=== PATIENT | male | born 1960 | race African-American/Black ===

== ENCOUNTER 2016-12-31 09:46 | Day surgery (SDC) | payer MEDICARE ==
[2016-12-31] MEDS ORDERED: DIAZEPAM 5 MG TABLET ONE (09:55)
[2016-12-31] MEDS ORDERED: OXYCODONE-ACETAMINOPHEN 5-325 MG TABLET ONE (09:55)
[2016-12-31 10:24] LABS: HEMATOCRIT 48.1 % (37.9-51.0); HEMOGLOBIN 16.5 g/dL (13.5-17.0); HGB HCT DIFFERENCE 1.4; MEAN CORPUSCULAR HEMOGLOBIN 31.1 pg (27.0-33.4); MEAN CORPUSCULAR HGB CONC 34.2 g/dL (32.0-36.0); MEAN CORPUSCULAR VOLUME 91 fl (80-97); RED BLOOD COUNT 5.29 10^6/uL (4.35-5.55); WHITE BLOOD COUNT 5.5 10^3/uL (4.0-10.5)
[2016-12-31 10:38] LABS: BLOOD UREA NITROGEN 42 mg/dL (7-20); CALCIUM 8.6 mg/dL (8.4-10.2); CREATININE RESULT 12.36 mg/dL (0.52-1.25); GLUCOSE 81 mg/dL (75-110)
[2016-12-31 10:46] LABS: ANION GAP 19 (5-19); CARBON DIOXIDE 27 mmol/L (22-30); CHLORIDE 94 mmol/L (98-107); POTASSIUM 4.8 mmol/L (3.6-5.0); SODIUM 140.3 mmol/L (137-145)
[2016-12-31] MEDS ORDERED: MIDAZOLAM 2 MG/2 ML INJ ONE (11:00)
[2016-12-31] MEDS ORDERED: HEPARIN SOD (PORCINE) 5,000 UNIT/ML 1 ML SYRINGE ONE (11:01)
[2016-12-31] MEDS ORDERED: FENTANYL CITRATE INJ/PF 100 MCG/2 ML AMPUL ONE (11:01)
[2016-12-31] MEDS ORDERED: LIDOCAINE 0.5% INJ-PF (5 MG/ML) 50 ML SDV ONE (11:14)
--- NOTE | 2016-12-31 12:31 | PDOC H&P ---
General Chief Complaint: This patient was referred for improvement of the right arm AV fistula. Suboptimal dialysis has been noted recently. - Current Medications/Allergies Home Medications: B Complex & C No.20/Folic Acid [Renal Caps Softgel] 1 mg PO DAILY 08/06/14 Cinacalcet HCl [Sensipar 30 mg Tablet] 30 mg PO ACLUNCH 08/06/14 Clonidine HCl [Catapres 0.2 mg Tablet] 0.2 mg PO DAILY 08/06/14 Lisinopril 10 mg PO DAILY 08/06/14 Simvastatin 20 mg PO QHS 08/06/14 Vasacor 01/03/16 Allergies/Adverse Reactions: No Known Drug Allergies Allergy (Verified 09/28/13 18:03) Paper Tape Allergy (Unknown, Uncoded 09/28/13 18:03) DRY GAMBRO DIALYZERS Allergy (Uncoded 08/06/14 10:52) Past Medical History Cardiac Medical History: Reports: Hyperlipidema, Hypertension Denies: Coronary Artery Disease, Myocardial Infarction Pulmonary Medical History: Reports: Asthma - Hx of, Pneumonia - Hx of 09/2013 Denies: Bronchitis, Chronic Obstructive Pulmonary Disease (COPD) Neurological Medical History: Denies: Seizures Renal/ Medical History: Reports: End Stage Renal Disease Musculoskeltal Medical History: Denies: Arthritis Hematology: Denies: Anemia Past Surgical History Past Surgical History: Reports: Vascular Surgery - Right upper arm AV fistula Family History Family History: Reviewed & Not Pertinent Parental Family History Reviewed: No Children Family History Reviewed: No Sibling(s) Family History Reviewed.: No Social History Smoking Status: Current Every Day Smoker Frequency of Alcohol Use: None Hx Recreational Drug Use: No Hx Prescription Drug Abuse: No Physical Exam Vital Signs: Temp Pulse Resp BP Pulse Ox 98.6 F 72 18 147/75 H 98 12/31/16 10:00 12/31/16 12:06 12/31/16 10:00 12/31/16 10:00 12/31/16 10:00 Intake & Output 12/30/16 12/31/16 01/01/17 06:59 06:59 06:59 Weight 107.955 kg Additional comments: Constitutional: A well-developed well-nourished -[place] gentleman, much increased body mass index, gentleman. No acute distress. Eyes: Mucous membranes pink and moist, sclerae anicteric, pupils react normally. Respiratory: No shortness of breath or wheezing. Breath sounds are normal and equal. Cardiac: Heart sounds normal, no murmurs, no increased JVP. Extremities: Upper extremities shows normal range of movement and pulses. The right arm has a cephalic to brachial fistula which is aneurysmal. Bruit normal. Firm to palpation. Psychiatric: judgment, memory, insight seem normal. Mood is normal, appropriate and pleasant. Impression/Plan Impression: #1 malfunctioning arteriovenous fistula, right brachiocephalic. #2 end-stage renal disease on hemodialysis. #3 hypertension. Plan: This patient with a malfunctioning AV fistula is indicated for angiogram and possible angioplasty. The objective is prolonged useful function of the fistula.
--- NOTE | 2016-12-31 12:34 | Operative Report ---
Operative Report DATE OF SURGERY: 12/31/16 PREOPERATIVE DIAGNOSIS: #1 malfunctioning arteriovenous fistula, right brachiocephalic. #2 end-stage renal disease on hemodialysis. #3 hypertension. POSTOPERATIVE DIAGNOSIS: #1 malfunctioning arteriovenous fistula, right brachiocephalic. #2 end-stage renal disease on hemodialysis. #3 hypertension. OPERATION: #1 needle access into fistula. #2 angioplasty central venous. #3 angiogram and interpretation. SURGEON: CORNELIO YEH HYBRID CAR MECHANIC: none ANESTHESIA: Moderate Sedation TISSUE REMOVED OR ALTERED: None COMPLICATIONS: None ESTIMATED BLOOD LOSS: 2 mL INTRAOPERATIVE FINDINGS: Of a well-founded right arm brachiocephalic fistula.. A large caliber. A waist encountered at the right subclavian to innominate junction which is addressed by angioplasty with improved flow. The stenosis did not seem great no more than about 50% but the hemodynamic consequence was evidence in improvement in fistula function. PROCEDURE: PROCEDURE: After verifying the procedure and having obtained informed consent, the patient's right arm was prepared with Chlorhexidine and draped out with sterile linen. Local anesthesia infiltrated. Percutaneous access into the fistula ,[ antegrade], obtained about [10 cm] from the arteriovenous anastomosis using a 18-gauge needle. A 0.035 [place] wire was inserted, and over this, a 7 [place] short introducer was placed, this was followed by a [8-mm ] angioplasty balloon . Angioplasty was serially done from the innominate subclavian junction to the upper arm.. Inflating up to 14 atmospheres for a minute at a time.]. Completion angiogram demonstrated [satisfactory result]. The instrumentation was now withdrawn over hand-held pressure for 10 minutes. Dressings applied, procedure concluded. Exposure time: 1 minute Radiation: 83 breonna per centimeter squared Contrast: 25 mL of Isovue-M 300, low osmolality. DICTATING PHYSICIAN: CORNELIO CHESTER M.D. cc: CORNELIO CHESTER M.D. ([id number]) >>
--- NOTE | 2016-12-31 12:36 | PDOC DISCHARGE SUMMARY ---
Discharge Summary (SDC) - Discharge Final Diagnosis: #1 malfunctioning arteriovenous fistula, right brachiocephalic. #2 end-stage renal disease on hemodialysis. #3 hypertension. Date of Surgery: 12/31/16 Discharge Date: 12/31/16 Condition: Good Treatment or Instructions: #1 discharge patient home after achieving ASU criteria. #2 continue medications per medication reconciliation sheet. #3 follow-up in office by appointment in about 1 month, call for appointment. #4 dressing to be left on until dialysis. #5 continue scheduled hemodialysis. Discharge Diet: Other (Comments) - Renal Respiratory Treatments at Home: Deep Breathing/Coughing Discharge Activity: Activity As Tolerated Report the Following to Your Physician Immediately: Unusual Bleeding
[2016-12-31 13:07] VITALS: BP 153/89
== END 2016-12-31 13:00 | disposition home or self-care (01) ==
LOC: CCL 09:46
PROVIDERS: ATTEND Surgery
PROC: 057D3DZ Dilation of Right Cephalic Vein with Intraluminal Device, Percutaneous Approach (ICD-10-PCS; principal; 2016-12-31)
DX: T82.858A Stenosis of other vascular prosthetic devices, implants and grafts, initial encounter (principal); Y83.2 Surgical operation with anastomosis, bypass or graft as the cause of abnormal reaction of the patient, or of later complication, without mention of misadventure at the time of the procedure; I10 Essential (primary) hypertension; N18.6 End stage renal disease; E78.5 Hyperlipidemia, unspecified; J45.909 Unspecified asthma, uncomplicated; Z99.2 Dependence on renal dialysis; Z79.899 Other long term (current) drug therapy
CPT/HCPCS: 36415; 85027; 80048; 36907; 36902; C1725; C1752; C1894; Q9967; C1769; J2250; J1644 ×2; A9270 ×2; J3010; J3490

== ENCOUNTER 2017-01-14 16:38 | Emergency (ER) | payer MEDICARE ==
[2017-01-14 16:49] VITALS: BP 162/84
--- NOTE | 2017-01-14 17:51 | ER Document Report ---
ED Medical Screen (RME) - General Chief Complaint: Skin Problem Stated Complaint: RIGHT ARM PAIN/INSECT BITE Time Seen by Provider: 01/14/17 17:48 Mode of Arrival: Ambulatory Notes: PRESENTS WITH ABSCESS TO CHIN SINCE LAST FRIDAY AFTER INSECT BITE TRAVEL OUTSIDE OF THE [place] IN LAST 30 DAYS: No - Related Data Allergies/Adverse Reactions: No Known Drug Allergies Allergy (Verified 09/28/13 18:03) Paper Tape Allergy (Unknown, Uncoded 09/28/13 18:03) DRY GAMBRO DIALYZERS Allergy (Uncoded 08/06/14 10:52) Past Medical History - Past Medical History Cardiac Medical History: Reports: Hx Hypercholesterolemia, Hx Hypertension Denies: Hx Coronary Artery Disease, Hx Heart Attack Pulmonary Medical History: Reports: Hx Asthma - Hx of, Hx Pneumonia - Hx of 2013 Denies: Hx Bronchitis, Hx COPD Neurological Medical History: Denies: Hx Cerebrovascular Accident, Hx Seizures Renal/ Medical History: Reports: Hx End Stage Renal Disease, Hx Hemodialysis. Denies: Hx Peritoneal Dialysis Musculoskeltal Medical History: Denies Hx Arthritis Past Surgical History: Reports: Hx Neurologic Surgery - Benign brain tumor removed 2010, Hx Vascular Surgery - Right upper arm AV fistula - Immunizations Hx Diphtheria, Pertussis, Tetanus Vaccination: Yes Physical Exam - Vital signs Vitals: Temp Pulse Resp BP Pulse Ox 98.5 F 93 16 162/84 H 99 01/14/17 16:47 01/14/17 16:47 01/14/17 16:47 01/14/17 16:47 01/14/17 16:47 Course - Vital Signs Vital signs: Temp Pulse Resp BP Pulse Ox 98.5 F 93 16 162/84 H 99 01/14/17 16:47 01/14/17 16:47 01/14/17 16:47 01/14/17 16:47 01/14/17 16:47
[2017-01-14] MEDS ORDERED: MUPIROCIN 2% OINTMENT 22 GM TP ONE (18:09)
--- NOTE | 2017-01-14 18:16 | ER Document Report ---
HPI - HPI Patient complains to provider of: draining wound to chin Onset: Other Onset/Duration: Persistent Quality of pain: Burning Severity: Moderate Pain Level: 3 Context: Patient states he was stung by something on his chin last . Bump came up on Friday, and he has been picking at it. Now wound is draining. Associated Symptoms: None Exacerbated by: Denies Relieved by: Denies Similar symptoms previously: Yes Recently seen / treated by doctor: No - ROS ROS below otherwise negative: Yes Systems Reviewed and Negative: Yes All other systems reviewed and negative - CONSTITUTIONAL Constitutional: DENIES: Fever - EENT EENT: DENIES: Congestion - NEURO Neurology: DENIES: Headache - CARDIOVASCULAR Cardiovascular: DENIES: Chest pain - RESPIRATORY Respiratory: DENIES: Trouble Breathing - GASTROINTESTINAL Gastrointestinal: DENIES: Abdominal Pain - URINARY Urinary: DENIES: Dysuria - MUSCULOSKELETAL Musculoskeletal: DENIES: Extremity pain - DERM Skin Color: Normal, Erythema Skin Problems: Rash - Chin Past Medical History - General Information source: Patient - Social History Smoking Status: Current Every Day Smoker Cigarette use (# per day): Yes Frequency of alcohol use: Occasional Drug Abuse: None Lives with: Family Family History: Reviewed & Not Pertinent Patient has suicidal ideation: No Patient has homicidal ideation: No - Past Medical History Cardiac Medical History: Reports: Hx Hypercholesterolemia, Hx Hypertension Pulmonary Medical History: Reports: Hx Asthma - Hx of, Hx Pneumonia - Hx of 2013 Renal/ Medical History: Reports: Hx End Stage Renal Disease, Hx Hemodialysis. Denies: Hx Peritoneal Dialysis Past Surgical History: Reports: Hx Neurologic Surgery - Benign brain tumor removed 2010, Hx Vascular Surgery - Right upper arm AV fistula - Immunizations Hx Diphtheria, Pertussis, Tetanus Vaccination: Yes Hx Pneumococcal Vaccination: 01/20/10 Vertical Provider Document - CONSTITUTIONAL Agree With Documented VS: Yes Exam Limitations: No Limitations General Appearance: WD/WN, No Apparent Distress - INFECTION CONTROL TRAVEL OUTSIDE OF THE [place] IN LAST 30 DAYS: No - HEENT HEENT: Atraumatic, Normal ENT Exam, Normocephalic - RESPIRATORY Respiratory: Breath Sounds Normal, No Respiratory Distress O2 Sat by Pulse Oximetry: 99 - CARDIOVASCULAR Cardiovascular: Regular Rate, Regular Rhythm - GI/ABDOMEN Gastrointestinal: Abdomen Soft - MUSCULOSKELETAL/EXTREMETIES Musculoskeletal/Extremeties: LEA ZAYAS - NEURO Level of Consciousness: Awake, Alert, Appropriate - DERM Integumentary: Warm, Dry, Abscess - Draining abscess to chin. Course - Re-evaluation Re-evalutation: 01/14/17 18:13 Wound Cleansed with Shur-Clens and normal saline. Small amount of drainage expressed, wound culture obtained. Patient tolerated procedure well. Bactroban applied to wound. - Vital Signs Vital signs: Temp Pulse Resp BP Pulse Ox 98.5 F 93 16 162/84 H 99 01/14/17 16:47 01/14/17 16:47 01/14/17 16:47 01/14/17 16:47 01/14/17 16:47 Discharge - Discharge Clinical Impression: Abscess of chin Condition: Good Disposition: HOME, SELF-CARE Instructions: Abscess ([facility]) Additional Instructions: Take antibiotics as prescribed Apply Bactroban to clean wound 3 times a day Warm compresses to wound, do not pick at any skin lesions Follow-up with your doctor Friday for recheck Will call with culture results, it usually takes 3 days to get those back Return as needed Prescriptions: Doxycycline Hyclate 100 mg PO BID #20 tablet.
== END 2017-01-14 18:33 | disposition home or self-care (01) ==
LOC: ER 16:38
DX: L02.01 Cutaneous abscess of face (principal); S00.86XA Insect bite (nonvenomous) of other part of head, initial encounter; W57.XXXA Bitten or stung by nonvenomous insect and other nonvenomous arthropods, initial encounter; F17.210 Nicotine dependence, cigarettes, uncomplicated
CPT/HCPCS: 99283; 87070; 87205; 87075; 87077; 87186; A9270; J3490

== ENCOUNTER 2017-05-26 07:32 | Day surgery (SDC) | payer MEDICARE ==
[2017-05-26 07:24] LABS: HEMOGLOBIN 15.9 g/dL (13.5-17.0); HGB HCT DIFFERENCE 1.7; MEAN CORPUSCULAR HEMOGLOBIN 31.9 pg (27.0-33.4); MEAN CORPUSCULAR HGB CONC 34.5 g/dL (32.0-36.0); MEAN CORPUSCULAR VOLUME 93 fl (80-97); RED BLOOD COUNT 4.97 10^6/uL (4.35-5.55); RED CELL DISTRIBUTION WIDTH 14.5 % (11.5-14.0); WHITE BLOOD COUNT 5.1 10^3/uL (4.0-10.5)
[2017-05-26 07:44] LABS: ANION GAP 17 (5-19); BLOOD UREA NITROGEN 57 mg/dL (7-20); CALCIUM 9.7 mg/dL (8.4-10.2); CARBON DIOXIDE 28 mmol/L (22-30); CHLORIDE 94 mmol/L (98-107); GLUCOSE 89 mg/dL (75-110); POTASSIUM 5.6 mmol/L (3.6-5.0); SODIUM 139.2 mmol/L (137-145)
[2017-05-26 07:52] LABS: CREATININE RESULT 15.66 mg/dL (0.52-1.25)
[2017-05-26] MEDS ORDERED: MIDAZOLAM 2 MG/2 ML INJ ONE (08:22)
[2017-05-26] MEDS ORDERED: FENTANYL CITRATE INJ/PF 100 MCG/2 ML AMPUL ONE (08:22)
[2017-05-26] MEDS ORDERED: LIDOCAINE 0.5% INJ-PF (5 MG/ML) 50 ML SDV ONE (08:22)
[2017-05-26] MEDS ORDERED: HEPARIN SOD (PORCINE) 5,000 UNIT/ML 1 ML SYRINGE ONE (08:22)
--- NOTE | 2017-05-26 08:56 | PDOC H&P ---
General Chief Complaint: The patient is referred across for reduce access flows. He last had an angioplasty about 4 months ago. This is in the brachiocephalic segment. - Current Medications/Allergies Home Medications: Cinacalcet HCl [Sensipar 30 mg Tablet] 30 mg PO ACLUNCH 08/06/14 Clonidine HCl [Catapres 0.2 mg Tablet] 0.2 mg PO DAILY 08/06/14 Lisinopril 10 mg PO DAILY 08/06/14 Simvastatin 20 mg PO QHS 08/06/14 Vasacor 01/03/16 Allergies/Adverse Reactions: DRY GAMBRO DIALYZERS Allergy (Unknown, Uncoded 05/26/17 07:30) PAPER TAPE Allergy (Uncoded 05/26/17 07:30) Past Medical History Cardiac Medical History: Reports: Hyperlipidema, Hypertension Denies: Coronary Artery Disease, Myocardial Infarction Pulmonary Medical History: Denies: Asthma, Bronchitis, Chronic Obstructive Pulmonary Disease (COPD), Pneumonia Neurological Medical History: Denies: Seizures Renal/ Medical History: Reports: End Stage Renal Disease Musculoskeltal Medical History: Denies: Arthritis Hematology: Denies: Anemia Past Surgical History Past Surgical History: Reports: Vascular Surgery - Right upper arm AV fistula Family History Family History: Reviewed & Not Pertinent Parental Family History Reviewed: No Children Family History Reviewed: No Sibling(s) Family History Reviewed.: No Social History Smoking Status: Current Every Day Smoker Frequency of Alcohol Use: None Hx Recreational Drug Use: No Hx Prescription Drug Abuse: No Physical Exam Vital Signs: Temp Pulse Resp BP Pulse Ox 98.5 F 76 16 130/84 H 99 05/26/17 08:45 05/26/17 08:45 05/26/17 08:45 05/26/17 08:45 05/26/17 08:45 Intake & Output 05/25/17 05/26/17 05/27/17 06:59 06:59 06:59 Weight 103.3 kg Additional comments: Constitutional: Well-developed well-nourished -[place] gentleman. No apparent acute distress. Eyes: Mucous membranes pink and moist, pupils equal and reactive to light. Conjunctiva normal. Cornea normal. ENT: Hearing grossly normal. External pinna normal to inspection. Teeth missing tongue normal to inspection. Cardiac: Heart sounds 1 and 2 normal, no murmurs. Respiratory breath sounds are present bilaterally, normal. Normal respiratory effort. Psychiatric: Judgment, memory, insight seem normal. Mood is pleasant and appropriate. Extremities: Upper extremities show normal range of movement. Pulses present noted to the radial arteries. Capillary refill normal. No cyanosis noted. No muscle wasting noted. Very large right arm radiocephalic fistula. Somewhat firm suggestive of cephalad stenosis. Large easily in excess of 2 cm in the lower arm. Almost a brynn fistula. . Impression/Plan Impression: #1 malfunctioning arteriovenous fistula, right brachiocephalic. 2. End-stage renal disease on hemodialysis. 3. Hypertension. Plan: The patient is to undergo angiogram possible angioplasty. Was probably will do antegrade initially and consider doing retrograde if no significant lesions are found antegrade. The patient understands the procedure. Wishes to go ahead. The risks, benefits , expected outcome and alternatives are familiar to him. ..
--- NOTE | 2017-05-26 10:24 | Operative Report ---
Operative Report DATE OF SURGERY: 05/26/17 PREOPERATIVE DIAGNOSIS: #1 malfunctioning arteriovenous fistula, right brachiocephalic. 2. End-stage renal disease on hemodialysis. 3. Hypertension. POSTOPERATIVE DIAGNOSIS: #1 malfunctioning arteriovenous fistula, right brachiocephalic.Post angioplasty. 2. End-stage renal disease on hemodialysis. 3. Hypertension. OPERATION: 1. Needle access into fistula. 2. Second needle access into fistula. 3. Angioplasty, centrally in the superior vena cava and right subclavian veins. 4. Angiogram and interpretation. SURGEON: CORNELIO YEH DIE MACHINE OPERATOR: None ANESTHESIA: Moderate Sedation TISSUE REMOVED OR ALTERED: Not applicable. COMPLICATIONS: None ESTIMATED BLOOD LOSS: 5 mL. INTRAOPERATIVE FINDINGS: Of a well founded right arm brachial basilic fistula. Somewhat firm suggesting cephalad stenosis. Angiogram was challenging because of his medical fistula requiring more contrast than normal and also the patient' s size making visual visualization somewhat challenging as especially the central system. The actual anastomosis was not seen. Partially also was difficult to get into the [place] artery because of tortuosity of the size of the fistula. A diligent attempt was made using a Kumpe catheter as well as on the Glidewire. A very large basilic vein comes off about 2 cm above the anastomosis. This reduces flow in the [place] fistula. Centrally stenosis are noted at the subclavian arm high also 1 proximal. Each of these approximately 70% of the adjacent lumen. This seems to be eradicated by angioplasty. The visualization was somewhat centrally. There may have been some mild extravasation as well. Overall the procedure was well-tolerated the patient felt fine at the end of the procedure. The quality of the fistula pulsation was somewhat improved. PROCEDURE: PROCEDURE: After verifying the procedure and having obtained informed consent, the patient's right arm access was obtained was prepared with Chlorhexidine and draped out with sterile linen. Local anesthesia infiltrated. The antegrade direction using a micropuncture needle, micropuncture wire. Angiograms were done but due to dilution difficult to visualize cephalad. A 7 mm introducer was now placed over the Glidewire and a Kumpe catheter to reduce. This allowed more detailed evaluation of the central system with the findings as above. Percutaneous access into the fistula ,[retrograde], obtained about 12 cm] from the arteriovenous anastomosis using a micro puncture needle followed by micro puncture wire and then a micro puncture catheter. Angiogram demonstrated the aforementioned findings. Angioplasty was elected scheduling. A 0.035 [place] wire was inserted, and 9 followed by a [7-mm] angioplasty balloon . Angioplasty was Done. Inflating using a 3 mils syringe and up to 2 minutes at a time.]. Completion angiogram demonstrated [satisfactory result]. The instrumentation was now withdrawn over pressure for 10 minutes. Dressings applied, procedure concluded. Exposure time: 11.2 minutes Radiation: 3.4 Contrast: 60 mL milliliters of Isovue-300, low osmolality. DICTATING PHYSICIAN: CORNELIO CHESTER M.D. cc: CORNELIO CHESTER M.D. ([id number]) >>
--- NOTE | 2017-05-26 10:28 | PDOC DISCHARGE SUMMARY ---
Discharge Summary (SDC) - Discharge Final Diagnosis: #1 malfunctioning arteriovenous fistula, right brachiocephalic. 2. End-stage renal disease on hemodialysis. 3. Hypertension. Date of Surgery: 05/26/17 Discharge Date: 05/26/17 Condition: Good Treatment or Instructions: Discharge home [after recovery per ASU criteria]. Diet , [renal],as tolerated, when fully awake advance as tolerated. Activities within moderation encouraged. Follow up in my office by appointment in about [1 week]. Call for appointment. Leave wounds [covered], [keep clean and dry, until hemodialysis]. Hold of on school/work [until evaluation in office]. May shower [in 48 hrs], [try to keep operated area as dry as possible]. Referrals: СВЕТЛАНА WHEELER MD [Primary Care Provider] - Discharge Diet: Other (Comments) - Renal Respiratory Treatments at Home: Deep Breathing/Coughing Discharge Activity: Activity As Tolerated Report the Following to Your Physician Immediately: Shortness of Breath, Unusual Bleeding
[2017-05-26 11:56] VITALS: BP 131/77
--- NOTE | 2017-05-26 16:13 | RADIOLOGY REPORT (SQ) ---
EXAM DESCRIPTION: FISTULAGRAM W/PLASTY; ANGIOPLASTY BRACHIOCEPHALIC COMPLETED DATE/TIME: 05/26/2017 3:04 pm REASON FOR STUDY: T82.858A T82.858A STENOSIS OF OTHER VASCULAR PROSTH DEV/GRFT, INIT COMPARISON: None. FLUOROSCOPY TIME: 11.2 minutes. 17 images saved to PACS. TECHNIQUE: Intra-operative images acquired during surgical procedure to evaluate progress. NUMBER OF IMAGES: 17 LIMITATIONS: None. FINDINGS: Imaging in fluoroscopy during upper extremity dialysis access evaluation and plasty by Dr Shaina Topete . Please refer to the operative report for further details. IMPRESSION: INTRA PROCEDURAL IMAGING ABOVE . COMMENT: Quality ID [id number]: Final reports for procedures using fluoroscopy that document radiation exp osure indices, or exposure time and number of fluorographic images (if radiation exposure indices are not available) Please consult full operative report of the attending physician for description of the procedure. TECHNICAL DOCUMENTATION: JOB ID: [id number] [employer]- All Rights Reserved
== END 2017-05-26 11:55 | disposition home or self-care (01) ==
LOC: SC 07:32
PROVIDERS: ATTEND Surgery
PROC: 05753DZ Dilation of Right Subclavian Vein with Intraluminal Device, Percutaneous Approach (ICD-10-PCS; principal; 2017-05-26)
DX: T82.858A Stenosis of other vascular prosthetic devices, implants and grafts, initial encounter (principal); Y83.2 Surgical operation with anastomosis, bypass or graft as the cause of abnormal reaction of the patient, or of later complication, without mention of misadventure at the time of the procedure; I12.0 Hypertensive chronic kidney disease with stage 5 chronic kidney disease or end stage renal disease; N18.6 End stage renal disease; F17.210 Nicotine dependence, cigarettes, uncomplicated; E78.5 Hyperlipidemia, unspecified; Z88.8 Allergy status to other drugs, medicaments and biological substances; Z79.899 Other long term (current) drug therapy; Z99.2 Dependence on renal dialysis
CPT/HCPCS: 36415; 85027; 80048; 36907; 36902; C1752; C1894; C1887; Q9967; C1769; J2250; J1644 ×2; J3010; J3490

== ENCOUNTER 2017-06-03 18:37 | Emergency (ER) | payer MEDICARE ==
--- NOTE | 2017-06-03 19:20 | ER Document Report ---
ED Medical Screen (RME) - General Chief Complaint: Dialysis Catheter Problem Stated Complaint: BLEEDING FROM CATHETER SITE Time Seen by Provider: 06/03/17 19:18 Notes: Patient presents with several problems. History was somewhat difficult to follow as relayed by the patient. Apparently patient dialysis access in his right arm has become significantly clotted and he had significant swelling of the right arm. He states the right arm still hurts but it is less swollen than it was. He states he was seen at [facility] today for an interventional radiology procedure but they are unable to unclog his right arm fistula. Therefore a port was placed in his right subclavian vein. This is now begun to have some hemorrhage around the insertion site. Patient also states she has been having chronic headaches ever since his right arm began to swell. He states he has not had any dialysis in 6 days. He states he is scheduled for dialysis tomorrow. TRAVEL OUTSIDE OF THE [place] IN LAST 30 DAYS: No - Related Data Allergies/Adverse Reactions: DRY GAMBRO DIALYZERS Allergy (Unknown, Uncoded 06/03/17 18:47) PAPER TAPE Allergy (Uncoded 06/03/17 18:47) Past Medical History - Past Medical History Cardiac Medical History: Reports: Hx Hypercholesterolemia, Hx Hypertension Denies: Hx Coronary Artery Disease, Hx Heart Attack Pulmonary Medical History: Denies: Hx Asthma, Hx Bronchitis, Hx COPD, Hx Pneumonia Neurological Medical History: Denies: Hx Cerebrovascular Accident, Hx Seizures Renal/ Medical History: Reports: Hx End Stage Renal Disease, Hx Hemodialysis. Denies: Hx Peritoneal Dialysis Musculoskeltal Medical History: Denies Hx Arthritis Past Surgical History: Reports: Hx Neurologic Surgery - Benign brain tumor removed 2010, Hx Vascular Surgery - Right upper arm AV fistula - Immunizations Hx Diphtheria, Pertussis, Tetanus Vaccination: Yes Physical Exam - Vital signs Vitals: Temp Pulse Resp BP Pulse Ox 98.7 F 88 20 162/103 H 96 06/03/17 18:47 06/03/17 18:47 06/03/17 18:47 06/03/17 18:47 06/03/17 18:47 Course - Vital Signs Vital signs: Temp Pulse Resp BP Pulse Ox 98.7 F 88 20 162/103 H 96 06/03/17 18:47 06/03/17 18:47 06/03/17 18:47 06/03/17 18:47 06/03/17 18:47
[2017-06-03] MEDS ORDERED: TRANEXAMIC ACID INJ/PF 1,000 MG/10 ML SDV IV ONE (19:29)
[2017-06-03] MEDS ORDERED: THROMBIN (BOVINE) TOPICAL 5000 UNIT VIAL TP ONE (19:29)
--- NOTE | 2017-06-03 19:41 | ER Document Report ---
ED Dialysis Cath/Shunt Problem - General Chief Complaint: Dialysis Catheter Problem Stated Complaint: BLEEDING FROM CATHETER SITE Time Seen by Provider: 06/03/17 19:18 Notes: The patient is a 56-year-old male, PMHx ESRD, presents with oozing from his dialysis catheter that was placed earlier today at [facility] clinic as an outpatient. His other dialysis access was clotted. He is due for dialysis tomorrow. He is also complaining of a dull frontal headache, which he says that he has frequently, and is requesting Tylenol. Denies lightheadedness , chest pain, blood thinner use, nausea, vomiting, blurry vision, focal weakness , numbness, tingling or abdominal pain. TRAVEL OUTSIDE OF THE [place] IN LAST 30 DAYS: No - Related Data Allergies/Adverse Reactions: DRY GAMBRO DIALYZERS Allergy (Unknown, Uncoded 06/03/17 18:47) PAPER TAPE Allergy (Uncoded 06/03/17 18:47) Past Medical History - General Information source: Patient - Social History Smoking Status: Unknown if Ever Smoked Family History: Reviewed & Not Pertinent Patient has suicidal ideation: No Patient has homicidal ideation: No - Past Medical History Cardiac Medical History: Reports: Hx Hypercholesterolemia, Hx Hypertension Denies: Hx Coronary Artery Disease, Hx Heart Attack Pulmonary Medical History: Denies: Hx Asthma, Hx Bronchitis, Hx COPD, Hx Pneumonia Neurological Medical History: Denies: Hx Cerebrovascular Accident, Hx Seizures Renal/ Medical History: Reports: Hx End Stage Renal Disease, Hx Hemodialysis. Denies: Hx Peritoneal Dialysis Musculoskeltal Medical History: Denies Hx Arthritis Past Surgical History: Reports: Hx Neurologic Surgery - Benign brain tumor removed 2010, Hx Vascular Surgery - Right upper arm AV fistula - Immunizations Hx Diphtheria, Pertussis, Tetanus Vaccination: Yes Hx Pneumococcal Vaccination: 02/07/16 Review of Systems - Review of Systems Notes: REVIEW OF SYSTEMS: CONSTITUTIONAL: -fevers, -chills EENT: -eye pain, -difficulty swallowing, -nasal congestion CARDIOVASCULAR:-chest pain, -syncope. RESPIRATORY: -cough, -SOB GASTROINTESTINAL: -abdominal pain, - nausea, -vomiting, -diarrhea MUSCULOSKELETAL: -back pain, -neck pain SKIN: -rash or skin lesions. HEMATOLOGIC: -easy bruising or bleeding. LYMPHATIC: -swollen, enlarged glands. NEUROLOGICAL: -altered mental status or loss of consciousness, -headache, - neurologic symptoms PSYCHIATRIC: -anxiety, -depression. ALL OTHER SYSTEMS REVIEWED AND NEGATIVE. Physical Exam - Vital signs Vitals: Temp Pulse Resp BP Pulse Ox 98.7 F 88 20 162/103 H 96 06/03/17 18:47 06/03/17 18:47 06/03/17 18:47 06/03/17 18:47 06/03/17 18:47 - Notes Notes: PHYSICAL EXAMINATION: GENERAL: Well-appearing, well-nourished and in no acute distress. HEAD: Atraumatic, normocephalic. EYES: Pupils equal round and reactive to light, extraocular movements intact, sclera anicteric, conjunctiva are normal. ENT: nares patent, oropharynx clear without exudates. Moist mucous membranes. NECK: Normal range of motion, supple without lymphadenopathy CHEST: Right dialysis catheter with a small amount of oozing from site where catheter enters skin. LUNGS: Breath sounds clear to auscultation bilaterally and equal. No wheezes rales or rhonchi. HEART: Regular rate and rhythm without murmurs ABDOMEN: Soft, nontender, normoactive bowel sounds. No guarding, no rebound. No masses appreciated. EXTREMITIES: Normal range of motion, no pitting or edema. No cyanosis. NEUROLOGICAL: Cranial nerves grossly intact. Normal speech, normal gait. Normal sensory and motor exams. PSYCH: Normal mood, normal affect. SKIN: Warm, Dry, normal turgor, no rashes or lesions noted. Course - Re-evaluation Re-evalutation: Patient's small amount of oozing from his dialysis catheter resolved after thrombin and TXA were applied to a 4 x 4 and placed over his catheter site. No signs of anemia. His headache resolved after Tylenol. Do not suspect SAH, ICH or meningitis at this time. Instructed him to follow-up with his surgeon for any additional issues and go to dialysis tomorrow. Given strict return precautions and he understands. - Vital Signs Vital signs: Temp Pulse Resp BP Pulse Ox 98.7 F 88 20 162/103 H 96 06/03/17 18:47 06/03/17 18:47 06/03/17 18:47 06/03/17 18:47 06/03/17 18:47 Discharge - Discharge Clinical Impression: Bleeding due to dialysis catheter placement Qualifiers: Encounter type: initial encounter Qualified Code(s): T82.838A - Hemorrhage due to vascular prosthetic devices, implants and grafts, initial encounter Headache Qualifiers: Headache type: unspecified Headache chronicity pattern: chronic headache Intractability: not intractable Qualified Code(s): R51 - Headache Condition: Stable Disposition: HOME, SELF-CARE Additional Instructions: Keep the dressing in place tonight. If the bleeding returns, apply pressure and return to the ER if the bleeding does not stop. Follow-up with your surgeon and go to dialysis tomorrow. HEADACHE: The physician does not feel that the headache you are experiencing has a serious underlying cause. Most headaches are due to emotional stress, with resultant muscle tension (tension headache). Occasionally, headaches are secondary to changes in the blood vessels of the scalp (vascular headache and migraine headache). Sometimes, a headache is the first symptom of another developing illness, such as a viral infection. You have no evidence of stroke, bleeding, meningitis, or other serious cause of your headache. The treatment of headaches varies with the severity and cause of the pain. Not all headaches need pain shots. In fact, there is evidence that using narcotics for headaches may make them worse in the long run. The physician will determine the therapy that's in your best interest. If you develop a fever, if the headache is different from any you've previously experienced, or if the headache progressively worsens, then call your physician at once or go to the emergency room. FOLLOW-UP CARE: If you have been referred to a physician for follow-up care, call the physician s office for an appointment as you were instructed or within the next two days. If you experience worsening or a significant change in your symptoms, notify the physician immediately or return to the Emergency Department at any time for re-evaluation. Forms: Elevated Blood Pressure
[2017-06-03] MEDS ORDERED: ACETAMINOPHEN 325 MG TABLET PO ONE (19:57)
[2017-06-03 21:15] VITALS: BP 175/90
== END 2017-06-03 21:24 | disposition home or self-care (01) ==
LOC: ER 18:37
DX: T82.838A Hemorrhage due to vascular prosthetic devices, implants and grafts, initial encounter (principal); Y84.1 Kidney dialysis as the cause of abnormal reaction of the patient, or of later complication, without mention of misadventure at the time of the procedure; I12.0 Hypertensive chronic kidney disease with stage 5 chronic kidney disease or end stage renal disease; N18.6 End stage renal disease; Z99.2 Dependence on renal dialysis; R51 Headache; Z91.048 Other nonmedicinal substance allergy status; Z88.8 Allergy status to other drugs, medicaments and biological substances
CPT/HCPCS: 99284; A9270

== ENCOUNTER 2017-06-04 06:14 | Emergency (ER) | payer MEDICARE ==
[2017-06-04] MEDS ORDERED: LIDOCAINE 1% INJ-PF (10 MG/ML) 30 ML SDV INJ ONE (06:35)
--- NOTE | 2017-06-04 06:38 | ER Document Report ---
ED General - General Chief Complaint: Dialysis Shunt Problem Stated Complaint: BLEEDING FROM PORT SITE Time Seen by Provider: 06/04/17 06:30 Mode of Arrival: Ambulatory Information source: Patient Notes: 52-year-old male history of chronic kidney disease on dialysis who had dialysis shunt placed at [facility] yesterday presented last night with complaints of bleeding from around the shunt in the right chest, TXA was placed the bleeding had stopped and patient was sent home but awoke this morning with further bleeding. Patient denies any bleeding history TRAVEL OUTSIDE OF THE [place] IN LAST 30 DAYS: No - HPI Onset: Yesterday Onset/Duration: Sudden Quality of pain: No pain Severity: Mild Pain Level: Denies Associated symptoms: Other Exacerbated by: Denies Relieved by: Denies Similar symptoms previously: Yes Recently seen / treated by doctor: Yes - Related Data Allergies/Adverse Reactions: DRY GAMBRO DIALYZERS Allergy (Unknown, Uncoded 06/04/17 06:45) PAPER TAPE Allergy (Uncoded 06/04/17 06:45) Past Medical History - Social History Smoking Status: Never Smoker Cigarette use (# per day): No Chew tobacco use (# tins/day): No Smoking Education Provided: No Family History: Reviewed & Not Pertinent Patient has suicidal ideation: No Patient has homicidal ideation: No - Past Medical History Cardiac Medical History: Reports: Hx Hypercholesterolemia, Hx Hypertension Denies: Hx Coronary Artery Disease, Hx Heart Attack Pulmonary Medical History: Denies: Hx Asthma, Hx Bronchitis, Hx COPD, Hx Pneumonia Neurological Medical History: Denies: Hx Cerebrovascular Accident, Hx Seizures Renal/ Medical History: Reports: Hx End Stage Renal Disease, Hx Hemodialysis. Denies: Hx Peritoneal Dialysis Musculoskeltal Medical History: Denies Hx Arthritis Past Surgical History: Reports: Hx Neurologic Surgery - Benign brain tumor removed 2010, Hx Vascular Surgery - Right upper arm AV fistula - Immunizations Hx Diphtheria, Pertussis, Tetanus Vaccination: Yes Hx Pneumococcal Vaccination: 02/07/16 Review of Systems - Review of Systems Notes: REVIEW OF SYSTEMS: CONSTITUTIONAL : Denies fever, chills, or sweats. Denies recent illness. EENT: Denies eye, ear, throat, or mouth pain or symptoms. Denies nasal or sinus congestion or discharge. Denies throat, tongue, or mouth swelling or difficulty swallowing. CARDIOVASCULAR: Denies chest pain. Denies palpitations or racing or irregular heart beat. Denies ankle edema. RESPIRATORY: Denies cough, cold, or chest congestion. Denies shortness of breath, difficulty breathing, or wheezing. GASTROINTESTINAL: Denies abdominal pain or distention. Denies nausea, vomiting , or diarrhea. Denies blood in vomitus, stools, or per rectum. Denies black, tarry stools. Denies constipation. GENITOURINARY: Denies difficulty urinating, painful urination, burning, frequency, blood in urine, or discharge. MUSCULOSKELETAL: Denies back or neck pain or stiffness. Denies joint pain or swelling. SKIN: Denies rash, lesions or sores. HEMATOLOGIC : Bleeding from dialysis access LYMPHATIC: Denies swollen, enlarged glands. NEUROLOGICAL: Denies confusion or altered mental status. Denies passing out or loss of consciousness. Denies dizziness or lightheadedness. Denies headache. Denies weakness or paralysis or loss of use of either side. Denies problems with gait or speech. Denies sensory loss, numbness, or tingling. Denies seizures. PSYCHIATRIC: Denies anxiety or stress. Denies depression, suicidal ideation, or homicidal ideation. ALL OTHER SYSTEMS REVIEWED AND NEGATIVE. Dictation was performed using [employer] voice recognition software PHYSICAL EXAMINATION: GENERAL: Well-appearing, well-nourished and in no acute distress. HEAD: Atraumatic, normocephalic. EYES: Pupils equal round and reactive to light, extraocular movements intact, sclera anicteric, conjunctiva are normal. ENT: Nares patent, oropharynx clear without exudates. Moist mucous membranes. NECK: Normal range of motion, supple without lymphadenopathy LUNGS: Breath sounds clear to auscultation bilaterally and equal. No wheezes rales or rhonchi. HEART: Regular rate and rhythm without murmurs ABDOMEN: Soft, nontender, nondistended abdomen. No guarding, no rebound. No masses appreciated. Musculoskeletal: Normal range of motion, no pitting or edema. No cyanosis. NEUROLOGICAL: Cranial nerves grossly intact. Normal speech, normal gait. Normal sensory, motor exams PSYCH: Normal mood, normal affect. SKIN: Right subclavian dialysis access noted to have bleeding oozing from opening Physical Exam - Vital signs Vitals: Temp Pulse Resp BP Pulse Ox 97.5 F 78 20 171/86 H 97 06/04/17 06:15 06/04/17 06:15 06/04/17 06:15 06/04/17 06:15 06/04/17 06:15 Course - Re-evaluation Re-evalutation: 06/04/17 06:37 Dr de los santos was siting a the desk outside, i requested his assistance 06/04/17 06:52 Surgeon is placing stitches at this time to close the bleeding - Vital Signs Vital signs: Temp Pulse Resp BP Pulse Ox 97.5 F 78 16 169/102 H 97 06/04/17 06:15 06/04/17 06:15 06/04/17 06:42 06/04/17 06:32 06/04/17 06:32 - Laboratory Result Diagrams: 06/04/17 06:40 06/04/17 06:40 Laboratory results interpreted by me: 06/04/17 06:40 RBC 4.16 L Hgb 13.1 L RDW 14.7 H Plt Count 133 L Discharge - Discharge Clinical Impression: End-stage renal disease on hemodialysis Bleeding due to dialysis catheter placement Qualifiers: Encounter type: initial encounter Qualified Code(s): T82.838A - Hemorrhage due to vascular prosthetic devices, implants and grafts, initial encounter Condition: Stable Disposition: HOME, SELF-CARE Additional Instructions: Please go directly to dialysis Return immediately if there are any other concerns
[2017-06-04 06:57] LABS: ABSOLUTE BASOPHILS # (AUTO) 0.1 10^3/uL (0.0-0.2); ABSOLUTE EOSINOPHILS # (AUTO) 0.1 10^3/uL (0.0-0.6); ABSOLUTE LYMPHOCYTES (AUTO) 1.3 10^3/uL (0.5-4.7); ABSOLUTE MONOCYTES (AUTO) 0.7 10^3/uL (0.1-1.4); ABSOLUTE NEUT (AUTO) 5.5 10^3/uL (1.7-8.2); EOSINOPHILS % (AUTO) 1.2 % (0-6); HEMATOCRIT 38.5 % (37.9-51.0); HEMOGLOBIN 13.1 g/dL (13.5-17.0); HGB HCT DIFFERENCE 0.8; LYMPHOCYTES % (AUTO) 17.1 % (13-45); MEAN CORPUSCULAR HEMOGLOBIN 31.6 pg (27.0-33.4); MEAN CORPUSCULAR HGB CONC 34.1 g/dL (32.0-36.0); MEAN CORPUSCULAR VOLUME 93 fl (80-97); MONOCYTES % (AUTO) 9.2 % (3-13); RED BLOOD COUNT 4.16 10^6/uL (4.35-5.55); RED CELL DISTRIBUTION WIDTH 14.7 % (11.5-14.0); SEGMENTED NEUTROPHILS % (AUTO) 71.5 % (42-78); WHITE BLOOD COUNT 7.7 10^3/uL (4.0-10.5)
--- NOTE | 2017-06-04 07:26 | RADIOLOGY REPORT (SQ) ---
EXAM DESCRIPTION: CHEST PA/LAT COMPLETED DATE/TIME: 06/04/2017 7:14 am REASON FOR STUDY: PORT PROBLEM COMPARISON: 07/15/2016. EXAM PARAMETERS: NUMBER OF VIEWS: two views TECHNIQUE: Digital Frontal and Lateral radiographic views of the chest acquired. RADIATION DOSE: NA LIMITATIONS: none FINDINGS: LUNGS AND PLEURA: Moderate mixed interstitial and airspace opacities suggestive of pulmona ry edema appear moderate lung volume. MEDIASTINUM AND HILAR STRUCTURES: No masses or contour abnormalities. HEART AND VASCULAR STRUCTURES: Mild enlargement of the cardiac silhouette. Atherosclerosis. BONES: No acute findings. HARDWARE: Right internal jugular double-lumen catheter tip at the cavoatrial junction. OTHER: No other significant finding. IMPRESSION: Moderate pulmonary edema pattern. Differential diagnosis includes CHF and pneumonia. TECHNICAL DOCUMENTATION: JOB ID: [id number] [employer]- All Rights Reserved
[2017-06-04 07:42] VITALS: BP 169/96
[2017-06-04] MEDS ORDERED: ACETAMINOPHEN 325 MG TABLET PO ONE (07:44)
== END 2017-06-04 07:45 | disposition home or self-care (01) ==
LOC: ER 06:14
DX: T82.838A Hemorrhage due to vascular prosthetic devices, implants and grafts, initial encounter (principal); Y84.1 Kidney dialysis as the cause of abnormal reaction of the patient, or of later complication, without mention of misadventure at the time of the procedure; Y92.009 Unspecified place in unspecified non-institutional (private) residence as the place of occurrence of the external cause; Z99.2 Dependence on renal dialysis; N18.6 End stage renal disease; I12.0 Hypertensive chronic kidney disease with stage 5 chronic kidney disease or end stage renal disease; Z91.048 Other nonmedicinal substance allergy status; Z88.8 Allergy status to other drugs, medicaments and biological substances
CPT/HCPCS: 99285; 36415; 85025; 71020; J3490

== ENCOUNTER 2017-07-16 08:46 | Emergency (ER) | payer MEDICARE ==
[2017-07-16 10:53] VITALS: BP 156/80
--- NOTE | 2017-07-16 10:56 | ER Document Report ---
ED General - General Chief Complaint: Post Surgical Bleeding Stated Complaint: ARM BLEEDING Time Seen by Provider: 07/16/17 09:18 Mode of Arrival: Ambulatory Information source: Patient Notes: Patient presents with bleeding from the site of his right arm surgery yesterday. He had a vascular surgery for dialysis. He states he had some bleeding the middle the night and wants to make sure everything is okay. Patient denies any pain or problems otherwise. Symptoms been mild. They are intermittent. Bleeding has now stopped. Nothing made it better or worse. There is no radiation of symptoms. TRAVEL OUTSIDE OF THE [place] IN LAST 30 DAYS: No - Related Data Allergies/Adverse Reactions: DRY GAMBRO DIALYZERS Allergy (Unknown, Uncoded 07/16/17 09:08) "BP drop, vomiting" PAPER TAPE Allergy (Uncoded 07/16/17 09:08) Rash Past Medical History - General Information source: Patient - Social History Smoking Status: Current Every Day Smoker Chew tobacco use (# tins/day): No - 2 cigarettes/day Frequency of alcohol use: None Drug Abuse: None Family History: Reviewed & Not Pertinent Patient has suicidal ideation: No Patient has homicidal ideation: No - Past Medical History Cardiac Medical History: Reports: Hx Hypercholesterolemia, Hx Hypertension Denies: Hx Coronary Artery Disease, Hx Heart Attack Pulmonary Medical History: Denies: Hx Asthma, Hx Bronchitis, Hx COPD, Hx Pneumonia Neurological Medical History: Denies: Hx Cerebrovascular Accident, Hx Seizures Renal/ Medical History: Reports: Hx End Stage Renal Disease, Hx Hemodialysis, Hx Peritoneal Dialysis Musculoskeltal Medical History: Reports Hx Arthritis - "DAMAGED NERVE TO RIGHT LEG" Past Surgical History: Reports: Hx Neurologic Surgery - Benign brain tumor removed 2010, Hx Vascular Surgery - Right upper arm AV fistula - Immunizations Hx Diphtheria, Pertussis, Tetanus Vaccination: Yes Hx Pneumococcal Vaccination: 02/07/16 Review of Systems - Review of Systems Constitutional: denies: Chills, Fever Cardiovascular: denies: Chest pain, Palpitations Respiratory: denies: Cough, Short of breath Physical Exam - Vital signs Vitals: Temp Pulse Resp BP Pulse Ox 97.5 F 73 18 143/73 H 100 07/16/17 09:10 07/16/17 09:10 07/16/17 09:10 07/16/17 09:10 07/16/17 09:10 Interpretation: Normal - General General appearance: Appears well, Alert In distress: None - Respiratory Respiratory status: No respiratory distress Chest status: Nontender Breath sounds: Normal Chest palpation: Normal - Cardiovascular Rhythm: Regular Heart sounds: Normal auscultation Murmur: No - Extremities General upper extremity: Tender, Other - Patient has a fistula in the right upper arm. It has a good thrill. There is some dried blood on the bandages. It is mildly tender consistent with postoperative tenderness. No active bleeding appreciated. - Skin Skin Temperature: Warm Skin Moisture: Dry Skin Color: Normal Course - Vital Signs Vital signs: Temp Pulse Resp BP Pulse Ox 97.5 F 72 16 156/80 H 96 07/16/17 10:52 07/16/17 10:52 07/16/17 10:52 07/16/17 10:52 07/16/17 10:52 Discharge - Discharge Clinical Impression: Postoperative bleeding from incision Condition: Stable Disposition: HOME, SELF-CARE Additional Instructions: Please follow-up with Dr. Topete as instructed Referrals: CORNELIO TOPETE MD [ACTIVE STAFF] - Follow up tomorrow
== END 2017-07-16 10:57 | disposition home or self-care (01) ==
LOC: ER 08:46
DX: L76.22 Postprocedural hemorrhage of skin and subcutaneous tissue following other procedure (principal); F17.210 Nicotine dependence, cigarettes, uncomplicated; E78.00 Pure hypercholesterolemia, unspecified; I12.0 Hypertensive chronic kidney disease with stage 5 chronic kidney disease or end stage renal disease; N18.6 End stage renal disease; Z99.2 Dependence on renal dialysis
CPT/HCPCS: 99283

== ENCOUNTER 2017-07-18 11:59 | Inpatient (IN) | payer MEDICARE ==
--- NOTE | 2017-07-18 12:19 | ER Document Report ---
ED Medical Screen (RME) - General Chief Complaint: Arm Problem Stated Complaint: ARM PAIN Time Seen by Provider: 07/18/17 12:17 Mode of Arrival: Ambulatory Information source: Patient TRAVEL OUTSIDE OF THE [place] IN LAST 30 DAYS: No - HPI Patient complains to provider of: R arm pain and swelling Onset: Yesterday - pt is ESRD had HD yesterday -- shunt placed by Dr. Topete last month has stopped working and now R arm is swollen and painful - Related Data Allergies/Adverse Reactions: DRY GAMBRO DIALYZERS Allergy (Unknown, Uncoded 07/18/17 12:03) "BP drop, vomiting" PAPER TAPE Allergy (Uncoded 07/18/17 12:03) Rash Past Medical History - Past Medical History Cardiac Medical History: Reports: Hx Hypercholesterolemia, Hx Hypertension Denies: Hx Coronary Artery Disease, Hx Heart Attack Pulmonary Medical History: Denies: Hx Asthma, Hx Bronchitis, Hx COPD, Hx Pneumonia Neurological Medical History: Denies: Hx Cerebrovascular Accident, Hx Seizures Renal/ Medical History: Reports: Hx End Stage Renal Disease, Hx Hemodialysis. Denies: Hx Peritoneal Dialysis Musculoskeltal Medical History: Reports Hx Arthritis - "DAMAGED NERVE TO RIGHT LEG" Past Surgical History: Reports: Hx Neurologic Surgery - Benign brain tumor removed 2010, Hx Vascular Surgery - Right upper arm AV fistula - Immunizations Hx Diphtheria, Pertussis, Tetanus Vaccination: Yes History of Influenza Vaccine for 06/2017 - 11/2017 Season: Yes Influenza Administration Date for 06/2017 - 11/2017 Season: 06/09/17 Physical Exam - Vital signs Vitals: Temp Pulse Resp BP Pulse Ox 98.1 F 94 20 153/81 H 100 07/18/17 12:05 07/18/17 12:05 07/18/17 12:05 07/18/17 12:05 07/18/17 12:05 Course - Vital Signs Vital signs: Temp Pulse Resp BP Pulse Ox 98.1 F 94 20 153/81 H 100 07/18/17 12:05 07/18/17 12:05 07/18/17 12:05 07/18/17 12:05 07/18/17 12:05
[2017-07-18 12:47] LABS: ABSOLUTE BASOPHILS # (AUTO) 0.1 10^3/uL (0.0-0.2); ABSOLUTE EOSINOPHILS # (AUTO) 0.2 10^3/uL (0.0-0.6); ABSOLUTE LYMPHOCYTES (AUTO) 1.5 10^3/uL (0.5-4.7); ABSOLUTE MONOCYTES (AUTO) 0.7 10^3/uL (0.1-1.4); ABSOLUTE NEUT (AUTO) 4.3 10^3/uL (1.7-8.2); BASOPHILS % (AUTO) 1.3 % (0-2); EOSINOPHILS % (AUTO) 2.8 % (0-6); HEMATOCRIT 35.8 % (37.9-51.0); HEMOGLOBIN 12.6 g/dL (13.5-17.0); LYMPHOCYTES % (AUTO) 22.5 % (13-45); MEAN CORPUSCULAR HEMOGLOBIN 31.4 pg (27.0-33.4); MEAN CORPUSCULAR HGB CONC 35.1 g/dL (32.0-36.0); MEAN CORPUSCULAR VOLUME 89 fl (80-97); MONOCYTES % (AUTO) 10.3 % (3-13); RED BLOOD COUNT 4.01 10^6/uL (4.35-5.55); RED CELL DISTRIBUTION WIDTH 14.1 % (11.5-14.0); SEGMENTED NEUTROPHILS % (AUTO) 63.1 % (42-78); WHITE BLOOD COUNT 6.7 10^3/uL (4.0-10.5)
[2017-07-18 13:16] LABS: ALANINE AMINOTRANSFERASE 18 U/L (21-72); ALBUMIN 4.4 g/dL (3.5-5.0); ALKALINE PHOSPHATASE 70 U/L (38-126); ANION GAP 17 (5-19); ASPARTATE AMINO TRANSFERASE 15 U/L (17-59); BILIRUBIN,DIRECT 0.7 mg/dL (0.0-0.4); BILIRUBIN,TOTAL 0.8 mg/dL (0.2-1.3); BLOOD UREA NITROGEN 35 mg/dL (7-20); CALCIUM 8.7 mg/dL (8.4-10.2); CARBON DIOXIDE 30 mmol/L (22-30); CHLORIDE 93 mmol/L (98-107); GLUCOSE 105 mg/dL (75-110); POTASSIUM 4.5 mmol/L (3.6-5.0); SODIUM 139.7 mmol/L (137-145); TOTAL PROTEIN 8.5 g/dL (6.3-8.2)
--- NOTE | 2017-07-18 13:42 | ER Document Report ---
ED Extremity Problem, Upper - General Chief Complaint: Arm Problem Stated Complaint: ARM PAIN Time Seen by Provider: 07/18/17 12:17 Mode of Arrival: Ambulatory Notes: This is a 56-year-old male history of renal failure. Followed by Dr. Topete for his shunt. Had recent complications requiring revision. Dr. Topete sent to the ER for ultrasound and labs. Dr. Topete is at bedside at this time and wants to admit patient for observation overnight. Patient has a drain in place in the right upper extremity which Dr. Topete removed at bedside. Known blood clot in the jugular TRAVEL OUTSIDE OF THE [place] IN LAST 30 DAYS: No - HPI Patient complains to provider of: Other - he denies any complaints - Related Data Allergies/Adverse Reactions: DRY GAMBRO DIALYZERS Allergy (Unknown, Uncoded 07/18/17 12:03) "BP drop, vomiting" PAPER TAPE Allergy (Uncoded 07/18/17 12:03) Rash Past Medical History - General Information source: Patient - Social History Smoking Status: Current Some Day Smoker Chew tobacco use (# tins/day): No Frequency of alcohol use: None Drug Abuse: None Family History: Reviewed & Not Pertinent Patient has suicidal ideation: No Patient has homicidal ideation: No - Past Medical History Cardiac Medical History: Reports: Hx Hypercholesterolemia, Hx Hypertension Denies: Hx Coronary Artery Disease, Hx Heart Attack Pulmonary Medical History: Denies: Hx Asthma, Hx Bronchitis, Hx COPD, Hx Pneumonia Neurological Medical History: Denies: Hx Cerebrovascular Accident, Hx Seizures Renal/ Medical History: Reports: Hx End Stage Renal Disease, Hx Hemodialysis. Denies: Hx Peritoneal Dialysis Musculoskeltal Medical History: Reports Hx Arthritis - "DAMAGED NERVE TO RIGHT LEG" Past Surgical History: Reports: Hx Neurologic Surgery - Benign brain tumor removed 2010, Hx Vascular Surgery - Right upper arm AV fistula - Immunizations Hx Diphtheria, Pertussis, Tetanus Vaccination: Yes Hx Pneumococcal Vaccination: 02/07/16 Review of Systems - Review of Systems Constitutional: No symptoms reported EENT: No symptoms reported Cardiovascular: No symptoms reported Respiratory: No symptoms reported Gastrointestinal: No symptoms reported Genitourinary: No symptoms reported Male Genitourinary: No symptoms reported Musculoskeletal: No symptoms reported, Other - Right upper extremity swelling Skin: No symptoms reported Hematologic/Lymphatic: No symptoms reported Neurological/Psychological: No symptoms reported Physical Exam - Vital signs Vitals: Temp Pulse Resp BP Pulse Ox 98.1 F 94 20 153/81 H 100 07/18/17 12:05 07/18/17 12:05 07/18/17 12:05 07/18/17 12:05 07/18/17 12:05 Interpretation: Normal - General General appearance: Appears well, Alert - Respiratory Respiratory status: No respiratory distress Chest status: Nontender Breath sounds: Normal Chest palpation: Normal - Cardiovascular Rhythm: Regular - There is a thrill and bruit noted on the right upper extremity. Heart sounds: Normal auscultation Murmur: No - Extremities General upper extremity: Other - Left upper extremity unremarkable. Right upper extremity demonstrates remarkable swelling. There is deformity noted to the right upper extremity from prior AV fistula graft. There is a large incision that is healing on the medial aspect of the right upper extremity with a surgical drain in place draining small amount of blood. There is significant edema noted to the right upper extremity Course - Re-evaluation Re-evalutation: 07/18/17 14:05 Per surgeon's request patient will be admitted at this time. Dr. Topete to admit. Nothing further at this time. - Vital Signs Vital signs: Temp Pulse Resp BP Pulse Ox 98.1 F 94 20 153/81 H 100 07/18/17 12:05 07/18/17 12:05 07/18/17 12:05 07/18/17 12:05 07/18/17 12:05 - Laboratory Result Diagrams: 07/18/17 12:35 07/18/17 12:35 Laboratory results interpreted by me: 07/18/17 07/18/17 12:35 12:35 RBC 4.01 L Hgb 12.6 L Hct 35.8 L RDW 14.1 H Chloride 93 L BUN 35 H Creatinine 10.30 H Est GFR ( Amer) 6 L Est GFR (Non-Af Amer) 5 L Direct Bilirubin 0.7 H AST 15 L ALT 18 L Total Protein 8.5 H Discharge - Discharge Clinical Impression: AV fistula thrombosis Qualifiers: Encounter type: sequela Qualified Code(s): T82.868S - Thrombosis due to vascular prosthetic devices, implants and grafts, sequela Condition: Good Disposition: ADMITTED OBSERVATION Admitting Provider: Waqas Topete Unit Admitted: Medical Floor Referrals: СВЕТЛАНА WHEELER MD [Primary Care Provider] - Follow up as needed
--- NOTE | 2017-07-18 14:53 | RADIOLOGY REPORT (SQ) ---
EXAM DESCRIPTION: VENOUS UNILATERAL UPPER COMPLETED DATE/TIME: 07/18/2017 2:44 pm REASON FOR STUDY: R arm swelling and pain COMPARISON: None. TECHNIQUE: Dynamic and static bower scale and color images acquired of the right arm venous system. S elected spectral images acquired with additional compression and augmentation maneuvers. The contrala teral subclavian vein and internal jugular vein were also imaged. Images stored on PACS. LIMITATIONS: None. FINDINGS: Imaging is quite limited because of a bandage on the arm. The subclavian vein was patent. Thrombus is present the internal jugular vein. . IMPRESSION: DVT in the right internal jugular vein. The subclavian is patent. Study is limited. TECHNICAL DOCUMENTATION: JOB ID: [id number]- All Rights Reserved
--- NOTE | 2017-07-18 15:14 | PDOC H&P ---
General Chief Complaint: This patient was referred across from hemodialysis because of massive swelling of the right upper extremity he had complex transposition of the right basilic vein 4 days ago. - Current Medications/Allergies Home Medications: No Home Medications 07/18/17 Allergies/Adverse Reactions: DRY GAMBRO DIALYZERS Allergy (Unknown, Uncoded 07/18/17 12:03) "BP drop, vomiting" PAPER TAPE Allergy (Uncoded 07/18/17 12:03) Rash Past Medical History Cardiac Medical History: Reports: Hyperlipidema, Hypertension Denies: Coronary Artery Disease, Myocardial Infarction Pulmonary Medical History: Denies: Asthma, Bronchitis, Chronic Obstructive Pulmonary Disease (COPD), Pneumonia Neurological Medical History: Denies: Seizures Renal/ Medical History: Reports: End Stage Renal Disease Musculoskeltal Medical History: Reports: Arthritis - "DAMAGED NERVE TO RIGHT LEG " Hematology: Denies: Anemia Past Surgical History Past Surgical History: Reports: Vascular Surgery - Right upper arm AV fistula Family History Family History: Reviewed & Not Pertinent Parental Family History Reviewed: No Children Family History Reviewed: No Sibling(s) Family History Reviewed.: No Social History Smoking Status: Current Some Day Smoker Frequency of Alcohol Use: None Hx Recreational Drug Use: No Hx Prescription Drug Abuse: No Physical Exam Vital Signs: Temp Pulse Resp BP Pulse Ox 98.1 F 94 20 153/81 H 100 07/18/17 12:05 07/18/17 12:05 07/18/17 12:05 07/18/17 12:05 07/18/17 12:05 Intake & Output 07/17/17 07/18/17 07/19/17 06:59 06:59 06:59 Weight 109.769 kg Additional comments: Constitutional: Well-developed well-nourished -[place] gentleman, much increased body mass in the. No apparent acute distress. Eyes: Mucous membranes pink and moist, pupils equal and reactive to light. Conjunctiva normal. Cornea normal. ENT: Hearing grossly normal. External pinna normal to inspection. Teeth missing. Tongue normal to inspection. Cardiac: Heart sounds 1 and 2 normal. Chest: Right-sided PermCath in place. Respiratory breath sounds are present bilaterally, normal. Normal respiratory effort. Psychiatric: Judgment, memory, insight seem normal. Mood is pleasant and appropriate. Extremities: Upper extremities show normal range of movement. Pulses present noted to the radial arteries. Capillary refill normal. No cyanosis noted. No muscle wasting noted. Very impressive swelling in the right upper extremity from the arm down to the fingertips. Capillary refill normal. Movement somewhat hindered by the swelling. Surgical dressing in place. Excellent bruit in the transposed basilic fistula. Drain in place, removed. Lower extremities show normal range of movement. Pulses present noted to the dorsalis pedis artery. Capillary refill normal. No cyanosis noted. No muscle wasting noted. Impression/Plan Plan: In this patient who has returned twice to the emergency room with several large swelling and with DVT in the right internal jugular vein, admission, limb elevation and anticoagulation seem the hope is to reduce the swelling and symptoms that discharged by possibly in about 2 days.
[2017-07-18] MEDS: ENOXAPARIN SODIUM INJ 60 MG/0.6 ML DISP.SYRIN SUBCUT SCH (17:17)
[2017-07-19] MEDS: ENOXAPARIN SODIUM INJ 60 MG/0.6 ML DISP.SYRIN SUBCUT SCH (06:11)
--- NOTE | 2017-07-19 13:26 | PDOC DISCHARGE SUMMARY ---
General - Admit/Disc Date/PCP Admission Date/Primary Care Provider: 07/18/17 17:04 СВЕТЛАНА WHEELER MD Discharge Date: 07/19/17 - Additional Information Home Medications: No Home Medications 07/18/17 History of Present Illness History of Present Illness: OLINDA OCAMPO is a 56 year old male Hospital Course Hospital Course: The patient was admitted for acute DVT in the right internal jugular vein with massive swelling of the right upper extremity. The goal was initial treatment of DVT and measures to reduce the swelling. The swelling was of a size which could compromise the patient's vascularity. The patient had a second stage right transposed basilic vein fistula about 4 days ago. During his hospitalization the patient was encouraged to keep the arm elevated. The arm was wrapped quite significantly with a combination of Webril and Coban. In addition he was kept on Lovenox 60 mg subcutaneously twice daily. On this regime the patient has improved dramatically with considerable reduction in swelling. At this time the patient is no longer in danger of vascular compromise. In addition he gets heparin 3 times weekly at dialysis. With this regime I believe his jugular DVT and arm swelling, should resolve with observation. In addition the hope is to use the fistula within about 2-3 weeks. At that time the PermCath can be removed which would release pressure on the venous system and hopefully further improve arm edema. Once in use angioplasty could be done to improve the outflow through the right subclavian system. Failing this patient might need fistula ligation and I believe there is great hope of salvaging it. This was discussed with him at some length. At this time the patient has achieved optimal hospital benefit and will be discharged. Physical Exam Vital Signs: Temp Pulse Resp BP Pulse Ox 98.1 F 89 17 152/83 H 100 07/19/17 07:43 07/19/17 07:43 07/19/17 07:43 07/19/17 07:43 07/19/17 07:43 Intake & Output 07/18/17 07/19/17 07/20/17 06:59 06:59 06:59 Intake Total 450 Balance 450 Weight 106 kg Additional comments: Constitutional: Well-developed well-nourished -[place] gentleman, much increased body mass index. No apparent acute distress. Eyes: Mucous membranes pink and moist, pupils equal and reactive to light. Conjunctiva normal. Cornea normal. ENT: Hearing grossly normal. External pinna normal to inspection. Teeth missing. Tongue normal to inspection. Chest: Pertinent for a functioning right-sided permacatheter. Respiratory: Normal respiratory effort. Skin: Normal to inspection. No ulcers, normal turgor. Psychiatric: Judgment, memory, insight seem normal. Mood is pleasant and appropriate. Extremities: Upper extremities show normal range of movement except for moderate reduction on the right due to swelling. Pulses present noted to the radial arteries. Capillary refill normal. No cyanosis noted. No muscle wasting noted. Much reduced swelling in the right upper extremity. Fistula functioning with excellent bruit. Surgical dressing in place and quite clean. Bilayer arm wrapping in place. Results Impressions: Venous Doppler Study 07/18/17 12:17 IMPRESSION: DVT in the right internal jugular vein. The subclavian is patent. Study is limited. Plan Discharge Plan: At this time the patient is no longer in danger of vascular compromise. In addition he gets heparin 3 times weekly at dialysis. With this regime I believe his jugular DVT and arm swelling, should resolve with observation. In addition the hope is to use the fistula within about 2-3 weeks. At that time the PermCath can be removed which would release pressure on the venous system and hopefully further improve arm edema. Once in use angioplasty could be done to improve the outflow through the right subclavian system. Failing this patient might need fistula ligation and I believe there is great hope of salvaging it. This was discussed with him at some length. At this time the patient has achieved optimal hospital benefit and will be discharged. He is to continue his normal medications. Also his dialysis routine. He is due for dialysis on Friday.
[2017-07-19 16:14] VITALS: BP 128/62
== END 2017-07-19 16:46 | disposition home or self-care (01) | DRG 299 ==
LOC: ER 11:59 → EH 15:08 → 5 16:35 → OBSVTOIN 17:04
PROVIDERS: ADMIT Surgery; ATTEND Surgery
DX: I82.C11 Acute embolism and thrombosis of right internal jugular vein (principal); N18.6 End stage renal disease; I12.0 Hypertensive chronic kidney disease with stage 5 chronic kidney disease or end stage renal disease; T82.868S Thrombosis due to vascular prosthetic devices, implants and grafts, sequela; E78.5 Hyperlipidemia, unspecified; M19.90 Unspecified osteoarthritis, unspecified site; Z87.891 Personal history of nicotine dependence; Z92.29 Personal history of other drug therapy; Z99.2 Dependence on renal dialysis
CPT/HCPCS: 36415; 80053; 84132; 85025; 93971; 99285; J1650

== ENCOUNTER 2017-07-21 06:18 | Emergency (ER) | payer MEDICARE ==
--- NOTE | 2017-07-21 07:07 | ER Document Report ---
ED General - General Chief Complaint: Swelling Stated Complaint: RIGHT ARM SWELLING Time Seen by Provider: 07/21/17 06:40 Mode of Arrival: Ambulatory Information source: Patient Notes: 56 yr old male who had fistula placed last friday who was noted ot have a thtrombosis of the AV fistula and right aarm swelling presents with worsening swelling and pain. pt had doppler which was negative, was kept overnight . pt had dialysis on friday from his chest port and was supposed ot have dialysis today, TRAVEL OUTSIDE OF THE [place] IN LAST 30 DAYS: No - HPI Onset: Last week Onset/Duration: Persistent, Worse Quality of pain: Achy Severity: Moderate Pain Level: 2 Associated symptoms: Other Exacerbated by: Denies Relieved by: Denies Similar symptoms previously: Yes Recently seen / treated by doctor: Yes - Related Data Allergies/Adverse Reactions: DRY GAMBRO DIALYZERS Allergy (Unknown, Uncoded 07/21/17 07:42) "BP drop, vomiting" PAPER TAPE Allergy (Uncoded 07/21/17 07:42) Rash Past Medical History - Social History Smoking Status: Never Smoker Cigarette use (# per day): No Chew tobacco use (# tins/day): No Smoking Education Provided: No Family History: Reviewed & Not Pertinent Patient has suicidal ideation: No Patient has homicidal ideation: No - Past Medical History Cardiac Medical History: Reports: Hx Hypercholesterolemia, Hx Hypertension Denies: Hx Coronary Artery Disease, Hx Heart Attack Pulmonary Medical History: Denies: Hx Asthma, Hx Bronchitis, Hx COPD, Hx Pneumonia Neurological Medical History: Denies: Hx Cerebrovascular Accident, Hx Seizures Renal/ Medical History: Reports: Hx End Stage Renal Disease, Hx Hemodialysis. Denies: Hx Peritoneal Dialysis Musculoskeltal Medical History: Reports Hx Arthritis - "DAMAGED NERVE TO RIGHT LEG" Past Surgical History: Reports: Hx Neurologic Surgery - Benign brain tumor removed 2010, Hx Vascular Surgery - Right upper arm AV fistula - Immunizations Hx Diphtheria, Pertussis, Tetanus Vaccination: Yes Hx Pneumococcal Vaccination: 02/07/16 Review of Systems - Review of Systems Notes: REVIEW OF SYSTEMS: CONSTITUTIONAL : Denies fever, chills, or sweats. Denies recent illness. EENT: Denies eye, ear, throat, or mouth pain or symptoms. Denies nasal or sinus congestion or discharge. Denies throat, tongue, or mouth swelling or difficulty swallowing. CARDIOVASCULAR: Denies chest pain. Denies palpitations or racing or irregular heart beat. Denies ankle edema. RESPIRATORY: Denies cough, cold, or chest congestion. Denies shortness of breath, difficulty breathing, or wheezing. GASTROINTESTINAL: Denies abdominal pain or distention. Denies nausea, vomiting , or diarrhea. Denies blood in vomitus, stools, or per rectum. Denies black, tarry stools. Denies constipation. GENITOURINARY: Denies difficulty urinating, painful urination, burning, frequency, blood in urine, or discharge. MUSCULOSKELETAL: admits to right upper extremity edema SKIN: Denies rash, lesions or sores. HEMATOLOGIC : Denies easy bruising or bleeding. LYMPHATIC: Denies swollen, enlarged glands. NEUROLOGICAL: Denies confusion or altered mental status. Denies passing out or loss of consciousness. Denies dizziness or lightheadedness. Denies headache. Denies weakness or paralysis or loss of use of either side. Denies problems with gait or speech. Denies sensory loss, numbness, or tingling. Denies seizures. PSYCHIATRIC: Denies anxiety or stress. Denies depression, suicidal ideation, or homicidal ideation. ALL OTHER SYSTEMS REVIEWED AND NEGATIVE. Dictation was performed using [employer] voice recognition software PHYSICAL EXAMINATION: GENERAL: Well-appearing, well-nourished and in no acute distress. HEAD: Atraumatic, normocephalic. EYES: Pupils equal round and reactive to light, extraocular movements intact, sclera anicteric, conjunctiva are normal. ENT: Nares patent, oropharynx clear without exudates. Moist mucous membranes. NECK: Normal range of motion, supple without lymphadenopathy LUNGS: Breath sounds clear to auscultation bilaterally and equal. No wheezes rales or rhonchi. HEART: Regular rate and rhythm without murmurs ABDOMEN: Soft, nontender, nondistended abdomen. No guarding, no rebound. No masses appreciated. Musculoskeletal: large edemetous Right upper extremity , no bruit noted NEUROLOGICAL: Cranial nerves grossly intact. Normal speech, normal gait. Normal sensory, motor exams PSYCH: Normal mood, normal affect. SKIN: Warm, Dry, normal turgor, no rashes or lesions noted. Physical Exam - Vital signs Vitals: Temp Pulse Resp BP Pulse Ox 98.3 F 91 16 156/101 H 99 07/21/17 06:20 07/21/17 06:20 07/21/17 06:20 07/21/17 06:20 07/21/17 06:20 Course - Re-evaluation Re-evalutation: 07/21/17 07:15 doppler ordered initlaly but cancelled since previous was positive, pt states he is on lovenox Dr Topete will evaluate in the ED 07/21/17 08:40 07/21/17 12:12 Dr. Topete wrote for eliquis for the patient and wishes for him ot be dc home , i agree with this plan now that he is on thrombolytic therapy After performing a Medical Screening Examination, I estimate there is LOW risk for RUPTURED ESOPHAGUS, PNEUMOTHORAX, PULMONARY EMBOLISM, ACUTE CORONARY SYNDROME, OR THORACIC AORTIC DISSECTION, thus I consider the discharge disposition reasonable. I have reevaluated this patient multiple times and no significant life threatening changes are noted. The patient and I have discussed the diagnosis and risks, and we agree with discharging home with close follow-up. We also discussed returning to the Emergency Department immediately if new or worsening symptoms occur. We have discussed the symptoms which are most concerning (e.g., bloody sputum, worsening pain or shortness of breath) that necessitate immediate return. - Vital Signs Vital signs: Temp Pulse Resp BP Pulse Ox 97.6 F 75 16 144/85 H 100 07/21/17 08:15 07/21/17 08:15 07/21/17 06:20 07/21/17 08:15 07/21/17 08:15 Discharge - Discharge Clinical Impression: Swelling of right upper extremity DVT (deep venous thrombosis) Qualifiers: DVT location: upper extremity Affected thrombotic vein of extremity: unspecified vein of extremity Chronicity: acute Laterality: right Qualified Code (s): I82.621 - Acute embolism and thrombosis of deep veins of right upper extremity Condition: Stable Disposition: HOME, SELF-CARE Additional Instructions: Please take the eliquis as prescribed Referrals: СВЕТЛАНА WHEELER MD [Primary Care Provider] - Follow up tomorrow
[2017-07-21] MEDS ORDERED: OXYCODONE-ACETAMINOPHEN 5-325 MG TABLET PO ONE (07:15)
[2017-07-21 12:37] VITALS: BP 150/99
== END 2017-07-21 12:37 | disposition home or self-care (01) ==
LOC: ER 06:18
DX: I82.621 Acute embolism and thrombosis of deep veins of right upper extremity (principal); M79.89 Other specified soft tissue disorders; E78.00 Pure hypercholesterolemia, unspecified; I12.0 Hypertensive chronic kidney disease with stage 5 chronic kidney disease or end stage renal disease; N18.6 End stage renal disease; Z99.2 Dependence on renal dialysis; Z79.02 Long term (current) use of antithrombotics/antiplatelets
CPT/HCPCS: 99284; A9270

== ENCOUNTER 2017-08-12 06:05 | Day surgery (SDC) | payer MEDICARE ==
[~2017-08-12 06:05] MED LIST: DIAZEPAM 5 MG TABLET PO PRN; OXYCODONE-ACETAMINOPHEN 5-325 MG TABLET PO PRN; VANCOMYCIN HCL 500 MG in DEXTROSE 5%-WATER 100 ML IV PRN
[2017-08-12 06:47] LABS: ABSOLUTE BASOPHILS # (AUTO) 0.1 10^3/uL (0.0-0.2); ABSOLUTE EOSINOPHILS # (AUTO) 0.4 10^3/uL (0.0-0.6); ABSOLUTE LYMPHOCYTES (AUTO) 1.4 10^3/uL (0.5-4.7); ABSOLUTE MONOCYTES (AUTO) 0.5 10^3/uL (0.1-1.4); ABSOLUTE NEUT (AUTO) 2.8 10^3/uL (1.7-8.2); BASOPHILS % (AUTO) 1.4 % (0-2); EOSINOPHILS % (AUTO) 7.9 % (0-6); HEMATOCRIT 34.7 % (37.9-51.0); HEMOGLOBIN 11.9 g/dL (13.5-17.0); LYMPHOCYTES % (AUTO) 27.7 % (13-45); MEAN CORPUSCULAR HEMOGLOBIN 30.7 pg (27.0-33.4); MEAN CORPUSCULAR HGB CONC 34.1 g/dL (32.0-36.0); MEAN CORPUSCULAR VOLUME 90 fl (80-97); MONOCYTES % (AUTO) 9.2 % (3-13); RED BLOOD COUNT 3.87 10^6/uL (4.35-5.55); RED CELL DISTRIBUTION WIDTH 14.6 % (11.5-14.0); SEGMENTED NEUTROPHILS % (AUTO) 53.8 % (42-78); WHITE BLOOD COUNT 5.2 10^3/uL (4.0-10.5)
[2017-08-12 07:07] LABS: ANION GAP 16 (5-19); BLOOD UREA NITROGEN 39 mg/dL (7-20); CALCIUM 8.6 mg/dL (8.4-10.2); CARBON DIOXIDE 27 mmol/L (22-30); CHLORIDE 98 mmol/L (98-107); CREATININE RESULT 12.24 mg/dL (0.52-1.25); GLUCOSE 93 mg/dL (75-110); POTASSIUM 4.8 mmol/L (3.6-5.0); SODIUM 140.7 mmol/L (137-145)
[2017-08-12] MEDS ORDERED: LIDOCAINE 0.5% INJ-PF (5 MG/ML) 50 ML SDV ONE (07:51)
[2017-08-12] MEDS ORDERED: MIDAZOLAM 2 MG/2 ML INJ ONE (07:51)
[2017-08-12] MEDS ORDERED: BACITRACIN INJ 50,000 UNIT VIAL ONE (07:52)
[2017-08-12] MEDS ORDERED: FENTANYL CITRATE INJ/PF 100 MCG/2 ML AMPUL ONE (07:52)
--- NOTE | 2017-08-12 10:27 | PDOC DISCHARGE SUMMARY ---
Discharge Summary (SDC) - Discharge Final Diagnosis: #1 swelling in the right upper extremity. 2. Right internal jugular deep venous thrombosis. 3. AV fistula right transposed basilic. 4. End-stage renal disease on hemodialysis. 5. Increased body mass index. Date of Surgery: 08/12/17 Discharge Date: 08/12/17 Condition: Good Treatment or Instructions: Discharge home [after recovery per ASU criteria]. Diet , [renal],as tolerated, when fully awake advance as tolerated. Activities within moderation encouraged. Follow up in my office by appointment on of this week. Call for appointment. Leave wounds [covered], [keep clean and dry, until office visit in 1 week]. Hold of on school/work [until evaluation in office]. Meds per med rec. May shower [in 48 hrs], [try to keep operated area as dry as possible]. Referrals: СВЕТЛАНА WHEELER MD [Primary Care Provider] - Respiratory Treatments at Home: Deep Breathing/Coughing Discharge Activity: Activity As Tolerated Report the Following to Your Physician Immediately: Shortness of Breath, Unusual Bleeding
--- NOTE | 2017-08-12 10:35 | Operative Report ---
Operative Report DATE OF SURGERY: 08/12/17 PREOPERATIVE DIAGNOSIS: #1 swelling in the right upper extremity. 2. Right internal jugular deep venous thrombosis. 3. AV fistula right transposed basilic. 4. End-stage renal disease on hemodialysis. 5. Increased body mass index POSTOPERATIVE DIAGNOSIS: #1 swelling in the right upper extremity. Post insertion of. Removal of old permacatheter. 2. Right internal jugular deep venous thrombosis. 3. AV fistula right transposed basilic. 4. End-stage renal disease on hemodialysis. 5. Increased body mass index OPERATION: 1. Ultrasound evaluation of the left internal jugular vein. 2. Insertion of left internal jugular vein permacatheter via real-time ultrasound axis. 3. Angiogram and interpretation. 4. Removal of prior, right internal jugular vein permacatheter. SURGEON: CONRELIO YEH [employer] BI ARCHITECT: None ANESTHESIA: Moderate Sedation TISSUE REMOVED OR ALTERED: Not applicable. COMPLICATIONS: None ESTIMATED BLOOD LOSS: 5 mL. INTRAOPERATIVE FINDINGS: Of fairly small left internal jugular vein. One branch of which may be true thrombosis. Quite challenging to get into the vein and also to negotiate down into the superior vena cava. The catheter stent to go up into the right internal jugular. Satisfactory position was obtained with the tip of the catheter well down in the right atrial pool. This was verified on angiogram. In order to satisfy sufficient space between the exit site and the cuff of the catheter, the entry incision was removed about 3 cm. The right permacatheter was removed after the sterile procedure in uneventful fashion. PROCEDURE: After obtaining informed consent, the patient was taken to the [[employer]] and positioned supine. The left neck and chest were prepared with chlorhexidine and draped out with sterile linen. 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 He was given vancomycin intravenous. He was asked and he said he did shower with Hibiclens for several days before. I personally cleaned his neck very and neck chest very thoroughly about an hour before the procedure. Mesfin wipes were applied and left on his neck from admission. The reason for this extra attention is questions about hygiene and also because of a paucity of places to insert a permacatheter should this 1 fail. After the " universal timeout", in which it was verified that the patient continued to receive antibiotic, the procedure commenced. A steriley sheathed ultrasound probe was used to evaluate the [left internal jugular] vein. Local anesthesia was infiltrated adjacent to the probe. Access into the [left internal jugular] vein was obtained using a micropuncture needle, followed by micropuncture wire and then a micropuncture catheter. In this patient improved quite challenging to get the wire of the micropuncture down into the superior vena cava. Interval flush angiograms were done and the catheter manipulated quite extensively. Eventually this was removed and a second ultrasound-guided access again in the left internal jugular, somewhat lower down and just above the clavicle. This was successful in accessing the superior vena cava. This was followed by introduction of a 0.035 guidewire the tip of which was placed down into the inferior vena cava . A 27 cm long firm catheter] was now positioned over the chest and an exit site marked and locally anesthetized ,the catheter was placed between the 2 incisions. Proximally, the catheter was now positioned using a peel-away sheath, after dilation. Easy ingress of heparinized solution and egress of blood obtained through both ports. A completion angiogram was done by injecting contrast. The findings were as dictated. The exit site was extended for 3 cm after infiltrating with local anesthesia. The catheter was covered by interrupted sutures of 3-0 PDS in the subcutaneous tissues. Skin was closed using a subcuticular suture of 4-0 Monocryl, reinforced with Steri-Strips over benzoin. The neck incision was now closed using interrupted 3-0 PDS to the subcutaneous tissues, the catheter was anchored at the exit site using 3-0 PDS. A Biopatch device was now placed adjacent to the catheter. Dressings were applied and the procedure concluded. The right-sided permacatheter was now removed. First area was cleaned with chlorhexidine. Local anesthesia was not infiltrated. A hemostat was used to dissect the cuff of the catheter away from the surrounding tissues. The catheter was removed and discarded. Dressings were applied as well as pressure dressings. Exposure time: [5.5 minutes]. Exposure: [95.27 cGy] per centimeters squared. Contrast amount: 15 of [id number] low osmolality. Copies of the dictated operative report for Dr. Cornelio Topete MD.concluded. Copies of the dictated operative report for Dr. Cornelio Topete MD.
[2017-08-12 13:09] VITALS: BP 162/90
--- NOTE | 2017-08-12 16:21 | RADIOLOGY REPORT (SQ) ---
EXAM DESCRIPTION: TUNNELED CENTRAL LINE COMPLETED DATE/TIME: 08/12/2017 3:30 pm REASON FOR STUDY: T82.858 REMOVAL ON RT/ INSERT ON LEFT Z79.899 OTHER [facility] (CURRENT) DRUG THER APY COMPARISON: None. FLUOROSCOPY TIME: 5.5 minutes. Multiple cine fluoroscopic images saved to PACS. TECHNIQUE: Intra-operative images acquired during surgical procedure to evaluate progress. NUMBER OF IMAGES: Cine fluoroscopic images. LIMITATIONS: None. FINDINGS: Images acquired during catheter placement. IMPRESSION: IMAGE(S) OBTAINED DURING PROCEDURE. COMMENT: Quality ID [id number]: Final reports for procedures using fluoroscopy that document radiation exp osure indices, or exposure time and number of fluorographic images (if radiation exposure indices are not available) Please consult full operative report of the attending physician for description of the procedure. TECHNICAL DOCUMENTATION: JOB ID: [id number] [employer]- All Rights Reserved
== END 2017-08-12 11:05 | disposition home or self-care (01) ==
LOC: CCL 06:05
PROVIDERS: ATTEND Surgery
PROC: [UNRECOGNIZED PROCEDURE] (principal; 2017-08-12)
DX: T82.858A Stenosis of other vascular prosthetic devices, implants and grafts, initial encounter (principal); Y83.2 Surgical operation with anastomosis, bypass or graft as the cause of abnormal reaction of the patient, or of later complication, without mention of misadventure at the time of the procedure; I82.C11 Acute embolism and thrombosis of right internal jugular vein; N18.6 End stage renal disease; Z99.2 Dependence on renal dialysis; L03.90 Cellulitis, unspecified; Z86.14 Personal history of Methicillin resistant Staphylococcus aureus infection; Z72.0 Tobacco use; Z79.899 Other long term (current) drug therapy
CPT/HCPCS: 36415; 85025; 80048; 36558; 76937; 77001; C1713; C1752; C1887; C1769 ×2; Q9967; J2250; J3490 ×2; A9270 ×2; J3010; J3370; J1644

== ENCOUNTER 2017-09-04 14:59 | Emergency (ER) | payer MEDICARE ==
--- NOTE | 2017-09-04 15:45 | ER Document Report ---
ED Extremity Problem, Upper - General Chief Complaint: Arm Pain Stated Complaint: RIGHT ARM PAIN Time Seen by Provider: 09/04/17 15:38 Mode of Arrival: Ambulatory Information source: Patient, [facility] Records Notes: This 56-year-old male patient reports he was sent here from dialysis to be seen and transferred for treatment of his swollen right arm. His right arm is swollen due to a clotted off AV fistula. Fistula was placed probably in July, or late June. He was seen in emergency room on 07/21/2017 and at that time it was known that was clotted off and he was started on Eliquis. He does continue to take the Eliquis. On 08/12/2017 he had his right-sided PermCath removed and it was replaced on the left side due to clot extending proximal into the internal jugular vein. The arm has not changed in the past month. He was told by the the [facility] that his dialysis doctor wanted him to come over here and be transferred to [place]. I made a phone call to Dr. Nakita Topete who has him scheduled for a fistulogram on September 09, 2017. Dr. Topete requested that I discharge patient home and stay with the current plan and he will contact the building maintenance superintendent to see what the misunderstanding is. TRAVEL OUTSIDE OF THE [place] IN LAST 30 DAYS: No - Related Data Allergies/Adverse Reactions: DRY GAMBRO DIALYZERS Allergy (Unknown, Uncoded 09/04/17 15:02) "BP drop, vomiting" PAPER TAPE Allergy (Uncoded 09/04/17 15:02) Rash Past Medical History - General Information source: Patient, [facility] Records - Social History Smoking Status: Current Some Day Smoker Cigarette use (# per day): Yes - 3 cigarettes per day Chew tobacco use (# tins/day): No Smoking Education Provided: No Frequency of alcohol use: Occasional - Wine Drug Abuse: None Lives with: Family Family History: Reviewed & Not Pertinent - Past Medical History Cardiac Medical History: Reports: Hx Hypercholesterolemia, Hx Hypertension Pulmonary Medical History: Reports: None Neurological Medical History: Reports: None Endocrine Medical History: Reports: None Renal/ Medical History: Reports: Hx End Stage Renal Disease, Hx Hemodialysis GI Medical History: Reports: None Musculoskeltal Medical History: Reports Hx Arthritis - "DAMAGED NERVE TO RIGHT LEG" Skin Medical History: Reports None Psychiatric Medical History: Reports: None Past Surgical History: Reports: Hx Neurologic Surgery - Benign brain tumor removed 2010, Hx Vascular Surgery - Right upper arm AV fistula, right and left PermCaths - Immunizations Hx Diphtheria, Pertussis, Tetanus Vaccination: Yes Hx Pneumococcal Vaccination: 02/07/16 Review of Systems - Review of Systems Constitutional: No symptoms reported EENT: No symptoms reported Cardiovascular: See HPI Respiratory: No symptoms reported Gastrointestinal: No symptoms reported Musculoskeletal: See HPI Skin: No symptoms reported Hematologic/Lymphatic: No symptoms reported Neurological/Psychological: No symptoms reported Physical Exam - Vital signs Interpretation: Normal - General General appearance: Appears well, Alert In distress: None - HEENT Head: Normocephalic, Atraumatic Eyes: Normal Pupils: PERRL - Respiratory Respiratory status: No respiratory distress Breath sounds: Normal - Cardiovascular Rhythm: Regular Heart sounds: Normal auscultation Murmur: Yes - Abdominal Inspection: Normal Bowel sounds: Normal Tenderness: Nontender - Back Back: Normal - Extremities General upper extremity: Other - The right upper arm AV fistula is distended and firm, the entire arm is swollen. Patient states it is unchanged for the past month. General lower extremity: Normal inspection - Neurological Neuro grossly intact: Yes - Psychological Associated symptoms: Normal affect, Normal mood Course - Consults Dr. Natalie Topete Time consulted: 15:50 Consulted provider: other - We will follow-up as scheduled on 09/09/2017 for fistulogram. Requested I discharge patient home. Will contact the building maintenance superintendent to see what the misunderstanding is. Discharge - Discharge Clinical Impression: AV fistula thrombosis Qualifiers: Encounter type: initial encounter Qualified Code(s): T82.868A - Thrombosis due to vascular prosthetic devices, implants and grafts, initial encounter Condition: Stable Disposition: HOME, SELF-CARE Additional Instructions: Continue taking the Eliquis. Follow-up with Dr. Natalie Topete on September 09, 2017 for the scheduled fistulogram. RETURN TO THE EMERGENCY ROOM IF ANY NEW OR WORSENING SYMPTOMS.
[2017-09-04 15:57] VITALS: BP 170/84
== END 2017-09-04 15:57 | disposition home or self-care (01) ==
LOC: ER 14:59
DX: T82.868A Thrombosis due to vascular prosthetic devices, implants and grafts, initial encounter (principal); M79.601 Pain in right arm; M79.89 Other specified soft tissue disorders; F17.210 Nicotine dependence, cigarettes, uncomplicated
CPT/HCPCS: 99283

== ENCOUNTER 2017-09-09 07:08 | Day surgery (SDC) | payer MEDICARE ==
[~2017-09-09 07:08] MED LIST changes: -VANCOMYCIN HCL 500 MG in DEXTROSE 5%-WATER 100 ML IV PRN
[2017-09-09 07:44] LABS: ABSOLUTE EOSINOPHILS # (AUTO) 0.4 10^3/uL (0.0-0.6); ABSOLUTE LYMPHOCYTES (AUTO) 1.3 10^3/uL (0.5-4.7); ABSOLUTE MONOCYTES (AUTO) 0.5 10^3/uL (0.1-1.4); ABSOLUTE NEUT (AUTO) 2.9 10^3/uL (1.7-8.2); BASOPHILS % (AUTO) 0.7 % (0-2); EOSINOPHILS % (AUTO) 7.6 % (0-6); HEMATOCRIT 37.9 % (37.9-51.0); HEMOGLOBIN 12.4 g/dL (13.5-17.0); LYMPHOCYTES % (AUTO) 25.3 % (13-45); MEAN CORPUSCULAR HEMOGLOBIN 30.2 pg (27.0-33.4); MEAN CORPUSCULAR HGB CONC 32.8 g/dL (32.0-36.0); MEAN CORPUSCULAR VOLUME 92 fl (80-97); MONOCYTES % (AUTO) 9.6 % (3-13); PLATELET COUNT 195 10^3/uL (150-450); RED BLOOD COUNT 4.11 10^6/uL (4.35-5.55); RED CELL DISTRIBUTION WIDTH 15.8 % (11.5-14.0); SEGMENTED NEUTROPHILS % (AUTO) 56.8 % (42-78); TOTAL CELLS COUNTED % (AUTO) 100 %; WHITE BLOOD COUNT 5.1 10^3/uL (4.0-10.5)
[2017-09-09 07:54] LABS: ANION GAP 15 (5-19); BLOOD UREA NITROGEN 36 mg/dL (7-20); CALCIUM 9.1 mg/dL (8.4-10.2); CARBON DIOXIDE 30 mmol/L (22-30); CHLORIDE 99 mmol/L (98-107); GLUCOSE 80 mg/dL (75-110); POTASSIUM 5.2 mmol/L (3.6-5.0); SODIUM 144.3 mmol/L (137-145)
[2017-09-09] MEDS ORDERED: LIDOCAINE 0.5% INJ-PF (5 MG/ML) 50 ML SDV ONE (08:53)
[2017-09-09] MEDS ORDERED: HEPARIN SOD (PORCINE) 5,000 UNIT/ML 1 ML SYRINGE ONE (08:56)
[2017-09-09] MEDS ORDERED: MIDAZOLAM 2 MG/2 ML INJ ONE (08:56)
[2017-09-09] MEDS ORDERED: FENTANYL CITRATE INJ/PF 100 MCG/2 ML AMPUL ONE (08:56)
--- NOTE | 2017-09-09 10:58 | PDOC DISCHARGE SUMMARY ---
Discharge Summary (SDC) - Discharge Final Diagnosis: #1 lymphedema of right arm. 2. AV fistula right arm. 3. End-stage renal disease on hemodialysis. 4. Increased body mass index 5. Deep venous thrombosis. 6. Hypertension. Date of Surgery: 09/09/17 Discharge Date: 09/09/17 Condition: Fair Treatment or Instructions: Discharge home [after recovery per ASU criteria]. Diet , [renal],as tolerated, when fully awake advance as tolerated. Activities within moderation encouraged. Follow up in my office by appointment in about [1 week]. Call for appointment. Leave wounds [covered], [keep clean and dry, until office visit in 1 week]. Meds per med rec. May shower [in 48 hrs], [try to keep operated area as dry as possible]. Referrals: СВЕТЛАНА WHEELER MD [Primary Care Provider] - Discharge Diet: Other (Comments) - Renal Respiratory Treatments at Home: Deep Breathing/Coughing Discharge Activity: Activity As Tolerated Report the Following to Your Physician Immediately: Shortness of Breath, Unusual Bleeding
--- NOTE | 2017-09-09 11:06 | Operative Report ---
Operative Report DATE OF SURGERY: 09/09/17 PREOPERATIVE DIAGNOSIS: #1 lymphedema of right arm. 2. AV fistula right arm. 3. End-stage renal disease on hemodialysis. 4. Increased body mass index. 5. Deep venous thrombosis. 6. Hypertension. POSTOPERATIVE DIAGNOSIS: #1 lymphedema of right arm. Postcentral angioplasty. 2. AV fistula right arm. 3. End-stage renal disease on hemodialysis. 4. Increased body mass index. 5. Deep venous thrombosis. 6. Hypertension. OPERATION: 1. Needle access into right transposed basilic vein fistula. 2. Central venous angioplasty. 3. Angiogram and interpretation. SURGEON: CORNELIO YEH SENIOR DENTIST: None ANESTHESIA: Moderate Sedation TISSUE REMOVED OR ALTERED: Not applicable. COMPLICATIONS: None. ESTIMATED BLOOD LOSS: 5 mL. INTRAOPERATIVE FINDINGS: Of a robust transposed right basilic vein fistula 7.5 mm in diameter on average. The large amount of subcutaneous edema is noted so that the fistula is actually about 8 mm beneath the skin and not regular palpable. The fistula was wide open and patent up to the mid subclavian. A stenosis in the distal subclavian vein is appreciated short with a lesion of collaterals just before attesting to his hemodynamic significance. Estimated to be 60% % compared to the adjacent lumen. In addition the right innominate vein seems small in comparison to the subclavian and to the superior vena cava. Waists were appreciated in both of these areas which were eliminated for 3-9 mm and then with a 12 mm angioplasty balloon. Some discomfort was appreciated inflation of the balloons attesting to any significant stenoses. The final angiogram demonstrated elimination of the subclavian stenosis and much improved diameter of the right innominate vein. PROCEDURE: PROCEDURE: After verifying the procedure and having obtained informed consent, the patient's right arm was prepared with Chlorhexidine and draped out with sterile linen. Local anesthesia infiltrated. Percutaneous access into the fistula , right, obtained about [4 cm] from the arteriovenous anastomosis using a micro puncture needle followed by micro puncture wire and then a micro puncture catheter. This was done under ultrasound guidance is fistula was so dependent edema so extensive that it could not be safely done otherwise. A 0.[address] [place] wire was inserted, and over this, a 7 Persian short introducer was placed.Angiogram demonstrated the aforementioned findings. Angioplasty was elected. , this was followed by a [9-mm] angioplasty balloon . Angioplasty was serially done from the innominate up to the mid subclavian. Inflating using a 3 mils syringe up to 2 minutes at a time. Completion angiogram showed residual cyst. A 12 mm angioplasty balloon was now inserted and inflation again done with a 3 mils syringe over the involved area for 2 minutes at each inflation. Several inflations were needed to cover the innominate vein and the involved portion of the subclavian.]. Completion angiogram demonstrated [satisfactory result]. The instrumentation was now withdrawn over hand-held pressure for 15 minutes. Dressings applied, procedure concluded. Exposure time: 2.1 minutes. Radiation: 372.9 Sammie bower Contrast: 30 mils. Isovue 300, low osmolality. DICTATING PHYSICIAN: CORNELIO CHESTER M.D. cc: CORNELIO CHESTER M.D. ([id number]) >>
[2017-09-09 13:13] VITALS: BP 169/91
--- NOTE | 2017-09-09 16:43 | RADIOLOGY REPORT (SQ) ---
EXAM DESCRIPTION: FISTULAGRAM W/PLASTY; ANGIOPLASTY BRACHIOCEPHALIC COMPLETED DATE/TIME: 09/09/2017 3:10 pm REASON FOR STUDY: T82.858A T82.858A STENOSIS OF OTHER VASCULAR PROSTH DEV/GRFT, INIT COMPARISON: None. FLUOROSCOPY TIME: 2.1 minutes. 44 images saved to PACS. TECHNIQUE: Intra-operative images acquired during surgical procedure to evaluate progress. NUMBER OF IMAGES: 44 images. LIMITATIONS: None. FINDINGS: Imaging in fluoroscopy during right upper extremity dialysis access evaluation and plasty by Dr. Topete . Please refer to the operative report for further details. IMPRESSION: INTRA PROCEDURAL IMAGING ABOVE . COMMENT: Quality ID [id number]: Final reports for procedures using fluoroscopy that document radiation exp osure indices, or exposure time and number of fluorographic images (if radiation exposure indices are not available) Please consult full operative report of the attending physician for description of the procedure. TECHNICAL DOCUMENTATION: JOB ID: [id number] [employer]- All Rights Reserved
== END 2017-09-09 12:20 | disposition home or self-care (01) ==
LOC: CCL 07:08
PROVIDERS: ATTEND Surgery
PROC: 057B3DZ Dilation of Right Basilic Vein with Intraluminal Device, Percutaneous Approach (ICD-10-PCS; principal; 2017-09-09)
DX: T82.858A Stenosis of other vascular prosthetic devices, implants and grafts, initial encounter (principal); Y83.2 Surgical operation with anastomosis, bypass or graft as the cause of abnormal reaction of the patient, or of later complication, without mention of misadventure at the time of the procedure; I12.0 Hypertensive chronic kidney disease with stage 5 chronic kidney disease or end stage renal disease; N18.6 End stage renal disease; Z99.2 Dependence on renal dialysis; F17.210 Nicotine dependence, cigarettes, uncomplicated; I82.629 Acute embolism and thrombosis of deep veins of unspecified upper extremity; Z86.14 Personal history of Methicillin resistant Staphylococcus aureus infection; Z79.899 Other long term (current) drug therapy
CPT/HCPCS: 36415; 85025; 80048; 36907; 36902; 76937; C1752; C1887; C1894; Q9967; C1769; J1644 ×2; A9270 ×2; J3010; J3490; J2250

== ENCOUNTER 2018-01-07 16:20 | Inpatient (IN) | payer MEDICARE ==
--- NOTE | 2018-01-07 16:28 | ER Document Report ---
ED General - General Stated Complaint: ELEVATED HEART RATE Time Seen by Provider: 01/07/18 16:26 Mode of Arrival: Medic Information source: Patient, Parent TRAVEL OUTSIDE OF THE [place] IN LAST 30 DAYS: No - Related Data Allergies/Adverse Reactions: DRY GAMBRO DIALYZERS Allergy (Unknown, Uncoded 09/04/17 15:02) "BP drop, vomiting" PAPER TAPE Allergy (Uncoded 09/04/17 15:02) Rash Past Medical History - Social History Family History: Reviewed & Not Pertinent - Past Medical History Cardiac Medical History: Reports: Hx Hypercholesterolemia, Hx Hypertension Denies: Hx Coronary Artery Disease, Hx Heart Attack Pulmonary Medical History: Reports: Hx Asthma Denies: Hx Bronchitis, Hx COPD, Hx Pneumonia Neurological Medical History: Denies: Hx Cerebrovascular Accident, Hx Seizures Renal/ Medical History: Reports: Hx End Stage Renal Disease, Hx Hemodialysis. Denies: Hx Peritoneal Dialysis Musculoskeltal Medical History: Reports Hx Arthritis - "DAMAGED NERVE TO RIGHT LEG" Past Surgical History: Reports: Hx Neurologic Surgery - Benign brain tumor removed 2010, Hx Vascular Surgery - Right upper arm AV fistula, right and left PermCaths - Immunizations Hx Diphtheria, Pertussis, Tetanus Vaccination: Yes Hx Pneumococcal Vaccination: 02/07/16
[2018-01-07] MEDS ORDERED: DILTIAZEM HCL INJ 25 MG/5 ML VIAL IV ONE ×2 (16:41→17:26)
[2018-01-07] MEDS ORDERED: DILTIAZEM HCL/D5W 125 MG/125 ML RTUINJ IV PRN (16:41)
--- NOTE | 2018-01-07 16:47 | ER Document Report ---
ED Cardiac - General Chief Complaint: Palpitations Stated Complaint: ELEVATED HEART RATE Time Seen by Provider: 01/07/18 16:26 Mode of Arrival: Medic Notes: The patient is a 57-year-old male, past medical history ESRD (MWF, followed by Dr. Benson), presents from dialysis after his heart rate was found to be in 140s on routine vital sign check before his dialysis. Patient is completely asymptomatic and is not having any chest pain, shortness of breath, feeling palpitations or his heart racing, fever, nausea, vomiting, back pain or syncope. He did not receive any dialysis today. Patient is not on any blood thinners. He has a swollen right arm, but he feels that the swelling has decreased from prior ER visits. TRAVEL OUTSIDE OF THE [place] IN LAST 30 DAYS: No - Related Data Allergies/Adverse Reactions: DRY GAMBRO DIALYZERS Allergy (Unknown, Uncoded 01/07/18 16:45) "BP drop, vomiting" PAPER TAPE Allergy (Uncoded 01/07/18 16:45) Rash Past Medical History - General Information source: Patient, Friend - Social History Smoking Status: Unknown if Ever Smoked Family History: Reviewed & Not Pertinent - Past Medical History Cardiac Medical History: Reports: Hx Hypercholesterolemia, Hx Hypertension Denies: Hx Coronary Artery Disease, Hx Heart Attack Pulmonary Medical History: Reports: Hx Asthma Denies: Hx Bronchitis, Hx COPD, Hx Pneumonia Neurological Medical History: Denies: Hx Cerebrovascular Accident, Hx Seizures Renal/ Medical History: Reports: Hx End Stage Renal Disease, Hx Hemodialysis. Denies: Hx Peritoneal Dialysis Musculoskeltal Medical History: Reports Hx Arthritis - "DAMAGED NERVE TO RIGHT LEG" Past Surgical History: Reports: Hx Neurologic Surgery - Benign brain tumor removed 2010, Hx Vascular Surgery - Right upper arm AV fistula, right and left PermCaths - Immunizations Hx Diphtheria, Pertussis, Tetanus Vaccination: Yes Hx Pneumococcal Vaccination: 02/07/16 Review of Systems - Review of Systems Notes: REVIEW OF SYSTEMS: CONSTITUTIONAL: -fevers, -chills EENT: -eye pain, -difficulty swallowing, -nasal congestion CARDIOVASCULAR: -chest pain, -syncope. RESPIRATORY: -cough, -SOB GASTROINTESTINAL: -abdominal pain, -nausea, -vomiting, -diarrhea MUSCULOSKELETAL: +swollen right arm, -back pain, -neck pain SKIN: -rash or skin lesions. HEMATOLOGIC: -easy bruising or bleeding. LYMPHATIC: -swollen, enlarged glands. NEUROLOGICAL: -altered mental status or loss of consciousness, -headache, - neurologic symptoms PSYCHIATRIC: -anxiety, -depression. ALL OTHER SYSTEMS REVIEWED AND NEGATIVE. Physical Exam - Vital signs Vitals: Resp Pulse Ox 11 L 98 01/07/18 16:32 01/07/18 16:32 - Notes Notes: PHYSICAL EXAMINATION: GENERAL: Well-appearing, well-nourished and in no acute distress. HEAD: Atraumatic, normocephalic. EYES: Pupils equal round and reactive to light, extraocular movements intact, sclera anicteric, conjunctiva are normal. ENT: nares patent, oropharynx clear without exudates. Moist mucous membranes. NECK: Normal range of motion, supple without lymphadenopathy LUNGS: Breath sounds clear to auscultation bilaterally and equal. No wheezes rales or rhonchi. HEART: Tachycardia, regular rhythm. ABDOMEN: Soft, nontender, normoactive bowel sounds. No guarding, no rebound. No masses appreciated. EXTREMITIES: Chronic swelling of right upper arm around fistula site, Normal range of motion. No cyanosis. NEUROLOGICAL: Cranial nerves grossly intact. Normal speech, normal gait. Normal sensory and motor exams. PSYCH: Normal mood, normal affect. SKIN: Warm, Dry, normal turgor, no rashes or lesions noted. Course - Re-evaluation Re-evalutation: Patient found to be in new onset A. fib flutter with a 2-1 block on arrival. He is having no symptoms and is hemodynamically stable. Unsure when the flutter started he is not on any anticoagulation at this time. Blood work is remarkable with his CKD. Potassium is 5.8, but he did not receive dialysis this morning. Patient's atrial flutter with 1:2 block converted after 20 mg diltiazem and then 25 mg diltiazem. He was maintained on a 15 mg/h drip. Patient continued to remain asymptomatic and has never had chest pain or shortness of breath. 01/07/18 18:[address] Wheeler and said that he is not the patient's primary care physician anymore since he has not been seen for the past 3 years. He recommends admission to the hospitalist. Pt says that Dr. Benson, his corporate sales trainer, acts as his PMD. Pt rate-controlled to 80's and then has intermittent periods of RVR to 130's for a few seconds. Diltiazem drip increased to 20 mg/hr. 01/07/18 19:[address] Mosley (Hospitalist) and he has accepted patient to [facility] as Inpatient. Spoke to Dr. Magdy Benson and he will dialyze patient in the morning. He recommends Kayexalate tonight to help tide him over until the morning. 01/07/18 19:46 Pt with chronic right IJ and brachial thrombi. He said he was only on anticoagulation for 2 weeks. Hospitalist is aware of the results and will decide about anticoagulation, along with help from corporate sales trainer. - Vital Signs Vital signs: Temp Pulse Resp BP Pulse Ox 98.2 F 13 123/84 97 01/07/18 16:44 01/07/18 19:01 01/07/18 19:01 01/07/18 19:01 - Laboratory Result Diagrams: 01/07/18 16:35 01/07/18 16:35 Laboratory results interpreted by me: 01/07/18 01/07/18 01/07/18 16:35 16:35 16:35 RBC 3.83 L Hgb 11.9 L Hct 35.4 L RDW 15.7 H APTT 51.7 H Potassium 5.8 H Chloride 96 L Anion Gap 21 H BUN 75 H Creatinine 16.22 H Est GFR ( Amer) 4 L Est GFR (Non-Af Amer) 3 L ALT 14 L - Diagnostic Test Radiology reviewed: Image reviewed, Reports reviewed Radiology results interpreted by me: CXR: NAD - EKG Interpretation by Me EKG shows normal: Sinus rhythm Rate: Tachycardia Rhythm: A.Flutter, with a 2:1 Block When compared to previous EKG there are: Changes noted Critical Care Note - Critical Care Note Total time excluding time spent on procedures (mins): 45 Discharge - Discharge Clinical Impression: New onset atrial flutter Internal jugular (IJ) vein thromboembolism, chronic Qualifiers: Laterality: right Qualified Code(s): I82.C21 - 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
[2018-01-07 16:52] LABS: ABSOLUTE EOSINOPHILS # (AUTO) 0.3 10^3/uL (0.0-0.6); ABSOLUTE LYMPHOCYTES (AUTO) 1.9 10^3/uL (0.5-4.7); ABSOLUTE MONOCYTES (AUTO) 0.7 10^3/uL (0.1-1.4); ABSOLUTE NEUT (AUTO) 3.9 10^3/uL (1.7-8.2); BASOPHILS % (AUTO) 0.3 % (0-2); EOSINOPHILS % (AUTO) 4.2 % (0-6); HEMATOCRIT 35.4 % (37.9-51.0); HEMOGLOBIN 11.9 g/dL (13.5-17.0); LYMPHOCYTES % (AUTO) 28.2 % (13-45); MEAN CORPUSCULAR HEMOGLOBIN 30.9 pg (27.0-33.4); MEAN CORPUSCULAR HGB CONC 33.5 g/dL (32.0-36.0); MEAN CORPUSCULAR VOLUME 92 fl (80-97); MONOCYTES % (AUTO) 10.5 % (3-13); PLATELET COUNT 201 10^3/uL (150-450); RED BLOOD COUNT 3.83 10^6/uL (4.35-5.55); RED CELL DISTRIBUTION WIDTH 15.7 % (11.5-14.0); SEGMENTED NEUTROPHILS % (AUTO) 56.8 % (42-78); TOTAL CELLS COUNTED % (AUTO) 100 %; WHITE BLOOD COUNT 6.9 10^3/uL (4.0-10.5)
[2018-01-07 16:57] LABS: INTERNATIONAL RATION (INR) 1.05; PROTHROMBIN TIME 14.3 SEC (11.4-15.4)
[2018-01-07 16:58] LABS: PARTIAL THROMBOPLASTIN TIME 51.7 SEC (23.5-35.8)
[2018-01-07 17:11] LABS: ALANINE AMINOTRANSFERASE 14 U/L (21-72); ALBUMIN 4.3 g/dL (3.5-5.0); ALKALINE PHOSPHATASE 66 U/L (38-126); ASPARTATE AMINO TRANSFERASE 17 U/L (17-59); BILIRUBIN,DIRECT 0.3 mg/dL (0.0-0.4); BILIRUBIN,TOTAL 0.3 mg/dL (0.2-1.3); BLOOD UREA NITROGEN 75 mg/dL (7-20); CALCIUM 9.6 mg/dL (8.4-10.2); CARBON DIOXIDE 24 mmol/L (22-30); CREATINE KINASE 160 U/L (55-170); GLUCOSE 98 mg/dL (75-110); POTASSIUM 5.8 mmol/L (3.6-5.0); TOTAL PROTEIN 7.9 g/dL (6.3-8.2)
[2018-01-07 17:17] LABS: ANION GAP 21 (5-19); CHLORIDE 96 mmol/L (98-107); SODIUM 140.9 mmol/L (137-145)
--- NOTE | 2018-01-07 17:41 | RADIOLOGY REPORT (SQ) ---
EXAM DESCRIPTION: CHEST SINGLE VIEW COMPLETED DATE/TIME: 01/07/2018 5:29 pm REASON FOR STUDY: tachycardia COMPARISON: Chest films 06/04/2017 EXAM PARAMETERS: NUMBER OF VIEWS: One view. TECHNIQUE: Single frontal radiographic view of the chest acquired. RADIATION DOSE: NA LIMITATIONS: None. FINDINGS: LUNGS AND PLEURA: No opacities, masses or pneumothorax. No pleural effusion. MEDIASTINUM AND HILAR STRUCTURES: No masses. Contour normal. HEART AND VASCULAR STRUCTURES: Mild cardiomegaly BONES: No acute findings. HARDWARE: Surgical clips right upper arm for dialysis access OTHER: No other significant finding. IMPRESSION: Mild cardiomegaly. No acute infiltrates or pleural effusion. TECHNICAL DOCUMENTATION: JOB ID: [id number] [employer]- All Rights Reserved Reading location - IP/workstation name: [email or web address]
[2018-01-07] MEDS ORDERED: ACETAMINOPHEN 325 MG TABLET PO PRN (19:23)
[2018-01-07] MEDS ORDERED: ONDANSETRON HCL INJ/PF 4 MG/2 ML SDV IV PRN (19:23)
--- NOTE | 2018-01-07 19:49 | PDOC H&P ---
History of Present Illness Admission Date/PCP: СВЕТЛАНА WHEELER MD History of Present Illness: CHRISTIAN OCAMPO is a 57 year old black male patient transferred from his primary athletic coach office of Dr. Benson for tachycardia. Patient supposed to have his dialysis today and during routine checkup for vital sign patient found to have tachycardia in the 140s. EKG revealed a flutter. Otherwise patient is clinically asymptomatic, he does not complain of chest pain, fever, chills, cough, nausea, vomiting, abdominal pain or any change in his bowel habits. His venous Doppler revealed right jugular chronic venous thrombosis which is not new , it has been there since September 2017. He had been started on anticoagulant but hasd been stopped. During my encounter his heart rate was around 70 while he has been on Cardizem drip. Patient also noted to have hyperkalemia of 5.8 for which she was given Kayexalate by the ER attending. Past Medical History Cardiac Medical History: Reports: Hyperlipidema, Hypertension Denies: Coronary Artery Disease, Myocardial Infarction Pulmonary Medical History: Reports: Asthma Denies: Bronchitis, Chronic Obstructive Pulmonary Disease (COPD), Pneumonia Neurological Medical History: Denies: Seizures Renal/ Medical History: Reports: End Stage Renal Disease Musculoskeltal Medical History: Reports: Arthritis - "DAMAGED NERVE TO RIGHT LEG " Hematology: Denies: Anemia Past Surgical History Past Surgical History: Reports: Vascular Surgery - Right upper arm AV fistula, right and left PermCaths Social History Smoking Status: Current Every Day Smoker Frequency of Alcohol Use: Occasional Hx Recreational Drug Use: No Hx Prescription Drug Abuse: No Family History Family History: Reviewed & Not Pertinent, Hypertension Parental Family History Reviewed: Yes Children Family History Reviewed: Yes Sibling(s) Family History Reviewed.: Yes Medication/Allergy Allergies/Adverse Reactions: DRY GAMBRO DIALYZERS Allergy (Unknown, Uncoded 01/07/18 16:45) "BP drop, vomiting" PAPER TAPE Allergy (Uncoded 01/07/18 16:45) Rash Review of Systems Constitutional: PRESENT: as per HPI Eyes: PRESENT: as per HPI Respiratory: PRESENT: as per HPI Gastrointestinal: PRESENT: as per HPI Neurological: PRESENT: as per HPI Psychiatric: PRESENT: as per HPI Physical Exam Vital Signs: Temp Pulse Resp BP Pulse Ox 98.2 F 13 123/84 97 01/07/18 16:44 01/07/18 19:01 01/07/18 19:01 01/07/18 19:01 Intake & Output 01/06/18 01/07/18 01/08/18 06:59 06:59 06:59 Weight 95.7 kg General appearance: PRESENT: no acute distress, cooperative Respiratory exam: PRESENT: clear to auscultation dave. ABSENT: rales, rhonchi, wheezes Cardiovascular exam: PRESENT: RRR. ABSENT: diastolic murmur, rubs, systolic murmur GI/Abdominal exam: PRESENT: normal bowel sounds, soft. ABSENT: distended, guarding, mass, organolmegaly, rebound, tenderness Musculoskeletal exam: PRESENT: other - Right upper arm boggy swelling around his dialysis fistula site Results Laboratory Results: 01/07/18 16:35 01/07/18 16:35 01/07/18 01/07/18 16:35 16:35 WBC 6.9 RBC 3.83 L Hgb 11.9 L Hct 35.4 L MCV 92 MCH 30.9 MCHC 33.5 RDW 15.7 H Plt Count 201 Seg Neutrophils % 56.8 Lymphocytes % 28.2 Monocytes % 10.5 Eosinophils % 4.2 Basophils % 0.3 Absolute Neutrophils 3.9 Absolute Lymphocytes 1.9 Absolute Monocytes 0.7 Absolute Eosinophils 0.3 Absolute Basophils 0.0 Sodium 140.9 Potassium 5.8 H Chloride 96 L Carbon Dioxide 24 Anion Gap 21 H BUN 75 H Creatinine 16.22 H Est GFR ( Amer) 4 L Est GFR (Non-Af Amer) 3 L Glucose 98 Calcium 9.6 Total Bilirubin 0.3 AST 17 ALT 14 L Alkaline Phosphatase 66 Total Protein 7.9 Albumin 4.3 01/07/18 16:35 Creatine Kinase 160 Impressions: Chest X-Ray 01/07/18 16:35 IMPRESSION: Mild cardiomegaly. No acute infiltrates or pleural effusion. Assessment & Plan - Diagnosis (1) New onset atrial flutter Is this a current diagnosis for this admission?: Yes Plan: His heart rate is improving so we will taper and discontinue the Cardizem drip. Patient started on p.o. Cardizem 60 mg every 8 hours. (2) Hyperkalemia Is this a current diagnosis for this admission?: Yes Plan: Patient given Kayexalate and will check his basic metabolic panel and magnesium level in a.m. (3) End-stage renal disease on hemodialysis Is this a current diagnosis for this admission?: Yes Plan: Management per her primary athletic coach Dr. Benson. (4) Hypertension Qualifiers: Hypertension type: essential hypertension Qualified Code(s): I10 - Essential (primary) hypertension Is this a current diagnosis for this admission?: Yes Plan: Continue his home medication. - Time Time Spent: 30 to 50 Minutes - Inpatient Certification Medical Necessity: Need For Continuous Telemetry Monitoring
--- NOTE | 2018-01-07 20:11 | RADIOLOGY REPORT (SQ) ---
EXAM DESCRIPTION: VENOUS UNILATERAL UPPER COMPLETED DATE/TIME: 01/07/2018 7:38 pm REASON FOR STUDY: RUE swelling, Hx of DVT, not on blood thinners COMPARISON: 07/18/2017 TECHNIQUE: Dynamic and static bower scale and color images acquired of the right arm venous system. S elected spectral images acquired with additional compression and augmentation maneuvers. The contrala teral subclavian vein and internal jugular vein were also imaged. Images stored on PACS. LIMITATIONS: None. FINDINGS: INTERNAL JUGULAR VEIN: Occlusive thrombus. No flow. SUBCLAVIAN VEIN: Normal compression, augmentation. No visualized echogenic material on bower scale. No defects on color images. AXILLARY VEIN: Normal compression, augmentation. No visualized echogenic material on bower scale. No d efects on color images. BRACHIAL VEIN: Cannot be seen because of bandage. BASILIC VEIN: Could not be seen. CEPHALIC VEIN: Thrombus is present in cephalic vein. OTHER: No other significant finding. CONTRALATERAL SUBCLAVIAN VEIN AND INTERNAL JUGULAR VEIN: Normal phasicity, compression and augmentation. No visualized echogenic material on bower scale. No de fects on color images. IMPRESSION: DVT in the right internal jugular vein. SVT in the cephalic vein. TECHNICAL DOCUMENTATION: JOB ID: [id number] [employer]- All Rights Reserved Reading location - IP/workstation name: [email or web address]
[2018-01-07] MEDS ORDERED: DILTIAZEM HCL 180 MG CAPSULE.CR PO SCH (22:00)
[2018-01-07] MEDS ORDERED: DILTIAZEM HCL 60 MG TABLET PO SCH (22:00)
--- NOTE | 2018-01-07 23:20 | EKG REPORT ---
SEVERITY:- ABNORMAL ECG - ATRIAL FLUTTER, A-RATE 283 ABNORMAL T, CONSIDER ISCHEMIA, LATERAL LEADS : Confirmed by: Ana Hagan 07-Jan-2018 23:19:59
--- NOTE | 2018-01-07 23:22 | EKG REPORT ---
SEVERITY:- ABNORMAL ECG - ATRIAL FLUTTER WITH 2:1 CONDUCTIN NONSPECIFIC T ABNORMALITIES, LATERAL LEADS ST ELEVATION SUGGESTS PERICARDITIS PROLONGED QT INTERVAL : Confirmed by: Ana Hagan 07-Jan-2018 23:21:37
[2018-01-08] MEDS ORDERED: DILTIAZEM HCL INJ 25 MG/5 ML VIAL ONE (00:24)
[2018-01-08] MEDS: HEPARIN SOD (PORCINE) 5,000 UNIT/ML 1 ML SYRINGE SUBCUT SCH ×2 (01:27→05:09)
[2018-01-08 04:17] LABS: ABSOLUTE BASOPHILS # (AUTO) 0.1 10^3/uL (0.0-0.2); ABSOLUTE EOSINOPHILS # (AUTO) 0.3 10^3/uL (0.0-0.6); ABSOLUTE LYMPHOCYTES (AUTO) 1.7 10^3/uL (0.5-4.7); ABSOLUTE MONOCYTES (AUTO) 0.7 10^3/uL (0.1-1.4); ABSOLUTE NEUT (AUTO) 4.1 10^3/uL (1.7-8.2); BASOPHILS % (AUTO) 1.2 % (0-2); EOSINOPHILS % (AUTO) 4.9 % (0-6); HEMATOCRIT 35.1 % (37.9-51.0); HEMOGLOBIN 11.8 g/dL (13.5-17.0); LYMPHOCYTES % (AUTO) 24.9 % (13-45); MEAN CORPUSCULAR HEMOGLOBIN 31.3 pg (27.0-33.4); MEAN CORPUSCULAR HGB CONC 33.6 g/dL (32.0-36.0); MEAN CORPUSCULAR VOLUME 93 fl (80-97); MONOCYTES % (AUTO) 9.5 % (3-13); PLATELET COUNT 187 10^3/uL (150-450); RED BLOOD COUNT 3.78 10^6/uL (4.35-5.55); SEGMENTED NEUTROPHILS % (AUTO) 59.5 % (42-78); TOTAL CELLS COUNTED % (AUTO) 100 %; WHITE BLOOD COUNT 6.9 10^3/uL (4.0-10.5)
[2018-01-08 04:37] LABS: BLOOD UREA NITROGEN 82 mg/dL (7-20); GLUCOSE 126 mg/dL (75-110); POTASSIUM 5.4 mmol/L (3.6-5.0)
[2018-01-08 04:57] LABS: CARBON DIOXIDE 23 mmol/L (22-30); CHLORIDE 95 mmol/L (98-107); SODIUM 138.2 mmol/L (137-145)
[2018-01-08] MEDS: LANSOPRAZOLE 30 MG TAB.RAP.DR PO SCH (05:09)
[2018-01-08 05:28] LABS: ANION GAP 20 (5-19)
[2018-01-08] MEDS ORDERED: ZOLPIDEM TARTRATE 5 MG TABLET PO PRN (08:29)
[2018-01-08] MEDS ORDERED: OXYCODONE-ACETAMINOPHEN 5-325 MG TABLET PO PRN (08:29)
[2018-01-08] MEDS ORDERED: HEPARIN SOD (PORCINE) 1,000 UNIT/ML 10 ML VIAL ONE (09:24)
[2018-01-08] MEDS ORDERED: LISINOPRIL 10 MG TABLET PO SCH (10:00)
--- NOTE | 2018-01-08 10:07 | PDOC CONSULTATION ---
Consultation Consult Date: 01/08/18 Consult reason:: ACUTE Hemodialysis History of Present Illness Admission Date/PCP: 01/07/18 19:53 СВЕТЛАНА WHEELER MD History of Present Illness: CHRISTIAN OCAMPO is a 57 year old male with a history of hypertension, ESRD on dialysis was admitted with asymptomatic rapid afib/flutter with a heart rate of 140- 160 /min. I saw him yesterday at [facility] while he was getting ready to be started on dialysis when he was found t have a rapid heart rate. He was then transferred to [facility] without having put on dialysis. He is now in the ICU and was started on a IV Diltiazem drip. He did respond to it initially and then soon aftr he was started on dialysis he has gone back to the [facility]. He remains asymptomatic for any chest pains, dyspnea. Labs and meds were reviewed .Orders were discussed with the treating nurse first aid. Past Medical History Cardiac Medical History: Reports: Hyperlipidemia, Hypertension-primary Denies: Coronary Artery Disease, Myocardial Infarction Pulmonary Medical History: Reports: Asthma Denies: Bronchitis, Chronic Obstructive Pulmonary Disease (COPD), Pneumonia Neurological Medical History: Denies: Seizures Renal/ Medical History: Reports: End Stage Renal Disease, Secondary Hyperparathyroidism Musculoskeltal Medical History: Reports: Arthritis - "DAMAGED NERVE TO RIGHT LEG " Hematology Medical History: Reports Anemia of Chronic Kidney Disease Past Surgical History Past Surgical History: Reports: Vascular Surgery - Right upper arm AV fistula, right and left PermCaths Social History Smoking Status: Current Every Day Smoker Cigarettes Packs Per Day: 0.5 Number of Years Smokin Frequency of Alcohol Use: Occasional Hx Recreational Drug Use: No Drugs: None Hx Prescription Drug Abuse: No - Advance Directive Resuscitation Status: Full Code Family History Parental Family History Reviewed: Yes - negative for esrd Children Family History Reviewed: Yes - daughter with ypertension has ESRD and on dialysis. Sibling(s) Family History Reviewed.: No Medication/Allergy Home Medications: B Complex W-C No.20/Folic Acid [Renal Caps Softgel] 1 cap PO DAILY 01/07/18 Calcium Acetate [Phoslo 667 Mg Capsule] 667 mg PO TID 01/07/18 Clonidine HCl [Catapres 0.1 mg Tablet] 0.1 mg PO QHS 01/07/18 Lisinopril [Prinivil 10 mg Tablet] 10 mg PO DAILY 01/07/18 Simvastatin [Zocor 20 mg Tablet] 20 mg PO QHS 01/07/18 Sucroferric Oxyhydroxide [Velphoro] 1,500 mg PO MEALS 01/07/18 Allergies/Adverse Reactions: DRY GAMBRO DIALYZERS Allergy (Unknown, Uncoded 01/07/18 16:45) "BP drop, vomiting" PAPER TAPE Allergy (Uncoded 01/07/18 16:45) Rash Review of Systems Constitutional: PRESENT: fatigue. ABSENT: chills, fever(s), headache(s), night sweats, weakness, weight gain Cardiovascular: PRESENT: edema. ABSENT: chest pain, dyspnea on exertion, orthropnea Gastrointestinal: ABSENT: abdominal pain, bloating, diarrhea, dysphagia, hematemesis, nausea, vomiting Neurological: ABSENT: abnormal speech, confusion, focal weakness Hematologic/Lymphatic: ABSENT: easy bruising, lymphadenopathy Physical Exam Vital Signs: Temp Pulse Resp BP Pulse Ox 97.7 F 134 H 20 119/90 H 100 01/08/18 05:05 01/08/18 01:49 01/08/18 06:00 01/08/18 05:54 01/08/18 06:00 Intake & Output 01/07/18 01/08/18 01/09/18 06:59 06:59 06:59 Intake Total 62 Output Total 0 Balance 62 Weight 103.3 kg General appearance: PRESENT: no acute distress Eye exam: PRESENT: conjunctiva pink, EOMI, PERRLA Ear exam: PRESENT: normal external ear exam Mouth exam: PRESENT: moist, neck supple Neck exam: ABSENT: lymphadenopathy, meningismus, tenderness, thyromegaly, tracheal deviation Respiratory exam: PRESENT: clear to auscultation dave. ABSENT: crackles, rhonchi Cardiovascular exam: PRESENT: +S1, +S2, systolic murmur GI/Abdominal exam: PRESENT: normal bowel sounds, soft. ABSENT: organomegaly, tenderness Neurological exam: PRESENT: alert, awake, oriented to person, oriented to place , oriented to time Skin exam: ABSENT: cyanosis, dry, erythema, mottled Results Laboratory Results: 01/08/18 03:58 01/08/18 03:58 01/08/18 01/08/18 01/08/18 03:58 03:58 03:58 WBC 6.9 RBC 3.78 L Hgb 11.8 L Hct 35.1 L MCV 93 MCH 31.3 MCHC 33.6 RDW 16.0 H Plt Count 187 Seg Neutrophils % 59.5 Lymphocytes % 24.9 Monocytes % 9.5 Eosinophils % 4.9 Basophils % 1.2 Absolute Neutrophils 4.1 Absolute Lymphocytes 1.7 Absolute Monocytes 0.7 Absolute Eosinophils 0.3 Absolute Basophils 0.1 Sodium 138.2 Potassium 5.4 H Chloride 95 L Carbon Dioxide 23 Anion Gap 20 H BUN 82 H Creatinine 16.70 H Est GFR ( Amer) 4 L Est GFR (Non-Af Amer) 3 L Glucose 126 H Calcium 9.0 TSH 1.88 Impressions: Chest X-Ray 01/07/18 16:35 IMPRESSION: Mild cardiomegaly. No acute infiltrates or pleural effusion. Venous Doppler Study 01/07/18 17:27 IMPRESSION: DVT in the right internal jugular vein. SVT in the cephalic vein. Assessment & Plan - Diagnosis (1) End-stage renal disease on hemodialysis Is this a current diagnosis for this admission?: Yes Plan: Currently on dialysis.Undergoing dialysis without any issues.Dialysis is being supervised to ensure a safe and smooth procedure.He is in rapid a.flutter.Will restart IV Diltiazem which was on hold. Orders were discussed with treating RN.His K should respond to the dialysis as well as his mild CHF. (2) Hyperkalemia Is this a current diagnosis for this admission?: Yes (3) Hypertension Qualifiers: Hypertension type: essential hypertension Qualified Code(s): I10 - Essential (primary) hypertension Is this a current diagnosis for this admission?: Yes Plan: Stable. (4) New onset atrial flutter Plan: As per primary and cardiology.
[2018-01-08] MEDS ORDERED: METOPROLOL SUCCINATE 25 MG TAB.SR.24H PO SCH ×2 (10:30→22:00)
[2018-01-08] MEDS ORDERED: METOPROLOL SUCCINATE 25 MG TAB.SR.24H PO ONE (10:30)
[2018-01-08] MEDS ORDERED: METOPROLOL TARTRATE PF/INJ 5 MG/5 ML SDV IV PRN ×2 (10:48→12:54)
[2018-01-08] MEDS: APIXABAN 2.5 MG TABLET PO SCH ×2 (10:58→18:19)
[2018-01-08] MEDS ORDERED: DRONEDARONE HYDROCHLORIDE 400 MG TABLET PO ONE (11:30)
[2018-01-08] MEDS ORDERED: AMIODARONE HCL 150 MG in DEXTROSE 5%-WATER 100 ML IV ONE ×2 (11:30→14:00)
[2018-01-08] MEDS: CALCIUM ACETATE 667 MG CAPSULE PO SCH ×3 (11:54→18:19)
[2018-01-08] MEDS: FOLIC ACID/VITAMIN B COMP W-C CAPSULE PO SCH (11:54)
[2018-01-08] MEDS ORDERED: DEXTROSE 5%-WATER 500 ML with AMIODARONE HCL 900 MG IV PRN ×2 (12:00)
[2018-01-08] MEDS ORDERED: SUCROFERRIC OXYHYDROXIDE 1500 MG PO SCH (12:00)
[2018-01-08 14:28] LABS: CREATINE KINASE MB 1.98 ng/mL (<4.55); TROPONIN I 0.082 ng/mL
--- NOTE | 2018-01-08 14:31 | PDOC TRANSFER SUMMARY ---
General Admission Date/PCP: 01/07/18 19:53 Admission Date: 01/07/18 Transfer Date: 01/08/18 Accepting Facility: [facility] Accepting Physician: Dr Nguyen Resuscitation Status: Full Code - Transfer Diagnosis (1) New onset atrial flutter Is this a current diagnosis for this admission?: Yes (2) End-stage renal disease on hemodialysis Is this a current diagnosis for this admission?: Yes (3) Hyperkalemia Is this a current diagnosis for this admission?: Yes (4) Hypertension Is this a current diagnosis for this admission?: Yes (5) Tobacco dependence Is this a current diagnosis for this admission?: Yes - Transfer Medications Home Medications: B Complex W-C No.20/Folic Acid [Renal Caps Softgel] 1 cap PO DAILY 01/07/18 Calcium Acetate [Phoslo 667 Mg Capsule] 667 mg PO TID 01/07/18 Clonidine HCl [Catapres 0.1 mg Tablet] 0.1 mg PO QHS 01/07/18 Lisinopril [Prinivil 10 mg Tablet] 10 mg PO DAILY 01/07/18 Simvastatin [Zocor 20 mg Tablet] 20 mg PO QHS 01/07/18 Sucroferric Oxyhydroxide [Velphoro] 1,500 mg PO MEALS 01/07/18 Transfer Medications: Current Medications Acetaminophen (Tylenol 325 Mg Tablet) 650 mg PO Q4HP PRN PRN Reason: FOR BREAKTHROUGH PAIN Stop: 02/06/18 19:22 Apixaban (Eliquis 2.5 Mg Tablet) 2.5 mg PO BID [facility] Stop: 02/07/18 09:59 Last Admin: 01/08/18 10:58 Dose: 2.5 mg Calcium Acetate (Phoslo 667 Mg Capsule) 667 mg PO TID [facility] Stop: 02/07/18 09:59 Last Admin: 01/08/18 11:54 Dose: 667 mg Clonidine (Catapres 0.1 Mg Tablet) 0.1 mg PO QHS [facility] Stop: 02/07/18 21:59 Diltiazem HCl (Cardizem Cd 180 Mg Capsule) 180 mg PO QHS [facility] Stop: 02/06/18 21:59 Last Admin: 01/07/18 22:05 Dose: 180 mg Amiodarone HCl 900 mg/ (Dextrose) 500 mls @ 0 mls/hr IV CONTINUOUS PRN; Protocol; Per Protocol PRN Reason: THIS MED IS NOT "PRN" Stop: 01/11/18 11:59 Last Admin: 01/08/18 11:57 Dose: 900 mg Lansoprazole (Prevacid 30 Mg Odt Tablet) 30 mg PO Q6AM [facility] Stop: 02/07/18 05:59 Last Admin: 01/08/18 05:09 Dose: 30 mg Lisinopril (Prinivil 10 Mg Tablet) 10 mg PO DAILY [facility] Stop: 02/07/18 09:59 Last Admin: 01/08/18 10:58 Dose: 10 mg Metoprolol Succinate (Toprol Xl 50 Mg Tab.Sr) 50 mg PO Q12 [facility] Stop: 02/07/18 21:59 Metoprolol Tartrate (Lopressor Inj/Pf 5 Mg/5 Ml Sdv) 5 mg IV Q5MP PRN Stop: 01/08/18 23:59 Last Admin: 01/08/18 10:58 Dose: 5 mg Metoprolol Tartrate (Lopressor Inj/Pf 5 Mg/5 Ml Sdv) 5 mg IV Q5MP PRN PRN Reason: HR>100 Stop: 02/07/18 12:53 Multivit/Ca Carb/B Cmplx/FA/Prenat (Nephrocaps Multiple Vitamin Capsule) 1 cap PO DAILY [facility] Stop: 02/07/18 09:59 Last Admin: 01/08/18 11:54 Dose: 1 cap Ondansetron HCl (Zofran Inj/Pf 4 Mg/2 Ml Sdv) 4 mg IV Q8HP PRN PRN Reason: FOR NAUSEA/VOMITING Stop: 02/06/18 19:22 Oxycodone/Acetaminophen (Percocet 5-325 Mg Tablet) 1 tab PO Q6HP PRN PRN Reason: FOR PAIN SCALE 3-5 Stop: 01/15/18 08:28 Patient Own Medication (Sucroferric Oxyhydroxide [Velphoro]) 1,500 mg PO .MEALS [facility] Stop: 02/07/18 11:59 Senna/Docusate Sodium (Senna Plus Tablet) 1 each PO QHS [facility] Stop: 02/07/18 21:59 Simvastatin (Zocor 10 Mg Tablet) 20 mg PO QHS [facility] Stop: 02/07/18 21:59 Zolpidem Tartrate (Ambien 5 Mg Tablet) 2.5 mg PO HSP PRN PRN Reason: SLEEP OR INSOMNIA Stop: 01/15/18 08:28 - Allergies Allergies/Adverse Reactions: DRY GAMBRO DIALYZERS Allergy (Unknown, Uncoded 01/07/18 16:45) "BP drop, vomiting" PAPER TAPE Allergy (Uncoded 01/07/18 16:45) Rash - Diet/Activity Discharge Diet: Other (Comments) - Pre-renal Hospital Course Hospital Course: CHRISTIAN OCAMPO is a 57 year old black male patient transferred from his primary hydrotherapist office of Dr. Benson for tachycardia. Patient supposed to have his dialysis on the day of admission and during routine checkup for vital signs patient was found to have tachycardia in the 140s. EKG revealed atrial flutter. Otherwise patient iwas clinically asymptomatic. He did not complain of chest pain, fever, chills, cough, nausea, vomiting, abdominal pain or any change in his bowel habits. 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 Patient was started on Cardizem drip and admitted under the hospitalist service to ICU. Patient heart rate remained erratic while on Cardizem drip. He was evaluated by local cotton jammer Dr. Hagan. He assisted in making arrangements for patient to be transfered to [facility] since patient would benefit from further intervention such as ablation which is not available in our facility. Patient had dialysis while in ICU on the day of transfer. He had remained stable while hospitalized. Is my understanding that patient was accepted by Dr. Reynoso at [facility] Physical Exam Vital Signs: Temp Pulse Resp BP Pulse Ox 97.5 F 128 H 16 111/75 98 01/08/18 12:00 01/08/18 13:55 01/08/18 14:00 01/08/18 13:55 01/08/18 14:00 Intake & Output 01/07/18 01/08/18 01/09/18 06:59 06:59 06:59 Intake Total 62 960 Output Total 0 Balance 62 960 Weight 103.3 kg General appearance: PRESENT: no acute distress, cooperative, obese Head exam: PRESENT: atraumatic, normocephalic Eye exam: PRESENT: conjunctiva pink, EOMI, PERRLA Ear exam: PRESENT: normal external ear exam Neck exam: PRESENT: full ROM. ABSENT: JVD, lymphadenopathy, tenderness, thyromegaly Respiratory exam: PRESENT: clear to auscultation dave Cardiovascular exam: PRESENT: irregular rhythm. ABSENT: diastolic murmur, systolic murmur Vascular exam: PRESENT: normal capillary refill GI/Abdominal exam: PRESENT: normal bowel sounds, soft. ABSENT: tenderness Extremities exam: PRESENT: full ROM. ABSENT: pedal edema, tenderness Musculoskeletal exam: PRESENT: ambulatory Neurological exam: PRESENT: alert, awake, oriented to person, oriented to place , oriented to time, oriented to situation, CN II-XII grossly intact Psychiatric exam: PRESENT: appropriate affect, normal mood Skin exam: PRESENT: intact, normal color Results Laboratory Results: 01/08/18 03:58 01/08/18 03:58 01/08/18 01/08/18 01/08/18 03:58 03:58 03:58 WBC 6.9 RBC 3.78 L Hgb 11.8 L Hct 35.1 L MCV 93 MCH 31.3 MCHC 33.6 RDW 16.0 H Plt Count 187 Seg Neutrophils % 59.5 Lymphocytes % 24.9 Monocytes % 9.5 Eosinophils % 4.9 Basophils % 1.2 Absolute Neutrophils 4.1 Absolute Lymphocytes 1.7 Absolute Monocytes 0.7 Absolute Eosinophils 0.3 Absolute Basophils 0.1 Sodium 138.2 Potassium 5.4 H Chloride 95 L Carbon Dioxide 23 Anion Gap 20 H BUN 82 H Creatinine 16.70 H Est GFR ( Amer) 4 L Est GFR (Non-Af Amer) 3 L Glucose 126 H Calcium 9.0 TSH 1.88 01/08/18 13:47 Creatine Kinase 120 Impressions: Chest X-Ray 01/07/18 16:35 IMPRESSION: Mild cardiomegaly. No acute infiltrates or pleural effusion. Venous Doppler Study 01/07/18 17:27 IMPRESSION: DVT in the right internal jugular vein. SVT in the cephalic vein. Plan Discharge Plan: Transfer to [facility] on their Dr. Nguyen Time Spent: Less than 30 Minutes
--- NOTE | 2018-01-08 16:32 | PDOC PROGRESS REPORT ---
Subjective Progress Note for:: 01/08/18 Subjective:: No complaints. Review of system All organ systems evaluated and negative except as in subjective All significant diagnostics and laboratories have been reviewed Reason For Visit: NEW ONSET ATRIAL FLUTTER, HYPERKALEMIA Physical Exam Vital Signs: Temp Pulse Resp BP Pulse Ox 97.5 F 56 L 16 96/63 L 99 01/08/18 12:00 01/08/18 16:00 01/08/18 16:00 01/08/18 16:00 01/08/18 16:00 Intake & Output 01/07/18 01/08/18 01/09/18 06:59 06:59 06:59 Intake Total 62 960 Output Total 0 4100 Balance 62 -3140 Weight 103.3 kg General appearance: PRESENT: cooperative, morbidly obese Head exam: PRESENT: atraumatic, normocephalic Eye exam: PRESENT: conjunctiva pink, EOMI, PERRLA Ear exam: PRESENT: normal external ear exam Neck exam: PRESENT: full ROM. ABSENT: JVD, tenderness, thyromegaly Respiratory exam: PRESENT: clear to auscultation dave Cardiovascular exam: PRESENT: RRR. ABSENT: diastolic murmur, systolic murmur Vascular exam: PRESENT: normal capillary refill GI/Abdominal exam: PRESENT: normal bowel sounds, soft. ABSENT: tenderness Extremities exam: PRESENT: full ROM. ABSENT: pedal edema Musculoskeletal exam: PRESENT: ambulatory Neurological exam: PRESENT: alert, awake, oriented to person, oriented to place , oriented to time, oriented to situation, CN II-XII grossly intact Psychiatric exam: PRESENT: appropriate affect, normal mood Skin exam: PRESENT: intact, normal color Results Laboratory Results: 01/08/18 03:58 01/08/18 03:58 01/08/18 01/08/18 01/08/18 03:58 03:58 03:58 WBC 6.9 RBC 3.78 L Hgb 11.8 L Hct 35.1 L MCV 93 MCH 31.3 MCHC 33.6 RDW 16.0 H Plt Count 187 Seg Neutrophils % 59.5 Lymphocytes % 24.9 Monocytes % 9.5 Eosinophils % 4.9 Basophils % 1.2 Absolute Neutrophils 4.1 Absolute Lymphocytes 1.7 Absolute Monocytes 0.7 Absolute Eosinophils 0.3 Absolute Basophils 0.1 Sodium 138.2 Potassium 5.4 H Chloride 95 L Carbon Dioxide 23 Anion Gap 20 H BUN 82 H Creatinine 16.70 H Est GFR ( Amer) 4 L Est GFR (Non-Af Amer) 3 L Glucose 126 H Calcium 9.0 TSH 1.88 01/08/18 01/08/18 13:47 13:47 Creatine Kinase 120 CK-MB (CK-2) 1.98 Troponin I 0.082 Impressions: Chest X-Ray 01/07/18 16:35 IMPRESSION: Mild cardiomegaly. No acute infiltrates or pleural effusion. Venous Doppler Study 01/07/18 17:27 IMPRESSION: DVT in the right internal jugular vein. SVT in the cephalic vein. Assessment & Plan - Diagnosis (1) New onset atrial flutter Is this a current diagnosis for this admission?: Yes Plan: Patient was anticipated to be transferred to [facility] because persisted in atrial flutter but I was just informed the patient converted. Transfer was aborted by Dr. Hagan (2) End-stage renal disease on hemodialysis Is this a current diagnosis for this admission?: Yes Plan: As per renal (3) Hyperkalemia Is this a current diagnosis for this admission?: Yes Plan: As per renal (4) Hypertension Qualifiers: Hypertension type: essential hypertension Qualified Code(s): I10 - Essential (primary) hypertension Is this a current diagnosis for this admission?: Yes Plan: Now on the low side since Ortega mia (5) Tobacco dependence Is this a current diagnosis for this admission?: Yes Plan: Educated about quitting - Time Time Spent with patient: 15-24 minutes Medications reviewed and adjusted accordingly: Yes Anticipated discharge: Home Within: within 48 hours - Inpatient Certification Based on my medical assessment, after consideration of the patient's comorbidities, presenting symptoms, or acuity I expect that the services needed warrant INPATIENT care.: Yes I certify that my determination is in accordance with my understanding of Medicare's requirements for reasonable and necessary INPATIENT services [42 CFR 412.3e].: Yes Medical Necessity: Need Close Monitoring Due to Risk of Patient Decompensation, Need For Continuous Telemetry Monitoring
--- NOTE | 2018-01-08 19:00 | Progress Note ---
Provider Note Provider Note: Patient was seen multiple times. Patient was noted to be in atrial flutter with rapid ventricular response with heart rate in the 130s. Patient somehow tolerated it fine but was felt that if he is stated in it for long time, he would going to CHF. Patient did not respond to IV Cardizem and then IV metoprolol therefore had to use amiodarone bolus and drip protocol. Later on patient converted to sinus rhythm. Patient was scheduled to go to [facility] in transfer for transesophageal echocardiogram, cardioversion and possible ablation. However he converted to sinus rhythm. It was felt that an EP consult can be arranged as an outpatient. Transfer was therefore canceled. Patient was actually going to hospitalist service. At this point will switch patient to p.o. amiodarone 400 mg p.o. twice daily while in the hospital and discharged him on 200 p.o. twice daily for 1 month. Continue a small dose of beta-emelina. Patient will benefit from a sleep study which can be scheduled as an outpatient through my office.
--- NOTE | 2018-01-08 20:37 | XCELERA REPORT ---
[address] [address] Transthoracic Echocardiogram Report Name: CHRISTIAN OCAMPO Age: 57 yrs Gender: Male : 1960 Patient Status: Inpatient Patient Location: ICU^606^A Study Date: 01/08/2018 01:19 PM Height: 67 in Weight: 227 lb BSA: 2.1 m2 Procedure: A complete two-dimensional transthoracic echocardiogram was performed (2D, M-mode, spectral and color flow Doppler). The study was technically adequate with some images being suboptimal in quality. Reason For Study: A Flutter Ordering Physician: ANA CASTELLANOS Performed By: Mikaela Crain Interpretation Summary Left ventricular systolic function is low normal. There is moderate concentric left ventricular hypertrophy. The left ventricle is grossly normal size. Wall motion cannot be accurately commented on, but no definite regional wall motion abnormalities noted. The right ventricular systolic function is normal. The right ventricle is grossly normal size. Borderline left atrial enlargement. Borderline right atrial enlargement. There is a mild amount of mitral regurgitation There is no mitral valve stenosis. There is a mild to moderate amount of aortic regurgitation There is mild aortic stenosis There is a mild amount of tricuspid regurgitation Right ventricular systolic pressure is at the upper limits of normal The aortic root is not well visualized but is probably normal size. The inferior vena cava appeared normal and decreased > 50% with respiration (RAP 5-10 mmHg) There is no pericardial effusion. MMode/2D Measurements & Calculations RVDd: 3.6 cm LVIDd: 4.0 cm FS: 19.7 % Ao root diam: IVSd: 1.4 cm LVIDs: 3.2 cm EDV(Teich): 3.0 cm LVPWd: 1.4 cm 70.6 ml Ao root area: ESV(Teich): 41.6 ml 7.2 cm2 EF(Teich): 41.0 % LA dimension: 3.7 cm LVOT diam: LVLd ap4: 7.9 cm SV(MOD-sp4): 2.0 cm EDV(MOD-sp4): 31.0 ml LVOT area: 64.0 ml LVLs ap4: 6.9 cm 3.0 cm2 ESV(MOD-sp4): 33.0 ml EF(MOD-sp4): 48.4 % Doppler Measurements & Calculations MV E max calin: MV P1/2t max calin: Ao V2 max: AI max calin: 111.6 cm/sec 114.0 cm/sec 199.3 cm/sec 427.7 cm/sec MV A max calin: MV P1/2t: 26.2 msec Ao max PG: AI max P.0 cm/sec MVA(P1/2t): 8.4 cm2 15.9 mmHg 73.2 mmHg MV E/A: 1.4 MV dec slope: RASHEED(V,D): 1.4 cm2 AI dec slope: 1275 cm/sec2 156.6 cm/sec2 AI P1/2t: 799.8 msec LV V1 max PG: PA V2 max: PI end-d calin: TR max calin: 3.4 mmHg 93.8 cm/sec 187.1 cm/sec 253.1 cm/sec LV V1 max: PA max P.5 mmHg TR max P.8 cm/sec 25.6 mmHg Left Ventricle The left ventricle is grossly normal size. There is moderate concentric left ventricular hypertrophy. Left ventricular systolic function is low normal. LV diastolic function could not be adequately assessed due to atrial fibrilation. Wall motion cannot be accurately commented on, but no definite regional wall motion abnormalities noted. Right Ventricle The right ventricle is grossly normal size. There is normal right ventricular wall thickness. The right ventricular systolic function is normal. Atria Borderline right atrial enlargement. Borderline left atrial enlargement. Interarterial septum not well visualized and not well dopplered. Cannot comment on ASD/PFO presence. Mitral Valve There is mild mitral leaflet calcification. There is no mitral valve stenosis. There is a mild amount of mitral regurgitation. Aortic Valve The aortic valve is moderately calcified. There is mild aortic stenosis. There is a mild to moderate amount of aortic regurgitation. Tricuspid Valve The tricuspid valve is not well visualized, but is grossly normal. There is no tricuspid stenosis. There is a mild amount of tricuspid regurgitation. Right ventricular systolic pressure is at the upper limits of normal. Pulmonic Valve The pulmonic valve is not well visualized. Great Vessels The aortic root is not well visualized but is probably normal size. The inferior vena cava appeared normal and decreased > 50% with respiration (RAP 5-10 mmHg). Effusions There is no pericardial effusion. : ANA CASTELLANOS > Ana Castellanos
[2018-01-08] MEDS: SENNOSIDES/DOCUSATE 8.6-50 MG 1 EACH TABLET PO SCH (21:08)
[2018-01-08] MEDS: CLONIDINE HCL 0.1 MG TABLET PO SCH (21:08)
[2018-01-08] MEDS: SIMVASTATIN 10 MG TABLET PO SCH (21:08)
[2018-01-08] MEDS ORDERED: DRONEDARONE HYDROCHLORIDE 400 MG TABLET PO SCH (22:00)
[2018-01-08] MEDS ORDERED: METOPROLOL SUCCINATE 50 MG TAB.SR.24H PO SCH ×2 (22:00)
--- NOTE | 2018-01-08 23:29 | EKG REPORT ---
SEVERITY:- BORDERLINE ECG - SINUS RHYTHM PROBABLE LEFT ATRIAL ABNORMALITY : Confirmed by: Ana Hagan 08-Jan-2018 23:28:41
--- NOTE | 2018-01-08 23:30 | EKG REPORT ---
SEVERITY:- ABNORMAL ECG - A FLUTTER WITH 2:1 CONDUCTION NONSPECIFIC T ABNORMALITIES, LATERAL LEADS PROLONGED QT INTERVAL : Confirmed by: Ana Hagan 08-Jan-2018 23:29:54
[2018-01-09] MEDS: LANSOPRAZOLE 30 MG TAB.RAP.DR PO SCH (05:32)
[2018-01-09] MEDS ORDERED: METOPROLOL SUCCINATE 50 MG TAB.SR.24H PO SCH (07:40)
[2018-01-09 08:26] LABS: ANION GAP 19 (5-19); BLOOD UREA NITROGEN 67 mg/dL (7-20); CALCIUM 8.9 mg/dL (8.4-10.2); CARBON DIOXIDE 28 mmol/L (22-30); CHLORIDE 92 mmol/L (98-107); GLUCOSE 88 mg/dL (75-110); POTASSIUM 5.5 mmol/L (3.6-5.0); SODIUM 138.9 mmol/L (137-145)
[2018-01-09] MEDS: AMIODARONE HCL 200 MG TABLET PO SCH ×2 (10:23→21:43)
[2018-01-09] MEDS: CALCIUM ACETATE 667 MG CAPSULE PO SCH ×3 (10:23→18:57)
[2018-01-09] MEDS: METOPROLOL SUCCINATE 25 MG TAB.SR.24H PO SCH ×2 (10:23→21:43)
[2018-01-09] MEDS: APIXABAN 2.5 MG TABLET PO SCH ×2 (10:26→18:57)
[2018-01-09] MEDS: FOLIC ACID/VITAMIN B COMP W-C CAPSULE PO SCH (10:26)
--- NOTE | 2018-01-09 11:58 | PDOC PROGRESS REPORT ---
Subjective Progress Note for:: 01/09/18 Subjective:: No complaints. Review of system All organ systems evaluated and negative except as in subjective All significant diagnostics and laboratories have been reviewed Reason For Visit: NEW ONSET ATRIAL FLUTTER, HYPERKALEMIA Physical Exam Vital Signs: Temp Pulse Resp BP Pulse Ox 98.1 F 59 L 13 95/63 L 97 01/09/18 05:56 01/08/18 19:52 01/09/18 06:00 01/09/18 05:43 01/09/18 06:00 Intake & Output 01/08/18 01/09/18 01/10/18 06:59 06:59 06:59 Intake Total 62 1854 Output Total 0 4100 Balance 62 -2246 Weight 103.3 kg 102.3 kg General appearance: PRESENT: cooperative, obese Head exam: PRESENT: atraumatic, normocephalic Eye exam: PRESENT: conjunctiva pink, EOMI, PERRLA Ear exam: PRESENT: normal external ear exam Mouth exam: PRESENT: moist Neck exam: PRESENT: full ROM. ABSENT: JVD, lymphadenopathy, tenderness Respiratory exam: PRESENT: clear to auscultation dave Cardiovascular exam: PRESENT: RRR. ABSENT: diastolic murmur, systolic murmur Vascular exam: PRESENT: normal capillary refill GI/Abdominal exam: PRESENT: normal bowel sounds, soft. ABSENT: tenderness Extremities exam: PRESENT: full ROM, pedal edema Musculoskeletal exam: PRESENT: ambulatory, deformity Neurological exam: PRESENT: alert, awake, oriented to person, oriented to place , oriented to time, oriented to situation, CN II-XII grossly intact Psychiatric exam: PRESENT: appropriate affect, normal mood Skin exam: PRESENT: normal color Results Laboratory Results: 01/08/18 03:58 01/08/18 03:58 01/08/18 01/08/18 13:47 13:47 Creatine Kinase 120 CK-MB (CK-2) 1.98 Troponin I 0.082 Impressions: Chest X-Ray 01/07/18 16:35 IMPRESSION: Mild cardiomegaly. No acute infiltrates or pleural effusion. Venous Doppler Study 01/07/18 17:27 IMPRESSION: DVT in the right internal jugular vein. SVT in the cephalic vein. Assessment & Plan - Diagnosis (1) New onset atrial flutter Is this a current diagnosis for this admission?: Yes Plan: Patient was anticipated to be transferred to [facility] because persisted in atrial flutter. Patient converted and transfer was consult by Dr. Hagan. Noted cardiology's recommendation about amiodarone. Will order TSH (2) End-stage renal disease on hemodialysis Is this a current diagnosis for this admission?: Yes Plan: As per renal (3) Hyperkalemia Is this a current diagnosis for this admission?: Yes Plan: As per renal (4) Hypertension Qualifiers: Hypertension type: essential hypertension Qualified Code(s): I10 - Essential (primary) hypertension Is this a current diagnosis for this admission?: Yes Plan: Still on the low side since on amiodarone drip. We will transition to oral and will monitor blood pressure. (5) Tobacco dependence Is this a current diagnosis for this admission?: Yes Plan: Educated about quitting - Time Time Spent with patient: 15-24 minutes Medications reviewed and adjusted accordingly: Yes Anticipated discharge: Home Within: within 24 hours - Inpatient Certification Based on my medical assessment, after consideration of the patient's comorbidities, presenting symptoms, or acuity I expect that the services needed warrant INPATIENT care.: Yes I certify that my determination is in accordance with my understanding of Medicare's requirements for reasonable and necessary INPATIENT services [42 CFR 412.3e].: Yes Medical Necessity: Need Close Monitoring Due to Risk of Patient Decompensation, Need For Continuous Telemetry Monitoring
[2018-01-09] MEDS: SIMVASTATIN 10 MG TABLET PO SCH (21:43)
[2018-01-09] MEDS: SENNOSIDES/DOCUSATE 8.6-50 MG 1 EACH TABLET PO SCH (21:43)
[2018-01-09] MEDS: CLONIDINE HCL 0.1 MG TABLET PO SCH (21:43)
[2018-01-09] MEDS ORDERED: AMIODARONE HCL 200 MG TABLET PO SCH (22:00)
[2018-01-10] MEDS: LANSOPRAZOLE 30 MG TAB.RAP.DR PO SCH (05:41)
[2018-01-10 05:58] LABS: ABSOLUTE EOSINOPHILS # (AUTO) 0.4 10^3/uL (0.0-0.6); ABSOLUTE LYMPHOCYTES (AUTO) 1.4 10^3/uL (0.5-4.7); ABSOLUTE MONOCYTES (AUTO) 0.8 10^3/uL (0.1-1.4); BASOPHILS % (AUTO) 0.7 % (0-2); EOSINOPHILS % (AUTO) 5.9 % (0-6); HEMATOCRIT 36.1 % (37.9-51.0); HEMOGLOBIN 11.9 g/dL (13.5-17.0); LYMPHOCYTES % (AUTO) 21.5 % (13-45); MEAN CORPUSCULAR HEMOGLOBIN 30.9 pg (27.0-33.4); MEAN CORPUSCULAR VOLUME 94 fl (80-97); MONOCYTES % (AUTO) 11.9 % (3-13); PLATELET COUNT 194 10^3/uL (150-450); RED BLOOD COUNT 3.86 10^6/uL (4.35-5.55); RED CELL DISTRIBUTION WIDTH 15.9 % (11.5-14.0); TOTAL CELLS COUNTED % (AUTO) 100 %; WHITE BLOOD COUNT 6.6 10^3/uL (4.0-10.5)
[2018-01-10] MEDS: FOLIC ACID/VITAMIN B COMP W-C CAPSULE PO SCH (10:21)
[2018-01-10] MEDS: CALCIUM ACETATE 667 MG CAPSULE PO SCH ×3 (10:22→17:17)
[2018-01-10] MEDS: METOPROLOL SUCCINATE 25 MG TAB.SR.24H PO SCH (10:24)
[2018-01-10] MEDS: APIXABAN 2.5 MG TABLET PO SCH ×2 (10:24→17:17)
[2018-01-10] MEDS: AMIODARONE HCL 200 MG TABLET PO SCH ×2 (10:24→22:02)
--- NOTE | 2018-01-10 14:26 | PDOC CONSULTATION ---
Consultation Consult Date: 01/08/18 Attending physician:: LORENA PEARSON Consult reason:: Atrial flutter with rapid ventricular response History of Present Illness Admission Date/PCP: 01/07/18 19:53 Patient complains of: Fatigue and tiredness History of Present Illness: CHRISTIAN OCAMPO is a 57 year old black male patient transferred from his primary audiologist office of Dr. Benson for tachycardia. Patient supposed to have his dialysis today and during routine checkup for vital sign patient found to have tachycardia in the 140s. EKG revealed a flutter. Otherwise patient is clinically asymptomatic, he does not complain of chest pain, fever, chills, cough, nausea, vomiting, abdominal pain or any change in his bowel habits. His venous Doppler revealed right jugular chronic venous thrombosis which is not new , it has been there since September 2017. He had been started on anticoagulant but hasd been stopped. During my encounter his heart rate was around 70 while he has been on Cardizem drip. Patient also noted to have hyperkalemia of 5.8 for which she was given Kayexalate by the ER attending. Patient was seen in the unit. At that time patient heart rate was noted to be persistently in the 130s. Initially did come down to 70s but there was typical atrial flutter. Patient was on Cardizem drip and has received multiple doses of IV Lopressor without any results. It was then decided that patient will need to be treated with amiodarone bolus and IV protocol mainly for rate control. Patient felt reasonably well except for feeling tired. He denied any chest pain or shortness of breath. He does feel his heart beating fast but is not that bothersome to the patient. Patient getting dialysis when he was seen in and examined. Past Medical History Cardiac Medical History: Reports: Hyperlipidema, Hypertension Denies: Coronary Artery Disease, Myocardial Infarction Pulmonary Medical History: Reports: Asthma Denies: Bronchitis, Chronic Obstructive Pulmonary Disease (COPD), Pneumonia Neurological Medical History: Denies: Seizures Renal/ Medical History: Reports: End Stage Renal Disease Musculoskeltal Medical History: Reports: Arthritis - "DAMAGED NERVE TO RIGHT LEG " Hematology: Denies: Anemia Past Surgical History Past Surgical History: Reports: Vascular Surgery - Right upper arm AV fistula, right and left PermCaths Social History Information Source: Patient Smoking Status: Current Every Day Smoker Cigarettes Packs Per Day: 0.5 Number of Years Smokin Frequency of Alcohol Use: Occasional Hx Recreational Drug Use: No Drugs: None Hx Prescription Drug Abuse: No - Advance Directive Resuscitation Status: Full Code Surrogate healthcare decision maker:: Patient's girlfriend is the surrogate decision-maker Family History Family History: Reviewed & Not Pertinent, Hypertension Parental Family History Reviewed: Yes Children Family History Reviewed: Yes Sibling(s) Family History Reviewed.: Yes Medication/Allergy Home Medications: B Complex W-C No.20/Folic Acid [Renal Caps Softgel] 1 cap PO DAILY 01/07/18 Calcium Acetate [Phoslo 667 Mg Capsule] 667 mg PO TID 01/07/18 Clonidine HCl [Catapres 0.1 mg Tablet] 0.1 mg PO QHS 01/07/18 Lisinopril [Prinivil 10 mg Tablet] 10 mg PO DAILY 01/07/18 Simvastatin [Zocor 20 mg Tablet] 20 mg PO QHS 01/07/18 Sucroferric Oxyhydroxide [Velphoro] 1,500 mg PO MEALS 01/07/18 Allergies/Adverse Reactions: DRY GAMBRO DIALYZERS Allergy (Unknown, Uncoded 01/07/18 16:45) "BP drop, vomiting" PAPER TAPE Allergy (Uncoded 01/07/18 16:45) Rash Review of Systems Review of Systems: Please see history of present illness and past medical history as wall. Constitutional: No fever or chills reported. Head : No recent chronic headaches, recent head injury. Eyes: No recent eye pain, diplopia, redness, discharge, acute visual changes. Ears: No recent chronic ear pain, acute hearing loss, ear discharge. Oral cavity: No recent ulcerations, bleeding, oral cavity discomfort. Neck: No recent acute neck pain reported. Hematologic: No recent easy bruising or bleeding. Lymphatic: No recent lymph node enlargement reported. Cardiovascular system review: See history of present illness. Respiratory system review: No hemoptysis or blood clots in the lungs reported. Mild Shortness of breath on exertion Gastrointestinal system review: Negative for any recent acute hematemesis, melena. Genitourinary system review: No recent acute or chronic hematuria, flank pain, UTI etc. reported. History of end-stage renal disease on dialysis. Patient has a AV fistula in the right arm. Skin system review: Negative for any recent abnormal bruising, no rash, no pruritus reported. Neurologic: No prior history of strokes, mini strokes, seizure disorder. Psychologic: No history of major psychosis or major depression reported. Musculoskeletal: Minor aches and pains reported. No acute joint swelling reported. Endocrine: No recent polyuria, polydipsia, recent heat or cold intolerance. Physical Exam Vital Signs: Temp Pulse Resp BP Pulse Ox 98.2 F 56 L 18 123/87 H 100 01/08/18 18:00 01/08/18 18:00 01/08/18 18:28 01/08/18 18:28 01/08/18 18:28 Intake & Output 01/07/18 01/08/18 01/09/18 06:59 06:59 06:59 Intake Total 62 1723 Output Total 0 4100 Balance 62 -2377 Weight 103.3 kg Exam: GENERAL: well-nourished and in no acute distress. Alert and oriented x3 HEAD: Atraumatic, normocephalic. EYES: Pupils equal round and reactive to light, extraocular movements intact, sclera anicteric, conjunctiva are normal. ENT: TMs normal, nares patent, oropharynx clear without exudates. Moist mucous membranes. No oral ulcerations or bleeding gums noted NECK: supple without lymphadenopathy. Trachea is central. No cervical or axillary lymphadenopathy noted. Carotids are 2+, JVD WNL LUNGS: Respiration seems nonlabored, no significant accessory muscle action noted. Few bibasilar crackles are noted.. No wheezes rales or rhonchi noted. No significant dullness noted on percussion. CHEST: Palpation of the chest wall shows no significant chest wall tenderness. 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 ABDOMEN: Soft, no significant tenderness appreciated, normoactive bowel sounds. No guarding, no rebound. No rigidity noted . No masses appreciated. EXTREMITIES: Pedal pulses are 1-2+, no calf tenderness noted. No clubbing or cyanosis. negative pedal edema noted. Right arm is noted to have a AV fistula. NEUROLOGICAL: Focused neurological exam showed no significant neurologic deficit. Normal speech, no focal weakness appreciated. PSYCH: Normal mood, normal affect. Judgment and insight within normal limits. SKIN: No significant ecchymosis, skin is noted to be warm. MUSCULOSKELETAL EXAM: No significant acute joint swelling noted. Results Laboratory Results: 01/08/18 03:58 01/08/18 03:58 01/08/18 01/08/18 01/08/18 03:58 03:58 03:58 WBC 6.9 RBC 3.78 L Hgb 11.8 L Hct 35.1 L MCV 93 MCH 31.3 MCHC 33.6 RDW 16.0 H Plt Count 187 Seg Neutrophils % 59.5 Lymphocytes % 24.9 Monocytes % 9.5 Eosinophils % 4.9 Basophils % 1.2 Absolute Neutrophils 4.1 Absolute Lymphocytes 1.7 Absolute Monocytes 0.7 Absolute Eosinophils 0.3 Absolute Basophils 0.1 Sodium 138.2 Potassium 5.4 H Chloride 95 L Carbon Dioxide 23 Anion Gap 20 H BUN 82 H Creatinine 16.70 H Est GFR ( Amer) 4 L Est GFR (Non-Af Amer) 3 L Glucose 126 H Calcium 9.0 TSH 1.88 01/08/18 01/08/18 13:47 13:47 Creatine Kinase 120 CK-MB (CK-2) 1.98 Troponin I 0.082 EKG Comments: Atrial flutter with rapid ventricular response. Predominantly 2-1 conduction. Impressions: Chest X-Ray 01/07/18 16:35 IMPRESSION: Mild cardiomegaly. No acute infiltrates or pleural effusion. Venous Doppler Study 01/07/18 17:27 IMPRESSION: DVT in the right internal jugular vein. SVT in the cephalic vein. Assessment & Plan - Diagnosis (1) New onset atrial flutter Is this a current diagnosis for this admission?: Yes (2) End-stage renal disease on hemodialysis Is this a current diagnosis for this admission?: Yes (3) Hyperkalemia Is this a current diagnosis for this admission?: Yes (4) Hypertension Qualifiers: Hypertension type: essential hypertension Qualified Code(s): I10 - Essential (primary) hypertension Is this a current diagnosis for this admission?: Yes (5) Tobacco dependence Is this a current diagnosis for this admission?: Yes (6) Sleep-disordered breathing Is this a current diagnosis for this admission?: Yes - Notes Notes: Atrial flutter with rapid ventricular response: Patient has not responded to Cardizem drip and IV Lopressor multiple times. Patient was subsequently started on amiodarone bolus and drip protocol. In the meantime I felt that patient will benefit from ablation therapy. In this regard I did initiate a call to hospitalist [facility] for transfer to help patient with ablation. However subsequently patient was noted to convert to sinus rhythm and this transfer was canceled. End-stage renal disease on hemodialysis: Continue with chronic hemodialysis. Hyperkalemia: Continue removing potassium on dialysis. Hypertension: Currently under adequate control. Continue current medications. Tobacco dependence: Patient has been advised to quit smoking. Sleep disordered breathing: This is strongly suspected. Patient does give history of loud habitual snoring. Patient wishes to follow with me for evaluation and treatment of suspected sleep apnea. - Time Time Spent: 50 to 70 Minutes - CODE STATUS was discussed, patient remains full code. Surrogate decision-maker unchanged. Multiple medical problems were addressed. More than 50% of the time spent coordinating care, discussing management plans with involved caregivers. Management plans discussed with involved personnels. Medical decision making was of moderate to high complexity , patient's has multiple comorbidities. Medications reviewed and adjusted accordingly: Yes
--- NOTE | 2018-01-10 14:32 | PDOC PROGRESS REPORT ---
Subjective Progress Note for:: 01/09/18 Subjective:: Patient seems to be doing better with significant improvement. Pt is denying any chest arm or neck discomfort. Patient denying any PND, orthopnea. Patient denied any sustained palpitations, dizziness, syncope, near syncope. Patient denying any fever chills. Patient denying any other significant discomfort. Patient is maintaining sinus rhythm. Having been converted from atrial flutter to sinus rhythm. Review of systems: Rest review of systems negative. Medications: Medications have been reviewed. Reason For Visit: NEW ONSET ATRIAL FLUTTER, HYPERKALEMIA Physical Exam Vital Signs: Temp Pulse Resp BP Pulse Ox 98.5 F 67 14 124/67 100 01/09/18 19:44 01/09/18 19:44 01/09/18 19:44 01/09/18 19:44 01/09/18 19:44 Intake & Output 01/08/18 01/09/18 01/10/18 06:59 06:59 06:59 Intake Total 62 1854 203 Output Total 0 4100 Balance 62 -2246 203 Weight 103.3 kg 102.3 kg Exam: GENERAL: well-nourished and in no acute distress. Alert and oriented x3 HEAD: Atraumatic, normocephalic. EYES: Pupils equal round and reactive to light, extraocular movements intact, sclera anicteric, conjunctiva are normal. ENT: TMs normal, nares patent, oropharynx clear without exudates. Moist mucous membranes. No oral ulcerations or bleeding gums noted NECK: supple without lymphadenopathy. Trachea is central. No cervical or axillary lymphadenopathy noted. Carotids are 2+, JVD WNL LUNGS: Respiration seems nonlabored, no significant accessory muscle action noted. Breath sounds clear to auscultation bilaterally and equal noted. No wheezes rales or rhonchi noted. No significant dullness noted on percussion. CHEST: Palpation of the chest wall shows no significant chest wall tenderness. 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 ABDOMEN: Soft, no significant tenderness appreciated, normoactive bowel sounds. No guarding, no rebound. No rigidity noted . No masses appreciated. EXTREMITIES: Pedal pulses are 1-2+, no calf tenderness noted. No clubbing or cyanosis. negative pedal edema noted. AV fistula noted right upper arm. NEUROLOGICAL: Focused neurological exam showed no significant neurologic deficit. Normal speech, no focal weakness appreciated. PSYCH: Normal mood, normal affect. Judgment and insight within normal limits. SKIN: No significant ecchymosis, skin is noted to be warm. MUSCULOSKELETAL EXAM: No significant acute joint swelling noted. Results Laboratory Results: 01/08/18 03:58 01/09/18 07:50 01/09/18 07:50 Sodium 138.9 Potassium 5.5 H Chloride 92 L Carbon Dioxide 28 Anion Gap 19 BUN 67 H Creatinine 13.67 H Est GFR ( Amer) 5 L Est GFR (Non-Af Amer) 4 L Glucose 88 Calcium 8.9 01/08/18 01/08/18 13:47 13:47 Creatine Kinase 120 CK-MB (CK-2) 1.98 Troponin I 0.082 EKG Comments: Shows sinus rhythm without any sustained tachycardia or bradycardia. Impressions: Chest X-Ray 01/07/18 16:35 IMPRESSION: Mild cardiomegaly. No acute infiltrates or pleural effusion. Venous Doppler Study 01/07/18 17:27 IMPRESSION: DVT in the right internal jugular vein. SVT in the cephalic vein. Assessment & Plan - Diagnosis (1) New onset atrial flutter Is this a current diagnosis for this admission?: Yes (2) End-stage renal disease on hemodialysis Is this a current diagnosis for this admission?: Yes (3) Hyperkalemia Is this a current diagnosis for this admission?: Yes (4) Hypertension Qualifiers: Hypertension type: essential hypertension Qualified Code(s): I10 - Essential (primary) hypertension Is this a current diagnosis for this admission?: Yes (5) Sleep-disordered breathing Is this a current diagnosis for this admission?: Yes (6) Tobacco dependence Is this a current diagnosis for this admission?: Yes - Notes Notes: Patient is maintaining sinus rhythm since conversion yesterday. 2D echo results were reviewed with the patient. Currently feeling much improved. Patient now agreeable to pursue a sleep study as an outpatient. Atrial flutter with rapid ventricular response: Patient was noted to convert to sinus rhythm. Currently maintaining sinus rhythm. Continue Eliquis therapy. Patient to report any recurrence of atrial flutter fibrillation. End-stage renal disease on hemodialysis: Continue with chronic hemodialysis. Hyperkalemia: Continue removing potassium on dialysis. Hypertension: Currently under adequate control. Continue current medications. Tobacco dependence: Patient has been advised to quit smoking. Sleep disordered breathing: This is strongly suspected. Patient does give history of loud habitual snoring. Patient wishes to follow with me for evaluation and treatment of suspected sleep apnea. - Time Time with patient: Greater than 35 minutes - CODE STATUS was discussed, patient remains full code. Surrogate decision-maker unchanged. Multiple medical problems were addressed. More than 50% of the time spent coordinating care, discussing management plans with involved caregivers. Management plans discussed with involved personnels. Medical decision making was of moderate to high complexity, patient's has multiple comorbidities. Medications reviewed and adjusted accordingly: Yes
--- NOTE | 2018-01-10 14:38 | PDOC PROGRESS REPORT ---
Subjective Progress Note for:: 01/10/18 Subjective:: Patient seems to be doing better with significant improvement. Pt is denying any chest arm or neck discomfort. Patient denying any PND, orthopnea. Patient denied any sustained palpitations, dizziness, syncope, near syncope. Patient denying any fever chills. Patient denying any other significant discomfort. Patient is maintaining sinus rhythm. Review of systems: Rest review of systems negative. Medications: Medications have been reviewed. Reason For Visit: NEW ONSET ATRIAL FLUTTER, HYPERKALEMIA Physical Exam Vital Signs: Temp Pulse Resp BP Pulse Ox 97.7 F 50 L 21 H 94/63 L 93 01/10/18 07:27 01/10/18 07:27 01/10/18 07:27 01/10/18 07:27 01/10/18 07:27 Intake & Output 01/09/18 01/10/18 01/11/18 06:59 06:59 06:59 Intake Total 1854 1282 Output Total 4100 Balance -2246 1282 Weight 102.3 kg 103 kg Exam: GENERAL: well-nourished and in no acute distress. Alert and oriented x3 HEAD: Atraumatic, normocephalic. EYES: Pupils equal round and reactive to light, extraocular movements intact, sclera anicteric, conjunctiva are normal. ENT: TMs normal, nares patent, oropharynx clear without exudates. Moist mucous membranes. No oral ulcerations or bleeding gums noted NECK: supple without lymphadenopathy. Trachea is central. No cervical or axillary lymphadenopathy noted. Carotids are 2+, JVD WNL LUNGS: Respiration seems nonlabored, no significant accessory muscle action noted. Breath sounds clear to auscultation bilaterally and equal noted. No wheezes rales or rhonchi noted. No significant dullness noted on percussion. CHEST: Palpation of the chest wall shows no significant chest wall tenderness. 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 ABDOMEN: Soft, no significant tenderness appreciated, normoactive bowel sounds. No guarding, no rebound. No rigidity noted . No masses appreciated. EXTREMITIES: Pedal pulses are 1-2+, no calf tenderness noted. No clubbing or cyanosis. negative pedal edema noted. AV fistula noted right arm NEUROLOGICAL: Focused neurological exam showed no significant neurologic deficit. Normal speech, no focal weakness appreciated. PSYCH: Normal mood, normal affect. Judgment and insight within normal limits. SKIN: No significant ecchymosis, skin is noted to be warm. MUSCULOSKELETAL EXAM: No significant acute joint swelling noted. Results Laboratory Results: 01/10/18 04:08 01/09/18 07:50 01/10/18 01/10/18 01/10/18 04:08 04:08 04:08 WBC 6.6 RBC 3.86 L Hgb 11.9 L Hct 36.1 L MCV 94 MCH 30.9 MCHC 33.0 RDW 15.9 H Plt Count 194 Seg Neutrophils % 60.0 Lymphocytes % 21.5 Monocytes % 11.9 Eosinophils % 5.9 Basophils % 0.7 Absolute Neutrophils 4.0 Absolute Lymphocytes 1.4 Absolute Monocytes 0.8 Absolute Eosinophils 0.4 Absolute Basophils 0.0 Magnesium 2.2 TSH 2.01 01/08/18 01/08/18 13:47 13:47 Creatine Kinase 120 CK-MB (CK-2) 1.98 Troponin I 0.082 EKG Comments: Telemetry strip shows sinus rhythm without any recurrence of atrial flutter. Impressions: Chest X-Ray 01/07/18 16:35 IMPRESSION: Mild cardiomegaly. No acute infiltrates or pleural effusion. Venous Doppler Study 01/07/18 17:27 IMPRESSION: DVT in the right internal jugular vein. SVT in the cephalic vein. Assessment & Plan - Diagnosis (1) New onset atrial flutter Is this a current diagnosis for this admission?: Yes (2) End-stage renal disease on hemodialysis Is this a current diagnosis for this admission?: Yes (3) Hyperkalemia Is this a current diagnosis for this admission?: Yes (4) Hypertension Qualifiers: Hypertension type: essential hypertension Qualified Code(s): I10 - Essential (primary) hypertension Is this a current diagnosis for this admission?: Yes (5) Sleep-disordered breathing Is this a current diagnosis for this admission?: Yes (6) Tobacco dependence Is this a current diagnosis for this admission?: Yes (7) Obesity Qualifiers: Obesity type: unspecified obesity type Obesity classification: unspecified obesity classification Is this a current diagnosis for this admission?: Yes - Notes Notes: Atrial flutter with rapid ventricular response: Patient maintaining sinus rhythm. Continue chronic anticoagulation with Eliquis. End-stage renal disease on hemodialysis: Continue with chronic hemodialysis. Hyperkalemia: Continue removing potassium on dialysis. Hypertension: Currently under adequate control. Continue current medications. Tobacco dependence: Patient has been advised to quit smoking. Sleep disordered breathing: This is strongly suspected. Patient does give history of loud habitual snoring. Patient wishes to follow with me for evaluation and treatment of suspected sleep apnea. Obesity: Discussed association of obesity with atrial tachyarrhythmia. Patient encouraged in weight loss. - Time Time with patient: 15-25 minutes - CODE STATUS was discussed, patient remains full code. Surrogate decision-maker unchanged. Multiple medical problems were addressed. More than 50% of the time spent coordinating care, discussing management plans with involved caregivers. Management plans discussed with involved personnels. Medical decision making was of moderate to high complexity , patient's has multiple comorbidities. Medications reviewed and adjusted accordingly: Yes
--- NOTE | 2018-01-10 15:24 | PDOC PROGRESS REPORT ---
Subjective Progress Note for:: 01/10/18 Subjective:: No complaints. Review of system All organ systems evaluated and negative except as in subjective All significant diagnostics and laboratories have been reviewed Reason For Visit: NEW ONSET ATRIAL FLUTTER, HYPERKALEMIA Physical Exam Vital Signs: Temp Pulse Resp BP Pulse Ox 98.2 F 62 17 101/55 L 99 01/10/18 04:00 01/10/18 04:00 01/10/18 04:00 01/10/18 04:00 01/10/18 04:00 Intake & Output 01/09/18 01/10/18 01/11/18 06:59 06:59 06:59 Intake Total 1854 1282 Output Total 4100 Balance -2246 1282 Weight 102.3 kg 103 kg General appearance: PRESENT: cooperative, obese Head exam: PRESENT: atraumatic, normocephalic Eye exam: PRESENT: conjunctiva pink, EOMI, PERRLA Mouth exam: PRESENT: moist Neck exam: PRESENT: full ROM. ABSENT: JVD, lymphadenopathy, tenderness Respiratory exam: PRESENT: clear to auscultation dave Cardiovascular exam: PRESENT: RRR. ABSENT: diastolic murmur, systolic murmur Vascular exam: PRESENT: normal capillary refill GI/Abdominal exam: PRESENT: normal bowel sounds, soft. ABSENT: tenderness Extremities exam: PRESENT: full ROM. ABSENT: pedal edema Musculoskeletal exam: PRESENT: ambulatory Neurological exam: PRESENT: alert, awake, oriented to person, oriented to place , oriented to time, oriented to situation, CN II-XII grossly intact Psychiatric exam: PRESENT: appropriate affect, normal mood Skin exam: PRESENT: intact, normal color Results Laboratory Results: 01/10/18 04:08 01/09/18 07:50 01/09/18 01/10/18 01/10/18 07:50 04:08 04:08 WBC 6.6 RBC 3.86 L Hgb 11.9 L Hct 36.1 L MCV 94 MCH 30.9 MCHC 33.0 RDW 15.9 H Plt Count 194 Seg Neutrophils % 60.0 Lymphocytes % 21.5 Monocytes % 11.9 Eosinophils % 5.9 Basophils % 0.7 Absolute Neutrophils 4.0 Absolute Lymphocytes 1.4 Absolute Monocytes 0.8 Absolute Eosinophils 0.4 Absolute Basophils 0.0 Sodium 138.9 Potassium 5.5 H Chloride 92 L Carbon Dioxide 28 Anion Gap 19 BUN 67 H Creatinine 13.67 H Est GFR ( Amer) 5 L Est GFR (Non-Af Amer) 4 L Glucose 88 Calcium 8.9 Magnesium 2.2 TSH 01/10/18 04:08 WBC RBC Hgb Hct MCV MCH MCHC RDW Plt Count Seg Neutrophils % Lymphocytes % Monocytes % Eosinophils % Basophils % Absolute Neutrophils Absolute Lymphocytes Absolute Monocytes Absolute Eosinophils Absolute Basophils Sodium Potassium Chloride Carbon Dioxide Anion Gap BUN Creatinine Est GFR ( Amer) Est GFR (Non-Af Amer) Glucose Calcium Magnesium TSH 2.01 01/08/18 01/08/18 13:47 13:47 Creatine Kinase 120 CK-MB (CK-2) 1.98 Troponin I 0.082 Impressions: Chest X-Ray 01/07/18 16:35 IMPRESSION: Mild cardiomegaly. No acute infiltrates or pleural effusion. Venous Doppler Study 01/07/18 17:27 IMPRESSION: DVT in the right internal jugular vein. SVT in the cephalic vein. Assessment & Plan - Diagnosis (1) New onset atrial flutter Is this a current diagnosis for this admission?: Yes Plan: Continue amiodarone as recommended by cardiology. Continue telemetry while on amiodarone. Patient was made aware that a thyroid test will be needed on a regular basis and started on this medication. (2) End-stage renal disease on hemodialysis Is this a current diagnosis for this admission?: Yes Plan: As per renal (3) Hyperkalemia Is this a current diagnosis for this admission?: Yes Plan: As per renal (4) Hypertension Qualifiers: Hypertension type: essential hypertension Qualified Code(s): I10 - Essential (primary) hypertension Is this a current diagnosis for this admission?: Yes Plan: Still on the low side since on amiodarone . Decrease Toprol-XL dose and discontinue clonidine.We will continue monitoring (5) Tobacco dependence Is this a current diagnosis for this admission?: Yes Plan: Educated about quitting - Time Time Spent with patient: 15-24 minutes Medications reviewed and adjusted accordingly: Yes Anticipated discharge: Home Within: within 48 hours - Inpatient Certification Based on my medical assessment, after consideration of the patient's comorbidities, presenting symptoms, or acuity I expect that the services needed warrant INPATIENT care.: Yes I certify that my determination is in accordance with my understanding of Medicare's requirements for reasonable and necessary INPATIENT services [42 CFR 412.3e].: Yes Medical Necessity: Significant Comorbidiites Make Outpatient Treatment Too Risky , Need Close Monitoring Due to Risk of Patient Decompensation, Need For Continuous Telemetry Monitoring
[2018-01-10] MEDS: SIMVASTATIN 10 MG TABLET PO SCH (22:02)
[2018-01-10] MEDS: SENNOSIDES/DOCUSATE 8.6-50 MG 1 EACH TABLET PO SCH (22:02)
[2018-01-11] MEDS: LANSOPRAZOLE 30 MG TAB.RAP.DR PO SCH (05:59)
--- NOTE | 2018-01-11 10:29 | EKG REPORT ---
SEVERITY:- BORDERLINE ECG - SINUS RHYTHM PROBABLE LEFT ATRIAL ABNORMALITY BORDERLINE ST ELEVATION, ANTERIOR LEADS : Confirmed by: Ana Hagan 11-Jan-2018 10:27:35
--- NOTE | 2018-01-11 11:36 | PDOC PROGRESS REPORT ---
Subjective Progress Note for:: 01/11/18 Subjective:: No complaints. Review of system All organ systems evaluated and negative except as in subjective All significant diagnostics and laboratories have been reviewed Reason For Visit: NEW ONSET ATRIAL FLUTTER, HYPERKALEMIA Physical Exam Vital Signs: Temp Pulse Resp BP Pulse Ox 98.0 F 58 L 16 123/70 79 L 01/11/18 07:24 01/11/18 07:24 01/11/18 07:24 01/11/18 07:24 01/11/18 07:24 Intake & Output 01/10/18 01/11/18 01/12/18 06:59 06:59 06:59 Intake Total 1282 1642 Balance 1282 1642 Weight 103 kg General appearance: PRESENT: no acute distress, cooperative, obese Head exam: PRESENT: atraumatic, normocephalic Eye exam: PRESENT: conjunctiva pink, EOMI, PERRLA Ear exam: PRESENT: normal external ear exam Mouth exam: PRESENT: moist Neck exam: PRESENT: full ROM. ABSENT: JVD, lymphadenopathy, tenderness Respiratory exam: PRESENT: clear to auscultation dave Cardiovascular exam: PRESENT: RRR. ABSENT: diastolic murmur, systolic murmur Vascular exam: PRESENT: normal capillary refill GI/Abdominal exam: PRESENT: normal bowel sounds, soft. ABSENT: tenderness Extremities exam: PRESENT: full ROM. ABSENT: pedal edema Musculoskeletal exam: PRESENT: ambulatory Neurological exam: PRESENT: alert, awake, oriented to person, oriented to place , oriented to time, oriented to situation, CN II-XII grossly intact Psychiatric exam: PRESENT: appropriate affect, normal mood Skin exam: PRESENT: intact, normal color Results Laboratory Results: 01/10/18 04:08 01/09/18 07:50 01/08/18 01/08/18 13:47 13:47 Creatine Kinase 120 CK-MB (CK-2) 1.98 Troponin I 0.082 Impressions: Chest X-Ray 01/07/18 16:35 IMPRESSION: Mild cardiomegaly. No acute infiltrates or pleural effusion. Venous Doppler Study 01/07/18 17:27 IMPRESSION: DVT in the right internal jugular vein. SVT in the cephalic vein. Assessment & Plan - Diagnosis (1) New onset atrial flutter Is this a current diagnosis for this admission?: Yes Plan: Continue amiodarone as recommended by cardiology. Continue telemetry while on amiodarone. Patient was made aware that a thyroid test will be needed on a regular basis and started on this medication. Expect to discharge in AM (2) End-stage renal disease on hemodialysis Is this a current diagnosis for this admission?: Yes Plan: As per renal (3) Hyperkalemia Is this a current diagnosis for this admission?: Yes Plan: As per renal (4) Hypertension Qualifiers: Hypertension type: essential hypertension Qualified Code(s): I10 - Essential (primary) hypertension Is this a current diagnosis for this admission?: Yes Plan: Improved with changes made to antihypertensives (5) Tobacco dependence Is this a current diagnosis for this admission?: Yes Plan: Educated about quitting - Time Time Spent with patient: Less than 15 minutes Medications reviewed and adjusted accordingly: Yes Anticipated discharge: Home Within: within 24 hours - Inpatient Certification Based on my medical assessment, after consideration of the patient's comorbidities, presenting symptoms, or acuity I expect that the services needed warrant INPATIENT care.: Yes I certify that my determination is in accordance with my understanding of Medicare's requirements for reasonable and necessary INPATIENT services [42 CFR 412.3e].: Yes Medical Necessity: Need Close Monitoring Due to Risk of Patient Decompensation, Need For Continuous Telemetry Monitoring
[2018-01-11] MEDS: FOLIC ACID/VITAMIN B COMP W-C CAPSULE PO SCH (11:44)
[2018-01-11] MEDS: METOPROLOL SUCCINATE 25 MG TAB.SR.24H PO SCH (11:44)
[2018-01-11] MEDS: CALCIUM ACETATE 667 MG CAPSULE PO SCH ×3 (11:44→17:10)
[2018-01-11] MEDS: AMIODARONE HCL 200 MG TABLET PO SCH ×2 (11:45→21:10)
[2018-01-11] MEDS: APIXABAN 2.5 MG TABLET PO SCH ×2 (11:45→17:10)
--- NOTE | 2018-01-11 12:59 | PDOC PROGRESS REPORT ---
Subjective Progress Note for:: 01/11/18 Subjective:: Patient seems to be doing better. No recurrence of palpitations. Pt is denying any chest arm or neck discomfort. Patient denying any PND, orthopnea. Patient denied any sustained palpitations, dizziness, syncope, near syncope. Patient denying any fever chills. Patient denying any other significant discomfort. Patient is maintaining sinus rhythm. Review of systems: Rest review of systems negative. Medications: Medications have been reviewed. Reason For Visit: NEW ONSET ATRIAL FLUTTER, HYPERKALEMIA Physical Exam Vital Signs: Temp Pulse Resp BP Pulse Ox 98.0 F 58 L 16 123/70 79 L 01/11/18 07:24 01/11/18 07:24 01/11/18 07:24 01/11/18 07:24 01/11/18 07:24 Intake & Output 01/10/18 01/11/18 01/12/18 06:59 06:59 06:59 Intake Total 1282 1642 Balance 1282 1642 Weight 103 kg Exam: GENERAL: well-nourished and in no acute distress. Alert and oriented x3 HEAD: Atraumatic, normocephalic. EYES: Pupils equal round and reactive to light, extraocular movements intact, sclera anicteric, conjunctiva are normal. ENT: TMs normal, nares patent, oropharynx clear without exudates. Moist mucous membranes. No oral ulcerations or bleeding gums noted NECK: supple without lymphadenopathy. Trachea is central. No cervical or axillary lymphadenopathy noted. Carotids are 2+, JVD WNL LUNGS: Respiration seems nonlabored, no significant accessory muscle action noted. Breath sounds clear to auscultation bilaterally and equal noted. No wheezes rales or rhonchi noted. No significant dullness noted on percussion. CHEST: Palpation of the chest wall shows no significant chest wall tenderness. 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 ABDOMEN: Soft, no significant tenderness appreciated, normoactive bowel sounds. No guarding, no rebound. No rigidity noted . No masses appreciated. EXTREMITIES: Pedal pulses are 1-2+, no calf tenderness noted. No clubbing or cyanosis. negative pedal edema noted. AV fistula noted right upper arm. NEUROLOGICAL: Focused neurological exam showed no significant neurologic deficit. Normal speech, no focal weakness appreciated. PSYCH: Normal mood, normal affect. Judgment and insight within normal limits. SKIN: No significant ecchymosis, skin is noted to be warm. MUSCULOSKELETAL EXAM: No significant acute joint swelling noted. Results Laboratory Results: 01/10/18 04:08 01/09/18 07:50 01/08/18 01/08/18 13:47 13:47 Creatine Kinase 120 CK-MB (CK-2) 1.98 Troponin I 0.082 EKG Comments: Telemetry shows sinus rhythm without any sustained tachycardia or bradycardia. Impressions: Chest X-Ray 01/07/18 16:35 IMPRESSION: Mild cardiomegaly. No acute infiltrates or pleural effusion. Venous Doppler Study 01/07/18 17:27 IMPRESSION: DVT in the right internal jugular vein. SVT in the cephalic vein. Assessment & Plan - Diagnosis (1) New onset atrial flutter Is this a current diagnosis for this admission?: Yes (2) End-stage renal disease on hemodialysis Is this a current diagnosis for this admission?: Yes (3) Hyperkalemia Is this a current diagnosis for this admission?: Yes (4) Hypertension Qualifiers: Hypertension type: essential hypertension Qualified Code(s): I10 - Essential (primary) hypertension Is this a current diagnosis for this admission?: Yes (5) Sleep-disordered breathing Is this a current diagnosis for this admission?: Yes (6) Tobacco dependence Is this a current diagnosis for this admission?: Yes (7) Obesity Qualifiers: Obesity type: unspecified obesity type Obesity classification: unspecified obesity classification Is this a current diagnosis for this admission?: Yes - Notes Notes: Patient remained stable. Is suspected to be discharged after dialysis tomorrow. Need to make sure that patient does not precipitate atrial flutter fibrillation with dialysis tomorrow. Atrial flutter with rapid ventricular response: Patient maintaining sinus rhythm. Continue chronic anticoagulation with Eliquis. End-stage renal disease on hemodialysis: Continue with chronic hemodialysis. Hyperkalemia: Continue removing potassium on dialysis. Hypertension: Currently under adequate control. Continue current medications. Tobacco dependence: Patient has been advised to quit smoking. Sleep disordered breathing: This is strongly suspected. Patient does give history of loud habitual snoring. Patient wishes to follow with me for evaluation and treatment of suspected sleep apnea. Obesity: Discussed association of obesity with atrial tachyarrhythmia. Patient encouraged in weight loss. - Time Time with patient: Greater than 35 minutes - CODE STATUS was discussed, patient remains full code. Surrogate decision-maker unchanged. Multiple medical problems were addressed. More than 50% of the time spent coordinating care, discussing management plans with involved caregivers. Management plans discussed with involved personnels. Medical decision making was of moderate to high complexity, patient's has multiple comorbidities. Medications reviewed and adjusted accordingly: Yes
[2018-01-11] MEDS: SIMVASTATIN 10 MG TABLET PO SCH (21:10)
[2018-01-11] MEDS: SENNOSIDES/DOCUSATE 8.6-50 MG 1 EACH TABLET PO SCH (21:11)
[2018-01-12] MEDS: LANSOPRAZOLE 30 MG TAB.RAP.DR PO SCH (05:22)
[2018-01-12 05:59] LABS: BLOOD UREA NITROGEN 93 mg/dL (7-20); CALCIUM 9.1 mg/dL (8.4-10.2); GLUCOSE 89 mg/dL (75-110)
[2018-01-12 06:05] LABS: CARBON DIOXIDE 25 mmol/L (22-30); CHLORIDE 91 mmol/L (98-107)
[2018-01-12 06:21] LABS: ANION GAP 21 (5-19)
[2018-01-12 06:24] LABS: POTASSIUM 6.1 mmol/L (3.6-5.0)
[2018-01-12] MEDS ORDERED: SODIUM POLYSTYRENE SULFONATE 15 GM/60 ML PO ONE (07:00)
[2018-01-12] MEDS ORDERED: INSULIN REG, HUMAN 100 UNIT/ML 3 ML VIAL (PYX) IV ONE (07:00)
[2018-01-12] MEDS ORDERED: DEXTROSE 50%-WATER 25 GM/50 ML DISP.SYRIN IV ONE (07:00)
[2018-01-12] MEDS: AMIODARONE HCL 200 MG TABLET PO SCH (08:46)
[2018-01-12] MEDS: APIXABAN 2.5 MG TABLET PO SCH (08:47)
[2018-01-12] MEDS: FOLIC ACID/VITAMIN B COMP W-C CAPSULE PO SCH (08:47)
[2018-01-12] MEDS: METOPROLOL SUCCINATE 25 MG TAB.SR.24H PO SCH (08:47)
[2018-01-12] MEDS: CALCIUM ACETATE 667 MG CAPSULE PO SCH ×2 (08:47→13:09)
[2018-01-12 12:16] VITALS: BP 138/69
--- NOTE | 2018-01-12 15:32 | PDOC DISCHARGE SUMMARY ---
General - Admit/Disc Date/PCP Admission Date/Primary Care Provider: 01/07/18 19:53 Discharge Date: 01/12/18 - Discharge Diagnosis (1) New onset atrial flutter Is this a current diagnosis for this admission?: Yes (2) End-stage renal disease on hemodialysis Is this a current diagnosis for this admission?: Yes (3) Hyperkalemia Is this a current diagnosis for this admission?: Yes (4) Hypertension Is this a current diagnosis for this admission?: Yes (5) Tobacco dependence Is this a current diagnosis for this admission?: Yes - Additional Information Resuscitation Status: Full Code Discharge Diet: Other (Comments) - Pre-renal Discharge Activity: Activity As Tolerated Prescriptions: Amiodarone HCl [Cordarone 200 mg Tablet] 200 mg PO DAILY #30 tablet Apixaban [Eliquis 2.5 mg Tablet] 2.5 mg PO BID #60 tablet Metoprolol Succinate [Toprol Xl 25 mg Tab.sr] 25 mg PO DAILY #30 tab.sr.24h Home Medications: B Complex W-C No.20/Folic Acid [Renal Caps Softgel] 1 cap PO DAILY 01/07/18 Calcium Acetate [Phoslo 667 mg Capsule] 667 mg PO TID 01/07/18 Clonidine HCl [Catapres 0.1 mg Tablet] 0.1 mg PO QHS 01/07/18 Lisinopril [Prinivil 10 mg Tablet] 10 mg PO DAILY 01/07/18 Simvastatin [Zocor 20 mg Tablet] 20 mg PO QHS 01/07/18 Sucroferric Oxyhydroxide [Velphoro] 1,500 mg PO MEALS 01/07/18 Amiodarone HCl [Cordarone 200 mg Tablet] 200 mg PO DAILY #30 tablet 01/12/18 Apixaban [Eliquis 2.5 mg Tablet] 2.5 mg PO BID #60 tablet 01/12/18 Metoprolol Succinate [Toprol Xl 25 mg Tab.sr] 25 mg PO DAILY #30 tab.sr.24h 03/25 History of Present Illness History of Present Illness: CHRISTIAN OCAMPO is a 57 year old male patient 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 Benson for tachycardia. Patient was supposed to have his dialysis on the day of admission and during routine checkup for vital signs patient found to have tachycardia in the 140s. EKG revealed atrial flutter. Otherwise patient was clinically asymptomatic. He did not complain of chest pain, fever, chills, cough, nausea, vomiting, abdominal pain or any change in his bowel habits. His venous Doppler revealed right jugular chronic venous thrombosis which was not new, it had been there since September 2017. Patient was started on Cardizem with improvement in her heart rate to 70. Patient also was noted to have hyperkalemia of 5.8 for which she was given Kayexalate while in ED. Hospital Course Hospital Course: Patient was admitted under the hospitalist service to intensive care unit. It is not worth it to mention that patient was stable but Cardizem drip required to be titrated which was not feasible at the stepdown unit. Patient underwent dialysis on January 08. He was started on low-dose Toprol-XL 25 mg p.o. daily. Patient was evaluated by Dr. Hagan and he recommended for patient to be transferred since january need ablation. He contacted [facility] and patient was accepted on transfer. Arrangements were made but later on during the afternoon patient converted to normal sinus rhythm. He opted then to place patient on amiodarone 400 mg 1 p.o. 3 times daily. Patient remained hospitalized primarily for cardiac monitoring for the following 3 days after was started on amiodarone. TSH was also obtained which was normal. Recommend primary care provider to follow-up TSH periodically as it may become abnormal while on amiodarone. Likely atrial flutter was precipitated by hyperkalemia however patient will benefit from being evaluated for sleep apnea. Patient was transitioned on discharge to amiodarone 200 mg p.o. daily. He underwent dialysis on the day of discharge. Since stable and had achieved maximum benefit of hospitalization stay prompted to discharge Physical Exam Vital Signs: Temp Pulse Resp BP Pulse Ox 97.7 F 54 L 16 141/70 H 100 01/12/18 08:00 01/12/18 08:00 01/12/18 08:00 01/12/18 08:00 01/12/18 08:00 Intake & Output 01/11/18 01/12/18 01/13/18 06:59 06:59 06:59 Intake Total 1642 1784 Balance 1642 1784 Weight 104.3 kg General appearance: PRESENT: no acute distress, cooperative, obese Head exam: PRESENT: atraumatic, normocephalic Eye exam: PRESENT: conjunctiva pink, EOMI, PERRLA Ear exam: PRESENT: normal external ear exam Mouth exam: PRESENT: moist Neck exam: PRESENT: full ROM. ABSENT: JVD, lymphadenopathy, tenderness Respiratory exam: PRESENT: clear to auscultation dave Cardiovascular exam: PRESENT: RRR. ABSENT: diastolic murmur, systolic murmur Vascular exam: PRESENT: normal capillary refill GI/Abdominal exam: PRESENT: normal bowel sounds, soft. ABSENT: tenderness Extremities exam: PRESENT: full ROM. ABSENT: pedal edema Musculoskeletal exam: PRESENT: ambulatory Neurological exam: PRESENT: alert, awake, oriented to person, oriented to place , oriented to time, CN II-XII grossly intact Psychiatric exam: PRESENT: appropriate affect, normal mood Skin exam: PRESENT: intact, normal color Results Laboratory Results: 01/10/18 04:08 01/12/18 04:29 01/12/18 04:29 Sodium 137.0 Potassium 6.1 H* Chloride 91 L Carbon Dioxide 25 Anion Gap 21 H BUN 93 H Creatinine 17.54 H Est GFR ( Amer) 3 L Est GFR (Non-Af Amer) 3 L Glucose 89 Calcium 9.1 Magnesium 2.5 H 01/08/18 01/08/18 13:47 13:47 Creatine Kinase 120 CK-MB (CK-2) 1.98 Troponin I 0.082 Impressions: Chest X-Ray 01/07/18 16:35 IMPRESSION: Mild cardiomegaly. No acute infiltrates or pleural effusion. Venous Doppler Study 01/07/18 17:27 IMPRESSION: DVT in the right internal jugular vein. SVT in the cephalic vein. Qualifiers - * PATIENT BEING DISCHARGED WITH ANY OF THE FOLLOWING DIAGNOSIS: No Plan Discharge Plan: Discharge home. Patient to follow-up with primary care provider as scheduled. Continue with dialysis treatment as prescribed Time Spent: Greater than 30 Minutes
--- NOTE | 2018-01-12 17:58 | PDOC PROGRESS REPORT ---
Subjective Progress Note for:: 01/12/18 Reason For Visit: Patient seen on dialysis today. He is undergoing dialysis without any issues. He denies any history of chest pain shortness of breath. Orders were discussed with the treating dialysis nurse. Labs and medications were reviewed. Physical Exam Vital Signs: Temp Pulse Resp BP Pulse Ox 97.9 F 67 16 138/69 H 100 01/12/18 12:00 01/12/18 12:00 01/12/18 12:00 01/12/18 12:00 01/12/18 12:00 Intake & Output 01/11/18 01/12/18 01/13/18 06:59 06:59 06:59 Intake Total 1642 1784 Balance 1642 1784 Weight 104.3 kg General appearance: PRESENT: no acute distress Respiratory exam: PRESENT: clear to auscultation dave. ABSENT: crackles, rhonchi Cardiovascular exam: PRESENT: +S1, +S2, systolic murmur GI/Abdominal exam: PRESENT: normal bowel sounds, soft. ABSENT: organomegaly, tenderness Neurological exam: PRESENT: awake, oriented to person, oriented to place Results Laboratory Results: 01/10/18 04:08 01/12/18 04:29 Sodium 137.0 Potassium 6.1 H* Chloride 91 L Carbon Dioxide 25 Anion Gap 21 H BUN 93 H Creatinine 17.54 H Est GFR ( Amer) 3 L Est GFR (Non-Af Amer) 3 L Glucose 89 Calcium 9.1 Magnesium 2.5 H 01/08/18 01/08/18 13:47 13:47 Creatine Kinase 120 CK-MB (CK-2) 1.98 Troponin I 0.082 Impressions: Chest X-Ray 01/07/18 16:35 IMPRESSION: Mild cardiomegaly. No acute infiltrates or pleural effusion. Venous Doppler Study 01/07/18 17:27 IMPRESSION: DVT in the right internal jugular vein. SVT in the cephalic vein. Assessment & Plan - Diagnosis (1) New onset atrial flutter Is this a current diagnosis for this admission?: Yes Plan: Currently controlled. As per cardiology and hospitalist. (2) End-stage renal disease on hemodialysis Is this a current diagnosis for this admission?: Yes Plan: Patient undergoing dialysis without any issues. Is being supervised to ensure safe and smooth procedure. Vital signs are stable. The plan to remove between 3 and 4 L of fluid. Orders were reviewed with the treating dialysis nurse. He is ready for discharge from a renal point of view. (3) Hyperkalemia Is this a current diagnosis for this admission?: Yes Plan: Check a pre-and post dialysis potassium for his circulation. Advised on sticking with a proper low potassium diet. We discussed implications and consequences including sudden cardiac arrest with hyperkalemia. (4) Hypertension Qualifiers: Hypertension type: essential hypertension Qualified Code(s): I10 - Essential (primary) hypertension Is this a current diagnosis for this admission?: Yes Plan: Controlled. See the response to dialysis.
--- NOTE | 2018-01-12 19:50 | PDOC PROGRESS REPORT ---
Subjective Progress Note for:: 01/12/18 Subjective:: Patient to have dialysis later on today. Patient was seen on morning rounds. If he did fine on dialysis, he could be be discharged with follow-up appointment Patient seems to be doing better. No recurrence of palpitations. Pt is denying any chest arm or neck discomfort. Patient denying any PND, orthopnea. Patient denied any sustained palpitations, dizziness, syncope, near syncope. Patient denying any fever chills. Patient denying any other significant discomfort. Patient is maintaining sinus rhythm. Review of systems: Rest review of systems negative. Medications: Medications have been reviewed. Reason For Visit: NEW ONSET ATRIAL FLUTTER, HYPERKALEMIA Physical Exam Vital Signs: Temp Pulse Resp BP Pulse Ox 97.9 F 67 16 138/69 H 100 01/12/18 15:43 01/12/18 15:43 01/12/18 15:43 01/12/18 15:43 01/12/18 15:43 Intake & Output 01/11/18 01/12/18 01/13/18 06:59 06:59 06:59 Intake Total 1642 1784 0 Output Total 4000 Balance 1642 1784 -4000 Weight 104.3 kg Exam: GENERAL: well-nourished and in no acute distress. Alert and oriented x3 HEAD: Atraumatic, normocephalic. EYES: Pupils equal round and reactive to light, extraocular movements intact, sclera anicteric, conjunctiva are normal. ENT: TMs normal, nares patent, oropharynx clear without exudates. Moist mucous membranes. No oral ulcerations or bleeding gums noted NECK: supple without lymphadenopathy. Trachea is central. No cervical or axillary lymphadenopathy noted. Carotids are 2+, JVD WNL LUNGS: Respiration seems nonlabored, no significant accessory muscle action noted. Breath sounds clear to auscultation bilaterally and equal noted. No wheezes rales or rhonchi noted. No significant dullness noted on percussion. CHEST: Palpation of the chest wall shows no significant chest wall tenderness. 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 ABDOMEN: Soft, no significant tenderness appreciated, normoactive bowel sounds. No guarding, no rebound. No rigidity noted . No masses appreciated. EXTREMITIES: Pedal pulses are 1-2+, no calf tenderness noted. No clubbing or cyanosis. negative pedal edema noted. AV fistula noted right upper arm. NEUROLOGICAL: Focused neurological exam showed no significant neurologic deficit. Normal speech, no focal weakness appreciated. PSYCH: Normal mood, normal affect. Judgment and insight within normal limits. SKIN: No significant ecchymosis, skin is noted to be warm. MUSCULOSKELETAL EXAM: No significant acute joint swelling noted. Results Laboratory Results: 01/10/18 04:08 01/12/18 14:15 01/12/18 01/12/18 04:29 14:15 Sodium 137.0 Potassium 6.1 H* 4.8 D Chloride 91 L Carbon Dioxide 25 Anion Gap 21 H BUN 93 H Creatinine 17.54 H Est GFR ( Amer) 3 L Est GFR (Non-Af Amer) 3 L Glucose 89 Calcium 9.1 Magnesium 2.5 H 01/08/18 01/08/18 13:47 13:47 Creatine Kinase 120 CK-MB (CK-2) 1.98 Troponin I 0.082 EKG Comments: Telemetry shows sinus rhythm without any sustained tachycardia or bradycardia. Impressions: Chest X-Ray 01/07/18 16:35 IMPRESSION: Mild cardiomegaly. No acute infiltrates or pleural effusion. Venous Doppler Study 01/07/18 17:27 IMPRESSION: DVT in the right internal jugular vein. SVT in the cephalic vein. Assessment & Plan - Diagnosis (1) New onset atrial flutter Is this a current diagnosis for this admission?: Yes (2) End-stage renal disease on hemodialysis Is this a current diagnosis for this admission?: Yes (3) Hyperkalemia Is this a current diagnosis for this admission?: Yes (4) Hypertension Qualifiers: Hypertension type: essential hypertension Qualified Code(s): I10 - Essential (primary) hypertension Is this a current diagnosis for this admission?: Yes (5) Sleep-disordered breathing Is this a current diagnosis for this admission?: Yes (6) Tobacco dependence Is this a current diagnosis for this admission?: Yes (7) Obesity Qualifiers: Obesity type: unspecified obesity type Obesity classification: unspecified obesity classification Is this a current diagnosis for this admission?: Yes - Notes Notes: Atrial flutter with rapid ventricular response: Patient maintaining sinus rhythm. Continue chronic anticoagulation with Eliquis. Patient would benefit from follow-up and study as an outpatient. This was explained to the patient. It was also told that he would benefit from weight loss. End-stage renal disease on hemodialysis: Continue with chronic hemodialysis. Patient to have dialysis today. Hyperkalemia: Continue removing potassium on dialysis. Hypertension: Currently under adequate control. Continue current medications. Tobacco dependence: Patient has been advised to quit smoking. Sleep disordered breathing: This is strongly suspected. Patient does give history of loud habitual snoring. Patient wishes to follow with me for evaluation and treatment of suspected sleep apnea. Obesity: Discussed association of obesity with atrial tachyarrhythmia. Patient encouraged in weight loss. - Time Time with patient: Greater than 35 minutes - CODE STATUS was discussed, patient remains full code. Surrogate decision-maker unchanged. Multiple medical problems were addressed. More than 50% of the time spent coordinating care, discussing management plans with involved caregivers. Management plans discussed with involved personnels. Medical decision making was of moderate to high complexity, patient's has multiple comorbidities. Medications reviewed and adjusted accordingly: Yes
== END 2018-01-12 18:13 | disposition home or self-care (01) | DRG 308 ==
LOC: ER 16:20 → EH 19:53 → ICU 01-08 01:35 → 4N 01-09 12:14
PROVIDERS: ADMIT Internal Medicine; ATTEND Internal Medicine
PROC: 5A1D70Z Performance of Urinary Filtration, Intermittent, Less than 6 Hours Per Day (ICD-10-PCS; principal; 2018-01-08)
PROC: 5A1D70Z Performance of Urinary Filtration, Intermittent, Less than 6 Hours Per Day (ICD-10-PCS; 2018-01-09)
PROC: 5A1D70Z Performance of Urinary Filtration, Intermittent, Less than 6 Hours Per Day (ICD-10-PCS; 2018-01-12)
DX: I48.92 Unspecified atrial flutter (principal); N18.6 End stage renal disease; I82.C21 Chronic embolism and thrombosis of right internal jugular vein; N25.81 Secondary hyperparathyroidism of renal origin; I13.2 Hypertensive heart and chronic kidney disease with heart failure and with stage 5 chronic kidney disease, or end stage renal disease; Z99.2 Dependence on renal dialysis; E87.5 Hyperkalemia; F17.210 Nicotine dependence, cigarettes, uncomplicated; I47.1 Supraventricular tachycardia; E78.5 Hyperlipidemia, unspecified; J45.909 Unspecified asthma, uncomplicated; M19.90 Unspecified osteoarthritis, unspecified site; G47.30 Sleep apnea, unspecified; D63.1 Anemia in chronic kidney disease; E66.9 Obesity, unspecified; Z68.36 Body mass index [BMI] 36.0-36.9, adult; Z79.899 Other long term (current) drug therapy; Z91.048 Other nonmedicinal substance allergy status; Z82.49 Family history of ischemic heart disease and other diseases of the circulatory system
CPT/HCPCS: 36415; 71045; 80048; 80053; 82550; 82553; 83735; 84132; 84443; 84484; 85025; 85610; 85730; 93005; 93010; 93306; 93971; 96365; 96366; 96376; 99291; J0282; J1644; J1815; J3490; J7060

== ENCOUNTER 2018-02-02 14:22 | Inpatient (IN) | payer MEDICARE ==
--- NOTE | 2018-02-02 14:45 | ER Document Report ---
ED General - General Mode of Arrival: Medic Information source: Patient TRAVEL OUTSIDE OF THE [place] IN LAST 30 DAYS: No <LEONILA OTT - Last Filed: 02/02/18 18:14> <DREW VARGAS - Last Filed: 02/02/18 18:16> - General Stated Complaint: CHEST PAIN Time Seen by Provider: 02/02/18 14:28 Notes: Patient is a 57 year old male with DVT, HTN, ESRD on MWF dialysis and high cholesterol was sent to the emergency department from dialysis for a rapid heart beat. Patient states he was going to receive dialysis today when he was told he had a heart rate in the 140s and could not proceeded with dialysis. Patient states that he feels completely fine further stating it does not feel like his heart is beating fast. Patient mentions having a cough for the last 3 weeks with sinus pressure and drainage. Patient states he has not taken any pills in attempt to alleviate his symptoms but has used ear drops. Patient denies any trouble breathing, pain, or heart palpitations. Patient was recently diagnosed with a DVT in his right upper arm 3 weeks ago. Patient states he was prescribed Eloquis but has not been able to fill his prescription due to his insurance not covering it. Patient states his arm seems to be equally swollen compared to onset. (LEONILA OTT) - Related Data Allergies/Adverse Reactions: DRY GAMBRO DIALYZERS Allergy (Unknown, Uncoded 01/07/18 16:45) "BP drop, vomiting" PAPER TAPE Allergy (Uncoded 01/07/18 16:45) Rash Past Medical History - General Information source: Patient - Social History Smoking Status: Current Every Day Smoker Cigarette use (# per day): Yes Chew tobacco use (# tins/day): No Smoking Education Provided: No Frequency of alcohol use: Occasional Drug Abuse: None Family History: Reviewed & Not Pertinent, Hypertension - Past Medical History Cardiac Medical History: Reports: Hx DVT, Hx Hypercholesterolemia, Hx Hypertension Pulmonary Medical History: Reports: Hx Asthma Renal/ Medical History: Reports: Hx End Stage Renal Disease, Hx Hemodialysis Musculoskeltal Medical History: Reports Hx Arthritis - "DAMAGED NERVE TO RIGHT LEG" Past Surgical History: Reports: Hx Neurologic Surgery - Benign brain tumor removed 2010, Hx Vascular Surgery - Right upper arm AV fistula, right and left PermCaths - Immunizations Hx Diphtheria, Pertussis, Tetanus Vaccination: Yes Hx Pneumococcal Vaccination: 02/07/16 <TRULEONILA WILLIS - Last Filed: 02/02/18 18:14> Review of Systems - Review of Systems Constitutional: No symptoms reported EENT: See HPI, Nose congestion, Nose discharge Cardiovascular: See HPI, Heart racing - tachycardic Respiratory: See HPI, Cough Gastrointestinal: No symptoms reported Genitourinary: No symptoms reported Male Genitourinary: No symptoms reported Musculoskeletal: No symptoms reported Skin: No symptoms reported Hematologic/Lymphatic: No symptoms reported Neurological/Psychological: No symptoms reported -: Yes All other systems reviewed and negative <TRULEONILA WILLIS - Last Filed: 02/02/18 18:14> Physical Exam <TRUGALEKALANI - Last Filed: 02/02/18 18:14> <DREW VARGAS - Last Filed: 02/02/18 18:16> - Vital signs Vitals: Resp 19 02/02/18 14:35 - Notes Notes: GENERAL: Alert, interacts well. No acute distress. HEAD: Normocephalic, atraumatic. EYES: Pupils equal, round, and reactive to light. Extraocular movements intact. ENT: Oral mucosa moist, tongue midline. NECK: Full range of motion. Supple. Trachea midline. LUNGS: Clear to auscultation bilaterally, no wheezes, rales, or rhonchi. No respiratory distress. HEART: Initially regularly tachycardic without ectopy. No murmurs, gallops, or rubs, then monitor converted to atrial flutter with variable conduction. EXTREMITIES: Moves all 4 extremities spontaneously. Gross amount of swelling to the right arm consistent with history of a DVT. Large fistula in right upper arm with a palpable thrill, some areas are firm and tense below the fistula. FROM of phalanges of right hand. 2/4 dorsalis pedis and radial pulses. NEUROLOGICAL: Alert and oriented x3. Normal speech. PSYCH: Normal affect, normal mood. SKIN: Warm, dry, and normal turgor. (TRU,TAMKALANI) Course - Laboratory Result Diagrams: 02/02/18 14:38 02/02/18 14:38 <TRULEONILA - Last Filed: 02/02/18 18:14> - Laboratory Result Diagrams: 02/02/18 14:38 02/02/18 14:38 <DREW VARGAS - Last Filed: 02/02/18 18:16> - Re-evaluation Re-evalutation: 02/02/18 14:50 While speaking with the patient, he converted from a nonspecific tachycardia to atrial flutter with variable conduction 02/02/18 15:12 Spoke with [facility] on [address], stated they will get him in for dialysis tomorrow if he is discharged. 02/02/18 18:14 (LEONILA OTT) 02/02/18 17:40 CBC shows mild anemia with hemoglobin 13, INR slightly prolonged at 1.03, CMP shows elevated potassium at 5.4 but there are no associated EKG changes, he is a dialysis patient, this will likely be corrected during dialysis tomorrow, BUN and creatinine are both markedly elevated consistent with end-stage renal disease on hemodialysis, troponin is indeterminate at 0.061 although I suspect this is more related to impaired renal clearance than true cardiac etiology. Thyroid studies are pending. CT angiogram of the chest does not show any pulmonary embolism, this was my #1 concern for the cause of the new onset atrial flutter on his EKG given his right upper extremity DVT that he has not been taking his Eliquis for due to expense. It does show a mass on the right kidney which is solid and the patient is aware that he will need to have an ultrasound and possible MRI for follow-up. While in the room the patient did spontaneously go from atrial flutter with 2-1 conduction at a rate of 140 down to intermittently rate controlled atrial flutter with varying conduction ranging from a rate of mid 90s to mid 100-1 teens. Patient has never had any chest pain or shortness of breath while here. Discussed patient with Dr. Kate and Dr. Crouch from the hospitalist service, they agree with inpatient workup for new onset atrial flutter given his multiple comorbidities. 02/02/18 18:16 Coumadin will be started by hospitalist. (DREW VARGAS) - Vital Signs Vital signs: Temp Pulse Resp BP Pulse Ox 17 147/98 H 100 02/02/18 17:09 02/02/18 17:09 02/02/18 17:09 - Laboratory Laboratory results interpreted by me: 02/02/18 02/02/18 14:38 14:38 RBC 4.07 L Hgb 13.0 L RDW 15.8 H Potassium 5.4 H Chloride 95 L BUN 86 H Creatinine 14.80 H Est GFR ( Amer) 4 L Est GFR (Non-Af Amer) 3 L Direct Bilirubin 0.6 H ALT 16 L Total Protein 8.5 H - EKG Interpretation by Me Additional EKG results interpreted by me: 02/02/18 17:44 Initial EKG shows atrial flutter with 2-1 conduction rate of 138, minimal ST segment elevation in aVL, no ST segment elevation in lead I, no reciprocal changes, borderline prolonged QT interval per my interpretation. Repeat EKG shows atrial flutter with a ventricular rate of 105, atrial rate of 288, nonspecific T-wave inversions in lead I, 2, 3, aVF, the 6, computer interpretation says there is diffuse ST segment elevation however I do not see this and disagree with diagnosis of pericarditis per my interpretation. (DREW VARGAS) Discharge <LEONILA OTT - Last Filed: 02/02/18 18:14> - Discharge Admitting Provider: Hospitalist - [facility] Admitted: Telemetry <DREW VARGAS - Last Filed: 02/02/18 18:16> - Discharge Clinical Impression: New onset atrial flutter, End-stage renal disease on hemodialysis, Acute hyperkalemia Condition: Fair Disposition: ADMITTED INPATIENT Scribe Attestation: 02/02/18 18:16 I personally performed the services described in the documentation, reviewed and edited the documentation which was dictated to the scribe in my presence, and it accurately records my words and actions. (DREW VARGAS) Scribe Documentation - Scribe Written by Jose Martinibe:: Everett Grant, 02/02/2018 14:52 acting as scribe for :: Bharathi <LEONILA OTT - Last Filed: 02/02/18 18:14>
[2018-02-02 15:09] LABS: ABSOLUTE BASOPHILS # (AUTO) 0.1 10^3/uL (0.0-0.2); ABSOLUTE EOSINOPHILS # (AUTO) 0.3 10^3/uL (0.0-0.6); ABSOLUTE LYMPHOCYTES (AUTO) 1.6 10^3/uL (0.5-4.7); ABSOLUTE MONOCYTES (AUTO) 0.6 10^3/uL (0.1-1.4); BASOPHILS % (AUTO) 1.4 % (0-2); EOSINOPHILS % (AUTO) 4.8 % (0-6); HEMATOCRIT 38.2 % (37.9-51.0); LYMPHOCYTES % (AUTO) 23.6 % (13-45); MEAN CORPUSCULAR HEMOGLOBIN 31.9 pg (27.0-33.4); MEAN CORPUSCULAR HGB CONC 34.1 g/dL (32.0-36.0); MEAN CORPUSCULAR VOLUME 94 fl (80-97); MONOCYTES % (AUTO) 9.3 % (3-13); PLATELET COUNT 225 10^3/uL (150-450); RED BLOOD COUNT 4.07 10^6/uL (4.35-5.55); RED CELL DISTRIBUTION WIDTH 15.8 % (11.5-14.0); SEGMENTED NEUTROPHILS % (AUTO) 60.9 % (42-78); TOTAL CELLS COUNTED % (AUTO) 100 %; WHITE BLOOD COUNT 6.6 10^3/uL (4.0-10.5)
--- NOTE | 2018-02-02 15:15 | RADIOLOGY REPORT (SQ) ---
EXAM DESCRIPTION: CHEST SINGLE VIEW COMPLETED DATE/TIME: 02/02/2018 3:06 pm REASON FOR STUDY: tachycardia COMPARISON: 01/07/2018 EXAM PARAMETERS: NUMBER OF VIEWS: One view. TECHNIQUE: Single frontal radiographic view of the chest acquired. RADIATION DOSE: NA LIMITATIONS: None. FINDINGS: LUNGS AND PLEURA: No opacities, masses or pneumothorax. No pleural effusion. MEDIASTINUM AND HILAR STRUCTURES: No masses. Contour normal. HEART AND VASCULAR STRUCTURES: Heart normal in size. Normal vasculature. BONES: No acute findings. HARDWARE: None in the chest. OTHER: No other significant finding. IMPRESSION: NO ACUTE RADIOGRAPHIC FINDING IN THE CHEST. TECHNICAL DOCUMENTATION: JOB ID: [id number] [employer]- All Rights Reserved Reading location - IP/workstation name: [email or web address]
[2018-02-02 15:26] LABS: INTERNATIONAL RATION (INR) 1.03
[2018-02-02 15:39] LABS: CREATINE KINASE MB 1.87 ng/mL (<4.55)
[2018-02-02 15:42] LABS: TROPONIN I 0.061 ng/mL
[2018-02-02 15:44] LABS: ALANINE AMINOTRANSFERASE 16 U/L (21-72); ALBUMIN 4.5 g/dL (3.5-5.0); ALKALINE PHOSPHATASE 55 U/L (38-126); ANION GAP 18 (5-19); ASPARTATE AMINO TRANSFERASE 45 U/L (17-59); BILIRUBIN,DIRECT 0.6 mg/dL (0.0-0.4); BILIRUBIN,TOTAL 0.6 mg/dL (0.2-1.3); BLOOD UREA NITROGEN 86 mg/dL (7-20); CALCIUM 8.8 mg/dL (8.4-10.2); CARBON DIOXIDE 28 mmol/L (22-30); CHLORIDE 95 mmol/L (98-107); CREATINE KINASE 154 U/L (55-170); GLUCOSE 93 mg/dL (75-110); POTASSIUM 5.4 mmol/L (3.6-5.0); SODIUM 141.1 mmol/L (137-145); TOTAL PROTEIN 8.5 g/dL (6.3-8.2)
--- NOTE | 2018-02-02 16:33 | EKG REPORT ---
SEVERITY:- ABNORMAL ECG - ATRIAL FLUTTER, A-RATE 288 NONSPECIFIC T ABNORMALITIES, DIFFUSE LEADS : Confirmed by: Ana Hagan 02-Feb-2018 16:32:24
--- NOTE | 2018-02-02 16:34 | EKG REPORT ---
SEVERITY:- BORDERLINE ECG - A FLUTTER WITH 2:1 CONDUCTION : Confirmed by: Ana Hagan 02-Feb-2018 16:33:17
--- NOTE | 2018-02-02 17:05 | RADIOLOGY REPORT (SQ) ---
EXAM DESCRIPTION: CTA CHEST COMPLETED DATE/TIME: 02/02/2018 4:50 pm REASON FOR STUDY: tachycardia, known RUE DVT COMPARISON: 01/15/2011. TECHNIQUE: CT scan of the chest performed using helical scanning technique with dynamic intravenous contrast injection. Images reviewed with lung, soft tissue and bone windows. Reconstructed coronal and sagittal MPR images reviewed. Additional 3 dimensional post-processing performed to develop Maximal Intensity Projection images (SC P). All images stored on PACS. All CT scanners at this facility use dose modulation, iterative reconstruction, and/or weight based d osing when appropriate to reduce radiation dose to as low as reasonably achievable (ALARA). [facility]: Dose Right [facility]: CareDose [facility]: Dose Right [facility]: Teradose 4D [facility]: [place] CONTRAST TYPE AND DOSE: contrast/concentration: Isovue 300.00 mg/ml; Total Contrast Delivered: 83.0 ml; Total Saline Delivered: 110.1 ml Contrast bolus optimized for the pulmonary arteries. Not diagnostic for the aorta. RENAL FUNCTION: Not obtained. Patient on dialysis. RADIATION DOSE: CT Rad equipment meets quality standard of care and radiation dose reduction techniq ues were employed. CTDIvol: 27.2 - 59.5 mGy. DLP: 1058 mGy-cm. . LIMITATIONS: None. FINDINGS: LUNGS AND PLEURA: No masses, infiltrates, pneumothorax. No pleural effusions, calcificati ons. AORTA AND GREAT VESSELS: No aneurysm. Contrast bolus not optimized for the aorta. HEART: No pericardial effusion. No significant coronary artery calcifications. PULMONARY ARTERIES: No emboli visualized in the main pulmonary arteries or the segmental branches. HILAR AND MEDIASTINAL STRUCTURES: No identified masses or abnormal nodes. HARDWARE: None in the chest. UPPER ABDOMEN: Mass in the upper pole of the right kidney, measuring 3.8 cm. THYROID AND OTHER SOFT TISSUES: No masses. No adenopathy. BONES: No acute or significant finding. 3D MIPS: Confirm above findings. OTHER: No other significant finding. IMPRESSION: 1. NORMAL CTA OF THE CHEST. NO PULMONARY EMBOLI. 2. 3.8 CM MASS IN THE UPPER POLE OF THE RIGHT KIDNEY. THERE IS LIMITED EVALUATION DUE TO TIMING OF T HE CONTRAST BOLUS BUT SUSPECT THIS IS A SOLID MASS. RECOMMEND ULTRASOUND OF THE KIDNEYS TO CONFIRM I F THIS IS A SOLID MASS. ULTIMATELY THE PATIENT MAY NEED OUTPATIENT MRI OF THE KIDNEYS. COMMENT: Quality ID # [id number]: Final reports with documentation of one or more dose reduction techniques (e.g., Automated exposure control, adjustment of the mA and/or kV according to patient size, use of iterative reconstruction technique) TECHNICAL DOCUMENTATION: JOB ID: [id number] [employer]- All Rights Reserved Reading location - IP/workstation name: [email or web address]
[2018-02-02] MEDS ORDERED: HEPARIN SODIUM,PORCINE/D5W 25,000 UNIT/250 ML RTUINJ IV PRN (18:30)
[2018-02-02 19:10] LABS: FREE T3 3.62 pg/mL (2.77-5.27); FREE T4 (FREE THYROXINE) 1.46 ng/dL (0.78-2.19)
--- NOTE | 2018-02-02 19:17 | PDOC H&P ---
History of Present Illness Admission Date/PCP: 02/02/18 17:49 NO LOCALMD Patient complains of: Palpitation History of Present Illness: OLINDA OCAMPO is a 57 year old male history of end-stage renal disease, on hemodialysis Friday, right upper extremity DVT was supposed to be on Eliquis but noncompliant secondary to cost and his insurance not covering it. Patient was at hemodialysis today and was told he had extremely high rates and was sent to the ED where he was found to be in atrial flutter with HR 140s. Patient denies chest pain or lightheadedness, did not feel the palpitations. His a-flutter spontaneously converted but heart rate still in intermittent atrial flutter with rates in the 90s to low 100s. He was referred to the hospitalist service for admission, further evaluation. Of note is that patient had CTA of the chest in the ED to rule out PE given the right upper extremity DVT, but this was negative for PE. Past Medical History Cardiac Medical History: Reports: DVT, Hyperlipidema, Hypertension Denies: Coronary Artery Disease, Myocardial Infarction Pulmonary Medical History: Reports: Asthma Denies: Bronchitis, Chronic Obstructive Pulmonary Disease (COPD), Pneumonia Neurological Medical History: Denies: Seizures Renal/ Medical History: Reports: End Stage Renal Disease Musculoskeltal Medical History: Reports: Arthritis - "DAMAGED NERVE TO RIGHT LEG " Hematology: Denies: Anemia Past Surgical History Past Surgical History: Reports: Vascular Surgery - Right upper arm AV fistula, right and left PermCaths Social History Smoking Status: Current Every Day Smoker Frequency of Alcohol Use: Occasional Hx Recreational Drug Use: No Drugs: None Hx Prescription Drug Abuse: No Family History Family History: Reviewed & Not Pertinent, Hypertension Parental Family History Reviewed: Yes Children Family History Reviewed: Yes Sibling(s) Family History Reviewed.: Yes Medication/Allergy Home Medications: Amiodarone HCl [Pacerone] 200 mg PO DAILY 02/02/18 B Complex W-C No.20/Folic Acid [Renal Caps Softgel] 1 cap PO DAILY 02/02/18 Calcitriol 0.5 mcg PO DAILY 02/02/18 Calcium Acetate 667 mg PO TID 02/02/18 Calcium Carbonate [Tums Chewable 500 mg Tab.chew] 1,000 mg PO QHS 02/02/18 Cinacalcet HCl [Sensipar 30 Mg Tablet] 30 mg PO DAILY 02/02/18 Clonidine HCl 0.1 mg PO QHS 02/02/18 Lisinopril 10 mg PO DAILY 02/02/18 Metoprolol Succinate 25 mg PO DAILY 02/02/18 Simvastatin 10 mg PO QHS 02/02/18 Allergies/Adverse Reactions: DRY GAMBRO DIALYZERS Allergy (Unknown, Uncoded 02/02/18 18:23) "BP drop, vomiting" PAPER TAPE Allergy (Uncoded 02/02/18 18:23) Rash Review of Systems Review of Systems: CONSTITUTIONAL : Fever, chills -- No; unexpalined fatigue -- No EENT: Denies eye, ear, throat, or mouth pain or symptoms. Denies nasal or sinus congestion or discharge. Denies throat, tongue, or mouth swelling or difficulty swallowing. CARDIOVASCULAR: Denies chest pain. He did not feel any tachycardia. RESPIRATORY: Denies cough, no shortness of breath, difficulty breathing. GASTROINTESTINAL: Denies abdominal pain or distention. Denies nausea, vomiting , or diarrhea. No rectal bleeding. GENITOURINARY: Urinary symptoms -- no. MUSCULOSKELETAL: No acute weakness SKIN: Denies rash, lesions or sores. HEMATOLOGIC : Denies easy bruising or bleeding. LYMPHATIC: Denies swollen, enlarged glands. NEUROLOGICAL: New weakness, headaches, slured speach - No PSYCHIATRIC: Changes anxiety or stress, depression, suicidal ideation, or homicidal ideation -- No ALL OTHER SYSTEMS REVIEWED AND NEGATIVE. Physical Exam Vital Signs: Temp Pulse Resp BP Pulse Ox 25 H 130/75 H 96 02/02/18 18:01 02/02/18 18:01 02/02/18 17:54 GENERAL: Well-developed, no acute distress HEENT: Normocephalic/atraumatic NECK supple, no JVD CARDIOVASCULAR: Mild tachycardia, normal S1-S2 LUNGS: CTA bilaterally ABDOMEN: Soft, NT, NL bowel sounds EXTREMITIES: Marked swelling of right upper extremity secondary to previous DVT , no clubbing, cyanosis NEUROLOGICAL: Alert, oriented x 3, nonfocal Results Impressions: Chest/Abdomen CTA 02/02/18 14:38 IMPRESSION: 1. NORMAL CTA OF THE CHEST. NO PULMONARY EMBOLI. 2. 3.8 CM MASS IN THE UPPER POLE OF THE RIGHT KIDNEY. THERE IS LIMITED EVALUATION DUE TO TIMING OF THE CONTRAST BOLUS BUT SUSPECT THIS IS A SOLID MASS. RECOMMEND ULTRASOUND OF THE KIDNEYS TO CONFIRM IF THIS IS A SOLID MASS. ULTIMATELY THE PATIENT MAY NEED OUTPATIENT MRI OF THE KIDNEYS. Chest X-Ray 02/02/18 14:39 IMPRESSION: NO ACUTE RADIOGRAPHIC FINDING IN THE CHEST. Assessment & Plan - Diagnosis (1) New onset atrial flutter Is this a current diagnosis for this admission?: Yes Plan: Patient on metoprolol as outpatient. Will give additional dose now. I have consulted Dr. Zhong of cardiology who recommended starting heparin drip. Patient was on Eliquis for right upper extremity DVT but was not compliant because his insurance did not cover and he could not afford. Will start heparin drip for new onset atrial flutter and this should also cover the DVT. -Patient with mild hyperkalemia. It is only 5.4, which is really not significant in the setting of ESRD. Will recheck and consider treatment if markedly elevated. -TSH pending. Please follow results. Check magnesium. (2) Acute hyperkalemia Is this a current diagnosis for this admission?: Yes Plan: Potassium 5.4. Will recheck. Consider correcting if worsening. (3) End-stage renal disease on hemodialysis Is this a current diagnosis for this admission?: Yes Plan: Nephrology consult for hemodialysis. This is patient of Dr. Benson. (4) Hypertension Is this a current diagnosis for this admission?: Yes Plan: Resume home medications. (5) Deep vein thrombosis (DVT) of right upper extremity Plan: Patient has history of this, diagnosed in July 2017. Has not been compliant with Eliquis because he could not afford due to poor insurance coverage. He will be started on warfarin.
[2018-02-02 19:24] LABS: THYROID STIMULATING HORMONE 2.56 uIU/mL (0.47-4.68)
[2018-02-02] MEDS ORDERED: CALCIUM ACETATE 667 MG CAPSULE PO ONE (20:00)
[2018-02-02] MEDS ORDERED: CALCIUM CARBONATE 500 MG TAB.CHEW PO SCH (22:00)
[2018-02-02] MEDS ORDERED: SIMVASTATIN 10 MG TABLET PO SCH (22:00)
[2018-02-02] MEDS ORDERED: CLONIDINE HCL 0.1 MG TABLET PO SCH (22:00)
[2018-02-02] MEDS ORDERED: WARFARIN SODIUM 3 MG TABLET PO SCH (22:00)
[2018-02-03] MEDS ORDERED: FLUTICASONE NASAL SPRAY 50 MCG/SPRY 120 SPRAY/16 GM NASL PRN (01:16)
[2018-02-03] MEDS ORDERED: FLUTICASONE NASAL SPRAY 50 MCG/SPRY 120 SPRAY/16 GM ONE (01:50)
[2018-02-03 06:47] LABS: HEMATOCRIT 33.7 % (37.9-51.0); HEMOGLOBIN 11.4 g/dL (13.5-17.0); MEAN CORPUSCULAR HEMOGLOBIN 31.6 pg (27.0-33.4); MEAN CORPUSCULAR HGB CONC 33.8 g/dL (32.0-36.0); MEAN CORPUSCULAR VOLUME 94 fl (80-97); PLATELET COUNT 176 10^3/uL (150-450); RED CELL DISTRIBUTION WIDTH 15.7 % (11.5-14.0); WHITE BLOOD COUNT 6.3 10^3/uL (4.0-10.5)
[2018-02-03 06:59] LABS: BLOOD UREA NITROGEN 88 mg/dL (7-20); CALCIUM 8.2 mg/dL (8.4-10.2); GLUCOSE 82 mg/dL (75-110); POTASSIUM 5.5 mmol/L (3.6-5.0)
[2018-02-03 07:06] LABS: ANION GAP 19 (5-19); CARBON DIOXIDE 23 mmol/L (22-30); CHLORIDE 96 mmol/L (98-107); SODIUM 138.2 mmol/L (137-145)
[2018-02-03] MEDS ORDERED: HEPARIN SOD (PORCINE) 1,000 UNIT/ML 10 ML VIAL ONE (08:49)
--- NOTE | 2018-02-03 09:01 | EKG REPORT ---
SEVERITY:- NORMAL ECG - SINUS RHYTHM : Confirmed by: Ana Hagan 03-Feb-2018 09:01:03
[2018-02-03] MEDS ORDERED: FOLIC ACID/VITAMIN B COMP W-C CAPSULE PO SCH (10:00)
[2018-02-03] MEDS ORDERED: AMIODARONE HCL 200 MG TABLET PO SCH ×2 (10:00)
[2018-02-03] MEDS ORDERED: CALCITRIOL 0.25 MCG CAPSULE PO SCH (10:00)
[2018-02-03] MEDS ORDERED: CINACALCET HCL 30 MG TABLET PO SCH (10:00)
[2018-02-03] MEDS ORDERED: LISINOPRIL 10 MG TABLET PO SCH (10:00)
[2018-02-03] MEDS ORDERED: METOPROLOL SUCCINATE 25 MG TAB.SR.24H PO SCH (10:00)
[2018-02-03] MEDS ORDERED: HEPARIN SOD (PORCINE) 1,000 UNIT/ML 10 ML VIAL IV PRN (10:31)
[2018-02-03] MEDS: CALCIUM ACETATE 667 MG CAPSULE PO SCH ×2 (12:51→13:46)
[2018-02-03 13:55] VITALS: BP 134/75
--- NOTE | 2018-02-03 15:34 | PDOC CONSULTATION ---
Consultation Consult Date: 02/03/18 Consult reason:: ESRD History of Present Illness Admission Date/PCP: 02/02/18 17:49 NO LOCALMD History of Present Illness: OLINDA OCAMPO is a 57 year old male history of end-stage renal disease, on hemodialysis Friday, Friday, and Friday, right upper extremity DVT was supposed to be on Eliquis but noncompliant secondary to cost and his insurance not covering it. Patient was at hemodialysis on Friday and extremely high heart rate. Was sent to the ED where he was found to be in atrial flutter with HR 140s. Patient at the time denies chest pain or lightheadedness, did not feel the palpitations. While in the ER his a-flutter spontaneously converted but heart rate was still in intermittent atrial flutter with rates in the 90s to low 100s. A CTA of the chest in the ED was done to rule out PE given the right upper extremity DVT, but this was negative for PE. When examining him today he was sitting up at his bedside doing well. Heart rate was controlled, he denied chest pain or SOB. He also denied chest palpitations. Denies any focal weakness Past Medical History Cardiac Medical History: Reports: DVT, Hyperlipidemia, Hypertension-primary Denies: Coronary Artery Disease, Myocardial Infarction Pulmonary Medical History: Reports: Asthma Denies: Bronchitis, Chronic Obstructive Pulmonary Disease (COPD), Pneumonia Neurological Medical History: Denies: Seizures Renal/ Medical History: Reports: End Stage Renal Disease Musculoskeltal Medical History: Reports: Arthritis - "DAMAGED NERVE TO RIGHT LEG " Past Surgical History Past Surgical History: Reports: Vascular Surgery - Right upper arm AV fistula, right and left PermCaths Social History Smoking Status: Current Every Day Smoker Frequency of Alcohol Use: Occasional Hx Recreational Drug Use: No Drugs: None Hx Prescription Drug Abuse: No Family History Family History: Chronic Kidney Disease Parental Family History Reviewed: No Children Family History Reviewed: Yes Sibling(s) Family History Reviewed.: Unknown Medication/Allergy Home Medications: Amiodarone HCl [Pacerone] 200 mg PO DAILY 02/02/18 B Complex W-C No.20/Folic Acid [Renal Caps Softgel] 1 cap PO DAILY 02/02/18 Calcitriol 0.5 mcg PO DAILY 02/02/18 Calcium Acetate 667 mg PO MEALS 02/02/18 Calcium Carbonate [Tums Chewable 500 mg Tab.chew] 1,000 mg PO QHS 02/02/18 Cinacalcet HCl [Sensipar 30 mg Tablet] 30 mg PO DAILY 02/02/18 Clonidine HCl 0.1 mg PO QHS 02/02/18 Lisinopril 10 mg PO DAILY 02/02/18 Metoprolol Succinate 25 mg PO DAILY 02/02/18 Simvastatin 10 mg PO QHS 02/02/18 Amiodarone HCl [Cordarone 200 mg Tablet] 200 mg PO DAILY 02/03/18 Carbamide Peroxide [Debrox] 15 ml OT TID 5 Days #1 bottle 02/03/18 Cetirizine HCl [Zyrtec] 10 mg PO DAILY #10 tab.rapdis 02/03/18 Fluticasone Propionate [Flonase Nasal Marion 50 Mcg/Mar[place] 16 gm] 2 sprays NASL Q12 #1 inhaler 02/03/18 Metoprolol Succinate [Toprol Xl 25 mg Tab.sr] 25 mg PO DAILY 02/03/18 Warfarin Sodium [Coumadin 3 mg Tablet] 3 mg PO QHS 30 Days #30 tablet 02/03/18 Allergies/Adverse Reactions: DRY GAMBRO DIALYZERS Allergy (Unknown, Uncoded 02/02/18 18:23) "BP drop, vomiting" PAPER TAPE Allergy (Uncoded 02/02/18 18:23) Rash Review of Systems Constitutional: ABSENT: chills, fever(s), headache(s), weakness Eyes: ABSENT: visual disturbances Ears: ABSENT: hearing changes Nose, Mouth, and Throat: ABSENT: headache(s) Cardiovascular: ABSENT: chest pain, dyspnea on exertion, edema, orthropnea, palpitations Respiratory: ABSENT: cough, dyspnea Gastrointestinal: ABSENT: abdominal pain, constipation, diarrhea, nausea, vomiting Musculoskeletal: PRESENT: deformity, joint swelling. ABSENT: muscle weakness Neurological: ABSENT: confusion, dizziness, focal weakness, numbness, weakness Psychiatric: ABSENT: anxiety, depression Physical Exam Vital Signs: Temp Pulse Resp BP Pulse Ox 97.2 F 62 16 134/75 H 97 02/03/18 13:53 02/03/18 13:53 02/03/18 13:53 02/03/18 13:53 02/03/18 13:53 Intake & Output 02/02/18 02/03/18 02/04/18 06:59 06:59 06:59 Intake Total 810 Output Total 400 3300 Balance 410 -3300 Weight 106.5 kg General appearance: PRESENT: no acute distress, well-developed, well-nourished Neck exam: PRESENT: full ROM. ABSENT: JVD Respiratory exam: PRESENT: clear to auscultation dave. ABSENT: accessory muscle use, crackles, rales, rhonchi, wheezes Cardiovascular exam: PRESENT: irregular rhythm, +S1, +S2. ABSENT: RRR GI/Abdominal exam: PRESENT: soft. ABSENT: distended, firm, rigid, tenderness Extremities exam: PRESENT: joint swelling. ABSENT: pedal edema, tenderness, +1 edema, +2 edema Musculoskeletal exam: PRESENT: deformity. ABSENT: normal inspection, tenderness Neurological exam: PRESENT: alert, awake, oriented to person, oriented to place , oriented to time, oriented to situation Skin exam: PRESENT: dry, intact, warm Results Laboratory Results: 02/03/18 06:25 02/03/18 06:25 02/02/18 02/03/18 02/03/18 17:56 06:25 06:25 WBC 6.3 RBC 3.60 L Hgb 11.4 L Hct 33.7 L MCV 94 MCH 31.6 MCHC 33.8 RDW 15.7 H Plt Count 176 Sodium 138.2 Potassium 5.5 H Chloride 96 L Carbon Dioxide 23 Anion Gap 19 BUN 88 H Creatinine 16.65 H Est GFR ( Amer) 4 L Est GFR (Non-Af Amer) 3 L Glucose 82 Calcium 8.2 L Magnesium 2.3 TSH 2.56 Free T4 1.46 Free T3 pg/mL 3.62 Impressions: Chest/Abdomen CTA 02/02/18 14:38 IMPRESSION: 1. NORMAL CTA OF THE CHEST. NO PULMONARY EMBOLI. 2. 3.8 CM MASS IN THE UPPER POLE OF THE RIGHT KIDNEY. THERE IS LIMITED EVALUATION DUE TO TIMING OF THE CONTRAST BOLUS BUT SUSPECT THIS IS A SOLID MASS. RECOMMEND ULTRASOUND OF THE KIDNEYS TO CONFIRM IF THIS IS A SOLID MASS. ULTIMATELY THE PATIENT MAY NEED OUTPATIENT MRI OF THE KIDNEYS. Chest X-Ray 02/02/18 14:39 IMPRESSION: NO ACUTE RADIOGRAPHIC FINDING IN THE CHEST. Assessment & Plan - Diagnosis (1) New onset atrial flutter Plan: per cardiology (2) End-stage renal disease on hemodialysis Is this a current diagnosis for this admission?: Yes Plan: stable, received dialysis today. Will be receiving dialysis tomorrow as outpatient. (3) Hyperkalemia Plan: receiving dialysis to lower it. Discussed with him about a low potassium diet. (4) Hypertension Is this a current diagnosis for this admission?: Yes Plan: controlled (5) AV fistula thrombosis Qualifiers: Encounter type: initial encounter Qualified Code(s): T82.868A - Thrombosis due to vascular prosthetic devices, implants and grafts, initial encounter Plan: seen by Dr. Romero as outpatient
--- NOTE | 2018-02-04 14:00 | CONSULTATION REPORT E ---
Consultation Report NAME: OLINDA OCAMPO : 1960 AGE: 57Y DATE: 02/03/2018 415 A TO: LUPILLO BOYCE M.D. FROM: Lamar SANDHU, Requesting Physician REASON FOR CONSULTATION: Atrial flutter. HISTORY: The patient is a 57-year-old male with a history of hypertension, end stage renal failure and history of paroxysmal atrial fibrillation who was admitted in the early part of 01/2018 with a right upper extremity phlebitis and also atrial flutter and converted to sinus rhythm. He was placed on Eliquis on discharge but the patient could not afford that due to his insurance not covering the medication and hence, he was not on any anticoagulation. He was seen in the dialysis department to have a high heart rate and he was sent to the Emergency Room where he was in atrial flutter with a heart rate of 140 beats per minute. The patient states that apart from Eliquis, he has been compliant with the other medications including amiodarone and Toprol XL. He denies any chest pain or discomfort. There are no palpitations. He is not aware of his atrial flutter. He has no PND or orthopnea. He denies any TIA or CVA symptoms. There is no leg edema. There are no palpitations or syncope. Note: In the Emergency Room, he had a heart rate that was in the 100s; the patient was given metoprolol extended release 25 mg p.o. x1, and this morning, the patient converted to sinus rhythm. Note that the patient was admitted last night. PAST MEDICAL HISTORY: Positive for history of hypertension, end stage renal disease on hemodialysis. History of paroxysmal atrial fibrillation, had converted to sinus rhythm in the recent admission in the early part of 01/2018 but had recurrence. He states that he is compliant with medications. There is no history of congestive heart failure. He denies any diabetes mellitus. He has no history of TIA or CVA. There is no PND, orthopnea or leg edema. There is no history of congestive heart failure. There is no history of diabetes mellitus or thyroid disease. There is no history of syncope. There is no history of TIA or CVA. He has a history of asthma which is very occasional. He does have a history of arthritis with a damaged nerve to the right hip. PAST SURGICAL HISTORY: Positive for AV fistula placement in the right arm and also a Perma-Cath placed in the past. SOCIAL HISTORY: The patient is a current every day smoker. There is no history of ETOH abuse. ALLERGIES: 1. DIALYSIS. 2. PAPER TAPE. FAMILY HISTORY: Positive for hypertension. There is no history of coronary artery disease. DISPOSITION: THE PATIENT IS A FULL CODE. He states that his brother, Jesu, is his surrogate healthcare decision maker. MEDICATIONS: 1. Heparin 25,000 units/250 mL IV continuously which has not been started. 2. Amiodarone 200 mg p.o. daily. 3. Calcitrol 0.5 mcg p.o. daily. 4. PhosLo 667 mg p.o. t.i.d. 5. Calcium carbonate 1000 mg p.o. at bedtime. 6. 530 mg p.o. daily. 7. Clonidine 0.1 mg p.o. at bedtime. 8. Flonase nasal spray 2 sprays nasally q. 12 hours p.r.n. 9. Folic acid/vitamin B complex with vitamin C 1 capsule p.o. daily. 10. Lisinopril 10 mg p.o. daily. 11. Metoprolol succinate, that is Toprol XL, 25 mg p.o. daily. 12. Simvastatin 10 mg p.o. at bedtime. 13. Warfarin 3 mg p.o. at bedtime. REVIEW OF SYSTEMS: CONSTITUTIONAL: Denies any fevers, chills or rigors. HEAD: Denies headaches or head injury. EYES: No history of amblyopia or diplopia. No history of amaurosis fugax. EARS: No history of tinnitus. No history of hearing loss. No history of recurrent ear infections. NOSE: History of nasal allergies present but no history of hay fever. Occasionally uses nasal spray. No history of nosebleeds. No nasal polyps. MOUTH: No altered taste sensation. No ulcers in the mouth. No bleeding from the gums. THROAT: Denies any odynophagia or dysphagia. No recurrent sore throats. SKIN: No pruritus. No yellowish discoloration of the skin. No psoriasis. No history of skin cancer. NECK: No neck pain. No swelling in the neck. LUNGS: No recent cough or wheezing. No history of COPD or chronic bronchitis. History of asthma which is very occasional and very intermittent. He does not use any inhalers daily. He uses them occasionally on a p.r.n. basis. He has symptoms suggestive of sleep apnea but has not had a sleep study. He has no history of pulmonary embolism. He had a right upper extremity thrombus in the last admission in the early part of 01/2018 but this was negative for workup of a pulmonary embolism. The patient has no hemoptysis or pleuritic chest pain. CARDIAC: No history of coronary artery disease. No history of congestive heart failure. History of hypertension present. History of paroxysmal atrial flutter. Patient was back in atrial flutter but now has converted to sinus rhythm. No contraindications for anticoagulation but the patient cannot afford the newer oral anticoagulation agents due to the cost. He will be a candidate for Coumadin and he will be a candidate for chronic anticoagulation therapy. There is no history of CHF. No history of rheumatic fever. No history of coronary heart disease. No history of leg edema. No history of palpitations in spite of his being in atrial flutter with a of 140 prior to admission. He denies syncope or near syncope. There is no leg edema. GASTROINTESTINAL: No history of GERD. No history of peptic ulcer disease. No history of GI bleed. No history of fatty food intolerance. No history of hepatitis. No history of cirrhosis. No history of jaundice. No history of altered bowel movements. MUSCULOSKELETAL: History of arthritis with right hip nerve damage. No history of collagen-vascular disease. RENAL: History of end stage renal disease, on dialysis. The patient did have dialysis today in the hospital. There are no symptoms of a UTI. No hematuria, pyuria or dysuria. ENDOCRINE: No history of diabetes mellitus. No history of thyroid disease. No history of polydipsia or polyuria. METABOLIC: History of moderate obesity. History of hyperlipidemia. No history of gout. CENTRAL NERVOUS SYSTEM: No history of TIA or CVA. No history of seizures, headaches or migraines. Symptoms suggestive of sleep apnea but has not had a workup for this. PSYCHIATRIC: No history of anxiety or depression. No history of suicidal ideation. VASCULAR: No history of calf claudication or buttocks claudication. He does have a history of right upper extremity thrombosis in the early part of 01/2018. No history of pulmonary embolism. HEMATOLOGICAL: No history of bleeding diathesis. No history of clotting disorders. PHYSICAL EXAMINATION: GENERAL: The patient is moderately obese. He is well groomed. He is in no acute distress. The patient just finished hemodialysis. VITAL SIGNS: He is afebrile with a temperature of 97.2 degrees Fahrenheit. Pulse is 62 beats per minute, regularly irregular. Blood pressure is 119/80. Respirations are 16 per minute. O2 sats are 97% on room air. HEENT: Head is atraumatic, normocephalic. Eyes: Pupils are equal, round, regular, reactive to light and accommodation. Extraocular movements are normal. There is no conjunctival pallor. There is no scleral icterus. Ears: Tympanic membranes are intact. External auditory canals are clear. Nose: There is no deviated nasal septum. There is no inflammation of the nasal mucous membranes. Mouth: Mucous membranes of the mouth are moist. Tongue is moist. There are no ulcers. There is no bleeding from the gums. Throat: There is no redness of the oropharynx. There are no exudates. SKIN: There is no skin cancer. There are no skin lesions. There is no petechia or ecchymosis. There are no skin rashes. NECK: Supple. There is no JVD. Carotids are equal. There is no bruit. There is no lymphadenopathy. There is no neck stiffness. There is no goitre. Trachea central. LUNGS: Clear to auscultation and percussion. There are no rhonchi, rales or wheezing. There is no chest wall tenderness. HEART: S1 and S2 is heard. There is no S3 gallop. There is no S4 gallop. S1 is of normal intensity. There is a systolic murmur in the left sternal border on the apex. There is no rub. ABDOMEN: Soft,obese, and nontender. There is no hepatosplenomegaly. Bowel sounds are well heard. EXTREMITIES: Femorals are diminished. There are no femoral bruits. Femorals are deep. Leg pulses are diminished. There is no pedal edema. There is no DVT or cellulitis. There is no calf tenderness. Note that the patient has a working AV fistula in the right arm. There is no cyanosis or clubbing. CENTRAL NERVOUS SYSTEM: The patient is conscious, awake, alert, and oriented x3 with no focal deficits. PSYCHIATRIC: The patient's judgment and insight are intact. His affect is normal. DIAGNOSTICS: The patient's EKG on admission showed atrial flutter with 2:1 conduction. His EKG from this morning shows sinus rhythm within normal limits. The patient had a chest, abdomen clear to auscultation yesterday which was normal clear to auscultation of the chest, no pulmonary emboli, 3.8 cm mass in the upper pole of the right kidney. This is a limited evaluation due to timing of the contrast bolus versus suggestion of solid mass. Recommend ultrasound of the kidneys to confirm if this is a solid mass. Ultimately, patient may need outpatient MRI of the kidneys. The patient's chest x-ray shows no acute radiographic findings. The patient's white count is 6300; hemoglobin 11.4; hematocrit is 33.7; and platelet count is 176,000. The patient's PTT is 33.2. 44.8 with a PT of 14, INR of 1.03. The patient's sodium is 138.2, potassium 5.5. The patient did undergo dialysis after this. His chloride is 96, CO2 is 23, the patient's BUN is 88, creatinine is 3.65, GFR is reduced at 4 mL which is end stage renal disease. Glucose is 82, calcium is 8.2, magnesium is 2.3. His liver function tests were normal with a low ALT of 16. His direct bilirubin was slightly elevated at 0.6. His total protein was 8.5, albumin is 4.5. His troponin I is 0.061 and his CPK MB is negative at 1.87. His TSH is 2.56, free T4 is normal at 1.46, free T3 is 3.62. IMPRESSION: 1. Paroxysmal atrial flutter. Patient back in sinus rhythm. Would recommend continuing the patient on amiodarone and Toprol XL 25 mg p.o. daily. Note that the patient cannot take the new anticoagulation agents such as Eliquis due to cost. Hence, we will start the patient on Coumadin at 3 mg p.o. at bedtime and increase to achieve a therapeutic INR within 2 to 3. The titration of the Coumadin can be done as an outpatient. 2. Hypertension. 3. End stage renal disease, on hemodialysis. 4. Hyperkalemia. 5. Hyperlipidemia. 6. Moderate obesity. 7. Symptoms suggestive of sleep apnea. 8. History of tobacco abuse. RECOMMENDATIONS: As mentioned above, the patient desires to follow up with me in the office since he has seen me in the past. I have given him my cell phone number and he will call me to make an appointment. We will get an outpatient IV Lexiscan Cardiolite stress test since the patient does have risk factors for coronary artery disease. Patient was counseled to stop smoking and the effects of smoking discussed. Note: Medical decision making is of moderate complexity. TIME SPENT: Note: The patient was seen at 9:00 and 55 minutes spent on this patient with more than 50% of the time spent on direct patient care. His medications have been reviewed and discussed with the patient and discussed with the hospitalist taking care of the patient. Also, I have reviewed his old records, especially the one in early 01/2018. The patient has my cell phone number and will call me if there are any problems. Discussed with the hospitalist and also the merchandiser. The merchandiser will follow the patient in the office. We will sign off the case and follow the patient as an outpatient. This has been discussed with the hospitalist taking care of the patient. DICTATING PHYSICIAN: LUPILLO BOYCE M.D. [id number] IRENEY#: [id number] ID: [id number] JOB#: [id number] ACCT: [id number] cc:LUPILLO BOYCE M.D. >
--- NOTE | 2018-02-04 14:28 | PDOC DISCHARGE SUMMARY ---
General - Admit/Disc Date/PCP Admission Date/Primary Care Provider: 02/02/18 17:49 NO LOCALMD Discharge Date: 02/03/18 - Discharge Diagnosis (1) End-stage renal disease on hemodialysis Is this a current diagnosis for this admission?: Yes (2) Deep venous thrombosis of right upper extremity Is this a current diagnosis for this admission?: Yes (3) Paroxysmal atrial flutter Is this a current diagnosis for this admission?: Yes - Additional Information Discharge Diet: Other (Comments) Discharge Activity: Activity As Tolerated Prescriptions: Warfarin Sodium [Coumadin 3 mg Tablet] 3 mg PO QHS 30 Days #30 tablet Carbamide Peroxide [Debrox] 15 ml OT TID 5 Days #1 bottle Cetirizine HCl [Zyrtec] 10 mg PO DAILY #10 tab.rapdis Fluticasone Propionate [Flonase Nasal Hebron 50 Mcg/Hebron 16 gm] 2 sprays NASL Q12 #1 inhaler Home Medications: Amiodarone HCl [Pacerone] 200 mg PO DAILY 02/02/18 B Complex W-C No.20/Folic Acid [Renal Caps Softgel] 1 cap PO DAILY 02/02/18 Calcitriol 0.5 mcg PO DAILY 02/02/18 Calcium Acetate 667 mg PO MEALS 02/02/18 Calcium Carbonate [Tums Chewable 500 mg Tab.chew] 1,000 mg PO QHS 02/02/18 Cinacalcet HCl [Sensipar 30 mg Tablet] 30 mg PO DAILY 02/02/18 Clonidine HCl 0.1 mg PO QHS 02/02/18 Lisinopril 10 mg PO DAILY 02/02/18 Metoprolol Succinate 25 mg PO DAILY 02/02/18 Simvastatin 10 mg PO QHS 02/02/18 Amiodarone HCl [Cordarone 200 mg Tablet] 200 mg PO DAILY 02/03/18 Carbamide Peroxide [Debrox] 15 ml OT TID 5 Days #1 bottle 02/03/18 Cetirizine HCl [Zyrtec] 10 mg PO DAILY #10 tab.rapdis 02/03/18 Fluticasone Propionate [Flonase Nasal Hebron 50 Mcg/Hebron 16 gm] 2 sprays NASL Q12 #1 inhaler 02/03/18 Metoprolol Succinate [Toprol Xl 25 mg Tab.sr] 25 mg PO DAILY 02/03/18 Warfarin Sodium [Coumadin 3 mg Tablet] 3 mg PO QHS 30 Days #30 tablet 02/03/18 History of Present Illness Patient complains of: right upper extremity DVT. paroxysmal atrial flutter History of Present Illness: OLINDA OCAMPO is a 57 year old male history of end-stage renal disease, on hemodialysis Friday, right upper extremity DVT was supposed to be on Eliquis but noncompliant secondary to cost and his insurance not covering it. Patient was at hemodialysis today and was told he had extremely high rates and was sent to the ED where he was found to be in atrial flutter with HR 140s. Patient denies chest pain or lightheadedness, did not feel the palpitations. His a-flutter spontaneously converted but heart rate still in intermittent atrial flutter with rates in the 90s to low 100s. He was referred to the hospitalist service for admission, further evaluation. Of note is that patient had CTA of the chest in the ED to rule out PE given the right upper extremity DVT, but this was negative for PE. Hospital Course Hospital Course: 1- Paroxysmal atrial flutter resolved without meds patient was referred to cardiology as outpatient patient to continue amiodarone and toprol XL 2- DVT Rt Upper extremity patient to take coumadin 3 mg daily check PT-INR in HD 3-CKD on HD patient to continue HD as scheduled Fri-Fri Physical Exam Vital Signs: Temp Pulse Resp BP Pulse Ox 97.2 F 62 16 134/75 H 97 02/03/18 13:53 02/03/18 13:53 02/03/18 13:53 02/03/18 13:53 02/03/18 13:53 Intake & Output 02/03/18 02/04/18 02/05/18 00:59 00:59 00:59 Intake Total 400 410 Output Total 125 3575 Balance 275 -3165 Weight 106.2 kg 106.5 kg GENERAL: Well-developed, no acute distress HEENT: Normocephalic/atraumatic NECK supple, no JVD CARDIOVASCULAR: normal S1-S2 LUNGS: CTA bilaterally ABDOMEN: Soft, NT, NL bowel sounds EXTREMITIES: Marked swelling of right upper extremity secondary to previous DVT , no clubbing, cyanosis NEUROLOGICAL: Alert, oriented x 3, nonfocal Results Laboratory Results: 02/03/18 06:25 02/03/18 06:25 Impressions: Chest/Abdomen CTA 02/02/18 14:38 IMPRESSION: 1. NORMAL CTA OF THE CHEST. NO PULMONARY EMBOLI. 2. 3.8 CM MASS IN THE UPPER POLE OF THE RIGHT KIDNEY. THERE IS LIMITED EVALUATION DUE TO TIMING OF THE CONTRAST BOLUS BUT SUSPECT THIS IS A SOLID MASS. RECOMMEND ULTRASOUND OF THE KIDNEYS TO CONFIRM IF THIS IS A SOLID MASS. ULTIMATELY THE PATIENT MAY NEED OUTPATIENT MRI OF THE KIDNEYS. Chest X-Ray 02/02/18 14:39 IMPRESSION: NO ACUTE RADIOGRAPHIC FINDING IN THE CHEST. Qualifiers - * PATIENT BEING DISCHARGED WITH ANY OF THE FOLLOWING DIAGNOSIS: VTE (PE or DVT) VTE patient discharged on overlapping Therapy?: No Reason(s) for not prescribing Overlap Therapy:: Not indicated - DVT 3 weeks ago (01/07/2018 ) patient not compliant to Eliquis ; was switched to coumadin
== END 2018-02-03 14:49 | disposition home or self-care (01) | DRG 308 ==
LOC: ER 14:22 → EH 17:49 → 4N 19:21
PROVIDERS: ADMIT Internal Medicine; ATTEND Internal Medicine
PROC: 5A1D70Z Performance of Urinary Filtration, Intermittent, Less than 6 Hours Per Day (ICD-10-PCS; principal; 2018-02-03)
DX: I48.0 Paroxysmal atrial fibrillation (principal); N18.6 End stage renal disease; I12.0 Hypertensive chronic kidney disease with stage 5 chronic kidney disease or end stage renal disease; I82.621 Acute embolism and thrombosis of deep veins of right upper extremity; I48.92 Unspecified atrial flutter; E87.5 Hyperkalemia; E78.5 Hyperlipidemia, unspecified; M19.90 Unspecified osteoarthritis, unspecified site; F17.200 Nicotine dependence, unspecified, uncomplicated; E66.8 Other obesity; T45.526A Underdosing of antithrombotic drugs, initial encounter; Z91.138 Patient's unintentional underdosing of medication regimen for other reason; J45.909 Unspecified asthma, uncomplicated; Z99.2 Dependence on renal dialysis; Z91.19 Patient's noncompliance with other medical treatment and regimen; Z59.9 Problem related to housing and economic circumstances, unspecified; Z86.718 Personal history of other venous thrombosis and embolism; Z88.8 Allergy status to other drugs, medicaments and biological substances; Z82.49 Family history of ischemic heart disease and other diseases of the circulatory system; Z79.01 Long term (current) use of anticoagulants; Z91.048 Other nonmedicinal substance allergy status
CPT/HCPCS: 36415; 71045; 71275; 80048; 80053; 82550; 82553; 83735; 84439; 84443; 84481; 84484; 85025; 85027; 85610; 85730; 93005; 93010; 99285; J1644; J3490

== ENCOUNTER 2018-02-16 16:06 | Inpatient (IN) | payer MEDICARE ==
[2018-02-16] MEDS ORDERED: ASPIRIN 81 MG TABLET, CHEWABLE PO ONE (16:52)
[2018-02-16] MEDS ORDERED: METOPROLOL TARTRATE PF/INJ 5 MG/5 ML SDV IV ONE (16:55)
[2018-02-16 17:13] LABS: ABSOLUTE BASOPHILS # (AUTO) 0.1 10^3/uL (0.0-0.2); ABSOLUTE EOSINOPHILS # (AUTO) 0.4 10^3/uL (0.0-0.6); ABSOLUTE LYMPHOCYTES (AUTO) 1.4 10^3/uL (0.5-4.7); ABSOLUTE MONOCYTES (AUTO) 0.7 10^3/uL (0.1-1.4); ABSOLUTE NEUT (AUTO) 3.9 10^3/uL (1.7-8.2); BASOPHILS % (AUTO) 1.1 % (0-2); EOSINOPHILS % (AUTO) 6.3 % (0-6); HEMATOCRIT 34.5 % (37.9-51.0); HEMOGLOBIN 11.5 g/dL (13.5-17.0); MEAN CORPUSCULAR HGB CONC 33.2 g/dL (32.0-36.0); MEAN CORPUSCULAR VOLUME 93 fl (80-97); MONOCYTES % (AUTO) 10.2 % (3-13); PLATELET COUNT 180 10^3/uL (150-450); RED CELL DISTRIBUTION WIDTH 15.3 % (11.5-14.0); SEGMENTED NEUTROPHILS % (AUTO) 60.4 % (42-78); TOTAL CELLS COUNTED % (AUTO) 100 %; WHITE BLOOD COUNT 6.4 10^3/uL (4.0-10.5)
--- NOTE | 2018-02-16 17:13 | ER Document Report ---
ED Cardiac - General Chief Complaint: Other Stated Complaint: RAPID HEART RATE Time Seen by Provider: 02/16/18 16:36 Notes: Patient says that he is having fluttering of his heart. He has had 2 prior episodes of such fluttering, the first in early January and the second 1 at near the end of January and today is his third episode. He is not having any chest pains , but feels some occasional fluttering in his chest. Is not nauseated or vomiting. Not having any shortness of breath. No recent illness or fever. Patient is currently on amiodarone 200 mg daily metoprolol, clonidine, and lisinopril, as well as simvastatin, Tums and Rolaids, and calcitriol. Patient is on hemodialysis and went to dialysis today and got about 25 minutes of the treatment until he started having his palpitations and irregular heartbeat and his treatment was stopped and he was sent here. TRAVEL OUTSIDE OF THE [place] IN LAST 30 DAYS: No - Related Data Allergies/Adverse Reactions: DRY GAMBRO DIALYZERS Allergy (Unknown, Uncoded 02/16/18 16:33) "BP drop, vomiting" PAPER TAPE Allergy (Uncoded 02/16/18 16:33) Rash Past Medical History - Social History Smoking Status: Current Every Day Smoker Frequency of alcohol use: None Drug Abuse: None Family History: Reviewed & Not Pertinent, Hypertension Patient has suicidal ideation: No Patient has homicidal ideation: No - Past Medical History Cardiac Medical History: Reports: Hx DVT, Hx Hypercholesterolemia, Hx Hypertension Denies: Hx Heart Attack Pulmonary Medical History: Reports: Hx Asthma Renal/ Medical History: Reports: Hx End Stage Renal Disease, Hx Hemodialysis Musculoskeltal Medical History: Reports Hx Arthritis - "DAMAGED NERVE TO RIGHT LEG" Past Surgical History: Reports: Hx Neurologic Surgery - Benign brain tumor removed 2010, Hx Vascular Surgery - Right upper arm AV fistula, right and left PermCaths - Immunizations Hx Diphtheria, Pertussis, Tetanus Vaccination: Yes Hx Pneumococcal Vaccination: 02/07/16 Review of Systems - Review of Systems Notes: REVIEW OF SYSTEMS: CONSTITUTIONAL : Denies fever. EENT: Denies eye, ear, nose or mouth or throat pain or other symptoms. CARDIOVASCULAR: Denies chest pain. RESPIRATORY: Denies cough, chest congestion, or shortness of breath. GASTROINTESTINAL: Denies abdominal pain or nausea, vomiting, or diarrhea. GENITOURINARY: On dialysis. MUSCULOSKELETAL: Denies back or neck pain. Denies joint pain or swelling. SKIN: Denies rash or skin lesions. NEUROLOGICAL: Denies LOC or altered mental status. Denies headache. Denies sensory loss or motor deficits. ALL OTHER SYSTEMS REVIEWED AND NEGATIVE. Physical Exam - Vital signs Vitals: Temp 98.0 F 02/16/18 16:10 Interpretation: Normal - Notes Notes: PHYSICAL EXAMINATION: GENERAL: Well-appearing, in no acute distress. HEAD: Atraumatic, normocephalic. EYES: Pupils equal round and reactive to light, extraocular movements intact. ENT: oropharynx clear without exudates. Moist mucous membranes. NECK: Normal range of motion, supple. LUNGS: Breath sounds clear and equal bilaterally. HEART: Regular rate and rhythm without murmurs, but at times, there is some irregular ectopic beats heard. ABDOMEN: Soft, nontender. No guarding or rebound. No masses. BACK: No tenderness throughout entire back. EXTREMITIES: Normal range of motion without pain. Hemodialysis fistula in the right upper arm. NEUROLOGICAL: Normal speech, normal gait. Normal sensory, motor, and reflex exams. Awake, alert, and oriented x3. Cranial nerves normal. PSYCH: Normal mood, normal affect. SKIN: Warm, dry, no rashes. Course - Re-evaluation Re-evalutation: 02/16/18 17:[address] Dumont about the patient and he advised starting with 5 mg of metoprolol IV. 02/16/18 18:[address] Dumont again who recommended giving the patient Cardizem bolus and drip. Patient was given Cardizem 10 mg bolus and his heart rate slowed down into the 70s and his blood pressure was 133/91. The drip is being held at this time. Spoke with Dr. Wheeler, patient's primary care physician, and he will admit the patient to [facility]. - Vital Signs Vital signs: Temp Pulse Resp BP Pulse Ox 98.0 F 20 133/91 H 96 02/16/18 16:10 02/16/18 18:04 02/16/18 18:04 02/16/18 18:04 - Laboratory Result Diagrams: 02/16/18 16:28 02/16/18 16:28 Laboratory results interpreted by me: 02/16/18 02/16/18 16:28 16:28 RBC 3.70 L Hgb 11.5 L Hct 34.5 L RDW 15.3 H Eosinophils % 6.3 H Chloride 97 L BUN 75 H Creatinine 13.59 H Est GFR ( Amer) 5 L Est GFR (Non-Af Amer) 4 L Direct Bilirubin 0.5 H ALT 15 L - EKG Interpretation by Me Rate: Tachycardia Rhythm: A.Flutter Voltage: Increased voltage, Consistant with LVH Critical Care Note - Critical Care Note Total time excluding time spent on procedures (mins): 45 Discharge - Discharge Clinical Impression: Atrial flutter, Tachycardia, End-stage renal disease on hemodialysis Condition: Stable Disposition: ADMITTED INPATIENT Admitting Provider: Riddhi Referrals: СВЕТЛАНА WHEELER MD [Primary Care Provider] - Follow up as needed
[2018-02-16 17:18] LABS: ALANINE AMINOTRANSFERASE 15 U/L (21-72); ALBUMIN 4.2 g/dL (3.5-5.0); ALKALINE PHOSPHATASE 69 U/L (38-126); ANION GAP 17 (5-19); ASPARTATE AMINO TRANSFERASE 28 U/L (17-59); BILIRUBIN,DIRECT 0.5 mg/dL (0.0-0.4); BILIRUBIN,TOTAL 0.5 mg/dL (0.2-1.3); BLOOD UREA NITROGEN 75 mg/dL (7-20); CALCIUM 8.8 mg/dL (8.4-10.2); CARBON DIOXIDE 29 mmol/L (22-30); CHLORIDE 97 mmol/L (98-107); CREATINE KINASE 158 U/L (55-170); GLUCOSE 86 mg/dL (75-110); POTASSIUM 4.7 mmol/L (3.6-5.0); SODIUM 142.6 mmol/L (137-145); TOTAL PROTEIN 8.1 g/dL (6.3-8.2)
[2018-02-16 17:29] LABS: CREATINE KINASE MB 1.68 ng/mL (<4.55)
[2018-02-16 17:33] LABS: TROPONIN I 0.054 ng/mL
[2018-02-16] MEDS ORDERED: DILTIAZEM HCL/D5W 125 MG/125 ML RTUINJ IV PRN (17:48)
[2018-02-16] MEDS ORDERED: DILTIAZEM HCL INJ 25 MG/5 ML VIAL IV ONE (17:49)
[2018-02-16 17:51] LABS: INTERNATIONAL RATION (INR) 1.01; PROTHROMBIN TIME 13.8 SEC (11.4-15.4)
--- NOTE | 2018-02-16 18:23 | EKG REPORT ---
SEVERITY:- ABNORMAL ECG - A-FLUTTER W/ PREDOM 3:1 AV BLOCK, A-RATE 294 NONSPECIFIC T ABNORMALITIES, LATERAL LEADS : Confirmed by: Sina Trejo MD 16-Feb-2018 18:22:17
[2018-02-16] MEDS ORDERED: WARFARIN SODIUM 3 MG TABLET PO SCH (22:00)
[2018-02-16 22:25] LABS: INTERNATIONAL RATION (INR) 1.02; PROTHROMBIN TIME 13.9 SEC (11.4-15.4)
[2018-02-16 22:38] LABS: LIPASE 126.9 U/L (23-300)
[2018-02-16 22:42] LABS: CREATINE KINASE MB 1.56 ng/mL (<4.55); TROPONIN I 0.061 ng/mL
[2018-02-16] MEDS ORDERED: METOPROLOL SUCCINATE 25 MG TAB.SR.24H PO ONE (22:45)
[2018-02-16] MEDS ORDERED: AMIODARONE HCL 200 MG TABLET PO ONE (22:45)
[2018-02-16 22:46] LABS: FREE T4 (FREE THYROXINE) 1.14 ng/dL (0.78-2.19)
[2018-02-16 23:00] LABS: THYROID STIMULATING HORMONE 5.06 uIU/mL (0.47-4.68)
[2018-02-17] MEDS ORDERED: ACETAMINOPHEN 325 MG TABLET ONE (01:15)
[2018-02-17 04:03] LABS: ABSOLUTE BASOPHILS # (AUTO) 0.1 10^3/uL (0.0-0.2); ABSOLUTE EOSINOPHILS # (AUTO) 0.4 10^3/uL (0.0-0.6); ABSOLUTE LYMPHOCYTES (AUTO) 1.9 10^3/uL (0.5-4.7); ABSOLUTE MONOCYTES (AUTO) 0.6 10^3/uL (0.1-1.4); BASOPHILS % (AUTO) 1.8 % (0-2); HEMATOCRIT 33.6 % (37.9-51.0); HEMOGLOBIN 11.4 g/dL (13.5-17.0); LYMPHOCYTES % (AUTO) 27.2 % (13-45); MEAN CORPUSCULAR HEMOGLOBIN 31.5 pg (27.0-33.4); MEAN CORPUSCULAR HGB CONC 33.9 g/dL (32.0-36.0); MEAN CORPUSCULAR VOLUME 93 fl (80-97); MONOCYTES % (AUTO) 9.1 % (3-13); PLATELET COUNT 163 10^3/uL (150-450); RED BLOOD COUNT 3.62 10^6/uL (4.35-5.55); RED CELL DISTRIBUTION WIDTH 15.5 % (11.5-14.0); SEGMENTED NEUTROPHILS % (AUTO) 56.9 % (42-78); TOTAL CELLS COUNTED % (AUTO) 100 %
[2018-02-17 04:07] LABS: INTERNATIONAL RATION (INR) 1.05; PROTHROMBIN TIME 14.2 SEC (11.4-15.4)
[2018-02-17 04:25] LABS: ALANINE AMINOTRANSFERASE 19 U/L (21-72); ALBUMIN 3.9 g/dL (3.5-5.0); ALKALINE PHOSPHATASE 67 U/L (38-126); ASPARTATE AMINO TRANSFERASE 23 U/L (17-59); BILIRUBIN,DIRECT 0.4 mg/dL (0.0-0.4); BILIRUBIN,TOTAL 0.4 mg/dL (0.2-1.3); BLOOD UREA NITROGEN 84 mg/dL (7-20); CALCIUM 8.7 mg/dL (8.4-10.2); CHOLESTEROL 161.34 mg/dL (0-200); CREATINE KINASE 181 U/L (55-170); GLUCOSE 107 mg/dL (75-110); TOTAL PROTEIN 7.2 g/dL (6.3-8.2); TRIGLYCERIDES 120 mg/dL (<150)
[2018-02-17 04:32] LABS: CARBON DIOXIDE 23 mmol/L (22-30); CHLORIDE 99 mmol/L (98-107); SODIUM 143.6 mmol/L (137-145)
[2018-02-17 04:35] LABS: CREATINE KINASE MB 1.61 ng/mL (<4.55)
[2018-02-17 04:36] LABS: DIRECT LDL 69 mg/dL (<100)
[2018-02-17 04:37] LABS: ANION GAP 22 (5-19)
[2018-02-17 04:39] LABS: TROPONIN I 0.055 ng/mL
[2018-02-17] MEDS ORDERED: AMIODARONE HCL 200 MG TABLET PO SCH (10:00)
[2018-02-17 13:19] LABS: CREATINE KINASE MB 1.78 ng/mL (<4.55); TROPONIN I 0.057 ng/mL
--- NOTE | 2018-02-17 13:34 | EKG REPORT ---
SEVERITY:- ABNORMAL ECG - A-FLUTTER W/ PREDOM 4:1 AV BLOCK, A-RATE [address] ELEVATION, ANTEROLATERAL LEADS DUE TO FLUTTER WAVES. : Confirmed by: Sina Trejo MD 17-Feb-2018 13:33:35
--- NOTE | 2018-02-17 14:02 | PDOC CONSULTATION ---
Consultation Consult Date: 02/17/18 Consult reason:: Hemodialysis. History of Present Illness Admission Date/PCP: 02/16/18 18:53 СВЕТЛАНА WHEELER MD History of Present Illness: OLINDA OCAMPO is a 57 year old male with history of ESRD on hemodialysis in the background of hypertension and noncompliance with medications and treatment and fluids was admitted to the history of intermittent palpitations. Evaluations revealed the patient was in atrial flutter with 3 to 1 block. He was given IV Cardizem and now presently rate controlled. Patient seen on dialysis undergoing dialysis without any issues. Patient denies any such chest pain or shortness of breath. However after about 1-1/2 hours of dialysis patient complained of having tinnitus in his ears. There is no other focal deficits. Fluid removal was slowed down and he recovered within about 10 minutes. Patient admits to noncompliance with his medications including amiodarone and blood pressure medications and fluid and diet. Today he has approximately a 2-9 L of fluid overload. Past Medical History Cardiac Medical History: Reports: DVT, Hyperlipidemia, Hypertension-primary Denies: Coronary Artery Disease, Myocardial Infarction Pulmonary Medical History: Reports: Asthma Denies: Bronchitis, Chronic Obstructive Pulmonary Disease (COPD), Pneumonia Neurological Medical History: Denies: Seizures Renal/ Medical History: Reports: End Stage Renal Disease, Secondary Hyperparathyroidism Musculoskeltal Medical History: Reports: Arthritis - "DAMAGED NERVE TO RIGHT LEG " Psychiatric Medical History: Denies: Depression Hematology Medical History: Reports Anemia of Chronic Kidney Disease Past Surgical History Past Surgical History: Reports: Vascular Surgery - Right upper arm AV fistula, right and left PermCaths Social History Smoking Status: Former Smoker Number of Years Smokin Frequency of Alcohol Use: None Hx Recreational Drug Use: No Drugs: None Hx Prescription Drug Abuse: No - Advance Directive Resuscitation Status: Full Code Family History Parental Family History Reviewed: Yes - Negative for ESRD. Children Family History Reviewed: Yes - He has a daughter with ESRD from hypertension on dialysis as well. Sibling(s) Family History Reviewed.: No Medication/Allergy Home Medications: Amiodarone HCl [Pacerone] 200 mg PO DAILY 02/02/18 Metoprolol Succinate [Toprol Xl 25 mg Tab.sr] 25 mg PO DAILY 02/03/18 Warfarin Sodium [Coumadin 3 mg Tablet] 3 mg PO QHS 30 Days #30 tablet 02/03/18 Allergies/Adverse Reactions: DRY GAMBRO DIALYZERS Allergy (Unknown, Uncoded 02/16/18 16:33) "BP drop, vomiting" PAPER TAPE Allergy (Uncoded 02/16/18 16:33) Rash Review of Systems Constitutional: ABSENT: fatigue, fever(s), headache(s), night sweats, weakness Nose, Mouth, and Throat: ABSENT: mouth pain, sore throat Cardiovascular: ABSENT: chest pain, dyspnea on exertion, edema Respiratory: ABSENT: dyspnea, hemoptysis Gastrointestinal: ABSENT: abdominal pain, constipation, diarrhea, dysphagia, heartburn, nausea, vomiting Integumentary: ABSENT: lesions, pruritus Neurological: ABSENT: abnormal movements, abnormal speech, confusion, convulsions, focal weakness Hematologic/Lymphatic: ABSENT: easy bleeding, easy bruising Physical Exam Vital Signs: Temp Pulse Resp BP Pulse Ox 97.4 F 85 18 167/98 H 99 02/17/18 07:31 02/17/18 07:31 02/17/18 07:31 02/17/18 07:31 02/17/18 07:31 Intake & Output 02/16/18 02/17/18 02/18/18 06:59 06:59 06:59 Intake Total 518 Output Total 0 Balance 518 0 Weight 106.6 kg General appearance: PRESENT: no acute distress Eye exam: PRESENT: conjunctiva pink, EOMI, PERRLA Ear exam: PRESENT: normal external ear exam Mouth exam: PRESENT: moist, neck supple Neck exam: ABSENT: lymphadenopathy, meningismus, tenderness, thyromegaly, tracheal deviation Respiratory exam: PRESENT: clear to auscultation dave, crackles Cardiovascular exam: PRESENT: +S1, +S2 GI/Abdominal exam: PRESENT: normal bowel sounds, soft. ABSENT: organomegaly, tenderness Extremities exam: PRESENT: pedal edema Neurological exam: PRESENT: alert, awake, oriented to person, oriented to place , oriented to time Skin exam: PRESENT: normal color. ABSENT: cyanosis, erythema, mottled Results Laboratory Results: 02/17/18 03:52 02/17/18 03:52 02/16/18 02/16/18 02/16/18 22:07 22:07 22:07 WBC RBC Hgb Hct MCV MCH MCHC RDW Plt Count Seg Neutrophils % Lymphocytes % Monocytes % Eosinophils % Basophils % Absolute Neutrophils Absolute Lymphocytes Absolute Monocytes Absolute Eosinophils Absolute Basophils Sodium Potassium Chloride Carbon Dioxide Anion Gap BUN Creatinine Est GFR ( Amer) Est GFR (Non-Af Amer) Glucose Calcium Total Bilirubin AST ALT Alkaline Phosphatase Ammonia < 8.7 L Total Protein Albumin Triglycerides Cholesterol LDL Cholesterol Direct VLDL Cholesterol HDL Cholesterol Amylase 181 H Lipase 126.9 TSH 5.06 H Free T4 1.14 02/17/18 02/17/18 03:52 03:52 WBC 7.0 RBC 3.62 L Hgb 11.4 L Hct 33.6 L MCV 93 MCH 31.5 MCHC 33.9 RDW 15.5 H Plt Count 163 Seg Neutrophils % 56.9 Lymphocytes % 27.2 Monocytes % 9.1 Eosinophils % 5.0 Basophils % 1.8 Absolute Neutrophils 4.0 Absolute Lymphocytes 1.9 Absolute Monocytes 0.6 Absolute Eosinophils 0.4 Absolute Basophils 0.1 Sodium 143.6 Potassium 5.0 Chloride 99 Carbon Dioxide 23 Anion Gap 22 H BUN 84 H Creatinine 15.64 H Est GFR ( Amer) 4 L Est GFR (Non-Af Amer) 3 L Glucose 107 Calcium 8.7 Total Bilirubin 0.4 AST 23 ALT 19 L Alkaline Phosphatase 67 Ammonia Total Protein 7.2 Albumin 3.9 Triglycerides 120 Cholesterol 161.34 LDL Cholesterol Direct 69 VLDL Cholesterol 24.0 HDL Cholesterol 54 Amylase Lipase TSH Free T4 02/16/18 02/16/18 02/16/18 20:40 22:07 22:07 Creatine Kinase 158 Cancelled CK-MB (CK-2) Troponin I 0.066 02/16/18 02/17/18 02/17/18 22:07 03:52 03:52 Creatine Kinase 181 H CK-MB (CK-2) 1.56 1.61 Troponin I 0.061 0.055 02/17/18 02/17/18 11:57 11:57 Creatine Kinase 163 CK-MB (CK-2) 1.78 Troponin I 0.057 Assessment & Plan - Diagnosis (1) Atrial flutter Plan: Currently rate controlled. Further management as per cardiology and primary care.Patient unfortunately has a history of severe noncompliance with medications. Many times he does not take any of his blood pressure medications and other medicines that he needs to be be taken and results in severe uncontrolled hypertension. Besides that he has severe fluid gains between dialysis in spite of numerous advises on the consequences. (2) End-stage renal disease on hemodialysis Plan: Patient currently undergoing dialysis without any issues. Is being supervised to ensure safe and smooth procedure. We will plan to remove between 4-5 L today and then we will get him on dialysis again tomorrow if he is still in the hospital to remove almost similar amount of fluid. Orders were discussed with the treating nurse Patricia. Vital signs are stable. Discussed at length about compliance with diet and medications and fluid gains between dialysis treatments. (3) Hypertension Plan: Relatively controlled on dialysis. See response to ultrafiltration on dialysis. Advised compliance with medications. (4) Non-compliance Plan: Patient unfortunately is severely noncompliant with diet, medications, severe fluid gains. Numerous advises on the consequences including cardiac arrest from potassium, congestive heart failure has fell on deaf years.
[2018-02-17] MEDS: METOPROLOL SUCCINATE 25 MG TAB.SR.24H PO SCH (15:01)
[2018-02-17] MEDS: ACETAMINOPHEN 325 MG TABLET PO PRN ×2 (15:01→22:58)
[2018-02-17] MEDS: APIXABAN 2.5 MG TABLET PO SCH (18:35)
--- NOTE | 2018-02-17 21:38 | PDOC H&P ---
History of Present Illness Admission Date/PCP: 02/16/18 18:53 СВЕТЛАНА WHEELER MD History of Present Illness: OLINDA OCAMPO is a 57 year old male, He was in dialysis undergoing hemodialysis when he had episode of palpitations, the dialysis session was stopped and he was referred to the emergency room for further evaluation. In the emergency room he was found to have atrial flutter, was treated with Cardizem infusion and he was advised to be hospitalized. Patient follows with cardiology for the management of the atrial flutter presently on amiodarone and also Cardizem, ablation was contemplated as an option of treatment for this patient he apparently was supposed to be on anticoagulant Coumadin but patient is not compliant with the medication. Past Medical History Cardiac Medical History: Reports: DVT, Hyperlipidema, Hypertension Pulmonary Medical History: Reports: Asthma Renal/ Medical History: Reports: End Stage Renal Disease Musculoskeltal Medical History: Reports: Arthritis - "DAMAGED NERVE TO RIGHT LEG " Past Surgical History Past Surgical History: Reports: Vascular Surgery - Right upper arm AV fistula, right and left PermCaths Social History Smoking Status: Former Smoker Number of Years Smokin Frequency of Alcohol Use: None Hx Recreational Drug Use: No Drugs: None Hx Prescription Drug Abuse: No - Advance Directive Resuscitation Status: Full Code Family History Family History: Reviewed & Not Pertinent, Hypertension Parental Family History Reviewed: Yes Children Family History Reviewed: Yes Sibling(s) Family History Reviewed.: Yes Medication/Allergy Home Medications: Amiodarone HCl [Pacerone] 200 mg PO DAILY 02/02/18 Metoprolol Succinate [Toprol Xl 25 mg Tab.sr] 25 mg PO DAILY 02/03/18 Warfarin Sodium [Coumadin 3 mg Tablet] 3 mg PO QHS 30 Days #30 tablet 02/03/18 Allergies/Adverse Reactions: DRY GAMBRO DIALYZERS Allergy (Unknown, Uncoded 02/16/18 16:33) "BP drop, vomiting" PAPER TAPE Allergy (Uncoded 02/16/18 16:33) Rash Review of Systems Constitutional: ABSENT: chills, fever(s), headache(s), weight gain, weight loss Eyes: ABSENT: visual disturbances Ears: ABSENT: hearing changes Cardiovascular: PRESENT: palpitations Respiratory: ABSENT: cough, hemoptysis Gastrointestinal: ABSENT: abdominal pain, constipation, diarrhea, hematemesis, hematochezia, nausea, vomiting Genitourinary: ABSENT: dysuria, hematuria Musculoskeletal: ABSENT: joint swelling Integumentary: ABSENT: rash, wounds Neurological: ABSENT: abnormal gait, abnormal speech, confusion, dizziness, focal weakness, syncope Psychiatric: ABSENT: anxiety, depression, homidical ideation, suicidal ideation Endocrine: ABSENT: cold intolerance, heat intolerance, menstrual abnormalities, polydipsia, polyuria Hematologic/Lymphatic: ABSENT: easy bleeding, easy bruising, lymphadenopathy Physical Exam Vital Signs: Temp Pulse Resp BP Pulse Ox 98.3 F 64 20 135/74 H 100 02/17/18 20:05 02/17/18 20:05 02/17/18 20:05 02/17/18 20:05 02/17/18 20:05 Intake & Output 02/16/18 02/17/18 02/18/18 06:59 06:59 06:59 Intake Total 518 967 Output Total 4000 Balance 518 -3033 Weight 106.6 kg General appearance: PRESENT: no acute distress, well-developed, well-nourished Head exam: PRESENT: atraumatic, normocephalic Eye exam: PRESENT: conjunctiva pink, EOMI, PERRLA Ear exam: PRESENT: normal external ear exam Mouth exam: PRESENT: moist, tongue midline Neck exam: PRESENT: full ROM Respiratory exam: PRESENT: clear to auscultation dave Cardiovascular exam: PRESENT: RRR, +S1, +S2 Vascular exam: PRESENT: normal capillary refill, other - Right upper extremity swelling from previous AV fistula thrombosis GI/Abdominal exam: PRESENT: normal bowel sounds, soft Rectal exam: PRESENT: deferred Neurological exam: PRESENT: alert, awake, oriented to person, oriented to place , oriented to time, oriented to situation, CN II-XII grossly intact Psychiatric exam: PRESENT: appropriate affect, normal mood Skin exam: PRESENT: dry, intact, warm Results Laboratory Results: 02/17/18 03:52 02/17/18 03:52 02/16/18 02/16/18 02/16/18 22:07 22:07 22:07 WBC RBC Hgb Hct MCV MCH MCHC RDW Plt Count Seg Neutrophils % Lymphocytes % Monocytes % Eosinophils % Basophils % Absolute Neutrophils Absolute Lymphocytes Absolute Monocytes Absolute Eosinophils Absolute Basophils Sodium Potassium Chloride Carbon Dioxide Anion Gap BUN Creatinine Est GFR ( Amer) Est GFR (Non-Af Amer) Glucose Calcium Total Bilirubin AST ALT Alkaline Phosphatase Ammonia < 8.7 L Total Protein Albumin Triglycerides Cholesterol LDL Cholesterol Direct VLDL Cholesterol HDL Cholesterol Amylase 181 H Lipase 126.9 TSH 5.06 H Free T4 1.14 02/17/18 02/17/18 03:52 03:52 WBC 7.0 RBC 3.62 L Hgb 11.4 L Hct 33.6 L MCV 93 MCH 31.5 MCHC 33.9 RDW 15.5 H Plt Count 163 Seg Neutrophils % 56.9 Lymphocytes % 27.2 Monocytes % 9.1 Eosinophils % 5.0 Basophils % 1.8 Absolute Neutrophils 4.0 Absolute Lymphocytes 1.9 Absolute Monocytes 0.6 Absolute Eosinophils 0.4 Absolute Basophils 0.1 Sodium 143.6 Potassium 5.0 Chloride 99 Carbon Dioxide 23 Anion Gap 22 H BUN 84 H Creatinine 15.64 H Est GFR ( Amer) 4 L Est GFR (Non-Af Amer) 3 L Glucose 107 Calcium 8.7 Total Bilirubin 0.4 AST 23 ALT 19 L Alkaline Phosphatase 67 Ammonia Total Protein 7.2 Albumin 3.9 Triglycerides 120 Cholesterol 161.34 LDL Cholesterol Direct 69 VLDL Cholesterol 24.0 HDL Cholesterol 54 Amylase Lipase TSH Free T4 02/16/18 02/16/18 02/16/18 20:40 22:07 22:07 Creatine Kinase 158 Cancelled CK-MB (CK-2) Troponin I 0.066 02/16/18 02/17/18 02/17/18 22:07 03:52 03:52 Creatine Kinase 181 H CK-MB (CK-2) 1.56 1.61 Troponin I 0.061 0.055 02/17/18 02/17/18 11:57 11:57 Creatine Kinase 163 CK-MB (CK-2) 1.78 Troponin I 0.057 Assessment & Plan - Diagnosis (1) Atrial flutter Qualifiers: Atrial flutter type: unspecified Qualified Code(s): I48.92 - Unspecified atrial flutter Is this a current diagnosis for this admission?: Yes (2) End-stage renal disease on hemodialysis Is this a current diagnosis for this admission?: Yes (3) Non-compliance Is this a current diagnosis for this admission?: Yes
--- NOTE | 2018-02-17 21:40 | PDOC PROGRESS REPORT ---
Subjective Progress Note for:: 02/17/18 Subjective:: Patient was admitted yesterday for the management of atrial flutter, he was seen in consultation by Dr. Dumont, a complaint of pain in the left ear, on inspection of the ear he has impacted cerumen, this could be removed outpatient after discharge Reason For Visit: A FLUTTER WITH RVR, ESRD Physical Exam Vital Signs: Temp Pulse Resp BP Pulse Ox 98.3 F 64 20 135/74 H 100 02/17/18 20:05 02/17/18 20:05 02/17/18 20:05 02/17/18 20:05 02/17/18 20:05 Intake & Output 02/16/18 02/17/18 02/18/18 06:59 06:59 06:59 Intake Total 518 967 Output Total 4000 Balance 518 -3033 Weight 106.6 kg General appearance: PRESENT: no acute distress Eye exam: PRESENT: PERRLA Respiratory exam: PRESENT: clear to auscultation dave Cardiovascular exam: PRESENT: +S1, +S2 GI/Abdominal exam: PRESENT: soft Neurological exam: PRESENT: alert, CN II-XII grossly intact Results Laboratory Results: 02/17/18 03:52 02/17/18 03:52 02/16/18 02/16/18 02/16/18 22:07 22:07 22:07 WBC RBC Hgb Hct MCV MCH MCHC RDW Plt Count Seg Neutrophils % Lymphocytes % Monocytes % Eosinophils % Basophils % Absolute Neutrophils Absolute Lymphocytes Absolute Monocytes Absolute Eosinophils Absolute Basophils Sodium Potassium Chloride Carbon Dioxide Anion Gap BUN Creatinine Est GFR ( Amer) Est GFR (Non-Af Amer) Glucose Calcium Total Bilirubin AST ALT Alkaline Phosphatase Ammonia < 8.7 L Total Protein Albumin Triglycerides Cholesterol LDL Cholesterol Direct VLDL Cholesterol HDL Cholesterol Amylase 181 H Lipase 126.9 TSH 5.06 H Free T4 1.14 02/17/18 02/17/18 03:52 03:52 WBC 7.0 RBC 3.62 L Hgb 11.4 L Hct 33.6 L MCV 93 MCH 31.5 MCHC 33.9 RDW 15.5 H Plt Count 163 Seg Neutrophils % 56.9 Lymphocytes % 27.2 Monocytes % 9.1 Eosinophils % 5.0 Basophils % 1.8 Absolute Neutrophils 4.0 Absolute Lymphocytes 1.9 Absolute Monocytes 0.6 Absolute Eosinophils 0.4 Absolute Basophils 0.1 Sodium 143.6 Potassium 5.0 Chloride 99 Carbon Dioxide 23 Anion Gap 22 H BUN 84 H Creatinine 15.64 H Est GFR ( Amer) 4 L Est GFR (Non-Af Amer) 3 L Glucose 107 Calcium 8.7 Total Bilirubin 0.4 AST 23 ALT 19 L Alkaline Phosphatase 67 Ammonia Total Protein 7.2 Albumin 3.9 Triglycerides 120 Cholesterol 161.34 LDL Cholesterol Direct 69 VLDL Cholesterol 24.0 HDL Cholesterol 54 Amylase Lipase TSH Free T4 02/16/18 02/16/18 02/16/18 20:40 22:07 22:07 Creatine Kinase 158 Cancelled CK-MB (CK-2) Troponin I 0.066 02/16/18 02/17/18 02/17/18 22:07 03:52 03:52 Creatine Kinase 181 H CK-MB (CK-2) 1.56 1.61 Troponin I 0.061 0.055 02/17/18 02/17/18 11:57 11:57 Creatine Kinase 163 CK-MB (CK-2) 1.78 Troponin I 0.057 Assessment & Plan - Diagnosis (1) Atrial flutter Qualifiers: Atrial flutter type: unspecified Qualified Code(s): I48.92 - Unspecified atrial flutter Is this a current diagnosis for this admission?: Yes (2) End-stage renal disease on hemodialysis Is this a current diagnosis for this admission?: Yes Plan: Patient had dialysis today, scheduled for another one tomorrow, nephrology following (3) Non-compliance Is this a current diagnosis for this admission?: Yes
[2018-02-17] MEDS: AMIODARONE HCL 200 MG TABLET PO SCH (21:54)
--- NOTE | 2018-02-18 04:44 | CONSULTATION REPORT E ---
Consultation Report NAME: OLINDA OCAMPO : 1960 AGE: 57Y DATE: 02/17/2018 334 A TO: LUPILLO BOYCE M.D. FROM: СВЕТЛАНА WHEELER M.D. Requesting Physician REASON FOR CONSULTATION: Recurrence of atrial flutter. HISTORY OF PRESENT ILLNESS: The patient is a 57-year-old -[place] male with a known history of hypertension, end-stage renal disease on hemodialysis, and a history of paroxysmal atrial flutter, who was admitted in January with recurrence of atrial flutter and with histodialysis and after the patient was given his amiodarone and an extra dose of beta emelina, he converted to sinus rhythm and went home. Note that the patient earlier was supposed to be on Eliquis, but the patient could not afford it and hence, the patient was placed on Coumadin. The patient's INR was subtherapeutic. The patient noticed that he was having a fluttering sensation in the chest, came to the Emergency Room, and was found to be in atrial flutter with rapid ventricular response, and he was given IV Cardizem with no effect, and was admitted for further workup. He was also started on a Cardizem drip, which has now been discontinued. The patient after dialysis again converted to sinus rhythm. The patient states that he felt fluttering in his chest for about an hour's duration before he came to the Emergency Room. He denies any chest pain or discomfort. There is no shortness of breath. There is no dizziness. There is no syncope. There is no TIA or CVA symptoms. PAST MEDICAL HISTORY: Positive for a history of hypertension and history of end-stage renal disease. History of paroxysmal atrial fibrillation converted to sinus rhythm in the recent admission, and subsequently paroxysmal atrial flutter converted to sinus rhythm. He states that he is compliant with his medications, although in the past he had not taken Eliquis due to financial reasons. He states that he is taking his Coumadin, but it is subtherapeutic. There is no history of congestive heart failure. He denies any diabetes mellitus. There is no history of TIA or CVA. There is no thyroid disease. The patient has some symptoms suggestive of sleep apnea, but has not had a formal sleep study. PAST SURGICAL HISTORY: Positive for AV fistula placement in the right arm and also Perma-Cath placement. ALLERGIES: 1. [facility] 2. PAPER TAPE. FAMILY HISTORY: Positive for hypertension. There is no history of coronary artery disease. DISPOSITION: The patient is a full code. He states that his brother is his surrogate healthcare decision maker. MEDICATIONS: 1. Tylenol 325 mg x1. 2. He is on Tylenol 650 mg p.o. q. 4 hours p.r.n. 3. He is on amiodarone 200 mg p.o. daily. 4. He is on Coumadin 3 mg p.o. at bedtime. 5. He is on metoprolol, that is Toprol XL 25 mg p.o. daily. REVIEW OF SYSTEMS: CONSTITUTIONAL: Denies any fever, chills, or rigors. Denies any weakness or generalized fatigue. HEAD: Denies headaches or head injury. EYES: No history of amblyopia or diplopia. No history of amaurosis fugax. EARS: No history of tinnitus. No history of hearing loss. No history of recurrent ear infections. NOSE: History of nasal allergies present, but no history of hay fever. Occasionally uses nasal spray. No history of nosebleeds. No nasal polyposis. MOUTH: No altered taste sensation. No ulcers in the mouth. No bleeding from the gums. THROAT: No odynophagia or dysphagia. No recurrent sore throats. SKIN: No pruritus. No yellowish discoloration of the skin. No psoriasis. No history of skin cancer. LUNGS: No recent cough or wheezing. No history of COPD or chronic bronchitis. He has a history of asthma, which is very occasional and very intermittent. Has not had an attack in a long time. He has no history of pulmonary embolism. He has symptoms suggestive of sleep apnea, but has not had a sleep study as yet. He has no history of pulmonary embolism. No hemoptysis or pleuritic chest pain. CARDIAC: No history of coronary artery disease. No history of congestive heart failure. No history of anginal symptoms. No history of [place]. There is a history of hypertension. No history of congestive heart failure. He has a history of paroxysmal atrial flutter and a history of paroxysmal atrial fibrillation. He has no PND, orthopnea, or leg edema. There is no syncope. There is no history of coronary artery disease. No history of rheumatic fever. NECK: No complaints of neck pain. No swelling in the neck. MUSCULOSKELETAL: He has a history of arthritis with right hip nerve damage. No history of collagen-vascular disease. GASTROINTESTINAL: No history of GERD. No history of peptic ulcer disease. No history of GI bleed. No history of altered bowel movements. No history of fatty food intolerance. No history of hepatitis or cirrhosis. No history of jaundice. RENAL: History of end-stage renal disease on dialysis. The patient states he is compliant with diet and dialysis. The patient had dialysis earlier this morning. There are no symptoms of a UTI. No hematuria, pyuria, or dysuria. ENDOCRINE: No history of diabetes mellitus. No history of thyroid disease. No history of polydipsia or polyuria. No history of heat or cold intolerance. METABOLIC: History of moderate obesity. History of hyperlipidemia. No history of gout. CENTRAL NERVOUS SYSTEM: No history of TIA or CVA. No history of seizures, headaches, or migraines. There are symptoms suggestive of sleep apnea, but has not had a sleep study. PSYCHIATRIC: No history of anxiety or depression. No history of suicidal ideation. No history of homicidal ideation. VASCULAR: No history of calf or buttock claudication. No history of pulmonary embolism. He has a past history of right upper extremity embolism in the early part of 01/2018. No recurrence. HEMATOLOGICAL: No history of bleeding diathesis. No history of clotting disorders. PHYSICAL EXAMINATION: GENERAL: The patient is moderately obese. He is well groomed. He is in no acute distress. The patient was seen at around 2 p.m. today after dialysis. VITAL SIGNS: He is afebrile with a temperature of *------* degrees Fahrenheit. Pulse is 78 beats per minute, present sinus rhythm. Blood pressure 132/85. Respirations are 18 per minute. O2 sat is 100% on room air. HEENT: Head is atraumatic, normocephalic. Eyes: Pupils are equal, round, regular, reactive to light and accommodation. Extraocular movements are normal. There is no conjunctival pallor. There is no scleral icterus. Ears: Tympanic membranes are intact. External auditory canals are clear. Nose: There is no deviated nasal septum. There is no inflammation of the nasal mucous membranes. Mouth: Mucous membranes of the mouth moist. Tongue is moist. There are no ulcers. There is no bleeding from the gums. Throat: There is no redness of the oropharynx. There are no exudates. SKIN: There is no skin cancer. There are no skin lesions. There is no petechia or ecchymosis. There are no skin rashes. NECK: Supple. There is no JVD. Carotids are equal. There is no bruit. There is no lymphadenopathy. There is no neck stiffness. There is no goiter. Trachea is central. LUNGS: Clear to auscultation and percussion. There is no chest wall tenderness. There are no rhonchi, rales or wheezing in the lungs. HEART: S1 and S2 are heard. There is no S3 gallop. S1 is of normal intensity. There is a systolic murmur in the left sternal border in the apex. There is no rub. ABDOMEN: Soft, obese, nontender. There is no hepatosplenomegaly. Bowel sounds are well heard. EXTREMITIES: Femorals are diminished. There are no femoral bruits. Leg pulses are diminished. There is no pedal edema. There is no DVT or cellulitis. There is no calf tenderness. The patient has a working AV fistula in the right arm. There is no cyanosis or clubbing. CENTRAL NERVOUS SYSTEM: The patient is conscious, awake, alert, and oriented x3 with no focal deficits. PSYCHIATRIC: The patient's judgment and insight are intact. His affect is normal. DIAGNOSTIC STUDIES: The patient's EKG done yesterday shows atrial flutter, which is typical atrial flutter, with a ventricular response of 95. Nonspecific T abnormality diffusely. The patient's EKG done this morning shows atrial flutter with a ventricular response of 72 beats per minute. Subsequently, the monitor strips show that the patient is in sinus rhythm. The patient's white count is 7000. Hemoglobin is 11.4, hematocrit 33.6. Platelet count is 163,000. The patient's pro time is 14. INR is 1.05. The patient's sodium is 143.6. Potassium is 5.0. Chloride is 99. CO2 is 23. The patient's BUN is 84, creatinine 15.6. GFR is reduced at 4 mL/min. His calcium is 8.7 and his total bilirubin is 0.4. His liver function tests are normal except for a low ALT of 19. The patient's troponin I is negative/indeterminate at 0.061, 0.055, and 0.057. His CPK-MBs are negative. His total protein is 7.2. Albumin is 3.9. Triglycerides are 120. His LDL cholesterol is good at 69. His HDL cholesterol is good at 54. His TSH is slightly elevated at 5.06. His free T4 is 1.40. His amylase is 181. His lipase is 126. IMPRESSION: 1. Paroxysmal atrial flutter, at present in sinus rhythm. Recommendation: Note that the patient's INR is subtherapeutic. Will increase the patient's amiodarone to 200 mg p.o. q.12 hours. I have gotten samples from the office for 5 weeks of Eliquis 2.5 mg p.o. b.i.d. Will later set up an appointment for the patient to see Dr. Garcia in [place] for possible ablation of the atrial flutter so that the patient can be off blood thinners and also off amiodarone. 2. Hypertension. 3. End-stage renal disease on hemodialysis. 4. History of hyperlipidemia. At present, lipid levels are good. 5. Left hip arthritis. RECOMMENDATIONS: As mentioned above, I will increase the patient's amiodarone. Will discontinue the patient's Coumadin and start the patient on Eliquis 2.5 mg p.o. b.i.d. Samples given for 5 weeks for the patient when he gets home. I will schedule the patient to see Dr. Garcia in [place] for ablation of the atrial flutter focus. This has been discussed with the patient. Note: Medical decision making is of high complexity. Discussed with the attending physician also. Hopefully, we will recheck the patient's EKG in the morning and will send the patient home tomorrow and follow up the patient as an outpatient. Note that the patient had an appointment today in the office with me, but due to the patient being admitted here, the office visit has been rescheduled. Note: Fifty minutes spent on the patient, more than 50% of the time spent on direct patient care. His medications have been reviewed and also medications added. Would also continue the patient on the current dose of Toprol. Note: Medical decision making is of high complexity. Note: I have discussed with Dr. Garcia, who agrees with seeing the patient as an outpatient to set up ablation for the patient. Thanking you. DICTATING PHYSICIAN: LUPILLO BOYCE M.D. [id number] PHY#: [id number] ID: [id number] JOB#: [id number] ACCT: [id number] cc:LUPILLO BOYCE M.D. >
[2018-02-18 06:55] LABS: ABSOLUTE BASOPHILS # (AUTO) 0.1 10^3/uL (0.0-0.2); ABSOLUTE EOSINOPHILS # (AUTO) 0.4 10^3/uL (0.0-0.6); ABSOLUTE LYMPHOCYTES (AUTO) 1.5 10^3/uL (0.5-4.7); ABSOLUTE MONOCYTES (AUTO) 0.7 10^3/uL (0.1-1.4); ABSOLUTE NEUT (AUTO) 3.6 10^3/uL (1.7-8.2); BASOPHILS % (AUTO) 1.1 % (0-2); EOSINOPHILS % (AUTO) 6.1 % (0-6); HEMATOCRIT 35.4 % (37.9-51.0); HEMOGLOBIN 12.2 g/dL (13.5-17.0); LYMPHOCYTES % (AUTO) 23.8 % (13-45); MEAN CORPUSCULAR HEMOGLOBIN 31.5 pg (27.0-33.4); MEAN CORPUSCULAR HGB CONC 34.3 g/dL (32.0-36.0); MEAN CORPUSCULAR VOLUME 92 fl (80-97); MONOCYTES % (AUTO) 11.3 % (3-13); PLATELET COUNT 150 10^3/uL (150-450); RED BLOOD COUNT 3.85 10^6/uL (4.35-5.55); RED CELL DISTRIBUTION WIDTH 15.4 % (11.5-14.0); SEGMENTED NEUTROPHILS % (AUTO) 57.7 % (42-78); TOTAL CELLS COUNTED % (AUTO) 100 %; WHITE BLOOD COUNT 6.2 10^3/uL (4.0-10.5)
[2018-02-18 07:02] LABS: INTERNATIONAL RATION (INR) 1.14; PROTHROMBIN TIME 15.2 SEC (11.4-15.4)
--- NOTE | 2018-02-18 07:06 | EKG REPORT ---
SEVERITY:- ABNORMAL ECG - SINUS RHYTHM, CONVERTED FROM A FLUTTER. PROBABLE LEFT ATRIAL ABNORMALITY BORDERLINE ST ELEVATION, LATERAL LEADS BORDERLINE PROLONGED QT INTERVAL : Confirmed by: Sina Trejo MD 18-Feb-2018 07:06:07
[2018-02-18 07:12] LABS: ALANINE AMINOTRANSFERASE 19 U/L (21-72); ALBUMIN 4.1 g/dL (3.5-5.0); ALKALINE PHOSPHATASE 57 U/L (38-126); ANION GAP 17 (5-19); ASPARTATE AMINO TRANSFERASE 17 U/L (17-59); BILIRUBIN,DIRECT 0.5 mg/dL (0.0-0.4); BILIRUBIN,TOTAL 0.5 mg/dL (0.2-1.3); BLOOD UREA NITROGEN 69 mg/dL (7-20); CALCIUM 8.3 mg/dL (8.4-10.2); CARBON DIOXIDE 28 mmol/L (22-30); CHLORIDE 95 mmol/L (98-107); GLUCOSE 95 mg/dL (75-110); SODIUM 140.2 mmol/L (137-145); TOTAL PROTEIN 7.6 g/dL (6.3-8.2)
--- NOTE | 2018-02-18 12:21 | PDOC PROGRESS REPORT ---
Subjective Progress Note for:: 02/18/18 Subjective:: Patient seen on dialysis, undergoing dialysis without any issues. Patient denies any such chest pain or shortness of breath. All vital signs were stable. 3 to 4 liters will be removed today. According to the patient he is looking to be discharged this afternoon around 5. Reason For Visit: A FLUTTER WITH RVR, ESRD Physical Exam Vital Signs: Temp Pulse Resp BP Pulse Ox 97.6 F 56 L 20 115/63 96 02/18/18 03:48 02/18/18 07:00 02/18/18 03:48 02/18/18 03:48 02/18/18 03:48 Intake & Output 02/17/18 02/18/18 02/19/18 06:59 06:59 06:59 Intake Total 518 1570 Output Total 4000 Balance 518 -2430 Weight 106.6 kg 102.2 kg General appearance: PRESENT: no acute distress, well-developed, well-nourished Mouth exam: PRESENT: moist, neck supple Neck exam: PRESENT: full ROM. ABSENT: JVD Respiratory exam: PRESENT: clear to auscultation dave. ABSENT: accessory muscle use, crackles, rales, rhonchi, wheezes Cardiovascular exam: PRESENT: irregular rhythm, +S1, +S2 GI/Abdominal exam: PRESENT: normal bowel sounds, soft. ABSENT: organomegaly, tenderness Extremities exam: PRESENT: other - -right arm is chronically swollen. ABSENT: pedal edema, +1 edema, +2 edema Musculoskeletal exam: ABSENT: normal inspection Neurological exam: PRESENT: alert, awake, oriented to person, oriented to place , oriented to time, oriented to situation Psychiatric exam: PRESENT: appropriate affect, normal mood Skin exam: PRESENT: dry, intact, warm Results Laboratory Results: 02/18/18 06:34 02/18/18 09:45 02/18/18 02/18/18 02/18/18 06:34 06:34 09:45 WBC 6.2 RBC 3.85 L Hgb 12.2 L Hct 35.4 L MCV 92 MCH 31.5 MCHC 34.3 RDW 15.4 H Plt Count 150 Seg Neutrophils % 57.7 Lymphocytes % 23.8 Monocytes % 11.3 Eosinophils % 6.1 H Basophils % 1.1 Absolute Neutrophils 3.6 Absolute Lymphocytes 1.5 Absolute Monocytes 0.7 Absolute Eosinophils 0.4 Absolute Basophils 0.1 Sodium 140.2 Potassium 6.0 H* 5.6 H Chloride 95 L Carbon Dioxide 28 Anion Gap 17 BUN 69 H Creatinine 13.12 H Est GFR ( Amer) 5 L Est GFR (Non-Af Amer) 4 L Glucose 95 Calcium 8.3 L Total Bilirubin 0.5 AST 17 ALT 19 L Alkaline Phosphatase 57 Total Protein 7.6 Albumin 4.1 02/16/18 02/16/18 02/16/18 20:40 22:07 22:07 Creatine Kinase 158 Cancelled CK-MB (CK-2) Troponin I 0.066 02/16/18 02/17/18 02/17/18 22:07 03:52 03:52 Creatine Kinase 181 H CK-MB (CK-2) 1.56 1.61 Troponin I 0.061 0.055 02/17/18 02/17/18 11:57 11:57 Creatine Kinase 163 CK-MB (CK-2) 1.78 Troponin I 0.057 Assessment & Plan - Diagnosis (1) Atrial flutter Qualifiers: Atrial flutter type: unspecified Qualified Code(s): I48.92 - Unspecified atrial flutter Is this a current diagnosis for this admission?: Yes Plan: Dr. Zhong advised me that he is increasing his amiodarone to twice a day, putting him on eliquis and sending him for evaluation for an ablation. (2) End-stage renal disease on hemodialysis Is this a current diagnosis for this admission?: Yes Plan: Patient currently undergoing dialysis without any issues. Is being supervised to ensure safe and smooth procedure. We will plan to remove between 4-5 L. Orders were discussed with the treating nurse Patricia. Vital signs are stable. Will continue dialysis as outpatient at [facility] (3) Non-compliance Is this a current diagnosis for this admission?: Yes Plan: advised compliance with meds and diet (4) Acute hyperkalemia Plan: will get a pre and post potassium to evaluate for recirculation (5) Hypertension Qualifiers: Hypertension type: essential hypertension Qualified Code(s): I10 - Essential (primary) hypertension Plan: controlled
[2018-02-18] MEDS: APIXABAN 2.5 MG TABLET PO SCH (14:01)
[2018-02-18] MEDS: AMIODARONE HCL 200 MG TABLET PO SCH (14:01)
[2018-02-18] MEDS: METOPROLOL SUCCINATE 25 MG TAB.SR.24H PO SCH (14:01)
--- NOTE | 2018-02-18 16:32 | PDOC DISCHARGE SUMMARY ---
General - Admit/Disc Date/PCP Admission Date/Primary Care Provider: 02/16/18 18:53 СВЕТЛАНА WHEELER MD Discharge Date: 02/18/18 - Discharge Diagnosis (1) Atrial flutter Is this a current diagnosis for this admission?: Yes (2) End-stage renal disease on hemodialysis Is this a current diagnosis for this admission?: Yes (3) Non-compliance Is this a current diagnosis for this admission?: Yes - Additional Information Resuscitation Status: Full Code Prescriptions: Apixaban [Eliquis 2.5 mg Tablet] 2.5 mg PO BID #60 tablet Home Medications: Amiodarone HCl [Pacerone] 200 mg PO DAILY 02/02/18 Metoprolol Succinate [Toprol Xl 25 mg Tab.sr] 25 mg PO DAILY 02/03/18 Acetaminophen [Tylenol 325 mg Tablet] 650 mg PO Q4HP PRN tablet 02/18/18 Apixaban [Eliquis 2.5 mg Tablet] 2.5 mg PO BID #60 tablet 02/18/18 History of Present Illness History of Present Illness: OLINDA OCAMPO is a 57 year old male, He was in dialysis undergoing hemodialysis when he had episode of palpitations, the dialysis session was stopped and he was referred to the emergency room for further evaluation. In the emergency room he was found to have atrial flutter, was treated with Cardizem infusion and he was advised to be hospitalized. Patient follows with cardiology for the management of the atrial flutter presently on amiodarone and also Cardizem, ablation was contemplated as an option of treatment for this patient he apparently was supposed to be on anticoagulant Coumadin but patient is not compliant with the medication. Hospital Course Hospital Course: Patient was admitted for the management of atrial flutter with rapid ventricular response, he was treated with Cardizem infusion, he was seen by Dr. Dumont cardiology, he also have end-stage renal disease on hemodialysis, he was seen by nephrology, he had session of dialysis in the hospital. He also complained of left ear pain, on otoscopy he was found to have cerumen impaction , he will follow outpatient for syringing of his ear Physical Exam Vital Signs: Temp Pulse Resp BP Pulse Ox 97.6 F 67 20 115/63 96 02/18/18 03:48 02/18/18 14:00 02/18/18 03:48 02/18/18 03:48 02/18/18 03:48 Intake & Output 02/17/18 02/18/18 02/19/18 06:59 06:59 06:59 Intake Total 518 1570 Output Total 4000 Balance 518 -2430 Weight 106.6 kg 102.2 kg General appearance: PRESENT: no acute distress Head exam: PRESENT: atraumatic, normocephalic Eye exam: PRESENT: PERRLA Ear exam: PRESENT: normal external ear exam Mouth exam: PRESENT: moist, tongue midline Neck exam: PRESENT: full ROM Respiratory exam: PRESENT: clear to auscultation dave Cardiovascular exam: PRESENT: RRR, +S1, +S2 Vascular exam: PRESENT: normal capillary refill GI/Abdominal exam: PRESENT: normal bowel sounds, soft Rectal exam: PRESENT: deferred Neurological exam: PRESENT: alert, awake, oriented to person, oriented to place , oriented to time, oriented to situation, CN II-XII grossly intact Psychiatric exam: PRESENT: appropriate affect, normal mood Skin exam: PRESENT: dry, intact, warm Results Laboratory Results: 02/18/18 06:34 02/18/18 09:45 02/18/18 02/18/18 02/18/18 06:34 06:34 09:45 WBC 6.2 RBC 3.85 L Hgb 12.2 L Hct 35.4 L MCV 92 MCH 31.5 MCHC 34.3 RDW 15.4 H Plt Count 150 Seg Neutrophils % 57.7 Lymphocytes % 23.8 Monocytes % 11.3 Eosinophils % 6.1 H Basophils % 1.1 Absolute Neutrophils 3.6 Absolute Lymphocytes 1.5 Absolute Monocytes 0.7 Absolute Eosinophils 0.4 Absolute Basophils 0.1 Sodium 140.2 Potassium 6.0 H* 5.6 H Chloride 95 L Carbon Dioxide 28 Anion Gap 17 BUN 69 H Creatinine 13.12 H Est GFR ( Amer) 5 L Est GFR (Non-Af Amer) 4 L Glucose 95 Calcium 8.3 L Total Bilirubin 0.5 AST 17 ALT 19 L Alkaline Phosphatase 57 Total Protein 7.6 Albumin 4.1 02/16/18 02/16/18 02/16/18 20:40 22:07 22:07 Creatine Kinase 158 Cancelled CK-MB (CK-2) Troponin I 0.066 06/07/2602/17/18 02/17/18 22:07 03:52 03:52 Creatine Kinase 181 H CK-MB (CK-2) 1.56 1.61 Troponin I 0.061 0.055 02/17/18 02/17/18 11:57 11:57 Creatine Kinase 163 CK-MB (CK-2) 1.78 Troponin I 0.057 Qualifiers - * PATIENT BEING DISCHARGED WITH ANY OF THE FOLLOWING DIAGNOSIS: No
[2018-02-18 17:49] VITALS: BP 137/87
--- NOTE | 2018-02-18 20:20 | PROGRESS NOTE E ---
Progress Note NAME: OLINDA OCAMPO : 1960 AGE: 57Y DATE: 02/18/2018 ROOM: 334 SUBJECTIVE: The patient remains in sinus bradycardia. There is no ventricular arrhythmia seen. There is no PND or orthopnea. The patient denies any chest pain. The patient will be having dialysis today again. There is no leg edema. There is no PND or orthopnea. The patient has no palpitations. There is no recurrence of atrial fibrillation. There is no ventricular arrhythmia seen. There is no anginal symptoms or chest pain of any kind. OBJECTIVE: GENERAL: On examination, the patient is moderately obese. He is well groomed. He is in no acute distress. VITAL SIGNS: He is afebrile with a temperature of 98 degrees Fahrenheit, pulse is 58 beats per minute, blood pressure 123/65, respirations are 16 per minute, O2 sat is 100% on room air. HEENT: Head is atraumatic, normocephalic. Eyes: Pupils are equal, round, regular, reactive to light and accommodation. Extraocular movements are normal. There is no conjunctival pallor. There is no scleral icterus. ENT is negative. NECK: Supple. There is no JVD. Carotids are equal. There is no bruit. There is no lymphadenopathy. There is no goiter. Trachea central. LUNGS: Clear to auscultation and percussion. HEART: S1 and S2 are heard. There is no S3 gallop. There is no S4 gallop. There is a systolic of the left sternal border on the apex. There is no rub. S1 is of normal intensity. There are no gallops. ABDOMEN: Soft, obese, nontender. There is no hepatosplenomegaly. Bowel sounds are well heard. There are no tender areas or masses. EXTREMITIES: Femorals are deep. Femorals are diminished. There are no femoral bruits. Leg pulses diminished. There is no pedal edema. There is no DVT or cellulitis. There is no cyanosis or clubbing. There is no calf tenderness. CENTRAL NERVOUS SYSTEM: The patient is conscious, awake, alert, oriented x3 with no focal deficit. PSYCHIATRIC: The patient's judgment and insight are intact. His affect is normal. DIAGNOSTIC STUDIES: The patient's EKG shows sinus bradycardia, early repolarization changes. The EKG has been reviewed by myself. LABORATORY DATA: The patient's white count is 6200; hemoglobin is 12.2; hematocrit is 35.4; and the platelet count is 150,000. The patient's sodium is 140.2; the patient's potassium is 6.0, hence, the patient is for dialysis today and subsequent to dialysis, his potassium came down, 5.6; his chloride is 95; CO2 is 28. The patient's BUN is 69, creatinine is 13.12, and his GFR is 5. His liver function tests show a high direct bilirubin of 0.5, a low ALT of 90; rest of liver function tests are normal. His albumin is 4.1, total protein is 7.6. His calcium is low at 8.3. IMPRESSION: 1. PAROXYSMAL ATRIAL FLUTTER, AT PRESENT SINUS RHYTHM. Note that the patient's amiodarone has been increased. The patient is also on a small dose of beta emelina. Would recommend stopping the patient's beta emelina in view of the patient's elevated potassium. Continue patient on Eliquis. The plan is to set up the patient for an outpatient ablation procedure of atrial flutter focus. We will arrange for this once the patient is discharged. 2. HYPERKALEMIA. LEVELS ARE MUCH IMPROVED AFTER DIALYSIS. 3. HYPERTENSION. 4. END STAGE RENAL DISEASE. 5. HISTORY OF HYPERLIPIDEMIA. 6. LEFT HIP ARTHRITIS. 7. THE PATIENT DOES HAVE SYMPTOMS SUGGESTIVE OF SLEEP APNEA. He has not had a sleep study done. RECOMMENDATIONS: As mentioned earlier, will stop the patient's metoprolol. The patient's medications have been reviewed. Will continue the patient on amiodarone at 200 mg p.o. b.i.d. Will also continue Eliquis. Will sign off the case. The patient's cardiac status is stable. He will follow with me in the office. Will make arrangements for him to go to [place] for an ablation procedure. I have given my cell number to the patient to call me if he should have any problems or concerns. TIME SPENT: Thirty-five minutes spent on this patient with more than 50% of the time spent on direct patient care. Medical decision making is of moderate to high complexity. DICTATING PHYSICIAN: LUPILLO BOYCE M.D. [id number] PHY#: [id number] ID: [id number] JOB#: [id number] ACCT: [id number] cc: >
== END 2018-02-18 18:15 | disposition home or self-care (01) | DRG 308 ==
LOC: ER 16:06 → EH 18:53 → 3S 21:37
PROVIDERS: ADMIT Internal Medicine; ATTEND Internal Medicine
PROC: 5A1D70Z Performance of Urinary Filtration, Intermittent, Less than 6 Hours Per Day (ICD-10-PCS; principal; 2018-02-17)
DX: I48.91 Unspecified atrial fibrillation (principal); N18.6 End stage renal disease; I12.0 Hypertensive chronic kidney disease with stage 5 chronic kidney disease or end stage renal disease; H61.22 Impacted cerumen, left ear; Z99.2 Dependence on renal dialysis; Z79.01 Long term (current) use of anticoagulants; I48.0 Paroxysmal atrial fibrillation; E78.5 Hyperlipidemia, unspecified; E66.9 Obesity, unspecified; Z68.35 Body mass index [BMI] 35.0-35.9, adult; M13.852 Other specified arthritis, left hip; D63.1 Anemia in chronic kidney disease; E87.5 Hyperkalemia; F17.200 Nicotine dependence, unspecified, uncomplicated; Z88.8 Allergy status to other drugs, medicaments and biological substances; Z91.14 Patient's other noncompliance with medication regimen; Z82.49 Family history of ischemic heart disease and other diseases of the circulatory system; Z95.9 Presence of cardiac and vascular implant and graft, unspecified; Z86.718 Personal history of other venous thrombosis and embolism; Z59.9 Problem related to housing and economic circumstances, unspecified
CPT/HCPCS: 36415; 80048; 80053; 80061; 80076; 82140; 82150; 82550; 82553; 83036; 83690; 84132; 84439; 84443; 84484; 85025; 85610; 93005; 93010; 96374; 96375; 99291; J3490

== ENCOUNTER 2018-03-11 08:12 | Emergency (ER) | payer OTHER, MEDICARE ==
--- NOTE | 2018-03-11 08:30 | ER Document Report ---
ED General - General Chief Complaint: Other Stated Complaint: HEART RATE ISSUES Time Seen by Provider: 03/11/18 08:25 Mode of Arrival: Medic Information source: Patient Notes: 57-year-old male brought to emergency department by EMS from dialysis. Patient was at dialysis when they noticed that his heart rate was elevated. Patient does have a history of atrial fibrillation. Patient states that he was running late this morning and forgot to take his morning medications. He denies any chest pain or shortness of breath. TRAVEL OUTSIDE OF THE [place] IN LAST 30 DAYS: No - HPI Onset: Just prior to arrival Onset/Duration: Sudden Quality of pain: No pain Severity: None Pain Level: Denies Associated symptoms: None Exacerbated by: Denies Relieved by: Denies Similar symptoms previously: Yes - Related Data Allergies/Adverse Reactions: DRY GAMBRO DIALYZERS Allergy (Unknown, Uncoded 03/11/18 08:24) "BP drop, vomiting" PAPER TAPE Allergy (Uncoded 03/11/18 08:24) Rash Past Medical History - General Information source: Patient - Social History Smoking Status: Unknown if Ever Smoked Frequency of alcohol use: None Drug Abuse: None Family History: Reviewed & Not Pertinent, Hypertension Patient has suicidal ideation: No Patient has homicidal ideation: No - Past Medical History Cardiac Medical History: Reports: Hx DVT, Hx Hypercholesterolemia, Hx Hypertension Denies: Hx Coronary Artery Disease, Hx Heart Attack Pulmonary Medical History: Reports: Hx Asthma Denies: Hx Bronchitis, Hx COPD, Hx Pneumonia Neurological Medical History: Denies: Hx Cerebrovascular Accident, Hx Seizures Renal/ Medical History: Reports: Hx End Stage Renal Disease, Hx Hemodialysis. Denies: Hx Peritoneal Dialysis Musculoskeltal Medical History: Reports Hx Arthritis - "DAMAGED NERVE TO RIGHT LEG" Psychiatric Medical History: Denies: Hx Depression Past Surgical History: Reports: Hx Neurologic Surgery - Benign brain tumor removed 2010, Hx Vascular Surgery - Right upper arm AV fistula, right and left PermCaths - Immunizations Hx Diphtheria, Pertussis, Tetanus Vaccination: Yes Hx Pneumococcal Vaccination: 02/07/16 Review of Systems - Review of Systems Constitutional: No symptoms reported EENT: No symptoms reported Cardiovascular: No symptoms reported Respiratory: No symptoms reported Gastrointestinal: No symptoms reported Genitourinary: No symptoms reported Male Genitourinary: No symptoms reported Skin: No symptoms reported Hematologic/Lymphatic: No symptoms reported Neurological/Psychological: No symptoms reported -: Yes All other systems reviewed and negative Physical Exam - Vital signs Vitals: Temp Resp BP Pulse Ox 97.6 F 18 154/84 H 95 03/11/18 08:19 03/11/18 08:19 03/11/18 08:19 03/11/18 08:19 - Notes Notes: PHYSICAL EXAMINATION: GENERAL: Well-appearing, well-nourished and in no acute distress. HEAD: Atraumatic, normocephalic. EYES: Pupils equal round and reactive to light, extraocular movements intact, sclera anicteric, conjunctiva are normal. ENT: Nares patent, oropharynx clear without exudates. Moist mucous membranes. NECK: Normal range of motion, supple without lymphadenopathy LUNGS: Breath sounds clear to auscultation bilaterally and equal. No wheezes rales or rhonchi. HEART: Irregularly irregular rhythm. ABDOMEN: Soft, nontender, nondistended abdomen. No guarding, no rebound. No masses appreciated. Musculoskeletal: Normal range of motion, no pitting or edema. No cyanosis. NEUROLOGICAL: Cranial nerves grossly intact. Normal speech, normal gait. Normal sensory, motor exams PSYCH: Normal mood, normal affect. SKIN: Warm, Dry, normal turgor, no rashes or lesions noted. Course - Re-evaluation Re-evalutation: 03/11/18 08:29 Patient currently is in a sinus rhythm with a rate in the 70s/80s. Patient is asymptomatic. Will obtain CBC and CMP to evaluate for hyperkalemia. 03/11/18 09:40 Patient's potassium is 5.9. No EKG changes. 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 Benson. He wants the patient to get dialysis today. Transport to [facility] arranged. Patient's vitals stable. Patient is asymptomatic. - Vital Signs Vital signs: Temp Pulse Resp BP Pulse Ox 97.6 F 20 154/84 H 95 03/11/18 08:19 03/11/18 08:19 03/11/18 08:19 03/11/18 08:19 - Laboratory Result Diagrams: 03/11/18 08:25 03/11/18 08:25 Laboratory results interpreted by me: 03/11/18 03/11/18 08:25 08:25 RBC 3.84 L Hgb 12.5 L Hct 35.9 L RDW 15.6 H Potassium 5.9 H Chloride 96 L BUN 76 H Creatinine 15.71 H Est GFR ( Amer) 4 L Est GFR (Non-Af Amer) 3 L ALT 18 L - EKG Interpretation by Me Additional EKG results interpreted by me: 03/11/18 08:29 EKG: Ventricular rate 84, CT interval 152, QRS duration 86, QTc 459, sinus rhythm, bigeminy Discharge - Discharge Clinical Impression: Hyperkalemia Atrial fibrillation Qualifiers: Atrial fibrillation type: chronic Qualified Code(s): I48.2 - Chronic atrial fibrillation Chronic renal failure Qualifiers: Chronic kidney disease stage: unspecified stage Qualified Code(s): N18.9 - Chronic kidney disease, unspecified Condition: Stable Disposition: HOME, SELF-CARE Instructions: Kidney Failure ([facility]), Atrial Fibrillation ([facility]) Referrals: СВЕТЛАНА WHEELER MD [Primary Care Provider] - Follow up as needed
[2018-03-11 08:34] LABS: ABSOLUTE EOSINOPHILS # (AUTO) 0.3 10^3/uL (0.0-0.6); ABSOLUTE LYMPHOCYTES (AUTO) 1.9 10^3/uL (0.5-4.7); ABSOLUTE MONOCYTES (AUTO) 0.6 10^3/uL (0.1-1.4); ABSOLUTE NEUT (AUTO) 3.8 10^3/uL (1.7-8.2); BASOPHILS % (AUTO) 0.3 % (0-2); EOSINOPHILS % (AUTO) 4.7 % (0-6); HEMATOCRIT 35.9 % (37.9-51.0); HEMOGLOBIN 12.5 g/dL (13.5-17.0); LYMPHOCYTES % (AUTO) 28.4 % (13-45); MEAN CORPUSCULAR HEMOGLOBIN 32.4 pg (27.0-33.4); MEAN CORPUSCULAR HGB CONC 34.8 g/dL (32.0-36.0); MEAN CORPUSCULAR VOLUME 93 fl (80-97); PLATELET COUNT 172 10^3/uL (150-450); RED BLOOD COUNT 3.84 10^6/uL (4.35-5.55); RED CELL DISTRIBUTION WIDTH 15.6 % (11.5-14.0); SEGMENTED NEUTROPHILS % (AUTO) 57.6 % (42-78); TOTAL CELLS COUNTED % (AUTO) 100 %; WHITE BLOOD COUNT 6.6 10^3/uL (4.0-10.5)
[2018-03-11 08:48] LABS: ALANINE AMINOTRANSFERASE 18 U/L (21-72); ALBUMIN 4.2 g/dL (3.5-5.0); ALKALINE PHOSPHATASE 88 U/L (38-126); ANION GAP 19 (5-19); ASPARTATE AMINO TRANSFERASE 21 U/L (17-59); BILIRUBIN,DIRECT 0.4 mg/dL (0.0-0.4); BILIRUBIN,TOTAL 0.4 mg/dL (0.2-1.3); BLOOD UREA NITROGEN 76 mg/dL (7-20); CALCIUM 8.7 mg/dL (8.4-10.2); CARBON DIOXIDE 27 mmol/L (22-30); CHLORIDE 96 mmol/L (98-107); GLUCOSE 94 mg/dL (75-110); SODIUM 141.5 mmol/L (137-145)
--- NOTE | 2018-03-11 09:01 | EKG REPORT ---
SEVERITY:- ABNORMAL ECG - SINUS RHYTHM SUPRAVENTRICULAR BIGEMINY PROBABLE LEFT ATRIAL ABNORMALITY BORDERLINE T WAVE ABNORMALITIES : Confirmed by: Sina Trejo MD 11-Mar-2018 09:01:11
[2018-03-11 09:02] LABS: POTASSIUM 5.9 mmol/L (3.6-5.0)
[2018-03-11 10:11] VITALS: BP 154/76
== END 2018-03-11 10:00 | disposition home or self-care (01) ==
LOC: ER 08:12
DX: I48.2 Chronic atrial fibrillation (principal); I12.0 Hypertensive chronic kidney disease with stage 5 chronic kidney disease or end stage renal disease; N18.6 End stage renal disease; Z99.2 Dependence on renal dialysis; E87.5 Hyperkalemia; J45.909 Unspecified asthma, uncomplicated
CPT/HCPCS: 36415; 80053; 85025; 93005; 93010; 99285

== ENCOUNTER 2018-04-14 06:01 | Day surgery (SDC) | payer MEDICARE ==
[2018-04-14 06:34] LABS: HEMATOCRIT 32.8 % (37.9-51.0); HEMOGLOBIN 11.1 g/dL (13.5-17.0); MEAN CORPUSCULAR HGB CONC 33.9 g/dL (32.0-36.0); MEAN CORPUSCULAR VOLUME 95 fl (80-97); PLATELET COUNT 187 10^3/uL (150-450); RED BLOOD COUNT 3.47 10^6/uL (4.35-5.55); RED CELL DISTRIBUTION WIDTH 17.2 % (11.5-14.0)
[2018-04-14 06:58] LABS: ANION GAP 16 (5-19); BLOOD UREA NITROGEN 54 mg/dL (7-20); CALCIUM 8.5 mg/dL (8.4-10.2); CARBON DIOXIDE 27 mmol/L (22-30); CHLORIDE 99 mmol/L (98-107); GLUCOSE 92 mg/dL (75-110); POTASSIUM 5.3 mmol/L (3.6-5.0); SODIUM 141.9 mmol/L (137-145)
[2018-04-14] MEDS ORDERED: LIDOCAINE 0.5% INJ-PF (5 MG/ML) 50 ML SDV ONE ×2 (07:23→14:02)
[2018-04-14] MEDS ORDERED: BACITRACIN INJ 50,000 UNIT VIAL ONE ×2 (07:23→14:02)
[2018-04-14] MEDS ORDERED: MIDAZOLAM 2 MG/2 ML INJ ONE ×2 (07:40→12:42)
[2018-04-14] MEDS ORDERED: HEPARIN SOD (PORCINE) 5,000 UNIT/ML 1 ML SYRINGE ONE (07:41)
[2018-04-14] MEDS ORDERED: FENTANYL CITRATE INJ/PF 100 MCG/2 ML AMPUL ONE ×2 (07:41→12:41)
[2018-04-14] MEDS ORDERED: CEFAZOLIN INJ 1 GM VIAL ONE (07:58)
[2018-04-14] MEDS ORDERED: VANCOMYCIN HCL 500 MG in DEXTROSE 5%-WATER 100 ML IV ONE (09:30)
[2018-04-14] MEDS ORDERED: VANCOMYCIN HCL 500 MG in NORMAL SALINE 100 ML IV ONE (09:30)
[2018-04-14] MEDS ORDERED: DEXTROSE 50%-WATER 25 GM/50 ML DISP.SYRIN IV ONE ×4 (11:50→15:49)
[2018-04-14] MEDS ORDERED: INSULIN REG, HUMAN 100 UNIT/ML 3 ML VIAL (PYX) ONE (11:50)
[2018-04-14] MEDS ORDERED: PROPOFOL INJ 200 MG/20 ML VIAL IV ONE (12:42)
[2018-04-14] MEDS ORDERED: BUPIVACAINE HCL 0.25 % INJ/PF (2.5 MG/1 ML) 30 ML VIAL ONE (14:02)
[2018-04-14] MEDS ORDERED: PROMETHAZINE HCL INJ 25 MG/1 ML VIAL IV PRN ×2 (14:50)
[2018-04-14] MEDS ORDERED: FENTANYL CITRATE INJ/PF 100 MCG/2 ML AMPUL IV PRN ×3 (14:50)
[2018-04-14] MEDS ORDERED: DIPHENHYDRAMINE HCL 50 MG/ML VIAL IV PRN (14:50)
--- NOTE | 2018-04-14 15:38 | Discharge Summary ---
Discharge Summary (SDC) - Discharge Final Diagnosis: #1 malfunctioning AV fistula, right arm transposed basilic. 2. End-stage renal disease on hemodialysis. 3. Obesity. 4. Hypertension. Date of Surgery: 04/14/18 Discharge Date: 04/14/18 Condition: Good Treatment or Instructions: Discharge home [after recovery per ASU criteria]. Diet , [renal],as tolerated, when fully awake advance as tolerated. Activities within moderation encouraged. Follow up in my office by appointment in about [1 week]. Call for appointment. Leave wounds [covered], [keep clean and dry, until office visit in 1 week]. Hold of on school/work [until evaluation in office].\ Meds per med rec. Percocet. May shower [in 48 hrs], [try to keep operated area as dry as possible]. Prescriptions: Oxycodone HCl/Acetaminophen [Percocet 5-325 mg Tablet] 1 tab PO ASDIR PRN #15 tab PRN Reason: Referrals: СВЕТЛАНА WHEELER MD [Primary Care Provider] - Discharge Diet: Other (Comments) - Renal. Respiratory Treatments at Home: Deep Breathing/Coughing Discharge Activity: Activity As Tolerated Report the Following to Your Physician Immediately: Shortness of Breath, Unusual Bleeding
--- NOTE | 2018-04-14 15:44 | Operative Report ---
Operative Report DATE OF SURGERY: 04/14/18 PREOPERATIVE DIAGNOSIS: #1 malfunctioning AV fistula, right arm transposed basilic. 2. End-stage renal disease on hemodialysis. 3. Obesity. 4. Hypertension. POSTOPERATIVE DIAGNOSIS: #1 malfunctioning AV fistula, right arm transposed basilic. 2. End-stage renal disease on hemodialysis. 3. Obesity. 4. Hypertension. OPERATION: 1. Ultrasound evaluation of the left internal jugular vein and real- time access. 2. PermCath insertion via real time access in the left internal jugular vein. 3. Angiogram and interpretation. SURGEON: CORNELIO YEH TERRAZZO WORKER APPRENTICE: None. ANESTHESIA: LMAC TISSUE REMOVED OR ALTERED: Not applicable. COMPLICATIONS: None. ESTIMATED BLOOD LOSS: 5 mL. INTRAOPERATIVE FINDINGS: Of a small probably remnant of the otherwise occluded and fibrotic left internal jugular vein. Satisfactory for access with some difficulty. Satisfactory placement of permacatheter with the tip well down in the right atrial pool. Particularly efficacious use of a stiff Glidewire to transit the innominate superior vena cava junction. Easy egress of blood and ingress of heparinized solution through both ports. Contrast study shows a relatively large right atrium with smooth flow of contrast through the right atrium, ventricle and pulmonary outflow tract. PROCEDURE: After obtaining informed consent, the patient was taken to the operating room and positioned supine. The [left neck] and chest were prepared with chlorhexidine and draped out with sterile linen. After the " universal timeout ", in which it was verified that the patient continued to receive antibiotic, the procedure commenced. A steriley sheathed ultrasound probe was used to evaluate the [left internal jugular] vein. Local anesthesia was infiltrated adjacent to the probe. Access into the [right internal jugular] vein was obtained using a micropuncture needle, followed by micropuncture wire and then a micropuncture catheter. This was followed by introduction of a 0.035 guidewire the tip of which was placed down into the inferior vena cava. It proved difficult to transit and therefore a micropuncture catheter was used to switch to a 0.035 stiff Glidewire.. A 28 cm long [split catheter] was now positioned over the chest and an exit site marked and locally anesthetized ,the catheter was placed between the 2 incisions. Proximally, the catheter was now positioned using a peel-away sheath, after dilation. Easy ingress of heparinized solution and egress of blood obtained through both ports. A completion angiogram was done by injecting contrast. The findings were as dictated. The neck incision was now closed using interrupted 3-0 PDS to the subcutaneous tissues, the catheter was anchored at the exit site using 3-0 PDS. A Biopatch device was now placed adjacent to the catheter. Dressings were applied and the procedure concluded. Exposure time: [1.3 minutes]. Exposure: 28.7 Sammie bower. Contrast amount: [20 mL] of [id number] low osmolality. Copies of the dictated operative report for Dr. Cornelio Topete MD.concluded. Copies of the dictated operative report for Dr. Cornelio Topete MD.
--- NOTE | 2018-04-14 17:27 | RADIOLOGY REPORT (SQ) ---
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 FLUOROSCOPY TIME: 1.3 minutes. 5 images saved to PACS. TECHNIQUE: Intra-operative images acquired during surgical procedure to evaluate progress. NUMBER OF IMAGES: 5 images. LIMITATIONS: None. FINDINGS: Images of the chest acquired during catheter placement. IMPRESSION: IMAGE(S) OBTAINED DURING PROCEDURE. COMMENT: Quality ID 145: Final reports for procedures using fluoroscopy that document radiation exp osure indices, or exposure time and number of fluorographic images (if radiation exposure indices are not available) Please consult full operative report of the attending physician for description of the procedure. TECHNICAL DOCUMENTATION: JOB ID: [id number] [employer]- All Rights Reserved Reading location - IP/workstation name: [email or web address]
--- NOTE | 2018-04-14 17:27 | RADIOLOGY REPORT (SQ) ---
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 FLUOROSCOPY TIME: 1.3 minutes. 5 images saved to PACS. TECHNIQUE: Intra-operative images acquired during surgical procedure to evaluate progress. NUMBER OF IMAGES: 5 images. LIMITATIONS: None. FINDINGS: Images of the chest acquired during catheter placement. IMPRESSION: IMAGE(S) OBTAINED DURING PROCEDURE. COMMENT: Quality ID 145: Final reports for procedures using fluoroscopy that document radiation exp osure indices, or exposure time and number of fluorographic images (if radiation exposure indices are not available) Please consult full operative report of the attending physician for description of the procedure. TECHNICAL DOCUMENTATION: JOB ID: [id number] [employer]- All Rights Reserved Reading location - IP/workstation name: [email or web address]
[2018-04-14 17:41] VITALS: BP 160/89
== END 2018-04-14 17:20 | disposition home or self-care (01) ==
LOC: CCL 06:01 → OROUT 17:20
PROVIDERS: ATTEND Surgery
DX: T82.858A Stenosis of other vascular prosthetic devices, implants and grafts, initial encounter (principal); Y83.2 Surgical operation with anastomosis, bypass or graft as the cause of abnormal reaction of the patient, or of later complication, without mention of misadventure at the time of the procedure; I12.0 Hypertensive chronic kidney disease with stage 5 chronic kidney disease or end stage renal disease; N18.6 End stage renal disease; Z99.2 Dependence on renal dialysis; F17.210 Nicotine dependence, cigarettes, uncomplicated; E66.9 Obesity, unspecified; I89.0 Lymphedema, not elsewhere classified; I49.9 Cardiac arrhythmia, unspecified; Z86.14 Personal history of Methicillin resistant Staphylococcus aureus infection; Z86.718 Personal history of other venous thrombosis and embolism; Z79.899 Other long term (current) drug therapy; Z68.37 Body mass index [BMI] 37.0-37.9, adult
CPT/HCPCS: 36415; 82962; 84132; 85027; 80048; 77001; 36558; C1769; C1752; Q9967; J2250; J3490 ×3; J0690; J3010; A9270; J3370; J2704; J1644; 532; J1815

== ENCOUNTER 2018-05-19 00:36 | Emergency (ER) | payer SELFPAY ==
--- NOTE | 2018-05-19 01:42 | RADIOLOGY REPORT (SQ) ---
XR CHEST 2 VIEWS HISTORY: Shortness of Breath. COMPARISON: 01/25/2018 FINDINGS/IMPRESSION: Interval placement of left IJ line with the tip at the cavoatrial junction. Normal cardiomediastinal contours. Lungs are clear. No pleural effusion or pneumothorax is seen. No acute osseous findings.
== END 2018-05-19 02:23 | disposition left against medical advice (07) ==
LOC: ER 00:36
DX: Z53.21 Procedure and treatment not carried out due to patient leaving prior to being seen by health care provider (principal)
CPT/HCPCS: 71046

== ENCOUNTER 2018-05-23 09:08 | Emergency (ER) | payer MEDICARE ==
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
[2018-05-23] MEDS ORDERED: SODIUM POLYSTYRENE SULFONATE 15 GM/60 ML PO ONE (10:10)
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
[2018-05-23 10:14] LABS: ABSOLUTE EOSINOPHILS # (AUTO) 0.3 10^3/uL (0.0-0.6); ABSOLUTE LYMPHOCYTES (AUTO) 1.2 10^3/uL (0.5-4.7); ABSOLUTE MONOCYTES (AUTO) 0.4 10^3/uL (0.1-1.4); ABSOLUTE NEUT (AUTO) 2.6 10^3/uL (1.7-8.2); BASOPHILS % (AUTO) 0.6 % (0-2); EOSINOPHILS % (AUTO) 5.7 % (0-6); HEMATOCRIT 34.2 % (37.9-51.0); HEMOGLOBIN 11.4 g/dL (13.5-17.0); LYMPHOCYTES % (AUTO) 26.8 % (13-45); MEAN CORPUSCULAR HEMOGLOBIN 31.4 pg (27.0-33.4); MEAN CORPUSCULAR HGB CONC 33.3 g/dL (32.0-36.0); MEAN CORPUSCULAR VOLUME 94 fl (80-97); MONOCYTES % (AUTO) 8.7 % (3-13); PLATELET COUNT 150 10^3/uL (150-450); RED BLOOD COUNT 3.63 10^6/uL (4.35-5.55); RED CELL DISTRIBUTION WIDTH 16.8 % (11.5-14.0); SEGMENTED NEUTROPHILS % (AUTO) 58.2 % (42-78); TOTAL CELLS COUNTED % (AUTO) 100 %; WHITE BLOOD COUNT 4.4 10^3/uL (4.0-10.5)
--- NOTE | 2018-05-23 10:28 | RADIOLOGY REPORT (SQ) ---
EXAM DESCRIPTION: CHEST SINGLE VIEW COMPLETED DATE/TIME: 05/23/2018 10:14 am REASON FOR STUDY: SOB COMPARISON: Chest films 05/19/2018, 01/25/2018 EXAM PARAMETERS: NUMBER OF VIEWS: One view. TECHNIQUE: Single frontal radiographic view of the chest acquired. RADIATION DOSE: NA LIMITATIONS: None. FINDINGS: LUNGS AND PLEURA: No opacities, masses or pneumothorax. No pleural effusion. MEDIASTINUM AND HILAR STRUCTURES: No masses. Contour normal. HEART AND VASCULAR STRUCTURES: Stable moderate cardiomegaly BONES: No acute findings. HARDWARE: Left-sided central venous dialysis catheter tip in the right atrium OTHER: No other significant finding. IMPRESSION: No acute infiltrates. TECHNICAL DOCUMENTATION: JOB ID: [id number] [employer]- All Rights Reserved Reading location - IP/workstation name: [email or web address]
[2018-05-23 10:33] LABS: ALANINE AMINOTRANSFERASE 16 U/L (21-72); ALBUMIN 4.5 g/dL (3.5-5.0); ALKALINE PHOSPHATASE 45 U/L (38-126); ANION GAP 19 (5-19); ASPARTATE AMINO TRANSFERASE 17 U/L (17-59); BILIRUBIN,DIRECT 0.7 mg/dL (0.0-0.4); BILIRUBIN,TOTAL 0.7 mg/dL (0.2-1.3); BLOOD UREA NITROGEN 91 mg/dL (7-20); CARBON DIOXIDE 23 mmol/L (22-30); CHLORIDE 96 mmol/L (98-107); GLUCOSE 72 mg/dL (75-110); SODIUM 137.7 mmol/L (137-145); TOTAL PROTEIN 8.2 g/dL (6.3-8.2)
[2018-05-23 10:42] LABS: POTASSIUM 7.8 mmol/L (3.6-5.0)
[2018-05-23 10:49] LABS: TROPONIN I 0.064 ng/mL
[2018-05-23] MEDS ORDERED: DEXTROSE 50%-WATER 25 GM/50 ML DISP.SYRIN IV ONE ×4 (10:53→15:03)
[2018-05-23] MEDS ORDERED: INSULIN REG, HUMAN 100 UNIT/ML 3 ML VIAL (PYX) IV ONE (10:53)
[2018-05-23] MEDS ORDERED: CALCIUM GLUCONATE 1000 MG/10 ML INJ IV ONE (10:53)
[2018-05-23] MEDS ORDERED: FUROSEMIDE INJ/PF 40 MG/4 ML SDV IV ONE (11:55)
[2018-05-23] MEDS ORDERED: METOPROLOL TARTRATE PF/INJ 5 MG/5 ML SDV IV ONE ×3 (12:55→15:37)
[2018-05-23] MEDS ORDERED: METOPROLOL TARTRATE 25 MG TABLET PO ONE (14:04)
[2018-05-23] MEDS ORDERED: AMIODARONE HCL 200 MG TABLET PO ONE (14:04)
[2018-05-23] MEDS ORDERED: APIXABAN 2.5 MG TABLET PO ONE (14:05)
[2018-05-23] MEDS ORDERED: LISINOPRIL 10 MG TABLET PO ONE (14:05)
[2018-05-23] MEDS ORDERED: CLONIDINE HCL 0.1 MG TABLET PO ONE (14:05)
[2018-05-23 14:09] LABS: APPEARANCE,URINE CLEAR; COLOR,URINE LIGHT YELLOW; GLUCOSE, URINE 150 mg/dL (NEGATIVE)
[2018-05-23 14:10] LABS: BILIRUBIN,URINE NEGATIVE (NEGATIVE)
[2018-05-23 14:11] LABS: KETONES,URINE NEGATIVE (NEGATIVE); NITRITE,URINE NEGATIVE (NEGATIVE); PROTEIN,URINE 100 mg/dL (NEGATIVE); URINE SPECIFIC GRAVITY 1.012; UROBILINOGEN,URINE NEGATIVE mg/dL (<2.0)
[2018-05-23 14:12] LABS: LEUKOCYTE ESTERASE,URINE NEGATIVE (NEGATIVE)
[2018-05-23] MEDS ORDERED: METOPROLOL TARTRATE 50 MG TABLET PO ONE (15:37)
[2018-05-23 18:23] VITALS: BP 140/80
--- NOTE | 2018-05-23 21:11 | EKG REPORT ---
SEVERITY:- ABNORMAL ECG - A-FLUTTER W/ PREDOM 2:1 AV BLOCK, A-RATE 306 NONSPECIFIC T ABNORMALITIES, LATERAL LEADS PROLONGED QT INTERVAL : Confirmed by: Ana Hagan 23-May-2018 21:11:19
--- NOTE | 2018-05-23 21:11 | EKG REPORT ---
SEVERITY:- ABNORMAL ECG - SINUS RHYTHM FREQUENT SUPRAVENTRICULAR ECTOPICS : Confirmed by: Ana Hagan 23-May-2018 21:11:00
--- NOTE | 2018-05-23 21:12 | EKG REPORT ---
SEVERITY:- BORDERLINE ECG - SINUS RHYTHM PROBABLE LEFT ATRIAL ABNORMALITY : Confirmed by: Ana Hagan 23-May-2018 21:11:29
== END 2018-05-23 18:23 | disposition home or self-care (01) ==
LOC: ER 09:08
DX: I12.0 Hypertensive chronic kidney disease with stage 5 chronic kidney disease or end stage renal disease (principal); N18.6 End stage renal disease; R06.02 Shortness of breath; Z99.2 Dependence on renal dialysis; J45.909 Unspecified asthma, uncomplicated; X37.0XXA Hurricane, initial encounter
CPT/HCPCS: 93005; 96376; 99285; 96374; 96375; 36415; 82962; 84132; 85025; 80053; 81001; 84484; 83880; 71045; 93010; A9270 ×7; J0610; J3490 ×2; J1940; J1815

== ENCOUNTER 2018-05-23 21:11 | Emergency (ER) | payer MEDICARE ==
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
--- NOTE | 2018-05-23 23:58 | RADIOLOGY REPORT (SQ) ---
EXAM DESCRIPTION: CHEST SINGLE VIEW COMPLETED DATE/TIME: 05/23/2018 10:45 pm REASON FOR STUDY: sob COMPARISON: CT angio chest 02/02/2018 Chest films 05/19/2018, 05/23/2018 EXAM PARAMETERS: NUMBER OF VIEWS: One view. TECHNIQUE: Single frontal radiographic view of the chest acquired. RADIATION DOSE: NA LIMITATIONS: None. FINDINGS: LUNGS AND PLEURA: No opacities, masses or pneumothorax. No pleural effusion. MEDIASTINUM AND HILAR STRUCTURES: No masses. Contour normal. HEART AND VASCULAR STRUCTURES: Stable cardiomegaly BONES: No acute findings. HARDWARE: Unchanged left-sided central venous dialysis catheter with the tip in the right atrium OTHER: No other significant finding. IMPRESSION: Stable cardiomegaly. No acute infiltrates TECHNICAL DOCUMENTATION: JOB ID: [id number]- All Rights Reserved Reading location - IP/workstation name: [email or web address]
[2018-05-24 00:22] LABS: ANION GAP 18 (5-19); BLOOD UREA NITROGEN 98 mg/dL (7-20); CALCIUM 8.6 mg/dL (8.4-10.2); CARBON DIOXIDE 24 mmol/L (22-30); CHLORIDE 95 mmol/L (98-107); GLUCOSE 87 mg/dL (75-110); SODIUM 136.5 mmol/L (137-145)
[2018-05-24 00:29] LABS: POTASSIUM 8.6 mmol/L (3.6-5.0)
[2018-05-24] MEDS ORDERED: CALCIUM GLUCONATE 1000 MG/10 ML INJ IV ONE (00:32)
[2018-05-24] MEDS ORDERED: DEXTROSE 50%-WATER 25 GM/50 ML DISP.SYRIN IV ONE ×3 (00:32→05:35)
[2018-05-24] MEDS ORDERED: INSULIN REG, HUMAN 100 UNIT/ML 3 ML VIAL (PYX) IV ONE ×2 (00:32→00:44)
[2018-05-24] MEDS ORDERED: ALBUTEROL SULFATE 0.083% NEB 2.5 MG/3 ML AMPUL NEB ONE (00:33)
[2018-05-24] MEDS ORDERED: SODIUM POLYSTYRENE SULFONATE 15 GM/60 ML PO ONE (00:41)
[2018-05-24] MEDS ORDERED: DEXTROSE 10%-1/4 NORMAL SALINE 250 ML IV ONE ×2 (00:43→05:35)
[2018-05-24 03:23] LABS: BLOOD UREA NITROGEN 96 mg/dL (7-20); CALCIUM 9.1 mg/dL (8.4-10.2); GLUCOSE 86 mg/dL (75-110)
[2018-05-24 03:29] LABS: CARBON DIOXIDE 20 mmol/L (22-30); CHLORIDE 98 mmol/L (98-107); SODIUM 138.7 mmol/L (137-145)
[2018-05-24 03:38] LABS: ANION GAP 21 (5-19); POTASSIUM 7.9 mmol/L (3.6-5.0)
[2018-05-24 06:05] LABS: BLOOD UREA NITROGEN 91 mg/dL (7-20); CALCIUM 9.5 mg/dL (8.4-10.2); GLUCOSE 41 mg/dL (75-110)
[2018-05-24 06:13] LABS: CHLORIDE 98 mmol/L (98-107)
[2018-05-24 06:47] LABS: CARBON DIOXIDE 19 mmol/L (22-30); SODIUM 141.8 mmol/L (137-145)
[2018-05-24 07:11] LABS: ANION GAP 25 (5-19); POTASSIUM 5.2 mmol/L (3.6-5.0)
[2018-05-24] MEDS ORDERED: SODIUM BICARBONATE 8.4% INJ 50 MEQ/50 ML DISP.SYRIN IV ONE (07:19)
[2018-05-24] MEDS ORDERED: DEXTROSE 10% IV ONE (09:29)
[2018-05-24] MEDS ORDERED: 1/4 NORMAL SALINE IV ONE (09:29)
--- NOTE | 2018-05-24 09:29 | EKG REPORT ---
SEVERITY:- BORDERLINE ECG - SINUS RHYTHM PROBABLE LEFT ATRIAL ABNORMALITY : Confirmed by: Ana Hagan 24-May-2018 09:29:08
--- NOTE | 2018-05-24 09:29 | EKG REPORT ---
SEVERITY:- ABNORMAL ECG - SINUS RHYTHM FIRST DEGREE AV BLOCK : Confirmed by: Ana Hagan 24-May-2018 09:29:00
--- NOTE | 2018-05-24 09:29 | EKG REPORT ---
SEVERITY:- ABNORMAL ECG - SINUS TACHYCARDIA NONSPECIFIC REPOLARIZATION ABNORMALITIES BORDERLINE PROLONGED QT INTERVAL : Confirmed by: Ana Hagan 24-May-2018 09:28:53
[2018-05-24] MEDS ORDERED: AMIODARONE HCL 200 MG TABLET PO ONE (10:32)
[2018-05-24] MEDS ORDERED: METOPROLOL TARTRATE PF/INJ 5 MG/5 ML SDV IV ONE (10:33)
[2018-05-24] MEDS ORDERED: METOPROLOL TARTRATE 50 MG TABLET PO ONE (10:33)
[2018-05-24 10:54] LABS: BLOOD UREA NITROGEN 93 mg/dL (7-20); GLUCOSE 110 mg/dL (75-110)
[2018-05-24 11:00] LABS: ANION GAP 18 (5-19); CARBON DIOXIDE 27 mmol/L (22-30); CHLORIDE 93 mmol/L (98-107); SODIUM 138.2 mmol/L (137-145)
[2018-05-24 11:02] LABS: POTASSIUM 6.1 mmol/L (3.6-5.0)
[2018-05-24 11:12] VITALS: BP 126/104
== END 2018-05-24 11:13 | disposition short-term general hospital (02) ==
LOC: ER 21:11
DX: E87.5 Hyperkalemia (principal); I12.0 Hypertensive chronic kidney disease with stage 5 chronic kidney disease or end stage renal disease; N18.6 End stage renal disease; Z99.2 Dependence on renal dialysis; R06.02 Shortness of breath; M62.838 Other muscle spasm; R73.9 Hyperglycemia, unspecified; R06.01 Orthopnea
CPT/HCPCS: 93005 ×2; 99291; 96374; 96375; 36415; 82962; 80048; 71045; 93010 ×2; A9270 ×4; J0610; J3490 ×2; J1815

== ENCOUNTER 2018-06-08 16:43 | Inpatient (IN) | payer MEDICARE ==
[2018-06-08] MEDS ORDERED: DILTIAZEM HCL INJ 25 MG/5 ML VIAL IV ONE (17:21)
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
--- NOTE | 2018-06-08 17:42 | RADIOLOGY REPORT (SQ) ---
EXAM DESCRIPTION: CHEST SINGLE VIEW COMPLETED DATE/TIME: 06/08/2018 5:31 pm REASON FOR STUDY: chest pain COMPARISON: None. EXAM PARAMETERS: NUMBER OF VIEWS: One view. TECHNIQUE: Single frontal radiographic view of the chest acquired. RADIATION DOSE: NA LIMITATIONS: None. FINDINGS: LUNGS AND PLEURA: No acute opacities, masses or pneumothorax. No pleural effusion. MEDIASTINUM AND HILAR STRUCTURES: Stable contour. HEART AND VASCULAR STRUCTURES: Heart normal in size. Normal vasculature. BONES: No acute findings. HARDWARE: Left IJ tunneled central venous catheter is in stable position. OTHER: No other significant finding. IMPRESSION: NO ACUTE RADIOGRAPHIC FINDING IN THE CHEST. TECHNICAL DOCUMENTATION: JOB ID: [id number] 2010 [employer]- All Rights Reserved Reading location - IP/workstation name: [email or web address]
[2018-06-08 18:03] LABS: ABSOLUTE BASOPHILS # (AUTO) 0.1 10^3/uL (0.0-0.2); ABSOLUTE EOSINOPHILS # (AUTO) 0.3 10^3/uL (0.0-0.6); ABSOLUTE LYMPHOCYTES (AUTO) 1.4 10^3/uL (0.5-4.7); ABSOLUTE MONOCYTES (AUTO) 0.5 10^3/uL (0.1-1.4); BASOPHILS % (AUTO) 1.3 % (0-2); EOSINOPHILS % (AUTO) 5.6 % (0-6); HEMOGLOBIN 12.3 g/dL (13.5-17.0); LYMPHOCYTES % (AUTO) 26.4 % (13-45); MEAN CORPUSCULAR HEMOGLOBIN 31.6 pg (27.0-33.4); MEAN CORPUSCULAR HGB CONC 34.2 g/dL (32.0-36.0); MEAN CORPUSCULAR VOLUME 93 fl (80-97); MONOCYTES % (AUTO) 9.7 % (3-13); PLATELET COUNT 156 10^3/uL (150-450); RED BLOOD COUNT 3.89 10^6/uL (4.35-5.55); RED CELL DISTRIBUTION WIDTH 15.5 % (11.5-14.0); TOTAL CELLS COUNTED % (AUTO) 100 %; WHITE BLOOD COUNT 5.2 10^3/uL (4.0-10.5)
[2018-06-08] MEDS: DILTIAZEM HCL/D5W 125 MG/125 ML RTUINJ IV PRN (18:26)
[2018-06-08 18:31] LABS: ALANINE AMINOTRANSFERASE 9 U/L (21-72); ALBUMIN 4.2 g/dL (3.5-5.0); ALKALINE PHOSPHATASE 55 U/L (38-126); ANION GAP 14 (5-19); ASPARTATE AMINO TRANSFERASE 43 U/L (17-59); BILIRUBIN,DIRECT 0.8 mg/dL (0.0-0.4); BILIRUBIN,TOTAL 0.8 mg/dL (0.2-1.3); BLOOD UREA NITROGEN 49 mg/dL (7-20); CALCIUM 8.4 mg/dL (8.4-10.2); CARBON DIOXIDE 28 mmol/L (22-30); CHLORIDE 98 mmol/L (98-107); GLUCOSE 83 mg/dL (75-110); POTASSIUM 5.1 mmol/L (3.6-5.0); SODIUM 139.8 mmol/L (137-145); TOTAL PROTEIN 8.2 g/dL (6.3-8.2)
[2018-06-08 22:11] LABS: TROPONIN I 0.088 ng/mL
[2018-06-08 22:14] LABS: CREATINE KINASE MB 2.39 ng/mL (<4.55)
[2018-06-08 22:14] LABS: LIPASE 351.9 U/L (23-300); PHOSPHORUS 5.5 mg/dL (2.5-4.5)
[2018-06-08] MEDS: AMIODARONE HCL 200 MG TABLET PO SCH (22:43)
[2018-06-08] MEDS: FOLIC ACID/VITAMIN B COMP W-C CAPSULE PO SCH (22:43)
[2018-06-08] MEDS: CALCIUM ACETATE 667 MG CAPSULE PO SCH (22:43)
[2018-06-08] MEDS: METOPROLOL SUCCINATE 25 MG TAB.SR.24H PO SCH (22:44)
[2018-06-08] MEDS: APIXABAN 2.5 MG TABLET PO SCH (22:45)
[2018-06-08] MEDS: CLONIDINE HCL 0.1 MG TABLET PO SCH (22:45)
[2018-06-08] MEDS: SIMVASTATIN 10 MG TABLET PO SCH (22:47)
[2018-06-08] MEDS: LISINOPRIL 10 MG TABLET PO SCH (22:48)
[2018-06-08] MEDS: CETIRIZINE 10 MG TABLET PO SCH (22:50)
--- NOTE | 2018-06-08 22:51 | EKG REPORT ---
SEVERITY:- ABNORMAL ECG - ATRIAL FLUTTER, A-RATE 288 NONSPECIFIC T ABNORMALITIES, LATERAL LEADS : Confirmed by: Ana Hagan 08-Jun-2018 22:51:14
--- NOTE | 2018-06-08 22:52 | EKG REPORT ---
SEVERITY:- ABNORMAL ECG - ATRIAL FLUTTER, A-RATE 294 NONSPECIFIC INTRAVENTRICULAR CONDUCTION DELAY : Confirmed by: Ana Hagan 08-Jun-2018 22:51:50
[2018-06-09 03:37] LABS: ABSOLUTE BASOPHILS # (AUTO) 0.1 10^3/uL (0.0-0.2); ABSOLUTE EOSINOPHILS # (AUTO) 0.3 10^3/uL (0.0-0.6); ABSOLUTE LYMPHOCYTES (AUTO) 1.5 10^3/uL (0.5-4.7); ABSOLUTE MONOCYTES (AUTO) 0.4 10^3/uL (0.1-1.4); ABSOLUTE NEUT (AUTO) 2.6 10^3/uL (1.7-8.2); BASOPHILS % (AUTO) 1.7 % (0-2); EOSINOPHILS % (AUTO) 6.9 % (0-6); HEMATOCRIT 34.8 % (37.9-51.0); HEMOGLOBIN 11.9 g/dL (13.5-17.0); LYMPHOCYTES % (AUTO) 29.6 % (13-45); MEAN CORPUSCULAR HEMOGLOBIN 31.7 pg (27.0-33.4); MEAN CORPUSCULAR HGB CONC 34.2 g/dL (32.0-36.0); MEAN CORPUSCULAR VOLUME 93 fl (80-97); MONOCYTES % (AUTO) 8.9 % (3-13); PLATELET COUNT 128 10^3/uL (150-450); RED BLOOD COUNT 3.75 10^6/uL (4.35-5.55); RED CELL DISTRIBUTION WIDTH 15.9 % (11.5-14.0); SEGMENTED NEUTROPHILS % (AUTO) 52.9 % (42-78); TOTAL CELLS COUNTED % (AUTO) 100 %
[2018-06-09 04:51] LABS: CREATINE KINASE MB 1.97 ng/mL (<4.55)
[2018-06-09] MEDS: DILTIAZEM HCL/D5W 125 MG/125 ML RTUINJ IV PRN (04:52)
[2018-06-09 05:04] LABS: TROPONIN I 0.074 ng/mL
[2018-06-09 05:32] LABS: ALANINE AMINOTRANSFERASE 17 U/L (21-72); ALBUMIN 3.9 g/dL (3.5-5.0); ALKALINE PHOSPHATASE 52 U/L (38-126); ANION GAP 15 (5-19); ASPARTATE AMINO TRANSFERASE 24 U/L (17-59); BILIRUBIN,DIRECT 0.7 mg/dL (0.0-0.4); BILIRUBIN,TOTAL 0.7 mg/dL (0.2-1.3); BLOOD UREA NITROGEN 53 mg/dL (7-20); CALCIUM 8.5 mg/dL (8.4-10.2); CARBON DIOXIDE 25 mmol/L (22-30); CHLORIDE 97 mmol/L (98-107); GLUCOSE 148 mg/dL (75-110); POTASSIUM 4.9 mmol/L (3.6-5.0); SODIUM 136.5 mmol/L (137-145); TOTAL PROTEIN 7.4 g/dL (6.3-8.2)
[2018-06-09] MEDS: CALCIUM ACETATE 667 MG CAPSULE PO SCH ×3 (07:54→17:18)
[2018-06-09] MEDS: METOPROLOL SUCCINATE 25 MG TAB.SR.24H PO SCH (10:18)
[2018-06-09] MEDS: AMIODARONE HCL 200 MG TABLET PO SCH (10:18)
[2018-06-09] MEDS: APIXABAN 2.5 MG TABLET PO SCH ×2 (10:18→17:36)
[2018-06-09] MEDS: FOLIC ACID/VITAMIN B COMP W-C CAPSULE PO SCH (10:19)
[2018-06-09] MEDS: LISINOPRIL 10 MG TABLET PO SCH (10:19)
[2018-06-09] MEDS: CETIRIZINE 10 MG TABLET PO SCH (10:22)
[2018-06-09 10:41] LABS: CREATINE KINASE MB 2.03 ng/mL (<4.55); TROPONIN I 0.066 ng/mL
[2018-06-09] MEDS ORDERED: AMIODARONE HCL 200 MG TABLET PO ONE (13:00)
--- NOTE | 2018-06-09 14:07 | Physician Advisory Note ---
Physician Advisor ProgressNote .: Pursuant to the plan for [facility], I have reviewed the medical record for this patient. Physician Advisor Statement: Status: Aflutter is typically Obs status appropriate until proven otherwise. However, in this case, pt developed hypotension to 90s/60s on 1st PM, after tx.s to better control HR, & then recurrent hypotension this AM. HD, which this pt needs, is not safe to do when pt is hypotensive. Meanwhile, delaying HD while awaiting higher BPs can & will lead to progressively worsening electrolyte abnormalities which predispose to recurrence /persistence of dysrhythmias. Both prototyper & nephrol are consullted in this complex case. Appropriate for Inpt status. Thanks! CK
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
[2018-06-09] MEDS ORDERED: CINACALCET HCL 30 MG TABLET PO SCH (16:00)
[2018-06-09] MEDS ORDERED: LEVOFLOXACIN 250 MG TABLET PO SCH (18:00)
--- NOTE | 2018-06-09 19:37 | EKG REPORT ---
SEVERITY:- BORDERLINE ECG - SINUS RHYTHM PROBABLE LEFT ATRIAL ABNORMALITY : Confirmed by: Ana Hagan 09-Jun-2018 19:37:06
--- NOTE | 2018-06-09 20:11 | PDOC H&P ---
History of Present Illness Admission Date/PCP: 06/08/18 18:17 СВЕТЛАНА WHEELER MD History of Present Illness: OLINDA OCAMPO is a 57 year old male He has end-stage kidney disease on maintenance hemodialysis, typical atrial flutter he was at dialysis when he developed chest pain and palpitation, he was 2 hours into dialysis, he was supposed to have 4 hours of dialysis, he was referred to the emergency room for evaluation the dialysis was stopped prematurely. He has atrial flutter, he was supposed to be on metoprolol and amiodarone the ultimate plan was for him to have ablation of the atrial flutter. In the emergency room he was evaluated he was found to have rapid ventricular response, he was started on Cardizem infusion for rate control, the blood pressure dropped to below 90 systolic. Past Medical History Cardiac Medical History: Reports: DVT, Hyperlipidema, Hypertension, Other - Typical atrial flutter Pulmonary Medical History: Reports: Asthma Renal/ Medical History: Reports: End Stage Renal Disease Musculoskeltal Medical History: Reports: Arthritis - "DAMAGED NERVE TO RIGHT LEG " Past Surgical History Past Surgical History: Reports: Vascular Surgery - Right upper arm AV fistula, right and left PermCaths Social History Smoking Status: Former Smoker Frequency of Alcohol Use: Occasional Hx Recreational Drug Use: No Drugs: None Hx Prescription Drug Abuse: No Family History Family History: Reviewed & Not Pertinent, Hypertension Parental Family History Reviewed: Yes Children Family History Reviewed: Yes Sibling(s) Family History Reviewed.: Yes Medication/Allergy Home Medications: Amiodarone HCl [Pacerone] 200 mg PO DAILY 02/02/18 Metoprolol Succinate [Toprol Xl 25 mg Tab.sr] 25 mg PO DAILY 02/03/18 Apixaban [Eliquis 2.5 mg Tablet] 2.5 mg PO BID #60 tablet 02/18/18 Calcium Acetate 667 mg PO MEALS 04/14/18 Cinacalcet HCl [Sensipar 30 mg Tablet] 30 mg PO ACSUPPER 04/14/18 Clonidine HCl 0.1 mg PO QHS 04/14/18 Simvastatin [Zocor 20 mg Tablet] 20 mg PO QHS 04/14/18 B Complex W-C No.20/Folic Acid [Renal Caps Softgel] 1 cap PO DAILY 06/08/18 Cetirizine HCl [Zyrtec 10 mg Tablet] 10 mg PO DAILY 06/08/18 Levofloxacin [Levaquin 250 mg Tablet] 250 mg PO DAILY 06/08/18 Lisinopril [Prinivil 10 mg Tablet] 10 mg PO DAILY 06/08/18 Calcium Carbonate [Tums Chewable 500 mg Tab.chew] 1,000 mg PO QHS 06/09/18 Allergies/Adverse Reactions: DRY GAMBRO DIALYZERS Allergy (Unknown, Uncoded 06/08/18 17:01) "BP drop, vomiting" PAPER TAPE Allergy (Uncoded 06/08/18 17:01) Rash Review of Systems Constitutional: ABSENT: chills, fever(s), headache(s), weight gain, weight loss Eyes: ABSENT: visual disturbances Ears: ABSENT: hearing changes Cardiovascular: PRESENT: palpitations Respiratory: ABSENT: cough, hemoptysis Gastrointestinal: ABSENT: abdominal pain, constipation, diarrhea, hematemesis, hematochezia, nausea, vomiting Genitourinary: ABSENT: dysuria, hematuria Musculoskeletal: ABSENT: joint swelling Integumentary: ABSENT: rash, wounds Neurological: ABSENT: abnormal gait, abnormal speech, confusion, dizziness, focal weakness, syncope Psychiatric: ABSENT: anxiety, depression, homidical ideation, suicidal ideation Endocrine: ABSENT: cold intolerance, heat intolerance, menstrual abnormalities, polydipsia, polyuria Hematologic/Lymphatic: ABSENT: easy bleeding, easy bruising, lymphadenopathy Physical Exam Vital Signs: Temp Pulse Resp BP Pulse Ox 98.4 F 54 L 18 99/58 L 100 06/09/18 15:28 06/09/18 15:28 06/09/18 15:28 06/09/18 15:28 06/09/18 15:28 Intake & Output 06/08/18 06/09/18 06/10/18 06:59 06:59 06:59 Intake Total 323 1120 Output Total 0 305 Balance 323 815 Weight 103.7 kg General appearance: PRESENT: mild distress Head exam: PRESENT: atraumatic, normocephalic Eye exam: PRESENT: PERRLA Ear exam: PRESENT: normal external ear exam Mouth exam: PRESENT: moist, tongue midline Neck exam: PRESENT: full ROM Respiratory exam: PRESENT: rhonchi Cardiovascular exam: PRESENT: RRR, +S1, +S2 GI/Abdominal exam: PRESENT: soft Rectal exam: PRESENT: deferred Neurological exam: PRESENT: alert, CN II-XII grossly intact Psychiatric exam: PRESENT: appropriate affect Skin exam: PRESENT: dry, intact, warm Results Laboratory Results: 06/09/18 03:27 06/09/18 04:42 06/08/18 06/08/18 06/08/18 21:35 21:35 21:35 WBC RBC Hgb Hct MCV MCH MCHC RDW Plt Count Seg Neutrophils % Lymphocytes % Monocytes % Eosinophils % Basophils % Absolute Neutrophils Absolute Lymphocytes Absolute Monocytes Absolute Eosinophils Absolute Basophils Sodium Potassium Chloride Carbon Dioxide Anion Gap BUN Creatinine Est GFR ( Amer) Est GFR (Non-Af Amer) Glucose Calcium Total Bilirubin AST ALT Alkaline Phosphatase Ammonia < 8.7 L Total Protein Albumin Triglycerides Cholesterol LDL Cholesterol Direct VLDL Cholesterol HDL Cholesterol Amylase 193 H Free T4 1.32 06/09/18 06/09/18 06/09/18 03:27 03:27 04:42 WBC 5.0 RBC 3.75 L Hgb 11.9 L Hct 34.8 L MCV 93 MCH 31.7 MCHC 34.2 RDW 15.9 H Plt Count 128 L Seg Neutrophils % 52.9 Lymphocytes % 29.6 Monocytes % 8.9 Eosinophils % 6.9 H Basophils % 1.7 Absolute Neutrophils 2.6 Absolute Lymphocytes 1.5 Absolute Monocytes 0.4 Absolute Eosinophils 0.3 Absolute Basophils 0.1 Sodium Cancelled 136.5 L Potassium Cancelled 4.9 Chloride Cancelled 97 L Carbon Dioxide Cancelled 25 Anion Gap Cancelled 15 BUN Cancelled 53 H Creatinine Cancelled 13.57 H Est GFR ( Amer) Cancelled 5 L Est GFR (Non-Af Amer) Cancelled 4 L Glucose Cancelled 148 H Calcium Cancelled 8.5 Total Bilirubin Cancelled 0.7 AST Cancelled 24 ALT Cancelled 17 L Alkaline Phosphatase Cancelled 52 Ammonia Total Protein Cancelled 7.4 Albumin Cancelled 3.9 Triglycerides Cancelled Cholesterol Cancelled LDL Cholesterol Direct Cancelled VLDL Cholesterol Cancelled HDL Cholesterol Cancelled Amylase Free T4 06/08/18 06/08/18 06/09/18 21:35 21:35 03:27 Creatine Kinase 377 H CK-MB (CK-2) 2.39 1.97 Troponin I 0.088 0.074 06/09/18 06/09/18 06/09/18 03:27 09:40 09:40 Creatine Kinase Cancelled 258 H CK-MB (CK-2) 2.03 Troponin I 0.066 Impressions: Chest X-Ray 06/08/18 17:20 IMPRESSION: NO ACUTE RADIOGRAPHIC FINDING IN THE CHEST. Assessment & Plan - Diagnosis (1) Atrial flutter with rapid ventricular response Is this a current diagnosis for this admission?: Yes Plan: Continue Cardizem infusion, consultation from cardiology is obtained (2) End-stage renal disease on hemodialysis Is this a current diagnosis for this admission?: Yes (3) Bronchitis Is this a current diagnosis for this admission?: Yes Plan: Continue Levaquin (4) Hypotension Qualifiers: Hypotension type: unspecified hypotension type Qualified Code(s): I95.9 - Hypotension, unspecified Is this a current diagnosis for this admission?: Yes (5) Non-compliance Is this a current diagnosis for this admission?: Yes
[2018-06-09] MEDS: SIMVASTATIN 10 MG TABLET PO SCH (22:28)
[2018-06-09] MEDS: CLONIDINE HCL 0.1 MG TABLET PO SCH (22:28)
[2018-06-10 04:43] LABS: HEMATOCRIT 31.9 % (37.9-51.0); HEMOGLOBIN 10.9 g/dL (13.5-17.0); MEAN CORPUSCULAR HEMOGLOBIN 31.8 pg (27.0-33.4); MEAN CORPUSCULAR HGB CONC 34.1 g/dL (32.0-36.0); MEAN CORPUSCULAR VOLUME 93 fl (80-97); PLATELET COUNT 120 10^3/uL (150-450); RED BLOOD COUNT 3.43 10^6/uL (4.35-5.55); RED CELL DISTRIBUTION WIDTH 15.7 % (11.5-14.0); WHITE BLOOD COUNT 4.7 10^3/uL (4.0-10.5)
[2018-06-10 05:07] LABS: ALANINE AMINOTRANSFERASE 21 U/L (21-72); ALBUMIN 3.8 g/dL (3.5-5.0); ALKALINE PHOSPHATASE 51 U/L (38-126); ANION GAP 14 (5-19); ASPARTATE AMINO TRANSFERASE 27 U/L (17-59); BILIRUBIN,DIRECT 0.6 mg/dL (0.0-0.4); BILIRUBIN,TOTAL 0.6 mg/dL (0.2-1.3); BLOOD UREA NITROGEN 68 mg/dL (7-20); CARBON DIOXIDE 26 mmol/L (22-30); CHLORIDE 96 mmol/L (98-107); GLUCOSE 80 mg/dL (75-110); SODIUM 136.4 mmol/L (137-145); TOTAL PROTEIN 7.1 g/dL (6.3-8.2)
[2018-06-10 05:12] LABS: ABSOLUTE LYMPHOCYTES# (MANUAL) 1.4 10^3/uL (0.5-4.7); ABSOLUTE MONOCYTES # (MANUAL) 0.3 10^3/uL (0.1-1.4); ABSOLUTE NEUTROPHILS# (MANUAL) 2.4 10^3/uL (1.7-8.2); BASOPHILS % (MANUAL) 1 % (0-2); EOSINOPHILS % (MANUAL) 10 % (0-6); LYMPHOCYTES % (MANUAL) 29 % (13-45); MONOCYTES % (MANUAL) 7 % (3-13); SEGMENTED NEUTROPHILS % (MAN) 52 % (42-78); TOTAL CELLS COUNTED 100
[2018-06-10 05:13] LABS: ANISOCYTOSIS 1+; OVALOCYTES SLIGHT; PLATELET COMMENT DECREASED; POIKILOCYTOSIS SLIGHT
[2018-06-10 05:16] LABS: POTASSIUM 5.9 mmol/L (3.6-5.0)
[2018-06-10] MEDS: CALCIUM ACETATE 667 MG CAPSULE PO SCH ×2 (08:17→12:37)
[2018-06-10 10:00] LABS: APPEARANCE,URINE CLOUDY; BILIRUBIN,URINE NEGATIVE (NEGATIVE); COLOR,URINE YELLOW; GLUCOSE, URINE 50 mg/dL (NEGATIVE); KETONES,URINE NEGATIVE (NEGATIVE); LEUKOCYTE ESTERASE,URINE TRACE (NEGATIVE); NITRITE,URINE NEGATIVE (NEGATIVE); PROTEIN,URINE >=500 mg/dL (NEGATIVE); URINE SPECIFIC GRAVITY 1.011; UROBILINOGEN,URINE NEGATIVE mg/dL (<2.0)
[2018-06-10] MEDS: FOLIC ACID/VITAMIN B COMP W-C CAPSULE PO SCH (10:54)
[2018-06-10] MEDS: CETIRIZINE 10 MG TABLET PO SCH (10:54)
[2018-06-10] MEDS: AMIODARONE HCL 200 MG TABLET PO SCH (10:54)
[2018-06-10] MEDS: APIXABAN 2.5 MG TABLET PO SCH (10:54)
[2018-06-10] MEDS: METOPROLOL SUCCINATE 25 MG TAB.SR.24H PO SCH (11:11)
--- NOTE | 2018-06-10 15:27 | PDOC DISCHARGE SUMMARY ---
General - Admit/Disc Date/PCP Admission Date/Primary Care Provider: 06/08/18 18:17 СВЕТЛАНА WHEELER MD Discharge Date: 06/10/18 - Discharge Diagnosis (1) Atrial flutter with rapid ventricular response Is this a current diagnosis for this admission?: Yes (2) End-stage renal disease on hemodialysis Is this a current diagnosis for this admission?: Yes (3) Bronchitis Is this a current diagnosis for this admission?: Yes (4) Hypotension Is this a current diagnosis for this admission?: Yes (5) Non-compliance Is this a current diagnosis for this admission?: Yes - Additional Information Home Medications: Amiodarone HCl [Pacerone] 200 mg PO DAILY 02/02/18 Metoprolol Succinate [Toprol Xl 25 mg Tab.sr] 25 mg PO DAILY 02/03/18 Apixaban [Eliquis 2.5 mg Tablet] 2.5 mg PO BID #60 tablet 02/18/18 Calcium Acetate 667 mg PO MEALS 04/14/18 Cinacalcet HCl [Sensipar 30 mg Tablet] 30 mg PO ACSUPPER 04/14/18 Clonidine HCl 0.1 mg PO QHS 04/14/18 Simvastatin [Zocor 20 mg Tablet] 20 mg PO QHS 04/14/18 B Complex W-C No.20/Folic Acid [Renal Caps Softgel] 1 cap PO DAILY 06/08/18 Cetirizine HCl [Zyrtec 10 mg Tablet] 10 mg PO DAILY 06/08/18 Levofloxacin [Levaquin 250 mg Tablet] 250 mg PO DAILY 06/08/18 Lisinopril [Prinivil 10 mg Tablet] 10 mg PO DAILY 06/08/18 Calcium Carbonate [Tums Chewable 500 mg Tab.chew] 1,000 mg PO QHS 06/09/18 History of Present Illness History of Present Illness: OLINDA OCAMPO is a 57 year old male He has end-stage kidney disease on maintenance hemodialysis, typical atrial flutter he was at dialysis when he developed chest pain and palpitation, he was 2 hours into dialysis, he was supposed to have 4 hours of dialysis, he was referred to the emergency room for evaluation the dialysis was stopped prematurely. He has atrial flutter, he was supposed to be on metoprolol and amiodarone the ultimate plan was for him to have ablation of the atrial flutter. In the emergency room he was evaluated he was found to have rapid ventricular response, he was started on Cardizem infusion for rate control, the blood pressure dropped to below 90 systolic. Hospital Course Hospital Course: Patient was admitted for the management of atrial fibrillation with rapid ventricular response. He was treated with IV Cardizem, amiodarone, he was also seen in consultation by Dr. Dumont, cardiology he has end-stage renal disease, he was seen by nephrology he had hemodialysis session in the hospital.The plan is for patient to have ablation of the atrial flutter Physical Exam Vital Signs: Temp Pulse Resp BP Pulse Ox 97.5 F 70 16 109/96 H 100 06/10/18 15:06 06/10/18 15:06 06/10/18 15:06 06/10/18 15:06 06/10/18 15:06 Intake & Output 06/09/18 06/10/18 06/11/18 06:59 06:59 06:59 Intake Total 323 1120 240 Output Total 0 305 4000 Balance 323 815 -3760 Weight 103.7 kg 107.5 kg General appearance: PRESENT: no acute distress Head exam: PRESENT: atraumatic, normocephalic Eye exam: PRESENT: conjunctiva pink, EOMI, PERRLA Ear exam: PRESENT: normal external ear exam Neck exam: PRESENT: full ROM Respiratory exam: PRESENT: clear to auscultation dave Cardiovascular exam: PRESENT: RRR, +S1, +S2 Pulses: PRESENT: normal dorsalis pedis pul, +2 pedal pulses bilateral Vascular exam: PRESENT: normal capillary refill GI/Abdominal exam: PRESENT: normal bowel sounds, soft Rectal exam: PRESENT: deferred Neurological exam: PRESENT: alert, CN II-XII grossly intact Psychiatric exam: PRESENT: appropriate affect, normal mood Skin exam: PRESENT: dry, intact, warm Results Laboratory Results: 06/10/18 04:23 06/10/18 04:23 06/10/18 06/10/18 06/10/18 04:23 04:23 09:30 WBC 4.7 RBC 3.43 L Hgb 10.9 L Hct 31.9 L MCV 93 MCH 31.8 MCHC 34.1 RDW 15.7 H Plt Count 120 L Seg Neutrophils % Not Reportable Lymphocytes % Not Reportable Monocytes % Not Reportable Eosinophils % Not Reportable Basophils % Not Reportable Absolute Neutrophils Not Reportable Absolute Lymphocytes Not Reportable Absolute Monocytes Not Reportable Absolute Eosinophils Not Reportable Absolute Basophils Not Reportable Sodium 136.4 L Potassium 5.9 H D Chloride 96 L Carbon Dioxide 26 Anion Gap 14 BUN 68 H Creatinine 16.94 H Est GFR ( Amer) 4 L Est GFR (Non-Af Amer) 3 L Glucose 80 Calcium 8.0 L Total Bilirubin 0.6 AST 27 ALT 21 Alkaline Phosphatase 51 Total Protein 7.1 Albumin 3.8 Urine Color YELLOW Urine Appearance CLOUDY Urine pH 8.0 Ur Specific Rumsey 1.011 Urine Protein >=500 H Urine Glucose (UA) 50 H Urine Ketones NEGATIVE Urine Blood SMALL H Urine Nitrite NEGATIVE Ur Leukocyte Esterase TRACE H Urine WBC (Auto) 11 Urine RBC (Auto) 2 06/08/18 06/08/18 06/09/18 21:35 21:35 03:27 Creatine Kinase 377 H CK-MB (CK-2) 2.39 1.97 Troponin I 0.088 0.074 06/09/18 06/09/18 06/09/18 03:27 09:40 09:40 Creatine Kinase Cancelled 258 H CK-MB (CK-2) 2.03 Troponin I 0.066 Impressions: Chest X-Ray 06/08/18 17:20 IMPRESSION: NO ACUTE RADIOGRAPHIC FINDING IN THE CHEST. Qualifiers - * PATIENT BEING DISCHARGED WITH ANY OF THE FOLLOWING DIAGNOSIS: No
[2018-06-10 16:31] VITALS: BP 125/70
--- NOTE | 2018-06-10 23:55 | PDOC PROGRESS REPORT ---
Subjective Progress Note for:: 06/10/18 Reason For Visit: ATRIAL FLUTTER WITH RVR, ESRD ON HEMODIALYSIS was seen today on dialysis. He has been very non compliant with his medications and diet and has resulted in multiple admissions in the past.Currently he has been admitted for rapid A.fib. Patient seen on dialysis which he is undergoing without any issues. He denies any chest pains, dyspnea, fever or chills.Labs and medications were reviewed with patient and treating assistant corporate controller. Physical Exam Vital Signs: Temp Pulse Resp BP Pulse Ox 97.5 F 66 16 106/63 98 06/10/18 07:16 06/10/18 07:16 06/10/18 07:16 06/10/18 07:16 06/10/18 07:16 Intake & Output 06/09/18 06/10/18 06/11/18 06:59 06:59 06:59 Intake Total 323 1120 Output Total 0 305 Balance 323 815 Weight 103.7 kg 107.5 kg General appearance: PRESENT: no acute distress Respiratory exam: PRESENT: clear to auscultation dave. ABSENT: crackles Cardiovascular exam: PRESENT: irregular rhythm, +S1, +S2 GI/Abdominal exam: PRESENT: normal bowel sounds, soft. ABSENT: rebound, tenderness Extremities exam: PRESENT: other - swollen right arm -chronic. Neurological exam: PRESENT: alert, awake, oriented to person, oriented to place , oriented to time Skin exam: PRESENT: rash. ABSENT: mottled Results Laboratory Results: 06/10/18 04:23 06/10/18 04:23 06/10/18 06/10/18 04:23 04:23 WBC 4.7 RBC 3.43 L Hgb 10.9 L Hct 31.9 L MCV 93 MCH 31.8 MCHC 34.1 RDW 15.7 H Plt Count 120 L Seg Neutrophils % Not Reportable Lymphocytes % Not Reportable Monocytes % Not Reportable Eosinophils % Not Reportable Basophils % Not Reportable Absolute Neutrophils Not Reportable Absolute Lymphocytes Not Reportable Absolute Monocytes Not Reportable Absolute Eosinophils Not Reportable Absolute Basophils Not Reportable Sodium 136.4 L Potassium 5.9 H D Chloride 96 L Carbon Dioxide 26 Anion Gap 14 BUN 68 H Creatinine 16.94 H Est GFR ( Amer) 4 L Est GFR (Non-Af Amer) 3 L Glucose 80 Calcium 8.0 L Total Bilirubin 0.6 AST 27 ALT 21 Alkaline Phosphatase 51 Total Protein 7.1 Albumin 3.8 06/08/18 06/08/18 06/09/18 21:35 21:35 03:27 Creatine Kinase 377 H CK-MB (CK-2) 2.39 1.97 Troponin I 0.088 0.074 06/09/18 06/09/18 06/09/18 03:27 09:40 09:40 Creatine Kinase Cancelled 258 H CK-MB (CK-2) 2.03 Troponin I 0.066 Impressions: Chest X-Ray 06/08/18 17:20 IMPRESSION: NO ACUTE RADIOGRAPHIC FINDING IN THE CHEST. Assessment & Plan - Diagnosis (1) Atrial flutter with rapid ventricular response Is this a current diagnosis for this admission?: Yes Plan: Currently rate controlled and is off the cardizem dri. He knows that his non compliance with the anti arrythmic medications is what has put him in this stage. He says he will be more compliant in the future! (2) End-stage renal disease on hemodialysis Is this a current diagnosis for this admission?: Yes Plan: Currently undergoing dialysis without any issue.Its being supervised to ensure a safe and smooth procedure.VS are stable. Plan to remove 2-3 L as tolerated. Orders were reviewed with treating RN. (3) Hyperkalemia Plan: Should respond to dialysis Adv on proper diet. He should not be put on any TINA inh or ARB (4) Hypertension Plan: Controlled as seen when he taes all of his medications.
== END 2018-06-10 17:34 | disposition home or self-care (01) | DRG 308 ==
LOC: ER 16:43 → OBSVTOIN 18:17 → EH 18:17 → 3N 21:10
PROVIDERS: ADMIT Internal Medicine; ATTEND Internal Medicine
PROC: 5A1D70Z Performance of Urinary Filtration, Intermittent, Less than 6 Hours Per Day (ICD-10-PCS; principal; 2018-06-10)
PROC: 3E02340 Introduction of Influenza Vaccine into Muscle, Percutaneous Approach (ICD-10-PCS; 2018-06-10)
DX: I48.92 Unspecified atrial flutter (principal); N18.6 End stage renal disease; I12.0 Hypertensive chronic kidney disease with stage 5 chronic kidney disease or end stage renal disease; T82.868A Thrombosis due to vascular prosthetic devices, implants and grafts, initial encounter; T44.7X6A Underdosing of beta-adrenoreceptor antagonists, initial encounter; E78.5 Hyperlipidemia, unspecified; J40 Bronchitis, not specified as acute or chronic; M19.90 Unspecified osteoarthritis, unspecified site; I95.9 Hypotension, unspecified; E87.5 Hyperkalemia; Z79.02 Long term (current) use of antithrombotics/antiplatelets; Z87.891 Personal history of nicotine dependence; Z82.49 Family history of ischemic heart disease and other diseases of the circulatory system; Z86.718 Personal history of other venous thrombosis and embolism; Z99.2 Dependence on renal dialysis; Z79.899 Other long term (current) drug therapy; Z84.1 Family history of disorders of kidney and ureter; Z91.11 Patient's noncompliance with dietary regimen; Z91.138 Patient's unintentional underdosing of medication regimen for other reason; Z23 Encounter for immunization
CPT/HCPCS: 36415; 71045; 80048; 80053; 80076; 81001; 82140; 82150; 82550; 82553; 83036; 83690; 83735; 84100; 84439; 84484; 85025; 87040; 90686; 93005; 93010; 96365; 96366; 99285; J3490

== ENCOUNTER 2018-06-22 00:20 | Emergency (ER) | payer MEDICARE ==
--- NOTE | 2018-06-22 01:10 | RADIOLOGY REPORT (SQ) ---
EXAM DESCRIPTION: XR CHEST 1 VIEW COMPLETED DATE/TME: 06/22/2018 00:40 CLINICAL HISTORY: 57 years, Male, cp COMPARISON: 06/08/18 NUMBER OF VIEWS: 1 TECHNIQUE: AP view of the chest LIMITATIONS: None. FINDINGS: Mild pulmonary vascular congestion. The heart is enlarged. There is no pneumothorax or pleural effusion. The left dialysis catheter is unchanged in position. No acute fracture. IMPRESSION: Mild pulmonary vascular congestion 2010 [employer] All Rights Reserved
--- NOTE | 2018-06-22 01:30 | ER Document Report ---
ED General - General Chief Complaint: Chest Pain Stated Complaint: CHEST PAIN Time Seen by Provider: 06/22/18 01:05 Notes: Patient is a 57-year-old male with a past medical history of dialysis dependence , atrial fibrillation, congestive heart failure, who presents with intermittent chest pain for the past 3 hours. Patient reports that the pain comes and goes, is a stabbing pain in his central chest. Denies any pain at the time of my assessment. Nothing improves or worsens his symptoms. States he is a long- standing history of similar symptoms in the past. He has never had a cardiac catheterization or stent placement. States he has had mild stress test in the past. He has not contacted his general doctor regarding today's concerns. TRAVEL OUTSIDE OF THE [place] IN LAST 30 DAYS: No - Related Data Allergies/Adverse Reactions: DRY GAMBRO DIALYZERS Allergy (Unknown, Uncoded 06/22/18 04:07) "BP drop, vomiting" PAPER TAPE Allergy (Uncoded 06/22/18 04:07) Rash Past Medical History - General Information source: Patient - Social History Smoking Status: Never Smoker Frequency of alcohol use: None Drug Abuse: None Lives with: Alone Family History: Reviewed & Not Pertinent, Hypertension - Past Medical History Cardiac Medical History: Reports: Hx DVT, Hx Hypercholesterolemia, Hx Hypertension Denies: Hx Coronary Artery Disease, Hx Heart Attack Pulmonary Medical History: Reports: Hx Asthma Denies: Hx Bronchitis, Hx COPD, Hx Pneumonia Neurological Medical History: Denies: Hx Cerebrovascular Accident, Hx Seizures Renal/ Medical History: Reports: Hx End Stage Renal Disease, Hx Hemodialysis. Denies: Hx Peritoneal Dialysis Musculoskeletal Medical History: Reports Hx Arthritis - "DAMAGED NERVE TO RIGHT LEG" Psychiatric Medical History: Denies: Hx Depression Past Surgical History: Reports: Hx Neurologic Surgery - Benign brain tumor removed 2010, Hx Vascular Surgery - Right upper arm AV fistula, right and left PermCaths - Immunizations Hx Diphtheria, Pertussis, Tetanus Vaccination: Yes Hx Pneumococcal Vaccination: 02/07/16 Review of Systems - Review of Systems Notes: Constitutional: Negative for fever. HENT: Negative for sore throat. Eyes: Negative for visual changes. Cardiovascular: Positive for chest pain. Respiratory: Negative for shortness of breath. Gastrointestinal: Negative for abdominal pain, vomiting or diarrhea. Genitourinary: Negative for dysuria. Musculoskeletal: Negative for back pain. Skin: Negative for rash. Neurological: Negative for headaches, weakness or numbness. 10 point ROS negative except as marked above and in HPI. Physical Exam - Vital signs Vitals: Temp Pulse Resp BP Pulse Ox 98.6 F 77 20 149/80 H 100 06/22/18 00:35 06/22/18 00:35 06/22/18 00:35 06/22/18 00:35 06/22/18 00:35 Interpretation: Hypertensive Notes: PHYSICAL EXAMINATION: GENERAL: Well-appearing, well-nourished and in no acute distress. HEAD: Atraumatic, normocephalic. EYES: Pupils equal round and reactive to light, extraocular movements intact, sclera anicteric, conjunctiva are normal. ENT: nares patent, oropharynx clear without exudates. Moist mucous membranes. NECK: Normal range of motion, supple without lymphadenopathy LUNGS: Breath sounds clear to auscultation bilaterally and equal. No wheezes rales or rhonchi. HEART: Regular rate and rhythm without murmurs ABDOMEN: Soft, nontender, normoactive bowel sounds. No guarding, no rebound. No masses appreciated. EXTREMITIES: Normal range of motion, prominent swelling of the right upper extremity which is baseline. NEUROLOGICAL: No focal neurological deficits. Moves all extremities spontaneously and on command. PSYCH: Normal mood, normal affect. SKIN: Warm, Dry, normal turgor, no rashes or lesions noted. Course - Re-evaluation Re-evalutation: 06/22/18 01:27 Patient presents with intermittent chest pain for the past 3 hours. He states this feels similar to many episodes that he has had in the past, has no history of coronary artery disease, never required a catheter or stents. Low clinical suspicion for ACS given clinical history, exam, EKG without ST elevations or depressionsPE also seems unlikely given clinical history, absence of tachycardia or dyspnea. Wells score is 0. Patient is also anticoagulated for atrial fibrillation further reducing the probability of an acute pulmonary embolus. CXR without evidence of pneumothorax or pneumonia. No widened mediastinum. Aortic dissection also seems unlikely given history, symmetric pulses, CXR, and vitals. Awaiting troponin. 06/22/18 03:28 Initial troponin is unremarkable. Patient remains well in appearance, continues to deny chest pain. I did give a dose of oral metoprolol for which she is due as the patient was beginning to have a higher rate with his A. fib of which he has a long-standing history. Repeat troponin pending, if this remains unremarkable plan for discharge home with outpatient follow-up and return precautions. 06/22/18 04:15 I came to see her patient's repeat troponin effectively unchanged from previous. Well below previous thresholds. Remains without chest pain. At this time will discharge with return precautions and follow-up recommendations. Verbal discharge instructions given a the bedside and opportunity for questions given. Medication warnings reviewed. Patient is in agreement with this plan and has verbalized understanding of return precautions and the need for primary care follow-up in the next 24-72 hours. - Vital Signs Vital signs: Temp Pulse Resp BP Pulse Ox 98.6 F 77 13 116/77 97 06/22/18 00:35 06/22/18 00:35 06/22/18 04:00 06/22/18 04:00 06/22/18 04:00 - Laboratory Result Diagrams: 06/22/18 01:25 06/22/18 01:25 Laboratory results interpreted by me: 06/22/18 06/22/18 01:25 01:25 RBC 3.58 L Hgb 11.2 L Hct 33.6 L RDW 16.0 H Potassium 5.8 H Carbon Dioxide 21 L BUN 70 H Creatinine 15.00 H Est GFR ( Amer) 4 L Est GFR (Non-Af Amer) 3 L - Diagnostic Test Radiology reviewed: Image reviewed, Reports reviewed Radiology results interpreted by me: 06/22/18 01:28 Chest x-ray: Mild vascular congestion, unchanged from previous. - EKG Interpretation by Me Additional EKG results interpreted by me: 06/22/18 01:28 Sinus rhythm. Rate 76. No ST elevations or depressions. QTC is 459. Discharge - Discharge Clinical Impression: End-stage renal disease on hemodialysis Chest pain Qualifiers: Chest pain type: unspecified Qualified Code(s): R07.9 - Chest pain, unspecified Atrial flutter Qualifiers: Atrial flutter type: unspecified Qualified Code(s): I48.92 - Unspecified atrial flutter Condition: Good Disposition: HOME, SELF-CARE Additional Instructions: You were seen today for chest pain. The exact cause of your pain is unclear. However, based on your cardiac enzyme testing, chest x-ray, and EKG it does not appear that it is from an immediately life-threatening cause at this time. Although your testing here is normal is critical that you follow-up with your primary care physician for continued evaluation of this chest pain and possible stress testing. I recommended you see your physician within the next 24-48 hours to be evaluated for consideration of a stress test. Please return to emergency department immediately if you have worsening of your chest pain, shortness of breath, vomiting, become unable to exert yourself due to pain or difficulty breathing, you pass out, or have any pain that radiates into your arms, jaw, or back. Please also return if you have any additional symptoms that are concerning to you. Referrals: СВЕТЛАНА WHEELER MD [Primary Care Provider] - Follow up as needed
[2018-06-22 01:43] LABS: ABSOLUTE BASOPHILS # (AUTO) 0.1 10^3/uL (0.0-0.2); ABSOLUTE EOSINOPHILS # (AUTO) 0.4 10^3/uL (0.0-0.6); ABSOLUTE LYMPHOCYTES (AUTO) 1.7 10^3/uL (0.5-4.7); ABSOLUTE MONOCYTES (AUTO) 0.8 10^3/uL (0.1-1.4); ABSOLUTE NEUT (AUTO) 4.3 10^3/uL (1.7-8.2); BASOPHILS % (AUTO) 1.4 % (0-2); EOSINOPHILS % (AUTO) 5.5 % (0-6); HEMATOCRIT 33.6 % (37.9-51.0); HEMOGLOBIN 11.2 g/dL (13.5-17.0); LYMPHOCYTES % (AUTO) 23.1 % (13-45); MEAN CORPUSCULAR HEMOGLOBIN 31.2 pg (27.0-33.4); MEAN CORPUSCULAR HGB CONC 33.2 g/dL (32.0-36.0); MEAN CORPUSCULAR VOLUME 94 fl (80-97); MONOCYTES % (AUTO) 10.4 % (3-13); PLATELET COUNT 151 10^3/uL (150-450); RED BLOOD COUNT 3.58 10^6/uL (4.35-5.55); SEGMENTED NEUTROPHILS % (AUTO) 59.6 % (42-78); TOTAL CELLS COUNTED % (AUTO) 100 %; WHITE BLOOD COUNT 7.3 10^3/uL (4.0-10.5)
[2018-06-22 02:31] LABS: ANION GAP 18 (5-19); BLOOD UREA NITROGEN 70 mg/dL (7-20); CALCIUM 8.5 mg/dL (8.4-10.2); CARBON DIOXIDE 21 mmol/L (22-30); CHLORIDE 101 mmol/L (98-107); GLUCOSE 98 mg/dL (75-110); POTASSIUM 5.8 mmol/L (3.6-5.0); SODIUM 140.1 mmol/L (137-145)
[2018-06-22] MEDS ORDERED: METOPROLOL TARTRATE 25 MG TABLET PO ONE (02:41)
[2018-06-22] MEDS ORDERED: LIDOCAINE 2% VISCOUS SOLN 20 ML UDCUP PO ONE (04:09)
[2018-06-22 04:11] VITALS: BP 116/77
--- NOTE | 2018-06-22 07:47 | EKG REPORT ---
SEVERITY:- ABNORMAL ECG - ATRIAL FLUTTER , THIS IS NEW. : Confirmed by: Sina Trejo MD 22-Jun-2018 07:46:42
--- NOTE | 2018-06-22 07:49 | EKG REPORT ---
SEVERITY:- ABNORMAL ECG - SINUS RHYTHM MARYANNE, CONSIDER BIATRIAL ABNORMALITIES : Confirmed by: Sina Trejo MD 22-Jun-2018 07:48:54
== END 2018-06-22 04:25 | disposition home or self-care (01) ==
LOC: ER 00:20
DX: R07.9 Chest pain, unspecified (principal); I12.0 Hypertensive chronic kidney disease with stage 5 chronic kidney disease or end stage renal disease; N18.6 End stage renal disease; Z99.2 Dependence on renal dialysis; I48.92 Unspecified atrial flutter
CPT/HCPCS: 93005; 99285; 36415; 85025; 80048; 84484; 71045; 93010; J3490; A9270

== ENCOUNTER 2018-08-08 02:26 | Emergency (ER) | payer MEDICARE ==
--- NOTE | 2018-08-08 03:33 | RADIOLOGY REPORT (SQ) ---
EXAM DESCRIPTION: XR CHEST 2 VIEWS COMPLETED DATE/TME: 08/08/2018 03:06 CLINICAL HISTORY: 57 years, Male, cough COMPARISON: 05/19/2018 chest x-ray NUMBER OF VIEWS: 2 TECHNIQUE: Frontal and lateral views of the chest LIMITATIONS: None. FINDINGS: The heart size is normal. Central venous catheter in place. Mild interstitial edema. No pneumothorax. Underlying COPD. Osteopenia. IMPRESSION: Mild interstitial edema. Underlying COPD copyright 2010 [employer]- All Rights Reserved
--- NOTE | 2018-08-08 03:47 | ER Document Report ---
ED General - General Chief Complaint: Back Pain Stated Complaint: BACK/EAR PAIN Time Seen by Provider: 08/08/18 03:01 Notes: Patient is a pleasant 57-year-old male who presents with complaint of nasal congestion and pressure behind his right ear. He is a dialysis patient appears due for dialysis in the morning. He says had some cough. No fevers. No vomiting. No abdominal pain. No chest pain. Says symptoms have been ongoing for just over a day. She says tonight he also woke about a bags he was sneezing and coughing and felt like he pulled his left shoulder. He says he has little pain behind his left shoulder whenever he rotates his torso to the right. Otherwise he does not have pain when standing still. He has no other complaints at this time. 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 He is currently on blood thinning medications. He says there has not been an acute change in his right upper extremity in the last 24 hours. TRAVEL OUTSIDE OF THE [place] IN LAST 30 DAYS: No - Related Data Allergies/Adverse Reactions: DRY GAMBRO DIALYZERS Allergy (Unknown, Uncoded 06/22/18 04:07) "BP drop, vomiting" PAPER TAPE Allergy (Uncoded 06/22/18 04:07) Rash Past Medical History - Social History Smoking Status: Unknown if Ever Smoked Chew tobacco use (# tins/day): No Frequency of alcohol use: None Drug Abuse: None Family History: Reviewed & Not Pertinent, Hypertension Patient has suicidal ideation: No Patient has homicidal ideation: No - Past Medical History Cardiac Medical History: Reports: Hx DVT, Hx Hypercholesterolemia, Hx Hypertension Denies: Hx Coronary Artery Disease, Hx Heart Attack Pulmonary Medical History: Reports: Hx Asthma Denies: Hx Bronchitis, Hx COPD, Hx Pneumonia Neurological Medical History: Denies: Hx Cerebrovascular Accident, Hx Seizures Renal/ Medical History: Reports: Hx End Stage Renal Disease, Hx Hemodialysis. Denies: Hx Peritoneal Dialysis Musculoskeletal Medical History: Reports Hx Arthritis - "DAMAGED NERVE TO RIGHT LEG" Psychiatric Medical History: Denies: Hx Depression Past Surgical History: Reports: Hx Neurologic Surgery - Benign brain tumor removed 2010, Hx Vascular Surgery - Right upper arm AV fistula, right and left PermCaths - Immunizations Hx Diphtheria, Pertussis, Tetanus Vaccination: Yes Hx Pneumococcal Vaccination: 02/07/16 Review of Systems - Review of Systems Notes: My Normal Review Basic REVIEW OF SYSTEMS: CONSTITUTIONAL : Denies fever, chills, or sweats. Denies recent illness. EENT: Nasal congestion and cough. Right ear pain. CARDIOVASCULAR: Denies chest pain. RESPIRATORY: Intermittent cough. Denies shortness of breath, difficulty breathing, or wheezing. GASTROINTESTINAL: Denies abdominal pain. Denies nausea, vomiting, or diarrhea. MUSCULOSKELETAL: On left shoulder. SKIN: Denies rash or skin lesions. NEUROLOGICAL: Denies altered mental status or loss of consciousness. Denies headache. Denies weakness or paralysis or loss of use of either side. Denies problems with gait or speech. Denies sensory or motor loss. ALL OTHER SYSTEMS REVIEWED AND NEGATIVE. Physical Exam - Vital signs Vitals: Temp Pulse Resp BP Pulse Ox 98.1 F 82 20 175/90 H 97 08/08/18 02:33 08/08/18 02:33 08/08/18 02:33 08/08/18 02:33 08/08/18 02:33 - Notes Notes: General Appearance: Well nourished, alert, cooperative, no acute distress, no obvious discomfort. Well-appearing. Vitals: reviewed, See vital signs table. Head: no swelling or tenderness to the head Eyes: PERRL, EOMI, Conjuctiva clear Mouth: No decreasd moisture Ears: Normal-appearing tympanic membranes bilaterally. Nose: Some inflammation of the nasal turbinates. Patient has obvious audible nasal congestion during exam. Throat: No tonsillar inflammation, No airway obstruction, No lymphadenopathy Neck: Supple, no neck tenderness, No thyromegaly Lungs: No wheezing, No rales, No rhonci, No accessory muscle use, good air exchange bilaterally. Heart: Normal rate, Regular rythm, No murmur, no rub Abdomen: Normal BS, soft, No rigidity, No abdominal tenderness, No guarding, no rebound, no abdominal masses, no organomegaly Extremities: strength 5/5 in all extremities, good pulses in all extremities, upper extremity is very swollen due to the obstructed fistula. No evidence of poor perfusion distally into the hand. Patient does not have any reproducible pain palpation left shoulder. His pain is easily reproduced with him just twisting his torso to the right as he says it causes a pulling sensation behind his left shoulder. Skin: warm, dry, appropriate color, no rash Neuro: speech clear, oriented x 3, normal affect, responds appropriately to questions. Course - Re-evaluation Re-evalutation: 08/08/18 03:51 I suspect patient's shoulder pain is muscle skeletal being that she is reproduced with range of motion. His right ear pain and congestion since related to her URI. She does not have any evidence of otitis media on evaluation of his ear. I think his ear pain is most likely related to his congestion unable to equalize pressure from behind his eardrum itself. He is a dialysis patient with chronic hypertension therefore I do not think decongestants are appropriate for him. I will have him use [id number] Nasacort as well as saline nasal sprays and Tylenol. I informed him to still continue follow-up with his dialysis doctor this morning for his dialysis. Chest x-ray shows no evidence of pneumonia and his lung nur are clear. Patient encouraged to return to ER if he has fevers, difficulty breathing, or feels unwell. Patient agrees with plan will be discharged home. Dictation of this chart was performed using voice recognition software; therefore, there may be some unintended grammatical errors. - Vital Signs Vital signs: Temp Pulse Resp BP Pulse Ox 98.1 F 82 20 175/90 H 97 08/08/18 02:33 08/08/18 02:33 08/08/18 02:33 08/08/18 02:33 08/08/18 02:33 Discharge - Discharge Clinical Impression: URI (upper respiratory infection) Qualifiers: URI type: unspecified URI Qualified Code(s): J06.9 - Acute upper respiratory infection, unspecified Condition: Good Disposition: HOME, SELF-CARE Additional Instructions: Please try over the counter steroid nasal spray such as Nasacort. Also saline nasal sprays will help improve your congestion some. Your chest xray does not show evidence of pneumonia. Please return to the ER immediately i you develop fevers, difficulty breathing, or feel unwell. Referrals: СВЕТЛАНА WHEELER MD [Primary Care Provider] - 08/10/18
[2018-08-08 04:19] VITALS: BP 166/93
== END 2018-08-08 04:00 | disposition home or self-care (01) ==
LOC: ER 02:26
DX: J06.9 Acute upper respiratory infection, unspecified (principal); R09.81 Nasal congestion; I12.0 Hypertensive chronic kidney disease with stage 5 chronic kidney disease or end stage renal disease; N18.6 End stage renal disease; Z99.2 Dependence on renal dialysis; R06.7 Sneezing; R05 Cough; J45.909 Unspecified asthma, uncomplicated; H92.01 Otalgia, right ear; M25.512 Pain in left shoulder; T82.867A Thrombosis due to cardiac prosthetic devices, implants and grafts, initial encounter; Y71.8 Miscellaneous cardiovascular devices associated with adverse incidents, not elsewhere classified; Y84.1 Kidney dialysis as the cause of abnormal reaction of the patient, or of later complication, without mention of misadventure at the time of the procedure; Z79.01 Long term (current) use of anticoagulants
CPT/HCPCS: 71046; 99283

== ENCOUNTER → 2018-08-26 | Outpatient (CLI) | payer MEDICAID, MEDICARE ==
[~2018-08-26] MED LIST changes: -DIAZEPAM 5 MG TABLET PO PRN; -OXYCODONE-ACETAMINOPHEN 5-325 MG TABLET PO PRN; +REGADENOSON INJ 0.4 MG/5 ML DISP.SYRIN IV ONE
--- NOTE | 2018-08-28 19:32 | DRAGON STRESS TEST REPORT ---
Intravenous Lexiscan Cardiolite stress test using single photon emmision computerized tomography. Date of procedure: 08/26/2018. Ordering Provider: Dr. Amanda Dumont. Patient's status: Out Patient. Indication: Abnormal EKG, history of paroxysmal atrial flutter, and preoperative cardiac risk assessment. Coronary risk factors: Age, hypertension, and dyslipidemia. Note patient has a history of end-stage renal disease on hemodialysis. Resting EKG: Sinus Rhythm. Nonspecific ST-T changes diffusely. Stress EKG: No changes of ischemia. Reason for termination: Protocol. The patient had no chest pain or discomfort, and there were no arrhythmias seen. Conclusions: Normal EKG and hemodynamic response to IV Lexiscan. Nuclear data: At rest the patient was given 14.81 millicuries of technetium 99m sestamibi injected intravenously. As per protocol rest non gated SPECT images were obtained. Subsequently the patient was given intravenous Lexiscan at a dose of 0.4 mg in 5 mL intravenously, followed by flush with normal saline. Subsequently the stress dose of 43.6 millicuries of technetium 99m sestamibi was injected intravenously. As per protocol stress gated images were obtained. Nuclear interpretation: Review of images showed that all segments of the myocardium had normal perfusion at rest, and normal perfusion post stress with IV Lexiscan. All segments of the myocardium had normal motion, contraction, and thickening by gated study. T. I D. ratio was normal at 0.80. There is no transient ischemic calcification of the left ventricle. Computer read rest, and stress left ventricular ejection fraction were 52 %, and 55 %, respectively. Visually both the stress and rest ejection fractions were normal, and greater than 55%. Conclusion: 1. There is no scintigraphic evidence of Lexiscan induced myocardial ischemia. 2. There is no scintigraphic evidence of myocardial infarction/scar. Recommendations: Aggressive risk factor modification, and treating the underlying co- morbidities. MTDD
== END ==
LOC: RAD 07:58
PROVIDERS: ATTEND Specialist
DX: R94.31 Abnormal electrocardiogram [ECG] [EKG] (principal)
CPT/HCPCS: 93017; 78452; A9500; J2785; Q9969

== ENCOUNTER → 2018-09-02 | Outpatient (CLI) | payer MEDICARE | LOC: SP 08:02 | PROVIDERS: ATTEND Specialist | DX: R94.31 Abnormal electrocardiogram [ECG] [EKG] (principal) | CPT/HCPCS: 93306 ==

== ENCOUNTER 2018-09-18 13:02 | Emergency (ER) | payer MEDICARE, MEDICAID ==
--- NOTE | 2018-09-18 14:18 | ER Document Report ---
ED Medical Screen (RME) - General Chief Complaint: Skin Problem Stated Complaint: RASH Time Seen by Provider: 09/18/18 14:10 TRAVEL OUTSIDE OF THE [place] IN LAST 30 DAYS: No - HPI Notes: 09/18/18 14:15 Patient is a 57-year-old male that presents to the emergency department for chief complaint of rash to his right arm. Patient had his fistula reversed at [facility] on Friday. He noticed a rash on his right arm yesterday. The rash is itchy and painful. He denies fevers and chills. ROS: GENERAL: Denies fever of chills CV: Denies chest pain PHYSICAL EXAMINATION: GENERAL: Well-appearing, well-nourished and in no acute distress. HEAD: Atraumatic, normocephalic. EYES: Pupils equal round extraocular movements intact, conjunctiva are normal. ENT: Nares patent NECK: Normal range of motion LUNGS: No respiratory distress Musculoskeletal: Normal range of motion NEUROLOGICAL: Normal speech, normal gait. PSYCH: Normal mood, normal affect. Extremity: Right upper extremity edema, right AC surgical incision with stitches in place, papular rash to right upper extremity MDM: Patient seen and examined for rapid initial assessment. Vital signs reviewed. A comprehensive ED assessment and evaluation of the patient, analysis of test results and completion of the medical decision making process will be conducted by additional ED providers. - Related Data Allergies/Adverse Reactions: DRY GAMBRO DIALYZERS Allergy (Unknown, Uncoded 06/22/18 04:07) "BP drop, vomiting" PAPER TAPE Allergy (Uncoded 06/22/18 04:07) Rash Past Medical History - Past Medical History Cardiac Medical History: Reports: Hx DVT, Hx Hypercholesterolemia, Hx Hypertension Denies: Hx Coronary Artery Disease, Hx Heart Attack Pulmonary Medical History: Reports: Hx Asthma Denies: Hx Bronchitis, Hx COPD, Hx Pneumonia Neurological Medical History: Denies: Hx Cerebrovascular Accident, Hx Seizures Renal/ Medical History: Reports: Hx End Stage Renal Disease, Hx Hemodialysis. Denies: Hx Peritoneal Dialysis Musculoskeltal Medical History: Reports Hx Arthritis - "DAMAGED NERVE TO RIGHT LEG" Psychiatric Medical History: Denies: Hx Depression Past Surgical History: Reports: Hx Neurologic Surgery - Benign brain tumor removed 2010, Hx Vascular Surgery - Right upper arm AV fistula, right and left PermCaths - Immunizations Hx Diphtheria, Pertussis, Tetanus Vaccination: Yes History of Influenza Vaccine for 06/2017 - 11/2017 Season: Yes Influenza Administration Date for 06/2017 - 11/2017 Season: 06/08/17 Physical Exam - Vital signs Vitals: Temp Pulse Resp BP Pulse Ox 98.6 F 92 18 171/93 H 97 09/18/18 13:07 09/18/18 13:07 09/18/18 13:07 09/18/18 13:07 09/18/18 13:07 Course - Vital Signs Vital signs: Temp Pulse Resp BP Pulse Ox 98.6 F 92 18 171/93 H 97 09/18/18 13:07 09/18/18 13:07 09/18/18 13:07 09/18/18 13:07 09/18/18 13:07 Doctor's Discharge - Discharge Referrals: LUPILLO BOYCE MD [Primary Care Provider] - Follow up as needed
--- NOTE | 2018-09-18 18:11 | ER Document Report ---
ED General - General Chief Complaint: Skin Problem Stated Complaint: SKIN ISSUE Time Seen by Provider: 09/18/18 14:10 Mode of Arrival: Ambulatory Information source: Patient, [facility] Records, Outside Facility Records Notes: 57-year-old retention, hyperlipidemia, end-stage renal disease undergoing dialysis Friday, Friday, Friday presents with complaint of right upper extremity pain and rash. Patient states that 5 days prior to arrival he underwent fistula suturing due to malfunction. Patient states that his arm has been wrapped in an Isac bandage since that time. He states that yesterday when he unwrapped his arm he noticed a rash over the forearm. He also reports increasing warmth and tenderness. Patient has had a swollen abnormal looking right upper extremity for over 1 year. Patient has not missed any dialysis. Patient's procedure was performed at [facility]. Patient denies any fever, chills, nausea, vomiting. He does report that he has had a recent ultrasound of the right upper extremity which was negative for clot. TRAVEL OUTSIDE OF THE [place] IN LAST 30 DAYS: No - HPI Onset: Last week Onset/Duration: Gradual, Persistent Quality of pain: Burning Severity: Mild Associated symptoms: denies: Chest pain, Fever, Nausea, Vomiting, Rhinnorhea, Shortness of breath Exacerbated by: Denies Relieved by: Denies Similar symptoms previously: No Recently seen / treated by doctor: No - Related Data Allergies/Adverse Reactions: DRY GAMBRO DIALYZERS Allergy (Unknown, Uncoded 06/22/18 04:07) "BP drop, vomiting" PAPER TAPE Allergy (Uncoded 06/22/18 04:07) Rash Past Medical History - General Information source: Patient, Dr. Sanchez, [facility] Records, Outside Facility Records - Social History Smoking Status: Never Smoker Chew tobacco use (# tins/day): No Frequency of alcohol use: None Drug Abuse: None Lives with: Family Family History: Reviewed & Not Pertinent, Hypertension Patient has suicidal ideation: No Patient has homicidal ideation: No - Past Medical History Cardiac Medical History: Reports: Hx DVT, Hx Hypercholesterolemia, Hx Hypertension Denies: Hx Coronary Artery Disease, Hx Heart Attack Pulmonary Medical History: Reports: Hx Asthma Denies: Hx Bronchitis, Hx COPD, Hx Pneumonia Neurological Medical History: Denies: Hx Cerebrovascular Accident, Hx Seizures Renal/ Medical History: Reports: Hx End Stage Renal Disease, Hx Hemodialysis. Denies: Hx Peritoneal Dialysis Musculoskeletal Medical History: Reports Hx Arthritis - "DAMAGED NERVE TO RIGHT LEG" Psychiatric Medical History: Denies: Hx Depression Past Surgical History: Reports: Hx Neurologic Surgery - Benign brain tumor removed 2010, Hx Vascular Surgery - Right upper arm AV fistula, right and left PermCaths - Immunizations Hx Diphtheria, Pertussis, Tetanus Vaccination: Yes Hx Pneumococcal Vaccination: 02/07/16 Review of Systems - Review of Systems Notes: REVIEW OF SYSTEMS: CONSTITUTIONAL : Denies fever, chills, or sweats. Denies recent illness. Denies weight loss, recent hospitalizations. EENT: Denies visual changes, eye pain. Denies sore throat, oral lesions, difficulty swallowing. CARDIOVASCULAR: Denies chest pain. Denies palpitations. Denies lower extremity edema. RESPIRATORY: Denies cough. Denies shortness of breath, wheezing. GASTROINTESTINAL: Denies abdominal pain or distention. Denies nausea, vomiting, or diarrhea. Denies blood in vomitus, stools, or per rectum. Denies black, tarry stools. Denies constipation. GENITOURINARY: Denies difficulty urinating, painful urination, frequency, blood in urine, testicular pain or penile discharge. MUSCULOSKELETAL: Denies back or neck pain or stiffness. Denies joint pain or swelling. SKIN: Denies rash, lesions or sores. HEMATOLOGIC : Denies easy bruising or bleeding. LYMPHATIC: Denies swollen glands. NEUROLOGICAL: Denies confusion or altered mental status. Denies loss of consciousness. Denies dizziness or lightheadedness. Denies headache. Denies weakness or paralysis. Denies problems difficulty with ambulation, slurred speech. Denies sensory loss, numbness, or tingling. Denies seizures. PSYCHIATRIC: Denies anxiety or stress. Denies depression, suicidal ideation, or PHYSICAL EXAMINATION: GENERAL: Well-appearing, well-nourished and in no acute distress. HEAD: Atraumatic, normocephalic. EYES: Pupils equal round and reactive to light, extraocular movements intact, sclera anicteric, conjunctiva are normal. ENT: Nares patent, oropharynx clear without exudates. Moist mucous membranes. NECK: Normal range of motion, supple without lymphadenopathy LUNGS: Breath sounds clear to auscultation bilaterally and equal. No wheezes rales or rhonchi. HEART: Regular rate and rhythm without murmurs ABDOMEN: Soft, nontender, nondistended abdomen. No guarding, no rebound. No masses appreciated. Musculoskeletal: Normal range of motion, no pitting or edema. No cyanosis. Right upper extremity with sutures in the antecubital fossa. Surgical incision clean dry and intact. Right upper extremity erythematous, warm extremity, swollen. NEUROLOGICAL: Cranial nerves grossly intact. Normal speech, normal gait. Normal sensory, motor exams PSYCH: Normal mood, normal affect. SKIN: Right upper extremity with pinpoint pustular lesions of the forearm, erythema and warmth of the right upper extremity. Physical Exam - Vital signs Vitals: Temp Pulse Resp BP Pulse Ox 98.6 F 92 18 171/93 H 97 09/18/18 13:07 09/18/18 13:07 09/18/18 13:07 09/18/18 13:07 09/18/18 13:07 Interpretation: Hypertensive Course - Re-evaluation Re-evalutation: Temp Pulse Resp BP Pulse Ox 98.4 F 83 18 155/79 H 98 09/18/18 18:21 09/18/18 18:21 09/18/18 18:21 09/18/18 18:21 09/18/18 18:21 09/18/18 18:10 57-year-old male presents with complaint of right upper extremity pain, swelling and erythema. Patient had his fistula tied off on Friday at [facility] by Dr. King Garner. I have contacted [facility] to speak to her or whoever is covering her for vascular surgery. 09/19/18 02:[address] King Garner the vascular surgeon who will perform the tying off of the patient's right upper extremity fistula this week. She believes that this is likely a superficial phlebitis but advises antibiotic coverage for cellulitis. Also advises continued compression of the right upper extremity and follow-up in her office on Friday at 8 AM. Patient was provided Keflex and Bactrim during his ED course and home-going prescription was provided. Patient's upper extremity was rewrapped with new Isac bandages. I spoke to him regarding his need for follow-up and he is concerned that he will not be able to get there on Friday. I did advise him to call the office as soon as possible and we arrange early follow-up but in the meantime he could return to his vascular surgeon here locally Dr. Chester. Patient was evaluated and treated as appropriate for the patient's presenting symptoms and complaint, with consideration of any critical or life threatening conditions that may be associated with their obtained history and exam as noted above. All results were discussed with patient. Patient provided the opportunity to ask questions, and express concerns. Patient was educated on treatments based on their presumed diagnosis as noted above. At this time we will discharge the patient with return precautions and follow-up recommendations. Verbal discharge instructions given a the bedside. Medication warnings reviewed. Patient is in agreement with this plan and has verbalized understanding of return precautions. After careful consideration I feel that that patient can be safely discharged from the emergency department, they were advised to followup with a primary care physician in 2-3 days. Dictation on this chart was performed using voice recognition software and may result in unintended grammatical, spelling, syntax or errors. - Vital Signs Vital signs: Temp Pulse Resp BP Pulse Ox 98.4 F 83 18 155/79 H 98 09/18/18 18:21 09/18/18 18:21 09/18/18 18:21 09/18/18 18:21 09/18/18 18:21 Discharge - Discharge Clinical Impression: Superficial phlebitis, Cellulitis of right upper extremity, End-stage renal disease on hemodialysis Contact dermatitis Qualifiers: Contact dermatitis type: irritant Contact dermatitis trigger: other trigger Qualified Code(s): L24.89 - Irritant contact dermatitis due to other agents; L24.8 - Irritant contact dermatitis due to other agents Condition: Good Disposition: HOME, SELF-CARE Instructions: Cellulitis ([facility]), Superficial Phlebitis ([facility]), Contact Dermatitis ([facility]) Additional Instructions: The rash is likely due to infection of your skin. You need to take the antibiotics as prescribed. Do not stop even if the rash goes away until you have completed all the antibiotics. The area of redness was traced out here in the emergency department with a marking pen. You need to return to emergency department if the redness spreads outside of this area by more than 2 cm in any direction. You should also return if you develop fevers with temperature greater than 101, persistent vomiting, worsening pain, or have any other symptoms that are concerning to you. your vascular surgeon wants to see you in her office on Friday at 8 AM. If you are unable to follow with her please call her and arrange a time that is convenient for you. Please follow-up with your primary care physician Dr. Wheeler in the next 3-5 days. Prescriptions: Cephalexin Monohydrate [Keflex 500 mg Capsule] 500 mg PO Q6H 5 Days #20 capsule Sulfamethoxazole/Trimethoprim [Bactrim Ds Tablet] 1 each PO BID #14 tablet Forms: Elevated Blood Pressure Referrals: LUPILLO BOYCE MD [ACTIVE STAFF] - Follow up as needed СВЕТЛАНА WHEELER MD [Primary Care Provider] - Follow up in 3-5 days CORNELIO CHESTER MD [ACTIVE STAFF] - Follow up in 3-5 days
[2018-09-18] MEDS ORDERED: SULFAMETHOXAZOLE/TRIMETHOPRIM 800-160 MG TABLET PO ONE (18:23)
[2018-09-18] MEDS ORDERED: CEPHALEXIN 500 MG CAPSULE PO ONE (18:23)
[2018-09-18 18:27] VITALS: BP 155/79
== END 2018-09-18 18:50 | disposition home or self-care (01) ==
LOC: ER 13:02
DX: L03.113 Cellulitis of right upper limb (principal); I80.9 Phlebitis and thrombophlebitis of unspecified site; I12.0 Hypertensive chronic kidney disease with stage 5 chronic kidney disease or end stage renal disease; N18.6 End stage renal disease; Z99.2 Dependence on renal dialysis; L24.9 Irritant contact dermatitis, unspecified cause; Z98.890 Other specified postprocedural states; Z91.048 Other nonmedicinal substance allergy status; Z88.8 Allergy status to other drugs, medicaments and biological substances; J45.909 Unspecified asthma, uncomplicated
CPT/HCPCS: 99283; A9270 ×2

== ENCOUNTER 2019-01-20 05:21 | Emergency (ER) | payer MEDICARE ==
[2019-01-20 05:26] VITALS: BP 189/102
[2019-01-20] MEDS ORDERED: CEPHALEXIN 500 MG CAPSULE PO ONE (05:48)
[2019-01-20] MEDS ORDERED: SULFAMETHOXAZOLE/TRIMETHOPRIM 800-160 MG TABLET PO ONE (05:48)
--- NOTE | 2019-01-20 05:55 | ER Document Report ---
ED General - General Chief Complaint: Post Surgical Bleeding Stated Complaint: POST OP BLEEDING Time Seen by Provider: 01/20/19 05:39 Primary Care Provider: СВЕТЛАНА WHEELER MD [Primary Care Provider] - Follow up as needed Notes: Very pleasant 58-year-old male with hyperlipidemia, hypertension, and end-stage renal disease with dialysis on Friday/Friday/Friday presents to the emergency department for a small amount of bleeding from a surgical incision that occurred 5 days ago. He said instructions were if there was any bleeding to immediately go to the emergency department. He said that it was wrapped in Isac wrap and he saw some blood on it this morning so he sought care. He denies any fevers or chills, nausea or vomiting, shortness of breath or chest pain, abdominal pain, complains of warmth and swelling to his right extremity, complains of a rash of his right extremity. No other complaints TRAVEL OUTSIDE OF THE [place] IN LAST 30 DAYS: No - Related Data Allergies/Adverse Reactions: DRY GAMBRO DIALYZERS Allergy (Unknown, Uncoded 06/22/18 04:07) "BP drop, vomiting" PAPER TAPE Allergy (Uncoded 06/22/18 04:07) Rash Past Medical History - Social History Smoking Status: Never Smoker Family History: Reviewed & Not Pertinent, Hypertension - Past Medical History Cardiac Medical History: Reports: Hx DVT, Hx Hypercholesterolemia, Hx Hypertension Denies: Hx Coronary Artery Disease, Hx Heart Attack Pulmonary Medical History: Reports: Hx Asthma Denies: Hx Bronchitis, Hx COPD, Hx Pneumonia Neurological Medical History: Denies: Hx Cerebrovascular Accident, Hx Seizures Renal/ Medical History: Reports: Hx End Stage Renal Disease, Hx Hemodialysis. Denies: Hx Peritoneal Dialysis Musculoskeletal Medical History: Reports Hx Arthritis - "DAMAGED NERVE TO RIGHT LEG" Psychiatric Medical History: Denies: Hx Depression Past Surgical History: Reports: Hx Neurologic Surgery - Benign brain tumor removed 2010, Hx Vascular Surgery - Right upper arm AV fistula, right and left PermCaths - Immunizations Hx Diphtheria, Pertussis, Tetanus Vaccination: Yes Hx Pneumococcal Vaccination: 02/07/16 Review of Systems - Review of Systems Constitutional: See HPI EENT: No symptoms reported Cardiovascular: See HPI Respiratory: See HPI Gastrointestinal: See HPI Genitourinary: No symptoms reported Male Genitourinary: No symptoms reported Musculoskeletal: No symptoms reported Skin: See HPI Hematologic/Lymphatic: No symptoms reported Neurological/Psychological: No symptoms reported Physical Exam - Vital signs Vitals: Temp Pulse Resp BP Pulse Ox 97.8 F 84 18 189/102 H 98 01/20/19 05:23 01/20/19 05:23 01/20/19 05:23 01/20/19 05:01/20/19 05:23 - Notes Notes: PHYSICAL EXAMINATION: Reviewed vital signs and charting by RN GENERAL: Well-appearing, well-nourished and in no acute distress. HEAD: Atraumatic, normocephalic. No scalp deformity, depression, or crepitance. EYES: extraocular movements intact, sclera anicteric, conjunctiva are normal. ENT: Nares patent bilaterally, LUNGS: Breath sounds present, equal, and clear to auscultation bilaterally. No wheezes, rales, or rhonchi. HEART: Regular rate and rhythm without murmurs, rubs, or gallops. 2+ peripheral pulses. Normal capillary refill. EXTREMITIES: Normal range of motion, significant edema of the right upper extremity that has been present for approximately 1 year due to multiple fistula revisions, surgical incision along the antecubital area that is mostly healed with a scab that is fallen off approximately 3 cm. The wound is still approximated and not bleeding or oozing. Patient also with a rash appears to be papular and he says it itches him a no cyanosis. NEUROLOGICAL: No focal neurological deficits. Cranial nerves III-XII grossly intact. Moves all extremities spontaneously and on command SKIN: Warm, dry, normal turgor, no rashes or lesions noted. Course - Re-evaluation Re-evalutation: 01/20/19 05:54 Well-appearing. There is a 3 cm spot that scab fell off that is closed does not need suture repair. I placed Dermabond over the area. Gave patient strict return precautions and what to look out for in case the wound opens up. Patient also with a rash the extremity is warm consistent with a previous although is not a diabetic. Patient's blood pressures elevated patient has dialysis today and he no complaints is concerning for endorgan damage. Stable for discharge - Vital Signs Vital signs: Temp Pulse Resp BP Pulse Ox 97.8 F 84 18 189/102 H 98 01/20/19 05:23 01/20/19 05:23 01/20/19 05:23 01/20/19 05:23 01/20/19 05:23 Discharge - Discharge Clinical Impression: Postoperative bleeding from incision Condition: Good Disposition: HOME, SELF-CARE Additional Instructions: You are seen in the emergency department this morning for some minor bleeding from your incision. Was very reassuring and only required some Dermabond to close it shot. The wound healed very well. Her arm was warm and you did have a rash so we are going to treat you for a cellulitis like we did in September. He will take the Keflex every 6 hours for 7 days and you will take the Bactrim 2 t imes per day for 7 days. Please watch for signs of infection like fever, chills, worsening swelling or redness at your arm, red streaks moving up your arm. If you have any other concerns please return to the emergency department for reevaluation. Prescriptions: Cephalexin Monohydrate [Keflex 500 mg Capsule] 500 mg PO Q6H 7 Days capsule Sulfamethoxazole/Trimethoprim [Bactrim Ds Tablet] 1 each PO BID #14 tablet Referrals: СВЕТЛАНА WHEELER MD [Primary Care Provider] - Follow up as needed
== END 2019-01-20 06:15 | disposition home or self-care (01) ==
LOC: ER 05:21
PROC: 0HQDXZZ Repair Right Lower Arm Skin, External Approach (ICD-10-PCS; principal; 2019-01-20)
DX: L76.22 Postprocedural hemorrhage of skin and subcutaneous tissue following other procedure (principal); I12.0 Hypertensive chronic kidney disease with stage 5 chronic kidney disease or end stage renal disease; N18.6 End stage renal disease; Z99.2 Dependence on renal dialysis
CPT/HCPCS: 12002; G0168; 99283

== ENCOUNTER → 2019-05-05 | Outpatient (CLI) | payer MEDICARE ==
--- NOTE | 2019-05-05 21:39 | DRAGON STRESS TEST REPORT ---
Intravenous Lexiscan Cardiolite stress test using single photon emmision computerized tomography. Date of procedure: 05/05/2019. Ordering Provider: Dr. Amanda Dumont. Patient's status: Out Patient Indication: Chest Pain. History of paroxysmal atrial flutter and end-stage renal disease. Preoperative cardiac risk assessment. Coronary risk factors: Age, hypertension, and family history of coronary artery disease. Resting EKG: Sinus Rhythm. Nonspecific T inversion lateral leads. Stress EKG: No changes of ischemia. The patient had no chest pain or discomfort, and no arrhythmias seen. Reason for termination: Protocol. Conclusions: Normal EKG and hemodynamic response to IV Lexiscan. Nuclear data: At rest the patient was given 14.67 millicuries of technetium 99m sestamibi injected intravenously. As per protocol rest non gated SPECT images were obtained. Subsequently the patient was given intravenous Lexiscan at a dose of 0.4 mg in 5 mL intravenously, followed by flush with normal saline. Subsequently the stress dose of 43.3 millicuries of technetium 99m sestamibi was injected intravenously. As per protocol stress gated images were obtained. Nuclear interpretation: Review of images showed that all segments of the myocardium had normal perfusion at rest, and normal perfusion post stress with IV Lexiscan. All segments of the myocardium had normal motion, contraction, and thickening by gated study. T. I D. ratio was normal at 0.00.. There is no transient ischemic dilatation of the left ventricle. Computer read rest, and stress left ventricular ejection fraction were 44 %, and 46 %, respectively. Visually both the stress and rest ejection fractions were normal, and greater than 55%. Conclusion: 1. There is no scintigraphic evidence of Lexiscan induced myocardial ischemia. 2. There is no scintigraphic evidence of myocardial infarction/scar. Recommendations: Aggressive risk factor modification, and treating the underlying co- morbidities. MTDD
== END ==
LOC: RAD 07:01
PROVIDERS: ATTEND Specialist
DX: R07.9 Chest pain, unspecified (principal); I10 Essential (primary) hypertension; Z82.49 Family history of ischemic heart disease and other diseases of the circulatory system
CPT/HCPCS: 93017; 78452; A9500; J2785; Q9969

== ENCOUNTER 2019-06-02 02:22 | Emergency (ER) | payer MEDICARE ==
[2019-06-02] MEDS ORDERED: ASPIRIN 81 MG TABLET, CHEWABLE PO ONE (02:24)
[2019-06-02] MEDS ORDERED: IPRATROPIUM/ALBUTEROL 0.5-2.5 MG/3 ML AMPUL NEB ONE ×2 (02:56→02:57)
--- NOTE | 2019-06-02 02:58 | ER Document Report ---
ED Respiratory Problem - General Chief Complaint: Shortness Of Breath Stated Complaint: CHEST PAIN Time Seen by Provider: 06/02/19 02:48 Primary Care Provider: Juanita BENSON MD [ACTIVE STAFF] - 06/02/19 Notes: Patient is a 58-year-old male that comes emergency department for chief complaint of shortness of breath, wheezing, cough. He states he has had a cough with occasional yellowish productive sputum and some sinus congestion for the past several days, he states during the afternoon he felt short of breath but this resolved, this returned with wheezing tonight. He denies chest pain. He denies fever. He has a history of ESRD on Friday dialysis, missed dialysis on Friday because he was not feeling good, last dialysis was Friday. Patient does admit to current smoking and COPD, he is not on home oxygen, he ran out of the home inhaler he used to have. TRAVEL OUTSIDE OF THE [place] IN LAST 30 DAYS: No - Related Data Allergies/Adverse Reactions: DRY GAMBRO DIALYZERS Allergy (Unknown, Uncoded 06/22/18 04:07) "BP drop, vomiting" PAPER TAPE Allergy (Uncoded 06/22/18 04:07) Rash Past Medical History - General Information source: Patient - Social History Smoking Status: Current Every Day Smoker Chew tobacco use (# tins/day): No Smoking Education Provided: Yes - <3 min Frequency of alcohol use: Occasional Drug Abuse: None Lives with: Family Family History: Reviewed & Not Pertinent, Hypertension Patient has suicidal ideation: No Patient has homicidal ideation: No - Past Medical History Cardiac Medical History: Reports: Hx DVT, Hx Hypercholesterolemia, Hx Hypertensi on Denies: Hx Coronary Artery Disease, Hx Heart Attack Pulmonary Medical History: Reports: Hx Asthma Denies: Hx Bronchitis, Hx COPD, Hx Pneumonia Neurological Medical History: Denies: Hx Cerebrovascular Accident, Hx Seizures Renal/ Medical History: Reports: Hx End Stage Renal Disease, Hx Hemodialysis. Denies: Hx Peritoneal Dialysis Musculoskeletal Medical History: Reports Hx Arthritis - "DAMAGED NERVE TO RIGHT LEG" Psychiatric Medical History: Denies: Hx Depression Past Surgical History: Reports: Hx Neurologic Surgery - Benign brain tumor removed 2010, Hx Vascular Surgery - Right upper arm AV fistula, right and left PermCaths - Immunizations Hx Diphtheria, Pertussis, Tetanus Vaccination: Yes Hx Pneumococcal Vaccination: 02/07/16 Review of Systems - Review of Systems Constitutional: No symptoms reported EENT: No symptoms reported Cardiovascular: No symptoms reported Respiratory: See HPI Gastrointestinal: No symptoms reported Genitourinary: No symptoms reported Male Genitourinary: No symptoms reported Musculoskeletal: No symptoms reported Skin: No symptoms reported Hematologic/Lymphatic: No symptoms reported Neurological/Psychological: No symptoms reported Physical Exam - Vital signs Vitals: Pulse Ox 100 06/02/19 02:24 - Notes Notes: GENERAL: Alert, interacts well. No acute distress. HEAD: Normocephalic, atraumatic. EYES: Pupils equal, round, and reactive to light. Extraocular movements intact. ENT: Oral mucosa moist, tongue midline. Oropharynx unremarkable. Airway patent. NECK: Full range of motion. Supple. Trachea midline. LUNGS: Scattered expiratory wheezes, no tachypnea, no rales, no rhonchi. HEART: Regular rate and rhythm. No murmur ABDOMEN: Soft, non-tender. Non-distended. EXTREMITIES: Moves all 4 extremities spontaneously. No edema, normal radial and dorsalis pedis pulses bilaterally. No cyanosis. BACK: no cervical, thoracic, lumbar midline tenderness. No saddle anesthesia, normal distal neurovascular exam. Moves all extremities in full range of motion. NEUROLOGICAL: Alert and oriented x3. Normal speech. Cranial nerves II through XII grossly intact. PSYCH: Normal affect, normal mood. SKIN: Warm, dry, normal turgor. No rashes or lesions noted. Course - Re-evaluation Re-evalutation: Patient is somewhat borderline. His chest x-ray appears to show mild vascular congestion, he is hypertensive with initial blood pressure in the 190s systolic but this did improve after patient's shortness of breath and wheezing were addressed with duo nebs and steroids, patient became more comfortable and blood pressure came down into the 160s. Potassium is borderline at 5.6. EKG nonspecific. Troponin baseline. General work-up nonspecific otherwise. Patient's presentation is most consistent with COPD exacerbation and need for dialysis but he is only borderline with severity. I discussed with Dr. Parker, recommendations discussed with Dr. Benson patient's diver pumper. 06/02/19 05:[address] Benson, patient's diver pumper. Discussed patient's presentation, work-up. Because patient is borderline, patient will be kept here on the monitor and then transported directly to dialysis, this is Dr. Benson's recommendation. I did discuss with the patient and he states agreement with this plan. Patient will also be provided with inhaler which she is out of and steroids. I did discuss return precautions. Patient states understanding and agreement. - Vital Signs Vital signs: Temp Pulse Resp BP Pulse Ox 98.0 F 80 25 H 186/112 H 88 L 06/02/19 02:29 06/02/19 02:29 06/02/19 04:01 06/02/19 04:00 06/02/19 04:01 - Laboratory Result Diagrams: 06/02/19 02:45 06/02/19 02:45 Laboratory results interpreted by me: 06/02/19 06/02/19 02:45 02:45 RBC 3.34 L Hgb 10.2 L Hct 30.3 L RDW 15.0 H Eos % (Auto) 6.8 H Potassium 5.6 H BUN 72 H Creatinine 22.19 H Est GFR ( Amer) 3 L Est GFR (MDRD) Non-Af 2 L Direct Bilirubin 0.5 H AST 15 L Creatine Kinase 228 H - EKG Interpretation by Me Additional EKG results interpreted by me: EKG shows sinus rhythm at a rate of 72, no T wave inversions or ST segment changes in consecutive leads, QTC of 451. Discharge - Discharge Clinical Impression: Wheezing, COPD exacerbation, Tobacco abuse, Shortness of breath, Hyperkalemia Condition: Stable Disposition: HOME, SELF-CARE Additional Instructions: Your evaluation is consistent with COPD exacerbation, use your albuterol inhaler as prescribed, take the prednisone as prescribed. Your potassium is slightly elevated, there appears to be some fluid on your lungs, I spoke with Dr. Benson, you are being transported directly to dialysis to have this performed because need dialysis this morning. Come back if you are worse including difficulty breathing, fever, or any other concerning or worsening symptoms. Prescriptions: Prednisone [Deltasone 20 mg Tablet] 3 tab PO DAILY 5 Days tablet Albuterol Sulfate [Proair HFA Inhalation Aerosol 8.5 gm MDI] 2 puff IH Q4H PRN #1 [id number] PRN Reason: Referrals: Juanita BENSON MD [ACTIVE STAFF] - 06/02/19
[2019-06-02 03:00] LABS: ABSOLUTE EOSINOPHILS # (AUTO) 0.4 10^3/uL (0.0-0.6); ABSOLUTE LYMPHOCYTES (AUTO) 1.1 10^3/uL (0.5-4.7); ABSOLUTE MONOCYTES (AUTO) 0.5 10^3/uL (0.1-1.4); ABSOLUTE NEUT (AUTO) 3.9 10^3/uL (1.7-8.2); BASOPHILS % (AUTO) 0.4 % (0-2); EOSINOPHILS % (AUTO) 6.8 % (0-6); HEMATOCRIT 30.3 % (37.9-51.0); HEMOGLOBIN 10.2 g/dL (13.5-17.0); LYMPHOCYTES % (AUTO) 18.8 % (13-45); MEAN CORPUSCULAR HEMOGLOBIN 30.4 pg (27.0-33.4); MEAN CORPUSCULAR HGB CONC 33.5 g/dL (32.0-36.0); MEAN CORPUSCULAR VOLUME 91 fl (80-97); PLATELET COUNT 166 10^3/uL (150-450); RED BLOOD COUNT 3.34 10^6/uL (4.35-5.55); TOTAL CELLS COUNTED % (AUTO) 100 %; WHITE BLOOD COUNT 5.9 10^3/uL (4.0-10.5)
--- NOTE | 2019-06-02 03:08 | RADIOLOGY REPORT (SQ) ---
EXAM DESCRIPTION: XR CHEST 1 VIEW COMPLETED DATE/TME: 06/02/2019 02:24 CLINICAL HISTORY: 58 years Male, chest pain COMPARISON: None. NUMBER OF VIEWS/TECHNIQUE: 1/AP FINDINGS: Moderate mixed interstitial and airspace opacities. Adequate appearing left jugular central line. Atherosclerotic vascular disease. Adequate lung volume, mildly enlarged cardiac silhouette, and intact bony thorax. IMPRESSION: Moderate mixed interstitial and airpace opacities. Differential diagnosis includes pulmonary edema, multifocal pneumonia, and chronic interstitial lung disease.
[2019-06-02] MEDS ORDERED: ASPIRIN 325 MG TABLET ONE (03:11)
[2019-06-02 03:17] LABS: ALBUMIN 4.1 g/dL (3.5-5.0); ALKALINE PHOSPHATASE 61 U/L (38-126); ANION GAP 17 (5-19); ASPARTATE AMINO TRANSFERASE 15 U/L (17-59); BILIRUBIN,DIRECT 0.5 mg/dL (0.0-0.4); BILIRUBIN,TOTAL 0.6 mg/dL (0.2-1.3); BLOOD UREA NITROGEN 72 mg/dL (7-20); CALCIUM 9.4 mg/dL (8.4-10.2); CARBON DIOXIDE 22 mmol/L (22-30); CHLORIDE 99 mmol/L (98-107); CREATINE KINASE 228 U/L (55-170); GLUCOSE 88 mg/dL (75-110); POTASSIUM 5.6 mmol/L (3.6-5.0); TOTAL PROTEIN 7.6 g/dL (6.3-8.2)
[2019-06-02 03:28] LABS: CREATINE KINASE MB 1.97 ng/mL (<4.55)
[2019-06-02 03:35] LABS: TROPONIN I 0.098 ng/mL
[2019-06-02] MEDS ORDERED: METHYLPREDNISOLONE INJ 125 MG/2 ML SDV IV ONE (04:42)
[2019-06-02] MEDS ORDERED: ALBUTEROL SULFATE HFA (90 MCG/PUFF) 8 GM MDI (1 MDI/ER DISP) IH ONE (05:56)
[2019-06-02 06:43] VITALS: BP 169/138
--- NOTE | 2019-06-02 11:02 | EKG REPORT ---
SEVERITY:- ABNORMAL ECG - SINUS RHYTHM LEFT ATRIAL ABNORMALITY ABNORMAL T, CONSIDER ISCHEMIA, LATERAL LEADS : Confirmed by: Ana Hagan 02-Jun-2019 11:02:06
== END 2019-06-02 06:49 | disposition home or self-care (01) ==
LOC: ER 02:22
DX: J44.1 Chronic obstructive pulmonary disease with (acute) exacerbation (principal); R06.2 Wheezing; R06.02 Shortness of breath; E87.5 Hyperkalemia; R05 Cough; R09.81 Nasal congestion; F17.200 Nicotine dependence, unspecified, uncomplicated; I10 Essential (primary) hypertension
CPT/HCPCS: 93005; 94640 ×2; 99285; 96374; 36415; 82553; 82550; 85025; 80053; 84484; 71045; 93010; J2930; J3490; A9270; J7620

== ENCOUNTER 2019-06-13 20:12 | Emergency (ER) | payer MEDICARE ==
[2019-06-13] MEDS ORDERED: ASPIRIN 81 MG TABLET, CHEWABLE PO ONE (20:32)
--- NOTE | 2019-06-13 20:32 | ER Document Report ---
ED Medical Screen (RME) - General Stated Complaint: CHEST PAIN/SHORTNESS OF BREATH Time Seen by Provider: 06/13/19 20:29 Primary Care Provider: СВЕТЛАНА WHEELER MD [Primary Care Provider] - Follow up as needed Mode of Arrival: Ambulatory Information source: Patient Notes: This 58-year-old male with history of dialysis and high blood pressure presents today with right-sided chest pain. Reports the chest pain comes and goes and made him nauseated and short of breath. Reports that started this afternoon around noon when he was just taking trash to the dump. Denies history of cardiac disease. I have greeted and performed a rapid initial assessment of this patient. A comprehensive ED assessment and evaluation of the patient, analysis of test results and completion of the medical decision making process will be conducted by additional ED providers. Dictation of this chart was performed using voice recognition software; therefore, there may be some unintended grammatical errors. TRAVEL OUTSIDE OF THE [place] IN LAST 30 DAYS: No - Related Data Allergies/Adverse Reactions: DRY GAMBRO DIALYZERS Allergy (Unknown, Uncoded 06/22/18 04:07) "BP drop, vomiting" PAPER TAPE Allergy (Uncoded 06/22/18 04:07) Rash Past Medical History - Past Medical History Cardiac Medical History: Reports: Hx DVT, Hx Hypercholesterolemia, Hx Hypertension Denies: Hx Coronary Artery Disease, Hx Heart Attack Pulmonary Medical History: Reports: Hx Asthma Denies: Hx Bronchitis, Hx COPD, Hx Pneumonia Neurological Medical History: Denies: Hx Cerebrovascular Accident, Hx Seizures Renal/ Medical History: Reports: Hx End Stage Renal Disease, Hx Hemodialysis. Denies: Hx Peritoneal Dialysis Musculoskeltal Medical History: Reports Hx Arthritis - "DAMAGED NERVE TO RIGHT LEG" Psychiatric Medical History: Denies: Hx Depression Past Surgical History: Reports: Hx Neurologic Surgery - Benign brain tumor removed 2010, Hx Vascular Surgery - Right upper arm AV fistula, right and left PermCaths - Immunizations Hx Diphtheria, Pertussis, Tetanus Vaccination: Yes Physical Exam - Vital signs Vitals: Temp Pulse Resp BP Pulse Ox 99.2 F 90 28 H 179/100 H 96 06/13/19 20:27 06/13/19 20:27 06/13/19 20:27 06/13/19 20:27 06/13/19 20:27 Course - Vital Signs Vital signs: Temp Pulse Resp BP Pulse Ox 99.2 F 90 28 H 179/100 H 96 06/13/19 20:27 06/13/19 20:27 06/13/19 20:27 06/13/19 20:27 06/13/19 20:27 Doctor's Discharge - Discharge Referrals: СВЕТЛАНА WHEELER MD [Primary Care Provider] - Follow up as needed
[2019-06-13 21:06] LABS: ABSOLUTE BASOPHILS # (AUTO) 0.1 10^3/uL (0.0-0.2); ABSOLUTE EOSINOPHILS # (AUTO) 0.1 10^3/uL (0.0-0.6); ABSOLUTE LYMPHOCYTES (AUTO) 0.5 10^3/uL (0.5-4.7); ABSOLUTE MONOCYTES (AUTO) 0.7 10^3/uL (0.1-1.4); ABSOLUTE NEUT (AUTO) 7.3 10^3/uL (1.7-8.2); BASOPHILS % (AUTO) 0.8 % (0-2); EOSINOPHILS % (AUTO) 1.3 % (0-6); HEMATOCRIT 30.4 % (37.9-51.0); HEMOGLOBIN 10.1 g/dL (13.5-17.0); LYMPHOCYTES % (AUTO) 6.2 % (13-45); MEAN CORPUSCULAR HEMOGLOBIN 30.3 pg (27.0-33.4); MEAN CORPUSCULAR HGB CONC 33.1 g/dL (32.0-36.0); MEAN CORPUSCULAR VOLUME 92 fl (80-97); MONOCYTES % (AUTO) 7.7 % (3-13); PLATELET COUNT 186 10^3/uL (150-450); RED BLOOD COUNT 3.32 10^6/uL (4.35-5.55); RED CELL DISTRIBUTION WIDTH 14.9 % (11.5-14.0); TOTAL CELLS COUNTED % (AUTO) 100 %; WHITE BLOOD COUNT 8.7 10^3/uL (4.0-10.5)
[2019-06-13 21:23] LABS: ALBUMIN 4.2 g/dL (3.5-5.0); ALKALINE PHOSPHATASE 58 U/L (38-126); ANION GAP 18 (5-19); ASPARTATE AMINO TRANSFERASE 16 U/L (17-59); BILIRUBIN,DIRECT 0.4 mg/dL (0.0-0.4); BILIRUBIN,TOTAL 0.8 mg/dL (0.2-1.3); BLOOD UREA NITROGEN 53 mg/dL (7-20); CALCIUM 9.1 mg/dL (8.4-10.2); CARBON DIOXIDE 22 mmol/L (22-30); CHLORIDE 99 mmol/L (98-107); CREATINE KINASE 146 U/L (55-170); GLUCOSE 91 mg/dL (75-110); POTASSIUM 5.2 mmol/L (3.6-5.0); TOTAL PROTEIN 7.6 g/dL (6.3-8.2)
[2019-06-13 21:35] LABS: CREATINE KINASE MB 1.59 ng/mL (<4.55); TROPONIN I 0.112 ng/mL
--- NOTE | 2019-06-13 21:49 | RADIOLOGY REPORT (SQ) ---
EXAM DESCRIPTION: XR CHEST 2 VIEWS COMPLETED DATE/TME: 06/13/2019 20:32 CLINICAL HISTORY: 58 years, Male, cp EXAM DESCRIPTION: CLINICAL HISTORY: cp COMPARISON: 06/02/2019 FINDINGS: Two views of the chest are submitted. Cardiac silhouette appears moderately enlarged. There is worsened bilateral pulmonary edema. Underlying mass lesions are not excluded. Inflammatory component or neoplastic component are possible. Central catheter tip is in right atrium. IMPRESSION: Worsening pulmonary edema and possible evolving consolidations or masses. Follow-up is recommended.
[2019-06-13] MEDS ORDERED: FUROSEMIDE INJ/PF 20 MG/2 ML SDV IV ONE (22:07)
[2019-06-13] MEDS ORDERED: CALCIUM GLUCONATE 1000 MG/10 ML INJ IV ONE (23:22)
[2019-06-13] MEDS ORDERED: INSULIN REG, HUMAN 100 UNIT/ML 3 ML VIAL (PYX) IV ONE (23:22)
[2019-06-13] MEDS ORDERED: DEXTROSE 50%-WATER 25 GM/50 ML DISP.SYRIN IV ONE (23:22)
--- NOTE | 2019-06-13 23:36 | ER Document Report ---
ED General - General Chief Complaint: Shortness Of Breath Stated Complaint: CHEST PAIN/SHORTNESS OF BREATH Time Seen by Provider: 06/13/19 20:29 Primary Care Provider: СВЕТЛАНА WHEELER MD [Primary Care Provider] - Follow up as needed Mode of Arrival: Ambulatory TRAVEL OUTSIDE OF THE [place] IN LAST 30 DAYS: No - HPI Notes: This is a 58-year-old gentleman with a history of end-stage renal disease who gets dialysis on Friday, Friday, Friday who presents with a complaint of shortness of breath for the past day. Patient describes exertional dyspnea. He also complains of a slight nonproductive cough. Dyspnea is worse with exertion. He denies any chest pain. He denies any fever or chills. Describes his symptoms as moderate. - Related Data Allergies/Adverse Reactions: DRY GAMBRO DIALYZERS Allergy (Unknown, Uncoded 06/22/18 04:07) "BP drop, vomiting" PAPER TAPE Allergy (Uncoded 06/22/18 04:07) Rash Past Medical History - General Information source: Patient - Social History Smoking Status: Current Every Day Smoker Chew tobacco use (# tins/day): No Frequency of alcohol use: None Drug Abuse: None Family History: Reviewed & Not Pertinent, Hypertension Patient has suicidal ideation: No Patient has homicidal ideation: No - Past Medical History Cardiac Medical History: Reports: Hx DVT, Hx Hypercholesterolemia, Hx Hypertension Denies: Hx Coronary Artery Disease, Hx Heart Attack Pulmonary Medical History: Reports: Hx Asthma Denies: Hx Bronchitis, Hx COPD, Hx Pneumonia Neurological Medical History: Denies: Hx Cerebrovascular Accident, Hx Seizures Renal/ Medical History: Reports: Hx End Stage Renal Disease, Hx Hemodialysis. Denies: Hx Peritoneal Dialysis Musculoskeletal Medical History: Reports Hx Arthritis - "DAMAGED NERVE TO RIGHT LEG" Psychiatric Medical History: Denies: Hx Depression Past Surgical History: Reports: Hx Neurologic Surgery - Benign brain tumor removed 2010, Hx Vascular Surgery - Right upper arm AV fistula, right and left PermCaths - Immunizations Hx Diphtheria, Pertussis, Tetanus Vaccination: Yes Hx Pneumococcal Vaccination: 02/07/16 Review of Systems - Review of Systems Cardiovascular: denies: Chest pain, Palpitations Respiratory: Cough, Short of breath Gastrointestinal: denies: Abdomen distended, Abdominal pain Neurological/Psychological: denies: Headaches -: Yes All other systems reviewed and negative Physical Exam - Vital signs Vitals: Temp Pulse Resp BP Pulse Ox 99.2 F 90 28 H 179/100 H 96 06/13/19 20:27 06/13/19 20:27 06/13/19 20:27 06/13/19 20:27 06/13/19 20:27 - General General appearance: Appears well, Alert - Respiratory Respiratory status: No respiratory distress Chest status: Nontender Breath sounds: Rales Chest palpation: Normal - Cardiovascular Rhythm: Regular Heart sounds: Normal auscultation Murmur: No - Abdominal Inspection: Normal Distension: No distension Bowel sounds: Normal Tenderness: Nontender Organomegaly: No organomegaly - Neurological Neuro grossly intact: Yes Cognition: Normal Orientation: AAOx4 Mili Coma Scale Eye Opening: Spontaneous [place] Coma Scale Verbal: Oriented [place] Coma Scale Motor: Obeys Commands Mili Coma Scale Total: 15 Speech: Normal Motor strength normal: LUE, RUE, LLE, RLE Sensory: Normal - Psychological Associated symptoms: Normal affect, Normal mood - Skin Skin Temperature: Warm Skin Moisture: Dry Skin Color: Normal Course - Re-evaluation Re-evalutation: 06/13/19 23:34 Differential diagnosis includes CHF versus pneumonia. EKG shows sinus tach 100 bpm. Left atrial abnormality. No acute injury pattern. Chest x-ray shows pulmonary edema. Patient also has slightly elevated potassium. Given his renal failure, I will treat. Patient tells me he makes urine. We will give him Lasix. Will admit. Patient's care discussed with Dr. Lee. Recommends ICU admission to Dr. Wheeler's service. Will admit to Dr. Wheeler service. 06/13/19 23:36 06/14/19 00:28 I am told by the charge nurse that we did not have dialysis beds here as a patient will be to be transferred. He wants to go to [facility]. [id number] Patient's care discussed with Dr. Khai Franco. He accepts transfer. 06/14/19 01:16 Patient became very diaphoretic. I went to reassess the patient. Blood pressure is elevated. He tells me he takes clonidine for his blood pressure. He denies any chest pain or dyspnea. He states he just needs to cool off a little bit. Repeat EKG done. EKG shows sinus rhythm at 88 bpm. No acute injury pattern. 06/14/19 03:05 Pt is doing well. NO complaints. Stable for transfer. - Vital Signs Vital signs: Temp Pulse Resp BP Pulse Ox 98.7 F 90 22 H 166/91 H 96 06/13/19 22:07 06/13/19 20:27 06/14/19 02:01 06/14/19 02:01 06/14/19 02:01 - Laboratory Result Diagrams: 06/13/19 20:50 06/13/19 20:50 Laboratory results interpreted by me: 06/13/19 06/13/19 20:50 20:50 RBC 3.32 L Hgb 10.1 L Hct 30.4 L RDW 14.9 H Lymph % (Auto) 6.2 L Seg Neutrophils % 84.0 H Potassium 5.2 H BUN 53 H Creatinine 14.78 H Est GFR ( Amer) 4 L Est GFR (MDRD) Non-Af 3 L AST 16 L Discharge - Discharge Clinical Impression: Hyperkalemia, End stage renal disease Acute CHF (congestive heart failure) Qualifiers: Heart failure type: unspecified Qualified Code(s): I50.9 - Heart failure, unspecified Condition: Stable Disposition: ADMITTED INPATIENT Admitting Provider: Riddhi Unit Admitted: ICU Referrals: СВЕТЛАНА WHEELER MD [Primary Care Provider] - Follow up as needed
[2019-06-14 02:20] VITALS: BP 166/91
--- NOTE | 2019-06-14 07:27 | EKG REPORT ---
SEVERITY:- ABNORMAL ECG - SINUS TACHYCARDIA LEFT ATRIAL ABNORMALITY NONSPECIFIC T ABNORMALITIES, LATERAL LEADS UNCHANGED FROM 06/02/19 EKG : Confirmed by: Sina Trejo MD 14-Jun-2019 07:26:49
--- NOTE | 2019-06-15 07:45 | EKG REPORT ---
SEVERITY:- ABNORMAL ECG - SINUS RHYTHM LEFT ATRIAL ABNORMALITY ABNORMAL T, CONSIDER ISCHEMIA, LATERAL LEADS : Confirmed by: Sina Trejo MD 15-Jun-2019 07:45:02
== END 2019-06-14 02:32 | disposition other institution (70) ==
LOC: ER 20:12 → EH 23:48 → UNDOADMIN 23:48 → EH 06-14 02:31
DX: E87.5 Hyperkalemia (principal); I13.2 Hypertensive heart and chronic kidney disease with heart failure and with stage 5 chronic kidney disease, or end stage renal disease; I50.9 Heart failure, unspecified; N18.6 End stage renal disease; Z99.2 Dependence on renal dialysis; R07.9 Chest pain, unspecified; R61 Generalized hyperhidrosis; R06.02 Shortness of breath; F17.200 Nicotine dependence, unspecified, uncomplicated
CPT/HCPCS: 93005; 36415; 82553; 82550; 85025; 80053; 84484; 71046; 93010; A9270 ×2; J0610; J3490; J1940; 96374; 96375; 99285; J1815

== ENCOUNTER 2019-08-04 21:11 | Inpatient (IN) | payer MEDICARE ==
[2019-08-04 21:37] LABS: ABSOLUTE BASOPHILS # (AUTO) 0.1 10^3/uL (0.0-0.2); ABSOLUTE EOSINOPHILS # (AUTO) 0.5 10^3/uL (0.0-0.6); ABSOLUTE LYMPHOCYTES (AUTO) 1.9 10^3/uL (0.5-4.7); ABSOLUTE MONOCYTES (AUTO) 0.7 10^3/uL (0.1-1.4); BASOPHILS % (AUTO) 1.2 % (0-2); EOSINOPHILS % (AUTO) 6.8 % (0-6); HEMATOCRIT 31.2 % (37.9-51.0); HEMOGLOBIN 10.6 g/dL (13.5-17.0); LYMPHOCYTES % (AUTO) 26.5 % (13-45); MEAN CORPUSCULAR HEMOGLOBIN 30.8 pg (27.0-33.4); MEAN CORPUSCULAR HGB CONC 33.9 g/dL (32.0-36.0); MEAN CORPUSCULAR VOLUME 91 fl (80-97); MONOCYTES % (AUTO) 9.4 % (3-13); PLATELET COUNT 175 10^3/uL (150-450); RED BLOOD COUNT 3.43 10^6/uL (4.35-5.55); RED CELL DISTRIBUTION WIDTH 16.7 % (11.5-14.0); SEGMENTED NEUTROPHILS % (AUTO) 56.1 % (42-78); TOTAL CELLS COUNTED % (AUTO) 100 %; WHITE BLOOD COUNT 7.2 10^3/uL (4.0-10.5)
[2019-08-04 21:47] LABS: ALBUMIN 4.1 g/dL (3.5-5.0); ALKALINE PHOSPHATASE 61 U/L (38-126); ANION GAP 17 (5-19); ASPARTATE AMINO TRANSFERASE 17 U/L (17-59); BILIRUBIN,DIRECT 0.4 mg/dL (0.0-0.4); BILIRUBIN,TOTAL 0.7 mg/dL (0.2-1.3); BLOOD UREA NITROGEN 52 mg/dL (7-20); CALCIUM 8.9 mg/dL (8.4-10.2); CARBON DIOXIDE 23 mmol/L (22-30); CHLORIDE 101 mmol/L (98-107); GLUCOSE 91 mg/dL (75-110); POTASSIUM 5.1 mmol/L (3.6-5.0); TOTAL PROTEIN 7.6 g/dL (6.3-8.2)
--- NOTE | 2019-08-04 22:27 | RADIOLOGY REPORT (SQ) ---
EXAM DESCRIPTION: XR CHEST 1 VIEW COMPLETED DATE/TME: 08/04/2019 00:00 CLINICAL HISTORY: 58 years, Male, SOB, missed dialysis, productive cough COMPARISON: 06/13/2019 chest NUMBER OF VIEWS: 1 TECHNIQUE: Portable chest LIMITATIONS: None. FINDINGS: The heart is enlarged but stable. Central venous catheter in place. Mild pulmonary vascular congestion. Minimal bilateral perihilar infiltrate. No pneumothorax IMPRESSION: Mild pulmonary vascular congestion with perihilar infiltrates. copyright 2010 [employer]- All Rights Reserved
[2019-08-04] MEDS ORDERED: CLONIDINE HCL 0.2 MG TABLET PO ONE (22:56)
[2019-08-04] MEDS ORDERED: METOPROLOL SUCCINATE 25 MG TAB.SR.24H PO ONE (22:56)
--- NOTE | 2019-08-04 23:35 | EKG REPORT ---
SEVERITY:- ABNORMAL ECG - SINUS RHYTHM LEFT ATRIAL ABNORMALITY NONSPECIFIC T ABNORMALITIES, LATERAL LEADS BORDERLINE PROLONGED QT INTERVAL : Confirmed by: Ana Hagan 04-Aug-2019 23:33:53
--- NOTE | 2019-08-04 23:51 | ER Document Report ---
ED General - General Chief Complaint: Shortness Of Breath Stated Complaint: SHORTNESS OF BREATH Time Seen by Provider: 08/04/19 21:41 Primary Care Provider: СВЕТЛАНА WHEELER MD [Primary Care Provider] - Follow up as needed TRAVEL OUTSIDE OF THE [place] IN LAST 30 DAYS: No - HPI Notes: Patient is a 58-year-old male with a history of end-stage renal disease, hypertension, and long-standing medication noncompliance who presents emergency department for evaluation of dyspnea. He states his been coughing, intimately productive. He said some low-grade fevers. No nausea or vomiting. He also states he is feeling short of breath. He is normally on Friday dialysis candidate. He went to dialysis on Friday preemptively because of the holiday. He states he was unable to find a dialysis center today. On further questioning the patient admits that he is blood pressure has been very high. He states he has not taken any of his medication in nearly a month. - Related Data Allergies/Adverse Reactions: DRY GAMBRO DIALYZERS Allergy (Unknown, Uncoded 06/22/18 04:07) "BP drop, vomiting" PAPER TAPE Allergy (Uncoded 06/22/18 04:07) Rash Home Medications: Pt states, "I take something for my blood pressure." Past Medical History - General Information source: Patient, [facility] Records - Social History Smoking Status: Current Some Day Smoker Family History: Reviewed & Not Pertinent, Hypertension Patient has suicidal ideation: No Patient has homicidal ideation: No - Past Medical History Cardiac Medical History: Reports: Hx DVT, Hx Hypercholesterolemia, Hx Hypertension Denies: Hx Coronary Artery Disease, Hx Heart Attack Pulmonary Medical History: Reports: Hx Asthma, Hx COPD Denies: Hx Bronchitis, Hx Pneumonia Neurological Medical History: Denies: Hx Cerebrovascular Accident, Hx Seizures Renal/ Medical History: Reports: Hx End Stage Renal Disease, Hx Hemodialysis. Denies: Hx Peritoneal Dialysis Musculoskeletal Medical History: Reports Hx Arthritis - "DAMAGED NERVE TO RIGHT LEG" Psychiatric Medical History: Denies: Hx Depression Past Surgical History: Reports: Hx Neurologic Surgery - Benign brain tumor rem clemente 2010, Hx Vascular Surgery - Right upper arm AV fistula, right and left PermCaths - Immunizations Hx Diphtheria, Pertussis, Tetanus Vaccination: Yes Hx Pneumococcal Vaccination: 02/07/16 Review of Systems - Review of Systems Constitutional: No symptoms reported EENT: No symptoms reported Cardiovascular: No symptoms reported Respiratory: See HPI Gastrointestinal: No symptoms reported Genitourinary: No symptoms reported Musculoskeletal: No symptoms reported Skin: No symptoms reported Neurological/Psychological: No symptoms reported Physical Exam - Vital signs Vitals: Temp Resp BP Pulse Ox 98.3 F 30 H 195/114 H 98 08/04/19 21:15 08/04/19 21:15 08/04/19 21:15 08/04/19 21:15 - Notes Notes: Is a 58-year-old male who appears his stated age in no acute distress. Vital signs reviewed, please refer to chart. Head is normocephalic, atraumatic. Pupils equal round, reactive to light. Neck is supple without meningismus. Heart is regular rate and rhythm. Lungs reveal anterior wheezes with diminished breath sounds in the bases bilaterally. Abdomen is soft, nontender, normoactive bowel sounds throughout. Extremities without cyanosis, clubbing. Right upper extremity chronically edematous. Posterior calves are nontender. Peripheral pulses are equal. Skin is warm and dry. Patient is awake, alert, neurological exam is nonfocal. Course - Re-evaluation Re-evalutation: 08/04/19 23:53 Patient presents emergency department for evaluation. He was significantly tachypneic with some anterior wheezing, but this improved. He does have a history of COPD and smoking. He had laboratory investigations, EKG, chest x-ray ordered. Chest x-ray reveals pulmonary vascular congestion. EKG shows a small increase and peaked T waves as compared to prior study. His potassium is remained 5.1. His blood pressure is markedly elevated, I did go ahead and order his metoprolol and clonidine to be given. I am concerned that this patient will need dialysis sooner rather than later. There are no outpatient dialysis facilities open tomorrow. I spoke with Dr. Benson, who is agreeable to dialyzing the patient tomorrow. Awaiting phone call back from [facility]. 08/05/19 00:00 08/05/19 00:[address] Garcia, on for Dr. Wheeler, and he will admit the patient. - Vital Signs Vital signs: Temp Pulse Resp BP Pulse Ox 98.1 F 20 190/103 H 92 08/04/19 23:00 08/04/19 23:00 08/04/19 23:00 08/04/19 23:00 - Laboratory Result Diagrams: 08/04/19 21:15 08/04/19 21:15 Laboratory results interpreted by me: 08/04/19 08/04/19 21:15 21:15 RBC 3.43 L Hgb 10.6 L Hct 31.2 L RDW 16.7 H Eos % (Auto) 6.8 H Potassium 5.1 H BUN 52 H Creatinine 19.41 H Est GFR ( Amer) 3 L Est GFR (MDRD) Non-Af 2 L - Diagnostic Test Radiology reviewed: Reports reviewed Radiology results interpreted by me: 08/04/19 23:54 Chest X-Ray 08/04/19 00:00 IMPRESSION: Mild pulmonary vascular congestion with perihilar infiltrates. copyright 2010 [employer]- All Rights Reserved - EKG Interpretation by Me Additional EKG results interpreted by me: 08/04/19 23:54 Sinus mechanism with a rate of 93 bpm. Normal axis and intervals. Nonspecific ST changes, but no acute elevation concerning for infarction. There is slight peak and T waves anteriorly when compared to prior study. Discharge - Discharge Clinical Impression: Hypertension, End-stage renal disease on hemodialysis, Non-compliance, Acute hyperkalemia Condition: Stable Disposition: ADMITTED INPATIENT Admitting Provider: Riddhi Garcia covering Unit Admitted: IMCU Referrals: СВЕТЛАНА WHEELER MD [Primary Care Provider] - Follow up as needed
[2019-08-05] MEDS ORDERED: ACETAMINOPHEN 325 MG TABLET PO PRN ×2 (00:02→12:04)
[2019-08-05 01:04] LABS: ANION GAP 18 (5-19); BLOOD UREA NITROGEN 53 mg/dL (7-20); CALCIUM 8.9 mg/dL (8.4-10.2); CARBON DIOXIDE 20 mmol/L (22-30); CHLORIDE 101 mmol/L (98-107); GLUCOSE 125 mg/dL (75-110); POTASSIUM 4.8 mmol/L (3.6-5.0)
[2019-08-05] MEDS: CLONIDINE HCL 0.1 MG TABLET PO SCH ×3 (05:50→22:00)
[2019-08-05] MEDS ORDERED: METHYLPREDNISOLONE INJ 40 MG/1 ML SDV IV SCH (06:00)
[2019-08-05] MEDS: IPRATROPIUM/ALBUTEROL 0.5-2.5 MG/3 ML AMPUL NEB SCH ×3 (09:03→20:01)
[2019-08-05] MEDS ORDERED: METOPROLOL SUCCINATE 25 MG TAB.SR.24H PO SCH (10:00)
--- NOTE | 2019-08-05 10:15 | PDOC H&P ---
History of Present Illness Admission Date/PCP: 08/05/19 00:08 СВЕТЛАНА WHEELER MD Patient complains of: Shortness of breath History of Present Illness: OLINDA OCAMPO is a 58 year old male Is a 58-year-old male with the patient of Dr. Wheeler with a history of the hypertension end-stage renal disease on hemodialysis chronic atrial flutter fibrillations and multiple other comorbidity very noncompliance not taking the medicines for several weeks and also missed her dialysis came to the emergency department with a complaining of her shortness of the breath and increased the cough. According to the patient she does not feel good or is correct had his puncture not sure what the story but he did not go for dialysis on Friday and patient started feeling bad came to the emergency department last night with increasing short of breath where patient's electrolytes were stable but chest x-ray showed vascular congestion's Patients definitely symptoms related to the missed dialysis with the patient is a chronic smoker with mild COPD patients when I saw it in her dialysis currently doing well . Patient's blood pressure was elevated because patient was not taking any medications for almost a several weeks. Patient was admitting in the [facility] for the same problem because of the missed dialysis on noncompliance a couple of months back Patient's currently denied any chest pain no fever no chills Patient received IV Solu-Medrol in the ER patient also have a handicap dialysis daughter at home and the usually go together for the dialysis. She will also see Dr. SAENZ for the chronic A. fib and taking some blood thinner but not sure which one Past Medical History Cardiac Medical History: Reports: DVT, Hyperlipidema, Hypertension Denies: Coronary Artery Disease, Myocardial Infarction Pulmonary Medical History: Reports: Asthma, Chronic Obstructive Pulmonary Disease (COPD) Denies: Bronchitis, Pneumonia Neurological Medical History: Denies: Seizures Renal/ Medical History: Reports: End Stage Renal Disease Musculoskeltal Medical History: Reports: Arthritis - "DAMAGED NERVE TO RIGHT LEG" Psychiatric Medical History: Denies: Depression Hematology: Denies: Anemia Past Surgical History Past Surgical History: Reports: Vascular Surgery - Right upper arm AV fistula, right and left PermCaths Social History Smoking Status: Current Some Day Smoker Cigarettes Packs Per Day: 0.2 Electronic Cigarette use?: No Number of Years Smokin Last Time Smoked: 08/02/19 Frequency of Alcohol Use: Rare Hx Recreational Drug Use: No Drugs: None Hx Prescription Drug Abuse: No - Advance Directive Resuscitation Status: Full Code Family History Family History: Reviewed & Not Pertinent, Hypertension Parental Family History Reviewed: Yes Children Family History Reviewed: Yes Sibling(s) Family History Reviewed.: Yes Medication/Allergy Allergies/Adverse Reactions: DRY GAMBRO DIALYZERS Allergy (Unknown, Uncoded 06/22/18 04:07) "BP drop, vomiting" PAPER TAPE Allergy (Uncoded 06/22/18 04:07) Rash Review of Systems Constitutional: ABSENT: chills, fever(s), headache(s), weight gain, weight loss Eyes: ABSENT: visual disturbances Ears: ABSENT: hearing changes Cardiovascular: ABSENT: chest pain, dyspnea on exertion, edema, orthropnea, palpitations Respiratory: PRESENT: cough, dyspnea. ABSENT: hemoptysis Gastrointestinal: ABSENT: abdominal pain, constipation, diarrhea, hematemesis, hematochezia, nausea, vomiting Genitourinary: ABSENT: dysuria, hematuria Musculoskeletal: ABSENT: joint swelling Integumentary: ABSENT: rash, wounds Neurological: ABSENT: abnormal gait, abnormal speech, confusion, dizziness, focal weakness, syncope Psychiatric: ABSENT: anxiety, depression, homidical ideation, suicidal ideation Endocrine: ABSENT: cold intolerance, heat intolerance, menstrual abnormalities, polydipsia, polyuria Hematologic/Lymphatic: ABSENT: easy bleeding, easy bruising, lymphadenopathy Physical Exam Vital Signs: Temp Pulse Resp BP Pulse Ox 98.2 F 65 16 141/72 H 97 08/05/19 08:04 08/05/19 08:04 08/05/19 08:04 08/05/19 08:04 08/05/19 08:04 Intake & Output 08/04/19 08/05/19 08/06/19 06:59 06:59 06:59 Intake Total 350 Output Total 0 Balance 350 Weight 96.4 kg General appearance: PRESENT: no acute distress, well-developed, well-nourished Head exam: PRESENT: atraumatic, normocephalic Eye exam: PRESENT: conjunctiva pink, EOMI, PERRLA. ABSENT: scleral icterus Ear exam: PRESENT: normal external ear exam Mouth exam: PRESENT: moist, tongue midline Neck exam: PRESENT: full ROM. ABSENT: carotid bruit, JVD, lymphadenopathy, thyromegaly Respiratory exam: PRESENT: clear to auscultation dave Cardiovascular exam: PRESENT: RRR. ABSENT: diastolic murmur, rubs, systolic murmur Pulses: PRESENT: normal dorsalis pedis pul, +2 pedal pulses bilateral Vascular exam: PRESENT: normal capillary refill GI/Abdominal exam: PRESENT: normal bowel sounds, soft. ABSENT: distended, guarding, mass, organolmegaly, rebound, tenderness Rectal exam: PRESENT: deferred Musculoskeletal exam: PRESENT: ambulatory Neurological exam: PRESENT: alert, awake, oriented to person, oriented to place, oriented to time, oriented to situation, CN II-XII grossly intact. ABSENT: motor sensory deficit Psychiatric exam: PRESENT: appropriate affect, normal mood. ABSENT: homicidal ideation, suicidal ideation Skin exam: PRESENT: dry, intact, warm. ABSENT: cyanosis, rash Results Laboratory Results: 08/04/19 21:15 08/05/19 00:28 08/04/19 08/04/19 08/05/19 21:15 21:15 00:28 WBC 7.2 RBC 3.43 L Hgb 10.6 L Hct 31.2 L MCV 91 MCH 30.8 MCHC 33.9 RDW 16.7 H Plt Count 175 Seg Neutrophils % 56.1 Sodium 141.3 139.4 Potassium 5.1 H 4.8 Chloride 101 101 Carbon Dioxide 23 20 L Anion Gap 17 18 BUN 52 H 53 H Creatinine 19.41 H 19.77 H Est GFR ( Amer) 3 L 3 L Glucose 91 125 H Calcium 8.9 8.9 Total Bilirubin 0.7 AST 17 Alkaline Phosphatase 61 Total Protein 7.6 Albumin 4.1 Impressions: Chest X-Ray 08/04/19 00:00 IMPRESSION: Mild pulmonary vascular congestion with perihilar infiltrates. copyright 2010 [employer] [facility] [employer]- All Rights Reserved Assessment & Plan - Diagnosis (1) Shortness of breath Is this a current diagnosis for this admission?: Yes Plan: Most likely related to the vascular conditions from the missing the dialysis (2) End-stage renal disease on hemodialysis Is this a current diagnosis for this admission?: Yes Plan: Dr. Benson (3) Hypertension Qualifiers: Hypertension type: essential hypertension Is this a current diagnosis for this admission?: Yes Plan: Noncompliance with the medications currently getting better after the start all the medications (4) Non-compliance Is this a current diagnosis for this admission?: Yes (5) Paroxysmal atrial flutter Is this a current diagnosis for this admission?: Yes Plan: Currently taking the anticoagulations will get the records from the patient's da ughter and restart all medications (6) Tobacco dependence Is this a current diagnosis for this admission?: Yes (7) Chronic obstructive pulmonary disease Qualifiers: COPD type: COPD with acute exacerbation Qualified Code(s): J44.1 - Chronic obstructive pulmonary disease with (acute) exacerbation Is this a current diagnosis for this admission?: Yes Plan: Mony all better will DC the IV Solu-Medrol continues to p.o. steroid - Time Time Spent: 50 to 70 Minutes Smoking Cessation Education: over 10 minutes Medications reviewed and adjusted accordingly: Yes Anticipated discharge: Home Within: within 24 hours - Inpatient Certification Based on my medical assessment, after consideration of the patient's comorbidities, presenting symptoms, or acuity I expect that the services needed warrant INPATIENT care.: Yes I certify that my determination is in accordance with my understanding of Medicare's requirements for reasonable and necessary INPATIENT services [42 CFR 412.3e].: Yes Medical Necessity: Significant Comorbidiites Make Outpatient Treatment Too Risky, Need Close Monitoring Due to Risk of Patient Decompensation Post Hospital Care: D/C Healthcare Management Consultant Documentation - Plan Summary Plan Summary: Admit the patient in IMCU with extensive discussion with the patient about compliance of the medications compliance with a diabetic and smoking counseling patient understand very well I hope patient understand and continues to be impro dennis
--- NOTE | 2019-08-05 11:30 | PDOC CONSULTATION ---
Consultation Consult Date: 08/05/19 Provider Consulted: Juanita CRESPO Consult reason:: ESRD for HD in the face of CHF. History of Present Illness Admission Date/PCP: 08/05/19 00:08 СВЕТЛАНА WHEELER MD History of Present Illness: OLINDA OCAMPO is a 58 year old male with a h/o ESRD in the back ground of Hypertension was admitted with progressive dyspnea of 2 day duration.Unfortunately has a history of noncompliance. He missed his last dialysis treatment yesterday. Admits to indiscretions with diet. No complaints of any chest pains, cough, fever or chills. Presently he is being seen while undergoing dialysis. He looks very comfortable and is in no distress. Labs and medications were reviewed. Dialysis orders were reviewed with the treating dialysis nurse. He has a lot of fluid on board. Past Medical History Cardiac Medical History: Reports: DVT, Hyperlipidemia, Hypertension-primary Denies: Coronary Artery Disease, Myocardial Infarction Pulmonary Medical History: Reports: Asthma, Chronic Obstructive Pulmonary Disease (COPD) Denies: Bronchitis, Pneumonia Neurological Medical History: Denies: Seizures Renal/ Medical History: Reports: End Stage Renal Disease, Secondary Hyperparathyroidism Musculoskeltal Medical History: Reports: Arthritis - "DAMAGED NERVE TO RIGHT LEG" Psychiatric Medical History: Denies: Depression Hematology Medical History: Reports Anemia of Chronic Kidney Disease Past Surgical History Past Surgical History: Reports: Vascular Surgery - Right upper arm AV fistula, right and left PermCaths Social History Smoking Status: Current Some Day Smoker Cigarettes Packs Per Day: 0.2 Electronic Cigarette use?: No Number of Years Smokin Last Time Smoked: 08/02/19 Frequency of Alcohol Use: Rare Hx Recreational Drug Use: No Drugs: None Hx Prescription Drug Abuse: No - Advance Directive Resuscitation Status: Full Code Family History Parental Family History Reviewed: Yes - Negative for ESRD Children Family History Reviewed: Yes - His daughter has ESRD on dialysis. Sibling(s) Family History Reviewed.: No Medication/Allergy Home Medications: Acetaminophen [Tylenol 325 mg Tablet] 650 mg PO Q4HP PRN 08/05/19 Albuterol Sulfate [Proair HFA Inhalation Aerosol 8.5 gm MDI] 2 puff IH Q4HP PRN 08/05/19 Amiodarone HCl [Cordarone 200 mg Tablet] 200 mg PO DAILY 08/05/19 Calcium Acetate [Phoslo 667 mg Capsule] 2,001 mg PO MEALS 08/05/19 Calcium Acetate [Phoslo 667 mg Capsule] 667 mg PO .SNACKS 08/05/19 Calcium Carbonate [Tums] 200 mg PO DAILYP PRN 08/05/19 Cinacalcet HCl [Sensipar 30 mg Tablet] 30 mg PO DAILY 08/05/19 Clonidine HCl [Catapres 0.1 mg Tablet] 0.1 mg PO DAILY 08/05/19 Metoprolol Tartrate [Lopressor 25 mg Tablet] 25 mg PO DAILY 08/05/19 Simvastatin [Zocor 20 mg Tablet] 20 mg PO QHS 08/05/19 Allergies/Adverse Reactions: DRY GAMBRO DIALYZERS Allergy (Unknown, Uncoded 06/22/18 04:07) "BP drop, vomiting" PAPER TAPE Allergy (Uncoded 06/22/18 04:07) Rash Review of Systems Constitutional: ABSENT: anorexia, fatigue, fever(s), headache(s), night sweats, weakness Ears: ABSENT: hearing changes Nose, Mouth, and Throat: ABSENT: mouth pain, sore throat Cardiovascular: PRESENT: dyspnea on exertion, edema. ABSENT: chest pain, orthro pnea, palpitations Respiratory: PRESENT: dyspnea. ABSENT: cough, hemoptysis Gastrointestinal: ABSENT: abdominal pain, constipation, diarrhea, dysphagia, heartburn, hematemesis, nausea, vomiting Musculoskeletal: ABSENT: deformity, joint swelling Integumentary: ABSENT: erythema, lesions, pruritus, rash Neurological: ABSENT: abnormal movements, abnormal speech, confusion, co nvulsions, focal weakness, frequent falls Hematologic/Lymphatic: ABSENT: easy bruising, lymphadenopathy Physical Exam Vital Signs: Temp Pulse Resp BP Pulse Ox 98.2 F 65 16 141/72 H 97 08/05/19 08:04 08/05/19 08:04 08/05/19 08:04 08/05/19 08:04 08/05/19 08:04 Intake & Output 08/04/19 08/05/19 08/06/19 06:59 06:59 06:59 Intake Total 350 Output Total 0 4600 Balance 350 -4600 Weight 96.4 kg General appearance: PRESENT: no acute distress Eye exam: PRESENT: EOMI, PERRLA. ABSENT: nystagmus Mouth exam: PRESENT: moist Neck exam: ABSENT: lymphadenopathy, meningismus, tenderness, thyromegaly, tracheal deviation Respiratory exam: PRESENT: clear to auscultation dave, crackles - Basal, decreased breath sounds Cardiovascular exam: PRESENT: +S1, +S2 GI/Abdominal exam: PRESENT: normal bowel sounds, soft. ABSENT: organomegaly, tenderness Musculoskeletal exam: PRESENT: other - Swollen right arm from impaired circulation proximally which is chronic. Neurological exam: PRESENT: alert, awake, oriented to person, oriented to place Psychiatric exam: PRESENT: appropriate affect Skin exam: ABSENT: cyanosis, erythema, mottled, rash Results Laboratory Results: 08/04/19 21:15 08/05/19 00:28 08/04/19 08/04/19 08/05/19 21:15 21:15 00:28 WBC 7.2 RBC 3.43 L Hgb 10.6 L Hct 31.2 L MCV 91 MCH 30.8 MCHC 33.9 RDW 16.7 H Plt Count 175 Seg Neutrophils % 56.1 Sodium 141.3 139.4 Potassium 5.1 H 4.8 Chloride 101 101 Carbon Dioxide 23 20 L Anion Gap 17 18 BUN 52 H 53 H Creatinine 19.41 H 19.77 H Est GFR ( Amer) 3 L 3 L Glucose 91 125 H Calcium 8.9 8.9 Total Bilirubin 0.7 AST 17 Alkaline Phosphatase 61 Total Protein 7.6 Albumin 4.1 Impressions: Chest X-Ray 08/04/19 00:00 IMPRESSION: Mild pulmonary vascular congestion with perihilar infiltrates. copyright 2010 [facility] [employer]- All Rights Reserved Assessment & Plan - Diagnosis (1) End-stage renal disease on hemodialysis Is this a current diagnosis for this admission?: Yes Plan: Patient currently on dialysis. Undergoing dialysis without any issues. Vital signs are stable. Dialysis is being supervised to ensure safe and smooth procedure. Plan to remove between 4-5 L. Dialysis orders were reviewed with the treating dialysis nurse. (2) Hypertension Qualifiers: Hypertension type: essential hypertension Is this a current diagnosis for this admission?: Yes Plan: Uncontrolled. See response to dialysis and fluid removal. Monitor. (3) Non-compliance Is this a current diagnosis for this admission?: Yes Plan: Discussed compliance with diet, medications and dialysis treatments for obvious reasons. (4) Acute CHF (congestive heart failure) Qualifiers: Heart failure type: unspecified Qualified Code(s): I50.9 - Heart failure, unspecified Plan: Early stages. Fairly compensated on nasal cannula oxygen.Should respond to ultrafiltration. Discussed again compliance.
[2019-08-05] MEDS ORDERED: PREDNISONE 20 MG TABLET PO SCH (12:00)
[2019-08-05] MEDS ORDERED: ALBUTEROL SULFATE HFA (90 MCG/PUFF) 200 PUFF/8.5 GM MDI IH PRN (12:04)
[2019-08-05] MEDS ORDERED: CALCIUM CARBONATE 500 MG TAB.CHEW PO PRN (12:04)
[2019-08-05] MEDS ORDERED: CALCIUM ACETATE 667 MG CAPSULE PO SCH (12:15)
--- NOTE | 2019-08-05 13:29 | RADIOLOGY REPORT (SQ) ---
EXAM DESCRIPTION: CHEST SINGLE VIEW COMPLETED DATE/TIME: 08/05/2019 1:11 pm REASON FOR STUDY: sob COMPARISON: 08/04/2019 EXAM PARAMETERS: NUMBER OF VIEWS: One view. TECHNIQUE: Single frontal radiographic view of the chest acquired. RADIATION DOSE: NA LIMITATIONS: None. FINDINGS: LUNGS AND PLEURA: Pulmonary edema has resolved. There is no infiltrate or effusion. No m ass. MEDIASTINUM AND HILAR STRUCTURES: No masses. Contour normal. HEART AND VASCULAR STRUCTURES: Heart normal in size. Normal vasculature. BONES: No acute findings. HARDWARE: Dual-lumen catheter on the left. OTHER: No other significant finding. IMPRESSION: NO ACUTE RADIOGRAPHIC FINDING IN THE CHEST. TECHNICAL DOCUMENTATION: JOB ID: [id number] [employer]- All Rights Reserved Reading location - IP/workstation name: [email or web address]
[2019-08-05] MEDS: CALCIUM ACETATE 667 MG CAPSULE PO SCH (18:00)
[2019-08-05] MEDS ORDERED: SIMVASTATIN 10 MG TABLET PO SCH (22:00)
[2019-08-06] MEDS ORDERED: HEPARIN SOD (PORCINE) 1,000 UNIT/ML 10 ML VIAL IV PRN (05:00)
[2019-08-06] MEDS: CLONIDINE HCL 0.1 MG TABLET PO SCH ×2 (05:03→16:13)
[2019-08-06 05:34] LABS: ABSOLUTE LYMPHOCYTES (AUTO) 0.6 10^3/uL (0.5-4.7); ABSOLUTE MONOCYTES (AUTO) 0.7 10^3/uL (0.1-1.4); BASOPHILS % (AUTO) 0.1 % (0-2); HEMOGLOBIN 9.5 g/dL (13.5-17.0); LYMPHOCYTES % (AUTO) 6.4 % (13-45); MEAN CORPUSCULAR HEMOGLOBIN 30.8 pg (27.0-33.4); MEAN CORPUSCULAR VOLUME 91 fl (80-97); MONOCYTES % (AUTO) 7.1 % (3-13); PLATELET COUNT 141 10^3/uL (150-450); RED BLOOD COUNT 3.09 10^6/uL (4.35-5.55); RED CELL DISTRIBUTION WIDTH 16.7 % (11.5-14.0); SEGMENTED NEUTROPHILS % (AUTO) 86.4 % (42-78); TOTAL CELLS COUNTED % (AUTO) 100 %; WHITE BLOOD COUNT 9.3 10^3/uL (4.0-10.5)
[2019-08-06 05:53] LABS: ANION GAP 16 (5-19); BLOOD UREA NITROGEN 49 mg/dL (7-20); CALCIUM 9.2 mg/dL (8.4-10.2); CARBON DIOXIDE 25 mmol/L (22-30); CHLORIDE 95 mmol/L (98-107); GLUCOSE 130 mg/dL (75-110); POTASSIUM 5.1 mmol/L (3.6-5.0)
[2019-08-06] MEDS: IPRATROPIUM/ALBUTEROL 0.5-2.5 MG/3 ML AMPUL NEB SCH ×2 (08:08→14:45)
[2019-08-06] MEDS ORDERED: METOPROLOL TARTRATE 25 MG TABLET PO SCH (10:00)
[2019-08-06] MEDS ORDERED: CLONIDINE HCL 0.1 MG TABLET PO SCH (10:00)
[2019-08-06] MEDS ORDERED: AMIODARONE HCL 200 MG TABLET PO SCH (10:00)
[2019-08-06] MEDS ORDERED: CINACALCET HCL 30 MG TABLET PO SCH (10:00)
--- NOTE | 2019-08-06 10:33 | PDOC PROGRESS REPORT ---
Subjective Progress Note for:: 08/06/19 Subjective:: Patient is currently doing much better Patient is scheduled for dialysis today patient's denied any chest pain no short of breath Discussed with the patient's cardiology Dr. SAENZ patient is currently taking the Coumadin will check the PT/INR and her Dr. Santoro is following that on Friday for PT/INR again adjust the dose no need to be stay in the hospital if is subth erapeutic Patient's other than that denied any other symptoms Reason For Visit: ESRD,SOB Physical Exam Vital Signs: Temp Pulse Resp BP Pulse Ox 97.6 F 73 16 149/81 H 100 08/06/19 08:23 08/06/19 08:23 08/06/19 08:23 08/06/19 08:23 08/06/19 08:23 Intake & Output 08/05/19 08/06/19 08/07/19 06:59 06:59 06:59 Intake Total 350 1120 Output Total 0 4600 Balance 350 -3480 Weight 96.4 kg 97.3 kg General appearance: PRESENT: no acute distress, well-developed, well-nourished Head exam: PRESENT: atraumatic, normocephalic Eye exam: PRESENT: conjunctiva pink, EOMI, PERRLA. ABSENT: scleral icterus Ear exam: PRESENT: normal external ear exam Mouth exam: PRESENT: moist, tongue midline Neck exam: PRESENT: full ROM. ABSENT: carotid bruit, JVD, lymphadenopathy, thyromegaly Respiratory exam: PRESENT: clear to auscultation dave Cardiovascular exam: PRESENT: RRR. ABSENT: diastolic murmur, rubs, systolic murmur Vascular exam: PRESENT: normal capillary refill GI/Abdominal exam: PRESENT: normal bowel sounds, soft. ABSENT: distended, guarding, mass, organolmegaly, rebound, tenderness Rectal exam: PRESENT: deferred Extremities exam: PRESENT: pedal edema Musculoskeletal exam: PRESENT: ambulatory Neurological exam: PRESENT: alert, awake, oriented to person, oriented to place, oriented to time, oriented to situation, CN II-XII grossly intact. ABSENT: motor sensory deficit Psychiatric exam: PRESENT: appropriate affect, normal mood. ABSENT: homicidal ideation, suicidal ideation Skin exam: PRESENT: dry, intact, warm. ABSENT: cyanosis, rash Results Laboratory Results: 08/06/19 04:53 08/06/19 04:53 08/06/19 08/06/19 04:53 04:53 WBC 9.3 RBC 3.09 L Hgb 9.5 L Hct 28.0 L MCV 91 MCH 30.8 MCHC 34.0 RDW 16.7 H Plt Count 141 L Seg Neutrophils % 86.4 H Sodium 135.7 L Potassium 5.1 H Chloride 95 L Carbon Dioxide 25 Anion Gap 16 BUN 49 H Creatinine 15.93 H Est GFR ( Amer) 4 L Glucose 130 H Calcium 9.2 Impressions: Chest X-Ray 08/05/19 00:00 IMPRESSION: NO ACUTE RADIOGRAPHIC FINDING IN THE CHEST. Assessment & Plan - Diagnosis (1) Shortness of breath Is this a current diagnosis for this admission?: Yes Plan: Currently all resolved chest x-ray is clear (2) End-stage renal disease on hemodialysis Is this a current diagnosis for this admission?: Yes Plan: Dr. Benson (3) Hypertension Qualifiers: Hypertension type: essential hypertension Is this a current diagnosis for this admission?: Yes Plan: Noncompliance with the medications currently getting better after the start all the medications (4) Non-compliance Is this a current diagnosis for this admission?: Yes (5) Paroxysmal atrial flutter Is this a current diagnosis for this admission?: Yes Plan: Patient is currently on a Coumadin as per discussed with Dr. SAENZ we will follow on a Friday (6) Tobacco dependence Is this a current diagnosis for this admission?: Yes (7) Chronic obstructive pulmonary disease Qualifiers: COPD type: COPD with acute exacerbation Qualified Code(s): J44.1 - Chronic obstructive pulmonary disease with (acute) exacerbation Is this a current diagnosis for this admission?: Yes Plan: Mony all better will DC the IV Solu-Medrol continues to p.o. steroid - Time Time Spent with patient: 25-34 minutes Level of Care: IMCU Medications reviewed and adjusted accordingly: Yes Anticipated discharge: Home Within: within 24 hours - Plan Summary Plan Summary: stable
[2019-08-06 11:25] LABS: INTERNATIONAL RATION (INR) 1.17
[2019-08-06] MEDS: CALCIUM ACETATE 667 MG CAPSULE PO SCH ×2 (16:12→16:23)
[2019-08-06 16:27] VITALS: BP 126/82
--- NOTE | 2019-08-06 16:58 | PDOC PROGRESS REPORT ---
Subjective Progress Note for:: 08/06/19 Reason For Visit: Patient seen today while undergoing dialysis. He looks comfortable. He states his breathing is a whole lot better. He denies any history of chest pains or palpitations. Labs and medications were reviewed. Dialysis orders were reviewed with the treating dialysis nurse. Physical Exam Vital Signs: Temp Pulse Resp BP Pulse Ox 97.4 F 67 18 126/82 H 100 08/06/19 16:03 08/06/19 16:03 08/06/19 16:03 08/06/19 16:03 08/06/19 16:03 Intake & Output 08/05/19 08/06/19 08/07/19 06:59 06:59 06:59 Intake Total 350 1120 Output Total 0 4600 4000 Balance 350 -3480 -4000 Weight 96.4 kg 97.3 kg General appearance: PRESENT: no acute distress Respiratory exam: PRESENT: clear to auscultation dave. ABSENT: crackles Cardiovascular exam: PRESENT: +S1, +S2 GI/Abdominal exam: PRESENT: normal bowel sounds, soft. ABSENT: organomegaly, tenderness Extremities exam: ABSENT: pedal edema Neurological exam: PRESENT: alert, awake, oriented to person Results Laboratory Results: 08/06/19 04:53 08/06/19 04:53 08/06/19 08/06/19 04:53 04:53 WBC 9.3 RBC 3.09 L Hgb 9.5 L Hct 28.0 L MCV 91 MCH 30.8 MCHC 34.0 RDW 16.7 H Plt Count 141 L Seg Neutrophils % 86.4 H Sodium 135.7 L Potassium 5.1 H Chloride 95 L Carbon Dioxide 25 Anion Gap 16 BUN 49 H Creatinine 15.93 H Est GFR ( Amer) 4 L Glucose 130 H Calcium 9.2 Impressions: Chest X-Ray 08/05/19 00:00 IMPRESSION: NO ACUTE RADIOGRAPHIC FINDING IN THE CHEST. Assessment & Plan - Diagnosis (1) End-stage renal disease on hemodialysis Is this a current diagnosis for this admission?: Yes Plan: Patient admitted with fluid overload. Underwent dialysis yesterday and now again today. He is feeling a whole lot better. Dialysis is being supervised to ensure safe and smooth procedure. Plan to remove 1 of the 4-5 L of fluid as tolerated. Dialysis orders were reviewed with the treating dialysis nurse. From renal standpoint of view he should be okay to be discharged and continue outpatient dialysis. (2) Hypertension Qualifiers: Hypertension type: essential hypertension Is this a current diagnosis for this admission?: Yes Plan: Uncontrolled. See response to dialysis. (3) Non-compliance Is this a current diagnosis for this admission?: Yes Plan: Discussed the complications/consequences of noncompliance with diet medications and hemodialysis. (4) Acute CHF (congestive heart failure) Qualifiers: Heart failure type: unspecified Qualified Code(s): I50.9 - Heart failure, unspecified Plan: Currently compensated. Feeling better.
--- NOTE | 2019-08-07 11:06 | PDOC DISCHARGE SUMMARY ---
Impression - Admit/DC Date/PCP Admission Date/Primary Care Provider: 08/05/19 00:08 СВЕТЛАНА WHEELER MD Discharge Date: 08/06/19 - Discharge Diagnosis (1) Shortness of breath Is this a current diagnosis for this admission?: Yes (2) End-stage renal disease on hemodialysis Is this a current diagnosis for this admission?: Yes (3) Hypertension Is this a current diagnosis for this admission?: Yes (4) Non-compliance Is this a current diagnosis for this admission?: Yes (5) Paroxysmal atrial flutter Is this a current diagnosis for this admission?: Yes (6) Tobacco dependence Is this a current diagnosis for this admission?: Yes (7) Chronic obstructive pulmonary disease Is this a current diagnosis for this admission?: Yes - Additional Information Resuscitation Status: Full Code Discharge Diet: Cardiac Discharge Activity: Activity As Tolerated Referrals: СВЕТЛАНА WHEELER MD [Primary Care Provider] - 08/09/19 9:00 am Prescriptions: Apixaban [Eliquis 2.5 mg Tablet] 2.5 mg PO BID #60 tablet Home Medications: Acetaminophen [Tylenol 325 mg Tablet] 650 mg PO Q4HP PRN 08/05/19 Albuterol Sulfate [Proair HFA Inhalation Aerosol 8.5 gm MDI] 2 puff IH Q4HP PRN 08/05/19 Amiodarone HCl [Cordarone 200 mg Tablet] 200 mg PO DAILY 08/05/19 Calcium Acetate [Phoslo 667 mg Capsule] 2,001 mg PO MEALS 08/05/19 Calcium Acetate [Phoslo 667 mg Capsule] 667 mg PO .SNACKS 08/05/19 Calcium Carbonate [Tums] 200 mg PO DAILYP PRN 08/05/19 Cinacalcet HCl [Sensipar 30 mg Tablet] 30 mg PO DAILY 08/05/19 Clonidine HCl [Catapres 0.1 mg Tablet] 0.1 mg PO DAILY 08/05/19 Metoprolol Tartrate [Lopressor 25 mg Tablet] 25 mg PO DAILY 08/05/19 Simvastatin [Zocor 20 mg Tablet] 20 mg PO QHS 08/05/19 Apixaban [Eliquis 2.5 mg Tablet] 2.5 mg PO BID #60 tablet 08/06/19 History of Present Illiness History of Present Illness: OLINDA OCAMPO is a 58 year old male Is a 58-year-old male with the patient of Dr. Wheeler with a history of the hypertension end-stage renal disease on hemodialysis chronic atrial flutter fibrillations and multiple other comorbidity very noncompliance not taking the medicines for several weeks and also missed her dialysis came to the emergency department with a complaining of her shortness of the breath and increased the cough. According to the patient she does not feel good or is correct had his puncture not sure what the story but he did not go for dialysis on Friday and patient started feeling bad came to the emergency department last night with increasing short of breath where patient's electrolytes were stable but chest x-ray showed vascular congestion's Patients definitely symptoms related to the missed dialysis with the patient is a chronic smoker with mild COPD patients when I saw it in her dialysis currently doing well . Patient's blood pressure was elevated because patient was not taking any medications for almost a several weeks. Patient was admitting in the [facility] for the same problem because of the missed dialysis on noncompliance a couple of months back Patient's currently denied any chest pain no fever no chills Patient received IV Solu-Medrol in the ER patient also have a handicap dialysis daughter at home and the usually go together for the dialysis. She will also see Dr. SAENZ for the chronic A. fib and taking some blood thinner but not sure which one Hospital Course Hospital Course: Is a 58-year-old male's presented to the emergency department with a complaint of shortness of the breath with a very noncompliance missed the dialysis not taking the medicines for several months also find very hypertensives. Patient was put in [facility] nephrology was consulted dialyzed the patient's Patient's all symptoms resolved Patient's restart all the blood pressure medications and the blood pressures also remained stable Nephrology standpoint patient is otherwise discharged home and discussed with the patient's cardiology patient was supposed to take the Coumadin with very noncompliance not followed properly put the patient on Eliquis per Dr. SAENZ follow outpatients with him Call patient's all prescriptions to the pharmacy encourage the patient's to take the medicines regularly for the dialysis as schedule Patient is otherwise very eager to go home's while the patient's lives with the handicapped daughter Patient is walking the hallway without any problems Denied any chest pain no short of breath Physical Exam Vital Signs: Temp Pulse Resp BP Pulse Ox 97.4 F 67 18 126/82 H 100 08/06/19 17:05 08/06/19 17:05 08/06/19 17:05 08/06/19 17:05 08/06/19 17:05 Intake & Output 08/06/19 08/07/19 08/08/19 06:59 06:59 06:59 Intake Total 1120 Output Total 4600 4000 Balance -3480 -4000 Weight 97.3 kg 97.3 kg General appearance: PRESENT: no acute distress, well-developed, well-nourished Head exam: PRESENT: atraumatic, normocephalic Eye exam: PRESENT: conjunctiva pink, EOMI, PERRLA. ABSENT: scleral icterus Ear exam: PRESENT: normal external ear exam Mouth exam: PRESENT: moist, tongue midline Neck exam: ABSENT: carotid bruit, JVD, lymphadenopathy, thyromegaly Respiratory exam: PRESENT: clear to auscultation dave. ABSENT: rales, rhonchi, wheezes Cardiovascular exam: PRESENT: RRR. ABSENT: diastolic murmur, rubs, systolic mur mur Pulses: PRESENT: normal dorsalis pedis pul Vascular exam: PRESENT: normal capillary refill GI/Abdominal exam: PRESENT: normal bowel sounds, soft. ABSENT: distended, guarding, mass, organolmegaly, rebound, tenderness Rectal exam: PRESENT: deferred Extremities exam: PRESENT: full ROM. ABSENT: calf tenderness, clubbing, pedal edema Neurological exam: PRESENT: alert, awake, oriented to person, oriented to place, oriented to time, oriented to situation, CN II-XII grossly intact. ABSENT: motor sensory deficit Psychiatric exam: PRESENT: appropriate affect, normal mood. ABSENT: homicidal ideation, suicidal ideation Skin exam: PRESENT: dry, intact, warm. ABSENT: cyanosis, rash Results Laboratory Results: WBC 9.3 10^3/uL (4.0-10.5) 08/06/19 04:53 RBC 3.09 10^6/uL (4.35-5.55) L 08/06/19 04:53 Hgb 9.5 g/dL (13.5-17.0) L 08/06/19 04:53 Hct 28.0 % (37.9-51.0) L 08/06/19 04:53 MCV 91 fl (80-97) 08/06/19 04:53 MCH 30.8 pg (27.0-33.4) 08/06/19 04:53 MCHC 34.0 g/dL (32.0-36.0) 08/06/19 04:53 RDW 16.7 % (11.5-14.0) H 08/06/19 04:53 Plt Count 141 10^3/uL (150-450) L 08/06/19 04:53 Lymph % (Auto) 6.4 % (13-45) L 08/06/19 04:53 Cooke % (Auto) 7.1 % (3-13) 08/06/19 04:53 Eos % (Auto) 0.0 % (0-6) 08/06/19 04:53 Baso % (Auto) 0.1 % (0-2) 08/06/19 04:53 Absolute Neuts (auto) 8.0 10^3/uL (1.7-8.2) 08/06/19 04:53 Absolute Lymphs (auto) 0.6 10^3/uL (0.5-4.7) 08/06/19 04:53 Absolute Monos (auto) 0.7 10^3/uL (0.1-1.4) 08/06/19 04:53 Absolute Eos (auto) 0.0 10^3/uL (0.0-0.6) 08/06/19 04:53 Absolute Basos (auto) 0.0 10^3/uL (0.0-0.2) 08/06/19 04:53 Seg Neutrophils % 86.4 % (42-78) H 08/06/19 04:53 PT 15.0 SEC (11.4-15.4) 08/06/19 10:43 INR 1.17 08/06/19 10:43 Sodium 135.7 mmol/L (137-145) L 08/06/19 04:53 Potassium 5.1 mmol/L (3.6-5.0) H 08/06/19 04:53 Chloride 95 mmol/L (98-107) L 08/06/19 04:53 Carbon Dioxide 25 mmol/L (22-30) 08/06/19 04:53 Anion Gap 16 (5-19) 08/06/19 04:53 BUN 49 mg/dL (7-20) H 08/06/19 04:53 Creatinine 15.93 mg/dL (0.52-1.25) H 08/06/19 04:53 Est GFR ( Amer) 4 (>60) L 08/06/19 04:53 Est GFR (MDRD) Non-Af 3 (>60) L 08/06/19 04:53 Glucose 130 mg/dL (75-110) H 08/06/19 04:53 Calcium 9.2 mg/dL (8.4-10.2) 08/06/19 04:53 Total Bilirubin 0.7 mg/dL (0.2-1.3) 08/04/19 21:15 Direct Bilirubin 0.4 mg/dL (0.0-0.4) 08/04/19 21:15 Neonat Total Bilirubin Not Reportable 08/04/19 21:15 Neonat Direct Bilirubin Not Reportable 08/04/19 21:15 Neonat Indirect Bili Not Reportable 08/04/19 21:15 AST 17 U/L (17-59) 08/04/19 21:15 ALT 9 U/L (<50) 08/04/19 21:15 Alkaline Phosphatase 61 U/L (38-126) 08/04/19 21:15 Total Protein 7.6 g/dL (6.3-8.2) 08/04/19 21:15 Albumin 4.1 g/dL (3.5-5.0) 08/04/19 21:15 Impressions: Chest X-Ray 08/04/19 00:00 IMPRESSION: Mild pulmonary vascular congestion with perihilar infiltrates. copyright 2011 [employer]- All Rights Reserved Chest X-Ray 08/05/19 00:00 IMPRESSION: NO ACUTE RADIOGRAPHIC FINDING IN THE CHEST. Plan Time Spent: Greater than 30 Minutes - Follow-up with the Dr. Dumont as outpatient follow-up with the dialysis as per schedule Stroke Is this a Stroke Patient?: No Acute Heart Failure - Is this a Heart Failure Patient?: No
== END 2019-08-06 17:52 | disposition home or self-care (01) | DRG 291 ==
LOC: ER 21:11 → EH 08-05 00:08 → 3W 08-05 02:06
PROVIDERS: ADMIT Internal Medicine; ATTEND Internal Medicine
PROC: 5A1D70Z Performance of Urinary Filtration, Intermittent, Less than 6 Hours Per Day (ICD-10-PCS; principal; 2019-08-05)
DX: I13.2 Hypertensive heart and chronic kidney disease with heart failure and with stage 5 chronic kidney disease, or end stage renal disease (principal); N18.6 End stage renal disease; J44.1 Chronic obstructive pulmonary disease with (acute) exacerbation; E87.5 Hyperkalemia; I48.0 Paroxysmal atrial fibrillation; I50.9 Heart failure, unspecified; E78.00 Pure hypercholesterolemia, unspecified; F17.210 Nicotine dependence, cigarettes, uncomplicated; Z91.14 Patient's other noncompliance with medication regimen; Z86.718 Personal history of other venous thrombosis and embolism; Z99.2 Dependence on renal dialysis; Z91.19 Patient's noncompliance with other medical treatment and regimen
CPT/HCPCS: 36415; 71045; 80048; 80053; 85025; 85610; 93005; 93010; 99285; J2920; J3490; J7512; J7620

== ENCOUNTER 2019-09-19 06:31 | Emergency (ER) | payer MEDICARE ==
[2019-09-19] MEDS ORDERED: PREDNISONE 20 MG TABLET PO ONE (06:40)
[2019-09-19] MEDS ORDERED: IPRATROPIUM/ALBUTEROL 0.5-2.5 MG/3 ML AMPUL NEB ONE (06:40)
[2019-09-19] MEDS ORDERED: CLONIDINE HCL 0.2 MG TABLET PO ONE (07:42)
--- NOTE | 2019-09-19 07:48 | ER Document Report ---
ED General - General Chief Complaint: Shortness Of Breath Stated Complaint: SHORTNESS OF BREATH Time Seen by Provider: 09/19/19 07:16 Primary Care Provider: СВЕТЛАНА WHEELER MD [Primary Care Provider] - Follow up as needed TRAVEL OUTSIDE OF THE [place] IN LAST 30 DAYS: No - HPI Notes: Patient is a 58-year-old male, end-stage renal disease, who usually undergoes dialysis Friday, Friday, Friday. [facility] he [facility] his [facility]. He states he notified his dialysis nurse on Friday, and she "took extra fluid off" but it did not seem to help. He feels short of breath. Patient admits he did not take his blood pressure medications today. He denies any pain of any sort. Patient urinates only minimally, has been on dialysis for at least 9 years. - Related Data Allergies/Adverse Reactions: DRY GAMBRO DIALYZERS Allergy (Unknown, Uncoded 06/22/18 04:07) "BP drop, vomiting" PAPER TAPE Allergy (Uncoded 06/22/18 04:07) Rash Home Medications: Patient states no changes from last visit, but is unable to list his current medications. Notes he takes clonidine, unsure as to how often, dosage Past Medical History - General Information source: Patient - Social History Smoking Status: Current Some Day Smoker Frequency of alcohol use: Rare Drug Abuse: None Family History: Reviewed & Not Pertinent, Hypertension Patient has suicidal ideation: No Patient has homicidal ideation: No - Past Medical History Cardiac Medical History: Reports: Hx DVT, Hx Hypercholesterolemia, Hx Hyperte nsion Denies: Hx Coronary Artery Disease, Hx Heart Attack Pulmonary Medical History: Reports: Hx Asthma, Hx COPD Denies: Hx Bronchitis, Hx Pneumonia Neurological Medical History: Denies: Hx Cerebrovascular Accident, Hx Seizures Renal/ Medical History: Reports: Hx End Stage Renal Disease, Hx Hemodialysis. Denies: Hx Peritoneal Dialysis Musculoskeletal Medical History: Reports Hx Arthritis - "DAMAGED NERVE TO RIGHT LEG" Psychiatric Medical History: Denies: Hx Depression Past Surgical History: Reports: Hx Neurologic Surgery - Benign brain tumor removed 2010, Hx Vascular Surgery - Right upper arm AV fistula, right and left PermCaths - Immunizations Hx Diphtheria, Pertussis, Tetanus Vaccination: Yes Hx Pneumococcal Vaccination: 02/07/16 Review of Systems - Review of Systems Constitutional: No symptoms reported EENT: No symptoms reported Cardiovascular: See HPI Respiratory: See HPI Gastrointestinal: No symptoms reported Genitourinary: No symptoms reported Musculoskeletal: No symptoms reported Skin: No symptoms reported Neurological/Psychological: No symptoms reported Physical Exam - Vital signs Vitals: Temp Pulse Resp BP Pulse Ox 98.8 F 87 23 H 212/114 H 99 09/19/19 06:32 09/19/19 06:32 09/19/19 06:32 09/19/19 06:32 09/19/19 06:32 - Notes Notes: This is a 58-year-old male who appears her stated age in no acute distress. He is not conversationally dyspneic, resting comfortably. Vital signs reviewed, please refer to chart. Head is normocephalic, atraumatic. Pupils equal round, reactive to light. Neck is supple without meningismus. Heart is regular rate and rhythm. Lungs reveal bibasilar rales. Abdomen is soft, nontender, normoactive bowel sounds throughout. Extremities without cyanosis, clubbing. Right upper extremity chronically edematous. Posterior calves are nontender. Peripheral pulses are equal. Skin is warm and dry. Patient is awake, alert, neurological exam is nonfocal. Course - Re-evaluation Re-evalutation: 09/19/19 07:46 Patient presents emergency department for evaluation. He missed his dialysis appointment on Friday. He is hypertensive, lungs sound wet. At this point he is not conversationally dyspneic. His blood pressure is markedly elevated, but he did not take his antihypertensives today. Laboratory investigations were obtained. Because of his COPD history he was given a breathing treatment prior to my arrival in the room, he states he feels mildly improved. Awaiting further evaluation with labs. At this point, I do not have a ski patrol on-call. There are no beds available in any hospitals in the area to my knowledge. We will proceed with work-up, I will attempt to obtain dialysis for this patient today. 09/19/19 10:20 Patient is markedly hyperkalemic. He was treated with calcium, insulin, dextrose, Veltassa. He remained stable. I given him his clonidine and his blood pressure did respond, currently blood pressure is 154/82. At any rate, the patient has pulmonary edema, marked hypertension, and hyperkalemia. He needs emergent dialysis. We do not have nephrology on-call, nor do we have the capability to perform emergent dialysis on the weekends. I was able to speak to Dr. Coy, internal medicine physician at [facility], who accepted the patient in transfer. Patient is stable at this time. 09/19/19 11:34 I was notified the patient was hypoglycemic, blood sugar in the 50s. He is stable, normal neurological exam. I ordered half an amp of D50. Will reevaluate shortly. - Vital Signs Vital signs: Temp Pulse Resp BP Pulse Ox 97.9 F 87 23 H 145/92 H 99 09/19/19 09:29 09/19/19 06:32 09/19/19 11:01 09/19/19 11:01 09/19/19 11:01 - Laboratory Result Diagrams: 09/19/19 07:57 09/19/19 07:57 Laboratory results interpreted by me: 09/19/19 09/19/19 09/19/19 07:57 07:57 11:12 RBC 3.64 L Hgb 11.0 L Hct 32.7 L RDW 15.5 H Potassium 6.6 H* Chloride 96 L BUN 57 H Creatinine 16.98 H Est GFR ( Amer) 4 L Est GFR (MDRD) Non-Af 3 L POC Glucose 57 L Direct Bilirubin 0.5 H - Diagnostic Test Radiology reviewed: Image reviewed, Reports reviewed - EKG Interpretation by Me Additional EKG results interpreted by me: 09/19/19 07:48 Sinus mechanism rate of 79 bpm. Normal axis and intervals. Lateral T wave inversions concerning for ischemia versus strain. This is worse when compared to prior study of August 04, 2019 Critical Care Note - Critical Care Note Total time excluding time spent on procedures (mins): 40 Discharge - Discharge Clinical Impression: End-stage renal disease on hemodialysis, Acute hyperkalemia, Pulmonary edema Condition: Stable Disposition: [facility] Admitting Provider: Dr. Coy Referrals: СВЕТЛАНА WHEELER MD [Primary Care Provider] - Follow up as needed
[2019-09-19] MEDS: ALBUTEROL SULFATE 0.083% NEB 2.5 MG/3 ML AMPUL NEB SCH (07:49)
[2019-09-19 08:21] LABS: ALBUMIN 4.3 g/dL (3.5-5.0); ALKALINE PHOSPHATASE 57 U/L (38-126); ANION GAP 14 (5-19); ASPARTATE AMINO TRANSFERASE 23 U/L (17-59); BILIRUBIN,DIRECT 0.5 mg/dL (0.0-0.4); BILIRUBIN,TOTAL 0.8 mg/dL (0.2-1.3); BLOOD UREA NITROGEN 57 mg/dL (7-20); CALCIUM 9.4 mg/dL (8.4-10.2); CARBON DIOXIDE 28 mmol/L (22-30); CHLORIDE 96 mmol/L (98-107); GLUCOSE 93 mg/dL (75-110)
[2019-09-19 08:27] LABS: ABSOLUTE BASOPHILS # (AUTO) 0.1 10^3/uL (0.0-0.2); ABSOLUTE EOSINOPHILS # (AUTO) 0.2 10^3/uL (0.0-0.6); ABSOLUTE MONOCYTES (AUTO) 0.3 10^3/uL (0.1-1.4); ABSOLUTE NEUT (AUTO) 3.6 10^3/uL (1.7-8.2); BASOPHILS % (AUTO) 1.3 % (0-2); EOSINOPHILS % (AUTO) 3.9 % (0-6); HEMATOCRIT 32.7 % (37.9-51.0); LYMPHOCYTES % (AUTO) 19.2 % (13-45); MEAN CORPUSCULAR HEMOGLOBIN 30.3 pg (27.0-33.4); MEAN CORPUSCULAR HGB CONC 33.8 g/dL (32.0-36.0); MEAN CORPUSCULAR VOLUME 90 fl (80-97); MONOCYTES % (AUTO) 6.6 % (3-13); PLATELET COUNT 162 10^3/uL (150-450); RED BLOOD COUNT 3.64 10^6/uL (4.35-5.55); RED CELL DISTRIBUTION WIDTH 15.5 % (11.5-14.0); TOTAL CELLS COUNTED % (AUTO) 100 %; WHITE BLOOD COUNT 5.3 10^3/uL (4.0-10.5)
[2019-09-19 08:29] LABS: POTASSIUM 6.6 mmol/L (3.6-5.0)
[2019-09-19] MEDS ORDERED: DEXTROSE 50%-WATER 25 GM/50 ML DISP.SYRIN IV ONE ×3 (08:30→11:27)
[2019-09-19] MEDS ORDERED: CALCIUM GLUCONATE 1000 MG/10 ML INJ IV ONE (08:30)
[2019-09-19] MEDS ORDERED: INSULIN REG, HUMAN 100 UNIT/ML 3 ML VIAL (PYX) IV ONE (08:30)
[2019-09-19] MEDS ORDERED: PATIROMER 8.4 GM SUSP PACKET PO ONE (08:31)
--- NOTE | 2019-09-19 08:51 | RADIOLOGY REPORT (SQ) ---
EXAM DESCRIPTION: CHEST SINGLE VIEW COMPLETED DATE/TIME: 09/19/2019 6:57 am REASON FOR STUDY: SOB; Wheezing; Cough COMPARISON: 08/05/2019. NUMBER OF VIEWS: One view. TECHNIQUE: Single frontal radiographic view of the chest acquired. LIMITATIONS: None. FINDINGS: LUNGS AND PLEURA: Patchy diffuse airspace edema bilaterally with trace effusions. No pneu mothorax. MEDIASTINUM AND HILAR STRUCTURES: No masses. Contour normal. HEART AND VASCULAR STRUCTURES: Cardiomegaly. BONES: No acute findings. HARDWARE: Left IJ catheter in place. OTHER: No other significant finding. IMPRESSION: Pulmonary edema. TECHNICAL DOCUMENTATION: JOB ID: [id number] [employer]- All Rights Reserved Reading location - IP/workstation name: [email or web address]
[2019-09-19 12:30] VITALS: BP 142/82
--- NOTE | 2019-09-19 17:41 | EKG REPORT ---
SEVERITY:- ABNORMAL ECG - SINUS RHYTHM LEFT ATRIAL ABNORMALITY ABNORMAL T, CONSIDER ISCHEMIA, LATERAL LEADS VS LVH : Confirmed by: Ana Hagan 19-Sep-2019 17:40:45
== END 2019-09-19 12:31 | disposition short-term general hospital (02) ==
LOC: ER 06:31
DX: E87.5 Hyperkalemia (principal); J81.1 Chronic pulmonary edema; R06.02 Shortness of breath; I12.0 Hypertensive chronic kidney disease with stage 5 chronic kidney disease or end stage renal disease; N18.6 End stage renal disease; Z99.2 Dependence on renal dialysis; F17.200 Nicotine dependence, unspecified, uncomplicated; E78.00 Pure hypercholesterolemia, unspecified; Z86.718 Personal history of other venous thrombosis and embolism
CPT/HCPCS: 93005; 96376; 99285; 96374; 96375; 36415; 82962; 85025; 80053; 71045; 93010; J0610; A9270 ×6; J3490; J1815; J7512; J7620

== ENCOUNTER 2019-09-24 05:26 | Emergency (ER) | payer MEDICARE ==
[2019-09-24 06:59] LABS: ABSOLUTE BASOPHILS # (AUTO) 0.1 10^3/uL (0.0-0.2); ABSOLUTE EOSINOPHILS # (AUTO) 0.5 10^3/uL (0.0-0.6); ABSOLUTE LYMPHOCYTES (AUTO) 1.4 10^3/uL (0.5-4.7); ABSOLUTE MONOCYTES (AUTO) 0.7 10^3/uL (0.1-1.4); ABSOLUTE NEUT (AUTO) 4.9 10^3/uL (1.7-8.2); BASOPHILS % (AUTO) 1.4 % (0-2); EOSINOPHILS % (AUTO) 6.9 % (0-6); HEMATOCRIT 32.2 % (37.9-51.0); MEAN CORPUSCULAR HGB CONC 34.1 g/dL (32.0-36.0); MEAN CORPUSCULAR VOLUME 91 fl (80-97); MONOCYTES % (AUTO) 8.6 % (3-13); RED BLOOD COUNT 3.54 10^6/uL (4.35-5.55); SEGMENTED NEUTROPHILS % (AUTO) 65.1 % (42-78); TOTAL CELLS COUNTED % (AUTO) 100 %; WHITE BLOOD COUNT 7.6 10^3/uL (4.0-10.5)
[2019-09-24 07:04] LABS: PLATELET COUNT 195 10^3/uL (150-450)
--- NOTE | 2019-09-24 07:06 | ER Document Report ---
Entered by XIAO WELCH SCRIBE 09/24/19 0617 Acting as scribe for:BALDO MILLIGAN IV, MD ED Respiratory Problem - General Chief Complaint: Shortness Of Breath Stated Complaint: CHEST CONGESTION/SHORT OF BREATH/VOMITING/ASTHMA Time Seen by Provider: 09/24/19 06:13 Primary Care Provider: СВЕТЛАНА WHEELER MD [Primary Care Provider] - Follow up as needed Information source: Patient Notes: This 58 year old male patient presents to the emergency department today with complaints of shortness of breath. Patient has ESRD and is due for dialysis today at 11:15am (MWF dialysis). Patient was seen here on 09/19/19 for similar symptoms and he was sent to [facility] to have dialysis as 09/19 was a Friday and we did not have the capabilities to get dialysis on the weekends. Patient reports that if he is sitting still he is fine but when he tries to walk he gets extremely short of breath. Patient reports that he did not miss his dialysis appointment two days ago. He reports that he had a normal treatment then. Patient states that after he left that day he had leg cramps bilaterally which is unusual for him. TRAVEL OUTSIDE OF THE [place] IN LAST 30 DAYS: No - Related Data Allergies/Adverse Reactions: DRY GAMBRO DIALYZERS Allergy (Unknown, Uncoded 06/22/18 04:07) "BP drop, vomiting" PAPER TAPE Allergy (Uncoded 06/22/18 04:07) Rash Home Medications: clonidine, eliquis, metrprolol,simvastin, ventolin Past Medical History - General Information source: Patient - Social History Smoking Status: Current Every Day Smoker Cigarette use (# per day): Yes Frequency of alcohol use: None Drug Abuse: None Lives with: Family Family History: Reviewed & Not Pertinent, Hypertension Patient has suicidal ideation: No Patient has homicidal ideation: No - Past Medical History Cardiac Medical History: Reports: Hx DVT, Hx Hypercholesterolemia, Hx Hypert ension Pulmonary Medical History: Reports: Hx Asthma, Hx COPD Renal/ Medical History: Reports: Hx End Stage Renal Disease, Hx Hemodialysis Musculoskeletal Medical History: Reports Hx Arthritis - "DAMAGED NERVE TO RIGHT LEG" Past Surgical History: Reports: Hx Neurologic Surgery - Benign brain tumor removed 2010, Hx Vascular Surgery - Right upper arm AV fistula, right and left PermCaths - Immunizations Hx Diphtheria, Pertussis, Tetanus Vaccination: Yes Hx Pneumococcal Vaccination: 02/07/16 Review of Systems - Review of Systems Constitutional: No symptoms reported EENT: No symptoms reported Cardiovascular: No symptoms reported Respiratory: See HPI, Short of breath Gastrointestinal: No symptoms reported Genitourinary: No symptoms reported Male Genitourinary: No symptoms reported Musculoskeletal: See HPI, Other - RUE edema x2 years Skin: No symptoms reported Hematologic/Lymphatic: No symptoms reported Neurological/Psychological: No symptoms reported -: Yes All other systems reviewed and negative Physical Exam - Vital signs Vitals: Temp Pulse Resp BP Pulse Ox 97.9 F 80 24 H 185/113 H 95 09/24/19 05:48 09/24/19 05:48 09/24/19 05:48 09/24/19 05:48 09/24/19 05:48 Interpretation: Normal - General General appearance: Appears well, Alert - HEENT Head: Normocephalic, Atraumatic Eyes: Normal Pupils: PERRL - Respiratory Respiratory status: No respiratory distress Chest status: Nontender Breath sounds: Other - Mostly clear, no crackles heard. Chest palpation: Normal - Cardiovascular Rhythm: Regular Heart sounds: Normal auscultation Murmur: No - Abdominal Inspection: Normal Distension: No distension Bowel sounds: Normal Tenderness: Nontender Organomegaly: No organomegaly - Back Back: Normal, Nontender - Extremities General upper extremity: Edema - RUE is quite edematous which has been stable for x2 years per patient General lower extremity: Normal inspection. No: Edema - Neurological Neuro grossly intact: Yes Cognition: Normal Orientation: AAOx4 [place] Coma Scale Eye Opening: Spontaneous [place] Coma Scale Verbal: Oriented Mili Coma Scale Motor: Obeys Commands Mili Coma Scale Total: 15 Speech: Normal - Psychological Associated symptoms: Normal affect, Normal mood - Skin Skin Temperature: Warm Skin Moisture: Dry Skin Color: Normal Course - Re-evaluation Re-evalutation: 09/24/19 08:43 Patient in no acute distress at this time. Results of ED MSE discussed with oumou parker. All questions were answered prior to discharge. Plan is to send patient via EMS on for his scheduled dialysis appointment. - Vital Signs Vital signs: Temp Pulse Resp BP Pulse Ox 98.0 F 80 23 H 199/122 H 100 09/24/19 07:49 09/24/19 05:48 09/24/19 07:49 09/24/19 07:49 09/24/19 07:49 - Laboratory Result Diagrams: 09/24/19 06:05 09/24/19 07:42 Laboratory results interpreted by me: 09/24/19 09/24/19 06:05 07:42 RBC 3.54 L Hgb 11.0 L Hct 32.2 L RDW 16.0 H Eos % (Auto) 6.9 H Potassium 5.7 H BUN 53 H Creatinine 13.98 H Est GFR ( Amer) 4 L Est GFR (MDRD) Non-Af 4 L Phosphorus 8.0 H Direct Bilirubin 0.6 H - Diagnostic Test Radiology reviewed: Reports reviewed - EKG Interpretation by Me Additional EKG results interpreted by me: 09/24/19 08:44 EKG obtained on 09/24/2019 at 053 5 hours was interpreted by this MD. Findings: Sinus rhythm, rate 87, normal axis, P waves preceding QRS complexes, QRS complexes appear narrow, T wave inversions are present and leads V5 and V6. These inversions were also seen on the patient's prior EKG from 09/19/2019. There are no obvious patterns of ST segment elevation or depression to suggest acute myocardial ischemia or infarction. Impression: Sinus rhythm with T wave inversions in V5 and V6 and nonspecific ST segment Discharge - Discharge Clinical Impression: Pulmonary edema Qualifiers: Chronicity: chronic Qualified Code(s): J81.1 - Chronic pulmonary edema Condition: Good Disposition: [facility] Additional Instructions: Return to the Emergency Department without delay if any worse. HOME CARE INSTRUCTIONS & INFORMATION: Thank you for choosing us for your medical needs. We hope you're satisfied with the care you received. After you leave, you must properly care for your problem and, at the same time, observe its progress. Any condition can change. Some illnesses can change rapidly over hours or days. If your condition worsens, return to the Emergency Department or see your physician promptly. ABOUT YOUR X-RAYS AND EKG'S: If you had an EKG or X-rays taken, they have been read by the Emergency Physician. The X-rays and EKG's will also be read by a Rad iologist or Marketing Admin within 24 hours. If discrepancies are noted, you will be notified by telephone. Please be certain the ED has a correct telephone number & address where you can be reached. Also, realize that some fractures or abnormalities do not show up on initial X-rays. If your symptoms continue, see your physician. ABOUT YOUR LABORATORY TEST: If you had laboratory tests, the results have been reviewed by the Emergency Physician. Some test results (for example cultures) may not be available for several days. You will be contacted if any test result shows you need additional treatment. Please be certain the ED has a correct telephone number and address where you can be reached. ABOUT YOUR MEDICATIONS: You will receive instructions on how to take your medicine on the prescription label you receive. Additional information may be provided by the Pharmacy. If you have questions afterwards, call the ED for clarification or further instructions. Some prescribed medications may cause drowsiness. Do not perform tasks such as driving a car or operating machinery without consulting your Pharmacist. If you feel you need a refill of pain medication, your condition will need re-evaluation. Please do not call for a refill of any medication. ABOUT YOUR SIGNATURE: Signature of this document acknowledges to followin. Understanding that you received emergency treatment and that you may be released before al medical problems are known or treated. Please be certain the ED has a correct phone number & address where you can be reached. 2. Acknowledgement that you will arrange for follow-up care as recommended. 3. Authorization for the Emergency Physician to provide information to your follow-up Physician in order to maximize your care. AT ANY TIME, IF YOUR SYMPTOMS CHANGE SIGNIFICANTLY OR WORSEN OR YOU DEVELOP NEW SYMPTOMS, RETURN TO THE EMERGENCY DEPARTMENT IMMEDIATELY FOR RE-EVALUATION. OUR GOAL IS TO PROVIDE EXCELLENT MEDICAL CARE! WE HOPE THAT WE HAVE MET YOUR EXPECTATIONS DURING YOUR EMERGENCY DEPARTMENT VISIT AND THAT YOU FEEL YOU HAVE RECEIVED EXCELLENT CARE! Referrals: СВЕТЛАНА WHEELER MD [Primary Care Provider] - Follow up as needed I personally performed the services described in the documentation, reviewed and edited the documentation which was dictated to the scribe in my presence, and it accurately records my words and actions.
[2019-09-24 08:16] LABS: ALBUMIN 4.1 g/dL (3.5-5.0); ALKALINE PHOSPHATASE 76 U/L (38-126); ANION GAP 16 (5-19); ASPARTATE AMINO TRANSFERASE 23 U/L (17-59); BILIRUBIN,DIRECT 0.6 mg/dL (0.0-0.4); BILIRUBIN,TOTAL 0.6 mg/dL (0.2-1.3); BLOOD UREA NITROGEN 53 mg/dL (7-20); CALCIUM 8.4 mg/dL (8.4-10.2); CARBON DIOXIDE 25 mmol/L (22-30); CHLORIDE 98 mmol/L (98-107); GLUCOSE 101 mg/dL (75-110); POTASSIUM 5.7 mmol/L (3.6-5.0); TOTAL PROTEIN 7.8 g/dL (6.3-8.2)
--- NOTE | 2019-09-24 08:19 | RADIOLOGY REPORT (SQ) ---
EXAM DESCRIPTION: CHEST SINGLE VIEW COMPLETED DATE/TIME: 09/24/2019 7:14 am REASON FOR STUDY: dyspnea COMPARISON: 09/19/2019 EXAM PARAMETERS: NUMBER OF VIEWS: One view. TECHNIQUE: Single frontal radiographic view of the chest acquired. RADIATION DOSE: NA LIMITATIONS: None. FINDINGS: LUNGS AND PLEURA: Bilateral patchy diffuse airspace disease in the lung unchanged from th e prior examination, considerations for this finding includes edema and or infiltrates. No pneumotho rax or pleural effusion. MEDIASTINUM AND HILAR STRUCTURES: No masses. Contour normal. HEART AND VASCULAR STRUCTURES: Cardiomegaly, unchanged finding. BONES: No acute findings. HARDWARE: Stable appearance. OTHER: No other significant finding. IMPRESSION: 1. No significant interval changes since the prior examination dated 09/19/2016. Bilate ral patchy airspace disease in the lungs may be on the basis of edema or infiltrates. 2. Cardiomegaly, as unchanged finding. TECHNICAL DOCUMENTATION: JOB ID: [id number] [employer]- All Rights Reserved Reading location - IP/workstation name: [email or web address]
--- NOTE | 2019-09-24 10:12 | EKG REPORT ---
SEVERITY:- ABNORMAL ECG - SINUS RHYTHM LEFT ATRIAL ABNORMALITY ABNORMAL T, CONSIDER ISCHEMIA, LATERAL LEADS BORDERLINE PROLONGED QT INTERVAL : Confirmed by: Amanda Dumont MD 24-Sep-2019 10:11:31
[2019-09-24 10:49] VITALS: BP 188/104
== END 2019-09-24 10:49 | disposition home health service (06) ==
LOC: ER 05:26
DX: J81.1 Chronic pulmonary edema (principal); R06.02 Shortness of breath; R09.89 Other specified symptoms and signs involving the circulatory and respiratory systems; R11.10 Vomiting, unspecified; J45.909 Unspecified asthma, uncomplicated; I12.0 Hypertensive chronic kidney disease with stage 5 chronic kidney disease or end stage renal disease; N18.6 End stage renal disease; Z99.2 Dependence on renal dialysis; F17.210 Nicotine dependence, cigarettes, uncomplicated; J44.9 Chronic obstructive pulmonary disease, unspecified
CPT/HCPCS: 36415; 71045; 80053; 83735; 84100; 85025; 93005; 93010; 99285

== ENCOUNTER 2019-09-27 02:39 | Emergency (ER) | payer MEDICARE ==
--- NOTE | 2019-09-27 04:16 | RADIOLOGY REPORT (SQ) ---
EXAM DESCRIPTION: XR CHEST 2 VIEWS COMPLETED DATE/TME: 09/27/2019 00:00 CLINICAL HISTORY: 58 years, Male, SOB COMPARISON: September 24, 2019 NUMBER OF VIEWS: 2 TECHNIQUE: LIMITATIONS: None. FINDINGS: Cardiomediastinal silhouette is enlarged but stable. Interstitial and airspace disease bilaterally, similar to prior no significant pleural fluid. No pneumothorax. Left IJ tunneled hemodialysis access catheter remains in good position IMPRESSION: No interval change from prior copyright 2011 [employer]- All Rights Reserved
[2019-09-27] MEDS ORDERED: ATROPINE SULFATE INJ 1 MG/10 ML DISP.SYRIN IV ONE (05:27)
[2019-09-27] MEDS ORDERED: ALBUTEROL SULFATE 0.083% NEB 2.5 MG/3 ML AMPUL NEB ONE (05:27)
[2019-09-27] MEDS ORDERED: DEXAMETHASONE SOD PHOS INJ 10 MG/1 ML VIAL IM ONE (05:28)
[2019-09-27] MEDS ORDERED: LEVOFLOXACIN 750 MG TABLET PO ONE (05:28)
[2019-09-27] MEDS ORDERED: IPRATROPIUM/ALBUTEROL 0.5-2.5 MG/3 ML AMPUL NEB ONE (05:39)
--- NOTE | 2019-09-27 05:39 | ER Document Report ---
ED General - General Chief Complaint: Shortness Of Breath Stated Complaint: TROUBLE BREATHING Time Seen by Provider: 09/27/19 05:22 Primary Care Provider: СВЕТЛАНА WHEELER MD [Primary Care Provider] - Follow up as needed Mode of Arrival: Medic Information source: Patient TRAVEL OUTSIDE OF THE [place] IN LAST 30 DAYS: No - HPI Onset: Just prior to arrival - missed Fri dialysis [facility] Onset/Duration: Sudden Quality of pain: No pain Severity: Mild Pain Level: 1 Associated symptoms: Nonproductive cough, Shortness of breath, Other - Using Relieved by: Remaining still Similar symptoms previously: Yes Recently seen / treated by doctor: Yes - Related Data Allergies/Adverse Reactions: DRY GAMBRO DIALYZERS Allergy (Unknown, Uncoded 06/22/18 04:07) "BP drop, vomiting" PAPER TAPE Allergy (Uncoded 06/22/18 04:07) Rash Home Medications: pt w/list Past Medical History - General Information source: Patient - Social History Smoking Status: Current Some Day Smoker Cigarette use (# per day): Yes Chew tobacco use (# tins/day): No Smoking Education Provided: Yes Frequency of alcohol use: None Drug Abuse: None Lives with: Other - Home Family History: Reviewed & Not Pertinent, Hypertension Patient has suicidal ideation: No Patient has homicidal ideation: No - Past Medical History Cardiac Medical History: Reports: Hx DVT, Hx Hypercholesterolemia, Hx Hypertension Denies: Hx Coronary Artery Disease, Hx Heart Attack Pulmonary Medical History: Reports: Hx Asthma, Hx COPD Denies: Hx Bronchitis, Hx Pneumonia Neurological Medical History: Denies: Hx Cerebrovascular Accident, Hx Seizures Renal/ Medical History: Reports: Hx End Stage Renal Disease, Hx Hemodialysis. 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 Psychiatric Medical History: Denies: Hx Depression Past Surgical History: Reports: Hx Neurologic Surgery - Benign brain tumor removed 2010, Hx Vascular Surgery - Right upper arm AV fistula, right and left PermCaths - Immunizations Hx Diphtheria, Pertussis, Tetanus Vaccination: Yes Hx Pneumococcal Vaccination: 02/07/16 Review of Systems - Review of Systems Constitutional: No symptoms reported EENT: Nose discharge Physical Exam - Vital signs Vitals: Temp Pulse Resp BP Pulse Ox 97.7 F 96 24 H 208/113 H 93 09/27/19 02:47 09/27/19 02:47 09/27/19 02:47 09/27/19 02:47 09/27/19 02:47 - General General appearance: Appears well, Other - Was sleeping in room prior to my exam and waking him for the exam. - Respiratory Respiratory status: No respiratory distress Chest status: Nontender Breath sounds: Normal Chest palpation: Normal - Cardiovascular Rhythm: Regular - Abdominal Inspection: Normal Distension: No distension - Extremities General upper extremity: Edema, Other - RUE General lower extremity: Edema - Neurological Neuro grossly intact: Yes Cognition: Normal Orientation: AAOx4 Mili Coma Scale Eye Opening: Spontaneous Mili Coma Scale Verbal: Oriented Mili Coma Scale Motor: Obeys Commands Mili Coma Scale Total: 15 Speech: Normal Cranial nerves: Normal Cerebellar coordination: Normal - Psychological Associated symptoms: Normal affect - Skin Skin Temperature: Warm Skin Moisture: Dry Course - Vital Signs Vital signs: Temp Pulse Resp BP Pulse Ox 97.7 F 96 28 H 196/140 H 100 09/27/19 02:47 09/27/19 02:47 09/27/19 05:25 09/27/19 05:26 09/27/19 05:26 - Diagnostic Test Radiology reviewed: Reports reviewed Critical Care Note - Critical Care Note Total time excluding time spent on procedures (mins): 60 Comments: Advised patient follow-up with dialysis today Discharge - Discharge Clinical Impression: Sleep-disordered breathing, End stage renal disease, ESRD on dialysis Dyspnea Qualifiers: Dyspnea type: unspecified Qualified Code(s): R06.00 - Dyspnea, unspecified Hypertension Qualifiers: Hypertension type: unspecified Qualified Code(s): I10 - Essential (primary) h ypertension Condition: Good Disposition: HOME, SELF-CARE Additional Instructions: Follow-up with dialysis today return to ER for true emergencies take medicines as directed encourage fluids Prescriptions: Levofloxacin [Levaquin 750 mg Tablet] 750 mg PO DAILY #5 tablet Referrals: СВЕТЛАНА WHEELER MD [Primary Care Provider] - Follow up as needed
[2019-09-27] MEDS ORDERED: CLONIDINE HCL 0.2 MG TABLET PO ONE (05:52)
[2019-09-27 06:44] VITALS: BP 150/110
--- NOTE | 2019-09-27 07:36 | EKG REPORT ---
SEVERITY:- ABNORMAL ECG - SINUS RHYTHM LEFT ATRIAL ABNORMALITY ABNORMAL T, CONSIDER ISCHEMIA, LATERAL LEADS : Confirmed by: Sina Trejo MD 27-Sep-2019 07:35:42
== END 2019-09-27 06:44 | disposition home or self-care (01) ==
LOC: ER 02:39
DX: G47.30 Sleep apnea, unspecified (principal); I12.0 Hypertensive chronic kidney disease with stage 5 chronic kidney disease or end stage renal disease; N18.6 End stage renal disease; F17.210 Nicotine dependence, cigarettes, uncomplicated; R05 Cough; R06.02 Shortness of breath; E78.00 Pure hypercholesterolemia, unspecified; Z99.2 Dependence on renal dialysis; Z86.718 Personal history of other venous thrombosis and embolism
CPT/HCPCS: 93005; 94640; 99285; 96372; 71046; 93010; A9270 ×3; J1100; J7620

== ENCOUNTER 2019-10-06 10:02 | Inpatient (IN) | payer MEDICARE ==
[2019-10-06] MEDS ORDERED: NITROGLYCERIN 2% OINTMENT 1 GM PACKET TP ONE (10:30)
--- NOTE | 2019-10-06 10:39 | ER Document Report ---
ED General - General Chief Complaint: Weakness Stated Complaint: WEAKNESS/LOWER EXTREMITY Time Seen by Provider: 10/06/19 10:15 TRAVEL OUTSIDE OF THE [place] IN LAST 30 DAYS: No - HPI Notes: 58-year-old male presenting with a chief complaint of leg weakness and short of breath. This gentleman is followed by Dr. Benson (nephrology) and Dr. Hannon (primary care) and has end-stage renal disease on dialysis. He has missed 2 dialysis sessions. Presents now via EMS complaining of increasing dyspnea over the past 2 days and weakness in legs with difficulty standing. Denies chest pain. Denies vomiting. Denies any focal neurologic symptoms. Denies fever. - Related Data Allergies/Adverse Reactions: DRY GAMBRO DIALYZERS Allergy (Unknown, Uncoded 06/22/18 04:07) "BP drop, vomiting" PAPER TAPE Allergy (Uncoded 06/22/18 04:07) Rash Past Medical History - General Information source: Patient, Emergency Med Personnel, [facility] Records - Social History Smoking Status: Unknown if Ever Smoked Family History: Reviewed & Not Pertinent, Hypertension - Past Medical History Cardiac Medical History: Reports: Hx DVT, Hx Hypercholesterolemia, Hx Hypertension Denies: Hx Coronary Artery Disease, Hx Heart Attack Pulmonary Medical History: Reports: Hx Asthma, Hx COPD Denies: Hx Bronchitis, Hx Pneumonia Neurological Medical History: Denies: Hx Cerebrovascular Accident, Hx Seizures Renal/ Medical History: Reports: Hx End Stage Renal Disease, Hx Hemodialysis. Denies: Hx Peritoneal Dialysis Musculoskeletal Medical History: Reports Hx Arthritis - "DAMAGED NERVE TO RIGHT LEG" Psychiatric Medical History: Denies: Hx Depression Past Surgical History: Reports: Hx Neurologic Surgery - Benign brain tumor removed 2010, Hx Vascular Surgery - Right upper arm AV fistula, right and left PermCaths - Immunizations Hx Diphtheria, Pertussis, Tetanus Vaccination: Yes Hx Pneumococcal Vaccination: 02/07/16 Review of Systems - Review of Systems Notes: Constitutional: Negative for fever. HENT: Negative for sore throat. Eyes: Negative for visual changes. Cardiovascular: Negative for chest pain. Respiratory: As per HPI. Gastrointestinal: Negative for abdominal pain, vomiting or diarrhea. Genitourinary: Negative for dysuria. Musculoskeletal: As per HPI. Skin: Negative for rash. Neurological: Negative for headaches, focal weakness or numbness. 10 point ROS negative except as marked above and in HPI. Physical Exam - Vital signs Vitals: Temp Pulse Resp BP Pulse Ox 98.7 F 66 20 163/128 H 95 10/06/19 10:15 10/06/19 10:15 10/06/19 10:15 10/06/19 10:15 10/06/19 10:15 - Notes Notes: GENERAL: Well-developed well-nourished appearing in no acute distress. SKIN: Good turgor no rashes. HEAD: Normocephalic atraumatic. EYES: PERRLA. EOMI. Conjunctivae and sclerae clear. EARS: CANALS AND TMS CLEAR. NOSE: CLEAR. MOUTH: Moist mucosa. Good dentition. No stridor or edema. No drooling. NECK: Supple. No masses or thyromegaly. No adenopathy. Carotids 2+ without bruits. No JVD. BACK: Symmetrical without tenderness. CHEST: Respirations unlabored. Coarse rales lower two thirds of both lung nur. HEART: Regular rhythm. No murmur gallop or rub. ABDOMEN: Soft nontender without masses, organomegaly or rebound. Bowel sounds normally active. No bruits. GENITALIA: Deferred. EXTREMITIES: AV fistula right upper extremity with positive thrill and bruit 1+ pretibial edema bilaterally. No calf tenderness. Cap refill less than 1.5 seconds. Dorsalis pedis and posterior tibial pulses 3+ and symmetrical. NEUROLOGICAL: GCS 15. Alert and oriented x3. Normal gait. Fluent speech. Cranial nerves II through XII intact. Sensorimotor and cerebellar normal. Norm al tone. PSYCHIATRIC: Appropriate affect. Course - Re-evaluation Re-evalutation: 10/06/19 10:38 I placed Nitropaste for control of blood pressure. IV access is being established and labs have been requested. Clinically the patient is fluid overloaded and needs dialysis. His EKG also demonstrates prominent T waves peaking consistent with hyperkalemia. Case is been discussed with his medical sales associate Dr. Benson who will arrange for dialysis. I will also request admission by the patient's primary care attending Dr. Hannon. - Vital Signs Vital signs: Temp Pulse Resp BP Pulse Ox 98.7 F 66 20 163/128 H 95 10/06/19 10:15 10/06/19 10:15 10/06/19 10:15 10/06/19 10:15 10/06/19 10:15 - Laboratory Result Diagrams: 10/06/19 10:40 10/06/19 10:40 Laboratory results interpreted by me: 10/06/19 10/06/19 10:40 10:40 RBC 3.74 L Hgb 11.5 L Hct 33.7 L RDW 15.5 H Sodium 136.6 L Potassium 8.6 H* Chloride 95 L BUN 79 H Creatinine 17.51 H Est GFR ( Amer) 3 L Est GFR (MDRD) Non-Af 3 L Direct Bilirubin 0.7 H Total Protein 8.6 H - EKG Interpretation by Me Additional EKG results interpreted by me: 10/06/19 10:38 Twelve-lead EKG from 1029 hrs. reviewed by me contemporaneously demonstrating normal sinus rhythm with rate of 68 and axis of 25 degrees. Patient has prominent peaking of T waves consistent with hyperkalemia which is new compared to previous tracing of 09/27/2019. Critical Care Note - Critical Care Note Total time excluding time spent on procedures (mins): 35 Comments: Spoke with Dr. Benson and patient will be dialyzed immediately. IV glucose, insulin and calcium gluconate requested. Continuous cardiac monitoring. Discharge - Discharge Clinical Impression: ESRD (end stage renal disease) Condition: Fair Disposition: ADMITTED INPATIENT Admitting Provider: Riddhi Unit Admitted: [facility]
[2019-10-06 11:03] LABS: ABSOLUTE BASOPHILS # (AUTO) 0.1 10^3/uL (0.0-0.2); ABSOLUTE EOSINOPHILS # (AUTO) 0.1 10^3/uL (0.0-0.6); ABSOLUTE LYMPHOCYTES (AUTO) 0.8 10^3/uL (0.5-4.7); ABSOLUTE MONOCYTES (AUTO) 0.3 10^3/uL (0.1-1.4); ABSOLUTE NEUT (AUTO) 3.9 10^3/uL (1.7-8.2); BASOPHILS % (AUTO) 1.1 % (0-2); EOSINOPHILS % (AUTO) 1.7 % (0-6); HEMATOCRIT 33.7 % (37.9-51.0); HEMOGLOBIN 11.5 g/dL (13.5-17.0); LYMPHOCYTES % (AUTO) 15.6 % (13-45); MEAN CORPUSCULAR HEMOGLOBIN 30.9 pg (27.0-33.4); MEAN CORPUSCULAR HGB CONC 34.3 g/dL (32.0-36.0); MEAN CORPUSCULAR VOLUME 90 fl (80-97); MONOCYTES % (AUTO) 6.6 % (3-13); PLATELET COUNT 153 10^3/uL (150-450); RED BLOOD COUNT 3.74 10^6/uL (4.35-5.55); RED CELL DISTRIBUTION WIDTH 15.5 % (11.5-14.0); TOTAL CELLS COUNTED % (AUTO) 100 %; WHITE BLOOD COUNT 5.2 10^3/uL (4.0-10.5)
--- NOTE | 2019-10-06 11:10 | RADIOLOGY REPORT (SQ) ---
EXAM DESCRIPTION: CHEST SINGLE VIEW COMPLETED DATE/TIME: 10/06/2019 10:59 am REASON FOR STUDY: dyspnea, ESRD COMPARISON: 09/27/2019 EXAM PARAMETERS: NUMBER OF VIEWS: One view. TECHNIQUE: Single frontal radiographic view of the chest acquired. RADIATION DOSE: NA LIMITATIONS: None. FINDINGS: LUNGS AND PLEURA: Bilateral interstitial alveolar opacities, improved from prior. No larg e effusion. No pneumothorax. MEDIASTINUM AND HILAR STRUCTURES: No discrete mass. HEART AND VASCULAR STRUCTURES: Enlarged cardiac silhouette. Central vascular congestion. BONES: No acute findings. HARDWARE: Left internal jugular central venous catheter with tip at right atrium. Axillary surgical clips overlie right chest. OTHER: No other significant finding. IMPRESSION: 1. Improved but persistent bilateral interstitial and alveolar opacities, likely repres enting edema. No large effusion. TECHNICAL DOCUMENTATION: JOB ID: [id number] [email or web address]- All Rights Reserved Reading location - IP/workstation name: [email or web address]
[2019-10-06 11:16] LABS: ALBUMIN 4.6 g/dL (3.5-5.0); ALKALINE PHOSPHATASE 69 U/L (38-126); ANION GAP 16 (5-19); ASPARTATE AMINO TRANSFERASE 27 U/L (17-59); BILIRUBIN,DIRECT 0.7 mg/dL (0.0-0.4); BILIRUBIN,TOTAL 0.9 mg/dL (0.2-1.3); BLOOD UREA NITROGEN 79 mg/dL (7-20); CALCIUM 9.8 mg/dL (8.4-10.2); CARBON DIOXIDE 26 mmol/L (22-30); CHLORIDE 95 mmol/L (98-107); GLUCOSE 92 mg/dL (75-110); TOTAL PROTEIN 8.6 g/dL (6.3-8.2)
[2019-10-06 11:45] LABS: POTASSIUM 8.6 mmol/L (3.6-5.0)
[2019-10-06] MEDS ORDERED: HEPARIN SOD (PORCINE) 1,000 UNIT/ML 10 ML VIAL IV PRN (11:56)
[2019-10-06] MEDS ORDERED: CALCIUM GLUCONATE 1000 MG/10 ML INJ IV ONE (12:07)
[2019-10-06] MEDS ORDERED: INSULIN REG, HUMAN 100 UNIT/ML 3 ML VIAL (PYX) IV ONE (12:08)
[2019-10-06] MEDS ORDERED: DEXTROSE 50%-WATER 25 GM/50 ML DISP.SYRIN IV ONE (12:08)
--- NOTE | 2019-10-06 14:24 | EKG REPORT ---
SEVERITY:- ABNORMAL ECG - SINUS RHYTHM NONSPECIFIC T ABNORMALITIES, LATERAL LEADS : Confirmed by: Ana Hagan 06-Oct-2019 14:22:13
--- NOTE | 2019-10-06 15:11 | PDOC CONSULTATION ---
Consultation Consult Date: 10/06/19 Provider Consulted: Juanita CRESPO Consult reason:: Urgent hemodialysis in the setting of severe hyperkalemia with EKG changes and muscular weakness. History of Present Illness Admission Date/PCP: 10/06/19 11:18 СВЕТЛААН WHEELER MD History of Present Illness: OLINDA OCAMPO is a 58 year old male with history of ESRD on hemodialysis in the background of chronic hypertension, severe noncompliance with diet medications and dialysis comes to the ER with complaints of progressive weaknesses of the legs with intermittent exacerbations which has been going on since last night. His last dialysis was was Friday and he missed his dialysis on Friday. He admi ts to eating the wrong kind of food which he has been doing for quite some time resulting not really in fluid overload but also severe intermittent hyperkalemia. He denies any history of chest pain shortness of breath focal deficits. No history of any weakness of the upper extremities. He was evaluated in the ER and while waiting for the labs his EKG was found to have some peaked T waves in a couple of leads with no prolonged SC intervals or widening QRS. Labs soon came after that showing that his potassium was severely high at 8.9. The ER physician called and immediate dialysis is being instituted at the moment. In the meanwhile I have advocated giving 2 g of IV calcium to stabilize his myocardium. Patient was subsequently seen on dialysis. Blood pressure is high at 180/100 and and 6. Patient is undergoing dialysis without any issues on a 1K/22K bath. Explained to him the consequences of severe hyper kalemia. Past Medical History Cardiac Medical History: Reports: DVT, Hyperlipidemia, Hypertension-primary Denies: Coronary Artery Disease, Myocardial Infarction Pulmonary Medical History: Reports: Asthma, Chronic Obstructive Pulmonary Disease (COPD) Denies: Bronchitis, Pneumonia Neurological Medical History: Denies: Seizures Renal/ Medical History: Reports: End Stage Renal Disease, Secondary Hyperparathyroidism Musculoskeltal Medical History: Reports: Arthritis - "DAMAGED NERVE TO RIGHT LEG" Psychiatric Medical History: Denies: Depression Hematology Medical History: Reports Anemia of Chronic Kidney Disease Past Surgical History Past Surgical History: Reports: Vascular Surgery - Right upper arm AV fistula, right and left PermCaths Social History Smoking Status: Unknown if Ever Smoked Frequency of Alcohol Use: Rare Hx Recreational Drug Use: No Drugs: None Hx Prescription Drug Abuse: No Family History Parental Family History Reviewed: Yes - No history of ESRD. Children Family History Reviewed: Yes - Has a daughter with ESRD. Sibling(s) Family History Reviewed.: No Medication/Allergy Home Medications: Acetaminophen [Tylenol 325 mg Tablet] 650 mg PO Q4HP PRN 08/05/19 Albuterol Sulfate [Proair HFA Inhalation Aerosol 8.5 gm MDI] 2 puff IH Q4HP PRN 08/05/19 Amiodarone HCl [Cordarone 200 mg Tablet] 200 mg PO DAILY 08/05/19 Calcium Acetate [Phoslo 667 mg Capsule] 2,001 mg PO MEALS 08/05/19 Calcium Acetate [Phoslo 667 mg Capsule] 667 mg PO .BIDWITHSNACKS 08/05/19 Calcium Carbonate [Tums] 200 mg PO DAILYP PRN 08/05/19 Cinacalcet HCl [Sensipar 30 mg Tablet] 30 mg PO DAILY 08/05/19 Clonidine HCl [Catapres 0.1 mg Tablet] 0.1 mg PO DAILY 08/05/19 Metoprolol Tartrate [Lopressor 25 mg Tablet] 25 mg PO DAILY 08/05/19 Simvastatin [Zocor 20 mg Tablet] 20 mg PO QHS 08/05/19 Apixaban [Eliquis 2.5 mg Tablet] 2.5 mg PO BID #60 tablet 08/06/19 Allergies/Adverse Reactions: DRY GAMBRO DIALYZERS Allergy (Unknown, Uncoded 06/22/18 04:07) "BP drop, vomiting" PAPER TAPE Allergy (Uncoded 06/22/18 04:07) Rash Review of Systems Constitutional: PRESENT: fatigue, weakness. ABSENT: anorexia, chills, fever(s), headache(s), night sweats Nose, Mouth, and Throat: ABSENT: mouth pain, sore throat Cardiovascular: PRESENT: edema. ABSENT: chest pain, dyspnea on exertion, orthropnea, palpitations Respiratory: ABSENT: dyspnea, hemoptysis Gastrointestinal: ABSENT: abdominal pain, bloating, coffee ground emesis, diarrhea, dysphagia, heartburn, hematemesis, nausea, vomiting Musculoskeletal: ABSENT: deformity, joint swelling Integumentary: ABSENT: erythema, lesions, pruritus, rash Neurological: PRESENT: weakness - Of lower extremities and take sometimes come intermittently. No history of any paresthesias or discoloration of the skin.. ABSENT: abnormal movements, confusion, convulsions, memory loss, numbness, paresthesias, restless legs Hematologic/Lymphatic: ABSENT: easy bruising, lymphadenopathy Physical Exam Vital Signs: Temp Pulse Resp BP Pulse Ox 98.7 F 66 20 163/128 H 95 10/06/19 10:15 10/06/19 10:15 10/06/19 10:15 10/06/19 10:15 10/06/19 10:15 Intake & Output 10/05/19 10/06/19 10/07/19 06:59 06:59 06:59 Weight 103 kg General appearance: PRESENT: no acute distress Eye exam: PRESENT: EOMI, PERRLA. ABSENT: scleral icterus Ear exam: PRESENT: normal external ear exam Mouth exam: PRESENT: moist, neck supple Neck exam: ABSENT: lymphadenopathy, meningismus, tenderness, thyromegaly, tracheal deviation Respiratory exam: PRESENT: clear to auscultation dave. ABSENT: crackles Cardiovascular exam: PRESENT: +S1, +S2 GI/Abdominal exam: PRESENT: normal bowel sounds, soft. ABSENT: organomegaly, tenderness Extremities exam: PRESENT: pedal edema Neurological exam: PRESENT: alert, awake, oriented to person, oriented to place, oriented to time Psychiatric exam: PRESENT: appropriate affect Skin exam: ABSENT: cyanosis, erythema, rash Results Laboratory Results: 10/06/19 10:40 10/06/19 10/06/19 10:40 10:40 WBC 5.2 RBC 3.74 L Hgb 11.5 L Hct 33.7 L MCV 90 MCH 30.9 MCHC 34.3 RDW 15.5 H Plt Count 153 Seg Neutrophils % 75.0 Sodium 136.6 L Potassium 8.6 H* Chloride 95 L Carbon Dioxide 26 Anion Gap 16 BUN 79 H Creatinine 17.51 H Est GFR ( Amer) 3 L Glucose 92 Calcium 9.8 Total Bilirubin 0.9 AST 27 Alkaline Phosphatase 69 Total Protein 8.6 H Albumin 4.6 Impressions: Chest X-Ray 10/06/19 10:26 IMPRESSION: 1. Improved but persistent bilateral interstitial and alveolar opacities, likely representing edema. No large effusion. Assessment & Plan - Diagnosis (1) Acute hyperkalemia Plan: With EKG changes and also resulting in intermittent lower extremity weakness. Myocardial stability has been done with introduction of IV calcium. Urgent hemodialysis is being instituted on a 1K/2 K for 4 hours. Intermittent levels will be checked. Discussed with the patient about the serious consequences of potassium of this level including cardiac arrest. Advised on compliance with diet and medications and dialysis treatments in the future. (2) End-stage renal disease on hemodialysis Plan: Patient seen while undergoing urgent hemodialysis given severe hyperkalemia with EKG changes and muscular weakness. Patient is critical. Patient undergoing dialysis without any issues currently. Blood pressure is high. This will see response after ultrafiltration of approximately 2-3 L of fluid. Dialysis is being supervised to ensure safe and smooth procedure. Dialysis orders were reviewed with the treating dialysis nurse. (3) Hypertension Plan: Uncontrolled. See response to ultrafiltration. (5) Lower extremity weakness Plan: Secondary to hyperkalemia. No evidences of any focal neurological deficits. See response to hemodialysis.
[2019-10-06 15:35] LABS: ANION GAP 9 (5-19); CALCIUM 8.7 mg/dL (8.4-10.2); CARBON DIOXIDE 29 mmol/L (22-30); CHLORIDE 97 mmol/L (98-107); GLUCOSE 87 mg/dL (75-110)
[2019-10-06 15:50] LABS: BLOOD UREA NITROGEN 54 mg/dL (7-20)
[2019-10-06 15:54] LABS: POTASSIUM 6.2 mmol/L (3.6-5.0)
--- NOTE | 2019-10-06 17:22 | PDOC H&P ---
History of Present Illness Admission Date/PCP: 10/06/19 11:18 СВЕТЛАНА WHEELER MD History of Present Illness: OLINDA OCAMPO is a 58 year old male,, He has a history of end-stage renal d isease on maintenance hemodialysis, hypertension he came to the emergency room for evaluation of generalized body weakness for the last few days, is on maintenance hemodialysis, he missed 2 sessions of dialysis. In the emergency room he was found to have severe hyperkalemia, the potassium was 8.9 he required emergency hemodialysis, nephrology was consulted, he was dialyzed in the emergency room ,I saw him in the emergency room while undergoing dialysis Past Medical History Cardiac Medical History: Reports: DVT, Hyperlipidema, Hypertension Pulmonary Medical History: Reports: Asthma, Chronic Obstructive Pulmonary Disease (COPD) Renal/ Medical History: Reports: End Stage Renal Disease Musculoskeltal Medical History: Reports: Arthritis - "DAMAGED NERVE TO RIGHT LEG" Past Surgical History Past Surgical History: Reports: Vascular Surgery - Right upper arm AV fistula, right and left PermCaths Social History Smoking Status: Never Smoker Frequency of Alcohol Use: Rare Hx Recreational Drug Use: No Drugs: None Hx Prescription Drug Abuse: No Family History Family History: Reviewed & Not Pertinent, Hypertension Parental Family History Reviewed: Yes Children Family History Reviewed: Yes Sibling(s) Family History Reviewed.: Yes Medication/Allergy Home Medications: Acetaminophen [Tylenol 325 mg Tablet] 650 mg PO Q4HP PRN 08/05/19 Albuterol Sulfate [Proair HFA Inhalation Aerosol 8.5 gm MDI] 2 puff IH Q4HP PRN 08/05/19 Amiodarone HCl [Cordarone 200 mg Tablet] 200 mg PO DAILY 08/05/19 Calcium Acetate [Phoslo 667 mg Capsule] 2,001 mg PO MEALS 08/05/19 Calcium Acetate [Phoslo 667 mg Capsule] 667 mg PO .BIDWITHSNACKS 08/05/19 Calcium Carbonate [Tums] 200 mg PO DAILYP PRN 08/05/19 Cinacalcet HCl [Sensipar 30 mg Tablet] 30 mg PO DAILY 08/05/19 Clonidine HCl [Catapres 0.1 mg Tablet] 0.1 mg PO DAILY 08/05/19 Metoprolol Tartrate [Lopressor 25 mg Tablet] 25 mg PO DAILY 08/05/19 Simvastatin [Zocor 20 mg Tablet] 20 mg PO QHS 08/05/19 Apixaban [Eliquis 2.5 mg Tablet] 2.5 mg PO BID #60 tablet 08/06/19 Allergies/Adverse Reactions: DRY GAMBRO DIALYZERS Allergy (Unknown, Uncoded 06/22/18 04:07) "BP drop, vomiting" PAPER TAPE Allergy (Uncoded 06/22/18 04:07) Rash Review of Systems Constitutional: PRESENT: weakness Eyes: ABSENT: visual disturbances Ears: ABSENT: hearing changes Cardiovascular: ABSENT: chest pain, dyspnea on exertion, edema, orthropnea, palpitations Respiratory: ABSENT: cough, hemoptysis Gastrointestinal: ABSENT: abdominal pain, constipation, diarrhea, hematemesis, hematochezia, nausea, vomiting Genitourinary: ABSENT: dysuria, hematuria Musculoskeletal: PRESENT: muscle weakness. ABSENT: joint swelling Integumentary: ABSENT: rash, wounds Neurological: PRESENT: weakness. ABSENT: abnormal gait, abnormal speech, confusion, dizziness, focal weakness, syncope Psychiatric: ABSENT: anxiety, depression, homidical ideation, suicidal ideation Endocrine: ABSENT: cold intolerance, heat intolerance, menstrual abnormalities, polydipsia, polyuria Hematologic/Lymphatic: ABSENT: easy bleeding, easy bruising, lymphadenopathy Physical Exam Vital Signs: Temp Pulse Resp BP Pulse Ox 98.7 F 66 28 H 167/93 H 93 10/06/19 10:15 10/06/19 10:15 10/06/19 17:01 10/06/19 17:00 10/06/19 17:01 Intake & Output 10/05/19 10/06/19 10/07/19 06:59 06:59 06:59 Weight 103 kg General appearance: PRESENT: no acute distress, well-developed, well-nourished Head exam: PRESENT: atraumatic, normocephalic Eye exam: PRESENT: conjunctiva pink, EOMI, PERRLA. ABSENT: scleral icterus Ear exam: PRESENT: normal external ear exam Mouth exam: PRESENT: moist, tongue midline Neck exam: PRESENT: full ROM Respiratory exam: PRESENT: clear to auscultation dave Cardiovascular exam: PRESENT: RRR, +S1, +S2 Pulses: PRESENT: normal dorsalis pedis pul, +2 pedal pulses bilateral Vascular exam: PRESENT: normal capillary refill, other - Lymphedema of the right upper extremity GI/Abdominal exam: PRESENT: normal bowel sounds, soft Rectal exam: PRESENT: deferred Neurological exam: PRESENT: alert, CN II-XII grossly intact Psychiatric exam: PRESENT: appropriate affect, normal mood Skin exam: PRESENT: dry, intact, warm Results Laboratory Results: 10/06/19 10:40 10/06/19 13:45 10/06/19 10/06/19 10/06/19 10:40 10:40 13:45 WBC 5.2 RBC 3.74 L Hgb 11.5 L Hct 33.7 L MCV 90 MCH 30.9 MCHC 34.3 RDW 15.5 H Plt Count 153 Seg Neutrophils % 75.0 Sodium 136.6 L 135.4 L Potassium 8.6 H* 6.2 H* D Chloride 95 L 97 L Carbon Dioxide 26 29 Anion Gap 16 9 BUN 79 H 54 H D Creatinine 17.51 H 11.29 H Est GFR ( Amer) 3 L 6 L Glucose 92 87 Calcium 9.8 8.7 Total Bilirubin 0.9 AST 27 Alkaline Phosphatase 69 Total Protein 8.6 H Albumin 4.6 Impressions: Chest X-Ray 10/06/19 10:26 IMPRESSION: 1. Improved but persistent bilateral interstitial and alveolar opacities, likely representing edema. No large effusion. Assessment & Plan - Diagnosis (1) Hyperkalemia Is this a current diagnosis for this admission?: Yes Plan: Patient required emergency hemodialysis consultation required form nephrology (2) End stage renal disease Is this a current diagnosis for this admission?: Yes Plan: Per nephrology
[2019-10-06] MEDS: HEPARIN SOD (PORCINE) 5,000 UNIT/ML 1 ML VIAL SUBCUT SCH (18:12)
[2019-10-06] MEDS ORDERED: CALCIUM CARBONATE 500 MG TAB.CHEW PO PRN (18:56)
[2019-10-06] MEDS ORDERED: ALBUTEROL SULFATE HFA (90 MCG/PUFF) 200 PUFF/8.5 GM MDI IH PRN (18:56)
[2019-10-06] MEDS ORDERED: ACETAMINOPHEN 325 MG TABLET PO PRN (18:56)
[2019-10-06] MEDS ORDERED: CALCIUM ACETATE 667 MG CAPSULE PO PRN (19:00)
[2019-10-06 19:20] LABS: INTERNATIONAL RATION (INR) 1.16; PROTHROMBIN TIME 14.9 SEC (11.4-15.4)
[2019-10-06 19:21] LABS: PARTIAL THROMBOPLASTIN TIME 33.7 SEC (23.5-35.8)
[2019-10-06] MEDS ORDERED: DIPHENHYDRAMINE HCL 25 MG CAPSULE PO ONE (19:30)
[2019-10-06 19:39] LABS: PHOSPHORUS 5.4 mg/dL (2.5-4.5)
[2019-10-06 19:40] LABS: ANION GAP 13 (5-19); BLOOD UREA NITROGEN 39 mg/dL (7-20); CALCIUM 9.6 mg/dL (8.4-10.2); CARBON DIOXIDE 27 mmol/L (22-30); CHLORIDE 96 mmol/L (98-107); GLUCOSE 140 mg/dL (75-110)
[2019-10-06 19:42] LABS: POTASSIUM 5.1 mmol/L (3.6-5.0)
[2019-10-06 19:49] LABS: CREATINE KINASE MB 2.42 ng/mL (<4.55)
[2019-10-06 19:54] LABS: FREE T4 (FREE THYROXINE) 1.63 ng/dL (0.78-2.19)
[2019-10-06 20:07] LABS: THYROID STIMULATING HORMONE 3.7 uIU/mL (0.47-4.68)
[2019-10-06 20:29] LABS: TROPONIN I 0.143 ng/mL
[2019-10-06] MEDS: SIMVASTATIN 10 MG TABLET PO SCH (21:33)
[2019-10-06] MEDS: CLONIDINE HCL 0.1 MG TABLET PO SCH (21:36)
[2019-10-06] MEDS: APIXABAN 2.5 MG TABLET PO SCH (21:36)
[2019-10-06] MEDS: CINACALCET HCL 30 MG TABLET PO SCH (21:36)
[2019-10-06] MEDS: AMIODARONE HCL 200 MG TABLET PO SCH (21:37)
[2019-10-06] MEDS: CALCIUM ACETATE 667 MG CAPSULE PO SCH (21:38)
[2019-10-06] MEDS: METOPROLOL TARTRATE 25 MG TABLET PO SCH (21:39)
[2019-10-07 01:34] LABS: CREATINE KINASE MB 1.99 ng/mL (<4.55); TROPONIN I 0.152 ng/mL
[2019-10-07] MEDS: HEPARIN SOD (PORCINE) 5,000 UNIT/ML 1 ML VIAL SUBCUT SCH ×3 (03:48→17:06)
[2019-10-07 07:23] LABS: ABSOLUTE BASOPHILS # (AUTO) 0.1 10^3/uL (0.0-0.2); ABSOLUTE EOSINOPHILS # (AUTO) 0.3 10^3/uL (0.0-0.6); ABSOLUTE MONOCYTES (AUTO) 0.6 10^3/uL (0.1-1.4); ABSOLUTE NEUT (AUTO) 2.3 10^3/uL (1.7-8.2); BASOPHILS % (AUTO) 1.8 % (0-2); EOSINOPHILS % (AUTO) 6.4 % (0-6); HEMATOCRIT 34.2 % (37.9-51.0); HEMOGLOBIN 11.6 g/dL (13.5-17.0); LYMPHOCYTES % (AUTO) 22.9 % (13-45); MEAN CORPUSCULAR HEMOGLOBIN 30.3 pg (27.0-33.4); MEAN CORPUSCULAR VOLUME 89 fl (80-97); MONOCYTES % (AUTO) 13.8 % (3-13); PLATELET COUNT 137 10^3/uL (150-450); RED BLOOD COUNT 3.83 10^6/uL (4.35-5.55); RED CELL DISTRIBUTION WIDTH 15.8 % (11.5-14.0); SEGMENTED NEUTROPHILS % (AUTO) 55.1 % (42-78); TOTAL CELLS COUNTED % (AUTO) 100 %; WHITE BLOOD COUNT 4.2 10^3/uL (4.0-10.5)
[2019-10-07 07:58] LABS: CREATINE KINASE MB 2.02 ng/mL (<4.55)
[2019-10-07 08:01] LABS: ALBUMIN 3.9 g/dL (3.5-5.0); ALKALINE PHOSPHATASE 58 U/L (38-126); ANION GAP 15 (5-19); ASPARTATE AMINO TRANSFERASE 23 U/L (17-59); BILIRUBIN,DIRECT 0.5 mg/dL (0.0-0.4); BILIRUBIN,TOTAL 0.8 mg/dL (0.2-1.3); BLOOD UREA NITROGEN 45 mg/dL (7-20); CALCIUM 8.6 mg/dL (8.4-10.2); CARBON DIOXIDE 26 mmol/L (22-30); CHLORIDE 95 mmol/L (98-107); CHOLESTEROL 174.02 mg/dL (0-200); DIRECT LDL 90 mg/dL (<100); GLUCOSE 79 mg/dL (75-110); TRIGLYCERIDES 57 mg/dL (<150)
[2019-10-07 08:04] LABS: POTASSIUM 6.3 mmol/L (3.6-5.0); TROPONIN I 0.15 ng/mL
[2019-10-07] MEDS: CALCIUM ACETATE 667 MG CAPSULE PO SCH ×3 (08:44→16:22)
[2019-10-07] MEDS: CLONIDINE HCL 0.1 MG TABLET PO SCH (09:53)
[2019-10-07] MEDS: AMIODARONE HCL 200 MG TABLET PO SCH (09:53)
[2019-10-07] MEDS: CINACALCET HCL 30 MG TABLET PO SCH (09:53)
[2019-10-07] MEDS: METOPROLOL TARTRATE 25 MG TABLET PO SCH (09:53)
[2019-10-07] MEDS: APIXABAN 2.5 MG TABLET PO SCH ×2 (09:53→17:15)
[2019-10-07] MEDS ORDERED: SODIUM POLYSTYRENE SULFONATE 15 GM/60 ML PO ONE (10:00)
--- NOTE | 2019-10-07 11:31 | PDOC PROGRESS REPORT ---
Subjective Progress Note for:: 10/07/19 Reason For Visit: Patient seen today. He is generally feeling a whole lot better. Improved weakness of his lower extremities. Good appetite. Says watching diet. Labs and medications reviewed with the patient. Labs shows potassium high at 6.3. Physical Exam Vital Signs: Temp Pulse Resp BP Pulse Ox 97.6 F 62 18 168/75 H 96 10/07/19 07:30 10/07/19 07:30 10/07/19 07:30 10/07/19 07:30 10/07/19 07:30 Intake & Output 10/06/19 10/07/19 10/08/19 06:59 06:59 06:59 Intake Total 222 Output Total 4500 Balance -4278 Weight 91.4 kg General appearance: PRESENT: no acute distress Respiratory exam: PRESENT: clear to auscultation dave, decreased breath sounds. ABSENT: crackles Cardiovascular exam: PRESENT: +S1, +S2 GI/Abdominal exam: PRESENT: normal bowel sounds, soft. ABSENT: organomegaly, tenderness Extremities exam: PRESENT: pedal edema Neurological exam: PRESENT: alert, awake, oriented to person, oriented to place Psychiatric exam: PRESENT: appropriate affect Results Laboratory Results: 10/07/19 06:58 10/07/19 06:58 10/06/19 10/06/19 10/06/19 10:40 13:45 19:00 WBC RBC Hgb Hct MCV MCH MCHC RDW Plt Count Seg Neutrophils % Sodium 136.6 L 135.4 L 136.2 L Potassium 8.6 H* 6.2 H* D 5.1 H D Chloride 95 L 97 L 96 L Carbon Dioxide 26 29 27 Anion Gap 16 9 13 BUN 79 H 54 H D 39 H Creatinine 17.51 H 11.29 H 10.27 H Est GFR ( Amer) 3 L 6 L 6 L Glucose 92 87 140 H Calcium 9.8 8.7 9.6 Phosphorus Magnesium Total Bilirubin 0.9 AST 27 Alkaline Phosphatase 69 Ammonia Total Protein 8.6 H Albumin 4.6 Triglycerides Cholesterol LDL Cholesterol Direct VLDL Cholesterol HDL Cholesterol Amylase Lipase TSH Free T4 10/06/19 10/06/19 10/06/19 19:00 19:00 19:00 WBC RBC Hgb Hct MCV MCH MCHC RDW Plt Count Seg Neutrophils % Sodium Potassium Cancelled Chloride Carbon Dioxide Anion Gap BUN Creatinine Est GFR ( Amer) Glucose Calcium Phosphorus 5.4 H Magnesium 2.3 Total Bilirubin AST Alkaline Phosphatase Ammonia < 8.7 L Total Protein Albumin Triglycerides Cholesterol LDL Cholesterol Direct VLDL Cholesterol HDL Cholesterol Amylase 119 H Lipase 55.7 TSH 3.70 Free T4 1.63 10/07/19 10/07/19 06:58 06:58 WBC 4.2 RBC 3.83 L Hgb 11.6 L Hct 34.2 L MCV 89 MCH 30.3 MCHC 34.0 RDW 15.8 H Plt Count 137 L Seg Neutrophils % 55.1 Sodium 136.0 L Potassium 6.3 H* D Chloride 95 L Carbon Dioxide 26 Anion Gap 15 BUN 45 H Creatinine 11.50 H Est GFR ( Amer) 6 L Glucose 79 Calcium 8.6 Phosphorus Magnesium Total Bilirubin 0.8 AST 23 Alkaline Phosphatase 58 Ammonia Total Protein 7.0 Albumin 3.9 Triglycerides 57 Cholesterol 174.02 LDL Cholesterol Direct 90 VLDL Cholesterol 11.0 HDL Cholesterol 59 Amylase Lipase TSH Free T4 10/06/19 10/06/19 10/07/19 19:00 19:00 00:47 CK-MB (CK-2) 2.42 1.99 Troponin I 0.143 0.152 NT-Pro-B Natriuret Pep 57019 H 10/07/19 06:58 CK-MB (CK-2) 2.02 Troponin I 0.150 NT-Pro-B Natriuret Pep Impressions: Chest X-Ray 10/06/19 10:26 IMPRESSION: 1. Improved but persistent bilateral interstitial and alveolar opacities, likely representing edema. No large effusion. Assessment & Plan - Diagnosis (1) Acute hyperkalemia Plan: He got much better after urgent dialysis yesterday with evening potassium down to 5.1. However today is up at 6.3. We will treat him with Kayexalate and follow-up on labs. Plan for dialysis again tomorrow (2) End-stage renal disease on hemodialysis Plan: Had urgent dialysis yesterday for severe symptomatic hyperkalemia. We will plan for dialysis again tomorrow. (3) Hypertension Plan: Improving. Monitor. (4) Non-compliance Plan: Advised on compliance with diet medications and dialysis treatments. (5) Lower extremity weakness Plan: Resolved.
[2019-10-07 15:34] LABS: ANION GAP 15 (5-19); BLOOD UREA NITROGEN 49 mg/dL (7-20); CALCIUM 8.6 mg/dL (8.4-10.2); CARBON DIOXIDE 29 mmol/L (22-30); CHLORIDE 93 mmol/L (98-107); GLUCOSE 93 mg/dL (75-110); POTASSIUM 5.5 mmol/L (3.6-5.0)
[2019-10-07] MEDS: SIMVASTATIN 10 MG TABLET PO SCH (21:27)
--- NOTE | 2019-10-07 21:53 | PDOC PROGRESS REPORT ---
Subjective Progress Note for:: 10/07/19 Subjective:: Patient seen by the bedside, he feels better today Reason For Visit: SEVERE SYMPTOMATIC HYPERKALEMIA IN PATIENT WITH Physical Exam Vital Signs: Temp Pulse Resp BP Pulse Ox 97.8 F 63 20 155/102 H 100 10/07/19 19:37 10/07/19 19:37 10/07/19 19:37 10/07/19 19:37 10/07/19 19:37 Intake & Output 10/06/19 10/07/19 10/08/19 06:59 06:59 06:59 Intake Total 222 720 Output Total 4500 0 Balance -4278 720 Weight 91.4 kg General appearance: PRESENT: no acute distress Eye exam: PRESENT: PERRLA Respiratory exam: PRESENT: clear to auscultation dave Cardiovascular exam: PRESENT: +S1, +S2 GI/Abdominal exam: PRESENT: soft Neurological exam: PRESENT: alert Results Laboratory Results: 10/07/19 06:58 10/07/19 14:53 10/07/19 10/07/19 10/07/19 06:58 06:58 14:53 WBC 4.2 RBC 3.83 L Hgb 11.6 L Hct 34.2 L MCV 89 MCH 30.3 MCHC 34.0 RDW 15.8 H Plt Count 137 L Seg Neutrophils % 55.1 Sodium 136.0 L 137.1 Potassium 6.3 H* D 5.5 H Chloride 95 L 93 L Carbon Dioxide 26 29 Anion Gap 15 15 BUN 45 H 49 H Creatinine 11.50 H 12.70 H Est GFR ( Amer) 6 L 5 L Glucose 79 93 Calcium 8.6 8.6 Total Bilirubin 0.8 AST 23 Alkaline Phosphatase 58 Total Protein 7.0 Albumin 3.9 Triglycerides 57 Cholesterol 174.02 LDL Cholesterol Direct 90 VLDL Cholesterol 11.0 HDL Cholesterol 59 10/06/19 10/06/19 10/07/19 19:00 19:00 00:47 CK-MB (CK-2) 2.42 1.99 Troponin I 0.143 0.152 NT-Pro-B Natriuret Pep 80102 H 10/07/19 06:58 CK-MB (CK-2) 2.02 Troponin I 0.150 NT-Pro-B Natriuret Pep Impressions: Chest X-Ray 10/06/19 10:26 IMPRESSION: 1. Improved but persistent bilateral interstitial and alveolar opacities, likely representing edema. No large effusion. Assessment & Plan - Diagnosis (1) Hyperkalemia Is this a current diagnosis for this admission?: Yes (2) End stage renal disease Is this a current diagnosis for this admission?: Yes - Time Time Spent with patient: 15-24 minutes
--- NOTE | 2019-10-07 22:40 | PDOC CONSULTATION ---
Consultation-Blank Consultation: CARDIOLOGY CONSULTATION by Dr. Amanda Dumont on 10/07/2019. Patient seen at 4:30 PM. 60 minutes spent with patient more than 50% time spent in direct patient care. REASON FOR CONSULTATION: Patient admitted with elevated troponin I.? Non-ST elevation CT. CONSULT REQUESTING PHYSICIAN: Dr. Hannon. HISTORY OF PRESENT ILLNESS. Patient is a 58-year-old Afro-[place]ian male with history of hypertension, paroxysmal atrial fib flutter at present in sinus rhythm and also patient on Eliquis and history of end-stage renal disease on hemodialysis, who is been known to be noncompliant with diet medication and appointments for dialysis states that he has missed his last dialysis appointment. He also states that he has not been very compliant with foods and is been eating foods that he should not be eating. He states that he could not get out of the bathtub and felt very weak. He also had shortness of breath with PND orthopnea. There is no chest pain the patient denies any palpitations. There is no near syncope or syncope but the patient did feel dizzy. In the emergency room the patient was found to be in volume overload CHF and also he was hyperkalemic with a potassium in the 8.9 range. The patient did have dialysis is feeling much better now. He denies any chest pain or discomfort. Of note the patient had a IV Lexiscan Cardiolite stress test in April 2019 here which showed no reversible ischemia and no evidence of CT. Clinically the patient by history has no coronary artery disease or CT. He has an AV fistula which was nonfunctional and multiple attempts to repair were on successful. He few months ago went to [facility] where they after an attempt told him that they could not repair the fistula. His right arm was very swollen. He is hoping that he would get up AV fistula placed in his left arm. At present he is on a temporary dialysis catheter. He denies any cough or sputum production. There is no wheezing. There is no fever chills or Reiger's. He has no history of diabetes mellitus. PAST MEDICAL HISTORY: He has a history of hypertension, and history of end-stage renal disease. He has a history of paroxysmal atrial fibrillation/flutter. He used to be on Coumadin, and was subtherapeutic INR, and hence now the patient is on Eliquis 2.5 mg p.o. twice daily, which he claims he has been taking regularly. There is no history of TIA CVA. PAST MEDICAL HISTORY: He has a history of hypertension, and history of end-stage renal disease. He has a history of paroxysmal atrial fibrillation/flutter. He used to be on Coumadin, and was subtherapeutic INR, and hence now the patient is on Eliquis 2.5 mg p.o. twice daily, which he claims he has been taking regularly. There is no history of TIA CVA. There is no history of congestive heart failure. The patient has some symptoms of surgical sleep apnea, but has not had a formal sleep study. He has no history of thyroid disease. He is not a diabetic. There is no history of anxiety or depression. He has a history of left hip arthritis. PAST SURGICAL HISTORY: He has a history of AV fistula placement in the right arm which is working fine and also a permacath placement. The patient does not smoke there is no history of EtOH abuse. ALLERGIES: He is allergic and dry [facility] dialysis. DISPOSITION: The patient is a full code. His brother is a surrogate healthcare decision maker. FAMILY HISTORY: Is positive for hypertension. Negative for coronary artery disease. REVIEW of symptoms: Head: Denies headaches or head injury. CONSTITUTIONAL: No history of fever chills or rigors. The patient when he was in atrial flutter had some fatigue and generalized weakness. EYES: No history of amblyopia diplopia. NO HISTORY OF AMAUROSIS FUGAX. Ears: No history of tinnitus, no history of hearing loss. No recurrent ear infections. NOSE: No history of nosebleeds. No history of hayfever. MOUTH: No history of altered taste sensation. No ulcers in the mouth. No bleeding from the gums. THROAT: No history of odynophagia or dysphagia. No recurrent sore throats. SKIN: No his tory of pruritus. No history of yellowish discoloration of the skin. No history of psoriasis. No history of significant skin cancer. NECK: No neck pain, no swelling in the neck. No lymphadenopathy. No goiter. LUNGS: No history of asthma COPD. No cough or wheezing. No history of pulmonary embolism. No history of pleuritic chest pain or hemoptysis. He has some symptoms of obstructive sleep apnea, but has not had a sleep study. No symptoms of upper or lower respiratory tract infections. HEART: History of hypertension present history of recurrent paroxysmal atrial flutter and atrial fibrillation. At present the patient is converted. This episode precipitated by the patient discontinuing medication for a few days. There is no history of congestive heart failure. No history of coronary artery disease. No history of CT or anginal symptoms. No history of PND orthopnea leg edema. NO HISTORY OF SYNCOPE. Musculoskeletal: There is a history of arthritis of his left hip, and hence patient not very active. No history of collagen vascular disease. ENDOCRINE: No history of heat or cold intolerance. No history of polydipsia polyuria. No history of diabetes mellitus. No history of thyroid disease. RENAL: No hematuria pyuria or dysuria. History of end-stage renal disease on hemodialysis. GI: No history of GI bleed. No history of fatty food intolerance. No history of abdominal pain. No history of altered bowel movements. No history of ascites. No history of cirrhosis. APPETITE is good. DATABASES COMPUTER CONSULTANT: No history of TIA. No history of headaches migraines or seizures. No history of CVA. No history of gait imbalance. PSYCHIATRIC: No history of anxiety or depression. No history of suicidal ideation. No history of homicidal ideation. VASCULAR: No history of calf or buttock claudication. No history of DVT. Hematological: History of chronic anemia due to end-stage renal disease. No history of bleeding diathesis. No history of blood dyscrasias. No history of clotting disorders.There is no history of congestive heart failure. The patient has some symptoms of surgical sleep apnea, but has not had a formal sleep study. He has no history of thyroid disease. He is not a diabetic. There is no history of anxiety or depression. He has a history of left hip arthritis. PAST SURGICAL HISTORY: He has a history of AV fistula placement in the right arm which failed and the patient states that he went for repair of the fistula at [place] which they could not. His right arm is swollen. SOCIAL HISTORY:. The patient does not smoke there is no history of EtOH abuse. ALLERGIES: He is allergic and dry [place] dialysis. DISPOSITION: The patient is a full code. His brother is a surrogate healthcare decision maker. FAMILY HISTORY: Is positive for hypertension. Negative for coronary artery disease. Current Medications Generic Name Dose Route Start Last Admin Trade Name Freq PRN Reason Stop Dose Admin Acetaminophen 650 mg 10/06/19 18:56 Tylenol 325 Mg Tablet PO 11/05/19 18:55 Q4HP PRN FOR PAIN Albuterol 2 puff 10/06/19 18:56 Proair Hfa Inhalation Aerosol 8.5 Gm Mdi IH 11/05/19 18:55 Q4HP PRN SHORTNESS OF BREATH Amiodarone HCl 200 mg 10/06/19 20:00 10/07/19 09:53 Cordarone 200 Mg Tablet PO 11/05/19 19:59 200 mg DAILY MORENA Administration Apixaban 2.5 mg 10/06/19 20:00 10/07/19 17:15 Eliquis 2.5 Mg Tablet PO 11/05/19 19:59 2.5 mg BID MORENA Administration Calcium Acetate 667 mg 10/06/19 19:00 10/06/19 21:36 Phoslo 667 Mg Capsule PO 11/05/19 18:59 667 mg BIDP PRN Administration WITH SNACKS Calcium Acetate 2,001 mg 10/06/19 20:00 10/07/19 16:22 Phoslo 667 Mg Capsule PO 11/05/19 19:59 2,001 mg MEALS MORENA Administration Calcium Carbonate 250 mg 10/06/19 18:56 Tums Chewable 500 Mg Tab.Chew PO 11/05/19 18:55 DAILYP PRN INDIGESTION Cinacalcet 30 mg 10/06/19 20:00 10/07/19 09:53 Sensipar 30 Mg Tablet PO 11/05/19 19:59 30 mg DAILY MORENA Administration Clonidine 0.1 mg 10/06/19 21:00 10/07/19 09:53 Catapres 0.1 Mg Tablet PO 11/05/19 20:59 0.1 mg DAILY MORENA Administration Heparin Sodium (Porcine) 5,000 unit 10/06/19 18:00 10/07/19 17:06 Heparin Inj 5,000 Units/Ml 1 Ml Vial SUBCUT 11/05/19 17:59 Not Given Q8A MORENA Heparin Sodium (Porcine) 3,600 unit 10/08/19 05:00 Heparin Inj 1,000 Unit/Ml 10 Ml Vial IV 10/08/19 23:59 .SPLIT B/N CATHETERS PRN THIS MED IS NOT "PRN" Metoprolol Tartrate 25 mg 10/06/19 20:00 10/07/19 09:53 Lopressor 25 Mg Tablet PO 11/05/19 19:59 25 mg DAILY MORENA Administration Simvastatin 20 mg 10/06/19 22:00 10/07/19 21:27 Zocor 10 Mg Tablet PO 11/05/19 21:59 20 mg QHS MORENA Administration Discontinued Medications Generic Name Dose Route Start Last Admin Trade Name Mariuszq PRN Reason Stop Dose Admin Calcium Gluconate 2,000 mg 10/06/19 12:07 10/06/19 12:51 Calcium Gluconate Inj 1000 Mg/10 Ml IV 10/06/19 12:08 2,000 mg NOW ONE Administration Dextrose 25 gm 10/06/19 12:08 10/06/19 12:52 Dextrose Inj 50% Syringe (25 Gm/50 Ml) IV 10/06/19 12:09 Not Given NOW ONE Diphenhydramine HCl 25 mg 10/06/19 19:30 10/06/19 19:54 Benadryl 25 Mg Capsule PO 10/06/19 19:31 25 mg NOW ONE Administration Heparin Sodium (Porcine) 4,600 unit 10/06/19 11:56 10/06/19 16:42 Heparin Inj 1,000 Unit/Ml 10 Ml Vial IV 10/06/19 23:59 4,600 units .SPLIT B/N CATHETERS PRN Administration THIS MED IS NOT "PRN" Insulin Human Regular 10 unit 10/06/19 12:08 10/06/19 12:52 Humulin R (Pyxis) Insulin 100 Unit/Ml 3ml IV 10/06/19 12:09 Not Given NOW ONE Nitroglycerin 1 gm 10/06/19 10:30 10/06/19 11:13 Nitrol 2% Ointment 1gm Packet TP 10/06/19 10:31 1 gm NOW ONE Administration Sodium Polystyrene Sulfonate 45 gm 10/07/19 10:00 10/07/19 09:52 Kayexalate 15 Gm/60 Ml Susp 60 Ml PO 10/07/19 10:01 45 gm NOW ONE Administration REVIEW of symptoms: Head: Denies headaches or head injury. CONSTITUTIONAL: No history of fever chills or rigors. The patient when he was in atrial flutter had some fatigue and generalized weakness. EYES: No history of amblyopia diplopia. NO HISTORY OF AMAUROSIS FUGAX. Ears: No history of tinnitus, no history of hearing loss. No recurrent ear infections. NOSE: No history of nosebleeds. No history of hayfever. MOUTH: No history of altered taste sensation. No ulcers in the mouth. No bleeding from the gums. THROAT: No history of odynophagia or dysphagia. No recurrent sore throats. SKIN: No history of pruritus. No history of yellowish discoloration of the skin. No history of psoriasis. No history of significant skin cancer. NECK: No neck pain, no swelling in the neck. No lymphadenopathy. No goiter. LUNGS: No history of asthma COPD. No cough or wheezing. No history of pulmonary embolism. No history of pleuritic chest pain or hemoptysis. He has some symptoms of obstructive sleep apnea, but has not had a sleep study. No symptoms of upper or lower respiratory tract infections. HEART: History of hypertension present history of recurrent paroxysmal atrial flutter and atrial fibrillation. At present the patient is converted. This episode precipitated by the patient discontinuing medication for a few days. There is no history of congestive heart failure. No history of coronary artery disease. No history of CT or anginal symptoms. No history of PND orthopnea leg edema. NO HISTORY OF SY NCOPE. Musculoskeletal: There is a history of arthritis of his left hip, and hence patient not very active. No history of collagen vascular disease. ENDOCRINE: No history of heat or cold intolerance. No history of polydipsia polyuria. No history of diabetes mellitus. No history of thyroid disease. RENAL: No hematuria pyuria or dysuria. History of end-stage renal disease on hemodialysis. GI: No history of GI bleed. No history of fatty food intolerance. No history of abdominal pain. No history of altered bowel movements. No history of ascites. No history of cirrhosis. APPETITE is good. DATABASES COMPUTER CONSULTANT: No history of TIA. No history of headaches migraines or seizures. No history of CVA. No history of gait imbalance. PSYCHIATRIC: No history of anxiety or depression. No history of suicidal ideation. No history of homicidal ideation. VASCULAR: No history of calf or buttock claudication. No history of DVT. Hematological: History of chronic anemia due to end-stage renal disease. No history of bleeding diathesis. No history of blood dyscrasias. No history of clotting disorders. PHYSICAL EXAMINATION: The patient is mildly obese. In no acute distress. He is well-groomed Selected Entries 10/07/19 15:27 Temperature 97.9 F Temperature Oral Source Pulse Rate 64 Respiratory 17 Rate BP: 144/83 O2 Sat by Pulse 99 Oximetry Oxygen Delivery Room Air Method HEAD: Is atraumatic and normocephalic. EYES: Pupils are equal round regular reactive to light accommodation. External ocular movements are normal. There is no conjunctival pallor. There is no scleral icterus. EARS: Tympanic membranes are intact. External auditory canals are clear. NOSE: There is no deviated nasal septum. There is no inflammation of the nasal mucous membrane. MOUTH: Mucous membranes of mouth are moist. Tongue is moist. There is no ulcers in the mouth. There is no bleeding from the gums. THROAT: There is no redness of the oropharynx. There is no exudates. SKIN: There is no skin rashes. There is no petechia or ecchymosis. There is no skin lesions. NECK: Is supple. There is no JVD. Carotids equal there is no bruit. There is no lymphadenopathy. Trachea central. LUNGS: Lungs are clear to auscultation percussion, without any rhonchi rales or wheezing. THERE IS NO CHEST WALL TENDERNESS. Heart: S1, S2 heard normally. There is no S3 gallop. There is no S4 gallop. There is systolic murmur left sternal border and apex. There is no rub. ABDOMEN: Soft. Nontender. There is no hepatosplenomegaly. All sounds ar e well heard. There is no tender areas of masses. EXTREMITIES: Femorals are diminished. There is no femoral bruits. Leg pulses are diminished. There is no pedal edema. There is no DVT or cellulitis. There is no cyanosis or clubbing. There is no calf tenderness. DATABASES COMPUTER CONSULTANT: The patient is conscious awake alert oriented x3 with no focal deficits. PSYCHIATRIC: The patient judgment are intact his affect is normal. Labs- Entire Visit 10/06/19 10/06/19 10/06/19 10:40 10:40 13:45 WBC 5.2 RBC 3.74 L Hgb 11.5 L Hct 33.7 L MCV 90 MCH 30.9 MCHC 34.3 RDW 15.5 H Plt Count 153 Lymph % (Auto) 15.6 Mcculloch % (Auto) 6.6 Eos % (Auto) 1.7 Baso % (Auto) 1.1 Absolute Neuts (auto) 3.9 Absolute Lymphs (auto) 0.8 Absolute Monos (auto) 0.3 Absolute Eos (auto) 0.1 Absolute Basos (auto) 0.1 Seg Neutrophils % 75.0 PT INR APTT Sodium 136.6 L 135.4 L Potassium 8.6 H* 6.2 H* D Chloride 95 L 97 L Carbon Dioxide 26 29 Anion Gap 16 9 BUN 79 H 54 H D Creatinine 17.51 H 11.29 H Est GFR ( Amer) 3 L 6 L Est GFR (MDRD) Non-Af 3 L 5 L Glucose 92 87 POC Glucose Calcium 9.8 8.7 Phosphorus Magnesium Total Bilirubin 0.9 Direct Bilirubin 0.7 H Neonat Total Bilirubin Not Reportable Neonat Direct Bilirubin Not Reportable Neonat Indirect Bili Not Reportable AST 27 ALT 14 Alkaline Phosphatase 69 Ammonia CK-MB (CK-2) Troponin I NT-Pro-B Natriuret Pep Total Protein 8.6 H Albumin 4.6 Triglycerides Cholesterol LDL Cholesterol Direct VLDL Cholesterol HDL Cholesterol Amylase Lipase TSH Free T4 10/06/19 10/06/19 10/06/19 19:00 19:00 19:00 WBC RBC Hgb Hct MCV MCH MCHC RDW Plt Count Lymph % (Auto) Mcculloch % (Auto) Eos % (Auto) Baso % (Auto) Absolute Neuts (auto) Absolute Lymphs (auto) Absolute Monos (auto) Absolute Eos (auto) Absolute Basos (auto) Seg Neutrophils % PT 14.9 INR 1.16 APTT 33.7 Sodium 136.2 L Potassium 5.1 H D Cancelled Chloride 96 L Carbon Dioxide 27 Anion Gap 13 BUN 39 H Creatinine 10.27 H Est GFR ( Amer) 6 L Est GFR (MDRD) Non-Af 5 L Glucose 140 H POC Glucose Calcium 9.6 Phosphorus 5.4 H Magnesium 2.3 Total Bilirubin Direct Bilirubin Neonat Total Bilirubin Neonat Direct Bilirubin Neonat Indirect Bili AST ALT Alkaline Phosphatase Ammonia CK-MB (CK-2) Troponin I NT-Pro-B Natriuret Pep Total Protein Albumin Triglycerides Cholesterol LDL Cholesterol Direct VLDL Cholesterol HDL Cholesterol Amylase 119 H Lipase 55.7 TSH Free T4 10/06/19 10/06/19 10/06/19 19:00 19:00 19:00 WBC RBC Hgb Hct MCV MCH MCHC RDW Plt Count Lymph % (Auto) [place]ulloch % (Auto) Eos % (Auto) Baso % (Auto) Absolute Neuts (auto) Absolute Lymphs (auto) Absolute Monos (auto) Absolute Eos (auto) Absolute Basos (auto) Seg Neutrophils % PT INR APTT Sodium Potassium Chloride Carbon Dioxide Anion Gap BUN Creatinine Est GFR ( Amer) Est GFR (MDRD) Non-Af Glucose POC Glucose Calcium Phosphorus Magnesium Total Bilirubin Direct Bilirubin Neonat Total Bilirubin Neonat Direct Bilirubin Neonat Indirect Bili AST ALT Alkaline Phosphatase Ammonia < 8.7 L CK-MB (CK-2) Troponin I NT-Pro-B Natriuret Pep 51650 H Total Protein Albumin Triglycerides Cholesterol LDL Cholesterol Direct VLDL Cholesterol HDL Cholesterol Amylase Lipase TSH 3.70 Free T4 1.63 10/06/19 10/07/19 10/07/19 19:00 00:47 06:58 WBC RBC Hgb Hct MCV MCH MCHC RDW Plt Count Lymph % (Auto) M[place]ulloch % (Auto) Eos % (Auto) Baso % (Auto) Absolute Neuts (auto) Absolute Lymphs (auto) Absolute Monos (auto) Absolute Eos (auto) Absolute Basos (auto) Seg Neutrophils % PT INR APTT Sodium 136.0 L Potassium 6.3 H* D Chloride 95 L Carbon Dioxide 26 Anion Gap 15 BUN 45 H Creatinine 11.50 H Est GFR ( Amer) 6 L Est GFR (MDRD) Non-Af 5 L Glucose 79 POC Glucose Calcium 8.6 Phosphorus Magnesium Total Bilirubin 0.8 Direct Bilirubin 0.5 H Neonat Total Bilirubin Not Reportable Neonat Direct Bilirubin Not Reportable Neonat Indirect Bili Not Reportable AST 23 ALT 11 Alkaline Phosphatase 58 Ammonia CK-MB (CK-2) 2.42 1.99 Troponin I 0.143 0.152 NT-Pro-B Natriuret Pep Total Protein 7.0 Albumin 3.9 Triglycerides 57 Cholesterol 174.02 LDL Cholesterol Direct 90 VLDL Cholesterol 11.0 HDL Cholesterol 59 Amylase Lipase TSH Free T4 10/07/19 10/07/19 10/07/19 06:58 06:58 14:53 WBC 4.2 RBC 3.83 L Hgb 11.6 L Hct 34.2 L MCV 89 MCH 30.3 MCHC 34.0 RDW 15.8 H Plt Count 137 L Lymph % (Auto) 22.9 Mcculloch % (Auto) 13.8 H Eos % (Auto) 6.4 H Baso % (Auto) 1.8 Absolute Neuts (auto) 2.3 Absolute Lymphs (auto) 1.0 Absolute Monos (auto) 0.6 Absolute Eos (auto) 0.3 Absolute Basos (auto) 0.1 Seg Neutrophils % 55.1 PT INR APTT Sodium 137.1 Potassium 5.5 H Chloride 93 L Carbon Dioxide 29 Anion Gap 15 BUN 49 H Creatinine 12.70 H Est GFR ( Amer) 5 L Est GFR (MDRD) Non-Af 4 L Glucose 93 POC Glucose Calcium 8.6 Phosphorus Magnesium Total Bilirubin Direct Bilirubin Neonat Total Bilirubin Neonat Direct Bilirubin Neonat Indirect Bili AST ALT Alkaline Phosphatase Ammonia CK-MB (CK-2) 2.02 Troponin I 0.150 NT-Pro-B Natriuret Pep Total Protein Albumin Triglycerides Cholesterol LDL Cholesterol Direct VLDL Cholesterol HDL Cholesterol Amylase Lipase TSH Free T4 Chest X-Ray 10/06/19 10:26 IMPRESSION: 1. Improved but persistent bilateral interstitial and alveolar opacities, likely representing edema. No large effusion. I will keep caps EKG: Sinus rhythm. Diffuse nonspecific ST-T changes especially lateral leads. There are tall T waves in V1 to V4? Secondary to hyperkalemia. IMPRESSION/RECOMMENDATION: 1. Elevated troponin I secondary to patient's volume load CHF and end-stage renal disease. No definite evidence of non-ST elevation CT. This is a type II CT secondary to supply demand mismatch. Hence we will treat the cause. Would not treat this as a non-ST elevation CT 2. Congestive heart failure secondary to volume overload during: Noncompliance with diet medication and renal dialysis. 3. Hyperkalemia in a patient with end-stage renal disease. The patient is getting dialyzed. 4. Paroxysmal atrial flutter. At present in sinus rhythm. Continue current medications. Note the patient is on amiodarone. The patient's liver function tests and thyroid function tests are normal. Later would get a full PFTs with DLCO, since the patient is on amiodarone. 5. Hypertension: Well-controlled continue current medications. 6. END STAGE RENAL DISEASE: On hemodialysis. Patient scheduled for hemodialysis tomorrow. Would recommend discontinue the patient on current medications after dialysis. 7. History of hyperlipidemia. Continue statins Medications reviewed. Medical regimen and management plan discussed with attending physician. Medical management decision making is of high complexity. 60 minutes spent on this patient with more than 50% of time spent in direct patient care. Will follow
[2019-10-08] MEDS: HEPARIN SOD (PORCINE) 5,000 UNIT/ML 1 ML VIAL SUBCUT SCH ×2 (01:32→09:16)
[2019-10-08] MEDS ORDERED: DIPHENHYDRAMINE HCL 25 MG CAPSULE PO ONE (04:45)
[2019-10-08] MEDS ORDERED: HEPARIN SOD (PORCINE) 1,000 UNIT/ML 10 ML VIAL IV PRN (05:00)
[2019-10-08 05:14] LABS: ABSOLUTE EOSINOPHILS # (AUTO) 0.4 10^3/uL (0.0-0.6); ABSOLUTE LYMPHOCYTES (AUTO) 1.6 10^3/uL (0.5-4.7); ABSOLUTE MONOCYTES (AUTO) 0.5 10^3/uL (0.1-1.4); BASOPHILS % (AUTO) 0.1 % (0-2); EOSINOPHILS % (AUTO) 8.5 % (0-6); HEMATOCRIT 34.4 % (37.9-51.0); HEMOGLOBIN 11.7 g/dL (13.5-17.0); LYMPHOCYTES % (AUTO) 35.5 % (13-45); MEAN CORPUSCULAR HEMOGLOBIN 30.5 pg (27.0-33.4); MEAN CORPUSCULAR HGB CONC 34.1 g/dL (32.0-36.0); MEAN CORPUSCULAR VOLUME 89 fl (80-97); MONOCYTES % (AUTO) 10.3 % (3-13); PLATELET COUNT 135 10^3/uL (150-450); RED BLOOD COUNT 3.85 10^6/uL (4.35-5.55); RED CELL DISTRIBUTION WIDTH 15.4 % (11.5-14.0); SEGMENTED NEUTROPHILS % (AUTO) 45.6 % (42-78); TOTAL CELLS COUNTED % (AUTO) 100 %; WHITE BLOOD COUNT 4.4 10^3/uL (4.0-10.5)
[2019-10-08 05:18] LABS: ALBUMIN 3.8 g/dL (3.5-5.0); ALKALINE PHOSPHATASE 55 U/L (38-126); ANION GAP 13 (5-19); ASPARTATE AMINO TRANSFERASE 23 U/L (17-59); BILIRUBIN,DIRECT 0.3 mg/dL (0.0-0.4); BILIRUBIN,TOTAL 0.6 mg/dL (0.2-1.3); BLOOD UREA NITROGEN 57 mg/dL (7-20); CALCIUM 8.1 mg/dL (8.4-10.2); CARBON DIOXIDE 28 mmol/L (22-30); CHLORIDE 95 mmol/L (98-107); GLUCOSE 82 mg/dL (75-110); POTASSIUM 5.4 mmol/L (3.6-5.0)
[2019-10-08] MEDS: CALCIUM ACETATE 667 MG CAPSULE PO SCH ×2 (07:49→12:13)
[2019-10-08 08:41] VITALS: BP 161/89
--- NOTE | 2019-10-08 11:56 | PDOC PROGRESS REPORT ---
Subjective Progress Note for:: 10/08/19 Subjective:: Patient seen by the bedside, he continues to improve hopefully discharge home tomorrow after dialysis Reason For Visit: SEVERE SYMPTOMATIC HYPERKALEMIA IN PATIENT WITH Physical Exam Vital Signs: Temp Pulse Resp BP Pulse Ox 97.7 F 76 16 161/89 H 100 10/08/19 08:40 10/08/19 08:40 10/08/19 08:40 10/08/19 08:40 10/08/19 08:40 Intake & Output 10/07/19 10/08/19 10/09/19 06:59 06:59 06:59 Intake Total 222 1480 Output Total 4500 0 Balance -4278 1480 Weight 91.4 kg 89.5 kg General appearance: PRESENT: no acute distress Eye exam: PRESENT: PERRLA Respiratory exam: PRESENT: clear to auscultation dave Cardiovascular exam: PRESENT: +S1, +S2 GI/Abdominal exam: PRESENT: soft Neurological exam: PRESENT: alert Results Laboratory Results: 10/08/19 04:37 10/08/19 04:37 10/07/19 10/08/19 10/08/19 14:53 04:37 04:37 WBC 4.4 RBC 3.85 L Hgb 11.7 L Hct 34.4 L MCV 89 MCH 30.5 MCHC 34.1 RDW 15.4 H Plt Count 135 L Seg Neutrophils % 45.6 Sodium 137.1 135.9 L Potassium 5.5 H 5.4 H Chloride 93 L 95 L Carbon Dioxide 29 28 Anion Gap 15 13 BUN 49 H 57 H Creatinine 12.70 H 14.45 H Est GFR ( Amer) 5 L 4 L Glucose 93 82 Calcium 8.6 8.1 L Total Bilirubin 0.6 AST 23 Alkaline Phosphatase 55 Total Protein 7.0 Albumin 3.8 10/06/19 10/06/19 10/07/19 19:00 19:00 00:47 CK-MB (CK-2) 2.42 1.99 Troponin I 0.143 0.152 NT-Pro-B Natriuret Pep 56031 H 10/07/19 06:58 CK-MB (CK-2) 2.02 Troponin I 0.150 NT-Pro-B Natriuret Pep Impressions: Chest X-Ray 10/06/19 10:26 IMPRESSION: 1. Improved but persistent bilateral interstitial and alveolar opacities, likely representing edema. No large effusion. Assessment & Plan - Diagnosis (1) Hyperkalemia Is this a current diagnosis for this admission?: Yes (2) End stage renal disease Is this a current diagnosis for this admission?: Yes - Time Time Spent with patient: 15-24 minutes
[2019-10-08] MEDS: CLONIDINE HCL 0.1 MG TABLET PO SCH (12:05)
[2019-10-08] MEDS: APIXABAN 2.5 MG TABLET PO SCH (12:05)
[2019-10-08] MEDS: AMIODARONE HCL 200 MG TABLET PO SCH (12:05)
[2019-10-08] MEDS: METOPROLOL TARTRATE 25 MG TABLET PO SCH (12:05)
[2019-10-08] MEDS: CINACALCET HCL 30 MG TABLET PO SCH (12:13)
--- NOTE | 2019-10-08 21:07 | PDOC DISCHARGE SUMMARY ---
Impression - Admit/DC Date/PCP Admission Date/Primary Care Provider: 10/06/19 11:18 СВЕТЛАНА WHEELER MD Discharge Date: 10/08/19 - Discharge Diagnosis (1) Hyperkalemia Is this a current diagnosis for this admission?: Yes (2) End stage renal disease Is this a current diagnosis for this admission?: Yes - Additional Information Discharge Diet: As Tolerated Discharge Activity: Activity As Tolerated, Balance Activity w/Rest Referrals: СВЕТЛАНА WHEELER MD [Primary Care Provider] - 10/21/19 9:45 am Home Medications: Acetaminophen [Tylenol 325 mg Tablet] 650 mg PO Q4HP PRN 08/05/19 Albuterol Sulfate [Proair HFA Inhalation Aerosol 8.5 gm MDI] 2 puff IH Q4HP PRN 08/05/19 Amiodarone HCl [Cordarone 200 mg Tablet] 200 mg PO DAILY 08/05/19 Calcium Acetate [Phoslo 667 mg Capsule] 2,001 mg PO MEALS 08/05/19 Calcium Acetate [Phoslo 667 mg Capsule] 667 mg PO .BIDWITHSNACKS 08/05/19 Calcium Carbonate [Tums] 200 mg PO DAILYP PRN 08/05/19 Cinacalcet HCl [Sensipar 30 mg Tablet] 30 mg PO DAILY 08/05/19 Clonidine HCl [Catapres 0.1 mg Tablet] 0.1 mg PO DAILY 08/05/19 Metoprolol Tartrate [Lopressor 25 mg Tablet] 25 mg PO DAILY 08/05/19 Simvastatin [Zocor 20 mg Tablet] 20 mg PO QHS 08/05/19 Apixaban [Eliquis 2.5 mg Tablet] 2.5 mg PO BID #60 tablet 08/06/19 History of Present Illiness History of Present Illness: OLINDA OCAMPO is a 58 year old male,, He has a history of end-stage renal disease on maintenance hemodialysis, hypertension he came to the emergency room for evaluation of generalized body weakness for the last few days, is on maintenance hemodialysis, he missed 2 sessions of dialysis. In the emergency room he was found to have severe hyperkalemia, the potassium was 8.9 he required emergency hemodialysis, nephrology was consulted, he was dialyzed in the emergency room ,I saw him in the emergency room while undergoing dialysis Hospital Course Hospital Course: Patient was admitted for the management of hyperkalemia in the setting of end- stage renal disease on maintenance hemodialysis. He missed hemodialysis session, he was seen by nephrology underwent dialysis, patient wants to go home today Physical Exam Vital Signs: Temp Pulse Resp BP Pulse Ox 97.7 F 76 16 161/89 H 100 10/08/19 12:15 10/08/19 12:15 10/08/19 12:15 10/08/19 12:15 10/08/19 12:15 Intake & Output 10/07/19 10/08/19 10/09/19 06:59 06:59 06:59 Intake Total 222 1480 Output Total 4500 0 4200 Balance -4278 1480 -4200 Weight 91.4 kg 89.5 kg General appearance: PRESENT: no acute distress Eye exam: PRESENT: PERRLA Respiratory exam: PRESENT: clear to auscultation dave Cardiovascular exam: PRESENT: +S1, +S2 GI/Abdominal exam: PRESENT: soft Neurological exam: PRESENT: alert Results Laboratory Results: WBC 4.4 10^3/uL (4.0-10.5) 10/08/19 04:37 RBC 3.85 10^6/uL (4.35-5.55) L 10/08/19 04:37 Hgb 11.7 g/dL (13.5-17.0) L 10/08/19 04:37 Hct 34.4 % (37.9-51.0) L 10/08/19 04:37 MCV 89 fl (80-97) 10/08/19 04:37 MCH 30.5 pg (27.0-33.4) 10/08/19 04:37 MCHC 34.1 g/dL (32.0-36.0) 10/08/19 04:37 RDW 15.4 % (11.5-14.0) H 10/08/19 04:37 Plt Count 135 10^3/uL (150-450) L 10/08/19 04:37 Lymph % (Auto) 35.5 % (13-45) 10/08/19 04:37 Linn % (Auto) 10.3 % (3-13) 10/08/19 04:37 Eos % (Auto) 8.5 % (0-6) H 10/08/19 04:37 Baso % (Auto) 0.1 % (0-2) 10/08/19 04:37 Absolute Neuts (auto) 2.0 10^3/uL (1.7-8.2) 10/08/19 04:37 Absolute Lymphs (auto) 1.6 10^3/uL (0.5-4.7) 10/08/19 04:37 Absolute Monos (auto) 0.5 10^3/uL (0.1-1.4) 10/08/19 04:37 Absolute Eos (auto) 0.4 10^3/uL (0.0-0.6) 10/08/19 04:37 Absolute Basos (auto) 0.0 10^3/uL (0.0-0.2) 10/08/19 04:37 Seg Neutrophils % 45.6 % (42-78) 10/08/19 04:37 PT 14.9 SEC (11.4-15.4) 10/06/19 19:00 INR 1.16 10/06/19 19:00 APTT 33.7 SEC (23.5-35.8) 10/06/19 19:00 Sodium 135.9 mmol/L (137-145) L 10/08/19 04:37 Potassium 5.4 mmol/L (3.6-5.0) H 10/08/19 04:37 Chloride 95 mmol/L (98-107) L 10/08/19 04:37 Carbon Dioxide 28 mmol/L (22-30) 10/08/19 04:37 Anion Gap 13 (5-19) 10/08/19 04:37 BUN 57 mg/dL (7-20) H 10/08/19 04:37 Creatinine 14.45 mg/dL (0.52-1.25) H 10/08/19 04:37 Est GFR ( Amer) 4 (>60) L 10/08/19 04:37 Est GFR (MDRD) Non-Af 3 (>60) L 10/08/19 04:37 Glucose 82 mg/dL (75-110) 10/08/19 04:37 POC Glucose 110 mg/dL (70-110) 10/08/19 06:59 Calcium 8.1 mg/dL (8.4-10.2) L 10/08/19 04:37 Phosphorus 5.4 mg/dL (2.5-4.5) H 10/06/19 19:00 Magnesium 2.3 mg/dL (1.6-2.3) 10/06/19 19:00 Total Bilirubin 0.6 mg/dL (0.2-1.3) 10/08/19 04:37 Direct Bilirubin 0.3 mg/dL (0.0-0.4) 10/08/19 04:37 Neonat Total Bilirubin Not Reportable 10/08/19 04:37 Neonat Direct Bilirubin Not Reportable 10/08/19 04:37 Neonat Indirect Bili Not Reportable 10/08/19 04:37 AST 23 U/L (17-59) 10/08/19 04:37 ALT 12 U/L (<50) 10/08/19 04:37 Alkaline Phosphatase 55 U/L (38-126) 10/08/19 04:37 Ammonia < 8.7 umol/L (9-33) L 10/06/19 19:00 CK-MB (CK-2) 2.02 ng/mL (<4.55) 10/07/19 06:58 Troponin I 0.150 ng/mL 10/07/19 06:58 NT-Pro-B Natriuret Pep 71046 pg/mL (<125) H 10/06/19 19:00 Total Protein 7.0 g/dL (6.3-8.2) 10/08/19 04:37 Albumin 3.8 g/dL (3.5-5.0) 10/08/19 04:37 Triglycerides 57 mg/dL (<150) 10/07/19 06:58 Cholesterol 174.02 mg/dL (0-200) 10/07/19 06:58 LDL Cholesterol Direct 90 mg/dL (<100) 10/07/19 06:58 VLDL Cholesterol 11.0 mg/dL (10-31) 10/07/19 06:58 HDL Cholesterol 59 mg/dL (>40) 10/07/19 06:58 Amylase 119 U/L (30-110) H 10/06/19 19:00 Lipase 55.7 U/L (23-300) 10/06/19 19:00 TSH 3.70 uIU/mL (0.47-4.68) 10/06/19 19:00 Free T4 1.63 ng/dL (0.78-2.19) 10/06/19 19:00 10/06/19 10/06/19 10/07/19 19:00 19:00 00:47 CK-MB (CK-2) 2.42 1.99 Troponin I 0.143 0.152 NT-Pro-B Natriuret Pep 92166 H 10/07/19 06:58 CK-MB (CK-2) 2.02 Troponin I 0.150 NT-Pro-B Natriuret Pep Impressions: Chest X-Ray 10/06/19 10:26 IMPRESSION: 1. Improved but persistent bilateral interstitial and alveolar opacities, likely representing edema. No large effusion. Stroke Is this a Stroke Patient?: No Acute Heart Failure - Is this a Heart Failure Patient?: No
== END 2019-10-08 12:39 | disposition home or self-care (01) | DRG 640 ==
LOC: ER 10:02 → EH 11:18 → 3W 17:31 → 4W 10-07 16:43
PROVIDERS: ADMIT Internal Medicine; ATTEND Internal Medicine
PROC: 5A1D70Z Performance of Urinary Filtration, Intermittent, Less than 6 Hours Per Day (ICD-10-PCS; principal; 2019-10-06)
PROC: 5A1D70Z Performance of Urinary Filtration, Intermittent, Less than 6 Hours Per Day (ICD-10-PCS; 2019-10-08)
DX: E87.5 Hyperkalemia (principal); N18.6 End stage renal disease; I21.A1 Myocardial infarction type 2; I13.2 Hypertensive heart and chronic kidney disease with heart failure and with stage 5 chronic kidney disease, or end stage renal disease; I50.9 Heart failure, unspecified; E78.5 Hyperlipidemia, unspecified; I48.0 Paroxysmal atrial fibrillation; J44.9 Chronic obstructive pulmonary disease, unspecified; R79.89 Other specified abnormal findings of blood chemistry; M19.90 Unspecified osteoarthritis, unspecified site; Z82.49 Family history of ischemic heart disease and other diseases of the circulatory system; Z86.718 Personal history of other venous thrombosis and embolism; Z99.2 Dependence on renal dialysis; Z91.15 Patient's noncompliance with renal dialysis; Z79.51 Long term (current) use of inhaled steroids; Z79.899 Other long term (current) drug therapy; Z91.11 Patient's noncompliance with dietary regimen; Z79.02 Long term (current) use of antithrombotics/antiplatelets; Z88.8 Allergy status to other drugs, medicaments and biological substances
CPT/HCPCS: 36415; 71045; 80048; 80053; 80061; 80076; 82140; 82150; 82553; 82962; 83690; 83735; 83880; 84100; 84439; 84443; 84484; 85025; 85610; 85730; 93005; 93010; 99291; G0257; J0610; J1644; J3490

== ENCOUNTER 2019-10-09 22:56 | Inpatient (IN) | payer MEDICARE ==
[2019-10-10 00:09] LABS: ABSOLUTE BASOPHILS # (AUTO) 0.1 10^3/uL (0.0-0.2); ABSOLUTE EOSINOPHILS # (AUTO) 0.1 10^3/uL (0.0-0.6); ABSOLUTE LYMPHOCYTES (AUTO) 0.6 10^3/uL (0.5-4.7); ABSOLUTE MONOCYTES (AUTO) 0.7 10^3/uL (0.1-1.4); ABSOLUTE NEUT (AUTO) 5.8 10^3/uL (1.7-8.2); BASOPHILS % (AUTO) 0.8 % (0-2); EOSINOPHILS % (AUTO) 0.8 % (0-6); HEMATOCRIT 36.3 % (37.9-51.0); HEMOGLOBIN 12.3 g/dL (13.5-17.0); LYMPHOCYTES % (AUTO) 8.4 % (13-45); MEAN CORPUSCULAR HEMOGLOBIN 30.3 pg (27.0-33.4); MEAN CORPUSCULAR HGB CONC 33.8 g/dL (32.0-36.0); MEAN CORPUSCULAR VOLUME 90 fl (80-97); MONOCYTES % (AUTO) 9.2 % (3-13); PLATELET COUNT 152 10^3/uL (150-450); RED BLOOD COUNT 4.06 10^6/uL (4.35-5.55); RED CELL DISTRIBUTION WIDTH 15.5 % (11.5-14.0); SEGMENTED NEUTROPHILS % (AUTO) 80.8 % (42-78); TOTAL CELLS COUNTED % (AUTO) 100 %; WHITE BLOOD COUNT 7.2 10^3/uL (4.0-10.5)
[2019-10-10 00:10] LABS: ALBUMIN 4.1 g/dL (3.5-5.0); ALKALINE PHOSPHATASE 62 U/L (38-126); ANION GAP 14 (5-19); ASPARTATE AMINO TRANSFERASE 19 U/L (17-59); BILIRUBIN,DIRECT 0.3 mg/dL (0.0-0.4); BILIRUBIN,TOTAL 0.5 mg/dL (0.2-1.3); BLOOD UREA NITROGEN 46 mg/dL (7-20); CALCIUM 8.8 mg/dL (8.4-10.2); CARBON DIOXIDE 27 mmol/L (22-30); CHLORIDE 94 mmol/L (98-107); CREATINE KINASE 121 U/L (55-170); GLUCOSE 100 mg/dL (75-110); POTASSIUM 5.2 mmol/L (3.6-5.0); TOTAL PROTEIN 7.4 g/dL (6.3-8.2)
[2019-10-10 00:13] LABS: INTERNATIONAL RATION (INR) 1.06; PROTHROMBIN TIME 13.8 SEC (11.4-15.4)
[2019-10-10 00:22] LABS: CREATINE KINASE MB 0.57 ng/mL (<4.55)
[2019-10-10 00:32] LABS: TROPONIN I 0.112 ng/mL
[2019-10-10] MEDS ORDERED: MORPHINE SULFATE 10 MG/ML INJ IV ONE ×2 (03:47→07:00)
[2019-10-10] MEDS ORDERED: ONDANSETRON HCL INJ/PF 4 MG/2 ML SDV IV ONE ×2 (03:48→06:15)
--- NOTE | 2019-10-10 03:51 | ER Document Report ---
ED General - General TRAVEL OUTSIDE OF THE [place] IN LAST 30 DAYS: No - Related Data Home Medications: eliquis, calcium acetate, clonidine <ISABELA GUTHRIE - Last Filed: 10/10/19 07:45> <RAHUL GARCIA - Last Filed: 10/10/19 08:54> - General Chief Complaint: Low Back Pain Stated Complaint: FLANK PAIN Time Seen by Provider: 10/10/19 03:39 Primary Care Provider: СВЕТЛАНА WHEELER MD [Primary Care Provider] - Follow up as needed Notes: Patient is a 58-year-old male that comes emergency department from home for chi ef complaint of right lower back pain. He states that he was taking a nap on the couch, he states when he got up at approximately 1300 today he felt like his back froze up and he had a lot of pain, cramping, and trouble walking without having tightness and severe pain in his lower back. He denies any back surgeries, denies recent injury, denies IV drug abuse, denies fever. He denies numbness, bowel incontinence. He is a dialysis patient and makes almost no urine. Past medical history also includes A. fib, hypertension, right arm lymphedema, COPD. Patient denies a history of cancer. (ISABELA GUTHRIE) - Related Data Allergies/Adverse Reactions: DRY GAMBRO DIALYZERS Allergy (Unknown, Uncoded 06/22/18 04:07) "BP drop, vomiting" PAPER TAPE Allergy (Uncoded 06/22/18 04:07) Rash Past Medical History - General Information source: Patient - Social History Smoking Status: Never Smoker Frequency of alcohol use: None Drug Abuse: None Lives with: Family Family History: Reviewed & Not Pertinent, Hypertension Patient has suicidal ideation: No Patient has homicidal ideation: No - Past Medical History Cardiac Medical History: Reports: Hx DVT, Hx Hypercholesterolemia, Hx Hypertension Denies: Hx Coronary Artery Disease, Hx Heart Attack Pulmonary Medical History: Reports: Hx Asthma, Hx COPD Denies: Hx Bronchitis, Hx Pneumonia Neurological Medical History: Denies: Hx Cerebrovascular Accident, Hx Seizures Renal/ Medical History: Reports: Hx End Stage Renal Disease, Hx Hemodialysis. Denies: Hx Peritoneal Dialysis Musculoskeletal Medical History: Reports Hx Arthritis - "DAMAGED NERVE TO RIGHT LEG" Psychiatric Medical History: Denies: Hx Depression Past Surgical History: Reports: Hx Neurologic Surgery - Benign brain tumor removed 2010, Hx Vascular Surgery - Right upper arm AV fistula, right and left PermCaths - Immunizations Hx Diphtheria, Pertussis, Tetanus Vaccination: Yes Hx Pneumococcal Vaccination: 02/07/16 <ISABELA GUTHRIE - Last Filed: 10/10/19 07:45> Review of Systems - Review of Systems Constitutional: No symptoms reported EENT: No symptoms reported Cardiovascular: No symptoms reported Respiratory: No symptoms reported Gastrointestinal: No symptoms reported Genitourinary: No symptoms reported Male Genitourinary: No symptoms reported Musculoskeletal: See HPI Skin: No symptoms reported Hematologic/Lymphatic: No symptoms reported Neurological/Psychological: No symptoms reported <ISABELA GUTHRIE - Last Filed: 10/10/19 07:45> Physical Exam <ISABELA GUTHRIE - Last Filed: 10/10/19 07:45> - Vital signs Vitals: Resp BP 20 144/76 H 10/09/19 23:12 10/09/19 23:12 - Notes Notes: GENERAL: Alert, interacts well. No acute distress. HEAD: Normocephalic, atraumatic. EYES: Pupils equal, round, and reactive to light. Extraocular movements intact. ENT: Oral mucosa moist, tongue midline. Oropharynx unremarkable. Airway patent. LUNGS: Clear to auscultation bilaterally, no wheezes, rales, or rhonchi. No respiratory distress. HEART: Regular rate and rhythm. No murmur ABDOMEN: Soft, non-tender. Non-distended. EXTREMITIES: Reportedly chronic lymphedema of the right upper extremity. Otherwise unremarkable with normal distal neurovascular exam. No cyanosis. BACK: There is midline tenderness and generalized tenderness over the lumbar spine. No signs of trauma. No saddle anesthesia, normal distal neurovascular exam. Moves all extremities in full range of motion. Patient has a lot of pain when trying to perform position changes. NEUROLOGICAL: Alert and oriented x3. Normal speech. Cranial nerves II through XII grossly intact. PSYCH: Normal affect, normal mood. SKIN: Warm, dry, normal turgor. No rashes or lesions noted. (ISABELA GUTHRIE) Course - Laboratory Result Diagrams: 10/09/19 23:16 10/09/19 23:16 <ISABELA GUTHRIE - Last Filed: 10/10/19 07:45> - Laboratory Result Diagrams: 10/09/19 23:16 10/09/19 23:16 <RAHUL GARCIA - Last Filed: 10/10/19 08:54> - Re-evaluation Re-evalutation: CBC nonspecific, chemistry nonspecific, patient unable to provide a urine s ample. Chemistry appears to be approximately patient's baseline. Vital signs unremarkable. Patient did not have trauma, he is very amicable, however when he attempts to move and when I palpate his lower back he appears to be in a lot of pain. He does not have a neurovascular deficit. Because of his pain on palpation we will perform imaging to rule out bony abnormality. Patient medicated, he is very agreeable with this plan. CT of the lumbar spine shows right-sided renal mass and probable lytic lesion in the lumbar spine concerning for metastasis. On review of previous records there was a CT in 2018 which was a CTA including the abdomen and pelvis which showed a smaller mass on the same kidney. I am concerned this is a developed kidney mass with metastasis. Discussed with patient. Called and spoke with oncology on-call Dr. Bermeo. He recommends MRI of the lumbar spine, MRI of the thoracic spine (both noncontrast), and suggests admission for pain management consult and he can consult on the patient as well. Will discuss with Dr. Garcia who is on-call for Dr. Wheeler, patient's primary provider. Discussed with Dr. Garcia, he requests that I speak with Dr. 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 10/10/19 07:10 Spoke with the weigh tank operator, they state they have paged Dr. Benson, pending callback. (ISABELA GUTHRIE) 10/10/19 08:[address] Garcia, medicine. I spoke with Dr. Valentine, Attending. We have been trying to reach Dr. Benson nephrology for several hours without success. I did make him aware. He requests that we place the admission to the [facility] for the patient. (RAHUL GARCIA) - Vital Signs Vital signs: Temp Pulse Resp BP Pulse Ox 99.4 F 78 19 128/71 H 100 10/09/19 23:52 10/09/19 23:52 10/10/19 07:00 10/10/19 04:10/10/19 06:00 - Laboratory Laboratory results interpreted by me: 10/09/19 10/09/19 23:16 23:16 RBC 4.06 L Hgb 12.3 L Hct 36.3 L RDW 15.5 H Lymph % (Auto) 8.4 L Seg Neutrophils % 80.8 H Sodium 134.5 L Potassium 5.2 H Chloride 94 L BUN 46 H Creatinine 14.12 H Est GFR ( Amer) 4 L Est GFR (MDRD) Non-Af 4 L Discharge <ISABELA GUTHRIE - Last Filed: 10/10/19 07:45> - Discharge Admitting Provider: [facility] Unit Admitted: [facility] <RAHUL GARCIA - Last Filed: 10/10/19 08:54> - Discharge Clinical Impression: Renal mass, right, Lytic lesion of bone on x-ray Lower back pain Qualifiers: Chronicity: acute Back pain laterality: bilateral Sciatica presence: without sciatica Qualified Code(s): M54.5 - Low back pain Condition: Stable Disposition: ADMITTED INPATIENT Referrals: СВЕТЛАНА WHEELER MD [Primary Care Provider] - Follow up as needed
--- NOTE | 2019-10-10 05:27 | RADIOLOGY REPORT (SQ) ---
EXAM: CT Lumbar Spine Without Intravenous Contrast EXAM DATE/TIME: 10/10/2019 4:14 AM CLINICAL HISTORY: The patient is 58 years old and is Male; lower back pain TECHNIQUE: Axial computed tomography images of the lumbar spine without intravenous contrast. Sagittal and coronal reformatted images were created and reviewed. This CT exam was performed using one or more of the following dose reduction techniques: automated exposure control, adjustment of the mA and/or kV according to patient size, and/or use of iterative reconstruction technique. COMPARISON: CTA chest from 02/02/2018 FINDINGS: VERTEBRAE: There is a rounded lytic area within the superior aspect of the L1 vertebral body. This was not present on the prior study. No acute fracture. Vertebral body heights and alignment are well-maintained. DISCS/SPINAL CANAL/NEURAL FORAMINA: There is a small broad-based posterior disc bulge at L3-4 and L4-5. There is also facet hypertrophy in the lower lumbar spine. There is associated mild spinal canal narrowing at L3-4 and L4-5. Moderate bilateral neural foraminal narrowing on the right at L3-4 and bilaterally at L4-5. SOFT TISSUES: No acute findings visualized in the paravertebral soft tissues. VASCULATURE: Atherosclerotic calcifications. KIDNEYS AND URETERS: There are right renal cysts. In addition, there is a solid-appearing mass mass at the upper pole of the right kidney which measures 6.7 x 4.7 x 4.1 cm. On the prior study, this measured 5.6 x 4.5 x 4.3 cm. IMPRESSION: 1. Solid-appearing mass at the upper pole of the right kidney, which has increased in size compared to the prior study. This is most compatible with malignancy. Recommend correlation with clinical history. 2. New lytic lesion within the L1 vertebral body, suggesting metastatic disease. 3. No acute fracture.
[2019-10-10] MEDS ORDERED: HYDROMORPHONE HCL INJ/PF 2 MG/ML AMPULE IV ONE (07:52)
--- NOTE | 2019-10-10 09:57 | RADIOLOGY REPORT (SQ) ---
EXAM DESCRIPTION: MRI THORACIC SPINE WITHOUT COMPLETED DATE/TIME: 10/10/2019 9:17 am REASON FOR STUDY: eval malignancy COMPARISON: None. TECHNIQUE: Sagittal and Axial imaging includes T1, T2, STIR and gradient echo sequences. LIMITATIONS: None. FINDINGS: LOCALIZER: No worrisome findings. ALIGNMENT: Normal. VERTEBRAE: Intact. BONE MARROW: Normal. No marrow replacement or reactive changes. HARDWARE: None in the spine. CORD: Normal in size and signal intensity. SOFT TISSUES: No soft tissue masses. THORACIC DISCS T1-T12: No significant spinal stenosis or exit foraminal stenosis. LOWER CERVICAL: Incompletely imaged. No significant spinal stenosis or exit foraminal stenosis. UPPER LUMBAR: Incompletely imaged. No significant spinal stenosis or exit foraminal stenosis. OTHER: Heterogenous mass in the upper pole of the right kidney, incompletely imaged. No other signif icant finding. IMPRESSION: NORMAL MRI THORACIC SPINE. NO EVIDENCE OF THORACIC VERTEBRAL METASTASIS. TECHNICAL DOCUMENTATION: JOB ID: [id number] [employer]- All Rights Reserved Reading location - IP/workstation name: [email or web address]
--- NOTE | 2019-10-10 10:14 | RADIOLOGY REPORT (SQ) ---
EXAM DESCRIPTION: MRI LUMBAR SPINE WITHOUT COMPLETED DATE/TIME: 10/10/2019 9:17 am REASON FOR STUDY: eval malignancy COMPARISON: CT dated 10/10/2019. TECHNIQUE: Sagittal and Axial imaging includes T1, T2, STIR and gradient echo sequences. LIMITATIONS: None. FINDINGS: VISUALIZED UPPER ABDOMEN: Limited evaluation. Heterogenous mass in the right kidney, not completely imaged. SEGMENTATION: No transitional anatomy. The lowest well-developed disc space is labeled L5-S1. ALIGNMENT: Anatomic. VERTEBRAE: Intact. BONE MARROW: There is a round lesion in the superior body of L1, located just below the endplate, kurt suring 1.5 cm. This has decreased signal on T1 and increased signal on T2 and STIR images. The edmund jack the bony structures are intact with no marrow replacement. DISC SIGNAL: Normal. No significant abnormal signal or loss of height. POSTERIOR ELEMENTS: Generally intact. No pars defect evident. HARDWARE: None in the spine. CORD AND CONUS: Normal in size and signal intensity. Conus at the appropriate level. SOFT TISSUES: No aortic aneurysm seen. No bulky retroperitoneal adenopathy or mass. No paraspinal mas s or fluid. L1-L2: No significant spinal stenosis or exit foraminal stenosis. L2-L3: No significant spinal stenosis or exit foraminal stenosis. L3-L4: Minimal diffuse disc bulge. Mild to moderate facet arthropathy. No significant spinal stenos is. Mild exit foraminal stenosis. L4-L5: Minimal posterior disc bulge. Luhe-[id number] facet arthropathy. No significant spinal sten osis. Mild exit foraminal stenosis. L5-S1: No significant spinal stenosis or exit foraminal stenosis. LOWER THORACIC: Incompletely imaged. No stenosis seen. SACRUM: Visualized upper sacrum intact. OTHER: No other significant findings. IMPRESSION: 1. HOMOGENEOUS ROUND LESION IN THE SUPERIOR BODY OF THE L1 VERTEBRAL BODY DESCRIBED. THIS IS CONC ERNING FOR A METASTATIC LESION. AN ATYPICAL SCHMORL'S NODE COULD BE ANOTHER POSSIBILITY BUT LESS LIK BEULAH. MAY CONSIDER BONE SCAN TO EVALUATE THE FINDING IN THE L1 VERTEBRAL BODY AND TO DETERMINE IF THE RE ARE ANY OTHER SKELETAL LESIONS IN THE REMAINDER OF THE BODY. 2. MILD CHRONIC DEGENERATIVE CHANGES DESCRIBED. NO SIGNIFICANT STENOSIS OR IMPINGEMENT. 3. HETEROGENOUS MASS IN THE RIGHT KIDNEY, NOT COMPLETELY IMAGED. TECHNICAL DOCUMENTATION: JOB ID: [id number]- All Rights Reserved Reading location - IP/workstation name: [email or web address]
[2019-10-10] MEDS ORDERED: ONDANSETRON HCL INJ/PF 4 MG/2 ML SDV IV PRN (10:44)
[2019-10-10] MEDS ORDERED: ACETAMINOPHEN 325 MG TABLET PO PRN ×2 (10:44→11:03)
[2019-10-10] MEDS ORDERED: OXYCODONE-ACETAMINOPHEN 5-325 MG TABLET PO PRN (10:57)
--- NOTE | 2019-10-10 11:50 | PDOC H&P ---
History of Present Illness Admission Date/PCP: 10/10/19 08:58 СВЕТЛАНА WHEELER MD Patient complains of: Flank pain low back pain History of Present Illness: OLINDA OCAMPO is a 58 year old male This is a 66-year-old male with a history of the end-stage disease and on hemodialysis history of the hypertension hyperlipidemia history of atrial fibrillation's congestive heart failure recently admitting in the hospital for the renal failure heart failure came today's with a complaining of flank pain and low back pain. According to the patient he was taking the nap on the couch and he stated when he got up at approximately 1:00 yesterday he felt his back froze up and he had a lot of pain cramping and trouble walking without having tightness and severe pain in the lower back. He denied any back surgery denied any recent injury no fall denied any fever denied any bowel bladder incontinent Had a dialysis done on Friday Patient's denied any history of any cancers Patient's initial CT of the lumbar spine suggest the lytic lesion in the renal mass which patient is denied any history of the renal mass in the past reviewing the record in January [address] scan of the chest was done by the ER physicians at the time the mention about the renal mass Patients have a lumbar MRI done which rounded lesion in the superior body of the L1 this is concerning about the metastatic lesion atypical not possibility but less likely At this point decided to admit the patient in the hospital for further evaluation about the renal mass Discussed with the Dr. Benson patient's nephrology he will further evaluate and will consult the Dr. Vieyra Past Medical History Cardiac Medical History: Reports: Congestive Heart Failure, DVT, Hyperlipidema, Hypertension Denies: Myocardial Infarction Pulmonary Medical History: Reports: Asthma, Chronic Obstructive Pulmonary Disease (COPD) Denies: Bronchitis, Pneumonia Neurological Medical History: Denies: Seizures Renal/ Medical History: Reports: End Stage Renal Disease Musculoskeltal Medical History: Reports: Arthritis - "DAMAGED NERVE TO RIGHT LEG" Psychiatric Medical History: Denies: Depression Hematology: Denies: Anemia Past Surgical History Past Surgical History: Reports: Vascular Surgery - Right upper arm AV fistula, right and left PermCaths Social History Information Source: Patient Lives with: Family Smoking Status: Never Smoker Frequency of Alcohol Use: Rare Hx Recreational Drug Use: No Drugs: None Hx Prescription Drug Abuse: No - Advance Directive Resuscitation Status: Full Code Family History Family History: Reviewed & Not Pertinent, Hypertension Parental Family History Reviewed: Yes Children Family History Reviewed: Unknown Sibling(s) Family History Reviewed.: Unknown Medication/Allergy Allergies/Adverse Reactions: DRY GAMBRO DIALYZERS Allergy (Unknown, Uncoded 06/22/18 04:07) "BP drop, vomiting" PAPER TAPE Allergy (Uncoded 06/22/18 04:07) Rash Review of Systems Constitutional: ABSENT: chills, fever(s), headache(s), weight gain, weight loss Eyes: ABSENT: visual disturbances Ears: ABSENT: hearing changes Cardiovascular: ABSENT: chest pain, dyspnea on exertion, edema, orthropnea, palpitations Respiratory: ABSENT: cough, hemoptysis Gastrointestinal: ABSENT: abdominal pain, constipation, diarrhea, hematemesis, hematochezia, nausea, vomiting Genitourinary: ABSENT: dysuria, hematuria Musculoskeletal: ABSENT: joint swelling Integumentary: ABSENT: rash, wounds Neurological: ABSENT: abnormal gait, abnormal speech, confusion, dizziness, focal weakness, syncope Psychiatric: ABSENT: anxiety, depression, homidical ideation, suicidal ideation Endocrine: ABSENT: cold intolerance, heat intolerance, menstrual abnormalities, polydipsia, polyuria Hematologic/Lymphatic: ABSENT: easy bleeding, easy bruising, lymphadenopathy Physical Exam Vital Signs: Temp Pulse Resp BP Pulse Ox 99.4 F 78 14 154/89 H 100 10/09/19 23:52 10/09/19 23:52 10/10/19 10:01 10/10/19 10:01 10/10/19 10:01 Intake & Output 10/09/19 10/10/19 10/11/19 06:59 06:59 06:59 Weight 97.4 kg General appearance: PRESENT: no acute distress, well-developed, well-nourished Head exam: PRESENT: atraumatic, normocephalic Eye exam: PRESENT: conjunctiva pink, EOMI, PERRLA. ABSENT: scleral icterus Ear exam: PRESENT: normal external ear exam Mouth exam: PRESENT: moist, tongue midline Neck exam: PRESENT: full ROM. ABSENT: carotid bruit, JVD, lymphadenopathy, thyromegaly Respiratory exam: PRESENT: clear to auscultation dave Cardiovascular exam: PRESENT: RRR. ABSENT: diastolic murmur, rubs, systolic murmur Pulses: PRESENT: normal dorsalis pedis pul, +2 pedal pulses bilateral Vascular exam: PRESENT: normal capillary refill GI/Abdominal exam: PRESENT: normal bowel sounds, soft. ABSENT: distended, guarding, mass, organolmegaly, rebound, tenderness Rectal exam: PRESENT: deferred Extremities exam: ABSENT: pedal edema Musculoskeletal exam: PRESENT: ambulatory Neurological exam: PRESENT: alert, awake, oriented to person, oriented to place, oriented to time, oriented to situation, CN II-XII grossly intact. ABSENT: motor sensory deficit Psychiatric exam: PRESENT: appropriate affect, normal mood. ABSENT: homicidal ideation, suicidal ideation Skin exam: PRESENT: dry, intact, warm. ABSENT: cyanosis, rash Results Laboratory Results: 10/09/19 23:16 10/09/19 23:16 10/09/19 10/09/19 23:16 23:16 WBC 7.2 RBC 4.06 L Hgb 12.3 L Hct 36.3 L MCV 90 MCH 30.3 MCHC 33.8 RDW 15.5 H Plt Count 152 Seg Neutrophils % 80.8 H Sodium 134.5 L Potassium 5.2 H Chloride 94 L Carbon Dioxide 27 Anion Gap 14 BUN 46 H Creatinine 14.12 H Est GFR ( Amer) 4 L Glucose 100 Calcium 8.8 Total Bilirubin 0.5 AST 19 Alkaline Phosphatase 62 Total Protein 7.4 Albumin 4.1 10/09/19 10/09/19 23:16 23:16 Creatine Kinase 121 CK-MB (CK-2) 0.57 Troponin I 0.112 Impressions: Lumbar Spine CT 10/10/19 03:49 IMPRESSION: 1. Solid-appearing mass at the upper pole of the right kidney, which has increased in size compared to the prior study. This is most compatible with malignancy. Recommend correlation with clinical history. 2. New lytic lesion within the L1 vertebral body, suggesting metastatic disease. 3. No acute fracture. Lumbar Spine MRI 10/10/19 06:22 IMPRESSION: 1. HOMOGENEOUS ROUND LESION IN THE SUPERIOR BODY OF THE L1 VERTEBRAL BODY DESCRIBED. THIS IS CONCERNING FOR A METASTATIC LESION. AN ATYPICAL SCHMORL'S NODE COULD BE ANOTHER POSSIBILITY BUT LESS LIKELY. MAY CONSIDER BONE SCAN TO EVALUATE THE FINDING IN THE L1 VERTEBRAL BODY AND TO DETERMINE IF THERE ARE ANY OTHER SKELETAL LESIONS IN THE REMAINDER OF THE BODY. 2. MILD CHRONIC DEGENERATIVE CHANGES DESCRIBED. NO SIGNIFICANT STENOSIS OR IMPINGEMENT. 3. HETEROGENOUS MASS IN THE RIGHT KIDNEY, NOT COMPLETELY IMAGED. Thoracic Spine MRI 10/10/19 06:22 IMPRESSION: NORMAL MRI THORACIC SPINE. NO EVIDENCE OF THORACIC VERTEBRAL METASTASIS. Assessment & Plan - Diagnosis (1) Lower back pain Qualifiers: Chronicity: acute Back pain laterality: bilateral Sciatica presence: without sciatica Qualified Code(s): M54.5 - Low back pain Is this a current diagnosis for this admission?: Yes Plan: We will asked the pain management to further evaluate in the setting of this lytic lesions in the renal mass (2) Lytic lesion of bone on x-ray Is this a current diagnosis for this admission?: Yes Plan: With the oncology and he will asked the pain management to further evaluate and possible biopsy (3) Renal mass, right Is this a current diagnosis for this admission?: Yes Plan: Ultrasound for the kidney (4) Atrial flutter Qualifiers: Atrial flutter type: typical Qualified Code(s): I48.3 - Typical atrial flutter Is this a current diagnosis for this admission?: Yes Plan: Since seen by the cardiology in the last visit we can start again (5) Chronic obstructive pulmonary disease Qualifiers: COPD type: COPD with acute exacerbation Qualified Code(s): J44.1 - Chronic obstructive pulmonary disease with (acute) exacerbation Is this a current diagnosis for this admission?: Yes Plan: neb treatments (6) End-stage renal disease on hemodialysis Is this a current diagnosis for this admission?: Yes Plan: Plan on hemodialysis (7) Hyperkalemia Is this a current diagnosis for this admission?: Yes Plan: stable (8) Sleep-disordered breathing Is this a current diagnosis for this admission?: Yes - Time Time Spent: 50 to 70 Minutes Medications reviewed and adjusted accordingly: Yes Anticipated discharge: Home Within: Other - Inpatient Certification Based on my medical assessment, after consideration of the patient's comorbidities, presenting symptoms, or acuity I expect that the services needed warrant INPATIENT care.: Yes I certify that my determination is in accordance with my understanding of Medicare's requirements for reasonable and necessary INPATIENT services [42 CFR 412.3e].: Yes Medical Necessity: Significant Comorbidiites Make Outpatient Treatment Too Risky, Need Close Monitoring Due to Risk of Patient Decompensation, Need For Continuous Telemetry Monitoring, Need for Pain Control Post Hospital Care: D/C Header Dock Documentation - Plan Summary Plan Summary: Admit the patient in IMCU see MD orders
--- NOTE | 2019-10-10 12:20 | PDOC CONSULTATION ---
Consultation Consult Date: 10/10/19 Attending physician:: RENETTA MADRIGAL Provider Consulted: DAVID GUNN Consult reason:: Right kidney mass, lytic lesion L1 History of Present Illness Admission Date/PCP: 10/10/19 08:58 СВЕТЛАНА WHEELER MD Patient complains of: Right flank pain History of Present Illness: OLINDA OCAMPO is a 58 year old male who presents with a 1 to 2-week history of increasing right flank pain. Also back pain. Upon admission patient noted to have L1 lytic lesion on lumbar spine CT. There also was a right renal mass n oted. The renal mass was up to about 6 cm. I was called overnight and recommended that patient have thoracic and lumbar spine MRI without contrast, to ensure that there was no cord compression, this indicated an L1 lesion. Of note, patient had CTA of the chest done in 2018 which did indicate concern of a 3.8 cm right renal mass. Patient notes that he is lost about 40 pounds over the last 6 months. Past Medical History Cardiac Medical History: Reports: Congestive Heart Failure, DVT, Hyperlipidema, Hypertension Denies: Coronary Artery Disease, Myocardial Infarction Pulmonary Medical History: Reports: Asthma, Chronic Obstructive Pulmonary Disease (COPD) Denies: Bronchitis, Pneumonia Neurological Medical History: Denies: Seizures Renal/ Medical History: Reports: End Stage Renal Disease Musculoskeltal Medical History: Reports: Arthritis - "DAMAGED NERVE TO RIGHT LEG" Psychiatric Medical History: Denies: Depression Hematology: Denies: Anemia Past Surgical History Past Surgical History: Reports: Vascular Surgery - Right upper arm AV fistula, right and left PermCaths Social History Information Source: Patient Lives with: Family Smoking Status: Never Smoker Frequency of Alcohol Use: Rare Hx Recreational Drug Use: No Drugs: None Hx Prescription Drug Abuse: No - Advance Directive Resuscitation Status: Full Code Family History Family History: Reviewed & Not Pertinent, Hypertension Parental Family History Reviewed: Yes Children Family History Reviewed: Yes Sibling(s) Family History Reviewed.: Yes Medication/Allergy Home Medications: Acetaminophen [Tylenol 325 mg Tablet] 650 mg PO Q4HP PRN 10/10/19 Albuterol Sulfate [Albuterol Sulfate Hfa] 2 puff IH Q4HP PRN 10/10/19 Amiodarone HCl [Cordarone 200 mg Tablet] 200 mg PO DAILY 10/10/19 Apixaban [Eliquis 2.5 mg Tablet] 2.5 mg PO Q12 10/10/19 Calcium Acetate [Phoslo 667 mg Capsule] 2,001 mg PO MEALS 10/10/19 Calcium Acetate [Phoslo 667 mg Capsule] 667 mg PO .BIDWITHSNACKS 10/10/19 Calcium Carbonate [Tums] 200 mg PO DAILYP PRN 10/10/19 Cinacalcet HCl [Sensipar 30 mg Tablet] 30 mg PO DAILY 10/10/19 Clonidine HCl [Catapres 0.1 mg Tablet] 0.1 mg PO DAILY 10/10/19 Metoprolol Tartrate [Lopressor 25 mg Tablet] 25 mg PO DAILY 10/10/19 Simvastatin 20 mg PO QHS 10/10/19 Allergies/Adverse Reactions: DRY GAMBRO DIALYZERS Allergy (Unknown, Uncoded 06/22/18 04:07) "BP drop, vomiting" PAPER TAPE Allergy (Uncoded 06/22/18 04:07) Rash Review of Systems Constitutional: ABSENT: chills, fever(s), headache(s), weight gain, weight loss Eyes: ABSENT: visual disturbances Ears: ABSENT: hearing changes Cardiovascular: ABSENT: chest pain, dyspnea on exertion, edema, orthropnea, palpitations Respiratory: ABSENT: cough, hemoptysis Gastrointestinal: ABSENT: abdominal pain, constipation, diarrhea, hematemesis, hematochezia, nausea, vomiting Genitourinary: ABSENT: dysuria, hematuria Musculoskeletal: ABSENT: joint swelling Integumentary: ABSENT: rash, wounds Neurological: ABSENT: abnormal gait, abnormal speech, confusion, dizziness, focal weakness, syncope Psychiatric: ABSENT: anxiety, depression, homidical ideation, suicidal ideation Endocrine: ABSENT: cold intolerance, heat intolerance, polydipsia, polyuria Hematologic/Lymphatic: ABSENT: easy bleeding, easy bruising Physical Exam Vital Signs: Temp Pulse Resp BP Pulse Ox 99.4 F 78 14 154/89 H 100 10/09/19 23:52 10/09/19 23:52 10/10/19 10:01 10/10/19 10:01 10/10/19 10:01 Intake & Output 10/09/19 10/10/19 10/11/19 06:59 06:59 06:59 Weight 97.4 kg General appearance: PRESENT: no acute distress, well-developed, well-nourished Head exam: PRESENT: atraumatic, normocephalic Eye exam: PRESENT: conjunctiva pink, EOMI, PERRLA. ABSENT: scleral icterus Ear exam: PRESENT: normal external ear exam Mouth exam: PRESENT: moist, tongue midline Neck exam: ABSENT: carotid bruit, JVD, lymphadenopathy, thyromegaly Respiratory exam: PRESENT: clear to auscultation dave. ABSENT: rales, rhonchi, wheezes Cardiovascular exam: PRESENT: RRR. ABSENT: diastolic murmur, rubs, systolic murmur Pulses: PRESENT: normal dorsalis pedis pul Vascular exam: PRESENT: normal capillary refill GI/Abdominal exam: PRESENT: normal bowel sounds, soft. ABSENT: distended, guarding, mass, organolmegaly, rebound, tenderness Rectal exam: PRESENT: deferred Extremities exam: PRESENT: full ROM. ABSENT: calf tenderness, clubbing, pedal edema Neurological exam: PRESENT: alert, awake, oriented to person, oriented to place, oriented to time, oriented to situation, CN II-XII grossly intact. ABSENT: motor sensory deficit Psychiatric exam: PRESENT: appropriate affect, normal mood. ABSENT: homicidal ideation, suicidal ideation Skin exam: PRESENT: dry, intact, warm. ABSENT: cyanosis, rash Results Laboratory Results: 10/09/19 23:16 10/09/19 10/09/19 23:16 23:16 WBC 7.2 RBC 4.06 L Hgb 12.3 L Hct 36.3 L MCV 90 MCH 30.3 MCHC 33.8 RDW 15.5 H Plt Count 152 Seg Neutrophils % 80.8 H Sodium 134.5 L Potassium 5.2 H Chloride 94 L Carbon Dioxide 27 Anion Gap 14 BUN 46 H Creatinine 14.12 H Est GFR ( Amer) 4 L Glucose 100 Calcium 8.8 Total Bilirubin 0.5 AST 19 Alkaline Phosphatase 62 Total Protein 7.4 Albumin 4.1 10/09/19 10/09/19 23:16 23:16 Creatine Kinase 121 CK-MB (CK-2) 0.57 Troponin I 0.112 Impressions: Lumbar Spine CT 10/10/19 03:49 IMPRESSION: 1. Solid-appearing mass at the upper pole of the right kidney, which has increased in size compared to the prior study. This is most compatible with malignancy. Recommend correlation with clinical history. 2. New lytic lesion within the L1 vertebral body, suggesting metastatic disease. 3. No acute fracture. Lumbar Spine MRI 10/10/19 06:22 IMPRESSION: 1. HOMOGENEOUS ROUND LESION IN THE SUPERIOR BODY OF THE L1 VERTEBRAL BODY DESCRIBED. THIS IS CONCERNING FOR A METASTATIC LESION. AN ATYPICAL SCHMORL'S NODE COULD BE ANOTHER POSSIBILITY BUT LESS LIKELY. MAY CONSIDER BONE SCAN TO EVALUATE THE FINDING IN THE L1 VERTEBRAL BODY AND TO DETERMINE IF THERE ARE ANY OTHER SKELETAL LESIONS IN THE REMAINDER OF THE BODY. 2. MILD CHRONIC DEGENERATIVE CHANGES DESCRIBED. NO SIGNIFICANT STENOSIS OR IMPINGEMENT. 3. HETEROGENOUS MASS IN THE RIGHT KIDNEY, NOT COMPLETELY IMAGED. Thoracic Spine MRI 10/10/19 06:22 IMPRESSION: NORMAL MRI THORACIC SPINE. NO EVIDENCE OF THORACIC VERTEBRAL M ETASTASIS. Status: Image reviewed by me Assessment & Plan - Diagnosis (1) Lytic lesion of bone on x-ray Is this a current diagnosis for this admission?: Yes Plan: He does appear concerning, discussed with radiology who notes that CT-guided biopsy is possible, also discussed with Dr. Patino of pain management who notes that they can do a biopsy and do also osteo-cool procedure which would treat that area as well. We will hold all anticoagulants, patient will need to be n.p.o. after midnight on Friday, and the procedure could potentially be done on Friday. In terms of pain will increase oxycodone to 10 mg every 4 hours. Ultimately if pain is not controlled by tomorrow we will start him on OxyContin. (2) Renal mass, right Is this a current diagnosis for this admission?: Yes Plan: Concerning for primary renal cancer, with spread to bone, discussed this with the patient, it is generally better to biopsy a metastatic lesion in the kidney cancer case. Therefore we will go after the bone first. But ultimately if the bone is negative we may need to do a kidney biopsy. - Time Time Spent: Greater than 70 Minutes - Inpatient Certification Based on my medical assessment, after consideration of the patient's leticia rbidities, presenting symptoms, or acuity I expect that the services needed warrant INPATIENT care.: Yes I certify that my determination is in accordance with my understanding of Medicare's requirements for reasonable and necessary INPATIENT services [42 CFR 412.3e].: Yes Medical Necessity: Need for Pain Control, Need for Surgery
[2019-10-10 12:34] LABS: ANION GAP 19 (5-19); BLOOD UREA NITROGEN 52 mg/dL (7-20); CARBON DIOXIDE 23 mmol/L (22-30); CHLORIDE 93 mmol/L (98-107); GLUCOSE 99 mg/dL (75-110); POTASSIUM 5.3 mmol/L (3.6-5.0)
[2019-10-10] MEDS: OXYCODONE HCL IR 5 MG TABLET PO PRN (13:23)
[2019-10-10] MEDS ORDERED: HEPARIN SOD (PORCINE) 5,000 UNIT/ML 1 ML VIAL SUBCUT SCH (14:00)
--- NOTE | 2019-10-10 14:10 | RADIOLOGY REPORT (SQ) ---
EXAM DESCRIPTION: CT CHEST WITHOUT; CT ABD/PELVIS NO ORAL OR IV COMPLETED DATE/TIME: 10/10/2019 1:49 pm; 10/10/2019 1:47 pm REASON FOR STUDY: chf/renal mass COMPARISON: Multiple prior same day imaging studies. TECHNIQUE: CT scan of the chest performed without intravenous contrast using helical scanning techni que. Images reviewed with lung, soft tissue and bone windows. Reconstructed coronal and sagittal MPR images reviewed. All images stored on PACS. CT scan of the abdomen and pelvis performed without intravenous contrast and withoutoral contrast usi ng helical scanning technique with dynamic intravenous contrast injection. Images reviewed with lung , soft tissue and bone windows. Reconstructed coronal and sagittal MPR images reviewed. All images stored on PACS. All CT scanners at this facility use dose modulation, iterative reconstruction, and/or weight based d osing when appropriate to reduce radiation dose to as low as reasonably achievable (ALARA). [facility]: Dose Right [facility]: CareDose [facility]: Dose Right [facility]: Teradose 4D [facility]: Smart [employer] RADIATION DOSE: CT Rad equipment meets quality standard of care and radiation dose reduction techniq ues were employed. CTDIvol: 11.2 mGy. DLP: 864 mGy-cm. mGy. LIMITATIONS: No technical limitations. FINDINGS: CHEST: AXILLAE: Prominent axillary lymph nodes. Largest on the right measures 2 cm. CHEST WALL: No masses. No subcutaneous air. LUNGS: Minimal focal ground-glass opacity right lung base. No nodules or masses. PLEURA: No effusions. No calcifications. THYROID: No masses or significant asymmetry. HILAR AND MEDIASTINAL STRUCTURES: 2 cm mediastinal nodes with minimal calcification. AORTA AND GREAT VESSELS: No aneurysm. Extensive calcifications. HEART: No pericardial effusion. HARDWARE AND LIFELINES: Venous access catheter. BONES: No significant finding. OTHER: No other significant finding. ABDOMEN AND PELVIS: LIVER: Normal size. No masses. No dilated ducts. SPLEEN: Normal size. No focal lesions. PANCREAS: No masses. No significant calcifications. No adjacent inflammation or peripancreatic flui d collections. Pancreatic duct not dilated. GALLBLADDER: No identified stones by CT criteria. No inflammatory changes to suggest cholecystitis. ADRENAL GLANDS: No significant masses or asymmetry. RIGHT KIDNEY AND URETER: Upper pole renal mass, previously described. Hounsfield units solid range. Maximum diameter 6.3 cm. . Atrophic right kidney. LEFT KIDNEY AND URETER: Atrophic left kidney. AORTA AND VESSELS: No aneurysm. RETROPERITONEUM: No retroperitoneal adenopathy, hemorrhage or masses. APPENDIX: Normal. LARGE AND SMALL BOWEL: No dilatation. No masses. No wall thickening. ABDOMINAL WALL: No hernia or masses. PERITONEAL CAVITY: No free air. No free fluid. No peritoneal implants or masses. PELVIS: No mass or free fluid. Normal bladder. BONES: Probable Schmorl's node at L1. Well-circumscribed along the superior endplate. No extension into the pedicles. OTHER: No other significant finding. IMPRESSION: Prominent axillary nodes. Not definitely pathologic. Indeterminate nodes in the mediastinum. Solid right renal mass measuring over 6 cm. Atrophic kidneys. Probable Schmorl's noted L1. Well-circumscribed along the superior endplate without extension into t he pedicles. TECHNICAL DOCUMENTATION: JOB ID: [id number] Quality ID # [id number]: Final reports with documentation of one or more dose reduction techniques (e.g., Au tomated exposure control, adjustment of the mA and/or kV according to patient size, use of iterative reconstruction technique) 2010 [employer]- All Rights Reserved Reading location - IP/workstation name: [email or web address]
--- NOTE | 2019-10-10 14:10 | RADIOLOGY REPORT (SQ) ---
EXAM DESCRIPTION: CT CHEST WITHOUT; CT ABD/PELVIS NO ORAL OR IV COMPLETED DATE/TIME: 10/10/2019 1:49 pm; 10/10/2019 1:47 pm REASON FOR STUDY: chf/renal mass COMPARISON: Multiple prior same day imaging studies. TECHNIQUE: CT scan of the chest performed without intravenous contrast using helical scanning techni que. Images reviewed with lung, soft tissue and bone windows. Reconstructed coronal and sagittal MPR images reviewed. All images stored on PACS. CT scan of the abdomen and pelvis performed without intravenous contrast and withoutoral contrast usi ng helical scanning technique with dynamic intravenous contrast injection. Images reviewed with lung , soft tissue and bone windows. Reconstructed coronal and sagittal MPR images reviewed. All images stored on PACS. All CT scanners at this facility use dose modulation, iterative reconstruction, and/or weight based d osing when appropriate to reduce radiation dose to as low as reasonably achievable (ALARA). [facility]: Dose Right [facility]: CareDose [facility]: Dose Right [facility]: Teradose 4D [facility]: Smart [employer] RADIATION DOSE: CT Rad equipment meets quality standard of care and radiation dose reduction techniq ues were employed. CTDIvol: 11.2 mGy. DLP: 864 mGy-cm. mGy. LIMITATIONS: No technical limitations. FINDINGS: CHEST: AXILLAE: Prominent axillary lymph nodes. Largest on the right measures 2 cm. CHEST WALL: No masses. No subcutaneous air. LUNGS: Minimal focal ground-glass opacity right lung base. No nodules or masses. PLEURA: No effusions. No calcifications. THYROID: No masses or significant asymmetry. HILAR AND MEDIASTINAL STRUCTURES: 2 cm mediastinal nodes with minimal calcification. AORTA AND GREAT VESSELS: No aneurysm. Extensive calcifications. HEART: No pericardial effusion. HARDWARE AND LIFELINES: Venous access catheter. BONES: No significant finding. OTHER: No other significant finding. ABDOMEN AND PELVIS: LIVER: Normal size. No masses. No dilated ducts. SPLEEN: Normal size. No focal lesions. PANCREAS: No masses. No significant calcifications. No adjacent inflammation or peripancreatic flui d collections. Pancreatic duct not dilated. GALLBLADDER: No identified stones by CT criteria. No inflammatory changes to suggest cholecystitis. ADRENAL GLANDS: No significant masses or asymmetry. RIGHT KIDNEY AND URETER: Upper pole renal mass, previously described. Hounsfield units solid range. Maximum diameter 6.3 cm. . Atrophic right kidney. LEFT KIDNEY AND URETER: Atrophic left kidney. AORTA AND VESSELS: No aneurysm. RETROPERITONEUM: No retroperitoneal adenopathy, hemorrhage or masses. APPENDIX: Normal. LARGE AND SMALL BOWEL: No dilatation. No masses. No wall thickening. ABDOMINAL WALL: No hernia or masses. PERITONEAL CAVITY: No free air. No free fluid. No peritoneal implants or masses. PELVIS: No mass or free fluid. Normal bladder. BONES: Probable Schmorl's node at L1. Well-circumscribed along the superior endplate. No extension into the pedicles. OTHER: No other significant finding. IMPRESSION: Prominent axillary nodes. Not definitely pathologic. Indeterminate nodes in the mediastinum. Solid right renal mass measuring over 6 cm. Atrophic kidneys. Probable Schmorl's noted L1. Well-circumscribed along the superior endplate without extension into t he pedicles. TECHNICAL DOCUMENTATION: JOB ID: [id number] Quality ID # [id number]: Final reports with documentation of one or more dose reduction techniques (e.g., Au tomated exposure control, adjustment of the mA and/or kV according to patient size, use of iterative reconstruction technique) 2010 [employer] ([email or web address])- All Rights Reserved Reading location - IP/workstation name: [email or web address]
--- NOTE | 2019-10-10 17:17 | PDOC CONSULTATION ---
Consultation-Blank Consultation: CARDIOLOGY CONSULTATION by Dr. Amanda Dumont on 10/10/2019. Patient seen at 11 AM on 10/10/2019. 60 minutes spent with patient more than 50% time spent in direct patient care. REASON FOR CONSULTATION: Assessment of cardiac status for a patient who may need surgery for his right renal mass. Also advised regarding stopping Eliquis for his L1 vertebral biopsy. CONSULT REQUESTING PHYSICIAN: Dr. Garcia. HISTORY OF PRESENT ILLNESS: Patient is a 58-year-old noncompliant - Bangladeshi male with a history of end-stage renal disease on hemodialysis, hypertension, and paroxysmal atrial fibrillation in sinus rhythm on amiodarone and Eliquis complaining of increasing right flank pain and also back pain and b ack spasms. He was found to have a renal mass which is 6.4 cm and also a likely lesion in the lumbar vertebra. The patient denies any chest pain or discomfort. There is no shortness of breath. There is no PND orthopnea. The patient denies any palpitations or recurrence of his atrial fibrillation. There is no TIA CVA symptoms. There is no bleeding on Eliquis. PAST MEDICAL HISTORY: He has a history of hypertension, and history of end-stage renal disease. He has a history of paroxysmal atrial fibrillation/flutter. He used to be on Coumadin, and was subtherapeutic INR, and hence now the patient is on Eliquis 2.5 mg p.o. twice daily, which he claims he has been taking regularly. There is no history of TIA CVA. PAST MEDICAL HISTORY: He has a history of hypertension, and history of end-stage renal disease. He has a history of paroxysmal atrial fibrillation/flutter. He used to be on Coumadin, and was subtherapeutic INR, and hence now the patient is on Eliquis 2.5 mg p.o. twice daily, which he claims he has been taking regularly. There is no history of TIA CVA. There is no history of congestive heart failure. The patient has some symptoms of surgical sleep apnea, but has not had a formal sleep study. He has no history of thyroid disease. He is not a diabetic. There is no history of anxiety or depression. He has a history of left hip arthritis. PAST SURGICAL HISTORY: He has a history of AV fistula placement in the right arm which is working fine and also a permacath placement. The patient does not smoke there is no history of EtOH abuse. ALLERGIES: He is allergic and dry [place] dialysis. DISPOSITION: The patient is a full code. His brother is a surrogate healthcare decision maker. FAMILY HISTORY: Is positive for hypertension. Negative for coronary artery disease. REVIEW of symptoms: Head: Denies headaches or head injury. CONSTITUTIONAL: No history of fever chills or rigors. The patient when he was in atrial flutter had some fatigue and generalized weakness. EYES: No history of amblyopia diplopia. NO HISTORY OF AMAUROSIS FUGAX. Ears: No history of tinnitus, no history of hearing loss. No recurrent ear infections. NOSE: No history of nosebleeds. No history of hayfever. MOUTH: No history of altered taste sensation. No ulcers in the mouth. No bleeding from the gums. THROAT: No history of odynophagia or dysphagia. No recurrent sore throats. SKIN: No history of pruritus. No history of yellowish discoloration of the skin. No history of psoriasis. No history of significant skin cancer. NECK: No neck pain, no swelling in the neck. No lymphadenopathy. No goiter. LUNGS: No history of asthma COPD. No cough or wheezing. No history of pulmonary embolism. No history of pleuritic chest pain or hemoptysis. He has some symptoms of obstructive sleep apnea, but has not had a sleep study. No symptoms of upper or lower respiratory tract infections. HEART: History of hypertension present history of recurrent paroxysmal atrial flutter and atrial fibrillation. At present the patient is converted. This episode precipitated by the patient discontinuing medication for a few days. There is no history of congestive heart failure. No history of coronary artery disease. No history of VA or anginal symptoms. No history of PND orthopnea leg edema. NO HISTORY OF SYNCOPE. Musculoskeletal: There is a history of arthritis of his left hip, and hence patient not very active. No history of collagen vascular disease. He has right flank pain due to renal mass. And also pain in the lumbar vertebra due to metastatic lytic lesion. ENDOCRINE: No history of heat or cold intolerance. No history of polydipsia polyuria. No history of diabetes mellitus. No history of thyroid disease. RENAL: No hematuria pyuria or dysuria. History of end-stage renal disease on hemodialysis. GI: No history of GI bleed. No history of fatty food intolerance. No history of abdominal pain. No history of altered bowel movements. No history of ascites. No history of cirrhosis. APPETITE is good. E LEARNING COORDINATOR: No history of TIA. No history of headaches migraines or seizures. No history of CVA. No history of gait imbalance. PSYCHIATRIC: No history of anxiety or depression. No history of suicidal ideation. No history of homicidal ideation. VASCULAR: No history of calf or buttock claudication. No history of DVT. Hematological: History of chronic anemia due to end-stage renal disease. No history of bleeding diathesis. No history of blood dyscrasias. No history of clotting disorders.There is no history of congestive heart failure. The patient has some symptoms of sleep apnea, but has not had a formal sleep study. He has no history of thyroid disease. He is not a diabetic. There is no history of anxiety or depression. He has a history of left hip arthritis. PAST SURGICAL HISTORY: He has a history of AV fistula placement in the right arm which failed and the patient states that he went for repair of the fistula at [place] which they could not. His right arm is swollen. SOCIAL HISTORY:. The patient does not smoke there is no history of EtOH abuse. ALLERGIES: He is allergic and dry [place] dialysis. DISPOSITION: The patient is a full code. His brother is a surrogate healthcare decision maker. Current Medications Acetaminophen (Tylenol 325 Mg Tablet) 650 mg PO Q4HP PRN PRN Reason: FOR MILD PAIN OR TEMP Stop: 11/09/19 11:02 Docusate Sodium (Colace 100 Mg Capsule) 100 mg PO DAILY [facility] Stop: 11/10/19 09:59 Famotidine (Pepcid 20 Mg Tablet) 20 mg PO Q12 [facility] Stop: 11/09/19 21:59 Heparin Sodium (Porcine) (Heparin Inj 1,000 Unit/Ml 10 Ml Vial) 3,600 unit IV .SPLIT B/N CATHETERS PRN PRN Reason: THIS MED IS NOT "PRN" Stop: 10/11/19 23:59 Hydromorphone HCl (Dilaudid Inj/Pf 2 Mg/Ml Ampule) 1 mg IV Q4HP PRN PRN Reason: PAIN 3-5 Stop: 10/17/19 17:16 Last Admin: 10/10/19 17:39 Dose: 1 mg Documented by: Ondansetron HCl (Zofran Inj/Pf 4 Mg/2 Ml Sdv) 4 mg IV Q4HP PRN PRN Reason: FOR NAUSEA/VOMITING Stop: 11/09/19 10:43 Oxycodone HCl (Oxy-Ir 5 Mg Tablet) 10 mg PO Q4HP PRN PRN Reason: FOR PAIN Stop: 10/17/19 12:34 Last Admin: 10/10/19 13:23 Dose: 10 mg Documented by: Discontinued Medications Acetaminophen (Tylenol 325 Mg Tablet) 650 mg PO Q4HP PRN PRN Reason: FOR PAIN OR TEMP Stop: 11/09/19 10:43 Heparin Sodium (Porcine) (Heparin Inj 5,000 Units/Ml 1 Ml Vial) 5,000 unit SUBCUT Q8 [facility] Stop: 11/09/19 13:59 Hydromorphone HCl (Dilaudid Inj/Pf 2 Mg/Ml Ampule) 1 mg IV NOW ONE Stop: 10/10/19 07:53 Last Admin: 10/10/19 08:08 Dose: 1 mg Documented by: Morphine Sulfate (Morphine 10 Mg/Ml Inj) 3 mg IV NOW ONE Stop: 10/10/19 03:48 Last Admin: 10/10/19 06:12 Dose: 3 mg Documented by: Morphine Sulfate (Morphine 10 Mg/Ml Inj) 3 mg IV NOW ONE Stop: 10/10/19 07:01 Last Admin: 10/10/19 06:16 Dose: Not Given Documented by: Ondansetron HCl (Zofran Inj/Pf 4 Mg/2 Ml Sdv) 4 mg IV NOW ONE Stop: 10/10/19 03:49 Last Admin: 10/10/19 06:13 Dose: 4 mg Documented by: Ondansetron HCl (Zofran Inj/Pf 4 Mg/2 Ml Sdv) 4 mg IV NOW ONE Stop: 10/10/19 06:16 Last Admin: 10/10/19 06:15 Dose: Not Given Documented by: Oxycodone/Acetaminophen (Percocet 5-325 Mg Tablet) 1 tab PO Q4HP PRN PRN Reason: FOR PAIN Stop: 10/17/19 10:56 FAMILY HISTORY: Is positive for hypertension. Negative for coronary artery disease. PHYSICAL EXAMINATION: The patient is mildly obese. In no acute distress. Selected Entries 10/10/19 10:57 Temperature 97.3 F Temperature Oral Source Pulse Rate 73 Respiratory 18 Rate Blood Pressure 140/92 H Blood Pressure 108 Mean BP Location Right Arm BP Position Supine O2 Sat by Pulse 98 Oximetry Oxygen Flow 1.00 Rate Oxygen Delivery Nasal Cannula Method HEAD: Is atraumatic and normocephalic. EYES: Pupils are equal round regular reactive to light accommodation. External ocular movements are normal. There is no conjunctival pallor. There is no scleral icterus. EARS: Tympanic membranes are intact. External auditory canals are clear. NOSE: There is no deviated nasal septum. There is no inflammation of the nasal mucous membrane. MOUTH: Mucous membranes of mouth are moist. Tongue is moist. There is no ulcers in the mouth. There is no bleeding from the gums. THROAT: There is no redness of the oropharynx. There is no exudates. SKIN: There is no skin rashes. There is no petechia or ecchymosis. There is no skin lesions. NECK: Is supple. There is no JVD. Carotids equal there is no bruit. There is no lymphadenopathy. Trachea central. LUNGS: Lungs are clear to auscultation percussion, without any rhonchi rales or wheezing. THERE IS NO CHEST WALL TENDERNESS. Heart: S1, S2 heard normally. There is no S3 gallop. There is no S4 gallop. There is systolic murmur left sternal border and apex. There is no rub. ABDOMEN: Soft. Nontender. There is no hepatosplenomegaly. All sounds are well heard. There is no tender areas of masses. EXTREMITIES: Femorals are diminished. There is no femoral bruits. Leg pulses are diminished. There is no pedal edema. There is diffuse swelling of the right upper extremity. There is no DVT or cellulitis. There is no cyanosis or clubbing. There is no calf tenderness. E LEARNING COORDINATOR: The patient is conscious awake alert oriented x3 with no focal deficits. PSYCHIATRIC: The patient judgment are intact his affect is normal. EKG [my interpretation]. Sinus rhythm. LVH with strain pattern. Cannot exclude inferolateral wall ischemia. Labs- Entire Visit 10/09/19 10/09/19 10/09/19 23:16 23:16 23:16 WBC 7.2 RBC 4.06 L Hgb 12.3 L Hct 36.3 L MCV 90 MCH 30.3 MCHC 33.8 RDW 15.5 H Plt Count 152 Lymph % (Auto) 8.4 L [place] % (Auto) 9.2 Eos % (Auto) 0.8 Baso % (Auto) 0.8 Absolute Neuts (auto) 5.8 Absolute Lymphs (auto) 0.6 Absolute Monos (auto) 0.7 Absolute Eos (auto) 0.1 Absolute Basos (auto) 0.1 Seg Neutrophils % 80.8 H PT 13.8 INR 1.06 Sodium 134.5 L Potassium 5.2 H Chloride 94 L Carbon Dioxide 27 Anion Gap 14 BUN 46 H Creatinine 14.12 H Est GFR ( Amer) 4 L Est GFR (MDRD) Non-Af 4 L Glucose 100 Calcium 8.8 Total Bilirubin 0.5 Direct Bilirubin 0.3 Neonat Total Bilirubin Not Reportable Neonat Direct Bilirubin Not Reportable Neonat Indirect Bili Not Reportable AST 19 ALT 11 Alkaline Phosphatase 62 Creatine Kinase 121 CK-MB (CK-2) Troponin I Total Protein 7.4 Albumin 4.1 10/09/19 10/10/19 23:16 11:50 WBC RBC Hgb Hct MCV MCH MCHC RDW Plt Count Lymph % (Auto) [place] % (Auto) Eos % (Auto) Baso % (Auto) Absolute Neuts (auto) Absolute Lymphs (auto) Absolute Monos (auto) Absolute Eos (auto) Absolute Basos (auto) Seg Neutrophils % PT INR Sodium 134.8 L Potassium 5.3 H Chloride 93 L Carbon Dioxide 23 Anion Gap 19 BUN 52 H Creatinine 15.87 H Est GFR ( Amer) 4 L Est GFR (MDRD) Non-Af 3 L Glucose 99 Calcium 9.0 Total Bilirubin Direct Bilirubin Neonat Total Bilirubin Neonat Direct Bilirubin Neonat Indirect Bili AST ALT Alkaline Phosphatase Creatine Kinase CK-MB (CK-2) 0.57 Troponin I 0.112 Total Protein Albumin Abdomen/Pelvis CT 10/10/19 00:00 IMPRESSION: Prominent axillary nodes. Not definitely pathologic. Indeterminate nodes in the mediastinum. Solid right renal mass measuring over 6 cm. Atrophic kidneys. Probable Schmorl's noted L1. Well-circumscribed along the superior endplate without extension into the pedicles. Chest CT 10/10/19 00:00 IMPRESSION: Prominent axillary nodes. Not definitely pathologic. Indeterminate nodes in the mediastinum. Solid right renal mass measuring over 6 cm. Atrophic kidneys. Probable Schmorl's noted L1. Well-circumscribed along the superior endplate without extension into the pedicles. Lumbar Spine CT 10/10/19 03:49 IMPRESSION: 1. Solid-appearing mass at the upper pole of the right kidney, which has increased in size compared to the prior study. This is most compatible with malignancy. Recommend correlation with clinical history. 2. New lytic lesion within the L1 vertebral body, suggesting metastatic disease. 3. No acute fracture. Lumbar Spine MRI 10/10/19 06:22 IMPRESSION: 1. HOMOGENEOUS ROUND LESION IN THE SUPERIOR BODY OF THE L1 VERTEBRAL BODY DESCRIBED. THIS IS CONCERNING FOR A METASTATIC LESION. AN ATYPICAL SCHMORL'S NODE COULD BE ANOTHER POSSIBILITY BUT LESS LIKELY. MAY CONSIDER BONE SCAN TO EVALUATE THE FINDING IN THE L1 VERTEBRAL BODY AND TO DETERMINE IF THERE ARE ANY OTHER SKELETAL LESIONS IN THE REMAINDER OF THE BODY. 2. MILD CHRONIC DEGENERATIVE CHANGES DESCRIBED. NO SIGNIFICANT STENOSIS OR IMPINGEMENT. 3. HETEROGENOUS MASS IN THE RIGHT KIDNEY, NOT COMPLETELY IMAGED. Thoracic Spine MRI 10/10/19 06:22 IMPRESSION: NORMAL MRI THORACIC SPINE. NO EVIDENCE OF THORACIC VERTEBRAL METASTASIS. MPRESSION/RECOMMENDATION: 1. 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 Patient for dialysis of the right leg lesion. Hence the patient's Eliquis has been discontinued. 2. Congestive heart failure secondary to volume overload during: Noncompliance with diet medication and renal dialysis. 3. Hyperkalemia in a patient with end-stage renal disease. The patient is getting dialyzed. 4. Paroxysmal atrial flutter. At present in sinus rhythm. Continue current medications. Note the patient is on amiodarone. The patient's liver function tests and thyroid function tests are normal. Later would get a full PFTs with DLCO, since the patient is on amiodarone. The patient has no prior history of TIA or CVA. Hence no need for bridging the patient with Lovenox when the patient's Eliquis has been stopped. 5. Hypertension: Well-controlled continue current medications. 6. END STAGE RENAL DISEASE: On hemodialysis. Patient scheduled for hemodialysis tomorrow. Would recommend discontinue the patient on current medications after dialysis. 7. History of hyperlipidemia. Continue statins 8. The patient's cardiac status is very stable. If the patient needs surgical removal of the renal mass the patient will be an acceptable cardiac risk for this procedure. Will follow Medical decision making is of high complexity. 60 minutes spent with patient with more than 50% of time spent in direct patient care. Will follow. Medical regimen and management plan discussed with attending physician.
[2019-10-10] MEDS: HYDROMORPHONE HCL INJ/PF 2 MG/ML AMPULE IV PRN ×2 (17:39→22:41)
[2019-10-10] MEDS ORDERED: FAMOTIDINE 20 MG TABLET PO SCH (22:00)
[2019-10-10] MEDS: DIPHENHYDRAMINE HCL 25 MG CAPSULE PO PRN (22:50)
--- NOTE | 2019-10-11 00:16 | EKG REPORT ---
SEVERITY:- ABNORMAL ECG - SINUS RHYTHM LEFT ATRIAL ABNORMALITY ABNORMAL T, CONSIDER ISCHEMIA, LATERAL LEADS : Confirmed by: Ana Hagan 11-Oct-2019 00:15:36
[2019-10-11] MEDS ORDERED: HEPARIN SOD (PORCINE) 1,000 UNIT/ML 10 ML VIAL IV PRN (05:00)
[2019-10-11] MEDS: OXYCODONE HCL IR 5 MG TABLET PO PRN ×4 (05:29→17:06)
[2019-10-11 07:10] LABS: ABSOLUTE BASOPHILS # (AUTO) 0.1 10^3/uL (0.0-0.2); ABSOLUTE EOSINOPHILS # (AUTO) 0.1 10^3/uL (0.0-0.6); ABSOLUTE LYMPHOCYTES (AUTO) 0.7 10^3/uL (0.5-4.7); ABSOLUTE MONOCYTES (AUTO) 1.2 10^3/uL (0.1-1.4); ABSOLUTE NEUT (AUTO) 7.4 10^3/uL (1.7-8.2); BASOPHILS % (AUTO) 0.7 % (0-2); EOSINOPHILS % (AUTO) 0.5 % (0-6); HEMATOCRIT 34.4 % (37.9-51.0); HEMOGLOBIN 11.8 g/dL (13.5-17.0); LYMPHOCYTES % (AUTO) 7.5 % (13-45); MEAN CORPUSCULAR HEMOGLOBIN 30.4 pg (27.0-33.4); MEAN CORPUSCULAR HGB CONC 34.2 g/dL (32.0-36.0); MEAN CORPUSCULAR VOLUME 89 fl (80-97); MONOCYTES % (AUTO) 12.5 % (3-13); PLATELET COUNT 151 10^3/uL (150-450); RED BLOOD COUNT 3.87 10^6/uL (4.35-5.55); RED CELL DISTRIBUTION WIDTH 15.6 % (11.5-14.0); SEGMENTED NEUTROPHILS % (AUTO) 78.8 % (42-78); TOTAL CELLS COUNTED % (AUTO) 100 %; WHITE BLOOD COUNT 9.4 10^3/uL (4.0-10.5)
[2019-10-11 07:27] LABS: ANION GAP 19 (5-19); BLOOD UREA NITROGEN 66 mg/dL (7-20); CALCIUM 8.6 mg/dL (8.4-10.2); CARBON DIOXIDE 21 mmol/L (22-30); CHLORIDE 91 mmol/L (98-107); GLUCOSE 112 mg/dL (75-110); POTASSIUM 5.8 mmol/L (3.6-5.0)
--- NOTE | 2019-10-11 07:53 | PDOC PROGRESS REPORT ---
Subjective Progress Note for:: 10/11/19 Subjective:: Patient still having a lot of pain, oxycodone 10 is not holding it. Reason For Visit: RENAL MASS/ESRD/BACK PAIN Physical Exam Vital Signs: Temp Pulse Resp BP Pulse Ox 97.3 F 77 20 173/90 H 90 L 10/11/19 03:26 10/11/19 07:00 10/11/19 03:26 10/11/19 03:26 10/11/19 03:26 Intake & Output 10/10/19 10/11/19 10/12/19 06:59 06:59 06:59 Intake Total 830 Output Total 0 Balance 830 Weight 97.4 kg General appearance: PRESENT: no acute distress, well-developed, well-nourished Head exam: PRESENT: atraumatic, normocephalic Eye exam: PRESENT: conjunctiva pink, EOMI, PERRLA. ABSENT: scleral icterus Ear exam: PRESENT: normal external ear exam Mouth exam: PRESENT: moist, tongue midline Neck exam: ABSENT: carotid bruit, JVD, lymphadenopathy, thyromegaly Respiratory exam: PRESENT: clear to auscultation dave. ABSENT: rales, rhonchi, wheezes Cardiovascular exam: PRESENT: RRR. ABSENT: diastolic murmur, rubs, systolic murmur Pulses: PRESENT: normal dorsalis pedis pul Vascular exam: PRESENT: normal capillary refill GI/Abdominal exam: PRESENT: normal bowel sounds, soft. ABSENT: distended, guarding, mass, organolmegaly, rebound, tenderness Rectal exam: PRESENT: deferred Extremities exam: PRESENT: full ROM. ABSENT: calf tenderness, clubbing, pedal edema Neurological exam: PRESENT: alert, awake, oriented to person, oriented to place, oriented to time, oriented to situation, CN II-XII grossly intact. ABSENT: motor sensory deficit Psychiatric exam: PRESENT: appropriate affect, normal mood. ABSENT: homicidal ideation, suicidal ideation Skin exam: PRESENT: dry, intact, warm. ABSENT: cyanosis, rash Results Laboratory Results: 10/11/19 06:41 10/11/19 06:41 10/10/19 10/11/19 10/11/19 11:50 06:41 06:41 WBC 9.4 RBC 3.87 L Hgb 11.8 L Hct 34.4 L MCV 89 MCH 30.4 MCHC 34.2 RDW 15.6 H Plt Count 151 Seg Neutrophils % 78.8 H Sodium 134.8 L 131.2 L Potassium 5.3 H 5.8 H Chloride 93 L 91 L Carbon Dioxide 23 21 L Anion Gap 19 19 BUN 52 H 66 H Creatinine 15.87 H 17.61 H Est GFR ( Amer) 4 L 3 L Glucose 99 112 H Calcium 9.0 8.6 Magnesium 2.3 10/09/19 10/09/19 23:16 23:16 Creatine Kinase 121 CK-MB (CK-2) 0.57 Troponin I 0.112 Impressions: Abdomen/Pelvis CT 10/10/19 00:00 IMPRESSION: Prominent axillary nodes. Not definitely pathologic. Indeterminate nodes in the mediastinum. Solid right renal mass measuring over 6 cm. Atrophic kidneys. Probable Schmorl's noted L1. Well-circumscribed along the superior endplate without extension into the pedicles. Chest CT 10/10/19 00:00 IMPRESSION: Prominent axillary nodes. Not definitely pathologic. Indeterminate nodes in the mediastinum. Solid right renal mass measuring over 6 cm. Atrophic kidneys. Probable Schmorl's noted L1. Well-circumscribed along the superior endplate without extension into the pedicles. Lumbar Spine CT 10/10/19 03:49 IMPRESSION: 1. Solid-appearing mass at the upper pole of the right kidney, which has increased in size compared to the prior study. This is most compatible with malignancy. Recommend correlation with clinical history. 2. New lytic lesion within the L1 vertebral body, suggesting metastatic disease. 3. No acute fracture. Lumbar Spine MRI 10/10/19 06:22 IMPRESSION: 1. HOMOGENEOUS ROUND LESION IN THE SUPERIOR BODY OF THE L1 VERTEBRAL BODY DESCRIBED. THIS IS CONCERNING FOR A METASTATIC LESION. AN ATYPICAL SCHMORL'S NODE COULD BE ANOTHER POSSIBILITY BUT LESS LIKELY. MAY CONSIDER BONE SCAN TO EVALUATE THE FINDING IN THE L1 VERTEBRAL BODY AND TO DETERMINE IF THERE ARE ANY OTHER SKELETAL LESIONS IN THE REMAINDER OF THE BODY. 2. MILD CHRONIC DEGENERATIVE CHANGES DESCRIBED. NO SIGNIFICANT STENOSIS OR IMPINGEMENT. 3. HETEROGENOUS MASS IN THE RIGHT KIDNEY, NOT COMPLETELY IMAGED. Thoracic Spine MRI 10/10/19 06:22 IMPRESSION: NORMAL MRI THORACIC SPINE. NO EVIDENCE OF THORACIC VERTEBRAL METASTASIS. Assessment & Plan - Diagnosis (1) Lytic lesion of bone on x-ray Is this a current diagnosis for this admission?: Yes Plan: On CT of the abdomen, radiologist is calling it a Schmorl's node, asked Dr. Patino to see what he thinks. If he feels like it is a true lesion, he will plan for biopsy and osteo-cool procedure tomorrow. (2) Renal mass, right Is this a current diagnosis for this admission?: Yes Plan: This seems to be the cause of his pain, I will add IV morphine to see if that works for him. If it does, then we could switch to p.o. morphine as well. (3) Pain, neoplasm-related Is this a current diagnosis for this admission?: Yes Plan: Pain plan as above - Time Time Spent with patient: 25-34 minutes
[2019-10-11] MEDS: DOCUSATE SODIUM 100 MG CAPSULE PO SCH (09:25)
--- NOTE | 2019-10-11 11:19 | PDOC CONSULTATION ---
Consultation Consult Date: 10/11/19 Provider Consulted: Juanita CRESPO Consult reason:: ESRD for hemodialysis History of Present Illness Admission Date/PCP: 10/10/19 08:58 СВЕТЛАНА WHEELER MD History of Present Illness: OLINDA OCAMPO is a 58 year old male with a history of the end-stage disease and on hemodialysis in the background of hypertension with a history of associated atrial fibrillation, congestive heart failure, unfortunate noncompliance with diet medications and dialysis treatments with a recent history of being admitted for severe hyperkalemia and EKG changes and discharged last week was admitted with history of of progressive back and right flank pain for the last 1 week or so. Evaluations in the ER with a CT scan of his lumbar spines has revealed that he has a homogeneous round lesion in his L1 lumbar spines along with a 6 mm right kidney mass. Previous CTA scan done in 2018 showed a 4 cm mass in the right kidney. Differential diagnosis included possible metastatic bone lesion from possible cancer of the kidneys versus a Schmorl's nodule. He has gone on to have MRI of his thoracic spines which was rather unremarkable. In the process of follow-through of the MRI of the thoracic spine he has had an incomplete imaging of his upper lumbar spines and they do not report of any lesions there however. He has been admitted for further evaluations including possible bone biopsy of the lesion in his spines. Lab evaluations done shows a normal calcium and a lkaline phosphatase levels. Patient states that the pain is made worse with movements. He still makes small amounts of urine and denies any history of hematuria. He denies any history of neuro - muscular deficits of his lower extremities. Patient is being seen while undergoing dialysis. Vital signs are stable. Dialysis orders were reviewed with the treating dialysis nurse. Labs and medications were reviewed. Past Medical History Cardiac Medical History: Reports: DVT, Hyperlipidemia, Hypertension-primary Denies: Coronary Artery Disease, Myocardial Infarction Pulmonary Medical History: Reports: Asthma, Chronic Obstructive Pulmonary Disease (COPD) Denies: Bronchitis, Pneumonia Neurological Medical History: Denies: Seizures Renal/ Medical History: Reports: End Stage Renal Disease, Secondary Hyperparathyroidism Musculoskeltal Medical History: Reports: Arthritis - "DAMAGED NERVE TO RIGHT LEG" Psychiatric Medical History: Denies: Depression Hematology Medical History: Reports Anemia of Chronic Kidney Disease Past Surgical History Past Surgical History: Reports: Vascular Surgery - Right upper arm AV fistula, right and left PermCaths Social History Lives with: Family Smoking Status: Never Smoker Frequency of Alcohol Use: Occasional Hx Recreational Drug Use: No Drugs: None Hx Prescription Drug Abuse: No - Advance Directive Resuscitation Status: Full Code Family History Parental Family History Reviewed: No - Negative for ESRD Children Family History Reviewed: Yes - Has a daughter with ESRD in the background of hypertension on dialysis. Sibling(s) Family History Reviewed.: No Medication/Allergy Home Medications: Acetaminophen [Tylenol 325 mg Tablet] 650 mg PO Q4HP PRN 10/10/19 Albuterol Sulfate [Albuterol Sulfate Hfa] 2 puff IH Q4HP PRN 10/10/19 Amiodarone HCl [Cordarone 200 mg Tablet] 200 mg PO DAILY 10/10/19 Apixaban [Eliquis 2.5 mg Tablet] 2.5 mg PO Q12 10/10/19 Calcium Acetate [Phoslo 667 mg Capsule] 2,001 mg PO MEALS 10/10/19 Calcium Acetate [Phoslo 667 mg Capsule] 667 mg PO .BIDWITHSNACKS 10/10/19 Calcium Carbonate [Tums] 200 mg PO DAILYP PRN 10/10/19 Cinacalcet HCl [Sensipar 30 mg Tablet] 30 mg PO DAILY 10/10/19 Clonidine HCl [Catapres 0.1 mg Tablet] 0.1 mg PO DAILY 10/10/19 Metoprolol Tartrate [Lopressor 25 mg Tablet] 25 mg PO DAILY 10/10/19 Simvastatin 20 mg PO QHS 10/10/19 Allergies/Adverse Reactions: DRY GAMBRO DIALYZERS Allergy (Unknown, Uncoded 06/22/18 04:07) "BP drop, vomiting" PAPER TAPE Allergy (Uncoded 06/22/18 04:07) Rash Review of Systems Constitutional: PRESENT: weight loss. ABSENT: anorexia, chills, fever(s), headache(s), night sweats, weakness Cardiovascular: ABSENT: edema, orthropnea, palpitations Respiratory: ABSENT: dyspnea, hemoptysis Gastrointestinal: PRESENT: abdominal pain - Right flank.. ABSENT: coffee ground emesis, diarrhea, dysphagia, heartburn, hematemesis, hematochezia Genitourinary: ABSENT: dysuria, hematuria Musculoskeletal: ABSENT: deformity, muscle weakness, other Integumentary: ABSENT: lesions, pruritus, rash Neurological: ABSENT: abnormal movements, abnormal speech, confusion, convulsions, focal weakness, frequent falls, lack of coordination, memory loss Hematologic/Lymphatic: ABSENT: easy bruising, lymphadenopathy Physical Exam Vital Signs: Temp Pulse Resp BP Pulse Ox 100.4 F 75 18 148/72 H 100 10/11/19 07:53 10/11/19 07:53 10/11/19 07:53 10/11/19 07:53 10/11/19 07:53 Intake & Output 10/10/19 10/11/19 10/12/19 06:59 06:59 06:59 Intake Total 830 Output Total 0 Balance 830 Weight 97.4 kg General appearance: PRESENT: no acute distress Eye exam: PRESENT: EOMI, PERRLA. ABSENT: scleral icterus Ear exam: PRESENT: normal external ear exam Mouth exam: PRESENT: moist Neck exam: ABSENT: meningismus, tenderness, thyromegaly, tracheal deviation Respiratory exam: PRESENT: clear to auscultation dave. ABSENT: crackles, decreased breath sounds Cardiovascular exam: PRESENT: +S1, +S2 GI/Abdominal exam: PRESENT: normal bowel sounds, soft. ABSENT: organomegaly, tenderness Extremities exam: PRESENT: pedal edema Neurological exam: PRESENT: alert, awake, oriented to person, oriented to place Psychiatric exam: PRESENT: appropriate affect Results Laboratory Results: 10/11/19 06:41 10/11/19 06:41 10/10/19 10/11/19 10/11/19 11:50 06:41 06:41 WBC 9.4 RBC 3.87 L Hgb 11.8 L Hct 34.4 L MCV 89 MCH 30.4 MCHC 34.2 RDW 15.6 H Plt Count 151 Seg Neutrophils % 78.8 H Sodium 134.8 L 131.2 L Potassium 5.3 H 5.8 H Chloride 93 L 91 L Carbon Dioxide 23 21 L Anion Gap 19 19 BUN 52 H 66 H Creatinine 15.87 H 17.61 H Est GFR ( Amer) 4 L 3 L Glucose 99 112 H Calcium 9.0 8.6 Magnesium 2.3 10/09/19 10/09/19 23:16 23:16 Creatine Kinase 121 CK-MB (CK-2) 0.57 Troponin I 0.112 Impressions: Abdomen/Pelvis CT 10/10/19 00:00 IMPRESSION: Prominent axillary nodes. Not definitely pathologic. Indeterminate nodes in the mediastinum. Solid right renal mass measuring over 6 cm. Atrophic kidneys. Probable Schmorl's noted L1. Well-circumscribed along the superior endplate without extension into the pedicles. Chest CT 10/10/19 00:00 IMPRESSION: Prominent axillary nodes. Not definitely pathologic. Indeterminate nodes in the mediastinum. Solid right renal mass measuring over 6 cm. Atrophic kidneys. Probable Schmorl's noted L1. Well-circumscribed along the superior endplate without extension into the pedicles. Lumbar Spine CT 10/10/19 03:49 IMPRESSION: 1. Solid-appearing mass at the upper pole of the right kidney, which has increased in size compared to the prior study. This is most compatible with malignancy. Recommend correlation with clinical history. 2. New lytic lesion within the L1 vertebral body, suggesting metastatic disease. 3. No acute fracture. Lumbar Spine MRI 10/10/19 06:22 IMPRESSION: 1. HOMOGENEOUS ROUND LESION IN THE SUPERIOR BODY OF THE L1 VERTEBRAL BODY DESCRIBED. THIS IS CONCERNING FOR A METASTATIC LESION. AN ATYPICAL SCHMORL'S NODE COULD BE ANOTHER POSSIBILITY BUT LESS LIKELY. MAY CONSIDER BONE SCAN TO EVALUATE THE FINDING IN THE L1 VERTEBRAL BODY AND TO DETERMINE IF THERE ARE ANY OTHER SKELETAL LESIONS IN THE REMAINDER OF THE BODY. 2. MILD CHRONIC DEGENERATIVE CHANGES DESCRIBED. NO SIGNIFICANT STENOSIS OR IMPINGEMENT. 3. HETEROGENOUS MASS IN THE RIGHT KIDNEY, NOT COMPLETELY IMAGED. Thoracic Spine MRI 10/10/19 06:22 IMPRESSION: NORMAL MRI THORACIC SPINE. NO EVIDENCE OF THORACIC VERTEBRAL METASTASIS. Assessment & Plan - Diagnosis (1) Lower back pain Qualifiers: Chronicity: acute Back pain laterality: bilateral Sciatica presence: without sciatica Qualified Code(s): M54.5 - Low back pain Is this a current diagnosis for this admission?: Yes Plan: He has a homogeneous lesion in his L1 vertebra. Differentials includes possible metastatic bone lesion from right kidney cancer versus schmorls nodule. Discussed with Dr. Bermeo/[facility] oncologist. He is consulting with Dr. Juanito Patino for further evaluations of the spinal lesion to see if it can be biopsied over here to establish a metastatic lesion and then further evaluations and treatments thereafter. If on the other hand if this is negative then he would need to be seen by urologist elsewhere for further evaluations and management including possible renal biopsy. (2) Renal mass, right Is this a current diagnosis for this admission?: Yes Plan: Possible renal cell carcinoma right kidney. Work-up being done to establish diagnosis. (3) End-stage renal disease on hemodialysis Is this a current diagnosis for this admission?: Yes Plan: Patient currently undergoing dialysis. Vital signs are stable. Dialysis being supervised to ensure safe and smooth procedure. He has a left IJ catheter with no evidences of an exit site infection. Nonfunctioning right upper arm AV fistula and is being worked up at [facility] but patient unable to be make appointments and has missed work-up. Plan to remove 2-3 L of fluid as tolerated. Dialysis orders were reviewed with the treating dialysis nurse. (4) Hyperkalemia Is this a current diagnosis for this admission?: Yes Plan: Should respond to dialysis. Monitor. (5) Hypertension Plan: Stable. Monitor (6) Paroxysmal atrial flutter Plan: On amiodarone. Anticoagulation on hold for now. (7) Bone lesion Plan: Being worked up. Differentials includes metastatic lesion from possible kidney cancer versus schmorls nodule.
--- NOTE | 2019-10-11 18:11 | Progress Note ---
Provider Note Provider Note: CARDIOLOGY PROGRESS NOTE by Dr. Amanda Dumont on 10/11/2019. SUBJECTIVE: The patient has severe right flank pain especially when he moves. He also has lumbar spine pain. He denies any chest pain discomfort. There is no recurrence of atrial fibrillation. On examination today the patient seems to have a significant mitral regurgitation murmur. The patient denies any PND orthopnea but due to his flank pain is only able to sit up in the chair. There is no TIA CVA symptoms. His Eliquis has been held for in anticipation of the L1 lesion biopsy. This is scheduled for tomorrow. PHYSICAL EXAMINATION: The patient is mild to moderately obese. In some distress due to pain in the right flank. Selected Entries 10/11/19 12:58 Temperature 98.2 F Temperature Axillary Source Pulse Rate 111 H Respiratory 17 Rate Blood Pressure 137/84 H Blood Pressure 101 Mean BP Location Right Arm BP Position Supine O2 Sat by Pulse 100 Oximetry Oxygen Delivery Room Air Method HEAD: Is atraumatic and normocephalic. EYES: Pupils are equal round regular reactive to light accommodation. External ocular movements are normal. There is no conjunctival pallor. There is no scleral icterus. EARS: Tympanic membranes are intact. External auditory canals are clear. NOSE: There is no deviated nasal septum. There is no inflammation of the nasal mucous membrane. MOUTH: Mucous membranes of mouth are moist. Tongue is moist. There is no ulcers in the mouth. There is no bleeding from the gums. THROAT: There is no redness of the oropharynx. There is no exudates. SKIN: There is no skin rashes. There is no petechia or ecchymosis. There is no skin lesions. NECK: I s supple. There is no JVD. Carotids equal there is no bruit. There is no lymphadenopathy. Trachea central. LUNGS: Lungs are clear to auscultation percussion, without any rhonchi rales or wheezing. THERE IS NO CHEST WALL TENDERNESS. Heart: S1, S2 heard normally. There is no S3 gallop. There is no S4 gallop. There is systolic murmur left sternal border and apex. Today there seems to be murmur of mitral regurgitation. This seems to be significant. We will check an echo to see if indeed the patient has significant mitral regurg. There is no rub. ABDOMEN: Soft. Nontender. There is no hepatosplenomegaly. All sounds are well heard. There is no tender areas of masses. EXTREMITIES: Femorals are diminished. There is no femoral bruits. Leg pulses are diminished. There is no pedal edema. There is diffuse swelling of the right upper extremity. There is no DVT or cellulitis. There is no cyanosis or clubbing. There is no calf tenderness. BUDGET ANALYST: The patient is conscious awake alert oriented x3 with no focal deficits. PSYCHIATRIC: The patient judgment are intact his affect is normal. Labs- All tests 24 hr 10/09/19 10/11/19 10/11/19 23:18 06:41 06:41 WBC 9.4 RBC 3.87 L Hgb 11.8 L Hct 34.4 L MCV 89 MCH 30.4 MCHC 34.2 RDW 15.6 H Plt Count 151 Lymph % (Auto) 7.5 L [place] % (Auto) 12.5 Eos % (Auto) 0.5 Baso % (Auto) 0.7 Absolute Neuts (auto) 7.4 Absolute Lymphs (auto) 0.7 Absolute Monos (auto) 1.2 Absolute Eos (auto) 0.1 Absolute Basos (auto) 0.1 Seg Neutrophils % 78.8 H Sodium 131.2 L Potassium 5.8 H Chloride 91 L Carbon Dioxide 21 L Anion Gap 19 BUN 66 H Creatinine 17.61 H Est GFR ( Amer) 3 L Est GFR (MDRD) Non-Af 3 L Glucose 112 H POC Glucose 88 Calcium 8.6 Magnesium 2.3 10/11/19 21:34 WBC RBC Hgb Hct MCV MCH MCHC RDW Plt Count Lymph % (Auto) [place] % (Auto) Eos % (Auto) Baso % (Auto) Absolute Neuts (auto) Absolute Lymphs (auto) Absolute Monos (auto) Absolute Eos (auto) Absolute Basos (auto) Seg Neutrophils % Sodium Potassium Chloride Carbon Dioxide Anion Gap BUN Creatinine Est GFR ( Amer) Est GFR (MDRD) Non-Af Glucose POC Glucose 106 Calcium Magnesium Abdomen/Pelvis CT 10/10/19 00:00 IMPRESSION: Prominent axillary nodes. Not definitely pathologic. Indeterminate nodes in the mediastinum. Solid right renal mass measuring over 6 cm. Atrophic kidneys. Probable Schmorl's noted L1. Well-circumscribed along the superior endplate without extension into the pedicles. Chest CT 10/10/19 00:00 IMPRESSION: Prominent axillary nodes. Not definitely pathologic. Indeterminate nodes in the mediastinum. Solid right renal mass measuring over 6 cm. Atrophic kidneys. Probable Schmorl's noted L1. Well-circumscribed along the superior endplate without extension into the pedicles. Lumbar Spine CT 10/10/19 03:49 IMPRESSION: 1. Solid-appearing mass at the upper pole of the right kidney, which has increased in size compared to the prior study. This is most compatible with malignancy. Recommend correlation with clinical history. 2. New lytic lesion within the L1 vertebral body, suggesting metastatic disease. 3. No acute fracture. Lumbar Spine MRI 10/10/19 06:22 IMPRESSION: 1. HOMOGENEOUS ROUND LESION IN THE SUPERIOR BODY OF THE L1 VERTEBRAL BODY DESCRIBED. THIS IS CONCERNING FOR A METASTATIC LESION. AN ATYPICAL SCHMORL'S NODE COULD BE ANOTHER POSSIBILITY BUT LESS LIKELY. MAY CONSIDER BONE SCAN TO EVALUATE THE FINDING IN THE L1 VERTEBRAL BODY AND TO DETERMINE IF THERE ARE ANY OTHER SKELETAL LESIONS IN THE REMAINDER OF THE BODY. 2. MILD CHRONIC DEGENERATIVE CHANGES DESCRIBED. NO SIGNIFICANT STENOSIS OR IMPINGEMENT. 3. HETEROGENOUS MASS IN THE RIGHT KIDNEY, NOT COMPLETELY IMAGED. Thoracic Spine MRI 10/10/19 06:22 IMPRESSION: NORMAL MRI THORACIC SPINE. NO EVIDENCE OF THORACIC VERTEBRAL METASTASIS. IMPRESSION/RECOMMENDATION: 1. 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 Patient for dialysis of the right leg lesion. Hence the patient's Eliquis has been discontinued. 2. Congestive heart failure secondary to volume overload during: Noncompliance with diet medication and renal dialysis. 3. Hyperkalemia in a patient with end-stage renal disease. The patient is getting dialyzed. 4. Paroxysmal atrial flutter. At present in sinus rhythm. Continue current medications. Note the patient is on amiodarone. The patient's liver function tests and thyroid function tests are normal. Later would get a full PFTs with DLCO, since the patient is on amiodarone. The patient has no prior history of TIA or CVA. Hence no need for bridging the patient with Lovenox when the patient's Eliquis has been stopped. 5. Hypertension: Well-controlled continue current medications. 6. END STAGE RENAL DISEASE: On hemodialysis. Patient scheduled for hemodialysis tomorrow. Would recommend discontinue the patient on current medications after dialysis. 7. History of hyperlipidemia. Continue statins 8. The patient's cardiac status is very stable. If the patient needs surgical removal of the renal mass the patient will be an acceptable cardiac risk for this procedure. 9. Murmur of mitral regurgitation:? Severity. Seems to be significant clinically. Will check an echo. Medications reviewed. Medical regimen and management plan discussed with attending physician. Medical decision making is a moderate complexity. 40 minutes spent as patient with more than 50% of time spent direct patient care. Will follow. Check echocardiogram ordered for tomorrow morning.
[2019-10-11] MEDS: MORPHINE SULFATE 10 MG/ML INJ IV PRN (19:40)
[2019-10-11] MEDS: ACETAMINOPHEN 325 MG TABLET PO PRN (19:41)
[2019-10-11] MEDS: DIPHENHYDRAMINE HCL 25 MG CAPSULE PO PRN (19:41)
--- NOTE | 2019-10-11 21:51 | PDOC PROGRESS REPORT ---
Subjective Progress Note for:: 10/11/19 Subjective:: Patient apparently was just discharged when he presented with hyperkalemia with a background of end-stage renal disease on hemodialysis, he returned to the emergency room for evaluation of right flank pain CAT scan was done found to have a 6 cm right kidney mass most likely malignant lesion, he had a CAT scan back February 02, 2018 in the emergency room he was found to have a renal mass at that time was 2 cm lesion so clearly this is cancer. Patient is extremely nonc ompliant he does not follow in the office regularly the last office visit was 3 years ago in 2018 unfortunately had a CAT scan done in the ER never followed up now is probably malignant lesion probably spread to the lumbar spine scheduled for a biopsy tomorrow Reason For Visit: RENAL MASS/ESRD/BACK PAIN Physical Exam Vital Signs: Temp Pulse Resp BP Pulse Ox 98.2 F 111 H 17 137/84 H 100 10/11/19 12:58 10/11/19 12:58 10/11/19 12:58 10/11/19 12:58 10/11/19 12:58 Intake & Output 10/10/19 10/11/19 10/12/19 06:59 06:59 06:59 Intake Total 830 860 Output Total 0 0 Balance 830 860 Weight 97.4 kg General appearance: PRESENT: no acute distress Eye exam: PRESENT: PERRLA Respiratory exam: PRESENT: clear to auscultation dave Cardiovascular exam: PRESENT: +S1, +S2 GI/Abdominal exam: PRESENT: soft Neurological exam: PRESENT: alert Results Laboratory Results: 10/11/19 06:41 10/11/19 06:41 10/11/19 10/11/19 06:41 06:41 WBC 9.4 RBC 3.87 L Hgb 11.8 L Hct 34.4 L MCV 89 MCH 30.4 MCHC 34.2 RDW 15.6 H Plt Count 151 Seg Neutrophils % 78.8 H Sodium 131.2 L Potassium 5.8 H Chloride 91 L Carbon Dioxide 21 L Anion Gap 19 BUN 66 H Creatinine 17.61 H Est GFR ( Amer) 3 L Glucose 112 H Calcium 8.6 Magnesium 2.3 10/09/19 10/09/19 23:16 23:16 Creatine Kinase 121 CK-MB (CK-2) 0.57 Troponin I 0.112 Impressions: Abdomen/Pelvis CT 10/10/19 00:00 IMPRESSION: Prominent axillary nodes. Not definitely pathologic. Indeterminate nodes in the mediastinum. Solid right renal mass measuring over 6 cm. Atrophic kidneys. Probable Schmorl's noted L1. Well-circumscribed along the superior endplate without extension into the pedicles. Chest CT 10/10/19 00:00 IMPRESSION: Prominent axillary nodes. Not definitely pathologic. Indeterminate nodes in the mediastinum. Solid right renal mass measuring over 6 cm. Atrophic kidneys. Probable Schmorl's noted L1. Well-circumscribed along the superior endplate without extension into the pedicles. Lumbar Spine CT 10/10/19 03:49 IMPRESSION: 1. Solid-appearing mass at the upper pole of the right kidney, which has increased in size compared to the prior study. This is most compatible with malignancy. Recommend correlation with clinical history. 2. New lytic lesion within the L1 vertebral body, suggesting metastatic disease. 3. No acute fracture. Lumbar Spine MRI 10/10/19 06:22 IMPRESSION: 1. HOMOGENEOUS ROUND LESION IN THE SUPERIOR BODY OF THE L1 VERTEBRAL BODY DESCRIBED. THIS IS CONCERNING FOR A METASTATIC LESION. AN ATYPICAL SCHMORL'S NODE COULD BE ANOTHER POSSIBILITY BUT LESS LIKELY. MAY CONSIDER BONE SCAN TO EVALUATE THE FINDING IN THE L1 VERTEBRAL BODY AND TO DETERMINE IF THERE ARE ANY OTHER SKELETAL LESIONS IN THE REMAINDER OF THE BODY. 2. MILD CHRONIC DEGENERATIVE CHANGES DESCRIBED. NO SIGNIFICANT STENOSIS OR IMPINGEMENT. 3. HETEROGENOUS MASS IN THE RIGHT KIDNEY, NOT COMPLETELY IMAGED. Thoracic Spine MRI 10/10/19 06:22 IMPRESSION: NORMAL MRI THORACIC SPINE. NO EVIDENCE OF THORACIC VERTEBRAL METASTASIS. 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 Is this a current diagnosis for this admission?: Yes Plan: This is most likely renal cell carcinoma, oncology on board (2) End stage renal disease on dialysis Is this a current diagnosis for this admission?: Yes Plan: Per nephrology (3) Lytic lesion of bone on x-ray Is this a current diagnosis for this admission?: Yes Plan: Scheduled for biopsy tomorrow (4) Atrial flutter Qualifiers: Atrial flutter type: typical Qualified Code(s): I48.3 - Typical atrial flutter Is this a current diagnosis for this admission?: Yes - Time Time Spent with patient: 15-24 minutes
[2019-10-12] MEDS: OXYCODONE HCL IR 5 MG TABLET PO PRN ×4 (00:23→20:08)
[2019-10-12] MEDS: FAMOTIDINE 20 MG TABLET PO SCH ×2 (00:23→21:30)
[2019-10-12] MEDS: MORPHINE SULFATE 10 MG/ML INJ IV PRN ×2 (02:04→21:29)
--- NOTE | 2019-10-12 08:33 | PDOC PROGRESS REPORT ---
Subjective Progress Note for:: 10/12/19 Subjective:: Yesterday had a long discussions with multiple providers including Dr. Patino of pain management, Dr. Benson of nephrology, ultimately we decided on pursuing the biopsy of the L1 area along with osteo-cool procedure. Dr. Patino felt the imaging is consistent with a metastatic lesion more than a benign finding. Discussed with Dr. Benson, originally was suggesting transfer but I noted that we originally will need tissue diagnosis, if there is concern of a metastatic deposit. If patient does have stage IV disease, we generally would not pursue cytoreductive nephrectomy in the setting of available immunotherapies. Plus given his comorbidities, he would not be a great candidate for upfront nephrectomy regardless. If the biopsies are nondiagnostic of the spine, then I will send him to [facility] urology for a second opinion. Reason For Visit: RENAL MASS/ESRD/BACK PAIN Physical Exam Vital Signs: Temp Pulse Resp BP Pulse Ox 98.3 F 97 18 107/80 90 L 10/12/19 04:52 10/12/19 07:00 10/12/19 04:52 10/12/19 04:52 10/12/19 04:52 Intake & Output 10/11/19 10/12/19 10/13/19 06:59 06:59 06:59 Intake Total 830 860 Output Total 0 1000 Balance 830 -140 General appearance: PRESENT: no acute distress, well-developed, well-nourished Head exam: PRESENT: atraumatic, normocephalic Eye exam: PRESENT: conjunctiva pink, EOMI, PERRLA. ABSENT: scleral icterus Ear exam: PRESENT: normal external ear exam Mouth exam: PRESENT: moist, tongue midline Neck exam: ABSENT: carotid bruit, JVD, lymphadenopathy, thyromegaly Respiratory exam: PRESENT: clear to auscultation dave. ABSENT: rales, rhonchi, wheezes Cardiovascular exam: PRESENT: RRR. ABSENT: diastolic murmur, rubs, systolic murmur Pulses: PRESENT: normal dorsalis pedis pul Vascular exam: PRESENT: normal capillary refill GI/Abdominal exam: PRESENT: normal bowel sounds, soft. ABSENT: distended, guarding, mass, organolmegaly, rebound, tenderness Rectal exam: PRESENT: deferred Extremities exam: PRESENT: full ROM. ABSENT: calf tenderness, clubbing, pedal edema Neurological exam: PRESENT: alert, awake, oriented to person, oriented to place, oriented to time, oriented to situation, CN II-XII grossly intact. ABSENT: motor sensory deficit Psychiatric exam: PRESENT: appropriate affect, normal mood. ABSENT: homicidal ideation, suicidal ideation Skin exam: PRESENT: dry, intact, warm. ABSENT: cyanosis, rash Results Laboratory Results: 10/12/19 06:36 10/11/19 06:41 10/12/19 06:36 WBC Cancelled RBC Cancelled Hgb Cancelled Hct Cancelled MCV Cancelled MCH Cancelled MCHC Cancelled RDW Cancelled Plt Count Cancelled Seg Neutrophils % Cancelled 10/09/19 10/09/19 23:16 23:16 Creatine Kinase 121 CK-MB (CK-2) 0.57 Troponin I 0.112 Impressions: Abdomen/Pelvis CT 10/10/19 00:00 IMPRESSION: Prominent axillary nodes. Not definitely pathologic. Indeterminate nodes in the mediastinum. Solid right renal mass measuring over 6 cm. Atrophic kidneys. Probable Schmorl's noted L1. Well-circumscribed along the superior endplate without extension into the pedicles. Chest CT 10/10/19 00:00 IMPRESSION: Prominent axillary nodes. Not definitely pathologic. Indeterminate nodes in the mediastinum. Solid right renal mass measuring over 6 cm. Atrophic kidneys. Probable Schmorl's noted L1. Well-circumscribed along the superior endplate without extension into the pedicles. Lumbar Spine CT 10/10/19 03:49 IMPRESSION: 1. Solid-appearing mass at the upper pole of the right kidney, which has increased in size compared to the prior study. This is most compatible with malignancy. Recommend correlation with clinical history. 2. New lytic lesion within the L1 vertebral body, suggesting metastatic disease. 3. No acute fracture. Lumbar Spine MRI 10/10/19 06:22 IMPRESSION: 1. HOMOGENEOUS ROUND LESION IN THE SUPERIOR BODY OF THE L1 VERTEBRAL BODY DESCRIBED. THIS IS CONCERNING FOR A METASTATIC LESION. AN ATYPICAL SCHMORL'S NODE COULD BE ANOTHER POSSIBILITY BUT LESS LIKELY. MAY CONSIDER BONE SCAN TO EVALUATE THE FINDING IN THE L1 VERTEBRAL BODY AND TO DETERMINE IF THERE ARE ANY OTHER SKELETAL LESIONS IN THE REMAINDER OF THE BODY. 2. MILD CHRONIC DEGENERATIVE CHANGES DESCRIBED. NO SIGNIFICANT STENOSIS OR IMPINGEMENT. 3. HETEROGENOUS MASS IN THE RIGHT KIDNEY, NOT COMPLETELY IMAGED. Thoracic Spine MRI 10/10/19 06:22 IMPRESSION: NORMAL MRI THORACIC SPINE. NO EVIDENCE OF THORACIC VERTEBRAL METASTASIS. Assessment & Plan - Diagnosis (1) Lytic lesion of bone on x-ray Is this a current diagnosis for this admission?: Yes Plan: Plan for procedure today (2) Renal mass, right Is this a current diagnosis for this admission?: Yes Plan: Procedure as above planned, plan as above. (3) Pain, neoplasm-related Is this a current diagnosis for this admission?: Yes Plan: Somewhat better controlled. Ultimately will need some sort of long-acting pain medication as well. - Time Time Spent with patient: 35 or more minutes
[2019-10-12 09:00] LABS: HEMATOCRIT 35.5 % (37.9-51.0); MEAN CORPUSCULAR HEMOGLOBIN 30.3 pg (27.0-33.4); MEAN CORPUSCULAR HGB CONC 33.9 g/dL (32.0-36.0); MEAN CORPUSCULAR VOLUME 89 fl (80-97); PLATELET COUNT 144 10^3/uL (150-450); RED BLOOD COUNT 3.98 10^6/uL (4.35-5.55); RED CELL DISTRIBUTION WIDTH 15.7 % (11.5-14.0); WHITE BLOOD COUNT 12.9 10^3/uL (4.0-10.5)
[2019-10-12] MEDS: DOCUSATE SODIUM 100 MG CAPSULE PO SCH (09:09)
[2019-10-12 09:18] LABS: ALBUMIN 3.9 g/dL (3.5-5.0); ALKALINE PHOSPHATASE 58 U/L (38-126); ANION GAP 16 (5-19); ASPARTATE AMINO TRANSFERASE 20 U/L (17-59); BILIRUBIN,DIRECT 0.5 mg/dL (0.0-0.4); BILIRUBIN,TOTAL 0.8 mg/dL (0.2-1.3); BLOOD UREA NITROGEN 53 mg/dL (7-20); CALCIUM 8.9 mg/dL (8.4-10.2); CARBON DIOXIDE 25 mmol/L (22-30); CHLORIDE 92 mmol/L (98-107); GLUCOSE 88 mg/dL (75-110); TOTAL PROTEIN 7.7 g/dL (6.3-8.2)
[2019-10-12 09:27] LABS: POTASSIUM 6.2 mmol/L (3.6-5.0)
[2019-10-12 09:30] LABS: ABSOLUTE MONOCYTES # (MANUAL) 1.3 10^3/uL (0.1-1.4); BASOPHILS % (MANUAL) 0 % (0-2); EOSINOPHILS % (MANUAL) 0 % (0-6); LYMPHOCYTES % (MANUAL) 8 % (13-45); MONOCYTES % (MANUAL) 10 % (3-13); SEGMENTED NEUTROPHILS % (MAN) 82 % (42-78); TOTAL CELLS COUNTED 100
[2019-10-12 09:31] LABS: ANISOCYTOSIS SLIGHT; OVALOCYTES SLIGHT; PLATELET COMMENT DECREASED; POLYCHROMASIA SLIGHT
[2019-10-12] MEDS ORDERED: SODIUM POLYSTYRENE SULFONATE 15 GM/60 ML PO ONE (14:45)
--- NOTE | 2019-10-12 16:34 | XCELERA REPORT ---
[address] [address] Transthoracic Echocardiogram Report Name: OLINDA OCAMPO Age: 58 yrs Gender: Male : 1960 Patient Status: Inpatient Patient Location: [address] [place], [place] [address] Study Date: 10/12/2019 01:30 PM Height: 67 in Weight: 214 lb BSA: 2.1 m2 Procedure: A two-dimensional transthoracic echocardiogram with color flow and Doppler was performed. The study was technically difficult with many images being suboptimal in quality. Reason For Study: MR (I34.0) History: MR (I34.0). Ordering Physician: AMANDA BOYCE Performed By: Mague Davis Interpretation Summary The left ventricle is normal in size. LV EF is 60% Left ventricular systolic function is normal. Doppler measurements suggest impaired left ventricular relaxation, which is associated with grade I/IV or mild diastolic dysfunction The left ventricular wall motion is normal. There is no thrombus. There is no ventricular septal defect visualized. The right ventricle is normal in size and function. The right atrium is normal. The left atrial size is normal. The interatrial septum is intact with no evidence for an atrial septal defect. There is no Doppler evidence for an interatrial shunt There is mild mitral annular calcification. There is no evidence of mitral valve prolapse. There is no vegetation seen on the mitral valve. There is no mitral valve stenosis. There is a mild amount of mitral regurgitation There is no aortic valvular vegetation. There is moderate aortic stenosis There is a peak gradient of 49.3 MM OF hG AND MEAN PRESSURE GRADIENT OF 28.3 mm of Hg. There is a moderate amount of aortic regurgitation There is no tricuspid stenosis. There is a mild amount of tricuspid regurgitation There is moderate pulmonary hypertension by echo RVSP IS 55 TO 60 MM OF hG , WITH RA MEAN OF 5 TO 10. There is no pulmonic valvular stenosis. There is no pulmonic valvular regurgitation. The aortic root is normal size. The inferior vena cava appeared normal and decreased > 50% with respiration (RAP 5-10 mmHg) There is no pericardial effusion. MMode/2D Measurements & Calculations RVDd: 4.0 cm LVIDd: 4.8 cm FS: 28.8 % Ao root diam: 3.1 cm IVSd: 1.2 cm LVIDs: 3.4 cm EDV(Teich): 107.0 ml Ao root area: 7.6 cm2 LVPWd: 1.2 cm ESV(Teich): 47.8 ml LA dimension: 3.9 cm EF(Teich): 55.3 % LVOT diam: 2.2 cm LVOT area: 3.7 cm2 Doppler Measurements & Calculations MV E max calin: MV P1/2t max calin: Ao V2 max: AI max calin: 87.6 cm/sec 97.9 cm/sec 351.1 cm/sec 426.0 cm/sec MV A max calin: MV P1/2t: 80.3 msec Ao max PG: AI max P.1 cm/sec MVA(P1/2t): 2.7 cm2 49.3 mmHg 72.6 mmHg MV E/A: 0.74 MV dec slope: Ao V2 mean: AI dec slope: 243.2 cm/sec 167.1 cm/sec2 357.2 cm/sec2 Ao mean PG: AI P1/2t: MV dec time: 28.3 mmHg 746.5 msec 0.26 sec Ao V2 VTI: 48.8 cm RASHEED(I,D): 1.5 cm2 RASHEED(V,D): 1.6 cm2 LV V1 max PG: SV(LVOT): 71.0 ml PA V2 max: TR max calin: 9.7 mmHg 143.8 cm/sec 353.0 cm/sec LV V1 mean PG: PA max PG: TR max P.2 mmHg 8.3 mmHg 49.8 mmHg LV V1 max: 155.1 cm/sec LV V1 mean: 91.9 cm/sec LV V1 VTI: 19.1 cm AV P1/2t-pr_phl: MV P1/2t-pr_phl: 746.5 msec 80.3 msec Left Ventricle The left ventricle is normal in size. There is mild concentric left ventricular hypertrophy. LV EF is 60%. Left ventricular systolic function is normal. Doppler measurements suggest impaired left ventricular relaxation, which is associated with grade I/IV or mild diastolic dysfunction. The left ventricular wall motion is normal. There is no thrombus. There is no ventricular septal defect visualized. Right Ventricle The right ventricle is normal in size and function. The right ventricle is not well visualized secondary to technical limitations. Atria The right atrium is normal. The left atrial size is normal. The interatrial septum is intact with no evidence for an atrial septal defect. There is no Doppler evidence for an interatrial shunt. Mitral Valve There is mild mitral annular calcification. There is no evidence of mitral valve prolapse. There is no vegetation seen on the mitral valve. There is no mitral valve stenosis. There is a mild amount of mitral regurgitation. Aortic Valve There is no aortic valvular vegetation. There is moderate aortic stenosis. There is a peak gradient of 49.3 MM OF hG AND MEAN PRESSURE GRADIENT OF 28.3 mm of Hg. There is a moderate amount of aortic regurgitation. Tricuspid Valve There is no tricuspid stenosis. There is a mild amount of tricuspid regurgitation. Doppler findings do not suggest pulmonary hypertension. There is moderate pulmonary hypertension by echo. RVSP IS 55 TO 60 MM OF hG , WITH RA MEAN OF 5 TO 10. Pulmonic Valve There is no pulmonic valvular stenosis. There is no pulmonic valvular regurgitation. Great Vessels The aortic root is normal size. The inferior vena cava appeared normal and decreased > 50% with respiration (RAP 5-10 mmHg). Effusions There is no pericardial effusion. : AMANDA BOYCE Lakshmi
--- NOTE | 2019-10-12 16:46 | Progress Note ---
Provider Note Provider Note: CARDIOLOGY PROGRESS NOTE by Dr. Amanda Dumont on 10/12/2019. SUBJECTIVE: The patient continues to have right flank pain. He has no chest pain discomfort. There is no shortness of breath. Although he is not able to lie flat in the bed due to his right flank pain and back pain he has no true orthopnea. There is no PND. His biopsy has been postponed to Friday since the patient's potassium has been high. The patient's echocardiogram shows normal ventricular ejection fraction with diastolic dysfunction which is mild, and there is mild mitral regurgitation. Patient also has moderate pulmonary hypertension. There is no ventricle arrhythmia seen. There is no recurrence of atrial fibrillation or flutter. There is no TIA CVA symptoms. The patient is off Eliquis for his biopsy. PHYSICAL EXAMINATION: The patient is mildly obese. In some distress due to right flank pain. Selected Entries 10/12/19 16:05 Temperature 99.7 F Temperature Oral Source Pulse Rate 74 Respiratory 20 Rate Blood Pressure 135/73 H Blood Pressure 93 Mean BP Location Left Arm BP Position Sitting O2 Sat by Pulse 100 Oximetry Oxygen Flow 1.50 Rate Oxygen Delivery Nasal Cannula Method HEAD: Is atraumatic and normocephalic. EYES: Pupils are equal round regular reactive to light accommodation. External ocular movements are normal. There is no conjunctival pallor. There is no scleral icterus. EARS: Tympanic membranes are intact. External auditory canals are clear. NOSE: There is no deviated nasal septum. There is no inflammation of the nasal mucous membrane. MOUTH: Mucous membranes of mouth are moist. Tongue is moist. There is no ulcers in the mouth. There is no bleeding from the gums. THROAT: There is no redness of the oropharynx. There is no exudates. SKIN: There is no skin rashes. There is no petechia or ecchymosis. There is no skin lesions. NECK: Is supple. There is no JVD. Carotids equal there is no bruit. There is no lymphadenopathy. Trachea central. LUNGS: Lungs are clear to auscultation percussion, without any rhonchi rales or wheezing. THERE IS NO CHEST WALL TENDERNESS. Heart: S1, S2 heard normally. There is no S3 gallop. There is no S4 gallop. There is systolic murmur left sternal border and apex. Murmur of mitral regurgitation heard. . There is no rub. ABDOMEN: Soft. Nontender. There is no hepatosplenomegaly. All sounds are well heard. There is no tender areas of masses. EXTREMITIES: Femorals are diminished. There is no femoral bruits. Leg pulses are diminished. There is no pedal edema. There is diffuse swelling of the right upper extremity. There is no DVT or cellulitis. There is no cyanosis or clubbing. There is no calf tenderness. INSTRUMENTATION TECHNOLOGIST: The patient is conscious awake alert oriented x3 with no focal deficits. PSYCHIATRIC: The patient judgment are intact his affect is normal. ECHOCARDIOGRAM: Shows normal ventricular chamber size. Mild left ventricular hypertrophy. There is no regional wall motion abnormality. LV ejection fraction is normal at 60%. There is mild left ventricular diastolic dysfunction. There is no aortic stenosis. There is mild mitral regurgitation. There is moderate pulmonary hypertension right with a systolic pressure is 55 to 60 mmHg. This has been discussed with the patient. Labs- All tests 24 hr 10/11/19 10/12/19 10/12/19 21:34 06:36 08:50 WBC Cancelled 12.9 H RBC Cancelled 3.98 L Hgb Cancelled 12.0 L Hct Cancelled 35.5 L MCV Cancelled 89 MCH Cancelled 30.3 MCHC Cancelled 33.9 RDW Cancelled 15.7 H Plt Count Cancelled 144 L Lymph % (Auto) Cancelled Not Reportable [place] % (Auto) Cancelled Not Reportable Eos % (Auto) Cancelled Not Reportable Baso % (Auto) Cancelled Not Reportable Absolute Neuts (auto) Cancelled Not Reportable Absolute Lymphs (auto) Cancelled Not Reportable Absolute Monos (auto) Cancelled Not Reportable Absolute Eos (auto) Cancelled Not Reportable Absolute Basos (auto) Cancelled Not Reportable Total Counted 100 Seg Neutrophils % Cancelled Not Reportable Seg Neuts % (Manual) 82 H Lymphocytes % (Manual) 8 L Monocytes % (Manual) 10 Eosinophils % (Manual) 0 Basophils % (Manual) 0 Abs Neuts (Manual) 10.6 H Abs Lymphs (Manual) 1.0 Abs Monocytes (Manual) 1.3 Absolute Eos (Manual) 0.0 Abs Basophils (Manual) 0.0 Platelet Estimate Cancelled Platelet Comment DECREASED Polychromasia SLIGHT Anisocytosis SLIGHT Ovalocytes SLIGHT Sodium Potassium Chloride Carbon Dioxide Anion Gap BUN Creatinine Est GFR ( Amer) Est GFR (MDRD) Non-Af Glucose POC Glucose 106 Calcium Total Bilirubin Direct Bilirubin Neonat Total Bilirubin Neonat Direct Bilirubin Neonat Indirect Bili AST ALT Alkaline Phosphatase Total Protein Albumin Slides for Path Review Cancelled 10/12/19 08:50 WBC RBC Hgb Hct MCV MCH MCHC RDW Plt Count Lymph % (Auto) [place] % (Auto) Eos % (Auto) Baso % (Auto) Absolute Neuts (auto) Absolute Lymphs (auto) Absolute Monos (auto) Absolute Eos (auto) Absolute Basos (auto) Total Counted Seg Neutrophils % Seg Neuts % (Manual) Lymphocytes % (Manual) Monocytes % (Manual) Eosinophils % (Manual) Basophils % (Manual) Abs Neuts (Manual) Abs Lymphs (Manual) Abs Monocytes (Manual) Absolute Eos (Manual) Abs Basophils (Manual) Platelet Estimate Platelet Comment Polychromasia Anisocytosis Ovalocytes Sodium 132.6 L Potassium 6.2 H* Chloride 92 L Carbon Dioxide 25 Anion Gap 16 BUN 53 H Creatinine 13.70 H Est GFR ( Amer) 4 L Est GFR (MDRD) Non-Af 4 L Glucose 88 POC Glucose Calcium 8.9 Total Bilirubin 0.8 Direct Bilirubin 0.5 H Neonat Total Bilirubin Not Reportable Neonat Direct Bilirubin Not Reportable Neonat Indirect Bili Not Reportable AST 20 ALT 9 Alkaline Phosphatase 58 Total Protein 7.7 Albumin 3.9 Slides for Path Review Abdomen/Pelvis CT 10/10/19 00:00 IMPRESSION: Prominent axillary nodes. Not definitely pathologic. Indeterminate nodes in the mediastinum. Solid right renal mass measuring over 6 cm. Atrophic kidneys. Probable Schmorl's noted L1. Well-circumscribed along the superior endplate without extension into the pedicles. Chest CT 10/10/19 00:00 IMPRESSION: Prominent axillary nodes. Not definitely pathologic. Indeterminate nodes in the mediastinum. Solid right renal mass measuring over 6 cm. Atrophic kidneys. Probable Schmorl's noted L1. Well-circumscribed along the superior endplate without extension into the pedicles. Lumbar Spine CT 10/10/19 03:49 IMPRESSION: 1. Solid-appearing mass at the upper pole of the right kidney, which has increased in size compared to the prior study. This is most compatible with malignancy. Recommend correlation with clinical history. 2. New lytic lesion within the L1 vertebral body, suggesting metastatic disease. 3. No acute fracture. Lumbar Spine MRI 10/10/19 06:22 IMPRESSION: 1. HOMOGENEOUS ROUND LESION IN THE SUPERIOR BODY OF THE L1 VERTEBRAL BODY DESCRIBED. THIS IS CONCERNING FOR A METASTATIC LESION. AN ATYPICAL SCHMORL'S NODE COULD BE ANOTHER POSSIBILITY BUT LESS LIKELY. MAY CONSIDER BONE SCAN TO EVALUATE THE FINDING IN THE L1 VERTEBRAL BODY AND TO DETERMINE IF THERE ARE ANY OTHER SKELETAL LESIONS IN THE REMAINDER OF THE BODY. 2. MILD CHRONIC DEGENERATIVE CHANGES DESCRIBED. NO SIGNIFICANT STENOSIS OR IMPINGEMENT. 3. HETEROGENOUS MASS IN THE RIGHT KIDNEY, NOT COMPLETELY IMAGED. Thoracic Spine MRI 10/10/19 06:22 IMPRESSION: NORMAL MRI THORACIC SPINE. NO EVIDENCE OF THORACIC VERTEBRAL METASTASIS. IMPRESSION/RECOMMENDATION: 1. 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 Patient for dialysis of the right leg lesion. Hence the patient's Eliquis has been discontinued. 2. Congestive heart failure secondary to volume overload during: Noncompliance with diet medication and renal dialysis. 3. Hyperkalemia in a patient with end-stage renal disease. The patient is getting dialyzed. 4. Paroxysmal atrial flutter. At present in sinus rhythm. Continue current medications. Note the patient is on amiodarone. The patient's liver function tests and thyroid function tests are normal. Later would get a full PFTs with DLCO, since the patient is on amiodarone. The patient has no prior history of TIA or CVA. Hence no need for bridging the patient with Lovenox when the patient's Eliquis has been stopped. 5. Hypertension: Well-controlled continue current medications. 6. END STAGE RENAL DISEASE: On hemodialysis. Patient scheduled for hemodialysis tomorrow. Would recommend discontinue the patient on current medications after dialysis. 7. History of hyperlipidemia. Continue statins 8. The patient's cardiac status is very stable. If the patient needs surgical removal of the renal mass the patient will be an acceptable cardiac risk for this procedure. 9. Murmur of mitral regurgitation: Mild mitral regurgitation by echocardiographi 10. Hyperkalemia: Nephrology on the case. 11. Moderate pulmonary hypertension. Medications reviewed. Medical regimen and management plan discussed with attending provider on the case. Medical decision making is of moderate complexity. Echo has been discussed with the patient. 40 minutes spent as patient more than 50% of time spent in direct patient care. Will follow.
[2019-10-12] MEDS: DIPHENHYDRAMINE HCL 25 MG CAPSULE PO PRN (20:08)
--- NOTE | 2019-10-12 21:57 | PDOC PROGRESS REPORT ---
Subjective Progress Note for:: 10/12/19 Subjective:: Patient was supposed to have the biopsy of the lumbar vertebra but he had hyperkalemia so the procedure was delayed till Friday. He continues to complain of pain in the right flank Reason For Visit: RENAL MASS/ESRD/BACK PAIN Physical Exam Vital Signs: Temp Pulse Resp BP Pulse Ox 99.8 F 106 H 18 117/78 98 10/12/19 19:36 10/12/19 19:36 10/12/19 19:36 10/12/19 19:36 10/12/19 19:36 Intake & Output 10/11/19 10/12/19 10/13/19 06:59 06:59 06:59 Intake Total 830 860 170 Output Total 0 1000 0 Balance 830 -140 170 General appearance: PRESENT: no acute distress Eye exam: PRESENT: PERRLA Respiratory exam: PRESENT: clear to auscultation dave Cardiovascular exam: PRESENT: +S1, +S2 Neurological exam: PRESENT: alert Results Laboratory Results: 10/12/19 08:50 10/12/19 08:50 10/12/19 10/12/19 10/12/19 06:36 08:50 08:50 WBC Cancelled 12.9 H RBC Cancelled 3.98 L Hgb Cancelled 12.0 L Hct Cancelled 35.5 L MCV Cancelled 89 MCH Cancelled 30.3 MCHC Cancelled 33.9 RDW Cancelled 15.7 H Plt Count Cancelled 144 L Seg Neutrophils % Cancelled Not Reportable Sodium 132.6 L Potassium 6.2 H* Chloride 92 L Carbon Dioxide 25 Anion Gap 16 BUN 53 H Creatinine 13.70 H Est GFR ( Amer) 4 L Glucose 88 Calcium 8.9 Total Bilirubin 0.8 AST 20 Alkaline Phosphatase 58 Total Protein 7.7 Albumin 3.9 10/09/19 10/09/19 23:16 23:16 Creatine Kinase 121 CK-MB (CK-2) 0.57 Troponin I 0.112 Impressions: Abdomen/Pelvis CT 10/10/19 00:00 IMPRESSION: Prominent axillary nodes. Not definitely pathologic. Indeterminate nodes in the mediastinum. Solid right renal mass measuring over 6 cm. Atrophic kidneys. Probable Schmorl's noted L1. Well-circumscribed along the superior endplate without extension into the pedicles. Chest CT 02/02/20 00:00 IMPRESSION: Prominent axillary nodes. Not definitely pathologic. Indeterminate nodes in the mediastinum. Solid right renal mass measuring over 6 cm. Atrophic kidneys. Probable Schmorl's noted L1. Well-circumscribed along the superior endplate without extension into the pedicles. Lumbar Spine CT 10/10/19 03:49 IMPRESSION: 1. Solid-appearing mass at the upper pole of the right kidney, which has increased in size compared to the prior study. This is most compatible with malignancy. Recommend correlation with clinical history. 2. New lytic lesion within the L1 vertebral body, suggesting metastatic disease. 3. No acute fracture. Lumbar Spine MRI 10/10/19 06:22 IMPRESSION: 1. HOMOGENEOUS ROUND LESION IN THE SUPERIOR BODY OF THE L1 VERTEBRAL BODY DESCRIBED. THIS IS CONCERNING FOR A METASTATIC LESION. AN ATYPICAL SCHMORL'S NODE COULD BE ANOTHER POSSIBILITY BUT LESS LIKELY. MAY CONSIDER BONE SCAN TO EVALUATE THE FINDING IN THE L1 VERTEBRAL BODY AND TO DETERMINE IF THERE ARE ANY OTHER SKELETAL LESIONS IN THE REMAINDER OF THE BODY. 2. MILD CHRONIC DEGENERATIVE CHANGES DESCRIBED. NO SIGNIFICANT STENOSIS OR IMPINGEMENT. 3. HETEROGENOUS MASS IN THE RIGHT KIDNEY, NOT COMPLETELY IMAGED. Thoracic Spine MRI 10/10/19 06:22 IMPRESSION: NORMAL MRI THORACIC SPINE. NO EVIDENCE OF THORACIC VERTEBRAL METASTASIS. 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 Is this a current diagnosis for this admission?: Yes (2) End stage renal disease on dialysis Is this a current diagnosis for this admission?: Yes (3) Lytic lesion of bone on x-ray Is this a current diagnosis for this admission?: Yes (4) Atrial flutter Qualifiers: Atrial flutter type: typical Qualified Code(s): I48.3 - Typical atrial flutter Is this a current diagnosis for this admission?: Yes - Time Time Spent with patient: 15-24 minutes - Plan Summary Plan Summary: Continue treatment
[2019-10-13] MEDS: ACETAMINOPHEN 325 MG TABLET PO PRN ×2 (00:45→15:08)
[2019-10-13] MEDS: MORPHINE SULFATE 10 MG/ML INJ IV PRN ×2 (00:45→09:37)
[2019-10-13 04:41] LABS: HEMATOCRIT 36.6 % (37.9-51.0); HEMOGLOBIN 12.2 g/dL (13.5-17.0); MEAN CORPUSCULAR HEMOGLOBIN 29.9 pg (27.0-33.4); MEAN CORPUSCULAR HGB CONC 33.3 g/dL (32.0-36.0); MEAN CORPUSCULAR VOLUME 90 fl (80-97); PLATELET COUNT 161 10^3/uL (150-450); RED BLOOD COUNT 4.07 10^6/uL (4.35-5.55); RED CELL DISTRIBUTION WIDTH 15.3 % (11.5-14.0); WHITE BLOOD COUNT 11.2 10^3/uL (4.0-10.5)
[2019-10-13 04:45] LABS: ANION GAP 17 (5-19); BLOOD UREA NITROGEN 68 mg/dL (7-20); CALCIUM 9.1 mg/dL (8.4-10.2); CARBON DIOXIDE 29 mmol/L (22-30); CHLORIDE 88 mmol/L (98-107); GLUCOSE 106 mg/dL (75-110)
[2019-10-13 04:59] LABS: POTASSIUM 6.1 mmol/L (3.6-5.0)
[2019-10-13] MEDS ORDERED: HEPARIN SOD (PORCINE) 1,000 UNIT/ML 10 ML VIAL IV PRN (05:00)
[2019-10-13] MEDS: OXYCODONE HCL IR 5 MG TABLET PO PRN ×4 (05:09→23:18)
[2019-10-13 05:16] LABS: ABSOLUTE LYMPHOCYTES# (MANUAL) 0.7 10^3/uL (0.5-4.7); ABSOLUTE MONOCYTES # (MANUAL) 1.1 10^3/uL (0.1-1.4); BAND NEUTROPHILS % (MANUAL) 3 % (3-5); BASOPHILS % (MANUAL) 0 % (0-2); EOSINOPHILS % (MANUAL) 0 % (0-6); LYMPHOCYTES % (MANUAL) 5 % (13-45); MONOCYTES % (MANUAL) 10 % (3-13); SEGMENTED NEUTROPHILS % (MAN) 81 % (42-78); TOTAL CELLS COUNTED 100
[2019-10-13 05:17] LABS: ANISOCYTOSIS SLIGHT; PLATELET COMMENT ADEQUATE
--- NOTE | 2019-10-13 08:20 | PDOC PROGRESS REPORT ---
Subjective Progress Note for:: 10/13/19 Subjective:: Unfortunately procedure could not be done because of hyperkalemia Reason For Visit: RENAL MASS/ESRD/BACK PAIN Physical Exam Vital Signs: Temp Pulse Resp BP Pulse Ox 97.5 F 98 17 114/72 97 10/13/19 05:04 10/13/19 07:00 10/13/19 05:04 10/13/19 05:04 10/13/19 05:04 Intake & Output 10/12/19 10/13/19 10/14/19 06:59 06:59 06:59 Intake Total 860 170 Output Total 1000 0 Balance -140 170 General appearance: PRESENT: no acute distress, well-developed, well-nourished Head exam: PRESENT: atraumatic, normocephalic Eye exam: PRESENT: conjunctiva pink, EOMI, PERRLA. ABSENT: scleral icterus Ear exam: PRESENT: normal external ear exam Mouth exam: PRESENT: moist, tongue midline Neck exam: ABSENT: carotid bruit, JVD, lymphadenopathy, thyromegaly Respiratory exam: PRESENT: clear to auscultation dave. ABSENT: rales, rhonchi, wheezes Cardiovascular exam: PRESENT: RRR. ABSENT: diastolic murmur, rubs, systolic murmur Pulses: PRESENT: normal dorsalis pedis pul Vascular exam: PRESENT: normal capillary refill GI/Abdominal exam: PRESENT: normal bowel sounds, soft. ABSENT: distended, guarding, mass, organolmegaly, rebound, tenderness Rectal exam: PRESENT: deferred Extremities exam: PRESENT: full ROM. ABSENT: calf tenderness, clubbing, pedal edema Neurological exam: PRESENT: alert, awake, oriented to person, oriented to place, oriented to time, oriented to situation, CN II-XII grossly intact. ABSENT: motor sensory deficit Psychiatric exam: PRESENT: appropriate affect, normal mood. ABSENT: homicidal ideation, suicidal ideation Skin exam: PRESENT: dry, intact, warm. ABSENT: cyanosis, rash Results Laboratory Results: 10/13/19 03:42 10/13/19 03:42 10/12/19 10/12/19 10/13/19 08:50 08:50 03:42 WBC 12.9 H 11.2 H RBC 3.98 L 4.07 L Hgb 12.0 L 12.2 L Hct 35.5 L 36.6 L MCV 89 90 MCH 30.3 29.9 MCHC 33.9 33.3 RDW 15.7 H 15.3 H Plt Count 144 L 161 Seg Neutrophils % Not Reportable Not Reportable Sodium 132.6 L Potassium 6.2 H* Chloride 92 L Carbon Dioxide 25 Anion Gap 16 BUN 53 H Creatinine 13.70 H Est GFR ( Amer) 4 L Glucose 88 Calcium 8.9 Magnesium Total Bilirubin 0.8 AST 20 Alkaline Phosphatase 58 Total Protein 7.7 Albumin 3.9 10/13/19 03:42 WBC RBC Hgb Hct MCV MCH MCHC RDW Plt Count Seg Neutrophils % Sodium 133.7 L Potassium 6.1 H* Chloride 88 L Carbon Dioxide 29 Anion Gap 17 BUN 68 H Creatinine 15.17 H Est GFR ( Amer) 4 L Glucose 106 Calcium 9.1 Magnesium 2.3 Total Bilirubin AST Alkaline Phosphatase Total Protein Albumin 10/09/19 10/09/19 23:16 23:16 Creatine Kinase 121 CK-MB (CK-2) 0.57 Troponin I 0.112 Impressions: Abdomen/Pelvis CT 10/10/19 00:00 IMPRESSION: Prominent axillary nodes. Not definitely pathologic. Indeterminate nodes in the mediastinum. Solid right renal mass measuring over 6 cm. Atrophic kidneys. Probable Schmorl's noted L1. Well-circumscribed along the superior endplate without extension into the pedicles. Chest CT 10/10/19 00:00 IMPRESSION: Prominent axillary nodes. Not definitely pathologic. Indeterminate nodes in the mediastinum. Solid right renal mass measuring over 6 cm. Atrophic kidneys. Probable Schmorl's noted L1. Well-circumscribed along the superior endplate without extension into the pedicles. Lumbar Spine CT 10/10/19 03:49 IMPRESSION: 1. Solid-appearing mass at the upper pole of the right kidney, which has increased in size compared to the prior study. This is most compatible with malignancy. Recommend correlation with clinical history. 2. New lytic lesion within the L1 vertebral body, suggesting metastatic disease. 3. No acute fracture. Lumbar Spine MRI 10/10/19 06:22 IMPRESSION: 1. HOMOGENEOUS ROUND LESION IN THE SUPERIOR BODY OF THE L1 VERTEBRAL BODY DESCRIBED. THIS IS CONCERNING FOR A METASTATIC LESION. AN ATYPICAL SCHMORL'S NODE COULD BE ANOTHER POSSIBILITY BUT LESS LIKELY. MAY CONSIDER BONE SCAN TO EVALUATE THE FINDING IN THE L1 VERTEBRAL BODY AND TO DETERMINE IF THERE ARE ANY OTHER SKELETAL LESIONS IN THE REMAINDER OF THE BODY. 2. MILD CHRONIC DEGENERATIVE CHANGES DESCRIBED. NO SIGNIFICANT STENOSIS OR IMPINGEMENT. 3. HETEROGENOUS MASS IN THE RIGHT KIDNEY, NOT COMPLETELY IMAGED. Thoracic Spine MRI 10/10/19 06:22 IMPRESSION: NORMAL MRI THORACIC SPINE. NO EVIDENCE OF THORACIC VERTEBRAL METASTASIS. Assessment & Plan - Diagnosis (1) Lytic lesion of bone on x-ray Is this a current diagnosis for this admission?: Yes Plan: Eating procedure, spoke with Dr. Benson this morning feels that dialysis should correct the hyperkalemia in time for procedure (2) Renal mass, right Is this a current diagnosis for this admission?: Yes Plan: Plan for procedure as above (3) Pain, neoplasm-related Is this a current diagnosis for this admission?: Yes Plan: Continue with current pain control - Time Time Spent with patient: 15-24 minutes
[2019-10-13] MEDS ORDERED: METOPROLOL TARTRATE PF/INJ 5 MG/5 ML SDV IV ONE (10:33)
[2019-10-13] MEDS ORDERED: DEXTROSE 5%-WATER 500 ML with AMIODARONE HCL 900 MG IV PRN ×2 (10:45)
--- NOTE | 2019-10-13 11:22 | PDOC PROGRESS REPORT ---
Subjective Progress Note for:: 10/13/19 Reason For Visit: Patient seen this morning on dialysis. Has got pain of his back especially towards the right side. Otherwise he denies any history of chest pain or shortness of breath, fever or chills. No history of any hematuria. Labs and medications were reviewed.Dialysis is ongoing without any issues otherwise. Did speak with Dr. Billings from pain management yesterday who plans to do a biopsy as well as kyphoplasty on his spines. Unfortunately could not be done yesterday because of hyperkalemia and therefore has been rescheduled for Friday. He will be dialyzed first thing onfr morning and then handed over for surgical procedure between 10 and 11:00 in the morning. Physical Exam Vital Signs: Temp Pulse Resp BP Pulse Ox 98.3 F 100 18 132/64 H 95 10/13/19 07:04 10/13/19 07:04 10/13/19 07:04 10/13/19 07:04 10/13/19 07:04 Intake & Output 10/12/19 10/13/19 10/14/19 06:59 06:59 06:59 Intake Total 860 170 Output Total 1000 0 Balance -140 170 General appearance: PRESENT: mild distress Respiratory exam: PRESENT: clear to auscultation dave. ABSENT: crackles Cardiovascular exam: PRESENT: +S1, +S2 GI/Abdominal exam: PRESENT: normal bowel sounds, soft. ABSENT: organomegaly, tenderness Extremities exam: PRESENT: pedal edema Neurological exam: PRESENT: alert, awake, oriented to place Psychiatric exam: PRESENT: agitated Results Laboratory Results: 10/13/19 03:42 10/13/19 03:42 10/13/19 10/13/19 03:42 03:42 WBC 11.2 H RBC 4.07 L Hgb 12.2 L Hct 36.6 L MCV 90 MCH 29.9 MCHC 33.3 RDW 15.3 H Plt Count 161 Seg Neutrophils % Not Reportable Sodium 133.7 L Potassium 6.1 H* Chloride 88 L Carbon Dioxide 29 Anion Gap 17 BUN 68 H Creatinine 15.17 H Est GFR ( Amer) 4 L Glucose 106 Calcium 9.1 Magnesium 2.3 10/09/19 10/09/19 23:16 23:16 Creatine Kinase 121 CK-MB (CK-2) 0.57 Troponin I 0.112 Impressions: Abdomen/Pelvis CT 10/10/19 00:00 IMPRESSION: Prominent axillary nodes. Not definitely pathologic. Indeterminate nodes in the mediastinum. Solid right renal mass measuring over 6 cm. Atrophic kidneys. Probable Schmorl's noted L1. Well-circumscribed along the superior endplate without extension into the pedicles. Chest CT 10/10/19 00:00 IMPRESSION: Prominent axillary nodes. Not definitely pathologic. Indeterminate nodes in the mediastinum. Solid right renal mass measuring over 6 cm. Atrophic kidneys. Probable Schmorl's noted L1. Well-circumscribed along the superior endplate without extension into the pedicles. Lumbar Spine CT 10/10/19 03:49 IMPRESSION: 1. Solid-appearing mass at the upper pole of the right kidney, which has increased in size compared to the prior study. This is most compatible with malignancy. Recommend correlation with clinical history. 2. New lytic lesion within the L1 vertebral body, suggesting metastatic disease. 3. No acute fracture. Lumbar Spine MRI 10/10/19 06:22 IMPRESSION: 1. HOMOGENEOUS ROUND LESION IN THE SUPERIOR BODY OF THE L1 VERTEBRAL BODY DESCRIBED. THIS IS CONCERNING FOR A METASTATIC LESION. AN ATYPICAL SCHMORL'S NODE COULD BE ANOTHER POSSIBILITY BUT LESS LIKELY. MAY CONSIDER BONE SCAN TO EVALUATE THE FINDING IN THE L1 VERTEBRAL BODY AND TO DETERMINE IF THERE ARE ANY OTHER SKELETAL LESIONS IN THE REMAINDER OF THE BODY. 2. MILD CHRONIC DEGENERATIVE CHANGES DESCRIBED. NO SIGNIFICANT STENOSIS OR IMPINGEMENT. 3. HETEROGENOUS MASS IN THE RIGHT KIDNEY, NOT COMPLETELY IMAGED. Thoracic Spine MRI 10/10/19 06:22 IMPRESSION: NORMAL MRI THORACIC SPINE. NO EVIDENCE OF THORACIC VERTEBRAL METASTASIS. Assessment & Plan - Diagnosis (1) Lower back pain Qualifiers: Chronicity: acute Back pain laterality: bilateral Sciatica presence: w [facility] sciatica Qualified Code(s): M54.5 - Low back pain Is this a current diagnosis for this admission?: Yes Plan: Patient is got renal mass along with a homogeneous bone lesion is L1. This is going to be explored and follow-up with kyphoplasty by Dr. Billings/pain management on Friday. Pain management currently by primary care. (2) Renal mass, right Is this a current diagnosis for this admission?: Yes Plan: Work-up as mentioned earlier being managed by heme oncologist and pain management physicians. (3) End-stage renal disease on hemodialysis Is this a current diagnosis for this admission?: Yes Plan: Patient currently undergoing dialysis. Vital signs are stable. Dialysis is being supervised to ensure safe and smooth procedure. Plan to remove between 1 and 2 L of fluid as tolerated as his blood pressure is low most likely from vasodilation from narcotics. He is currently not on any blood pressure medications. (4) Hyperkalemia Is this a current diagnosis for this admission?: Yes Plan: Should be corrected by hemodialysis. Most likely from hemolysis. Will also get a potassium levels checked on Friday by the dialysis nurse and compare with the blood draw being done by the machine inspector.Monitor. (5) Hypertension Plan: Very well controlled. Currently not on any of his usual antihypertensive medications.Also monitor for sepsis. Will get blood cultures and a UA drawn today. Follow-up on white count tomorrow.If his blood pressure drops any furt her will recommend starting on empirical antibiotics. (6) Paroxysmal atrial flutter Plan: Rate controlled (7) Bone lesion Plan: L1 lesion that is being explored for possible benign versus metastatic lesion from right kidney mass. Plans as outlined earlier.
[2019-10-13] MEDS: DOCUSATE SODIUM 100 MG CAPSULE PO SCH (11:23)
[2019-10-13] MEDS ORDERED: ADENOSINE INJ/PF 6 MG/2 ML SDV IV ONE ×3 (11:37→11:38)
[2019-10-13 13:04] LABS: ANION GAP 18 (5-19); CALCIUM 8.9 mg/dL (8.4-10.2); CARBON DIOXIDE 28 mmol/L (22-30); CHLORIDE 91 mmol/L (98-107); GLUCOSE 122 mg/dL (75-110)
[2019-10-13] MEDS ORDERED: DIGOXIN INJ 0.5 MG/2 ML AMPULE ONE (13:15)
[2019-10-13 13:17] LABS: BLOOD UREA NITROGEN 41 mg/dL (7-20); POTASSIUM 4.6 mmol/L (3.6-5.0)
[2019-10-13] MEDS ORDERED: DIGOXIN INJ 0.5 MG/2 ML AMPULE IV ONE (13:30)
--- NOTE | 2019-10-13 18:28 | PDOC PROGRESS REPORT ---
Subjective Progress Note for:: 10/13/19 Subjective:: Patient had episode of narrow complex tachycardia, history of a flutter, presently on intravenous amiodarone. He probably has metastatic renal cell carcinoma, he had a renal mass that was 3.8 cm in size 2 years ago now 6 cm in size this is most likely malignant neoplasm of the kidney. I asked him about living will and about advanced plan of care, he does not have a living will, he does not have a CODE STATUS, I explained to him the option of DNR and full code he will get back to me in 24 hours. Reason For Visit: RENAL MASS/ESRD/BACK PAIN Physical Exam Vital Signs: Temp Pulse Resp BP Pulse Ox 99.9 F 108 H 18 88/68 L 91 L 10/13/19 16:05 10/13/19 17:00 10/13/19 15:07 10/13/19 17:00 10/13/19 15:07 Intake & Output 10/12/19 10/13/19 10/14/19 06:59 06:59 06:59 Intake Total 860 170 939 Output Total 1000 0 0 Balance -140 170 939 General appearance: PRESENT: no acute distress Eye exam: PRESENT: PERRLA Respiratory exam: PRESENT: clear to auscultation dave Cardiovascular exam: PRESENT: +S1, +S2 GI/Abdominal exam: PRESENT: soft Neurological exam: PRESENT: alert Results Laboratory Results: 10/13/19 03:42 10/13/19 12:12 10/13/19 10/13/19 10/13/19 03:42 03:42 12:12 WBC 11.2 H RBC 4.07 L Hgb 12.2 L Hct 36.6 L MCV 90 MCH 29.9 MCHC 33.3 RDW 15.3 H Plt Count 161 Seg Neutrophils % Not Reportable Sodium 133.7 L 136.5 L Potassium 6.1 H* 4.6 D Chloride 88 L 91 L Carbon Dioxide 29 28 Anion Gap 17 18 BUN 68 H 41 H D Creatinine 15.17 H 10.63 H Est GFR ( Amer) 4 L 6 L Glucose 106 122 H Calcium 9.1 8.9 Magnesium 2.3 2.2 10/09/19 10/09/19 23:16 23:16 Creatine Kinase 121 CK-MB (CK-2) 0.57 Troponin I 0.112 Impressions: Abdomen/Pelvis CT 10/10/19 00:00 IMPRESSION: Prominent axillary nodes. Not definitely pathologic. Indeterminate nodes in the mediastinum. Solid right renal mass measuring over 6 cm. Atrophic kidneys. Probable Schmorl's noted L1. Well-circumscribed along the superior endplate without extension into the pedicles. Chest CT 10/10/19 00:00 IMPRESSION: Prominent axillary nodes. Not definitely pathologic. Indeterminate nodes in the mediastinum. Solid right renal mass measuring over 6 cm. Atrophic kidneys. Probable Schmorl's noted L1. Well-circumscribed along the superior endplate without extension into the pedicles. Lumbar Spine CT 10/10/19 03:49 IMPRESSION: 1. Solid-appearing mass at the upper pole of the right kidney, which has increased in size compared to the prior study. This is most compatible with malignancy. Recommend correlation with clinical history. 2. New lytic lesion within the L1 vertebral body, suggesting metastatic disease. 3. No acute fracture. Lumbar Spine MRI 10/10/19 06:22 IMPRESSION: 1. HOMOGENEOUS ROUND LESION IN THE SUPERIOR BODY OF THE L1 VERTEBRAL BODY DESCRIBED. THIS IS CONCERNING FOR A METASTATIC LESION. AN ATYPICAL SCHMORL'S NODE COULD BE ANOTHER POSSIBILITY BUT LESS LIKELY. MAY CONSIDER BONE SCAN TO EVALUATE THE FINDING IN THE L1 VERTEBRAL BODY AND TO DETERMINE IF THERE ARE ANY OTHER SKELETAL LESIONS IN THE REMAINDER OF THE BODY. 2. MILD CHRONIC DEGENERATIVE CHANGES DESCRIBED. NO SIGNIFICANT STENOSIS OR IMPINGEMENT. 3. HETEROGENOUS MASS IN THE RIGHT KIDNEY, NOT COMPLETELY IMAGED. Thoracic Spine MRI 10/10/19 06:22 IMPRESSION: NORMAL MRI THORACIC SPINE. NO EVIDENCE OF THORACIC VERTEBRAL METASTASIS. 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 Is this a current diagnosis for this admission?: Yes Plan: This is probably malignant neoplasm, oncology on board (2) End stage renal disease on dialysis Is this a current diagnosis for this admission?: Yes Plan: Per nephrology (3) Lytic lesion of bone on x-ray Is this a current diagnosis for this admission?: Yes Plan: Awaiting biopsy and possible kyphoplasty (4) Atrial flutter Qualifiers: Atrial flutter type: typical Qualified Code(s): I48.3 - Typical atrial flutter Is this a current diagnosis for this admission?: Yes Plan: Per cardiology, presently on amiodarone - Time Time Spent with patient: 25-34 minutes
--- NOTE | 2019-10-13 18:35 | EKG REPORT ---
SEVERITY:- ABNORMAL ECG - EXTREME TACHYCARDIA WITH WIDE COMPLEX, NO FURTHER RHYTHM ANALYSIS ATTEMPTED MOST LIKELY ATRIAL FLUTTER WITHH LBBB ABHERHANCY : Confirmed by: Amanda Dumont MD 13-Oct-2019 18:34:29
--- NOTE | 2019-10-13 18:39 | Progress Note ---
Provider Note Provider Note: Cardiology PROGRESS NOTE by Dr. Amanda Dumont on 10/13/2019. SUBJECTIVE: The patient denies any chest pain discomfort. There is no shortness of breath. There is no recurrence of atrial flutter. He still has flank pain. He is still awaiting biopsy. There is no ventricular arrhythmia seen on the monitor. PHYSICAL EXAMINATION: The patient is mildly obese. In no acute distress. Selected Entries 10/13/19 10/13/19 07:04 07:43 Temperature 98.3 F Temperature Oral Source Pulse Rate 100 Respiratory 18 Rate Blood Pressure 132/64 H Blood Pressure 86 Mean BP Location Left Arm BP Position Sitting O2 Sat by Pulse 95 Oximetry Oxygen Delivery Nasal Cannula Method ( includes room air) Oxygen Flow 2 Rate HEAD: Is atraumatic and normocephalic. EYES: Pupils are equal round regular reactive to light accommodation. External ocular movements are normal. There is no conjunctival pallor. There is no scleral icterus. EARS: Tympanic membranes are intact. External auditory canals are clear. NOSE: There is no deviated nasal septum. There is no inflammation of the nasal mucous membrane. MOUTH: Mucous membranes of mouth are moist. Tongue is moist. There is no ulcers in the mouth. There is no bleeding from the gums. THROAT: There is no redness of the oropharynx. There is no exudates. SKIN: There is no skin rashes. There is no petechia or ecchymosis. There is no skin lesions. NECK: Is supple. There is no JVD. Carotids equal there is no bruit. There is no lymphadenopathy. Trachea central. LUNGS: Lungs are clear to auscultation percussion, without any rhonchi rales or wheezing. THERE IS NO CHEST WALL TENDERNESS. Heart: S1, S2 heard normally. There is no S3 gallop. There is no S4 gallop. There is systolic murmur left sternal border and apex. Murmur of mitral regurgitation heard. . There is no rub. ABDOMEN: Soft. Nontender. There is no hepatosplenomegaly. All sounds are well heard. There is no tender areas of masses. EXTREMITIES: Femorals are diminished. There is no femoral bruits. Leg pulses are diminished. There is no pedal edema. There is diffuse swelling of the right upper extremity. There is no DVT or cellulitis. There is no cyanosis or clubbing. There is no calf tenderness. PUBLIC ACCOUNTANT: The patient is conscious awake alert oriented x3 with no focal deficits. PSYCHIATRIC: The patient judgment are intact his affect is normal. Laboratory data and imaging findings were reviewed. IMPRESSION/RECOMMENDATION: 1. 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 Patient for dialysis of the right leg lesion. Hence the patient's Eliquis has been discontinued. 2. Congestive heart failure secondary to volume overload during: Noncompliance with diet medication and renal dialysis. 3. Hyperkalemia in a patient with end-stage renal disease. The patient is getting dialyzed. 4. Paroxysmal atrial flutter. At present in sinus rhythm. Continue current medications. Note the patient is on amiodarone. The patient's liver function tests and thyroid function tests are normal. Later would get a full PFTs with DLCO, since the patient is on amiodarone. The patient has no prior history of TIA or CVA. Hence no need for bridging the patient with Lovenox when the patient's Eliquis has been stopped. 5. Hypertension: Well-controlled continue current medications. 6. END STAGE RENAL DISEASE: On hemodialysis. Patient scheduled for hemo dialysis tomorrow. Would recommend discontinue the patient on current medications after dialysis. 7. History of hyperlipidemia. Continue statins 8. The patient's cardiac status is very stable. If the patient needs surgical removal of the renal mass the patient will be an acceptable cardiac risk for this procedure. 9. Murmur of mitral regurgitation: Mild mitral regurgitation by echocardiogr aphi 10. Hyperkalemia: Nephrology on the case. 11. Moderate pulmonary hypertension. Medications reviewed. Medical regimen and management plan discussed with attending provider on the case. Medical decision making is of moderate complexity. Echo has been discussed with the patient. 40 minutes spent as patient more than 50% of time spent in direct patient care. Will follow.
[2019-10-13] MEDS: FAMOTIDINE 20 MG TABLET PO SCH (21:11)
[2019-10-14] MEDS: MORPHINE SULFATE 10 MG/ML INJ IV PRN ×2 (02:44→16:04)
[2019-10-14] MEDS ORDERED: VANCOMYCIN HCL INJ 1000 MG VIAL IV PRN (05:09)
[2019-10-14] MEDS ORDERED: VANCOMYCIN HCL 1,000 MG in DEXTROSE 5%-WATER 250 ML IV ONE ×2 (05:15→12:30)
[2019-10-14 06:48] LABS: HEMATOCRIT 30.7 % (37.9-51.0); HEMOGLOBIN 10.5 g/dL (13.5-17.0); MEAN CORPUSCULAR HEMOGLOBIN 30.5 pg (27.0-33.4); MEAN CORPUSCULAR HGB CONC 34.3 g/dL (32.0-36.0); MEAN CORPUSCULAR VOLUME 89 fl (80-97); PLATELET COUNT 188 10^3/uL (150-450); RED BLOOD COUNT 3.45 10^6/uL (4.35-5.55); RED CELL DISTRIBUTION WIDTH 15.5 % (11.5-14.0); WHITE BLOOD COUNT 10.7 10^3/uL (4.0-10.5)
[2019-10-14 07:18] LABS: ABSOLUTE LYMPHOCYTES# (MANUAL) 0.7 10^3/uL (0.5-4.7); BAND NEUTROPHILS % (MANUAL) 3 % (3-5); BASOPHILS % (MANUAL) 0 % (0-2); EOSINOPHILS % (MANUAL) 0 % (0-6); LYMPHOCYTES % (MANUAL) 7 % (13-45); MONOCYTES % (MANUAL) 9 % (3-13); SEGMENTED NEUTROPHILS % (MAN) 81 % (42-78); TOTAL CELLS COUNTED 100
[2019-10-14 07:19] LABS: ANISOCYTOSIS SLIGHT; PLATELET COMMENT ADEQUATE
[2019-10-14] MEDS: OXYCODONE HCL IR 5 MG TABLET PO PRN ×2 (08:01→12:04)
--- NOTE | 2019-10-14 08:50 | PDOC PROGRESS REPORT ---
Subjective Progress Note for:: 10/14/19 Subjective:: Patient unfortunately went into SVT while he was in dialysis, received adenosine and ultimately was controlled. Also blood cultures came back positive x2 for staph aureus. Discussed case with both Dr. Hannon, Dr. Billings and Dr. Benson. Procedure will be on hold until blood cultures are cleared. Patient is on appropriate antibiotic with Vanco. Repeat blood cultures need to be done on Friday. Patient is still in significant pain but nursing is concerned that there is some bouts of confusion. Reason For Visit: RENAL MASS/ESRD/BACK PAIN Physical Exam Vital Signs: Temp Pulse Resp BP Pulse Ox 99.6 F 92 18 153/70 H 94 10/14/19 06:56 10/14/19 08:00 10/14/19 06:56 10/14/19 08:00 10/14/19 06:56 Intake & Output 10/13/19 10/14/19 10/15/19 06:59 06:59 06:59 Intake Total 170 1239 250 Output Total 0 0 Balance 170 1239 250 Weight 99.5 kg General appearance: PRESENT: no acute distress, well-developed, well-nourished Head exam: PRESENT: atraumatic, normocephalic Eye exam: PRESENT: conjunctiva pink, EOMI, PERRLA. ABSENT: scleral icterus Ear exam: PRESENT: normal external ear exam Mouth exam: PRESENT: moist, tongue midline Neck exam: ABSENT: carotid bruit, JVD, lymphadenopathy, thyromegaly Respiratory exam: PRESENT: clear to auscultation dave. ABSENT: rales, rhonchi, wheezes Cardiovascular exam: PRESENT: RRR. ABSENT: diastolic murmur, rubs, systolic murmur Pulses: PRESENT: normal dorsalis pedis pul Vascular exam: PRESENT: normal capillary refill GI/Abdominal exam: PRESENT: normal bowel sounds, soft. ABSENT: distended, guarding, mass, organolmegaly, rebound, tenderness Rectal exam: PRESENT: deferred Extremities exam: PRESENT: full ROM. ABSENT: calf tenderness, clubbing, pedal edema Neurological exam: PRESENT: alert, awake, oriented to person, oriented to place, oriented to time, oriented to situation, CN II-XII grossly intact. ABSENT: motor sensory deficit Psychiatric exam: PRESENT: appropriate affect, normal mood. ABSENT: homicidal ideation, suicidal ideation Skin exam: PRESENT: dry, intact, warm. ABSENT: cyanosis, rash Results Laboratory Results: 10/14/19 05:45 10/13/19 12:12 10/13/19 10/14/19 12:12 05:45 WBC 10.7 H RBC 3.45 L Hgb 10.5 L Hct 30.7 L MCV 89 MCH 30.5 MCHC 34.3 RDW 15.5 H Plt Count 188 Seg Neutrophils % Not Reportable Sodium 136.5 L Potassium 4.6 D Chloride 91 L Carbon Dioxide 28 Anion Gap 18 BUN 41 H D Creatinine 10.63 H Est GFR ( Amer) 6 L Glucose 122 H Calcium 8.9 Magnesium 2.2 10/13/19 13:34 Blood Blood Culture (PCR) - Final Staphylococcus Aureus 10/13/19 12:12 Blood Blood Culture (PCR) - Final Staphylococcus Aureus 10/09/19 10/09/19 23:16 23:16 Creatine Kinase 121 CK-MB (CK-2) 0.57 Troponin I 0.112 Impressions: Abdomen/Pelvis CT 10/10/19 00:00 IMPRESSION: Prominent axillary nodes. Not definitely pathologic. Indeterminate nodes in the mediastinum. Solid right renal mass measuring over 6 cm. Atrophic kidneys. Probable Schmorl's noted L1. Well-circumscribed along the superior endplate without extension into the pedicles. Chest CT 10/10/19 00:00 IMPRESSION: Prominent axillary nodes. Not definitely pathologic. Indeterminate nodes in the mediastinum. Solid right renal mass measuring over 6 cm. Atrophic kidneys. Probable Schmorl's noted L1. Well-circumscribed along the superior endplate without extension into the pedicles. Lumbar Spine CT 10/10/19 03:49 IMPRESSION: 1. Solid-appearing mass at the upper pole of the right kidney, which has increased in size compared to the prior study. This is most compatible with malignancy. Recommend correlation with clinical history. 2. New lytic lesion within the L1 vertebral body, suggesting metastatic disease. 3. No acute fracture. Lumbar Spine MRI 10/10/19 06:22 IMPRESSION: 1. HOMOGENEOUS ROUND LESION IN THE SUPERIOR BODY OF THE L1 VERTEBRAL BODY DESCRIBED. THIS IS CONCERNING FOR A METASTATIC LESION. AN ATYPICAL SCHMORL'S N ODE COULD BE ANOTHER POSSIBILITY BUT LESS LIKELY. MAY CONSIDER BONE SCAN TO EVALUATE THE FINDING IN THE L1 VERTEBRAL BODY AND TO DETERMINE IF THERE ARE ANY OTHER SKELETAL LESIONS IN THE REMAINDER OF THE BODY. 2. MILD CHRONIC DEGENERATIVE CHANGES DESCRIBED. NO SIGNIFICANT STENOSIS OR IMPINGEMENT. 3. HETEROGENOUS MASS IN THE RIGHT KIDNEY, NOT COMPLETELY IMAGED. Thoracic Spine MRI 10/10/19 06:22 IMPRESSION: NORMAL MRI THORACIC SPINE. NO EVIDENCE OF THORACIC VERTEBRAL METASTASIS. Assessment & Plan - Diagnosis (1) Lytic lesion of bone on x-ray Is this a current diagnosis for this admission?: Yes Plan: Still need to get bone biopsy but blood cultures need to clear prior to that. (2) Renal mass, right Is this a current diagnosis for this admission?: Yes Plan: Prefer bone biopsy over kidney biopsy if possible. Hopefully cultures were clear appropriately. (3) Pain, neoplasm-related Is this a current diagnosis for this admission?: Yes Plan: New with current pain control - Time Time Spent with patient: 35 or more minutes
[2019-10-14] MEDS ORDERED: ONDANSETRON HCL INJ/PF 4 MG/2 ML SDV IV PRN (10:00)
[2019-10-14] MEDS: DOCUSATE SODIUM 100 MG CAPSULE PO SCH (10:47)
[2019-10-14 11:49] LABS: ANION GAP 15 (5-19); BLOOD UREA NITROGEN 59 mg/dL (7-20); CARBON DIOXIDE 27 mmol/L (22-30); CHLORIDE 92 mmol/L (98-107); GLUCOSE 111 mg/dL (75-110)
--- NOTE | 2019-10-14 11:51 | PDOC PROGRESS REPORT ---
Subjective Progress Note for:: 10/14/19 Reason For Visit: Patient seen today. He has back pain which is made worse with certain movements. However it is overall better than earlier. No history of any chest pain or shortness of breath. He denies history of fever or chills. I note that yesterday he was diagnosed to have SVT and had multiple medications given to convert that into sinus including IV metoprolol/adenosine/amiodarone. That could have been one of the reason for his blood pressure to drop. However he is now growing gram-positive cocci in his blood cultures suggestive of possible MRSA and he has already been dosed with a gram of vancomycin this morning. Patient denies any complaints of pain around the catheter exit site or any discharge. Labs and medications were reviewed. Discussions were done with him as well as with his treating nurse Vinny. Physical Exam Vital Signs: Temp Pulse Resp BP Pulse Ox 98.3 F 90 18 145/89 H 100 10/14/19 10:56 10/14/19 10:56 10/14/19 10:56 10/14/19 10:56 10/14/19 10:56 Intake & Output 10/13/19 10/14/19 10/15/19 06:59 06:59 06:59 Intake Total 170 1239 602 Output Total 0 0 0 Balance 170 1239 602 Weight 99.5 kg General appearance: PRESENT: no acute distress Respiratory exam: PRESENT: clear to auscultation dave. ABSENT: crackles Cardiovascular exam: PRESENT: +S1, +S2 GI/Abdominal exam: PRESENT: normal bowel sounds, soft. ABSENT: organomegaly, te nderness Extremities exam: PRESENT: pedal edema - Trace. Neurological exam: PRESENT: alert, awake, oriented to person, oriented to place Psychiatric exam: PRESENT: appropriate affect Skin exam: PRESENT: other - The left IJ catheter was closely examined. There is no discharge or redness. No tenderness over the catheter.. ABSENT: erythema, rash Results Laboratory Results: 10/14/19 05:45 10/13/19 10/14/19 12:12 05:45 WBC 10.7 H RBC 3.45 L Hgb 10.5 L Hct 30.7 L MCV 89 MCH 30.5 MCHC 34.3 RDW 15.5 H Plt Count 188 Seg Neutrophils % Not Reportable Sodium 136.5 L Potassium 4.6 D Chloride 91 L Carbon Dioxide 28 Anion Gap 18 BUN 41 H D Creatinine 10.63 H Est GFR ( Amer) 6 L Glucose 122 H Calcium 8.9 Magnesium 2.2 10/13/19 13:34 Blood Blood Culture (PCR) - Final Staphylococcus Aureus 10/13/19 12:12 Blood Blood Culture (PCR) - Final Staphylococcus Aureus 10/09/19 10/09/19 23:16 23:16 Creatine Kinase 121 CK-MB (CK-2) 0.57 Troponin I 0.112 Impressions: Abdomen/Pelvis CT 10/10/19 00:00 IMPRESSION: Prominent axillary nodes. Not definitely pathologic. Indeterminate nodes in the mediastinum. Solid right renal mass measuring over 6 cm. Atrophic kidneys. Probable Schmorl's noted L1. Well-circumscribed along the superior endplate without extension into the pedicles. Chest CT 10/10/19 00:00 IMPRESSION: Prominent axillary nodes. Not definitely pathologic. Indeterminate nodes in the mediastinum. Solid right renal mass measuring over 6 cm. Atrophic kidneys. Probable Schmorl's noted L1. Well-circumscribed along the superior endplate without extension into the pedicles. Lumbar Spine CT 10/10/19 03:49 IMPRESSION: 1. Solid-appearing mass at the upper pole of the right kidney, which has increased in size compared to the prior study. This is most compatible with malignancy. Recommend correlation with clinical history. 2. New lytic lesion within the L1 vertebral body, suggesting metastatic disease. 3. No acute fracture. Lumbar Spine MRI 10/10/19 06:22 IMPRESSION: 1. HOMOGENEOUS ROUND LESION IN THE SUPERIOR BODY OF THE L1 VERTEBRAL BODY DE SCRIBED. THIS IS CONCERNING FOR A METASTATIC LESION. AN ATYPICAL SCHMORL'S NODE COULD BE ANOTHER POSSIBILITY BUT LESS LIKELY. MAY CONSIDER BONE SCAN TO EVALUATE THE FINDING IN THE L1 VERTEBRAL BODY AND TO DETERMINE IF THERE ARE ANY OTHER SKELETAL LESIONS IN THE REMAINDER OF THE BODY. 2. MILD CHRONIC DEGENERATIVE CHANGES DESCRIBED. NO SIGNIFICANT STENOSIS OR IMPINGEMENT. 3. HETEROGENOUS MASS IN THE RIGHT KIDNEY, NOT COMPLETELY IMAGED. Thoracic Spine MRI 10/10/19 06:22 IMPRESSION: NORMAL MRI THORACIC SPINE. NO EVIDENCE OF THORACIC VERTEBRAL METASTASIS. Assessment & Plan - Diagnosis (1) Lower back pain Qualifiers: Chronicity: acute Back pain laterality: bilateral Sciatica presence: without sciatica Qualified Code(s): M54.5 - Low back pain Is this a current diagnosis for this admission?: Yes Plan: Patient is got renal mass along with a homogeneous bone lesion is L1. This is going to be explored and follow-up with kyphoplasty by Dr. Billings/pain management. The procedure has been postponed to next week since he is now bacte remic. Pain management currently by primary care. (2) Renal mass, right Is this a current diagnosis for this admission?: Yes Plan: Work-up as mentioned earlier being managed by heme oncologist and pain management physicians. (3) End-stage renal disease on hemodialysis Is this a current diagnosis for this admission?: Yes Plan: Plan for dialysis in the morning. Orders have been placed. (4) Hyperkalemia Is this a current diagnosis for this admission?: Yes Plan: Today's labs are pending. (5) Hypertension Plan: Yesterday his blood pressure became low normal even after taking him off all antihypertensives. The causes could have been prolonged SVT as well as early sepsis. Patient currently on vancomycin.Currently his blood pressure is decent and around 150 systolic. (6) Paroxysmal atrial flutter Plan: Apparently decompensated yesterday and may be was 1 of the reasons to have his blood pressure go down. Presently is converted and his blood pressure is now normalized. As per cardiology. (7) Bone lesion Plan: L1 lesion that is being explored for possible benign versus metastatic lesion from right kidney mass. Plans as outlined earlier. (8) Staphylococcus aureus bacteremia Plan: Final blood culture results are pending. Likely MRSA. Dosed with gram of vancomycin. Will add another gram for total of 2 g loading for this patient followed by 1.5 g postdialysis. Discussed with Rubi pharmacist.At this moment especially patient being stable I do not see any need for catheter removal which on the outside looks clean.
[2019-10-14 12:09] LABS: POTASSIUM 5.5 mmol/L (3.6-5.0)
[2019-10-14] MEDS ORDERED: AMIODARONE HCL 200 MG TABLET PO SCH (15:00)
--- NOTE | 2019-10-14 18:17 | Progress Note ---
Provider Note Provider Note: CARDIOLOGY PROGRESS NOTE by Dr. Amanda Dumont on 10/14/2019. OBJECTIVE: The patient continues to be in pain. His blood cultures also positive and the patient is on antibiotics. The patient denies any chest pain discomfort. He remains in sinus mechanism. There is no recurrence of his atrial flutter. There is no TIA CVA symptoms. There is no ventricular arrhythmias seen. PHYSICAL EXAMINATION: The patient is mild to moderately obese. In distress due to right flank pain. Selected Entries 10/14/19 06:56 Temperature 99.6 F Temperature Oral Source Pulse Rate 94 Respiratory 18 Rate Blood Pressure 116/64 Blood Pressure 81 Mean BP Location Left Arm BP Position Supine O2 Sat by Pulse 94 Oximetry Oxygen Flow 2.00 Rate Oxygen Delivery Nasal Cannula Method HEAD: Is atraumatic and normocephalic. EYES: Pupils are equal round regular reactive to light accommodation. External ocular movements are normal. There is no conjunctival pallor. There is no scleral icterus. EARS: Tympanic membranes are intact. External auditory canals are clear. NOSE: There is no deviated nasal septum. There is no inflammation of the nasal mucous membrane. MOUTH: Mucous membranes of mouth are moist. Tongue is moist. There is no ulcers in the mouth. There is no bleeding from the gums. THROAT: There is no redness of the oropharynx. There is no exudates. SKIN: There is no skin rashes. There is no petechia or ecchymosis. There is no skin lesions. NECK: Is supple. There is no JVD. Carotids equal there is no bruit. There is no lymphadenopathy. Trachea central. LUNGS: Lungs are clear to auscultation percussion, without any rhonchi rales or wheezing. THERE IS NO CHEST WALL TENDERNESS. Heart: S1, S2 heard normally. There is no S3 gallop. There is no S4 gallop. There is systolic murmur left sternal border and apex. Murmur of mitral regurgitation heard. . There is no rub. ABDOMEN: Soft. Nontender. There is no hepatosplenomegaly. All sounds are well heard. There is no tender areas of masses. EXTREMITIES: Femorals are diminished. There is no femoral bruits. Leg pulses are diminished. There is no pedal edema. There is diffuse swelling of the right upper extremity. There is no DVT or cellulitis. There is no cyanosis or clubbing. There is no calf tenderness. MULTISKILL OPERATOR: The patient is conscious awake alert oriented x3 with no focal deficits. PSYCHIATRIC: The patient judgment are intact his affect is normal. Abnormal - 24 hr 10/14/19 10/14/19 05:45 11:09 WBC 10.7 H RBC 3.45 L Hgb 10.5 L Hct 30.7 L RDW 15.5 H Seg Neuts % (Manual) 81 H Lymphocytes % (Manual) 7 L Abs Neuts (Manual) 9.0 H Sodium 134.1 L Potassium 5.5 H Chloride 92 L BUN 59 H Creatinine 12.91 H Est GFR ( Amer) 5 L Est GFR (MDRD) Non-Af 4 L Glucose 111 H Abdomen/Pelvis CT 10/10/19 00:00 IMPRESSION: Prominent axillary nodes. Not definitely pathologic. Indeterminate nodes in the mediastinum. Solid right renal mass measuring over 6 cm. Atrophic kidneys. Probable Schmorl's noted L1. Well-circumscribed along the superior endplate without extension into the pedicles. Chest CT 10/10/19 00:00 IMPRESSION: Prominent axillary nodes. Not definitely pathologic. Indeterminate nodes in the mediastinum. Solid right renal mass measuring over 6 cm. Atrophic kidneys. Probable Schmorl's noted L1. Well-circumscribed along the superior endplate without extension into the pedicles. Lumbar Spine CT 10/10/19 03:49 IMPRESSION: 1. Solid-appearing mass at the upper pole of the right kidney, which has increased in size compared to the prior study. This is most compatible with malignancy. Recommend correlation with clinical history. 2. New lytic lesion within the L1 vertebral body, suggesting metastatic disease. 3. No acute fracture. Lumbar Spine MRI 10/10/19 06:22 IMPRESSION: 1. HOMOGENEOUS ROUND LESION IN THE SUPERIOR BODY OF THE L1 VERTEBRAL BODY DESCRIBED. THIS IS CONCERNING FOR A METASTATIC LESION. AN ATYPICAL SCHMORL'S NODE COULD BE ANOTHER POSSIBILITY BUT LESS LIKELY. MAY CONSIDER BONE SCAN TO EVALUATE THE FINDING IN THE L1 VERTEBRAL BODY AND TO DETERMINE IF THERE ARE ANY OTHER SKELETAL LESIONS IN THE REMAINDER OF THE BODY. 2. MILD CHRONIC DEGENERATIVE CHANGES DESCRIBED. NO SIGNIFICANT STENOSIS OR IMPINGEMENT. 3. HETEROGENOUS MASS IN THE RIGHT KIDNEY, NOT COMPLETELY IMAGED. Thoracic Spine MRI 10/10/19 06:22 IMPRESSION: NORMAL MRI THORACIC SPINE. NO EVIDENCE OF THORACIC VERTEBRAL METASTASIS. IMPRESSION/RECOMMENDATION: 1. 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 Patient for dialysis of the right leg lesion. Hence the patient's Eliquis has been discontinued. 2. Recent recurrent atrial flutter with rapid ventricular response. Patient back to sinus rhythm post IV amiodarone drip which is been discontinued. Will increase the patient's amiodarone to 200 mg p.o. twice daily. Patient has history of proximal small atrial flutter. 3. Hyperkalemia in a patient with end-stage renal disease. The patient is gett ing dialyzed. 4. . History of congestive heart failure secondary to volume overload during prior admission. At present compensated. 5. Hypertension: Well-controlled continue current medications. 6. END STAGE RENAL DISEASE: On hemodialysis. Patient scheduled for hemodialysis tomorrow. Would recommend discontinue the patient on current medications after dialysis. 7. History of hyperlipidemia. Continue statins 8. The patient's cardiac status is very stable. If the patient needs surgical removal of the renal mass the patient will be an acceptable cardiac risk for this procedure. 9. Murmur of mitral regurgitation: Mild mitral regurgitation by echocardiographi 10. Hyperkalemia: Nephrology on the case. 11. Moderate pulmonary hypertension. 12. Positive blood cultures patient being treated for infection. Hence biopsy is on hold. Medication reviewed. Amiodarone dosage increased. Medical regimen and management plan discussed with the attending physician and the consultants on the case. Medical decision making is of high complexity. 40 minutes spent as patient with more than 50% time spent in direct patient care. Will follow.
[2019-10-14] MEDS: FAMOTIDINE 20 MG TABLET PO SCH (21:08)
[2019-10-14] MEDS: AMIODARONE HCL 200 MG TABLET PO SCH (21:08)
--- NOTE | 2019-10-14 21:11 | PDOC PROGRESS REPORT ---
Subjective Progress Note for:: 10/14/19 Subjective:: Patient with MRSA bacteremia, started on vancomycin, patient seen at the bedside, he was supposed to undergo needle biopsy of the bone lesion of the lumbar spine but because he is bacteremic the procedure is canceled Reason For Visit: RENAL MASS/ESRD/BACK PAIN Physical Exam Vital Signs: Temp Pulse Resp BP Pulse Ox 99.0 F 102 H 20 147/91 H 97 10/14/19 20:17 10/14/19 20:17 10/14/19 20:17 10/14/19 20:17 10/14/19 20:17 Intake & Output 10/13/19 10/14/19 10/15/19 06:59 06:59 06:59 Intake Total 170 1239 1332 Output Total 0 0 0 Balance 170 1239 1332 Weight 99.5 kg General appearance: PRESENT: no acute distress Eye exam: PRESENT: PERRLA Respiratory exam: PRESENT: clear to auscultation dave Cardiovascular exam: PRESENT: +S1, +S2 GI/Abdominal exam: PRESENT: soft Neurological exam: PRESENT: alert, CN II-XII grossly intact Results Laboratory Results: 10/14/19 05:45 10/14/19 11:09 10/14/19 10/14/19 05:45 11:09 WBC 10.7 H RBC 3.45 L Hgb 10.5 L Hct 30.7 L MCV 89 MCH 30.5 MCHC 34.3 RDW 15.5 H Plt Count 188 Seg Neutrophils % Not Reportable Sodium 134.1 L Potassium 5.5 H Chloride 92 L Carbon Dioxide 27 Anion Gap 15 BUN 59 H Creatinine 12.91 H Est GFR ( Amer) 5 L Glucose 111 H Calcium 9.0 10/13/19 12:12 Blood Blood Culture (PCR) - Final Staphylococcus Aureus 10/13/19 13:34 Blood Blood Culture (PCR) - Final Staphylococcus Aureus 10/09/19 10/09/19 23:16 23:16 Creatine Kinase 121 CK-MB (CK-2) 0.57 Troponin I 0.112 Impressions: Abdomen/Pelvis CT 10/10/19 00:00 IMPRESSION: Prominent axillary nodes. Not definitely pathologic. Indeterminate nodes in the mediastinum. Solid right renal mass measuring over 6 cm. Atrophic kidneys. Probable Schmorl's noted L1. Well-circumscribed along the superior endplate without extension into the pedicles. Chest CT 10/10/19 00:00 IMPRESSION: Prominent axillary nodes. Not definitely pathologic. Indeterminate nodes in the mediastinum. Solid right renal mass measuring over 6 cm. Atrophic kidneys. Probable Schmorl's noted L1. Well-circumscribed along the superior endplate without extension into the pedicles. Lumbar Spine CT 10/10/19 03:49 IMPRESSION: 1. Solid-appearing mass at the upper pole of the right kidney, which has increased in size compared to the prior study. This is most compatible with malignancy. Recommend correlation with clinical history. 2. New lytic lesion within the L1 vertebral body, suggesting metastatic disease. 3. No acute fracture. Lumbar Spine MRI 10/10/19 06:22 IMPRESSION: 1. HOMOGENEOUS ROUND LESION IN THE SUPERIOR BODY OF THE L1 VERTEBRAL BODY DESCRIBED. THIS IS CONCERNING FOR A METASTATIC LESION. AN ATYPICAL SCHMORL'S NODE COULD BE ANOTHER POSSIBILITY BUT LESS LIKELY. MAY CONSIDER BONE SCAN TO EVALUATE THE FINDING IN THE L1 VERTEBRAL BODY AND TO DETERMINE IF THERE ARE ANY OTHER SKELETAL LESIONS IN THE REMAINDER OF THE BODY. 2. MILD CHRONIC DEGENERATIVE CHANGES DESCRIBED. NO SIGNIFICANT STENOSIS OR IMPINGEMENT. 3. HETEROGENOUS MASS IN THE RIGHT KIDNEY, NOT COMPLETELY IMAGED. Thoracic Spine MRI 10/10/19 06:22 IMPRESSION: NORMAL MRI THORACIC SPINE. NO EVIDENCE OF THORACIC VERTEBRAL METASTASIS. 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 Is this a current diagnosis for this admission?: Yes Plan: Per oncology (2) End stage renal disease on dialysis Is this a current diagnosis for this admission?: Yes Plan: Per nephrology (3) Lytic lesion of bone on x-ray Is this a current diagnosis for this admission?: Yes (4) Atrial flutter Qualifiers: Atrial flutter type: typical Qualified Code(s): I48.3 - Typical atrial flutter Is this a current diagnosis for this admission?: Yes Plan: Per cardiology, presently on amiodarone (5) MRSA (methicillin resistant Staphylococcus aureus) septicemia Is this a current diagnosis for this admission?: Yes Plan: Source is unknown continue vancomycin - Time Time Spent with patient: 35 or more minutes
[2019-10-15] MEDS ORDERED: HEPARIN SOD (PORCINE) 1,000 UNIT/ML 10 ML VIAL IV PRN (05:00)
[2019-10-15 05:49] LABS: HEMATOCRIT 32.9 % (37.9-51.0); MEAN CORPUSCULAR HEMOGLOBIN 30.1 pg (27.0-33.4); MEAN CORPUSCULAR HGB CONC 33.6 g/dL (32.0-36.0); MEAN CORPUSCULAR VOLUME 90 fl (80-97); PLATELET COUNT 210 10^3/uL (150-450); RED BLOOD COUNT 3.68 10^6/uL (4.35-5.55); RED CELL DISTRIBUTION WIDTH 15.8 % (11.5-14.0); WHITE BLOOD COUNT 15.5 10^3/uL (4.0-10.5)
[2019-10-15 05:56] LABS: ANION GAP 19 (5-19); BLOOD UREA NITROGEN 72 mg/dL (7-20); CALCIUM 9.1 mg/dL (8.4-10.2); CARBON DIOXIDE 27 mmol/L (22-30); CHLORIDE 89 mmol/L (98-107); GLUCOSE 102 mg/dL (75-110)
[2019-10-15 06:08] LABS: POTASSIUM 6.6 mmol/L (3.6-5.0)
[2019-10-15 06:25] LABS: ABSOLUTE LYMPHOCYTES# (MANUAL) 1.1 10^3/uL (0.5-4.7); ABSOLUTE MONOCYTES # (MANUAL) 1.1 10^3/uL (0.1-1.4); BAND NEUTROPHILS % (MANUAL) 3 % (3-5); BASOPHILS % (MANUAL) 0 % (0-2); EOSINOPHILS % (MANUAL) 0 % (0-6); LYMPHOCYTES % (MANUAL) 7 % (13-45); MONOCYTES % (MANUAL) 7 % (3-13); SEGMENTED NEUTROPHILS % (MAN) 83 % (42-78); TOTAL CELLS COUNTED 100
[2019-10-15 06:27] LABS: ANISOCYTOSIS SLIGHT; OVALOCYTES SLIGHT; PLATELET COMMENT ADEQUATE; POLYCHROMASIA SLIGHT; TEAR DROP CELLS SLIGHT; TOXIC GRANULATION SLIGHT
[2019-10-15] MEDS ORDERED: SODIUM POLYSTYRENE SULFONATE 15 GM/60 ML PO ONE (06:45)
--- NOTE | 2019-10-15 09:28 | PDOC PROGRESS REPORT ---
Subjective Progress Note for:: 10/15/19 Subjective:: Patient still having intermittent bouts of confusion Reason For Visit: RENAL MASS/ESRD/BACK PAIN Physical Exam Vital Signs: Temp Pulse Resp BP Pulse Ox 98.4 F 96 16 119/67 96 10/15/19 04:06 10/15/19 07:00 10/15/19 04:06 10/15/19 04:06 10/15/19 04:06 Intake & Output 10/14/19 10/15/19 10/16/19 06:59 06:59 06:59 Intake Total 1239 1332 Output Total 0 0 Balance 1239 1332 Weight 99.5 kg 99.3 kg General appearance: PRESENT: no acute distress, well-developed, well-nourished Head exam: PRESENT: atraumatic, normocephalic Eye exam: PRESENT: conjunctiva pink, EOMI, PERRLA. ABSENT: scleral icterus Ear exam: PRESENT: normal external ear exam Mouth exam: PRESENT: moist, tongue midline Neck exam: ABSENT: carotid bruit, JVD, lymphadenopathy, thyromegaly Respiratory exam: PRESENT: clear to auscultation dave. ABSENT: rales, rhonchi, wheezes Cardiovascular exam: PRESENT: RRR. ABSENT: diastolic murmur, rubs, systolic murmur Pulses: PRESENT: normal dorsalis pedis pul Vascular exam: PRESENT: normal capillary refill GI/Abdominal exam: PRESENT: normal bowel sounds, soft. ABSENT: distended, guarding, mass, organolmegaly, rebound, tenderness Rectal exam: PRESENT: deferred Extremities exam: PRESENT: full ROM. ABSENT: calf tenderness, clubbing, pedal edema Neurological exam: PRESENT: alert, awake, oriented to person, oriented to place, oriented to time, oriented to situation, CN II-XII grossly intact. ABSENT: motor sensory deficit Psychiatric exam: PRESENT: appropriate affect, normal mood. ABSENT: homicidal ideation, suicidal ideation Skin exam: PRESENT: dry, intact, warm. ABSENT: cyanosis, rash Results Laboratory Results: 10/15/19 04:30 10/15/19 04:31 10/14/19 10/15/19 10/15/19 11:09 04:30 04:31 WBC 15.5 H RBC 3.68 L Hgb 11.0 L Hct 32.9 L MCV 90 MCH 30.1 MCHC 33.6 RDW 15.8 H Plt Count 210 Seg Neutrophils % Not Reportable Sodium 134.1 L 134.5 L Potassium 5.5 H 6.6 H* D Chloride 92 L 89 L Carbon Dioxide 27 27 Anion Gap 15 19 BUN 59 H 72 H Creatinine 12.91 H 15.08 H Est GFR ( Amer) 5 L 4 L Glucose 111 H 102 Calcium 9.0 9.1 10/13/19 12:12 Blood Blood Culture (PCR) - Final Staphylococcus Aureus 10/13/19 13:34 Blood Blood Culture (PCR) - Final Staphylococcus Aureus 10/09/19 10/09/19 23:16 23:16 Creatine Kinase 121 CK-MB (CK-2) 0.57 Troponin I 0.112 Impressions: Abdomen/Pelvis CT 10/10/19 00:00 IMPRESSION: Prominent axillary nodes. Not definitely pathologic. Indeterminate nodes in the mediastinum. Solid right renal mass measuring over 6 cm. Atrophic kidneys. Probable Schmorl's noted L1. Well-circumscribed along the superior endplate without extension into the pedicles. Chest CT 10/10/19 00:00 IMPRESSION: Prominent axillary nodes. Not definitely pathologic. Indeterminate nodes in the mediastinum. Solid right renal mass measuring over 6 cm. Atrophic kidneys. Probable Schmorl's noted L1. Well-circumscribed along the superior endplate without extension into the pedicles. Lumbar Spine CT 10/10/19 03:49 IMPRESSION: 1. Solid-appearing mass at the upper pole of the right kidney, which has increased in size compared to the prior study. This is most compatible with malignancy. Recommend correlation with clinical history. 2. New lytic lesion within the L1 vertebral body, suggesting metastatic disease. 3. No acute fracture. Lumbar Spine MRI 10/10/19 06:22 IMPRESSION: 1. HOMOGENEOUS ROUND LESION IN THE SUPERIOR BODY OF THE L1 VERTEBRAL BODY DESCRIBED. THIS IS CONCERNING FOR A METASTATIC LESION. AN ATYPICAL SCHMORL'S NODE COULD BE ANOTHER POSSIBILITY BUT LESS LIKELY. MAY CONSIDER BONE SCAN TO EVALUATE THE FINDING IN THE L1 VERTEBRAL BODY AND TO DETERMINE IF THERE ARE ANY OTHER SKELETAL LESIONS IN THE REMAINDER OF THE BODY. 2. MILD CHRONIC DEGENERATIVE CHANGES DESCRIBED. NO SIGNIFICANT STENOSIS OR IMPINGEMENT. 3. HETEROGENOUS MASS IN THE RIGHT KIDNEY, NOT COMPLETELY IMAGED. Thoracic Spine MRI 10/10/19 06:22 IMPRESSION: NORMAL MRI THORACIC SPINE. NO EVIDENCE OF THORACIC VERTEBRAL METASTASIS. Assessment & Plan - Diagnosis (1) Lytic lesion of bone on x-ray Is this a current diagnosis for this admission?: Yes Plan: Plan for procedure next week most likely (2) Renal mass, right Is this a current diagnosis for this admission?: Yes Plan: Plan as above (3) Pain, neoplasm-related Is this a current diagnosis for this admission?: Yes Plan: Pain controlled - Time Time Spent with patient: 15-24 minutes
--- NOTE | 2019-10-15 10:16 | PDOC PROGRESS REPORT ---
Subjective Progress Note for:: 10/15/19 Reason For Visit: Patient seen on dialysis today. He is undergoing dialysis without any issues. Vital signs are stable. Labs and medications were reviewed. Potassium remains high and should respond to dialysis. He denies history of fever or chills. No complaints of any pain or discharge around the left IJ catheter exit site. Dialysis orders were reviewed with the treating dialysis nurse. He had still has intermittent bouts of back pain and is position dependent. Physical Exam Vital Signs: Temp Pulse Resp BP Pulse Ox 98.4 F 96 16 119/67 96 10/15/19 04:06 10/15/19 07:00 10/15/19 04:06 10/15/19 04:06 10/15/19 04:06 Intake & Output 10/14/19 10/15/19 10/16/19 06:59 06:59 06:59 Intake Total 1239 1332 Output Total 0 0 Balance 1239 1332 Weight 99.5 kg 99.3 kg General appearance: PRESENT: no acute distress Respiratory exam: PRESENT: clear to auscultation dave. ABSENT: crackles Cardiovascular exam: PRESENT: +S1, +S2 GI/Abdominal exam: PRESENT: normal bowel sounds, soft. ABSENT: organomegaly, tenderness Neurological exam: PRESENT: alert, awake, oriented to person, oriented to place Psychiatric exam: PRESENT: appropriate affect Skin exam: PRESENT: other - The left IJ catheter was examined. There is no signs of discharge or redness around the exit site. It was nontender around exit site or over the catheter cuff. Results Laboratory Results: 10/15/19 04:30 10/15/19 04:31 10/14/19 10/15/19 10/15/19 11:09 04:30 04:31 WBC 15.5 H RBC 3.68 L Hgb 11.0 L Hct 32.9 L MCV 90 MCH 30.1 MCHC 33.6 RDW 15.8 H Plt Count 210 Seg Neutrophils % Not Reportable Sodium 134.1 L 134.5 L Potassium 5.5 H 6.6 H* D Chloride 92 L 89 L Carbon Dioxide 27 27 Anion Gap 15 19 BUN 59 H 72 H Creatinine 12.91 H 15.08 H Est GFR ( Amer) 5 L 4 L Glucose 111 H 102 Calcium 9.0 9.1 10/13/19 13:34 Blood Blood Culture (PCR) - Final Staphylococcus Aureus 10/13/19 12:12 Blood Blood Culture (PCR) - Final Staphylococcus Aureus 10/09/19 10/09/19 23:16 23:16 Creatine Kinase 121 CK-MB (CK-2) 0.57 Troponin I 0.112 Impressions: Abdomen/Pelvis CT 10/10/19 00:00 IMPRESSION: Prominent axillary nodes. Not definitely pathologic. Indeterminate nodes in the mediastinum. Solid right renal mass measuring over 6 cm. Atrophic kidneys. Probable Schmorl's noted L1. Well-circumscribed along the superior endplate without extension into the pedicles. Chest CT 10/10/19 00:00 IMPRESSION: Prominent axillary nodes. Not definitely pathologic. Indeterminate nodes in the mediastinum. Solid right renal mass measuring over 6 cm. Atrophic kidneys. Probable Schmorl's noted L1. Well-circumscribed along the superior endplate without extension into the pedicles. Lumbar Spine CT 10/10/19 03:49 IMPRESSION: 1. Solid-appearing mass at the upper pole of the right kidney, which has increased in size compared to the prior study. This is most compatible with malignancy. Recommend correlation with clinical history. 2. New lytic lesion within the L1 vertebral body, suggesting metastatic disease. 3. No acute fracture. Lumbar Spine MRI 10/10/19 06:22 IMPRESSION: 1. HOMOGENEOUS ROUND LESION IN THE SUPERIOR BODY OF THE L1 VERTEBRAL BODY DESCRIBED. THIS IS CONCERNING FOR A METASTATIC LESION. AN ATYPICAL SCHMORL'S NODE COULD BE ANOTHER POSSIBILITY BUT LESS LIKELY. MAY CONSIDER BONE SCAN TO EVALUATE THE FINDING IN THE L1 VERTEBRAL BODY AND TO DETERMINE IF THERE ARE ANY OTHER SKELETAL LESIONS IN THE REMAINDER OF THE BODY. 2. MILD CHRONIC DEGENERATIVE CHANGES DESCRIBED. NO SIGNIFICANT STENOSIS OR IMPINGEMENT. 3. HETEROGENOUS MASS IN THE RIGHT KIDNEY, NOT COMPLETELY IMAGED. Thoracic Spine MRI 10/10/19 06:22 IMPRESSION: NORMAL MRI THORACIC SPINE. NO EVIDENCE OF THORACIC VERTEBRAL METASTASIS. Assessment & Plan - Diagnosis (1) End-stage renal disease on hemodialysis Is this a current diagnosis for this admission?: Yes Plan: Patient currently undergoing dialysis. Vital signs are stable. Dialysis being supervised to ensure safe and smooth procedure. Plan to remove 1 to 1.5 L of fluid as tolerated. Dialysis orders were reviewed with the treating dialysis nurse. Catheter was examined.. (2) Lower back pain Qualifiers: Chronicity: acute Back pain laterality: bilateral Sciatica presence: without sciatica Qualified Code(s): M54.5 - Low back pain Is this a current diagnosis for this admission?: Yes Plan: Patient is got renal mass along with a homogeneous bone lesion is L1. This is going to be explored and follow-up with kyphoplasty by Dr. Billings/pain management. The procedure has been postponed to next week since he is now bacteremic. Pain management currently by primary care. (3) Renal mass, right Is this a current diagnosis for this admission?: Yes Plan: Work-up as mentioned earlier being managed by heme oncologist and pain management physicians. (4) Hyperkalemia Is this a current diagnosis for this admission?: Yes Plan: Should respond to dialysis. Besides that we will start him on Veltassa daily. (5) Hypertension Plan: Blood pressures better. Continue on current plans. (6) Paroxysmal atrial flutter Plan: Presently rate controlled. Management as per cardiology. (7) Bone lesion Plan: L1 lesion that is being explored for possible benign versus metastatic lesion from right kidney mass. Plans as outlined earlier. (8) Staphylococcus aureus bacteremia Plan: Final blood culture results are pending. Likely MRSA. Dosed with gram of vancomycin. Plan to continue vancomycin postdialysis. Do not see any signs of obvious exit site infection of the catheter. Patient is not showing any hemodynamic instability at the moment so we will leave the catheter alone.Repeat blood cultures on Friday and if he is still viral then he should be cleared to undergo the surgical procedure by Dr. Billings.
[2019-10-15] MEDS: OXYCODONE HCL IR 5 MG TABLET PO PRN ×2 (11:25→19:36)
[2019-10-15] MEDS: DOCUSATE SODIUM 100 MG CAPSULE PO SCH (11:25)
[2019-10-15] MEDS: AMIODARONE HCL 200 MG TABLET PO SCH ×2 (11:25→21:34)
[2019-10-15] MEDS: MORPHINE SULFATE 10 MG/ML INJ IV PRN (12:59)
[2019-10-15] MEDS: VANCOMYCIN HCL 1,500 MG in DEXTROSE 5%-WATER 250 ML IV SCH (19:09)
[2019-10-15] MEDS: PATIROMER 8.4 GM SUSP PACKET PO SCH (19:10)
--- NOTE | 2019-10-15 21:33 | PDOC PROGRESS REPORT ---
Subjective Progress Note for:: 10/15/19 Subjective:: Patient was seen by the bedside, family in the room I explained the diagnosis and the plan of care for the patient and his family. He has MRSA bacteremia on vancomycin postdialysis he has right most likely kidney cancer most likely bone metastasis, he was supposed to have a biopsy of the lumbar bone but for staph aureus bacteremia this was postponed until blood culture is clear of bacteremia presently on antibiotic he had episode of confusion today patient is presently very lucid. Reason For Visit: RENAL MASS/ESRD/BACK PAIN Physical Exam Vital Signs: Temp Pulse Resp BP Pulse Ox 97.4 F 102 H 16 123/71 100 10/15/19 19:46 10/15/19 19:46 10/15/19 19:46 10/15/19 19:46 10/15/19 19:46 Intake & Output 10/14/19 10/15/19 10/16/19 06:59 06:59 06:59 Intake Total 1239 1002 200 Output Total 0 0 900 Balance 1239 1002 -700 Weight 99.5 kg 99.3 kg 99.3 kg General appearance: PRESENT: no acute distress Eye exam: PRESENT: PERRLA Respiratory exam: PRESENT: clear to auscultation dave Cardiovascular exam: PRESENT: +S1, +S2 GI/Abdominal exam: PRESENT: soft Neurological exam: PRESENT: alert Results Laboratory Results: 10/15/19 04:30 10/15/19 04:31 10/15/19 10/15/19 04:30 04:31 WBC 15.5 H RBC 3.68 L Hgb 11.0 L Hct 32.9 L MCV 90 MCH 30.1 MCHC 33.6 RDW 15.8 H Plt Count 210 Seg Neutrophils % Not Reportable Sodium 134.5 L Potassium 6.6 H* D Chloride 89 L Carbon Dioxide 27 Anion Gap 19 BUN 72 H Creatinine 15.08 H Est GFR ( Amer) 4 L Glucose 102 Calcium 9.1 10/13/19 13:34 Blood Blood Culture (PCR) - Final Staphylococcus Aureus 10/13/19 12:12 Blood Blood Culture (PCR) - Final Staphylococcus Aureus 10/09/19 10/09/19 23:16 23:16 Creatine Kinase 121 CK-MB (CK-2) 0.57 Troponin I 0.112 Impressions: Abdomen/Pelvis CT 10/10/19 00:00 IMPRESSION: Prominent axillary nodes. Not definitely pathologic. Indeterminate nodes in the mediastinum. Solid right renal mass measuring over 6 cm. Atrophic kidneys. Probable Schmorl's noted L1. Well-circumscribed along the superior endplate without extension into the pedicles. Chest CT 10/10/19 00:00 IMPRESSION: Prominent axillary nodes. Not definitely pathologic. Indeterminate nodes in the mediastinum. Solid right renal mass measuring over 6 cm. Atrophic kidneys. Probable Schmorl's noted L1. Well-circumscribed along the superior endplate without extension into the pedicles. Lumbar Spine CT 10/10/19 03:49 IMPRESSION: 1. Solid-appearing mass at the upper pole of the right kidney, which has increased in size compared to the prior study. This is most compatible with malignancy. Recommend correlation with clinical history. 2. New lytic lesion within the L1 vertebral body, suggesting metastatic disease. 3. No acute fracture. Lumbar Spine MRI 10/10/19 06:22 IMPRESSION: 1. HOMOGENEOUS ROUND LESION IN THE SUPERIOR BODY OF THE L1 VERTEBRAL BODY DESCRIBED. THIS IS CONCERNING FOR A METASTATIC LESION. AN ATYPICAL SCHMORL'S NODE COULD BE ANOTHER POSSIBILITY BUT LESS LIKELY. MAY CONSIDER BONE SCAN TO EVALUATE THE FINDING IN THE L1 VERTEBRAL BODY AND TO DETERMINE IF THERE ARE ANY OTHER SKELETAL LESIONS IN THE REMAINDER OF THE BODY. 2. MILD CHRONIC DEGENERATIVE CHANGES DESCRIBED. NO SIGNIFICANT STENOSIS OR IMPINGEMENT. 3. HETEROGENOUS MASS IN THE RIGHT KIDNEY, NOT COMPLETELY IMAGED. Thoracic Spine MRI 10/10/19 06:22 IMPRESSION: NORMAL MRI THORACIC SPINE. NO EVIDENCE OF THORACIC VERTEBRAL METASTASIS. 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 Is this a current diagnosis for this admission?: Yes Plan: Per oncology (2) End stage renal disease on dialysis Is this a current diagnosis for this admission?: Yes Plan: Per nephrology (3) Lytic lesion of bone on x-ray Is this a current diagnosis for this admission?: Yes (4) Atrial flutter Qualifiers: Atrial flutter type: typical Qualified Code(s): I48.3 - Typical atrial flutter Is this a current diagnosis for this admission?: Yes Plan: Per cardiology, presently on amiodarone (5) MRSA (methicillin resistant Staphylococcus aureus) septicemia Is this a current diagnosis for this admission?: Yes Plan: Continue IV antibiotic - Time Time Spent with patient: 25-34 minutes
[2019-10-15] MEDS: FAMOTIDINE 20 MG TABLET PO SCH (21:34)
--- NOTE | 2019-10-15 22:09 | Progress Note ---
Provider Note Provider Note: CARDIOLOGY PROGRESS NOTE by Dr. Amanda Dumont on 10/15/2019. SUBJECTIVE: The patient underwent dialysis today. As per nursing is off-and-on confused. But when I spoke to him he is awake alert oriented x3. He remains in sinus tachycardia with no recurrence of atrial flutter. He still has pain in his right flank. There is no ventricular arrhythmia seen on the monitor. He is on amiodarone 200 mg p.o. twice daily. There is no chest pain or discomfort. There is no PND orthopnea or leg edema. There is no TIA or CVA symptoms. PHYSICAL EXAMINATION: The patient is mild to moderately obese. In no acute distress. Selected Entries 10/15/19 10/15/19 10/15/19 13:38 15:02 16:00 Temperature 99.1 F Heart Rate ( 103 Monitors) Respiratory 18 Rate Blood Pressure 123/59 L Blood Pressure 80 Mean BP Location Left Arm BP Position Supine O2 Sat by Pulse 87 L Oximetry Oxygen Delivery Nasal Cannula Method ( includes room air) Fraction of 28 Inspired Oxygen (FIO2) Oxygen Flow 2 Rate Oxygen Delivery Room Air Method 10/15/19 17:00 Temperature Heart Rate ( 99 Monitors) Respiratory Rate Blood Pressure Blood Pressure Mean BP Location BP Position O2 Sat by Pulse Oximetry 96 Oxygen Delivery Method ( includes room air) Fraction of Inspired Oxygen (FIO2) Oxygen Flow Rate 2 L Oxygen Delivery Method Nasal cannula HEAD: Is atraumatic and normocephalic. EYES: Pupils are equal round regular reactive to light accommodation. External ocular movements are normal. There is no conjunctival pallor. There is no scleral icterus. EARS: Tympanic membranes are intact. External auditory canals are clear. NOSE: There is no deviated nasal septum. There is no inflammation of the nasal mucous membrane. MOUTH: Mucous membranes of mouth are moist. Tongue is moist. There is no ulcers in the mouth. There is no bleeding from the gums. THROAT: There is no redness of the oropharynx. There is no exudates. SKIN: There is no skin rashes. There is no petechia or ecchymosis. There is no skin lesions. NECK: Is supple. There is no JVD. Carotids equal there is no bruit. There is no lymphadenopathy. Trachea central. LUNGS: Lungs are clear to auscultation percussion, without any rhonchi rales or wheezing. THERE IS NO CHEST WALL TENDERNESS. Heart: S1, S2 heard normally. There is no S3 gallop. There is no S4 gallop. There is systolic murmur left sternal border and apex. Murmur of mitral regurgitation heard. . There is no rub. ABDOMEN: Soft. Nontender. There is no hepatosplenomegaly. All sounds are well heard. There is no tender areas of masses. EXTREMITIES: Femorals are diminished. There is no femoral bruits. Leg pulses are diminished. There is no pedal edema. There is diffuse swelling of the right upper extremity. There is no DVT or cellulitis. There is no cyanosis or clubbing. There is no calf tenderness. SUPERVISOR PRINT LINE: The patient is conscious awake alert oriented x3 with no focal deficits. PSYCHIATRIC: The pa tient judgment are intact his affect is normal. Abdomen/Pelvis CT 10/10/19 00:00 IMPRESSION: Prominent axillary nodes. Not definitely pathologic. Indeterminate nodes in the mediastinum. Solid right renal mass measuring over 6 cm. Atrophic kidneys. Probable Schmorl's noted L1. Well-circumscribed along the superior endplate without extension into the pedicles. Chest CT 10/10/19 00:00 IMPRESSION: Prominent axillary nodes. Not definitely pathologic. Indeterminate nodes in the mediastinum. Solid right renal mass measuring over 6 cm. Atrophic kidneys. Probable Schmorl's noted L1. Well-circumscribed along the superior endplate without extension into the pedicles. Lumbar Spine CT 10/10/19 03:49 IMPRESSION: 1. Solid-appearing mass at the upper pole of the right kidney, which has increased in size compared to the prior study. This is most compatible with malignancy. Recommend correlation with clinical history. 2. New lytic lesion within the L1 vertebral body, suggesting metastatic disease. 3. No acute fracture. Lumbar Spine MRI 10/10/19 06:22 IMPRESSION: 1. HOMOGENEOUS ROUND LESION IN THE SUPERIOR BODY OF THE L1 VERTEBRAL BODY DESCRIBED. THIS IS CONCERNING FOR A METASTATIC LESION. AN ATYPICAL SCHMORL'S NODE COULD BE ANOTHER POSSIBILITY BUT LESS LIKELY. MAY CONSIDER BONE SCAN TO EVALUATE THE FINDING IN THE L1 VERTEBRAL BODY AND TO DETERMINE IF THERE ARE ANY OTHER SKELETAL LESIONS IN THE REMAINDER OF THE BODY. 2. MILD CHRONIC DEGENERATIVE CHANGES DESCRIBED. NO SIGNIFICANT STENOSIS OR IMPINGEMENT. 3. HETEROGENOUS MASS IN THE RIGHT KIDNEY, NOT COMPLETELY IMAGED. Thoracic Spine MRI 10/10/19 06:22 IMPRESSION: NORMAL MRI THORACIC SPINE. NO EVIDENCE OF THORACIC VERTEBRAL METASTASIS. Labs- All tests 24 hr 10/15/19 10/15/19 04:30 04:31 WBC 15.5 H RBC 3.68 L Hgb 11.0 L Hct 32.9 L MCV 90 MCH 30.1 MCHC 33.6 RDW 15.8 H Plt Count 210 Lymph % (Auto) Not Reportable [place] % (Auto) Not Reportable Eos % (Auto) Not Reportable Baso % (Auto) Not Reportable Absolute Neuts (auto) Not Reportable Absolute Lymphs (auto) Not Reportable Absolute Monos (auto) Not Reportable Absolute Eos (auto) Not Reportable Absolute Basos (auto) Not Reportable Total Counted 100 Seg Neutrophils % Not Reportable Seg Neuts % (Manual) 83 H Band Neutrophils % 3 Lymphocytes % (Manual) 7 L Monocytes % (Manual) 7 Eosinophils % (Manual) 0 Basophils % (Manual) 0 Abs Neuts (Manual) 13.3 H Abs Lymphs (Manual) 1.1 Abs Monocytes (Manual) 1.1 Absolute Eos (Manual) 0.0 Abs Basophils (Manual) 0.0 Toxic Granulation SLIGHT Dohle Bodies PRESENT Platelet Comment ADEQUATE Polychromasia SLIGHT Anisocytosis SLIGHT Tear Drop Cells SLIGHT Ovalocytes SLIGHT Sodium 134.5 L Potassium 6.6 H* D Chloride 89 L Carbon Dioxide 27 Anion Gap 19 BUN 72 H Creatinine 15.08 H Est GFR ( Amer) 4 L Est GFR (MDRD) Non-Af 3 L Glucose 102 Calcium 9.1 IMPRESSION/RECOMMENDATION: 1. 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 Patient for dialysis of the right leg lesion. Hence the patient's Eliquis has been discontinued. 2. Recent recurrent atrial flutter with rapid ventricular response. Patient back to sinus rhythm post IV amiodarone drip which is been discontinued. Will increase the patient's amiodarone to 200 mg p.o. twice daily. Patient has history of proximal small atrial flutter. 3. Hyperkalemia in a patient with end-stage renal disease. The patient is getting dialyzed. 4. . History of congestive heart failure secondary to volume overload during prior admission. At present compensated. 5. Hypertension: Well-controlled continue current medications. 6. END STAGE RENAL DISEASE: On hemodialysis. Patient scheduled for hemodialysis tomorrow. Would recommend discontinue the patient on current medications after dialysis. 7. History of hyperlipidemia. Continue statins 8. The patient's cardiac status is very stable. If the patient needs surgical removal of the renal mass the patient will be an acceptable cardiac risk for this procedure. 9. Murmur of mitral regurgitation: Mild mitral regurgitation by echocardiographi 10. Hyperkalemia: Nephrology on the case. 11. Moderate pulmonary hypertension. 12. Positive blood cultures patient being treated for infection. Hence biopsy is on hold. Medications reviewed. Medical regimen and management plan discussed with attending physician. Medical decision making is of moderate complexity. 35 minutes spent on the patient more than 50% of time spent in direct patient care. Will follow.
[2019-10-16 07:27] LABS: ANION GAP 13 (5-19); BLOOD UREA NITROGEN 78 mg/dL (7-20); CALCIUM 9.2 mg/dL (8.4-10.2); CARBON DIOXIDE 28 mmol/L (22-30); CHLORIDE 93 mmol/L (98-107); GLUCOSE 118 mg/dL (75-110); POTASSIUM 5.6 mmol/L (3.6-5.0)
[2019-10-16] MEDS: MORPHINE SULFATE 10 MG/ML INJ IV PRN (07:28)
[2019-10-16] MEDS: OXYCODONE HCL IR 5 MG TABLET PO PRN (09:05)
[2019-10-16] MEDS: AMIODARONE HCL 200 MG TABLET PO SCH ×2 (09:06→22:06)
[2019-10-16] MEDS: DOCUSATE SODIUM 100 MG CAPSULE PO SCH (09:06)
--- NOTE | 2019-10-16 09:42 | PDOC PROGRESS REPORT ---
Subjective Progress Note for:: 10/16/19 Subjective:: Still having bouts of confusion and pain Reason For Visit: RENAL MASS/ESRD/BACK PAIN Physical Exam Vital Signs: Temp Pulse Resp BP Pulse Ox 98.7 F 98 20 135/56 H 99 10/16/19 03:27 10/16/19 07:00 10/16/19 03:27 10/16/19 03:27 10/16/19 03:27 Intake & Output 10/15/19 10/16/19 10/17/19 06:59 06:59 06:59 Intake Total 1002 450 Output Total 0 900 Balance 1002 -450 Weight 99.3 kg 92.8 kg General appearance: PRESENT: no acute distress, well-developed, well-nourished Head exam: PRESENT: atraumatic, normocephalic Eye exam: PRESENT: conjunctiva pink, EOMI, PERRLA. ABSENT: scleral icterus Ear exam: PRESENT: normal external ear exam Mouth exam: PRESENT: moist, tongue midline Neck exam: ABSENT: carotid bruit, JVD, lymphadenopathy, thyromegaly Respiratory exam: PRESENT: clear to auscultation dave. ABSENT: rales, rhonchi, wheezes Cardiovascular exam: PRESENT: RRR. ABSENT: diastolic murmur, rubs, systolic murmur Pulses: PRESENT: normal dorsalis pedis pul Vascular exam: PRESENT: normal capillary refill GI/Abdominal exam: PRESENT: normal bowel sounds, soft. ABSENT: distended, guarding, mass, organolmegaly, rebound, tenderness Rectal exam: PRESENT: deferred Extremities exam: PRESENT: full ROM. ABSENT: calf tenderness, clubbing, pedal edema Neurological exam: PRESENT: alert, awake, oriented to person, oriented to place, oriented to time, oriented to situation, CN II-XII grossly intact. ABSENT: motor sensory deficit Psychiatric exam: PRESENT: appropriate affect, normal mood. ABSENT: homicidal ideation, suicidal ideation Skin exam: PRESENT: dry, intact, warm. ABSENT: cyanosis, rash Results Laboratory Results: 10/15/19 04:30 10/16/19 06:50 10/16/19 06:50 Sodium 134.3 L Potassium 5.6 H Chloride 93 L Carbon Dioxide 28 Anion Gap 13 BUN 78 H Creatinine 11.69 H Est GFR ( Amer) 5 L Glucose 118 H Calcium 9.2 10/13/19 13:34 Blood Blood Culture (PCR) - Final Staphylococcus Aureus 10/13/19 12:12 Blood Blood Culture (PCR) - Final Staphylococcus Aureus 10/09/19 10/09/19 23:16 23:16 Creatine Kinase 121 CK-MB (CK-2) 0.57 Troponin I 0.112 Impressions: Abdomen/Pelvis CT 10/10/19 00:00 IMPRESSION: Prominent axillary nodes. Not definitely pathologic. Indeterminate nodes in the mediastinum. Solid right renal mass measuring over 6 cm. Atrophic kidneys. Probable Schmorl's noted L1. Well-circumscribed along the superior endplate without extension into the pedicles. Chest CT 10/10/19 00:00 IMPRESSION: Prominent axillary nodes. Not definitely pathologic. Indeterminate nodes in the mediastinum. Solid right renal mass measuring over 6 cm. Atrophic kidneys. Probable Schmorl's noted L1. Well-circumscribed along the superior endplate without extension into the pedicles. Lumbar Spine CT 10/10/19 03:49 IMPRESSION: 1. Solid-appearing mass at the upper pole of the right kidney, which has increased in size compared to the prior study. This is most compatible with malignancy. Recommend correlation with clinical history. 2. New lytic lesion within the L1 vertebral body, suggesting metastatic disease. 3. No acute fracture. Lumbar Spine MRI 10/10/19 06:22 IMPRESSION: 1. HOMOGENEOUS ROUND LESION IN THE SUPERIOR BODY OF THE L1 VERTEBRAL BODY DESCRIBED. THIS IS CONCERNING FOR A METASTATIC LESION. AN ATYPICAL SCHMORL'S NODE COULD BE ANOTHER POSSIBILITY BUT LESS LIKELY. MAY CONSIDER BONE SCAN TO EVALUATE THE FINDING IN THE L1 VERTEBRAL BODY AND TO DETERMINE IF THERE ARE ANY OTHER SKELETAL LESIONS IN THE REMAINDER OF THE BODY. 2. MILD CHRONIC DEGENERATIVE CHANGES DESCRIBED. NO SIGNIFICANT STENOSIS OR IMPINGEMENT. 3. HETEROGENOUS MASS IN THE RIGHT KIDNEY, NOT COMPLETELY IMAGED. Thoracic Spine MRI 10/10/19 06:22 IMPRESSION: NORMAL MRI THORACIC SPINE. NO EVIDENCE OF THORACIC VERTEBRAL METASTASIS. Assessment & Plan - Diagnosis (1) Lytic lesion of bone on x-ray Is this a current diagnosis for this admission?: Yes Plan: Plan for biopsy once we are sure that the infection is cleared (2) Renal mass, right Is this a current diagnosis for this admission?: Yes Plan: Plan as above (3) Pain, neoplasm-related Is this a current diagnosis for this admission?: Yes Plan: Continue with IV morphine as needed - Time Time Spent with patient: 15-24 minutes
[2019-10-16 11:28] LABS: ARTERIAL BLOOD BASE EXCESS 4.3 mmol/L; ARTERIAL BLOOD H2CO3 1.54 mmol/L (1.05-1.35); ARTERIAL BLOOD HCO3 30.2 mmol/L (20-24); ARTERIAL BLOOD O2 SATURATION 63.4 % (94-98); ARTERIAL BLOOD PH 7.39 (7.35-7.45); ARTERIAL BLOOD TOTAL CO2 31.7 mmol/L (23-27)
[2019-10-16 11:29] LABS: ARTERIAL BLOOD FIO2 100%
[2019-10-16 11:34] LABS: ARTERIAL BLOOD PO2 33.8 mmHg (80-100)
[2019-10-16 12:08] LABS: ARTERIAL BLOOD FIO2 100%; ARTERIAL BLOOD H2CO3 1.29 mmol/L (1.05-1.35); ARTERIAL BLOOD HCO3 25.9 mmol/L (20-24); ARTERIAL BLOOD O2 SATURATION 99.9 % (94-98); ARTERIAL BLOOD PCO2 42.7 mmHg (35-45); ARTERIAL BLOOD TOTAL CO2 27.2 mmol/L (23-27)
--- NOTE | 2019-10-16 12:28 | RADIOLOGY REPORT (SQ) ---
EXAM DESCRIPTION: CHEST SINGLE VIEW COMPLETED DATE/TIME: 10/16/2019 11:02 am REASON FOR STUDY: resp. failure COMPARISON: Chest x-ray 10/06/2019, CT chest 10/10/2019 EXAM PARAMETERS: NUMBER OF VIEWS: One view. TECHNIQUE: Single frontal radiographic view of the chest acquired. RADIATION DOSE: NA LIMITATIONS: None. FINDINGS: LUNGS AND PLEURA: Mild atelectasis at the left lung base. No pneumothorax or sizable pleu ral effusion. MEDIASTINUM AND HILAR STRUCTURES: No masses. Contour normal. HEART AND VASCULAR STRUCTURES: Heart normal in size. Normal vasculature. BONES: No acute findings. HARDWARE: Left-sided central catheter with the tip at the region of the right atrium. Surgical clips at the right axilla. IMPRESSION: Mild atelectasis at left lung base. TECHNICAL DOCUMENTATION: JOB ID: [id number] [employer]- All Rights Reserved Reading location - IP/workstation name: [email or web address]
--- NOTE | 2019-10-16 12:39 | ADVANCED CARE ---
- Diagnosis (1) Neoplasm of uncertain behavior of right kidney Diagnosis Current: Yes (2) End stage renal disease on dialysis Diagnosis Current: Yes (3) Lytic lesion of bone on x-ray Diagnosis Current: Yes (4) Atrial flutter Diagnosis Current: Yes (5) MRSA (methicillin resistant Staphylococcus aureus) septicemia Diagnosis Current: Yes Resuscitation Status: Full Code Discussion: Patient seen by the bedside I discussed with him the options of CODE STATUS, he opted for DNR status, this discussion was from 2 days ago, this is a late entry
--- NOTE | 2019-10-16 12:46 | PDOC PROGRESS REPORT ---
Subjective Progress Note for:: 10/16/19 Subjective:: Patient seen by the bedside he had episode of confusion earlier this morning, he is presently requiring noninvasive positive pressure ventilation to support breathing. He has MRSA bacteremia, right kidney cancer with bone metastases, not confirmed yet, end-stage renal disease on hemodialysis. Repeat blood culture be done tomorrow to document clearing of bacteremia in anticipation of bone biopsy on Friday Reason For Visit: RENAL MASS/ESRD/BACK PAIN Physical Exam Vital Signs: Temp Pulse Resp BP Pulse Ox 98.7 F 98 25 H 135/56 H 100 10/16/19 03:27 10/16/19 07:00 10/16/19 11:46 10/16/19 03:27 10/16/19 11:46 Intake & Output 10/15/19 10/16/19 10/17/19 06:59 06:59 06:59 Intake Total 1002 450 Output Total 0 900 Balance 1002 -450 Weight 99.3 kg 92.8 kg General appearance: PRESENT: other - Alert oriented on BiPAP Eye exam: PRESENT: PERRLA Respiratory exam: PRESENT: clear to auscultation dave, symmetrical Cardiovascular exam: PRESENT: +S1, +S2 GI/Abdominal exam: PRESENT: soft Neurological exam: PRESENT: alert Results Laboratory Results: 10/15/19 04:30 10/16/19 06:50 10/16/19 10/16/19 10/16/19 06:50 10:08 10:50 Carbonic Acid Cancelled 1.54 H HCO3/H2CO3 Ratio Cancelled 19:1 ABG pH Cancelled 7.39 ABG pCO2 Cancelled 51.0 H ABG pO2 Cancelled 33.8 L* ABG HCO3 Cancelled 30.2 H ABG O2 Saturation Cancelled 63.4 L ABG Base Excess Cancelled 4.3 FiO2 Cancelled 100% Sodium 134.3 L Potassium 5.6 H Chloride 93 L Carbon Dioxide 28 Anion Gap 13 BUN 78 H Creatinine 11.69 H Est GFR ( Amer) 5 L Glucose 118 H Calcium 9.2 10/16/19 11:53 Carbonic Acid 1.29 HCO3/H2CO3 Ratio 20:1 ABG pH 7.40 ABG pCO2 42.7 ABG pO2 501.0 H ABG HCO3 25.9 H ABG O2 Saturation 99.9 H ABG Base Excess 1.0 FiO2 100% Sodium Potassium Chloride Carbon Dioxide Anion Gap BUN Creatinine Est GFR ( Amer) Glucose Calcium 10/13/19 13:34 Blood Blood Culture (PCR) - Final Staphylococcus Aureus 10/13/19 12:12 Blood Blood Culture (PCR) - Final Staphylococcus Aureus 10/09/19 10/09/19 23:16 23:16 Creatine Kinase 121 CK-MB (CK-2) 0.57 Troponin I 0.112 Impressions: Abdomen/Pelvis CT 10/10/19 00:00 IMPRESSION: Prominent axillary nodes. Not definitely pathologic. Indeterminate nodes in the mediastinum. Solid right renal mass measuring over 6 cm. Atrophic kidneys. Probable Schmorl's noted L1. Well-circumscribed along the superior endplate without extension into the pedicles. Chest CT 10/10/19 00:00 IMPRESSION: Prominent axillary nodes. Not definitely pathologic. Indeterminate nodes in the mediastinum. Solid right renal mass measuring over 6 cm. Atrophic kidneys. Probable Schmorl's noted L1. Well-circumscribed along the superior endplate without extension into the pedicles. Lumbar Spine CT 10/10/19 03:49 IMPRESSION: 1. Solid-appearing mass at the upper pole of the right kidney, which has increased in size compared to the prior study. This is most compatible with malignancy. Recommend correlation with clinical history. 2. New lytic lesion within the L1 vertebral body, suggesting metastatic disease. 3. No acute fracture. Lumbar Spine MRI 10/10/19 06:22 IMPRESSION: 1. HOMOGENEOUS ROUND LESION IN THE SUPERIOR BODY OF THE L1 VERTEBRAL BODY DESCRIBED. THIS IS CONCERNING FOR A METASTATIC LESION. AN ATYPICAL SCHMORL'S NODE COULD BE ANOTHER POSSIBILITY BUT LESS LIKELY. MAY CONSIDER BONE SCAN TO EVALUATE THE FINDING IN THE L1 VERTEBRAL BODY AND TO DETERMINE IF THERE ARE ANY OTHER SKELETAL LESIONS IN THE REMAINDER OF THE BODY. 2. MILD CHRONIC DEGENERATIVE CHANGES DESCRIBED. NO SIGNIFICANT STENOSIS OR IMPINGEMENT. 3. HETEROGENOUS MASS IN THE RIGHT KIDNEY, NOT COMPLETELY IMAGED. Thoracic Spine MRI 10/10/19 06:22 IMPRESSION: NORMAL MRI THORACIC SPINE. NO EVIDENCE OF THORACIC VERTEBRAL METASTASIS. Chest X-Ray 10/16/19 10:42 IMPRESSION: Mild atelectasis at left lung base. 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 Is this a current diagnosis for this admission?: Yes Plan: Per oncology (2) End stage renal disease on dialysis Is this a current diagnosis for this admission?: Yes Plan: Per nephrology (3) Lytic lesion of bone on x-ray Is this a current diagnosis for this admission?: Yes (4) Atrial flutter Qualifiers: Atrial flutter type: typical Qualified Code(s): I48.3 - Typical atrial flutter Is this a current diagnosis for this admission?: Yes Plan: Per cardiology, presently on amiodarone (5) MRSA (methicillin resistant Staphylococcus aureus) septicemia Is this a current diagnosis for this admission?: Yes Plan: Continue IV antibiotic (6) Metabolic encephalopathy Is this a current diagnosis for this admission?: Yes Plan: This is probably multifactorial in etiology, most likely related to bacteremia - Time Time Spent with patient: 35 or more minutes Level of Care: IMCU Medications reviewed and adjusted accordingly: Yes
[2019-10-16] MEDS ORDERED: LORAZEPAM INJ 2 MG/1 ML VIAL ONE (13:31)
[2019-10-16] MEDS: PATIROMER 8.4 GM SUSP PACKET PO SCH (17:55)
[2019-10-16] MEDS: FAMOTIDINE 20 MG TABLET PO SCH (22:06)
--- NOTE | 2019-10-16 22:16 | Progress Note ---
Provider Note Provider Note: CARDIOLOGY CONSULTATION by Dr. Amanda Raines on 10/16/2019. SUBJECTIVE: As per nurses the patient has has intermittent confusion. When I spoke to him he is awake alert and oriented x3. He remains in sinus rhythm with no recurrence of atrial flutter. He has no chest pain discomfort. There is no shortness of breath. There is no PND orthopnea or leg edema. He still has right flank pain. There is no atrial or ventricular arrhythmia seen on the monitor. PHYSICAL EXAMINATION: The patient is mildly obese. In no acute distress. Selected Entries 10/16/19 19:35 Temperature 98.4 F Temperature Oral Source Pulse Rate 91 Respiratory 18 Rate Blood Pressure 145/87 H Blood Pressure 106 Mean BP Location Left Arm BP Position Supine O2 Sat by Pulse 99 Oximetry Oxygen Flow 2.00 Rate Oxygen Delivery Nasal Cannula Method HEAD: Is atraumatic and normocephalic. EYES: Pupils are equal round regular reactive to light accommodation. External ocular movements are normal. There is no conjunctival pallor. There is no scleral icterus. EARS: Tympanic membranes are intact. External auditory canals are clear. NOSE: There is no deviated nasal septum. There is no inflammation of the nasal mucous membrane. MOUTH: Mucous membranes of mouth are moist. Tongue is moist. There is no ulcers in the mouth. There is no bleeding from the gums. THROAT: There is no redness of the oropharynx. There is no exudates. SKIN: There is no skin rashes. There is no petechia or ecchymosis. There is no skin lesions. NECK: Is supple. There is no JVD. Carotids equal there is no bruit. There is no lymphadenopathy. Trachea central. LUNGS: Lungs are clear to auscultation percussion, without any rhonchi rales or wheezing. THERE IS NO CHEST WALL TENDERNESS. Heart: S1, S2 heard normally. There is no S3 gallop. There is no S4 gallop. There is systolic murmur left sternal border and apex. Murmur of mitral regurgitation heard. . There is no rub. ABDOMEN: Soft. Nontender. There is no hepatosplenomegaly. All sounds are well heard. There is no tender areas of masses. EXTREMITIES: Femorals are diminished. There is no femoral bruits. Leg pulses are diminished. There is no pedal edema. There is diffuse swelling of the right upper extremity. There is no DVT or cellulitis. There is no cyanosis or clubbing. There is no calf tenderness. DIRECT[employer]CRE[employer]: The patient is conscious awake alert oriented x3 with no focal deficits. PSYCHIATRIC: The patient judgment are intact his affect is normal. Labs- All tests 24 hr 10/16/19 10/16/19 10/16/19 06:50 10:08 10:50 Carbonic Acid Cancelled 1.54 H HCO3/H2CO3 Ratio Cancelled 19:1 ABG pH Cancelled 7.39 ABG pCO2 Cancelled 51.0 H ABG pO2 Cancelled 33.8 L* ABG HCO3 Cancelled 30.2 H ABG Total CO2 Cancelled 31.7 H ABG O2 Saturation Cancelled 63.4 L ABG Base Excess Cancelled 4.3 FiO2 Cancelled 100% Sodium 134.3 L Potassium 5.6 H Chloride 93 L Carbon Dioxide 28 Anion Gap 13 BUN 78 H Creatinine 11.69 H Est GFR ( Amer) 5 L Est GFR (MDRD) Non-Af 4 L Glucose 118 H POC Glucose Calcium 9.2 10/16/19 10/16/19 11:53 19:10 Carbonic Acid 1.29 HCO3/H2CO3 Ratio 20:1 ABG pH 7.40 ABG pCO2 42.7 ABG pO2 501.0 H ABG HCO3 25.9 H ABG Total CO2 27.2 H ABG O2 Saturation 99.9 H ABG Base Excess 1.0 FiO2 100% Sodium Potassium Chloride Carbon Dioxide Anion Gap BUN Creatinine Est GFR ( Amer) Est GFR (MDRD) Non-Af Glucose POC Glucose 118 H Calcium Abdomen/Pelvis CT 10/10/19 00:00 IMPRESSION: Prominent axillary nodes. Not definitely pathologic. Indeterminate nodes in the mediastinum. Solid right renal mass measuring over 6 cm. Atrophic kidneys. Probable Schmorl's noted L1. Well-circumscribed along the superior endplate without extension into the pedicles. Chest CT 10/10/19 00:00 IMPRESSION: Prominent axillary nodes. Not definitely pathologic. Indeterminate nodes in the mediastinum. Solid right renal mass measuring over 6 cm. Atrophic kidneys. Probable Schmorl's noted L1. Well-circumscribed along the superior endplate without extension into the pedicles. Lumbar Spine CT 10/10/19 03:49 IMPRESSION: 1. Solid-appearing mass at the upper pole of the right kidney, which has increased in size compared to the prior study. This is most compatible with malignancy. Recommend correlation with clinical history. 2. New lytic lesion within the L1 vertebral body, suggesting metastatic disease. 3. No acute fracture. Lumbar Spine MRI 10/10/19 06:22 IMPRESSION: 1. HOMOGENEOUS ROUND LESION IN THE SUPERIOR BODY OF THE L1 VERTEBRAL BODY DESCRIBED. THIS IS CONCERNING FOR A METASTATIC LESION. AN ATYPICAL SCHMORL'S NODE COULD BE ANOTHER POSSIBILITY BUT LESS LIKELY. MAY CONSIDER BONE SCAN TO EVALUATE THE FINDING IN THE L1 VERTEBRAL BODY AND TO DETERMINE IF THERE ARE ANY OTHER SKELETAL LESIONS IN THE REMAINDER OF THE BODY. 2. MILD CHRONIC DEGENERATIVE CHANGES DESCRIBED. NO SIGNIFICANT STENOSIS OR IMPINGEMENT. 3. HETEROGENOUS MASS IN THE RIGHT KIDNEY, NOT COMPLETELY IMAGED. Thoracic Spine MRI 10/10/19 06:22 IMPRESSION: NORMAL MRI THORACIC SPINE. NO EVIDENCE OF THORACIC VERTEBRAL METASTASIS. Chest X-Ray 10/16/19 10:42 IMPRESSION: Mild atelectasis at left lung base. IMPRESSION/RECOMMENDATION: 1. 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 Patient for dialysis of the right leg lesion. Hence the patient's Eliquis has been discontinued. 2. Recent recurrent atrial flutter with rapid ventricular response. Patient back to sinus rhythm post IV amiodarone drip which is been discontinued. Will increase the patient's amiodarone to 200 mg p.o. twice daily. Patient has history of proximal small atrial flutter. 3. Hyperkalemia in a patient with end-stage renal disease. The patient is getting dialyzed. 4. . History of congestive heart failure secondary to volume overload during prior admission. At present compensated. 5. Hypertension: Well-controlled continue current medications. 6. END STAGE RENAL DISEASE: On hemodialysis. 7. History of hyperlipidemia. Continue statins 8. The patient's cardiac status is very stable. If the patient needs surgical removal of the renal mass the patient will be an acceptable cardiac risk for this procedure. 9. Murmur of mitral regurgitation: Mild mitral regurgitation by echocardiographi 10. Hyperkalemia: Nephrology on the case. 11. Moderate pulmonary hypertension. 12. Positive blood cultures patient being treated for infection. Hence biopsy is on hold. Medications reviewed. Medical regimen and management plan discussed with attending physician. Medical decision making is of moderate complexity. 35 minutes spent on the patient more than 50% of time spent in direct patient care. Will follow.
[2019-10-17] MEDS: DOCUSATE SODIUM 100 MG CAPSULE PO SCH (09:58)
[2019-10-17] MEDS: AMIODARONE HCL 200 MG TABLET PO SCH ×2 (09:59→22:03)
--- NOTE | 2019-10-17 12:45 | PDOC PROGRESS REPORT ---
Subjective Progress Note for:: 10/17/19 Subjective:: Patient seen by the bedside, he is not as confused as he was yesterday, he has confirmed MRSA bacteremia, 4 out of 4 bottles. Blood culture was drawn today to confirm negative blood culture in anticipation of a bone biopsy in a.m. If the blood culture is positive, the dialysis catheter has to be removed. He is not presently requiring noninvasive positive pressure ventilation, BiPAP is on oxygen via nasal cannula. He has MRSA bacteremia, NEWTON is indicated to rule out endocarditis. Reason For Visit: RENAL MASS/ESRD/BACK PAIN Physical Exam Vital Signs: Temp Pulse Resp BP Pulse Ox 98.0 F 93 18 168/82 H 94 10/17/19 11:57 10/17/19 11:58 10/17/19 11:57 10/17/19 11:58 10/17/19 11:58 Intake & Output 10/16/19 10/17/19 10/18/19 06:59 06:59 06:59 Intake Total 450 150 Output Total 900 0 Balance -450 150 Weight 92.8 kg 90.6 kg General appearance: PRESENT: no acute distress Eye exam: PRESENT: PERRLA Respiratory exam: PRESENT: clear to auscultation dave Cardiovascular exam: PRESENT: +S1, +S2 GI/Abdominal exam: PRESENT: soft Neurological exam: PRESENT: alert Results Laboratory Results: 10/15/19 04:30 10/16/19 06:50 10/13/19 13:34 Blood Blood Culture (PCR) - Final Staphylococcus Aureus 10/13/19 13:34 Blood Blood Culture - Final Mrsa (Meth Resis Staph Aureus) 10/13/19 12:12 Blood Blood Culture (PCR) - Final Staphylococcus Aureus 10/13/19 12:12 Blood Blood Culture - Final Mrsa (Meth Resis Staph Aureus) 10/09/19 10/09/19 23:16 23:16 Creatine Kinase 121 CK-MB (CK-2) 0.57 Troponin I 0.112 Impressions: Abdomen/Pelvis CT 10/10/19 00:00 IMPRESSION: Prominent axillary nodes. Not definitely pathologic. Indeterminate nodes in the mediastinum. Solid right renal mass measuring over 6 cm. Atrophic kidneys. Probable Schmorl's noted L1. Well-circumscribed along the superior endplate without extension into the pedicles. Chest CT 10/10/19 00:00 IMPRESSION: Prominent axillary nodes. Not definitely pathologic. Indeterminate nodes in the mediastinum. Solid right renal mass measuring over 6 cm. Atrophic kidneys. Probable Schmorl's noted L1. Well-circumscribed along the superior endplate without extension into the pedicles. Lumbar Spine CT 10/10/19 03:49 IMPRESSION: 1. Solid-appearing mass at the upper pole of the right kidney, which has increased in size compared to the prior study. This is most compatible with malignancy. Recommend correlation with clinical history. 2. New lytic lesion within the L1 vertebral body, suggesting metastatic disease. 3. No acute fracture. Lumbar Spine MRI 10/10/19 06:22 IMPRESSION: 1. HOMOGENEOUS ROUND LESION IN THE SUPERIOR BODY OF THE L1 VERTEBRAL BODY DESCRIBED. THIS IS CONCERNING FOR A METASTATIC LESION. AN ATYPICAL SCHMORL'S NODE COULD BE ANOTHER POSSIBILITY BUT LESS LIKELY. MAY CONSIDER BONE SCAN TO EVALUATE THE FINDING IN THE L1 VERTEBRAL BODY AND TO DETERMINE IF THERE ARE ANY OTHER SKELETAL LESIONS IN THE REMAINDER OF THE BODY. 2. MILD CHRONIC DEGENERATIVE CHANGES DESCRIBED. NO SIGNIFICANT STENOSIS OR IMPINGEMENT. 3. HETEROGENOUS MASS IN THE RIGHT KIDNEY, NOT COMPLETELY IMAGED. Thoracic Spine MRI 10/10/19 06:22 IMPRESSION: NORMAL MRI THORACIC SPINE. NO EVIDENCE OF THORACIC VERTEBRAL METASTASIS. Chest X-Ray 10/16/19 10:42 IMPRESSION: Mild atelectasis at left lung base. 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 Is this a current diagnosis for this admission?: Yes (2) End stage renal disease on dialysis Is this a current diagnosis for this admission?: Yes (3) Lytic lesion of bone on x-ray Is this a current diagnosis for this admission?: Yes (4) Atrial flutter Qualifiers: Atrial flutter type: typical Qualified Code(s): I48.3 - Typical atrial f lutter Is this a current diagnosis for this admission?: Yes (5) MRSA (methicillin resistant Staphylococcus aureus) septicemia Is this a current diagnosis for this admission?: Yes Plan: He has MRSA septicemia, 4 out of 4 bottles positive, patient on appropriate antibiotic, vancomycin on postdialysis days. The IJ catheter exit site is clean, NEWTON is indicated to rule out endocarditis, repeat blood culture is done today, if positive then the catheter will be removed (6) Metabolic encephalopathy Is this a current diagnosis for this admission?: Yes Plan: Patient is not confused today - Time Time Spent with patient: 35 or more minutes Level of Care: IMCU Medications reviewed and adjusted accordingly: Yes
[2019-10-17 13:03] LABS: ABSOLUTE LYMPHOCYTES (AUTO) 0.8 10^3/uL (0.5-4.7); ABSOLUTE MONOCYTES (AUTO) 2.1 10^3/uL (0.1-1.4); ABSOLUTE NEUT (AUTO) 10.4 10^3/uL (1.7-8.2); BASOPHILS % (AUTO) 0.2 % (0-2); EOSINOPHILS % (AUTO) 0.2 % (0-6); HEMATOCRIT 32.5 % (37.9-51.0); HEMOGLOBIN 10.9 g/dL (13.5-17.0); LYMPHOCYTES % (AUTO) 6.3 % (13-45); MEAN CORPUSCULAR HEMOGLOBIN 29.8 pg (27.0-33.4); MEAN CORPUSCULAR HGB CONC 33.6 g/dL (32.0-36.0); MEAN CORPUSCULAR VOLUME 89 fl (80-97); MONOCYTES % (AUTO) 15.7 % (3-13); PLATELET COUNT 245 10^3/uL (150-450); RED BLOOD COUNT 3.67 10^6/uL (4.35-5.55); RED CELL DISTRIBUTION WIDTH 15.7 % (11.5-14.0); SEGMENTED NEUTROPHILS % (AUTO) 77.6 % (42-78); TOTAL CELLS COUNTED % (AUTO) 100 %; WHITE BLOOD COUNT 13.3 10^3/uL (4.0-10.5)
[2019-10-17 14:20] LABS: ALBUMIN 3.1 g/dL (3.5-5.0); ALKALINE PHOSPHATASE 229 U/L (38-126); ANION GAP 18 (5-19); ASPARTATE AMINO TRANSFERASE 45 U/L (17-59); BILIRUBIN,DIRECT 0.9 mg/dL (0.0-0.4); BILIRUBIN,TOTAL 1.1 mg/dL (0.2-1.3); BLOOD UREA NITROGEN 108 mg/dL (7-20); CALCIUM 8.8 mg/dL (8.4-10.2); CARBON DIOXIDE 27 mmol/L (22-30); CHLORIDE 91 mmol/L (98-107); GLUCOSE 109 mg/dL (75-110); POTASSIUM 5.4 mmol/L (3.6-5.0); TOTAL PROTEIN 6.9 g/dL (6.3-8.2)
[2019-10-17] MEDS: PATIROMER 8.4 GM SUSP PACKET PO SCH (18:02)
[2019-10-17] MEDS ORDERED: MORPHINE SULFATE 10 MG/ML INJ IV PRN (18:15)
--- NOTE | 2019-10-17 20:15 | Progress Note ---
Provider Note Provider Note: CARDIOLOGY PROGRESS NOTE by Dr. Amanda Dumont on 10/17/2019. SUBJECTIVE: The patient off-and-on is confused. At present the patient is slightly drowsy. He seemed to be slightly confused but he moves all 4 extremities. He remains in sinus mechanism. There is no recurrence of atrial flutter. There is no ventricular arrhythmia seen. The patient still complains of right flank pain. PHYSICAL EXAMINATION: The patient is mildly obese. In some distress due to right flank pain. Selected Entries 10/17/19 11:57 Temperature 98.0 F Temperature Oral Source Pulse Rate 95 Respiratory 18 Rate Blood Pressure 181/91 H Blood Pressure 121 Mean BP Location Left Arm BP Position Supine O2 Sat by Pulse 96 Oximetry Oxygen Flow 2.00 Rate Oxygen Delivery Nasal Cannula Method HEAD: Is atraumatic and normocephalic. EYES: Pupils are equal round regular reactive to light accommodation. External ocular movements are normal. There is no conjunctival pallor. There is no scleral icterus. EARS: Tympanic membranes are intact. External auditory canals are clear. NOSE: There is no deviated nasal septum. There is no inflammation of the nasal mucous membrane. MOUTH: Mucous membranes of mouth are moist. Tongue is moist. There is no ulcers in the mouth. There is no bleeding from the gums. THROAT: There is no redness of the oropharynx. There is no exudates. SKIN: There is no skin rashes. There is no petechia or ecchymosis. There is no skin lesions. NECK: Is supple. There is no JVD. Carotids equal there is no bruit. There is no lymphadenopathy. Trachea central. LUNGS: Lungs are clear to auscultation percussion, without any rhonchi rales or wheezing. THERE IS NO CHEST WALL TENDERNESS. Heart: S1, S2 heard normally. There is no S3 gallop. There is no S4 gallop. There is systolic murmur left sternal border and apex. Murmur of mitral regurgitation heard. . There is no rub. ABDOMEN: Soft. Nontender. There is no hepatosplenomegaly. All sounds are well heard. There is no tender areas of masses. EXTREMITIES: Femorals are diminished. There is no femoral bruits. Leg pulses are diminished. There is no pedal edema. There is diffuse swelling of the right upper extremity. There is no DVT or cellulitis. There is no cyanosis or clubbing. There is no calf tenderness. MUSIC COORDINATOR: The patient is conscious awake alert oriented x3 with no focal deficits. PSYCHIATRIC: The patient judgment are intact his affect is normal. Labs- All tests 24 hr 10/17/19 10/17/19 10/17/19 12:37 12:37 13:50 WBC 13.3 H RBC 3.67 L Hgb 10.9 L Hct 32.5 L MCV 89 MCH 29.8 MCHC 33.6 RDW 15.7 H Plt Count 245 Lymph % (Auto) 6.3 L Valencia % (Auto) 15.7 H Eos % (Auto) 0.2 Baso % (Auto) 0.2 Absolute Neuts (auto) 10.4 H Absolute Lymphs (auto) 0.8 Absolute Monos (auto) 2.1 H Absolute Eos (auto) 0.0 Absolute Basos (auto) 0.0 Seg Neutrophils % 77.6 Sodium Cancelled 136.1 L Potassium Cancelled 5.4 H Chloride Cancelled 91 L Carbon Dioxide Cancelled 27 Anion Gap Cancelled 18 BUN Cancelled 108 H Creatinine Cancelled 14.89 H Est GFR ( Amer) Cancelled 4 L Est GFR (Non-Af Amer) Cancelled Est GFR (MDRD) Non-Af Cancelled 3 L Glucose Cancelled 109 Calcium Cancelled 8.8 Total Bilirubin Cancelled 1.1 Direct Bilirubin Cancelled 0.9 H Neonat Total Bilirubin Cancelled Not Reportable Neonat Direct Bilirubin Cancelled Not Reportable Neonat Indirect Bili Cancelled Not Reportable AST Cancelled 45 ALT Cancelled 27 Alkaline Phosphatase Cancelled 229 H Total Protein Cancelled 6.9 Albumin Cancelled 3.1 L EGFR Cancelled Abdomen/Pelvis CT 10/10/19 00:00 IMPRESSION: Prominent axillary nodes. Not definitely pathologic. Indeterminate nodes in the mediastinum. Solid right renal mass measuring over 6 cm. Atrophic kidneys. Probable Schmorl's noted L1. Well-circumscribed along the superior endplate without extension into the pedicles. Chest CT 10/10/19 00:00 IMPRESSION: Prominent axillary nodes. Not definitely pathologic. Indeterminate nodes in the mediastinum. Solid right renal mass measuring over 6 cm. Atrophic kidneys. Probable Schmorl's noted L1. Well-circumscribed along the superior endplate without extension into the pedicles. Lumbar Spine CT 10/10/19 03:49 IMPRESSION: 1. Solid-appearing mass at the upper pole of the right kidney, which has increased in size compared to the prior study. This is most compatible with malignancy. Recommend correlation with clinical history. 2. New lytic lesion within the L1 vertebral body, suggesting metastatic disease. 3. No acute fracture. Lumbar Spine MRI 10/10/19 06:22 IMPRESSION: 1. HOMOGENEOUS ROUND LESION IN THE SUPERIOR BODY OF THE L1 VERTEBRAL BODY DESCRIBED. THIS IS CONCERNING FOR A METASTATIC LESION. AN ATYPICAL SCHMORL'S NODE COULD BE ANOTHER POSSIBILITY BUT LESS LIKELY. MAY CONSIDER BONE SCAN TO EVALUATE THE FINDING IN THE L1 VERTEBRAL BODY AND TO DETERMINE IF THERE ARE ANY OTHER SKELETAL LESIONS IN THE REMAINDER OF THE BODY. 2. MILD CHRONIC DEGENERATIVE CHANGES DESCRIBED. NO SIGNIFICANT STENOSIS OR IMPINGEMENT. 3. HETEROGENOUS MASS IN THE RIGHT KIDNEY, NOT COMPLETELY IMAGED. Thoracic Spine MRI 10/10/19 06:22 IMPRESSION: NORMAL MRI THORACIC SPINE. NO EVIDENCE OF THORACIC VERTEBRAL METASTASIS. Chest X-Ray 10/16/19 10:42 IMPRESSION: Mild atelectasis at left lung base. IMPRESSION/RECOMMENDATION: 1. 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 Patient for dialysis of the right leg lesion. Hence the patient's Eliquis has been discontinued. 2. Recent recurrent atrial flutter with rapid ventricular response. Patient back to sinus rhythm post IV amiodarone drip which is been discontinued. Will increase the patient's amiodarone to 200 mg p.o. twice daily. Patient has history of proximal small atrial flutter. 3. Hyperkalemia in a patient with end-stage renal disease. The patient is getting dialyzed. 4. . History of congestive heart failure secondary to volume overload during prior admission. At present compensated. 5. Hypertension: Well-controlled continue current medications. 6. END STAGE RENAL DISEASE: On hemodialysis. 7. History of hyperlipidemia. Continue statins 8. The patient's cardiac status is very stable. If the patient needs surgical removal of the renal mass the patient will be an acceptable cardiac risk for this procedure. 9. Murmur of mitral regurgitation: Mild mitral regurgitation by echocardiographi 10. Hyperkalemia: Nephrology on the case. 11. Moderate pulmonary hypertension. 12. Positive blood cultures patient being treated for infection. Hence biopsy is on hold. Medications reviewed. Medical regimen and management plan discussed with attending physician. Medical decision making is of moderate complexity. 35 minutes spent on the patient more than 50% of time spent in direct patient care. Will follow.
[2019-10-17] MEDS: FAMOTIDINE 20 MG TABLET PO SCH (22:03)
[2019-10-18] MEDS ORDERED: HEPARIN SOD (PORCINE) 1,000 UNIT/ML 10 ML VIAL IV PRN (05:00)
[2019-10-18 05:39] LABS: ABSOLUTE LYMPHOCYTES (AUTO) 0.9 10^3/uL (0.5-4.7); ABSOLUTE MONOCYTES (AUTO) 2.1 10^3/uL (0.1-1.4); ABSOLUTE NEUT (AUTO) 10.1 10^3/uL (1.7-8.2); BASOPHILS % (AUTO) 0.3 % (0-2); EOSINOPHILS % (AUTO) 0.1 % (0-6); HEMATOCRIT 33.3 % (37.9-51.0); HEMOGLOBIN 11.1 g/dL (13.5-17.0); LYMPHOCYTES % (AUTO) 6.5 % (13-45); MEAN CORPUSCULAR HEMOGLOBIN 29.6 pg (27.0-33.4); MEAN CORPUSCULAR HGB CONC 33.3 g/dL (32.0-36.0); MEAN CORPUSCULAR VOLUME 89 fl (80-97); MONOCYTES % (AUTO) 16.3 % (3-13); PLATELET COUNT 248 10^3/uL (150-450); RED BLOOD COUNT 3.75 10^6/uL (4.35-5.55); RED CELL DISTRIBUTION WIDTH 15.9 % (11.5-14.0); SEGMENTED NEUTROPHILS % (AUTO) 76.8 % (42-78); TOTAL CELLS COUNTED % (AUTO) 100 %; WHITE BLOOD COUNT 13.1 10^3/uL (4.0-10.5)
[2019-10-18 06:03] LABS: ALBUMIN 3.2 g/dL (3.5-5.0); ALKALINE PHOSPHATASE 258 U/L (38-126); ASPARTATE AMINO TRANSFERASE 43 U/L (17-59); BILIRUBIN,DIRECT 1.1 mg/dL (0.0-0.4); BILIRUBIN,TOTAL 1.1 mg/dL (0.2-1.3); CALCIUM 8.9 mg/dL (8.4-10.2); GLUCOSE 105 mg/dL (75-110); TOTAL PROTEIN 7.5 g/dL (6.3-8.2)
[2019-10-18 06:11] LABS: CARBON DIOXIDE 22 mmol/L (22-30); CHLORIDE 90 mmol/L (98-107)
[2019-10-18 06:47] LABS: BLOOD UREA NITROGEN 122 mg/dL (7-20); POTASSIUM 6.1 mmol/L (3.6-5.0)
[2019-10-18 06:48] LABS: ANION GAP 26 (5-19)
--- NOTE | 2019-10-18 08:10 | PDOC PROGRESS REPORT ---
Subjective Progress Note for:: 10/18/19 Subjective:: Blood culture positive again that were drawn yesterday, staph aureus that is probably going to be MRSA again. Discussed case with Dr. Benson who is planning on removing his PermCath. Discussed case with Dr. Hannon who agrees with plan, he also ordered NEWTON. Discussed case with Dr. Billings that all biopsies will be on hold. I will plan on following peripherally until we are able to further investigate the cancer once the infection is appropriately cleared and patient is appropriately stable. Reason For Visit: RENAL MASS/ESRD/BACK PAIN Physical Exam Vital Signs: Temp Pulse Resp BP Pulse Ox 97.6 F 85 20 168/87 H 100 10/18/19 03:27 10/18/19 07:00 10/18/19 03:27 10/18/19 03:27 10/18/19 03:27 Intake & Output 10/17/19 10/18/19 10/19/19 06:59 06:59 06:59 Intake Total 150 100 Output Total 0 0 Balance 150 100 Weight 90.6 kg General appearance: PRESENT: no acute distress, well-developed, well-nourished Head exam: PRESENT: atraumatic, normocephalic Eye exam: PRESENT: conjunctiva pink, EOMI, PERRLA. ABSENT: scleral icterus Ear exam: PRESENT: normal external ear exam Mouth exam: PRESENT: moist, tongue midline Neck exam: ABSENT: carotid bruit, JVD, lymphadenopathy, thyromegaly Respiratory exam: PRESENT: clear to auscultation dave. ABSENT: rales, rhonchi, wheezes Cardiovascular exam: PRESENT: RRR. ABSENT: diastolic murmur, rubs, systolic murmur Pulses: PRESENT: normal dorsalis pedis pul Vascular exam: PRESENT: normal capillary refill GI/Abdominal exam: PRESENT: normal bowel sounds, soft. ABSENT: distended, guarding, mass, organolmegaly, rebound, tenderness Rectal exam: PRESENT: deferred Extremities exam: PRESENT: full ROM. ABSENT: calf tenderness, clubbing, pedal edema Neurological exam: PRESENT: alert, awake, oriented to person, oriented to place, oriented to time, oriented to situation, CN II-XII grossly intact. ABSENT: motor sensory deficit Psychiatric exam: PRESENT: appropriate affect, normal mood. ABSENT: homicidal ideation, suicidal ideation Skin exam: PRESENT: dry, intact, warm. ABSENT: cyanosis, rash Results Laboratory Results: 10/18/19 04:27 10/18/19 04:27 10/17/19 10/17/19 10/17/19 12:37 12:37 13:50 WBC 13.3 H RBC 3.67 L Hgb 10.9 L Hct 32.5 L MCV 89 MCH 29.8 MCHC 33.6 RDW 15.7 H Plt Count 245 Seg Neutrophils % 77.6 Sodium Cancelled 136.1 L Potassium Cancelled 5.4 H Chloride Cancelled 91 L Carbon Dioxide Cancelled 27 Anion Gap Cancelled 18 BUN Cancelled 108 H Creatinine Cancelled 14.89 H Est GFR ( Amer) Cancelled 4 L Est GFR (Non-Af Amer) Cancelled Glucose Cancelled 109 Calcium Cancelled 8.8 Total Bilirubin Cancelled 1.1 AST Cancelled 45 Alkaline Phosphatase Cancelled 229 H Total Protein Cancelled 6.9 Albumin Cancelled 3.1 L 10/18/19 10/18/19 04:27 04:27 WBC 13.1 H RBC 3.75 L Hgb 11.1 L Hct 33.3 L MCV 89 MCH 29.6 MCHC 33.3 RDW 15.9 H Plt Count 248 Seg Neutrophils % 76.8 Sodium 137.8 Potassium 6.1 H* Chloride 90 L Carbon Dioxide 22 Anion Gap 26 H BUN 122 H Creatinine 15.66 H Est GFR ( Amer) 4 L Est GFR (Non-Af Amer) Glucose 105 Calcium 8.9 Total Bilirubin 1.1 AST 43 Alkaline Phosphatase 258 H Total Protein 7.5 Albumin 3.2 L 10/17/19 08:57 Blood Blood Culture (PCR) - Final Staphylococcus Aureus 10/17/19 07:48 Blood Blood Culture (PCR) - Final Staphylococcus Aureus 10/09/19 10/09/19 23:16 23:16 Creatine Kinase 121 CK-MB (CK-2) 0.57 Troponin I 0.112 Impressions: Abdomen/Pelvis CT 10/10/19 00:00 IMPRESSION: Prominent axillary nodes. Not definitely pathologic. Indeterminate nodes in the mediastinum. Solid right renal mass measuring over 6 cm. Atrophic kidneys. Probable Schmorl's noted L1. Well-circumscribed along the superior endplate without extension into the pedicles. Chest CT 10/10/19 00:00 IMPRESSION: Prominent axillary nodes. Not definitely pathologic. Indeterminate nodes in the mediastinum. Solid right renal mass measuring over 6 cm. Atrophic kidneys. Probable Schmorl's noted L1. Well-circumscribed along the superior endplate without extension into the pedicles. Lumbar Spine CT 10/10/19 03:49 IMPRESSION: 1. Solid-appearing mass at the upper pole of the right kidney, which has increased in size compared to the prior study. This is most compatible with malignancy. Recommend correlation with clinical history. 2. New lytic lesion within the L1 vertebral body, suggesting metastatic disease. 3. No acute fracture. Lumbar Spine MRI 10/10/19 06:22 IMPRESSION: 1. HOMOGENEOUS ROUND LESION IN THE SUPERIOR BODY OF THE L1 VERTEBRAL BODY DESCRIBED. THIS IS CONCERNING FOR A METASTATIC LESION. AN ATYPICAL SCHMORL'S NODE COULD BE ANOTHER POSSIBILITY BUT LESS LIKELY. MAY CONSIDER BONE SCAN TO EVALUATE THE FINDING IN THE L1 VERTEBRAL BODY AND TO DETERMINE IF THERE ARE ANY OTHER SKELETAL LESIONS IN THE REMAINDER OF THE BODY. 2. MILD CHRONIC DEGENERATIVE CHANGES DESCRIBED. NO SIGNIFICANT STENOSIS OR IMPINGEMENT. 3. HETEROGENOUS MASS IN THE RIGHT KIDNEY, NOT COMPLETELY IMAGED. Thoracic Spine MRI 10/10/19 06:22 IMPRESSION: NORMAL MRI THORACIC SPINE. NO EVIDENCE OF THORACIC VERTEBRAL METASTASIS. Chest X-Ray 10/16/19 10:42 IMPRESSION: Mild atelectasis at left lung base. Assessment & Plan - Diagnosis (1) Lytic lesion of bone on x-ray Is this a current diagnosis for this admission?: Yes Plan: Holding all biopsies until we are sure the infection is cleared and patient is stable. We will follow peripherally until then. (2) Renal mass, right Is this a current diagnosis for this admission?: Yes Plan: Plan for biopsy as above once we are sure that infection is cleared (3) Pain, neoplasm-related Is this a current diagnosis for this admission?: Yes Plan: Continue with IV morphine as needed. We will allow primary team to change as needed. - Time Time Spent with patient: 15-24 minutes
[2019-10-18] MEDS: DOCUSATE SODIUM 100 MG CAPSULE PO SCH (12:42)
[2019-10-18] MEDS: AMIODARONE HCL 200 MG TABLET PO SCH ×2 (12:42→21:59)
[2019-10-18] MEDS ORDERED: LIDOCAINE 0.5% INJ-PF (5 MG/ML) 50 ML SDV INJ PRN (15:44)
--- NOTE | 2019-10-18 16:37 | Operative Report ---
Operative Report DATE OF SURGERY: 10/18/19 PREOPERATIVE DIAGNOSIS: 1. Sepsis due to MRSA. 2. Infected PermCath catheter. 3. End-stage renal disease on hemodialysis. 4. Overweight. 5. Right renal mass. Number #6 upper extremity lymphedema. 7. Hypertension. POSTOPERATIVE DIAGNOSIS: 1. Sepsis due to MRSA. 2. Infected PermCath catheter. 3. End-stage renal disease on hemodialysis. 4. Overweight. 5. Right renal mass. Number #6 upper extremity lymphedema. 7. Hypertension. OPERATION: Removal of left internal jugular based permacatheter. SURGEON: CORNELIO YEH LEGAL MEDIATOR: None. ANESTHESIA: Local TISSUE REMOVED OR ALTERED: Not applicable. COMPLICATIONS: None. ESTIMATED BLOOD LOSS: 2 mL. INTRAOPERATIVE FINDINGS: A well founded and incorporated left-sided internal jugular based PermCath catheter. The catheter removed in entirety and discarded. PROCEDURE: After discussing the procedure with the patient and getting verbal consent the procedure commenced. This patient is well-known to me from a right-sided fistula and numerous problems with lymphedema, right subclavian thrombosis. He says he is in recent years been to [facility] where they have been working on him. He has had a left-sided PermCath in place for some time, not clear, possibly at least a year. The possibility of a fistula is apparently extinct. The patient is in a difficult situation as he has had resistant MRSA sepsis from when he is partially recovered. There is some planning on foot for him to have a NEWTON, to evaluate for endocarditis. For these reasons the patient needs to have the catheter removed. We will plan to put in a temporary hemodialysis catheter so that he may have dialysis on Friday. Subsequent to that a new permacatheter will have to be inserted. We will certainly try to do so here. Given his known severe upper extremity venous issues it is conceivable that he may need to go to a tertiary center failing that. Plans will also vary depending on the findings of the NEWTON. The patient was positioned semi-supine at bedside and the catheter and surrounding skin prepared with Betadine and draped out with sterile linen. Local anesthesia was infiltrated with about 20 mils of 0.5% lidocaine. After sufficient local anesthesia a hemostat was used to dissect the cuff away from the surrounding tissues. Dressings were now applied to the supraclavicular area as well as to the exit site. The catheter was removed and discarded.
[2019-10-18] MEDS: PATIROMER 8.4 GM SUSP PACKET PO SCH (17:37)
[2019-10-18] MEDS: VANCOMYCIN HCL 1,500 MG in DEXTROSE 5%-WATER 250 ML IV SCH (17:37)
--- NOTE | 2019-10-18 18:57 | Progress Note ---
Provider Note Provider Note: CARDIOLOGY PROGRESS NOTE by Dr. Amanda Dumont on 10/18/2019. SUBJECTIVE: The patient's blood cultures grew staph. In view of this the patient's permacath is been removed. The patient also have a NEWTON. He denies any chest pain or discomfort. There is no shortness of breath. The patient remains in sinus mechanism. There is no recurrence of his atrial flutter. His blood pressure slightly high. He is intermittently confused. But no definite evidence of CVA. PHYSICAL EXAMINATION: The patient appears to be ill but he is mildly obese. Selected Entries 10/18/19 12:06 Temperature 98.0 F Temperature Axillary Source Pulse Rate 93 Respiratory 18 Rate Blood Pressure 169/97 H Blood Pressure 121 Mean BP Location Left Arm BP Position Supine O2 Sat by Pulse 100 Oximetry Oxygen Flow 3.00 Rate Oxygen Delivery Nasal Cannula Method HEAD: Is atraumatic and normocephalic. EYES: Pupils are equal round regular reactive to light accommodation. External ocular movements are normal. There is no conjunctival pallor. There is no scleral icterus. EARS: Tympanic membranes are intact. External auditory canals are clear. NOSE: There is no deviated nasal septum. There is no inflammation of the nasal mucous membrane. MOUTH: Mucous membranes of mouth are moist. Tongue is moist. There is no ulcers in the mouth. There is no bleeding from the gums. THROAT: There is no redness of the oropharynx. There is no exudates. SKIN: There is no skin rashes. There is no petechia or ecchymosis. There is no skin lesions. NECK: Is supple. There is no JVD. Carotids equal there is no bruit. There is no lymphadenopathy. Trachea central. LUNGS: Lungs are clear to auscultation percussion, without any rhonchi rales or wheezing. THERE IS NO CHEST WALL TENDERNESS. Heart: S1, S2 heard normally. There is no S3 gallop. There is no S4 gallop. There is systolic murmur left sternal border and apex. Murmur of mitral regurgitation heard. . There is no rub. ABDOMEN: Soft. Nontender. There is no hepatosplenomegaly. All sounds are well heard. There is no tender areas of masses. EXTREMITIES: Femorals are diminished. There is no femoral bruits. Leg pulses are diminished. There is no pedal edema. There is diffuse swelling of the right upper extremity. There is no DVT or cellulitis. There is no cyanosis or clubbing. There is no calf tenderness. FIELD HAND: The patient is conscious awake drowsy, but with with no focal deficits. PSYCHIATRIC: The patient is not agitated or anxious. Labs- All tests 24 hr 10/18/19 10/18/19 04:27 04:27 WBC 13.1 H RBC 3.75 L Hgb 11.1 L Hct 33.3 L MCV 89 MCH 29.6 MCHC 33.3 RDW 15.9 H Plt Count 248 Lymph % (Auto) 6.5 L Blackford % (Auto) 16.3 H Eos % (Auto) 0.1 Baso % (Auto) 0.3 Absolute Neuts (auto) 10.1 H Absolute Lymphs (auto) 0.9 Absolute Monos (auto) 2.1 H Absolute Eos (auto) 0.0 Absolute Basos (auto) 0.0 Seg Neutrophils % 76.8 Sodium 137.8 Potassium 6.1 H* Chloride 90 L Carbon Dioxide 22 Anion Gap 26 H BUN 122 H Creatinine 15.66 H Est GFR ( Amer) 4 L Est GFR (MDRD) Non-Af 3 L Glucose 105 Calcium 8.9 Total Bilirubin 1.1 Direct Bilirubin 1.1 H Neonat Total Bilirubin Not Reportable Neonat Direct Bilirubin Not Reportable Neonat Indirect Bili Not Reportable AST 43 ALT 28 Alkaline Phosphatase 258 H Total Protein 7.5 Albumin 3.2 L Abdomen/Pelvis CT 10/10/19 00:00 IMPRESSION: Prominent axillary nodes. Not definitely pathologic. Indeterminate nodes in the mediastinum. Solid right renal mass measuring over 6 cm. Atrophic kidneys. Probable Schmorl's noted L1. Well-circumscribed along the superior endplate without extension into the pedicles. Chest CT 10/10/19 00:00 IMPRESSION: Prominent axillary nodes. Not definitely pathologic. Indeterminate nodes in the mediastinum. Solid right renal mass measuring over 6 cm. Atrophic kidneys. Probable Schmorl's noted L1. Well-circumscribed along the superior endplate without extension into the pedicles. Lumbar Spine CT 10/10/19 03:49 IMPRESSION: 1. Solid-appearing mass at the upper pole of the right kidney, which has increased in size compared to the prior study. This is most compatible with malignancy. Recommend correlation with clinical history. 2. New lytic lesion within the L1 vertebral body, suggesting metastatic disease. 3. No acute fracture. Lumbar Spine MRI 10/10/19 06:22 IMPRESSION: 1. HOMOGENEOUS ROUND LESION IN THE SUPERIOR BODY OF THE L1 VERTEBRAL BODY DESCRIBED. THIS IS CONCERNING FOR A METASTATIC LESION. AN ATYPICAL SCHMORL'S NODE COULD BE ANOTHER POSSIBILITY BUT LESS LIKELY. MAY CONSIDER BONE SCAN TO EVALUATE THE FINDING IN THE L1 VERTEBRAL BODY AND TO DETERMINE IF THERE ARE ANY OTHER SKELETAL LESIONS IN THE REMAINDER OF THE BODY. 2. MILD CHRONIC DEGENERATIVE CHANGES DESCRIBED. NO SIGNIFICANT STENOSIS OR IMPINGEMENT. 3. HETEROGENOUS MASS IN THE RIGHT KIDNEY, NOT COMPLETELY IMAGED. Thoracic Spine MRI 10/10/19 06:22 IMPRESSION: NORMAL MRI THORACIC SPINE. NO EVIDENCE OF THORACIC VERTEBRAL METASTASIS. Chest X-Ray 10/16/19 10:42 IMPRESSION: Mild atelectasis at left lung base. 10/17/19 08:57 Blood Culture (PCR) - Final Blood Blood Culture - Preliminary Staphylococcus Aureus Gram Positive Cocci Clusters 10/17/19 07:48 Blood Culture (PCR) - Final Blood Blood Culture - Preliminary Staphylococcus Aureus Gram Positive Cocci Clusters 10/13/19 13:34 Blood Culture (PCR) - Final Blood Blood Culture - Final Staphylococcus Aureus Mrsa (Meth Resis Staph Aureus) 10/13/19 12:12 Blood Culture (PCR) - Final Blood Blood Culture - Final Staphylococcus Aureus Mrsa (Meth Resis Staph Aureus) IMPRESSION/RECOMMENDATION: 1. 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 Patient for dialysis of the right leg lesion. Hence the patient's Eliquis has been discontinued. 2. Recent recurrent atrial flutter with rapid ventricular response. Patient back to sinus rhythm post IV amiodarone drip which is been discontinued. Will increase the patient's amiodarone to 200 mg p.o. twice daily. Patient has history of proximal small atrial flutter. 3. Hyperkalemia in a patient with end-stage renal disease. The patient is getting dialyzed. 4. . History of congestive heart failure secondary to volume overload during prior admission. At present compensated. 5. Hypertension: Well-controlled continue current medications. 6. END STAGE RENAL DISEASE: On hemodialysis. 7. History of hyperlipidemia. Continue statins 8. The patient's cardiac status is very stable. If the patient needs surgical removal of the renal mass the patient will be an acceptable cardiac risk for this procedure. 9. Murmur of mitral regurgitation: Mild mitral regurgitation by echocardiographi 10. Hyperkalemia: Nephrology on the case. 11. Moderate pulmonary hypertension. 12. Positive blood cultures patient being treated for infection. Hence biopsy is on hold. His permacath has been removed with this being the suspected cause of the patient's positive blood cultures. Medications reviewed. Medical regimen and management plan discussed with attending physician. Medical decision making is of moderate complexity. 40 minutes spent on the patient more than 50% of time spent in direct patient care. Will follow.
--- NOTE | 2019-10-18 19:41 | PDOC PROGRESS REPORT ---
Subjective Progress Note for:: 10/18/19 Subjective:: Patient seen by the bedside, the repeat blood culture positive for MRSA again, the was discontinued today. Patient had an episode of confusion, with disorientation to time place and person, is scheduled for NEWTON tomorrow, this is indicated in light of the persistent MRSA bacteremia to rule out endocarditis Reason For Visit: RENAL MASS/ESRD/BACK PAIN Physical Exam Vital Signs: Temp Pulse Resp BP Pulse Ox 98.3 F 91 18 193/87 H 100 10/18/19 16:36 10/18/19 16:36 10/18/19 16:36 10/18/19 16:36 10/18/19 16:36 Intake & Output 10/17/19 10/18/19 10/19/19 06:59 06:59 06:59 Intake Total 150 150 Output Total 0 0 489 Balance 150 150 -489 Weight 90.6 kg 89.8 kg General appearance: PRESENT: no acute distress Eye exam: PRESENT: PERRLA Respiratory exam: PRESENT: clear to auscultation dave Cardiovascular exam: PRESENT: +S1, +S2, systolic murmur GI/Abdominal exam: PRESENT: soft Neurological exam: PRESENT: altered Results Laboratory Results: 10/18/19 04:27 10/18/19 04:27 10/18/19 10/18/19 04:27 04:27 WBC 13.1 H RBC 3.75 L Hgb 11.1 L Hct 33.3 L MCV 89 MCH 29.6 MCHC 33.3 RDW 15.9 H Plt Count 248 Seg Neutrophils % 76.8 Sodium 137.8 Potassium 6.1 H* Chloride 90 L Carbon Dioxide 22 Anion Gap 26 H BUN 122 H Creatinine 15.66 H Est GFR ( Amer) 4 L Glucose 105 Calcium 8.9 Total Bilirubin 1.1 AST 43 Alkaline Phosphatase 258 H Total Protein 7.5 Albumin 3.2 L 10/17/19 07:48 Blood Blood Culture (PCR) - Final Staphylococcus Aureus 10/17/19 08:57 Blood Blood Culture (PCR) - Final Staphylococcus Aureus 10/09/19 10/09/19 23:16 23:16 Creatine Kinase 121 CK-MB (CK-2) 0.57 Troponin I 0.112 Impressions: Abdomen/Pelvis CT 10/10/19 00:00 IMPRESSION: Prominent axillary nodes. Not definitely pathologic. Indeterminate nodes in the mediastinum. Solid right renal mass measuring over 6 cm. Atrophic kidneys. Probable Schmorl's noted L1. Well-circumscribed along the superior endplate without extension into the pedicles. Chest CT 10/10/19 00:00 IMPRESSION: Prominent axillary nodes. Not definitely pathologic. Indeterminate nodes in the mediastinum. Solid right renal mass measuring over 6 cm. Atrophic kidneys. Probable Schmorl's noted L1. Well-circumscribed along the superior endplate without extension into the pedicles. Lumbar Spine CT 10/10/19 03:49 IMPRESSION: 1. Solid-appearing mass at the upper pole of the right kidney, which has increased in size compared to the prior study. This is most compatible with malignancy. Recommend correlation with clinical history. 2. New lytic lesion within the L1 vertebral body, suggesting metastatic disease. 3. No acute fracture. Lumbar Spine MRI 10/10/19 06:22 IMPRESSION: 1. HOMOGENEOUS ROUND LESION IN THE SUPERIOR BODY OF THE L1 VERTEBRAL BODY DESCRIBED. THIS IS CONCERNING FOR A METASTATIC LESION. AN ATYPICAL SCHMORL'S NODE COULD BE ANOTHER POSSIBILITY BUT LESS LIKELY. MAY CONSIDER BONE SCAN TO EVALUATE THE FINDING IN THE L1 VERTEBRAL BODY AND TO DETERMINE IF THERE ARE ANY OTHER SKELETAL LESIONS IN THE REMAINDER OF THE BODY. 2. MILD CHRONIC DEGENERATIVE CHANGES DESCRIBED. NO SIGNIFICANT STENOSIS OR I MPINGEMENT. 3. HETEROGENOUS MASS IN THE RIGHT KIDNEY, NOT COMPLETELY IMAGED. Thoracic Spine MRI 10/10/19 06:22 IMPRESSION: NORMAL MRI THORACIC SPINE. NO EVIDENCE OF THORACIC VERTEBRAL METASTASIS. Chest X-Ray 10/16/19 10:42 IMPRESSION: Mild atelectasis at left lung base. Assessment & Plan - Diagnosis (1) MRSA (methicillin resistant Staphylococcus aureus) septicemia Is this a current diagnosis for this admission?: Yes Plan: He has MRSA septicemia on vancomycin postdialysis, is food intake is diminished, prognosis is guarded (2) Neoplasm of uncertain behavior of right kidney Is this a current diagnosis for this admission?: Yes (3) End stage renal disease on dialysis Is this a current diagnosis for this admission?: Yes Plan: per Nephrology (4) Lytic lesion of bone on x-ray Is this a current diagnosis for this admission?: Yes (5) Atrial flutter Qualifiers: Atrial flutter type: typical Qualified Code(s): I48.3 - Typical atrial flutter Is this a current diagnosis for this admission?: Yes (6) Metabolic encephalopathy Is this a current diagnosis for this admission?: Yes - Time Time Spent with patient: 25-34 minutes Level of Care: IMCU
[2019-10-18] MEDS: FAMOTIDINE 20 MG TABLET PO SCH (21:59)
--- NOTE | 2019-10-18 22:10 | PDOC PROGRESS REPORT ---
Subjective Progress Note for:: 10/18/19 Subjective:: Patient seen by the bedside, he has persistent MRSA septicemia, he also had episode of confusion earlier today, he is scheduled for NEWTON in the morning, he was dialyzed today, the dialysis catheter was DC today Reason For Visit: RENAL MASS/ESRD/BACK PAIN Physical Exam Vital Signs: Temp Pulse Resp BP Pulse Ox 97.5 F 87 16 166/89 H 97 10/18/19 20:00 10/18/19 20:00 10/18/19 20:00 10/18/19 20:00 10/18/19 20:00 Intake & Output 10/17/19 10/18/19 10/19/19 06:59 06:59 06:59 Intake Total 150 150 250 Output Total 0 0 489 Balance 150 150 -239 Weight 90.6 kg 89.8 kg General appearance: PRESENT: no acute distress Eye exam: PRESENT: PERRLA Respiratory exam: PRESENT: clear to auscultation dave Cardiovascular exam: PRESENT: +S1, +S2 GI/Abdominal exam: PRESENT: soft Neurological exam: PRESENT: altered Results Laboratory Results: 10/18/19 04:27 10/18/19 04:27 10/18/19 10/18/19 04:27 04:27 WBC 13.1 H RBC 3.75 L Hgb 11.1 L Hct 33.3 L MCV 89 MCH 29.6 MCHC 33.3 RDW 15.9 H Plt Count 248 Seg Neutrophils % 76.8 Sodium 137.8 Potassium 6.1 H* Chloride 90 L Carbon Dioxide 22 Anion Gap 26 H BUN 122 H Creatinine 15.66 H Est GFR ( Amer) 4 L Glucose 105 Calcium 8.9 Total Bilirubin 1.1 AST 43 Alkaline Phosphatase 258 H Total Protein 7.5 Albumin 3.2 L 10/17/19 07:48 Blood Blood Culture (PCR) - Final Staphylococcus Aureus 10/17/19 08:57 Blood Blood Culture (PCR) - Final Staphylococcus Aureus 10/09/19 10/09/19 23:16 23:16 Creatine Kinase 121 CK-MB (CK-2) 0.57 Troponin I 0.112 Impressions: Abdomen/Pelvis CT 10/10/19 00:00 IMPRESSION: Prominent axillary nodes. Not definitely pathologic. Indeterminate nodes in the mediastinum. Solid right renal mass measuring over 6 cm. Atrophic kidneys. Probable Schmorl's noted L1. Well-circumscribed along the superior endplate without extension into the pedicles. Chest CT 10/10/19 00:00 IMPRESSION: Prominent axillary nodes. Not definitely pathologic. Indeterminate nodes in the mediastinum. Solid right renal mass measuring over 6 cm. Atrophic kidneys. Probable Schmorl's noted L1. Well-circumscribed along the superior endplate without extension into the pedicles. Lumbar Spine CT 10/10/19 03:49 IMPRESSION: 1. Solid-appearing mass at the upper pole of the right kidney, which has increased in size compared to the prior study. This is most compatible with malignancy. Recommend correlation with clinical history. 2. New lytic lesion within the L1 vertebral body, suggesting metastatic disease. 3. No acute fracture. Lumbar Spine MRI 10/10/19 06:22 IMPRESSION: 1. HOMOGENEOUS ROUND LESION IN THE SUPERIOR BODY OF THE L1 VERTEBRAL BODY DESCRIBED. THIS IS CONCERNING FOR A METASTATIC LESION. AN ATYPICAL SCHMORL'S NODE COULD BE ANOTHER POSSIBILITY BUT LESS LIKELY. MAY CONSIDER BONE SCAN TO EVALUATE THE FINDING IN THE L1 VERTEBRAL BODY AND TO DETERMINE IF THERE ARE ANY OTHER SKELETAL LESIONS IN THE REMAINDER OF THE BODY. 2. MILD CHRONIC DEGENERATIVE CHANGES DESCRIBED. NO SIGNIFICANT STENOSIS OR IMPINGEMENT. 3. HETEROGENOUS MASS IN THE RIGHT KIDNEY, NOT COMPLETELY IMAGED. Thoracic Spine MRI 10/10/19 06:22 IMPRESSION: NORMAL MRI THORACIC SPINE. NO EVIDENCE OF THORACIC VERTEBRAL METASTASIS. Chest X-Ray 10/16/19 10:42 IMPRESSION: Mild atelectasis at left lung base. Assessment & Plan - Diagnosis (1) MRSA (methicillin resistant Staphylococcus aureus) septicemia Is this a current diagnosis for this admission?: Yes Plan: He has MRSA septicemia on vancomycin postdialysis, is food intake is diminished, prognosis is guarded (2) Neoplasm of uncertain behavior of right kidney Is this a current diagnosis for this admission?: Yes (3) End stage renal disease on dialysis Is this a current diagnosis for this admission?: Yes (4) Lytic lesion of bone on x-ray Is this a current diagnosis for this admission?: Yes (5) Atrial flutter Qualifiers: Qualified Code(s): I48.3 - Typical atrial flutter Is this a current diagnosis for this admission?: Yes (6) Metabolic encephalopathy Is this a current diagnosis for this admission?: Yes Plan: He continues to have fluctuating encephalopathy - Time Time Spent with patient: 35 or more minutes Level of Care: IMCU Medications reviewed and adjusted accordingly: Yes
--- NOTE | 2019-10-18 22:16 | PDOC PROGRESS REPORT ---
Subjective Progress Note for:: 10/18/19 Subjective:: Chart reviewed. Patient came in with low back pain and subsequently was found to have a right renal mass and lytic lesion on L1. Subsequently the patient also developed bacteremia and now positive with MRSA. He was started on vancomycin last Friday. However blood cultures remains to be positive x2 on October 13 and more recently yesterday October 17. I am seeing the patient during dialysis treatment today. He is diaphoretic while on the machine. He also appears to be confused with a flat affect most of the time with minimal response to questioning. Otherwise he is hemodynamically stable while on dialysis. Patient is closely monitored during dialysis t reatment. Patient will be undergoing PermCath removal due to persistent bacteremia after dialysis today. Reason For Visit: RENAL MASS/ESRD/BACK PAIN Physical Exam Vital Signs: Temp Pulse Resp BP Pulse Ox 97.6 F 85 20 168/87 H 100 10/18/19 03:27 10/18/19 07:00 10/18/19 03:27 10/18/19 03:27 10/18/19 03:27 Intake & Output 10/17/19 10/18/19 10/19/19 06:59 06:59 06:59 Intake Total 150 150 Output Total 0 0 Balance 150 150 Weight 90.6 kg 89.8 kg Vitals during dialysis: Blood pressure 132/75, pulse rate of 89, blood flow rate of 300 mL/min and dialysate flow rate of 800 mL/min, temperature of 97.9. Exam: General appearance: PRESENT: no acute distress, cooperative, well-developed, well-nourished Head exam: PRESENT: atraumatic, normocephalic, diaphoretic Eye exam: PRESENT: conjunctiva slightly pale, PERRLA. ABSENT: scleral icterus Neck exam: ABSENT: JVD Respiratory exam: PRESENT: Normal breath sounds. ABSENT: crackles, rales, r honchi, unlabored, wheezes Cardiovascular exam: PRESENT: Regular rate rhythm -+S1, +S2. ABSENT: diastolic murmur, systolic murmur GI/Abdominal exam: PRESENT: normal bowel sounds, soft. ABSENT: guarding, mass, tenderness Extremities exam: ABSENT: No lower extremities edema; chronic right arm lymphe chloe Neurological exam: PRESENT: alert, awake, oriented to person only. Skin exam: PRESENT: dry, warm, Cardiovascular exam: PRESENT: +S1, +S2 GI/Abdominal exam: PRESENT: normal bowel sounds, soft. ABSENT: organomegaly, tenderness Results Laboratory Results: 10/18/19 04:27 10/18/19 04:27 10/17/19 10/17/19 10/17/19 12:37 12:37 13:50 WBC 13.3 H RBC 3.67 L Hgb 10.9 L Hct 32.5 L MCV 89 MCH 29.8 MCHC 33.6 RDW 15.7 H Plt Count 245 Seg Neutrophils % 77.6 Sodium Cancelled 136.1 L Potassium Cancelled 5.4 H Chloride Cancelled 91 L Carbon Dioxide Cancelled 27 Anion Gap Cancelled 18 BUN Cancelled 108 H Creatinine Cancelled 14.89 H Est GFR ( Amer) Cancelled 4 L Est GFR (Non-Af Amer) Cancelled Glucose Cancelled 109 Calcium Cancelled 8.8 Total Bilirubin Cancelled 1.1 AST Cancelled 45 Alkaline Phosphatase Cancelled 229 H Total Protein Cancelled 6.9 Albumin Cancelled 3.1 L 10/18/19 10/18/19 04:27 04:27 WBC 13.1 H RBC 3.75 L Hgb 11.1 L Hct 33.3 L MCV 89 MCH 29.6 MCHC 33.3 RDW 15.9 H Plt Count 248 Seg Neutrophils % 76.8 Sodium 137.8 Potassium 6.1 H* Chloride 90 L Carbon Dioxide 22 Anion Gap 26 H BUN 122 H Creatinine 15.66 H Est GFR ( Amer) 4 L Est GFR (Non-Af Amer) Glucose 105 Calcium 8.9 Total Bilirubin 1.1 AST 43 Alkaline Phosphatase 258 H Total Protein 7.5 Albumin 3.2 L 10/17/19 08:57 Blood Blood Culture (PCR) - Final Staphylococcus Aureus 10/17/19 07:48 Blood Blood Culture (PCR) - Final Staphylococcus Aureus 10/09/19 10/09/19 23:16 23:16 Creatine Kinase 121 CK-MB (CK-2) 0.57 Troponin I 0.112 Impressions: Abdomen/Pelvis CT 10/10/19 00:00 IMPRESSION: Prominent axillary nodes. Not definitely pathologic. Indeterminate nodes in the mediastinum. Solid right renal mass measuring over 6 cm. Atrophic kidneys. Probable Schmorl's noted L1. Well-circumscribed along the superior endplate without extension into the pedicles. Chest CT 10/10/19 00:00 IMPRESSION: Prominent axillary nodes. Not definitely pathologic. Indeterminate nodes in the mediastinum. Solid right renal mass measuring over 6 cm. Atrophic kidneys. Probable Schmorl's noted L1. Well-circumscribed along the superior endplate without extension into the pedicles. Lumbar Spine CT 10/10/19 03:49 IMPRESSION: 1. Solid-appearing mass at the upper pole of the right kidney, which has increased in size compared to the prior study. This is most compatible with malignancy. Recommend correlation with clinical history. 2. New lytic lesion within the L1 vertebral body, suggesting metastatic disease. 3. No acute fracture. Lumbar Spine MRI 10/10/19 06:22 IMPRESSION: 1. HOMOGENEOUS ROUND LESION IN THE SUPERIOR BODY OF THE L1 VERTEBRAL BODY DESCRIBED. THIS IS CONCERNING FOR A METASTATIC LESION. AN ATYPICAL SCHMORL'S NODE COULD BE ANOTHER POSSIBILITY BUT LESS LIKELY. MAY CONSIDER BONE SCAN TO EVALUATE THE FINDING IN THE L1 VERTEBRAL BODY AND TO DETERMINE IF THERE ARE ANY OTHER SKELETAL LESIONS IN THE REMAINDER OF THE BODY. 2. MILD CHRONIC DEGENERATIVE CHANGES DESCRIBED. NO SIGNIFICANT STENOSIS OR IMPINGEMENT. 3. HETEROGENOUS MASS IN THE RIGHT KIDNEY, NOT COMPLETELY IMAGED. Thoracic Spine MRI 10/10/19 06:22 IMPRESSION: NORMAL MRI THORACIC SPINE. NO EVIDENCE OF THORACIC VERTEBRAL METASTASIS. Chest X-Ray 10/16/19 10:42 IMPRESSION: Mild atelectasis at left lung base. Assessment & Plan - Diagnosis (1) MRSA (methicillin resistant Staphylococcus aureus) septicemia Is this a current diagnosis for this admission?: Yes Plan: Patient has positive MRSA on 4 blood cultures done in 2 separate days on October 23 October 17. Patient is currently on vancomycin. Plan is to remove his PermCath today after dialysis treatment and to give him a catheter holiday. NEWTON was also ordered. (2) End stage renal disease on dialysis Is this a current diagnosis for this admission?: Yes Plan: We will do dialysis today for 3 hours, using the patient's CVC, with 2 potassium bath, blood flow rate of 300 mL per minute, dialysate flow rate of 800 mL per minute, ultrafiltration 0.5 to 1 L as tolerated, no heparin and no Procrit. Patient will be monitored throughout dialysis treatment today. I spoke to Dr. Topete this morning. After removing the permacath today, he will most likely place a temporary dialysis catheter for dialysis on Friday before placing another PermCath while being treated for his MRSA bacteremia. (3) Renal mass, right Is this a current diagnosis for this admission?: Yes Plan: Patient being evaluated by Dr. Bermeo, oncologist. Biopsy is placed on hold due to bacteremia. (4) Lytic lesion of bone on x-ray Is this a current diagnosis for this admission?: Yes Plan: This involves L1. The plan is to do kyphoplasty by Dr. Billings but again this is put on hold due to the patient's current bacteremia. (5) Metabolic encephalopathy Is this a current diagnosis for this admission?: Yes Plan: Is most likely secondary to septicemia. (6) Hyperkalemia Is this a current diagnosis for this admission?: Yes Plan: We will use low potassium bath during dialysis treatment. Continue Veltassa and low potassium diet. (7) Hypertension Is this a current diagnosis for this admission?: Yes Plan: Controlled. (8) Paroxysmal atrial flutter Is this a current diagnosis for this admission?: Yes (9) Lymphedema of right upper extremity Is this a current diagnosis for this admission?: Yes Plan: This is chronic. - Time Time with patient: 15-25 minutes
[2019-10-19] MEDS: DOCUSATE SODIUM 100 MG CAPSULE PO SCH (09:47)
[2019-10-19] MEDS: AMIODARONE HCL 200 MG TABLET PO SCH ×2 (09:48→22:27)
--- NOTE | 2019-10-19 11:49 | PDOC PROGRESS REPORT ---
Subjective Progress Note for:: 10/19/19 Subjective:: Patient is doing much much better today compared to yesterday. His mental status is significantly improved and is now able to communicate very well and coherently. His PermCath was removed after dialysis yesterday. Blood pressure is still elevated a little bit. Patient has not been eating for the last 2 days 3 to 4 days or so. He tells me that he can eat some now. He will have a temporary dialysis catheter placed sometime today or tomorrow prior to dialysis by Dr. Topete. Another PermCath will be placed once the patient is no longer bacteremic. Reason For Visit: RENAL MASS/ESRD/BACK PAIN Physical Exam Vital Signs: Temp Pulse Resp BP Pulse Ox 98.1 F 77 16 162/75 H 100 10/19/19 08:04 10/19/19 08:04 10/19/19 08:04 10/19/19 08:04 10/19/19 08:04 Intake & Output 10/18/19 10/19/19 10/20/19 06:59 06:59 06:59 Intake Total 150 325 Output Total 0 489 Balance 150 -164 Weight 89.8 kg 89.9 kg Exam: General appearance: PRESENT: no acute distress, cooperative, well-developed, well-nourished Head exam: PRESENT: atraumatic, normocephalic Eye exam: PRESENT: conjunctiva slightly pale, PERRLA. ABSENT: scleral icterus Neck exam: ABSENT: JVD Respiratory exam: PRESENT: Normal breath sounds. ABSENT: crackles, rales, rhonchi, unlabored, wheezes Cardiovascular exam: PRESENT: Regular rate rhythm -+S1, +S2. Grade 2/6 systolic murmur GI/Abdominal exam: PRESENT: normal bowel sounds, soft. ABSENT: guarding, mass, tenderness Extremities exam: ABSENT: No edema Neurological exam: PRESENT: alert, awake, oriented to person, place and time. Skin exam: PRESENT: dry, warm, Cardiovascular exam: PRESENT: +S1, +S2 GI/Abdominal exam: PRESENT: normal bowel sounds, soft. ABSENT: organomegaly, tenderness Results Laboratory Results: 10/18/19 04:27 10/18/19 04:27 10/17/19 07:48 Blood Blood Culture (PCR) - Final Staphylococcus Aureus 10/17/19 08:57 Blood Blood Culture (PCR) - Final Staphylococcus Aureus 10/09/19 10/09/19 23:16 23:16 Creatine Kinase 121 CK-MB (CK-2) 0.57 Troponin I 0.112 Impressions: Abdomen/Pelvis CT 10/10/19 00:00 IMPRESSION: Prominent axillary nodes. Not definitely pathologic. Indeterminate nodes in the mediastinum. Solid right renal mass measuring over 6 cm. Atrophic kidneys. Probable Schmorl's noted L1. Well-circumscribed along the superior endplate without extension into the pedicles. Chest CT 10/10/19 00:00 IMPRESSION: Prominent axillary nodes. Not definitely pathologic. Indeterminate nodes in the mediastinum. Solid right renal mass measuring over 6 cm. Atrophic kidneys. Probable Schmorl's noted L1. Well-circumscribed along the superior endplate without extension into the pedicles. Lumbar Spine CT 10/10/19 03:49 IMPRESSION: 1. Solid-appearing mass at the upper pole of the right kidney, which has increased in size compared to the prior study. This is most compatible with malignancy. Recommend correlation with clinical history. 2. New lytic lesion within the L1 vertebral body, suggesting metastatic disease. 3. No acute fracture. Lumbar Spine MRI 10/10/19 06:22 IMPRESSION: 1. HOMOGENEOUS ROUND LESION IN THE SUPERIOR BODY OF THE L1 VERTEBRAL BODY DESCRIBED. THIS IS CONCERNING FOR A METASTATIC LESION. AN ATYPICAL SCHMORL'S NODE COULD BE ANOTHER POSSIBILITY BUT LESS LIKELY. MAY CONSIDER BONE SCAN TO EVALUATE THE FINDING IN THE L1 VERTEBRAL BODY AND TO DETERMINE IF THERE ARE ANY OTHER SKELETAL LESIONS IN THE REMAINDER OF THE BODY. 2. MILD CHRONIC DEGENERATIVE CHANGES DESCRIBED. NO SIGNIFICANT STENOSIS OR IMPINGEMENT. 3. HETEROGENOUS MASS IN THE RIGHT KIDNEY, NOT COMPLETELY IMAGED. Thoracic Spine MRI 10/10/19 06:22 IMPRESSION: NORMAL MRI THORACIC SPINE. NO EVIDENCE OF THORACIC VERTEBRAL METASTASIS. Chest X-Ray 10/16/19 10:42 IMPRESSION: Mild atelectasis at left lung base. Assessment & Plan - Diagnosis (1) MRSA (methicillin resistant Staphylococcus aureus) septicemia Is this a current diagnosis for this admission?: Yes Plan: Patient has positive MRSA on 4 blood cultures done in 2 separate days on October 23 October 17. Patient is currently on vancomycin. PermCath was removed yesterday and patient is significantly clinically improved today. NEWTON is still not done ordered by primary care provider. Continue vancomycin IV. (2) End stage renal disease on dialysis Is this a current diagnosis for this admission?: Yes Plan: Patient will have a temporary dialysis catheter placed by Dr. Topete today or tomorrow prior to dialysis. Next dialysis will be tomorrow. (3) Renal mass, right Is this a current diagnosis for this admission?: Yes Plan: Patient being evaluated by Dr. Bermeo, oncologist. Biopsy is placed on hold due to bacteremia. (4) Lytic lesion of bone on x-ray Is this a current diagnosis for this admission?: Yes Plan: This involves L1. The plan is to do kyphoplasty by Dr. Billings but again this is put on hold due to the patient's current bacteremia. (5) Metabolic encephalopathy Is this a current diagnosis for this admission?: Yes Plan: This is most likely secondary to septicemia. Significantly improved today after removal of permacath yesterday. Almost at baseline mental state. (6) Hyperkalemia Is this a current diagnosis for this admission?: Yes Plan: We will use low potassium bath during dialysis treatment. Continue Veltassa and low potassium diet. (7) Hypertension Is this a current diagnosis for this admission?: Yes Plan: Labile and suboptimally controlled. (8) Paroxysmal atrial flutter Is this a current diagnosis for this admission?: Yes (9) Lymphedema of right upper extremity Is this a current diagnosis for this admission?: Yes Plan: This is chronic. - Notes Notes: Updated daughter at bedside. - Time Time with patient: 15-25 minutes
[2019-10-19] MEDS ORDERED: FENTANYL CITRATE INJ/PF 100 MCG/2 ML AMPUL ONE (13:52)
[2019-10-19] MEDS ORDERED: ONDANSETRON HCL INJ/PF 4 MG/2 ML SDV ONE (13:52)
[2019-10-19] MEDS ORDERED: DIPHENHYDRAMINE HCL 50 MG/ML VIAL ONE (13:52)
[2019-10-19] MEDS ORDERED: LIDOCAINE 2% VISCOUS SOLN 15 ML UDCUP ONE (13:52)
[2019-10-19] MEDS ORDERED: MIDAZOLAM 2 MG/2 ML INJ ONE (13:53)
[2019-10-19] MEDS ORDERED: FLUMAZENIL INJ 0.5 MG/5 ML VIAL ONE (13:53)
[2019-10-19] MEDS ORDERED: NALOXONE HCL INJ/PF 0.4 MG/1 ML SDV ONE (13:53)
[2019-10-19] MEDS ORDERED: BENZOCAINE 20% AEROSOL SPRAY 60 GM ONE (13:54)
[2019-10-19] MEDS ORDERED: EPINEPHRINE INJ 1 MG/10 ML DISP.SYRIN ONE (13:54)
[2019-10-19] MEDS ORDERED: GLUCAGON,HUMAN RECOMB 1 MG INJ ONE (13:54)
--- NOTE | 2019-10-19 15:07 | Operative Report ---
Operative Report DATE OF SURGERY: 10/19/19 PREOPERATIVE DIAGNOSIS: 1. Catheter sepsis. 2. End-stage renal disease on he modialysis. POSTOPERATIVE DIAGNOSIS: 1. Catheter sepsis. 2. End-stage renal disease on hemodialysis. OPERATION: Ultrasound evaluation of the right femoral vein. 2. Insertion of temporary hemodialysis catheter via real-time access in the right femoral vein. SURGEON: CORNELIO YEH HAIRSPRING INSPECTOR: None. ANESTHESIA: Local TISSUE REMOVED OR ALTERED: Not applicable. COMPLICATIONS: None. ESTIMATED BLOOD LOSS: 5 mL. INTRAOPERATIVE FINDINGS: Of a fairly large right femoral vein. Satisfactory and safe access under ultrasound guidance. Satisfactory function, easy egress of blood and ingress of heparinized solution through all 3 ports. PROCEDURE: After obtaining informed consent, the patient was positioned supine at bedside. The right groin and adjacent areas were prepared with chlorhexidine and draped out with sterile linen. After the universal timeout the procedure commenced. A steriley sheathed ultrasound probe was used to evaluate the right femoral vein. Local anesthesia was infiltrated adjacent to the probe. Access into the right femoral was accomplished using a micropuncture needle followed, by micropuncture wire and then with a micropuncture catheter. This was followed by introduction of a 0.035 guidewire, the skin opening was enlarged slightly, serially larger dilators were now placed followed by introduction of a triaysis catheter. All of these transitions were smooth. Each lumen was aspirated of blood and irrigated with heparinized solution. The catheter was now sutured to the skin using 3-0 nylon. A Bio A patch was now applied, followed by sterile dressings. Caps were placed on the end of the each of the lumens. The procedure concluded. Copies dictated operative report to Dr. Cornelio Topete MD.
[2019-10-19] MEDS: PATIROMER 8.4 GM SUSP PACKET PO SCH (17:00)
--- NOTE | 2019-10-19 20:07 | PDOC PROGRESS REPORT ---
Subjective Progress Note for:: 10/19/19 Subjective:: Patient seen by the bedside, he is more oriented to time place and person since the PermCath for dialysis was discontinued yesterday the NEWTON could not be done today for some reason, scheduled for tomorrow, NEWTON is indicated especially in this patient with persistent MRSA septicemia to rule out endocarditis and also is important in determining duration of treatment with vancomycin. The bacteremia is probably related to the permcath,there was significant improvement in his sensorium since the catheter was discontinued Reason For Visit: RENAL MASS/ESRD/BACK PAIN Physical Exam Vital Signs: Temp Pulse Resp BP Pulse Ox 98.1 F 78 14 186/83 H 99 10/19/19 15:37 10/19/19 15:37 10/19/19 15:37 10/19/19 15:37 10/19/19 15:37 Intake & Output 10/18/19 10/19/19 10/20/19 06:59 06:59 06:59 Intake Total 335 195 0873 Output Total 0 489 Balance 150 -164 1076 Weight 89.8 kg 89.9 kg 89.9 kg General appearance: PRESENT: no acute distress Head exam: PRESENT: atraumatic, normocephalic Eye exam: PRESENT: PERRLA Ear exam: PRESENT: normal external ear exam Mouth exam: PRESENT: moist, tongue midline Neck exam: PRESENT: full ROM Respiratory exam: PRESENT: clear to auscultation dave Cardiovascular exam: PRESENT: RRR, +S1, +S2 Pulses: PRESENT: normal dorsalis pedis pul, +2 pedal pulses bilateral Vascular exam: PRESENT: normal capillary refill GI/Abdominal exam: PRESENT: normal bowel sounds, soft Rectal exam: PRESENT: deferred Neurological exam: PRESENT: alert, awake, oriented to person, oriented to place, oriented to time, oriented to situation, CN II-XII grossly intact. ABSENT: motor sensory deficit Psychiatric exam: PRESENT: appropriate affect, normal mood Skin exam: PRESENT: dry, intact, warm. ABSENT: cyanosis, rash Results Laboratory Results: 10/18/19 04:27 10/18/19 04:27 10/17/19 07:48 Blood Blood Culture (PCR) - Final Staphylococcus Aureus 10/17/19 08:57 Blood Blood Culture (PCR) - Final Staphylococcus Aureus 10/09/19 10/09/19 23:16 23:16 Creatine Kinase 121 CK-MB (CK-2) 0.57 Troponin I 0.112 Impressions: Abdomen/Pelvis CT 10/10/19 00:00 IMPRESSION: Prominent axillary nodes. Not definitely pathologic. Indeterminate nodes in the mediastinum. Solid right renal mass measuring over 6 cm. Atrophic kidneys. Probable Schmorl's noted L1. Well-circumscribed along the superior endplate without extension into the pedicles. Chest CT 10/10/19 00:00 IMPRESSION: Prominent axillary nodes. Not definitely pathologic. Indeterminate nodes in the mediastinum. Solid right renal mass measuring over 6 cm. Atrophic kidneys. Probable Schmorl's noted L1. Well-circumscribed along the superior endplate without extension into the pedicles. Lumbar Spine CT 10/10/19 03:49 IMPRESSION: 1. Solid-appearing mass at the upper pole of the right kidney, which has increased in size compared to the prior study. This is most compatible with malignancy. Recommend correlation with clinical history. 2. New lytic lesion within the L1 vertebral body, suggesting metastatic disease. 3. No acute fracture. Lumbar Spine MRI 10/10/19 06:22 IMPRESSION: 1. HOMOGENEOUS ROUND LESION IN THE SUPERIOR BODY OF THE L1 VERTEBRAL BODY DESCRIBED. THIS IS CONCERNING FOR A METASTATIC LESION. AN ATYPICAL SCHMORL'S NODE COULD BE ANOTHER POSSIBILITY BUT LESS LIKELY. MAY CONSIDER BONE SCAN TO EVALUATE THE FINDING IN THE L1 VERTEBRAL BODY AND TO DETERMINE IF THERE ARE ANY OTHER SKELETAL LESIONS IN THE REMAINDER OF THE BODY. 2. MILD CHRONIC DEGENERATIVE CHANGES DESCRIBED. NO SIGNIFICANT STENOSIS OR IMPINGEMENT. 3. HETEROGENOUS MASS IN THE RIGHT KIDNEY, NOT COMPLETELY IMAGED. Thoracic Spine MRI 10/10/19 06:22 IMPRESSION: NORMAL MRI THORACIC SPINE. NO EVIDENCE OF THORACIC VERTEBRAL METASTASIS. Chest X-Ray 10/16/19 10:42 IMPRESSION: Mild atelectasis at left lung base. 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
--- NOTE | 2019-10-19 21:02 | PDOC PROGRESS REPORT ---
Subjective Progress Note for:: 10/19/19 Subjective:: Patient seen by the bedside, patient is more alert oriented to time place and person since the catheter was discontinued Reason For Visit: RENAL MASS/ESRD/BACK PAIN Physical Exam Vital Signs: Temp Pulse Resp BP Pulse Ox 98.1 F 82 14 186/83 H 99 10/19/19 15:37 10/19/19 19:00 10/19/19 15:37 10/19/19 15:37 10/19/19 15:37 Intake & Output 10/18/19 10/19/19 10/20/19 06:59 06:59 06:59 Intake Total 538 979 8657 Output Total 0 489 Balance 150 -164 1076 Weight 89.8 kg 89.9 kg 89.9 kg General appearance: PRESENT: no acute distress Eye exam: PRESENT: PERRLA Respiratory exam: PRESENT: clear to auscultation dave Cardiovascular exam: PRESENT: +S1, +S2 GI/Abdominal exam: PRESENT: soft Neurological exam: PRESENT: alert Results Laboratory Results: 10/18/19 04:27 10/18/19 04:27 10/17/19 07:48 Blood Blood Culture (PCR) - Final Staphylococcus Aureus 10/17/19 08:57 Blood Blood Culture (PCR) - Final Staphylococcus Aureus 10/09/19 10/09/19 23:16 23:16 Creatine Kinase 121 CK-MB (CK-2) 0.57 Troponin I 0.112 Impressions: Abdomen/Pelvis CT 10/10/19 00:00 IMPRESSION: Prominent axillary nodes. Not definitely pathologic. Indeterminate nodes in the mediastinum. Solid right renal mass measuring over 6 cm. Atrophic kidneys. Probable Schmorl's noted L1. Well-circumscribed along the superior endplate without extension into the pedicles. Chest CT 10/10/19 00:00 IMPRESSION: Prominent axillary nodes. Not definitely pathologic. Indeterminate nodes in the mediastinum. Solid right renal mass measuring over 6 cm. Atrophic kidneys. Probable Schmorl's noted L1. Well-circumscribed along the superior endplate w ithout extension into the pedicles. Lumbar Spine CT 10/10/19 03:49 IMPRESSION: 1. Solid-appearing mass at the upper pole of the right kidney, which has increased in size compared to the prior study. This is most compatible with malignancy. Recommend correlation with clinical history. 2. New lytic lesion within the L1 vertebral body, suggesting metastatic disease. 3. No acute fracture. Lumbar Spine MRI 10/10/19 06:22 IMPRESSION: 1. HOMOGENEOUS ROUND LESION IN THE SUPERIOR BODY OF THE L1 VERTEBRAL BODY DESCRIBED. THIS IS CONCERNING FOR A METASTATIC LESION. AN ATYPICAL SCHMORL'S NODE COULD BE ANOTHER POSSIBILITY BUT LESS LIKELY. MAY CONSIDER BONE SCAN TO EVALUATE THE FINDING IN THE L1 VERTEBRAL BODY AND TO DETERMINE IF THERE ARE ANY OTHER SKELETAL LESIONS IN THE REMAINDER OF THE BODY. 2. MILD CHRONIC DEGENERATIVE CHANGES DESCRIBED. NO SIGNIFICANT STENOSIS OR IMPINGEMENT. 3. HETEROGENOUS MASS IN THE RIGHT KIDNEY, NOT COMPLETELY IMAGED. Thoracic Spine MRI 10/10/19 06:22 IMPRESSION: NORMAL MRI THORACIC SPINE. NO EVIDENCE OF THORACIC VERTEBRAL METASTASIS. Chest X-Ray 10/16/19 10:42 IMPRESSION: Mild atelectasis at left lung base. 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
[2019-10-19] MEDS: FAMOTIDINE 20 MG TABLET PO SCH (22:27)
[2019-10-20] MEDS ORDERED: NORMAL SALINE 1000 ML 1,000 ML IV PRN (05:00)
[2019-10-20] MEDS ORDERED: HEPARIN SOD (PORCINE) 1,000 UNIT/ML 10 ML VIAL IV PRN (05:00)
[2019-10-20 05:24] LABS: ABSOLUTE BASOPHILS # (AUTO) 0.1 10^3/uL (0.0-0.2); ABSOLUTE EOSINOPHILS # (AUTO) 0.1 10^3/uL (0.0-0.6); ABSOLUTE LYMPHOCYTES (AUTO) 0.8 10^3/uL (0.5-4.7); ABSOLUTE MONOCYTES (AUTO) 1.6 10^3/uL (0.1-1.4); ABSOLUTE NEUT (AUTO) 11.3 10^3/uL (1.7-8.2); BASOPHILS % (AUTO) 0.4 % (0-2); EOSINOPHILS % (AUTO) 0.4 % (0-6); HEMATOCRIT 31.1 % (37.9-51.0); HEMOGLOBIN 10.5 g/dL (13.5-17.0); LYMPHOCYTES % (AUTO) 5.8 % (13-45); MEAN CORPUSCULAR HEMOGLOBIN 29.5 pg (27.0-33.4); MEAN CORPUSCULAR HGB CONC 33.8 g/dL (32.0-36.0); MEAN CORPUSCULAR VOLUME 88 fl (80-97); MONOCYTES % (AUTO) 11.7 % (3-13); PLATELET COUNT 217 10^3/uL (150-450); RED BLOOD COUNT 3.56 10^6/uL (4.35-5.55); RED CELL DISTRIBUTION WIDTH 15.9 % (11.5-14.0); SEGMENTED NEUTROPHILS % (AUTO) 81.7 % (42-78); TOTAL CELLS COUNTED % (AUTO) 100 %; WHITE BLOOD COUNT 13.8 10^3/uL (4.0-10.5)
[2019-10-20 05:51] LABS: CALCIUM 8.5 mg/dL (8.4-10.2); GLUCOSE 117 mg/dL (75-110); POTASSIUM 5.6 mmol/L (3.6-5.0)
[2019-10-20 05:58] LABS: BLOOD UREA NITROGEN 119 mg/dL (7-20); CARBON DIOXIDE 22 mmol/L (22-30); CHLORIDE 94 mmol/L (98-107)
[2019-10-20 06:05] LABS: ANION GAP 19 (5-19)
[2019-10-20] MEDS: DOCUSATE SODIUM 100 MG CAPSULE PO SCH (10:09)
[2019-10-20] MEDS: AMIODARONE HCL 200 MG TABLET PO SCH ×2 (10:10→22:02)
[2019-10-20] MEDS ORDERED: PROPOFOL INJ 200 MG/20 ML VIAL IV ONE (10:42)
[2019-10-20] MEDS ORDERED: DEXTROSE 50%-WATER 25 GM/50 ML DISP.SYRIN IV PRN ×2 (13:38)
[2019-10-20] MEDS ORDERED: DEXTROSE 40% GEL 15 GM TUBE PO PRN ×2 (13:38)
[2019-10-20] MEDS ORDERED: GLUCAGON,HUMAN RECOMB 1 MG INJ SUBCUT PRN (13:38)
--- NOTE | 2019-10-20 13:53 | PDOC CONSULTATION ---
Consultation Consult Date: 10/19/19 Provider Consulted: JINA LOPEZ Consult reason:: Request for transesophageal echocardiogram History of Present Illness Admission Date/PCP: 10/10/19 08:58 СВЕТЛАНА WHEELER MD Patient complains of: Weakness History of Present Illness: OLINDA OCAMPO is a 58 year old male With the following active problems 1. End-stage renal disease on hemodialysis 2. Lymphedema 3. Right renal mass 4. Systemic hypertension 5. Paroxysmal atrial flutter 6. Bacteremia-MRSA Patient with the above active problems has developed bacteremia with MRSA. This is concerning for infective endocarditis. Patient has been treated with intravenous antibiotics. Transesophageal echocardiogram was requested for evaluation for infective endocarditis. On October 19, 2019 we attempted a transesophageal echocardiogram with moderate sedation. However patient had powerful gag reflex was was unable to swallow the probe. Thus we aborted the procedure. Again we had the patient scheduled today for procedure but unfortunately patient was not n.p.o. Past Medical History Cardiac Medical History: Reports: Congestive Heart Failure, DVT, Hyperlipidema, Hypertension Denies: Coronary Artery Disease, Myocardial Infarction Pulmonary Medical History: Reports: Asthma, Chronic Obstructive Pulmonary Disease (COPD) Denies: Bronchitis, Pneumonia Neurological Medical History: Denies: Seizures Renal/ Medical History: Reports: End Stage Renal Disease Musculoskeltal Medical History: Reports: Arthritis - "DAMAGED NERVE TO RIGHT LEG" Psychiatric Medical History: Denies: Depression Hematology: Denies: Anemia Past Surgical History Past Surgical History: Reports: Vascular Surgery - Right upper arm AV fistula, right and left PermCaths Social History Lives with: Family Smoking Status: Never Smoker Frequency of Alcohol Use: Occasional Hx Recreational Drug Use: No Drugs: None Hx Prescription Drug Abuse: No - Advance Directive Resuscitation Status: Full Code Family History Family History: Reviewed & Not Pertinent, Hypertension Parental Family History Reviewed: No - No familial illnesses Children Family History Reviewed: NA Sibling(s) Family History Reviewed.: NA Medication/Allergy Home Medications: Acetaminophen [Tylenol 325 mg Tablet] 650 mg PO Q4HP PRN 10/10/19 Albuterol Sulfate [Albuterol Sulfate Hfa] 2 puff IH Q4HP PRN 10/10/19 Amiodarone HCl [Cordarone 200 mg Tablet] 200 mg PO DAILY 10/10/19 Apixaban [Eliquis 2.5 mg Tablet] 2.5 mg PO Q12 10/10/19 Calcium Acetate [Phoslo 667 mg Capsule] 2,001 mg PO MEALS 10/10/19 Calcium Acetate [Phoslo 667 mg Capsule] 667 mg PO .BIDWITHSNACKS 10/10/19 Calcium Carbonate [Tums] 200 mg PO DAILYP PRN 10/10/19 Cinacalcet HCl [Sensipar 30 mg Tablet] 30 mg PO DAILY 10/10/19 Clonidine HCl [Catapres 0.1 mg Tablet] 0.1 mg PO DAILY 10/10/19 Metoprolol Tartrate [Lopressor 25 mg Tablet] 25 mg PO DAILY 10/10/19 Simvastatin 20 mg PO QHS 10/10/19 Allergies/Adverse Reactions: DRY GAMBRO DIALYZERS Allergy (Unknown, Uncoded 06/22/18 04:07) "BP drop, vomiting" PAPER TAPE Allergy (Uncoded 06/22/18 04:07) Rash Review of Systems Constitutional: PRESENT: weakness Eyes: PRESENT: as per HPI Nose, Mouth, and Throat: PRESENT: as per HPI Cardiovascular: PRESENT: palpitations Gastrointestinal: PRESENT: as per HPI Neurological: ABSENT: as per HPI, abnormal gait, abnormal movements, abnormal speech, confusion, convulsions, dizziness, focal weakness, frequent falls, lack of coordination, memory loss, numbness, paresthesias, restless legs, syncope, tingling, tremor(s), vertigo, weakness, other Physical Exam Vital Signs: Temp Pulse Resp BP Pulse Ox 97.8 F 82 14 169/95 H 99 10/20/19 11:35 10/20/19 11:35 10/20/19 11:35 10/20/19 11:35 10/20/19 11:35 Intake & Output 10/19/19 10/20/19 10/21/19 06:59 06:59 06:59 Intake Total 325 1076 120 Output Total 489 Balance -164 1076 120 Weight 89.9 kg 89.9 kg General appearance: PRESENT: no acute distress, cooperative, obese Head exam: PRESENT: atraumatic, normocephalic Eye exam: PRESENT: EOMI Mouth exam: PRESENT: moist Respiratory exam: PRESENT: symmetrical, unlabored Pulses: PRESENT: normal radial pulses GI/Abdominal exam: PRESENT: soft Rectal exam: PRESENT: deferred Extremities exam: PRESENT: other - Lymphedema. Neurological exam: PRESENT: alert, awake, oriented to person, oriented to place Psychiatric exam: PRESENT: appropriate affect Skin exam: PRESENT: dry, intact Results Laboratory Results: 10/20/19 04:51 10/20/19 04:51 10/20/19 10/20/19 04:51 04:51 WBC 13.8 H RBC 3.56 L Hgb 10.5 L Hct 31.1 L MCV 88 MCH 29.5 MCHC 33.8 RDW 15.9 H Plt Count 217 Seg Neutrophils % 81.7 H Sodium 135.0 L Potassium 5.6 H Chloride 94 L Carbon Dioxide 22 Anion Gap 19 BUN 119 H Creatinine 14.04 H Est GFR ( Amer) 4 L Glucose 117 H Calcium 8.5 10/17/19 08:57 Blood Blood Culture (PCR) - Final Staphylococcus Aureus 10/17/19 08:57 Blood Blood Culture - Final Mrsa (Meth Resis Staph Aureus) 10/17/19 07:48 Blood Blood Culture (PCR) - Final Staphylococcus Aureus 10/17/19 07:48 Blood Blood Culture - Final Mrsa (Meth Resis Staph Aureus) 10/09/19 10/09/19 23:16 23:16 Creatine Kinase 121 CK-MB (CK-2) 0.57 Troponin I 0.112 EKG Comments: Twelve-lead EKG. atrial flutter with rapid ventricular rate. Left bundle branch aberrancy Echocardiogram done this admission showed preserved ejection fraction with moderate pulmonary hypertension. Impressions: Abdomen/Pelvis CT 10/10/19 00:00 IMPRESSION: Prominent axillary nodes. Not definitely pathologic. Indeterminate nodes in the mediastinum. Solid right renal mass measuring over 6 cm. Atrophic kidneys. Probable Schmorl's noted L1. Well-circumscribed along the superior endplate without extension into the pedicles. Chest CT 10/10/19 00:00 IMPRESSION: Prominent axillary nodes. Not definitely pathologic. Indeterminate nodes in the mediastinum. Solid right renal mass measuring over 6 cm. Atrophic kidneys. Probable Schmorl's noted L1. Well-circumscribed along the superior endplate without extension into the pedicles. Lumbar Spine CT 10/10/19 03:49 IMPRESSION: 1. Solid-appearing mass at the upper pole of the right kidney, which has increased in size compared to the prior study. This is most compatible with malignancy. Recommend correlation with clinical history. 2. New lytic lesion within the L1 vertebral body, suggesting metastatic disease. 3. No acute fracture. Lumbar Spine MRI 10/10/19 06:22 IMPRESSION: 1. HOMOGENEOUS ROUND LESION IN THE SUPERIOR BODY OF THE L1 VERTEBRAL BODY DESCRIBED. THIS IS CONCERNING FOR A METASTATIC LESION. AN ATYPICAL SCHMORL'S NODE COULD BE ANOTHER POSSIBILITY BUT LESS LIKELY. MAY CONSIDER BONE SCAN TO EVALUATE THE FINDING IN THE L1 VERTEBRAL BODY AND TO DETERMINE IF THERE ARE ANY OTHER SKELETAL LESIONS IN THE REMAINDER OF THE BODY. 2. MILD CHRONIC DEGENERATIVE CHANGES DESCRIBED. NO SIGNIFICANT STENOSIS OR IMPINGEMENT. 3. HETEROGENOUS MASS IN THE RIGHT KIDNEY, NOT COMPLETELY IMAGED. Thoracic Spine MRI 10/10/19 06:22 IMPRESSION: NORMAL MRI THORACIC SPINE. NO EVIDENCE OF THORACIC VERTEBRAL METASTASIS. Chest X-Ray 10/16/19 10:42 IMPRESSION: Mild atelectasis at left lung base. Assessment & Plan - Diagnosis (1) Staphylococcus aureus bacteremia Is this a current diagnosis for this admission?: Yes Plan: MRSA bacteremia. Multiple other medical illnesses. Given persistent MRSA bacteremia will proceed with transesophageal e chocardiogram. An initial attempted performed the transesophageal echocardiogram with moderate sedation was unsuccessful due to powerful gag reflex. I do believe that the patient requires deeper sedation with anesthesia support. We had arranged at this afternoon. However patient was not n.p.o. The procedure has thus been scheduled for 2 PM 10/21/2019.
--- NOTE | 2019-10-20 17:00 | PDOC PROGRESS REPORT ---
Subjective Progress Note for:: 10/20/19 Subjective:: Patient seen by the bedside, he had dialysis today, NEWTON could not be done today because patient had a meal Reason For Visit: RENAL MASS/ESRD/BACK PAIN Physical Exam Vital Signs: Temp Pulse Resp BP Pulse Ox 98.0 F 84 16 186/94 H 98 10/20/19 15:15 10/20/19 15:15 10/20/19 15:15 10/20/19 15:15 10/20/19 15:15 Intake & Output 10/19/19 10/20/19 10/21/19 06:59 06:59 06:59 Intake Total 325 1076 120 Output Total 489 Balance -164 1076 120 Weight 89.9 kg 89.9 kg General appearance: PRESENT: no acute distress Eye exam: PRESENT: PERRLA Respiratory exam: PRESENT: clear to auscultation dave Cardiovascular exam: PRESENT: +S1, +S2 GI/Abdominal exam: PRESENT: soft Neurological exam: PRESENT: alert Results Laboratory Results: 10/20/19 04:51 10/20/19 04:51 10/20/19 10/20/19 04:51 04:51 WBC 13.8 H RBC 3.56 L Hgb 10.5 L Hct 31.1 L MCV 88 MCH 29.5 MCHC 33.8 RDW 15.9 H Plt Count 217 Seg Neutrophils % 81.7 H Sodium 135.0 L Potassium 5.6 H Chloride 94 L Carbon Dioxide 22 Anion Gap 19 BUN 119 H Creatinine 14.04 H Est GFR ( Amer) 4 L Glucose 117 H Calcium 8.5 10/17/19 08:57 Blood Blood Culture (PCR) - Final Staphylococcus Aureus 10/17/19 08:57 Blood Blood Culture - Final Mrsa (Meth Resis Staph Aureus) 10/17/19 07:48 Blood Blood Culture (PCR) - Final Staphylococcus Aureus 10/17/19 07:48 Blood Blood Culture - Final Mrsa (Meth Resis Staph Aureus) 10/09/19 10/09/19 23:16 23:16 Creatine Kinase 121 CK-MB (CK-2) 0.57 Troponin I 0.112 Impressions: Abdomen/Pelvis CT 10/10/19 00:00 IMPRESSION: Prominent axillary nodes. Not definitely pathologic. Indeterminate nodes in the mediastinum. Solid right renal mass measuring over 6 cm. Atrophic kidneys. Probable Schmorl's noted L1. Well-circumscribed along the superior endplate without extension into the pedicles. Chest CT 10/10/19 00:00 IMPRESSION: Prominent axillary nodes. Not definitely pathologic. Indeterminate nodes in the mediastinum. Solid right renal mass measuring over 6 cm. Atrophic kidneys. Probable Schmorl's noted L1. Well-circumscribed along the superior endplate without extension into the pedicles. Lumbar Spine CT 10/10/19 03:49 IMPRESSION: 1. Solid-appearing mass at the upper pole of the right kidney, which has increased in size compared to the prior study. This is most compatible with malignancy. Recommend correlation with clinical history. 2. New lytic lesion within the L1 vertebral body, suggesting metastatic disease. 3. No acute fracture. Lumbar Spine MRI 10/10/19 06:22 IMPRESSION: 1. HOMOGENEOUS ROUND LESION IN THE SUPERIOR BODY OF THE L1 VERTEBRAL BODY DESCRIBED. THIS IS CONCERNING FOR A METASTATIC LESION. AN ATYPICAL SCHMORL'S NODE COULD BE ANOTHER POSSIBILITY BUT LESS LIKELY. MAY CONSIDER BONE SCAN TO EVALUATE THE FINDING IN THE L1 VERTEBRAL BODY AND TO DETERMINE IF THERE ARE ANY OTHER SKELETAL LESIONS IN THE REMAINDER OF THE BODY. 2. MILD CHRONIC DEGENERATIVE CHANGES DESCRIBED. NO SIGNIFICANT STENOSIS OR IMPINGEMENT. 3. HETEROGENOUS MASS IN THE RIGHT KIDNEY, NOT COMPLETELY IMAGED. Thoracic Spine MRI 10/10/19 06:22 IMPRESSION: NORMAL MRI THORACIC SPINE. NO EVIDENCE OF THORACIC VERTEBRAL METASTASIS. Chest X-Ray 10/16/19 10:42 IMPRESSION: Mild atelectasis at left lung base. Assessment & Plan - Diagnosis (1) MRSA (methicillin resistant Staphylococcus aureus) septicemia Is this a current diagnosis for this admission?: Yes Plan: Continue IV antibiotic, vancomycin (2) Neoplasm of uncertain behavior of right kidney Is this a current diagnosis for this admission?: Yes (3) End stage renal disease on dialysis Is this a current diagnosis for this admission?: Yes Plan: Per nephrology (4) Lytic lesion of bone on x-ray Is this a current diagnosis for this admission?: Yes (5) Atrial flutter Qualifiers: Atrial flutter type: typical Qualified Code(s): I48.3 - Typical atrial flutter Is this a current diagnosis for this admission?: Yes (6) Metabolic encephalopathy Is this a current diagnosis for this admission?: Yes - Time Time Spent with patient: 25-34 minutes Level of Care: [facility]
[2019-10-20] MEDS: PATIROMER 8.4 GM SUSP PACKET PO SCH (19:03)
--- NOTE | 2019-10-20 19:41 | Progress Note ---
Provider Note Provider Note: Subjective: The patient is still drowsy. He denies any chest pain or shortness of breath. He was supposed to have a NEWTON today to make sure he does not have endocarditis in view of the positive blood cultures. But the patient was kept n.p.o. Yesterday could not have a NEWTON done due to the patient's gag reflex pre venting intubation of the NEWTON probe. Today the patient has been not been kept n.p.o. and surgery has been rescheduled for tomorrow. There is no evidence of recurrence of atrial flutter. There is no ventricular arrhythmias seen. PHYSICAL examination: The patient appears to be ill. He is mildly obese. Selected Entries 10/20/19 11:35 Temperature 97.8 F Temperature Oral Source Pulse Rate 82 Respiratory 14 Rate Blood Pressure 169/95 H Blood Pressure 119 Mean BP Location Left Arm BP Position Supine O2 Sat by Pulse 99 Oximetry Oxygen Flow 2.00 Rate Oxygen Delivery Nasal Cannula Method HEAD: Is atraumatic and normocephalic. EYES: Pupils are equal round regular reactive to light accommodation. External ocular movements are normal. There is no conjunctival pallor. There is no scleral icterus. EARS: Tympanic membranes are intact. External auditory canals are clear. NOSE: There is no deviated nasal septum. There is no inflammation of the nasal mucous membrane. MOUTH: Mucous membranes of mouth are moist. Tongue is moist. There is no ulcers in the mouth. There is no bleeding from the gums. THROAT: There is no redness of the oropharynx. There is no exudates. SKIN: There is no skin rashes. There is no petechia or ecchymosis. There is no skin lesions. NECK: Is supple. There is no JVD. Carotids equal there is no bruit. There is no lymphadenopathy. Trachea central. LUNGS: Lungs are clear to auscultation percussion, without any rhonchi rales or wheezing. THERE IS NO CHEST WALL TENDERNESS. Heart: S1, S2 heard normally. There is no S3 gallop. There is no S4 gallop. There is systolic murmur left sternal border and apex. Murmur of mitral regurgitation heard. . There is no rub. ABDOMEN: Soft. Nontender. There is no hepatosplenomegaly. All sounds are well heard. There is no tender areas of masses. EXTREMITIES: Femorals are diminished. There is no femoral bruits. Leg pulses are diminished. There is no pedal edema. There is diffuse swelling of the right upper extremity. There is no DVT or cellulitis. There is no cyanosis or clubbing. There is no calf tenderness. MARRIAGE AND FAMILY COUNSELOR: The patient is cons cious awake drowsy, but with with no focal deficits. PSYCHIATRIC: The patient is not agitated or anxious. Labs- All tests 24 hr 10/20/19 10/20/19 04:51 04:51 WBC 13.8 H RBC 3.56 L Hgb 10.5 L Hct 31.1 L MCV 88 MCH 29.5 MCHC 33.8 RDW 15.9 H Plt Count 217 Lymph % (Auto) 5.8 L Routt % (Auto) 11.7 Eos % (Auto) 0.4 Baso % (Auto) 0.4 Absolute Neuts (auto) 11.3 H Absolute Lymphs (auto) 0.8 Absolute Monos (auto) 1.6 H Absolute Eos (auto) 0.1 Absolute Basos (auto) 0.1 Seg Neutrophils % 81.7 H Sodium 135.0 L Potassium 5.6 H Chloride 94 L Carbon Dioxide 22 Anion Gap 19 BUN 119 H Creatinine 14.04 H Est GFR ( Amer) 4 L Est GFR (MDRD) Non-Af 4 L Glucose 117 H Calcium 8.5 Abdomen/Pelvis CT 10/10/19 00:00 IMPRESSION: Prominent axillary nodes. Not definitely pathologic. Indeterminate nodes in the mediastinum. Solid right renal mass measuring over 6 cm. Atrophic kidneys. Probable Schmorl's noted L1. Well-circumscribed along the superior endplate without extension into the pedicles. Chest CT 10/10/19 00:00 IMPRESSION: Prominent axillary nodes. Not definitely pathologic. Indeterminate nodes in the mediastinum. Solid right renal mass measuring over 6 cm. Atrophic kidneys. Probable Schmorl's noted L1. Well-circumscribed along the superior endplate without extension into the pedicles. Lumbar Spine CT 10/10/19 03:49 IMPRESSION: 1. Solid-appearing mass at the upper pole of the right kidney, which has increased in size compared to the prior study. This is most compatible with malignancy. Recommend correlation with clinical history. 2. New lytic lesion within the L1 vertebral body, suggesting metastatic disease. 3. No acute fracture. Lumbar Spine MRI 10/10/19 06:22 IMPRESSION: 1. HOMOGENEOUS ROUND LESION IN THE SUPERIOR BODY OF THE L1 VERTEBRAL BODY DESCRIBED. THIS IS CONCERNING FOR A METASTATIC LESION. AN ATYPICAL SCHMORL'S NODE COULD BE ANOTHER POSSIBILITY BUT LESS LIKELY. MAY CONSIDER BONE SCAN TO EVALUATE THE FINDING IN THE L1 VERTEBRAL BODY AND TO DETERMINE IF THERE ARE ANY OTHER SKELETAL LESIONS IN THE REMAINDER OF THE BODY. 2. MILD CHRONIC DEGENERATIVE CHANGES DESCRIBED. NO SIGNIFICANT STENOSIS OR IMPINGEMENT. 3. HETEROGENOUS MASS IN THE RIGHT KIDNEY, NOT COMPLETELY IMAGED. Thoracic Spine MRI 10/10/19 06:22 IMPRESSION: NORMAL MRI THORACIC SPINE. NO EVIDENCE OF THORACIC VERTEBRAL METASTASIS. Chest X-Ray 10/16/19 10:42 IMPRESSION: Mild atelectasis at left lung base. IMPRESSION/RECOMMENDATION: 1. 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 Patient for dialysis of the right leg lesion. Hence the patient's Eliquis has been discontinued. 2. Recent recurrent atrial flutter with rapid ventricular response. Patient back to sinus rhythm post IV amiodarone drip which is been discontinued. Will increase the patient's amiodarone to 200 mg p.o. twice daily. Patient has history of proximal small atrial flutter. 3. Hyperkalemia in a patient with end-stage renal disease. The patient is getting dialyzed. 4. . History of congestive heart failure secondary to volume overload during prior admission. At present compensated. 5. Hypertension: Well-controlled continue current medications. 6. END STAGE RENAL DISEASE: On hemodialysis. 7. History of hyperlipidemia. Continue statins 8. The patient's cardiac status is very stable. If the patient needs surgical removal of the renal mass the patient will be an acceptable cardiac risk for thi s procedure. 9. Murmur of mitral regurgitation: Mild mitral regurgitation by echocardiographi 10. Hyperkalemia: Nephrology on the case. 11. Moderate pulmonary hypertension. 12. Positive blood cultures patient being treated for infection. Hence biopsy is on hold. His permacath has been removed with this being the suspected cause of the patient's positive blood cultures. Patient for a NEWTON to see if the patient has endocarditis. Scheduled for tomorrow. I have asked the nurse to keep the patient n.p.o. after midnight. Medications reviewed. Medical regimen and management plan discussed with attending physician. Medical decision making is of moderate complexity. 40 minutes spent on the patient more than 50% of time spent in direct patient care. Will follow.
[2019-10-20] MEDS: VANCOMYCIN HCL 1,500 MG in DEXTROSE 5%-WATER 250 ML IV SCH (20:34)
--- NOTE | 2019-10-20 21:09 | PDOC PROGRESS REPORT ---
Subjective Progress Note for:: 10/20/19 Subjective:: I am seeing the patient during dialysis treatment this afternoon. Patient is awake and responding to questioning appropriately. He is tolerating dialysis except for elevated blood pressure. He tells me that he is able to eat a little bit now. He said is doing fine. Reason For Visit: RENAL MASS/ESRD/BACK PAIN Physical Exam Vital Signs: Temp Pulse Resp BP Pulse Ox 98.0 F 84 16 186/94 H 98 10/20/19 15:15 10/20/19 15:15 10/20/19 15:15 10/20/19 15:15 10/20/19 15:15 Intake & Output 10/19/19 10/20/19 10/21/19 06:59 06:59 06:59 Intake Total 325 1076 120 Output Total 489 Balance -164 1076 120 Weight 89.9 kg 89.9 kg Vitals during dialysis: Blood pressure 183/93, heart rate of 88, blood flow rate of 350 mL/min and dialysate flow rate of 800 mL/min. Exam: General appearance: PRESENT: no acute distress, cooperative, well-developed, well-nourished Head exam: PRESENT: atraumatic, normocephalic Eye exam: PRESENT: conjunctiva slightly pale, PERRLA. ABSENT: scleral icterus Neck exam: ABSENT: JVD Respiratory exam: PRESENT: Normal breath sounds. ABSENT: crackles, rales, rhonchi, unlabored, wheezes Cardiovascular exam: PRESENT: Regular rate rhythm -+S1, +S2. Grade 2/6 systolic murmur GI/Abdominal exam: PRESENT: normal bowel sounds, soft. ABSENT: guarding, mass, tenderness Extremities exam: ABSENT: No edema Neurological exam: PRESENT: alert, awake, oriented to person, place and time. Skin exam: PRESENT: dry, warm, Cardiovascular exam: PRESENT: +S1, +S2 GI/Abdominal exam: PRESENT: normal bowel sounds, soft. ABSENT: organomegaly, tenderness Results Laboratory Results: 10/20/19 04:51 10/20/19 04:51 10/20/19 10/20/19 04:51 04:51 WBC 13.8 H RBC 3.56 L Hgb 10.5 L Hct 31.1 L MCV 88 MCH 29.5 MCHC 33.8 RDW 15.9 H Plt Count 217 Seg Neutrophils % 81.7 H Sodium 135.0 L Potassium 5.6 H Chloride 94 L Carbon Dioxide 22 Anion Gap 19 BUN 119 H Creatinine 14.04 H Est GFR ( Amer) 4 L Glucose 117 H Calcium 8.5 10/17/19 08:57 Blood Blood Culture (PCR) - Final Staphylococcus Aureus 10/17/19 08:57 Blood Blood Culture - Final Mrsa (Meth Resis Staph Aureus) 10/17/19 07:48 Blood Blood Culture (PCR) - Final Staphylococcus Aureus 10/17/19 07:48 Blood Blood Culture - Final Mrsa (Meth Resis Staph Aureus) 10/09/19 10/09/19 23:16 23:16 Creatine Kinase 121 CK-MB (CK-2) 0.57 Troponin I 0.112 Impressions: Abdomen/Pelvis CT 10/10/19 00:00 IMPRESSION: Prominent axillary nodes. Not definitely pathologic. Indeterminate nodes in the mediastinum. Solid right renal mass measuring over 6 cm. Atrophic kidneys. Probable Schmorl's noted L1. Well-circumscribed along the superior endplate without extension into the pedicles. Chest CT 10/10/19 00:00 IMPRESSION: Prominent axillary nodes. Not definitely pathologic. Indeterminate nodes in the mediastinum. Solid right renal mass measuring over 6 cm. Atrophic kidneys. Probable Schmorl's noted L1. Well-circumscribed along the superior endplate without extension into the pedicles. Lumbar Spine CT 10/10/19 03:49 IMPRESSION: 1. Solid-appearing mass at the upper pole of the right kidney, which has increased in size compared to the prior study. This is most compatible with malignancy. Recommend correlation with clinical history. 2. New lytic lesion within the L1 vertebral body, suggesting metastatic disease. 3. No acute fracture. Lumbar Spine MRI 10/10/19 06:22 IMPRESSION: 1. HOMOGENEOUS ROUND LESION IN THE SUPERIOR BODY OF THE L1 VERTEBRAL BODY DESCRIBED. THIS IS CONCERNING FOR A METASTATIC LESION. AN ATYPICAL SCHMORL'S NODE COULD BE ANOTHER POSSIBILITY BUT LESS LIKELY. MAY CONSIDER BONE SCAN TO EVALUATE THE FINDING IN THE L1 VERTEBRAL BODY AND TO DETERMINE IF THERE ARE ANY OTHER SKELETAL LESIONS IN THE REMAINDER OF THE BODY. 2. MILD CHRONIC DEGENERATIVE CHANGES DESCRIBED. NO SIGNIFICANT STENOSIS OR IMPINGEMENT. 3. HETEROGENOUS MASS IN THE RIGHT KIDNEY, NOT COMPLETELY IMAGED. Thoracic Spine MRI 10/10/19 06:22 IMPRESSION: NORMAL MRI THORACIC SPINE. NO EVIDENCE OF THORACIC VERTEBRAL METASTASIS. Chest X-Ray 10/16/19 10:42 IMPRESSION: Mild atelectasis at left lung base. Assessment & Plan - Diagnosis (1) MRSA (methicillin resistant Staphylococcus aureus) septicemia Is this a current diagnosis for this admission?: Yes Plan: Patient has positive MRSA on 4 blood cultures done in 2 separate days on October 23 October 17. Patient is currently on vancomycin. PermCath was removed on 10/19 and patient is significantly clinically improved today. NEWTON to be done tomorrow. Continue vancomycin IV. (2) End stage renal disease on dialysis Is this a current diagnosis for this admission?: Yes Plan: We will do dialysis today for 3 hours, using the patient's temporary trialysis catheter, with 2 potassium bath, blood flow rate of 350 mL per minute, dialysate flow rate of 800 mL per minute, ultrafiltration 2 to 2.5 L as tolerated, no heparin and no Procrit. Patient is being monitored continuously throughout dialysis treatment. (3) Renal mass, right Is this a current diagnosis for this admission?: Yes Plan: Patient being evaluated by Dr. Bermeo, oncologist. Biopsy was placed on hold due to bacteremia. (4) Lytic lesion of bone on x-ray Is this a current diagnosis for this admission?: Yes Plan: This involves L1. The plan is to do kyphoplasty by Dr. Billings but again this is put on hold due to the patient's current bacteremia. (5) Metabolic encephalopathy Is this a current diagnosis for this admission?: Yes Plan: This is most likely secondary to septicemia. Significantly improved after r emoval of permacath . Almost at baseline mental state. (6) Hyperkalemia Is this a current diagnosis for this admission?: Yes Plan: We will use low potassium bath during dialysis treatment. Continue Veltassa and low potassium diet. (7) Hypertension Is this a current diagnosis for this admission?: Yes Plan: Uncontrolled. Restart clonidine 0.1 mg p.o. every 12 hours tonight. (8) Paroxysmal atrial flutter Is this a current diagnosis for this admission?: Yes (9) Lymphedema of right upper extremity Is this a current diagnosis for this admission?: Yes Plan: This is chronic. - Time Time with patient: 15-25 minutes
[2019-10-20] MEDS: CLONIDINE HCL 0.1 MG TABLET PO SCH (22:00)
[2019-10-20] MEDS: FAMOTIDINE 20 MG TABLET PO SCH (22:00)
[2019-10-21] MEDS ORDERED: PROPOFOL INJ 200 MG/20 ML VIAL IV ONE ×2 (10:59→13:41)
[2019-10-21] MEDS: DOCUSATE SODIUM 100 MG CAPSULE PO SCH (11:54)
[2019-10-21] MEDS: CLONIDINE HCL 0.1 MG TABLET PO SCH ×3 (11:54→21:18)
[2019-10-21] MEDS: AMIODARONE HCL 200 MG TABLET PO SCH (11:54)
[2019-10-21 12:10] LABS: BLOOD UREA NITROGEN 95 mg/dL (7-20); CALCIUM 8.7 mg/dL (8.4-10.2); CARBON DIOXIDE 21 mmol/L (22-30); CHLORIDE 94 mmol/L (98-107); GLUCOSE 108 mg/dL (75-110); POTASSIUM 5.2 mmol/L (3.6-5.0)
[2019-10-21 12:23] LABS: ANION GAP 21 (5-19)
[2019-10-21] MEDS ORDERED: MIDAZOLAM 2 MG/2 ML INJ ONE (13:41)
[2019-10-21] MEDS ORDERED: CLONIDINE HCL INJ/PF 1000 MCG/10 ML SDV INJ ONE (16:15)
[2019-10-21] MEDS ORDERED: CLONIDINE HCL 0.1 MG TABLET PO ONE (16:20)
--- NOTE | 2019-10-21 17:13 | Progress Note ---
Provider Note Provider Note: CARDIOLOGY PROGRESS NOTE by Dr. Amanda Raines on 10/21/2019. SUBJECTIVE: The patient is back from his NEWTON. As per Dr. Curran who contacted me on the telephone stating that the patient has moderate aortic regurgitation. There is also a mitral valve vegetation with mild mitral regurgitation. The patient is at present more awake and alert wants to eat. He denies any chest pain or discomfort. There is no shortness of breath. There is no recurrence of atrial flutter. There is no ventricular arrhythmia seen on the monitor. PHYSICAL EXAMINATION: The patient appears to be ill. He is well-groomed. But in spite of this in no acute distress. Selected Entries 10/21/19 10/21/19 10/21/19 10:00 11:48 15:07 Temperature 98.6 F Pulse Rate 82 Respiratory 16 16 Rate Blood Pressure 175/80 H 170/70 H Blood Pressure 111 Mean BP Location Left Arm O2 Sat by Pulse 100 97 Oximetry Oxygen Delivery Room Air Method ( includes room air) Oxygen Delivery Room Air Method HEAD: Is atraumatic and normocephalic. EYES: Pupils are equal round regular reactive to light accommodation. External ocular movements are normal. There is no conjunctival pallor. There is no scleral icterus. EARS: Tympanic membranes are intact. External auditory canals are clear. NOSE: There is no deviated nasal septum. There is no inflammation of the nasal mucous membrane. MOUTH: Mucous membranes of mouth are moist. Tongue is moist. There is no ulcers in the mouth. There is no bleeding from the gums. THROAT: There is no redness of the oropharynx. There is no exudates. SKIN: There is no skin rashes. There is no petechia or ecchymosis. There is no skin lesions. NECK: Is supple. There is no JVD. Carotids equal there is no bruit. There is no lymphadenopathy. Trachea central. LUNGS: Lungs are clear to auscultation percussion, without any rhonchi rales or wheezing. THERE IS NO CHEST WALL TENDERNESS. Heart: S1, S2 heard normally. There is no S3 gallop. There is no S4 gallop. There is systolic murmur left sternal border and apex. Murmur of mitral regurgitation heard. . There is no rub. ABDOMEN: Soft. Nontender. There is no hepatosplenomegaly. All sounds are well heard. There is no tender areas of masses. EXTREMITIES: Femorals are diminished. There is no femoral bruits. Leg pulses are diminished. There is no pedal edema. There is diffuse swelling of the right upper extremity. There is no DVT or cellulitis. There is no cyanosis or clubbing. There is no calf tenderness. DELIMER: The patient is conscious awake drowsy, but with with no focal deficits. PSYCHIATRIC: The patient is not agitated or anxious. Labs- All tests 24 hr 10/21/19 11:15 Sodium 136.2 L Potassium 5.2 H Chloride 94 L Carbon Dioxide 21 L Anion Gap 21 H BUN 95 H Creatinine 10.91 H Est GFR ( Amer) 6 L Est GFR (MDRD) Non-Af 5 L Glucose 108 Calcium 8.7 Abdomen/Pelvis CT 10/10/19 00:00 IMPRESSION: Prominent axillary nodes. Not definitely pathologic. Indeterminate nodes in the mediastinum. Solid right renal mass measuring over 6 cm. Atrophic kidneys. Probable Schmorl's noted L1. Well-circumscribed along the superior endplate without extension into the pedicles. Chest CT 10/10/19 00:00 IMPRESSION: Prominent axillary nodes. Not definitely pathologic. Indeterminate nodes in the mediastinum. Solid right renal mass measuring over 6 cm. Atrophic kidneys. Probable Schmorl's noted L1. Well-circumscribed along the superior endplate without extension into the pedicles. Lumbar Spine CT 10/10/19 03:49 IMPRESSION: 1. Solid-appearing mass at the upper pole of the right kidney, which has increased in size compared to the prior study. This is most compatible with malignancy. Recommend correlation with clinical history. 2. New lytic lesion within the L1 vertebral body, suggesting metastatic disease. 3. No acute fracture. Lumbar Spine MRI 10/10/19 06:22 IMPRESSION: 1. HOMOGENEOUS ROUND LESION IN THE SUPERIOR BODY OF THE L1 VERTEBRAL BODY DESCRIBED. THIS IS CONCERNING FOR A METASTATIC LESION. AN ATYPICAL SCHMORL'S NODE COULD BE ANOTHER POSSIBILITY BUT LESS LIKELY. MAY CONSIDER BONE SCAN TO EVALUATE THE FINDING IN THE L1 VERTEBRAL BODY AND TO DETERMINE IF THERE ARE ANY OTHER SKELETAL LESIONS IN THE REMAINDER OF THE BODY. 2. MILD CHRONIC DEGENERATIVE CHANGES DESCRIBED. NO SIGNIFICANT STENOSIS OR IMPINGEMENT. 3. HETEROGENOUS MASS IN THE RIGHT KIDNEY, NOT COMPLETELY IMAGED. Thoracic Spine MRI 10/10/19 06:22 IMPRESSION: NORMAL MRI THORACIC SPINE. NO EVIDENCE OF THORACIC VERTEBRAL METASTASIS. Chest X-Ray 10/16/19 10:42 IMPRESSION: Mild atelectasis at left lung base. IMPRESSION/RECOMMENDATION: 1. 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 Patient for dialysis of the right leg lesion. Hence the patient's Eliquis has been discontinued. 2. Recent recurrent atrial flutter with rapid ventricular response. Patient back to sinus rhythm post IV amiodarone drip which is been discontinued. Will increase the patient's amiodarone to 200 mg p.o. twice daily. Patient has history of proximal small atrial flutter. We will cut back the patient's amiodarone to 200 mg once a day. 3. Hyperkalemia in a patient with end-stage renal disease. The patient is getting dialyzed. The patient's potassium today is 5.2. 4. . History of congestive heart failure secondary to volume overload during prior admission. At present compensated. 5. Hypertension: At present uncontrolled continue current medications. Increase the patient's clonidine to 0.1 mg p.o. every 8 hours. 6. END STAGE RENAL DISEASE: On hemodialysis. 7. History of hyperlipidemia. Continue statins 8. Murmur of mitral regurgitation: Mild mitral regurgitation by echocardiography. 9. Hyperkalemia: Nephrology on the case. 10. Moderate pulmonary hypertension. 11. 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 Clinically and by NEWTON no significant mitral regurgitation. Continue antibiotics. Consider Twilight ID consult. Echo findings discussed with the patient. Medications reviewed. Medical regimen and management plan discussed with attending physician. Medical decision making is of high complexity, in view of the need to adjust the patient's medications to control his blood pressure.. 40 minutes spent on the patient more than 50% of time spent in direct patient care. Will follow.
--- NOTE | 2019-10-21 17:58 | PDOC PROGRESS REPORT ---
Subjective Progress Note for:: 10/21/19 Subjective:: Patient seen by the bedside, he had NEWTON done today, he has mitral valve endocarditis with vegetations demonstrated on the mitral valve. The treatment [place] valve endocarditis due to MRSA is vancomycin for 6 weeks, I reviewed the literature on the recent recommendation for [place] valve endocarditis, the recommendation is vancomycin for 6 weeks however there has been a number of reports of vancomycin treatment failure in serious infection due to MRSA in the wound when isolates are proving to be susceptible using current microbiologic testing methods Reason For Visit: RENAL MASS/ESRD/BACK PAIN Physical Exam Vital Signs: Temp Pulse Resp BP Pulse Ox 98.1 F 74 16 156/74 H 100 10/21/19 16:21 10/21/19 16:21 10/21/19 16:21 10/21/19 16:21 10/21/19 16:21 Intake & Output 10/20/19 10/21/19 10/22/19 06:59 06:59 06:59 Intake Total 1076 630 Output Total 2100 Balance 1076 -1470 Weight 89.9 kg 90 kg General appearance: PRESENT: no acute distress Eye exam: PRESENT: PERRLA Respiratory exam: PRESENT: clear to auscultation dave Cardiovascular exam: PRESENT: +S1, +S2, systolic murmur GI/Abdominal exam: PRESENT: soft Neurological exam: PRESENT: alert Results Laboratory Results: 10/20/19 04:51 10/21/19 11:15 10/21/19 11:15 Sodium 136.2 L Potassium 5.2 H Chloride 94 L Carbon Dioxide 21 L Anion Gap 21 H BUN 95 H Creatinine 10.91 H Est GFR ( Amer) 6 L Glucose 108 Calcium 8.7 10/09/19 10/09/19 23:16 23:16 Creatine Kinase 121 CK-MB (CK-2) 0.57 Troponin I 0.112 Impressions: Abdomen/Pelvis CT 10/10/19 00:00 IMPRESSION: Prominent axillary nodes. Not definitely pathologic. Indeterminate nodes in the mediastinum. Solid right renal mass measuring over 6 cm. Atrophic kidneys. Probable Schmorl's noted L1. Well-circumscribed along the superior endplate without extension into the pedicles. Chest CT 10/10/19 00:00 IMPRESSION: Prominent axillary nodes. Not definitely pathologic. Indeterminate nodes in the mediastinum. Solid right renal mass measuring over 6 cm. Atrophic kidneys. Probable Schmorl's noted L1. Well-circumscribed along the superior endplate without extension into the pedicles. Lumbar Spine CT 10/10/19 03:49 IMPRESSION: 1. Solid-appearing mass at the upper pole of the right kidney, which has increased in size compared to the prior study. This is most compatible with malignancy. Recommend correlation with clinical history. 2. New lytic lesion within the L1 vertebral body, suggesting metastatic disease. 3. No acute fracture. Lumbar Spine MRI 10/10/19 06:22 IMPRESSION: 1. HOMOGENEOUS ROUND LESION IN THE SUPERIOR BODY OF THE L1 VERTEBRAL BODY DESCRIBED. THIS IS CONCERNING FOR A METASTATIC LESION. AN ATYPICAL SCHMORL'S NODE COULD BE ANOTHER POSSIBILITY BUT LESS LIKELY. MAY CONSIDER BONE SCAN TO EVALUATE THE FINDING IN THE L1 VERTEBRAL BODY AND TO DETERMINE IF THERE ARE ANY OTHER SKELETAL LESIONS IN THE REMAINDER OF THE BODY. 2. MILD CHRONIC DEGENERATIVE CHANGES DESCRIBED. NO SIGNIFICANT STENOSIS OR IMPINGEMENT. 3. HETEROGENOUS MASS IN THE RIGHT KIDNEY, NOT COMPLETELY IMAGED. Thoracic Spine MRI 10/10/19 06:22 IMPRESSION: NORMAL MRI THORACIC SPINE. NO EVIDENCE OF THORACIC VERTEBRAL METASTASIS. Chest X-Ray 10/16/19 10:42 IMPRESSION: Mild atelectasis at left lung base. 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 Is this a current diagnosis for this admission?: Yes (3) End stage renal disease on dialysis Is this a current diagnosis for this admission?: Yes (4) Lytic lesion of bone on x-ray Is this a current diagnosis for this admission?: Yes (5) Atrial flutter Qualifiers: Atrial flutter type: typical Qualified Code(s): I48.3 - Typical atrial flutter Is this a current diagnosis for this admission?: Yes (6) Metabolic encephalopathy Is this a current diagnosis for this admission?: Yes Plan: Patient is more coherent, oriented to time place and person (7) Endocarditis due to methicillin susceptible Staphylococcus aureus (MSSA) Is this a current diagnosis for this admission?: Yes Plan: Patient will need vancomycin for 6 weeks that is the recommended duration for [place] valve endocarditis (8) Aortic valve regurgitation Qualifiers: Cardiac valve disease etiology: nonrheumatic Qualified Code(s): I35.1 - Nonrheumatic aortic (valve) insufficiency Is this a current diagnosis for this admission?: Yes - Time Time Spent with patient: 35 or more minutes Level of Care: IMCU
[2019-10-21] MEDS: PATIROMER 8.4 GM SUSP PACKET PO SCH (18:38)
--- NOTE | 2019-10-21 18:44 | XCELERA REPORT ---
Study ID: [id number] Transesophageal Echocardiogram Report Name: OLINDA OCAMPO Age: 58 yrs Gender: Male : 1960 Patient Status: Inpatient Patient Location: [address] [place] [address] Study Date: 10/21/2019 02:49 PM History: MRSA Bacteremia Reason For Study: Infective Endocarditis Ordering Physician: JINA LOPEZ Performed By: Regi Hull Interpretation Summary Left ventricular systolic function is normal. Ejection Fraction = >55%. The right ventricle is normal in size and function. Mass seen on anterior mitral leaflet suggestive of vegetation. 1.1 cm X 0.9 cm on AML There is mild to moderate mitral regurgitation. There is mild tricuspid regurgitation. Small pericardial effusion. Procedure A complete two-dimensional transesophageal echocardiogram was performed (2D, spectral and color flow Doppler). Informed consent for Transesophageal Echocardiogram, and use of a contrast agent as needed, was obtained prior to the procedure. The patient was brought to the OR in a fasting state. An intravenous line was placed. A topical anesthetic agent was used for oropharangeal anesthesia. A bite block was inserted. The patient's vital signs, including blood pressure, heart rate, pulse oximetry and cardiac rhythm were monitored thoughout the procedure. A multifrequency, mutliplane transesophageal echocardiographic endoscope was inserted and manipulated in the standard fashion to achieve multiplane views. The transesophageal probe was passed without difficulty. The usual views were obtained; basal, mid- esophageal, transgastric and aortic views. The patient tolerated the procedure well without evidence of orophangeal or esophageal trauma. Subsequent to all the images being obtained the probe was removed with out trauma. Left Ventricle The left ventricle is grossly normal size. There is moderate concentric left ventricular hypertrophy. Left ventricular systolic function is normal. Ejection Fraction = >55%. No regional wall motion abnormalities noted. Right Ventricle The right ventricle is normal in size and function. Atria The interatrial septum is intact with no evidence for an atrial septal defect. The thickening of interatrial septum suggests lipomatous hypertrophy. Mitral Valve The mitral valve leaflets appear thickened, but open well. Mass seen on anterior mitral leaflet suggestive of vegetation. 1.1 cm X 0.9 cm on AML. There is mild to moderate mitral regurgitation. Tricuspid Valve The tricuspid valve is not well visualized, but is grossly normal. The tricuspid valve is normal in structure and function. There is no tricuspid valve vegetation. There is mild tricuspid regurgitation. Aortic Valve The aortic valve is trileaflet. There is no aortic valvular vegetation. No hemodynamically significant valvular aortic stenosis. Mild to moderate aortic regurgitation. Pulmonic Valve The pulmonic valve is not well visualized. Arteries The aortic root is normal size. Pericardium Small pericardial effusion. : JINA LOPEZ Anil
[2019-10-21] MEDS: FAMOTIDINE 20 MG TABLET PO SCH (21:19)
[2019-10-22] MEDS ORDERED: NORMAL SALINE 1000 ML 1,000 ML IV PRN (05:00)
[2019-10-22] MEDS ORDERED: HEPARIN SOD (PORCINE) 1,000 UNIT/ML 10 ML VIAL IV PRN (05:00)
[2019-10-22 06:13] LABS: ABSOLUTE BASOPHILS # (AUTO) 0.1 10^3/uL (0.0-0.2); ABSOLUTE EOSINOPHILS # (AUTO) 0.1 10^3/uL (0.0-0.6); ABSOLUTE LYMPHOCYTES (AUTO) 0.7 10^3/uL (0.5-4.7); ABSOLUTE MONOCYTES (AUTO) 1.1 10^3/uL (0.1-1.4); BASOPHILS % (AUTO) 0.4 % (0-2); EOSINOPHILS % (AUTO) 0.5 % (0-6); HEMATOCRIT 32.1 % (37.9-51.0); HEMOGLOBIN 10.9 g/dL (13.5-17.0); LYMPHOCYTES % (AUTO) 5.3 % (13-45); MEAN CORPUSCULAR HEMOGLOBIN 29.6 pg (27.0-33.4); MEAN CORPUSCULAR HGB CONC 33.9 g/dL (32.0-36.0); MEAN CORPUSCULAR VOLUME 87 fl (80-97); MONOCYTES % (AUTO) 8.7 % (3-13); PLATELET COUNT 247 10^3/uL (150-450); RED BLOOD COUNT 3.67 10^6/uL (4.35-5.55); RED CELL DISTRIBUTION WIDTH 15.8 % (11.5-14.0); SEGMENTED NEUTROPHILS % (AUTO) 85.1 % (42-78); TOTAL CELLS COUNTED % (AUTO) 100 %; WHITE BLOOD COUNT 12.9 10^3/uL (4.0-10.5)
[2019-10-22] MEDS: CLONIDINE HCL 0.1 MG TABLET PO SCH ×3 (06:24→21:27)
[2019-10-22 06:25] LABS: CALCIUM 8.7 mg/dL (8.4-10.2); GLUCOSE 98 mg/dL (75-110)
[2019-10-22] MEDS: OXYCODONE HCL IR 5 MG TABLET PO PRN (06:26)
[2019-10-22 06:27] LABS: VANCOMYCIN,TROUGH 36.4 ug/mL (5.0-20.0)
[2019-10-22 06:30] LABS: CARBON DIOXIDE 20 mmol/L (22-30); CHLORIDE 94 mmol/L (98-107)
[2019-10-22 06:33] LABS: BLOOD UREA NITROGEN 120 mg/dL (7-20)
[2019-10-22 06:36] LABS: ANION GAP 20 (5-19)
[2019-10-22 06:38] LABS: POTASSIUM 6.2 mmol/L (3.6-5.0)
--- NOTE | 2019-10-22 12:14 | PDOC PROGRESS REPORT ---
Subjective Progress Note for:: 10/22/19 Subjective:: I am seeing the patient during dialysis treatment this morning. Patient does not really have any new complaints. He denies any chest pains, shortness of breath or back pain. He is tolerating dialysis and is laying in bed comfortably. He underwent NEWTON yesterday with Dr. 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 We held the PermCath placement yesterday with Dr. Topete due to the NEWTON. I discussed this with Dr. Topete and we agreed that hopefully we will get a get a negative set of blood cultures before placing in another PermCath for him to be able to go home and received IV vancomycin at dialysis as an outpatient. We are getting another set of blood culture during dialysis treatment today. Reason For Visit: RENAL MASS/ESRD/BACK PAIN Physical Exam Vital Signs: Temp Pulse Resp BP Pulse Ox 97.4 F 69 18 146/85 H 99 10/22/19 08:07 10/22/19 08:07 10/22/19 08:07 10/22/19 08:07 10/22/19 08:07 Intake & Output 10/21/19 10/22/19 10/23/19 06:59 06:59 06:59 Intake Total 630 370 Output Total 2100 0 Balance -1470 370 Weight 90 kg 86.8 kg Vitals during dialysis: Blood pressure of 169/89, heart rate of 69, blood flow rate of 350 mL/min and dialysate flow rate of 800 mL/min. Exam: General appearance: PRESENT: no acute distress, cooperative, well-developed, well-nourished Head exam: PRESENT: atraumatic, normocephalic Eye exam: PRESENT: conjunctiva slightly pale, PERRLA. ABSENT: scleral icterus Neck exam: ABSENT: JVD Respiratory exam: PRESENT: Diminished breath sounds. ABSENT: crackles, rales, rhonchi, unlabored, wheezes Cardiovascular exam: PRESENT: Regular rate rhythm -+S1, +S2. Grade 2/6 systolic murmur ABSENT: diastolic murmur GI/Abdominal exam: PRESENT: normal bowel sounds, soft. ABSENT: guarding, mass, tenderness Extremities exam: ABSENT: No edema; right arm chronic lymphedema. Neurological exam: PRESENT: alert, awake, oriented to person, place and time. Skin exam: PRESENT: dry, warm, Cardiovascular exam: PRESENT: +S1, +S2 GI/Abdominal exam: PRESENT: normal bowel sounds, soft. ABSENT: organomegaly, tenderness Results Laboratory Results: 10/22/19 05:02 10/22/19 05:02 10/21/19 10/22/19 10/22/19 11:15 05:02 05:02 WBC 12.9 H RBC 3.67 L Hgb 10.9 L Hct 32.1 L MCV 87 MCH 29.6 MCHC 33.9 RDW 15.8 H Plt Count 247 Seg Neutrophils % 85.1 H Sodium 136.2 L 134.2 L Potassium 5.2 H 6.2 H* D Chloride 94 L 94 L Carbon Dioxide 21 L 20 L Anion Gap 21 H 20 H BUN 95 H 120 H D Creatinine 10.91 H 12.30 H Est GFR ( Amer) 6 L 5 L Glucose 108 98 Calcium 8.7 8.7 10/09/19 10/09/19 23:16 23:16 Creatine Kinase 121 CK-MB (CK-2) 0.57 Troponin I 0.112 Impressions: Abdomen/Pelvis CT 10/10/19 00:00 IMPRESSION: Prominent axillary nodes. Not definitely pathologic. Indeterminate nodes in the mediastinum. Solid right renal mass measuring over 6 cm. Atrophic kidneys. Probable Schmorl's noted L1. Well-circumscribed along the superior endplate without extension into the pedicles. Chest CT 10/10/19 00:00 IMPRESSION: Prominent axillary nodes. Not definitely pathologic. Indeterminate nodes in the mediastinum. Solid right renal mass measuring over 6 cm. Atrophic kidneys. Probable Schmorl's noted L1. Well-circumscribed along the superior endplate without extension into the pedicles. Lumbar Spine CT 10/10/19 03:49 IMPRESSION: 1. Solid-appearing mass at the upper pole of the right kidney, which has increased in size compared to the prior study. This is most compatible with malignancy. Recommend correlation with clinical history. 2. New lytic lesion within the L1 vertebral body, suggesting metastatic disease. 3. No acute fracture. Lumbar Spine MRI 10/10/19 06:22 IMPRESSION: 1. HOMOGENEOUS ROUND LESION IN THE SUPERIOR BODY OF THE L1 VERTEBRAL BODY DESCRIBED. THIS IS CONCERNING FOR A METASTATIC LESION. AN ATYPICAL SCHMORL'S NODE COULD BE ANOTHER POSSIBILITY BUT LESS LIKELY. MAY CONSIDER BONE SCAN TO EVALUATE THE FINDING IN THE L1 VERTEBRAL BODY AND TO DETERMINE IF THERE ARE ANY OTHER SKELETAL LESIONS IN THE REMAINDER OF THE BODY. 2. MILD CHRONIC DEGENERATIVE CHANGES DESCRIBED. NO SIGNIFICANT STENOSIS OR IMPINGEMENT. 3. HETEROGENOUS MASS IN THE RIGHT KIDNEY, NOT COMPLETELY IMAGED. Thoracic Spine MRI 10/10/19 06:22 IMPRESSION: NORMAL MRI THORACIC SPINE. NO EVIDENCE OF THORACIC VERTEBRAL METASTASIS. Chest X-Ray 10/16/19 10:42 IMPRESSION: Mild atelectasis at left lung base. Assessment & Plan - Diagnosis (1) MRSA (methicillin resistant Staphylococcus aureus) septicemia Is this a current diagnosis for this admission?: Yes Plan: Patient has positive MRSA on 4 blood cultures done in 2 separate days on October 23 October 17. Patient is currently on vancomycin since 10/14/2019. PermCath was removed on 10/19 and patient is significantly clinically improved today. NEWTON showed mitral valve endocarditis. Patient would need at least 6 weeks of IV antibiotics with vancomycin. Will repeat 2 sets of blood cultures again during dialysis today. His vancomycin trough level is 36.4 today so I will hold the vancomycin dose today and repeat the vancomycin trough level on Friday morning. I have spoken to the pharmacist myself to follow-up with the vancomycin trough level on Friday and to re-dose and adjust vancomycin dosing after that trough level. (2) Endocarditis of mitral valve Is this a current diagnosis for this admission?: Yes Plan: Diagnosed via NEWTON by Dr. Curran on 10/21/2019. (3) End stage renal disease on dialysis Is this a current diagnosis for this admission?: Yes Plan: We will do dialysis today for 3 hours, using the patient's temporary trialysis catheter, with 1K for an hour followed by 2 potassium bath, blood flow rate of 350 mL per minute, dialysate flow rate of 800 mL per minute, ultrafiltration 3.5-4 L as tolerated, no heparin and no Procrit. Patient is being monitored continuously throughout dialysis treatment. Treatment plan discussed with our dialysis nurse Laney today. PermCath placement postponed yesterday. Per my conversation with Dr. Topete, PermCath will be tentatively rescheduled for placement on Friday next week. We will revisit this plan on Friday. (4) Renal mass, right Is this a current diagnosis for this admission?: Yes Plan: Patient being evaluated by Dr. Bermeo, oncologist. Biopsy was placed on hold due to bacteremia. (5) Lytic lesion of bone on x-ray Is this a current diagnosis for this admission?: Yes Plan: This involves L1. The plan is to do kyphoplasty by Dr. Billings but again this is put on hold due to the patient's current bacteremia. (6) Metabolic encephalopathy Is this a current diagnosis for this admission?: Yes Plan: This is most likely secondary to septicemia. Significantly improved after removal of permacath . Almost at baseline mental state. (7) Hyperkalemia Is this a current diagnosis for this admission?: Yes Plan: We will use low potassium bath during dialysis treatment. Continue Veltassa and low potassium diet. (8) Hypertension Is this a current diagnosis for this admission?: Yes Plan: Uncontrolled. Restart clonidine 0.1 mg p.o. every 12 hours . (9) Paroxysmal atrial flutter Is this a current diagnosis for this admission?: Yes (10) Lymphedema of right upper extremity Is this a current diagnosis for this admission?: Yes Plan: This is chronic. - Time Time with patient: Greater than 35 minutes
[2019-10-22] MEDS: DOCUSATE SODIUM 100 MG CAPSULE PO SCH (15:15)
[2019-10-22] MEDS: AMIODARONE HCL 200 MG TABLET PO SCH (15:15)
--- NOTE | 2019-10-22 16:25 | Progress Note ---
Provider Note Provider Note: ID Telephone Consultation Note Asked to review chart by Pharmacy for pt Marshall See. He is not seen or examined. He is a 58 year old man who was admitted to [facility] [facility] on 10/10/19 with c/o low back/R flank pain increasing over past 1-2 weeks. He has asociated weight loss over past 60 months. PMH includes ESRD on HD through permcath access, HTN, AF, HLD, CHF. Imaging of the spine (CT w/o contrast lumbar spine, MRI without contrast) revealed homogeneous round lesion in L1 vertebral body concerning for metastatic lesion; no abnormalities of adjacent disc noted. CT of abd/pelvis w/o contrast showed a solid right renal mass over 6 cm in size. On 10/11, pt had a single temperature 100.5 F, which recurred again on 10/13. Blood cultures obtained on 10/13/19 were positive for MRSA in both sets drawn more than 1 hour apart. Repeat blood cultures on 10/17 after 48h of antibiotics continued to grow MRSA in both sets. NEWTON was pursued and revealed a 1.1 x 0.9 cm vegetation on the anterior mitral valve leaflet. Pt has remained on IV vancomycin, and repeat blood cultures have been sent today 10/22. Impression/Recommendations complicated MRSA bacteremia and mitral valve endocarditis - Agree with management. Pt will need to continue IV vancomycin, dosed to achieve levels of 15-20, for 6 weeks from date of blood culture clearance. If BCx from 10/22 show no further growth, the end date is anticipated to be 12/03/19. - Per recent notes, permcath placement is pending clearance of bacteremia, which is entirely appropriate. There is increased risk for relapse with placement of marine oil terminal superintendent central line prior to such. - Appearance of vertebral lesion is not typical for pyogenic spondylodiscitis. Pt is undergoing evaluation and management per Hem/Onc considering renal mass in conjunction with this finding. - The only additional consideration I can offer: If not already done, contacting CT Surgery may be prudent. Risk for embolic complications increases with anterior mitral valve leaflet vegetations that are 1 cm or larger, and the risk for embolization is a factor that may need to be taken into account for whether early surgery should be pursued. I suspect medical management will be pursued, but this is a decision that a cardiac surgeon would be best positioned to make. Jaison Galindo MD
[2019-10-22] MEDS: PATIROMER 8.4 GM SUSP PACKET PO SCH (18:15)
--- NOTE | 2019-10-22 20:17 | PDOC PROGRESS REPORT ---
Subjective Progress Note for:: 10/22/19 Subjective:: Patient seen by the bedside, , he has mitral valve endocarditis with vegetations demonstrated on the mitral valve. The treatment [place] valve endocarditis due to MRSA is vancomycin for 6 weeks.ID was consulted by Dr. Zhong, ID notes reviewed, patient had dialysis today, patient continues to do well clinically, he will need vancomycin for 6 weeks as indicated previously. The PermCath is on hold, the plan is to demonstrate negative blood culture before inserting a PermCath. Reason For Visit: RENAL MASS/ESRD/BACK PAIN Physical Exam Vital Signs: Temp Pulse Resp BP Pulse Ox 97.5 F 94 16 120/79 100 10/22/19 15:39 10/22/19 15:39 10/22/19 15:39 10/22/19 15:39 10/22/19 15:39 Intake & Output 10/21/19 10/22/19 10/23/19 06:59 06:59 06:59 Intake Total 593 598 3572 Output Total 2100 0 5000 Balance -1470 370 -3900 Weight 90 kg 86.8 kg 86.8 kg General appearance: PRESENT: no acute distress Eye exam: PRESENT: PERRLA Respiratory exam: PRESENT: clear to auscultation dave Cardiovascular exam: PRESENT: +S1, +S2 GI/Abdominal exam: PRESENT: soft Neurological exam: PRESENT: alert Results Laboratory Results: 10/22/19 05:02 10/22/19 05:02 10/22/19 10/22/19 05:02 05:02 WBC 12.9 H RBC 3.67 L Hgb 10.9 L Hct 32.1 L MCV 87 MCH 29.6 MCHC 33.9 RDW 15.8 H Plt Count 247 Seg Neutrophils % 85.1 H Sodium 134.2 L Potassium 6.2 H* D Chloride 94 L Carbon Dioxide 20 L Anion Gap 20 H BUN 120 H D Creatinine 12.30 H Est GFR ( Amer) 5 L Glucose 98 Calcium 8.7 10/09/19 10/09/19 23:16 23:16 Creatine Kinase 121 CK-MB (CK-2) 0.57 Troponin I 0.112 Impressions: Abdomen/Pelvis CT 10/10/19 00:00 IMPRESSION: Prominent axillary nodes. Not definitely pathologic. Indeterminate nodes in the mediastinum. Solid right renal mass measuring over 6 cm. Atrophic kidneys. Probable Schmorl's noted L1. Well-circumscribed along the superior endplate without extension into the pedicles. Chest CT 10/10/19 00:00 IMPRESSION: Prominent axillary nodes. Not definitely pathologic. Indeterminate nodes in the mediastinum. Solid right renal mass measuring over 6 cm. Atrophic kidneys. Probable Schmorl's noted L1. Well-circumscribed along the superior endplate without extension into the pedicles. Lumbar Spine CT 10/10/19 03:49 IMPRESSION: 1. Solid-appearing mass at the upper pole of the right kidney, which has increased in size compared to the prior study. This is most compatible with malignancy. Recommend correlation with clinical history. 2. New lytic lesion within the L1 vertebral body, suggesting metastatic disease. 3. No acute fracture. Lumbar Spine MRI 10/10/19 06:22 IMPRESSION: 1. HOMOGENEOUS ROUND LESION IN THE SUPERIOR BODY OF THE L1 VERTEBRAL BODY DESCRIBED. THIS IS CONCERNING FOR A METASTATIC LESION. AN ATYPICAL SCHMORL'S NODE COULD BE ANOTHER POSSIBILITY BUT LESS LIKELY. MAY CONSIDER BONE SCAN TO EVALUATE THE FINDING IN THE L1 VERTEBRAL BODY AND TO DETERMINE IF THERE ARE ANY OTHER SKELETAL LESIONS IN THE REMAINDER OF THE BODY. 2. MILD CHRONIC DEGENERATIVE CHANGES DESCRIBED. NO SIGNIFICANT STENOSIS OR IMPINGEMENT. 3. HETEROGENOUS MASS IN THE RIGHT KIDNEY, NOT COMPLETELY IMAGED. Thoracic Spine MRI 10/10/19 06:22 IMPRESSION: NORMAL MRI THORACIC SPINE. NO EVIDENCE OF THORACIC VERTEBRAL METASTASIS. Chest X-Ray 10/16/19 10:42 IMPRESSION: Mild atelectasis at left lung base. 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 Is this a current diagnosis for this admission?: Yes (3) End stage renal disease on dialysis Is this a current diagnosis for this admission?: Yes Plan: Patient on hemodialysis, nephrology is following (4) Lytic lesion of bone on x-ray Is this a current diagnosis for this admission?: Yes (5) Atrial flutter Qualifiers: Atrial flutter type: typical Qualified Code(s): I48.3 - Typical atrial flutter Is this a current diagnosis for this admission?: Yes (6) Metabolic encephalopathy Is this a current diagnosis for this admission?: Yes Plan: Patient sensorium is clear (7) Aortic valve regurgitation Qualifiers: Cardiac valve disease etiology: nonrheumatic Qualified Code(s): I35.1 - Nonrheumatic aortic (valve) insufficiency Is this a current diagnosis for this admission?: Yes (8) Endocarditis of mitral valve Is this a current diagnosis for this admission?: Yes Plan: He has MRSA [place] valve endocarditis, will continue vancomycin, he gets vancomycin on post dialysis days - Time Time Spent with patient: 35 or more minutes Level of Care: IMCU Medications reviewed and adjusted accordingly: Yes
[2019-10-22] MEDS: FAMOTIDINE 20 MG TABLET PO SCH (21:27)
[2019-10-23] MEDS: CLONIDINE HCL 0.1 MG TABLET PO SCH ×3 (05:39→22:51)
[2019-10-23] MEDS: ACETAMINOPHEN 325 MG TABLET PO PRN (08:24)
[2019-10-23 09:53] LABS: HEMOGLOBIN 10.8 g/dL (13.5-17.0); MEAN CORPUSCULAR HEMOGLOBIN 29.3 pg (27.0-33.4); MEAN CORPUSCULAR HGB CONC 33.9 g/dL (32.0-36.0); MEAN CORPUSCULAR VOLUME 86 fl (80-97); PLATELET COUNT 253 10^3/uL (150-450); RED CELL DISTRIBUTION WIDTH 15.3 % (11.5-14.0); WHITE BLOOD COUNT 11.9 10^3/uL (4.0-10.5)
[2019-10-23 10:10] LABS: ANION GAP 16 (5-19); BLOOD UREA NITROGEN 96 mg/dL (7-20); CALCIUM 8.7 mg/dL (8.4-10.2); CARBON DIOXIDE 25 mmol/L (22-30); CHLORIDE 93 mmol/L (98-107); GLUCOSE 116 mg/dL (75-110); POTASSIUM 5.5 mmol/L (3.6-5.0)
[2019-10-23] MEDS: DOCUSATE SODIUM 100 MG CAPSULE PO SCH (10:11)
[2019-10-23] MEDS: AMIODARONE HCL 200 MG TABLET PO SCH (10:11)
[2019-10-23] MEDS: OXYCODONE HCL IR 5 MG TABLET PO PRN (17:34)
[2019-10-23] MEDS: PATIROMER 8.4 GM SUSP PACKET PO SCH (17:35)
[2019-10-23] MEDS ORDERED: LACTULOSE SYRUP 20 GM/30 ML UDCUP PO ONE (18:23)
[2019-10-23] MEDS ORDERED: BISACODYL 10 MG SUPP.RECT PR ONE (18:24)
--- NOTE | 2019-10-23 18:34 | PDOC PROGRESS REPORT ---
Subjective Progress Note for:: 10/23/19 Subjective:: Patient and nursing staff reported no bowel movement for several days. No nausea, vomiting, or abdominal pain. PO intake remain fair. No fever or chills. Remainon IV antibiotic therapy fpr endocardiatis. Reason For Visit: RENAL MASS/ESRD/BACK PAIN Physical Exam Vital Signs: Temp Pulse Resp BP Pulse Ox 97.8 F 70 20 147/73 H 100 10/23/19 12:07 10/23/19 14:00 10/23/19 12:07 10/23/19 12:07 10/23/19 12:07 Intake & Output 10/22/19 10/23/19 10/24/19 06:59 06:59 06:59 Intake Total 370 2204 Output Total 0 5000 Balance 370 -2796 Weight 86.8 kg 88 kg General appearance: PRESENT: no acute distress, obese Head exam: PRESENT: atraumatic, normocephalic Eye exam: PRESENT: conjunctiva pink. ABSENT: scleral icterus Ear exam: PRESENT: normal external ear exam Mouth exam: PRESENT: moist Respiratory exam: PRESENT: clear to auscultation dave Cardiovascular exam: PRESENT: RRR. ABSENT: diastolic murmur, rubs, systolic murmur Vascular exam: ABSENT: pallor GI/Abdominal exam: PRESENT: normal bowel sounds, soft. ABSENT: distended, guarding, mass, organolmegaly, rebound, tenderness Extremities exam: PRESENT: pedal edema - right upper extremity Neurological exam: PRESENT: alert, awake, oriented to person, oriented to place, oriented to time, oriented to situation, CN II-XII grossly intact. ABSENT: motor sensory deficit Psychiatric exam: PRESENT: appropriate affect, normal mood. ABSENT: homicidal ideation, suicidal ideation Skin exam: PRESENT: dry, warm Results Laboratory Results: 10/23/19 09:44 10/23/19 09:44 10/23/19 10/23/19 09:44 09:44 WBC 11.9 H RBC 3.70 L Hgb 10.8 L Hct 32.0 L MCV 86 MCH 29.3 MCHC 33.9 RDW 15.3 H Plt Count 253 Sodium 134.2 L Potassium 5.5 H Chloride 93 L Carbon Dioxide 25 Anion Gap 16 BUN 96 H Creatinine 10.41 H Est GFR ( Amer) 6 L Glucose 116 H Calcium 8.7 10/09/19 10/09/19 23:16 23:16 Creatine Kinase 121 CK-MB (CK-2) 0.57 Troponin I 0.112 Impressions: Abdomen/Pelvis CT 10/10/19 00:00 IMPRESSION: Prominent axillary nodes. Not definitely pathologic. Indeterminate nodes in the mediastinum. Solid right renal mass measuring over 6 cm. Atrophic kidneys. Probable Schmorl's noted L1. Well-circumscribed along the superior endplate without extension into the pedicles. Chest CT 10/10/19 00:00 IMPRESSION: Prominent axillary nodes. Not definitely pathologic. Indeterminate nodes in the mediastinum. Solid right renal mass measuring over 6 cm. Atrophic kidneys. Probable Schmorl's noted L1. Well-circumscribed along the superior endplate without extension into the pedicles. Lumbar Spine CT 10/10/19 03:49 IMPRESSION: 1. Solid-appearing mass at the upper pole of the right kidney, which has increased in size compared to the prior study. This is most compatible with malignancy. Recommend correlation with clinical history. 2. New lytic lesion within the L1 vertebral body, suggesting metastatic disease. 3. No acute fracture. Lumbar Spine MRI 10/10/19 06:22 IMPRESSION: 1. HOMOGENEOUS ROUND LESION IN THE SUPERIOR BODY OF THE L1 VERTEBRAL BODY DESCRIBED. THIS IS CONCERNING FOR A METASTATIC LESION. AN ATYPICAL SCHMORL'S NODE COULD BE ANOTHER POSSIBILITY BUT LESS LIKELY. MAY CONSIDER BONE SCAN TO EVALUATE THE FINDING IN THE L1 VERTEBRAL BODY AND TO DETERMINE IF THERE ARE ANY OTHER SKELETAL LESIONS IN THE REMAINDER OF THE BODY. 2. MILD CHRONIC DEGENERATIVE CHANGES DESCRIBED. NO SIGNIFICANT STENOSIS OR IMPINGEMENT. 3. HETEROGENOUS MASS IN THE RIGHT KIDNEY, NOT COMPLETELY IMAGED. Thoracic Spine MRI 10/10/19 06:22 IMPRESSION: NORMAL MRI THORACIC SPINE. NO EVIDENCE OF THORACIC VERTEBRAL METASTASIS. Chest X-Ray 10/16/19 10:42 IMPRESSION: Mild atelectasis at left lung base. Assessment & Plan - Diagnosis (1) MRSA (methicillin resistant Staphylococcus aureus) septicemia Is this a current diagnosis for this admission?: Yes Plan: Continue IV Vancomycin coverage. (2) Endocarditis of mitral valve Is this a current diagnosis for this admission?: Yes Plan: Continue IV Vancomycin coverage. (3) End stage renal disease on dialysis Is this a current diagnosis for this admission?: Yes Plan: Continue IV Vancomycin coverage. Schedule for dialysis as per flue dust laborer recommendation. (4) Hypertension Is this a current diagnosis for this admission?: Yes Plan: Continue current medication management. (5) Renal mass, right Is this a current diagnosis for this admission?: Yes Plan: Continue current supportive care. - Time Time Spent with patient: 25-34 minutes Level of Care: IMCU Medications reviewed and adjusted accordingly: Yes Anticipated discharge: Home with Homehealth Within: Other - Inpatient Certification Based on my medical assessment, after consideration of the patient's comorbidities, presenting symptoms, or acuity I expect that the services needed warrant INPATIENT care.: Yes I certify that my determination is in accordance with my understanding of Medicare's requirements for reasonable and necessary INPATIENT services [42 CFR 412.3e].: Yes Medical Necessity: Significant Comorbidiites Make Outpatient Treatment Too Risky, Need Close Monitoring Due to Risk of Patient Decompensation, Need For Continuous Telemetry Monitoring, Need for IV Antibiotics, Risk of Complication if Not Cared For in Hospital, Risk of Diagnosis Which Will Require Inpatient Eval/Care/Monitoring Post Hospital Care: D/C Support Worker Documentation - Plan Summary Plan Summary: Continue current medication management.
--- NOTE | 2019-10-23 22:32 | Progress Note ---
Provider Note Provider Note: CARDIOLOGY PROGRESS NOTE by Dr. Amanda Raines on 10/23/2019 Subjective: The patient denies any shortness of breath. He is not confused today. He has no PND orthopnea. He has no fever. There is no leg edema. The patient has no chest pain or discomfort. There is no recurrence of atrial flutter. There is no ventricular arrhythmia seen on the monitor. PHYSICAL EXAMINATION: The patient mildly obese. In no acute distress. Selected Entries 10/23/19 08:05 Temperature 97.5 F Temperature Oral Source Pulse Rate 69 Respiratory 18 Rate Blood Pressure 134/71 H Blood Pressure 92 Mean BP Location Left Arm BP Position Supine Oxygen Delivery Room Air Method HEAD: Is atraumatic and normocephalic. EYES: Pupils are equal round regular reactive to light accommodation. External ocular movements are normal. There is no conjunctival pallor. There is no scleral icterus. EARS: Tympanic membranes are intact. External auditory canals are clear. NOSE: There is no deviated nasal septum. There is no inflammation of the nasal mucous membrane. MOUTH: Mucous membranes of mouth are moist. Tongue is moist. There is no ulcers in the mouth. There is no bleeding from the gums. THROAT: There is no redness of the oropharynx. There is no exudates. SKIN: There is no skin rashes. There is no petechia or ecchymosis. There is no skin lesions. NECK: Is supple. There is no JVD. Carotids equal there is no bruit. There is no lymphadenopathy. Trachea central. LUNGS: Lungs are clear to auscultation percussion, without any rhonchi rales or wheezing. THERE IS NO CHEST WALL TENDERNESS. Heart: S1, S2 heard normally. There is no S3 gallop. There is no S4 gallop. There is systolic murmur left sternal border and apex. Murmur of mitral regurgitation heard. . There is no rub. ABDOMEN: Soft. Nontender. There is no hepatosplenomegaly. All sounds are well heard. There is no tender areas of masses. EXTREMITIES: Femorals are diminished. There is no femoral bruits. Leg pulses are diminished. There is no pedal edema. There is diffuse swelling of the right upper extremity. There is no DVT or cellulitis. There is no cyanosis or clubbing. There is no calf tenderness. [employer]ANCE: The patient is conscious awake drowsy, but with with no focal deficits. PSYCHIATRIC: The patient is not agitated or anxious. Labs- All tests 24 hr 10/23/19 10/23/19 09:44 09:44 WBC 11.9 H RBC 3.70 L Hgb 10.8 L Hct 32.0 L MCV 86 MCH 29.3 MCHC 33.9 RDW 15.3 H Plt Count 253 Sodium 134.2 L Potassium 5.5 H Chloride 93 L Carbon Dioxide 25 Anion Gap 16 BUN 96 H Creatinine 10.41 H Est GFR ( Amer) 6 L Est GFR (MDRD) Non-Af 5 L Glucose 116 H Calcium 8.7 Abdomen/Pelvis CT 10/10/19 00:00 IMPRESSION: Prominent axillary nodes. Not definitely pathologic. Indeterminate nodes in the mediastinum. Solid right renal mass measuring over 6 cm. Atrophic kidneys. Probable Schmorl's noted L1. Well-circumscribed along the superior endplate without extension into the pedicles. Chest CT 10/10/19 00:00 IMPRESSION: Prominent axillary nodes. Not definitely pathologic. Indeterminate nodes in the mediastinum. Solid right renal mass measuring over 6 cm. Atrophic kidneys. Probable Schmorl's noted L1. Well-circumscribed along the superior endplate without extension into the pedicles. Lumbar Spine CT 10/10/19 03:49 IMPRESSION: 1. Solid-appearing mass at the upper pole of the right kidney, which has increased in size compared to the prior study. This is most compatible with malignancy. Recommend correlation with clinical history. 2. New lytic lesion within the L1 vertebral body, suggesting metastatic disease. 3. No acute fracture. Lumbar Spine MRI 10/10/19 06:22 IMPRESSION: 1. HOMOGENEOUS ROUND LESION IN THE SUPERIOR BODY OF THE L1 VERTEBRAL BODY DESCRIBED. THIS IS CONCERNING FOR A METASTATIC LESION. AN ATYPICAL SCHMORL'S NODE COULD BE ANOTHER POSSIBILITY BUT LESS LIKELY. MAY CONSIDER BONE SCAN TO EVALUATE THE FINDING IN THE L1 VERTEBRAL BODY AND TO DETERMINE IF THERE ARE ANY OTHER SKELETAL LESIONS IN THE REMAINDER OF THE BODY. 2. MILD CHRONIC DEGENERATIVE CHANGES DESCRIBED. NO SIGNIFICANT STENOSIS OR IMPINGEMENT. 3. HETEROGENOUS MASS IN THE RIGHT KIDNEY, NOT COMPLETELY IMAGED. Thoracic Spine MRI 10/10/19 06:22 IMPRESSION: NORMAL MRI THORACIC SPINE. NO EVIDENCE OF THORACIC VERTEBRAL METASTASIS. Chest X-Ray 10/16/19 10:42 IMPRESSION: Mild atelectasis at left lung base. IMPRESSION/RECOMMENDATION: 1. 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 Patient for dialysis of the right leg lesion. Hence the patient's Eliquis has been discontinued. 2. Recent recurrent atrial flutter with rapid ventricular response. Patient back to sinus rhythm post IV amiodarone drip which is been discontinued. Will increase the patient's amiodarone to 200 mg p.o. twice daily. Patient has history of proximal small atrial flutter. We will cut back the patient's amiodarone to 200 mg once a day. 3. Hyperkalemia in a patient with end-stage renal disease. The patient is getting dialyzed. The patient's potassium today is 5.2. 4. . History of congestive heart failure secondary to volume overload during prior admission. At present compensated. 5. Hypertension: At present uncontrolled continue current medications. Increase the patient's clonidine to 0.1 mg p.o. every 8 hours. 6. END STAGE RENAL DISEASE: On hemodialysis. 7. History of hyperlipidemia. Continue statins 8. Murmur of mitral regurgitation: Mild mitral regurgitation by echocardiography. 9. Hyperkalemia: Nephrology on the case. 10. Moderate pulmonary hypertension. 11. 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 Clinically and by NEWTON no significant mitral regurgitation. Continue antibiotics. Consider [place] ID consult. Echo findings discussed with the patient. Medications reviewed. Medical regimen and management plan discussed with attending physician. Medical decision making is of high complexity, in view of the need to adjust the patient's medications to control his blood pressure.. 40 minutes spent on the patient more than 50% of time spent in direct patient care. Will follow.
[2019-10-23] MEDS: FAMOTIDINE 20 MG TABLET PO SCH (22:51)
[2019-10-24] MEDS: OXYCODONE HCL IR 5 MG TABLET PO PRN ×2 (02:31→08:27)
[2019-10-24] MEDS: CLONIDINE HCL 0.1 MG TABLET PO SCH ×3 (06:11→21:04)
[2019-10-24 06:27] LABS: VANCOMYCIN,TROUGH 26.6 ug/mL (5.0-20.0)
[2019-10-24] MEDS: AMIODARONE HCL 200 MG TABLET PO SCH (09:50)
[2019-10-24] MEDS: DOCUSATE SODIUM 100 MG CAPSULE PO SCH (09:50)
--- NOTE | 2019-10-24 14:25 | Progress Note ---
Provider Note Provider Note: CARDIOLOGY PROGRESS NOTE by Dr. Amanda Dumont on 10/24/2019. PHYSICAL EXAMINATION: The patient is sitting up in the chair with no acute distress. He states his appetite is very much decreased. He has no nausea vomiting. Denies any chest pain discomfort. There is no shortness of breath. There is no recurrence of atrial flutter. There is no ventricle arrhythmia seen on the monitor. There is no signs of peripheral embolization. There is no TIA CVA symptoms. PHYSICAL EXAMINATION: The patient now is a normal build having lost weight distribution. In no acute distress. Selected Entries 10/24/19 08:38 Temperature 97.9 F Temperature Oral Source Pulse Rate 64 Respiratory 18 Rate Blood Pressure 149/63 H Blood Pressure 91 Mean BP Location Left Arm BP Position Supine O2 Sat by Pulse 92 Oximetry Oxygen Delivery Room Air Method HEAD: Is atraumatic and normocephalic. EYES: Pupils are equal round regular reactive to light accommodation. External ocular movements are normal. There is no conjunctival pallor. There is no scleral icterus. EARS: Tympanic membranes are intact. External auditory canals are clear. NOSE: There is no deviated nasal septum. There is no inflammation of the nasal mucous membrane. MOUTH: Mucous membranes of mouth are moist. Tongue is moist. There is no ulcers in the mouth. There is no bleeding from the gums. THROAT: There is no redness of the oropharynx. There is no exudates. SKIN: There is no skin rashes. There is no petechia or ecchymosis. There is no skin lesions. NECK: Is supple. There is no JVD. Carotids equal there is no bruit. There is no lymphadenopathy. Trachea central. LUNGS: Lungs are clear to auscultation percussion, without any rhonchi rales or wheezing. THERE IS NO CHEST WALL TENDERNESS. Heart: S1, S2 heard normally. There is no S3 gallop. There is no S4 gallop. There is systolic murmur left sternal border and apex. Murmur of mitral regurgitation heard. . There is no rub. ABDOMEN: Soft. Nontender. There is no hepatosplenomegaly. All sounds are well heard. There is no tender areas of masses. EXTREMITIES: Femorals are diminished. There is no femoral bruits. Leg pulses are diminished. There is no pedal edema. There is diffuse swelling of the right upper extremity. There is no DVT or cellulitis. There is no cyanosis or clubbing. There is no calf tenderness. CUE SELECTOR: The patient is conscious awake drowsy, but with with no focal deficits. PSYCHIATRIC: The patient is not agitated or anxious. Labs- All tests 24 hr 10/24/19 05:02 Time Trough Drawn 0502 Vancomycin Trough 26.6 H Abdomen/Pelvis CT 10/10/19 00:00 IMPRESSION: Prominent axillary nodes. Not definitely pathologic. Indeterminate nodes in the mediastinum. Solid right renal mass measuring over 6 cm. Atrophic kidneys. Probable Schmorl's noted L1. Well-circumscribed along the superior endplate without extension into the pedicles. Chest CT 10/10/19 00:00 IMPRESSION: Prominent axillary nodes. Not definitely pathologic. Indeterminate nodes in the mediastinum. Solid right renal mass measuring over 6 cm. Atrophic kidneys. Probable Schmorl's noted L1. Well-circumscribed along the superior endplate without extension into the pedicles. Lumbar Spine CT 10/10/19 03:49 IMPRESSION: 1. Solid-appearing mass at the upper pole of the right kidney, which has increased in size compared to the prior study. This is most compatible with malignancy. Recommend correlation with clinical history. 2. New lytic lesion within the L1 vertebral body, suggesting metastatic disease. 3. No acute fracture. Lumbar Spine MRI 10/10/19 06:22 IMPRESSION: 1. HOMOGENEOUS ROUND LESION IN THE SUPERIOR BODY OF THE L1 VERTEBRAL BODY DESCRIBED. THIS IS CONCERNING FOR A METASTATIC LESION. AN ATYPICAL SCHMORL'S NODE COULD BE ANOTHER POSSIBILITY BUT LESS LIKELY. MAY CONSIDER BONE SCAN TO EVALUATE THE FINDING IN THE L1 VERTEBRAL BODY AND TO DETERMINE IF THERE ARE ANY OTHER SKELETAL LESIONS IN THE REMAINDER OF THE BODY. 2. MILD CHRONIC DEGENERATIVE CHANGES DESCRIBED. NO SIGNIFICANT STENOSIS OR IMPINGEMENT. 3. HETEROGENOUS MASS IN THE RIGHT KIDNEY, NOT COMPLETELY IMAGED. Thoracic Spine MRI 10/10/19 06:22 IMPRESSION: NORMAL MRI THORACIC SPINE. NO EVIDENCE OF THORACIC VERTEBRAL METASTASIS. Chest X-Ray 10/16/19 10:42 IMPRESSION: Mild atelectasis at left lung base. IMPRESSION/RECOMMENDATION: 1. 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 Patient for dialysis of the right leg lesion. Hence the patient's Eliquis has been discontinued. 2. Recent recurrent atrial flutter with rapid ventricular response. Patient back to sinus rhythm post IV amiodarone drip which is been discontinued. Will increase the patient's amiodarone to 200 mg p.o. twice daily. Patient has history of proximal small atrial flutter. We will cut back the patient's amiodarone to 200 mg once a day. 3. Hyperkalemia in a patient with end-stage renal disease. The patient is getting dialyzed. 4. . History of congestive heart failure secondary to volume overload during prior admission. At present compensated. 5. Hypertension: At present uncontrolled continue current medications. Increase the patient's clonidine to 0.1 mg p.o. every 8 hours. 6. END STAGE RENAL DISEASE: On hemodialysis. 7. History of hyperlipidemia. Continue statins 8. Murmur of mitral regurgitation: Mild mitral regurgitation by echocardiography. 9. Hyperkalemia: Nephrology on the case. 10. Moderate pulmonary hypertension. 11. 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 Clinically and by NEWTON no significant mitral regurgitation. Continue antibiotics. Consider [place] ID consult. Echo findings discussed with the patient. Medications reviewed. Medical regimen and management plan discussed with attending physician. Medical decision making is of high complexity, in view of the need to adjust the patient's medications to control his blood pressure.. 40 minutes spent on the patient more than 50% of time spent in direct patient care. Will follow.
--- NOTE | 2019-10-24 16:23 | PDOC PROGRESS REPORT ---
Subjective Progress Note for:: 10/24/19 Subjective:: Patient reported left shoulder joint pain and limitation with movement. No nausea, vomiting, or abdominal pain. No fever or chills. Remain on IV antibiotic therapy for endocarditis. Reason For Visit: RENAL MASS/ESRD/BACK PAIN Physical Exam Vital Signs: Temp Pulse Resp BP Pulse Ox 97.4 F 71 18 143/72 H 100 10/24/19 11:41 10/24/19 14:00 10/24/19 11:41 10/24/19 11:41 10/24/19 11:41 Intake & Output 10/23/19 10/24/19 10/25/19 06:59 06:59 06:59 Intake Total 2204 557 Output Total 5000 0 Balance -2796 557 Weight 88 kg 78.6 kg Physical Exam: General appearance: PRESENT: no acute distress, obese Head exam: PRESENT: atraumatic, normocephalic Eye exam: PRESENT: conjunctiva pink. ABSENT: pallor, scleral icterus Ear exam: PRESENT: normal external ear exam Mouth exam: PRESENT: moist Respiratory exam: PRESENT: clear to auscultation dave Cardiovascular exam: PRESENT: RRR. ABSENT: diastolic murmur, rubs, systolic murmur GI/Abdominal exam: PRESENT: normal bowel sounds, soft. ABSENT: distended, guarding, mass, organomegaly, rebound, tenderness Extremities exam: PRESENT: pedal edema - right upper extremity, Left upper extremity ROM limitation to less than 30 degree due to elicited tenderness. Neurological exam: PRESENT: alert, awake, oriented to person, oriented to place, oriented to time, oriented to situation, CN II-XII grossly intact. ABSENT: motor sensory deficit Psychiatric exam: PRESENT: appropriate affect, normal mood. ABSENT: homicidal ideation, suicidal ideation Skin exam: PRESENT: dry, warm Results Laboratory Results: 10/23/19 09:44 10/23/19 09:44 10/09/19 10/09/19 23:16 23:16 Creatine Kinase 121 CK-MB (CK-2) 0.57 Troponin I 0.112 Impressions: Abdomen/Pelvis CT 10/10/19 00:00 IMPRESSION: Prominent axillary nodes. Not definitely pathologic. Indeterminate nodes in the mediastinum. Solid right renal mass measuring over 6 cm. Atrophic kidneys. Probable Schmorl's noted L1. Well-circumscribed along the superior endplate without extension into the pedicles. Chest CT 10/10/19 00:00 IMPRESSION: Prominent axillary nodes. Not definitely pathologic. Indeterminate nodes in the mediastinum. Solid right renal mass measuring over 6 cm. Atrophic kidneys. Probable Schmorl's noted L1. Well-circumscribed along the superior endplate without extension into the pedicles. Lumbar Spine CT 10/10/19 03:49 IMPRESSION: 1. Solid-appearing mass at the upper pole of the right kidney, which has increased in size compared to the prior study. This is most compatible with malignancy. Recommend correlation with clinical history. 2. New lytic lesion within the L1 vertebral body, suggesting metastatic disease. 3. No acute fracture. Lumbar Spine MRI 10/10/19 06:22 IMPRESSION: 1. HOMOGENEOUS ROUND LESION IN THE SUPERIOR BODY OF THE L1 VERTEBRAL BODY DESCRIBED. THIS IS CONCERNING FOR A METASTATIC LESION. AN ATYPICAL SCHMORL'S NODE COULD BE ANOTHER POSSIBILITY BUT LESS LIKELY. MAY CONSIDER BONE SCAN TO EVALUATE THE FINDING IN THE L1 VERTEBRAL BODY AND TO DETERMINE IF THERE ARE ANY OTHER SKELETAL LESIONS IN THE REMAINDER OF THE BODY. 2. MILD CHRONIC DEGENERATIVE CHANGES DESCRIBED. NO SIGNIFICANT STENOSIS OR IMPINGEMENT. 3. HETEROGENOUS MASS IN THE RIGHT KIDNEY, NOT COMPLETELY IMAGED. Thoracic Spine MRI 10/10/19 06:22 IMPRESSION: NORMAL MRI THORACIC SPINE. NO EVIDENCE OF THORACIC VERTEBRAL METASTASIS. Chest X-Ray 10/16/19 10:42 IMPRESSION: Mild atelectasis at left lung base. Assessment & Plan - Diagnosis (1) MRSA (methicillin resistant Staphylococcus aureus) septicemia Is this a current diagnosis for this admission?: Yes (2) Endocarditis of mitral valve Is this a current diagnosis for this admission?: Yes (3) End stage renal disease on dialysis Is this a current diagnosis for this admission?: Yes (4) Hypertension Is this a current diagnosis for this admission?: Yes (5) Renal mass, right Is this a current diagnosis for this admission?: Yes - Time Time Spent with patient: 25-34 minutes Level of Care: IMCU Medications reviewed and adjusted accordingly: Yes Anticipated discharge: Home with Homehealth Within: Other - Inpatient Certification Based on my medical assessment, after consideration of the patient's comorbidities, presenting symptoms, or acuity I expect that the services needed warrant INPATIENT care.: Yes I certify that my determination is in accordance with my understanding of Medicare's requirements for reasonable and necessary INPATIENT services [42 CFR 412.3e].: Yes Medical Necessity: Significant Comorbidiites Make Outpatient Treatment Too Ri heather, Need Close Monitoring Due to Risk of Patient Decompensation, Need For Continuous Telemetry Monitoring, Need for IV Antibiotics, Risk of Complication if Not Cared For in Hospital, Risk of Diagnosis Which Will Require Inpatient Eval/Care/Monitoring Post Hospital Care: D/C [place] Documentation - Plan Summary Plan Summary: Continue IV Vancomycin coverage. Maintain on current pain management medication. Consider septic joint in view of his new onset left shoulder joint in the presence of endocarditis.
--- NOTE | 2019-10-24 17:24 | RADIOLOGY REPORT (SQ) ---
EXAM DESCRIPTION: SHOULDER LEFT 2 OR MORE VIEWS COMPLETED DATE/TIME: 10/24/2019 5:14 pm REASON FOR STUDY: Left shoulder joint pain with ongoing endocarditis COMPARISON: None. NUMBER OF VIEWS: Three views left shoulder LIMITATIONS: None. FINDINGS: Osteopenic without fracture or bone lesion. No separation, subluxation or dislocation. C lear left lung. OTHER: No other significant finding. IMPRESSION: No acute or suspicious radiographic findings. TECHNICAL DOCUMENTATION: JOB ID: [id number] Reading location - IP/workstation name: [email or web address]
[2019-10-24] MEDS: PATIROMER 8.4 GM SUSP PACKET PO SCH (17:53)
[2019-10-24] MEDS: FAMOTIDINE 20 MG TABLET PO SCH (21:03)
[2019-10-24] MEDS: ACETAMINOPHEN 325 MG TABLET PO PRN (21:03)
[2019-10-25] MEDS ORDERED: NORMAL SALINE 1000 ML 1,000 ML IV PRN (05:00)
[2019-10-25] MEDS ORDERED: HEPARIN SOD (PORCINE) 1,000 UNIT/ML 10 ML VIAL IV PRN (05:00)
[2019-10-25] MEDS: CLONIDINE HCL 0.1 MG TABLET PO SCH ×3 (05:13→22:41)
[2019-10-25 06:28] LABS: ABSOLUTE EOSINOPHILS # (AUTO) 0.1 10^3/uL (0.0-0.6); ABSOLUTE LYMPHOCYTES (AUTO) 0.9 10^3/uL (0.5-4.7); ABSOLUTE MONOCYTES (AUTO) 0.9 10^3/uL (0.1-1.4); ABSOLUTE NEUT (AUTO) 9.9 10^3/uL (1.7-8.2); BASOPHILS % (AUTO) 0.3 % (0-2); EOSINOPHILS % (AUTO) 0.7 % (0-6); HEMATOCRIT 32.2 % (37.9-51.0); HEMOGLOBIN 10.9 g/dL (13.5-17.0); LYMPHOCYTES % (AUTO) 7.4 % (13-45); MEAN CORPUSCULAR HEMOGLOBIN 29.4 pg (27.0-33.4); MEAN CORPUSCULAR HGB CONC 33.8 g/dL (32.0-36.0); MEAN CORPUSCULAR VOLUME 87 fl (80-97); MONOCYTES % (AUTO) 7.3 % (3-13); PLATELET COUNT 318 10^3/uL (150-450); RED BLOOD COUNT 3.71 10^6/uL (4.35-5.55); RED CELL DISTRIBUTION WIDTH 15.4 % (11.5-14.0); SEGMENTED NEUTROPHILS % (AUTO) 84.3 % (42-78); TOTAL CELLS COUNTED % (AUTO) 100 %; WHITE BLOOD COUNT 11.7 10^3/uL (4.0-10.5)
[2019-10-25 06:47] LABS: ALBUMIN 3.3 g/dL (3.5-5.0); ALKALINE PHOSPHATASE 132 U/L (38-126); ASPARTATE AMINO TRANSFERASE 24 U/L (17-59); BILIRUBIN,DIRECT 0.5 mg/dL (0.0-0.4); BILIRUBIN,TOTAL 0.7 mg/dL (0.2-1.3); CALCIUM 8.7 mg/dL (8.4-10.2); GLUCOSE 113 mg/dL (75-110)
[2019-10-25 06:51] LABS: VANCOMYCIN,TROUGH 25.4 ug/mL (5.0-20.0)
[2019-10-25 06:56] LABS: CARBON DIOXIDE 19 mmol/L (22-30); CHLORIDE 89 mmol/L (98-107)
[2019-10-25 06:58] LABS: BLOOD UREA NITROGEN 130 mg/dL (7-20)
[2019-10-25 07:01] LABS: ANION GAP 22 (5-19); POTASSIUM 6.7 mmol/L (3.6-5.0)
[2019-10-25] MEDS: DOCUSATE SODIUM 100 MG CAPSULE PO SCH (09:49)
[2019-10-25] MEDS: AMIODARONE HCL 200 MG TABLET PO SCH (09:49)
--- NOTE | 2019-10-25 15:46 | PDOC PROGRESS REPORT ---
Subjective Progress Note for:: 10/25/19 Reason For Visit: Patient seen today on Dialysis. He still has some pain of his left shoulder. His NEWTON has shown that he is got vegetations indicative of bacterial endocarditis. Denies any complaints of chest pain, fever or chills. Labs and medications were reviewed. Note that his vancomycin has been on hold because of toxic levels on predialysis on Friday at 36 and it still remains high as of this morning predialysis. He was getting 1.5 g postdialysis. Physical Exam Vital Signs: Temp Pulse Resp BP Pulse Ox 97.4 F 94 16 158/76 H 98 10/25/19 08:18 10/25/19 14:00 10/25/19 08:18 10/25/19 08:18 10/25/19 08:18 Intake & Output 10/24/19 10/25/19 10/26/19 06:59 06:59 06:59 Intake Total 557 820 100 Output Total 0 5 Balance 557 815 100 Weight 78.6 kg 88.1 kg General appearance: PRESENT: no acute distress Respiratory exam: PRESENT: clear to auscultation dave, decreased breath sounds. ABSENT: crackles Cardiovascular exam: PRESENT: +S1, +S2 GI/Abdominal exam: PRESENT: normal bowel sounds, soft. ABSENT: organomegaly, tenderness Extremities exam: ABSENT: pedal edema Neurological exam: PRESENT: alert, awake, oriented to person, oriented to place Psychiatric exam: PRESENT: appropriate affect Results Laboratory Results: 10/25/19 06:10 10/25/19 06:10 10/25/19 10/25/19 06:10 06:10 WBC 11.7 H RBC 3.71 L Hgb 10.9 L Hct 32.2 L MCV 87 MCH 29.4 MCHC 33.8 RDW 15.4 H Plt Count 318 Seg Neutrophils % 84.3 H Sodium 129.9 L Potassium 6.7 H* Chloride 89 L Carbon Dioxide 19 L Anion Gap 22 H BUN 130 H Creatinine 13.83 H Est GFR ( Amer) 4 L Glucose 113 H Calcium 8.7 Total Bilirubin 0.7 AST 24 Alkaline Phosphatase 132 H Total Protein 8.0 Albumin 3.3 L 10/09/19 10/09/19 23:16 23:16 Creatine Kinase 121 CK-MB (CK-2) 0.57 Troponin I 0.112 Impressions: Abdomen/Pelvis CT 10/10/19 00:00 IMPRESSION: Prominent axillary nodes. Not definitely pathologic. Indeterminate nodes in the mediastinum. Solid right renal mass measuring over 6 cm. Atrophic kidneys. Probable Schmorl's noted L1. Well-circumscribed along the superior endplate without extension into the pedicles. Chest CT 10/10/19 00:00 IMPRESSION: Prominent axillary nodes. Not definitely pathologic. Indeterminate nodes in the mediastinum. Solid right renal mass measuring over 6 cm. Atrophic kidneys. Probable Schmorl's noted L1. Well-circumscribed along the superior endplate wi thout extension into the pedicles. Lumbar Spine CT 10/10/19 03:49 IMPRESSION: 1. Solid-appearing mass at the upper pole of the right kidney, which has increased in size compared to the prior study. This is most compatible with malignancy. Recommend correlation with clinical history. 2. New lytic lesion within the L1 vertebral body, suggesting metastatic disease. 3. No acute fracture. Lumbar Spine MRI 10/10/19 06:22 IMPRESSION: 1. HOMOGENEOUS ROUND LESION IN THE SUPERIOR BODY OF THE L1 VERTEBRAL BODY DESCRIBED. THIS IS CONCERNING FOR A METASTATIC LESION. AN ATYPICAL SCHMORL'S NODE COULD BE ANOTHER POSSIBILITY BUT LESS LIKELY. MAY CONSIDER BONE SCAN TO EVALUATE THE FINDING IN THE L1 VERTEBRAL BODY AND TO DETERMINE IF THERE ARE ANY OTHER SKELETAL LESIONS IN THE REMAINDER OF THE BODY. 2. MILD CHRONIC DEGENERATIVE CHANGES DESCRIBED. NO SIGNIFICANT STENOSIS OR IMPINGEMENT. 3. HETEROGENOUS MASS IN THE RIGHT KIDNEY, NOT COMPLETELY IMAGED. Thoracic Spine MRI 10/10/19 06:22 IMPRESSION: NORMAL MRI THORACIC SPINE. NO EVIDENCE OF THORACIC VERTEBRAL METASTASIS. Chest X-Ray 10/16/19 10:42 IMPRESSION: Mild atelectasis at left lung base. Shoulder X-Ray 10/24/19 00:00 IMPRESSION: No acute or suspicious radiographic findings. Assessment & Plan - Diagnosis (1) End-stage renal disease on hemodialysis Is this a current diagnosis for this admission?: Yes Plan: Patient currently undergoing dialysis. Vital signs are stable. Dialysis being supervised to ensure safe and smooth procedure. Plan to remove 1 to 1.5 L of fluid as tolerated. Dialysis orders were reviewed with the treating dialysis nurse. Catheter was examined. (2) Lower back pain Qualifiers: Chronicity: acute Back pain laterality: bilateral Sciatica presence: without sciatica Qualified Code(s): M54.5 - Low back pain Is this a current diagnosis for this admission?: Yes Plan: Patient is got renal mass along with a homogeneous bone lesion is L1. This is going to be explored and follow-up with kyphoplasty by Dr. Billings/pain management. The procedure has been postponed since he is now bacteremic.His low back pain is resolved. (3) Renal mass, right Is this a current diagnosis for this admission?: Yes Plan: Work-up as mentioned earlier being managed by heme oncologist and pain management physicians. (4) Hyperkalemia Is this a current diagnosis for this admission?: Yes Plan: Should respond to dialysis. Adjust dose of Veltassa daily. (5) Hypertension Is this a current diagnosis for this admission?: Yes Plan: Blood pressures better. Continue on current plans. (6) Paroxysmal atrial flutter Is this a current diagnosis for this admission?: Yes Plan: Presently rate controlled. Management as per cardiology. (7) Bone lesion Plan: L1 lesion that is being explored for possible benign versus metastatic lesion from right kidney mass. Plans as outlined earlier. (8) Staphylococcus aureus bacteremia Is this a current diagnosis for this admission?: Yes Plan: MRSA. No diagnosis on NEWTON to have bacterial endocarditis as well. Dosed with vancomycin. Plan to continue vancomycin postdialysis. However current Vanc levels are toxic and therefore vanc is on hold. Patient has had his IJ catheter removed presently on temporary dialysis catheter. . (9) Endocarditis due to methicillin susceptible Staphylococcus aureus (MSSA) Is this a current diagnosis for this admission?: Yes Plan: Needs to be on 6 to 8 weeks of IV vancomycin.
--- NOTE | 2019-10-25 16:16 | Progress Note ---
Provider Note Provider Note: CARDIOLOGY PROGRESS NOTE by Dr. Amanda Dumont on 10/25/2019. SUBJECTIVE: The patient denies any chest pain or discomfort. There is no shortness of breath. There is no PND orthopnea or leg edema. There is no arrhythmia seen on the monitor. There is no evidence of peripheral embolization. PHYSICAL EXAMINATION: The patient appears to be ill looking. But in no acute distress. Selected Entries 10/25/19 08:18 Temperature 97.4 F Temperature Oral Source Pulse Rate 67 Respiratory 16 Rate Blood Pressure 158/76 H Blood Pressure 103 Mean BP Location Left Arm BP Position Sitting O2 Sat by Pulse 98 Oximetry Oxygen Delivery Room Air Method HEAD: Is atraumatic and normocephalic. EYES: Pupils are equal round regular reactive to light accommodation. External ocular movements are normal. There is no conjunctival pallor. There is no scleral icterus. EARS: Tympanic membranes are intact. External auditory canals are clear. NOSE: There is no deviated nasal septum. There is no inflammation of the nasal mucous membrane. MOUTH: Mucous membranes of mouth are moist. Tongue is moist. There is no ulcers in the mouth. There is no bleeding from the gums. THROAT: There is no redness of the oropharynx. There is no exudates. SKIN: There is no skin rashes . There is no petechia or ecchymosis. There is no skin lesions. NECK: Is supple. There is no JVD. Carotids equal there is no bruit. There is no lymphadenopathy. Trachea central. LUNGS: Lungs are clear to auscultation percussion, without any rhonchi rales or wheezing. THERE IS NO CHEST WALL TENDERNESS. Heart: S1, S2 heard normally. There is no S3 gallop. There is no S4 gallop. There is systolic murmur left sternal border and apex. Murmur of mitral regurgitation heard. . There is no rub. ABDOMEN: Soft. Nontender. There is no hepatosplenomegaly. All sounds are well heard. There is no tender areas of masses. EXTREMITIES: Femorals are diminished. There is no femoral bruits. Leg pulses are diminished. There is no pedal edema. There is diffuse swelling of the right upper extremity. There is no DVT or cellulitis. There is no cyanosis or clubbing. There is no calf tenderness. CARTON LINER: The patient is conscious awake drowsy, but with with no focal deficits. PSYCHIATRIC: The patient is not agitated or anxious. Labs- All tests 24 hr 10/25/19 10/25/19 10/25/19 06:10 06:10 06:10 WBC 11.7 H RBC 3.71 L Hgb 10.9 L Hct 32.2 L MCV 87 MCH 29.4 MCHC 33.8 RDW 15.4 H Plt Count 318 Lymph % (Auto) 7.4 L [place] % (Auto) 7.3 Eos % (Auto) 0.7 Baso % (Auto) 0.3 Absolute Neuts (auto) 9.9 H Absolute Lymphs (auto) 0.9 Absolute Monos (auto) 0.9 Absolute Eos (auto) 0.1 Absolute Basos (auto) 0.0 Seg Neutrophils % 84.3 H Sodium 129.9 L Potassium 6.7 H* Chloride 89 L Carbon Dioxide 19 L Anion Gap 22 H BUN 130 H Creatinine 13.83 H Est GFR ( Amer) 4 L Est GFR (MDRD) Non-Af 4 L Glucose 113 H Calcium 8.7 Total Bilirubin 0.7 Direct Bilirubin 0.5 H Neonat Total Bilirubin Not Reportable Neonat Direct Bilirubin Not Reportable Neonat Indirect Bili Not Reportable AST 24 ALT 16 Alkaline Phosphatase 132 H Total Protein 8.0 Albumin 3.3 L Time Trough Drawn 0610 Vancomycin Trough 25.4 H Abdomen/Pelvis CT 10/10/19 00:00 IMPRESSION: Prominent axillary nodes. Not definitely pathologic. Indeterminate nodes in the mediastinum. Solid right renal mass measuring over 6 cm. Atrophic kidneys. Probable Schmorl's noted L1. Well-circumscribed along the superior endplate without extension into the pedicles. Chest CT 10/10/19 00:00 IMPRESSION: Prominent axillary nodes. Not definitely pathologic. Indeterminate nodes in the mediastinum. Solid right renal mass measuring over 6 cm. Atrophic kidneys. Probable Schmorl's noted L1. Well-circumscribed along the superior endplate without extension into the pedicles. Lumbar Spine CT 10/10/19 03:49 IMPRESSION: 1. Solid-appearing mass at the upper pole of the right kidney, which has increased in size compared to the prior study. This is most compatible with malignancy. Recommend correlation with clinical history. 2. New lytic lesion within the L1 vertebral body, suggesting metastatic disease. 3. No acute fracture. Lumbar Spine MRI 10/10/19 06:22 IMPRESSION: 1. HOMOGENEOUS ROUND LESION IN THE SUPERIOR BODY OF THE L1 VERTEBRAL BODY DESCRIBED. THIS IS CONCERNING FOR A METASTATIC LESION. AN ATYPICAL SCHMORL'S NODE COULD BE ANOTHER POSSIBILITY BUT LESS LIKELY. MAY CONSIDER BONE SCAN TO EVALUATE THE FINDING IN THE L1 VERTEBRAL BODY AND TO DETERMINE IF THERE ARE ANY OTHER SKELETAL LESIONS IN THE REMAINDER OF THE BODY. 2. MILD CHRONIC DEGENERATIVE CHANGES DESCRIBED. NO SIGNIFICANT STENOSIS OR IMPINGEMENT. 3. HETEROGENOUS MASS IN THE RIGHT KIDNEY, NOT COMPLETELY IMAGED. Thoracic Spine MRI 10/10/19 06:22 IMPRESSION: NORMAL MRI THORACIC SPINE. NO EVIDENCE OF THORACIC VERTEBRAL METASTASIS. Chest X-Ray 10/16/19 10:42 IMPRESSION: Mild atelectasis at left lung base. Shoulder X-Ray 10/24/19 00:00 IMPRESSION: No acute or suspicious radiographic findings. IMPRESSION/RECOMMENDATION: 1. 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 Patient for dialysis of the right leg lesion. Hence the patient's Eliquis has been discontinued. 2. Recent recurrent atrial flutter with rapid ventricular response. Patient back to sinus rhythm post IV amiodarone drip which is been discontinued. Will increase the patient's amiodarone to 200 mg p.o. twice daily. Patient has history of proximal small atrial flutter. We will cut back the patient's amiodarone to 200 mg once a day. 3. Hyperkalemia in a patient with end-stage renal disease. The patient is getting dialyzed. 4. . History of congestive heart failure secondary to volume overload during prior admission. At present compensated. 5. Hypertension: At present uncontrolled continue current medications. Increase the patient's clonidine to 0.1 mg p.o. every 8 hours. 6. END STAGE RENAL DISEASE: On hemodialysis. 7. History of hyperlipidemia. Continue statins 8. Murmur of mitral regurgitation: Mild mitral regurgitation by echocardiography. 9. Hyperkalemia: Nephrology on the case. 10. Moderate pulmonary hypertension. 11. 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 Clinically and by NEWTON no significant mitral regurgitation. Continue antibiotics. Medications reviewed. Medical regimen and management plan discussed with atten ding physician. Medical decision making is of moderate complexity... 40 minutes spent on the patient more than 50% of time spent in direct patient care. At present cardiac status is stable. Will follow.
[2019-10-25] MEDS ORDERED: VANCOMYCIN HCL 500 MG in DEXTROSE 5%-WATER 100 ML IV SCH (18:00)
--- NOTE | 2019-10-25 18:29 | EKG REPORT ---
SEVERITY:- ABNORMAL ECG - SINUS RHYTHM MARYANNE, CONSIDER BIATRIAL ABNORMALITIES BORDERLINE T ABNORMALITIES, DIFFUSE LEADS BORDERLINE PROLONGED QT INTERVAL VPC LV[facility] : Confirmed by: Ana Hagan 25-Oct-2019 18:28:44
--- NOTE | 2019-10-25 20:25 | PDOC PROGRESS REPORT ---
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 Reason For Visit: RENAL MASS/ESRD/BACK PAIN Physical Exam Vital Signs: Temp Pulse Resp BP Pulse Ox 97.8 F 87 16 149/82 H 97 10/25/19 15:43 10/25/19 15:43 10/25/19 15:43 10/25/19 15:43 10/25/19 15:43 Intake & Output 10/24/19 10/25/19 10/26/19 06:59 06:59 06:59 Intake Total 557 820 460 Output Total 0 5 Balance 557 815 460 Weight 78.6 kg 88.1 kg General appearance: PRESENT: no acute distress Eye exam: PRESENT: PERRLA Respiratory exam: PRESENT: clear to auscultation dave Cardiovascular exam: PRESENT: +S1, +S2 GI/Abdominal exam: PRESENT: soft Neurological exam: PRESENT: alert Results Laboratory Results: 10/25/19 06:10 10/25/19 06:10 10/25/19 10/25/19 06:10 06:10 WBC 11.7 H RBC 3.71 L Hgb 10.9 L Hct 32.2 L MCV 87 MCH 29.4 MCHC 33.8 RDW 15.4 H Plt Count 318 Seg Neutrophils % 84.3 H Sodium 129.9 L Potassium 6.7 H* Chloride 89 L Carbon Dioxide 19 L Anion Gap 22 H BUN 130 H Creatinine 13.83 H Est GFR ( Amer) 4 L Glucose 113 H Calcium 8.7 Total Bilirubin 0.7 AST 24 Alkaline Phosphatase 132 H Total Protein 8.0 Albumin 3.3 L 10/09/19 10/09/19 23:16 23:16 Creatine Kinase 121 CK-MB (CK-2) 0.57 Troponin I 0.112 Impressions: Abdomen/Pelvis CT 10/10/19 00:00 IMPRESSION: Prominent axillary nodes. Not definitely pathologic. Indeterminate nodes in the mediastinum. Solid right renal mass measuring over 6 cm. Atrophic kidneys. Probable Schmorl's noted L1. Well-circumscribed along the superior endplate without extension into the pedicles. Chest CT 10/10/19 00:00 IMPRESSION: Prominent axillary nodes. Not definitely pathologic. Indeterminate nodes in the mediastinum. Solid right renal mass measuring over 6 cm. Atrophic kidneys. Probable Schmorl's noted L1. Well-circumscribed along the superior endplate without extension into the pedicles. Lumbar Spine CT 10/10/19 03:49 IMPRESSION: 1. Solid-appearing mass at the upper pole of the right kidney, which has increased in size compared to the prior study. This is most compatible with malignancy. Recommend correlation with clinical history. 2. New lytic lesion within the L1 vertebral body, suggesting metastatic disease. 3. No acute fracture. Lumbar Spine MRI 10/10/19 06:22 IMPRESSION: 1. HOMOGENEOUS ROUND LESION IN THE SUPERIOR BODY OF THE L1 VERTEBRAL BODY DESCRIBED. THIS IS CONCERNING FOR A METASTATIC LESION. AN ATYPICAL SCHMORL'S NODE COULD BE ANOTHER POSSIBILITY BUT LESS LIKELY. MAY CONSIDER BONE SCAN TO EVALUATE THE FINDING IN THE L1 VERTEBRAL BODY AND TO DETERMINE IF THERE ARE ANY OTHER SKELETAL LESIONS IN THE REMAINDER OF THE BODY. 2. MILD CHRONIC DEGENERATIVE CHANGES DESCRIBED. NO SIGNIFICANT STENOSIS OR IMPINGEMENT. 3. HETEROGENOUS MASS IN THE RIGHT KIDNEY, NOT COMPLETELY IMAGED. Thoracic Spine MRI 10/10/19 06:22 IMPRESSION: NORMAL MRI THORACIC SPINE. NO EVIDENCE OF THORACIC VERTEBRAL METASTASIS. Chest X-Ray 10/16/19 10:42 IMPRESSION: Mild atelectasis at left lung base. Shoulder X-Ray 10/24/19 00:00 IMPRESSION: No acute or suspicious radiographic findings. 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 Is this a current diagnosis for this admission?: Yes (3) End stage renal disease on dialysis Is this a current diagnosis for this admission?: Yes (4) Lytic lesion of bone on x-ray Is this a current diagnosis for this admission?: Yes (5) Atrial flutter Qualifiers: Atrial flutter type: typical Qualified Code(s): I48.3 - Typical atrial flutter Is this a current diagnosis for this admission?: Yes (6) Metabolic encephalopathy Is this a current diagnosis for this admission?: Yes (7) Aortic valve regurgitation Qualifiers: Cardiac valve disease etiology: nonrheumatic Qualified Code(s): I35.1 - Nonrheumatic aortic (valve) insufficiency Is this a current diagnosis for this admission?: Yes (8) Endocarditis of mitral valve Is this a current diagnosis for this admission?: Yes Plan: Continue IV antibiotic - Time Time Spent with patient: 25-34 minutes Level of Care: IMCU Medications reviewed and adjusted accordingly: Yes
[2019-10-25] MEDS: FAMOTIDINE 20 MG TABLET PO SCH (22:41)
[2019-10-25] MEDS: DIPHENHYDRAMINE HCL 25 MG CAPSULE PO PRN (22:41)
[2019-10-26 05:52] LABS: VANCOMYCIN,TROUGH 22.2 ug/mL (5.0-20.0)
[2019-10-26] MEDS: CLONIDINE HCL 0.1 MG TABLET PO SCH ×3 (06:02→21:15)
[2019-10-26 11:14] LABS: CALCIUM 8.6 mg/dL (8.4-10.2); GLUCOSE 119 mg/dL (75-110)
[2019-10-26 11:19] LABS: ALKALINE PHOSPHATASE 125 U/L (38-126); ANION GAP 18 (5-19); ASPARTATE AMINO TRANSFERASE 27 U/L (17-59); BILIRUBIN,DIRECT 0.4 mg/dL (0.0-0.4); BILIRUBIN,TOTAL 0.6 mg/dL (0.2-1.3); CARBON DIOXIDE 23 mmol/L (22-30); CHLORIDE 92 mmol/L (98-107); TOTAL PROTEIN 7.6 g/dL (6.3-8.2)
[2019-10-26 11:26] LABS: BLOOD UREA NITROGEN 86 mg/dL (7-20); POTASSIUM 5.5 mmol/L (3.6-5.0)
[2019-10-26] MEDS: DOCUSATE SODIUM 100 MG CAPSULE PO SCH (12:16)
[2019-10-26] MEDS: AMIODARONE HCL 200 MG TABLET PO SCH (12:17)
[2019-10-26] MEDS ORDERED: LIDOCAINE 0.5% INJ-PF (5 MG/ML) 50 ML SDV ONE (12:50)
[2019-10-26] MEDS ORDERED: BACITRACIN INJ 50,000 UNIT VIAL ONE (12:50)
[2019-10-26] MEDS ORDERED: CEFAZOLIN INJ 1 GM VIAL ONE (13:11)
[2019-10-26] MEDS ORDERED: MIDAZOLAM 2 MG/2 ML INJ ONE (13:11)
[2019-10-26] MEDS ORDERED: FENTANYL CITRATE INJ/PF 100 MCG/2 ML AMPUL ONE (13:12)
--- NOTE | 2019-10-26 14:38 | RADIOLOGY REPORT (SQ) ---
EXAM DESCRIPTION: TUNNELED CENTRAL LINE COMPLETED DATE/TIME: 10/26/2019 1:46 pm REASON FOR STUDY: NEED FOR VASCULAR ACCESS COMPARISON: AP chest 10/16/2019 FLUOROSCOPY TIME: 0.5 minutes 1 series of digital fluoroscopic images saved to PACS. TECHNIQUE: Intra-operative images acquired during surgical procedure to evaluate progress. NUMBER OF IMAGES: Cine fluoroscopic images. LIMITATIONS: None. FINDINGS: Contrast injected into an inferior vena cava central line. Filter tip is at about the T12 level. Please see the operative report for further details. IMPRESSION: IMAGE(S) OBTAINED DURING PROCEDURE. COMMENT: Quality ID [id number]: Final reports for procedures using fluoroscopy that document radiation exp osure indices, or exposure time and number of fluorographic images (if radiation exposure indices are not available) Please consult full operative report of the attending physician for description of the procedure. TECHNICAL DOCUMENTATION: JOB ID: [id number] 2011 [employer]- All Rights Reserved Reading location - IP/workstation name: [email or web address]
--- NOTE | 2019-10-26 14:42 | Operative Report ---
Operative Report DATE OF SURGERY: 10/26/19 PREOPERATIVE DIAGNOSIS: 1. Endocarditis. 2. End-stage renal disease on hemod ialysis. 3. Multiple comorbidities. POSTOPERATIVE DIAGNOSIS: 1. Endocarditis. 2. End-stage renal disease on hemodialysis. 3. Multiple comorbidities. OPERATION: 1. Ultrasound evaluation of the left femoral vein. 2. Insertion of perm catheter via real-time access in the left femoral vein. 3. Angiogram and interpretation. SURGEON: CORNELIO YEH CONCRETE JOURNEYMAN: None. ANESTHESIA: Moderate Sedation TISSUE REMOVED OR ALTERED: Not applicable. COMPLICATIONS: None. ESTIMATED BLOOD LOSS: 5 mL. INTRAOPERATIVE FINDINGS: Of safe and satisfactory access into the left femoral vein under ultrasound guidance. Satisfactory position with the tip at about L2. Satisfactory angiogram demonstrating smooth flow of contrast through the inferior vena cava. The inferior vena cava seems on the small side or perhaps only the flush of the contrast was demonstrated. Easy spontaneous effluent of blood through both ports and in good flow of heparinized solution. PROCEDURE: After obtaining informed consent, the patient was taken to the [Personal Protection Specialist] and positioned supine. The left groin and adjacent areas were prepared with chlorhexidine and draped out with sterile linen. After the " universal timeout", in which it was verified that the patient continued to receive antibiotic, the procedure commenced. A steriley sheathed ultrasound probe was used to evaluate the [left femoral vein. Local anesthesia was infiltrated adjacent to the probe. Access into the left femoral vein was obtained using a micropuncture needle, followed by micropuncture wire and then a micropuncture catheter. This was followed by introduction of a 0.035 guidewire the tip of which was placed down into the inferior vena cava . A 48 cm long PermCath was now positioned over the abdomen and an exit site marked and locally anesthetized ,the catheter was placed between the 2 incisions. Proximally, the catheter was now positioned using a peel-away sheath, after dilation. Easy ingress of heparinized solution and egress of blood obtained through both ports. A completion angiogram was done by injecting contrast. The findings were as dictated. The groin incision was now closed using interrupted 3-0 PDS to the subcutaneous tissues, the catheter was anchored at the exit site using 3-0 PDS. A Biopatch device was now placed adjacent to the catheter. Dressings were applied and the procedure concluded. Exposure time: 0.5 minutes]. Exposure: 18.93 Mellisa bower. Contrast amount: [5 mL] of [id number] low osmolality. Copies of the dictated operative report for Dr. Cornelio Topete MD.concluded. Copies of the dictated operative report for Dr. Cornelio Topete MD.
[2019-10-26] MEDS: PATIROMER 8.4 GM SUSP PACKET PO SCH (16:52)
--- NOTE | 2019-10-26 19:12 | Progress Note ---
Provider Note Provider Note: CARDIOLOGY PROGRESS NOTE by Dr. Amanda Dumont on 10/26/2019. SUBJECTIVE: The patient had a permacath placed today. Hence his dialysis will be tomorrow. He denies any chest pain discomfort. There is no PND orthopnea there is no leg edema. The patient denies any shortness of breath. There is no recurrence of atrial flutter. There is no ventricular arrhythmia seen on the monitor. PHYSICAL EXAMINATION: The patient is ill-appearing, but in no acute distress. Selected Entries 10/26/19 15:12 Temperature 98.0 F Temperature Oral Source Pulse Rate 82 Respiratory 16 Rate Blood Pressure 143/67 H Blood Pressure 92 Mean BP Location Left Arm BP Position Supine O2 Sat by Pulse 96 Oximetry Oxygen Delivery Room Air Method HEAD: Is atraumatic and normocephalic. EYES: Pupils are equal round regular reactive to light accommodation. External ocular movements are normal. There is no conjunctival pallor. There is no scleral icterus. EARS: Tympanic membranes are intact. External auditory canals are clear. NOSE: There is no deviated nasal septum. There is no inflammation of the nasal mucous membrane. MOUTH: Mucous membranes of mouth are moist. Tongue is moist. There is no ulcers in the mouth. There is no bleeding from the gums. THROAT: There is no redness of the oropharynx. There is no exudates. SKIN: There is no skin rashes. There is no petechia or ecchymosis. There is no skin lesions. NECK: Is supple. There is no JVD. Carotids equal there is no bruit. There is no lymphadenopathy. Trachea central. LUNGS: Lungs are clear to auscultation percussion, without any rhonchi rales or wheezing. THERE IS NO CHEST WALL TENDERNESS. Heart: S1, S2 heard normally. There is no S3 gallop. There is no S4 gallop. There is systolic murmur left sternal border and apex. Murmur of mitral regurgitation heard. . There is no rub. ABDOMEN: Soft. Nontender. There is no hepatosplenomegaly. All sounds are well heard. There is no tender areas of masses. EXTREMITIES: Femorals are diminished. There is no femoral bruits. Leg pulses are diminished. There is no pedal edema. There is diffuse swelling of the right upper extremity. There is no DVT or cellulitis. There is no cyanosis or clubbing. There is no calf tenderness. HUMAN RELATIONS TEACHER: The patient is conscious awake drowsy, but with with no focal deficits. PSYCHIATRIC: The patient is not agitated or anxious. Labs- All tests 24 hr 10/26/19 10/26/19 04:58 04:58 Sodium 132.6 L Potassium 5.5 H D Chloride 92 L Carbon Dioxide 23 Anion Gap 18 BUN 86 H D Creatinine 10.42 H Est GFR ( Amer) 6 L Est GFR (MDRD) Non-Af 5 L Glucose 119 H Calcium 8.6 Total Bilirubin 0.6 Direct Bilirubin 0.4 Neonat Total Bilirubin Not Reportable Neonat Direct Bilirubin Not Reportable Neonat Indirect Bili Not Reportable AST 27 ALT 16 Alkaline Phosphatase 125 Total Protein 7.6 Albumin 3.0 L Time Trough Drawn 0458 Vancomycin Trough 22.2 H Abdomen/Pelvis CT 10/10/19 00:00 IMPRESSION: Prominent axillary nodes. Not definitely pathologic. Indeterminate nodes in the mediastinum. Solid right renal mass measuring over 6 cm. Atrophic kidneys. Probable Schmorl's noted L1. Well-circumscribed along the superior endplate without extension into the pedicles. Chest CT 10/10/19 00:00 IMPRESSION: Prominent axillary nodes. Not definitely pathologic. Indeterminate nodes in the mediastinum. Solid right renal mass measuring over 6 cm. Atrophic kidneys. Probable Schmorl's noted L1. Well-circumscribed along the superior endplate without extension into the pedicles. Lumbar Spine CT 10/10/19 03:49 IMPRESSION: 1. Solid-appearing mass at the upper pole of the right kidney, which has increased in size compared to the prior study. This is most compatible with malignancy. Recommend correlation with clinical history. 2. New lytic lesion within the L1 vertebral body, suggesting metastatic disease. 3. No acute fracture. Lumbar Spine MRI 10/10/19 06:22 IMPRESSION: 1. HOMOGENEOUS ROUND LESION IN THE SUPERIOR BODY OF THE L1 VERTEBRAL BODY DESCRIBED. THIS IS CONCERNING FOR A METASTATIC LESION. AN ATYPICAL SCHMORL'S NODE COULD BE ANOTHER POSSIBILITY BUT LESS LIKELY. MAY CONSIDER BONE SCAN TO EVALUATE THE FINDING IN THE L1 VERTEBRAL BODY AND TO DETERMINE IF THERE ARE ANY OTHER SKELETAL LESIONS IN THE REMAINDER OF THE BODY. 2. MILD CHRONIC DEGENERATIVE CHANGES DESCRIBED. NO SIGNIFICANT STENOSIS OR IMPINGEMENT. 3. HETEROGENOUS MASS IN THE RIGHT KIDNEY, NOT COMPLETELY IMAGED. Thoracic Spine MRI 10/10/19 06:22 IMPRESSION: NORMAL MRI THORACIC SPINE. NO EVIDENCE OF THORACIC VERTEBRAL METASTASIS. Chest X-Ray 10/16/19 10:42 IMPRESSION: Mild atelectasis at left lung base. Shoulder X-Ray 10/24/19 00:00 IMPRESSION: No acute or suspicious radiographic findings. Central Venous Line 10/26/19 00:00 IMPRESSION: IMAGE(S) OBTAINED DURING PROCEDURE. IMPRESSION/RECOMMENDATION: 1. 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 Patient for dialysis of the right leg lesion. Hence the patient's Eliquis has been discontinued. Most likely will have the biopsy as an outpatient. 2. Recent recurrent atrial flutter with rapid ventricular response. Patient back to sinus rhythm post IV amiodarone drip which is been discontinued. Will increase the patient's amiodarone to 200 mg p.o. twice daily. Patient has history of proximal small atrial flutter. We will cut back the patient's amiodarone to 200 mg once a day. 3. Hyperkalemia in a patient with end-stage renal disease. The patient is getting dialyzed. 4. . History of congestive heart failure secondary to volume overload during prior admission. At present compensated. 5. Hypertension: At present uncontrolled continue current medications. Increase the patient's clonidine to 0.1 mg p.o. every 8 hours. 6. END STAGE RENAL DISEASE: On hemodialysis. 7. History of hyperlipidemia. Continue statins 8. Murmur of mitral regurgitation: Mild mitral regurgitation by echocardiography. 9. Hyperkalemia: Nephrology on the case. 10. Moderate pulmonary hypertension. 11. 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 Clinically and by NEWTON no significant mitral regurgitation. Continue antibiotics. Medications reviewed. Medical regimen and management plan discussed with attending physician. Medical decision making is of moderate complexity... 40 minutes spent on the patient more than 50% of time spent in direct patient care. At present cardiac status is stable. Will follow.
--- NOTE | 2019-10-26 19:34 | PDOC PROGRESS REPORT ---
Subjective Progress Note for:: 10/26/19 Subjective:: Patient was seen by the bedside, the repeat blood culture done came back negative for bacterial growth, the plan is for patient to have permacath now that the blood culture is negative, it may also be reasonable to reconsult Dr. Bermeo for him to determine his plan of care from oncologic standpoint, the original plan was for the patient to undergo biopsy of the lesion in the lumbar bone because it was felt that the lesion could represent kidney cancer metastasis but because of the MRSA septicemia this plan was postponed indefinitely until the blood culture returns back negative Reason For Visit: RENAL MASS/ESRD/BACK PAIN Physical Exam Vital Signs: Temp Pulse Resp BP Pulse Ox 98.0 F 82 16 143/67 H 96 10/26/19 15:12 10/26/19 15:12 10/26/19 15:12 10/26/19 15:12 10/26/19 15:12 Intake & Output 10/25/19 10/26/19 10/27/19 06:59 06:59 06:59 Intake Total 820 682 480 Output Total 5 0 Balance 815 682 480 Weight 88.1 kg 84.5 kg 84.5 kg General appearance: PRESENT: no acute distress Eye exam: PRESENT: PERRLA Respiratory exam: PRESENT: clear to auscultation dave Cardiovascular exam: PRESENT: +S1, +S2 GI/Abdominal exam: PRESENT: soft Neurological exam: PRESENT: alert, CN II-XII grossly intact Results Laboratory Results: 10/25/19 06:10 10/26/19 04:58 10/26/19 04:58 Sodium 132.6 L Potassium 5.5 H D Chloride 92 L Carbon Dioxide 23 Anion Gap 18 BUN 86 H D Creatinine 10.42 H Est GFR ( Amer) 6 L Glucose 119 H Calcium 8.6 Total Bilirubin 0.6 AST 27 Alkaline Phosphatase 125 Total Protein 7.6 Albumin 3.0 L 10/09/19 10/09/19 23:16 23:16 Creatine Kinase 121 CK-MB (CK-2) 0.57 Troponin I 0.112 Impressions: Abdomen/Pelvis CT 10/10/19 00:00 IMPRESSION: Prominent axillary nodes. Not definitely pathologic. Indeterminate nodes in the mediastinum. Solid right renal mass measuring over 6 cm. Atrophic kidneys. Probable Schmorl's noted L1. Well-circumscribed along the superior endplate without extension into the pedicles. Chest CT 10/10/19 00:00 IMPRESSION: Prominent axillary nodes. Not definitely pathologic. Indeterminate nodes in the mediastinum. Solid right renal mass measuring over 6 cm. Atrophic kidneys. Probable Schmorl's noted L1. Well-circumscribed along the superior endplate without extension into the pedicles. Lumbar Spine CT 10/10/19 03:49 IMPRESSION: 1. Solid-appearing mass at the upper pole of the right kidney, which has increased in size compared to the prior study. This is most compatible with malignancy. Recommend correlation with clinical history. 2. New lytic lesion within the L1 vertebral body, suggesting metastatic disease. 3. No acute fracture. Lumbar Spine MRI 10/10/19 06:22 IMPRESSION: 1. HOMOGENEOUS ROUND LESION IN THE SUPERIOR BODY OF THE L1 VERTEBRAL BODY DESCRIBED. THIS IS CONCERNING FOR A METASTATIC LESION. AN ATYPICAL SCHMORL'S NODE COULD BE ANOTHER POSSIBILITY BUT LESS LIKELY. MAY CONSIDER BONE SCAN TO EVALUATE THE FINDING IN THE L1 VERTEBRAL BODY AND TO DETERMINE IF THERE ARE ANY OTHER SKELETAL LESIONS IN THE REMAINDER OF THE BODY. 2. MILD CHRONIC DEGENERATIVE CHANGES DESCRIBED. NO SIGNIFICANT STENOSIS OR IMPINGEMENT. 3. HETEROGENOUS MASS IN THE RIGHT KIDNEY, NOT COMPLETELY IMAGED. Thoracic Spine MRI 10/10/19 06:22 IMPRESSION: NORMAL MRI THORACIC SPINE. NO EVIDENCE OF THORACIC VERTEBRAL METASTASIS. Chest X-Ray 10/16/19 10:42 IMPRESSION: Mild atelectasis at left lung base. Shoulder X-Ray 10/24/19 00:00 IMPRESSION: No acute or suspicious radiographic findings. Central Venous Line 10/26/19 00:00 IMPRESSION: IMAGE(S) OBTAINED DURING PROCEDURE. 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 Is this a current diagnosis for this admission?: Yes Plan: Reconsult Dr. Bermeo oncology (3) End stage renal disease on dialysis Is this a current diagnosis for this admission?: Yes (4) Lytic lesion of bone on x-ray Is this a current diagnosis for this admission?: Yes (5) Atrial flutter Qualifiers: Atrial flutter type: typical Qualified Code(s): I48.3 - Typical atrial flutter Is this a current diagnosis for this admission?: Yes (6) Metabolic encephalopathy Is this a current diagnosis for this admission?: Yes (7) Aortic valve regurgitation Qualifiers: Cardiac valve disease etiology: nonrheumatic Qualified Code(s): I35.1 - Nonrheumatic aortic (valve) insufficiency Is this a current diagnosis for this admission?: Yes (8) Endocarditis of mitral valve Is this a current diagnosis for this admission?: Yes - Time Time Spent with patient: 15-24 minutes Level of Care: IMCU
[2019-10-26] MEDS ORDERED: PATIROMER 8.4 GM SUSP PACKET PO ONE (19:45)
[2019-10-26] MEDS: FAMOTIDINE 20 MG TABLET PO SCH (21:16)
[2019-10-27] MEDS ORDERED: HEPARIN SOD (PORCINE) 1,000 UNIT/ML 10 ML VIAL IV PRN (05:00)
[2019-10-27 06:07] LABS: HEMATOCRIT 27.1 % (37.9-51.0); HEMOGLOBIN 9.1 g/dL (13.5-17.0); MEAN CORPUSCULAR HEMOGLOBIN 29.1 pg (27.0-33.4); MEAN CORPUSCULAR HGB CONC 33.5 g/dL (32.0-36.0); MEAN CORPUSCULAR VOLUME 87 fl (80-97); PLATELET COUNT 334 10^3/uL (150-450); RED BLOOD COUNT 3.11 10^6/uL (4.35-5.55); RED CELL DISTRIBUTION WIDTH 15.3 % (11.5-14.0)
[2019-10-27] MEDS: CLONIDINE HCL 0.1 MG TABLET PO SCH ×3 (06:08→22:34)
[2019-10-27 06:24] LABS: ANION GAP 16 (5-19); BLOOD UREA NITROGEN 103 mg/dL (7-20); CALCIUM 8.2 mg/dL (8.4-10.2); CARBON DIOXIDE 23 mmol/L (22-30); CHLORIDE 92 mmol/L (98-107); GLUCOSE 112 mg/dL (75-110); POTASSIUM 5.8 mmol/L (3.6-5.0)
[2019-10-27 06:26] LABS: VANCOMYCIN,TROUGH 20.6 ug/mL (5.0-20.0)
[2019-10-27] MEDS ORDERED: EPOETIN ALFA-EPBX 10,000 UNIT/ML VIAL (RENAL) IV PRN (10:08)
[2019-10-27] MEDS: DOCUSATE SODIUM 100 MG CAPSULE PO SCH (11:32)
[2019-10-27] MEDS: AMIODARONE HCL 200 MG TABLET PO SCH (11:32)
[2019-10-27] MEDS: ACETAMINOPHEN 325 MG TABLET PO PRN ×2 (14:02→22:34)
--- NOTE | 2019-10-27 14:26 | PDOC PROGRESS REPORT ---
Subjective Progress Note for:: 10/27/19 Reason For Visit: Patient seen today on dialysis. He is undergoing dialysis without any issues. He has a temporary left femoral catheter. He is waiting for sterilization of his blood before he has IJ PermCath placed. Vital signs are stable. He has some left shoulder pain when he moves but otherwise doing better. No low back pains. Denies any fever or chills. Labs and medications were reviewed.Dialysis orders were reviewed with the treating dialysis nurse. Physical Exam Vital Signs: Temp Pulse Resp BP Pulse Ox 97.9 F 73 16 137/67 H 100 10/27/19 11:29 10/27/19 11:29 10/27/19 11:29 10/27/19 11:29 10/27/19 11:29 Intake & Output 10/26/19 10/27/19 10/28/19 06:59 06:59 06:59 Intake Total 682 924 Output Total 0 Balance 682 924 Weight 84.5 kg 87.7 kg General appearance: PRESENT: no acute distress Respiratory exam: PRESENT: clear to auscultation dave. ABSENT: crackles Cardiovascular exam: PRESENT: +S1, +S2 GI/Abdominal exam: PRESENT: normal bowel sounds, soft. ABSENT: organomegaly, tenderness Extremities exam: ABSENT: pedal edema Neurological exam: PRESENT: alert, awake, oriented to person, oriented to place Psychiatric exam: PRESENT: appropriate affect Results Laboratory Results: 10/27/19 05:15 10/27/19 05:14 10/27/19 10/27/19 05:14 05:15 WBC 11.0 H RBC 3.11 L Hgb 9.1 L Hct 27.1 L MCV 87 MCH 29.1 MCHC 33.5 RDW 15.3 H Plt Count 334 Sodium 130.5 L Potassium 5.8 H Chloride 92 L Carbon Dioxide 23 Anion Gap 16 BUN 103 H Creatinine 12.27 H Est GFR ( Amer) 5 L Glucose 112 H Calcium 8.2 L 10/22/19 11:52 Blood Blood Culture - Final NO GROWTH IN 5 DAYS 10/22/19 11:45 Blood Blood Culture - Final NO GROWTH IN 5 DAYS 10/09/19 10/09/19 23:16 23:16 Creatine Kinase 121 CK-MB (CK-2) 0.57 Troponin I 0.112 Impressions: Abdomen/Pelvis CT 10/10/19 00:00 IMPRESSION: Prominent axillary nodes. Not definitely pathologic. Indeterminate nodes in the mediastinum. Solid right renal mass measuring over 6 cm. Atrophic kidneys. Probable Schmorl's noted L1. Well-circumscribed along the superior endplate without extension into the pedicles. Chest CT 10/10/19 00:00 IMPRESSION: Prominent axillary nodes. Not definitely pathologic. Indeterminate nodes in the mediastinum. Solid right renal mass measuring over 6 cm. Atrophic kidneys. Probable Schmorl's noted L1. Well-circumscribed along the superior endplate without extension into the pedicles. Lumbar Spine CT 10/10/19 03:49 IMPRESSION: 1. Solid-appearing mass at the upper pole of the right kidney, which has increased in size compared to the prior study. This is most compatible with malignancy. Recommend correlation with clinical history. 2. New lytic lesion within the L1 vertebral body, suggesting metastatic disease. 3. No acute fracture. Lumbar Spine MRI 10/10/19 06:22 IMPRESSION: 1. HOMOGENEOUS ROUND LESION IN THE SUPERIOR BODY OF THE L1 VERTEBRAL BODY DESCRIBED. THIS IS CONCERNING FOR A METASTATIC LESION. AN ATYPICAL SCHMORL'S NODE COULD BE ANOTHER POSSIBILITY BUT LESS LIKELY. MAY CONSIDER BONE SCAN TO EVALUATE THE FINDING IN THE L1 VERTEBRAL BODY AND TO DETERMINE IF THERE ARE ANY OTHER SKELETAL LESIONS IN THE REMAINDER OF THE BODY. 2. MILD CHRONIC DEGENERATIVE CHANGES DESCRIBED. NO SIGNIFICANT STENOSIS OR IMPINGEMENT. 3. HETEROGENOUS MASS IN THE RIGHT KIDNEY, NOT COMPLETELY IMAGED. Thoracic Spine MRI 10/10/19 06:22 IMPRESSION: NORMAL MRI THORACIC SPINE. NO EVIDENCE OF THORACIC VERTEBRAL METASTASIS. Chest X-Ray 10/16/19 10:42 IMPRESSION: Mild atelectasis at left lung base. Shoulder X-Ray 10/24/19 00:00 IMPRESSION: No acute or suspicious radiographic findings. Central Venous Line 10/26/19 00:00 IMPRESSION: IMAGE(S) OBTAINED DURING PROCEDURE. Assessment & Plan - Diagnosis (1) End-stage renal disease on hemodialysis Is this a current diagnosis for this admission?: Yes Plan: Patient currently undergoing dialysis. Vital signs are stable. Dialysis being supervised to ensure safe and smooth procedure. Plan to remove 1 to 2 L of fluid as tolerated. Dialysis orders were reviewed with the treating dialysis nurse. Catheter was examined. (2) Lower back pain Qualifiers: Chronicity: acute Back pain laterality: bilateral Sciatica presence: without sciatica Qualified Code(s): M54.5 - Low back pain Is this a current diagnosis for this admission?: Yes Plan: Patient is got renal mass along with a homogeneous bone lesion is L1. This is going to be explored and follow-up with kyphoplasty by Dr. Billings/hayder hardy. The procedure has been postponed since he is now bacteremic.His low back pain is resolved. (3) Renal mass, right Is this a current diagnosis for this admission?: Yes Plan: Work-up as mentioned earlier being managed by heme oncologist and pain management physicians. (4) Hyperkalemia Is this a current diagnosis for this admission?: Yes Plan: Should respond to dialysis. Adjust dose of Veltassa daily. (5) Hypertension Is this a current diagnosis for this admission?: Yes Plan: Blood pressures better. Continue on current plans. (6) Paroxysmal atrial flutter Is this a current diagnosis for this admission?: Yes Plan: Presently rate controlled. Management as per cardiology. (7) Bone lesion Plan: L1 lesion that is being explored for possible benign versus metastatic lesion from right kidney mass. Plans as outlined earlier. (8) Staphylococcus aureus bacteremia Is this a current diagnosis for this admission?: Yes Plan: MRSA. Has a diagnosis on [place] to have bacterial endocarditis as well. Dosed with vancomycin. Plan to continue vancomycin postdialysis. However current Vanc levels are toxic and therefore vanc is on hold. Today's vanc dose level was 20. Patient has had his IJ catheter removed presently on temporary dialysis catheter. 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
[2019-10-27] MEDS: PATIROMER 8.4 GM SUSP PACKET PO SCH (17:39)
--- NOTE | 2019-10-27 17:57 | PDOC PROGRESS REPORT ---
Subjective Progress Note for:: 10/27/19 Subjective:: I saw patient by the bedside, he expressed desire to go to group home home for rehabilitation, apparently he has not had the permacath for hemodialysis still presently on temporary dialysis catheter based on Dr. Magdy Benson's note, this will delay discharge. The plan tentatively is for him to be discharged by Friday if the PermCath is inserted. He will need to follow with oncology, Dr. Bermeo for plan of care for his cancer of his kidney, this is not confirmed yet by tissue diagnosis, but it is highly suspicious to be malignant lesion based on the interval increase in size of the neoplasm. I will repeat blood culture today Reason For Visit: RENAL MASS/ESRD/BACK PAIN Physical Exam Vital Signs: Temp Pulse Resp BP Pulse Ox 97.9 F 80 16 137/67 H 100 10/27/19 11:29 10/27/19 14:00 10/27/19 11:29 10/27/19 11:29 10/27/19 11:29 Intake & Output 10/26/19 10/27/19 10/28/19 06:59 06:59 06:59 Intake Total 682 924 Output Total 0 Balance 682 924 Weight 84.5 kg 87.7 kg General appearance: PRESENT: no acute distress Eye exam: PRESENT: PERRLA Respiratory exam: PRESENT: clear to auscultation dave Cardiovascular exam: PRESENT: +S1, +S2 GI/Abdominal exam: PRESENT: soft Neurological exam: PRESENT: alert Results Laboratory Results: 10/27/19 05:15 10/27/19 05:14 10/27/19 10/27/19 05:14 05:15 WBC 11.0 H RBC 3.11 L Hgb 9.1 L Hct 27.1 L MCV 87 MCH 29.1 MCHC 33.5 RDW 15.3 H Plt Count 334 Sodium 130.5 L Potassium 5.8 H Chloride 92 L Carbon Dioxide 23 Anion Gap 16 BUN 103 H Creatinine 12.27 H Est GFR ( Amer) 5 L Glucose 112 H Calcium 8.2 L 10/22/19 11:52 Blood Blood Culture - Final NO GROWTH IN 5 DAYS 10/22/19 11:45 Blood Blood Culture - Final NO GROWTH IN 5 DAYS 10/09/19 10/09/19 23:16 23:16 Creatine Kinase 121 CK-MB (CK-2) 0.57 Troponin I 0.112 Impressions: Abdomen/Pelvis CT 10/10/19 00:00 IMPRESSION: Prominent axillary nodes. Not definitely pathologic. Indeterminate nodes in the mediastinum. Solid right renal mass measuring over 6 cm. Atrophic kidneys. Probable Schmorl's noted L1. Well-circumscribed along the superior endplate without extension into the pedicles. Chest CT 10/10/19 00:00 IMPRESSION: Prominent axillary nodes. Not definitely pathologic. Indeterminate nodes in the mediastinum. Solid right renal mass measuring over 6 cm. Atrophic kidneys. Probable Schmorl's noted L1. Well-circumscribed along the superior endplate without extension into the pedicles. Lumbar Spine CT 10/10/19 03:49 IMPRESSION: 1. Solid-appearing mass at the upper pole of the right kidney, which has increased in size compared to the prior study. This is most compatible with malignancy. Recommend correlation with clinical history. 2. New lytic lesion within the L1 vertebral body, suggesting metastatic disease. 3. No acute fracture. Lumbar Spine MRI 10/10/19 06:22 IMPRESSION: 1. HOMOGENEOUS ROUND LESION IN THE SUPERIOR BODY OF THE L1 VERTEBRAL BODY DESCRIBED. THIS IS CONCERNING FOR A METASTATIC LESION. AN ATYPICAL SCHMORL'S NODE COULD BE ANOTHER POSSIBILITY BUT LESS LIKELY. MAY CONSIDER BONE SCAN TO EVALUATE THE FINDING IN THE L1 VERTEBRAL BODY AND TO DETERMINE IF THERE ARE ANY OTHER SKELETAL LESIONS IN THE REMAINDER OF THE BODY. 2. MILD CHRONIC DEGENERATIVE CHANGES DESCRIBED. NO SIGNIFICANT STENOSIS OR IMPINGEMENT. 3. HETEROGENOUS MASS IN THE RIGHT KIDNEY, NOT COMPLETELY IMAGED. Thoracic Spine MRI 10/10/19 06:22 IMPRESSION: NORMAL MRI THORACIC SPINE. NO EVIDENCE OF THORACIC VERTEBRAL METASTASIS. Chest X-Ray 10/16/19 10:42 IMPRESSION: Mild atelectasis at left lung base. Shoulder X-Ray 10/24/19 00:00 IMPRESSION: No acute or suspicious radiographic findings. Central Venous Line 10/26/19 00:00 IMPRESSION: IMAGE(S) OBTAINED DURING PROCEDURE. 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 Is this a current diagnosis for this admission?: Yes (3) End stage renal disease on dialysis Is this a current diagnosis for this admission?: Yes (4) Lytic lesion of bone on x-ray Is this a current diagnosis for this admission?: Yes (5) Atrial flutter Qualifiers: Atrial flutter type: typical Qualified Code(s): I48.3 - Typical atrial flutter Is this a current diagnosis for this admission?: Yes (6) Metabolic encephalopathy Is this a current diagnosis for this admission?: Yes (7) Aortic valve regurgitation Qualifiers: Cardiac valve disease etiology: nonrheumatic Qualified Code(s): I35.1 - Nonrheumatic aortic (valve) insufficiency Is this a current diagnosis for this admission?: Yes (8) Endocarditis of mitral valve Is this a current diagnosis for this admission?: Yes Plan: Patient with endocarditis of [place] mitral valve, he will continue IV vancomycin on postdialysis days, he has elevated trough level of vancomycin, the vancomycin has been on hold for the last couple of days - Time Time Spent with patient: 25-34 minutes Level of Care: IMCU
[2019-10-27] MEDS ORDERED: VANCOMYCIN HCL 500 MG in DEXTROSE 5%-WATER 100 ML IV SCH (18:00)
--- NOTE | 2019-10-27 21:56 | Progress Note ---
Provider Note Provider Note: Cardiology PROGRESS NOTE by Dr. Amanda Dumont on 10/27/2019. SUBJECTIVE: The patient denies any chest pain discomfort. He has no PND orthopnea. There is no recurrence of atrial flutter. There is no ventricular arrhythmias. Note that the patient's biopsy will be done as outpatient. Hence we need to revisit the restarting of Eliquis. There is no peripheral embolization due to his endocarditis. Of note the patient has not yet had his permacath placed. They are waiting for sterilization of the blood cultures. The patient has a left femoral temporary dialysis catheter. PHYSICAL EXAMINATION: The patient is mildly obese. Appears to be chronically ill. Selected Entries 10/27/19 14:53 Temperature 98.5 F Temperature Oral Source Pulse Rate 82 Respiratory 18 Rate Blood Pressure 121/55 L Blood Pressure 77 Mean BP Location Left Arm BP Position Supine O2 Sat by Pulse 98 Oximetry Oxygen Delivery Room Air Method HEAD: Is atraumatic and normocephalic. EYES: Pupils are equal round regular reactive to light accommodation. External ocular movements are normal. There is no conjunctival pallor. There is no scleral icterus. EARS: Tympanic membranes are intact. External auditory canals are clear. NOSE: There is no deviated nasal septum. There is no inflammation of the nasal mucous membrane. MOUTH: Mucous membranes of mouth are moist. Tongue is moist. There is no ulcers in the mouth. There is no bleeding from the gums. THROAT: There is no redness of the oropharynx. There is no exudates. SKIN: There is no skin rashes. There is no petechia or ecchymosis. There is no skin lesions. NECK: Is supple. There is no JVD. Carotids equal there is no bruit. There is no lymphadenopathy. Trachea central. LUNGS: Lungs are clear to auscultation percussion, without any rhonchi rales or wheezing. THERE IS NO CHEST WALL TENDERNESS. Heart: S1, S2 heard normally. There is no S3 gallop. There is no S4 gallop. There is systolic murmur left sternal border and apex. Murmur of mitral regurgitation heard. . There is no rub. ABDOMEN: Soft. Nontender. There is no hepatosplenomegaly. All sounds are well heard. There is no tender areas of masses. EXTREMITIES: Femorals are diminished. There is no femoral bruits. Leg pulses are diminished. There is no pedal edema. There is diffuse swelling of the right upper extremity. There is no DVT or cellulitis. There is no cyanosis or clubbing. There is no calf tenderness. 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 PSYCHIATRIC: The patient is not agitated or anxious. Labs- All tests 24 hr 10/27/19 10/27/19 10/27/19 05:14 05:14 05:15 WBC 11.0 H RBC 3.11 L Hgb 9.1 L Hct 27.1 L MCV 87 MCH 29.1 MCHC 33.5 RDW 15.3 H Plt Count 334 Sodium 130.5 L Potassium 5.8 H Chloride 92 L Carbon Dioxide 23 Anion Gap 16 BUN 103 H Creatinine 12.27 H Est GFR ( Amer) 5 L Est GFR (MDRD) Non-Af 4 L Glucose 112 H Calcium 8.2 L Time Trough Drawn 0514 Vancomycin Trough 20.6 H Abdomen/Pelvis CT 10/10/19 00:00 IMPRESSION: Prominent axillary nodes. Not definitely pathologic. Indeterminate nodes in the mediastinum. Solid right renal mass measuring over 6 cm. Atrophic kidneys. Probable Schmorl's noted L1. Well-circumscribed along the superior endplate without extension into the pedicles. Chest CT 10/10/19 00:00 IMPRESSION: Prominent axillary nodes. Not definitely pathologic. Indeterminate nodes in the mediastinum. Solid right renal mass measuring over 6 cm. Atrophic kidneys. Probable Schmorl's noted L1. Well-circumscribed along the superior endplate without extension into the pedicles. Lumbar Spine CT 10/10/19 03:49 IMPRESSION: 1. Solid-appearing mass at the upper pole of the right kidney, which has increased in size compared to the prior study. This is most compatible with malignancy. Recommend correlation with clinical history. 2. New lytic lesion within the L1 vertebral body, suggesting metastatic disease. 3. No acute fracture. Lumbar Spine MRI 10/10/19 06:22 IMPRESSION: 1. HOMOGENEOUS ROUND LESION IN THE SUPERIOR BODY OF THE L1 VERTEBRAL BODY DESCRIBED. THIS IS CONCERNING FOR A METASTATIC LESION. AN ATYPICAL SCHMORL'S NODE COULD BE ANOTHER POSSIBILITY BUT LESS LIKELY. MAY CONSIDER BONE SCAN TO EVALUATE THE FINDING IN THE L1 VERTEBRAL BODY AND TO DETERMINE IF THERE ARE ANY OTHER SKELETAL LESIONS IN THE REMAINDER OF THE BODY. 2. MILD CHRONIC DEGENERATIVE CHANGES DESCRIBED. NO SIGNIFICANT STENOSIS OR IMPINGEMENT. 3. HETEROGENOUS MASS IN THE RIGHT KIDNEY, NOT COMPLETELY IMAGED. Thoracic Spine MRI 10/10/19 06:22 IMPRESSION: NORMAL MRI THORACIC SPINE. NO EVIDENCE OF THORACIC VERTEBRAL METASTASIS. Chest X-Ray 10/16/19 10:42 IMPRESSION: Mild atelectasis at left lung base. Shoulder X-Ray 10/24/19 00:00 IMPRESSION: No acute or suspicious radiographic findings. Central Venous Line 10/26/19 00:00 IMPRESSION: IMAGE(S) OBTAINED DURING PROCEDURE. IMPRESSION/RECOMMENDATION: 1. 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 Patient for dialysis of the right leg lesion. Hence the patient's Eliquis has been discontinued. Most likely will have the biopsy as an outpatient. 2. Recent recurrent atrial flutter with rapid ventricular response. Patient back to sinus rhythm post IV amiodarone drip which is been discontinued. Will decrease the patient's amiodarone to 200 mg p.o. once daily. Patient has history of proximal small atrial flutter. We will cut back the patient's amiodarone to 200 mg once a day. 3. Hyperkalemia in a patient with end-stage renal disease. The patient is getting dialyzed. 4. . History of congestive heart failure secondary to volume overload during prior admission. At present compensated. 5. Hypertension: At present uncontrolled continue current medications. Increase the patient's clonidine to 0.1 mg p.o. every 8 hours. 6. END STAGE RENAL DISEASE: On hemodialysis. 7. History of hyperlipidemia. Continue statins 8. Murmur of mitral regurgitation: Mild mitral regurgitation by echocardiography. 9. Hyperkalemia: Nephrology on the case. 10. Moderate pulmonary hypertension. 11. 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 Clinically and by [place] no significant mitral regurgitation. Continue antibiotics. Medications reviewed. Medical regimen and management plan discussed with attending physician. Medical decision making is of moderate complexity... 40 minutes spent on the patient more than 50% of time spent in direct patient care. At present cardiac status is stable. Will follow patient.
[2019-10-27] MEDS: FAMOTIDINE 20 MG TABLET PO SCH (22:34)
[2019-10-27] MEDS: DIPHENHYDRAMINE HCL 25 MG CAPSULE PO PRN (22:56)
[2019-10-28 06:18] LABS: ANION GAP 17 (5-19); BLOOD UREA NITROGEN 77 mg/dL (7-20); CALCIUM 8.2 mg/dL (8.4-10.2); CARBON DIOXIDE 22 mmol/L (22-30); CHLORIDE 92 mmol/L (98-107); GLUCOSE 110 mg/dL (75-110); POTASSIUM 5.4 mmol/L (3.6-5.0); VANCOMYCIN,TROUGH 23.1 ug/mL (5.0-20.0)
[2019-10-28] MEDS: CLONIDINE HCL 0.1 MG TABLET PO SCH ×3 (06:29→21:08)
[2019-10-28] MEDS: ACETAMINOPHEN 325 MG TABLET PO PRN ×2 (08:15→17:24)
[2019-10-28] MEDS: AMIODARONE HCL 200 MG TABLET PO SCH (09:57)
[2019-10-28] MEDS: DOCUSATE SODIUM 100 MG CAPSULE PO SCH (14:06)
--- NOTE | 2019-10-28 16:59 | Progress Note ---
Provider Note Provider Note: CARDIOLOGY PROGRESS NOTE by Dr. Amanda Raines on 10/28/2019. SUBJECTIVE: The patient denies any chest pain or discomfort. There is no shortness of breath. There is no PND orthopnea. There is no recurrence of atrial fibrillation. There is no arrhythmia seen on the monitor. She had both blood cultures drawn yesterday results are awaited. The plan is to get the patient to have a permacath replaced and also the patient to have renal biopsy. Hence will not restart the Eliquis for now. There is no TIA CVA symptoms. PHYSICAL EXAMINATION: The patient is mildly obese but appears to be chronically ill. But he is in no acute distress. Selected Entries 10/28/19 06:59 Temperature 98.5 F Temperature Oral Source Pulse Rate 69 Respiratory 18 Rate Blood Pressure 138/64 H Blood Pressure 88 Mean BP Location Left Arm BP Position Supine O2 Sat by Pulse 100 Oximetry Oxygen Delivery Room Air Method HEAD: Is atraumatic and normocephalic. EYES: Pupils are equal round regular reactive to light accommodation. External ocular movements are normal. There is no conjunctival pallor. There is no scleral icterus. EARS: Tympanic membranes are intact. External auditory canals are clear. NOSE: There is no deviated nasal septum. There is no inflammation of the nasal mucous membrane. MOUTH: Mucous membranes of mouth are moist. Tongue is moist. There is no ulcers in the mouth. There is no bleeding from the gums. THROAT: There is no redness of the oropharynx. There is no exudates. SKIN: There is no skin rashes. There is no petechia or ecchymosis. There is no skin lesions. NECK: Is supple. There is no JVD. Carotids equal there is no bruit. There is no lymphadenopathy. Trachea central. LUNGS: Lungs are clear to auscultation percussion, without any rhonchi rales or wheezing. THERE IS NO CHEST WALL TENDERNESS. Heart: S1, S2 heard normally. There is no S3 gallop. There is no S4 gallop. There is systolic murmur left sternal border and apex. Murmur of mitral regurgitation heard. . There is no rub. ABDOMEN: Soft. Nontender. There is no hepatosplenomegaly. All sounds are well heard. There is no tender areas of masses. EXTREMITIES: Femorals are diminished. There is no femoral bruits. Leg pulses are diminished. There is no pedal edema. There is diffuse swelling of the right upper extremity. There is no DVT or cellulitis. There is no cyanosis or clubbing. There is no calf tenderness. 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 PSYCHIATRIC: The patient is not agitated or anxious. Labs reviewed. IMPRESSION/RECOMMENDATION: 1. 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 Patient for dialysis of the right leg lesion. Hence the patient's Eliquis has been discontinued. Most likely will have the biopsy as an outpatient. 2. Recent recurrent atrial flutter with rapid ventricular response. Patient back to sinus rhythm post IV amiodarone drip which is been discontinued. Will decrease the patient's amiodarone to 200 mg p.o. once daily. Patient has history of proximal small atrial flutter. We will cut back the patient's amiodarone to 200 mg once a day. 3. Hyperkalemia in a patient with end-stage renal disease. The patient is getting dialyzed. 4. . History of congestive heart failure secondary to volume overload during prior admission. At present compensated. 5. Hypertension: At present uncontrolled continue current medications. Increase the patient's clonidine to 0.1 mg p.o. every 8 hours. 6. END STAGE RENAL DISEASE: On hemodialysis. 7. History of hyperlipidemia. Continue statins 8. Murmur of mitral regurgitation: Mild mitral regurgitation by echocardiography. 9. Hyperkalemia: Nephrology on the case. 10. Moderate pulmonary hypertension. 11. 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 Clinically and by [place] no significant mitral regurgitation. Continue antibiotics. Medications reviewed. Medical management and medical regimen discussed with Dr. Hannon. Medical decision making is of moderate complexity. 40 minutes spent as patient more than 50% time spent in direct patient care. Will follow.
[2019-10-28] MEDS: PATIROMER 8.4 GM SUSP PACKET PO SCH (17:26)
--- NOTE | 2019-10-28 19:47 | PDOC PROGRESS REPORT ---
Subjective Progress Note for:: 10/28/19 Subjective:: Patient seen by the bedside the repeat blood culture was again positive for MRSA despite vancomycin intravenously consistently. It is becoming a challenge to eradicate MRSA for this patient's blood despite appropriate antibiotic. The initial plan was for this patient to be discharged to correction tomorrow but the plan is presently shelved. The RN stated that he has a PermCath in his groin and also a temporary dialysis catheter is in the other groin Reason For Visit: RENAL MASS/ESRD/BACK PAIN Physical Exam Vital Signs: Temp Pulse Resp BP Pulse Ox 97.3 F 69 18 126/66 H 100 10/28/19 14:51 10/28/19 14:51 10/28/19 14:51 10/28/19 14:51 10/28/19 14:51 Intake & Output 10/27/19 10/28/19 10/29/19 06:59 06:59 06:59 Intake Total 287 732 5449 Output Total 1900 Balance 924 -1800 1005 Weight 87.7 kg 87.7 kg General appearance: PRESENT: no acute distress Eye exam: PRESENT: PERRLA Respiratory exam: PRESENT: clear to auscultation dave Cardiovascular exam: PRESENT: +S1, +S2 GI/Abdominal exam: PRESENT: soft Neurological exam: PRESENT: alert Results Laboratory Results: 10/27/19 05:15 10/28/19 05:17 10/28/19 05:17 Sodium 130.8 L Potassium 5.4 H Chloride 92 L Carbon Dioxide 22 Anion Gap 17 BUN 77 H Creatinine 10.08 H Est GFR ( Amer) 6 L Glucose 110 Calcium 8.2 L 10/27/19 20:17 Blood Blood Culture (PCR) - Final Staphylococcus Aureus 10/27/19 19:25 Blood Blood Culture (PCR) - Final Staphylococcus Aureus 10/09/19 10/09/19 23:16 23:16 Creatine Kinase 121 CK-MB (CK-2) 0.57 Troponin I 0.112 Impressions: Abdomen/Pelvis CT 10/10/19 00:00 IMPRESSION: Prominent axillary nodes. Not definitely pathologic. Indeterminate nodes in the mediastinum. Solid right renal mass measuring over 6 cm. Atrophic kidneys. Probable Schmorl's noted L1. Well-circumscribed along the superior endplate without extension into the pedicles. Chest CT 10/10/19 00:00 IMPRESSION: Prominent axillary nodes. Not definitely pathologic. Indeterminate nodes in the mediastinum. Solid right renal mass measuring over 6 cm. Atrophic kidneys. Probable Schmorl's noted L1. Well-circumscribed along the superior endplate without extension into the pedicles. Lumbar Spine CT 10/10/19 03:49 IMPRESSION: 1. Solid-appearing mass at the upper pole of the right kidney, which has increased in size compared to the prior study. This is most compatible with malignancy. Recommend correlation with clinical history. 2. New lytic lesion within the L1 vertebral body, suggesting metastatic disease. 3. No acute fracture. Lumbar Spine MRI 10/10/19 06:22 IMPRESSION: 1. HOMOGENEOUS ROUND LESION IN THE SUPERIOR BODY OF THE L1 VERTEBRAL BODY DESCRIBED. THIS IS CONCERNING FOR A METASTATIC LESION. AN ATYPICAL SCHMORL'S NODE COULD BE ANOTHER POSSIBILITY BUT LESS LIKELY. MAY CONSIDER BONE SCAN TO EVALUATE THE FINDING IN THE L1 VERTEBRAL BODY AND TO DETERMINE IF THERE ARE ANY OTHER SKELETAL LESIONS IN THE REMAINDER OF THE BODY. 2. MILD CHRONIC DEGENERATIVE CHANGES DESCRIBED. NO SIGNIFICANT STENOSIS OR IMPINGEMENT. 3. HETEROGENOUS MASS IN THE RIGHT KIDNEY, NOT COMPLETELY IMAGED. Thoracic Spine MRI 10/10/19 06:22 IMPRESSION: NORMAL MRI THORACIC SPINE. NO EVIDENCE OF THORACIC VERTEBRAL METASTASIS. Chest X-Ray 10/16/19 10:42 IMPRESSION: Mild atelectasis at left lung base. Shoulder X-Ray 10/24/19 00:00 IMPRESSION: No acute or suspicious radiographic findings. Central Venous Line 10/26/19 00:00 IMPRESSION: IMAGE(S) OBTAINED DURING PROCEDURE. 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 Is this a current diagnosis for this admission?: Yes (3) End stage renal disease on dialysis Is this a current diagnosis for this admission?: Yes (4) Lytic lesion of bone on x-ray Is this a current diagnosis for this admission?: Yes (5) Atrial flutter Qualifiers: Atrial flutter type: typical Qualified Code(s): I48.3 - Typical atrial flutter Is this a current diagnosis for this admission?: Yes (6) Metabolic encephalopathy Is this a current diagnosis for this admission?: Yes (7) Aortic valve regurgitation Qualifiers: Cardiac valve disease etiology: nonrheumatic Qualified Code(s): I35.1 - Nonrheumatic aortic (valve) insufficiency Is this a current diagnosis for this admission?: Yes (8) Endocarditis of mitral valve Is this a current diagnosis for this admission?: Yes Plan: Continue antibiotic - Time Time Spent with patient: 35 or more minutes Level of Care: IMCU
[2019-10-28] MEDS: FAMOTIDINE 20 MG TABLET PO SCH (21:08)
[2019-10-29] MEDS: ACETAMINOPHEN 325 MG TABLET PO PRN ×2 (04:45→15:24)
[2019-10-29] MEDS ORDERED: HEPARIN SOD (PORCINE) 1,000 UNIT/ML 10 ML VIAL IV PRN (05:00)
[2019-10-29] MEDS ORDERED: EPOETIN ALFA-EPBX 20,000 UNIT in SYRINGE, DISPOSABLE, 1 EACH IV PRN (05:00)
[2019-10-29] MEDS: CLONIDINE HCL 0.1 MG TABLET PO SCH ×3 (05:55→21:12)
[2019-10-29 06:26] LABS: HEMATOCRIT 26.5 % (37.9-51.0); HEMOGLOBIN 9.1 g/dL (13.5-17.0); MEAN CORPUSCULAR HEMOGLOBIN 29.8 pg (27.0-33.4); MEAN CORPUSCULAR HGB CONC 34.3 g/dL (32.0-36.0); MEAN CORPUSCULAR VOLUME 87 fl (80-97); PLATELET COUNT 327 10^3/uL (150-450); RED BLOOD COUNT 3.05 10^6/uL (4.35-5.55); RED CELL DISTRIBUTION WIDTH 14.9 % (11.5-14.0); WHITE BLOOD COUNT 9.3 10^3/uL (4.0-10.5)
[2019-10-29 06:54] LABS: ANION GAP 16 (5-19); BLOOD UREA NITROGEN 91 mg/dL (7-20); CALCIUM 8.4 mg/dL (8.4-10.2); CARBON DIOXIDE 23 mmol/L (22-30); CHLORIDE 90 mmol/L (98-107); GLUCOSE 108 mg/dL (75-110); POTASSIUM 5.7 mmol/L (3.6-5.0)
[2019-10-29 06:57] LABS: VANCOMYCIN,TROUGH 21.3 ug/mL (5.0-20.0)
--- NOTE | 2019-10-29 07:53 | PDOC PROGRESS REPORT ---
Subjective Progress Note for:: 10/29/19 Subjective:: No acute events, getting ready to be d/c'd home w/ 6wk IV atbx thru dialysis. Plan for f/u in oncology clinic in 2 wk Reason For Visit: RENAL MASS/ESRD/BACK PAIN Physical Exam Vital Signs: Temp Pulse Resp BP Pulse Ox 97.9 F 64 16 130/72 H 100 10/29/19 03:56 10/29/19 03:56 10/29/19 03:56 10/29/19 03:56 10/29/19 03:56 Intake & Output 10/28/19 10/29/19 10/30/19 06:59 06:59 06:59 Intake Total 100 1005 Output Total 1900 Balance -1800 1005 Weight 87.7 kg 89.7 kg General appearance: PRESENT: no acute distress, well-developed, well-nourished Head exam: PRESENT: atraumatic, normocephalic Eye exam: PRESENT: conjunctiva pink, EOMI, PERRLA. ABSENT: scleral icterus Ear exam: PRESENT: normal external ear exam Mouth exam: PRESENT: moist, tongue midline Neck exam: ABSENT: carotid bruit, JVD, lymphadenopathy, thyromegaly Respiratory exam: PRESENT: clear to auscultation dave. ABSENT: rales, rhonchi, wheezes Cardiovascular exam: PRESENT: RRR. ABSENT: diastolic murmur, rubs, systolic murmur Pulses: PRESENT: normal dorsalis pedis pul Vascular exam: PRESENT: normal capillary refill GI/Abdominal exam: PRESENT: normal bowel sounds, soft. ABSENT: distended, guarding, mass, organolmegaly, rebound, tenderness Rectal exam: PRESENT: deferred Extremities exam: PRESENT: full ROM. ABSENT: calf tenderness, clubbing, pedal edema Neurological exam: PRESENT: alert, awake, oriented to person, oriented to place, oriented to time, oriented to situation, CN II-XII grossly intact. ABSENT: motor sensory deficit Psychiatric exam: PRESENT: appropriate affect, normal mood. ABSENT: homicidal ideation, suicidal ideation Skin exam: PRESENT: dry, intact, warm. ABSENT: cyanosis, rash Results Laboratory Results: 10/29/19 05:54 10/29/19 05:54 10/29/19 10/29/19 05:54 05:54 WBC 9.3 RBC 3.05 L Hgb 9.1 L Hct 26.5 L MCV 87 MCH 29.8 MCHC 34.3 RDW 14.9 H Plt Count 327 Sodium 129.0 L Potassium 5.7 H Chloride 90 L Carbon Dioxide 23 Anion Gap 16 BUN 91 H Creatinine 11.90 H Est GFR ( Amer) 5 L Glucose 108 Calcium 8.4 10/27/19 20:17 Blood Blood Culture (PCR) - Final Staphylococcus Aureus 10/27/19 19:25 Blood Blood Culture (PCR) - Final Staphylococcus Aureus 10/09/19 10/09/19 23:16 23:16 Creatine Kinase 121 CK-MB (CK-2) 0.57 Troponin I 0.112 Impressions: Abdomen/Pelvis CT 10/10/19 00:00 IMPRESSION: Prominent axillary nodes. Not definitely pathologic. Indeterminate nodes in the mediastinum. Solid right renal mass measuring over 6 cm. Atrophic kidneys. Probable Schmorl's noted L1. Well-circumscribed along the superior endplate without extension into the pedicles. Chest CT 10/10/19 00:00 IMPRESSION: Prominent axillary nodes. Not definitely pathologic. Indeterminate nodes in the mediastinum. Solid right renal mass measuring over 6 cm. Atrophic kidneys. Probable Schmorl's noted L1. Well-circumscribed along the superior endplate without extension into the pedicles. Lumbar Spine CT 10/10/19 03:49 IMPRESSION: 1. Solid-appearing mass at the upper pole of the right kidney, which has increased in size compared to the prior study. This is most compatible with malignancy. Recommend correlation with clinical history. 2. New lytic lesion within the L1 vertebral body, suggesting metastatic disease. 3. No acute fracture. Lumbar Spine MRI 10/10/19 06:22 IMPRESSION: 1. HOMOGENEOUS ROUND LESION IN THE SUPERIOR BODY OF THE L1 VERTEBRAL BODY DESCRIBED. THIS IS CONCERNING FOR A METASTATIC LESION. AN ATYPICAL SCHMORL'S NODE COULD BE ANOTHER POSSIBILITY BUT LESS LIKELY. MAY CONSIDER BONE SCAN TO EVALUATE THE FINDING IN THE L1 VERTEBRAL BODY AND TO DETERMINE IF THERE ARE ANY OTHER SKELETAL LESIONS IN THE REMAINDER OF THE BODY. 2. MILD CHRONIC DEGENERATIVE CHANGES DESCRIBED. NO SIGNIFICANT STENOSIS OR IMPINGEMENT. 3. HETEROGENOUS MASS IN THE RIGHT KIDNEY, NOT COMPLETELY IMAGED. Thoracic Spine MRI 10/10/19 06:22 IMPRESSION: NORMAL MRI THORACIC SPINE. NO EVIDENCE OF THORACIC VERTEBRAL METASTASIS. Chest X-Ray 10/16/19 10:42 IMPRESSION: Mild atelectasis at left lung base. Shoulder X-Ray 10/24/19 00:00 IMPRESSION: No acute or suspicious radiographic findings. Central Venous Line 10/26/19 00:00 IMPRESSION: IMAGE(S) OBTAINED DURING PROCEDURE. Assessment & Plan - Diagnosis (1) Lytic lesion of bone on x-ray Is this a current diagnosis for this admission?: Yes Plan: Still will need bone bx but will need to complete full course of IV atbx prior to that (2) Renal mass, right Is this a current diagnosis for this admission?: Yes Plan: Bone bx preferred over renal bx. If that is needed, will need to be done in tertiary care setting (3) Pain, neoplasm-related Is this a current diagnosis for this admission?: Yes Plan: Cont w/ control per primary team - Time Time Spent with patient: 35 or more minutes
[2019-10-29] MEDS: DOCUSATE SODIUM 100 MG CAPSULE PO SCH (11:45)
[2019-10-29] MEDS: AMIODARONE HCL 200 MG TABLET PO SCH (11:45)
--- NOTE | 2019-10-29 12:41 | PDOC PROGRESS REPORT ---
Subjective Progress Note for:: 10/29/19 Reason For Visit: Patient seen today on dialysis. Undergoing dialysis without any issues. Vital signs are stable. He denies any chest pain shortness of breath. Denies any history of fever or chills. No history of any focal deficits. Labs and medications were reviewed. Unfortunately his blood cultures on the came back again persistently positive for more MRSA. He is dialyzing through a left femoral PermCath and has also got a temporary dialysis catheter in his right femoral. Dialysis orders were reviewed with the treating dialysis nurse. Physical Exam Vital Signs: Temp Pulse Resp BP Pulse Ox 97.3 F 67 17 152/74 H 96 10/29/19 12:15 10/29/19 12:15 10/29/19 12:15 10/29/19 12:15 10/29/19 12:15 Intake & Output 10/28/19 10/29/19 10/30/19 06:59 06:59 06:59 Intake Total 100 1005 Output Total 1900 Balance -1800 1005 Weight 87.7 kg 89.7 kg General appearance: PRESENT: no acute distress Respiratory exam: PRESENT: clear to auscultation dave. ABSENT: crackles Cardiovascular exam: PRESENT: +S1, +S2 GI/Abdominal exam: PRESENT: normal bowel sounds, soft. ABSENT: organomegaly, tenderness Extremities exam: ABSENT: pedal edema Neurological exam: PRESENT: alert, awake, oriented to person, oriented to place Psychiatric exam: PRESENT: appropriate affect Skin exam: ABSENT: cyanosis, erythema, rash Results Laboratory Results: 10/29/19 05:54 10/29/19 05:54 10/29/19 10/29/19 05:54 05:54 WBC 9.3 RBC 3.05 L Hgb 9.1 L Hct 26.5 L MCV 87 MCH 29.8 MCHC 34.3 RDW 14.9 H Plt Count 327 Sodium 129.0 L Potassium 5.7 H Chloride 90 L Carbon Dioxide 23 Anion Gap 16 BUN 91 H Creatinine 11.90 H Est GFR ( Amer) 5 L Glucose 108 Calcium 8.4 10/27/19 20:17 Blood Blood Culture (PCR) - Final Staphylococcus Aureus 10/28/19 10:10 Nasophary (Mrsa Only) MRSA Culture - Final MRSA RECOVERED 10/27/19 19:25 Blood Blood Culture (PCR) - Final Staphylococcus Aureus 10/09/19 10/09/19 23:16 23:16 Creatine Kinase 121 CK-MB (CK-2) 0.57 Troponin I 0.112 Impressions: Abdomen/Pelvis CT 10/10/19 00:00 IMPRESSION: Prominent axillary nodes. Not definitely pathologic. Indeterminate nodes in the mediastinum. Solid right renal mass measuring over 6 cm. Atrophic kidneys. Probable Schmorl's noted L1. Well-circumscribed along the superior endplate without extension into the pedicles. Chest CT 10/10/19 00:00 IMPRESSION: Prominent axillary nodes. Not definitely pathologic. Indeterminate nodes in the mediastinum. Solid right renal mass measuring over 6 cm. Atrophic kidneys. Probable Schmorl's noted L1. Well-circumscribed along the superior endplate without extension into the pedicles. Lumbar Spine CT 10/10/19 03:49 IMPRESSION: 1. Solid-appearing mass at the upper pole of the right kidney, which has increased in size compared to the prior study. This is most compatible with malignancy. Recommend correlation with clinical history. 2. New lytic lesion within the L1 vertebral body, suggesting metastatic disease. 3. No acute fracture. Lumbar Spine MRI 10/10/19 06:22 IMPRESSION: 1. HOMOGENEOUS ROUND LESION IN THE SUPERIOR BODY OF THE L1 VERTEBRAL BODY DESCRIBED. THIS IS CONCERNING FOR A METASTATIC LESION. AN ATYPICAL SCHMORL'S NODE COULD BE ANOTHER POSSIBILITY BUT LESS LIKELY. MAY CONSIDER BONE SCAN TO EVALUATE THE FINDING IN THE L1 VERTEBRAL BODY AND TO DETERMINE IF THERE ARE ANY OTHER SKELETAL LESIONS IN THE REMAINDER OF THE BODY. 2. MILD CHRONIC DEGENERATIVE CHANGES DESCRIBED. NO SIGNIFICANT STENOSIS OR IMPINGEMENT. 3. HETEROGENOUS MASS IN THE RIGHT KIDNEY, NOT COMPLETELY IMAGED. Thoracic Spine MRI 10/10/19 06:22 IMPRESSION: NORMAL MRI THORACIC SPINE. NO EVIDENCE OF THORACIC VERTEBRAL METASTASIS. Chest X-Ray 10/16/19 10:42 IMPRESSION: Mild atelectasis at left lung base. Shoulder X-Ray 10/24/19 00:00 IMPRESSION: No acute or suspicious radiographic findings. Central Venous Line 10/26/19 00:00 IMPRESSION: IMAGE(S) OBTAINED DURING PROCEDURE. Assessment & Plan - Diagnosis (1) End-stage renal disease on hemodialysis Is this a current diagnosis for this admission?: Yes Plan: Patient currently undergoing dialysis. Vital signs are stable. Dialysis being supervised to ensure safe and smooth procedure. Plan to remove 1 to 2 L of fluid as tolerated. Dialysis orders were reviewed with the treating dialysis nurse. Catheter was examined. (2) Lower back pain Qualifiers: Chronicity: acute Back pain laterality: bilateral Sciatica presence: without sciatica Qualified Code(s): M54.5 - Low back pain Is this a current diagnosis for this admission?: Yes Plan: Patient is got renal mass along with a homogeneous bone lesion is L1. This is going to be explored and follow-up with kyphoplasty by Dr. Billings/pain management. The procedure has been postponed since he is now bacteremic.His low back pain is resolved. (3) Renal mass, right Is this a current diagnosis for this admission?: Yes Plan: Work-up as mentioned earlier being managed by heme oncologist. (4) Hyperkalemia Is this a current diagnosis for this admission?: Yes Plan: Should respond to dialysis. Adjust dose of Veltassa daily. (5) Hypertension Is this a current diagnosis for this admission?: Yes Plan: Blood pressures better. Continue on current plans. (6) Paroxysmal atrial flutter Is this a current diagnosis for this admission?: Yes Plan: Presently rate controlled. Management as per cardiology. (7) Bone lesion Plan: L1 lesion that is being explored for possible benign versus metastatic lesion from right kidney mass. Plans as outlined earlier. (8) Staphylococcus aureus bacteremia Is this a current diagnosis for this admission?: Yes Plan: MRSA. Has a diagnosis on [place] to have bacterial endocarditis as well. Dosed with vancomycin Which is therapeutic. Plan to continue vancomycin postdialysis.Patient has left femoral PermCath dialysis catheter placed and he also has a temporary dialysis catheter on his right side. Unfortunately patient still continues to be bacteremic in spite of therapeutic doses of vancomycin. Patient has had access issues in the past and has been worked up at [place]. To the best of my knowledge recall he has not had any form of AV graft or hero graft placed in him. He was scheduled to see vascular surgeons in [place] sometime this month but had to be postponed for his current admission. Note that he is being monitored by Dr. Galindo/[facility] ID specialist.Recommend that his femoral catheters times to be removed today by the on-call surgeons as Dr. Natalie Topete is not on-call anymore till Friday. He will at least have a couple of days of of catheter holidays which also is going to help him to be sterilized better. 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
--- NOTE | 2019-10-29 14:52 | Progress Note ---
Provider Note Provider Note: CARDIOLOGY PROGRESS NOTE by Dr. Amanda Dumont on 10/29/2019. SUBJECTIVE: The patient's blood culture came back positive for endocarditis. But the patient's nasopharyngeal smear is also positive for MRSA. Hence patient most likely has a colonization. Will have to discuss with ID whether this is true MRSA endocarditis or not. The patient denies any chest pain discomfort. There is no shortness of breath. There is no PND orthopnea. There is no atrial or ventricular arrhythmias seen. The patient remains in sinus rhythm on amiodarone. ID recommends that the all catheters of the patient be removed. PHYSICAL EXAMINATION: The patient is mildly obese. He appears to be chronically ill but in no acute distress. Selected Entries 10/29/19 12:15 Temperature 97.3 F Temperature Oral Source Pulse Rate 67 Respiratory 17 Rate Blood Pressure 152/74 H Blood Pressure 100 Mean BP Location Left Arm O2 Sat by Pulse 96 Oximetry Oxygen Delivery Room Air Method HEAD: Is atraumatic and normocephalic. EYES: Pupils are equal round regular reactive to light accommodation. External ocular movements are normal. There is no conjunctival pallor. There is no scleral icterus. EARS: Tympanic membranes are intact. External auditory canals are clear. NOSE: There is no deviated nasal septum. There is no inflammation of the nasal mucous membrane. MOUTH: Mucous membranes of mouth are moist. Tongue is moist. There is no ulcers in the mouth. There is no bleeding from the gums. THROAT: There is no redness of the oropharynx. There is no exudates. SKIN: There is no skin rashes. There is no petechia or ecchymosis. There is no skin lesions. NECK: Is supple. There is no JVD. Carotids equal there is no bruit. There is no lymphadenopathy. Trachea central. LUNGS: Lungs are clear to auscultation percussion, without any rhonchi rales or wheezing. THERE IS NO CHEST WALL TENDERNESS. Heart: S1, S2 heard normally. There is no S3 gallop. There is no S4 gallop. There is systolic murmur left sternal border and apex. Murmur of mitral regurgitation heard. . There is no rub. ABDOMEN: Soft. Nontender. There is no hepatosplenomegaly. All sounds are well heard. There is no tender areas of masses. EXTREMITIES: Femorals are diminished. There is no femoral bruits. Leg pulses are diminished. There is no pedal edema. There is diffuse swelling of the right upper extremity. There is no DVT or cellulitis. There is no cyanosis or clubbing. There is no calf tenderness. 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 PSYCHIATRIC: The patient is not agitated or anxious. 10/29/19 10/29/19 05:54 05:54 WBC 9.3 RBC 3.05 L Hgb 9.1 L Hct 26.5 L MCV 87 MCH 29.8 MCHC 34.3 RDW 14.9 H Plt Count 327 Sodium 129.0 L Potassium 5.7 H Chloride 90 L Carbon Dioxide 23 Anion Gap 16 BUN 91 H Creatinine 11.90 H Est GFR ( Amer) 5 L Glucose 108 Calcium 8.4 10/28/19 10:10 MRSA Culture - Final Nasophary (Mrsa Only) MRSA RECOVERED 10/27/19 20:17 Blood Culture (PCR) - Final Blood Blood Culture - Preliminary Staphylococcus Aureus Gram Positive Cocci Clusters 10/27/19 19:25 Blood Culture (PCR) - Final Blood Blood Culture - Preliminary Staphylococcus Aureus Gram Positive Cocci Clusters 10/22/19 11:52 Blood Culture - Final Blood NO GROWTH IN 5 DAYS IMPRESSION/RECOMMENDATION: 1. 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 Patient for dialysis of the right leg lesion. Hence the patient's Eliquis has been discontinued. Most likely will have the biopsy as an outpatient. 2. Recent recurrent atrial flutter with rapid ventricular response. Patient back to sinus rhythm post IV amiodarone drip which is been discontinued. Will decrease the patient's amiodarone to 200 mg p.o. once daily. Patient has history of proximal small atrial flutter. We will cut back the patient's amiodarone to 200 mg once a day. 3. Hyperkalemia in a patient with end-stage renal disease. The patient is getting dialyzed. 4. . History of congestive heart failure secondary to volume overload during prior admission. At present compensated. 5. Hypertension: At present uncontrolled continue current medications. Increase the patient's clonidine to 0.1 mg p.o. every 8 hours. 6. END STAGE RENAL DISEASE: On hemodialysis. 7. History of hyperlipidemia. Continue statins 8. Murmur of mitral regurgitation: Mild mitral regurgitation by echocardiography. 9. Hyperkalemia: Nephrology on the case. 10. Moderate pulmonary hypertension. 11. 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 Clinically and by NEWTON no significant mitral regurgitation. Continue antibiotics. Medications reviewed. Medical regimen and management plan discussed with the attending physician. Medical decision making is a moderate complexity. Will follow.
--- NOTE | 2019-10-29 16:49 | Progress Note ---
Provider Note Provider Note: ID telephone/remote consultation follow up note To summarize, pt initially presented due to back pain and has been found to have what appears to be a vertebral lytic lesion likely metastatic from enlarging renal mass. He has also been diagnosed with MRSA mitral valve endocarditis and on treatment with IV vancomycin. Pt has ESRD and had been dialyzing through a permcath since he had previously had problems witha R sided fistula, lymphedema, and R subclavian thrombosis. He had his L IJ based permcath removed in light of the MRSA bacteremia on 10/18. He had a temporary vascath placed in the R femoral vein on 10/19. MRSA bacteremia clearance was documented on 10/22. Events of past several days: Pt has had no new fever. He had c/o L shoulder pain, evaluated with plain films that showed osteopenia wihtout fx or bony lesion. Permcath was placed in the L femoral vein on 10/26. Repeat blood cultures were obtained on 10/27 from two peripheral sites and have MRSA in one bottle from each site. Per nursing notes, on 10/28 the patient complained that his neck pain was "too bad" to work with PT. On 10/29, the trialysis catheter was discontinued. Impression/Recommendations MRSA mitral valve endocarditis and persistent MRSA bacteremia in a dialysis patient - With persistent MRSA bacteremia, a search should be conducted for any foci of infection that can be intervened on. - Suggest obtaining repeat blood cultures; can get one set peripherally and one set through the line - The temporary dialysis catheter has been removed today 10/29 per notes. This may have been the source for recurrence. Right now, the new percath is not known to be infected, but it could become seeded due to the subsequent bacteremia. Generally, the line should be removed unless there are major contraindications, such as a lack of alternative venous access, and a new long-term catheter placed after additional blood cultures show negative results. A period of time free of lines would be ideal, but depending on what is feasible (need for access, limitation of sites), guidewire exchange of the catheter at the same site could be considered if the repeat blood cultures have been clear. - Yesterday pt c/o neck pain that prevented him from working with PT. MRSA bacteremia can be associated with pyogenic spondylodiscitis and paraspinal abscesses. Suggest getting an MRI of his cervical spine. - Pt previously had plain films to evaluate L shoulder pain; if shoulder pain is still present, an ultrasound may be helpful to look for an effusion and, if present, tapping the joint would be indicated. - This does not appear to be an antibiotic failure. He has been on IV vancomycin, and it has not been subtherapeutic. KAREN for vancomycin has been 1, which is not elevated. Would continue IV vancomycin. Jaison Galindo MD [facility] Infectious Diseases pager [phone]
[2019-10-29] MEDS: PATIROMER 8.4 GM SUSP PACKET PO SCH (17:17)
[2019-10-29] MEDS: VANCOMYCIN HCL 400 MG in DEXTROSE 5%-WATER 100 ML IV SCH (17:17)
--- NOTE | 2019-10-29 19:21 | PDOC PROGRESS REPORT ---
Subjective Progress Note for:: 10/29/19 Subjective:: Patient seen by the bedside, he has persistent MRSA bacteremia, the ID note was reviewed, recommend to discontinue all catheters because seeding of bacteria Reason For Visit: RENAL MASS/ESRD/BACK PAIN Physical Exam Vital Signs: Temp Pulse Resp BP Pulse Ox 98.2 F 73 19 131/70 H 99 10/29/19 16:41 10/29/19 16:41 10/29/19 16:41 10/29/19 16:41 10/29/19 16:41 Intake & Output 10/28/19 10/29/19 10/30/19 06:59 06:59 06:59 Intake Total 100 1005 838 Output Total 1900 1400 Balance -1800 1005 -562 Weight 87.7 kg 89.7 kg General appearance: PRESENT: no acute distress Eye exam: PRESENT: PERRLA Respiratory exam: PRESENT: clear to auscultation dave Cardiovascular exam: PRESENT: +S1, +S2 GI/Abdominal exam: PRESENT: soft Neurological exam: PRESENT: alert Results Laboratory Results: 10/29/19 05:54 10/29/19 05:54 10/29/19 10/29/19 05:54 05:54 WBC 9.3 RBC 3.05 L Hgb 9.1 L Hct 26.5 L MCV 87 MCH 29.8 MCHC 34.3 RDW 14.9 H Plt Count 327 Sodium 129.0 L Potassium 5.7 H Chloride 90 L Carbon Dioxide 23 Anion Gap 16 BUN 91 H Creatinine 11.90 H Est GFR ( Amer) 5 L Glucose 108 Calcium 8.4 10/27/19 20:17 Blood Blood Culture (PCR) - Final Staphylococcus Aureus 10/28/19 10:10 Nasophary (Mrsa Only) MRSA Culture - Final MRSA RECOVERED 10/27/19 19:25 Blood Blood Culture (PCR) - Final Staphylococcus Aureus 10/09/19 10/09/19 23:16 23:16 Creatine Kinase 121 CK-MB (CK-2) 0.57 Troponin I 0.112 Impressions: Abdomen/Pelvis CT 10/10/19 00:00 IMPRESSION: Prominent axillary nodes. Not definitely pathologic. Indeterminate nodes in the mediastinum. Solid right renal mass measuring over 6 cm. Atrophic kidneys. Probable Schmorl's noted L1. Well-circumscribed along the superior endplate without extension into the pedicles. Chest CT 10/10/19 00:00 IMPRESSION: Prominent axillary nodes. Not definitely pathologic. Indeterminate nodes in the mediastinum. Solid right renal mass measuring over 6 cm. Atrophic kidneys. Probable Schmorl's noted L1. Well-circumscribed along the superior endplate without extension into the pedicles. Lumbar Spine CT 10/10/19 03:49 IMPRESSION: 1. Solid-appearing mass at the upper pole of the right kidney, which has increased in size compared to the prior study. This is most compatible with malignancy. Recommend correlation with clinical history. 2. New lytic lesion within the L1 vertebral body, suggesting metastatic disease. 3. No acute fracture. Lumbar Spine MRI 10/10/19 06:22 IMPRESSION: 1. HOMOGENEOUS ROUND LESION IN THE SUPERIOR BODY OF THE L1 VERTEBRAL BODY DESCRIBED. THIS IS CONCERNING FOR A METASTATIC LESION. AN ATYPICAL SCHMORL'S NODE COULD BE ANOTHER POSSIBILITY BUT LESS LIKELY. MAY CONSIDER BONE SCAN TO EVALUATE THE FINDING IN THE L1 VERTEBRAL BODY AND TO DETERMINE IF THERE ARE ANY OTHER SKELETAL LESIONS IN THE REMAINDER OF THE BODY. 2. MILD CHRONIC DEGENERATIVE CHANGES DESCRIBED. NO SIGNIFICANT STENOSIS OR IMPINGEMENT. 3. HETEROGENOUS MASS IN THE RIGHT KIDNEY, NOT COMPLETELY IMAGED. Thoracic Spine MRI 10/10/19 06:22 IMPRESSION: NORMAL MRI THORACIC SPINE. NO EVIDENCE OF THORACIC VERTEBRAL METASTASIS. Chest X-Ray 10/16/19 10:42 IMPRESSION: Mild atelectasis at left lung base. Shoulder X-Ray 10/24/19 00:00 IMPRESSION: No acute or suspicious radiographic findings. Central Venous Line 10/26/19 00:00 IMPRESSION: IMAGE(S) OBTAINED DURING PROCEDURE. Assessment & Plan - Diagnosis (1) MRSA (methicillin resistant Staphylococcus aureus) septicemia Is this a current diagnosis for this admission?: Yes Plan: He has persistent MRSA septicemia, the recommendation from ID is for the dialysis catheter to be discontinued, it is to be noted when patient was catheter free the blood culture came back negative for MRSA, when catheter was reinserted for dialysis the blood culture was again positive for MRSA suggesting seeding of the organisms along the catheter line (2) Neoplasm of uncertain behavior of right kidney Is this a current diagnosis for this admission?: Yes (3) End stage renal disease on dialysis Is this a current diagnosis for this admission?: Yes (4) Lytic lesion of bone on x-ray Is this a current diagnosis for this admission?: Yes (5) Atrial flutter Qualifiers: Atrial flutter type: typical Qualified Code(s): I48.3 - Typical atrial flutter Is this a current diagnosis for this admission?: Yes (6) Metabolic encephalopathy Is this a current diagnosis for this admission?: Yes (7) Aortic valve regurgitation Qualifiers: Cardiac valve disease etiology: nonrheumatic Qualified Code(s): I35.1 - Nonrheumatic aortic (valve) insufficiency Is this a current diagnosis for this admission?: Yes (8) Endocarditis of mitral valve Is this a current diagnosis for this admission?: Yes Plan: He has MRSA endocarditis on vancomycin - Time Time Spent with patient: 35 or more minutes Level of Care: IMCU
[2019-10-29] MEDS: FAMOTIDINE 20 MG TABLET PO SCH (21:12)
--- NOTE | 2019-10-29 22:20 | PDOC PROGRESS REPORT ---
Subjective Progress Note for:: 10/29/19 Subjective:: There was uncertainty about the reason for consultation. From reading through the notes it appears that the attending physician wanted all vascular catheters removed however the nursing staff thought that the only catheter that was supposed removed has already been removed earlier in the day. I am unable to reach any of his attending physicians and consultants due to the fact that they are all off page. The cross covering attending physician does not have know ledge of what needs to be done. The patient states that he is tired and was not told of the definitive plans and he does not wish to have any further procedures done today. Will regroup in the morning and hopefully figure out exactly what needs to be done. Reason For Visit: RENAL MASS/ESRD/BACK PAIN Physical Exam Vital Signs: Temp Pulse Resp BP Pulse Ox 98.3 F 67 20 128/82 H 100 10/29/19 19:58 10/29/19 19:58 10/29/19 19:58 10/29/19 19:58 10/29/19 19:58 Intake & Output 10/28/19 10/29/19 10/30/19 06:59 06:59 06:59 Intake Total 100 1005 938 Output Total 1900 1400 Balance -1800 1005 -462 Weight 87.7 kg 89.7 kg Results Laboratory Results: 10/29/19 05:54 10/29/19 05:54 10/29/19 10/29/19 05:54 05:54 WBC 9.3 RBC 3.05 L Hgb 9.1 L Hct 26.5 L MCV 87 MCH 29.8 MCHC 34.3 RDW 14.9 H Plt Count 327 Sodium 129.0 L Potassium 5.7 H Chloride 90 L Carbon Dioxide 23 Anion Gap 16 BUN 91 H Creatinine 11.90 H Est GFR ( Amer) 5 L Glucose 108 Calcium 8.4 10/27/19 20:17 Blood Blood Culture (PCR) - Final Staphylococcus Aureus 10/28/19 10:10 Nasophary (Mrsa Only) MRSA Culture - Final MRSA RECOVERED 10/27/19 19:25 Blood Blood Culture (PCR) - Final Staphylococcus Aureus 10/09/19 10/09/19 23:16 23:16 Creatine Kinase 121 CK-MB (CK-2) 0.57 Troponin I 0.112 Impressions: Abdomen/Pelvis CT 10/10/19 00:00 IMPRESSION: Prominent axillary nodes. Not definitely pathologic. Indeterminate nodes in the mediastinum. Solid right renal mass measuring over 6 cm. Atrophic kidneys. Probable Schmorl's noted L1. Well-circumscribed along the superior endplate without extension into the pedicles. Chest CT 10/10/19 00:00 IMPRESSION: Prominent axillary nodes. Not definitely pathologic. Indeterminate nodes in the mediastinum. Solid right renal mass measuring over 6 cm. Atrophic kidneys. Probable Schmorl's noted L1. Well-circumscribed along the superior endplate without extension into the pedicles. Lumbar Spine CT 10/10/19 03:49 IMPRESSION: 1. Solid-appearing mass at the upper pole of the right kidney, which has increased in size compared to the prior study. This is most compatible with malignancy. Recommend correlation with clinical history. 2. New lytic lesion within the L1 vertebral body, suggesting metastatic disease. 3. No acute fracture. Lumbar Spine MRI 10/10/19 06:22 IMPRESSION: 1. HOMOGENEOUS ROUND LESION IN THE SUPERIOR BODY OF THE L1 VERTEBRAL BODY DESCRIBED. THIS IS CONCERNING FOR A METASTATIC LESION. AN ATYPICAL SCHMORL'S NODE COULD BE ANOTHER POSSIBILITY BUT LESS LIKELY. MAY CONSIDER BONE SCAN TO EVALUATE THE FINDING IN THE L1 VERTEBRAL BODY AND TO DETERMINE IF THERE ARE ANY OTHER SKELETAL LESIONS IN THE REMAINDER OF THE BODY. 2. MILD CHRONIC DEGENERATIVE CHANGES DESCRIBED. NO SIGNIFICANT STENOSIS OR IMPINGEMENT. 3. HETEROGENOUS MASS IN THE RIGHT KIDNEY, NOT COMPLETELY IMAGED. Thoracic Spine MRI 10/10/19 06:22 IMPRESSION: NORMAL MRI THORACIC SPINE. NO EVIDENCE OF THORACIC VERTEBRAL METASTASIS. Chest X-Ray 10/16/19 10:42 IMPRESSION: Mild atelectasis at left lung base. Shoulder X-Ray 10/24/19 00:00 IMPRESSION: No acute or suspicious radiographic findings. Central Venous Line 10/26/19 00:00 IMPRESSION: IMAGE(S) OBTAINED DURING PROCEDURE.
[2019-10-30] MEDS: ACETAMINOPHEN 325 MG TABLET PO PRN ×2 (01:44→21:33)
[2019-10-30] MEDS: CLONIDINE HCL 0.1 MG TABLET PO SCH ×3 (05:06→21:33)
[2019-10-30] MEDS: DIPHENHYDRAMINE HCL 25 MG CAPSULE PO PRN (05:06)
--- NOTE | 2019-10-30 09:40 | PDOC PROGRESS REPORT ---
Subjective Progress Note for:: 10/30/19 Reason For Visit: RENAL MASS/ESRD/BACK PAIN Patient dialyzed yesterday's through left groin permacatheter. Parents were raised about removing all foreign body in the bloodstream given presence of chronic endocarditis. Physical Exam Vital Signs: Temp Pulse Resp BP Pulse Ox 98.1 F 59 L 18 128/70 H 98 10/30/19 07:49 10/30/19 07:49 10/30/19 07:49 10/30/19 07:49 10/30/19 07:49 Intake & Output 10/29/19 10/30/19 10/31/19 06:59 06:59 06:59 Intake Total 1005 1388 Output Total 1400 Balance 1005 -12 Weight 89.7 kg 89.6 kg Musculoskeletal exam: PRESENT: other - Left permacatheter in the groin in place Results Laboratory Results: 10/29/19 05:54 10/29/19 05:54 10/27/19 20:17 Blood Blood Culture (PCR) - Final Staphylococcus Aureus 10/28/19 10:10 Nasophary (Mrsa Only) MRSA Culture - Final MRSA RECOVERED 10/27/19 19:25 Blood Blood Culture (PCR) - Final Staphylococcus Aureus 10/09/19 10/09/19 23:16 23:16 Creatine Kinase 121 CK-MB (CK-2) 0.57 Troponin I 0.112 Impressions: Abdomen/Pelvis CT 10/10/19 00:00 IMPRESSION: Prominent axillary nodes. Not definitely pathologic. Indeterminate nodes in the mediastinum. Solid right renal mass measuring over 6 cm. Atrophic kidneys. Probable Schmorl's noted L1. Well-circumscribed along the superior endplate without extension into the pedicles. Chest CT 10/10/19 00:00 IMPRESSION: Prominent axillary nodes. Not definitely pathologic. Indeterminate nodes in the mediastinum. Solid right renal mass measuring over 6 cm. Atrophic kidneys. Probable Schmorl's noted L1. Well-circumscribed along the superior endplate without extension into the pedicles. Lumbar Spine CT 10/10/19 03:49 IMPRESSION: 1. Solid-appearing mass at the upper pole of the right kidney, which has increased in size compared to the prior study. This is most compatible with malignancy. Recommend correlation with clinical history. 2. New lytic lesion within the L1 vertebral body, suggesting metastatic disease. 3. No acute fracture. Lumbar Spine MRI 10/10/19 06:22 IMPRESSION: 1. HOMOGENEOUS ROUND LESION IN THE SUPERIOR BODY OF THE L1 VERTEBRAL BODY DESCRIBED. THIS IS CONCERNING FOR A METASTATIC LESION. AN ATYPICAL SCHMORL'S NODE COULD BE ANOTHER POSSIBILITY BUT LESS LIKELY. MAY CONSIDER BONE SCAN TO EVALUATE THE FINDING IN THE L1 VERTEBRAL BODY AND TO DETERMINE IF THERE ARE ANY OTHER SKELETAL LESIONS IN THE REMAINDER OF THE BODY. 2. MILD CHRONIC DEGENERATIVE CHANGES DESCRIBED. NO SIGNIFICANT STENOSIS OR IMPINGEMENT. 3. HETEROGENOUS MASS IN THE RIGHT KIDNEY, NOT COMPLETELY IMAGED. Thoracic Spine MRI 10/10/19 06:22 IMPRESSION: NORMAL MRI THORACIC SPINE. NO EVIDENCE OF THORACIC VERTEBRAL METASTASIS. Chest X-Ray 10/16/19 10:42 IMPRESSION: Mild atelectasis at left lung base. Shoulder X-Ray 10/24/19 00:00 IMPRESSION: No acute or suspicious radiographic findings. Central Venous Line 10/26/19 00:00 IMPRESSION: IMAGE(S) OBTAINED DURING PROCEDURE. Assessment & Plan - Diagnosis (1) Endocarditis due to methicillin susceptible Staphylococcus aureus (MSSA) Is this a current diagnosis for this admission?: Yes Plan: Impression and discussion: 58-year-old the bound male with multiple hemodialysis access catheters, last inserted October 26, left groin, permacatheter, currently functioning satis factorily. I discussed this patient with Dr. Natalie Topete. He suggested leaving the permacatheter in at this time. Patient has no upper extremity or neck veins suitable for cannulation. Temporary catheter was recently removed from the right groin. Consensus recommendation is to continue antimicrobial therapy and leave catheter in position. (2) Aortic valve regurgitation Qualifiers: Cardiac valve disease etiology: nonrheumatic Qualified Code(s): I35.1 - Nonrheumatic aortic (valve) insufficiency Is this a current diagnosis for this admission?: Yes - Time Time Spent: 30 to 50 Minutes Critical Time spent with patient: Less than 15 minutes
[2019-10-30] MEDS ORDERED: DIAZEPAM 5 MG TABLET PO PRN (09:53)
--- NOTE | 2019-10-30 10:08 | PDOC PROGRESS REPORT ---
Subjective Progress Note for:: 10/30/19 Subjective:: Patient is currently doing fair sitting in the chair Denied any chest pain denied any shortness of the breath As per discussed with the surgery about removal of the catheter surgeon discussed with the vascular surgeon and suggest that currently hold it because of the patient have a hard time to get the access for the dialysis will continues the antibiotic for the nephrology again discussed with the Friday to regroup the team for further plan Reason For Visit: RENAL MASS/ESRD/BACK PAIN Physical Exam Vital Signs: Temp Pulse Resp BP Pulse Ox 98.1 F 59 L 18 128/70 H 98 10/30/19 07:49 10/30/19 07:49 10/30/19 07:49 10/30/19 07:49 10/30/19 07:49 Intake & Output 10/29/19 10/30/19 10/31/19 06:59 06:59 06:59 Intake Total 1005 1388 Output Total 1400 Balance 1005 -12 Weight 89.7 kg 89.6 kg General appearance: PRESENT: no acute distress, well-developed, well-nourished Head exam: PRESENT: atraumatic, normocephalic Eye exam: PRESENT: conjunctiva pink, EOMI, PERRLA. ABSENT: scleral icterus Ear exam: PRESENT: normal external ear exam Mouth exam: PRESENT: moist, tongue midline Neck exam: PRESENT: full ROM. ABSENT: carotid bruit, JVD, lymphadenopathy, thyromegaly Respiratory exam: PRESENT: clear to auscultation dave Cardiovascular exam: PRESENT: RRR. ABSENT: diastolic murmur, rubs, systolic murmur Pulses: PRESENT: normal dorsalis pedis pul, +2 pedal pulses bilateral Vascular exam: PRESENT: normal capillary refill GI/Abdominal exam: PRESENT: normal bowel sounds, soft. ABSENT: distended, guarding, mass, organolmegaly, rebound, tenderness Rectal exam: PRESENT: deferred Neurological exam: PRESENT: alert, awake, oriented to person, oriented to place, oriented to time, oriented to situation, CN II-XII grossly intact. ABSENT: motor sensory deficit Psychiatric exam: PRESENT: appropriate affect, normal mood. ABSENT: homicidal ideation, suicidal ideation Skin exam: PRESENT: dry, intact, warm. ABSENT: cyanosis, rash Results Laboratory Results: 10/29/19 05:54 10/29/19 05:54 10/27/19 20:17 Blood Blood Culture (PCR) - Final Staphylococcus Aureus 10/28/19 10:10 Nasophary (Mrsa Only) MRSA Culture - Final MRSA RECOVERED 10/27/19 19:25 Blood Blood Culture (PCR) - Final Staphylococcus Aureus 10/09/19 10/09/19 23:16 23:16 Creatine Kinase 121 CK-MB (CK-2) 0.57 Troponin I 0.112 Impressions: Abdomen/Pelvis CT 10/10/19 00:00 IMPRESSION: Prominent axillary nodes. Not definitely pathologic. Indeterminate nodes in the mediastinum. Solid right renal mass measuring over 6 cm. Atrophic kidneys. Probable Schmorl's noted L1. Well-circumscribed along the superior endplate without extension into the pedicles. Chest CT 10/10/19 00:00 IMPRESSION: Prominent axillary nodes. Not definitely pathologic. Indeterminate nodes in the mediastinum. Solid right renal mass measuring over 6 cm. Atrophic kidneys. Probable Schmorl's noted L1. Well-circumscribed along the superior endplate without extension into the pedicles. Lumbar Spine CT 10/10/19 03:49 IMPRESSION: 1. Solid-appearing mass at the upper pole of the right kidney, which has increased in size compared to the prior study. This is most compatible with malignancy. Recommend correlation with clinical history. 2. New lytic lesion within the L1 vertebral body, suggesting metastatic disease. 3. No acute fracture. Lumbar Spine MRI 10/10/19 06:22 IMPRESSION: 1. HOMOGENEOUS ROUND LESION IN THE SUPERIOR BODY OF THE L1 VERTEBRAL BODY DESCRIBED. THIS IS CONCERNING FOR A METASTATIC LESION. AN ATYPICAL SCHMORL'S NODE COULD BE ANOTHER POSSIBILITY BUT LESS LIKELY. MAY CONSIDER BONE SCAN TO EVALUATE THE FINDING IN THE L1 VERTEBRAL BODY AND TO DETERMINE IF THERE ARE ANY OTHER SKELETAL LESIONS IN THE REMAINDER OF THE BODY. 2. MILD CHRONIC DEGENERATIVE CHANGES DESCRIBED. NO SIGNIFICANT STENOSIS OR IMPINGEMENT. 3. HETEROGENOUS MASS IN THE RIGHT KIDNEY, NOT COMPLETELY IMAGED. Thoracic Spine MRI 10/10/19 06:22 IMPRESSION: NORMAL MRI THORACIC SPINE. NO EVIDENCE OF THORACIC VERTEBRAL METASTASIS. Chest X-Ray 10/16/19 10:42 IMPRESSION: Mild atelectasis at left lung base. Shoulder X-Ray 10/24/19 00:00 IMPRESSION: No acute or suspicious radiographic findings. Central Venous Line 10/26/19 00:00 IMPRESSION: IMAGE(S) OBTAINED DURING PROCEDURE. Assessment & Plan - Diagnosis (1) Lower back pain Qualifiers: Chronicity: acute Back pain laterality: bilateral Sciatica presence: without sciatica Qualified Code(s): M54.5 - Low back pain Is this a current diagnosis for this admission?: Yes (2) Lytic lesion of bone on x-ray Is this a current diagnosis for this admission?: Yes (3) Renal mass, right Is this a current diagnosis for this admission?: Yes (4) Atrial flutter Qualifiers: Atrial flutter type: typical Qualified Code(s): I48.3 - Typical atrial flutter Is this a current diagnosis for this admission?: Yes (5) Chronic obstructive pulmonary disease Qualifiers: COPD type: COPD with acute exacerbation Qualified Code(s): J44.1 - Chronic obstructive pulmonary disease with (acute) exacerbation Is this a current diagnosis for this admission?: Yes (6) End-stage renal disease on hemodialysis Is this a current diagnosis for this admission?: Yes (7) Hyperkalemia Is this a current diagnosis for this admission?: Yes (8) Sleep-disordered breathing Is this a current diagnosis for this admission?: Yes (9) MRSA (methicillin resistant Staphylococcus aureus) septicemia Is this a current diagnosis for this admission?: Yes Plan: I think the patient have a difficult to remove the catheter will continues the a ntibiotics I think need to be discussed again with the ID and nephrology to further evaluations (10) Neoplasm of uncertain behavior of right kidney Is this a current diagnosis for this admission?: Yes - Time Time Spent with patient: 15-24 minutes Level of Care: IMCU Medications reviewed and adjusted accordingly: Yes Anticipated discharge: Other Within: Other - Plan Summary Plan Summary: to current medications discussed with the surgery Dr. Choi will discuss with the nephrology and Dr. Moseley on a Friday
[2019-10-30] MEDS: DOCUSATE SODIUM 100 MG CAPSULE PO SCH (10:35)
[2019-10-30] MEDS: AMIODARONE HCL 200 MG TABLET PO SCH (10:35)
[2019-10-30] MEDS: PATIROMER 8.4 GM SUSP PACKET PO SCH (17:32)
--- NOTE | 2019-10-30 17:35 | Progress Note ---
Provider Note Provider Note: CARDIOLOGY PROGRESS NOTE by Dr. Amanda Dumont on 10/30/2019. OBJECTIVE: The patient denies any chest pain or discomfort. There is no shortness of breath. There is no PND orthopnea or leg edema. The patient at present is undergoing dialysis via left temporary permacath which was placed recently. Patient remains afebrile. There is no recurrence of atrial flutter. There is no ventricular arrhythmia seen on the monitor. The plan is since there is no access for dialysis to keep the permacath and continue antibiotics PHYSICAL EXAMINATION: The patient appears to be mildly obese. He is appears to be chronically ill, but in no acute distress. Selected Entries 10/30/19 11:02 Temperature 98.0 F Temperature Oral Source Pulse Rate 65 Respiratory 18 Rate Blood Pressure 132/65 H Blood Pressure 87 Mean BP Location Left Arm BP Position Supine O2 Sat by Pulse 100 Oximetry Oxygen Delivery Room Air Method HEAD: Is atraumatic and normocephalic. EYES: Pupils are equal round regular reactive to light accommodation. External ocular movements are normal. There is no conjunctival pallor. There is no scleral icterus. EARS: Tympanic membranes are intact. External auditory canals are clear. NOSE: There is no deviated nasal septum. There is no inflammation of the nasal mucous membrane. MOUTH: Mucous membranes of mouth are moist. Tongue is moist. There is no ulcers in the mouth. There is no bleeding from the gums. THROAT: There is no redness of the oropharynx. There is no exudates. SKIN: There is no skin rashes. There is no petechia or ecchymosis. There is no skin lesions. NECK: Is supple. There is no JVD. Carotids equal there is no bruit. There is no lymphadenopathy. Trachea central. LUNGS: Lungs are clear to auscultation percussion, without any rhonchi rales or wheezing. THERE IS NO CHEST WALL TENDERNESS. Heart: S1, S2 heard normally. There is no S3 gallop. There is no S4 gallop. There is systolic murmur left sternal border and apex. Murmur of mitral regurgitation heard. . There is no rub. ABDOMEN: Soft. Nontender. There is no hepatosplenomegaly. All sounds are well heard. There is no tender areas of masses. EXTREMITIES: Femorals are diminished. There is no femoral bruits. Leg pulses are diminished. There is no pedal edema. There is diffuse swelling of the right upper extremity. There is no DVT or cellulitis. There is no cyanosis or clubbing. There is no calf tenderness. NETWORKS SOFTWARE CONSULTANT: The patient is co nscious awake drowsy, but with with no focal deficits. PSYCHIATRIC: The patient is not agitated or anxious. Abdomen/Pelvis CT 10/10/19 00:00 IMPRESSION: Prominent axillary nodes. Not definitely pathologic. Indeterminate nodes in the mediastinum. Solid right renal mass measuring over 6 cm. Atrophic kidneys. Probable Schmorl's noted L1. Well-circumscribed along the superior endplate without extension into the pedicles. Chest CT 10/10/19 00:00 IMPRESSION: Prominent axillary nodes. Not definitely pathologic. Indeterminate nodes in the mediastinum. Solid right renal mass measuring over 6 cm. Atrophic kidneys. Probable Schmorl's noted L1. Well-circumscribed along the superior endplate without extension into the pedicles. Lumbar Spine CT 10/10/19 03:49 IMPRESSION: 1. Solid-appearing mass at the upper pole of the right kidney, which has increased in size compared to the prior study. This is most compatible with malignancy. Recommend correlation with clinical history. 2. New lytic lesion within the L1 vertebral body, suggesting metastatic disease. 3. No acute fracture. Lumbar Spine MRI 10/10/19 06:22 IMPRESSION: 1. HOMOGENEOUS ROUND LESION IN THE SUPERIOR BODY OF THE L1 VERTEBRAL BODY DESCRIBED. THIS IS CONCERNING FOR A METASTATIC LESION. AN ATYPICAL SCHMORL'S NODE COULD BE ANOTHER POSSIBILITY BUT LESS LIKELY. MAY CONSIDER BONE SCAN TO EVALUATE THE FINDING IN THE L1 VERTEBRAL BODY AND TO DETERMINE IF THERE ARE ANY OTHER SKELETAL LESIONS IN THE REMAINDER OF THE BODY. 2. MILD CHRONIC DEGENERATIVE CHANGES DESCRIBED. NO SIGNIFICANT STENOSIS OR IMPINGEMENT. 3. HETEROGENOUS MASS IN THE RIGHT KIDNEY, NOT COMPLETELY IMAGED. Thoracic Spine MRI 10/10/19 06:22 IMPRESSION: NORMAL MRI THORACIC SPINE. NO EVIDENCE OF THORACIC VERTEBRAL METASTASIS. Chest X-Ray 10/16/19 10:42 IMPRESSION: Mild atelectasis at left lung base. Shoulder X-Ray 10/24/19 00:00 IMPRESSION: No acute or suspicious radiographic findings. Central Venous Line 10/26/19 00:00 IMPRESSION: IMAGE(S) OBTAINED DURING PROCEDURE. IMPRESSION/RECOMMENDATION: 1. 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 Patient for dialysis of the right leg lesion. Hence the patient's Eliquis has been discontinued. Most likely will have the biopsy as an outpatient. 2. Recent recurrent atrial flutter with rapid ventricular response. Patient back to sinus rhythm post IV amiodarone drip which is been discontinued. Will decrease the patient's amiodarone to 200 mg p.o. once daily. Patient has history of proximal small atrial flutter. We will cut back the patient's amiodarone to 200 mg once a day. 3. Hyperkalemia in a patient with end-stage renal disease. The patient is getting dialyzed. 4. . History of congestive heart failure secondary to volume overload during prior admission. At present compensated. 5. Hypertension: At present uncontrolled continue current medications. I ncrease the patient's clonidine to 0.1 mg p.o. every 8 hours. 6. END STAGE RENAL DISEASE: On hemodialysis. 7. History of hyperlipidemia. Continue statins 8. Murmur of mitral regurgitation: Mild mitral regurgitation by echocardiography. 9. Hyperkalemia: Nephrology on the case. 10. Moderate pulmonary hypertension. 11. 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 Clinically and by [place] no significant mitral regurgitation. Continue antibiotics. Medications reviewed. Medical regimen and management plan discussed with the attending physician. Medical decision making is a moderate complexity. Will follow.
[2019-10-30] MEDS: FAMOTIDINE 20 MG TABLET PO SCH (21:33)
[2019-10-31] MEDS: CLONIDINE HCL 0.1 MG TABLET PO SCH ×3 (05:55→21:30)
[2019-10-31] MEDS ORDERED: DIAZEPAM 5 MG TABLET PO PRN (08:08)
--- NOTE | 2019-10-31 09:52 | PDOC PROGRESS REPORT ---
Subjective Progress Note for:: 10/31/19 Subjective:: Patient with persistent positive culture with MRSA currently on IV vancomycin Patient's denied any fever no chills I think tomorrow is will talk to Dr. Hannon and further reconsult the ID and surgery to reevaluate the dialysis catheter issues to remove because of persistent MRSA Reason For Visit: RENAL MASS/ESRD/BACK PAIN Physical Exam Vital Signs: Temp Pulse Resp BP Pulse Ox 98.2 F 63 18 127/68 H 100 10/31/19 08:51 10/31/19 08:51 10/31/19 08:51 10/31/19 08:51 10/31/19 08:51 Intake & Output 10/30/19 10/31/19 11/01/19 06:59 06:59 06:59 Intake Total 1388 1002 Output Total 1400 0 Balance -12 1002 Weight 89.6 kg General appearance: PRESENT: no acute distress, well-developed, well-nourished Head exam: PRESENT: atraumatic, normocephalic Eye exam: PRESENT: conjunctiva pink, EOMI, PERRLA. ABSENT: scleral icterus Ear exam: PRESENT: normal external ear exam Mouth exam: PRESENT: moist, tongue midline Neck exam: PRESENT: full ROM. ABSENT: carotid bruit, JVD, lymphadenopathy, thyromegaly Respiratory exam: PRESENT: clear to auscultation dave Cardiovascular exam: PRESENT: RRR. ABSENT: diastolic murmur, rubs, systolic murmur Vascular exam: PRESENT: normal capillary refill GI/Abdominal exam: PRESENT: normal bowel sounds, soft. ABSENT: distended, guarding, mass, organolmegaly, rebound, tenderness Rectal exam: PRESENT: deferred Neurological exam: PRESENT: alert, awake, oriented to person, oriented to place, oriented to time, oriented to situation, CN II-XII grossly intact. ABSENT: motor sensory deficit Psychiatric exam: PRESENT: appropriate affect, normal mood. ABSENT: homicidal ideation, suicidal ideation Skin exam: PRESENT: dry, intact, warm. ABSENT: cyanosis, rash Results Laboratory Results: 10/29/19 05:54 10/29/19 05:54 10/27/19 19:25 Blood Blood Culture (PCR) - Final Staphylococcus Aureus 10/27/19 19:25 Blood Blood Culture - Final Mrsa (Meth Resis Staph Aureus) 10/27/19 20:17 Blood Blood Culture (PCR) - Final Staphylococcus Aureus 10/27/19 20:17 Blood Blood Culture - Final Mrsa (Meth Resis Staph Aureus) 10/09/19 10/09/19 23:16 23:16 Creatine Kinase 121 CK-MB (CK-2) 0.57 Troponin I 0.112 Impressions: Abdomen/Pelvis CT 10/10/19 00:00 IMPRESSION: Prominent axillary nodes. Not definitely pathologic. Indeterminate nodes in the mediastinum. Solid right renal mass measuring over 6 cm. Atrophic kidneys. Probable Schmorl's noted L1. Well-circumscribed along the superior endplate without extension into the pedicles. Chest CT 10/10/19 00:00 IMPRESSION: Prominent axillary nodes. Not definitely pathologic. Indeterminate nodes in the mediastinum. Solid right renal mass measuring over 6 cm. Atrophic kidneys. Probable Schmorl's noted L1. Well-circumscribed along the superior endplate without extension into the pedicles. Lumbar Spine CT 10/10/19 03:49 IMPRESSION: 1. Solid-appearing mass at the upper pole of the right kidney, which has increased in size compared to the prior study. This is most compatible with malignancy. Recommend correlation with clinical history. 2. New lytic lesion within the L1 vertebral body, suggesting metastatic disease. 3. No acute fracture. Lumbar Spine MRI 10/10/19 06:22 IMPRESSION: 1. HOMOGENEOUS ROUND LESION IN THE SUPERIOR BODY OF THE L1 VERTEBRAL BODY DESCRIBED. THIS IS CONCERNING FOR A METASTATIC LESION. AN ATYPICAL SCHMORL'S NODE COULD BE ANOTHER POSSIBILITY BUT LESS LIKELY. MAY CONSIDER BONE SCAN TO EVALUATE THE FINDING IN THE L1 VERTEBRAL BODY AND TO DETERMINE IF THERE ARE ANY OTHER SKELETAL LESIONS IN THE REMAINDER OF THE BODY. 2. MILD CHRONIC DEGENERATIVE CHANGES DESCRIBED. NO SIGNIFICANT STENOSIS OR IMPINGEMENT. 3. HETEROGENOUS MASS IN THE RIGHT KIDNEY, NOT COMPLETELY IMAGED. Thoracic Spine MRI 10/10/19 06:22 IMPRESSION: NORMAL MRI THORACIC SPINE. NO EVIDENCE OF THORACIC VERTEBRAL METASTASIS. Chest X-Ray 10/16/19 10:42 IMPRESSION: Mild atelectasis at left lung base. Shoulder X-Ray 10/24/19 00:00 IMPRESSION: No acute or suspicious radiographic findings. Central Venous Line 10/26/19 00:00 IMPRESSION: IMAGE(S) OBTAINED DURING PROCEDURE. Assessment & Plan - Diagnosis (1) Lower back pain Qualifiers: Chronicity: acute Back pain laterality: bilateral Sciatica presence: without sciatica Qualified Code(s): M54.5 - Low back pain Is this a current diagnosis for this admission?: Yes (2) Lytic lesion of bone on x-ray Is this a current diagnosis for this admission?: Yes (3) Renal mass, right Is this a current diagnosis for this admission?: Yes (4) Atrial flutter Qualifiers: Atrial flutter type: typical Qualified Code(s): I48.3 - Typical atrial flutter Is this a current diagnosis for this admission?: Yes (5) Chronic obstructive pulmonary disease Qualifiers: COPD type: COPD with acute exacerbation Qualified Code(s): J44.1 - Chronic obstructive pulmonary disease with (acute) exacerbation Is this a current diagnosis for this admission?: Yes (6) End-stage renal disease on hemodialysis Is this a current diagnosis for this admission?: Yes (7) Hyperkalemia Is this a current diagnosis for this admission?: Yes (8) Sleep-disordered breathing Is this a current diagnosis for this admission?: Yes (9) MRSA (methicillin resistant Staphylococcus aureus) septicemia Is this a current diagnosis for this admission?: Yes (10) Neoplasm of uncertain behavior of right kidney Is this a current diagnosis for this admission?: Yes - Time Time Spent with patient: 15-24 minutes Level of Care: IMCU Medications reviewed and adjusted accordingly: Yes Anticipated discharge: Other Within: Other - Plan Summary Plan Summary: Patient's issue with the dialysis wants to remove the dialysis catheter there is no access according to the surgery continues IV vancomycin reconsult the ID
[2019-10-31] MEDS: AMIODARONE HCL 200 MG TABLET PO SCH (11:12)
[2019-10-31] MEDS: ACETAMINOPHEN 325 MG TABLET PO PRN ×2 (11:12→21:30)
[2019-10-31] MEDS: DOCUSATE SODIUM 100 MG CAPSULE PO SCH (11:12)
--- NOTE | 2019-10-31 12:22 | RADIOLOGY REPORT (SQ) ---
EXAM DESCRIPTION: MRI CERVICAL SPINE WITHOUT COMPLETED DATE/TIME: 10/31/2019 10:21 am REASON FOR STUDY: suspect discitis COMPARISON: None. TECHNIQUE: Sagittal and Axial imaging includes T1, T2, STIR and gradient echo sequences. LIMITATIONS: None. FINDINGS: ALIGNMENT: Anatomic VERTEBRAE: No obvious fracture. BONE MARROW: There is diffuse signal alteration in the odontoid extending into the body of C2. Nonsp ecific. Could be related to U trauma, inflammation, tumor, synovitis. Focal signal alteration also noted superior posterior endplate of C4 DISCS: Normal. No significant abnormal signal or loss of height. HARDWARE: CORD AND BASE OF BRAIN: Normal in size and signal intensity. SOFT TISSUES: No soft tissue masses. C1-C2: No significant spinal stenosis. C2-C3: Focal central disc protrusion with mild flattening of the anterior thecal sac. C3-C4: Diffuse disc osteophyte complex/fluid collection contained by the posterior longitudinal ligam ent. Flattening of the anterior thecal sac. C4-C5: No significant spinal stenosis or exit foraminal stenosis. C5-C6: Disc osteophyte complex with mild narrowing of the exit foramina. C6-C7: No significant spinal stenosis or exit foraminal stenosis. C7-T1: No significant spinal stenosis or exit foraminal stenosis. UPPER THORACIC: Incompletely imaged. No significant spinal stenosis or exit foraminal stenosis. OTHER: No other significant finding. IMPRESSION: Worrisome findings at C1-2 and C3-4. Possible infection, tumor. Some edema and fragmen tation without significant cord compression. COMMENT: Recommend CT of the cervical spine to assess bony structures. Also recommend MRI of the ce rvical spine with contrast to assess possible soft tissue inflammation. The findings were sent to the [facility]iology [facility] at 12:16 on 10/31/2019 to be com municated to a licensed caregiver. TECHNICAL DOCUMENTATION: JOB ID: [id number] 2010 [employer]- All Rights Reserved Reading location - IP/workstation name: [email or web address]
--- NOTE | 2019-10-31 13:09 | Progress Note ---
Provider Note Provider Note: CARDIOLOGY PROGRESS NOTE by Dr. Amanda Dumont on 10/31/2019. SUBJECTIVE: Patient remains status quo. He denies any chest pain or discomfort. There is no shortness of breath. There is no PND orthopnea. There is no arrhythmia seen on the monitor. There is no recurrence of atrial flutter. There is no TIA CVA symptoms. The patient remains afebrile. PHYSICAL EXAMINATION: The patient is mildly obese but appears to be chronically ill. But in no acute distress. Selected Entries 10/31/19 08:51 Temperature 98.2 F Temperature Oral Source Pulse Rate 63 Respiratory 18 Rate Blood Pressure 127/68 H Blood Pressure 87 Mean BP Location Left Arm BP Position Sitting O2 Sat by Pulse 100 Oximetry Oxygen Delivery Room Air Method HEAD: Is atraumatic and normocephalic. EYES: Pupils are equal round regular reactive to light accommodation. External ocular movements are normal. There is no conjunctival pallor. There is no scleral icterus. EARS: Tympanic membranes are intact. External auditory canals are clear. NOSE: There is no deviated nasal septum. There is no inflammation of the nasal mucous membrane. MOUTH: Mucous membranes of mouth are moist. Tongue is moist. There is no ulcers in the mouth. There is no bleeding from the gums. THROAT: There is no redness of the oropharynx. There is no exudates. SKIN: There is no skin rashes. There is no petechia or ecchymosis. There is no skin lesions. NECK: Is supple. There is no JVD. Carotids equal there is no bruit. There is no lymphadenopathy. Trachea central. LUNGS: Lungs are clear to auscultation percussion, without any rhonchi rales or wheezing. THERE IS NO CHEST WALL TENDERNESS. Heart: S1, S2 heard normally. There is no S3 gallop. There is no S4 gallop. There is systolic murmur left sternal border and apex. Murmur of mitral regurgitation heard. . There is no rub. ABDOMEN: Soft. Nontender. There is no hepatosplenomegaly. All sounds are well heard. There is no tender areas of masses. EXTREMITIES: Femorals are diminished. There is no femoral bruits. Leg pulses are diminished. There is no pedal edema. There is diffuse swelling of the right upper extremity. There is no DVT or cellulitis. There is no cyanosis or clubbing. There is no calf tenderness. 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 PSYCHIATRIC: The patient is not agitated or anxious. IMPRESSION/RECOMMENDATION: 1. 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 Patient for dialysis of the right leg lesion. Hence the patient's Eliquis has been discontinued. Most likely will have the biopsy as an outpatient. 2. Recent recurrent atrial flutter with rapid ventricular response. Patient back to sinus rhythm post IV amiodarone drip which is been discontinued. Will decrease the patient's amiodarone to 200 mg p.o. once daily. Patient has history of proximal small atrial flutter. We will cut back the patient's amiodarone to 200 mg once a day. 3. Hyperkalemia in a patient with end-stage renal disease. The patient is getting dialyzed. 4. . History of congestive heart failure secondary to volume overload during prior admission. At present compensated. 5. Hypertension: At present uncontrolled continue current medications. Increase the patient's clonidine to 0.1 mg p.o. every 8 hours. 6. END STAGE RENAL DISEASE: On hemodialysis. 7. History of hyperlipidemia. Continue statins 8. Murmur of mitral regurgitation: Mild mitral regurgitation by echocardiography. 9. Hyperkalemia: Nephrology on the case. 10. Moderate pulmonary hypertension. 11. 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 Clinically and by [place] no significant mitral regurgitation. Continue antibiotics. Medications reviewed. Medical regimen and management plan discussed with Dr. Garcia covering for Dr. Hannon. Medical decision making is a moderate complexity. 40 minutes spent as patient more than 50% of time spent in direct patient care. Will follow.
[2019-10-31] MEDS: PATIROMER 8.4 GM SUSP PACKET PO SCH (17:53)
[2019-10-31] MEDS: FAMOTIDINE 20 MG TABLET PO SCH (21:30)
[2019-11-01] MEDS: CLONIDINE HCL 0.1 MG TABLET PO SCH ×3 (05:49→21:46)
[2019-11-01] MEDS: ACETAMINOPHEN 325 MG TABLET PO PRN (05:50)
[2019-11-01 07:19] LABS: ABSOLUTE BASOPHILS # (AUTO) 0.1 10^3/uL (0.0-0.2); ABSOLUTE EOSINOPHILS # (AUTO) 0.1 10^3/uL (0.0-0.6); ABSOLUTE LYMPHOCYTES (AUTO) 0.7 10^3/uL (0.5-4.7); ABSOLUTE MONOCYTES (AUTO) 0.8 10^3/uL (0.1-1.4); ABSOLUTE NEUT (AUTO) 7.2 10^3/uL (1.7-8.2); BASOPHILS % (AUTO) 0.8 % (0-2); EOSINOPHILS % (AUTO) 0.9 % (0-6); HEMATOCRIT 25.7 % (37.9-51.0); HEMOGLOBIN 8.8 g/dL (13.5-17.0); LYMPHOCYTES % (AUTO) 8.2 % (13-45); MEAN CORPUSCULAR HEMOGLOBIN 29.8 pg (27.0-33.4); MEAN CORPUSCULAR HGB CONC 34.4 g/dL (32.0-36.0); MEAN CORPUSCULAR VOLUME 87 fl (80-97); MONOCYTES % (AUTO) 8.8 % (3-13); PLATELET COUNT 328 10^3/uL (150-450); RED BLOOD COUNT 2.97 10^6/uL (4.35-5.55); RED CELL DISTRIBUTION WIDTH 15.1 % (11.5-14.0); SEGMENTED NEUTROPHILS % (AUTO) 81.3 % (42-78); TOTAL CELLS COUNTED % (AUTO) 100 %; WHITE BLOOD COUNT 8.9 10^3/uL (4.0-10.5)
[2019-11-01 07:48] LABS: ANION GAP 19 (5-19); BLOOD UREA NITROGEN 87 mg/dL (7-20); CALCIUM 8.8 mg/dL (8.4-10.2); CARBON DIOXIDE 18 mmol/L (22-30); CHLORIDE 90 mmol/L (98-107); GLUCOSE 103 mg/dL (75-110); POTASSIUM 5.6 mmol/L (3.6-5.0)
[2019-11-01] MEDS ORDERED: HEPARIN SOD (PORCINE) 1,000 UNIT/ML 10 ML VIAL IV PRN (08:38)
[2019-11-01] MEDS ORDERED: EPOETIN ALFA-EPBX 20,000 UNIT in SYRINGE, DISPOSABLE, 1 EACH IV PRN (08:38)
[2019-11-01] MEDS: AMIODARONE HCL 200 MG TABLET PO SCH (09:22)
[2019-11-01] MEDS: DOCUSATE SODIUM 100 MG CAPSULE PO SCH (09:36)
[2019-11-01] MEDS: PATIROMER 8.4 GM SUSP PACKET PO SCH (17:03)
[2019-11-01] MEDS: VANCOMYCIN HCL 400 MG in DEXTROSE 5%-WATER 100 ML IV SCH (17:38)
--- NOTE | 2019-11-01 20:34 | PDOC PROGRESS REPORT ---
Subjective Progress Note for:: 11/01/19 Subjective:: I saw patient by the bedside, he complained of neck pain, MRI of the cervical spine was obtained for evaluation of neck pain, the MRI demonstrated diffuse disc osteophyte complex/fluid collection contained by the posterior longitudinal ligaments. Flattening of the anterior thecal sac. The challenge for this patient at this time is the persistent MRSA bacteremia, unfortunately he has end-stage renal disease on hemodialysis, ID recommended that all catheter should be discontinued because of the persistent MRSA bacteremia, the surgeon, vascular surgery, was not particularly in agreement with the removal of the PermCath for dialysis in his groin because of the difficulty of IV access for dialysis in this patient. He also have MRSA mitral valve endocarditis and possible septic embolization to the disc at C3-C4 which correlate with his neck pain. I discuss ed all these findings with the patient today if we need to continue intravenous vancomycin for at least 6 weeks I will call [facility] on Friday to discuss his case with the [place] team and hopefully ask for transfer to [place] Reason For Visit: RENAL MASS/ESRD/BACK PAIN Physical Exam Vital Signs: Temp Pulse Resp BP Pulse Ox 97.5 F 79 16 138/91 H 100 11/01/19 16:30 11/01/19 16:30 11/01/19 16:30 11/01/19 16:30 11/01/19 16:30 Intake & Output 10/31/19 11/01/19 11/02/19 06:59 06:59 06:59 Intake Total 1002 990 720 Output Total 0 0 400 Balance 1002 990 320 Weight 89.6 kg 89.6 kg General appearance: PRESENT: no acute distress Eye exam: PRESENT: PERRLA Respiratory exam: PRESENT: clear to auscultation dave Cardiovascular exam: PRESENT: +S1, +S2, systolic murmur GI/Abdominal exam: PRESENT: soft Neurological exam: PRESENT: alert Results Laboratory Results: 11/01/19 06:10 11/01/19 06:10 11/01/19 11/01/19 06:10 06:10 WBC 8.9 RBC 2.97 L Hgb 8.8 L Hct 25.7 L MCV 87 MCH 29.8 MCHC 34.4 RDW 15.1 H Plt Count 328 Seg Neutrophils % 81.3 H Sodium 127.1 L Potassium 5.6 H Chloride 90 L Carbon Dioxide 18 L Anion Gap 19 BUN 87 H Creatinine 11.89 H Est GFR ( Amer) 5 L Glucose 103 Calcium 8.8 10/09/19 10/09/19 23:16 23:16 Creatine Kinase 121 CK-MB (CK-2) 0.57 Troponin I 0.112 Impressions: Abdomen/Pelvis CT 10/10/19 00:00 IMPRESSION: Prominent axillary nodes. Not definitely pathologic. Indeterminate nodes in the mediastinum. Solid right renal mass measuring over 6 cm. Atrophic kidneys. Probable Schmorl's noted L1. Well-circumscribed along the superior endplate without extension into the pedicles. Chest CT 10/10/19 00:00 IMPRESSION: Prominent axillary nodes. Not definitely pathologic. Indeterminate nodes in the mediastinum. Solid right renal mass measuring over 6 cm. Atrophic kidneys. Probable Schmorl's noted L1. Well-circumscribed along the superior endplate without extension into the pedicles. Lumbar Spine CT 10/10/19 03:49 IMPRESSION: 1. Solid-appearing mass at the upper pole of the right kidney, which has increased in size compared to the prior study. This is most compatible with malignancy. Recommend correlation with clinical history. 2. New lytic lesion within the L1 vertebral body, suggesting metastatic disease. 3. No acute fracture. Lumbar Spine MRI 10/10/19 06:22 IMPRESSION: 1. HOMOGENEOUS ROUND LESION IN THE SUPERIOR BODY OF THE L1 VERTEBRAL BODY DESCRIBED. THIS IS CONCERNING FOR A METASTATIC LESION. AN ATYPICAL SCHMORL'S NODE COULD BE ANOTHER POSSIBILITY BUT LESS LIKELY. MAY CONSIDER BONE SCAN TO EVALUATE THE FINDING IN THE L1 VERTEBRAL BODY AND TO DETERMINE IF THERE ARE ANY OTHER SKELETAL LESIONS IN THE REMAINDER OF THE BODY. 2. MILD CHRONIC DEGENERATIVE CHANGES DESCRIBED. NO SIGNIFICANT STENOSIS OR IMPINGEMENT. 3. HETEROGENOUS MASS IN THE RIGHT KIDNEY, NOT COMPLETELY IMAGED. Thoracic Spine MRI 10/10/19 06:22 IMPRESSION: NORMAL MRI THORACIC SPINE. NO EVIDENCE OF THORACIC VERTEBRAL METASTASIS. Chest X-Ray 10/16/19 10:42 IMPRESSION: Mild atelectasis at left lung base. Shoulder X-Ray 10/24/19 00:00 IMPRESSION: No acute or suspicious radiographic findings. Central Venous Line 10/26/19 00:00 IMPRESSION: IMAGE(S) OBTAINED DURING PROCEDURE. Cervical Spine MRI 10/31/19 00:00 IMPRESSION: Worrisome findings at C1-2 and C3-4. Possible infection, tumor. Some edema and fragmentation without significant cord compression. 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 Is this a current diagnosis for this admission?: Yes (3) End stage renal disease on dialysis Is this a current diagnosis for this admission?: Yes (4) Lytic lesion of bone on x-ray Is this a current diagnosis for this admission?: Yes (5) Atrial flutter Qualifiers: Atrial flutter type: typical Qualified Code(s): I48.3 - Typical atrial flutter Is this a current diagnosis for this admission?: Yes (6) Metabolic encephalopathy Is this a current diagnosis for this admission?: Yes (7) Aortic valve regurgitation Qualifiers: Cardiac valve disease etiology: nonrheumatic Qualified Code(s): I35.1 - Nonrheumatic aortic (valve) insufficiency Is this a current diagnosis for this admission?: Yes (8) Endocarditis of mitral valve Is this a current diagnosis for this admission?: Yes (9) Discitis of cervical region Is this a current diagnosis for this admission?: Yes Plan: Morphine for pain control - Time Time Spent with patient: 35 or more minutes Level of Care: IMCU
[2019-11-01] MEDS: MORPHINE SULFATE 10 MG/ML INJ IV PRN (21:46)
[2019-11-01] MEDS: FAMOTIDINE 20 MG TABLET PO SCH (21:46)
[2019-11-02] MEDS: MORPHINE SULFATE 10 MG/ML INJ IV PRN ×4 (01:51→23:48)
[2019-11-02] MEDS: CLONIDINE HCL 0.1 MG TABLET PO SCH ×3 (06:16→21:14)
[2019-11-02] MEDS: DOCUSATE SODIUM 100 MG CAPSULE PO SCH (10:20)
[2019-11-02] MEDS: AMIODARONE HCL 200 MG TABLET PO SCH (10:20)
[2019-11-02] MEDS: PATIROMER 8.4 GM SUSP PACKET PO SCH (17:24)
--- NOTE | 2019-11-02 19:14 | PDOC PROGRESS REPORT ---
Subjective Progress Note for:: 11/01/19 Subjective:: I am seeing the patient during dialysis. He said is feeling okay except he has having neck pain. He said he is eating a little bit. He had some diarrhea this morning. So far he is tolerating dialysis at this time. Patient had an MRI of the cervical spine yesterday. This showed worrisome findings at C1-C2 and C3-C4, possible infection, tumor, some edema and frag mentation without significant cord compression. Reviewed records from last week. Unfortunately the patient had again positive blood cultures on October 27, positive for MRSA. This is despite being on vancomycin. Over the weekend the right inguinal temporary dialysis catheter was removed. However the left inguinal PermCath was left for use for dialysis. I spoke to Dr. Topete this morning. He indicated that it has become difficult to establish another central venous catheter placement for hemodialysis for this patient. He indicated that prior to this hospitalization and diagnosis of MRSA bacteremia the patient is already referred to [place] vascular surgeon care of Dr. Lerma for other vascular access placement options. Dr. Topete is recommending that if we need another vascular access for this patient ihe might be better off to be transferred to [facility]. In addition the patient has persistent bacteremia which may need other specialties to be involved. I conveyed this information to Dr. Hannon today. Reason For Visit: RENAL MASS/ESRD/BACK PAIN Physical Exam Vital Signs: Temp Pulse Resp BP Pulse Ox 97.3 F 57 L 18 141/69 H 100 11/01/19 11:39 11/01/19 11:39 11/01/19 11:39 11/01/19 11:39 11/01/19 11:39 Intake & Output 10/31/19 11/01/19 11/02/19 06:59 06:59 06:59 Intake Total 1002 990 Output Total 0 0 Balance 1002 990 Weight 89.6 kg Vitals during dialysis: Blood pressure 131/61, respiration of 16, temperature of 97.3 with oxygen saturation of 100% with 2 L of oxygen. Exam: General appearance: PRESENT: no acute distress, cooperative, well-developed, well-nourished Head exam: PRESENT: atraumatic, normocephalic Eye exam: PRESENT: conjunctiva slightly pale, PERRLA. ABSENT: scleral icterus Neck exam: ABSENT: JVD Respiratory exam: PRESENT: Normal breath sounds. ABSENT: crackles, rales, rhonchi, unlabored, wheezes Cardiovascular exam: PRESENT: Regular rate rhythm -+S1, +S2. Grade 3/6 systolic murmur GI/Abdominal exam: PRESENT: normal bowel sounds, soft. ABSENT: guarding, mass, tenderness Extremities exam: Grade 1 lower extremity edema, right arm chronic lymphedema, left inguinal PermCath Neurological exam: PRESENT: alert, awake, oriented to person, place and time. Skin exam: PRESENT: dry, warm, Cardiovascular exam: PRESENT: +S1, +S2 GI/Abdominal exam: PRESENT: normal bowel sounds, soft. ABSENT: organomegaly, tenderness Results Laboratory Results: 11/01/19 06:10 11/01/19 06:10 11/01/19 11/01/19 06:10 06:10 WBC 8.9 RBC 2.97 L Hgb 8.8 L Hct 25.7 L MCV 87 MCH 29.8 MCHC 34.4 RDW 15.1 H Plt Count 328 Seg Neutrophils % 81.3 H Sodium 127.1 L Potassium 5.6 H Chloride 90 L Carbon Dioxide 18 L Anion Gap 19 BUN 87 H Creatinine 11.89 H Est GFR ( Amer) 5 L Glucose 103 Calcium 8.8 10/09/19 10/09/19 23:16 23:16 Creatine Kinase 121 CK-MB (CK-2) 0.57 Troponin I 0.112 Impressions: Abdomen/Pelvis CT 10/10/19 00:00 IMPRESSION: Prominent axillary nodes. Not definitely pathologic. Indeterminate nodes in the mediastinum. Solid right renal mass measuring over 6 cm. Atrophic kidneys. Probable Schmorl's noted L1. Well-circumscribed along the superior endplate without extension into the pedicles. Chest CT 10/10/19 00:00 IMPRESSION: Prominent axillary nodes. Not definitely pathologic. Indeterminate nodes in the mediastinum. Solid right renal mass measuring over 6 cm. Atrophic kidneys. Probable Schmorl's noted L1. Well-circumscribed along the superior endplate without extension into the pedicles. Lumbar Spine CT 10/10/19 03:49 IMPRESSION: 1. Solid-appearing mass at the upper pole of the right kidney, which has increased in size compared to the prior study. This is most compatible with malignancy. Recommend correlation with clinical history. 2. New lytic lesion within the L1 vertebral body, suggesting metastatic disease. 3. No acute fracture. Lumbar Spine MRI 10/10/19 06:22 IMPRESSION: 1. HOMOGENEOUS ROUND LESION IN THE SUPERIOR BODY OF THE L1 VERTEBRAL BODY DESCRIBED. THIS IS CONCERNING FOR A METASTATIC LESION. AN ATYPICAL SCHMORL'S NODE COULD BE ANOTHER POSSIBILITY BUT LESS LIKELY. MAY CONSIDER BONE SCAN TO EVALUATE THE FINDING IN THE L1 VERTEBRAL BODY AND TO DETERMINE IF THERE ARE ANY OTHER SKELETAL LESIONS IN THE REMAINDER OF THE BODY. 2. MILD CHRONIC DEGENERATIVE CHANGES DESCRIBED. NO SIGNIFICANT STENOSIS OR IMPINGEMENT. 3. HETEROGENOUS MASS IN THE RIGHT KIDNEY, NOT COMPLETELY IMAGED. Thoracic Spine MRI 10/10/19 06:22 IMPRESSION: NORMAL MRI THORACIC SPINE. NO EVIDENCE OF THORACIC VERTEBRAL METASTASIS. Chest X-Ray 10/16/19 10:42 IMPRESSION: Mild atelectasis at left lung base. Shoulder X-Ray 10/24/19 00:00 IMPRESSION: No acute or suspicious radiographic findings. Central Venous Line 10/26/19 00:00 IMPRESSION: IMAGE(S) OBTAINED DURING PROCEDURE. Cervical Spine MRI 10/31/19 00:00 IMPRESSION: Worrisome findings at C1-2 and C3-4. Possible infection, tumor. Some edema and fragmentation without significant cord compression. Assessment & Plan - Diagnosis (1) MRSA (methicillin resistant Staphylococcus aureus) septicemia Is this a current diagnosis for this admission?: Yes Plan: Patient is currently on vancomycin since 10/14/2019. Original PermCath was removed on 10/19, and the right inguinal dialysis catheter removed on 10/30 . NEWTON showed mitral valve endocarditis. Patient would need at least 6 weeks of IV antibiotics with vancomycin. Most recent repeat blood cultures on October 27 was still positive for MRSA. I will plan to repeat the patient's blood cultures again next dialysis on Friday. If this continues to be positive I think the patient may need to be transferred to a tertiary care facility for better infectious disease input. (2) Endocarditis of mitral valve Is this a current diagnosis for this admission?: Yes Plan: Diagnosed via NEWTON on 10/21/2019. Patient needs to be evaluated by cardiothoracic surgery eventually (3) End stage renal disease on dialysis Is this a current diagnosis for this admission?: Yes Plan: We will do dialysis today for 3 hours, using the patient's left inguinal PermCath, with 2 potassium bath, blood flow rate of 350 mL per minute, dialysate flow rate of 800 mL per minute, ultrafiltration 1.5 to 2 L as tolerated, no heparin and Procrit with 20,000 units during dialysis intravenously. Patient will be monitored continuously during dialysis treatment today. (4) Renal mass, right Is this a current diagnosis for this admission?: Yes Plan: Patient being evaluated by Dr. Bermeo, oncologist. Biopsy was placed on hold due to bacteremia. (5) Lytic lesion of bone on x-ray Is this a current diagnosis for this admission?: Yes Plan: This involves L1. The plan is to do kyphoplasty by Dr. Billings but again this is put on hold due to the patient's current bacteremia. (6) Metabolic encephalopathy Is this a current diagnosis for this admission?: Yes Plan: Resolved. (7) Hyperkalemia Is this a current diagnosis for this admission?: Yes Plan: We will use low potassium bath during dialysis treatment. Continue Veltassa and low potassium diet. (8) Hypertension Is this a current diagnosis for this admission?: Yes Plan: Well-controlled. (9) Discitis of cervical region Is this a current diagnosis for this admission?: Yes Plan: Consideration for this finding causing neck pain include possible septic emboli versus metastasis. (10) Paroxysmal atrial flutter Is this a current diagnosis for this admission?: Yes (11) Lymphedema of right upper extremity Is this a current diagnosis for this admission?: Yes Plan: This is chronic. - Notes Notes: Discussed the case both with Dr. Topete and Dr. Hannon today. - Time Time with patient: 15-25 minutes
[2019-11-02] MEDS: FAMOTIDINE 20 MG TABLET PO SCH (21:14)
[2019-11-02] MEDS: DIPHENHYDRAMINE HCL 25 MG CAPSULE PO PRN (21:24)
--- NOTE | 2019-11-02 21:25 | PDOC PROGRESS REPORT ---
Subjective Progress Note for:: 11/02/19 Subjective:: I saw patient by the bedside, he complained of neck pain, MRI of the cervical spine was obtained for evaluation of neck pain, the MRI demonstrated diffuse disc osteophyte complex/fluid collection contained by the posterior longitudinal ligaments. Flattening of the anterior thecal sac. The challenge for this patient at this time is the persistent MRSA bacteremia, unfortunately he has end-stage renal disease on hemodialysis, ID recommended that all catheter should be discontinued because of the persistent MRSA bacteremia, the surgeon, vascular surgery, was not particularly in agreement with the removal of the PermCath for dialysis in his groin because of the difficulty of IV access for dialysis in this patient. He also have MRSA mitral valve endocarditis and possible septic embolization to the disc at C3-C4 which correlate with his neck pain. I discuss ed all these findings with the patient today if we need to continue intravenous vancomycin for at least 6 weeks I will call [facility] on Friday to discuss his case with the [place] team and hopefully ask for transfer to [place] Reason For Visit: RENAL MASS/ESRD/BACK PAIN Physical Exam Vital Signs: Temp Pulse Resp BP Pulse Ox 98.3 F 63 16 137/53 H 95 11/02/19 20:43 11/02/19 20:43 11/02/19 20:43 11/02/19 20:43 11/02/19 20:43 Intake & Output 11/01/19 11/02/19 11/03/19 06:59 06:59 06:59 Intake Total 990 1600 720 Output Total 0 2600 Balance 990 -1000 720 Weight 89.6 kg 89.6 kg General appearance: PRESENT: no acute distress Eye exam: PRESENT: PERRLA Respiratory exam: PRESENT: clear to auscultation dave Cardiovascular exam: PRESENT: +S1, +S2 Results Laboratory Results: 11/01/19 06:10 11/01/19 06:10 10/09/19 10/09/19 23:16 23:16 Creatine Kinase 121 CK-MB (CK-2) 0.57 Troponin I 0.112 Impressions: Abdomen/Pelvis CT 10/10/19 00:00 IMPRESSION: Prominent axillary nodes. Not definitely pathologic. Indeterminate nodes in the mediastinum. Solid right renal mass measuring over 6 cm. Atrophic kidneys. Probable Schmorl's noted L1. Well-circumscribed along the superior endplate without extension into the pedicles. Chest CT 10/10/19 00:00 IMPRESSION: Prominent axillary nodes. Not definitely pathologic. Indeterminate nodes in the mediastinum. Solid right renal mass measuring over 6 cm. Atrophic kidneys. Probable Schmorl's noted L1. Well-circumscribed along the superior endplate without extension into the pedicles. Lumbar Spine CT 10/10/19 03:49 IMPRESSION: 1. Solid-appearing mass at the upper pole of the right kidney, which has increased in size compared to the prior study. This is most compatible with malignancy. Recommend correlation with clinical history. 2. New lytic lesion within the L1 vertebral body, suggesting metastatic disease. 3. No acute fracture. Lumbar Spine MRI 10/10/19 06:22 IMPRESSION: 1. HOMOGENEOUS ROUND LESION IN THE SUPERIOR BODY OF THE L1 VERTEBRAL BODY DESCRIBED. THIS IS CONCERNING FOR A METASTATIC LESION. AN ATYPICAL SCHMORL'S NODE COULD BE ANOTHER POSSIBILITY BUT LESS LIKELY. MAY CONSIDER BONE SCAN TO EVALUATE THE FINDING IN THE L1 VERTEBRAL BODY AND TO DETERMINE IF THERE ARE ANY OTHER SKELETAL LESIONS IN THE REMAINDER OF THE BODY. 2. MILD CHRONIC DEGENERATIVE CHANGES DESCRIBED. NO SIGNIFICANT STENOSIS OR IMPINGEMENT. 3. HETEROGENOUS MASS IN THE RIGHT KIDNEY, NOT COMPLETELY IMAGED. Thoracic Spine MRI 10/10/19 06:22 IMPRESSION: NORMAL MRI THORACIC SPINE. NO EVIDENCE OF THORACIC VERTEBRAL METASTASIS. Chest X-Ray 10/16/19 10:42 IMPRESSION: Mild atelectasis at left lung base. Shoulder X-Ray 10/24/19 00:00 IMPRESSION: No acute or suspicious radiographic findings. Central Venous Line 10/26/19 00:00 IMPRESSION: IMAGE(S) OBTAINED DURING PROCEDURE. Cervical Spine MRI 10/31/19 00:00 IMPRESSION: Worrisome findings at C1-2 and C3-4. Possible infection, tumor. Some edema and fragmentation without significant cord compression. 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 Is this a current diagnosis for this admission?: Yes (3) End stage renal disease on dialysis Is this a current diagnosis for this admission?: Yes (4) Lytic lesion of bone on x-ray Is this a current diagnosis for this admission?: Yes (5) Atrial flutter Qualifiers: Atrial flutter type: typical Qualified Code(s): I48.3 - Typical atrial fl utter Is this a current diagnosis for this admission?: Yes (6) Metabolic encephalopathy Is this a current diagnosis for this admission?: Yes (7) Aortic valve regurgitation Qualifiers: Cardiac valve disease etiology: nonrheumatic Qualified Code(s): I35.1 - N onrheumatic aortic (valve) insufficiency Is this a current diagnosis for this admission?: Yes (8) Endocarditis of mitral valve Is this a current diagnosis for this admission?: Yes (9) Discitis of cervical region Is this a current diagnosis for this admission?: Yes - Time Time Spent with patient: 15-24 minutes Level of Care: IMCU
--- NOTE | 2019-11-02 22:58 | Progress Note ---
Provider Note Provider Note: CARDIOLOGY PROGRESS NOTE by Dr. Amanda Raines on 11/02/2019. SUBJECTIVE: The patient states that his neck pain is slightly improved. The patient remains in sinus rhythm with no recurrence of atrial flutter. The patient states he is being transferred to [place] for renal biopsy. The patient denies any chest pain or discomfort. There is no shortness of breath. There is no PND orthopnea. He remains afebrile. PHYSICAL EXAMINATION: The patient appears to be chronically ill. But in no acute distress. Selected Entries 11/02/19 11/02/19 15:59 16:00 Temperature 98.0 F Temperature Oral Source Pulse Rate 104 H Respiratory 19 Rate Blood Pressure 120/56 L Blood Pressure 77 Mean BP Location Right Arm BP Position Supine O2 Sat by Pulse 93 Oximetry Oxygen Delivery Room Air Method HEAD: Is atraumatic and normocephalic. EYES: Pupils are equal round regular reactive to light accommodation. External ocular movements are normal. There is no conjunctival pallor. There is no scleral icterus. EARS: Tympanic membranes are intact. External auditory canals are clear. NOSE: There is no deviated nasal septum. There is no inflammation of the nasal mucous membrane. MOUTH: Mucous membranes of mouth are moist. Tongue is moist. There is no ulcers in the mouth. There is no bleeding from the gums. THROAT: There is no redness of the oropharynx. There is no exudates. SKIN: There is no skin rashes. There is no petechia or ecchymosis. There is no skin lesions. NECK: Is supple. There is no JVD. Carotids equal there is no bruit. There is no lymphadenopathy. Trachea central. LUNGS: Lungs are clear to auscultation percussion, without any rhonchi rales or wheezing. THERE IS NO CHEST WALL TENDERNESS. Heart: S1, S2 heard normally. There is no S3 gallop. There is no S4 gallop. There is systolic murmur left sternal border and apex. Murmur of mitral regurgitation heard. . There is no rub. ABDOMEN: Soft. Nontender. There is no hepatosplenomegaly. All sounds are well heard. There is no tender areas of masses. EXTREMITIES: Femorals are diminished. There is no femoral bruits. Leg pulses are diminished. There is no pedal edema. There is diffuse swelling of the right upper extremity. There is no DVT or cellulitis. There is no cyanosis or clubbing. There is no calf tenderness. STEAM PRESS TENDER: The patient is conscious awake drowsy, but with with no focal deficits. PSYCHIATRIC: The patient is not agitated or anxious. IMPRESSION/RECOMMENDATION: 1. 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 Patient for dialysis of the right leg lesion. Hence the patient's Eliquis has been discontinued. Most likely will have the biopsy as an outpatient. 2. Recent recurrent atrial flutter with rapid ventricular response. Patient back to sinus rhythm post IV amiodarone drip which is been discontinued. Will decrease the patient's amiodarone to 200 mg p.o. once daily. Patient has history of proximal small atrial flutter. We will cut back the patient's amiodarone to 200 mg once a day. 3. Hyperkalemia in a patient with end-stage renal disease. The patient is getting dialyzed. 4. . History of congestive heart failure secondary to volume overload during prior admission. At present compensated. 5. Hypertension: At present uncontrolled continue current medications. Increase the patient's clonidine to 0.1 mg p.o. every 8 hours. 6. END STAGE RENAL DISEASE: On hemodialysis. 7. History of hyperlipidemia. Continue statins 8. Murmur of mitral regurgitation: Mild mitral regurgitation by echocardiography. 9. Hyperkalemia: Nephrology on the case. 10. Moderate pulmonary hypertension. 11. 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 Clinically and by NE[place] no significant mitral regurgitation. Continue antibiotics. Medications reviewed. Medical regimen and management plan discussed with Dr. Garcia covering for Dr. Hannon. Medical decision making is a moderate complexity. 40 minutes spent as patient more than 50% of time spent in direct patient care. Will sign off the case and follow-up the patient in the office. This will be discussed with Dr. Hannon.
[2019-11-03] MEDS ORDERED: NORMAL SALINE 1000 ML 1,000 ML IV PRN (05:00)
[2019-11-03] MEDS ORDERED: HEPARIN SOD (PORCINE) 1,000 UNIT/ML 10 ML VIAL IV PRN (05:00)
[2019-11-03] MEDS ORDERED: EPOETIN ALFA-EPBX 20,000 UNIT in SYRINGE, DISPOSABLE, 1 EACH IV PRN ×4 (05:00)
[2019-11-03] MEDS: CLONIDINE HCL 0.1 MG TABLET PO SCH ×3 (05:25→22:34)
[2019-11-03 06:10] LABS: ABSOLUTE BASOPHILS # (AUTO) 0.1 10^3/uL (0.0-0.2); ABSOLUTE EOSINOPHILS # (AUTO) 0.2 10^3/uL (0.0-0.6); ABSOLUTE LYMPHOCYTES (AUTO) 0.9 10^3/uL (0.5-4.7); ABSOLUTE NEUT (AUTO) 5.6 10^3/uL (1.7-8.2); BASOPHILS % (AUTO) 1.1 % (0-2); EOSINOPHILS % (AUTO) 2.8 % (0-6); HEMATOCRIT 25.1 % (37.9-51.0); HEMOGLOBIN 8.5 g/dL (13.5-17.0); LYMPHOCYTES % (AUTO) 11.6 % (13-45); MEAN CORPUSCULAR HEMOGLOBIN 29.5 pg (27.0-33.4); MEAN CORPUSCULAR VOLUME 87 fl (80-97); MONOCYTES % (AUTO) 12.8 % (3-13); PLATELET COUNT 265 10^3/uL (150-450); RED CELL DISTRIBUTION WIDTH 14.9 % (11.5-14.0); SEGMENTED NEUTROPHILS % (AUTO) 71.7 % (42-78); TOTAL CELLS COUNTED % (AUTO) 100 %; WHITE BLOOD COUNT 7.8 10^3/uL (4.0-10.5)
[2019-11-03 06:33] LABS: ANION GAP 18 (5-19); BLOOD UREA NITROGEN 72 mg/dL (7-20); CALCIUM 8.8 mg/dL (8.4-10.2); CARBON DIOXIDE 23 mmol/L (22-30); CHLORIDE 90 mmol/L (98-107); GLUCOSE 104 mg/dL (75-110); POTASSIUM 4.9 mmol/L (3.6-5.0)
[2019-11-03 06:36] LABS: VANCOMYCIN,TROUGH 17.7 ug/mL (5.0-20.0)
[2019-11-03] MEDS: MORPHINE SULFATE 10 MG/ML INJ IV PRN ×3 (08:52→22:37)
--- NOTE | 2019-11-03 09:24 | PDOC PROGRESS REPORT ---
Subjective Progress Note for:: 11/03/19 Subjective:: I am seeing the patient during dialysis this morning. He is doing fine and stable during dialysis treatment. He tells me that he still having some neck pain though. Other than that he does not have any other complaints. I reiterated to him today that were going to repeat another 2 sets of blood culture today and if is still positive, because of difficulty with vascular access he may need to transfer him to a tertiary center like [facility]. Patient understood and is willing to go along with the plan. I did spoke to Dr. Benson who tells me that the patient may have had an AV graft in the past and we may need to look at that's focus of infection as well. So I am going to order WBC scan and see if that would identify of any more further focus of infection. If his old AV graft is the one infected then definitely patient needs to be moved to [place] for removal of it. Reason For Visit: RENAL MASS/ESRD/BACK PAIN Physical Exam Vital Signs: Temp Pulse Resp BP Pulse Ox 98.0 F 66 18 113/57 L 100 11/03/19 05:19 11/03/19 07:00 11/03/19 05:19 11/03/19 05:19 11/03/19 05:19 Intake & Output 11/02/19 11/03/19 11/04/19 06:59 06:59 06:59 Intake Total 1600 980 Output Total 2600 Balance -1000 980 Weight 89.6 kg Vitals during dialysis now: Blood pressure 108/51, heart rate of 69, blood flow rate of 350 mL/min and dialysate flow rate of 800 mL/min. Exam: General appearance: PRESENT: no acute distress, cooperative, well-developed, well-nourished Head exam: PRESENT: atraumatic, normocephalic Eye exam: PRESENT: conjunctiva slightly pale, PERRLA. ABSENT: scleral icterus Neck exam: ABSENT: JVD Respiratory exam: PRESENT: Normal breath sounds. ABSENT: crackles, rales, rhonchi, unlabored, wheezes Cardiovascular exam: PRESENT: Regular rate rhythm -+S1, +S2. Grade 2/6 systolic murmur GI/Abdominal exam: PRESENT: normal bowel sounds, soft. ABSENT: guarding, mass, tenderness Extremities exam: Bilateral ankle edema Neurological exam: PRESENT: alert, awake, oriented to person, place and time. Skin exam: PRESENT: dry, warm, Cardiovascular exam: PRESENT: +S1, +S2 GI/Abdominal exam: PRESENT: normal bowel sounds, soft. ABSENT: organomegaly, tenderness Results Laboratory Results: 11/03/19 05:47 11/03/19 05:47 11/03/19 11/03/19 05:47 05:47 WBC 7.8 RBC 2.90 L Hgb 8.5 L Hct 25.1 L MCV 87 MCH 29.5 MCHC 34.0 RDW 14.9 H Plt Count 265 Seg Neutrophils % 71.7 Sodium 130.7 L Potassium 4.9 Chloride 90 L Carbon Dioxide 23 Anion Gap 18 BUN 72 H Creatinine 10.83 H Est GFR ( Amer) 6 L Glucose 104 Calcium 8.8 10/09/19 10/09/19 23:16 23:16 Creatine Kinase 121 CK-MB (CK-2) 0.57 Troponin I 0.112 Impressions: Abdomen/Pelvis CT 10/10/19 00:00 IMPRESSION: Prominent axillary nodes. Not definitely pathologic. Indeterminate nodes in the mediastinum. Solid right renal mass measuring over 6 cm. Atrophic kidneys. Probable Schmorl's noted L1. Well-circumscribed along the superior endplate without extension into the pedicles. Chest CT 10/10/19 00:00 IMPRESSION: Prominent axillary nodes. Not definitely pathologic. Indeterminate nodes in the mediastinum. Solid right renal mass measuring over 6 cm. Atrophic kidneys. Probable Schmorl's noted L1. Well-circumscribed along the superior endplate without extension into the pedicles. Lumbar Spine CT 10/10/19 03:49 IMPRESSION: 1. Solid-appearing mass at the upper pole of the right kidney, which has increased in size compared to the prior study. This is most compatible with malignancy. Recommend correlation with clinical history. 2. New lytic lesion within the L1 vertebral body, suggesting metastatic disease. 3. No acute fracture. Lumbar Spine MRI 10/10/19 06:22 IMPRESSION: 1. HOMOGENEOUS ROUND LESION IN THE SUPERIOR BODY OF THE L1 VERTEBRAL BODY DESCRIBED. THIS IS CONCERNING FOR A METASTATIC LESION. AN ATYPICAL SCHMORL'S NODE COULD BE ANOTHER POSSIBILITY BUT LESS LIKELY. MAY CONSIDER BONE SCAN TO EVALUATE THE FINDING IN THE L1 VERTEBRAL BODY AND TO DETERMINE IF THERE ARE ANY OTHER SKELETAL LESIONS IN THE REMAINDER OF THE BODY. 2. MILD CHRONIC DEGENERATIVE CHANGES DESCRIBED. NO SIGNIFICANT STENOSIS OR IMPINGEMENT. 3. HETEROGENOUS MASS IN THE RIGHT KIDNEY, NOT COMPLETELY IMAGED. Thoracic Spine MRI 10/10/19 06:22 IMPRESSION: NORMAL MRI THORACIC SPINE. NO EVIDENCE OF THORACIC VERTEBRAL METASTASIS. Chest X-Ray 10/16/19 10:42 IMPRESSION: Mild atelectasis at left lung base. Shoulder X-Ray 10/24/19 00:00 IMPRESSION: No acute or suspicious radiographic findings. Central Venous Line 10/26/19 00:00 IMPRESSION: IMAGE(S) OBTAINED DURING PROCEDURE. Cervical Spine MRI 10/31/19 00:00 IMPRESSION: Worrisome findings at C1-2 and C3-4. Possible infection, tumor. Some edema and fragmentation without significant cord compression. Assessment & Plan - Diagnosis (1) MRSA (methicillin resistant Staphylococcus aureus) septicemia Is this a current diagnosis for this admission?: Yes Plan: Patient is currently on vancomycin since 10/14/2019. Original PermCath was removed on 10/19, and the right inguinal dialysis catheter removed on 10/30 . NEWTON showed mitral valve endocarditis. Patient would need at least 6 weeks of IV antibiotics with vancomycin. Most recent repeat blood cultures on October 27 was still positive for MRSA. We will do 2 more sets of blood cultures today during dialysis. I will also order a WBC scan today. If this continues to be positive I think the patient may need to be transferred to a tertiary care facility for better infectious disease input. (2) Endocarditis of mitral valve Is this a current diagnosis for this admission?: Yes Plan: Diagnosed via NEWTON on 10/21/2019. Patient needs to be evaluated by cardiot horacic surgery eventually (3) End stage renal disease on dialysis Is this a current diagnosis for this admission?: Yes Plan: We will do dialysis today for 3 hours, using the patient's left inguinal PermCath, with 2 potassium bath, blood flow rate of 350 mL per minute, dialysate flow rate of 800 mL per minute, ultrafiltration 1 to 2 L as tolerated, no heparin and Procrit with 20,000 units during dialysis intravenously. Blood c ultures will be obtained x2 sets during dialysis. Patient will be monitored throughout dialysis treatment by our dialysis nurse. (4) Renal mass, right Is this a current diagnosis for this admission?: Yes Plan: Patient being evaluated by Dr. Bermeo, oncologist. Biopsy was placed on hold due to bacteremia. (5) Lytic lesion of bone on x-ray Is this a current diagnosis for this admission?: Yes Plan: This involves L1. The plan is to do kyphoplasty by Dr. Billings but again this is put on hold due to the patient's current bacteremia. (6) Metabolic encephalopathy Is this a current diagnosis for this admission?: Yes Plan: Resolved. (7) Hyperkalemia Is this a current diagnosis for this admission?: Yes Plan: We will use low potassium bath during dialysis treatment. Continue Veltassa and low potassium diet. (8) Hypertension Is this a current diagnosis for this admission?: Yes Plan: Well-controlled. (9) Discitis of cervical region Is this a current diagnosis for this admission?: Yes Plan: Consideration for this finding causing neck pain include possible septic emboli versus metastasis. (10) Paroxysmal atrial flutter Is this a current diagnosis for this admission?: Yes (11) Lymphedema of right upper extremity Is this a current diagnosis for this admission?: Yes Plan: This is chronic. - Time Time with patient: 15-25 minutes
[2019-11-03] MEDS: AMIODARONE HCL 200 MG TABLET PO SCH (10:43)
[2019-11-03] MEDS: DOCUSATE SODIUM 100 MG CAPSULE PO SCH (10:44)
--- NOTE | 2019-11-03 17:28 | PDOC TRANSFER SUMMARY ---
General Admission Date/PCP: 10/10/19 08:58 СВЕТЛАНА WHEELER MD Resuscitation Status: Full Code - Transfer Diagnosis (1) MRSA (methicillin resistant Staphylococcus aureus) septicemia Is this a current diagnosis for this admission?: Yes (2) Neoplasm of uncertain behavior of right kidney Is this a current diagnosis for this admission?: Yes (3) End stage renal disease on dialysis Is this a current diagnosis for this admission?: Yes (4) Lytic lesion of bone on x-ray Is this a current diagnosis for this admission?: Yes (5) Atrial flutter Is this a current diagnosis for this admission?: Yes (6) Metabolic encephalopathy Is this a current diagnosis for this admission?: Yes (7) Aortic valve regurgitation Is this a current diagnosis for this admission?: Yes (8) Endocarditis of mitral valve Is this a current diagnosis for this admission?: Yes (9) Discitis of cervical region Is this a current diagnosis for this admission?: Yes - Transfer Medications Home Medications: Acetaminophen [Tylenol 325 mg Tablet] 650 mg PO Q4HP PRN 10/10/19 Albuterol Sulfate [Albuterol Sulfate Hfa] 2 puff IH Q4HP PRN 10/10/19 Amiodarone HCl [Cordarone 200 mg Tablet] 200 mg PO DAILY 10/10/19 Apixaban [Eliquis 2.5 mg Tablet] 2.5 mg PO Q12 10/10/19 Calcium Acetate [Phoslo 667 mg Capsule] 2,001 mg PO MEALS 10/10/19 Calcium Acetate [Phoslo 667 mg Capsule] 667 mg PO .BIDWITHSNACKS 10/10/19 Calcium Carbonate [Tums] 200 mg PO DAILYP PRN 10/10/19 Cinacalcet HCl [Sensipar 30 mg Tablet] 30 mg PO DAILY 10/10/19 Clonidine HCl [Catapres 0.1 mg Tablet] 0.1 mg PO DAILY 10/10/19 Metoprolol Tartrate [Lopressor 25 mg Tablet] 25 mg PO DAILY 10/10/19 Simvastatin 20 mg PO QHS 10/10/19 Transfer Medications: Current Medications Acetaminophen (Tylenol 325 Mg Tablet) 650 mg PO Q8HP PRN PRN Reason: FOR MILD PAIN OR TEMP Stop: 11/10/19 07:59 Last Admin: 11/01/19 05:50 Dose: 650 mg Documented by: Amiodarone HCl (Cordarone 200 Mg Tablet) 200 mg PO DAILY [facility] Stop: 12/02/19 09:59 Last Admin: 11/03/19 10:43 Dose: 200 mg Documented by: Clonidine (Catapres 0.1 Mg Tablet) 0.1 mg PO Q8 [facility]NA Stop: 11/20/19 17:29 Last Admin: 11/03/19 14:45 Dose: 0.1 mg Documented by: Dextrose (Dextrose Inj 50% Syringe (25 Gm/50 Ml)) 12.5 gm IV PRN PRN; Protocol PRN Reason: FOR BG 50-69 IN ALERT PATIENT Stop: 11/19/19 13:37 Dextrose (Dextrose Inj 50% Syringe (25 Gm/50 Ml)) 25 gm IV PRN PRN; Protocol PRN Reason: See Label Comments Stop: 11/19/19 13:37 Diphenhydramine HCl (Benadryl 25 Mg Capsule) 25 mg PO Q8HP PRN PRN Reason: ITCHING Stop: 11/09/19 22:46 Last Admin: 11/02/19 21:24 Dose: 25 mg Documented by: Docusate Sodium (Colace 100 Mg Capsule) 100 mg PO DAILY [facility] Stop: 11/10/19 09:59 Last Admin: 11/03/19 10:44 Dose: Not Given Documented by: Famotidine (Pepcid 20 Mg Tablet) 20 mg PO QHS [facility] Stop: 11/09/19 21:59 Last Admin: 11/02/19 21:14 Dose: 20 mg Documented by: Glucagon (Glucagen Inj 1 Mg Vial) 1 mg SUBCUT PRN PRN; Protocol PRN Reason: Evaluate for BG < 70 Stop: 11/19/19 13:37 Glucose (Glutose 40% Gel 15 Gm Tube) 15 gm PO PRN PRN; Protocol PRN Reason: For BG 50-69 in Alert Patient Stop: 11/19/19 13:37 Glucose (Glutose 40% Gel 15 Gm Tube) 30 gm PO PRN PRN; Protocol PRN Reason: FOR BG < 50 IN ALERT PATIENT Stop: 11/19/19 13:37 Heparin Sodium (Porcine) (Heparin Inj 1,000 Unit/Ml 10 Ml Vial) 4,300 unit IV .SPLIT B/N CATHETERS PRN PRN Reason: THIS MED IS NOT "PRN" Stop: 11/03/19 23:59 Last Admin: 11/03/19 09:50 Dose: 5,800 units Documented by: Vancomycin HCl 400 mg/ (Dextrose) 100 mls @ 66.667 mls/hr IV PDIA [facility] Stop: 11/05/19 17:59 Last Infusion: 11/01/19 20:42 Dose: Infused Documented by: Sodium Chloride (Nacl 0.9% 1000 Ml Iv Soln) 1,000 mls @ 0 mls/hr IV .DIALYSIS PRN PRN Reason: THIS MED IS NOT "PRN" Stop: 11/03/19 23:59 Epoetin Herrera-epbx 20,000 unit/ (Syringe) 2 mls @ 0 mls/hr IV .DIALYSIS PRN PRN Reason: THIS MED IS NOT "PRN" Stop: 11/03/19 23:59 Last Admin: 11/03/19 08:05 Dose: 20,000 mls/hr Documented by: Morphine Sulfate (Morphine 10 Mg/Ml Inj) 1 mg IV Q4HP PRN PRN Reason: FOR PAIN Stop: 11/08/19 20:24 Last Admin: 11/03/19 08:52 Dose: 1 mg Documented by: Ondansetron HCl (Zofran Inj/Pf 4 Mg/2 Ml Sdv) 4 mg IV Q4HP PRN PRN Reason: FOR NAUSEA/VOMITING Stop: 11/09/19 10:43 Patiromer (Veltassa 8.4 Gm Susp Packet) 16.8 gm PO WSUPPER [facility] Stop: 11/25/19 16:59 Last Admin: 11/02/19 17:24 Dose: Not Given Documented by: - Allergies Allergies/Adverse Reactions: DRY GAMBRO DIALYZERS Allergy (Unknown, Uncoded 06/22/18 04:07) "BP drop, vomiting" PAPER TAPE Allergy (Uncoded 06/22/18 04:07) Rash Hospital Course Hospital Course: Patient presented to the emergency room on October 10, 2019 for evaluation right flank abdominal pain, in the emergency room, CAT scan of the abdomen and pelvis was obtained it demonstrated a solid mass in the superior pole of the right kidney also found was a lytic lesion involving the L1 lumbar vertebra bone. It is to be noted that 2 years ago when patient presented emergency room for evaluation of chest pain at that time he had a CT angiogram of the chest done, there was incidental finding of a mass of his right kidney at that time it was about 2 to 4 cm in size so clearly in 2 years the mass has increased in size suggesting that this is most likely a malignant lesion. It is to be noted that patient is not compliant with office visit did not follow-up for 2 years in the office until this admission in the hospital. Patient was offered inpatient care because of this new finding. He has a history of end-stage renal disease due to hypertensive nephrosclerosis on maintenance hemodialysis, history of atrial flutter/A. fib on amiodarone and also Eliquis anticoagulan he had episode of altered mental status, confusion, blood culture was drawn as part of evaluation for the confusion, the blood culture was positive for MRSA sensitive to vancomycin Patient was treated with vancomycin, before MRSA bacteremia was diagnosed the intent was to biopsy the lytic lesion on L1 vertebral bone but because of the MRSA bacteremia the procedure was never done. He was initially on Eliquis this was held in anticipation of biopsy of the lumbar vertebra.Patient hospital course was eventful, he had episode of atrial fib rillation with rapid ventricular response treated with Cardizem and also amiodarone ,he was seen in consultation by the marble setter helper ,DR Zhong.Patient has persistent MRSA bacteremia the initial plan was to undergo a needle biopsy of the lytic lesion on the vertebrae provided MRSA was eradicated from his blood, but the blood culture persistently was positive for MRSA because of this consistent bacteremia NEWTON was done and because of the suspicion for endocarditis and the fact that he had a murmur on auscultation, NEWTON confirmed a 1.5 cm vegetation of the anterior leaflet of the mitral valve suggesting [place] [employer] [place] valve endocarditis, he was evaluated remotely by ID, ID did recommended 6 weeks of IV antibiotic therapy with vancomycin and also to watch closely for decompensation in case he needed to valvular surgery.He also complained of neck pain MRI of the neck was done, it demonstrated probably septic discitis of the cervical vertebra.The other major issue was the IV access patient have difficulty IV access for hemodialysis he has lymphedema of the right upper extremities partly from failed IV access procedures, because of the persistent MRSA bacteremia infectious disease recommended that all catheter to be discontinued including the dialysis catheter. 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, MRSA bacteremia, endocarditis, atrial fibrillation flutter ESRD on hemodialysis Physical Exam Vital Signs: Temp Pulse Resp BP Pulse Ox 98.2 F 66 18 125/59 L 99 11/03/19 11:47 11/03/19 14:00 11/03/19 11:47 11/03/19 11:47 11/03/19 11:47 Intake & Output 11/02/19 11/03/19 11/04/19 06:59 06:59 06:59 Intake Total 7542 920 2560 Output Total 2600 3000 Balance -1000 980 -1646 Weight 89.6 kg General appearance: PRESENT: no acute distress Eye exam: PRESENT: PERRLA Respiratory exam: PRESENT: clear to auscultation dave Cardiovascular exam: PRESENT: +S1, +S2, systolic murmur GI/Abdominal exam: PRESENT: soft Neurological exam: PRESENT: alert, CN II-XII grossly intact Results Laboratory Results: 11/03/19 05:47 11/03/19 05:47 11/03/19 11/03/19 05:47 05:47 WBC 7.8 RBC 2.90 L Hgb 8.5 L Hct 25.1 L MCV 87 MCH 29.5 MCHC 34.0 RDW 14.9 H Plt Count 265 Seg Neutrophils % 71.7 Sodium 130.7 L Potassium 4.9 Chloride 90 L Carbon Dioxide 23 Anion Gap 18 BUN 72 H Creatinine 10.83 H Est GFR ( Amer) 6 L Glucose 104 Calcium 8.8 10/09/19 10/09/19 23:16 23:16 Creatine Kinase 121 CK-MB (CK-2) 0.57 Troponin I 0.112 Impressions: Abdomen/Pelvis CT 10/10/19 00:00 IMPRESSION: Prominent axillary nodes. Not definitely pathologic. Indeterminate nodes in the mediastinum. Solid right renal mass measuring over 6 cm. Atrophic kidneys. Probable Schmorl's noted L1. Well-circumscribed along the superior endplate without extension into the pedicles. Chest CT 10/10/19 00:00 IMPRESSION: Prominent axillary nodes. Not definitely pathologic. Indeterminate nodes in the mediastinum. Solid right renal mass measuring over 6 cm. Atrophic kidneys. Probable Schmorl's noted L1. Well-circumscribed along the superior endplate without extension into the pedicles. Lumbar Spine CT 10/10/19 03:49 IMPRESSION: 1. Solid-appearing mass at the upper pole of the right kidney, which has increased in size compared to the prior study. This is most compatible with malignancy. Recommend correlation with clinical history. 2. New lytic lesion within the L1 vertebral body, suggesting metastatic disease. 3. No acute fracture. Lumbar Spine MRI 10/10/19 06:22 IMPRESSION: 1. HOMOGENEOUS ROUND LESION IN THE SUPERIOR BODY OF THE L1 VERTEBRAL BODY DE SCRIBED. THIS IS CONCERNING FOR A METASTATIC LESION. AN ATYPICAL SCHMORL'S NODE COULD BE ANOTHER POSSIBILITY BUT LESS LIKELY. MAY CONSIDER BONE SCAN TO EVALUATE THE FINDING IN THE L1 VERTEBRAL BODY AND TO DETERMINE IF THERE ARE ANY OTHER SKELETAL LESIONS IN THE REMAINDER OF THE BODY. 2. MILD CHRONIC DEGENERATIVE CHANGES DESCRIBED. NO SIGNIFICANT STENOSIS OR IMPINGEMENT. 3. HETEROGENOUS MASS IN THE RIGHT KIDNEY, NOT COMPLETELY IMAGED. Thoracic Spine MRI 10/10/19 06:22 IMPRESSION: NORMAL MRI THORACIC SPINE. NO EVIDENCE OF THORACIC VERTEBRAL METASTASIS. Chest X-Ray 10/16/19 10:42 IMPRESSION: Mild atelectasis at left lung base. Shoulder X-Ray 10/24/19 00:00 IMPRESSION: No acute or suspicious radiographic findings. Central Venous Line 10/26/19 00:00 IMPRESSION: IMAGE(S) OBTAINED DURING PROCEDURE. Cervical Spine MRI 10/31/19 00:00 IMPRESSION: Worrisome findings at C1-2 and C3-4. Possible infection, tumor. Some edema and fragmentation without significant cord compression.
[2019-11-03] MEDS: VANCOMYCIN HCL 400 MG in DEXTROSE 5%-WATER 100 ML IV SCH (18:26)
[2019-11-03] MEDS: PATIROMER 8.4 GM SUSP PACKET PO SCH (18:26)
[2019-11-03] MEDS: FAMOTIDINE 20 MG TABLET PO SCH (22:34)
[2019-11-04] MEDS: MORPHINE SULFATE 10 MG/ML INJ IV PRN ×2 (03:28→13:43)
[2019-11-04] MEDS: CLONIDINE HCL 0.1 MG TABLET PO SCH ×3 (06:21→21:31)
[2019-11-04] MEDS: DOCUSATE SODIUM 100 MG CAPSULE PO SCH (10:07)
[2019-11-04] MEDS: AMIODARONE HCL 200 MG TABLET PO SCH (10:07)
--- NOTE | 2019-11-04 16:18 | RADIOLOGY REPORT (SQ) ---
EXAM DESCRIPTION: NM TAGGED WBC WHOLE BODY COMPLETED DATE/TIME: 11/04/2019 3:44 pm REASON FOR STUDY: persistent MRSA bacteremia COMPARISON: None. RADIONUCLIDE AND DOSE: 6.01 mCi of autologous WBC tagged with Tc99m HMPAO. ADDITIONAL DRUGS AND DOSES: None. TECHNIQUE: The radionuclide was injected intravenously and static images of the whole-body were obta ined 2 hours post injection in the anterior and posterior projections. Addition static images center ed on the AV graft in the right upper extremity were also obtained in the anterior and posterior proj ections. RADIATION DOSE: None. LIMITATIONS: None. FINDINGS: Physiologic uptake in the lung, liver and spleen. No areas of abnormal uptake are identif ied. IMPRESSION: No scintigraphic evidence of an active infection. TECHNICAL DOCUMENTATION: JOB ID: [id number] [employer]- All Rights Reserved Reading location - IP/workstation name: [email or web address]
[2019-11-04] MEDS: PATIROMER 8.4 GM SUSP PACKET PO SCH (17:37)
--- NOTE | 2019-11-04 21:07 | PDOC PROGRESS REPORT ---
Subjective Progress Note for:: 11/04/19 Subjective:: Patient seen by the bedside, he was accepted in transfer yesterday by [facility], still waiting for a bed to open up, I explained the process to the patient, he demonstrated understanding of the situation Reason For Visit: RENAL MASS/ESRD/BACK PAIN Physical Exam Vital Signs: Temp Pulse Resp BP Pulse Ox 97.2 F 73 16 139/49 H 99 11/04/19 16:19 11/04/19 16:19 11/04/19 16:19 11/04/19 16:19 11/04/19 16:19 Intake & Output 11/03/19 11/04/19 11/05/19 06:59 06:59 06:59 Intake Total 980 2686 940 Output Total 3000 Balance 980 -314 940 General appearance: PRESENT: no acute distress Eye exam: PRESENT: PERRLA Respiratory exam: PRESENT: clear to auscultation dave Cardiovascular exam: PRESENT: +S1, +S2 GI/Abdominal exam: PRESENT: soft Neurological exam: PRESENT: alert Results Laboratory Results: 11/03/19 05:47 11/03/19 05:47 10/09/19 10/09/19 23:16 23:16 Creatine Kinase 121 CK-MB (CK-2) 0.57 Troponin I 0.112 Impressions: Abdomen/Pelvis CT 10/10/19 00:00 IMPRESSION: Prominent axillary nodes. Not definitely pathologic. Indeterminate nodes in the mediastinum. Solid right renal mass measuring over 6 cm. Atrophic kidneys. Probable Schmorl's noted L1. Well-circumscribed along the superior endplate without extension into the pedicles. Chest CT 10/10/19 00:00 IMPRESSION: Prominent axillary nodes. Not definitely pathologic. Indeterminate nodes in the mediastinum. Solid right renal mass measuring over 6 cm. Atrophic kidneys. Probable Schmorl's noted L1. Well-circumscribed along the superior endplate without extension into the pedicles. Lumbar Spine CT 10/10/19 03:49 IMPRESSION: 1. Solid-appearing mass at the upper pole of the right kidney, which has increased in size compared to the prior study. This is most compatible with malignancy. Recommend correlation with clinical history. 2. New lytic lesion within the L1 vertebral body, suggesting metastatic disease. 3. No acute fracture. Lumbar Spine MRI 10/10/19 06:22 IMPRESSION: 1. HOMOGENEOUS ROUND LESION IN THE SUPERIOR BODY OF THE L1 VERTEBRAL BODY DESCRIBED. THIS IS CONCERNING FOR A METASTATIC LESION. AN ATYPICAL SCHMORL'S NODE COULD BE ANOTHER POSSIBILITY BUT LESS LIKELY. MAY CONSIDER BONE SCAN TO EVALUATE THE FINDING IN THE L1 VERTEBRAL BODY AND TO DETERMINE IF THERE ARE ANY OTHER SKELETAL LESIONS IN THE REMAINDER OF THE BODY. 2. MILD CHRONIC DEGENERATIVE CHANGES DESCRIBED. NO SIGNIFICANT STENOSIS OR IMPINGEMENT. 3. HETEROGENOUS MASS IN THE RIGHT KIDNEY, NOT COMPLETELY IMAGED. Thoracic Spine MRI 10/10/19 06:22 IMPRESSION: NORMAL MRI THORACIC SPINE. NO EVIDENCE OF THORACIC VERTEBRAL METASTASIS. Chest X-Ray 10/16/19 10:42 IMPRESSION: Mild atelectasis at left lung base. Shoulder X-Ray 10/24/19 00:00 IMPRESSION: No acute or suspicious radiographic findings. Central Venous Line 10/26/19 00:00 IMPRESSION: IMAGE(S) OBTAINED DURING PROCEDURE. Cervical Spine MRI 10/31/19 00:00 IMPRESSION: Worrisome findings at C1-2 and C3-4. Possible infection, tumor. S ome edema and fragmentation without significant cord compression. WBC Scan Nuclear Medicine 11/04/19 00:00 IMPRESSION: No scintigraphic evidence of an active infection. Assessment & Plan - Diagnosis (1) MRSA (methicillin resistant Staphylococcus aureus) septicemia Is this a current diagnosis for this admission?: Yes Plan: Continue treatment With IV vancomycin (2) Neoplasm of uncertain behavior of right kidney Is this a current diagnosis for this admission?: Yes (3) End stage renal disease on dialysis Is this a current diagnosis for this admission?: Yes (4) Lytic lesion of bone on x-ray Is this a current diagnosis for this admission?: Yes (5) Atrial flutter Qualifiers: Atrial flutter type: typical Qualified Code(s): I48.3 - Typical atrial flutter Is this a current diagnosis for this admission?: Yes (6) Metabolic encephalopathy Is this a current diagnosis for this admission?: Yes (7) Aortic valve regurgitation Qualifiers: Cardiac valve disease etiology: nonrheumatic Qualified Code(s): I35.1 - Nonrheumatic aortic (valve) insufficiency Is this a current diagnosis for this admission?: Yes (8) Endocarditis of mitral valve Is this a current diagnosis for this admission?: Yes (9) Discitis of cervical region Is this a current diagnosis for this admission?: Yes - Time Time Spent with patient: 15-24 minutes Level of Care: IMCU
[2019-11-04] MEDS: FAMOTIDINE 20 MG TABLET PO SCH (22:09)
[2019-11-05] MEDS ORDERED: HEPARIN SOD (PORCINE) 1,000 UNIT/ML 10 ML VIAL IV PRN (05:00)
[2019-11-05] MEDS ORDERED: EPOETIN ALFA-EPBX 2,000 UNIT, EPOETIN ALFA-EPBX 3,000 UNIT, EPOETIN ALFA-EPBX 20,000 UN... IV PRN ×4 (05:00)
[2019-11-05] MEDS ORDERED: NORMAL SALINE 1000 ML 1,000 ML IV PRN (05:00)
[2019-11-05] MEDS: CLONIDINE HCL 0.1 MG TABLET PO SCH ×3 (05:01→21:16)
[2019-11-05 06:56] LABS: ABSOLUTE BASOPHILS # (AUTO) 0.1 10^3/uL (0.0-0.2); ABSOLUTE EOSINOPHILS # (AUTO) 0.2 10^3/uL (0.0-0.6); ABSOLUTE LYMPHOCYTES (AUTO) 0.9 10^3/uL (0.5-4.7); ABSOLUTE NEUT (AUTO) 7.1 10^3/uL (1.7-8.2); BASOPHILS % (AUTO) 0.9 % (0-2); HEMATOCRIT 28.3 % (37.9-51.0); HEMOGLOBIN 9.7 g/dL (13.5-17.0); LYMPHOCYTES % (AUTO) 10.1 % (13-45); MEAN CORPUSCULAR HEMOGLOBIN 29.8 pg (27.0-33.4); MEAN CORPUSCULAR HGB CONC 34.2 g/dL (32.0-36.0); MEAN CORPUSCULAR VOLUME 87 fl (80-97); MONOCYTES % (AUTO) 10.7 % (3-13); PLATELET COUNT 272 10^3/uL (150-450); RED BLOOD COUNT 3.25 10^6/uL (4.35-5.55); RED CELL DISTRIBUTION WIDTH 14.8 % (11.5-14.0); SEGMENTED NEUTROPHILS % (AUTO) 76.3 % (42-78); TOTAL CELLS COUNTED % (AUTO) 100 %; WHITE BLOOD COUNT 9.3 10^3/uL (4.0-10.5)
[2019-11-05 07:08] LABS: ANION GAP 16 (5-19); BLOOD UREA NITROGEN 58 mg/dL (7-20); CALCIUM 9.5 mg/dL (8.4-10.2); CARBON DIOXIDE 25 mmol/L (22-30); CHLORIDE 91 mmol/L (98-107); GLUCOSE 104 mg/dL (75-110); POTASSIUM 4.5 mmol/L (3.6-5.0)
--- NOTE | 2019-11-05 13:47 | PDOC PROGRESS REPORT ---
Subjective Progress Note for:: 11/05/19 Subjective:: I am seeing the patient during dialysis treatment. The only complaint that he has is his ongoing neck pain. Otherwise he is stable and tolerating dialysis without any problems today. He was accepted for transfer at [facility] but there is still waiting for a bed. He was denied acceptance at [facility] unfortunately. His WBC scan is negative for any focus of infection with attention to the right arm possible previous AV graft. The blood culture 2 days ago on November 03 so far has 1 bottle growing MRSA and the other one is still saying negative. Ideally his left PermCath should be removed but her vascular surgeon is having difficulty establishing another access. Hopefully the patient can be transferred to [facility] anytime soon. Reason For Visit: RENAL MASS/ESRD/BACK PAIN Physical Exam Vital Signs: Temp Pulse Resp BP Pulse Ox 98.2 F 60 18 131/60 H 100 11/05/19 03:38 11/05/19 07:00 11/05/19 03:38 11/05/19 03:38 11/05/19 03:38 Intake & Output 11/04/19 11/05/19 11/06/19 06:59 06:59 06:59 Intake Total 2686 1161 Output Total 3000 Balance -314 1161 Weight 80.6 kg Vitals during dialysis: Blood pressure 147/67, heart rate of 86, blood flow rate of 350 mL/min and dialysate flow rate of 800 mL/min. Exam: General appearance: PRESENT: no acute distress, cooperative, well-developed, well-nourished Head exam: PRESENT: atraumatic, normocephalic Eye exam: PRESENT: conjunctiva slightly pale, PERRLA. ABSENT: scleral icterus Neck exam: ABSENT: JVD Respiratory exam: PRESENT: Normal breath sounds. ABSENT: crackles, rales, rhonchi, unlabored, wheezes Cardiovascular exam: PRESENT: Regular rate rhythm -+S1, +S2. Grade 2/6 systolic murmur GI/Abdominal exam: PRESENT: normal bowel sounds, soft. ABSENT: guarding, mass, tenderness Extremities exam: Grade 1 bilateral lower extremity pitting edema, unchanged right arm chronic lymphedema. Neurological exam: PRESENT: alert, awake, oriented to person, place and time. Skin exam: PRESENT: dry, warm, Cardiovascular exam: PRESENT: +S1, +S2 GI/Abdominal exam: PRESENT: normal bowel sounds, soft. ABSENT: organomegaly, tenderness Results Laboratory Results: 11/05/19 05:56 11/05/19 05:56 11/05/19 11/05/19 05:56 05:56 WBC 9.3 RBC 3.25 L Hgb 9.7 L Hct 28.3 L MCV 87 MCH 29.8 MCHC 34.2 RDW 14.8 H Plt Count 272 Seg Neutrophils % 76.3 Sodium 132.3 L Potassium 4.5 Chloride 91 L Carbon Dioxide 25 Anion Gap 16 BUN 58 H Creatinine 11.41 H Est GFR ( Amer) 6 L Glucose 104 Calcium 9.5 11/03/19 09:00 Blood Blood Culture (PCR) - Final Staphylococcus Aureus 10/09/19 10/09/19 23:16 23:16 Creatine Kinase 121 CK-MB (CK-2) 0.57 Troponin I 0.112 Impressions: Abdomen/Pelvis CT 10/10/19 00:00 IMPRESSION: Prominent axillary nodes. Not definitely pathologic. Indeterminate nodes in the mediastinum. Solid right renal mass measuring over 6 cm. Atrophic kidneys. Probable Schmorl's noted L1. Well-circumscribed along the superior endplate wi thout extension into the pedicles. Chest CT 10/10/19 00:00 IMPRESSION: Prominent axillary nodes. Not definitely pathologic. Indeterminate nodes in the mediastinum. Solid right renal mass measuring over 6 cm. Atrophic kidneys. Probable Schmorl's noted L1. Well-circumscribed along the superior endplate without extension into the pedicles. Lumbar Spine CT 10/10/19 03:49 IMPRESSION: 1. Solid-appearing mass at the upper pole of the right kidney, which has increased in size compared to the prior study. This is most compatible with malignancy. Recommend correlation with clinical history. 2. New lytic lesion within the L1 vertebral body, suggesting metastatic disease. 3. No acute fracture. Lumbar Spine MRI 10/10/19 06:22 IMPRESSION: 1. HOMOGENEOUS ROUND LESION IN THE SUPERIOR BODY OF THE L1 VERTEBRAL BODY DESCRIBED. THIS IS CONCERNING FOR A METASTATIC LESION. AN ATYPICAL SCHMORL'S NODE COULD BE ANOTHER POSSIBILITY BUT LESS LIKELY. MAY CONSIDER BONE SCAN TO EVALUATE THE FINDING IN THE L1 VERTEBRAL BODY AND TO DETERMINE IF THERE ARE ANY OTHER SKELETAL LESIONS IN THE REMAINDER OF THE BODY. 2. MILD CHRONIC DEGENERATIVE CHANGES DESCRIBED. NO SIGNIFICANT STENOSIS OR IMPINGEMENT. 3. HETEROGENOUS MASS IN THE RIGHT KIDNEY, NOT COMPLETELY IMAGED. Thoracic Spine MRI 10/10/19 06:22 IMPRESSION: NORMAL MRI THORACIC SPINE. NO EVIDENCE OF THORACIC VERTEBRAL META STASIS. Chest X-Ray 10/16/19 10:42 IMPRESSION: Mild atelectasis at left lung base. Shoulder X-Ray 10/24/19 00:00 IMPRESSION: No acute or suspicious radiographic findings. Central Venous Line 10/26/19 00:00 IMPRESSION: IMAGE(S) OBTAINED DURING PROCEDURE. Cervical Spine MRI 10/31/19 00:00 IMPRESSION: Worrisome findings at C1-2 and C3-4. Possible infection, tumor. Some edema and fragmentation without significant cord compression. WBC Scan Nuclear Medicine 11/04/19 00:00 IMPRESSION: No scintigraphic evidence of an active infection. Assessment & Plan - Diagnosis (1) MRSA (methicillin resistant Staphylococcus aureus) septicemia Is this a current diagnosis for this admission?: Yes Plan: Patient is currently on vancomycin since 10/14/2019. Original PermCath was removed on 10/19, and the right inguinal dialysis catheter removed on 10/30 . [place] showed mitral valve endocarditis. Patient would need at least 6 weeks of IV antibiotics with vancomycin. Most recent repeat blood cultures on October 27 and November 03 was still posit ronnie for MRSA. WBC scan was negative for any active focus of infection. I think the patient will be better served to be transferred with tertiary care and currently being accepted at [facility] but just waiting for the bed. (2) Endocarditis of mitral valve Is this a current diagnosis for this admission?: Yes Plan: Diagnosed via [place] on 10/21/2019. Patient needs to be evaluated by cardiothoracic surgery eventually (3) End stage renal disease on dialysis Is this a current diagnosis for this admission?: Yes Plan: We will do dialysis today for 3 hours, using the patient's left inguinal PermCath, with 2 potassium bath, blood flow rate of 350 mL per minute, dialysate flow rate of 800 mL per minute, ultrafiltration 2 L as tolerated, no heparin and Procrit with 25,000 units during dialysis intravenously. Patient will be monitored throughout dialysis treatment. (4) Anemia in chronic kidney disease (CKD) Is this a current diagnosis for this admission?: Yes Plan: Retacrit being given during dialysis treatment. (5) Renal mass, right Is this a current diagnosis for this admission?: Yes Plan: Patient being evaluated by Dr. Bermeo, oncologist. Biopsy was placed on hold due to bacteremia. (6) Lytic lesion of bone on x-ray Is this a current diagnosis for this admission?: Yes Plan: This involves L1. The plan is to do kyphoplasty by Dr. Billings but again this is put on hold due to the patient's current bacteremia. (7) Hyperkalemia Is this a current diagnosis for this admission?: Yes Plan: We will use low potassium bath during dialysis treatment. Continue Veltassa and low potassium diet. (8) Hypertension Is this a current diagnosis for this admission?: Yes Plan: Well-controlled. (9) Discitis of cervical region Is this a current diagnosis for this admission?: Yes Plan: Consideration for this finding causing neck pain include possible septic emboli versus metastasis. (10) Paroxysmal atrial flutter Is this a current diagnosis for this admission?: Yes (11) Lymphedema of right upper extremity Is this a current diagnosis for this admission?: Yes Plan: This is chronic. (12) Metabolic encephalopathy Is this a current diagnosis for this admission?: Yes Plan: Resolved. - Time Time with patient: 15-25 minutes
[2019-11-05] MEDS ORDERED: LIDOCAINE 1% INJ-PF (10 MG/ML) 30 ML SDV ONE (15:47)
[2019-11-05] MEDS: AMIODARONE HCL 200 MG TABLET PO SCH (16:33)
[2019-11-05] MEDS: DOCUSATE SODIUM 100 MG CAPSULE PO SCH (16:33)
[2019-11-05] MEDS: PATIROMER 8.4 GM SUSP PACKET PO SCH (17:06)
--- NOTE | 2019-11-05 17:31 | Operative Report ---
Nonrecallable Operative Report DATE OF SURGERY: 11/05/19 PREOPERATIVE DIAGNOSIS: infected dialysis catheter POSTOPERATIVE DIAGNOSIS: infection of dialysis catheter OPERATION: removal of dialysis catheter left groin SURGEON: JUAN DELGADILLO ANESTHESIA: Local TISSUE REMOVED OR ALTERED: none COMPLICATIONS: none ESTIMATED BLOOD LOSS: 0 INTRAOPERATIVE FINDINGS: see note PROCEDURE: Procedure was done with the patient was lying in his hospital bed. The left groin was prepped and draped with Betadine. The permacath catheter that was within the left groin was sutured in place with a single nylon suture. Appropriate timeout site verification procedure commenced. The suture was removed with a sterile scissors. The catheter then easily slipped from the groin and pressure was held on the left groin for venous bleeding. The tip of the catheter was placed in a sterile container and sent for culture. Sterile dressing was applied to the left groin. Patient tolerated procedure well.
[2019-11-05] MEDS: FAMOTIDINE 20 MG TABLET PO SCH (21:15)
--- NOTE | 2019-11-05 22:10 | PDOC PROGRESS REPORT ---
Subjective Progress Note for:: 11/05/19 Subjective:: Patient with persistent MRSA bacteremia, the dialysis catheter was removed today, still awaiting a bed at [facility] Reason For Visit: RENAL MASS/ESRD/BACK PAIN Physical Exam Vital Signs: Temp Pulse Resp BP Pulse Ox 99.3 F 72 16 101/56 L 98 11/05/19 15:54 11/05/19 15:54 11/05/19 15:54 11/05/19 15:54 11/05/19 15:54 Intake & Output 11/04/19 11/05/19 11/06/19 06:59 06:59 06:59 Intake Total 2686 1161 1560 Output Total 3000 3000 Balance -314 1161 -1440 Weight 80.6 kg 80.6 kg General appearance: PRESENT: no acute distress Eye exam: PRESENT: PERRLA Respiratory exam: PRESENT: clear to auscultation dave Cardiovascular exam: PRESENT: +S1, +S2 GI/Abdominal exam: PRESENT: soft Neurological exam: PRESENT: alert Results Laboratory Results: 11/05/19 05:56 11/05/19 05:56 11/05/19 11/05/19 05:56 05:56 WBC 9.3 RBC 3.25 L Hgb 9.7 L Hct 28.3 L MCV 87 MCH 29.8 MCHC 34.2 RDW 14.8 H Plt Count 272 Seg Neutrophils % 76.3 Sodium 132.3 L Potassium 4.5 Chloride 91 L Carbon Dioxide 25 Anion Gap 16 BUN 58 H Creatinine 11.41 H Est GFR ( Amer) 6 L Glucose 104 Calcium 9.5 11/03/19 09:00 Blood Blood Culture (PCR) - Final Staphylococcus Aureus 10/09/19 10/09/19 23:16 23:16 Creatine Kinase 121 CK-MB (CK-2) 0.57 Troponin I 0.112 Impressions: Abdomen/Pelvis CT 10/10/19 00:00 IMPRESSION: Prominent axillary nodes. Not definitely pathologic. Indeterminate nodes in the mediastinum. Solid right renal mass measuring over 6 cm. Atrophic kidneys. Probable Schmorl's noted L1. Well-circumscribed along the superior endplate without extension into the pedicles. Chest CT 10/10/19 00:00 IMPRESSION: Prominent axillary nodes. Not definitely pathologic. Indeterminate nodes in the mediastinum. Solid right renal mass measuring over 6 cm. Atrophic kidneys. Probable Schmorl's noted L1. Well-circumscribed along the superior endplate without extension into the pedicles. Lumbar Spine CT 10/10/19 03:49 IMPRESSION: 1. Solid-appearing mass at the upper pole of the right kidney, which has increased in size compared to the prior study. This is most compatible with malignancy. Recommend correlation with clinical history. 2. New lytic lesion within the L1 vertebral body, suggesting metastatic disease. 3. No acute fracture. Lumbar Spine MRI 10/10/19 06:22 IMPRESSION: 1. HOMOGENEOUS ROUND LESION IN THE SUPERIOR BODY OF THE L1 VERTEBRAL BODY DESCRIBED. THIS IS CONCERNING FOR A METASTATIC LESION. AN ATYPICAL SCHMORL'S NODE COULD BE ANOTHER POSSIBILITY BUT LESS LIKELY. MAY CONSIDER BONE SCAN TO EVALUATE THE FINDING IN THE L1 VERTEBRAL BODY AND TO DETERMINE IF THERE ARE ANY OTHER SKELETAL LESIONS IN THE REMAINDER OF THE BODY. 2. MILD CHRONIC DEGENERATIVE CHANGES DESCRIBED. NO SIGNIFICANT STENOSIS OR IMPINGEMENT. 3. HETEROGENOUS MASS IN THE RIGHT KIDNEY, NOT COMPLETELY IMAGED. Thoracic Spine MRI 10/10/19 06:22 IMPRESSION: NORMAL MRI THORACIC SPINE. NO EVIDENCE OF THORACIC VERTEBRAL METASTASIS. Chest X-Ray 10/16/19 10:42 IMPRESSION: Mild atelectasis at left lung base. Shoulder X-Ray 10/24/19 00:00 IMPRESSION: No acute or suspicious radiographic findings. Central Venous Line 10/26/19 00:00 IMPRESSION: IMAGE(S) OBTAINED DURING PROCEDURE. Cervical Spine MRI 10/31/19 00:00 IMPRESSION: Worrisome findings at C1-2 and C3-4. Possible infection, tumor. Some edema and fragmentation without significant cord compression. WBC Scan Nuclear Medicine 11/04/19 00:00 IMPRESSION: No scintigraphic evidence of an active infection. 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 Is this a current diagnosis for this admission?: Yes (3) End stage renal disease on dialysis Is this a current diagnosis for this admission?: Yes (4) Lytic lesion of bone on x-ray Is this a current diagnosis for this admission?: Yes (5) Atrial flutter Qualifiers: Atrial flutter type: typical Qualified Code(s): I48.3 - Typical atrial flutter Is this a current diagnosis for this admission?: Yes (6) Metabolic encephalopathy Is this a current diagnosis for this admission?: Yes (7) Aortic valve regurgitation Qualifiers: Cardiac valve disease etiology: nonrheumatic Qualified Code(s): I35.1 - Nonrheumatic aortic (valve) insufficiency Is this a current diagnosis for this admission?: Yes (8) Endocarditis of mitral valve Is this a current diagnosis for this admission?: Yes (9) Discitis of cervical region Is this a current diagnosis for this admission?: Yes - Time Time Spent with patient: 15-24 minutes
--- NOTE | 2019-11-05 23:31 | Progress Note ---
Provider Note Provider Note: CARDIOLOGY PROGRESS NOTE by Dr. Amanda Dumont on 11/05/2019. I have been asked to see the patient again due to patient heart rate being in the 30s last night. SUBJECTIVE: The patient was noticed to have a heart rate in 30s when he is asleep with a stable blood pressure. The patient is asymptomatic from that. At present his heart rate is much improved. Most likely secondary to high vagal tone due to patient sleeping. The patient remains in sinus rhythm. There is no recurrence of atrial flutter. He is still awaiting a bed for transfer to [facility]. He had a left dialysis catheter removed today. There is no peripheral embolization. There is no TIA CVA symptoms. PHYSICAL EXAMINATION: The patient appears to be chronically ill. In no acute distress. Selected Entries 11/05/19 12:10 Temperature 97.6 F Temperature Oral Source Pulse Rate 72 Respiratory 16 Rate Blood Pressure 110/57 L Blood Pressure 74 Mean BP Location Left Arm BP Position Sitting O2 Sat by Pulse 100 Oximetry Oxygen Delivery Room Air Method HEAD: Is atraumatic and normocephalic. EYES: Pupils are equal round regular reactive to light accommodation. External ocular movements are normal. There is no conjunctival pallor. There is no scleral icterus. EARS: Tympanic membranes are intact. External auditory canals are clear. NOSE: There is no deviated nasal septum. There is no inflammation of the nasal mucous membrane. MOUTH: Mucous membranes of mouth are moist. Tongue is moist. There is no ulcers in the mouth. There is no bleeding from the gums. THROAT: There is no redness of the oropharynx. There is no exudates. SKIN: There is no skin rashes. There is no petechia or ecchymosis. There is no skin lesions. NECK: Is supple. There is no JVD. Carotids equal there is no bruit. There is no lymphadenopathy. Trachea central. LUNGS: Lungs are clear to auscultation percussion, without any rhonchi rales or wheezing. THERE IS NO CHEST WALL TENDERNESS. Heart: S1, S2 heard normally. There is no S3 gallop. There is no S4 gallop. There is systolic murmur left sternal border and apex. Murmur of mitral regurgitation heard. . There is no rub. ABDOMEN: Soft. Nontender. There is no hepatosplenomegaly. All sounds are well heard. There is no tender areas of masses. EXTREMITIES: Femorals are diminished. There is no femoral bruits. Leg pulses are diminished. There is no pedal edema. There is diffuse swelling of the right upper extremity. There is no DVT or cellulitis. There is no cyanosis or clubbing. There is no calf tenderness. SHUTTLE SPOTTER: The patient is conscious awake drowsy, but with with no focal deficits. PSYCHIATRIC: The patient is not agitated or anxious. Labs- All tests 24 hr 11/05/19 11/05/19 05:56 05:56 WBC 9.3 RBC 3.25 L Hgb 9.7 L Hct 28.3 L MCV 87 MCH 29.8 MCHC 34.2 RDW 14.8 H Plt Count 272 Lymph % (Auto) 10.1 L Crane % (Auto) 10.7 Eos % (Auto) 2.0 Baso % (Auto) 0.9 Absolute Neuts (auto) 7.1 Absolute Lymphs (auto) 0.9 Absolute Monos (auto) 1.0 Absolute Eos (auto) 0.2 Absolute Basos (auto) 0.1 Seg Neutrophils % 76.3 Sodium 132.3 L Potassium 4.5 Chloride 91 L Carbon Dioxide 25 Anion Gap 16 BUN 58 H Creatinine 11.41 H Est GFR ( Amer) 6 L Est GFR (MDRD) Non-Af 5 L Glucose 104 Calcium 9.5 Abdomen/Pelvis CT 10/10/19 00:00 IMPRESSION: Prominent axillary nodes. Not definitely pathologic. Indeterminate nodes in the mediastinum. Solid right renal mass measuring over 6 cm. Atrophic kidneys. Probable Schmorl's noted L1. Well-circumscribed along the superior endplate without extension into the pedicles. Chest CT 10/10/19 00:00 IMPRESSION: Prominent axillary nodes. Not definitely pathologic. Indeterminate nodes in the mediastinum. Solid right renal mass measuring over 6 cm. Atrophic kidneys. Probable Schmorl's noted L1. Well-circumscribed along the superior endplate without extension into the pedicles. Lumbar Spine CT 10/10/19 03:49 IMPRESSION: 1. Solid-appearing mass at the upper pole of the right kidney, which has increased in size compared to the prior study. This is most compatible with malignancy. Recommend correlation with clinical history. 2. New lytic lesion within the L1 vertebral body, suggesting metastatic disease. 3. No acute fracture. Lumbar Spine MRI 10/10/19 06:22 IMPRESSION: 1. HOMOGENEOUS ROUND LESION IN THE SUPERIOR BODY OF THE L1 VERTEBRAL BODY DESCRIBED. THIS IS CONCERNING FOR A METASTATIC LESION. AN ATYPICAL SCHMORL'S NODE COULD BE ANOTHER POSSIBILITY BUT LESS LIKELY. MAY CONSIDER BONE SCAN TO EVALUATE THE FINDING IN THE L1 VERTEBRAL BODY AND TO DETERMINE IF THERE ARE ANY OTHER SKELETAL LESIONS IN THE REMAINDER OF THE BODY. 2. MILD CHRONIC DEGENERATIVE CHANGES DESCRIBED. NO SIGNIFICANT STENOSIS OR IMPINGEMENT. 3. HETEROGENOUS MASS IN THE RIGHT KIDNEY, NOT COMPLETELY IMAGED. Thoracic Spine MRI 10/10/19 06:22 IMPRESSION: NORMAL MRI THORACIC SPINE. NO EVIDENCE OF THORACIC VERTEBRAL METASTASIS. Chest X-Ray 10/16/19 10:42 IMPRESSION: Mild atelectasis at left lung base. Shoulder X-Ray 10/24/19 00:00 IMPRESSION: No acute or suspicious radiographic findings. Central Venous Line 10/26/19 00:00 IMPRESSION: IMAGE(S) OBTAINED DURING PROCEDURE. Cervical Spine MRI 10/31/19 00:00 IMPRESSION: Worrisome findings at C1-2 and C3-4. Possible infection, tumor. Some edema and fragmentation without significant cord compression. WBC Scan Nuclear Medicine 11/04/19 00:00 IMPRESSION: No scintigraphic evidence of an active infection. IMPRESSION/RECOMMENDATION: 1. Asymptomatic bradycardia. Will observe. Continue the patient on amiodarone to prevent recurrence of atrial flutter. 2. 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 Patient for dialysis of the right leg lesion. Hence the patient's Eliquis has been discontinued. Most likely will have the biopsy as an outpatient. 3. Recent recurrent atrial flutter with rapid ventricular response. Patient back to sinus rhythm post IV amiodarone drip which is been discontinued. Will decrease the patient's amiodarone to 200 mg p.o. once daily. Patient has history of proximal small atrial flutter. We will cut back the patient's amiodarone to 200 mg once a day. 4. Hyperkalemia in a patient with end-stage renal disease. The patient is getting dialyzed. 5. . History of congestive heart failure secondary to volume overload during prior admission. At present compensated. 6. Hypertension: At present uncontrolled continue current medications. Increase the patient's clonidine to 0.1 mg p.o. every 8 hours. 7. END STAGE RENAL DISEASE: On hemodialysis. 8. History of hyperlipidemia. Continue statins 9. Murmur of mitral regurgitation: Mild mitral regurgitation by echocardiography. 10. Hyperkalemia: Nephrology on the case. 11. Moderate pulmonary hypertension. 12. 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 Clinically and by NEWTON no significant mitral regurgitation. Continue antibiotics. Medications reviewed. Continue amiodarone current dosage. Will observe patient. Medical regimen and management plan discussed with Dr. Hannon. Medical decision making is a moderate complexity. 40 minutes spent as patient more than 50% of time spent in direct patient care. Will follow. Discussed with attending physician Dr. Hannon.
[2019-11-06] MEDS: CLONIDINE HCL 0.1 MG TABLET PO SCH ×3 (06:11→21:08)
[2019-11-06] MEDS: DOCUSATE SODIUM 100 MG CAPSULE PO SCH (09:39)
[2019-11-06] MEDS: AMIODARONE HCL 200 MG TABLET PO SCH (09:44)
[2019-11-06] MEDS: PATIROMER 8.4 GM SUSP PACKET PO SCH (16:27)
--- NOTE | 2019-11-06 17:16 | PDOC PROGRESS REPORT ---
Subjective Progress Note for:: 11/06/19 Subjective:: Patient seen by the bedside, still waiting for a bed at [facility], presently he has no dialysis catheter, this was discontinued on Friday because of persistent MRSA bacteremia, he will need a temporary dialysis catheter for dialysis. Reason For Visit: RENAL MASS/ESRD/BACK PAIN Physical Exam Vital Signs: Temp Pulse Resp BP Pulse Ox 98.5 F 58 L 16 93/48 L 92 11/06/19 15:36 11/06/19 15:36 11/06/19 15:36 11/06/19 15:36 11/06/19 15:36 Intake & Output 11/05/19 11/06/19 11/07/19 06:59 06:59 06:59 Intake Total 1161 1920 Output Total 3000 Balance 1161 -1080 Weight 80.6 kg 86 kg General appearance: PRESENT: no acute distress Eye exam: PRESENT: PERRLA Respiratory exam: PRESENT: clear to auscultation dave Cardiovascular exam: PRESENT: +S1, +S2 GI/Abdominal exam: PRESENT: soft Neurological exam: PRESENT: alert Results Laboratory Results: 11/05/19 05:56 11/05/19 05:56 11/03/19 09:00 Blood Blood Culture (PCR) - Final Staphylococcus Aureus 10/09/19 10/09/19 23:16 23:16 Creatine Kinase 121 CK-MB (CK-2) 0.57 Troponin I 0.112 Impressions: Abdomen/Pelvis CT 10/10/19 00:00 IMPRESSION: Prominent axillary nodes. Not definitely pathologic. Indeterminate nodes in the mediastinum. Solid right renal mass measuring over 6 cm. Atrophic kidneys. Probable Schmorl's noted L1. Well-circumscribed along the superior endplate without extension into the pedicles. Chest CT 10/10/19 00:00 IMPRESSION: Prominent axillary nodes. Not definitely pathologic. Indeterminate nodes in the mediastinum. Solid right renal mass measuring over 6 cm. Atrophic kidneys. Probable Schmorl's noted L1. Well-circumscribed along the superior endplate without extension into the pedicles. Lumbar Spine CT 10/10/19 03:49 IMPRESSION: 1. Solid-appearing mass at the upper pole of the right kidney, which has increased in size compared to the prior study. This is most compatible with malignancy. Recommend correlation with clinical history. 2. New lytic lesion within the L1 vertebral body, suggesting metastatic disease. 3. No acute fracture. Lumbar Spine MRI 10/10/19 06:22 IMPRESSION: 1. HOMOGENEOUS ROUND LESION IN THE SUPERIOR BODY OF THE L1 VERTEBRAL BODY DESCRIBED. THIS IS CONCERNING FOR A METASTATIC LESION. AN ATYPICAL SCHMORL'S NODE COULD BE ANOTHER POSSIBILITY BUT LESS LIKELY. MAY CONSIDER BONE SCAN TO EVALUATE THE FINDING IN THE L1 VERTEBRAL BODY AND TO DETERMINE IF THERE ARE ANY OTHER SKELETAL LESIONS IN THE REMAINDER OF THE BODY. 2. MILD CHRONIC DEGENERATIVE CHANGES DESCRIBED. NO SIGNIFICANT STENOSIS OR IMPINGEMENT. 3. HETEROGENOUS MASS IN THE RIGHT KIDNEY, NOT COMPLETELY IMAGED. Thoracic Spine MRI 10/10/19 06:22 IMPRESSION: NORMAL MRI THORACIC SPINE. NO EVIDENCE OF THORACIC VERTEBRAL METASTASIS. Chest X-Ray 10/16/19 10:42 IMPRESSION: Mild atelectasis at left lung base. Shoulder X-Ray 10/24/19 00:00 IMPRESSION: No acute or suspicious radiographic findings. Central Venous Line 10/26/19 00:00 IMPRESSION: IMAGE(S) OBTAINED DURING PROCEDURE. Cervical Spine MRI 10/31/19 00:00 IMPRESSION: Worrisome findings at C1-2 and C3-4. Possible infection, tumor. Some edema and fragmentation without significant cord compression. WBC Scan Nuclear Medicine 11/04/19 00:00 IMPRESSION: No scintigraphic evidence of an active infection. Assessment & Plan - Diagnosis (1) MRSA (methicillin resistant Staphylococcus aureus) septicemia Is this a current diagnosis for this admission?: Yes Plan: Continue present management (2) Neoplasm of uncertain behavior of right kidney Is this a current diagnosis for this admission?: Yes (3) End stage renal disease on dialysis Is this a current diagnosis for this admission?: Yes (4) Lytic lesion of bone on x-ray Is this a current diagnosis for this admission?: Yes (5) Atrial flutter Qualifiers: Atrial flutter type: typical Qualified Code(s): I48.3 - Typical atrial flutter Is this a current diagnosis for this admission?: Yes (6) Metabolic encephalopathy Is this a current diagnosis for this admission?: Yes (7) Aortic valve regurgitation Qualifiers: Cardiac valve disease etiology: nonrheumatic Qualified Code(s): I35.1 - Nonrheumatic aortic (valve) insufficiency Is this a current diagnosis for this admission?: Yes (8) Endocarditis of mitral valve Is this a current diagnosis for this admission?: Yes (9) Discitis of cervical region Is this a current diagnosis for this admission?: Yes - Time Time Spent with patient: 25-34 minutes
[2019-11-06] MEDS: FAMOTIDINE 20 MG TABLET PO SCH (21:08)
--- NOTE | 2019-11-06 21:24 | Progress Note ---
Provider Note Provider Note: CARDIOLOGY PROGRESS NOTE by Dr. Amanda Dumont on 11/06/2019. SUBJECTIVE: The patient has no further significant bradycardia. Occasionally heart rate goes into the mid 50s. His blood pressure is stable. The patient is asymptomatic from this. There is no recurrence of atrial flutter or fibrillation. There is no ventricular arrhythmia seen on the monitor. There is no peripheral embolization. PHYSICAL EXAMINATION: The patient appears to be chronically ill. He has lost a lot of weight this admission. At present he is of normal BSA. Selected Entries 11/06/19 11/06/19 11/06/19 11:01 11:55 15:36 Temperature 97.9 F 98.5 F Temperature Oral Oral Source Pulse Rate 58 L Heart Rate ( 57 Monitors) Respiratory 16 16 Rate Blood Pressure 110/46 L 93/48 L Blood Pressure 67 63 Mean BP Location Left Arm Left Arm BP Position Sitting Sitting O2 Sat by Pulse 92 Oximetry Oxygen Flow 2.50 3.00 Rate Oxygen Delivery Nasal Cannula Nasal Cannula Method HEAD: Is atraumatic and normocephalic. EYES: Pupils are equal round regular reactive to light accommodation. External ocular movements are normal. There is no conjunctival pallor. There is no scleral icterus. EARS: Tympanic membranes are intact. External auditory canals are clear. NOSE: There is no deviated nasal septum. There is no inflammation of the nasal mucous membrane. MOUTH: Mucous membranes of mouth are moist. Tongue is moist. There is no ulcers in the mouth. There is no bleeding from the gums. THROAT: There is no redness of the oropharynx. There is no exudates. SKIN: There is no skin rashes. There is no petechia or ecchymosis. There is no skin lesions. NECK: Is supple. There is no JVD. Carotids equal there is no bruit. There is no lymphadenopathy. Trachea central. LUNGS: Lungs are clear to auscultation percussion, without any rhonchi rales or wheezing. THERE IS NO CHEST WALL TENDERNESS. Heart: S1, S2 heard normally. There is no S3 gallop. There is no S4 gallop. There is systolic murmur left sternal border and apex. Murmur of mitral regurgitation heard. . There is no rub. ABDOMEN: Soft. Nontender. There is no hepatosplenomegaly. All sounds are well heard. There is no tender areas of masses. EXTREMITIES: Femorals are diminished. There is no femoral bruits. Leg pulses are diminished. There is no pedal edema. There is diffuse swelling of the right upper extremity. There is no DVT or cellulitis. There is no cyanosis or clubbing. There is no calf tenderness. PHYSICIAN NEONATOLOGY: The patient is conscious awake drowsy, but with with no focal deficits. PSYCHIATRIC: The patient is not agitated or anxious. Abdomen/Pelvis CT 10/10/19 00:00 IMPRESSION: Prominent axillary nodes. Not definitely pathologic. Indeterminate nodes in the mediastinum. Solid right renal mass measuring over 6 cm. Atrophic kidneys. Probable Schmorl's noted L1. Well-circumscribed along the superior endplate without extension into the pedicles. Chest CT 10/10/19 00:00 IMPRESSION: Prominent axillary nodes. Not definitely pathologic. Indeterminate nodes in the mediastinum. Solid right renal mass measuring over 6 cm. Atrophic kidneys. Probable Schmorl's noted L1. Well-circumscribed along the superior endplate without extension into the pedicles. Lumbar Spine CT 10/10/19 03:49 IMPRESSION: 1. Solid-appearing mass at the upper pole of the right kidney, which has increased in size compared to the prior study. This is most compatible with malignancy. Recommend correlation with clinical history. 2. New lytic lesion within the L1 vertebral body, suggesting metastatic disease. 3. No acute fracture. Lumbar Spine MRI 10/10/19 06:22 IMPRESSION: 1. HOMOGENEOUS ROUND LESION IN THE SUPERIOR BODY OF THE L1 VERTEBRAL BODY DESCRIBED. THIS IS CONCERNING FOR A METASTATIC LESION. AN ATYPICAL SCHMORL'S NODE COULD BE ANOTHER POSSIBILITY BUT LESS LIKELY. MAY CONSIDER BONE SCAN TO EVALUATE THE FINDING IN THE L1 VERTEBRAL BODY AND TO DETERMINE IF THERE ARE ANY OTHER SKELETAL LESIONS IN THE REMAINDER OF THE BODY. 2. MILD CHRONIC DEGENERATIVE CHANGES DESCRIBED. NO SIGNIFICANT STENOSIS OR IMPINGEMENT. 3. HETEROGENOUS MASS IN THE RIGHT KIDNEY, NOT COMPLETELY IMAGED. Thoracic Spine MRI 10/10/19 06:22 IMPRESSION: NORMAL MRI THORACIC SPINE. NO EVIDENCE OF THORACIC VERTEBRAL METASTASIS. Chest X-Ray 10/16/19 10:42 IMPRESSION: Mild atelectasis at left lung base. Shoulder X-Ray 10/24/19 00:00 IMPRESSION: No acute or suspicious radiographic findings. Central Venous Line 10/26/19 00:00 IMPRESSION: IMAGE(S) OBTAINED DURING PROCEDURE. Cervical Spine MRI 10/31/19 00:00 IMPRESSION: Worrisome findings at C1-2 and C3-4. Possible infection, tumor. Some edema and fragmentation without significant cord compression. WBC Scan Nuclear Medicine 11/04/19 00:00 IMPRESSION: No scintigraphic evidence of an active infection. IMPRESSION/RECOMMENDATION: 1. Asymptomatic bradycardia. No further episodes of marked sinus bradycardia. Continue the patient on amiodarone to prevent recurrence of atrial flutter. 2. 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 Patient for dialysis of the right leg lesion. Hence the patient's Eliquis has been discontinued. Most likely will have the biopsy as an outpatient. 3. Recent recurrent atrial flutter with rapid ventricular response. Patient back to sinus rhythm post IV amiodarone drip which is been discontinued. Will decrease the patient's amiodarone to 200 mg p.o. once daily. Patient has history of proximal small atrial flutter. We will cut back the patient's amiodarone to 200 mg once a day. 4. Hyperkalemia in a patient with end-stage renal disease. The patient is getting dialyzed. 5. . History of congestive heart failure secondary to volume overload during prior admission. At present compensated. 6. Hypertension: At present uncontrolled continue current medications. Increase the patient's clonidine to 0.1 mg p.o. every 8 hours. 7. END STAGE RENAL DISEASE: On hemodialysis. 8. History of hyperlipidemia. Continue statins 9. Murmur of mitral regurgitation: Mild mitral regurgitation by echocardiography. 10. Hyperkalemia: Nephrology on the case. 11. Moderate pulmonary hypertension. 12. 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 Clinically and by NEWTON no significant mitral regurgitation. Continue antibiotics. Medications reviewed. Continue amiodarone current dosage. Will observe patient. Medical regimen and management plan discussed with Dr. Hannon. Medical decision making is a moderate complexity. 40 minutes spent as patient more than 50% of time spent in direct patient care. Will sign off. Discussed with attending physician Dr. Hannon.
[2019-11-06] MEDS: DIPHENHYDRAMINE HCL 25 MG CAPSULE PO PRN (22:30)
[2019-11-07] MEDS: CLONIDINE HCL 0.1 MG TABLET PO SCH ×3 (06:53→23:10)
[2019-11-07] MEDS: DOCUSATE SODIUM 100 MG CAPSULE PO SCH (09:32)
[2019-11-07] MEDS: MORPHINE SULFATE 10 MG/ML INJ IV PRN ×2 (10:05→18:16)
[2019-11-07] MEDS: AMIODARONE HCL 200 MG TABLET PO SCH (11:52)
--- NOTE | 2019-11-07 15:07 | PDOC PROGRESS REPORT ---
Subjective Progress Note for:: 11/07/19 Subjective:: Patient seen by the bedside, still waiting for a bed at [facility], presently he has no dialysis catheter, this was discontinued on Friday because of persistent MRSA bacteremia, he will need a temporary dialysis catheter for dialysis. Reason For Visit: RENAL MASS/ESRD/BACK PAIN Physical Exam Vital Signs: Temp Pulse Resp BP Pulse Ox 97.7 F 64 17 129/57 H 100 11/07/19 11:35 11/07/19 14:00 11/07/19 11:35 11/07/19 14:24 11/07/19 11:35 Intake & Output 11/06/19 11/07/19 11/08/19 06:59 06:59 06:59 Intake Total 1920 902 240 Output Total 3000 0 Balance -1080 902 240 Weight 86 kg General appearance: PRESENT: no acute distress Eye exam: PRESENT: PERRLA Respiratory exam: PRESENT: clear to auscultation dave Cardiovascular exam: PRESENT: +S1, +S2 GI/Abdominal exam: PRESENT: soft Neurological exam: PRESENT: alert Results Laboratory Results: 11/05/19 05:56 11/05/19 05:56 11/03/19 09:00 Blood Blood Culture (PCR) - Final Staphylococcus Aureus 11/03/19 15:00 Blood Blood Culture (PCR) - Final Staphylococcus Aureus 10/09/19 10/09/19 23:16 23:16 Creatine Kinase 121 CK-MB (CK-2) 0.57 Troponin I 0.112 Impressions: Abdomen/Pelvis CT 10/10/19 00:00 IMPRESSION: Prominent axillary nodes. Not definitely pathologic. Indeterminate nodes in the mediastinum. Solid right renal mass measuring over 6 cm. Atrophic kidneys. Probable Schmorl's noted L1. Well-circumscribed along the superior endplate without extension into the pedicles. Chest CT 10/10/19 00:00 IMPRESSION: Prominent axillary nodes. Not definitely pathologic. Indeterminate nodes in the mediastinum. Solid right renal mass measuring over 6 cm. Atrophic kidneys. Probable Schmorl's noted L1. Well-circumscribed along the superior endplate without extension into the pedicles. Lumbar Spine CT 10/10/19 03:49 IMPRESSION: 1. Solid-appearing mass at the upper pole of the right kidney, which has increased in size compared to the prior study. This is most compatible with malignancy. Recommend correlation with clinical history. 2. New lytic lesion within the L1 vertebral body, suggesting metastatic disease. 3. No acute fracture. Lumbar Spine MRI 10/10/19 06:22 IMPRESSION: 1. HOMOGENEOUS ROUND LESION IN THE SUPERIOR BODY OF THE L1 VERTEBRAL BODY DESCRIBED. THIS IS CONCERNING FOR A METASTATIC LESION. AN ATYPICAL SCHMORL'S NODE COULD BE ANOTHER POSSIBILITY BUT LESS LIKELY. MAY CONSIDER BONE SCAN TO EVALUATE THE FINDING IN THE L1 VERTEBRAL BODY AND TO DETERMINE IF THERE ARE ANY OTHER SKELETAL LESIONS IN THE REMAINDER OF THE BODY. 2. MILD CHRONIC DEGENERATIVE CHANGES DESCRIBED. NO SIGNIFICANT STENOSIS OR IMPINGEMENT. 3. HETEROGENOUS MASS IN THE RIGHT KIDNEY, NOT COMPLETELY IMAGED. Thoracic Spine MRI 10/10/19 06:22 IMPRESSION: NORMAL MRI THORACIC SPINE. NO EVIDENCE OF THORACIC VERTEBRAL METASTASIS. Chest X-Ray 10/16/19 10:42 IMPRESSION: Mild atelectasis at left lung base. Shoulder X-Ray 10/24/19 00:00 IMPRESSION: No acute or suspicious radiographic findings. Central Venous Line 10/26/19 00:00 IMPRESSION: IMAGE(S) OBTAINED DURING PROCEDURE. Cervical Spine MRI 10/31/19 00:00 IMPRESSION: Worrisome findings at C1-2 and C3-4. Possible infection, tumor. Some edema and fragmentation without significant cord compression. WBC Scan Nuclear Medicine 11/04/19 00:00 IMPRESSION: No scintigraphic evidence of an active infection. 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 Is this a current diagnosis for this admission?: Yes (3) End stage renal disease on dialysis Is this a current diagnosis for this admission?: Yes (4) Lytic lesion of bone on x-ray Is this a current diagnosis for this admission?: Yes (5) Atrial flutter Qualifiers: Atrial flutter type: typical Qualified Code(s): I48.3 - Typical atrial flutter Is this a current diagnosis for this admission?: Yes (6) Metabolic encephalopathy Is this a current diagnosis for this admission?: Yes (7) Aortic valve regurgitation Qualifiers: Cardiac valve disease etiology: nonrheumatic Qualified Code(s): I35.1 - Nonrheumatic aortic (valve) insufficiency Is this a current diagnosis for this admission?: Yes (8) Endocarditis of mitral valve Is this a current diagnosis for this admission?: Yes (9) Discitis of cervical region Is this a current diagnosis for this admission?: Yes - Time Time Spent with patient: Less than 15 minutes - Plan Summary Plan Summary: Continue treatment
[2019-11-07] MEDS: PATIROMER 8.4 GM SUSP PACKET PO SCH (17:03)
[2019-11-07 19:08] LABS: VANCOMYCIN,TROUGH 14.5 ug/mL (5.0-20.0)
[2019-11-07] MEDS ORDERED: VANCOMYCIN HCL 500 MG in DEXTROSE 5%-WATER 100 ML IV ONE (19:52)
[2019-11-07] MEDS ORDERED: VANCOMYCIN HCL INJ 500 MG VIAL IV PRN (20:06)
[2019-11-07] MEDS ORDERED: NORMAL SALINE 10 ML SDV (AFTER EACH USE) IV PRN (21:00)
--- NOTE | 2019-11-07 21:58 | Operative Report ---
Operative Report DATE OF SURGERY: 11/07/19 PREOPERATIVE DIAGNOSIS: End-stage renal disease requiring hemodialysis POSTOPERATIVE DIAGNOSIS: Same OPERATION: Placement of right femoral vein dialysis catheter under ultrasound guidance SURGEON: RADHA ABEL ANESTHESIA: Local TISSUE REMOVED OR ALTERED: None COMPLICATIONS: None ESTIMATED BLOOD LOSS: 10 cc QUANTITATIVE BLOOD LOSS: 10 INTRAOPERATIVE FINDINGS: Normal common femoral vein on ultrasound PROCEDURE: After informed consent obtained patient was placed in supine position and the right groin prepped and draped in the usual sterile fashion. With the use the ultrasound the right femoral vein was then identified. Local anesthesia infiltrated in the skin overlying the vein. The vein was subsequently punctured and a guidewire passed through the needle towards the area of the inferior vena cava. The needle was removed and the puncture site dilated. Trialysis 30 cm catheter was then passed through the guidewire and threaded all the way to the hub. Was then anchored to the skin with 3-0 nylon. All the 3 ports aspirated blood easily and instilled saline easily also. A Biopatch placed at the insertion site and a transparent sterile dressing placed over the Biopatch and catheter. Patient tolerated procedure well.
[2019-11-07] MEDS: FAMOTIDINE 20 MG TABLET PO SCH (23:11)
[2019-11-07] MEDS: NORMAL SALINE 10 ML SDV (SCHEDULED) IV SCH (23:11)
[2019-11-08] MEDS: MORPHINE SULFATE 10 MG/ML INJ IV PRN ×2 (03:00→12:37)
--- NOTE | 2019-11-08 03:27 | RADIOLOGY REPORT (SQ) ---
EXAM: XR Abdomen, 1 View EXAM DATE/TIME: 11/08/2019 2:44 AM CLINICAL HISTORY: The patient is 58 years old and is Male; confirm femoral line placement TECHNIQUE: Frontal supine view of the abdomen/pelvis. COMPARISON: CT of abdomen and pelvis from 10/10/2019 FINDINGS: GASTROINTESTINAL TRACT: Moderate amount of colonic stool. No significant bowel dilatation visualized to suggest obstruction. BONES/JOINTS: No acute osseous findings. SOFT TISSUES: Unremarkable as visualized. TUBES, LINES AND DEVICES: Right femoral dialysis catheter in place, terminating in the IVC at the level of L3. IMPRESSION: No acute findings.
[2019-11-08] MEDS ORDERED: HEPARIN SOD (PORCINE) 1,000 UNIT/ML 10 ML VIAL IV PRN (05:00)
[2019-11-08] MEDS ORDERED: EPOETIN ALFA-EPBX 10,000 UNIT in SYRINGE, DISPOSABLE, 1 EACH IV PRN (05:00)
[2019-11-08] MEDS ORDERED: NORMAL SALINE 1000 ML 1,000 ML IV PRN (05:00)
[2019-11-08] MEDS: ACETAMINOPHEN 325 MG TABLET PO PRN (05:33)
[2019-11-08] MEDS: CLONIDINE HCL 0.1 MG TABLET PO SCH ×3 (05:34→23:20)
[2019-11-08 05:43] LABS: ABSOLUTE BASOPHILS # (AUTO) 0.1 10^3/uL (0.0-0.2); ABSOLUTE LYMPHOCYTES (AUTO) 0.6 10^3/uL (0.5-4.7); ABSOLUTE MONOCYTES (AUTO) 1.2 10^3/uL (0.1-1.4); ABSOLUTE NEUT (AUTO) 5.7 10^3/uL (1.7-8.2); BASOPHILS % (AUTO) 0.8 % (0-2); EOSINOPHILS % (AUTO) 0.6 % (0-6); HEMATOCRIT 24.5 % (37.9-51.0); HEMOGLOBIN 8.2 g/dL (13.5-17.0); LYMPHOCYTES % (AUTO) 7.8 % (13-45); MEAN CORPUSCULAR HEMOGLOBIN 28.8 pg (27.0-33.4); MEAN CORPUSCULAR HGB CONC 33.4 g/dL (32.0-36.0); MEAN CORPUSCULAR VOLUME 86 fl (80-97); MONOCYTES % (AUTO) 15.9 % (3-13); PLATELET COUNT 199 10^3/uL (150-450); RED BLOOD COUNT 2.84 10^6/uL (4.35-5.55); RED CELL DISTRIBUTION WIDTH 14.9 % (11.5-14.0); SEGMENTED NEUTROPHILS % (AUTO) 74.9 % (42-78); TOTAL CELLS COUNTED % (AUTO) 100 %; WHITE BLOOD COUNT 7.6 10^3/uL (4.0-10.5)
[2019-11-08 06:23] LABS: ANION GAP 15 (5-19); BLOOD UREA NITROGEN 66 mg/dL (7-20); CALCIUM 8.5 mg/dL (8.4-10.2); CARBON DIOXIDE 23 mmol/L (22-30); CHLORIDE 91 mmol/L (98-107); GLUCOSE 120 mg/dL (75-110)
[2019-11-08] MEDS: NORMAL SALINE 10 ML SDV (SCHEDULED) IV SCH ×3 (09:02→23:21)
[2019-11-08] MEDS: AMIODARONE HCL 200 MG TABLET PO SCH (09:02)
[2019-11-08] MEDS: DOCUSATE SODIUM 100 MG CAPSULE PO SCH (09:02)
[2019-11-08] MEDS ORDERED: VANCOMYCIN HCL 0 MG in DEXTROSE 5%-WATER 250 ML IV NR (09:15)
[2019-11-08] MEDS ORDERED: EPOETIN ALFA-EPBX 20,000 UNIT in SYRINGE, DISPOSABLE, 1 EACH IV PRN (09:32)
--- NOTE | 2019-11-08 09:41 | PDOC PROGRESS REPORT ---
Subjective Progress Note for:: 11/08/19 Subjective:: I am seeing the patient during dialysis. He still has his neck pain. He initially told me that he is doing fine but then tells me that he can put pressure on his feet and he is unsteady when he does. He related that he fell down yesterday trying to get up and holding the rails which came off and so when the rails gave way he fell on the floor. He said since then he felt like his right side is weak. Otherwise he denies any shortness of breath or chest pains. So far he is tolerating dialysis and he is hemodynamically stable. His left inguinal PermCath was removed last Friday due to persistent bacteremia. A new dialysis catheter was inserted last night. He still awaiting for the bed from [facility]. Reason For Visit: RENAL MASS/ESRD/BACK PAIN Physical Exam Vital Signs: Temp Pulse Resp BP Pulse Ox 97.9 F 62 16 121/66 100 11/08/19 07:41 11/08/19 07:41 11/08/19 07:41 11/08/19 07:41 11/08/19 07:41 Intake & Output 11/07/19 11/08/19 11/09/19 06:59 06:59 06:59 Intake Total 902 683 100 Output Total 0 0 Balance 902 683 100 Vitals during dialysis: Blood pressure 128/67, heart rate of 63, blood flow rate of 350 mL/min and dialysate flow rate of 800 mL/min. Exam: General appearance: PRESENT: no acute distress, cooperative, well-developed, well-nourished Head exam: PRESENT: atraumatic, normocephalic Eye exam: PRESENT: conjunctiva pale, PERRLA. ABSENT: scleral icterus Neck exam: ABSENT: JVD Respiratory exam: PRESENT: Normal breath sounds. ABSENT: crackles, rales, rhonchi, unlabored, wheezes Cardiovascular exam: PRESENT: Regular rate rhythm -+S1, +S2. Grade 3/6 systolic murmur GI/Abdominal exam: PRESENT: normal bowel sounds, soft. ABSENT: guarding, mass, tenderness Extremities exam: Bilateral grade 1 lower extremity pitting edema Neurological exam: PRESENT: alert, awake, oriented to person, place and time. He has right arm and right lower extremity weakness of about 4/5 compared to 5/5 in the left arm and left lower extremity. Skin exam: PRESENT: dry, warm, Cardiovascular exam: PRESENT: +S1, +S2 GI/Abdominal exam: PRESENT: normal bowel sounds, soft. ABSENT: organomegaly, tenderness Results Laboratory Results: 11/08/19 05:20 11/08/19 05:20 11/08/19 11/08/19 05:20 05:20 WBC 7.6 RBC 2.84 L Hgb 8.2 L Hct 24.5 L MCV 86 MCH 28.8 MCHC 33.4 RDW 14.9 H Plt Count 199 Seg Neutrophils % 74.9 Sodium 129.2 L Potassium 5.0 Chloride 91 L Carbon Dioxide 23 Anion Gap 15 BUN 66 H Creatinine 12.89 H Est GFR ( Amer) 5 L Glucose 120 H Calcium 8.5 11/03/19 15:00 Blood Blood Culture (PCR) - Final Staphylococcus Aureus 11/03/19 15:00 Blood Blood Culture - Final Mrsa (Meth Resis Staph Aureus) 11/03/19 09:00 Blood Blood Culture (PCR) - Final Staphylococcus Aureus 11/03/19 09:00 Blood Blood Culture - Final Mrsa (Meth Resis Staph Aureus) 10/09/19 10/09/19 23:16 23:16 Creatine Kinase 121 CK-MB (CK-2) 0.57 Troponin I 0.112 Impressions: Abdomen/Pelvis CT 10/10/19 00:00 IMPRESSION: Prominent axillary nodes. Not definitely pathologic. Indeterminate nodes in the mediastinum. Solid right renal mass measuring over 6 cm. Atrophic kidneys. Probable Schmorl's noted L1. Well-circumscribed along the superior endplate without extension into the pedicles. Chest CT 10/10/19 00:00 IMPRESSION: Prominent axillary nodes. Not definitely pathologic. Indeterminate nodes in the mediastinum. Solid right renal mass measuring over 6 cm. Atrophic kidneys. Probable Schmorl's noted L1. Well-circumscribed along the superior endplate without extension into the pedicles. Lumbar Spine CT 10/10/19 03:49 IMPRESSION: 1. Solid-appearing mass at the upper pole of the right kidney, which has increased in size compared to the prior study. This is most compatible with malignancy. Recommend correlation with clinical history. 2. New lytic lesion within the L1 vertebral body, suggesting metastatic disease. 3. No acute fracture. Lumbar Spine MRI 10/10/19 06:22 IMPRESSION: 1. HOMOGENEOUS ROUND LESION IN THE SUPERIOR BODY OF THE L1 VERTEBRAL BODY DESCRIBED. THIS IS CONCERNING FOR A METASTATIC LESION. AN ATYPICAL SCHMORL'S NODE COULD BE ANOTHER POSSIBILITY BUT LESS LIKELY. MAY CONSIDER BONE SCAN TO EVALUATE THE FINDING IN THE L1 VERTEBRAL BODY AND TO DETERMINE IF THERE ARE ANY OTHER SKELETAL LESIONS IN THE REMAINDER OF THE BODY. 2. MILD CHRONIC DEGENERATIVE CHANGES DESCRIBED. NO SIGNIFICANT STENOSIS OR IMPINGEMENT. 3. HETEROGENOUS MASS IN THE RIGHT KIDNEY, NOT COMPLETELY IMAGED. Thoracic Spine MRI 10/10/19 06:22 IMPRESSION: NORMAL MRI THORACIC SPINE. NO EVIDENCE OF THORACIC VERTEBRAL METASTASIS. Chest X-Ray 10/16/19 10:42 IMPRESSION: Mild atelectasis at left lung base. Shoulder X-Ray 10/24/19 00:00 IMPRESSION: No acute or suspicious radiographic findings. Central Venous Line 10/26/19 00:00 IMPRESSION: IMAGE(S) OBTAINED DURING PROCEDURE. Cervical Spine MRI 10/31/19 00:00 IMPRESSION: Worrisome findings at C1-2 and C3-4. Possible infection, tumor. Some edema and fragmentation without significant cord compression. WBC Scan Nuclear Medicine 11/04/19 00:00 IMPRESSION: No scintigraphic evidence of an active infection. KUB X-Ray 11/08/19 00:00 IMPRESSION: No acute findings. Assessment & Plan - Diagnosis (1) MRSA (methicillin resistant Staphylococcus aureus) septicemia Is this a current diagnosis for this admission?: Yes Plan: Patient is currently on vancomycin since 10/14/2019. Original PermCath was removed on 10/19, and the right inguinal dialysis catheter removed on 10/30 . Left inguinal PermCath removed on 11/05. [place] showed mitral valve endocarditis. Patient would need at least 6 weeks of IV antibiotics with vancomycin or more since the patient is persistently bacteremic despite almost 4 weeks of antibiotics. Most recent repeat blood cultures on October 27 and November 03 was still positive for MRSA. WBC scan was negative for any active focus of infection. I ordered another 2 sets of blood cultures yesterday. I think the patient will be better served to be transferred with tertiary care and currently being accepted at [facility] but just waiting for the bed. (2) Endocarditis of mitral valve Is this a current diagnosis for this admission?: Yes Plan: Diagnosed via [place] on 10/21/2019. Patient needs to be evaluated by cardiothoracic surgery eventually especially if he continues to be bacteremic without any other focus of infection after removing all catheters except for the trialysis catheter that he needs for dialysis currently. (3) End stage renal disease on dialysis Is this a current diagnosis for this admission?: Yes Plan: We will do dialysis today for 3 hours, using the patient's trialysis catheter, with 2 potassium bath, blood flow rate of 350 mL per minute, dialysate flow rate of 800 mL per minute, ultrafiltration 1 to 1.5 L as tolerated, no heparin and Procrit with 20,000 units during dialysis intravenously. Patient is currently monitored very closely. Ultrafiltration will be adjusted accordingly. (4) Anemia in chronic kidney disease (CKD) Is this a current diagnosis for this admission?: Yes Plan: Retacrit being given during dialysis treatment. (5) Hyperkalemia Is this a current diagnosis for this admission?: Yes Plan: We will use low potassium bath during dialysis treatment. Continue Veltassa and low potassium diet. (6) Hypertension Is this a current diagnosis for this admission?: Yes Plan: Well-controlled. (7) Discitis of cervical region Is this a current diagnosis for this admission?: Yes Plan: Consideration for this finding causing neck pain include possible septic emboli versus metastasis. (8) Hemiparesis Is this a current diagnosis for this admission?: Yes Plan: Patient has new finding of right-sided hemiparesis since yesterday after the fall. Discussed this with Dr. Hannon. Consideration would be a slipped disc from his cervical discitis versus TIA or stroke in evolution with possible se ptic emboli. Defer to Dr. Hannon for further management. (9) Renal mass, right Is this a current diagnosis for this admission?: Yes Plan: Patient being evaluated by Dr. Bermeo, oncologist. Biopsy was placed on hold due to bacteremia. (10) Lytic lesion of bone on x-ray Is this a current diagnosis for this admission?: Yes Plan: This involves L1. The plan is to do kyphoplasty by Dr. Billings but again this is put on hold due to the patient's current bacteremia. (11) Paroxysmal atrial flutter Is this a current diagnosis for this admission?: Yes (12) Lymphedema of right upper extremity Is this a current diagnosis for this admission?: Yes Plan: This is chronic. (13) Metabolic encephalopathy Is this a current diagnosis for this admission?: Yes Plan: Resolved. - Time Time with patient: 15-25 minutes
[2019-11-08] MEDS ORDERED: NORMAL SALINE 10 ML SDV (AFTER EACH USE) IV PRN (12:30)
[2019-11-08] MEDS ORDERED: LORAZEPAM INJ 2 MG/1 ML VIAL ONE (17:22)
--- NOTE | 2019-11-08 17:28 | PDOC PROGRESS REPORT ---
Subjective Progress Note for:: 11/08/19 Subjective:: Patient seen by the bedside, he had dialysis today, still waiting for bed from [facility], I received a call today from [facility], [place], patient on priority list for transfer. He fell yesterday, he has discitis of the cervical spine, there is some mild weakness of the right upper extremities, MRI of the neck will be repeated Reason For Visit: RENAL MASS/ESRD/BACK PAIN Physical Exam Vital Signs: Temp Pulse Resp BP Pulse Ox 100.8 F H 71 16 120/60 100 11/08/19 15:46 11/08/19 15:46 11/08/19 15:46 11/08/19 15:46 11/08/19 15:46 Intake & Output 11/07/19 11/08/19 11/09/19 06:59 06:59 06:59 Intake Total 589 049 8868 Output Total 0 0 2500 Balance 902 683 -1400 General appearance: PRESENT: no acute distress Eye exam: PRESENT: PERRLA Respiratory exam: PRESENT: clear to auscultation dave Cardiovascular exam: PRESENT: +S1, +S2 GI/Abdominal exam: PRESENT: soft Neurological exam: PRESENT: alert Results Laboratory Results: 11/08/19 05:20 11/08/19 05:20 11/08/19 11/08/19 05:20 05:20 WBC 7.6 RBC 2.84 L Hgb 8.2 L Hct 24.5 L MCV 86 MCH 28.8 MCHC 33.4 RDW 14.9 H Plt Count 199 Seg Neutrophils % 74.9 Sodium 129.2 L Potassium 5.0 Chloride 91 L Carbon Dioxide 23 Anion Gap 15 BUN 66 H Creatinine 12.89 H Est GFR ( Amer) 5 L Glucose 120 H Calcium 8.5 11/07/19 19:40 Blood Blood Culture (PCR) - Final Staphylococcus Aureus 11/05/19 16:20 Catheter Tip - Not Specified Catheter Tip Culture - Final Skin Talia 11/03/19 15:00 Blood Blood Culture (PCR) - Final Staphylococcus Aureus 11/03/19 15:00 Blood Blood Culture - Final Mrsa (Meth Resis Staph Aureus) 11/03/19 09:00 Blood Blood Culture (PCR) - Final Staphylococcus Aureus 11/03/19 09:00 Blood Blood Culture - Final Mrsa (Meth Resis Staph Aureus) 10/09/19 10/09/19 23:16 23:16 Creatine Kinase 121 CK-MB (CK-2) 0.57 Troponin I 0.112 Impressions: Abdomen/Pelvis CT 10/10/19 00:00 IMPRESSION: Prominent axillary nodes. Not definitely pathologic. Indeterminate nodes in the mediastinum. Solid right renal mass measuring over 6 cm. Atrophic kidneys. Probable Schmorl's noted L1. Well-circumscribed along the superior endplate without extension into the pedicles. Chest CT 10/10/19 00:00 IMPRESSION: Prominent axillary nodes. Not definitely pathologic. Indeterminate nodes in the mediastinum. Solid right renal mass measuring over 6 cm. Atrophic kidneys. Probable Schmorl's noted L1. Well-circumscribed along the superior endplate without extension into the pedicles. Lumbar Spine CT 10/10/19 03:49 IMPRESSION: 1. Solid-appearing mass at the upper pole of the right kidney, which has increased in size compared to the prior study. This is most compatible with malignancy. Recommend correlation with clinical history. 2. New lytic lesion within the L1 vertebral body, suggesting metastatic disease. 3. No acute fracture. Lumbar Spine MRI 10/10/19 06:22 IMPRESSION: 1. HOMOGENEOUS ROUND LESION IN THE SUPERIOR BODY OF THE L1 VERTEBRAL BODY DESCRIBED. THIS IS CONCERNING FOR A METASTATIC LESION. AN ATYPICAL SCHMORL'S NODE COULD BE ANOTHER POSSIBILITY BUT LESS LIKELY. MAY CONSIDER BONE SCAN TO EVALUATE THE FINDING IN THE L1 VERTEBRAL BODY AND TO DETERMINE IF THERE ARE ANY OTHER SKELETAL LESIONS IN THE REMAINDER OF THE BODY. 2. MILD CHRONIC DEGENERATIVE CHANGES DESCRIBED. NO SIGNIFICANT STENOSIS OR IMPINGEMENT. 3. HETEROGENOUS MASS IN THE RIGHT KIDNEY, NOT COMPLETELY IMAGED. Thoracic Spine MRI 10/10/19 06:22 IMPRESSION: NORMAL MRI THORACIC SPINE. NO EVIDENCE OF THORACIC VERTEBRAL METASTASIS. Chest X-Ray 10/16/19 10:42 IMPRESSION: Mild atelectasis at left lung base. Shoulder X-Ray 10/24/19 00:00 IMPRESSION: No acute or suspicious radiographic findings. Central Venous Line 10/26/19 00:00 IMPRESSION: IMAGE(S) OBTAINED DURING PROCEDURE. Cervical Spine MRI 10/31/19 00:00 IMPRESSION: Worrisome findings at C1-2 and C3-4. Possible infection, tumor. Some edema and fragmentation without significant cord compression. WBC Scan Nuclear Medicine 11/04/19 00:00 IMPRESSION: No scintigraphic evidence of an active infection. KUB X-Ray 11/08/19 00:00 IMPRESSION: No acute findings. 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 Is this a current diagnosis for this admission?: Yes (3) End stage renal disease on dialysis Is this a current diagnosis for this admission?: Yes (4) Lytic lesion of bone on x-ray Is this a current diagnosis for this admission?: Yes (5) Atrial flutter Qualifiers: Atrial flutter type: typical Qualified Code(s): I48.3 - Typical atrial flutter Is this a current diagnosis for this admission?: Yes (6) Metabolic encephalopathy Is this a current diagnosis for this admission?: Yes (7) Aortic valve regurgitation Qualifiers: Cardiac valve disease etiology: nonrheumatic Qualified Code(s): I35.1 - Nonrheumatic aortic (valve) insufficiency Is this a current diagnosis for this admission?: Yes (8) Endocarditis of mitral valve Is this a current diagnosis for this admission?: Yes (9) Discitis of cervical region Is this a current diagnosis for this admission?: Yes (10) Weakness of right upper extremity Is this a current diagnosis for this admission?: Yes Plan: Get MRI of the neck - Time Time Spent with patient: 15-24 minutes
[2019-11-08] MEDS ORDERED: LORAZEPAM INJ 2 MG/1 ML VIAL IV ONE (18:30)
[2019-11-08] MEDS: PATIROMER 8.4 GM SUSP PACKET PO SCH (18:47)
[2019-11-08] MEDS: VANCOMYCIN HCL 400 MG in DEXTROSE 5%-WATER 100 ML IV SCH (18:54)
--- NOTE | 2019-11-08 19:59 | RADIOLOGY REPORT (SQ) ---
EXAM DESCRIPTION: MRI CERVICAL SPINE WITHOUT COMPLETED DATE/TIME: 11/08/2019 6:41 pm REASON FOR STUDY: evaluate possible slipped disc COMPARISON: None. TECHNIQUE: Sagittal and Axial imaging includes T1, T2, STIR and gradient echo sequences. LIMITATIONS: None. FINDINGS: ALIGNMENT: Normal. VERTEBRAE: Intact. BONE MARROW: Edema is seen in the odontoid and anterior arch of C1. Edema is present in the C3-4 dis c space in the superior posterior aspect of the C4 vertebra. DISCS: Normal. No significant abnormal signal or loss of height. HARDWARE: None in the spine. CORD AND BASE OF BRAIN: Normal in size and signal intensity. SOFT TISSUES: No soft tissue masses. C1-C2: No significant spinal stenosis. C2-C3: Mild central canal stenosis secondary to shallow disc/ osteophyte complex in the midline. C3-C4: Significant central canal stenosis secondary to possible inflammation that elevates the motorcycle technician ior longitudinal ligament. C4-C5: Shallow disc/ osteophyte complex narrows the anterior CSF space but does not deform the cord. C5-C6: No significant spinal stenosis or exit foraminal stenosis. C6-C7: No significant spinal stenosis or exit foraminal stenosis. C7-T1: No significant spinal stenosis or exit foraminal stenosis. UPPER THORACIC: Incompletely imaged. No significant spinal stenosis or exit foraminal stenosis. OTHER: No other significant finding. IMPRESSION: There changes at the articulation of the odontoid and C1 and at the C3-4 level that appe ar to be secondary to infection. There is significant central canal stenosis at C3-4. TECHNICAL DOCUMENTATION: JOB ID: [id number] 2010 [employer]- All Rights Reserved Reading location - IP/workstation name: [email or web address]
[2019-11-08] MEDS: FAMOTIDINE 20 MG TABLET PO SCH (23:20)
[2019-11-09] MEDS: CLONIDINE HCL 0.1 MG TABLET PO SCH ×3 (06:03→21:12)
[2019-11-09] MEDS: NORMAL SALINE 10 ML SDV (SCHEDULED) IV SCH ×2 (09:30→21:05)
[2019-11-09] MEDS: AMIODARONE HCL 200 MG TABLET PO SCH (09:31)
[2019-11-09] MEDS: ACETAMINOPHEN 325 MG TABLET PO PRN (09:31)
[2019-11-09] MEDS: DOCUSATE SODIUM 100 MG CAPSULE PO SCH (09:31)
[2019-11-09] MEDS: PATIROMER 8.4 GM SUSP PACKET PO SCH (17:38)
--- NOTE | 2019-11-09 20:49 | PDOC PROGRESS REPORT ---
Subjective Progress Note for:: 11/09/19 Subjective:: Patient seen by the bedside, he had MRI of the cervical spine on 11/08/2019, it demonstrated articulation of the odontoid, C1 and the C3-C4 level that appears secondary to infection Reason For Visit: RENAL MASS/ESRD/BACK PAIN Physical Exam Vital Signs: Temp Pulse Resp BP Pulse Ox 97.6 F 56 L 20 114/55 L 100 11/09/19 11:38 11/09/19 14:00 11/09/19 11:38 11/09/19 11:38 11/09/19 11:38 Intake & Output 11/08/19 11/09/19 11/10/19 06:59 06:59 06:59 Intake Total 683 1621 480 Output Total 0 2500 0 Balance 683 -879 480 General appearance: PRESENT: no acute distress Eye exam: PRESENT: PERRLA Respiratory exam: PRESENT: clear to auscultation dave Cardiovascular exam: PRESENT: +S1, +S2 GI/Abdominal exam: PRESENT: soft Neurological exam: PRESENT: alert Results Laboratory Results: 11/08/19 05:20 11/08/19 05:20 11/07/19 19:40 Blood Blood Culture (PCR) - Final Staphylococcus Aureus 10/09/19 10/09/19 23:16 23:16 Creatine Kinase 121 CK-MB (CK-2) 0.57 Troponin I 0.112 Impressions: Abdomen/Pelvis CT 10/10/19 00:00 IMPRESSION: Prominent axillary nodes. Not definitely pathologic. Indeterminate nodes in the mediastinum. Solid right renal mass measuring over 6 cm. Atrophic kidneys. Probable Schmorl's noted L1. Well-circumscribed along the superior endplate without extension into the pedicles. Chest CT 10/10/19 00:00 IMPRESSION: Prominent axillary nodes. Not definitely pathologic. Indeterminate nodes in the mediastinum. Solid right renal mass measuring over 6 cm. Atrophic kidneys. Probable Schmorl's noted L1. Well-circumscribed along the superior endplate without extension into the pedicles. Lumbar Spine CT 10/10/19 03:49 IMPRESSION: 1. Solid-appearing mass at the upper pole of the right kidney, which has increased in size compared to the prior study. This is most compatible with malignancy. Recommend correlation with clinical history. 2. New lytic lesion within the L1 vertebral body, suggesting metastatic disease. 3. No acute fracture. Lumbar Spine MRI 10/10/19 06:22 IMPRESSION: 1. HOMOGENEOUS ROUND LESION IN THE SUPERIOR BODY OF THE L1 VERTEBRAL BODY DESCRIBED. THIS IS CONCERNING FOR A METASTATIC LESION. AN ATYPICAL SCHMORL'S NODE COULD BE ANOTHER POSSIBILITY BUT LESS LIKELY. MAY CONSIDER BONE SCAN TO EVALUATE THE FINDING IN THE L1 VERTEBRAL BODY AND TO DETERMINE IF THERE ARE ANY OTHER SKELETAL LESIONS IN THE REMAINDER OF THE BODY. 2. MILD CHRONIC DEGENERATIVE CHANGES DESCRIBED. NO SIGNIFICANT STENOSIS OR IMPINGEMENT. 3. HETEROGENOUS MASS IN THE RIGHT KIDNEY, NOT COMPLETELY IMAGED. Thoracic Spine MRI 10/10/19 06:22 IMPRESSION: NORMAL MRI THORACIC SPINE. NO EVIDENCE OF THORACIC VERTEBRAL METASTASIS. Chest X-Ray 10/16/19 10:42 IMPRESSION: Mild atelectasis at left lung base. Shoulder X-Ray 10/24/19 00:00 IMPRESSION: No acute or suspicious radiographic findings. Central Venous Line 10/26/19 00:00 IMPRESSION: IMAGE(S) OBTAINED DURING PROCEDURE. WBC Scan Nuclear Medicine 11/04/19 00:00 IMPRESSION: No scintigraphic evidence of an active infection. KUB X-Ray 11/08/19 00:00 IMPRESSION: No acute findings. Cervical Spine MRI 11/08/19 16:24 IMPRESSION: There changes at the articulation of the odontoid and C1 and at the C3-4 level that appear to be secondary to infection. There is significant central canal stenosis at C3-4. 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 Is this a current diagnosis for this admission?: Yes (3) End stage renal disease on dialysis Is this a current diagnosis for this admission?: Yes (4) Lytic lesion of bone on x-ray Is this a current diagnosis for this admission?: Yes (5) Atrial flutter Qualifiers: Atrial flutter type: typical Qualified Code(s): I48.3 - Typical atrial flutter Is this a current diagnosis for this admission?: Yes (6) Metabolic encephalopathy Is this a current diagnosis for this admission?: Yes (7) Aortic valve regurgitation Qualifiers: Cardiac valve disease etiology: nonrheumatic Qualified Code(s): I35.1 - Nonrheumatic aortic (valve) insufficiency Is this a current diagnosis for this admission?: Yes (8) Endocarditis of mitral valve Is this a current diagnosis for this admission?: Yes (9) Discitis of cervical region Is this a current diagnosis for this admission?: Yes (10) Weakness of right upper extremity Is this a current diagnosis for this admission?: Yes Plan: Get MRI of the neck - Time Time Spent with patient: 15-24 minutes - Plan Summary Plan Summary: Continue treatment
[2019-11-09] MEDS: DIPHENHYDRAMINE HCL 25 MG CAPSULE PO PRN (21:12)
[2019-11-10] MEDS: ACETAMINOPHEN 325 MG TABLET PO PRN (00:06)
[2019-11-10] MEDS ORDERED: NORMAL SALINE 1000 ML 1,000 ML IV PRN (05:00)
[2019-11-10] MEDS ORDERED: HEPARIN SOD (PORCINE) 1,000 UNIT/ML 10 ML VIAL IV PRN (05:00)
[2019-11-10] MEDS ORDERED: EPOETIN ALFA-EPBX 2,000 UNIT, EPOETIN ALFA-EPBX 3,000 UNIT, EPOETIN ALFA-EPBX 20,000 UN... IV PRN ×4 (05:00)
[2019-11-10 06:18] LABS: ABSOLUTE EOSINOPHILS # (AUTO) 0.3 10^3/uL (0.0-0.6); ABSOLUTE LYMPHOCYTES (AUTO) 0.9 10^3/uL (0.5-4.7); ABSOLUTE MONOCYTES (AUTO) 0.9 10^3/uL (0.1-1.4); ABSOLUTE NEUT (AUTO) 2.8 10^3/uL (1.7-8.2); BASOPHILS % (AUTO) 0.9 % (0-2); EOSINOPHILS % (AUTO) 6.2 % (0-6); LYMPHOCYTES % (AUTO) 17.9 % (13-45); MEAN CORPUSCULAR HEMOGLOBIN 28.7 pg (27.0-33.4); MEAN CORPUSCULAR HGB CONC 33.2 g/dL (32.0-36.0); MEAN CORPUSCULAR VOLUME 87 fl (80-97); MONOCYTES % (AUTO) 18.5 % (3-13); PLATELET COUNT 151 10^3/uL (150-450); RED BLOOD COUNT 2.77 10^6/uL (4.35-5.55); RED CELL DISTRIBUTION WIDTH 14.8 % (11.5-14.0); SEGMENTED NEUTROPHILS % (AUTO) 56.5 % (42-78); TOTAL CELLS COUNTED % (AUTO) 100 %
[2019-11-10 06:38] LABS: VANCOMYCIN,TROUGH 15.5 ug/mL (5.0-20.0)
[2019-11-10 06:39] LABS: ANION GAP 14 (5-19); BLOOD UREA NITROGEN 52 mg/dL (7-20); CALCIUM 8.4 mg/dL (8.4-10.2); CARBON DIOXIDE 24 mmol/L (22-30); CHLORIDE 94 mmol/L (98-107); GLUCOSE 105 mg/dL (75-110); POTASSIUM 4.2 mmol/L (3.6-5.0)
[2019-11-10] MEDS: CLONIDINE HCL 0.1 MG TABLET PO SCH ×3 (06:56→22:49)
[2019-11-10] MEDS: NORMAL SALINE 10 ML SDV (SCHEDULED) IV SCH ×2 (09:22→21:03)
[2019-11-10] MEDS: AMIODARONE HCL 200 MG TABLET PO SCH (11:45)
--- NOTE | 2019-11-10 17:25 | PDOC PROGRESS REPORT ---
Subjective Progress Note for:: 11/10/19 Subjective:: Patient was seen by the bedside, he had hemodialysis today. Patient still waiting for bed for transfer to [facility], he was accepted in transfer over 7 days ago. Reason For Visit: RENAL MASS/ESRD/BACK PAIN Physical Exam Vital Signs: Temp Pulse Resp BP Pulse Ox 97.9 F 60 18 100/52 L 100 11/10/19 11:39 11/10/19 14:00 11/10/19 11:39 11/10/19 11:39 11/10/19 11:39 Intake & Output 11/09/19 11/10/19 11/11/19 06:59 06:59 06:59 Intake Total 1621 480 236 Output Total 2500 0 1700 Balance -879 480 -1464 General appearance: PRESENT: no acute distress Eye exam: PRESENT: PERRLA Respiratory exam: PRESENT: clear to auscultation dave Cardiovascular exam: PRESENT: +S1, +S2 GI/Abdominal exam: PRESENT: soft Neurological exam: PRESENT: alert Results Laboratory Results: 11/10/19 05:36 11/10/19 05:36 11/10/19 11/10/19 05:36 05:36 WBC 5.0 RBC 2.77 L Hgb 8.0 L Hct 24.0 L MCV 87 MCH 28.7 MCHC 33.2 RDW 14.8 H Plt Count 151 Seg Neutrophils % 56.5 Sodium 131.8 L Potassium 4.2 Chloride 94 L Carbon Dioxide 24 Anion Gap 14 BUN 52 H Creatinine 10.51 H Est GFR ( Amer) 6 L Glucose 105 Calcium 8.4 11/07/19 19:40 Blood Blood Culture (PCR) - Final Staphylococcus Aureus 11/07/19 19:40 Blood Blood Culture - Final Mrsa (Meth Resis Staph Aureus) 10/09/19 10/09/19 23:16 23:16 Creatine Kinase 121 CK-MB (CK-2) 0.57 Troponin I 0.112 Impressions: Abdomen/Pelvis CT 10/10/19 00:00 IMPRESSION: Prominent axillary nodes. Not definitely pathologic. Indeterminate nodes in the mediastinum. Solid right renal mass measuring over 6 cm. Atrophic kidneys. Probable Schmorl's noted L1. Well-circumscribed along the superior endplate without extension into the pedicles. Chest CT 10/10/19 00:00 IMPRESSION: Prominent axillary nodes. Not definitely pathologic. Indeterminate nodes in the mediastinum. Solid right renal mass measuring over 6 cm. Atrophic kidneys. Probable Schmorl's noted L1. Well-circumscribed along the superior endplate without extension into the pedicles. Lumbar Spine CT 10/10/19 03:49 IMPRESSION: 1. Solid-appearing mass at the upper pole of the right kidney, which has increased in size compared to the prior study. This is most compatible with malignancy. Recommend correlation with clinical history. 2. New lytic lesion within the L1 vertebral body, suggesting metastatic disease. 3. No acute fracture. Lumbar Spine MRI 10/10/19 06:22 IMPRESSION: 1. HOMOGENEOUS ROUND LESION IN THE SUPERIOR BODY OF THE L1 VERTEBRAL BODY DESCRIBED. THIS IS CONCERNING FOR A METASTATIC LESION. AN ATYPICAL SCHMORL'S NODE COULD BE ANOTHER POSSIBILITY BUT LESS LIKELY. MAY CONSIDER BONE SCAN TO EVALUATE THE FINDING IN THE L1 VERTEBRAL BODY AND TO DETERMINE IF THERE ARE ANY OTHER SKELETAL LESIONS IN THE REMAINDER OF THE BODY. 2. MILD CHRONIC DEGENERATIVE CHANGES DESCRIBED. NO SIGNIFICANT STENOSIS OR IMPINGEMENT. 3. HETEROGENOUS MASS IN THE RIGHT KIDNEY, NOT COMPLETELY IMAGED. Thoracic Spine MRI 10/10/19 06:22 IMPRESSION: NORMAL MRI THORACIC SPINE. NO EVIDENCE OF THORACIC VERTEBRAL ME TASTASIS. Chest X-Ray 10/16/19 10:42 IMPRESSION: Mild atelectasis at left lung base. Shoulder X-Ray 10/24/19 00:00 IMPRESSION: No acute or suspicious radiographic findings. Central Venous Line 10/26/19 00:00 IMPRESSION: IMAGE(S) OBTAINED DURING PROCEDURE. WBC Scan Nuclear Medicine 11/04/19 00:00 IMPRESSION: No scintigraphic evidence of an active infection. KUB X-Ray 11/08/19 00:00 IMPRESSION: No acute findings. Cervical Spine MRI 11/08/19 16:24 IMPRESSION: There changes at the articulation of the odontoid and C1 and at the C3-4 level that appear to be secondary to infection. There is significant cent ral canal stenosis at C3-4. 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 Is this a current diagnosis for this admission?: Yes (3) End stage renal disease on dialysis Is this a current diagnosis for this admission?: Yes (4) Lytic lesion of bone on x-ray Is this a current diagnosis for this admission?: Yes (5) Atrial flutter Qualifiers: Atrial flutter type: typical Qualified Code(s): I48.3 - Typical atrial flutter Is this a current diagnosis for this admission?: Yes (6) Metabolic encephalopathy Is this a current diagnosis for this admission?: Yes (7) Aortic valve regurgitation Qualifiers: Cardiac valve disease etiology: nonrheumatic Qualified Code(s): I35.1 - Nonrheumatic aortic (valve) insufficiency Is this a current diagnosis for this admission?: Yes (8) Endocarditis of mitral valve Is this a current diagnosis for this admission?: Yes (9) Discitis of cervical region Is this a current diagnosis for this admission?: Yes (10) Weakness of right upper extremity Is this a current diagnosis for this admission?: Yes - Time Time Spent with patient: 15-24 minutes Level of Care: MEDICAL - Plan Summary Plan Summary: Continue treatment
[2019-11-10] MEDS: VANCOMYCIN HCL 400 MG in DEXTROSE 5%-WATER 100 ML IV SCH (17:38)
[2019-11-10] MEDS: PATIROMER 8.4 GM SUSP PACKET PO SCH (17:38)
--- NOTE | 2019-11-10 18:17 | PDOC PROGRESS REPORT ---
Subjective Progress Note for:: 11/10/19 Reason For Visit: Patient seen on dialysis today. He seems to be undergoing dialysis without any issues. He still complains of neck pains. He also admits to the fact that he is unable to bear any weight on his lower extremities and feels very unsteady when he tries to stand up. However he is able to move both his lower extremities sitting in the chair up and down without any issues or pain. No complaints of any fever or chills. Labs and medications were reviewed. Dialys is orders were reviewed with the treating dialysis nurse.Most recent blood cultures came back still positive for MRSA. Is awaiting transfer to [facility] for further evaluations. Did review the recent MRI of his scan x2 that was done on the second which shows persistent discitis as well as some foraminal narrowing without any cord compression. Physical Exam Vital Signs: Temp Pulse Resp BP Pulse Ox 97.9 F 60 18 100/52 L 100 11/10/19 11:39 11/10/19 14:00 11/10/19 11:39 11/10/19 11:39 11/10/19 11:39 Intake & Output 11/09/19 11/10/19 11/11/19 06:59 06:59 06:59 Intake Total 1621 480 236 Output Total 2500 0 1700 Balance -879 480 -1464 General appearance: PRESENT: no acute distress Respiratory exam: PRESENT: clear to auscultation dave. ABSENT: crackles Cardiovascular exam: PRESENT: +S1, +S2 GI/Abdominal exam: PRESENT: normal bowel sounds, soft. ABSENT: organomegaly, tenderness Extremities exam: ABSENT: pedal edema Neurological exam: PRESENT: alert, awake, oriented to person Psychiatric exam: PRESENT: appropriate affect Results Laboratory Results: 11/10/19 05:36 11/10/19 05:36 11/10/19 11/10/19 05:36 05:36 WBC 5.0 RBC 2.77 L Hgb 8.0 L Hct 24.0 L MCV 87 MCH 28.7 MCHC 33.2 RDW 14.8 H Plt Count 151 Seg Neutrophils % 56.5 Sodium 131.8 L Potassium 4.2 Chloride 94 L Carbon Dioxide 24 Anion Gap 14 BUN 52 H Creatinine 10.51 H Est GFR ( Amer) 6 L Glucose 105 Calcium 8.4 11/07/19 19:40 Blood Blood Culture (PCR) - Final Staphylococcus Aureus 11/07/19 19:40 Blood Blood Culture - Final Mrsa (Meth Resis Staph Aureus) 10/09/19 10/09/19 23:16 23:16 Creatine Kinase 121 CK-MB (CK-2) 0.57 Troponin I 0.112 Impressions: Abdomen/Pelvis CT 10/10/19 00:00 IMPRESSION: Prominent axillary nodes. Not definitely pathologic. Indeterminate nodes in the mediastinum. Solid right renal mass measuring over 6 cm. Atrophic kidneys. Probable Schmorl's noted L1. Well-circumscribed along the superior endplate without extension into the pedicles. Chest CT 10/10/19 00:00 IMPRESSION: Prominent axillary nodes. Not definitely pathologic. Indeterminate nodes in the mediastinum. Solid right renal mass measuring over 6 cm. Atrophic kidneys. Probable Schmorl's noted L1. Well-circumscribed along the superior endplate without extension into the pedicles. Lumbar Spine CT 10/10/19 03:49 IMPRESSION: 1. Solid-appearing mass at the upper pole of the right kidney, which has increased in size compared to the prior study. This is most compatible with malignancy. Recommend correlation with clinical history. 2. New lytic lesion within the L1 vertebral body, suggesting metastatic disease. 3. No acute fracture. Lumbar Spine MRI 10/10/19 06:22 IMPRESSION: 1. HOMOGENEOUS ROUND LESION IN THE SUPERIOR BODY OF THE L1 VERTEBRAL BODY DESCRIBED. THIS IS CONCERNING FOR A METASTATIC LESION. AN ATYPICAL SCHMORL'S NODE COULD BE ANOTHER POSSIBILITY BUT LESS LIKELY. MAY CONSIDER BONE SCAN TO EVALUATE THE FINDING IN THE L1 VERTEBRAL BODY AND TO DETERMINE IF THERE ARE ANY OTHER SKELETAL LESIONS IN THE REMAINDER OF THE BODY. 2. MILD CHRONIC DEGENERATIVE CHANGES DESCRIBED. NO SIGNIFICANT STENOSIS OR IMPINGEMENT. 3. HETEROGENOUS MASS IN THE RIGHT KIDNEY, NOT COMPLETELY IMAGED. Thoracic Spine MRI 10/10/19 06:22 IMPRESSION: NORMAL MRI THORACIC SPINE. NO EVIDENCE OF THORACIC VERTEBRAL METASTASIS. Chest X-Ray 10/16/19 10:42 IMPRESSION: Mild atelectasis at left lung base. Shoulder X-Ray 10/24/19 00:00 IMPRESSION: No acute or suspicious radiographic findings. Central Venous Line 10/26/19 00:00 IMPRESSION: IMAGE(S) OBTAINED DURING PROCEDURE. WBC Scan Nuclear Medicine 11/04/19 00:00 IMPRESSION: No scintigraphic evidence of an active infection. KUB X-Ray 11/08/19 00:00 IMPRESSION: No acute findings. Cervical Spine MRI 11/08/19 16:24 IMPRESSION: There changes at the articulation of the odontoid and C1 and at the C3-4 level that appear to be secondary to infection. There is significant central canal stenosis at C3-4. Assessment & Plan - Diagnosis (1) End-stage renal disease on hemodialysis Is this a current diagnosis for this admission?: Yes Plan: Patient currently undergoing dialysis. Vital signs are stable. Dialysis being supervised to ensure safe and smooth procedure. Plan to remove 1 to 2 L of fluid as tolerated. Dialysis orders were reviewed with the treating dialysis nurse. Catheter was examined. (2) Lower back pain Qualifiers: Chronicity: acute Back pain laterality: bilateral Sciatica presence: without sciatica Qualified Code(s): M54.5 - Low back pain Is this a current diagnosis for this admission?: Yes Plan: Patient is got renal mass along with a homogeneous bone lesion is L1. This is going to be explored and follow-up with kyphoplasty by Dr. Billings/pain management. The procedure has been postponed since he is now bacteremic.His low back pain is resolved. (3) Renal mass, right Is this a current diagnosis for this admission?: Yes Plan: Work-up as mentioned earlier being managed by heme oncologist. (4) Hyperkalemia Is this a current diagnosis for this admission?: Yes Plan: Should respond to dialysis.Continue on current dose of Veltassa daily. (5) Hypertension Is this a current diagnosis for this admission?: Yes Plan: Blood pressures better. Continue on current plans. (6) Paroxysmal atrial flutter Is this a current diagnosis for this admission?: Yes Plan: Presently rate controlled. Management as per cardiology. (7) Bone lesion Plan: L1 lesion that is being explored for possible benign versus metastatic lesion from right kidney mass. Plans as outlined earlier. (8) Staphylococcus aureus bacteremia Is this a current diagnosis for this admission?: Yes Plan: MRSA. Has a diagnosis on NEWTON to have bacterial endocarditis as well. Besides that he has discitis of his cervical spines on MRI that seems to be persistent even on second MRI. Dosed with vancomycin which is therapeutic. Plan to continue vancomycin postdialysis.He had his left femoral PermCath discontinued and currently dialyzing through a temporary dialysis catheter in his right femoral. Unfortunately patient still continues to be bacteremic in spite of therapeutic doses of vancomycin. Note that he is being monitored by Dr. Galindo/[facility]. 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 (10) Anemia in chronic kidney disease (CKD) Is this a current diagnosis for this admission?: Yes Plan: At this erythropoietin. Will check iron studies again.
[2019-11-10] MEDS: OXYCODONE-ACETAMINOPHEN 5-325 MG TABLET PO PRN (23:57)
[2019-11-11] MEDS: OXYCODONE-ACETAMINOPHEN 5-325 MG TABLET PO PRN ×4 (03:47→21:35)
[2019-11-11 05:39] LABS: ABSOLUTE RETICS # 0.034 10^6/uL (0.028-0.122); RETICULOCYTE COUNT (AUTO) 1.24 % (0.66-2.85)
[2019-11-11 05:54] LABS: IRON(TIBC) 17.8 ug/dL (49-181)
[2019-11-11] MEDS: CLONIDINE HCL 0.1 MG TABLET PO SCH ×3 (06:34→21:34)
[2019-11-11 06:59] LABS: FOLATE 3.84 ng/mL (>2.76)
--- NOTE | 2019-11-11 08:52 | Progress Note ---
Provider Note Provider Note: [facility] Telephone Advice Consultation Chart has been reviewed. This patient is a 58-year-old man with ESRD on HD who was admitted on 10/10 due to low back/flank pain. He was found with a large renal mass and a lytic lesion in L1. He has follow up with oncology. His blood cultures on 10/13 were positive for MRSA. He was started on vancomycin. Perm cath was removed on 10/19. Blood cultures were positive on 10/13 and 10/17. After catheter was removed on 10/19 there was transient clearance of bacteremia by cultures from 10/22. He started experiencing neck pain and imaging of his neck was consistent with an inflammatory/infectious proces in C1-C2 and C3-C4. He also had a NEWTON on 10/21 that was consistent with a large vegetation in mitral valve. He does ahve a systolic murmur per notes, but no significant mitral regurgitation clinically and by NEWTON (per cardiology notes). He was evaluated by cradiology due to atrial flutter currently on amiodarone and bradycardia. Patient has had HD catheter removed on 10/19, then 10/30 and 11/05 due to persistent MRSA bacteremia. All blood cultures since 10/27 have been positive. They have been on 10/27, 10/28, 11/03, 11/05, 11/06. The catheter tip grew skin tom. Patient suffered a fall on 11/07. A repeat MRI of the cervical spine demonstrated significant inflammation in C3-C4 suspected to be infectious with significant central canal stenosis. A WBC tagged whole body scan didn't show any other metastatic site of infection. He initially complained of left shoul kaitlin pain, but X ray was negative and pain resolved. Patient has been on vancomcyin throughout this admission with therapeutic levels. He is overall tolerating HD, but BP is borderline. He has been afebrile, seems to be stable. Allergies: DRY GAMBRO DIALYZERS Allergy (Unknown, Uncoded 06/22/18 04:07) "BP drop, vomiting" PAPER TAPE Allergy (Uncoded 06/22/18 04:07) Rash Medications: Acetaminophen [Tylenol 325 mg Tablet] 650 mg PO Q4HP PRN 10/10/19 Albuterol Sulfate [Albuterol Sulfate Hfa] 2 puff IH Q4HP PRN 10/10/19 Amiodarone HCl [Cordarone 200 mg Tablet] 200 mg PO DAILY 10/10/19 Apixaban [Eliquis 2.5 mg Tablet] 2.5 mg PO Q12 10/10/19 Calcium Acetate [Phoslo 667 mg Capsule] 2,001 mg PO MEALS 10/10/19 Calcium Acetate [Phoslo 667 mg Capsule] 667 mg PO .BIDWITHSNACKS 10/10/19 Calcium Carbonate [Tums] 200 mg PO DAILYP PRN 10/10/19 Cinacalcet HCl [Sensipar 30 mg Tablet] 30 mg PO DAILY 10/10/19 Clonidine HCl [Catapres 0.1 mg Tablet] 0.1 mg PO DAILY 10/10/19 Metoprolol Tartrate [Lopressor 25 mg Tablet] 25 mg PO DAILY 10/10/19 Simvastatin 20 mg PO QHS 10/10/19 Vital Signs: Temp Pulse Resp BP Pulse Ox 97.8 F 62 16 125/62 100 11/11/19 03:04 11/11/19 03:04 11/11/19 03:04 11/11/19 03:04 11/11/19 03:04 Intake & Output 11/10/19 11/11/19 11/12/19 06:59 06:59 06:59 Intake Total 480 1717 Output Total 0 1700 Balance 480 17 Weight/Height Weight 86 kg Height 5 ft 7 in Laboratories: 11/10/19 05:36 11/10/19 05:36 MCV 87 fl (80-97) 11/10/19 05:36 MCH 28.7 pg (27.0-33.4) 11/10/19 05:36 MCHC 33.2 g/dL (32.0-36.0) 11/10/19 05:36 RDW 14.8 % (11.5-14.0) H 11/10/19 05:36 Seg Neutrophils % 56.5 % (42-78) 11/10/19 05:36 Retic Count (auto) 1.24 % (0.66-2.85) 11/11/19 05:06 Carbonic Acid 1.29 mmol/L (1.05-1.35) 10/16/19 11:53 HCO3/H2CO3 Ratio 20:1 10/16/19 11:53 ABG pH 7.40 (7.35-7.45) 10/16/19 11:53 ABG pCO2 42.7 mmHg (35-45) 10/16/19 11:53 ABG pO2 501.0 mmHg (80-100) H 10/16/19 11:53 ABG HCO3 25.9 mmol/L (20-24) H 10/16/19 11:53 ABG O2 Saturation 99.9 % (94-98) H 10/16/19 11:53 ABG Base Excess 1.0 mmol/L 10/16/19 11:53 FiO2 100% 10/16/19 11:53 Chloride 94 mmol/L (98-107) L 11/10/19 05:36 Carbon Dioxide 24 mmol/L (22-30) 11/10/19 05:36 Anion Gap 14 (5-19) 11/10/19 05:36 Est GFR ( Amer) 6 (>60) L 11/10/19 05:36 Est GFR (Non-Af Amer) Cancelled 10/17/19 12:37 Glucose 105 mg/dL (75-110) 11/10/19 05:36 Calcium 8.4 mg/dL (8.4-10.2) 11/10/19 05:36 Magnesium 2.2 mg/dL (1.6-2.3) 10/13/19 12:12 Iron 17.8 ug/dL (49-181) L 11/11/19 05:06 TIBC 147 ug/dL (250-450) L 11/11/19 05:06 % Saturation 12 % 11/11/19 05:06 Ferritin 611.00 ng/mL (17.9-464.0) H 11/11/19 05:06 Total Bilirubin 0.6 mg/dL (0.2-1.3) 10/26/19 04:58 AST 27 U/L (17-59) 10/26/19 04:58 Alkaline Phosphatase 125 U/L (38-126) 10/26/19 04:58 Total Protein 7.6 g/dL (6.3-8.2) 10/26/19 04:58 Albumin 3.0 g/dL (3.5-5.0) L 10/26/19 04:58 Vitamin B12 821.0 pg/mL (239-931) 11/11/19 05:06 Folate 3.84 ng/mL (>2.76) 11/11/19 05:06 11/07/19 19:40 Blood Blood Culture (PCR) - Final Staphylococcus Aureus 11/07/19 19:40 Blood Blood Culture - Final Mrsa (Meth Resis Staph Aureus) 10/09/19 10/09/19 23:16 23:16 Creatine Kinase 121 CK-MB (CK-2) 0.57 Troponin I 0.112 Microbiology: Blood cultures: 2/5 MRSA 2/9 MRSA 2/14 Negative 10/27 MRSA 10/28 MRSA (vancomycin KAREN 1) 11/03 MRSA (vancomycin KAREN 2) 11/05 Catheter tip - skin tom 11/06 MRSA (Vancomycin KAREN 2) Radiology: Abdomen/Pelvis CT 10/10/19 00:00 IMPRESSION: Prominent axillary nodes. Not definitely pathologic. Indeterminate nodes in the mediastinum. Solid right renal mass measuring over 6 cm. Atrophic kidneys. Probable Schmorl's noted L1. Well-circumscribed along the superior endplate without extension into the pedicles. Chest CT 10/10/19 00:00 IMPRESSION: Prominent axillary nodes. Not definitely pathologic. Indeterminate nodes in the mediastinum. Solid right renal mass measuring over 6 cm. Atrophic kidneys. Probable Schmorl's noted L1. Well-circumscribed along the superior endplate without extension into the pedicles. Lumbar Spine CT 10/10/19 03:49 IMPRESSION: 1. Solid-appearing mass at the upper pole of the right kidney, which has increased in size compared to the prior study. This is most compatible with malignancy. Recommend correlation with clinical history. 2. New lytic lesion within the L1 vertebral body, suggesting metastatic disease. 3. No acute fracture. Lumbar Spine MRI 10/10/19 06:22 IMPRESSION: 1. HOMOGENEOUS ROUND LESION IN THE SUPERIOR BODY OF THE L1 VERTEBRAL BODY DESCRIBED. THIS IS CONCERNING FOR A METASTATIC LESION. AN ATYPICAL SCHMORL'S NODE COULD BE ANOTHER POSSIBILITY BUT LESS LIKELY. MAY CONSIDER BONE SCAN TO EVALUATE THE FINDING IN THE L1 VERTEBRAL BODY AND TO DETERMINE IF THERE ARE ANY OTHER SKELETAL LESIONS IN THE REMAINDER OF THE BODY. 2. MILD CHRONIC DEGENERATIVE CHANGES DESCRIBED. NO SIGNIFICANT STENOSIS OR IMPINGEMENT. 3. HETEROGENOUS MASS IN THE RIGHT KIDNEY, NOT COMPLETELY IMAGED. Thoracic Spine MRI 10/10/19 06:22 IMPRESSION: NORMAL MRI THORACIC SPINE. NO EVIDENCE OF THORACIC VERTEBRAL METASTASIS. Chest X-Ray 10/16/19 10:42 IMPRESSION: Mild atelectasis at left lung base. Shoulder X-Ray 10/24/19 00:00 IMPRESSION: No acute or suspicious radiographic findings. Central Venous Line 10/26/19 00:00 IMPRESSION: IMAGE(S) OBTAINED DURING PROCEDURE. WBC Scan Nuclear Medicine 11/04/19 00:00 IMPRESSION: No scintigraphic evidence of an active infection. KUB X-Ray 11/08/19 00:00 IMPRESSION: No acute findings. Cervical Spine MRI 11/08/19 16:24 IMPRESSION: There changes at the articulation of the odontoid and C1 and at the C3-4 level that appear to be secondary to infection. There is significant central canal stenosis at C3-4. Assessment and Recommendations: Very complex case of MRSA bacteremia with MV endocarditis and C3-C4 suspected septic arthritis in the setting of ESRD on HD and right kidney mass suspected malignancy with lytic lesion in L1. He has been bacteremic since 10/13 with only 1 set of negative cultures transiently on 10/22. He has had his HD catheter exchanged multiple times, last catheter tip grew only skin tom. NEWTON consistent with a large mitral valve vegetation. He has had episodes of arrhythmia during this admission, I'm concerned this could be related to w orsening infection in his heart or developing a paravalvular abscess in the setting of persistent bacteremia. He had good vancomycin trough throughout his treatment therefore this was not antibiotic failure but a matter of source control, probably his MV vegetation. It has now seeded his cervical spine and vancomycin KAREN is 2. Considering these findings, would recommend: 1- Change vancomycin to daptomycin 10 mg/kg renally adjusted. 2- CT surgery evaluation due to persistent bacteremia 3- Neurosurgery evaluation due to symptomatic C3-C4 septic arthritis 4- Repeat blood cultures after 48 hrs on daptomycin 5- Consider repeating NEWTON to assess for an abscess 6- Look for any other potential metastatic foci of infection that could've been missed by the WBC scan Marely Hendricks MD [facility] [phone]
[2019-11-11] MEDS: NORMAL SALINE 10 ML SDV (SCHEDULED) IV SCH ×2 (09:39→21:35)
[2019-11-11] MEDS: AMIODARONE HCL 200 MG TABLET PO SCH (09:39)
[2019-11-11] MEDS: PATIROMER 8.4 GM SUSP PACKET PO SCH (17:28)
--- NOTE | 2019-11-11 20:20 | PDOC PROGRESS REPORT ---
Subjective Progress Note for:: 11/11/19 Subjective:: He has persistent MRSA bacteremia, I reviewed the ID note, ID recommending changing antibiotic from vancomycin to daptomycin. ID also recommend consultation with CT surgery regarding the mitral valve endocarditis, visitation with neurosurgery because of the discitis of the cervical spine this services are not available in this hospital. I called [facility] for transfer of this patient more than a week ago, he was accepted in transfer but no beds available. Patient was seen by the bedside I explained the plan of care to the patient and the fact that we are still waiting for bed to open up at [facility] for him to be transferred Reason For Visit: RENAL MASS/ESRD/BACK PAIN Physical Exam Vital Signs: Temp Pulse Resp BP Pulse Ox 98.0 F 52 L 16 122/59 L 100 11/11/19 16:00 11/11/19 16:00 11/11/19 16:00 11/11/19 16:00 11/11/19 16:00 Intake & Output 11/10/19 11/11/19 11/12/19 06:59 06:59 06:59 Intake Total 480 1717 1355 Output Total 0 1700 Balance 462 26 1834 General appearance: PRESENT: no acute distress Eye exam: PRESENT: PERRLA Respiratory exam: PRESENT: clear to auscultation adve Cardiovascular exam: PRESENT: +S1, +S2 GI/Abdominal exam: PRESENT: soft Neurological exam: PRESENT: alert Results Laboratory Results: 11/10/19 05:36 11/10/19 05:36 11/11/19 11/11/19 05:06 05:06 Retic Count (auto) 1.24 Iron 17.8 L TIBC 147 L % Saturation 12 Ferritin 611.00 H Vitamin B12 821.0 Folate 3.84 10/09/19 10/09/19 23:16 23:16 Creatine Kinase 121 CK-MB (CK-2) 0.57 Troponin I 0.112 Impressions: Abdomen/Pelvis CT 10/10/19 00:00 IMPRESSION: Prominent axillary nodes. Not definitely pathologic. Indeterminate nodes in the mediastinum. Solid right renal mass measuring over 6 cm. Atrophic kidneys. Probable Schmorl's noted L1. Well-circumscribed along the superior endplate without extension into the pedicles. Chest CT 10/10/19 00:00 IMPRESSION: Prominent axillary nodes. Not definitely pathologic. Indeterminate nodes in the mediastinum. Solid right renal mass measuring over 6 cm. Atrophic kidneys. Probable Schmorl's noted L1. Well-circumscribed along the superior endplate without extension into the pedicles. Lumbar Spine CT 10/10/19 03:49 IMPRESSION: 1. Solid-appearing mass at the upper pole of the right kidney, which has increased in size compared to the prior study. This is most compatible with malignancy. Recommend correlation with clinical history. 2. New lytic lesion within the L1 vertebral body, suggesting metastatic disease. 3. No acute fracture. Lumbar Spine MRI 10/10/19 06:22 IMPRESSION: 1. HOMOGENEOUS ROUND LESION IN THE SUPERIOR BODY OF THE L1 VERTEBRAL BODY DESCRIBED. THIS IS CONCERNING FOR A METASTATIC LESION. AN ATYPICAL SCHMORL'S NODE COULD BE ANOTHER POSSIBILITY BUT LESS LIKELY. MAY CONSIDER BONE SCAN TO EVALUATE THE FINDING IN THE L1 VERTEBRAL BODY AND TO DETERMINE IF THERE ARE ANY OTHER SKELETAL LESIONS IN THE REMAINDER OF THE BODY. 2. MILD CHRONIC DEGENERATIVE CHANGES DESCRIBED. NO SIGNIFICANT STENOSIS OR IMPINGEMENT. 3. HETEROGENOUS MASS IN THE RIGHT KIDNEY, NOT COMPLETELY IMAGED. Thoracic Spine MRI 10/10/19 06:22 IMPRESSION: NORMAL MRI THORACIC SPINE. NO EVIDENCE OF THORACIC VERTEBRAL METASTASIS. Chest X-Ray 10/16/19 10:42 IMPRESSION: Mild atelectasis at left lung base. Shoulder X-Ray 10/24/19 00:00 IMPRESSION: No acute or suspicious radiographic findings. Central Venous Line 10/26/19 00:00 IMPRESSION: IMAGE(S) OBTAINED DURING PROCEDURE. WBC Scan Nuclear Medicine 11/04/19 00:00 IMPRESSION: No scintigraphic evidence of an active infection. KUB X-Ray 11/08/19 00:00 IMPRESSION: No acute findings. Cervical Spine MRI 11/08/19 16:24 IMPRESSION: There changes at the articulation of the odontoid and C1 and at the C3-4 level that appear to be secondary to infection. There is significant central canal stenosis at C3-4. Assessment & Plan - Diagnosis (1) MRSA (methicillin resistant Staphylococcus aureus) septicemia Is this a current diagnosis for this admission?: Yes Plan: Discontinue vancomycin, Start daptomycin 10 mg/kg body weight according to ID recommendation (2) Neoplasm of uncertain behavior of right kidney Is this a current diagnosis for this admission?: Yes (3) End stage renal disease on dialysis Is this a current diagnosis for this admission?: Yes (4) Lytic lesion of bone on x-ray Is this a current diagnosis for this admission?: Yes (5) Atrial flutter Qualifiers: Atrial flutter type: typical Qualified Code(s): I48.3 - Typical atrial flutter Is this a current diagnosis for this admission?: Yes (6) Metabolic encephalopathy Is this a current diagnosis for this admission?: Yes (7) Aortic valve regurgitation Qualifiers: Cardiac valve disease etiology: nonrheumatic Qualified Code(s): I35.1 - Nonrheumatic aortic (valve) insufficiency Is this a current diagnosis for this admission?: Yes (8) Endocarditis of mitral valve Is this a current diagnosis for this admission?: Yes (9) Discitis of cervical region Is this a current diagnosis for this admission?: Yes (10) Weakness of right upper extremity Is this a current diagnosis for this admission?: Yes - Time Time Spent with patient: 35 or more minutes Level of Care: CU
[2019-11-12] MEDS: OXYCODONE-ACETAMINOPHEN 5-325 MG TABLET PO PRN ×5 (01:26→21:58)
[2019-11-12] MEDS ORDERED: HEPARIN SOD (PORCINE) 1,000 UNIT/ML 10 ML VIAL IV PRN (05:00)
[2019-11-12] MEDS ORDERED: EPOETIN ALFA-EPBX 2,000 UNIT, EPOETIN ALFA-EPBX 3,000 UNIT, EPOETIN ALFA-EPBX 20,000 UN... IV PRN ×4 (05:00)
[2019-11-12 06:20] LABS: HEMATOCRIT 26.4 % (37.9-51.0); HEMOGLOBIN 8.9 g/dL (13.5-17.0); MEAN CORPUSCULAR HEMOGLOBIN 29.1 pg (27.0-33.4); MEAN CORPUSCULAR HGB CONC 33.7 g/dL (32.0-36.0); MEAN CORPUSCULAR VOLUME 86 fl (80-97); PLATELET COUNT 171 10^3/uL (150-450); RED BLOOD COUNT 3.06 10^6/uL (4.35-5.55); RED CELL DISTRIBUTION WIDTH 15.2 % (11.5-14.0); WHITE BLOOD COUNT 5.3 10^3/uL (4.0-10.5)
[2019-11-12] MEDS: CLONIDINE HCL 0.1 MG TABLET PO SCH ×3 (06:31→22:00)
[2019-11-12 06:37] LABS: ANION GAP 16 (5-19); BLOOD UREA NITROGEN 52 mg/dL (7-20); CALCIUM 8.7 mg/dL (8.4-10.2); CARBON DIOXIDE 24 mmol/L (22-30); CHLORIDE 95 mmol/L (98-107); GLUCOSE 83 mg/dL (75-110); POTASSIUM 4.7 mmol/L (3.6-5.0)
[2019-11-12] MEDS: NORMAL SALINE 10 ML SDV (SCHEDULED) IV SCH ×2 (12:03→22:01)
[2019-11-12] MEDS: AMIODARONE HCL 200 MG TABLET PO SCH (13:32)
--- NOTE | 2019-11-12 15:57 | PDOC PROGRESS REPORT ---
Subjective Progress Note for:: 11/12/19 Reason For Visit: Patient seen today on dialysis. He is undergoing dialysis without any issues. He seems happier than the previous times have seen him as he feels that the neck pain is improved comparatively. He says the pains are happening now intermittently and not continuous as before. He also was able to stand on his legs yesterday for a brief amount of time which was encouraging for him. No complaints of any fever or chills. No complaints of any chest pain shortness of breath. Labs and medications were reviewed. Dialysis orders were reviewed with the treating dialysis nurse. Physical Exam Vital Signs: Temp Pulse Resp BP Pulse Ox 98.3 F 69 16 118/61 97 11/12/19 11:11 11/12/19 14:00 11/12/19 11:11 11/12/19 13:27 11/12/19 13:27 Intake & Output 11/11/19 11/12/19 11/13/19 06:59 06:59 06:59 Intake Total 1717 1355 1480 Output Total 1700 2000 Balance 17 1355 -520 Weight 86 kg General appearance: PRESENT: no acute distress Respiratory exam: PRESENT: clear to auscultation dave. ABSENT: crackles Cardiovascular exam: PRESENT: +S1, +S2 GI/Abdominal exam: PRESENT: normal bowel sounds, soft. ABSENT: organomegaly, tenderness Extremities exam: ABSENT: pedal edema Neurological exam: PRESENT: alert, awake, oriented to person, oriented to place Psychiatric exam: PRESENT: appropriate affect Results Laboratory Results: 11/12/19 05:36 11/12/19 05:36 11/12/19 11/12/19 05:36 05:36 WBC 5.3 RBC 3.06 L Hgb 8.9 L Hct 26.4 L MCV 86 MCH 29.1 MCHC 33.7 RDW 15.2 H Plt Count 171 Sodium 134.8 L Potassium 4.7 Chloride 95 L Carbon Dioxide 24 Anion Gap 16 BUN 52 H Creatinine 11.72 H Est GFR ( Amer) 5 L Glucose 83 Calcium 8.7 10/09/19 10/09/19 23:16 23:16 Creatine Kinase 121 CK-MB (CK-2) 0.57 Troponin I 0.112 Impressions: Abdomen/Pelvis CT 10/10/19 00:00 IMPRESSION: Prominent axillary nodes. Not definitely pathologic. Indeterminate nodes in the mediastinum. Solid right renal mass measuring over 6 cm. Atrophic kidneys. Probable Schmorl's noted L1. Well-circumscribed along the superior endplate without extension into the pedicles. Chest CT 10/10/19 00:00 IMPRESSION: Prominent axillary nodes. Not definitely pathologic. Indeterminate nodes in the mediastinum. Solid right renal mass measuring over 6 cm. Atrophic kidneys. Probable Schmorl's noted L1. Well-circumscribed along the superior endplate without extension into the pedicles. Lumbar Spine CT 10/10/19 03:49 IMPRESSION: 1. Solid-appearing mass at the upper pole of the right kidney, which has increased in size compared to the prior study. This is most compatible with malignancy. Recommend correlation with clinical history. 2. New lytic lesion within the L1 vertebral body, suggesting metastatic disease. 3. No acute fracture. Lumbar Spine MRI 10/10/19 06:22 IMPRESSION: 1. HOMOGENEOUS ROUND LESION IN THE SUPERIOR BODY OF THE L1 VERTEBRAL BODY DESCRIBED. THIS IS CONCERNING FOR A METASTATIC LESION. AN ATYPICAL SCHMORL'S NODE COULD BE ANOTHER POSSIBILITY BUT LESS LIKELY. MAY CONSIDER BONE SCAN TO EVALUATE THE FINDING IN THE L1 VERTEBRAL BODY AND TO DETERMINE IF THERE ARE ANY OTHER SKELETAL LESIONS IN THE REMAINDER OF THE BODY. 2. MILD CHRONIC DEGENERATIVE CHANGES DESCRIBED. NO SIGNIFICANT STENOSIS OR IMPINGEMENT. 3. HETEROGENOUS MASS IN THE RIGHT KIDNEY, NOT COMPLETELY IMAGED. Thoracic Spine MRI 10/10/19 06:22 IMPRESSION: NORMAL MRI THORACIC SPINE. NO EVIDENCE OF THORACIC VERTEBRAL METASTASIS. Chest X-Ray 10/16/19 10:42 IMPRESSION: Mild atelectasis at left lung base. Shoulder X-Ray 10/24/19 00:00 IMPRESSION: No acute or suspicious radiographic findings. Central Venous Line 10/26/19 00:00 IMPRESSION: IMAGE(S) OBTAINED DURING PROCEDURE. WBC Scan Nuclear Medicine 11/04/19 00:00 IMPRESSION: No scintigraphic evidence of an active infection. KUB X-Ray 11/08/19 00:00 IMPRESSION: No acute findings. Cervical Spine MRI 11/08/19 16:24 IMPRESSION: There changes at the articulation of the odontoid and C1 and at the C3-4 level that appear to be secondary to infection. There is significant central canal stenosis at C3-4. Assessment & Plan - Diagnosis (1) End-stage renal disease on hemodialysis Is this a current diagnosis for this admission?: Yes Plan: Patient currently undergoing dialysis. Vital signs are stable. Dialysis being supervised to ensure safe and smooth procedure. Plan to remove 1 to 2 L of fluid as tolerated. Dialysis orders were reviewed with the treating dialysis nurse. Catheter was examined. (2) Renal mass, right Is this a current diagnosis for this admission?: Yes Plan: Work-up as mentioned earlier being managed by heme oncologist. (3) Hyperkalemia Is this a current diagnosis for this admission?: Yes Plan: Should respond to dialysis.Continue on current dose of Veltassa daily. (4) Hypertension Is this a current diagnosis for this admission?: Yes Plan: Blood pressures better. Continue on current plans. (5) Paroxysmal atrial flutter Is this a current diagnosis for this admission?: Yes Plan: Presently rate controlled. Management as per cardiology. (6) Bone lesion Plan: L1 lesion that is being explored for possible benign versus metastatic lesion from right kidney mass. Besides this he is also got features suggestive of discitis of the cervical spines. Awaiting transfer to [place]. Plans as outlined earlier. (7) Staphylococcus aureus bacteremia Is this a current diagnosis for this admission?: Yes Plan: MRSA. Has a diagnosis on [place] to have bacterial endocarditis as well. Besides that he has discitis of his cervical spines on MRI that seems to be persistent even on second MRI. Dosed with vancomycin which is therapeutic. I see recommendations from Dr. Galindo ID specialist to convert vancomycin to daptomycin and has been done so by Dr. Hannon. Note that he is being monitored by Dr. Galindo/[facility] ID specialist. (8) Endocarditis due to methicillin susceptible Staphylococcus aureus (MSSA) Is this a current diagnosis for this admission?: Yes Plan: As per ID specialist and Dr. Hannon. (9) Anemia in chronic kidney disease (CKD) Is this a current diagnosis for this admission?: Yes Plan: He is on erythropoietin. (10) Discitis of cervical region Is this a current diagnosis for this admission?: Yes Plan: Possibly secondary to MRSA bacteremia. Being managed by ID specialist and Dr. Hannon.
[2019-11-12] MEDS: PATIROMER 8.4 GM SUSP PACKET PO SCH (17:15)
--- NOTE | 2019-11-12 17:23 | Progress Note ---
Provider Note Provider Note: [facility] ID Telephone Advice Follow Up Patient with persistent MRSA bacteremia with MV endocarditis, now C3-C4 septic a rthritis/discitis. He is currently on HD. He has had his catheter exchanged multiple times. Last cultures on 11/06 positive. He has been on high dose daptomycin due to persistent bacteremia and vancomycin KAREN 2 now. Allergies: DRY GAMBRO DIALYZERS Allergy (Unknown, Uncoded 06/22/18 04:07) "BP drop, vomiting" PAPER TAPE Allergy (Uncoded 06/22/18 04:07) Rash Medications: Acetaminophen [Tylenol 325 mg Tablet] 650 mg PO Q4HP PRN 10/10/19 [History] Albuterol Sulfate [Albuterol Sulfate Hfa] 2 puff IH Q4HP PRN 10/10/19 [History] Amiodarone HCl [Cordarone 200 mg Tablet] 200 mg PO DAILY 10/10/19 [History] Apixaban [Eliquis 2.5 mg Tablet] 2.5 mg PO Q12 10/10/19 [History] Calcium Acetate [Phoslo 667 mg Capsule] 2,001 mg PO MEALS 10/10/19 [History] Calcium Acetate [Phoslo 667 mg Capsule] 667 mg PO .BIDWITHSNACKS 10/10/19 [History] Calcium Carbonate [Tums] 200 mg PO DAILYP PRN 10/10/19 [History] Cinacalcet HCl [Sensipar 30 mg Tablet] 30 mg PO DAILY 10/10/19 [History] Clonidine HCl [Catapres 0.1 mg Tablet] 0.1 mg PO DAILY 10/10/19 [History] Metoprolol Tartrate [Lopressor 25 mg Tablet] 25 mg PO DAILY 10/10/19 [History] Simvastatin 20 mg PO QHS 10/10/19 [History] Vital Signs: Temp Pulse Resp BP Pulse Ox 98.4 F 67 16 100/52 L 100 11/12/19 15:36 11/12/19 15:36 11/12/19 15:36 11/12/19 15:36 11/12/19 15:36 Intake & Output 11/11/19 11/12/19 11/13/19 06:59 06:59 06:59 Intake Total 1717 1355 1480 Output Total 1700 2000 Balance 17 1355 -520 Weight 86 kg Weight/Height Weight 86 kg Height 5 ft 7 in Laboratories: 11/12/19 05:36 11/12/19 05:36 MCV 86 fl (80-97) 11/12/19 05:36 MCH 29.1 pg (27.0-33.4) 11/12/19 05:36 MCHC 33.7 g/dL (32.0-36.0) 11/12/19 05:36 RDW 15.2 % (11.5-14.0) H 11/12/19 05:36 Seg Neutrophils % 56.5 % (42-78) 11/10/19 05:36 Retic Count (auto) 1.24 % (0.66-2.85) 11/11/19 05:06 Carbonic Acid 1.29 mmol/L (1.05-1.35) 10/16/19 11:53 HCO3/H2CO3 Ratio 20:1 10/16/19 11:53 ABG pH 7.40 (7.35-7.45) 10/16/19 11:53 ABG pCO2 42.7 mmHg (35-45) 10/16/19 11:53 ABG pO2 501.0 mmHg (80-100) H 10/16/19 11:53 ABG HCO3 25.9 mmol/L (20-24) H 10/16/19 11:53 ABG O2 Saturation 99.9 % (94-98) H 10/16/19 11:53 ABG Base Excess 1.0 mmol/L 10/16/19 11:53 FiO2 100% 10/16/19 11:53 Chloride 95 mmol/L (98-107) L 11/12/19 05:36 Carbon Dioxide 24 mmol/L (22-30) 11/12/19 05:36 Anion Gap 16 (5-19) 11/12/19 05:36 Est GFR ( Amer) 5 (>60) L 11/12/19 05:36 Est GFR (Non-Af Amer) Cancelled 10/17/19 12:37 Glucose 83 mg/dL (75-110) 11/12/19 05:36 Calcium 8.7 mg/dL (8.4-10.2) 11/12/19 05:36 Magnesium 2.2 mg/dL (1.6-2.3) 10/13/19 12:12 Iron 17.8 ug/dL (49-181) L 11/11/19 05:06 TIBC 147 ug/dL (250-450) L 11/11/19 05:06 % Saturation 12 % 11/11/19 05:06 Ferritin 611.00 ng/mL (17.9-464.0) H 11/11/19 05:06 Total Bilirubin 0.6 mg/dL (0.2-1.3) 10/26/19 04:58 AST 27 U/L (17-59) 10/26/19 04:58 Alkaline Phosphatase 125 U/L (38-126) 10/26/19 04:58 Total Protein 7.6 g/dL (6.3-8.2) 10/26/19 04:58 Albumin 3.0 g/dL (3.5-5.0) L 10/26/19 04:58 Vitamin B12 821.0 pg/mL (239-931) 11/11/19 05:06 Folate 3.84 ng/mL (>2.76) 11/11/19 05:06 10/09/19 10/09/19 23:16 23:16 Creatine Kinase 121 CK-MB (CK-2) 0.57 Troponin I 0.112 Blood cultures: 2 MRSA 2/ MRSA 10/22 Negative 10/27 MRSA 10/28 MRSA (vancomycin KAREN 1) 11/03 MRSA (vancomycin KAREN 2) 11/05 Catheter tip - skin tom 11/06 MRSA (Vancomycin KAREN 2) Radiology: Abdomen/Pelvis CT 10/10/19 00:00 IMPRESSION: Prominent axillary nodes. Not definitely pathologic. Indeterminate nodes in the mediastinum. Solid right renal mass measuring over 6 cm. Atrophic kidneys. Probable Schmorl's noted L1. Well-circumscribed along the superior endplate without extension into the pedicles. Chest CT 10/10/19 00:00 IMPRESSION: Prominent axillary nodes. Not definitely pathologic. Indeterminate nodes in the mediastinum. Solid right renal mass measuring over 6 cm. Atrophic kidneys. Probable Schmorl's noted L1. Well-circumscribed along the superior endplate without extension into the pedicles. Lumbar Spine CT 10/10/19 03:49 IMPRESSION: 1. Solid-appearing mass at the upper pole of the right kidney, which has increased in size compared to the prior study. This is most compatible with malignancy. Recommend correlation with clinical history. 2. New lytic lesion within the L1 vertebral body, suggesting metastatic disease. 3. No acute fracture. Lumbar Spine MRI 10/10/19 06:22 IMPRESSION: 1. HOMOGENEOUS ROUND LESION IN THE SUPERIOR BODY OF THE L1 VERTEBRAL BODY DESCRIBED. THIS IS CONCERNING FOR A METASTATIC LESION. AN ATYPICAL SCHMORL'S NODE COULD BE ANOTHER POSSIBILITY BUT LESS LIKELY. MAY CONSIDER BONE SCAN TO EVALUATE THE FINDING IN THE L1 VERTEBRAL BODY AND TO DETERMINE IF THERE ARE ANY OTHER SKELETAL LESIONS IN THE REMAINDER OF THE BODY. 2. MILD CHRONIC DEGENERATIVE CHANGES DESCRIBED. NO SIGNIFICANT STENOSIS OR IMPINGEMENT. 3. HETEROGENOUS MASS IN THE RIGHT KIDNEY, NOT COMPLETELY IMAGED. Thoracic Spine MRI 10/10/19 06:22 IMPRESSION: NORMAL MRI THORACIC SPINE. NO EVIDENCE OF THORACIC VERTEBRAL METASTASIS. Chest X-Ray 10/16/19 10:42 IMPRESSION: Mild atelectasis at left lung base. Shoulder X-Ray 10/24/19 00:00 IMPRESSION: No acute or suspicious radiographic findings. Central Venous Line 10/26/19 00:00 IMPRESSION: IMAGE(S) OBTAINED DURING PROCEDURE. WBC Scan Nuclear Medicine 11/04/19 00:00 IMPRESSION: No scintigraphic evidence of an active infection. KUB X-Ray 11/08/19 00:00 IMPRESSION: No acute findings. Cervical Spine MRI 11/08/19 16:24 IMPRESSION: There changes at the articulation of the odontoid and C1 and at the C3-4 level that appear to be secondary to infection. There is significant central canal stenosis at C3-4. Assessment and Recommendations: Very complex case of MRSA bacteremia with MV endocarditis and C3-C4 suspected septic arthritis in the setting of ESRD on HD and right kidney mass suspected malignancy with lytic lesion in L1. He has been bacteremic since 10/13 with only 1 set of negative cultures transiently on 10/22. He has had his HD catheter exchanged multiple times, last catheter tip grew only skin tom. [place] consistent with a large mitral valve vegetation. He has had episodes of arrhythmia during this admission, I'm concerned this could be related to worsening infection in his heart or developing a paravalvular abscess in the setting of persistent bacteremia. He is now on daptomycin high dose, would repeat blood cultures this weekend. He has been accepted at [facility], he has been waiting for a bed. In the meantime, continue daptomycin. Marely Hendricks MD [facility] [id number]
[2019-11-12] MEDS ORDERED: DAPTOMYCIN 750 MG in NORMAL SALINE 50 ML IV SCH (18:00)
--- NOTE | 2019-11-12 20:37 | PDOC PROGRESS REPORT ---
Subjective Progress Note for:: 11/12/19 Subjective:: He has persistent MRSA bacteremia, I reviewed the ID note, ID recommending changing antibiotic from vancomycin to daptomycin. ID also recommend consultation with CT surgery regarding the mitral valve endocarditis, visitation with neurosurgery because of the discitis of the cervical spine this services are not available in this hospital. I called [facility] for transfer of this patient more than a week ago, he was accepted in transfer but no beds available. Patient was seen by the bedside I explained the plan of care to the patient and the fact that we are still waiting for bed to open up at [facility] for him to be transferred Reason For Visit: RENAL MASS/ESRD/BACK PAIN Physical Exam Vital Signs: Temp Pulse Resp BP Pulse Ox 98.4 F 67 16 100/52 L 100 11/12/19 15:36 11/12/19 15:36 11/12/19 15:36 11/12/19 15:36 11/12/19 15:36 Intake & Output 11/11/19 11/12/19 11/13/19 06:59 06:59 06:59 Intake Total 1717 1355 1702 Output Total 1700 2000 Balance 17 1355 -298 Weight 86 kg General appearance: PRESENT: no acute distress Head exam: PRESENT: atraumatic, normocephalic Eye exam: PRESENT: conjunctiva pink, EOMI, PERRLA Ear exam: PRESENT: normal external ear exam Mouth exam: PRESENT: moist, tongue midline Neck exam: PRESENT: full ROM. ABSENT: carotid bruit, JVD, lymphadenopathy, thyromegaly Respiratory exam: PRESENT: clear to auscultation dave Cardiovascular exam: PRESENT: RRR, +S1, +S2 Pulses: PRESENT: normal dorsalis pedis pul, +2 pedal pulses bilateral Vascular exam: PRESENT: normal capillary refill GI/Abdominal exam: PRESENT: normal bowel sounds, soft Rectal exam: PRESENT: deferred Neurological exam: PRESENT: alert, awake, oriented to person, oriented to place, oriented to time, oriented to situation, CN II-XII grossly intact. ABSENT: motor sensory deficit Psychiatric exam: PRESENT: appropriate affect, normal mood. ABSENT: homicidal ideation, suicidal ideation Skin exam: PRESENT: dry, intact, warm. ABSENT: cyanosis, rash Results Laboratory Results: 11/12/19 05:36 11/12/19 05:36 11/12/19 11/12/19 05:36 05:36 WBC 5.3 RBC 3.06 L Hgb 8.9 L Hct 26.4 L MCV 86 MCH 29.1 MCHC 33.7 RDW 15.2 H Plt Count 171 Sodium 134.8 L Potassium 4.7 Chloride 95 L Carbon Dioxide 24 Anion Gap 16 BUN 52 H Creatinine 11.72 H Est GFR ( Amer) 5 L Glucose 83 Calcium 8.7 11/07/19 18:35 Blood Blood Culture - Final NO GROWTH IN 5 DAYS 10/09/19 10/09/19 23:16 23:16 Creatine Kinase 121 CK-MB (CK-2) 0.57 Troponin I 0.112 Impressions: Abdomen/Pelvis CT 10/10/19 00:00 IMPRESSION: Prominent axillary nodes. Not definitely pathologic. Indeterminate nodes in the mediastinum. Solid right renal mass measuring over 6 cm. Atrophic kidneys. Probable Schmorl's noted L1. Well-circumscribed along the superior endplate without extension into the pedicles. Chest CT 10/10/19 00:00 IMPRESSION: Prominent axillary nodes. Not definitely pathologic. Indeterminate nodes in the mediastinum. Solid right renal mass measuring over 6 cm. Atrophic kidneys. Probable Schmorl's noted L1. Well-circumscribed along the superior endplate without extension into the pedicles. Lumbar Spine CT 10/10/19 03:49 IMPRESSION: 1. Solid-appearing mass at the upper pole of the right kidney, which has increased in size compared to the prior study. This is most compatible with malignancy. Recommend correlation with clinical history. 2. New lytic lesion within the L1 vertebral body, suggesting metastatic disease. 3. No acute fracture. Lumbar Spine MRI 10/10/19 06:22 IMPRESSION: 1. HOMOGENEOUS ROUND LESION IN THE SUPERIOR BODY OF THE L1 VERTEBRAL BODY DESCRIBED. THIS IS CONCERNING FOR A METASTATIC LESION. AN ATYPICAL SCHMORL'S NODE COULD BE ANOTHER POSSIBILITY BUT LESS LIKELY. MAY CONSIDER BONE SCAN TO EVALUATE THE FINDING IN THE L1 VERTEBRAL BODY AND TO DETERMINE IF THERE ARE ANY OTHER SKELETAL LESIONS IN THE REMAINDER OF THE BODY. 2. MILD CHRONIC DEGENERATIVE CHANGES DESCRIBED. NO SIGNIFICANT STENOSIS OR IMPINGEMENT. 3. HETEROGENOUS MASS IN THE RIGHT KIDNEY, NOT COMPLETELY IMAGED. Thoracic Spine MRI 10/10/19 06:22 IMPRESSION: NORMAL MRI THORACIC SPINE. NO EVIDENCE OF THORACIC VERTEBRAL METASTASIS. Chest X-Ray 10/16/19 10:42 IMPRESSION: Mild atelectasis at left lung base. Shoulder X-Ray 10/24/19 00:00 IMPRESSION: No acute or suspicious radiographic findings. Central Venous Line 10/26/19 00:00 IMPRESSION: IMAGE(S) OBTAINED DURING PROCEDURE. WBC Scan Nuclear Medicine 11/04/19 00:00 IMPRESSION: No scintigraphic evidence of an active infection. KUB X-Ray 11/08/19 00:00 IMPRESSION: No acute findings. Cervical Spine MRI 11/08/19 16:24 IMPRESSION: There changes at the articulation of the odontoid and C1 and at the C3-4 level that appear to be secondary to infection. There is significant central canal stenosis at C3-4. Assessment & Plan - Diagnosis (1) MRSA (methicillin resistant Staphylococcus aureus) septicemia Is this a current diagnosis for this admission?: Yes Plan: Continue IV daptomycin (2) Neoplasm of uncertain behavior of right kidney Is this a current diagnosis for this admission?: Yes (3) End stage renal disease on dialysis Is this a current diagnosis for this admission?: Yes (4) Lytic lesion of bone on x-ray Is this a current diagnosis for this admission?: Yes (5) Atrial flutter Qualifiers: Atrial flutter type: typical Qualified Code(s): I48.3 - Typical atrial flutter Is this a current diagnosis for this admission?: Yes (6) Metabolic encephalopathy Is this a current diagnosis for this admission?: Yes (7) Aortic valve regurgitation Qualifiers: Cardiac valve disease etiology: nonrheumatic Qualified Code(s): I35.1 - Nonrheumatic aortic (valve) insufficiency Is this a current diagnosis for this admission?: Yes (8) Endocarditis of mitral valve Is this a current diagnosis for this admission?: Yes (9) Discitis of cervical region Is this a current diagnosis for this admission?: Yes (10) Weakness of right upper extremity Is this a current diagnosis for this admission?: Yes - Time Time Spent with patient: 25-34 minutes Level of Care: CU
[2019-11-13] MEDS: CLONIDINE HCL 0.1 MG TABLET PO SCH (06:07)
[2019-11-13] MEDS: OXYCODONE-ACETAMINOPHEN 5-325 MG TABLET PO PRN (10:49)
[2019-11-13] MEDS: AMIODARONE HCL 200 MG TABLET PO SCH (10:49)
[2019-11-13] MEDS: NORMAL SALINE 10 ML SDV (SCHEDULED) IV SCH (10:50)
[2019-11-13 12:50] VITALS: BP 120/58
[2019-11-15] MEDS ORDERED: DAPTOMYCIN 500 MG in NORMAL SALINE 50 ML IV SCH (18:00)
== END 2019-11-13 14:05 | disposition short-term general hospital (02) | DRG 686 ==
LOC: ER 22:56 → EH 10-10 08:58 → 3N 10-10 10:45 → 3S 10-22 17:17
PROVIDERS: ADMIT Family Medicine; ATTEND Internal Medicine
PROC: 5A1D70Z Performance of Urinary Filtration, Intermittent, Less than 6 Hours Per Day (ICD-10-PCS; 2019-10-11)
PROC: 5A09457 Assistance with Respiratory Ventilation, 24-96 Consecutive Hours, Continuous Positive Airway Pressure (ICD-10-PCS; 2019-10-16)
PROC: 06H033Z Insertion of Infusion Device into Inferior Vena Cava, Percutaneous Approach (ICD-10-PCS; 2019-10-19)
PROC: B549ZZA Ultrasonography of Inferior Vena Cava, Guidance (ICD-10-PCS; 2019-10-19)
PROC: 5A1D70Z Performance of Urinary Filtration, Intermittent, Less than 6 Hours Per Day (ICD-10-PCS; principal; 2019-10-26)
PROC: 06H033Z Insertion of Infusion Device into Inferior Vena Cava, Percutaneous Approach (ICD-10-PCS; 2019-10-26)
PROC: B549ZZA Ultrasonography of Inferior Vena Cava, Guidance (ICD-10-PCS; 2019-10-26)
PROC: 06PYX3Z Removal of Infusion Device from Lower Vein, External Approach (ICD-10-PCS; 2019-11-05)
PROC: 06H033Z Insertion of Infusion Device into Inferior Vena Cava, Percutaneous Approach (ICD-10-PCS; 2019-11-07)
PROC: B549ZZA Ultrasonography of Inferior Vena Cava, Guidance (ICD-10-PCS; 2019-11-07)
DX: C64.1 Malignant neoplasm of right kidney, except renal pelvis (principal); A41.02 Sepsis due to Methicillin resistant Staphylococcus aureus; N18.6 End stage renal disease; G93.41 Metabolic encephalopathy; I12.0 Hypertensive chronic kidney disease with stage 5 chronic kidney disease or end stage renal disease; N25.81 Secondary hyperparathyroidism of renal origin; I48.3 Typical atrial flutter; J44.1 Chronic obstructive pulmonary disease with (acute) exacerbation; C79.51 Secondary malignant neoplasm of bone; G81.91 Hemiplegia, unspecified affecting right dominant side; M46.42 Discitis, unspecified, cervical region; I08.0 Rheumatic disorders of both mitral and aortic valves; E66.9 Obesity, unspecified; E78.5 Hyperlipidemia, unspecified; D63.1 Anemia in chronic kidney disease; E87.5 Hyperkalemia; I48.0 Paroxysmal atrial fibrillation; G89.3 Neoplasm related pain (acute) (chronic); E78.00 Pure hypercholesterolemia, unspecified; W18.39XA Other fall on same level, initial encounter; Z99.2 Dependence on renal dialysis; Z79.899 Other long term (current) drug therapy; Z88.8 Allergy status to other drugs, medicaments and biological substances; Z91.048 Other nonmedicinal substance allergy status; Z79.01 Long term (current) use of anticoagulants; Z86.718 Personal history of other venous thrombosis and embolism; Z91.15 Patient's noncompliance with renal dialysis; Z91.11 Patient's noncompliance with dietary regimen
CPT/HCPCS: 01922; 36415; 36556; 36558; 36600; 71045; 71250; 72131; 72141; 72146; 72148; 74018; 74176; 76937; 77001; 78802; 80048; 80053; 80202; 82550; 82553; 82607; 82728; 82746; 82803; 82962; 83540; 83550; 83735; 84484; 85025; 85027; 85045; 85610; 87040; 87070; 87077; 87150; 87186; 93005; 93010; 93306; 93312; 93325; 94660; 96374; 96375; 99285; A9521; C1752; J0153; J0171; J0282; J0690; J0878; J1160; J1170; J1200; J1610; J1642; J1644; J2060; J2250; J2270; J2310; J2405; J2704; J3010; J3370; J3490; J7060; Q5105; Q9967

== ENCOUNTER 2019-11-23 20:10 | Inpatient (IN) | payer MEDICARE ==
[2019-11-24] MEDS ORDERED: HEPARIN SOD (PORCINE) 1,000 UNIT/ML 10 ML VIAL IV PRN (05:00)
[2019-11-24] MEDS ORDERED: NORMAL SALINE 1000 ML 1,000 ML IV PRN (05:00)
[2019-11-24 06:05] LABS: ABSOLUTE BASOPHILS # (AUTO) 0.1 10^3/uL (0.0-0.2); ABSOLUTE EOSINOPHILS # (AUTO) 0.3 10^3/uL (0.0-0.6); ABSOLUTE LYMPHOCYTES (AUTO) 1.2 10^3/uL (0.5-4.7); ABSOLUTE MONOCYTES (AUTO) 0.9 10^3/uL (0.1-1.4); ABSOLUTE NEUT (AUTO) 4.1 10^3/uL (1.7-8.2); BASOPHILS % (AUTO) 1.1 % (0-2); EOSINOPHILS % (AUTO) 4.7 % (0-6); HEMATOCRIT 25.4 % (37.9-51.0); HEMOGLOBIN 8.3 g/dL (13.5-17.0); LYMPHOCYTES % (AUTO) 17.9 % (13-45); MEAN CORPUSCULAR HEMOGLOBIN 27.4 pg (27.0-33.4); MEAN CORPUSCULAR HGB CONC 32.5 g/dL (32.0-36.0); MEAN CORPUSCULAR VOLUME 84 fl (80-97); MONOCYTES % (AUTO) 14.3 % (3-13); PLATELET COUNT 272 10^3/uL (150-450); RED BLOOD COUNT 3.01 10^6/uL (4.35-5.55); RED CELL DISTRIBUTION WIDTH 15.6 % (11.5-14.0); TOTAL CELLS COUNTED % (AUTO) 100 %; WHITE BLOOD COUNT 6.6 10^3/uL (4.0-10.5)
[2019-11-24 06:19] LABS: ALBUMIN 2.8 g/dL (3.5-5.0); ALKALINE PHOSPHATASE 82 U/L (38-126); ANION GAP 12 (5-19); ASPARTATE AMINO TRANSFERASE 24 U/L (17-59); BILIRUBIN,DIRECT 0.5 mg/dL (0.0-0.4); BILIRUBIN,TOTAL 0.5 mg/dL (0.2-1.3); BLOOD UREA NITROGEN 29 mg/dL (7-20); CALCIUM 7.8 mg/dL (8.4-10.2); CARBON DIOXIDE 25 mmol/L (22-30); CHLORIDE 98 mmol/L (98-107); GLUCOSE 91 mg/dL (75-110); POTASSIUM 4.4 mmol/L (3.6-5.0)
[2019-11-24] MEDS: TRAMADOL HCL 50 MG TABLET PO PRN (09:50)
[2019-11-24] MEDS ORDERED: EPOETIN ALFA-EPBX 10,000 UNIT/ML VIAL (RENAL) IV PRN (11:45)
[2019-11-24] MEDS ORDERED: EPOETIN ALFA-EPBX 20,000 UNITS (ESRD) in SYRINGE IV PRN (12:10)
[2019-11-24] MEDS ORDERED: LACTULOSE SYRUP 20 GM/30 ML UDCUP PO PRN (13:53)
[2019-11-24] MEDS ORDERED: ALBUMIN HUMAN 25 GM IV PRN (13:53)
[2019-11-24] MEDS ORDERED: GENTAMICIN 1 MG/ML PRN (13:53)
[2019-11-24] MEDS ORDERED: ALBUTEROL SULFATE 0.083% NEB 2.5 MG/3 ML AMPUL NEB PRN (13:53)
[2019-11-24] MEDS ORDERED: IPRATROPIUM BROMIDE 0.02% NEB 0.5 MG/2.5 ML AMPUL NEB PRN (13:53)
[2019-11-24] MEDS ORDERED: SODIUM CITRATE 4% PRN (13:53)
[2019-11-24] MEDS ORDERED: (PENDING PHARMACY ID) (Sennosides [Senna] 17.2 MG) PO SCH (14:00)
[2019-11-24] MEDS ORDERED: EPOETIN ALFA-EPBX 2,000 UNIT/ML VIAL (RENAL) IV SCH (14:00)
[2019-11-24] MEDS ORDERED: ALBUMIN HUMAN 25 GM/100 ML RTUINJ IV PRN (14:28)
--- NOTE | 2019-11-24 14:28 | PDOC H&P ---
History of Present Illness Admission Date/PCP: 11/23/19 20:10 СВЕТЛАНА WHEELER MD History of Present Illness: OLINDA OCAMPO is a 58 year old male, he has [facility], he was recently transferred to [facility] on 11/13/2019, he was transferred back to this hospital on 11/23/2019. He has MRSA bacteremia complicated with endocarditis, osteomyelitis he underwent C3-C4 laminectomy with decompression of the vertebral, this was done on 11/18/2019 there was no focal neurologic deficit post operative procedure according to neurosurgery [facility] patient can resume DVT prophylaxis but no anticoagulation until November 25, 2019. Patient still have lexus in place neurosurgery recommend staple remover on postoperative day 14, 12/02/2019,, recommendation is for patient to have imaging after lexus removed. He was also evaluated by nephrology while in [facility], the hemodialysis catheter in the groin was removed and a temporary IJ hemodialysis was placed [facility], regarding the right renal mass this was not evaluated by [facility] because of ongoing infection, [facility] wound infection resolved before further evaluation of this renal mass he will need follow-up with urology patient prefer [facility] but for transportation issue that could be challenging to achieve. Patient still on daptomycin for the MRSA bacteremia the daptomycin was initiated before transfer to [facility], blood culture cleared on this regimen 8 3 is recommended for the daptomycin this will finish on 01/09/2020 patient is transferred back to this hospital, he will continue daptomycin will make arrangement for patient to go to a shelter to continue his regimen and also follow-up with [facility]. Past Medical History Cardiac Medical History: Reports: Congestive Heart Failure, DVT, Hyperlipidema, Hypertension Pulmonary Medical History: Reports: Asthma, Chronic Obstructive Pulmonary Disease (COPD) Renal/ Medical History: Reports: End Stage Renal Disease Musculoskeltal Medical History: Reports: Arthritis - "DAMAGED NERVE TO RIGHT LEG" Psychiatric Medical History: Denies: Depression Past Surgical History Past Surgical History: Reports: Vascular Surgery - Right upper arm AV fistula, right and left PermCaths Social History Smoking Status: Unknown if Ever Smoked Frequency of Alcohol Use: Occasional Hx Recreational Drug Use: No Drugs: None Hx Prescription Drug Abuse: No Family History Family History: Reviewed & Not Pertinent, Hypertension Parental Family History Reviewed: Yes Children Family History Reviewed: Yes Sibling(s) Family History Reviewed.: Yes Medication/Allergy Home Medications: Acetaminophen [Tylenol 325 mg Tablet] 650 mg PO Q6HP PRN 11/24/19 Albumin Human [Albuminar-25] 25 gm IV .DIALYSIS PRN 11/24/19 Albuterol Sulfate [Ventolin 0.083% Neb 2.5 mg/3 ml Ampul] 1 vial NEB RTQ4HP PRN MDD TAKE WITH ATROVENT 11/24/19 Amiodarone HCl [Cordarone 200 mg Tablet] 200 mg PO DAILY 11/24/19 Calcium Acetate [Phoslo 667 Mg Capsule] 667 mg PO MEALS 11/24/19 Cinacalcet HCl [Sensipar 30 Mg Tablet] 30 mg PO DAILY 11/24/19 Clonidine HCl [Catapres 0.1 mg Tablet] 0.1 mg PO Q8 11/24/19 Daptomycin [Cubicin Inj 500 mg Vial] 1,000 mg IV FR@1800 11/24/19 Daptomycin [Cubicin Inj 500 mg Vial] 700 mg IV MOWE@1800 11/24/19 Epoetin Herrera-Epbx [Retacrit 2,000 Unit/ml Vial (Renal)] 4,000 unit IV .DIALYSIS 11/24/19 Famotidine [Pepcid 20 mg Tablet] 20 mg PO DAILY 11/24/19 Gentamicin 1mg/Ml, Sodium Citrate 4% Injection 2 ml .ROUTE .DIALYSIS PRN 11/24/19 Guaifenesin [Robitussin Syrup 200 mg/10 ml Ud Cup] 200 mg PO Q8HP PRN 11/24/19 Heparin Sodium,Porcine [Heparin Inj 5,000 Units/ml 1 ml Vial] 5,000 unit SUBCUT Q8 11/24/19 Ipratropium [place] [Atrovent 0.02% Neb 0.5 Mg/2.5 Ml Vial.Neb] 0.5 mg NEB RTQ4HP PRN MDD TAKE WITH ALBUTEROL 11/24/19 Lactulose [Cephulac 20 gm/30 ml Syrup UD Cup] 10 gm PO DAILYP PRN 11/24/19 Morphine Sulfate [Morphine 10 mg/ml Inj] 2 mg IV Q4HP PRN 11/24/19 Oxycodone HCl [Roxicodone] 5 mg PO Q4HP PRN 11/24/19 Polyethylene Glycol 3350 [Miralax Powder 17 gm/Packet] 1 packet PO TID 11/24/19 Sennosides [Senna] 17.2 mg PO BID 11/24/19 Sodium Chloride 0.9% Infusion 1,000 ml IV CONTINUOUS PRN 11/24/19 Allergies/Adverse Reactions: DRY GAMBRO DIALYZERS Allergy (Unknown, Uncoded 06/22/18 04:07) "BP drop, vomiting" PAPER TAPE Allergy (Uncoded 06/22/18 04:07) Rash Review of Systems Constitutional: ABSENT: chills, fever(s), headache(s), weight gain, weight loss Eyes: ABSENT: visual disturbances Ears: ABSENT: hearing changes Cardiovascular: ABSENT: chest pain, dyspnea on exertion, edema, orthropnea, palpitations Respiratory: ABSENT: cough, hemoptysis Gastrointestinal: ABSENT: abdominal pain, constipation, diarrhea, hematemesis, hematochezia, nausea, vomiting Genitourinary: ABSENT: dysuria, hematuria Musculoskeletal: PRESENT: back pain Integumentary: ABSENT: rash, wounds Neurological: ABSENT: abnormal gait, abnormal speech, confusion, dizziness, focal weakness, syncope Psychiatric: ABSENT: anxiety, depression, homidical ideation, suicidal ideation Endocrine: ABSENT: cold intolerance, heat intolerance, menstrual abnormalities, polydipsia, polyuria Hematologic/Lymphatic: ABSENT: easy bleeding, easy bruising, lymphadenopathy Physical Exam Vital Signs: Temp Pulse Resp BP Pulse Ox 98.2 F 65 22 H 125/64 100 11/24/19 08:34 11/24/19 08:34 11/24/19 08:34 11/24/19 08:34 11/24/19 08:34 Intake & Output 11/23/19 11/24/19 11/25/19 06:59 06:59 06:59 Intake Total 780 500 Balance 780 500 Weight 84.5 kg General appearance: PRESENT: no acute distress Head exam: PRESENT: atraumatic, normocephalic Eye exam: PRESENT: conjunctiva pink, EOMI, PERRLA Ear exam: PRESENT: normal external ear exam Mouth exam: PRESENT: moist, tongue midline Neck exam: PRESENT: full ROM, other - IJ Catheter Respiratory exam: PRESENT: clear to auscultation dave Cardiovascular exam: PRESENT: RRR, +S1, +S2 Pulses: PRESENT: normal dorsalis pedis pul, +2 pedal pulses bilateral Vascular exam: PRESENT: normal capillary refill GI/Abdominal exam: PRESENT: normal bowel sounds, soft Rectal exam: PRESENT: deferred Neurological exam: PRESENT: alert, awake, oriented to person, oriented to place, oriented to time, oriented to situation, CN II-XII grossly intact Psychiatric exam: PRESENT: appropriate affect, normal mood Skin exam: PRESENT: dry, intact, warm Results Laboratory Results: 11/24/19 05:18 11/24/19 05:18 11/24/19 11/24/19 05:18 05:18 WBC 6.6 RBC 3.01 L Hgb 8.3 L Hct 25.4 L MCV 84 MCH 27.4 MCHC 32.5 RDW 15.6 H Plt Count 272 Seg Neutrophils % 62.0 Sodium 134.7 L Potassium 4.4 Chloride 98 Carbon Dioxide 25 Anion Gap 12 BUN 29 H Creatinine 7.94 H Est GFR ( Amer) 8 L Glucose 91 Calcium 7.8 L Total Bilirubin 0.5 AST 24 Alkaline Phosphatase 82 Total Protein 8.0 Albumin 2.8 L Assessment & Plan - Diagnosis (1) MRSA (methicillin resistant Staphylococcus aureus) septicemia Is this a current diagnosis for this admission?: Yes Plan: Patient will continue on daptomycin intravenously, until January 2020, will make arrangement for patient to transfer to shelter for continuity of care (2) Chronic atrial fibrillation Is this a current diagnosis for this admission?: Yes Plan: Patient will start Eliquis on November 25, 2019 (3) End-stage renal disease on hemodialysis Is this a current diagnosis for this admission?: Yes Plan: Consult nephrology for hemodialysis (4) Neoplasm of uncertain behavior of right kidney Is this a current diagnosis for this admission?: Yes Plan: Patient will need to follow-up with urology after he finishes the daptomycin
[2019-11-24] MEDS: POLYETHYLENE GLYCOL 3350 POWDER 17 GM/1 PACKET PO SCH ×2 (15:49→17:28)
[2019-11-24] MEDS: CALCIUM ACETATE 667 MG CAPSULE PO SCH (16:33)
[2019-11-24] MEDS: CLONIDINE HCL 0.1 MG TABLET PO SCH ×2 (16:33→21:15)
[2019-11-24] MEDS: AMIODARONE HCL 200 MG TABLET PO SCH (16:33)
[2019-11-24] MEDS: FAMOTIDINE 20 MG TABLET PO SCH (16:35)
--- NOTE | 2019-11-24 16:56 | PDOC PROGRESS REPORT ---
Subjective Progress Note for:: 11/24/19 Subjective:: Patient seen today in dialysis, he was admitted yesterday, no new complaints Reason For Visit: MRSA SEPTICEMIA,RT KIDNEY CANCER Physical Exam Vital Signs: Temp Pulse Resp BP Pulse Ox 98.3 F 64 18 139/56 H 99 11/24/19 16:28 11/24/19 16:28 11/24/19 16:28 11/24/19 16:28 11/24/19 16:28 Intake & Output 11/23/19 11/24/19 11/25/19 06:59 06:59 06:59 Intake Total 780 1500 Output Total 3000 Balance 780 -1500 Weight 84.5 kg General appearance: PRESENT: no acute distress Eye exam: PRESENT: PERRLA Respiratory exam: PRESENT: clear to auscultation dave Cardiovascular exam: PRESENT: +S1, +S2 GI/Abdominal exam: PRESENT: soft Neurological exam: PRESENT: alert Results Laboratory Results: 11/24/19 05:18 11/24/19 05:18 11/24/19 11/24/19 05:18 05:18 WBC 6.6 RBC 3.01 L Hgb 8.3 L Hct 25.4 L MCV 84 MCH 27.4 MCHC 32.5 RDW 15.6 H Plt Count 272 Seg Neutrophils % 62.0 Sodium 134.7 L Potassium 4.4 Chloride 98 Carbon Dioxide 25 Anion Gap 12 BUN 29 H Creatinine 7.94 H Est GFR ( Amer) 8 L Glucose 91 Calcium 7.8 L Total Bilirubin 0.5 AST 24 Alkaline Phosphatase 82 Total Protein 8.0 Albumin 2.8 L Assessment & Plan - Diagnosis (1) MRSA (methicillin resistant Staphylococcus aureus) septicemia Is this a current diagnosis for this admission?: Yes Plan: Patient will continue daptomycin 01/09/2020 (2) Chronic atrial fibrillation Is this a current diagnosis for this admission?: Yes Plan: Patient to start Eliquis on 11/25/2019 (3) End-stage renal disease on hemodialysis Is this a current diagnosis for this admission?: Yes Plan: Patient on hemodialysis, nephrology following (4) Neoplasm of uncertain behavior of right kidney Is this a current diagnosis for this admission?: Yes Plan: Patient will be referred to urology outpatient, he prefers [facility] urology, he will finish the daptomycin on 01/09/2020 - Time Time Spent with patient: 35 or more minutes Level of Care: MEDICAL
[2019-11-24] MEDS: CINACALCET HCL 30 MG TABLET PO SCH (17:37)
[2019-11-24] MEDS: DAPTOMYCIN 700 MG in NORMAL SALINE 50 ML IV SCH (17:37)
[2019-11-24] MEDS: DIPHENHYDRAMINE HCL 25 MG CAPSULE PO PRN (17:43)
[2019-11-24] MEDS ORDERED: DAPTOMYCIN INJ 500 MG VIAL IV SCH (18:00)
[2019-11-24] MEDS: HEPARIN SOD (PORCINE) 5,000 UNIT/ML 1 ML VIAL SUBCUT SCH (21:18)
--- NOTE | 2019-11-24 22:05 | PDOC CONSULTATION ---
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 Patient was admitted here and also [facility] at [facility] where he was diagnosed of the above. Due to persistent bacteremia patient was transferred to [facility] on November 13, 2019. Patient was evaluated by multi-specialties including nephrology, infectious disease, cardiothoracic surgeon, neurosurgeon and neurology. Infectious disease changes antibiotics to daptomycin recommended to be given for 8 weeks until January 09, 2020. He underwent C3/C4 laminectomy, decompression and posterior fusion. He is supposed to follow-up with neurosurgery in 6 weeks. His temporary femoral catheter was removed and a new right IJ tunneled catheter for dialysis was placed. His hemodialysis treatments has been continued well at [facility]. Cardiothoracic surgery was also consulted and did not feel that there is any need for any surgery at the time. They recommended repeat NEWTON post antibiotic treatment. Due to the concurrent infection no further work-up was done with the patient's right renal mass. Patient was transferred back here from [facility] yesterday, November 23, 2019. I am seeing the patient during dialysis this afternoon. Patient said he feels all right. He states that he still has some neck pain but is much better after the procedure. He really did not remember everything done at [facility]. Patient states that now he can put pressure on his feet and is able to stand up but is n ot walking yet. Currently the patient is tolerating dialysis. He is being monitored continuously. Past Medical History Cardiac Medical History: Reports: DVT, Heart Murmur, Hyperlipidemia, Hypertension-primary Pulmonary Medical History: Reports: Asthma, Chronic Obstructive Pulmonary Disease (COPD) Renal/ Medical History: Reports: End Stage Renal Disease Musculoskeltal Medical History: Reports: Arthritis - "DAMAGED NERVE TO RIGHT LEG" Hematology Medical History: Reports Anemia of Chronic Kidney Disease Past Surgical History Past Surgical History: Reports: Dialysis Access Surgery AVF, Dialysis Access Surgery AVG, Vascular Surgery - Right and left PermCaths, Other - C3-C4 laminectomy, decompression and posterior fusion, November 18, 2019 Social History Information Source: Patient, [facility] Records Smoking Status: Former Smoker Frequency of Alcohol Use: Occasional Hx Recreational Drug Use: No Drugs: None Hx Prescription Drug Abuse: No Family History Family History: End Stage Renal Disease - Daughter also on dialysis Parental Family History Reviewed: Yes Children Family History Reviewed: Yes Sibling(s) Family History Reviewed.: Yes Medication/Allergy Home Medications: Acetaminophen [Tylenol 325 mg Tablet] 650 mg PO Q6HP PRN 11/24/19 Albumin Human [Albuminar-25] 25 gm IV .DIALYSIS PRN 11/24/19 Albuterol Sulfate [Ventolin 0.083% Neb 2.5 mg/3 ml Ampul] 1 vial NEB RTQ4HP PRN MDD TAKE WITH ATROVENT 11/24/19 Amiodarone HCl [Cordarone 200 mg Tablet] 200 mg PO DAILY 11/24/19 Calcium Acetate [Phoslo 667 Mg Capsule] 667 mg PO MEALS 11/24/19 Cinacalcet HCl [Sensipar 30 Mg Tablet] 30 mg PO DAILY 11/24/19 Clonidine HCl [Catapres 0.1 mg Tablet] 0.1 mg PO Q8 11/24/19 Daptomycin [Cubicin Inj 500 mg Vial] 1,000 mg IV FR@1800 11/24/19 Daptomycin [Cubicin Inj 500 mg Vial] 700 mg IV MOWE@1800 11/24/19 Epoetin Herrera-Epbx [Retacrit 2,000 Unit/ml Vial (Renal)] 4,000 unit IV .DIALYSIS 11/24/19 Famotidine [Pepcid 20 mg Tablet] 20 mg PO DAILY 11/24/19 Gentamicin 1mg/Ml, Sodium Citrate 4% Injection 2 ml .ROUTE .DIALYSIS PRN 11/24/19 Guaifenesin [Robitussin Syrup 200 mg/10 ml Ud Cup] 200 mg PO Q8HP PRN 11/24/19 Heparin Sodium,Porcine [Heparin Inj 5,000 Units/ml 1 ml Vial] 5,000 unit SUBCUT Q8 11/24/19 Ipratropium [place] [Atrovent 0.02% Neb 0.5 Mg/2.5 Ml Vial.Neb] 0.5 mg NEB RTQ4H P PRN MDD TAKE WITH ALBUTEROL 11/24/19 Lactulose [Cephulac 20 gm/30 ml Syrup UD Cup] 10 gm PO DAILYP PRN 11/24/19 Morphine Sulfate [Morphine 10 mg/ml Inj] 2 mg IV Q4HP PRN 11/24/19 Oxycodone HCl [Roxicodone] 5 mg PO Q4HP PRN 11/24/19 Polyethylene Glycol 3350 [Miralax Powder 17 gm/Packet] 1 packet PO TID 11/24/19 Sennosides [Senna] 17.2 mg PO BID 11/24/19 Sodium Chloride 0.9% Infusion 1,000 ml IV CONTINUOUS PRN 11/24/19 Allergies/Adverse Reactions: DRY GAMBRO DIALYZERS Allergy (Unknown, Uncoded 06/22/18 04:07) "BP drop, vomiting" PAPER TAPE Allergy (Uncoded 06/22/18 04:07) Rash Review of Systems All systems: reviewed and no additional remarkable complaints except as stated Review of Systems: Constitutional: ABSENT: chills, fatigue, fever(s), headache(s), weight gain, weight loss Eyes: ABSENT: visual disturbances Ears: ABSENT: hearing changes Cardiovascular: ABSENT: chest pain, dyspnea on exertion, edema, orthropnea, palpitations Respiratory: ABSENT: cough, dyspnea, hemoptysis Gastrointestinal: ABSENT: abdominal pain, constipation, diarrhea, hematemesis, hematochezia, nausea, vomiting Genitourinary: ABSENT: dysuria, hematuria Musculoskeletal: ABSENT: joint swelling; improved neck pain on motion Integumentary: ABSENT: rash, wounds Neurological: ABSENT: abnormal gait, abnormal speech, confusion, dizziness, focal weakness, numbness, syncope Psychiatric: ABSENT: anxiety, depression Endocrine: ABSENT: cold intolerance, heat intolerance, polydipsia, polyuria Hematologic/Lymphatic: ABSENT: easy bleeding, easy bruising, lymphadenopathy Physical Exam Vital Signs: Temp Pulse Resp BP Pulse Ox 98.2 F 65 22 H 125/64 100 11/24/19 08:34 11/24/19 08:34 11/24/19 08:34 11/24/19 08:34 11/24/19 08:34 Intake & Output 11/23/19 11/24/19 11/25/19 06:59 06:59 06:59 Intake Total 780 Balance 780 Weight 84.5 kg Vitals during dialysis: Blood pressure 116/63, heart rate of 58, blood flow rate of 350 mL/min and dialysate flow rate of 800 mL/min. Exam: General appearance: No acute distress, cooperative, well-developed, well- nourished Head exam: PRESENT: atraumatic, normocephalic Eye exam: PRESENT: Conjunctiva Peck, EOMI, PERRLA. ABSENT: conjunctival injection, scleral icterus Mouth exam: PRESENT: moist, neck supple, tongue midline Neck exam: PRESENT: full ROM. ABSENT: carotid bruit, JVD, lymphadenopathy, thyromegaly Respiratory exam: PRESENT: Diminished to auscultation bilaterally. ABSENT: rales, rhonchi, stridor, wheezes Cardiovascular exam: PRESENT: RRR, +S1, +S2. Grade 2/6 systolic murmur Pulses: PRESENT: normal radial pulses, normal dorsalis pedis pulses GI/Abdominal exam: PRESENT: normal bowel sounds, soft. ABSENT: guarding, mass, tenderness Rectal exam: Deferred Extremities exam: PRESENT: full ROM. Right arm chronic lymphedema ABSENT: calf tenderness, pedal edema Musculoskeletal: PRESENT: full ROM. ABSENT: deformity Neurological exam: PRESENT: alert, Awake, Oriented to person, Oriented to place, Oriented to time, reflexes normal, CN II-XII grossly intact. ABSENT: motor sensory deficit Psychiatric exam: PRESENT: appropriate affect, normal mood. ABSENT: homicidal ideation, suicidal ideation Skin exam: PRESENT: intact, dry, warm. ABSENT: rash Results Laboratory Results: 11/24/19 05:18 11/24/19 05:18 11/24/19 11/24/19 05:18 05:18 WBC 6.6 RBC 3.01 L Hgb 8.3 L Hct 25.4 L MCV 84 MCH 27.4 MCHC 32.5 RDW 15.6 H Plt Count 272 Seg Neutrophils % 62.0 Sodium 134.7 L Potassium 4.4 Chloride 98 Carbon Dioxide 25 Anion Gap 12 BUN 29 H Creatinine 7.94 H Est GFR ( Amer) 8 L Glucose 91 Calcium 7.8 L Total Bilirubin 0.5 AST 24 Alkaline Phosphatase 82 Total Protein 8.0 Albumin 2.8 L Assessment & Plan - Diagnosis (1) MRSA (methicillin resistant Staphylococcus aureus) septicemia Is this a current diagnosis for this admission?: Yes Plan: Initially treated with vancomycin intravenously for about 4 to 5 weeks and then subsequently got transferred to [facility]. Infectious disease recommends daptomycin IV times a week to be given post hemodialysis for 8 weeks until January 09, 2020. (2) End stage renal disease on dialysis Is this a current diagnosis for this admission?: Yes Plan: Continue hemodialysis support. We will do dialysis today for 3 hours, using the patient's right IJ PermCath, with 2 potassium bath, blood flow rate of 350 mL per minute, dialysate flow rate of 800 mL per minute, ultrafiltration 2 to 3 L as tolerated, no heparin and Procrit with 20,000 units during dialysis intravenously. Patient is currently being monitored continuously during dialysis treatment. (3) Endocarditis of mitral valve Is this a current diagnosis for this admission?: Yes Plan: Cardiothoracic surgery recommends repeating NEWTON after treatment with daptomycin. No surgical intervention recommended. (4) Acute osteomyelitis of spine Is this a current diagnosis for this admission?: Yes Plan: Status post C3-C4 laminectomy, decompression and posterior fusion on November 18, 2019. Patient to follow-up with neurosurgery. Apparently patient still has lexus removed on December 02, 2019. (5) Anemia in chronic kidney disease (CKD) Is this a current diagnosis for this admission?: Yes Plan: Continue Retacrit to be given on dialysis as needed. (6) Chronic atrial fibrillation Is this a current diagnosis for this admission?: Yes (7) Hypertension Is this a current diagnosis for this admission?: Yes (8) Renal mass, right Is this a current diagnosis for this admission?: Yes Plan: Further work-up by urology after treatment of MRSA bacteremia until January 09, 2020. (9) Lytic lesion of bone on x-ray Is this a current diagnosis for this admission?: Yes (10) Lymphedema of right upper extremity Is this a current diagnosis for this admission?: Yes - Notes Notes: Discussed with Dr. Wheeler. Plan is to continue IV antibiotics and dialysis until January 08. Meanwhile the patient is given a be placed in the group home facility for continued rehabilitation. Thank you very much for this consultation. - Time Time Spent: 50 to 70 Minutes
[2019-11-25] MEDS: TRAMADOL HCL 50 MG TABLET PO PRN ×2 (02:05→12:25)
[2019-11-25] MEDS: HEPARIN SOD (PORCINE) 5,000 UNIT/ML 1 ML VIAL SUBCUT SCH ×2 (05:39→13:35)
[2019-11-25] MEDS: CLONIDINE HCL 0.1 MG TABLET PO SCH ×3 (05:39→22:02)
[2019-11-25 06:04] LABS: ABSOLUTE BASOPHILS # (AUTO) 0.1 10^3/uL (0.0-0.2); ABSOLUTE EOSINOPHILS # (AUTO) 0.3 10^3/uL (0.0-0.6); ABSOLUTE LYMPHOCYTES (AUTO) 1.4 10^3/uL (0.5-4.7); ABSOLUTE NEUT (AUTO) 3.6 10^3/uL (1.7-8.2); BASOPHILS % (AUTO) 1.4 % (0-2); EOSINOPHILS % (AUTO) 4.2 % (0-6); HEMOGLOBIN 8.1 g/dL (13.5-17.0); LYMPHOCYTES % (AUTO) 22.2 % (13-45); MEAN CORPUSCULAR HGB CONC 33.6 g/dL (32.0-36.0); MEAN CORPUSCULAR VOLUME 84 fl (80-97); MONOCYTES % (AUTO) 15.3 % (3-13); PLATELET COUNT 252 10^3/uL (150-450); RED BLOOD COUNT 2.88 10^6/uL (4.35-5.55); RED CELL DISTRIBUTION WIDTH 15.4 % (11.5-14.0); SEGMENTED NEUTROPHILS % (AUTO) 56.9 % (42-78); TOTAL CELLS COUNTED % (AUTO) 100 %; WHITE BLOOD COUNT 6.4 10^3/uL (4.0-10.5)
[2019-11-25] MEDS: CALCIUM ACETATE 667 MG CAPSULE PO SCH ×3 (08:22→17:10)
[2019-11-25] MEDS: SENNOSIDES/DOCUSATE 8.6-50 MG 1 EACH TABLET PO SCH ×2 (09:36→17:09)
[2019-11-25] MEDS: POLYETHYLENE GLYCOL 3350 POWDER 17 GM/1 PACKET PO SCH ×3 (09:37→17:13)
[2019-11-25] MEDS: AMIODARONE HCL 200 MG TABLET PO SCH (09:37)
[2019-11-25] MEDS: FAMOTIDINE 20 MG TABLET PO SCH (09:37)
[2019-11-25] MEDS: CINACALCET HCL 30 MG TABLET PO SCH (17:09)
[2019-11-25] MEDS: GUAIFENESIN SYRP 200 MG/10 ML UDC PO PRN (17:10)
--- NOTE | 2019-11-25 20:56 | PDOC PROGRESS REPORT ---
Subjective Progress Note for:: 11/25/19 Subjective:: Patient seen by the bedside, I explained to him the plan of care, he will continue daptomycin for MRSA septicemia until January 09, 2020, he will be transferred to a group home home to continue his care and also undergo rehabilitation, the assisted will arrange for him to follow-up with [facility] urology regarding the right kidney mass most likely malignant, he also will need to see the neurosurgeon that operated on his neck at [facility], the neurosurgeon that did the laminectomy of the cervical spine is recommending long-term antibiotic, doxycycline because the instrumentation that was inserted in his neck was in the setting of an infectious process Reason For Visit: MRSA SEPTICEMIA,RT KIDNEY CANCER Physical Exam Vital Signs: Temp Pulse Resp BP Pulse Ox 98.0 F 61 16 108/59 L 100 11/25/19 16:33 11/25/19 16:33 11/25/19 16:33 11/25/19 16:33 11/25/19 16:33 Intake & Output 11/24/19 11/25/19 11/26/19 06:59 06:59 06:59 Intake Total 780 2390 1736 Output Total 3000 Balance 780 -610 1736 Weight 84.5 kg 77.9 kg General appearance: PRESENT: no acute distress Eye exam: PRESENT: PERRLA Respiratory exam: PRESENT: clear to auscultation dave Cardiovascular exam: PRESENT: +S1, +S2 GI/Abdominal exam: PRESENT: soft Neurological exam: PRESENT: alert Results Laboratory Results: 11/25/19 05:16 11/24/19 05:18 11/25/19 05:16 WBC 6.4 RBC 2.88 L Hgb 8.1 L Hct 24.0 L MCV 84 MCH 28.0 MCHC 33.6 RDW 15.4 H Plt Count 252 Seg Neutrophils % 56.9 Assessment & Plan - Diagnosis (1) MRSA (methicillin resistant Staphylococcus aureus) septicemia Is this a current diagnosis for this admission?: Yes Plan: Patient will continue daptomycin till January 09, 2020 (2) Chronic atrial fibrillation Is this a current diagnosis for this admission?: Yes Plan: Patient will start back the Eliquis today 2.5 mg p.o. twice daily (3) End-stage renal disease on hemodialysis Is this a current diagnosis for this admission?: Yes Plan: Patient will continue hemodialysis per nephrology (4) Neoplasm of uncertain behavior of right kidney Is this a current diagnosis for this admission?: Yes (5) Status post laminectomy with spinal fusion Is this a current diagnosis for this admission?: Yes Plan: Patient will require long-term antibiotic, probably doxycycline after he finishes the daptomycin - Time Time Spent with patient: 35 or more minutes Level of Care: MEDICAL
[2019-11-25] MEDS: APIXABAN 2.5 MG TABLET PO SCH (22:02)
[2019-11-25] MEDS: DIPHENHYDRAMINE HCL 25 MG CAPSULE PO PRN (22:02)
[2019-11-25] MEDS: MORPHINE SULFATE 10 MG/ML INJ IV PRN (22:04)
[2019-11-26] MEDS ORDERED: HEPARIN SOD (PORCINE) 1,000 UNIT/ML 10 ML VIAL IV PRN (05:00)
[2019-11-26] MEDS ORDERED: EPOETIN ALFA-EPBX 2,000 UNIT, EPOETIN ALFA-EPBX 3,000 UNIT, EPOETIN ALFA-EPBX 20,000 UN... IV PRN ×4 (05:00)
[2019-11-26] MEDS ORDERED: NORMAL SALINE 1000 ML 1,000 ML IV PRN (05:00)
[2019-11-26 05:09] LABS: ABSOLUTE BASOPHILS # (AUTO) 0.1 10^3/uL (0.0-0.2); ABSOLUTE EOSINOPHILS # (AUTO) 0.3 10^3/uL (0.0-0.6); ABSOLUTE LYMPHOCYTES (AUTO) 1.5 10^3/uL (0.5-4.7); ABSOLUTE NEUT (AUTO) 3.4 10^3/uL (1.7-8.2); BASOPHILS % (AUTO) 1.2 % (0-2); EOSINOPHILS % (AUTO) 4.4 % (0-6); HEMATOCRIT 24.8 % (37.9-51.0); HEMOGLOBIN 8.1 g/dL (13.5-17.0); LYMPHOCYTES % (AUTO) 23.4 % (13-45); MEAN CORPUSCULAR HEMOGLOBIN 27.5 pg (27.0-33.4); MEAN CORPUSCULAR HGB CONC 32.5 g/dL (32.0-36.0); MEAN CORPUSCULAR VOLUME 85 fl (80-97); MONOCYTES % (AUTO) 15.8 % (3-13); PLATELET COUNT 262 10^3/uL (150-450); RED BLOOD COUNT 2.93 10^6/uL (4.35-5.55); SEGMENTED NEUTROPHILS % (AUTO) 55.2 % (42-78); TOTAL CELLS COUNTED % (AUTO) 100 %; WHITE BLOOD COUNT 6.2 10^3/uL (4.0-10.5)
[2019-11-26 05:25] LABS: ANION GAP 9 (5-19); BLOOD UREA NITROGEN 33 mg/dL (7-20); CALCIUM 7.6 mg/dL (8.4-10.2); CARBON DIOXIDE 28 mmol/L (22-30); CHLORIDE 96 mmol/L (98-107); GLUCOSE 91 mg/dL (75-110); POTASSIUM 4.4 mmol/L (3.6-5.0)
[2019-11-26] MEDS: CLONIDINE HCL 0.1 MG TABLET PO SCH ×3 (05:26→22:24)
[2019-11-26] MEDS: DIPHENHYDRAMINE HCL 25 MG CAPSULE PO PRN ×2 (05:26→22:23)
[2019-11-26] MEDS: TRAMADOL HCL 50 MG TABLET PO PRN (05:26)
[2019-11-26] MEDS: CALCIUM ACETATE 667 MG CAPSULE PO SCH ×3 (10:04→17:50)
--- NOTE | 2019-11-26 10:07 | PDOC PROGRESS REPORT ---
Subjective Progress Note for:: 11/26/19 Reason For Visit: Patient seen on dialysis today. Chart review was done. Patient has returned from [facility] where he had spinal cervical laminectomy and fusion of his spines which had been infected with MRSA. He states he is doing well with improving neck pains as well as improving strength in his lower extremities. He denies any specific complaints of any chest pain, fever or chills. Plans apparently to continue daptomycin till January 08 and then go on long-term doxyc ycline because of the surgical involvement during an infectious process as per recommendations by the neurosurgeon. 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 He has also got valvular endocarditis and needs NEWTON follow- up after current completion of his antibiotics. Patient undergoing dialysis without any issues. Vital signs are stable. Dialysis orders were reviewed with the treating dialysis nurse. Labs and medications were reviewed. Physical Exam Vital Signs: Temp Pulse Resp BP Pulse Ox 97.9 F 62 20 106/52 L 96 11/26/19 03:39 11/26/19 07:00 11/26/19 03:39 11/26/19 03:39 11/26/19 03:39 Intake & Output 11/25/19 11/26/19 11/27/19 06:59 06:59 06:59 Intake Total 2390 2256 Output Total 3000 Balance -610 2256 Weight 77.9 kg 80.3 kg General appearance: PRESENT: no acute distress Respiratory exam: PRESENT: clear to auscultation dave. ABSENT: crackles Cardiovascular exam: PRESENT: +S1, +S2 GI/Abdominal exam: PRESENT: normal bowel sounds, soft. ABSENT: organomegaly, tenderness Neurological exam: PRESENT: alert, awake, oriented to person, oriented to place Results Laboratory Results: 11/26/19 03:59 11/26/19 03:59 11/26/19 11/26/19 03:59 03:59 WBC 6.2 RBC 2.93 L Hgb 8.1 L Hct 24.8 L MCV 85 MCH 27.5 MCHC 32.5 RDW 15.0 H Plt Count 262 Seg Neutrophils % 55.2 Sodium 133.4 L Potassium 4.4 Chloride 96 L Carbon Dioxide 28 Anion Gap 9 BUN 33 H Creatinine 8.40 H Est GFR ( Amer) 8 L Glucose 91 Calcium 7.6 L Assessment & Plan - Diagnosis (1) Acute osteomyelitis of spine Is this a current diagnosis for this admission?: Yes Plan: Patient status post cervical laminectomy with fusion of spine at [facility]. He has had successful surgery and patient rehabbing very well currently. Apparently has got follow-up appointments with neurosurgery over there. Patient currently on IV daptomycin followed by long-term doxycycline as per plans and recommendations by [facility] neurosurgery. (2) End stage renal disease on dialysis Is this a current diagnosis for this admission?: Yes Plan: Patient undergoing dialysis without any issues. Vital signs are stable. Dialysis being supervised to ensure safe and smooth procedure. Plan to remove approximately 1-2 L as tolerated. Dialysis orders were reviewed the treating dialysis nurse. (3) Chronic atrial fibrillation Is this a current diagnosis for this admission?: Yes Plan: Presently rate controlled. (4) Status post laminectomy with spinal fusion Is this a current diagnosis for this admission?: Yes Plan: Stable. As mentioned earlier. MRSA bacteremia with Cervical spinal discitis and endocarditis and on IV daptomycin till 08 January. (5) Anemia in chronic kidney disease (CKD) Is this a current diagnosis for this admission?: Yes Plan: Erythropoietin (6) Endocarditis due to methicillin susceptible Staphylococcus aureus (MSSA) Plan: On IV daptomycin till 08 January. Follow-up with cardiology for repeat NEWTON (7) Hypertension Is this a current diagnosis for this admission?: Yes Plan: Controlled. (8) MRSA (methicillin resistant Staphylococcus aureus) septicemia Is this a current diagnosis for this admission?: Yes Plan: And resulted in valvular endocarditis and cervical spinal infection. Initially on vancomycin converted to daptomycin which he will complete on 08 January. Follow- up with [facility] neurosurgery as well as local cardiology for follow-up. (9) Neoplasm of uncertain behavior of right kidney Is this a current diagnosis for this admission?: Yes Plan: To be evaluated by [facility] urology after completion of antibiotics. Dr. Hannon is in communication with them.
[2019-11-26] MEDS: POLYETHYLENE GLYCOL 3350 POWDER 17 GM/1 PACKET PO SCH ×3 (11:24→17:50)
[2019-11-26] MEDS: AMIODARONE HCL 200 MG TABLET PO SCH (11:24)
[2019-11-26] MEDS: APIXABAN 2.5 MG TABLET PO SCH ×2 (11:24→17:50)
[2019-11-26] MEDS: FAMOTIDINE 20 MG TABLET PO SCH (11:24)
[2019-11-26] MEDS: SENNOSIDES/DOCUSATE 8.6-50 MG 1 EACH TABLET PO SCH ×2 (11:24→17:50)
[2019-11-26] MEDS: DAPTOMYCIN 700 MG in NORMAL SALINE 50 ML IV SCH (17:50)
[2019-11-26] MEDS: CINACALCET HCL 30 MG TABLET PO SCH (17:50)
[2019-11-26] MEDS ORDERED: DAPTOMYCIN INJ 500 MG VIAL IV SCH (18:00)
--- NOTE | 2019-11-26 19:15 | PDOC PROGRESS REPORT ---
Subjective Progress Note for:: 11/26/19 Subjective:: Patient seen by the bedside, I explained to him the plan of care, he will continue daptomycin for MRSA septicemia until January 09, 2020, he will be transferred to a longterm home to continue his care and also undergo rehabilitation, the group home will arrange for him to follow-up with [facility] urology regarding the right kidney mass most likely malignant, he also will need to see the neurosurgeon that operated on his neck at [facility], the neurosurgeon that did the laminectomy of the cervical spine is recommending long-term antibiotic, doxycycline because the instrumentation that was inserted in his neck was in the setting of an infectious process Reason For Visit: MRSA SEPTICEMIA,RT KIDNEY CANCER Physical Exam Vital Signs: Temp Pulse Resp BP Pulse Ox 97.9 F 63 16 106/52 L 100 11/26/19 15:37 11/26/19 15:37 11/26/19 15:37 11/26/19 15:37 11/26/19 15:37 Intake & Output 11/25/19 11/26/19 11/27/19 06:59 06:59 06:59 Intake Total 2390 2256 2592 Output Total 3000 2000 Balance -610 2256 592 Weight 77.9 kg 80.3 kg General appearance: PRESENT: no acute distress Eye exam: PRESENT: PERRLA Respiratory exam: PRESENT: clear to auscultation dave Cardiovascular exam: PRESENT: +S1, +S2 GI/Abdominal exam: PRESENT: soft Results Laboratory Results: 11/26/19 03:59 11/26/19 03:59 11/26/19 11/26/19 03:59 03:59 WBC 6.2 RBC 2.93 L Hgb 8.1 L Hct 24.8 L MCV 85 MCH 27.5 MCHC 32.5 RDW 15.0 H Plt Count 262 Seg Neutrophils % 55.2 Sodium 133.4 L Potassium 4.4 Chloride 96 L Carbon Dioxide 28 Anion Gap 9 BUN 33 H Creatinine 8.40 H Est GFR ( Amer) 8 L Glucose 91 Calcium 7.6 L Assessment & Plan - Diagnosis (1) MRSA (methicillin resistant Staphylococcus aureus) septicemia Is this a current diagnosis for this admission?: Yes Plan: continue daptomycin (2) Chronic atrial fibrillation Is this a current diagnosis for this admission?: Yes Plan: continue eliquis (3) End-stage renal disease on hemodialysis Is this a current diagnosis for this admission?: Yes Plan: Patient will continue hemodialysis per nephrology (4) Neoplasm of uncertain behavior of right kidney Is this a current diagnosis for this admission?: Yes (5) Status post laminectomy with spinal fusion Is this a current diagnosis for this admission?: Yes - Time Time Spent with patient: 35 or more minutes Level of Care: CU
[2019-11-27] MEDS: OXYCODONE HCL IR 5 MG TABLET PO PRN ×2 (01:35→17:09)
[2019-11-27] MEDS: CLONIDINE HCL 0.1 MG TABLET PO SCH ×3 (05:40→22:26)
[2019-11-27] MEDS: CALCIUM ACETATE 667 MG CAPSULE PO SCH ×3 (08:42→17:09)
[2019-11-27] MEDS: SENNOSIDES/DOCUSATE 8.6-50 MG 1 EACH TABLET PO SCH ×2 (09:41→17:09)
[2019-11-27] MEDS: FAMOTIDINE 20 MG TABLET PO SCH (09:41)
[2019-11-27] MEDS: AMIODARONE HCL 200 MG TABLET PO SCH (09:41)
[2019-11-27] MEDS: APIXABAN 2.5 MG TABLET PO SCH ×2 (09:41→17:09)
[2019-11-27] MEDS: POLYETHYLENE GLYCOL 3350 POWDER 17 GM/1 PACKET PO SCH ×3 (09:41→17:09)
--- NOTE | 2019-11-27 11:02 | PDOC PROGRESS REPORT ---
Subjective Progress Note for:: 11/27/19 Subjective:: Patient is currently doing much better no fever no chills Patient is recently came from the [facility] status post laminectomy the cervical spine due to the persistent MRSA infections Patient is currently on a daptomycin's and doxycycline's Patient is currently on her dialysis patient No fever no chills Reason For Visit: MRSA SEPTICEMIA,RT KIDNEY CANCER Physical Exam Vital Signs: Temp Pulse Resp BP Pulse Ox 97.5 F 37 L 16 129/57 H 74 L 11/27/19 08:07 11/27/19 08:07 11/27/19 08:07 11/27/19 08:07 11/27/19 08:07 Intake & Output 11/26/19 11/27/19 11/28/19 06:59 06:59 06:59 Intake Total 2256 2703 Output Total 1999 Balance 2256 703 Weight 80.3 kg 79.1 kg General appearance: PRESENT: no acute distress, well-developed, well-nourished Head exam: PRESENT: atraumatic, normocephalic Eye exam: PRESENT: conjunctiva pink, EOMI, PERRLA. ABSENT: scleral icterus Ear exam: PRESENT: normal external ear exam Mouth exam: PRESENT: moist, tongue midline Neck exam: PRESENT: full ROM. ABSENT: carotid bruit, JVD, lymphadenopathy, thyromegaly Respiratory exam: PRESENT: clear to auscultation dave Cardiovascular exam: PRESENT: RRR. ABSENT: diastolic murmur, rubs, systolic murmur Vascular exam: PRESENT: normal capillary refill GI/Abdominal exam: PRESENT: normal bowel sounds, soft. ABSENT: distended, guarding, mass, organolmegaly, rebound, tenderness Rectal exam: PRESENT: deferred Neurological exam: PRESENT: alert, awake, oriented to person, oriented to place. ABSENT: motor sensory deficit Psychiatric exam: PRESENT: appropriate affect, normal mood. ABSENT: homicidal ideation, suicidal ideation Skin exam: PRESENT: dry, intact, warm. ABSENT: cyanosis, rash Results Laboratory Results: 11/26/19 03:59 11/26/19 03:59 Assessment & Plan - Diagnosis (1) Acute osteomyelitis of spine Is this a current diagnosis for this admission?: Yes (2) Chronic atrial fibrillation Is this a current diagnosis for this admission?: Yes (3) Status post laminectomy with spinal fusion Is this a current diagnosis for this admission?: Yes (4) Chronic obstructive pulmonary disease Qualifiers: COPD type: COPD with acute exacerbation Qualified Code(s): J44.1 - Chronic obstructive pulmonary disease with (acute) exacerbation Is this a current diagnosis for this admission?: Yes (5) Deep vein thrombosis (DVT) of right upper extremity Is this a current diagnosis for this admission?: Yes (6) End stage renal disease on dialysis Is this a current diagnosis for this admission?: Yes (7) Endocarditis due to methicillin susceptible Staphylococcus aureus (MSSA) Is this a current diagnosis for this admission?: Yes (8) Endocarditis of mitral valve Is this a current diagnosis for this admission?: Yes - Time Time Spent with patient: 15-24 minutes Level of Care: IMCU Medications reviewed and adjusted accordingly: Yes Anticipated discharge: Other Within: Other - Plan Summary Plan Summary: Continues the IV antibiotic continues to hemodialysis no other complaints today no other concerns from the nursing staff
[2019-11-27] MEDS: CINACALCET HCL 30 MG TABLET PO SCH (17:09)
[2019-11-27] MEDS: MORPHINE SULFATE 10 MG/ML INJ IV PRN (22:26)
[2019-11-27] MEDS: DIPHENHYDRAMINE HCL 25 MG CAPSULE PO PRN (22:26)
[2019-11-28] MEDS: CLONIDINE HCL 0.1 MG TABLET PO SCH ×3 (06:40→21:01)
[2019-11-28] MEDS: OXYCODONE HCL IR 5 MG TABLET PO PRN ×2 (06:40→21:01)
[2019-11-28] MEDS: CALCIUM ACETATE 667 MG CAPSULE PO SCH ×3 (07:58→17:20)
[2019-11-28] MEDS: POLYETHYLENE GLYCOL 3350 POWDER 17 GM/1 PACKET PO SCH ×3 (09:33→17:20)
[2019-11-28] MEDS: APIXABAN 2.5 MG TABLET PO SCH ×2 (09:33→17:20)
[2019-11-28] MEDS: SENNOSIDES/DOCUSATE 8.6-50 MG 1 EACH TABLET PO SCH ×2 (09:33→17:20)
[2019-11-28] MEDS: AMIODARONE HCL 200 MG TABLET PO SCH (09:33)
[2019-11-28] MEDS: FAMOTIDINE 20 MG TABLET PO SCH (09:33)
--- NOTE | 2019-11-28 09:35 | PDOC PROGRESS REPORT ---
Subjective Progress Note for:: 11/28/19 Subjective:: Patient is currently doing much better no fever no chills Patient is recently came from the [facility] status post laminectomy the cervical spine due to the persistent MRSA infections Patient is currently on a daptomycin's and doxycycline's Patient is currently on her dialysis patient No fever no chills Reason For Visit: MRSA SEPTICEMIA,RT KIDNEY CANCER Physical Exam Vital Signs: Temp Pulse Resp BP Pulse Ox 98.0 F 60 16 129/56 H 100 11/28/19 08:00 11/28/19 08:00 11/28/19 08:00 11/28/19 08:00 11/28/19 08:00 Intake & Output 11/27/19 11/28/19 11/29/19 06:59 06:59 06:59 Intake Total 2703 1057 Output Total 2000 0 Balance 703 1057 Weight 79.1 kg 80.4 kg General appearance: PRESENT: no acute distress, well-developed, well-nourished Head exam: PRESENT: atraumatic, normocephalic Eye exam: PRESENT: conjunctiva pink, EOMI, PERRLA. ABSENT: scleral icterus Ear exam: PRESENT: normal external ear exam Mouth exam: PRESENT: moist, tongue midline Neck exam: PRESENT: full ROM. ABSENT: carotid bruit, JVD, lymphadenopathy, thyromegaly Cardiovascular exam: PRESENT: RRR. ABSENT: diastolic murmur, rubs, systolic murmur Vascular exam: PRESENT: normal capillary refill GI/Abdominal exam: PRESENT: normal bowel sounds, soft. ABSENT: distended, guarding, mass, organolmegaly, rebound, tenderness Rectal exam: PRESENT: deferred Neurological exam: PRESENT: alert, awake, oriented to person, oriented to place, oriented to time, oriented to situation, CN II-XII grossly intact. ABSENT: motor sensory deficit Psychiatric exam: PRESENT: appropriate affect, normal mood. ABSENT: homicidal ideation, suicidal ideation Skin exam: PRESENT: dry, intact, warm. ABSENT: cyanosis, rash Results Laboratory Results: 11/26/19 03:59 11/26/19 03:59 Assessment & Plan - Diagnosis (1) Acute osteomyelitis of spine Is this a current diagnosis for this admission?: Yes (2) Chronic atrial fibrillation Is this a current diagnosis for this admission?: Yes (3) Status post laminectomy with spinal fusion Is this a current diagnosis for this admission?: Yes (4) Chronic obstructive pulmonary disease Qualifiers: COPD type: COPD with acute exacerbation Qualified Code(s): J44.1 - Chronic obstructive pulmonary disease with (acute) exacerbation Is this a current diagnosis for this admission?: Yes (5) Deep vein thrombosis (DVT) of right upper extremity Is this a current diagnosis for this admission?: Yes (6) End stage renal disease on dialysis Is this a current diagnosis for this admission?: Yes (7) Endocarditis due to methicillin susceptible Staphylococcus aureus (MSSA) Is this a current diagnosis for this admission?: Yes (8) Endocarditis of mitral valve Is this a current diagnosis for this admission?: Yes - Time Time Spent with patient: 15-24 minutes Level of Care: IMCU Medications reviewed and adjusted accordingly: Yes Anticipated discharge: Other Within: Other - Plan Summary Plan Summary: Continues the current medications
[2019-11-28] MEDS: DIPHENHYDRAMINE HCL 25 MG CAPSULE PO PRN (09:36)
[2019-11-28] MEDS: CINACALCET HCL 30 MG TABLET PO SCH (17:20)
[2019-11-28] MEDS: GUAIFENESIN SYRP 200 MG/10 ML UDC PO PRN (21:05)
[2019-11-29] MEDS ORDERED: HEPARIN SOD (PORCINE) 1,000 UNIT/ML 10 ML VIAL IV PRN (05:00)
[2019-11-29] MEDS ORDERED: EPOETIN ALFA-EPBX 30,000 UNIT in SYRINGE, DISPOSABLE, 1 EACH IV PRN (05:00)
[2019-11-29 05:59] LABS: HEMATOCRIT 27.8 % (37.9-51.0); HEMOGLOBIN 9.3 g/dL (13.5-17.0); MEAN CORPUSCULAR HEMOGLOBIN 28.1 pg (27.0-33.4); MEAN CORPUSCULAR HGB CONC 33.3 g/dL (32.0-36.0); MEAN CORPUSCULAR VOLUME 84 fl (80-97); PLATELET COUNT 250 10^3/uL (150-450); RED CELL DISTRIBUTION WIDTH 15.4 % (11.5-14.0); WHITE BLOOD COUNT 5.2 10^3/uL (4.0-10.5)
[2019-11-29 06:26] LABS: ANION GAP 11 (5-19); BLOOD UREA NITROGEN 43 mg/dL (7-20); CALCIUM 7.6 mg/dL (8.4-10.2); CARBON DIOXIDE 28 mmol/L (22-30); CHLORIDE 96 mmol/L (98-107); GLUCOSE 79 mg/dL (75-110); POTASSIUM 4.8 mmol/L (3.6-5.0)
[2019-11-29] MEDS: CLONIDINE HCL 0.1 MG TABLET PO SCH ×2 (08:37→23:32)
[2019-11-29] MEDS: CALCIUM ACETATE 667 MG CAPSULE PO SCH ×3 (08:38→17:08)
[2019-11-29] MEDS: FAMOTIDINE 20 MG TABLET PO SCH (11:16)
[2019-11-29] MEDS: APIXABAN 2.5 MG TABLET PO SCH ×2 (11:16→17:08)
[2019-11-29] MEDS: SENNOSIDES/DOCUSATE 8.6-50 MG 1 EACH TABLET PO SCH ×2 (11:16→17:08)
[2019-11-29] MEDS: AMIODARONE HCL 200 MG TABLET PO SCH (11:17)
[2019-11-29] MEDS: POLYETHYLENE GLYCOL 3350 POWDER 17 GM/1 PACKET PO SCH ×3 (11:17→17:36)
[2019-11-29] MEDS: TRAMADOL HCL 50 MG TABLET PO PRN (11:28)
--- NOTE | 2019-11-29 11:48 | PDOC PROGRESS REPORT ---
Subjective Progress Note for:: 11/29/19 Reason For Visit: Patient seen on dialysis today. Undergoing dialysis without any issues. Blood pressure seems to be dropping towards the end of dialysis. Patient denies any history of chest pain, shortness of breath, fever or chills. Labs and medications were reviewed. Dialysis orders were reviewed with the treating dialysis nurse. Physical Exam Vital Signs: Temp Pulse Resp BP Pulse Ox 98.0 F 61 18 125/55 L 99 11/29/19 03:55 11/29/19 07:00 11/29/19 03:55 11/29/19 03:55 11/29/19 03:55 Intake & Output 11/28/19 11/29/19 11/30/19 06:59 06:59 06:59 Intake Total 1057 748 Output Total 0 0 Balance 1057 748 Weight 80.4 kg 80.7 kg General appearance: PRESENT: no acute distress Respiratory exam: PRESENT: clear to auscultation dave. ABSENT: crackles Cardiovascular exam: PRESENT: +S1, +S2 GI/Abdominal exam: PRESENT: normal bowel sounds, soft. ABSENT: organomegaly, tenderness Extremities exam: ABSENT: joint swelling, pedal edema Neurological exam: PRESENT: alert Psychiatric exam: PRESENT: appropriate affect Results Laboratory Results: 11/29/19 05:25 11/29/19 05:25 11/29/19 11/29/19 05:25 05:25 WBC 5.2 RBC 3.30 L Hgb 9.3 L Hct 27.8 L MCV 84 MCH 28.1 MCHC 33.3 RDW 15.4 H Plt Count 250 Sodium 134.9 L Potassium 4.8 Chloride 96 L Carbon Dioxide 28 Anion Gap 11 BUN 43 H Creatinine 9.96 H Est GFR ( Amer) 6 L Glucose 79 Calcium 7.6 L Assessment & Plan - Diagnosis (1) Acute osteomyelitis of spine Is this a current diagnosis for this admission?: Yes Plan: Patient status post cervical laminectomy with fusion of spine at [facility]. He has had successful surgery and patient rehabbing very well currently. Apparently has got follow-up appointments with neurosurgery over there. Patient currently on IV daptomycin followed by long-term doxycycline as per plans and recommendations by [facility] neurosurgery. (2) End stage renal disease on dialysis Is this a current diagnosis for this admission?: Yes Plan: Patient undergoing dialysis without any issues. Vital signs are stable. Dialysis being supervised to ensure safe and smooth procedure. Plan to remove approximately 1-2 L as tolerated. Since blood pressure has dropped being towards end of dialysis. 1 am going to down titrate his clonidine to every 12 hours. Dialysis orders were reviewed the treating dialysis nurse. (3) Chronic atrial fibrillation Is this a current diagnosis for this admission?: Yes Plan: Presently rate controlled. (4) Status post laminectomy with spinal fusion Is this a current diagnosis for this admission?: Yes Plan: Stable. As mentioned earlier. MRSA bacteremia with Cervical spinal discitis and endocarditis and on IV daptomycin till 08 January.After that apparently is going to be on long-term doxycycline as per recommendations from neurosurgery on review of notes by Dr. Hannon. (5) Anemia in chronic kidney disease (CKD) Is this a current diagnosis for this admission?: Yes Plan: Erythropoietin (6) Endocarditis due to methicillin susceptible Staphylococcus aureus (MSSA) Is this a current diagnosis for this admission?: Yes Plan: On IV daptomycin till 08 January. Follow-up with cardiology for repeat [place] (7) Hypertension Is this a current diagnosis for this admission?: Yes Plan: Controlled 2to low normal. Cut back clonidine to every 12 hours. Monitor. (8) MRSA (methicillin resistant Staphylococcus aureus) septicemia Is this a current diagnosis for this admission?: Yes Plan: And resulted in valvular endocarditis and cervical spinal infection. Initially on vancomycin converted to daptomycin which he will complete on 08 January. Follow- up with [facility] neurosurgery as well as local cardiology for follow-up. 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 Dr. Hannon is in communication with them.
[2019-11-29] MEDS: DAPTOMYCIN 700 MG in NORMAL SALINE 50 ML IV SCH (17:08)
[2019-11-29] MEDS: CINACALCET HCL 30 MG TABLET PO SCH (17:08)
--- NOTE | 2019-11-29 19:18 | PDOC PROGRESS REPORT ---
Subjective Progress Note for:: 11/29/19 Subjective:: . Patient seen by the bedside, he has no new complaints., Patient awaiting a bed in the residential, he will require daptomycin for the MRSA septicemia, he received the antibiotic on dialysis days, because of the cost of the daptomycin the residential facility seems to be dragging their feet, discharge planners is trying to make provision for patient discharge as soon as the issue of the intravenous daptomycin is resolved Reason For Visit: MRSA SEPTICEMIA,RT KIDNEY CANCER Physical Exam Vital Signs: Temp Pulse Resp BP Pulse Ox 98.0 F 72 18 125/55 L 99 11/29/19 03:55 11/29/19 14:00 11/29/19 03:55 11/29/19 03:55 11/29/19 03:55 Intake & Output 11/28/19 11/29/19 11/30/19 06:59 06:59 06:59 Intake Total 1057 748 360 Output Total 0 0 2300 Balance 1057 748 -1940 Weight 80.4 kg 80.7 kg 80.7 kg General appearance: PRESENT: no acute distress Eye exam: PRESENT: PERRLA Respiratory exam: PRESENT: clear to auscultation dave Cardiovascular exam: PRESENT: +S1, +S2 GI/Abdominal exam: PRESENT: soft Neurological exam: PRESENT: alert Results Laboratory Results: 11/29/19 05:25 11/29/19 05:25 11/29/19 11/29/19 05:25 05:25 WBC 5.2 RBC 3.30 L Hgb 9.3 L Hct 27.8 L MCV 84 MCH 28.1 MCHC 33.3 RDW 15.4 H Plt Count 250 Sodium 134.9 L Potassium 4.8 Chloride 96 L Carbon Dioxide 28 Anion Gap 11 BUN 43 H Creatinine 9.96 H Est GFR ( Amer) 6 L Glucose 79 Calcium 7.6 L Assessment & Plan - Diagnosis (1) MRSA (methicillin resistant Staphylococcus aureus) septicemia Is this a current diagnosis for this admission?: Yes Plan: Continue IV daptomycin (2) Chronic atrial fibrillation Is this a current diagnosis for this admission?: Yes Plan: Continue Eliquis (3) End-stage renal disease on hemodialysis Is this a current diagnosis for this admission?: Yes Plan: Patient will continue hemodialysis per nephrology (4) Neoplasm of uncertain behavior of right kidney Is this a current diagnosis for this admission?: Yes (5) Status post laminectomy with spinal fusion Is this a current diagnosis for this admission?: Yes - Time Time Spent with patient: 25-34 minutes Level of Care: CU
[2019-11-30] MEDS: DIPHENHYDRAMINE HCL 25 MG CAPSULE PO PRN ×3 (03:30→20:37)
[2019-11-30] MEDS ORDERED: MORPHINE SULFATE 10 MG/ML INJ IV PRN (07:31)
[2019-11-30] MEDS: CALCIUM ACETATE 667 MG CAPSULE PO SCH ×3 (08:07→17:30)
[2019-11-30] MEDS: GUAIFENESIN SYRP 200 MG/10 ML UDC PO PRN (09:36)
[2019-11-30] MEDS: APIXABAN 2.5 MG TABLET PO SCH ×2 (09:37→17:30)
[2019-11-30] MEDS: FAMOTIDINE 20 MG TABLET PO SCH (09:37)
[2019-11-30] MEDS: POLYETHYLENE GLYCOL 3350 POWDER 17 GM/1 PACKET PO SCH ×3 (09:37→17:31)
[2019-11-30] MEDS: SENNOSIDES/DOCUSATE 8.6-50 MG 1 EACH TABLET PO SCH ×2 (09:37→17:30)
[2019-11-30] MEDS: AMIODARONE HCL 200 MG TABLET PO SCH (09:37)
[2019-11-30] MEDS: CLONIDINE HCL 0.1 MG TABLET PO SCH ×2 (09:44→21:44)
[2019-11-30] MEDS: CINACALCET HCL 30 MG TABLET PO SCH (17:30)
--- NOTE | 2019-11-30 20:59 | RADIOLOGY REPORT (SQ) ---
XR CHEST 1 VIEW EXAM DATE: 11/30/2019 5:35 PM CDT HISTORY: Shortness of breath. COMPARISON: 10/16/2019 FINDINGS: The heart size is enlarged with mild central pulmonary vascular congestion. No consolidation, pleural effusion, or pneumothorax is seen. There is a right hemodialysis catheter with the tip in the right atrium. IMPRESSION: Mild pulmonary edema pattern, without pleural effusions or consolidation.
[2019-11-30] MEDS: OXYCODONE HCL IR 5 MG TABLET PO PRN (21:45)
[2019-11-30] MEDS ORDERED: TUBERCULIN,PURIF.PROT.DERIV. 5 TU/0.1 ML TEST 1 ML VIAL ID ONE (22:00)
--- NOTE | 2019-11-30 23:02 | PDOC PROGRESS REPORT ---
Subjective Progress Note for:: 11/30/19 Subjective:: Patient seen by the bedside, he has a bed at [facility], [facility] dialysis once patient to be evaluated for hepatitis B and also a chest x-ray because patient will be returning as a new patient since he was out of outpatient dialysis for over a month. Hopefully he will be discharged to the snf on Reason For Visit: MRSA SEPTICEMIA,RT KIDNEY CANCER Physical Exam Vital Signs: Temp Pulse Resp BP Pulse Ox 98.3 F 64 22 H 122/58 L 97 11/30/19 19:34 11/30/19 19:34 11/30/19 19:34 11/30/19 19:34 11/30/19 19:34 Intake & Output 11/29/19 11/30/19 12/01/19 06:59 06:59 06:59 Intake Total 118 190 9698 Output Total 0 2300 1 Balance 748 -1446 1199 Weight 80.7 kg 80.9 kg General appearance: PRESENT: no acute distress Eye exam: PRESENT: PERRLA Respiratory exam: PRESENT: clear to auscultation dave Cardiovascular exam: PRESENT: +S1, +S2 GI/Abdominal exam: PRESENT: soft Neurological exam: PRESENT: alert Results Laboratory Results: 11/29/19 05:25 11/29/19 05:25 Impressions: Chest X-Ray 11/30/19 17:35 IMPRESSION: Mild pulmonary edema pattern, without pleural effusions or consolidation. Assessment & Plan - Diagnosis (1) MRSA (methicillin resistant Staphylococcus aureus) septicemia Is this a current diagnosis for this admission?: Yes Plan: Continue IV daptomycin (2) Chronic atrial fibrillation Is this a current diagnosis for this admission?: Yes Plan: Continue Eliquis (3) End-stage renal disease on hemodialysis Is this a current diagnosis for this admission?: Yes Plan: Patient will continue hemodialysis per nephrology (4) Neoplasm of uncertain behavior of right kidney Is this a current diagnosis for this admission?: Yes (5) Status post laminectomy with spinal fusion Is this a current diagnosis for this admission?: Yes - Time Time Spent with patient: 35 or more minutes Level of Care: IMCU
[2019-12-01 05:53] LABS: ABSOLUTE RETICS # 0.087 10^6/uL (0.028-0.122); HEMATOCRIT 25.7 % (37.9-51.0); HEMOGLOBIN 8.3 g/dL (13.5-17.0); MEAN CORPUSCULAR HEMOGLOBIN 27.7 pg (27.0-33.4); MEAN CORPUSCULAR HGB CONC 32.4 g/dL (32.0-36.0); MEAN CORPUSCULAR VOLUME 85 fl (80-97); PLATELET COUNT 276 10^3/uL (150-450); RED BLOOD COUNT 3.01 10^6/uL (4.35-5.55); RED CELL DISTRIBUTION WIDTH 15.9 % (11.5-14.0); RETICULOCYTE COUNT (AUTO) 2.88 % (0.66-2.85); WHITE BLOOD COUNT 5.9 10^3/uL (4.0-10.5)
[2019-12-01] MEDS: OXYCODONE HCL IR 5 MG TABLET PO PRN (05:57)
[2019-12-01 06:12] LABS: ANION GAP 10 (5-19); BLOOD UREA NITROGEN 38 mg/dL (7-20); CALCIUM 7.9 mg/dL (8.4-10.2); CARBON DIOXIDE 30 mmol/L (22-30); CHLORIDE 96 mmol/L (98-107); GLUCOSE 80 mg/dL (75-110); IRON(TIBC) 36.5 ug/dL (49-181); POTASSIUM 4.4 mmol/L (3.6-5.0)
[2019-12-01] MEDS: DIPHENHYDRAMINE HCL 25 MG CAPSULE PO PRN (06:27)
[2019-12-01] MEDS ORDERED: EPOETIN ALFA-EPBX 30,000 UNIT in SYRINGE, DISPOSABLE, 1 EACH IV PRN (06:27)
[2019-12-01] MEDS ORDERED: HEPARIN SOD (PORCINE) 1,000 UNIT/ML 10 ML VIAL IV PRN (06:27)
[2019-12-01 07:19] LABS: FOLATE 4.68 ng/mL (>2.76)
[2019-12-01] MEDS: CALCIUM ACETATE 667 MG CAPSULE PO SCH ×3 (11:07→16:18)
[2019-12-01] MEDS: CLONIDINE HCL 0.1 MG TABLET PO SCH ×2 (11:35→23:40)
[2019-12-01] MEDS: POLYETHYLENE GLYCOL 3350 POWDER 17 GM/1 PACKET PO SCH ×3 (11:36→18:15)
[2019-12-01] MEDS: APIXABAN 2.5 MG TABLET PO SCH ×2 (11:36→18:15)
[2019-12-01] MEDS: SENNOSIDES/DOCUSATE 8.6-50 MG 1 EACH TABLET PO SCH ×2 (11:36→18:15)
[2019-12-01] MEDS: AMIODARONE HCL 200 MG TABLET PO SCH (11:36)
[2019-12-01] MEDS: FAMOTIDINE 20 MG TABLET PO SCH (11:42)
--- NOTE | 2019-12-01 11:48 | PDOC PROGRESS REPORT ---
Subjective Progress Note for:: 12/01/19 Reason For Visit: Patient seen on dialysis today. Undergoing dialysis without any issues. Denies any history of chest pain, shortness of breath, fever or chills. Labs and medications were reviewed. Dialysis orders were reviewed with the treating dialysis nurse. Physical Exam Vital Signs: Temp Pulse Resp BP Pulse Ox 97.8 F 57 L 18 110/56 L 100 12/01/19 11:11 12/01/19 11:11 12/01/19 11:11 12/01/19 11:11 12/01/19 11:11 Intake & Output 11/30/19 12/01/19 12/02/19 06:59 06:59 06:59 Intake Total 854 1320 Output Total 2300 1 Balance -1446 1319 Weight 80.9 kg 85.4 kg General appearance: PRESENT: no acute distress Respiratory exam: PRESENT: clear to auscultation dave. ABSENT: crackles Cardiovascular exam: PRESENT: +S1, +S2 GI/Abdominal exam: PRESENT: normal bowel sounds, soft. ABSENT: organomegaly, tenderness Extremities exam: ABSENT: pedal edema Neurological exam: PRESENT: alert, awake, oriented to person, oriented to place Psychiatric exam: PRESENT: appropriate affect Results Laboratory Results: 12/01/19 05:20 12/01/19 05:20 12/01/19 12/01/19 05:20 05:20 WBC 5.9 RBC 3.01 L Hgb 8.3 L Hct 25.7 L MCV 85 MCH 27.7 MCHC 32.4 RDW 15.9 H Plt Count 276 Retic Count (auto) 2.88 H Sodium 136.3 L Potassium 4.4 Chloride 96 L Carbon Dioxide 30 Anion Gap 10 BUN 38 H Creatinine 10.16 H Est GFR ( Amer) 6 L Glucose 80 Calcium 7.9 L Iron 36.5 L TIBC 160 L % Saturation 23 Ferritin 466.00 H Vitamin B12 817.0 Folate 4.68 Impressions: Chest X-Ray 11/30/19 17:35 IMPRESSION: Mild pulmonary edema pattern, without pleural effusions or consolidation. Assessment & Plan - Diagnosis (1) Acute osteomyelitis of spine Is this a current diagnosis for this admission?: Yes Plan: Patient status post cervical laminectomy with fusion of spine at [facility]. He has had successful surgery and patient rehabbing very well currently. Apparently has got follow-up appointments with neurosurgery over there. Patient currently on IV daptomycin followed by long-term doxycycline as per plans and recommendations by [facility] neurosurgery. (2) End stage renal disease on dialysis Is this a current diagnosis for this admission?: Yes Plan: Patient undergoing dialysis without any issues. Vital signs are stable. Dialysis being supervised to ensure safe and smooth procedure. Plan to remove approximately 1-2 L as tolerated. Dialysis orders were reviewed the treating dialysis nurse. (3) Chronic atrial fibrillation Is this a current diagnosis for this admission?: Yes Plan: Presently rate controlled. (4) Status post laminectomy with spinal fusion Is this a current diagnosis for this admission?: Yes Plan: Stable. As mentioned earlier. MRSA bacteremia with Cervical spinal discitis and endocarditis and on IV daptomycin till 08 January.After that apparently is going to be on long-term doxycycline as per recommendations from neurosurgery on review of notes by Dr. Hannon. (5) Anemia in chronic kidney disease (CKD) Is this a current diagnosis for this admission?: Yes Plan: Erythropoietin (6) Endocarditis due to methicillin susceptible Staphylococcus aureus (MSSA) Is this a current diagnosis for this admission?: Yes Plan: On IV daptomycin till 08 January. Follow-up with cardiology for repeat [place] (7) Hypertension Is this a current diagnosis for this admission?: Yes Plan: Controlled. Monitor. (8) MRSA (methicillin resistant Staphylococcus aureus) septicemia Is this a current diagnosis for this admission?: Yes Plan: And resulted in valvular endocarditis and cervical spinal infection. Initially on vancomycin converted to daptomycin which he will complete on 08 January. Follow- up with [facility] neurosurgery as well as local cardiology for follow-up. (9) Neoplasm of uncertain behavior of right kidney Is this a current diagnosis for this admission?: Yes Plan: To be evaluated by [facility] urology after completion of antibiotics. Dr. Hannon is in communication with them.
[2019-12-01] MEDS: DAPTOMYCIN 700 MG in NORMAL SALINE 50 ML IV SCH (18:14)
[2019-12-01] MEDS: CINACALCET HCL 30 MG TABLET PO SCH (18:15)
[2019-12-01] MEDS: TRAMADOL HCL 50 MG TABLET PO PRN (18:15)
--- NOTE | 2019-12-01 20:12 | PDOC PROGRESS REPORT ---
Subjective Progress Note for:: 12/01/19 Subjective:: Patient seen by the bedside no new complaints Reason For Visit: MRSA SEPTICEMIA,RT KIDNEY CANCER Physical Exam Vital Signs: Temp Pulse Resp BP Pulse Ox 98.6 F 65 18 105/53 L 100 12/01/19 15:11 12/01/19 15:11 12/01/19 15:11 12/01/19 15:11 12/01/19 14:25 Intake & Output 11/30/19 12/01/19 12/02/19 06:59 06:59 06:59 Intake Total 854 1320 750 Output Total 2300 1 2000 Balance -1446 1319 -1251 Weight 80.9 kg 85.4 kg General appearance: PRESENT: no acute distress Eye exam: PRESENT: PERRLA Respiratory exam: PRESENT: clear to auscultation dave Cardiovascular exam: PRESENT: +S1, +S2 GI/Abdominal exam: PRESENT: soft Neurological exam: PRESENT: alert Results Laboratory Results: 12/01/19 05:20 12/01/19 05:20 12/01/19 12/01/19 05:20 05:20 WBC 5.9 RBC 3.01 L Hgb 8.3 L Hct 25.7 L MCV 85 MCH 27.7 MCHC 32.4 RDW 15.9 H Plt Count 276 Retic Count (auto) 2.88 H Sodium 136.3 L Potassium 4.4 Chloride 96 L Carbon Dioxide 30 Anion Gap 10 BUN 38 H Creatinine 10.16 H Est GFR ( Amer) 6 L Glucose 80 Calcium 7.9 L Iron 36.5 L TIBC 160 L % Saturation 23 Ferritin 466.00 H Vitamin B12 817.0 Folate 4.68 11/26/19 15:04 Blood Blood Culture - Final NO GROWTH IN 5 DAYS 11/26/19 14:26 Blood Blood Culture - Final NO GROWTH IN 5 DAYS Impressions: Chest X-Ray 11/30/19 17:35 IMPRESSION: Mild pulmonary edema pattern, without pleural effusions or consolidation. Assessment & Plan - Diagnosis (1) MRSA (methicillin resistant Staphylococcus aureus) septicemia Is this a current diagnosis for this admission?: Yes (2) Chronic atrial fibrillation Is this a current diagnosis for this admission?: Yes (3) End-stage renal disease on hemodialysis Is this a current diagnosis for this admission?: Yes (4) Neoplasm of uncertain behavior of right kidney Is this a current diagnosis for this admission?: Yes (5) Status post laminectomy with spinal fusion Is this a current diagnosis for this admission?: Yes - Time Time Spent with patient: 15-24 minutes
[2019-12-02 06:55] LABS: HEPATITS B SURFACE ANTIGEN Negative (Negative)
[2019-12-02] MEDS: DIPHENHYDRAMINE HCL 25 MG CAPSULE PO PRN ×2 (07:47→21:06)
[2019-12-02] MEDS: CALCIUM ACETATE 667 MG CAPSULE PO SCH ×3 (10:24→16:38)
[2019-12-02] MEDS: AMIODARONE HCL 200 MG TABLET PO SCH (10:40)
[2019-12-02] MEDS: POLYETHYLENE GLYCOL 3350 POWDER 17 GM/1 PACKET PO SCH ×3 (10:40→17:47)
[2019-12-02] MEDS: SENNOSIDES/DOCUSATE 8.6-50 MG 1 EACH TABLET PO SCH ×2 (10:40→17:47)
[2019-12-02] MEDS: CLONIDINE HCL 0.1 MG TABLET PO SCH ×2 (10:40→21:05)
[2019-12-02] MEDS: APIXABAN 2.5 MG TABLET PO SCH ×2 (10:40→17:46)
[2019-12-02] MEDS: FAMOTIDINE 20 MG TABLET PO SCH (10:41)
[2019-12-02] MEDS: TRAMADOL HCL 50 MG TABLET PO PRN ×2 (16:38)
[2019-12-02] MEDS: CINACALCET HCL 30 MG TABLET PO SCH (17:47)
--- NOTE | 2019-12-02 19:10 | PDOC PROGRESS REPORT ---
Subjective Progress Note for:: 12/02/19 Subjective:: Patient seen by the bedside no new complaints Reason For Visit: MRSA SEPTICEMIA,RT KIDNEY CANCER Physical Exam Vital Signs: Temp Pulse Resp BP Pulse Ox 97.9 F 62 16 105/41 L 100 12/02/19 15:12 12/02/19 15:12 12/02/19 15:12 12/02/19 15:12 12/02/19 15:12 Intake & Output 12/01/19 12/02/19 12/03/19 06:59 06:59 06:59 Intake Total 1320 860 Output Total 1 2000 Balance 1319 -1141 Weight 85.4 kg 82.8 kg General appearance: PRESENT: no acute distress Eye exam: PRESENT: PERRLA Respiratory exam: PRESENT: clear to auscultation dave Cardiovascular exam: PRESENT: +S1, +S2 GI/Abdominal exam: PRESENT: soft Neurological exam: PRESENT: alert Results Laboratory Results: 12/01/19 05:20 12/01/19 05:20 11/26/19 15:04 Blood Blood Culture - Final NO GROWTH IN 5 DAYS Impressions: Chest X-Ray 11/30/19 17:35 IMPRESSION: Mild pulmonary edema pattern, without pleural effusions or consolidation. Assessment & Plan - Diagnosis (1) MRSA (methicillin resistant Staphylococcus aureus) septicemia Is this a current diagnosis for this admission?: Yes (2) Chronic atrial fibrillation Is this a current diagnosis for this admission?: Yes (3) End-stage renal disease on hemodialysis Is this a current diagnosis for this admission?: Yes (4) Neoplasm of uncertain behavior of right kidney Is this a current diagnosis for this admission?: Yes (5) Status post laminectomy with spinal fusion Is this a current diagnosis for this admission?: Yes - Time Time Spent with patient: Less than 15 minutes Level of Care: IMCU - Plan Summary Plan Summary: Continue Present line of management
[2019-12-02] MEDS: OXYCODONE HCL IR 5 MG TABLET PO PRN (21:05)
[2019-12-03] MEDS ORDERED: HEPARIN SOD (PORCINE) 1,000 UNIT/ML 10 ML VIAL IV PRN (05:00)
[2019-12-03] MEDS ORDERED: EPOETIN ALFA-EPBX 30,000 UNIT in SYRINGE, DISPOSABLE, 1 EACH IV PRN (05:00)
[2019-12-03 06:27] LABS: HEMATOCRIT 27.3 % (37.9-51.0); MEAN CORPUSCULAR HEMOGLOBIN 28.4 pg (27.0-33.4); MEAN CORPUSCULAR HGB CONC 32.9 g/dL (32.0-36.0); MEAN CORPUSCULAR VOLUME 86 fl (80-97); PLATELET COUNT 253 10^3/uL (150-450); RED BLOOD COUNT 3.16 10^6/uL (4.35-5.55); RED CELL DISTRIBUTION WIDTH 16.7 % (11.5-14.0); WHITE BLOOD COUNT 5.6 10^3/uL (4.0-10.5)
[2019-12-03 06:50] LABS: ANION GAP 11 (5-19); BLOOD UREA NITROGEN 35 mg/dL (7-20); CALCIUM 8.2 mg/dL (8.4-10.2); CARBON DIOXIDE 29 mmol/L (22-30); CHLORIDE 96 mmol/L (98-107); GLUCOSE 83 mg/dL (75-110); POTASSIUM 4.4 mmol/L (3.6-5.0)
[2019-12-03] MEDS: CALCIUM ACETATE 667 MG CAPSULE PO SCH ×3 (09:43→17:21)
[2019-12-03] MEDS: AMIODARONE HCL 200 MG TABLET PO SCH (10:58)
[2019-12-03] MEDS: APIXABAN 2.5 MG TABLET PO SCH ×2 (10:58→17:21)
[2019-12-03] MEDS: SENNOSIDES/DOCUSATE 8.6-50 MG 1 EACH TABLET PO SCH ×2 (10:58→17:21)
--- NOTE | 2019-12-03 11:23 | PDOC PROGRESS REPORT ---
Subjective Progress Note for:: 12/03/19 Reason For Visit: Patient seen today on dialysis. Undergoing dialysis without any issues. Vital signs are stable. Patient denies history of chest pain, shortness of breath, fever or chills. His leg weakness is also markedly improving. Labs and medications were reviewed. Dialysis orders were reviewed with the treating dialysis nurse. His labs are the best that I have seen since first saw him and his blood pressure is the best well-controlled ever that shows compliance with medications like he has never been since in the hospital really works. Physical Exam Vital Signs: Temp Pulse Resp BP Pulse Ox 98.7 F 62 18 110/57 L 98 12/03/19 04:00 12/03/19 07:00 12/03/19 04:00 12/03/19 04:00 12/03/19 04:00 Intake & Output 12/02/19 12/03/19 12/04/19 06:59 06:59 06:59 Intake Total 860 940 Output Total 2000 Balance -1141 940 Weight 82.8 kg 82.4 kg General appearance: PRESENT: no acute distress Respiratory exam: PRESENT: clear to auscultation dave. ABSENT: crackles Cardiovascular exam: PRESENT: +S1, +S2 GI/Abdominal exam: PRESENT: normal bowel sounds, soft. ABSENT: organomegaly, tenderness Neurological exam: PRESENT: alert, awake, oriented to person, oriented to place Psychiatric exam: PRESENT: appropriate affect Results Laboratory Results: 12/03/19 06:06 12/03/19 06:06 12/03/19 12/03/19 06:06 06:06 WBC 5.6 RBC 3.16 L Hgb 9.0 L Hct 27.3 L MCV 86 MCH 28.4 MCHC 32.9 RDW 16.7 H Plt Count 253 Sodium 135.8 L Potassium 4.4 Chloride 96 L Carbon Dioxide 29 Anion Gap 11 BUN 35 H Creatinine 9.56 H Est GFR ( Amer) 7 L Glucose 83 Calcium 8.2 L Impressions: Chest X-Ray 11/30/19 17:35 IMPRESSION: Mild pulmonary edema pattern, without pleural effusions or consolidation. Assessment & Plan - Diagnosis (1) Acute osteomyelitis of spine Is this a current diagnosis for this admission?: Yes Plan: Patient status post cervical laminectomy with fusion of spine at [facility]. He has had successful surgery and patient rehabbing very well currently. Apparently has got follow-up appointments with neurosurgery over there. Patient currently on IV daptomycin followed by long-term doxycycline as per plans and recommendations by [facility] neurosurgery. (2) End stage renal disease on dialysis Is this a current diagnosis for this admission?: Yes Plan: Patient undergoing dialysis without any issues. Vital signs are stable. Dialysis being supervised to ensure safe and smooth procedure. Plan to remove approximately 1-2 L as tolerated. Dialysis orders were reviewed the treating dialysis nurse. (3) Chronic atrial fibrillation Is this a current diagnosis for this admission?: Yes Plan: Presently rate controlled. (4) Status post laminectomy with spinal fusion Is this a current diagnosis for this admission?: Yes Plan: Stable. As mentioned earlier. MRSA bacteremia with Cervical spinal discitis and endocarditis and on IV daptomycin till 08 January.After that apparently is going to be on long-term doxycycline as per recommendations from neurosurgery on review of notes by Dr. Hannon. (5) Anemia in chronic kidney disease (CKD) Is this a current diagnosis for this admission?: Yes Plan: Erythropoietin. Improving. Monitor. (6) Endocarditis due to methicillin susceptible Staphylococcus aureus (MSSA) Is this a current diagnosis for this admission?: Yes Plan: On IV daptomycin till 08 January. Follow-up with cardiology for repeat [place] (7) Hypertension Is this a current diagnosis for this admission?: Yes Plan: Controlled. His blood pressures since have known him on dialysis for quite a few years has never been this well controlled on such a few medications showing compliance works wonders. Monitor. (8) MRSA (methicillin resistant Staphylococcus aureus) septicemia Is this a current diagnosis for this admission?: Yes Plan: And resulted in valvular endocarditis and cervical spinal infection. Initially on vancomycin converted to daptomycin which he will complete on 08 January. Follow- up with [facility] neurosurgery as well as local cardiology for follow-up. (9) Neoplasm of uncertain behavior of right kidney Is this a current diagnosis for this admission?: Yes Plan: To be evaluated by [facility] urology after completion of antibiotics. Dr. Hannon is in communication with them.
[2019-12-03] MEDS: POLYETHYLENE GLYCOL 3350 POWDER 17 GM/1 PACKET PO SCH ×3 (11:25→17:35)
[2019-12-03] MEDS: FAMOTIDINE 20 MG TABLET PO SCH (11:26)
[2019-12-03] MEDS: CLONIDINE HCL 0.1 MG TABLET PO SCH ×2 (11:49→22:21)
[2019-12-03] MEDS: OXYCODONE HCL IR 5 MG TABLET PO PRN ×2 (13:48→22:20)
[2019-12-03] MEDS: DAPTOMYCIN 700 MG in NORMAL SALINE 50 ML IV SCH (17:19)
[2019-12-03] MEDS: CINACALCET HCL 30 MG TABLET PO SCH (17:21)
--- NOTE | 2019-12-03 20:14 | PDOC TRANSFER SUMMARY ---
Impression - Admit/DC Date/PCP Admission Date/Primary Care Provider: 11/23/19 20:10 СВЕТЛАНА WHEELER MD Discharge Date: 12/04/19 - Discharge Diagnosis (1) MRSA (methicillin resistant Staphylococcus aureus) septicemia Is this a current diagnosis for this admission?: Yes (2) Chronic atrial fibrillation Is this a current diagnosis for this admission?: Yes (3) End-stage renal disease on hemodialysis Is this a current diagnosis for this admission?: Yes (4) Neoplasm of uncertain behavior of right kidney Is this a current diagnosis for this admission?: Yes (5) Status post laminectomy with spinal fusion Is this a current diagnosis for this admission?: Yes (6) Acute osteomyelitis of spine Is this a current diagnosis for this admission?: Yes (7) Anemia in chronic kidney disease (CKD) Is this a current diagnosis for this admission?: Yes (8) Chronic obstructive pulmonary disease Is this a current diagnosis for this admission?: Yes (9) End stage renal disease on dialysis Is this a current diagnosis for this admission?: Yes (10) Endocarditis due to methicillin susceptible Staphylococcus aureus (MSSA) Is this a current diagnosis for this admission?: Yes (11) Lymphedema of right upper extremity Is this a current diagnosis for this admission?: Yes - Additional Information Resuscitation Status: Full Code Referrals: СВЕТЛАНА WHEELER MD [Primary Care Provider] - Home Medications: Acetaminophen [Tylenol 325 mg Tablet] 650 mg PO Q6HP PRN 11/24/19 Albumin Human [Albuminar-25] 25 gm IV .DIALYSIS PRN 11/24/19 Albuterol Sulfate [Ventolin 0.083% Neb 2.5 mg/3 mL Ampul] 1 vial NEB RTQ4HP PRN MDD TAKE WITH ATROVENT 11/24/19 Amiodarone HCl [Cordarone 200 mg Tablet] 200 mg PO DAILY 11/24/19 Calcium Acetate [Phoslo 667 mg Capsule] 667 mg PO MEALS 11/24/19 Cinacalcet HCl [Sensipar 30 mg Tablet] 30 mg PO DAILY 11/24/19 Clonidine HCl [Catapres 0.1 mg Tablet] 0.1 mg PO Q8 11/24/19 Daptomycin [Cubicin Inj 500 mg Vial] 1,000 mg IV FR@1800 11/24/19 Daptomycin [Cubicin Inj 500 mg Vial] 700 mg IV MOWE@1800 11/24/19 Epoetin Herrera-Epbx [Retacrit 2,000 Unit/ml Vial (Renal)] 4,000 unit IV .DIALYSIS 11/24/19 Famotidine [Pepcid 20 mg Tablet] 20 mg PO DAILY 11/24/19 Guaifenesin [Robitussin Syrup 200 mg/10 ml Ud Cup] 200 mg PO Q8HP PRN 11/24/19 Ipratropium [place] [Atrovent 0.02% Neb 0.5 mg/2.5 ml Ampul] 0.5 mg NEB RTQ4HP PRN MDD TAKE WITH ALBUTEROL 11/24/19 Lactulose [Cephulac Syrup 20 gm/30 ml Udcup] 10 gm PO DAILYP PRN 11/24/19 Polyethylene Glycol 3350 [Miralax Powder 17 gm/Packet] 1 packet PO TID 11/24/19 Sennosides [Senna] 17.2 mg PO BID 11/24/19 Apixaban [Eliquis 2.5 mg Tablet] 2.5 mg PO BID tablet 12/03/19 Tramadol HCl [Ultram 50 mg Tablet] 50 mg PO Q6HP PRN tablet 12/03/19 History of Present Illiness History of Present Illness: OLINDA OCAMPO is a 58 year old male, he has end-stage renal disease on maintenance hemodialysis, he was recently transferred to [facility] on 11/13/2019, he was transferred back to this hospital on 11/23/2019. He has MRSA bacteremia complicated with endocarditis, osteomyelitis he underwent C3-C4 laminectomy with decompression of the vertebral, this was done on 11/18/2019 there was no focal neurologic deficit post operative procedure according to neurosurgery [facility] patient can resume DVT prophylaxis but no anticoagulation until November 25, 2019. Patient still have lexus in place neurosurgery recommend staple remover on postoperative day 14, 12/02/2019,, recommendation is for patient to have imaging after lexus removed. He was also evaluated by nephrology while in [facility], the hemodialysis catheter in the groin was removed and a temporary IJ hemodialysis was placed [facility], regarding the right renal mass this was not evaluated by [facility] urology because of ongoing infection, [facility] urology wound infection resolved before further evaluation of this renal mass he will need follow-up with urology patient prefer [facility] urology but for transportation issue that could be challenging to achieve. Patient still on daptomycin for the MRSA bacteremia the daptomycin was initiated before transfer to [facility], blood culture cleared on this regimen 8 3 is recommended for the daptomycin this will finish on 01/09/2020 patient is transferred back to this hospital, he will continue daptomycin will make arrangement for patient to go to a intermediate to continue his regimen and also follow-up with [facility] urology. Hospital Course Hospital Course: MRSA septicemia/MRSA mitral valve endocarditis. Patient to continue intravenous daptomycin on dialysis days, post dialysis treatment till January 09, 2020 Neoplasm of uncertain behavior of right kidney He has neoplasm of the right kidney most likely malignant, the intermediate shall contact [facility] urology to arrange for follow-up of this patient End-stage renal disease on hemodialysis Patient shall continue dialysis supervised by his floor tech Acute osteomyelitis of cervical spine Patient is status post cervical laminectomy with fusion of the spine at [facility] the instrumentation of the spine was done in the setting of infection, the neurosurgeon recommend long-term tetracycline therapy past the time he finishes the daptomycin. Do not see nausea consult with [facility] neurosurgery to arrange follow-up for this patient Chronic atrial fibrillation Patient will continue present treatment with metoprolol, Eliquis to follow with Dr. Zhong, cardiology Physical Exam Vital Signs: Temp Pulse Resp BP Pulse Ox 98.6 F 58 L 18 117/65 91 L 12/03/19 15:30 12/03/19 15:30 12/03/19 15:30 12/03/19 15:30 12/03/19 15:30 Intake & Output 12/02/19 12/03/19 12/04/19 06:59 06:59 06:59 Intake Total 860 940 610 Output Total 2000 2599 Balance -1141 940 Weight 82.8 kg 82.4 kg General appearance: PRESENT: no acute distress Eye exam: PRESENT: PERRLA Respiratory exam: PRESENT: clear to auscultation dave Cardiovascular exam: PRESENT: +S1, +S2 GI/Abdominal exam: PRESENT: soft Neurological exam: PRESENT: alert Results Laboratory Results: WBC 5.6 10^3/uL (4.0-10.5) 12/03/19 06:06 RBC 3.16 10^6/uL (4.35-5.55) L 12/03/19 06:06 Hgb 9.0 g/dL (13.5-17.0) L 12/03/19 06:06 Hct 27.3 % (37.9-51.0) L 12/03/19 06:06 MCV 86 fl (80-97) 12/03/19 06:06 MCH 28.4 pg (27.0-33.4) 12/03/19 06:06 MCHC 32.9 g/dL (32.0-36.0) 12/03/19 06:06 RDW 16.7 % (11.5-14.0) H 12/03/19 06:06 Plt Count 253 10^3/uL (150-450) 12/03/19 06:06 Lymph % (Auto) 23.4 % (13-45) 11/26/19 03:59 [place] % (Auto) 15.8 % (3-13) H 11/26/19 03:59 Eos % (Auto) 4.4 % (0-6) 11/26/19 03:59 Baso % (Auto) 1.2 % (0-2) 11/26/19 03:59 Reticulocyte # 0.087 10^6/uL (0.028-0.122) 12/01/19 05:20 Absolute Neuts (auto) 3.4 10^3/uL (1.7-8.2) 11/26/19 03:59 Absolute Lymphs (auto) 1.5 10^3/uL (0.5-4.7) 11/26/19 03:59 Absolute Monos (auto) 1.0 10^3/uL (0.1-1.4) 11/26/19 03:59 Absolute Eos (auto) 0.3 10^3/uL (0.0-0.6) 11/26/19 03:59 Absolute Basos (auto) 0.1 10^3/uL (0.0-0.2) 11/26/19 03:59 Seg Neutrophils % 55.2 % (42-78) 11/26/19 03:59 Retic Count (auto) 2.88 % (0.66-2.85) H 12/01/19 05:20 Sodium 135.8 mmol/L (137-145) L 12/03/19 06:06 Potassium 4.4 mmol/L (3.6-5.0) 12/03/19 06:06 Chloride 96 mmol/L (98-107) L 12/03/19 06:06 Carbon Dioxide 29 mmol/L (22-30) 12/03/19 06:06 Anion Gap 11 (5-19) 12/03/19 06:06 BUN 35 mg/dL (7-20) H 12/03/19 06:06 Creatinine 9.56 mg/dL (0.52-1.25) H 12/03/19 06:06 Est GFR ( Amer) 7 (>60) L 12/03/19 06:06 Est GFR (MDRD) Non-Af 6 (>60) L 12/03/19 06:06 Glucose 83 mg/dL (75-110) 12/03/19 06:06 Calcium 8.2 mg/dL (8.4-10.2) L 12/03/19 06:06 Phosphorus 2.8 mg/dL (2.5-4.5) 11/24/19 16:09 Iron 36.5 ug/dL (49-181) L 12/01/19 05:20 TIBC 160 ug/dL (250-450) L 12/01/19 05:20 % Saturation 23 % 12/01/19 05:20 Ferritin 466.00 ng/mL (17.9-464.0) H 12/01/19 05:20 Total Bilirubin 0.5 mg/dL (0.2-1.3) 11/24/19 05:18 Direct Bilirubin 0.5 mg/dL (0.0-0.4) H 11/24/19 05:18 Neonat Total Bilirubin Not Reportable 11/24/19 05:18 Neonat Direct Bilirubin Not Reportable 11/24/19 05:18 Neonat Indirect Bili Not Reportable 11/24/19 05:18 AST 24 U/L (17-59) 11/24/19 05:18 ALT < 4 U/L (<50) 11/24/19 05:18 Alkaline Phosphatase 82 U/L (38-126) 11/24/19 05:18 Total Protein 8.0 g/dL (6.3-8.2) 11/24/19 05:18 Albumin 2.8 g/dL (3.5-5.0) L 11/24/19 05:18 Vitamin B12 817.0 pg/mL (239-931) 12/01/19 05:20 Folate 4.68 ng/mL (>2.76) 12/01/19 05:20 PTH Intact 205.2 pg/mL (10.0-65.0) H 11/24/19 16:09 Hep Bs Antigen Negative (Negative) 11/30/19 19:06 Impressions: Chest X-Ray 11/30/19 17:35 IMPRESSION: Mild pulmonary edema pattern, without pleural effusions or consolidation. Plan Plan of Treatment: I will summarize the plan of care for this patient in the intermediate patient will be transfer to the intermediate for physical therapy and continue to of care. He has MRSA endocarditis he will need to finish intravenous daptomycin through Jan 09 2020The intermediate shall call [facility] urology for follow-up appointment for this patient regarding the neoplasm of the right kidneyThe intermediate shall call [facility] neurosurgery to obtain appointment regarding the cervical laminectomy with fusion of the spine Stroke Is this a Stroke Patient?: No Acute Heart Failure - Is this a Heart Failure Patient?: No
--- NOTE | 2019-12-03 20:18 | PDOC PROGRESS REPORT ---
Subjective Progress Note for:: 12/03/19 Subjective:: Patient seen by the bedside, there is no new complaint, scheduled for transfer tomorrow Reason For Visit: MRSA SEPTICEMIA,RT KIDNEY CANCER Physical Exam Vital Signs: Temp Pulse Resp BP Pulse Ox 98.6 F 58 L 18 117/65 91 L 12/03/19 15:30 12/03/19 15:30 12/03/19 15:30 12/03/19 15:30 12/03/19 15:30 Intake & Output 12/02/19 12/03/19 12/04/19 06:59 06:59 06:59 Intake Total 860 940 610 Output Total 20000 Balance -1141 940 -1989 Weight 82.8 kg 82.4 kg General appearance: PRESENT: no acute distress Eye exam: PRESENT: PERRLA Respiratory exam: PRESENT: clear to auscultation dave Cardiovascular exam: PRESENT: +S1, +S2 GI/Abdominal exam: PRESENT: soft Neurological exam: PRESENT: alert Results Laboratory Results: 12/03/19 06:06 12/03/19 06:06 12/03/19 12/03/19 06:06 06:06 WBC 5.6 RBC 3.16 L Hgb 9.0 L Hct 27.3 L MCV 86 MCH 28.4 MCHC 32.9 RDW 16.7 H Plt Count 253 Sodium 135.8 L Potassium 4.4 Chloride 96 L Carbon Dioxide 29 Anion Gap 11 BUN 35 H Creatinine 9.56 H Est GFR ( Amer) 7 L Glucose 83 Calcium 8.2 L Impressions: Chest X-Ray 11/30/19 17:35 IMPRESSION: Mild pulmonary edema pattern, without pleural effusions or consolidation. Assessment & Plan - Diagnosis (1) MRSA (methicillin resistant Staphylococcus aureus) septicemia Is this a current diagnosis for this admission?: Yes (2) Chronic atrial fibrillation Is this a current diagnosis for this admission?: Yes (3) End-stage renal disease on hemodialysis Is this a current diagnosis for this admission?: Yes (4) Neoplasm of uncertain behavior of right kidney Is this a current diagnosis for this admission?: Yes (5) Status post laminectomy with spinal fusion Is this a current diagnosis for this admission?: Yes (6) Acute osteomyelitis of spine Is this a current diagnosis for this admission?: Yes (7) Anemia in chronic kidney disease (CKD) Is this a current diagnosis for this admission?: Yes (8) Chronic obstructive pulmonary disease Qualifiers: COPD type: COPD with acute exacerbation Qualified Code(s): J44.1 - Chronic obstructive pulmonary disease with (acute) exacerbation Is this a current diagnosis for this admission?: Yes (9) End stage renal disease on dialysis Is this a current diagnosis for this admission?: Yes (10) Endocarditis due to methicillin susceptible Staphylococcus aureus (MSSA) Is this a current diagnosis for this admission?: Yes (11) Lymphedema of right upper extremity Is this a current diagnosis for this admission?: Yes - Time Time Spent with patient: Less than 15 minutes Level of Care: IMCU
[2019-12-04 11:43] VITALS: BP 110/55
[2019-12-04] MEDS: CALCIUM ACETATE 667 MG CAPSULE PO SCH ×2 (11:43→11:56)
[2019-12-04] MEDS: CLONIDINE HCL 0.1 MG TABLET PO SCH (11:55)
[2019-12-04] MEDS: TRAMADOL HCL 50 MG TABLET PO PRN (11:55)
[2019-12-04] MEDS: APIXABAN 2.5 MG TABLET PO SCH (11:56)
[2019-12-04] MEDS: SENNOSIDES/DOCUSATE 8.6-50 MG 1 EACH TABLET PO SCH (11:56)
[2019-12-04] MEDS: AMIODARONE HCL 200 MG TABLET PO SCH (11:56)
[2019-12-04] MEDS: FAMOTIDINE 20 MG TABLET PO SCH (11:58)
[2019-12-04] MEDS: POLYETHYLENE GLYCOL 3350 POWDER 17 GM/1 PACKET PO SCH (11:59)
== END 2019-12-04 13:45 | DRG 288 ==
LOC: 3S 20:10
PROVIDERS: ADMIT Internal Medicine; ATTEND Internal Medicine
PROC: 5A1D70Z Performance of Urinary Filtration, Intermittent, Less than 6 Hours Per Day (ICD-10-PCS; principal; 2019-11-23)
PROC: 5A1D70Z Performance of Urinary Filtration, Intermittent, Less than 6 Hours Per Day (ICD-10-PCS; 2019-11-25)
PROC: 5A1D70Z Performance of Urinary Filtration, Intermittent, Less than 6 Hours Per Day (ICD-10-PCS; 2019-11-26)
PROC: 5A1D70Z Performance of Urinary Filtration, Intermittent, Less than 6 Hours Per Day (ICD-10-PCS; 2019-11-29)
PROC: 5A1D70Z Performance of Urinary Filtration, Intermittent, Less than 6 Hours Per Day (ICD-10-PCS; 2019-12-01)
PROC: 5A1D70Z Performance of Urinary Filtration, Intermittent, Less than 6 Hours Per Day (ICD-10-PCS; 2019-12-03)
DX: I33.0 Acute and subacute infective endocarditis (principal); N18.6 End stage renal disease; R78.81 Bacteremia; I13.2 Hypertensive heart and chronic kidney disease with heart failure and with stage 5 chronic kidney disease, or end stage renal disease; I48.20 Chronic atrial fibrillation, unspecified; M46.22 Osteomyelitis of vertebra, cervical region; I50.9 Heart failure, unspecified; J44.9 Chronic obstructive pulmonary disease, unspecified; M19.90 Unspecified osteoarthritis, unspecified site; B95.62 Methicillin resistant Staphylococcus aureus infection as the cause of diseases classified elsewhere; I89.0 Lymphedema, not elsewhere classified; D63.1 Anemia in chronic kidney disease; D41.01 Neoplasm of uncertain behavior of right kidney; E78.5 Hyperlipidemia, unspecified; Z79.899 Other long term (current) drug therapy; Z99.2 Dependence on renal dialysis; Z86.718 Personal history of other venous thrombosis and embolism; Z88.8 Allergy status to other drugs, medicaments and biological substances; Z79.01 Long term (current) use of anticoagulants; Z98.890 Other specified postprocedural states; Z79.2 Long term (current) use of antibiotics; Z87.891 Personal history of nicotine dependence
CPT/HCPCS: 36415; 71045; 80048; 80053; 82607; 82728; 82746; 83540; 83550; 83970; 84100; 85025; 85027; 85045; 87040; 87340; J0878; J1644; J2270; J3490; P9047; Q5105

== ENCOUNTER 2019-12-27 17:03 | Inpatient (IN) | payer MEDICARE ==
[2019-12-27 18:12] LABS: ABSOLUTE BASOPHILS # (AUTO) 0.1 10^3/uL (0.0-0.2); ABSOLUTE EOSINOPHILS # (AUTO) 0.2 10^3/uL (0.0-0.6); ABSOLUTE LYMPHOCYTES (AUTO) 1.1 10^3/uL (0.5-4.7); ABSOLUTE MONOCYTES (AUTO) 0.5 10^3/uL (0.1-1.4); ABSOLUTE NEUT (AUTO) 7.5 10^3/uL (1.7-8.2); BASOPHILS % (AUTO) 1.4 % (0-2); EOSINOPHILS % (AUTO) 1.9 % (0-6); HEMATOCRIT 26.7 % (37.9-51.0); LYMPHOCYTES % (AUTO) 11.9 % (13-45); MEAN CORPUSCULAR HEMOGLOBIN 28.2 pg (27.0-33.4); MEAN CORPUSCULAR HGB CONC 33.8 g/dL (32.0-36.0); MEAN CORPUSCULAR VOLUME 83 fl (80-97); MONOCYTES % (AUTO) 5.6 % (3-13); PLATELET COUNT 382 10^3/uL (150-450); RED CELL DISTRIBUTION WIDTH 17.5 % (11.5-14.0); SEGMENTED NEUTROPHILS % (AUTO) 79.2 % (42-78); TOTAL CELLS COUNTED % (AUTO) 100 %; WHITE BLOOD COUNT 9.5 10^3/uL (4.0-10.5)
[2019-12-27 18:21] LABS: ALBUMIN 3.7 g/dL (3.5-5.0); ALKALINE PHOSPHATASE 79 U/L (38-126); ANION GAP 11 (5-19); ASPARTATE AMINO TRANSFERASE 25 U/L (17-59); BILIRUBIN,DIRECT 0.4 mg/dL (0.0-0.4); BLOOD UREA NITROGEN 16 mg/dL (7-20); CARBON DIOXIDE 28 mmol/L (22-30); CHLORIDE 98 mmol/L (98-107); GLUCOSE 104 mg/dL (75-110); POTASSIUM 4.2 mmol/L (3.6-5.0); TOTAL PROTEIN 8.8 g/dL (6.3-8.2)
--- NOTE | 2019-12-27 18:44 | RADIOLOGY REPORT (SQ) ---
EXAM DESCRIPTION: CHEST SINGLE VIEW IMAGES COMPLETED DATE/TIME: 12/27/2019 6:29 pm REASON FOR STUDY: sob COMPARISON: 11/30/2019 NUMBER OF VIEWS: One view. TECHNIQUE: Single frontal radiographic view of the chest acquired. LIMITATIONS: None. FINDINGS: LUNGS AND PLEURA: Patchy diffuse bilateral infiltrates/ edema in the upper and lower lung nur. New since prior. No evidence of pneumothorax or large pleural effusion. MEDIASTINUM AND HILAR STRUCTURES: Stable contours. HEART AND VASCULAR STRUCTURES: Cardiomegaly. BONES: No acute findings. HARDWARE: Right dual-lumen central venous line, IJ approach to the right atrium. OTHER: No other significant finding. IMPRESSION: Diffuse pulmonary infiltrates/edema. TECHNICAL DOCUMENTATION: JOB ID: [id number] [employer] - [employer]- All Rights Reserved Reading location - IP/workstation name: [email or web address]
[2019-12-27 19:07] LABS: A TYPE INFLUENZA AG NEGATIVE (NEGATIVE); B INFLUENZA AG NEGATIVE (NEGATIVE)
[2019-12-27] MEDS ORDERED: MORPHINE SULFATE 10 MG/ML INJ IV ONE (19:27)
--- NOTE | 2019-12-27 19:57 | ER Document Report ---
ED General - General Chief Complaint: Shortness Of Breath Stated Complaint: SHORTNESS OF BREATH Time Seen by Provider: 12/27/19 17:31 Primary Care Provider: СВЕТЛАНА WHEELER MD [Primary Care Provider] - Follow up as needed Mode of Arrival: Medic Information source: Patient TRAVEL OUTSIDE OF THE [place] IN LAST 30 DAYS: No - HPI Notes: Patient is brought in by paramedics for shortness of breath. Patient states he is currently a resident at [facility]. He states his been over there for rehabilitation. He states he has been on dialysis for about 12 years and had a normal dialysis session yesterday. He states he is noticed over the last couple of days it has become more short of breath and developed a cough. He denies any known exposures to the COVID virus. He has had no fevers or rashes. The shortness of breath is worse with exertion and better with rest. It is constant. It is moderate to severe. There is no radiation the symptoms. He has had no vomiting or diarrhea. - Related Data Allergies/Adverse Reactions: DRY GAMBRO DIALYZERS Allergy (Unknown, Uncoded 06/22/18 04:07) "BP drop, vomiting" PAPER TAPE Allergy (Uncoded 06/22/18 04:07) Rash Past Medical History - General Information source: Patient - Social History Smoking Status: Never Smoker Chew tobacco use (# tins/day): No Frequency of alcohol use: None Drug Abuse: None Family History: Reviewed & Not Pertinent, Hypertension Patient has suicidal ideation: No Patient has homicidal ideation: No - Past Medical History Cardiac Medical History: Reports: Hx Atrial Fibrillation, Hx Congestive Heart Failure, Hx DVT, Hx Hypercholesterolemia, Hx Hypertension, Hx Heart Murmur Denies: Hx Coronary Artery Disease, Hx Heart Attack Pulmonary Medical History: Reports: Hx Asthma, Hx COPD Denies: Hx Bronchitis, Hx Pneumonia Neurological Medical History: Denies: Hx Cerebrovascular Accident, Hx Seizures Renal/ Medical History: Reports: Hx End Stage Renal Disease, Hx Hemodialysis. Denies: Hx Peritoneal Dialysis Musculoskeletal Medical History: Reports Hx Arthritis - "DAMAGED NERVE TO RIGHT LEG" Psychiatric Medical History: Denies: Hx Depression Past Surgical History: Reports: Hx Neurologic Surgery - Benign brain tumor removed 2010, Hx Vascular Surgery - Right and left PermCaths, Other - C3-C4 laminectomy, decompression and posterior fusion, November 18, 2019 - Immunizations Hx Diphtheria, Pertussis, Tetanus Vaccination: Yes Hx Pneumococcal Vaccination: 02/07/16 Review of Systems - Review of Systems Constitutional: denies: Chills, Fever Cardiovascular: denies: Chest pain, Palpitations Respiratory: Cough, Short of breath -: Yes All other systems reviewed and negative Physical Exam - Vital signs Vitals: Resp Pulse Ox 12 84 L 12/27/19 17:04 12/27/19 17:04 Interpretation: Hypoxic, Tachypneic - General General appearance: Appears well, Alert - HEENT Head: Normocephalic, Atraumatic Eyes: Normal Pupils: PERRL - Respiratory Respiratory status: Respiratory distress - mild Chest status: Nontender Breath sounds: Decreased air movement Chest palpation: Normal - Cardiovascular Rhythm: Regular Heart sounds: Normal auscultation Murmur: No - Abdominal Inspection: Normal Distension: No distension Bowel sounds: Normal Tenderness: Nontender Organomegaly: No organomegaly - Back Back: Normal, Nontender - Extremities General upper extremity: Normal inspection, Nontender, Normal color, Normal ROM, Normal temperature General lower extremity: Normal inspection, Nontender, Normal color, Normal ROM, Normal temperature, Normal weight bearing. No: Sonia's sign - Neurological Neuro grossly intact: Yes Cognition: Normal Orientation: AAOx4 Mili Coma Scale Eye Opening: Spontaneous [place] Coma Scale Verbal: Oriented [place] Coma Scale Motor: Obeys Commands [place] Coma Scale Total: 15 Speech: Normal Motor strength normal: LUE, RUE, LLE, RLE Sensory: Normal - Psychological Associated symptoms: Normal affect, Normal mood - Skin Skin Temperature: Warm Skin Moisture: Dry Skin Color: Normal Course - Re-evaluation Re-evalutation: 12/27/19 19:56 Patient presents complaint of shortness of breath with a cough. He is a dialysis patient. X-ray has some worrisome signs for possible coronavirus. His test is currently pending. It is possible this is also pulmonary edema however the x-ray does not look classic for pulmonary edema to me. In addition I would not think the patient's x-ray would look this edematous when he had a normal dialysis session yesterday. Patient was seen by the business intelligence etl developer. He will start antibiotics and admit the patient. 12/27/19 21:43 - Vital Signs Vital signs: Temp Pulse Resp BP Pulse Ox 20 122/51 L 95 12/27/19 21:01 12/27/19 21:01 12/27/19 21:01 - Laboratory Result Diagrams: 12/27/19 17:19 12/27/19 17:19 Laboratory results interpreted by me: 12/27/19 12/27/19 17:19 17:19 RBC 3.20 L Hgb 9.0 L Hct 26.7 L RDW 17.5 H Lymph % (Auto) 11.9 L Seg Neutrophils % 79.2 H Sodium 136.9 L Creatinine 3.62 H Est GFR ( Amer) 21 L Est GFR (MDRD) Non-Af 17 L Total Protein 8.8 H - Diagnostic Test Radiology reviewed: Image reviewed, Reports reviewed - EKG Interpretation by Me EKG shows normal: Sinus rhythm Rate: Normal - 96 Rhythm: NSR [place]/QRS: No: Right axis deviation, Left axis deviation Voltage: Consistant with LVH Critical Care Note - Critical Care Note Total time excluding time spent on procedures (mins): 45 Comments: Approximately 45 minutes were spent managing this patient's hypoxia and suspected pneumonia due to possible COVID infection. This was spent doing multiple consultations. It spent doing multiple reassessments. It was spent reviewing imaging and laboratories. Discharge - Discharge Clinical Impression: Suspected COVID-19 virus infection, End stage renal disease, Hypoxia Dyspnea Qualifiers: Dyspnea type: shortness of breath Qualified Code(s): R06.02 - Shortness of breath; R06.00 - Dyspnea, unspecified; R06.01 - Orthopnea Condition: Serious Disposition: ADMITTED INPATIENT Admitting Provider: Ellie (Bed Machine Operator) Unit Admitted: ICU Referrals: СВЕТЛАНА WHEELER MD [Primary Care Provider] - Follow up as needed
[2019-12-27] MEDS: ALBUTEROL SULFATE HFA (90 MCG/PUFF) 200 PUFF/8.5 GM MDI IH SCH (20:05)
[2019-12-27] MEDS ORDERED: HEPARIN SOD (PORCINE) 5,000 UNIT/ML 1 ML VIAL SUBCUT ONE (21:52)
[2019-12-27] MEDS: METOPROLOL TARTRATE PF/INJ 5 MG/5 ML SDV IV SCH (22:18)
[2019-12-27 22:20] LABS: C-REACTIVE PROTEIN 167.3 mg/L (<10.0)
--- NOTE | 2019-12-27 22:41 | EKG REPORT ---
SEVERITY:- ABNORMAL ECG - SINUS RHYTHM LEFT ATRIAL ABNORMALITY LVH WITH SECONDARY REPOLARIZATION ABNORMALITY PROLONGED QT INTERVAL : Confirmed by: Ana Hagan 27-Dec-2019 22:41:25
[2019-12-27] MEDS ORDERED: DAPTOMYCIN 500 MG in NORMAL SALINE 50 ML IV ONE (23:00)
[2019-12-27] MEDS ORDERED: DAPTOMYCIN INJ 500 MG VIAL IV PRN (23:00)
[2019-12-27] MEDS ORDERED: LORAZEPAM INJ 2 MG/1 ML VIAL IV ONE (23:00)
[2019-12-27 23:12] LABS: PHOSPHORUS 3.2 mg/dL (2.5-4.5)
[2019-12-27] MEDS ORDERED: POLYETHYLENE GLYCOL 3350 POWDER 17 GM/1 PACKET PO PRN (23:53)
[2019-12-27] MEDS ORDERED: LACTULOSE SYRUP 20 GM/30 ML UDCUP PO PRN (23:53)
[2019-12-27] MEDS ORDERED: DAPTOMYCIN INJ 500 MG VIAL ONE (23:57)
--- NOTE | 2019-12-28 | CRITICAL CARE ADMISSION REPORT ---
HPI Date:: 12/27/19 Time:: 20:45 Reason for ICU Reason:: Acute respiratory failure due to hypoxia; probable COVID-19 HPI: Marshall Blackmon is a 59-year-old male with a past medical history significant for hypertension, hyperlipidemia, atrial fibrillation on Eliquis, ESRD on hemodialysis since 2006, and MRSA bacteremia complicated by endocarditis and osteomyelitis for which he had a cervical spine discectomy with fusion in November so being treated with daptomycin for 8 weeks which should tentative end on January 09, 2020. Mr. See was discharged on November 22 from [facility] to a care home facility for rehabilitation due to debility from prolonged hospitalization as well as cervical spine surgery and the need for daily IV antibiotics. He dialyzes on [id number] with his last session being today but he does not know the quantity removed, nor does he arrive with the paperwork from today. It appears he received 2.2 L of ultrafiltration on Friday. Patient's chief complaint for transportation to [facility] today is rest of shortness of breath over the past couple of days associated with a dry cough. He denies fever, chills, anosmia, aguesia. No shortness of breath is better with rest and worse with exertion. He denies chest pain, pressure, or epigastric pain. Denies nausea, vomiting, diarrhea. Mr See has no known exposures to COVID-19, though being in a [facility] with his medical comorbidities and age puts him at high risk. His chest x-ray is concerning given the bilateral diffuse patchy opacification which includes the bases and lateral aspects of the long, a finding consistent with COVID-19 pneumonia. ICU was consulted for concerning findings on chest x-ray which may be due to COVID-19 for which we have seen rapid clinical deterioration due to hypoxia during this pandemic. Patient will be admitted to ICU for vigilant observation and supportive respiratory care with moderate to high concern for patient's ability to deteriorate further and precipitously. History obtained from:: patient, ER physician, medical record - Diagnosis/Plan (1) Pneumonia due to COVID-19 virus Is this a current diagnosis for this admission?: Yes Plan: Suspected given pattern on CXR in the current pandemic as well as symptoms. Supportive care, vigilant observation for clinical deterioration with refractory hypoxia. (2) Acute respiratory failure with hypoxia Is this a current diagnosis for this admission?: Yes Plan: Supportive care with oxygen therapy. Presently, 4L regular cannula is okay. Monitor need for escalation for heated high flow. Prophylactic Albuterol MDI. (3) Shortness of breath Is this a current diagnosis for this admission?: Yes Plan: Avoid exerting patient, excessive talking. Albuterol MDI. Oxygen, supportive care. (4) Chronic obstructive pulmonary disease Qualifiers: COPD type: COPD with acute lower respiratory infection Qualified Code(s): J44.0 - Chronic obstructive pulmonary disease with (acute) lower respiratory infection Is this a current diagnosis for this admission?: Yes Plan: Suspect COVID-19 pneumonia Albuterol MDI due to Coronavirus. Unable to provide Atrovant at this time unfortunately. Start steroids if Ferritin >1,000. (5) Asthma Qualifiers: Asthma severity: unspecified severity Asthma persistence: unspecified Ast hma complication type: unspecified Qualified Code(s): J45.909 - Unspecified asthma, uncomplicated Is this a current diagnosis for this admission?: Yes Plan: Albuterol MDI (6) History of atrial fibrillation Is this a current diagnosis for this admission?: Yes Plan: Continue Eliquis 2.5 mg PO BID. Resume Toprol when able for rate/rhythm control. Metop 2.5 mg IVP q6h for now for rate control. Hold off on home Amiodarone at this time given concerning chest findings and not wanting to contribute to pulmonary toxicity/fibrosis. (7) Endocarditis of mitral valve Is this a current diagnosis for this admission?: Yes Plan: NEWTON on 10/11/2019 with 1.1cm x 0.9cm anterior mitral valve leaflet vegetation Continue IV Daptomycin (8) Cardiomegaly Is this a current diagnosis for this admission?: Yes Plan: Enlarged on CXR in comparison to film on 11/30/2019. Cannot exclude acute volume overload when evaluating cardiac silhouette and auscultating fine crackles, however, COVID-19 is also known to cause acute myocarditis due to targeting epithelial cells. (9) Murmur Is this a current diagnosis for this admission?: Yes Plan: known mild to moderate aortic regurgitation, mild tricuspid regurgitation, mild to moderate mitral valve regurgitation on NEWTON 10/21/2019. (10) Hx of essential hypertension Is this a current diagnosis for this admission?: Yes Plan: Patient not presently hypertensive, SBP 120s. This may be due to acute illness or receiving dialysis earlier today. Will continue to monitor need to resume Clonidine and Toprol. (11) Bacteremia due to methicillin resistant Staphylococcus aureus Is this a current diagnosis for this admission?: Yes Plan: Subacute. Plan for 8 weeks IV Daptomycin with tentative end date January 08. (12) Debility Is this a current diagnosis for this admission?: Yes Plan: Physical therapy once symptoms and illness have improved. Patient currently experiencing severe SOB with any exertion. (13) Osteomyelitis Qualifiers: Osteomyelitis type: subacute Osteomyelitis location: unspecified site Qualified Code(s): M86.20 - Subacute osteomyelitis, unspecified site Is this a current diagnosis for this admission?: Yes Plan: Continue IV Daptomycin (14) Anemia in chronic kidney disease (CKD) Qualifiers: Chronic kidney disease stage: on chronic dialysis Qualified Code(s): N18.6 - End stage renal disease; D63.1 - Anemia in chronic kidney disease; Z99.2 - Dependence on renal dialysis Is this a current diagnosis for this admission?: Yes Plan: transfuse if Hgb <7 or patient symptomatic (15) End-stage renal disease on hemodialysis Is this a current diagnosis for this admission?: Yes Plan: Consult Dr Benson, Nephrology on 12/28/2019. This is an established treatment patient of his. Normally dialyzes . (16) Lymphedema of right upper extremity Is this a current diagnosis for this admission?: Yes Plan: place compression stocking on arm pt reports he uses a "pump" at home (17) Lytic lesion of bone on x-ray Plan: L1 lytic lesion which is supposed to be evaluated by MRI as outpatient at some point. (18) Status post laminectomy with spinal fusion Is this a current diagnosis for this admission?: No Plan: In November. Has osteomyelitis being treated with Daptomycin IV. Has cervical hardware, site benign for infection presently. (19) Hx of deep venous thrombosis Is this a current diagnosis for this admission?: No Plan: Continue home Eliquis to prevention. (20) Renal mass, right Is this a current diagnosis for this admission?: No Plan: Plan per patient was to work this up further once 8 week antibiotic course completed in January. (21) Obesity Qualifiers: Obesity type: due to excess calories Is this a current diagnosis for this admission?: Yes Past Medical History Cardiac Medical History: Reports: Atrial Fibrillation - on Eliquis, Congestive Heart Failure, DVT, Hyperlipidema, Hypertension, Heart Murmur Denies: Coronary Artery Disease, Myocardial Infarction Pulmonary Medical History: Reports: Asthma, Chronic Obstructive Pulmonary Disease (COPD) Denies: Bronchitis, Pneumonia EENT Medical History: Reports: None Neurological Medical History: Reports: None Endocrine Medical History: Reports: None Renal/ Medical History: Reports: End Stage Renal Disease - On dialysis since 2006 Malignancy Medical History: Reports: Other - Has R renal mass to be worked up after osteomyelitis/endocarditis clearance GI Medical History: Reports: None Musculoskeltal Medical History: Reports: Arthritis - "DAMAGED NERVE TO RIGHT LEG" Skin Medical History: Reports: Psoriasis Psychiatric Medical History: Reports: Other - Claustrophobia causing anxiety- currently experiencing due to door closure Denies: Alcohol Dependency, Depression, Substance Abuse Traumatic Medical History: Reports: None Hematology: Reports: Anemia - Chronic kidney disease Infectious Medical History: Reports: Methicillin-Resistant Staph Aureus - Bacteremia Denies: Clostridium Difficile, Hepatitis B, Hepatitis C, HIV, Vancomycin- Resistant Enterococci Past Surgical History Past Surgical History: Reports: Vascular Surgery - Right IJ and L IJ permacaths, RUE AV fistula, Other - C3-C4 laminectomy, decompression and posterior fusion, November 18, 2019 Social/Family History - Social History Lives with: Long Term - currently at [facility] "learning to walk again" after c-spine Sx and debility Smoking Status: Former Smoker - quit 2016 Frequency of Alcohol Use: Occasional - usually only a glass of wine on the holidays with family Hx Recreational Drug Use: No Drugs: None Hx Prescription Drug Abuse: No - Family History Family History: Hyperlipidemia, Hypertension - Medication/Allergies Home Medications: Acetaminophen [Tylenol 325 mg Tablet] 650 mg PO Q6HP PRN 11/24/19 Albumin Human [Albuminar-25] 25 gm IV .DIALYSIS PRN 11/24/19 Albuterol Sulfate [Ventolin 0.083% Neb 2.5 mg/3 mL Ampul] 1 vial NEB RTQ4HP PRN MDD TAKE WITH ATROVENT 11/24/19 Amiodarone HCl [Cordarone 200 mg Tablet] 200 mg PO DAILY 11/24/19 Calcium Acetate [Phoslo 667 mg Capsule] 667 mg PO MEALS 11/24/19 Cinacalcet HCl [Sensipar 30 mg Tablet] 30 mg PO DAILY 11/24/19 Clonidine HCl [Catapres 0.1 mg Tablet] 0.1 mg PO Q8 11/24/19 Daptomycin [Cubicin Inj 500 mg Vial] 1,000 mg IV FR@1800 11/24/19 Daptomycin [Cubicin Inj 500 mg Vial] 700 mg IV MOWE@1800 11/24/19 Epoetin Herrera-Epbx [Retacrit 2,000 Unit/ml Vial (Renal)] 4,000 unit IV .DIALYSIS 11/24/19 Famotidine [Pepcid 20 mg Tablet] 20 mg PO DAILY 11/24/19 Guaifenesin [Robitussin Syrup 200 mg/10 ml Ud Cup] 200 mg PO Q8HP PRN 11/24/19 Ipratropium [place] [Atrovent 0.02% Neb 0.5 mg/2.5 ml Ampul] 0.5 mg NEB RTQ4HP PRN MDD TAKE WITH ALBUTEROL 11/24/19 Lactulose [Cephulac Syrup 20 gm/30 ml Udcup] 10 gm PO DAILYP PRN 11/24/19 Polyethylene Glycol 3350 [Miralax Powder 17 gm/Packet] 1 packet PO TID 11/24/19 Sennosides [Senna] 17.2 mg PO BID 11/24/19 Apixaban [Eliquis 2.5 mg Tablet] 2.5 mg PO BID tablet 12/03/19 Tramadol HCl [Ultram 50 mg Tablet] 50 mg PO Q6HP PRN tablet 12/03/19 Allergies/Adverse Reactions: DRY GAMBRO DIALYZERS Allergy (Unknown, Uncoded 06/22/18 04:07) "BP drop, vomiting" PAPER TAPE Allergy (Uncoded 06/22/18 04:07) Rash Review of Systems Constitutional: ABSENT: chills, fever(s), night sweats, weakness Eyes: ABSENT: visual disturbances Ears: ABSENT: hearing changes Nose, Mouth, and Throat: PRESENT: headache(s) - headache started today after dialysis. ABSENT: mouth pain, sore throat, vertigo Cardiovascular: PRESENT: dyspnea on exertion. ABSENT: chest pain, edema, palpitations Respiratory: PRESENT: cough - dry, dyspnea. ABSENT: hemoptysis, sputum Gastrointestinal: ABSENT: abdominal pain, coffee ground emesis, constipation, diarrhea, dysphagia, heartburn, melena, nausea, vomiting Genitourinary: PRESENT: other - makes no urine at baseline Musculoskeletal: ABSENT: deformity, joint swelling, muscle weakness - no more than what he has been experiencing w/ debility Integumentary: ABSENT: diaphoresis, erythema, lesions, rash, wounds Neurological: PRESENT: paresthesias - from mid-forearm to finger tips bi laterally-started following c-spine Sx intermittent foot paresthesias. ABSENT: confusion, convulsions, dizziness, frequent falls, syncope Psychiatric: PRESENT: anxiety. ABSENT: depression, hallucinations, homidical ideation, suicidal ideation Endocrine: ABSENT: cold intolerance, flushing, heat intolerance, polydipsia, polyphagia, polyuria Physical Exam Vital Signs: Temp Pulse Resp BP Pulse Ox 20 122/51 L 95 12/27/19 21:01 12/27/19 21:01 12/27/19 21:01 Intake & Output 12/26/19 12/27/19 12/28/19 06:59 06:59 06:59 Weight 82.2 kg Weight/Height Weight 82.2 kg Height 5 ft 7 in General appearance: PRESENT: no acute distress, cooperative, obese, well- nourished Head exam: PRESENT: atraumatic, normocephalic Eye exam: PRESENT: conjunctiva pink, EOMI, PERRLA. ABSENT: conjunctival injection, conjunctiva pale, nystagmus, periorbital swelling, scleral icterus Ear exam: PRESENT: normal external ear exam Mouth exam: PRESENT: moist, neck supple, tongue midline Teeth exam: PRESENT: poor dentation Throat exam: PRESENT: other - not assessed given high probability of COVID-19 and extra exposure to patient's immediate airway Neck exam: PRESENT: full ROM, other - posterior cervical incisional site well- healed, no induration/erythema/discharge/pain. ABSENT: JVD, lymphadenopathy, tenderness, tracheal deviation Respiratory exam: PRESENT: symmetrical, tachypnea - when conversing or with movement, unlabored - without exertion, other - fine crackles throughout RML/RLL/LLL, upper lobes CTA. ABSENT: accessory muscle use, stridor Cardiovascular exam: PRESENT: RRR - normal sinus rhythm on telemetry presently, +S1, +S2, other - murmur. ABSENT: irregular rhythm Pulses: PRESENT: normal carotid pulses, +2 pedal pulses bilateral Vascular exam: PRESENT: normal capillary refill. ABSENT: pallor GI/Abdominal exam: PRESENT: normal bowel sounds, soft. ABSENT: distended, tenderness Rectal exam: PRESENT: deferred Gentrourinary exam: ABSENT: scrotal swelling, testicular tenderness, urethral discharge, indwelling catheter Extremities exam: PRESENT: full ROM, other - RUE lymphedema due to previous failed AV fistula. ABSENT: calf tenderness, joint swelling, pedal edema, tenderness Musculoskeletal exam: PRESENT: full ROM, normal inspection. ABSENT: tenderness Neurological exam: PRESENT: alert, awake, oriented to person, oriented to place, oriented to time, oriented to situation, CN II-XII grossly intact Psychiatric exam: PRESENT: appropriate affect Skin exam: PRESENT: dry, intact, warm. ABSENT: jaundice Tubes/Lines: PRESENT: Central Line - tunneled R IJ permacath HD catheter placed 11/17/2019 at [facility] Laboratory/Radiographs Laboratory Results: 12/27/19 17:19 12/27/19 17:19 12/27/19 12/27/19 17:19 17:19 WBC 9.5 RBC 3.20 L Hgb 9.0 L Hct 26.7 L MCV 83 MCH 28.2 MCHC 33.8 RDW 17.5 H Plt Count 382 Seg Neutrophils % 79.2 H Sodium 136.9 L Potassium 4.2 Chloride 98 Carbon Dioxide 28 Anion Gap 11 BUN 16 Creatinine 3.62 H Est GFR ( Amer) 21 L Glucose 104 Calcium 9.0 Total Bilirubin 1.0 AST 25 Alkaline Phosphatase 79 Total Protein 8.8 H Albumin 3.7 12/27/19 18:55 Troponin I 0.093 Impressions: Chest X-Ray 12/27/19 17:54 IMPRESSION: Diffuse pulmonary infiltrates/edema. Per my personal read: diffuse bilateral patchy infiltrates could be pulmonary edema versus viral pneumonia as patient has bibasilar and lateral patchy opacification as well; cardiomegaly. POCUS performed by myself demonstrates patient appears to be euvolemic, overall systolic function is good with no significant wall motion abnormalities. EKG: NSR with a prolonged QT interval, appears to have possible ST depression in lateral wall. However, on POCUS there is no lateral wall motion abnormality, pt denies CP, Trop likely at/near baseline given ESRD so doubt this is NSTEMI. All labs, radiographs, diagnostic studies and EKGs were personally reviewed: Yes In addition, reports of radiographic and diagnostic studies were read: Yes Critical Time Critical Time (minutes): 90 -: The care of a critically ill patient is dynamic. This note represents a static moment in the admission process. Orders and treatments may be given simultaneously and urgently, and time is not merchandiser retail representative of the treatment process. This patient requires Critical Care secondary to life threatening organ or limb dysfunction. Without Critical Care services, the patient is at risk for increased mortality and morbidity.
[2019-12-28] MEDS: ALBUTEROL SULFATE HFA (90 MCG/PUFF) 8 GM MDI IH SCH ×3 (01:13→11:15)
[2019-12-28] MEDS ORDERED: NITROGLYCERIN 0.4 MG/TAB 25 TAB/BOTTLE ONE (01:37)
[2019-12-28] MEDS: METOPROLOL TARTRATE PF/INJ 5 MG/5 ML SDV IV SCH ×3 (05:11→17:30)
[2019-12-28] MEDS: FAMOTIDINE 20 MG TABLET PO SCH (11:14)
[2019-12-28] MEDS: APIXABAN 2.5 MG TABLET PO SCH ×2 (11:14→17:30)
[2019-12-28] MEDS: ALBUTEROL SULFATE HFA (90 MCG/PUFF) 200 PUFF/8.5 GM MDI IH SCH ×2 (12:09→17:30)
--- NOTE | 2019-12-28 12:11 | PDOC CRITICAL CARE PROG REPORT ---
General Date:: 12/28/19 ICU Day:: 1 Hospital Day:: 1 Resuscitation Status: Full Code Events in the past 12 to 24 Hours:: He has maintained his oxygenation and gotten out of bed to chair Review of systems relevant to events:: Respiratory, renal Reason for ICU Addmission:: Acute respiratory failure due to hypoxia; probable COVID-19. Stabilzed for now. - Medications: Medications reviewed and adjusted accordingly: Yes Vasopressors:: None Sedation:: None Physical Exam Vital Signs: Temp Pulse Resp BP Pulse Ox 98.6 F 82 30 H 121/107 H 95 12/28/19 08:00 12/28/19 07:51 12/28/19 10:00 12/28/19 09:39 12/28/19 10:00 Intake & Output 12/27/19 12/28/19 12/29/19 06:59 06:59 06:59 Intake Total 50 Output Total 0 Balance 50 Weight 81.8 kg Weight/Height Weight 81.8 kg Height 5 ft 7 in General appearance: PRESENT: no acute distress, well-developed, well-nourished Head exam: PRESENT: atraumatic, normocephalic Eye exam: PRESENT: conjunctiva pink, EOMI, PERRLA. ABSENT: scleral icterus Ear exam: PRESENT: normal external ear exam Mouth exam: PRESENT: moist, tongue midline Respiratory exam: PRESENT: symmetrical, unlabored Cardiovascular exam: PRESENT: RRR. ABSENT: diastolic murmur, rubs, systolic m urmur Pulses: PRESENT: normal dorsalis pedis pul GI/Abdominal exam: PRESENT: normal bowel sounds, soft. ABSENT: distended, guarding, mass, organolmegaly, rebound, tenderness Rectal exam: PRESENT: deferred Extremities exam: PRESENT: full ROM. ABSENT: calf tenderness, clubbing, pedal edema Neurological exam: PRESENT: alert, awake, oriented to person, oriented to place, oriented to time, oriented to situation, CN II-XII grossly intact. ABSENT: motor sensory deficit Psychiatric exam: PRESENT: appropriate affect, normal mood. ABSENT: homicidal i deation, suicidal ideation Laboratory/Radiographs Laboratory Results: 12/27/19 17:19 12/27/19 17:19 12/27/19 12/27/19 12/27/19 17:19 17: 18:55 WBC 9.5 RBC 3.20 L Hgb 9.0 L Hct 26.7 L MCV 83 MCH 28.2 MCHC 33.8 RDW 17.5 H Plt Count 382 Seg Neutrophils % 79.2 H Sodium 136.9 L Potassium 4.2 Chloride 98 Carbon Dioxide 28 Anion Gap 11 BUN 16 Creatinine 3.62 H Est GFR ( Amer) 21 L Glucose 104 Calcium 9.0 Phosphorus 3.2 Magnesium 1.9 Ferritin 812.00 H Total Bilirubin 1.0 AST 25 Alkaline Phosphatase 79 C-Reactive Protein 167.3 H Total Protein 8.8 H Albumin 3.7 12/27/19 18:55 Troponin I 0.093 Impressions: Chest X-Ray 12/27/19 17:54 IMPRESSION: Diffuse pulmonary infiltrates/edema. All labs, radiographs, diagnostic studies and EKGs were personally reviewed: Yes In addition, reports of radiographic and diagnostic studies were read: Yes Assessment and Plan - Diagnosis (1) End stage renal disease Is this a current diagnosis for this admission?: Yes Plan: His dialysis is M/W/F and he has not missed a day. (2) Hypoxia Is this a current diagnosis for this admission?: Yes Plan: He seems to be comfortable on 4L and he has been up to a chair. (3) Suspected COVID-19 virus infection Is this a current diagnosis for this admission?: Yes Plan: He is considered high risk due to his status in a NH and HD and SBE. Covid test pending. (4) Endocarditis due to methicillin susceptible Staphylococcus aureus (MSSA) Is this a current diagnosis for this admission?: Yes Plan: Keep on daptomycin. Plan Summary: He has been stable and even improved somewhat. Although he may deteriorate if covid positive, right now he is stable for the IMCU. Critical Time Critical Time (minutes): 35 Level of Care: IMCU Anticipated discharge: SNF Within: Other -: 1. The care of a critical patient is a dynamic process. This note is a surgical device sales representative synopsis but static in nature. The timeframe for treatments given in order is not necessarily the actual time these treatments may have been done. 2. This patient requires critical care secondary to ongoing requirements for therapy not offered or safe outside the critical care environment. Transfer to a lower level of care will result in altered life or limb morbidity and mortality. 3. Multidisciplinary rounds completed. 4. ABCDE bundle addressed.
--- NOTE | 2019-12-28 17:53 | PDOC CONSULTATION ---
Consultation Consult Date: 12/28/19 Provider Consulted: Juanita CRESPO Consult reason:: ESRD History of Present Illness Admission Date/PCP: 12/27/19 21:50 СВЕТЛАНА WHEELER MD History of Present Illness: OLINDA OCAMPO is a 59 year old male with significant medical history significant for ESRD in the background of hypertension, hyperlipidemia, atrial fibrillation on Eliquis, solid right renal mass with high potential for cancer and yet to be worked up was recently admitted with MRSA bacteremia complicated by endocarditis and osteomyelitis for which he had a cervical spine discectomy with fusion in November at [facility] and is being treated with daptomycin for 8 weeks which should tentative end on January 09, 2020. Mr. Ocampo was discharged on November 22 from [facility] to a long term facility for rehabilitation due to debility from prolonged hospitalization as well as cervical spine surgery and the need for daily IV antibiotics. He dialyzes on [id number].Last dialysis was Friday and had good ultrafiltration. He is now been admitted to the hospital because he became frederick rt of breath following his dialysis.He then also gave a history of dry cough for the last couple of days without any history of fever or chills.His shortness of breath is better with rest and worse with exertion. He denies chest pain, pressure, or epigastric pain. Denies nausea, vomiting, diarrhea. Admission chest x-ray was concerning for COVID-19 pneumonia and along with his decompensated respiratory failure were adequate reasons to admit him to the ICU.Patient was seen in the ICU but I did not cross examine him or do any physical on him because he is in isolation and therefore had a brief conversation through the glass as well as discussions with the treating nurse. Past Medical History Cardiac Medical History: Reports: Atrial Fibrillation - on Eliquis, DVT, Heart Murmur, Hyperlipidemia, Hypertension-primary Denies: Coronary Artery Disease, Myocardial Infarction Pulmonary Medical History: Reports: Asthma, Chronic Obstructive Pulmonary Disease (COPD) Denies: Bronchitis, Pneumonia EENT Medical History: Reports: None Neurological Medical History: Reports: None Denies: Seizures Endocrine Medical History: Reports: None Complications of Diabetes: Reports: None Renal/ Medical History: Reports: End Stage Renal Disease - On dialysis since 2006, Secondary Hyperparathyroidism Malignancy Medical History: Reports: Other - Has R renal mass to be worked up after osteomyelitis/endocarditis clearance GI Medical History: Reports: None Musculoskeltal Medical History: Reports: Arthritis - "DAMAGED NERVE TO RIGHT LEG" Skin Medical History: Reports: Psoriasis Psychiatric Medical History: Reports: General Anxiety Disorder, Other - Claustrophobia causing anxiety-currently experiencing due to door closure Denies: Alcohol Dependency, Depression, Substance Abuse Traumatic Medical History: Reports: None Infectious Medical History: Reports: Methicillin-resist Staph Aureus - Bacteremia Denies: Clostridium Difficile, Hepatitis B, Hepatitis C, HIV, Vancomycin- resistant Enterococci Hematology Medical History: Reports Anemia of Chronic Kidney Disease Past Surgical History Past Surgical History: Reports: Dialysis Access Surgery AVF, Dialysis Access Surgery AVG, Vascular Surgery - Right IJ and L IJ permacaths, RUE AV fistula, Other - C3-C4 laminectomy, decompression and posterior fusion, November 18, 2019 Social History Lives with: [facility] - currently at detention "learning to walk again" after c-spine Sx and debility Smoking Status: Never Smoker Electronic Cigarette use?: No Frequency of Alcohol Use: None Hx Recreational Drug Use: No Drugs: None Hx Prescription Drug Abuse: No - Advance Directive Resuscitation Status: Full Code Family History Parental Family History Reviewed: Yes - Negative for ESRD Children Family History Reviewed: Yes - Daughter has ESRD on dialysis Sibling(s) Family History Reviewed.: No Medication/Allergy Home Medications: Acetaminophen [Tylenol] 650 mg PO Q6 12/28/19 Albuterol Sulfate [Ventolin 0.083% Neb 2.5 mg/3 ml Ampul] 2.5 mg NEB RTQ8 12/28/19 Amiodarone HCl [Pacerone] 200 mg PO DAILY 12/28/19 Apixaban [Eliquis 2.5 mg Tablet] 2.5 mg PO BID 12/28/19 Calcium Acetate [Phoslo 667 mg Capsule] 1,334 mg PO TID 12/28/19 Cinacalcet HCl [Sensipar 30 mg Tablet] 30 mg PO DAILY 12/28/19 Clonidine HCl [Catapres 0.1 mg Tablet] 0.1 mg PO Q8 12/28/19 Famotidine [Pepcid 20 mg Tablet] 20 mg PO QHS 12/28/19 Ipratropium [place] [Atrovent Hfa] 2 puff IH Q8 12/28/19 Lactulose [Cephulac 20 gm/30 ml Syrup UD Cup] 15 ml PO DAILY 12/28/19 Melatonin/Pyridoxine [Melatonin 5 mg Tablet] 1 each PO QHS 12/28/19 Tramadol HCl [Ultram 50 mg Tablet] 50 mg PO Q6HP PRN 12/28/19 Allergies/Adverse Reactions: DRY GAMBRO DIALYZERS Allergy (Unknown, Uncoded 06/22/18 04:07) "BP drop, vomiting" PAPER TAPE Allergy (Uncoded 06/22/18 04:07) Rash Review of Systems Review of Systems: Was not done as he is in isolation and precautions are being taken because he is highly suspected COVID-19 pneumonia. Per chart review was done and discussions were done with the treating nurse. Physical Exam Vital Signs: Temp Pulse Resp BP Pulse Ox 97.6 F 83 18 140/62 H 94 12/28/19 12:00 12/28/19 12:00 12/28/19 12:00 12/28/19 10:39 12/28/19 13:00 Intake & Output 12/27/19 12/28/19 12/29/19 06:59 06:59 06:59 Intake Total 50 200 Output Total 0 Balance 50 200 Weight 81.8 kg 81.8 kg Exam: Given the current coronavirus pandemic and the patient be kept in isolation of highly suspected COVID-19 pneumonia physical examination was not done personally by me. Examination findings of process artist was noted. Neurological exam: PRESENT: alert, awake, oriented to person, oriented to place Psychiatric exam: PRESENT: appropriate affect Results Laboratory Results: 12/27/19 17:19 12/27/19 17:19 12/27/19 12/27/19 12/27/19 17:19 17:19 18:55 WBC 9.5 RBC 3.20 L Hgb 9.0 L Hct 26.7 L MCV 83 MCH 28.2 MCHC 33.8 RDW 17.5 H Plt Count 382 Seg Neutrophils % 79.2 H Sodium 136.9 L Potassium 4.2 Chloride 98 Carbon Dioxide 28 Anion Gap 11 BUN 16 Creatinine 3.62 H Est GFR ( Amer) 21 L Glucose 104 Calcium 9.0 Phosphorus 3.2 Magnesium 1.9 Ferritin 812.00 H Total Bilirubin 1.0 AST 25 Alkaline Phosphatase 79 C-Reactive Protein 167.3 H Total Protein 8.8 H Albumin 3.7 12/27/19 18:55 Troponin I 0.093 Impressions: Chest X-Ray 12/27/19 17:54 IMPRESSION: Diffuse pulmonary infiltrates/edema. Assessment & Plan - Diagnosis (1) Suspected COVID-19 virus infection Is this a current diagnosis for this admission?: Yes Plan: As per chest x-ray and spontaneous hypoxia postdialysis. Management as per [facility]anger. (2) Acute respiratory failure with hypoxia Is this a current diagnosis for this admission?: Yes Plan: Being managed by hospitalist/process artist (3) Bacteremia due to methicillin resistant Staphylococcus aureus Is this a current diagnosis for this admission?: Yes Plan: Patient on daptomycin 700 mg postdialysis till beginning of January. (4) Osteomyelitis Qualifiers: Osteomyelitis type: subacute Osteomyelitis location: unspecified site Qualified Code(s): M86.20 - Subacute osteomyelitis, unspecified site Is this a current diagnosis for this admission?: Yes Plan: Patient on daptomycin 700 mg till beginning of January. Status post cervical spine surgery. (5) End-stage renal disease on hemodialysis Is this a current diagnosis for this admission?: Yes Plan: Orders have been placed for dialysis in isolation until call with test results back. (6) Hypertension Plan: Controlled. Monitor. (7) MRSA (methicillin resistant Staphylococcus aureus) septicemia Plan: On daptomycin 700 mg for MRSA bacterial endocarditis/cervical spine osteomyelitis to the beginning of January. (8) Neoplasm of uncertain behavior of right kidney Plan: Needs to be worked up at [facility] once he is done with his treatment for osteomyelitis and bacterial endocarditis.
[2019-12-28] MEDS: SENNOSIDES/DOCUSATE 8.6-50 MG 1 EACH TABLET PO SCH (21:30)
[2019-12-28] MEDS ORDERED: DAPTOMYCIN 500 MG in NORMAL SALINE 50 ML IV SCH (22:00)
[2019-12-28] MEDS ORDERED: ACETAMINOPHEN 325 MG TABLET ONE (23:58)
[2019-12-29] MEDS: METOPROLOL TARTRATE PF/INJ 5 MG/5 ML SDV IV SCH ×4 (00:01→18:38)
[2019-12-29] MEDS: GUAIFENESIN SYRP 200 MG/10 ML UDC PO PRN ×5 (00:01→23:30)
[2019-12-29] MEDS: ALBUTEROL SULFATE HFA (90 MCG/PUFF) 200 PUFF/8.5 GM MDI IH SCH ×6 (00:03→20:15)
[2019-12-29] MEDS ORDERED: HEPARIN SOD (PORCINE) 1,000 UNIT/ML 10 ML VIAL IV PRN (05:00)
[2019-12-29] MEDS ORDERED: EPOETIN ALFA-EPBX 2,000 UNIT, EPOETIN ALFA-EPBX 3,000 UNIT, EPOETIN ALFA-EPBX 20,000 UN... IV PRN ×4 (05:00)
[2019-12-29 07:28] LABS: HEMATOCRIT 24.9 % (37.9-51.0); HEMOGLOBIN 8.2 g/dL (13.5-17.0); MEAN CORPUSCULAR HEMOGLOBIN 27.6 pg (27.0-33.4); MEAN CORPUSCULAR HGB CONC 33.1 g/dL (32.0-36.0); MEAN CORPUSCULAR VOLUME 84 fl (80-97); PLATELET COUNT 273 10^3/uL (150-450); RED BLOOD COUNT 2.98 10^6/uL (4.35-5.55)
[2019-12-29 07:47] LABS: ANION GAP 12 (5-19); BLOOD UREA NITROGEN 40 mg/dL (7-20); CALCIUM 9.2 mg/dL (8.4-10.2); CARBON DIOXIDE 25 mmol/L (22-30); CHLORIDE 96 mmol/L (98-107); GLUCOSE 104 mg/dL (75-110); POTASSIUM 4.2 mmol/L (3.6-5.0)
[2019-12-29] MEDS ORDERED: ONDANSETRON 4 MG TAB.RAPDIS ONE (10:40)
[2019-12-29] MEDS: FAMOTIDINE 20 MG TABLET PO SCH (10:53)
[2019-12-29] MEDS: APIXABAN 2.5 MG TABLET PO SCH ×2 (10:53→18:38)
[2019-12-29] MEDS: ACETAMINOPHEN 325 MG TABLET PO PRN ×2 (14:50→21:00)
--- NOTE | 2019-12-29 16:10 | PDOC PROGRESS REPORT ---
Subjective Progress Note for:: 12/29/19 Subjective:: Patient well-known to me presently admitted in ICU in isolation for suspected COVID, because of the pandemic patient is not examined, record review, patient downgraded to COVID floor on the fifth floor, waiting for a bed Reason For Visit: ACUTE RESPIRATORY FAILURE DUE TO HYPOXIA; PROBABLE Physical Exam Vital Signs: Temp Pulse Resp BP Pulse Ox 98.6 F 82 17 121/50 L 100 12/29/19 11:44 12/29/19 11:44 12/29/19 11:44 12/29/19 11:44 12/29/19 11:44 Intake & Output 12/28/19 12/29/19 12/30/19 06:59 06:59 06:59 Intake Total 50 1325 360 Output Total 0 Balance 50 1325 360 Weight 81.8 kg 80.9 kg Results Laboratory Results: 12/29/19 06:27 12/29/19 06:27 12/29/19 12/29/19 06:27 06:27 WBC 8.0 RBC 2.98 L Hgb 8.2 L Hct 24.9 L MCV 84 MCH 27.6 MCHC 33.1 RDW 17.0 H Plt Count 273 Sodium 133.0 L Potassium 4.2 Chloride 96 L Carbon Dioxide 25 Anion Gap 12 BUN 40 H Creatinine 7.32 H Est GFR ( Amer) 9 L Glucose 104 Calcium 9.2 12/27/19 18:55 Troponin I 0.093 Impressions: Chest X-Ray 12/27/19 17:54 IMPRESSION: Diffuse pulmonary infiltrates/edema. Assessment & Plan - Diagnosis (1) Pneumonia, unspecified organism Is this a current diagnosis for this admission?: Yes Plan: Continue antibiotic (2) Bacteremia due to methicillin resistant Staphylococcus aureus Is this a current diagnosis for this admission?: Yes (3) End stage renal disease on dialysis Is this a current diagnosis for this admission?: Yes - Time Time Spent with patient: 25-34 minutes Level of Care: MEDICAL
--- NOTE | 2019-12-29 16:57 | PDOC PROGRESS REPORT ---
Subjective Progress Note for:: 12/29/19 Reason For Visit: Patient seen on hemodialysis on the fifth floor in isolation as he is admitted for suspected COVID pneumonia.Patient undergoing dialysis without any issues. Labs and medications were reviewed Physical Exam Vital Signs: Temp Pulse Resp BP Pulse Ox 98.6 F 82 17 121/50 L 100 12/29/19 11:44 12/29/19 11:44 12/29/19 11:44 12/29/19 11:44 12/29/19 11:44 Intake & Output 12/28/19 12/29/19 12/30/19 06:59 06:59 06:59 Intake Total 50 1325 360 Output Total 0 Balance 50 1325 360 Weight 81.8 kg 80.9 kg General appearance: PRESENT: no acute distress Respiratory exam: PRESENT: clear to auscultation dave. ABSENT: crackles Cardiovascular exam: PRESENT: +S1, +S2 Extremities exam: ABSENT: pedal edema Neurological exam: PRESENT: alert, awake, oriented to person, oriented to place Results Laboratory Results: 12/29/19 06:27 12/29/19 06:27 12/29/19 12/29/19 06:27 06:27 WBC 8.0 RBC 2.98 L Hgb 8.2 L Hct 24.9 L MCV 84 MCH 27.6 MCHC 33.1 RDW 17.0 H Plt Count 273 Sodium 133.0 L Potassium 4.2 Chloride 96 L Carbon Dioxide 25 Anion Gap 12 BUN 40 H Creatinine 7.32 H Est GFR ( Amer) 9 L Glucose 104 Calcium 9.2 12/27/19 18:55 Troponin I 0.093 Impressions: Chest X-Ray 12/27/19 17:54 IMPRESSION: Diffuse pulmonary infiltrates/edema. Assessment & Plan - Diagnosis (1) End-stage renal disease on hemodialysis Is this a current diagnosis for this admission?: Yes Plan: Patient currently undergoing dialysis. Vital signs are stable. Plan to remove 1-2 L as tolerated. Dialysis being supervised. Dialysis orders reviewed the treating dialysis nurse. (2) Suspected COVID-19 virus infection Is this a current diagnosis for this admission?: Yes Plan: Patient in isolation pending covid serology.Chest x-ray is quite suggestive of COVID like pneumonia. (3) Acute respiratory failure with hypoxia Is this a current diagnosis for this admission?: Yes Plan: Currently on oxygen. Stable as long as he is not exerting (4) Bacteremia due to methicillin resistant Staphylococcus aureus Is this a current diagnosis for this admission?: Yes Plan: Had MRSA bacterial endocarditis/cervical spine osteomyelitis. Continue on daptomycin till beginning of January. (5) Osteomyelitis Qualifiers: Osteomyelitis type: subacute Osteomyelitis location: unspecified site Qualified Code(s): M86.20 - Subacute osteomyelitis, unspecified site Is this a current diagnosis for this admission?: Yes Plan: As mentioned earlier. (6) Hypertension Plan: Stable. (7) Neoplasm of uncertain behavior of right kidney Plan: Further evaluation once he is done with the treatment for his MRSA endocarditis/osteomyelitis till the beginning of January.
[2019-12-29] MEDS ORDERED: DAPTOMYCIN 500 MG in NORMAL SALINE 50 ML IV SCH (18:00)
[2019-12-29] MEDS: SENNOSIDES/DOCUSATE 8.6-50 MG 1 EACH TABLET PO SCH (21:19)
[2019-12-29] MEDS: DAPTOMYCIN 700 MG in NORMAL SALINE 50 ML IV SCH (21:27)
[2019-12-30] MEDS: METOPROLOL TARTRATE PF/INJ 5 MG/5 ML SDV IV SCH ×4 (00:05→18:14)
[2019-12-30] MEDS: ALBUTEROL SULFATE HFA (90 MCG/PUFF) 200 PUFF/8.5 GM MDI IH SCH ×6 (00:05→21:20)
[2019-12-30] MEDS: GUAIFENESIN SYRP 200 MG/10 ML UDC PO PRN ×3 (03:30→21:20)
[2019-12-30] MEDS: ACETAMINOPHEN 325 MG TABLET PO PRN (05:00)
[2019-12-30] MEDS: FAMOTIDINE 20 MG TABLET PO SCH (09:10)
[2019-12-30] MEDS: APIXABAN 2.5 MG TABLET PO SCH ×2 (09:10→18:15)
[2019-12-30 10:31] LABS: HEMATOCRIT 24.9 % (37.9-51.0); HEMOGLOBIN 8.1 g/dL (13.5-17.0); MEAN CORPUSCULAR HEMOGLOBIN 27.1 pg (27.0-33.4); MEAN CORPUSCULAR HGB CONC 32.5 g/dL (32.0-36.0); MEAN CORPUSCULAR VOLUME 83 fl (80-97); PLATELET COUNT 265 10^3/uL (150-450); RED BLOOD COUNT 2.98 10^6/uL (4.35-5.55); RED CELL DISTRIBUTION WIDTH 17.2 % (11.5-14.0); WHITE BLOOD COUNT 8.1 10^3/uL (4.0-10.5)
[2019-12-30 10:51] LABS: ANION GAP 12 (5-19); BLOOD UREA NITROGEN 33 mg/dL (7-20); CALCIUM 9.1 mg/dL (8.4-10.2); CARBON DIOXIDE 29 mmol/L (22-30); CHLORIDE 93 mmol/L (98-107); GLUCOSE 85 mg/dL (75-110); POTASSIUM 4.1 mmol/L (3.6-5.0)
--- NOTE | 2019-12-30 20:31 | PDOC PROGRESS REPORT ---
Subjective Progress Note for:: 12/30/19 Subjective:: Patient seen by the bedside, he ruled out for COVID-19, chest x-ray on admission demonstrated diffuse infiltrate, I saw him on the floor today he looks stable maintaining adequate oxygenation on 2 L, will repeat chest x-ray. Presently on IV daptomycin for MRSA sepsis, had IV Levaquin Reason For Visit: ACUTE RESPIRATORY FAILURE DUE TO HYPOXIA; PROBABLE Physical Exam Vital Signs: Temp Pulse Resp BP Pulse Ox 97.7 F 98 16 117/54 L 100 12/30/19 16:34 12/30/19 19:00 12/30/19 16:34 12/30/19 16:34 12/30/19 16:34 Intake & Output 12/29/19 12/30/19 12/31/19 06:59 06:59 06:59 Intake Total 1325 1295 1062 Output Total 3100 Balance 1325 -1805 1062 Weight 80.9 kg 80.9 kg General appearance: PRESENT: no acute distress Eye exam: PRESENT: PERRLA Respiratory exam: PRESENT: rhonchi Cardiovascular exam: PRESENT: +S1, +S2 GI/Abdominal exam: PRESENT: soft Neurological exam: PRESENT: alert, CN II-XII grossly intact Results Laboratory Results: 12/30/19 09:55 12/30/19 09:55 12/30/19 12/30/19 09:55 09:55 WBC 8.1 RBC 2.98 L Hgb 8.1 L Hct 24.9 L MCV 83 MCH 27.1 MCHC 32.5 RDW 17.2 H Plt Count 265 Sodium 134.4 L Potassium 4.1 Chloride 93 L Carbon Dioxide 29 Anion Gap 12 BUN 33 H Creatinine 6.44 H Est GFR ( Amer) 11 L Glucose 85 Calcium 9.1 12/27/19 18:55 Troponin I 0.093 Impressions: Chest X-Ray 12/27/19 17:54 IMPRESSION: Diffuse pulmonary infiltrates/edema. Assessment & Plan - Diagnosis (1) Pneumonia Qualifiers: Pneumonia type: due to unspecified organism Laterality: unspecified laterality Lung location: unspecified part of lung Qualified Code(s): J18.9 - Pneumonia, unspecified organism Is this a current diagnosis for this admission?: Yes Plan: Continue IV antibiotic (2) Bacteremia due to methicillin resistant Staphylococcus aureus Is this a current diagnosis for this admission?: Yes Plan: Continue daptomycin (3) End stage renal disease Is this a current diagnosis for this admission?: Yes Plan: Continue hemodialysis - Time Time Spent with patient: 25-34 minutes Level of Care: IMCU Medications reviewed and adjusted accordingly: Yes
[2019-12-30] MEDS: SENNOSIDES/DOCUSATE 8.6-50 MG 1 EACH TABLET PO SCH (21:21)
[2019-12-30] MEDS ORDERED: LEVOFLOXACIN 750 MG/D5W RTU 750 MG/150 ML RTUPB IV ONE (22:00)
--- NOTE | 2019-12-30 22:03 | RADIOLOGY REPORT (SQ) ---
EXAM DESCRIPTION: AP portable radiograph of the chest CLINICAL HISTORY: 59 years Male, pneumonia COMPARISON: AP portable 12/27/2019 FINDINGS: Lungs: Extensive diffuse multifocal infiltrate is again identified bilaterally. When compared the previous exam this may have worsened in the left lung apex and improved in the left lung base. No pneumothorax. No pleural effusion. Mediastinum: Cardiac and mediastinal silhouette are widened. Dialysis catheter is in place. Bones: Osseous structures are unchanged IMPRESSION: Extensive multifocal pneumonia which is similar to the previous exam.
[2019-12-31] MEDS: METOPROLOL TARTRATE PF/INJ 5 MG/5 ML SDV IV SCH ×4 (00:46→19:48)
[2019-12-31] MEDS: ALBUTEROL SULFATE HFA (90 MCG/PUFF) 200 PUFF/8.5 GM MDI IH SCH ×5 (00:47→19:49)
[2019-12-31] MEDS: GUAIFENESIN SYRP 200 MG/10 ML UDC PO PRN ×3 (01:40→20:25)
[2019-12-31] MEDS ORDERED: EPOETIN ALFA-EPBX 2,000 UNIT, EPOETIN ALFA-EPBX 3,000 UNIT, EPOETIN ALFA-EPBX 20,000 UN... IV PRN ×4 (05:00)
[2019-12-31] MEDS ORDERED: HEPARIN SOD (PORCINE) 1,000 UNIT/ML 10 ML VIAL IV PRN (05:00)
[2019-12-31 05:20] LABS: HEMATOCRIT 26.3 % (37.9-51.0); HEMOGLOBIN 8.6 g/dL (13.5-17.0); MEAN CORPUSCULAR HEMOGLOBIN 27.3 pg (27.0-33.4); MEAN CORPUSCULAR HGB CONC 32.5 g/dL (32.0-36.0); MEAN CORPUSCULAR VOLUME 84 fl (80-97); PLATELET COUNT 265 10^3/uL (150-450); RED BLOOD COUNT 3.14 10^6/uL (4.35-5.55); RED CELL DISTRIBUTION WIDTH 17.1 % (11.5-14.0); WHITE BLOOD COUNT 8.7 10^3/uL (4.0-10.5)
[2019-12-31 05:35] LABS: ANION GAP 15 (5-19); BLOOD UREA NITROGEN 50 mg/dL (7-20); CALCIUM 9.3 mg/dL (8.4-10.2); CARBON DIOXIDE 27 mmol/L (22-30); CHLORIDE 93 mmol/L (98-107); GLUCOSE 105 mg/dL (75-110); POTASSIUM 4.6 mmol/L (3.6-5.0)
[2019-12-31] MEDS: APIXABAN 2.5 MG TABLET PO SCH ×2 (11:46→19:41)
[2019-12-31] MEDS: FAMOTIDINE 20 MG TABLET PO SCH (11:46)
--- NOTE | 2019-12-31 12:57 | PDOC PROGRESS REPORT ---
Subjective Progress Note for:: 12/31/19 Reason For Visit: Patient was seen on dialysis on the fourth floor after he has been taken off the COVID list from the fifth floor because the COVID serologies came back negative. However his chest x-ray done yesterday shows persistent bilateral multifocal pneumonia that is still indicative of possible COVID pneumonia. Patient says he is feeling better. His breathing is a whole lot better. He denies any history of fever or chills or chest pains. Labs and medications were reviewed. Dialysis orders were reviewed with the treating dialysis nurse. Physical Exam Vital Signs: Temp Pulse Resp BP Pulse Ox 98.1 F 87 16 138/52 H 100 12/31/19 12:03 12/31/19 12:03 12/31/19 12:03 12/31/19 12:03 12/31/19 12:03 Intake & Output 12/30/19 12/31/19 01/01/20 06:59 06:59 06:59 Intake Total 1295 1434 800 Output Total 3100 3200 Balance -1805 1434 -2400 Weight 80.9 kg 89.9 kg General appearance: PRESENT: no acute distress Respiratory exam: PRESENT: clear to auscultation dave, decreased breath sounds. ABSENT: crackles Cardiovascular exam: PRESENT: +S1, +S2 Extremities exam: PRESENT: pedal edema Neurological exam: PRESENT: alert, awake, oriented to person, oriented to place Psychiatric exam: PRESENT: appropriate affect Results Laboratory Results: 12/31/19 05:01 12/31/19 05:01 12/31/19 12/31/19 05:01 05:01 WBC 8.7 RBC 3.14 L Hgb 8.6 L Hct 26.3 L MCV 84 MCH 27.3 MCHC 32.5 RDW 17.1 H Plt Count 265 Sodium 134.5 L Potassium 4.6 Chloride 93 L Carbon Dioxide 27 Anion Gap 15 BUN 50 H Creatinine 7.69 H Est GFR ( Amer) 9 L Glucose 105 Calcium 9.3 12/28/19 22:55 Sputum Gram Stain - Final 12/28/19 22:55 Sputum Sputum Culture - Final Klebsiella Pneumoniae Reduced Normal Talia 12/27/19 18:55 Troponin I 0.093 Impressions: Chest X-Ray 12/30/19 00:00 IMPRESSION: Extensive multifocal pneumonia which is similar to the previous exam. Assessment & Plan - Diagnosis (1) End-stage renal disease on hemodialysis Is this a current diagnosis for this admission?: Yes Plan: Patient currently undergoing dialysis. Vital signs are stable. Plan to remove 1-2 L as tolerated. Dialysis being supervised. Dialysis orders reviewed the treating dialysis nurse. (2) Suspected COVID-19 virus infection Is this a current diagnosis for this admission?: Yes Plan: Since his COVID serology turned out negative he has been taken off isolation and is now on the general floor. However his repeat chest x-ray is still Showing bilateral multifocal pneumonia.Even though serologies is negative I have advised the nurses that one should take precautions that this could be a false negative serology and should treat him with all proper attire and precautions.Advised the patient on the same but he should always wear his mask (3) Acute respiratory failure with hypoxia Is this a current diagnosis for this admission?: Yes Plan: Much improved (4) Bacteremia due to methicillin resistant Staphylococcus aureus Is this a current diagnosis for this admission?: Yes Plan: Had MRSA bacterial endocarditis/cervical spine osteomyelitis. Continue on daptomycin till beginning of January. (5) Osteomyelitis Qualifiers: Osteomyelitis type: subacute Osteomyelitis location: unspecified site Rodo lified Code(s): M86.20 - Subacute osteomyelitis, unspecified site Is this a current diagnosis for this admission?: Yes Plan: As mentioned earlier. (6) Hypertension Plan: Stable. (7) Neoplasm of uncertain behavior of right kidney Plan: Further evaluation once he is done with the treatment for his MRSA endocarditis/osteomyelitis till the beginning of January.
--- NOTE | 2019-12-31 19:31 | PDOC PROGRESS REPORT ---
Subjective Progress Note for:: 12/31/19 Subjective:: Patient seen by the bedside, he had dialysis today, the sputum grew Klebsiella pneumonia, sensitive to Levaquin, patient was started on Levaquin yesterday. The PCR test for COVID-19 was negative, chest x-ray still demonstrated diffuse bilateral infiltrates. He probably has gram-negative pneumonia. I reviewed Dr. Benson's notes, he is concerned of the possibility of false negative test for the COVID test still want precaution to be taken from respiratory standpoint. Reason For Visit: ACUTE RESPIRATORY FAILURE DUE TO HYPOXIA; PROBABLE Physical Exam Vital Signs: Temp Pulse Resp BP Pulse Ox 97.3 F 91 20 120/52 L 100 12/31/19 15:53 12/31/19 15:53 12/31/19 15:53 12/31/19 15:53 12/31/19 15:53 Intake & Output 12/30/19 12/31/19 01/01/20 06:59 06:59 06:59 Intake Total 1295 1434 1826 Output Total 3100 3200 Balance -1805 1434 -1374 Weight 80.9 kg 89.9 kg General appearance: PRESENT: no acute distress Eye exam: PRESENT: PERRLA Respiratory exam: PRESENT: rhonchi Cardiovascular exam: PRESENT: +S1, +S2 GI/Abdominal exam: PRESENT: soft Neurological exam: PRESENT: alert, CN II-XII grossly intact Results Laboratory Results: 12/31/19 05:01 12/31/19 05:01 12/31/19 12/31/19 05:01 05:01 WBC 8.7 RBC 3.14 L Hgb 8.6 L Hct 26.3 L MCV 84 MCH 27.3 MCHC 32.5 RDW 17.1 H Plt Count 265 Sodium 134.5 L Potassium 4.6 Chloride 93 L Carbon Dioxide 27 Anion Gap 15 BUN 50 H Creatinine 7.69 H Est GFR ( Amer) 9 L Glucose 105 Calcium 9.3 12/28/19 22:55 Sputum Gram Stain - Final 12/28/19 22:55 Sputum Sputum Culture - Final Klebsiella Pneumoniae Reduced Normal Talia 12/27/19 18:55 Troponin I 0.093 Impressions: Chest X-Ray 12/30/19 00:00 IMPRESSION: Extensive multifocal pneumonia which is similar to the previous exam. Assessment & Plan - Diagnosis (1) Klebsiella pneumoniae pneumonia Qualifiers: Laterality: bilateral Lung location: unspecified part of lung Qualified Code(s): J15.0 - Pneumonia due to Klebsiella pneumoniae Is this a current diagnosis for this admission?: Yes Plan: Continue IV antibiotic Levaquin (2) Bacteremia due to methicillin resistant Staphylococcus aureus Is this a current diagnosis for this admission?: Yes Plan: Continue daptomycin (3) End stage renal disease on dialysis Is this a current diagnosis for this admission?: Yes Plan: Continue hemodialysis supervised by nephrology - Time Time Spent with patient: 35 or more minutes Level of Care: IMCU Medications reviewed and adjusted accordingly: Yes
[2019-12-31] MEDS: DAPTOMYCIN 700 MG in NORMAL SALINE 50 ML IV SCH (19:39)
[2019-12-31] MEDS: ACETAMINOPHEN 325 MG TABLET PO PRN (22:07)
[2019-12-31] MEDS: SENNOSIDES/DOCUSATE 8.6-50 MG 1 EACH TABLET PO SCH (22:07)
[2020-01-01] MEDS: METOPROLOL TARTRATE PF/INJ 5 MG/5 ML SDV IV SCH ×4 (00:39→17:45)
[2020-01-01] MEDS: ALBUTEROL SULFATE HFA (90 MCG/PUFF) 200 PUFF/8.5 GM MDI IH SCH ×7 (00:41→21:05)
[2020-01-01] MEDS: GUAIFENESIN SYRP 200 MG/10 ML UDC PO PRN ×3 (05:30→21:05)
[2020-01-01] MEDS: FAMOTIDINE 20 MG TABLET PO SCH (09:59)
[2020-01-01] MEDS: APIXABAN 2.5 MG TABLET PO SCH ×2 (09:59→17:45)
[2020-01-01] MEDS: LEVOFLOXACIN 500 MG/D5W RTU 500 MG/100 ML RTUPB IV SCH (09:59)
[2020-01-01] MEDS: ACETAMINOPHEN 325 MG TABLET PO PRN (14:05)
--- NOTE | 2020-01-01 15:28 | PDOC PROGRESS REPORT ---
Subjective Progress Note for:: 01/01/20 Subjective:: Patient reported episode of headache that resolved with administration of Tylenol. Coughing persist with intermittent sputum production. No chest pain or difficulty with breathing. No nausea or vomiting. no abdominal pain. No fever or chills. Reason For Visit: ACUTE RESPIRATORY FAILURE DUE TO HYPOXIA; PROBABLE Physical Exam Vital Signs: Temp Pulse Resp BP Pulse Ox 98.0 F 91 20 107/74 100 01/01/20 13:14 01/01/20 14:00 01/01/20 13:14 01/01/20 13:14 01/01/20 13:14 Intake & Output 12/31/19 01/01/20 01/02/20 06:59 06:59 06:59 Intake Total 1434 2286 Output Total 3200 Balance 1434 -914 Weight 89.9 kg 88.7 kg General appearance: PRESENT: obese Head exam: PRESENT: atraumatic, normocephalic Eye exam: PRESENT: conjunctiva pink, scleral icterus Ear exam: PRESENT: normal external ear exam Respiratory exam: PRESENT: decreased breath sounds - lung bases Cardiovascular exam: PRESENT: RRR, +S1, +S2. ABSENT: diastolic murmur, rubs, systolic murmur Vascular exam: PRESENT: pallor GI/Abdominal exam: PRESENT: normal bowel sounds, soft. ABSENT: distended, guarding, mass, organolmegaly, rebound, tenderness Extremities exam: PRESENT: pedal edema - right upper extremity Neurological exam: PRESENT: alert, awake, oriented to person, oriented to place, oriented to time, oriented to situation, CN II-XII grossly intact. ABSENT: motor sensory deficit Skin exam: PRESENT: dry, warm Results Laboratory Results: 12/31/19 05:01 12/31/19 05:01 12/27/19 18:55 Troponin I 0.093 Impressions: Chest X-Ray 12/30/19 00:00 IMPRESSION: Extensive multifocal pneumonia which is similar to the previous exam. Assessment & Plan - Diagnosis (1) Klebsiella pneumoniae pneumonia Qualifiers: Laterality: bilateral Lung location: unspecified part of lung Qualified Code(s): J15.0 - Pneumonia due to Klebsiella pneumoniae Is this a current diagnosis for this admission?: Yes Plan: Continue IV Levofloxacin coverage. Encouraged use of bedside devices including flutter and incentive spirometry. Maintain on Robitusin for cough management. (2) Bacteremia due to methicillin resistant Staphylococcus aureus Is this a current diagnosis for this admission?: Yes Plan: Continue IV Daptomycin coverage. (3) Chronic atrial fibrillation Is this a current diagnosis for this admission?: Yes Plan: Maintain on Eliquis therapy for anticoagulation on chronic atrial fibrillation. (4) End-stage renal disease on hemodialysis Is this a current diagnosis for this admission?: Yes Plan: Continue hemodialysis supplementation as per nephrology team. - Time Time Spent with patient: 25-34 minutes Level of Care: IMCU Medications reviewed and adjusted accordingly: Yes Anticipated discharge: Home with Homehealth Within: Other - Inpatient Certification Based on my medical assessment, after consideration of the patient's comorbidities, presenting symptoms, or acuity I expect that the services needed warrant INPATIENT care.: Yes I certify that my determination is in accordance with my understanding of Medicare's requirements for reasonable and necessary INPATIENT services [42 CFR 412.3e].: Yes Medical Necessity: Significant Comorbidiites Make Outpatient Treatment Too Risky, Need Close Monitoring Due to Risk of Patient Decompensation, Need For Continuous Telemetry Monitoring, Need for IV Antibiotics, Risk of Complication if Not Cared For in Hospital, Risk of Diagnosis Which Will Require Inpatient Eval/Care/Monitoring Post Hospital Care: D/C Fur Sorter Documentation - Plan Summary Plan Summary: Maintain on all current medication management.
[2020-01-01] MEDS: SENNOSIDES/DOCUSATE 8.6-50 MG 1 EACH TABLET PO SCH (21:03)
[2020-01-02] MEDS: METOPROLOL TARTRATE PF/INJ 5 MG/5 ML SDV IV SCH ×4 (00:49→17:58)
[2020-01-02] MEDS: ALBUTEROL SULFATE HFA (90 MCG/PUFF) 200 PUFF/8.5 GM MDI IH SCH ×6 (00:50→21:32)
[2020-01-02] MEDS: GUAIFENESIN SYRP 200 MG/10 ML UDC PO PRN ×4 (01:52→22:01)
[2020-01-02] MEDS: APIXABAN 2.5 MG TABLET PO SCH ×2 (09:18→17:58)
[2020-01-02] MEDS: FAMOTIDINE 20 MG TABLET PO SCH (09:18)
--- NOTE | 2020-01-02 16:24 | PDOC PROGRESS REPORT ---
Subjective Progress Note for:: 01/02/20 Subjective:: Patient reported occasional difficulty with breathing. His coughing persist with intermittent sputum production. No chest pain or difficulty with breathing. No nausea or vomiting. no abdominal pain. No fever or chills. Reason For Visit: ACUTE RESPIRATORY FAILURE DUE TO HYPOXIA; PROBABLE Physical Exam Vital Signs: Temp Pulse Resp BP Pulse Ox 98.0 F 86 29 H 134/84 H 100 01/02/20 12:37 01/02/20 14:00 01/02/20 12:37 01/02/20 12:37 01/02/20 12:37 Intake & Output 01/01/20 01/02/20 01/03/20 06:59 06:59 06:59 Intake Total 2286 1080 120 Output Total 3200 0 Balance -914 1080 120 Weight 88.7 kg 88 kg Physical Exam: General appearance: PRESENT: obese Head exam: PRESENT: atraumatic, normocephalic Eye exam: PRESENT: conjunctiva pink, scleral icterus Ear exam: PRESENT: normal external ear exam Respiratory exam: PRESENT: decreased breath sounds - lung bases Cardiovascular exam: PRESENT: RRR, +S1, +S2. ABSENT: diastolic murmur, rubs, systolic murmur Vascular exam: PRESENT: pallor GI/Abdominal exam: PRESENT: normal bowel sounds, soft. ABSENT: distended, guarding, mass, organomegaly, rebound, tenderness Extremities exam: PRESENT: pedal edema - right upper extremity Neurological exam: PRESENT: alert, awake, oriented to person, oriented to place, oriented to time, oriented to situation, CN II-XII grossly intact. ABSENT: motor sensory deficit Skin exam: PRESENT: dry, warm Results Laboratory Results: 12/31/19 05:01 12/31/19 05:01 12/27/19 21:58 Blood Blood Culture - Final NO GROWTH IN 5 DAYS 12/27/19 17:19 Blood Blood Culture - Final NO GROWTH IN 5 DAYS 12/27/19 18:55 Troponin I 0.093 Impressions: Chest X-Ray 12/30/19 00:00 IMPRESSION: Extensive multifocal pneumonia which is similar to the previous exam. Assessment & Plan - Diagnosis (1) Klebsiella pneumoniae pneumonia Qualifiers: Laterality: bilateral Lung location: unspecified part of lung Qualified Code(s): J15.0 - Pneumonia due to Klebsiella pneumoniae Is this a current diagnosis for this admission?: Yes (2) Bacteremia due to methicillin resistant Staphylococcus aureus Is this a current diagnosis for this admission?: Yes (3) Chronic atrial fibrillation Is this a current diagnosis for this admission?: Yes (4) End-stage renal disease on hemodialysis Is this a current diagnosis for this admission?: Yes - Time Time Spent with patient: 25-34 minutes Level of Care: IMCU Medications reviewed and adjusted accordingly: Yes Anticipated discharge: Home with Homehealth Within: Other - Inpatient Certification Based on my medical assessment, after consideration of the patient's comorbidities, presenting symptoms, or acuity I expect that the services needed warrant INPATIENT care.: Yes I certify that my determination is in accordance with my understanding of Medicare's requirements for reasonable and necessary INPATIENT services [42 CFR 412.3e].: Yes Medical Necessity: Significant Comorbidiites Make Outpatient Treatment Too Risky, Need Close Monitoring Due to Risk of Patient Decompensation, Need For Continuous Telemetry Monitoring, Need for IV Antibiotics, Risk of Complication if Not Cared For in Hospital, Risk of Diagnosis Which Will Require Inpatient Mey l/Care/Monitoring Post Hospital Care: D/C Call Box Wirer Documentation - Plan Summary Plan Summary: Continue IV Daptomycin and Vancomycin coverage. Repeat Chest Ct without contrast for further evaluation of his chest pathology in view of worsening picture on his last chest X ray. Maintain on all other current medication management.
[2020-01-02 16:57] LABS: ABSOLUTE BASOPHILS # (AUTO) 0.1 10^3/uL (0.0-0.2); ABSOLUTE EOSINOPHILS # (AUTO) 0.4 10^3/uL (0.0-0.6); ABSOLUTE LYMPHOCYTES (AUTO) 1.1 10^3/uL (0.5-4.7); ABSOLUTE MONOCYTES (AUTO) 0.8 10^3/uL (0.1-1.4); ABSOLUTE NEUT (AUTO) 6.2 10^3/uL (1.7-8.2); BASOPHILS % (AUTO) 1.4 % (0-2); EOSINOPHILS % (AUTO) 4.8 % (0-6); HEMATOCRIT 25.9 % (37.9-51.0); HEMOGLOBIN 8.5 g/dL (13.5-17.0); MEAN CORPUSCULAR HEMOGLOBIN 27.2 pg (27.0-33.4); MEAN CORPUSCULAR HGB CONC 32.8 g/dL (32.0-36.0); MEAN CORPUSCULAR VOLUME 83 fl (80-97); MONOCYTES % (AUTO) 8.8 % (3-13); PLATELET COUNT 290 10^3/uL (150-450); RED BLOOD COUNT 3.12 10^6/uL (4.35-5.55); RED CELL DISTRIBUTION WIDTH 17.9 % (11.5-14.0); TOTAL CELLS COUNTED % (AUTO) 100 %; WHITE BLOOD COUNT 8.6 10^3/uL (4.0-10.5)
[2020-01-02 17:24] LABS: ALBUMIN 3.3 g/dL (3.5-5.0); ALKALINE PHOSPHATASE 68 U/L (38-126); ANION GAP 16 (5-19); ASPARTATE AMINO TRANSFERASE 21 U/L (17-59); BILIRUBIN,DIRECT 0.5 mg/dL (0.0-0.4); BILIRUBIN,TOTAL 0.8 mg/dL (0.2-1.3); BLOOD UREA NITROGEN 56 mg/dL (7-20); CALCIUM 9.4 mg/dL (8.4-10.2); CARBON DIOXIDE 26 mmol/L (22-30); CHLORIDE 91 mmol/L (98-107); GLUCOSE 119 mg/dL (75-110); TOTAL PROTEIN 7.7 g/dL (6.3-8.2)
--- NOTE | 2020-01-02 17:39 | RADIOLOGY REPORT (SQ) ---
EXAM DESCRIPTION: CT CHEST WITHOUT IMAGES COMPLETED DATE/TIME: 01/02/2020 5:17 pm REASON FOR STUDY: Worsening multifocal airspace disease process COMPARISON: 10/10/2019. TECHNIQUE: CT scan performed of the chest without intravenous contrast. Images reviewed with lung, soft tissue and bone windows. Reconstructed coronal and sagittal MPR images reviewed. All images st ored on PACS. All CT scanners at this facility use dose modulation, iterative reconstruction, and/or weight based d osing when appropriate to reduce radiation dose to as low as reasonably achievable (ALARA). [facility]: Dose Right [facility]: CareDose [facility]: Dose Right [facility]: Teradose 4D [facility]: [employer] RADIATION DOSE: CT Rad equipment meets quality standard of care and radiation dose reduction techniq ues were employed. CTDIvol: 8.2 mGy. DLP: 300 mGy-cm. mGy. LIMITATIONS: No technical limitations. FINDINGS: LUNGS AND PLEURA: Extensive diffuse ground-glass opacities throughout both lungs, more pro minent in the upper lobes. Bilateral pleural effusions. HILAR AND MEDIASTINAL STRUCTURES: Pretracheal lymph node has increased in size. No obvious aneurysm. HEART AND VASCULAR STRUCTURES: No aneurysm. No pericardial effusion. UPPER ABDOMEN: No significant findings. Limited exam. THYROID AND OTHER SOFT TISSUES: No masses. No adenopathy. BONES: No significant finding. HARDWARE: Central venous catheter. OTHER: Right axillary adenopathy appears unchanged. IMPRESSION: 1. BILATERAL PLEURAL EFFUSIONS. EXTENSIVE DIFFUSE GROUND-GLASS OPACITIES THROUGHOUT BOTH LUNGS MAY B E DUE TO MULTIFOCAL PNEUMONIA AND/OR PULMONARY EDEMA. 2. RIGHT AXILLARY ADENOPATHY APPEARS UNCHANGED. MEDIASTINAL ADENOPATHY IS SLIGHTLY WORSE. TECHNICAL DOCUMENTATION: JOB ID: [id number] Quality ID # [id number]: Final reports with documentation of one or more dose reduction techniques (e.g., Au tomated exposure control, adjustment of the mA and/or kV according to patient size, use of iterative reconstruction technique) 2010 [employer]- All Rights Reserved Reading location - IP/workstation name: [email or web address]
[2020-01-02] MEDS: ACETAMINOPHEN 325 MG TABLET PO PRN (21:39)
[2020-01-02] MEDS: SENNOSIDES/DOCUSATE 8.6-50 MG 1 EACH TABLET PO SCH (21:40)
[2020-01-03] MEDS: METOPROLOL TARTRATE PF/INJ 5 MG/5 ML SDV IV SCH ×5 (00:06→23:20)
[2020-01-03] MEDS: ALBUTEROL SULFATE HFA (90 MCG/PUFF) 200 PUFF/8.5 GM MDI IH SCH ×7 (00:06→23:21)
[2020-01-03] MEDS ORDERED: EPOETIN ALFA-EPBX 2,000 UNIT, EPOETIN ALFA-EPBX 3,000 UNIT, EPOETIN ALFA-EPBX 20,000 UN... IV PRN ×4 (05:00)
[2020-01-03] MEDS ORDERED: HEPARIN SOD (PORCINE) 1,000 UNIT/ML 10 ML VIAL IV PRN (05:00)
[2020-01-03] MEDS: GUAIFENESIN SYRP 200 MG/10 ML UDC PO PRN ×3 (05:55→23:20)
[2020-01-03 06:42] LABS: HEMATOCRIT 26.3 % (37.9-51.0); HEMOGLOBIN 8.5 g/dL (13.5-17.0); MEAN CORPUSCULAR HEMOGLOBIN 27.1 pg (27.0-33.4); MEAN CORPUSCULAR HGB CONC 32.5 g/dL (32.0-36.0); MEAN CORPUSCULAR VOLUME 83 fl (80-97); PLATELET COUNT 297 10^3/uL (150-450); RED BLOOD COUNT 3.15 10^6/uL (4.35-5.55); RED CELL DISTRIBUTION WIDTH 17.2 % (11.5-14.0); WHITE BLOOD COUNT 8.7 10^3/uL (4.0-10.5)
[2020-01-03 07:00] LABS: ANION GAP 13 (5-19); BLOOD UREA NITROGEN 55 mg/dL (7-20); CALCIUM 8.5 mg/dL (8.4-10.2); CARBON DIOXIDE 24 mmol/L (22-30); CHLORIDE 99 mmol/L (98-107); GLUCOSE 96 mg/dL (75-110); POTASSIUM 4.9 mmol/L (3.6-5.0)
[2020-01-03] MEDS: ACETAMINOPHEN 325 MG TABLET PO PRN (09:44)
[2020-01-03] MEDS: FAMOTIDINE 20 MG TABLET PO SCH (11:49)
[2020-01-03] MEDS: APIXABAN 2.5 MG TABLET PO SCH ×2 (11:49→17:33)
[2020-01-03] MEDS: LEVOFLOXACIN 500 MG/D5W RTU 500 MG/100 ML RTUPB IV SCH (11:50)
--- NOTE | 2020-01-03 12:43 | PDOC PROGRESS REPORT ---
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 Patient had COVID-19 negative test. Sputum culture was positive for Klebsiella and is currently being treated for pneumonia with IV Levaquin. However due to persistent bilateral diffuse airspace densities on the chest x-ray, clinically there is a question if the COVID-19 PCR testing could be a false negative. Currently he is out of isolation. He has been in the rehab facility. Chest CT on 01/02/2020 showed bilateral pleural effusion, extensive diffuse groundglass opacities th roughout both lungs which may be multifocal pneumonia and or pulmonary edema. I am seeing the patient during dialysis this morning. He does not appear to be short of breath. He said he is coughing with scanty yellowish phlegm. He reports some shortness of breath relieved by nebulizer. He said his neck is okay. He is currently tolerating dialysis without any problems. We are trying more ultrafiltration to see if his pulmonary opacities on chest x-ray and CT scan will clear up hopefully. Reason For Visit: ACUTE RESPIRATORY FAILURE DUE TO HYPOXIA; PROBABLE Physical Exam Vital Signs: Temp Pulse Resp BP Pulse Ox 97.4 F 86 27 H 149/67 H 100 01/03/20 03:15 01/03/20 07:00 01/03/20 03:15 01/03/20 03:15 01/03/20 03:15 Intake & Output 01/02/20 01/03/20 01/04/20 06:59 06:59 06:59 Intake Total 1080 476 Output Total 0 1 Balance 1080 475 Weight 88 kg 88.5 kg Vitals during dialysis: Blood pressure 121/56, heart rate 87, blood flow rate of 350 mL/min and dialysate flow rate of 800/min. Exam: General appearance: PRESENT: no acute distress, cooperative, well-developed, well-nourished Head exam: PRESENT: atraumatic, normocephalic Eye exam: PRESENT: conjunctiva slightly pale, PERRLA. ABSENT: scleral icterus Neck exam: ABSENT: JVD Respiratory exam: PRESENT: Diminished breath sounds. Mild rhonchi ABSENT: crackles, rales, unlabored, wheezes Cardiovascular exam: PRESENT: Regular rate rhythm -+S1, +S2. Grade 2/6 systolic murmur GI/Abdominal exam: PRESENT: normal bowel sounds, soft. ABSENT: guarding, mass, tenderness Extremities exam: ABSENT: No edema Neurological exam: PRESENT: alert, awake, oriented to person, place and time. Skin exam: PRESENT: dry, warm, Cardiovascular exam: PRESENT: +S1, +S2 Results Laboratory Results: 01/03/20 06:00 01/03/20 06:00 01/02/20 01/02/20 01/03/20 16:50 16:50 06:00 WBC 8.6 8.7 RBC 3.12 L 3.15 L Hgb 8.5 L 8.5 L Hct 25.9 L 26.3 L MCV 83 83 MCH 27.2 27.1 MCHC 32.8 32.5 RDW 17.9 H 17.2 H Plt Count 290 297 Seg Neutrophils % 72.0 Sodium 132.8 L Potassium 5.0 Chloride 91 L Carbon Dioxide 26 Anion Gap 16 BUN 56 H Creatinine 8.47 H Est GFR ( Amer) 8 L Glucose 119 H Calcium 9.4 Total Bilirubin 0.8 AST 21 Alkaline Phosphatase 68 Total Protein 7.7 Albumin 3.3 L 01/03/20 06:00 WBC RBC Hgb Hct MCV MCH MCHC RDW Plt Count Seg Neutrophils % Sodium 136.0 L Potassium 4.9 Chloride 99 Carbon Dioxide 24 Anion Gap 13 BUN 55 H Creatinine 8.24 H Est GFR ( Amer) 8 L Glucose 96 Calcium 8.5 Total Bilirubin AST Alkaline Phosphatase Total Protein Albumin 12/27/19 18:55 Troponin I 0.093 Impressions: Chest X-Ray 12/30/19 00:00 IMPRESSION: Extensive multifocal pneumonia which is similar to the previous exam. Chest CT 01/02/20 00:00 IMPRESSION: 1. BILATERAL PLEURAL EFFUSIONS. EXTENSIVE DIFFUSE GROUND-GLASS OPACITIES THROUGHOUT BOTH LUNGS MAY BE DUE TO MULTIFOCAL PNEUMONIA AND/OR PULMONARY EDEMA. 2. RIGHT AXILLARY ADENOPATHY APPEARS UNCHANGED. MEDIASTINAL ADENOPATHY IS SLIGHTLY WORSE. Assessment & Plan - Diagnosis (1) End-stage renal disease on hemodialysis Is this a current diagnosis for this admission?: Yes Plan: We will do dialysis today for 3 hours, using the patient's right IJ PermCath, with 2 potassium bath, blood flow rate of 350 mL per minute, dialysate flow rate of 800 mL per minute, ultrafiltration 3.5 to 4 L as tolerated, no heparin and Procrit with 25,000 units during dialysis intravenously. Patient is being monitored closely throughout dialysis treatment. So far he is tolerating ultrafiltration and is comfortable on dialysis. (2) Klebsiella pneumoniae pneumonia Qualifiers: Laterality: bilateral Lung location: unspecified part of lung Qualified Code(s): J15.0 - Pneumonia due to Klebsiella pneumoniae Is this a current diagnosis for this admission?: Yes Plan: Currently on IV Levaquin. COVID-19 negative. I asked the lab if we can do COVID-19 antibodies but as of this time the lab is not performing it nor is it being sent out to any in lab so it cannot be done. We will repeat chest x-ray tomorrow and see if the above pulmonary opacities are improving with additional ultrafiltration. (3) Anemia in chronic kidney disease (CKD) Qualifiers: Chronic kidney disease stage: on chronic dialysis Qualified Code(s): N18.6 - End stage renal disease; D63.1 - Anemia in chronic kidney disease; Z99.2 - Dependence on renal dialysis Is this a current diagnosis for this admission?: Yes Plan: Retacrit given on dialysis. (4) Hyponatremia Is this a current diagnosis for this admission?: Yes (5) Bacteremia due to methicillin resistant Staphylococcus aureus Is this a current diagnosis for this admission?: Yes Plan: On IV daptomycin until January 11, 2020. (6) Endocarditis of mitral valve Is this a current diagnosis for this admission?: Yes (7) Acute osteomyelitis of spine Is this a current diagnosis for this admission?: Yes Plan: Complication of MRSA bacteremia. - Time Time with patient: 15-25 minutes
--- NOTE | 2020-01-03 17:18 | RADIOLOGY REPORT (SQ) ---
EXAM DESCRIPTION: MRI CERVICAL SPINE WITHOUT IMAGES COMPLETED DATE/TIME: 01/03/2020 4:08 pm REASON FOR STUDY: cervical diskitis COMPARISON: 10/31/2019. TECHNIQUE: Sagittal and Axial imaging includes T1, T2, STIR and gradient echo sequences. LIMITATIONS: Lack of post IV contrast phase imaging may limit assessment for subtle infectious findi ngs. This includes limited assessment for epidural abscess and diskitis. FINDINGS: ALIGNMENT: Normal. VERTEBRAE: Heterogeneous appearance of the C2 vertebral body odontoid process. As before, potential bone loss here, heterogeneous erosion which may be progressive. Mild endplate changes at C3-4 includ ing edema and a posterior upper C4 endplate Schmorl's node. This looks grossly nonprogressive. No a bnormal increased signal within the disc. BONE MARROW: Diffusely low signal. Correlate with any evidence of metabolic bone disease or marrow r eplacement disorder. Does the patient have underlying pathology? DISCS: Multilevel loss in signal and height. HARDWARE: None in the spine. CORD AND BASE OF BRAIN: No overt suggestion of abnormal cord signal. SOFT TISSUES: No soft tissue masses. STENOSIS: No evidence of gross central stenosis. Due to the presence of motion artifact and some pos toperative artifact, some of the neural foramina are poorly assessed. UPPER THORACIC: Incompletely imaged. No significant spinal stenosis or exit foraminal stenosis. OTHER: Dorsal decompression with rods and screws at C3-4. IMPRESSION: 1. Changes C2, chronic. This C2 changes may be progressive, however with slightly more marrow edema compared to October. Differential is unchanged and includes tumor and infectious/ inflammatory etio logy. 2. C3-4 endplate changes are fairly unchanged. TECHNICAL DOCUMENTATION: JOB ID: [id number] 2010 [employer]- All Rights Reserved Reading location - IP/workstation name: [email or web address]
[2020-01-03] MEDS: DAPTOMYCIN 700 MG in NORMAL SALINE 50 ML IV SCH (17:36)
--- NOTE | 2020-01-03 19:07 | PDOC PROGRESS REPORT ---
Subjective Progress Note for:: 01/03/20 Subjective:: Patient seen by the bedside, he has Klebsiella pneumonia pneumonia with diffuse infiltrate on chest x-ray, he was hemodialyzed today, on auscultation of his chest it sounds much better suggesting that the infiltrate that was demonstrated on the image of his lung could be partly fluid. He had COVID-19 PCR test that was negative, Dr. Benson thought this could be false negative. COVID-19 PCR test is quite reliable, is a nucleic acid test which is quite specific ,the other concern I have is that patient is on daptomycin for MRSA it is possible that the MRSA could also be a cause of the pneumonia ,aptomycin is a poor antibiotic for MRSA pneumonia because it does not penetrate lung tissueI will request for infectious disease for guidance if repeat chest x-ray on Friday showed worsening infiltrate. But clinically patient looks much better Reason For Visit: ACUTE RESPIRATORY FAILURE DUE TO HYPOXIA; PROBABLE Physical Exam Vital Signs: Temp Pulse Resp BP Pulse Ox 98.2 F 91 21 H 116/39 L 95 01/03/20 14:35 01/03/20 14:35 01/03/20 14:35 01/03/20 14:35 01/03/20 14:35 Intake & Output 01/02/20 01/03/20 01/04/20 06:59 06:59 06:59 Intake Total 1180 476 100 Output Total 0 1 3900 Balance 1180 475 -3800 Weight 88 kg 88.5 kg General appearance: PRESENT: no acute distress Head exam: PRESENT: atraumatic, normocephalic Eye exam: PRESENT: conjunctiva pink, EOMI, PERRLA Ear exam: PRESENT: normal external ear exam Mouth exam: PRESENT: moist, tongue midline Neck exam: PRESENT: full ROM Respiratory exam: PRESENT: clear to auscultation dave Cardiovascular exam: PRESENT: RRR, +S1, +S2 Vascular exam: PRESENT: normal capillary refill GI/Abdominal exam: PRESENT: normal bowel sounds, soft Rectal exam: PRESENT: deferred Neurological exam: PRESENT: alert, CN II-XII grossly intact Psychiatric exam: PRESENT: appropriate affect, normal mood Skin exam: PRESENT: dry, intact, warm Results Laboratory Results: 01/03/20 06:00 01/03/20 06:00 01/03/20 01/03/20 06:00 06:00 WBC 8.7 RBC 3.15 L Hgb 8.5 L Hct 26.3 L MCV 83 MCH 27.1 MCHC 32.5 RDW 17.2 H Plt Count 297 Sodium 136.0 L Potassium 4.9 Chloride 99 Carbon Dioxide 24 Anion Gap 13 BUN 55 H Creatinine 8.24 H Est GFR ( Amer) 8 L Glucose 96 Calcium 8.5 12/27/19 18:55 Troponin I 0.093 Impressions: Chest X-Ray 12/30/19 00:00 IMPRESSION: Extensive multifocal pneumonia which is similar to the previous exam. Chest CT 01/02/20 00:00 IMPRESSION: 1. BILATERAL PLEURAL EFFUSIONS. EXTENSIVE DIFFUSE GROUND-GLASS OPACITIES THROUGHOUT BOTH LUNGS MAY BE DUE TO MULTIFOCAL PNEUMONIA AND/OR PULMONARY EDEMA. 2. RIGHT AXILLARY ADENOPATHY APPEARS UNCHANGED. MEDIASTINAL ADENOPATHY IS SLIGHTLY WORSE. Cervical Spine MRI 01/03/20 09:00 IMPRESSION: 1. Changes C2, chronic. This C2 changes may be progressive, however with slightly more marrow edema compared to October. Differential is unchanged and includes tumor and infectious/ inflammatory etiology. 2. C3-4 endplate changes are fairly unchanged. Assessment & Plan - Diagnosis (1) Klebsiella pneumoniae pneumonia Qualifiers: Laterality: bilateral Lung location: unspecified part of lung Qualified Code(s): J15.0 - Pneumonia due to Klebsiella pneumoniae Is this a current diagnosis for this admission?: Yes Plan: Continue present IV antibiotic, Levaquin (2) End stage renal disease on dialysis Is this a current diagnosis for this admission?: Yes Plan: Hemodialysis per nephrology (3) MRSA (methicillin resistant Staphylococcus aureus) septicemia Is this a current diagnosis for this admission?: Yes Plan: He has MRSA septicemia, he has been on daptomycin for quite a while, the likelihood of MRSA pneumonia is quite low but if he has MRSA pneumonia, daptomycin will be a poor choice because of the poor lung penetrance, order blood culture (4) Chronic atrial fibrillation Is this a current diagnosis for this admission?: Yes Plan: Continue anticoagulation with Eliquis - Time Time Spent with patient: 35 or more minutes Level of Care: IMCU
[2020-01-03] MEDS: SENNOSIDES/DOCUSATE 8.6-50 MG 1 EACH TABLET PO SCH (21:22)
--- NOTE | 2020-01-03 22:14 | XCELERA REPORT ---
[address] [address] Transthoracic Echocardiogram Report Name: OLINDA OCAMPO Age: 59 yrs Gender: Male : 1960 Patient Status: Inpatient Patient Location: [facility]^A Study Date: 12/31/2019 01:43 PM Height: 67 in Weight: 198 lb BSA: 2.0 m2 Procedure: A two-dimensional transthoracic echocardiogram with color flow and Doppler was performed. Study Quality: Fair. Reason For Study: CHF History: CHF. Ordering Physician: СВЕТЛАНА WHEELER Performed By: Nadeen Shah Interpretation Summary Note the study was noticed only today (01/02 ) by me as renzo on I did not see it. Discussed findings with . The left ventricle is normal in size. There is normal left ventricular wall thickness. LV EF is > than 60%.% Left ventricular systolic function is normal. Doppler measurements suggest normal left ventricular diastolic function The left ventricular wall motion is normal. There is no thrombus. No ASD,VSD,or PFO seen. The right ventricle is normal in size and function. The right atrium is normal. The left atrium is moderately dilated. There is no evidence of mitral valve prolapse. Cannot exclde a posterior leaflet vegetation.Not well visssssualised. There is no mitral valve stenosis. There is a moderate to severe amount of mitral regurgitation Vegetation measures 1.3 X 1.4 cms. There is moderate aortic stenosis There is a peak gradient of 48.7 mm of Hg , and mean gradient of 29.4 mm of Hg. There is no LVOT obstruction. There is a trace amount of aortic regurgitation There is no tricuspid stenosis. There is a mild amount of tricuspid regurgitation There is mild to moderate pulmonary hypertension by echo RVSP is 45.6 to 50,6 mm of Hg , with RA mean of 5 to 10. There is no vegetation on the pulmonic valve. There is no pulmonic valvular stenosis. There is a mild amount of pulmonic regurgitation The aortic root is normal size. The inferior vena cava appeared normal and decreased > 50% with respiration (RAP 5-10 mmHg) MMode/2D Measurements & Calculations RVDd: 3.2 cm LVIDd: 5.7 cm FS: 35.6 % Ao root diam: 2.9 cm IVSd: 1.1 cm LVIDs: 3.7 cm EDV(Teich): 162.2 ml LVPWd: 1.1 cm ESV(Teich): 57.8 ml Ao root area: EF(Teich): 64.4 % 6.7 cm2 LVOT diam: 2.2 cmEDV(MOD-sp4): SV(MOD-sp4): LVOT area: 160.1 ml 102.2 ml ESV(MOD-sp4): 3.9 cm2 57.9 ml EF(MOD-sp4): 63.8 % Doppler Measurements & Calculations MV E max calin: MV dec slope: Ao V2 max: LV V1 max P.1 cm/sec 974.4 cm/sec2 349.0 cm/sec 10.5 mmHg MV A max calin: MV dec time: Ao max PG: LV V1 mean P.3 cm/sec 0.16 sec 48.7 mmHg 5.7 mmHg MV E/A: 2.3 Ao V2 mean: LV V1 max: 257.6 cm/sec 162.2 cm/sec Ao mean PG: LV V1 mean: 29.4 mmHg 113.3 cm/sec Ao V2 VTI: 72.6 cmLV V1 VTI: 33.2 cm RASHEED(I,D): 1.8 cm2 RASHEED(V,D): 1.8 cm2 MR max calin: SV(LVOT): 131.1 ml PA V2 max: TR max calin: 651.5 cm/sec 121.9 cm/sec 318.6 cm/sec MR max PG: PA max PG: TR max P.8 mmHg 5.9 mmHg 40.6 mmHg Left Ventricle The left ventricle is normal in size. There is normal left ventricular wall thickness. LV EF is > than 60%.%. Left ventricular systolic function is normal. Doppler measurements suggest normal left ventricular diastolic function. The left ventricular wall motion is normal. There is no thrombus. No ASD,VSD,or PFO seen. Right Ventricle The right ventricle is normal in size and function. Atria The right atrium is normal. The left atrium is moderately dilated. Mitral Valve There is no evidence of mitral valve prolapse. Cannot exclde a posterior leaflet vegetation.Not well visssssualised. There is no mitral valve stenosis. There is a moderate to severe amount of mitral regurgitation. Aortic Valve There is a moderate size vegetation or mass on the aortic valve. Vegetation measures 1.3 X 1.4 cms. There is moderate aortic stenosis. There is a peak gradient of 48.7 mm of Hg , and mean gradient of 29.4 mm of Hg. There is no LVOT obstruction. There is a trace amount of aortic regurgitation. Tricuspid Valve There is a small vegetation or mass on the tricuspid valve. There is no tricuspid stenosis. There is a mild amount of tricuspid regurgitation. There is mild to moderate pulmonary hypertension by echo. RVSP is 45.6 to 50,6 mm of Hg , with RA mean of 5 to 10. Pulmonic Valve There is no vegetation on the pulmonic valve. There is no pulmonic valvular stenosis. There is a mild amount of pulmonic regurgitation. Great Vessels The aortic root is normal size. The inferior vena cava appeared normal and decreased > 50% with respiration (RAP 5-10 mmHg). Effusions There is no pericardial effusion. : СВЕТЛАНА WHEELER Lakshmi
[2020-01-04] MEDS: ALBUTEROL SULFATE HFA (90 MCG/PUFF) 200 PUFF/8.5 GM MDI IH SCH ×5 (04:51→20:15)
[2020-01-04] MEDS: METOPROLOL TARTRATE PF/INJ 5 MG/5 ML SDV IV SCH ×3 (05:34→17:17)
[2020-01-04] MEDS: GUAIFENESIN SYRP 200 MG/10 ML UDC PO PRN ×2 (05:35→22:08)
[2020-01-04] MEDS: APIXABAN 2.5 MG TABLET PO SCH ×2 (09:17→17:17)
[2020-01-04] MEDS: FAMOTIDINE 20 MG TABLET PO SCH (09:17)
--- NOTE | 2020-01-04 09:57 | RADIOLOGY REPORT (SQ) ---
EXAM DESCRIPTION: CHEST 2 VIEWS IMAGES COMPLETED DATE/TIME: 01/04/2020 9:47 am REASON FOR STUDY: Persistent Pumonary infiltrates COMPARISON: 12/30/2019 NUMBER OF VIEWS: Two view TECHNIQUE: Frontal and lateral radiographic images of the chest acquired. LIMITATIONS: None. FINDINGS: LUNGS AND PLEURA: Stable appearance. Persistent diffuse bilateral alveolar infiltrates. Small effusions left greater than right. MEDIASTINUM AND HILAR STRUCTURES: Stable heart size and mediastinal structures. HEART AND VASCULAR STRUCTURES: Stable appearance. BONES: No acute findings. HARDWARE: Dialysis catheter remains in place. OTHER: No other significant finding. IMPRESSION: STABLE APPEARANCE OF THE CHEST. TECHNICAL DOCUMENTATION: JOB ID: [id number] 2010 [employer]- All Rights Reserved Reading location - IP/workstation name: [email or web address]
[2020-01-04] MEDS: ACETAMINOPHEN 325 MG TABLET PO PRN (11:09)
--- NOTE | 2020-01-04 20:54 | PDOC PROGRESS REPORT ---
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 The chest x-ray demonstrated stable appearance persistent diffuse bilateral alveolar infi ltrate. 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 he came back to us, transfer to [facility] readmitted back again to the hospital with pneumonia initially suspected for COVID, COVID PCR was negative now on the floor sputum positive for Klebsiella pneumonia on IV antibiotic, 2D echo was done demonstrated vegetation in the aortic valve tricuspid valve, previously it was mitral valve endocarditis, NEWTON is ordered, yet to be done.Clinically patient seem to be stable but he continues to cough he has a background right kidney mass Suspicious for malignant tumor.that is yet to be managed because of persistent ongoing infection Reason For Visit: ACUTE RESPIRATORY FAILURE DUE TO HYPOXIA; PROBABLE Physical Exam Vital Signs: Temp Pulse Resp BP Pulse Ox 97.8 F 78 20 104/42 L 96 01/04/20 07:49 01/04/20 14:00 01/04/20 07:49 01/04/20 07:49 01/04/20 07:49 Intake & Output 01/03/20 01/04/20 01/05/20 06:59 06:59 06:59 Intake Total 476 582 Output Total 1 3900 Balance 475 -0868 Weight 88.5 kg 85.2 kg General appearance: PRESENT: no acute distress Eye exam: PRESENT: PERRLA Respiratory exam: PRESENT: other - Mild intermittent wheeze Cardiovascular exam: PRESENT: +S1, +S2, systolic murmur GI/Abdominal exam: PRESENT: soft Neurological exam: PRESENT: alert Results Laboratory Results: 01/03/20 06:00 01/03/20 06:00 12/27/19 18:55 Troponin I 0.093 Impressions: Chest CT 01/02/20 00:00 IMPRESSION: 1. BILATERAL PLEURAL EFFUSIONS. EXTENSIVE DIFFUSE GROUND-GLASS OPACITIES THROUGHOUT BOTH LUNGS MAY BE DUE TO MULTIFOCAL PNEUMONIA AND/OR PULMONARY EDEMA. 2. RIGHT AXILLARY ADENOPATHY APPEARS UNCHANGED. MEDIASTINAL ADENOPATHY IS SLIGHTLY WORSE. Cervical Spine MRI 01/03/20 09:00 IMPRESSION: 1. Changes C2, chronic. This C2 changes may be progressive, however with slightly more marrow edema compared to October. Differential is unchanged and includes tumor and infectious/ inflammatory etiology. 2. C3-4 endplate changes are fairly unchanged. Chest X-Ray 01/04/20 00:00 IMPRESSION: STABLE APPEARANCE OF THE CHEST. Assessment & Plan - Diagnosis (1) Klebsiella pneumoniae pneumonia Qualifiers: Laterality: bilateral Lung location: unspecified part of lung Qualified Code(s): J15.0 - Pneumonia due to Klebsiella pneumoniae Is this a current diagnosis for this admission?: Yes Plan: Continue IV antibiotic (2) End stage renal disease on dialysis Is this a current diagnosis for this admission?: Yes (3) MRSA (methicillin resistant Staphylococcus aureus) septicemia Is this a current diagnosis for this admission?: Yes (4) Chronic atrial fibrillation Is this a current diagnosis for this admission?: Yes (5) Aortic valve vegetation Is this a current diagnosis for this admission?: Yes Plan: Get NEWTON - Time Time Spent with patient: 35 or more minutes Level of Care: IMCU
[2020-01-04] MEDS: SENNOSIDES/DOCUSATE 8.6-50 MG 1 EACH TABLET PO SCH (22:08)
--- NOTE | 2020-01-04 23:51 | PDOC CONSULTATION ---
Consultation-Blank Consultation: consult cancelled for now by .
[2020-01-05] MEDS: ALBUTEROL SULFATE HFA (90 MCG/PUFF) 200 PUFF/8.5 GM MDI IH SCH ×6 (00:45→20:57)
[2020-01-05] MEDS: METOPROLOL TARTRATE PF/INJ 5 MG/5 ML SDV IV SCH ×4 (00:45→17:59)
[2020-01-05] MEDS: ACETAMINOPHEN 325 MG TABLET PO PRN (01:14)
[2020-01-05] MEDS ORDERED: HEPARIN SOD (PORCINE) 1,000 UNIT/ML 10 ML VIAL IV PRN (05:00)
[2020-01-05] MEDS ORDERED: EPOETIN ALFA-EPBX 30,000 UNIT in SYRINGE, DISPOSABLE, 1 EACH IV PRN (05:00)
[2020-01-05] MEDS ORDERED: NORMAL SALINE 1000 ML 1,000 ML IV PRN (05:00)
[2020-01-05 06:03] LABS: ABSOLUTE BASOPHILS # (AUTO) 0.1 10^3/uL (0.0-0.2); ABSOLUTE EOSINOPHILS # (AUTO) 0.5 10^3/uL (0.0-0.6); ABSOLUTE LYMPHOCYTES (AUTO) 1.1 10^3/uL (0.5-4.7); ABSOLUTE NEUT (AUTO) 5.4 10^3/uL (1.7-8.2); ABSOLUTE RETICS # 0.059 10^6/uL (0.028-0.122); BASOPHILS % (AUTO) 0.7 % (0-2); EOSINOPHILS % (AUTO) 5.8 % (0-6); HEMATOCRIT 23.9 % (37.9-51.0); LYMPHOCYTES % (AUTO) 14.2 % (13-45); MEAN CORPUSCULAR HEMOGLOBIN 27.1 pg (27.0-33.4); MEAN CORPUSCULAR HGB CONC 33.1 g/dL (32.0-36.0); MEAN CORPUSCULAR VOLUME 82 fl (80-97); MONOCYTES % (AUTO) 12.4 % (3-13); PLATELET COUNT 254 10^3/uL (150-450); RED BLOOD COUNT 2.92 10^6/uL (4.35-5.55); RED CELL DISTRIBUTION WIDTH 17.2 % (11.5-14.0); RETICULOCYTE COUNT (AUTO) 2.01 % (0.66-2.85); SEGMENTED NEUTROPHILS % (AUTO) 66.9 % (42-78); TOTAL CELLS COUNTED % (AUTO) 100 %
[2020-01-05 06:17] LABS: HEMOGLOBIN 7.9 g/dL (13.5-17.0)
[2020-01-05 06:20] LABS: ANION GAP 14 (5-19); BLOOD UREA NITROGEN 50 mg/dL (7-20); CALCIUM 9.5 mg/dL (8.4-10.2); CARBON DIOXIDE 27 mmol/L (22-30); CHLORIDE 92 mmol/L (98-107); GLUCOSE 103 mg/dL (75-110); IRON(TIBC) 30.8 ug/dL (49-181)
[2020-01-05 07:26] LABS: FOLATE 5.15 ng/mL (>2.76)
[2020-01-05] MEDS: GUAIFENESIN SYRP 200 MG/10 ML UDC PO PRN ×2 (09:46→21:02)
[2020-01-05] MEDS: LEVOFLOXACIN 500 MG/D5W RTU 500 MG/100 ML RTUPB IV SCH (09:46)
[2020-01-05] MEDS: APIXABAN 2.5 MG TABLET PO SCH ×2 (09:46→17:58)
[2020-01-05] MEDS: FAMOTIDINE 20 MG TABLET PO SCH (09:46)
[2020-01-05 14:33] LABS: ARTERIAL BLOOD BASE EXCESS 2.4 mmol/L; ARTERIAL BLOOD H2CO3 0.96 mmol/L (1.05-1.35); ARTERIAL BLOOD HCO3 25.2 mmol/L (20-24); ARTERIAL BLOOD O2 SATURATION 99.9 % (94-98); ARTERIAL BLOOD PH 7.51 (7.35-7.45); ARTERIAL BLOOD PO2 436.9 mmHg (80-100); ARTERIAL BLOOD TOTAL CO2 26.2 mmol/L (23-27)
[2020-01-05 14:35] LABS: ARTERIAL BLOOD FIO2 15L
--- NOTE | 2020-01-05 15:53 | PDOC PROGRESS REPORT ---
Subjective Progress Note for:: 01/05/20 Subjective:: Patient was dialyzed today, he had episode of low oxygen saturation REGIONAL EDUCATION COORDINATOR was activated, patient seen on the fifth floor, there is a question of possible COVID pneumonia, he had coronavirus PCR test on admission that was negative, plan is to retest patient this to be done on the fifth floor presently undergoing dialysis, ICU recommended, declined by groundskeeper supervisor Reason For Visit: ACUTE RESPIRATORY FAILURE DUE TO HYPOXIA; PROBABLE Physical Exam Vital Signs: Temp Pulse Resp BP Pulse Ox 98.1 F 87 18 141/59 H 94 01/05/20 11:57 01/05/20 14:00 01/05/20 11:57 01/05/20 11:57 01/05/20 11:57 Intake & Output 01/04/20 01/05/20 01/06/20 06:59 06:59 06:59 Intake Total 582 1218 780 Output Total 3900 0 Balance -3318 1218 780 Weight 85.2 kg 86.5 kg General appearance: PRESENT: mild distress Eye exam: PRESENT: PERRLA Respiratory exam: PRESENT: rhonchi Cardiovascular exam: PRESENT: +S1, +S2 GI/Abdominal exam: PRESENT: soft Neurological exam: PRESENT: alert Results Laboratory Results: 01/05/20 05:13 01/05/20 05:13 01/05/20 01/05/20 01/05/20 05:13 05:13 13:20 WBC 8.0 RBC 2.92 L Hgb 7.9 L Hct 23.9 L MCV 82 MCH 27.1 MCHC 33.1 RDW 17.2 H Plt Count 254 Seg Neutrophils % 66.9 Retic Count (auto) 2.01 Carbonic Acid 0.96 L HCO3/H2CO3 Ratio 26:1 ABG pH 7.51 H ABG pCO2 32.0 L ABG pO2 436.9 H ABG HCO3 25.2 H ABG O2 Saturation 99.9 H ABG Base Excess 2.4 FiO2 15L Sodium 132.6 L Potassium 5.0 Chloride 92 L Carbon Dioxide 27 Anion Gap 14 BUN 50 H Creatinine 8.93 H Est GFR ( Amer) 7 L Glucose 103 Calcium 9.5 Iron 30.8 L TIBC 162 L % Saturation 19 Ferritin 461.00 Vitamin B12 658.0 Folate 5.15 12/27/19 18:55 Troponin I 0.093 Impressions: Chest CT 01/02/20 00:00 IMPRESSION: 1. BILATERAL PLEURAL EFFUSIONS. EXTENSIVE DIFFUSE GROUND-GLASS OPACITIES THROUGHOUT BOTH LUNGS MAY BE DUE TO MULTIFOCAL PNEUMONIA AND/OR PULMONARY EDEMA. 2. RIGHT AXILLARY ADENOPATHY APPEARS UNCHANGED. MEDIASTINAL ADENOPATHY IS SLIGHTLY WORSE. Cervical Spine MRI 01/03/20 09:00 IMPRESSION: 1. Changes C2, chronic. This C2 changes may be progressive, however with slightly more marrow edema compared to October. Differential is unchanged and includes tumor and infectious/ inflammatory etiology. 2. C3-4 endplate changes are fairly unchanged. Chest X-Ray 01/04/20 00:00 IMPRESSION: STABLE APPEARANCE OF THE CHEST. Assessment & Plan - Diagnosis (1) Klebsiella pneumoniae pneumonia Qualifiers: Laterality: bilateral Lung location: unspecified part of lung Qualified Code(s): J15.0 - Pneumonia due to Klebsiella pneumoniae Is this a current diagnosis for this admission?: Yes Plan: Continue antibiotic,Transfer to fifth floor for COVID rule out (2) End stage renal disease on dialysis Is this a current diagnosis for this admission?: Yes (3) MRSA (methicillin resistant Staphylococcus aureus) septicemia Is this a current diagnosis for this admission?: Yes (4) Chronic atrial fibrillation Is this a current diagnosis for this admission?: Yes (5) Aortic valve vegetation Is this a current diagnosis for this admission?: Yes - Time Time Spent with patient: 25-34 minutes Level of Care: IMCU
[2020-01-05] MEDS: GUAIFENESIN 600 MG TABLET.SA PO SCH ×2 (17:58→21:03)
--- NOTE | 2020-01-05 20:14 | PDOC PROGRESS REPORT ---
Subjective Progress Note for:: 01/05/20 Subjective:: I am seeing the patient during dialysis this afternoon. He is noticeably more short of breath than when I last saw him last Friday. He admits that he is more short of breath especially at night. He denies any chest pains. He has cough with scanty phlegm. He is currently on oxygen at 8 L by nasal cannula increase by my dialysis nurse, Laney. I asked to check his oxygen saturation and it is only registering anywhere between 75 to 82%. So I asked Laney to call the respiratory therapist for nonrebreather mask but instead the [employer] MAGISTRATE was activated. They came along with the supervisor mill to evaluate the patient further. Patient finally got into nonrebreather mask. Other portable machines were used to recheck the patient's oxygen saturation which seems to be inaccurate. ABG was obtained. ABG showed a pH of 7.51, PCO2 of 32, PO2 of 436.9 and oxygen saturatio n of 99.9% on nonrebreather mask. Patient was not deemed to be meeting the criteria for ICU transfer. Dialysis was then continued and patient completed a treatment without any further issues. Due to worsening respiratory status, patient will be retested for COVID 19 again and will be transferred to the fifth floor after dialysis. Patient's chest x- ray showed persistent bilateral diffuse airspace opacities which did not improve much even with ultrafiltration. Reason For Visit: ACUTE RESPIRATORY FAILURE DUE TO HYPOXIA; PROBABLE Physical Exam Vital Signs: Temp Pulse Resp BP Pulse Ox 98.1 F 91 18 141/59 H 94 01/05/20 11:57 01/05/20 11:57 01/05/20 11:57 01/05/20 11:57 01/05/20 11:57 Intake & Output 01/04/20 01/05/20 01/06/20 06:59 06:59 06:59 Intake Total 582 1218 Output Total 3900 0 Balance -3318 1218 Weight 85.2 kg 86.5 kg Vitals during dialysis: Blood pressure 169/81, heart rate of 90, blood flow rate of 350 mL/min and dialysate flow rate of 800 mL/min. Exam: General appearance: PRESENT: Mild respiratory distress, cooperative, well- developed, well-nourished Head exam: PRESENT: atraumatic, normocephalic Eye exam: PRESENT: conjunctiva slightly pale, PERRLA. ABSENT: scleral icterus Neck exam: ABSENT: JVD Respiratory exam: PRESENT: Coarse breath sounds. ABSENT: crackles, rales, rhonchi, unlabored, wheezes Cardiovascular exam: PRESENT: Regular rate rhythm -+S1, +S2. Grade 3/6 systolic murmur GI/Abdominal exam: PRESENT: normal bowel sounds, soft. ABSENT: guarding, mass, tenderness Extremities exam: ABSENT: No edema Neurological exam: PRESENT: alert, awake, oriented to person, place and time. Skin exam: PRESENT: dry, warm, Cardiovascular exam: PRESENT: +S1, +S2 Results Laboratory Results: 01/05/20 05:13 01/05/20 05:13 01/05/20 01/05/20 05:13 05:13 WBC 8.0 RBC 2.92 L Hgb 7.9 L Hct 23.9 L MCV 82 MCH 27.1 MCHC 33.1 RDW 17.2 H Plt Count 254 Seg Neutrophils % 66.9 Retic Count (auto) 2.01 Sodium 132.6 L Potassium 5.0 Chloride 92 L Carbon Dioxide 27 Anion Gap 14 BUN 50 H Creatinine 8.93 H Est GFR ( Amer) 7 L Glucose 103 Calcium 9.5 Iron 30.8 L TIBC 162 L % Saturation 19 Ferritin 461.00 Vitamin B12 658.0 Folate 5.15 12/27/19 18:55 Troponin I 0.093 Impressions: Chest CT 01/02/20 00:00 IMPRESSION: 1. BILATERAL PLEURAL EFFUSIONS. EXTENSIVE DIFFUSE GROUND-GLASS OPACITIES THROUGHOUT BOTH LUNGS MAY BE DUE TO MULTIFOCAL PNEUMONIA AND/OR PULMONARY EDEMA. 2. RIGHT AXILLARY ADENOPATHY APPEARS UNCHANGED. MEDIASTINAL ADENOPATHY IS SLIGHTLY WORSE. Cervical Spine MRI 01/03/20 09:00 IMPRESSION: 1. Changes C2, chronic. This C2 changes may be progressive, however with slightly more marrow edema compared to October. Differential is unchanged and includes tumor and infectious/ inflammatory etiology. 2. C3-4 endplate changes are fairly unchanged. Chest X-Ray 01/04/20 00:00 IMPRESSION: STABLE APPEARANCE OF THE CHEST. Assessment & Plan - Diagnosis (1) End-stage renal disease on hemodialysis Is this a current diagnosis for this admission?: Yes Plan: We will do dialysis today for 3 hours, using the patient's PermCath, with 2 potassium bath, blood flow rate of 350 mL per minute, dialysate flow rate of 800 mL per minute, ultrafiltration 2.5 to 3 L as tolerated, no heparin and Retacrit with 30,000 units during dialysis intravenously. Patient is very closely monitored throughout dialysis treatment. (2) Klebsiella pneumoniae pneumonia Qualifiers: Laterality: bilateral Lung location: unspecified part of lung Qualified Code(s): J15.0 - Pneumonia due to Klebsiella pneumoniae Is this a current diagnosis for this admission?: Yes Plan: Currently on IV Levaquin. COVID-19 negative. I asked the lab if we can do COVID-19 antibodies but as of this time the lab is not performing it nor is it being sent out to any in lab so it cannot be done. Chest x-ray remains unchanged despite. Due to persistent reappearance and seemingly worsening respiratory status, Dr. Hannon finally decided to retest the patient for COVID-19. (3) Anemia in chronic kidney disease (CKD) Qualifiers: Chronic kidney disease stage: on chronic dialysis Qualified Code(s): N18.6 - End stage renal disease; D63.1 - Anemia in chronic kidney disease; Z99.2 - Dependence on renal dialysis Is this a current diagnosis for this admission?: Yes Plan: Retacrit given on dialysis. (4) Hyponatremia Is this a current diagnosis for this admission?: Yes (5) Bacteremia due to methicillin resistant Staphylococcus aureus Is this a current diagnosis for this admission?: Yes Plan: On IV daptomycin until January 11, 2020 for a total of 8 weeks. (6) Aortic valve vegetation Is this a current diagnosis for this admission?: Yes Plan: This is a new finding on more recent echocardiogram which indicates again aortic valve endocarditis. Dr. stinson was consulted infectious disease for recommendations regarding antibiotic management since the patient has been tr eated almost completely with daptomycin for 8 weeks until next week and previous to that was also treated with vancomycin for about 4 weeks. (7) Endocarditis of mitral valve Is this a current diagnosis for this admission?: Yes Plan: Repeat echocardiogram showed that the vegetation on the mitral valve is not as much. (8) Acute osteomyelitis of spine Is this a current diagnosis for this admission?: Yes Plan: Complication of MRSA bacteremia. - Time Time with patient: 15-25 minutes
[2020-01-05] MEDS: SENNOSIDES/DOCUSATE 8.6-50 MG 1 EACH TABLET PO SCH (21:02)
[2020-01-05 22:49] LABS: A TYPE INFLUENZA AG NEGATIVE (NEGATIVE); B INFLUENZA AG NEGATIVE (NEGATIVE)
[2020-01-06] MEDS: METOPROLOL TARTRATE PF/INJ 5 MG/5 ML SDV IV SCH ×4 (00:46→18:04)
[2020-01-06] MEDS: ALBUTEROL SULFATE HFA (90 MCG/PUFF) 200 PUFF/8.5 GM MDI IH SCH ×6 (00:47→21:47)
--- NOTE | 2020-01-06 09:07 | Progress Note ---
Provider Note Provider Note: [facility] Telephone Advice Consultation Chart has been reviewed. This patient is a 58-year-old man with ESRD on HD who was previously admitted on 10/10 due to low back/flank pain. He was found with a large renal mass and a lytic lesion in L1. He has follow up with oncology. He had MRSA bacteremia at that time. His perm cath was removed. He was found with a vegetation in MV valve and also septic arthritis in C1-C2 and C3-C4. He was transferred to [facility] on 11/17 for decompression surgery. He has been on daptomycin with an end date on 01/09/2020. Patient was doing well but he is now presenting respiratory symptoms. Chest imaging was consistent with bilateral groundglass opacities suggestive of atypical infection vs. edema. He has not missed dialysis. He has not had symptoms of aspiration or difficulty swallowing. His inflammation markers have been elevated. SARS-CoV test negative on admission and 01/04. Respiratory culture was positive for Klebsiella pneumoniae. ID consulted for recommendations. Allergies: DRY GAMBRO DIALYZERS Allergy (Unknown, Uncoded 06/22/18 04:07) "BP drop, vomiting" PAPER TAPE Allergy (Uncoded 06/22/18 04:07) Rash Medications: Acetaminophen [Tylenol] 650 mg PO Q6 12/28/19 Albuterol Sulfate [Ventolin 0.083% Neb 2.5 mg/3 ml Ampul] 2.5 mg NEB RTQ8 12/28/19 Amiodarone HCl [Pacerone] 200 mg PO DAILY 12/28/19 Apixaban [Eliquis 2.5 mg Tablet] 2.5 mg PO BID 12/28/19 Calcium Acetate [Phoslo 667 mg Capsule] 1,334 mg PO TID 12/28/19 Cinacalcet HCl [Sensipar 30 mg Tablet] 30 mg PO DAILY 12/28/19 Clonidine HCl [Catapres 0.1 mg Tablet] 0.1 mg PO Q8 12/28/19 Famotidine [Pepcid 20 mg Tablet] 20 mg PO QHS 12/28/19 Ipratropium Stephenson [Atrovent Hfa] 2 puff IH Q8 12/28/19 Lactulose [Cephulac 20 gm/30 ml Syrup UD Cup] 15 ml PO DAILY 12/28/19 Melatonin/Pyridoxine [Melatonin 5 mg Tablet] 1 each PO QHS 12/28/19 Tramadol HCl [Ultram 50 mg Tablet] 50 mg PO Q6HP PRN 12/28/19 Vital Signs: Temp Pulse Resp BP Pulse Ox 98.1 F 91 18 141/59 H 94 01/05/20 11:57 01/05/20 11:57 01/05/20 11:57 01/05/20 11:57 01/05/20 11:57 Intake & Output 01/04/20 01/05/20 01/06/20 06:59 06:59 06:59 Intake Total 582 1218 Output Total 3900 0 Balance -3318 1218 Weight 85.2 kg 86.5 kg Weight/Height Weight 86.5 kg Height 5 ft 7 in Laboratories: 01/05/20 05:13 01/05/20 05:13 MCV 82 fl (80-97) 01/05/20 05:13 MCH 27.1 pg (27.0-33.4) 01/05/20 05:13 MCHC 33.1 g/dL (32.0-36.0) 01/05/20 05:13 RDW 17.2 % (11.5-14.0) H 01/05/20 05:13 Seg Neutrophils % 66.9 % (42-78) 01/05/20 05:13 Retic Count (auto) 2.01 % (0.66-2.85) 01/05/20 05:13 Chloride 92 mmol/L (98-107) L 01/05/20 05:13 Carbon Dioxide 27 mmol/L (22-30) 01/05/20 05:13 Anion Gap 14 (5-19) 01/05/20 05:13 Est GFR ( Amer) 7 (>60) L 01/05/20 05:13 Glucose 103 mg/dL (75-110) 01/05/20 05:13 Calcium 9.5 mg/dL (8.4-10.2) 01/05/20 05:13 Phosphorus 3.2 mg/dL (2.5-4.5) 12/27/19 18:55 Magnesium 1.9 mg/dL (1.6-2.3) 12/27/19 18:55 Iron 30.8 ug/dL (49-181) L 01/05/20 05:13 TIBC 162 ug/dL (250-450) L 01/05/20 05:13 % Saturation 19 % 01/05/20 05:13 Ferritin 461.00 ng/mL (17.9-464.0) 01/05/20 05:13 Total Bilirubin 0.8 mg/dL (0.2-1.3) 01/02/20 16:50 AST 21 U/L (17-59) 01/02/20 16:50 Alkaline Phosphatase 68 U/L (38-126) 01/02/20 16:50 C-Reactive Protein 167.3 mg/L (<10.0) H 12/27/19 18:55 Total Protein 7.7 g/dL (6.3-8.2) 01/02/20 16:50 Albumin 3.3 g/dL (3.5-5.0) L 01/02/20 16:50 Vitamin B12 658.0 pg/mL (239-931) 01/05/20 05:13 Folate 5.15 ng/mL (>2.76) 01/05/20 05:13 12/27/19 18:55 Troponin I 0.093 Microbiology: Blood Culture 12/26 NGTD 01/02 NGTD 01/03 NGTD 01/04 NGTD Sputum culture: 12/27 Klebsiella pneumoniae Blood cultures on previous admission: 2 MRSA 2 MRSA 10/22 Negative 10/27 MRSA 10/28 MRSA (vancomycin KAREN 1) 11/03 MRSA (vancomycin KAREN 2) 11/05 Catheter tip - skin tom 11/06 MRSA (Vancomycin KAREN 2) 11/25 Negative Radiology: Chest CT 01/02/20 00:00 IMPRESSION: 1. BILATERAL PLEURAL EFFUSIONS. EXTENSIVE DIFFUSE GROUND-GLASS OPACITIES THROUGHOUT BOTH LUNGS MAY BE DUE TO MULTIFOCAL PNEUMONIA AND/OR PULMONARY EDEMA. 2. RIGHT AXILLARY ADENOPATHY APPEARS UNCHANGED. MEDIASTINAL ADENOPATHY IS SLIGHTLY WORSE. Cervical Spine MRI 01/03/20 09:00 IMPRESSION: 1. Changes C2, chronic. This C2 changes may be progressive, however with slightly more marrow edema compared to October. Differential is unchanged and includes tumor and infectious/ inflammatory etiology. 2. C3-4 endplate changes are fairly unchanged. Chest X-Ray 01/04/20 00:00 IMPRESSION: STABLE APPEARANCE OF THE CHEST. Assessment and Recommendations: Very complex case of MRSA bacteremia with MV endocarditis and C3-C4 septic arthr itis in the setting of ESRD on HD and right kidney mass suspected malignancy with lytic lesion in L1 now with Klebsiella pneumoniae respiratory infection. He is s/p decompression surgery on 11/17 and has been on daptomycin with EOT 01/09/2020. His respiratory symptoms are likely due to Klebsiella pneumoniae for which he has been on levofloxacin. SARS-CoV-2 test was done again and it was negative. Continue daptomycin for MRSA for now, he has 3 more doses if there is improvement in symptoms. 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 If there is concern of worsening respiratory symptoms despite antibiotics, consider to discontinue daptomycin and treat with vancomycin for the next 3 days (higher KAREN but not resistant to vancomycin). Ceftriaxone would be a better tolerated antibiotic for Klebsiella pneumoniae. Cefazolin with HD is another alternative. A total of 10 days would be recommended. Please call if questions or updates. Marely Hendricks MD [facility] [phone]
[2020-01-06] MEDS: FAMOTIDINE 20 MG TABLET PO SCH (09:42)
[2020-01-06] MEDS: APIXABAN 2.5 MG TABLET PO SCH ×2 (09:42→18:04)
[2020-01-06] MEDS: GUAIFENESIN 600 MG TABLET.SA PO SCH ×2 (09:43→21:46)
--- NOTE | 2020-01-06 10:33 | PDOC PROGRESS REPORT ---
Subjective Progress Note for:: 01/06/20 Subjective:: Patient looks better today. He even tells me that he is breathing better today than yesterday. We were able to take off about 2900 mL of ultrafiltration during dialysis yesterday. He appears to be more comfortable today than yesterday. He said that he coughs once in a while with scanty phlegm. He was sneezing when I saw him in the room. Although his appetite is not that great, he tries to eat. He again tested negative for SARS-CoV-2 PCR test. Reviewed infectious disease consultation with Dr. Bell. Recommendations noted. I was trying to get hold of her because in her note there was no mention of the new aortic valve vegetation which might change her recommendation with regards to antibiotic duration. I left a message for her to call me back. Reason For Visit: ACUTE RESPIRATORY FAILURE DUE TO HYPOXIA; PROBABLE Physical Exam Vital Signs: Temp Pulse Resp BP Pulse Ox 98.6 F 90 32 H 113/51 L 99 01/06/20 07:20 01/06/20 07:20 01/06/20 07:20 01/06/20 07:20 01/06/20 07:20 Intake & Output 01/05/20 01/06/20 01/07/20 06:59 06:59 06:59 Intake Total 1218 2040 Output Total 0 3800 Balance 1218 -1760 Weight 86.5 kg 81.2 kg Exam: General appearance: PRESENT: no acute distress, cooperative, well-developed, well-nourished Head exam: PRESENT: atraumatic, normocephalic Eye exam: PRESENT: conjunctiva pale, PERRLA. ABSENT: scleral icterus Neck exam: ABSENT: JVD Respiratory exam: PRESENT: Coarse breath sounds. ABSENT: crackles, rales, rhonchi, unlabored, wheezes Cardiovascular exam: PRESENT: Regular rate rhythm -+S1, +S2. Grade 3/6 systolic murmur GI/Abdominal exam: PRESENT: normal bowel sounds, soft. ABSENT: guarding, mass, tenderness Extremities exam: ABSENT: No edema Neurological exam: PRESENT: alert, awake, oriented to person, place and time. Skin exam: PRESENT: dry, warm, Cardiovascular exam: PRESENT: +S1, +S2 Results Laboratory Results: 01/05/20 05:13 01/05/20 05:13 01/05/20 13:20 Carbonic Acid 0.96 L HCO3/H2CO3 Ratio 26:1 ABG pH 7.51 H ABG pCO2 32.0 L ABG pO2 436.9 H ABG HCO3 25.2 H ABG O2 Saturation 99.9 H ABG Base Excess 2.4 FiO2 15L 12/27/19 18:55 Troponin I 0.093 Impressions: Chest CT 01/02/20 00:00 IMPRESSION: 1. BILATERAL PLEURAL EFFUSIONS. EXTENSIVE DIFFUSE GROUND-GLASS OPACITIES THROUGHOUT BOTH LUNGS MAY BE DUE TO MULTIFOCAL PNEUMONIA AND/OR PULMONARY EDEMA. 2. RIGHT AXILLARY ADENOPATHY APPEARS UNCHANGED. MEDIASTINAL ADENOPATHY IS SLIGHTLY WORSE. Cervical Spine MRI 01/03/20 09:00 IMPRESSION: 1. Changes C2, chronic. This C2 changes may be progressive, however with slightly more marrow edema compared to October. Differential is unchanged and includes tumor and infectious/ inflammatory etiology. 2. C3-4 endplate changes are fairly unchanged. Chest X-Ray 01/04/20 00:00 IMPRESSION: STABLE APPEARANCE OF THE CHEST. Assessment & Plan - Diagnosis (1) End-stage renal disease on hemodialysis Is this a current diagnosis for this admission?: Yes Plan: Continue hemodialysis support. Next dialysis tomorrow. (2) Klebsiella pneumoniae pneumonia Qualifiers: Laterality: bilateral Lung location: unspecified part of lung Qualified Code(s): J15.0 - Pneumonia due to Klebsiella pneumoniae Is this a current diagnosis for this admission?: Yes Plan: Infectious disease recommends ceftriaxone. So we will switch the Levaquin to ceftriaxone. (3) Bacteremia due to methicillin resistant Staphylococcus aureus Is this a current diagnosis for this admission?: Yes Plan: Patient has received daptomycin until January 02. Unfortunately it fell off the NOV and it was not given yesterday. Patient is supposed to be done with his daptomycin for an 8-week course of antibiotics on January 10. Infectious disease recommendation was to go back on vancomycin. 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 So will restart the patient on vancomycin. Duration needs to be clarified with infectious disease specialist since the patient has new aortic valve vegetation. (4) Anemia in chronic kidney disease (CKD) Qualifiers: Chronic kidney disease stage: on chronic dialysis Qualified Code(s): N18.6 - End stage renal disease; D63.1 - Anemia in chronic kidney disease; Z99.2 - Dependence on renal dialysis Is this a current diagnosis for this admission?: Yes Plan: Retacrit during dialysis treatment. (5) Aortic valve vegetation Is this a current diagnosis for this admission?: Yes Plan: This is a new finding on more recent echocardiogram which indicates again aortic valve endocarditis. (6) Endocarditis of mitral valve Is this a current diagnosis for this admission?: Yes Plan: Repeat echocardiogram showed that the vegetation on the mitral valve is not as much. (7) Hyponatremia Is this a current diagnosis for this admission?: Yes (8) Acute osteomyelitis of spine Is this a current diagnosis for this admission?: Yes Plan: Complication of MRSA bacteremia. - Notes Notes: Discussed treatment plan with Dr. Hannon who agreed with above. Will wait for callback from infectious disease specialist, Dr. Bell today. - Time Time with patient: Greater than 35 minutes
[2020-01-06] MEDS ORDERED: VANCOMYCIN HCL 1,250 MG in DEXTROSE 5%-WATER 250 ML IV ONE (11:30)
--- NOTE | 2020-01-06 11:54 | Progress Note ---
Provider Note Provider Note: Addendum to my progress notes earlier dictated. I called Dr. Bell, infectious disease specialist at [phone] to discuss the patient's case again. I informed her that the patient had an echocardiogram done on December 30 showing a new aortic vegetation as well as mild tricuspid vegetation that was not there on initial NEWTON done on October 20, 2019 when the mitral valve endocarditis was diagnosed. She stated that since the patient is not bacteremic having negative blood cultures on January 02 and , it may not be an infectious vegetation. She stated that it could be related to possible malignancy as the patient have this renal mass which were not able to do any further diagnostics due to concurrent infection. Dr. Bell gave 2 options to deal with this which is to do a NEWTON, continue vancomycin until January 10 which I started today to replace the daptomycin and have the patient be evaluated by cardiac surgery for possible valve replacement. She also recommended repeating blood culture after January 10 when the patient is no longer on antibiotics. The other option that she gave is to treat empirically again with antibiotics again but she favors the first option. So today I initiated the patient on vancomycin to replace the daptomycin and also initiated a ceftriaxone to replace the Levaquin for the Klebsiella pneumonia. I called Dr. Hannon to relate discussion above. He ordered NEWTON but unfortunately because of the COVID pandemic this is considered a non-priority procedure at this time and will not be done. Dr. Hannon also ordered the fungal culture culture and throat culture which are both pending. Other consideration is fungemia. So for now we will continue the antibiotics as stated above. Follow fungal cultures. Repeat blood cultures after the course of antibiotics next week and plan accordingly at that time. Dr. Benson will be coming in for nephrology service starting tomorrow until middle of next week.
[2020-01-06] MEDS: CEFTRIAXONE 2 GM/D5W RTU 2 GM/50 ML RTUPB IV SCH (12:15)
--- NOTE | 2020-01-06 19:51 | PDOC PROGRESS REPORT ---
Subjective Progress Note for:: 01/06/20 Subjective:: Patient seen by the bedside, the infectious disease note was reviewed, case was also discussed with Dr. Patyon nephrology, He had second COVID test done also negative for coronavirus unlikely to have coronavirus he has had 2- negative test done. The ID specialist is recommending to change antibiotic to vancomycin because daptomycin could cause eosinophilic pneumonitis ,Dr. Zhong, cardiology also called and case was discussed with him, he spoke with Dr. Curran is agreeable for NEWTON next week. He has a huge vegetation in the aortic valve which is new, ID felt this could be probably noninfective because of negative blood culture. 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 Patient condition is very complicate d Reason For Visit: ACUTE RESPIRATORY FAILURE DUE TO HYPOXIA; PROBABLE Physical Exam Vital Signs: Temp Pulse Resp BP Pulse Ox 98.0 F 93 18 125/58 L 99 01/06/20 17:10 01/06/20 17:10 01/06/20 17:10 01/06/20 17:10 01/06/20 17:10 Intake & Output 01/05/20 01/06/20 01/07/20 06:59 06:59 06:59 Intake Total 1218 2040 290 Output Total 0 3800 Balance 1218 -1760 290 Weight 86.5 kg 81.2 kg 81.2 kg General appearance: PRESENT: no acute distress Eye exam: PRESENT: PERRLA Respiratory exam: PRESENT: clear to auscultation dave Cardiovascular exam: PRESENT: +S1, +S2, systolic murmur Neurological exam: PRESENT: alert Results Laboratory Results: 01/05/20 05:13 01/05/20 05:13 12/27/19 18:55 Troponin I 0.093 Impressions: Chest CT 01/02/20 00:00 IMPRESSION: 1. BILATERAL PLEURAL EFFUSIONS. EXTENSIVE DIFFUSE GROUND-GLASS OPACITIES THROUGHOUT BOTH LUNGS MAY BE DUE TO MULTIFOCAL PNEUMONIA AND/OR PULMONARY EDEMA. 2. RIGHT AXILLARY ADENOPATHY APPEARS UNCHANGED. MEDIASTINAL ADENOPATHY IS SLIGHTLY WORSE. Cervical Spine MRI 01/03/20 09:00 IMPRESSION: 1. Changes C2, chronic. This C2 changes may be progressive, however with slightly more marrow edema compared to October. Differential is unchanged and includes tumor and infectious/ inflammatory etiology. 2. C3-4 endplate changes are fairly unchanged. Chest X-Ray 01/04/20 00:00 IMPRESSION: STABLE APPEARANCE OF THE CHEST. Assessment & Plan - Diagnosis (1) Klebsiella pneumoniae pneumonia Qualifiers: Laterality: bilateral Lung location: unspecified part of lung Qualified Code(s): J15.0 - Pneumonia due to Klebsiella pneumoniae Is this a current diagnosis for this admission?: Yes Plan: According to ID recommendation DC Levaquin start ceftriaxone (2) End stage renal disease on dialysis Is this a current diagnosis for this admission?: Yes (3) MRSA (methicillin resistant Staphylococcus aureus) septicemia Is this a current diagnosis for this admission?: Yes (4) Chronic atrial fibrillation Is this a current diagnosis for this admission?: Yes (5) Aortic valve vegetation Is this a current diagnosis for this admission?: Yes (6) Renal mass, right Is this a current diagnosis for this admission?: Yes - Time Time Spent with patient: 25-34 minutes - Plan Summary Plan Summary: Patient antibiotic is changed to vancomycin and also ceftriaxone
[2020-01-06] MEDS: SENNOSIDES/DOCUSATE 8.6-50 MG 1 EACH TABLET PO SCH (21:46)
[2020-01-07] MEDS: ALBUTEROL SULFATE HFA (90 MCG/PUFF) 200 PUFF/8.5 GM MDI IH SCH ×7 (00:34→23:00)
[2020-01-07] MEDS: METOPROLOL TARTRATE PF/INJ 5 MG/5 ML SDV IV SCH ×5 (00:34→23:00)
[2020-01-07] MEDS: ACETAMINOPHEN 325 MG TABLET PO PRN ×2 (01:33→11:11)
[2020-01-07] MEDS ORDERED: EPOETIN ALFA-EPBX 30,000 UNIT in SYRINGE, DISPOSABLE, 1 EACH IV PRN (05:00)
[2020-01-07] MEDS ORDERED: HEPARIN SOD (PORCINE) 1,000 UNIT/ML 10 ML VIAL IV PRN (05:00)
[2020-01-07] MEDS ORDERED: NORMAL SALINE 1000 ML 1,000 ML IV PRN (05:00)
[2020-01-07 06:49] LABS: ANION GAP 16 (5-19); BLOOD UREA NITROGEN 50 mg/dL (7-20); CALCIUM 9.4 mg/dL (8.4-10.2); CARBON DIOXIDE 23 mmol/L (22-30); CHLORIDE 96 mmol/L (98-107); GLUCOSE 92 mg/dL (75-110); POTASSIUM 5.2 mmol/L (3.6-5.0)
[2020-01-07 06:54] LABS: ABSOLUTE BASOPHILS # (AUTO) 0.1 10^3/uL (0.0-0.2); ABSOLUTE EOSINOPHILS # (AUTO) 0.8 10^3/uL (0.0-0.6); ABSOLUTE LYMPHOCYTES (AUTO) 1.3 10^3/uL (0.5-4.7); ABSOLUTE MONOCYTES (AUTO) 0.7 10^3/uL (0.1-1.4); ABSOLUTE NEUT (AUTO) 5.1 10^3/uL (1.7-8.2); BASOPHILS % (AUTO) 1.3 % (0-2); EOSINOPHILS % (AUTO) 9.6 % (0-6); HEMATOCRIT 23.9 % (37.9-51.0); HEMOGLOBIN 7.8 g/dL (13.5-17.0); LYMPHOCYTES % (AUTO) 16.2 % (13-45); MEAN CORPUSCULAR HEMOGLOBIN 26.3 pg (27.0-33.4); MEAN CORPUSCULAR HGB CONC 32.4 g/dL (32.0-36.0); MEAN CORPUSCULAR VOLUME 81 fl (80-97); MONOCYTES % (AUTO) 8.9 % (3-13); PLATELET COUNT 285 10^3/uL (150-450); RED BLOOD COUNT 2.95 10^6/uL (4.35-5.55); RED CELL DISTRIBUTION WIDTH 17.3 % (11.5-14.0); TOTAL CELLS COUNTED % (AUTO) 100 %
--- NOTE | 2020-01-07 09:22 | Progress Note ---
Provider Note Provider Note: [facility] Telephone Advice Follow Up Chart has been reviewed. This patient is a 59-year-old man with ESRD on HD who was previously admitted on 10/10 due to low back/flank pain. He was found with a large renal mass and a lytic lesion in L1. He has follow up with oncology. He had MRSA bacteremia at that time. His perm cath was removed. He was found with a vegetation in MV valve and also septic arthritis in C1-C2 and C3-C4. He was transferred to [facility] on 11/17 for decompression surgery. He was on daptomycin with an end date on 01/11/2020. Patient was doing well but he is now presenting respiratory symptoms. Chest imaging was consistent with bilateral groundglass opacities suggestive of atypical infection vs. edema. He has not missed dialysis. He has not had symptoms of aspiration or difficulty swallowing. His inflammation markers have been elevated. SARS-CoV test negative on admission and 01/04. Respiratory culture was positive for Klebsiella pneumoniae for which he was on levofloxacin changed to ceftriaxone yesterday. His previous NEWTON was from 10/21 and it demonstrated a vegetation in MV. He was bacteremic for at least 2 weeks after that study was done. There were negative blood cultures documented on 11/25 when he returned from [facility]. A TTE on 12/30 demonstrated a new vegetation in aortic valve that measures 1.3 x 1.4. Patient is afebrile, HD stable, blood cultures negative from admission. Vital Signs: Temp Pulse Resp BP Pulse Ox 97.2 F 90 18 137/69 H 97 01/07/20 07:42 01/07/20 07:42 01/07/20 07:42 01/07/20 07:42 01/07/20 07:42 Intake & Output 01/06/20 01/07/20 01/08/20 06:59 06:59 06:59 Intake Total 2040 530 Output Total 3800 Balance -1760 530 Weight 81.2 kg 82.6 kg Weight/Height Weight 82.6 kg Height 5 ft 7 in Laboratories: 01/07/20 04:50 01/07/20 04:50 MCV 81 fl (80-97) 01/07/20 04:50 MCH 26.3 pg (27.0-33.4) L 01/07/20 04:50 MCHC 32.4 g/dL (32.0-36.0) 01/07/20 04:50 RDW 17.3 % (11.5-14.0) H 01/07/20 04:50 Seg Neutrophils % 64.0 % (42-78) 01/07/20 04:50 Retic Count (auto) 2.01 % (0.66-2.85) 01/05/20 05:13 Carbonic Acid 0.96 mmol/L (1.05-1.35) L 01/05/20 13:20 HCO3/H2CO3 Ratio 26:1 01/05/20 13:20 ABG pH 7.51 (7.35-7.45) H 01/05/20 13:20 ABG pCO2 32.0 mmHg (35-45) L 01/05/20 13:20 ABG pO2 436.9 mmHg (80-100) H 01/05/20 13:20 ABG HCO3 25.2 mmol/L (20-24) H 01/05/20 13:20 ABG O2 Saturation 99.9 % (94-98) H 01/05/20 13:20 ABG Base Excess 2.4 mmol/L 01/05/20 13:20 FiO2 15L 01/05/20 13:20 Chloride 96 mmol/L (98-107) L 01/07/20 04:50 Carbon Dioxide 23 mmol/L (22-30) 01/07/20 04:50 Anion Gap 16 (5-19) 01/07/20 04:50 Est GFR ( Amer) 8 (>60) L 01/07/20 04:50 Glucose 92 mg/dL (75-110) 01/07/20 04:50 Calcium 9.4 mg/dL (8.4-10.2) 01/07/20 04:50 Phosphorus 3.2 mg/dL (2.5-4.5) 12/27/19 18:55 Magnesium 1.9 mg/dL (1.6-2.3) 12/27/19 18:55 Iron 30.8 ug/dL (49-181) L 01/05/20 05:13 TIBC 162 ug/dL (250-450) L 01/05/20 05:13 % Saturation 19 % 01/05/20 05:13 Ferritin 461.00 ng/mL (17.9-464.0) 01/05/20 05:13 Total Bilirubin 0.8 mg/dL (0.2-1.3) 01/02/20 16:50 AST 21 U/L (17-59) 01/02/20 16:50 Alkaline Phosphatase 68 U/L (38-126) 01/02/20 16:50 C-Reactive Protein 167.3 mg/L (<10.0) H 12/27/19 18:55 Total Protein 7.7 g/dL (6.3-8.2) 01/02/20 16:50 Albumin 3.3 g/dL (3.5-5.0) L 01/02/20 16:50 Vitamin B12 658.0 pg/mL (239-931) 01/05/20 05:13 Folate 5.15 ng/mL (>2.76) 01/05/20 05:13 12/27/19 18:55 Troponin I 0.093 Microbiology: Blood Culture 12/26 NGTD 01/02 NGTD 01/03 NGTD 01/04 NGTD Sputum culture: 12/27 Klebsiella pneumoniae Blood cultures on previous admission: 10/13 MRSA 10/17 MRSA 10/22 Negative 10/27 MRSA 10/28 MRSA (vancomycin KAREN 1) 11/03 MRSA (vancomycin KAREN 2) 11/05 Catheter tip - skin tom 11/06 MRSA (Vancomycin KAREN 2) 11/25 Negative Radiology: TTE 12/31/2019 Moderate MR AoV vegetation 1.[address] 01/02/20 00:00 IMPRESSION: 1. BILATERAL PLEURAL EFFUSIONS. EXTENSIVE DIFFUSE GROUND-GLASS OPACITIES THROUGHOUT BOTH LUNGS MAY BE DUE TO MULTIFOCAL PNEUMONIA AND/OR PULMONARY EDEMA. 2. RIGHT AXILLARY ADENOPATHY APPEARS UNCHANGED. MEDIASTINAL ADENOPATHY IS SLIGHTLY WORSE. Cervical Spine MRI 01/03/20 09:00 IMPRESSION: 1. Changes C2, chronic. This C2 changes may be progressive, however with slightly more marrow edema compared to October. Differential is unchanged and includes tumor and infectious/ inflammatory etiology. 2. C3-4 endplate changes are fairly unchanged. Chest X-Ray 01/04/20 00:00 IMPRESSION: STABLE APPEARANCE OF THE CHEST. Assessment and Recommendations: Very complex case of MRSA bacteremia with MV endocarditis and C3-C4 septic arthritis in the setting of ESRD on HD and right kidney mass suspected malignancy with lytic lesion in L1 now with Klebsiella pneumoniae respiratory infection and new AoV vegetation. It is interesting as he has been on daptom ycin for MRSA MV endocarditis documented on 10/21. He was bacteremic for over 2 weeks after that NEWTON. There are 3 possible scenarios that can explain this new AoV vegetation. The first would be that he developed this vegetation while he was bacteremic in early November but this was not documented as he didn't have a new echo at that time, and the vegetation is sterile now that he has been on daptomycin and his blood cultures have been negative. The second would be culture negative endocarditis that could be caused by very rare bacterial infections as Bartonella jewell, Brucella or Coxiella, Tropheryma whipplei or Legionella are other rare causes of culture negative endocarditis. This is less likely as he has not been exposed to these on the last few weeks. The third scenario may be non bacterial endocarditis (marantic endocarditis) in the setting of possible active malignancy and ESRD on HD. It would be extremely rare to develop a bacterial endocarditis while on antibiotics. If this was bacterial, it has to be with a bacteria not covered by daptomycin and therefore cultures should be positive for that new infection causing the new vegetation. Will recommend a NEWTON and cardiac surgery evaluation. He has 4 more days of antibiotic therapy for previous infection. The best approach would be to complete the previous antibiotic course on 01/10 and hold antibiotics to repeat multiple sets of blood cultures off antibiotics to identify the pathogen causing this infection. Other work up that can be done include serologies for Bartonella spp (IgM adn IgG), Brucella and Coxiella IgM and IgG, Legionella urine antigen. Will waith for NEWTON and cardiac surgery's impression to give further recommendations. He might benefit from transfer to a terciary center with multidisciplinary approach to address this. Will follow. Marely Sheldon MD [facility] [phone]
[2020-01-07] MEDS: FAMOTIDINE 20 MG TABLET PO SCH (11:12)
[2020-01-07] MEDS: APIXABAN 2.5 MG TABLET PO SCH ×2 (11:12→17:49)
[2020-01-07] MEDS: GUAIFENESIN 600 MG TABLET.SA PO SCH ×2 (11:12→21:33)
--- NOTE | 2020-01-07 12:39 | PDOC PROGRESS REPORT ---
Subjective Progress Note for:: 01/07/20 Reason For Visit: Patient seen on dialysis today. He generally feels better as long as he is resting. However he notes he continues to have shortness of breath with minimal exertion without any history of chest pain. Reviewed his most recent echocardiogram done which shows that besides the initial mitral valve endocarditis he also has vegetations now appearing on the aortic valve as well as the tricuspid valve. His blood cultures in the last couple of weeks has remained negative for MRSA and he continues to get daptomycin. He is in the process of getting a NEWTON. No complaints of any fever or chills. Labs and medications were reviewed. Dialysis orders were reviewed with the treating dialysis nurse. Physical Exam Vital Signs: Temp Pulse Resp BP Pulse Ox 97.2 F 90 18 137/69 H 97 01/07/20 07:42 01/07/20 07:42 01/07/20 07:42 01/07/20 07:42 01/07/20 07:42 Intake & Output 01/06/20 01/07/20 01/08/20 06:59 06:59 06:59 Intake Total 2040 530 Output Total 3800 Balance -1760 530 Weight 81.2 kg 82.6 kg General appearance: PRESENT: no acute distress Respiratory exam: PRESENT: clear to auscultation dave, decreased breath sounds. ABSENT: crackles Cardiovascular exam: PRESENT: +S1, +S2, systolic murmur GI/Abdominal exam: PRESENT: normal bowel sounds, soft. ABSENT: organomegaly, tenderness Extremities exam: ABSENT: pedal edema Neurological exam: PRESENT: alert, awake, oriented to person, oriented to place Psychiatric exam: PRESENT: appropriate affect Results Laboratory Results: 01/07/20 04:50 01/07/20 04:50 01/07/20 01/07/20 04:50 04:50 WBC 8.0 RBC 2.95 L Hgb 7.8 L Hct 23.9 L MCV 81 MCH 26.3 L MCHC 32.4 RDW 17.3 H Plt Count 285 Seg Neutrophils % 64.0 Sodium 134.7 L Potassium 5.2 H Chloride 96 L Carbon Dioxide 23 Anion Gap 16 BUN 50 H Creatinine 8.70 H Est GFR ( Amer) 8 L Glucose 92 Calcium 9.4 12/28/19 22:55 Sputum Viral Culture - Final 12/27/19 18:55 Troponin I 0.093 Impressions: Chest CT 01/02/20 00:00 IMPRESSION: 1. BILATERAL PLEURAL EFFUSIONS. EXTENSIVE DIFFUSE GROUND-GLASS OPACITIES THROUGHOUT BOTH LUNGS MAY BE DUE TO MULTIFOCAL PNEUMONIA AND/OR PULMONARY EDEMA. 2. RIGHT AXILLARY ADENOPATHY APPEARS UNCHANGED. MEDIASTINAL ADENOPATHY IS SLIGHTLY WORSE. Cervical Spine MRI 01/03/20 09:00 IMPRESSION: 1. Changes C2, chronic. This C2 changes may be progressive, however with slightly more marrow edema compared to October. Differential is unchanged and includes tumor and infectious/ inflammatory etiology. 2. C3-4 endplate changes are fairly unchanged. Chest X-Ray 01/04/20 00:00 IMPRESSION: STABLE APPEARANCE OF THE CHEST. Assessment & Plan - Diagnosis (1) End-stage renal disease on hemodialysis Is this a current diagnosis for this admission?: Yes Plan: Patient currently undergoing dialysis. Vital signs are stable. Plan to remove 1-2 L as tolerated. Dialysis being supervised. Dialysis orders reviewed the treating dialysis nurse. 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 Most recent echo now shows involvement of the aortic and tricuspid valve as well. Patient is scheduled to have a NEWTON to confirm and delineate the above. Patient gets very easily short of breath with minimal exertion. High possibility of aortic vegetation given its size to produce aortic stenosis. Discussed with Dr. Dumont/cardiology. (3) Suspected COVID-19 virus infection Is this a current diagnosis for this admission?: Yes Plan: Serologies negative. Chest x-ray deemed to be secondary to Klebsiella pneumonia. However since now patient has been found to have endocarditis in also involving tricuspid valve besides aortic and mitral valve one could also consider septic embolization. (4) Acute respiratory failure with hypoxia Is this a current diagnosis for this admission?: Yes Plan: Patient still gets into having difficulty in breathing with minimal exertion. Recent echocardiogram shows now that there is endocarditis lesions besides mitral valve including aortic valve and tricuspid valve. One has to consider of aortic stenosis given the size of vegetations on the TTE as a possibility here. Patient scheduled to have NEWTON. Discussed with Dr. Dumont/cardiology for possible evaluation following results of NEWTON to be evaluated by cardiothoracic surgery. (5) Bacteremia due to methicillin resistant Staphylococcus aureus Is this a current diagnosis for this admission?: Yes Plan: Had MRSA bacterial endocarditis/cervical spine osteomyelitis. Continue on daptomycin till beginning of January. (6) Osteomyelitis Qualifiers: Osteomyelitis type: subacute Osteomyelitis location: unspecified site Qualified Code(s): M86.20 - Subacute osteomyelitis, unspecified site Is this a current diagnosis for this admission?: Yes Plan: As mentioned earlier. (7) Hypertension Plan: Stable. 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
[2020-01-07] MEDS: CEFTRIAXONE 2 GM/D5W RTU 2 GM/50 ML RTUPB IV SCH (12:43)
[2020-01-07] MEDS: DIPHENHYDRAMINE HCL 25 MG CAPSULE PO PRN ×2 (12:58→18:41)
[2020-01-07] MEDS ORDERED: VANCOMYCIN HCL 750 MG in DEXTROSE 5%-WATER 250 ML IV SCH ×4 (18:00)
--- NOTE | 2020-01-07 18:51 | PDOC PROGRESS REPORT ---
Subjective Progress Note for:: 01/07/20 Subjective:: Patient was seen at the bedside, I reviewed the ID notes, ID recommend possible transfer to tertiary care, CT surgery is available, I am chief juvenile probation officer this weekend I will try and call [facility] this weekend and ask for transfer of this patient. He has very large impressive vegetation on the aortic valve which was not present previously, he was initially diagnosed with mitral valve endocarditis, is scheduled for NEWTON next week Reason For Visit: ACUTE RESPIRATORY FAILURE DUE TO HYPOXIA; PROBABLE Physical Exam Vital Signs: Temp Pulse Resp BP Pulse Ox 98.2 F 92 17 113/53 L 100 01/07/20 16:03 01/07/20 16:03 01/07/20 16:03 01/07/20 16:03 01/07/20 16:12 Intake & Output 01/06/20 01/07/20 01/08/20 06:59 06:59 06:59 Intake Total 2040 530 650 Output Total 3800 1900 Balance -1760 530 -1250 Weight 81.2 kg 82.6 kg General appearance: PRESENT: no acute distress Eye exam: PRESENT: PERRLA Respiratory exam: PRESENT: clear to auscultation dave Cardiovascular exam: PRESENT: +S1, +S2 GI/Abdominal exam: PRESENT: soft Neurological exam: PRESENT: alert Results Laboratory Results: 01/07/20 04:50 01/07/20 04:50 01/07/20 01/07/20 04:50 04:50 WBC 8.0 RBC 2.95 L Hgb 7.8 L Hct 23.9 L MCV 81 MCH 26.3 L MCHC 32.4 RDW 17.3 H Plt Count 285 Seg Neutrophils % 64.0 Sodium 134.7 L Potassium 5.2 H Chloride 96 L Carbon Dioxide 23 Anion Gap 16 BUN 50 H Creatinine 8.70 H Est GFR ( Amer) 8 L Glucose 92 Calcium 9.4 12/28/19 22:55 Sputum Viral Culture - Final 12/27/19 18:55 Troponin I 0.093 Impressions: Chest CT 01/02/20 00:00 IMPRESSION: 1. BILATERAL PLEURAL EFFUSIONS. EXTENSIVE DIFFUSE GROUND-GLASS OPACITIES THROUGHOUT BOTH LUNGS MAY BE DUE TO MULTIFOCAL PNEUMONIA AND/OR PULMONARY EDEMA. 2. RIGHT AXILLARY ADENOPATHY APPEARS UNCHANGED. MEDIASTINAL ADENOPATHY IS SLIGHTLY WORSE. Cervical Spine MRI 01/03/20 09:00 IMPRESSION: 1. Changes C2, chronic. This C2 changes may be progressive, however with slightly more marrow edema compared to October. Differential is unchanged and includes tumor and infectious/ inflammatory etiology. 2. C3-4 endplate changes are fairly unchanged. Chest X-Ray 01/04/20 00:00 IMPRESSION: STABLE APPEARANCE OF THE CHEST. Assessment & Plan - Diagnosis (1) Klebsiella pneumoniae pneumonia Qualifiers: Laterality: bilateral Lung location: unspecified part of lung Qualified Code(s): J15.0 - Pneumonia due to Klebsiella pneumoniae Is this a current diagnosis for this admission?: Yes Plan: Continue IV antibiotic (2) End stage renal disease on dialysis Is this a current diagnosis for this admission?: Yes (3) MRSA (methicillin resistant Staphylococcus aureus) septicemia Is this a current diagnosis for this admission?: Yes (4) Chronic atrial fibrillation Is this a current diagnosis for this admission?: Yes (5) Aortic valve vegetation Is this a current diagnosis for this admission?: Yes (6) Renal mass, right Is this a current diagnosis for this admission?: Yes - Time Time Spent with patient: 25-34 minutes Level of Care: IMCU
--- NOTE | 2020-01-07 21:07 | PDOC CONSULTATION ---
Consultation-Blank Consultation: CARDIOLOGY NOTE: Patient seen on 01/07/2020. Patient well-known to me who follows up in the office. The patient requests that any further work-up be done in a tertiary care center such as [facility], where he was recently discharged from. In view of the patient's highly complicated case would agree with the patient's request. This will discuss this with Dr. Hannon. I have him make transfer arrangements to [facility]. Hence formal consult not rendered. Will sign off. Will follow at a distance until the patient is transferred to [facility].
[2020-01-07] MEDS: SENNOSIDES/DOCUSATE 8.6-50 MG 1 EACH TABLET PO SCH (21:33)
[2020-01-07] MEDS ORDERED: MELATONIN 5 MG TABLET PO SCH (22:00)
[2020-01-08] MEDS: DIPHENHYDRAMINE HCL 25 MG CAPSULE PO PRN (02:05)
[2020-01-08] MEDS: ALBUTEROL SULFATE HFA (90 MCG/PUFF) 200 PUFF/8.5 GM MDI IH SCH ×4 (03:15→15:23)
[2020-01-08] MEDS: ACETAMINOPHEN 325 MG TABLET PO PRN ×2 (05:11→13:54)
[2020-01-08] MEDS: METOPROLOL TARTRATE PF/INJ 5 MG/5 ML SDV IV SCH ×3 (05:11→17:50)
[2020-01-08] MEDS: APIXABAN 2.5 MG TABLET PO SCH ×2 (09:00→17:51)
[2020-01-08] MEDS: FAMOTIDINE 20 MG TABLET PO SCH (09:00)
[2020-01-08] MEDS: GUAIFENESIN 600 MG TABLET.SA PO SCH (09:00)
[2020-01-08] MEDS: CEFTRIAXONE 2 GM/D5W RTU 2 GM/50 ML RTUPB IV SCH (11:56)
[2020-01-08] MEDS: GUAIFENESIN SYRP 200 MG/10 ML UDC PO PRN ×2 (15:22)
--- NOTE | 2020-01-08 16:34 | PDOC TRANSFER SUMMARY ---
General Admission Date/PCP: 12/27/19 21:50 СВЕТЛАНА WHEELER MD Admission Date: 12/27/19 Transfer Date: 01/08/20 Accepting Facility: [facility] Resuscitation Status: Full Code - Transfer Diagnosis (1) Klebsiella pneumoniae pneumonia Is this a current diagnosis for this admission?: Yes (2) End stage renal disease on dialysis Is this a current diagnosis for this admission?: Yes (3) MRSA (methicillin resistant Staphylococcus aureus) septicemia Is this a current diagnosis for this admission?: Yes (4) Chronic atrial fibrillation Is this a current diagnosis for this admission?: Yes (5) Aortic valve vegetation Is this a current diagnosis for this admission?: Yes (6) Renal mass, right Is this a current diagnosis for this admission?: Yes - Transfer Medications Home Medications: Acetaminophen [Tylenol] 650 mg PO Q6 12/28/19 Albuterol Sulfate [Ventolin 0.083% Neb 2.5 mg/3 ml Ampul] 2.5 mg NEB RTQ8 Amiodarone HCl [Pacerone] 200 mg PO DAILY 12/28/19 Apixaban [Eliquis 2.5 mg Tablet] 2.5 mg PO BID 12/28/19 Calcium Acetate [Phoslo 667 mg Capsule] 1,334 mg PO TID 12/28/19 Cinacalcet HCl [Sensipar 30 mg Tablet] 30 mg PO DAILY 12/28/19 Clonidine HCl [Catapres 0.1 mg Tablet] 0.1 mg PO Q8 12/28/19 Famotidine [Pepcid 20 mg Tablet] 20 mg PO QHS 12/28/19 Ipratropium Kress [Atrovent Hfa] 2 puff IH Q8 12/28/19 Lactulose [Cephulac 20 gm/30 ml Syrup UD Cup] 15 ml PO DAILY 12/28/19 Melatonin/Pyridoxine [Melatonin 5 mg Tablet] 1 each PO QHS 12/28/19 Tramadol HCl [Ultram 50 mg Tablet] 50 mg PO Q6HP PRN 12/28/19 Transfer Medications: Current Medications Acetaminophen (Tylenol 325 Mg Tablet) 650 mg PO Q8HP PRN PRN Reason: PAIN/FEVER Stop: 01/29/20 07:24 Last Admin: 01/08/20 13:54 Dose: 650 mg Documented by: Albuterol (Proair Hfa Inhalation Aerosol 8.5 Gm Mdi) 8 puff IH Q4A [facility] Stop: 01/27/20 11:59 Last Admin: 01/08/20 15:23 Dose: 8 puff Documented by: Apixaban (Eliquis 2.5 Mg Tablet) 2.5 mg PO BID [facility] Stop: 01/27/20 09:59 Last Admin: 01/08/20 09:00 Dose: 2.5 mg Documented by: Diphenhydramine HCl (Benadryl 25 Mg Capsule) 25 mg PO Q6HP PRN PRN Reason: ITCHING Stop: 02/06/20 12:53 Last Admin: 01/08/20 02:05 Dose: 25 mg Documented by: Famotidine (Pepcid 20 Mg Tablet) 20 mg PO DAILY [facility] Stop: 01/27/20 09:59 Last Admin: 01/08/20 09:00 Dose: 20 mg Documented by: Guaifenesin (Robitussin Syrup 200 Mg/10 Ml Ud Cup) 200 mg PO Q4HP PRN PRN Reason: COUGH Stop: 01/27/20 23:36 Last Admin: 01/08/20 15:22 Dose: 200 mg Documented by: Guaifenesin (Mucinex Sr 600 Mg Tablet.Sa) 600 mg PO Q12 [facility] Stop: 02/04/20 14:59 Last Admin: 01/08/20 09:00 Dose: 600 mg Documented by: Ceftriaxone Sodium/Dextrose (Rocephin Rtu 2 Gm/D5w 50 Ml Premix Bag) 2 gm in 50 mls @ 100 mls/hr IV NOON [facility] Stop: 01/13/20 11:59 Last Infusion: 01/08/20 13:51 Dose: Infused Documented by: Vancomycin HCl 750 mg/ (Dextrose) 250 mls @ 166.667 mls/hr IV PDIA [facility] Stop: 01/14/20 17:59 Last Infusion: 01/07/20 19:20 Dose: Infused Documented by: Lactulose (Cephulac Syrup 20 Gm/30 Ml Udcup) 10 gm PO DAILYP PRN PRN Reason: PRN CONSTIPATION Stop: 01/26/20 23:52 Melatonin (Melatonin 5 Mg Tablet) 5 mg PO QHS [facility] Stop: 02/06/20 21:59 Last Admin: 01/07/20 21:33 Dose: 5 mg Documented by: Metoprolol Tartrate (Lopressor Inj/Pf 5 Mg/5 Ml Sdv) 2.5 mg IV Q6 [facility] Stop: 01/26/20 21:59 Last Admin: 01/08/20 11:55 Dose: 2.5 mg Documented by: Polyethylene Glycol (Miralax Powder 17 Gm/Packet) 17 gm PO DAILYP PRN PRN Reason: FOR CONSTIPATION Stop: 01/26/20 23:52 Senna/Docusate Sodium (Senna Plus Tablet) 2 each PO QHS [facility] Stop: 01/27/20 21:59 Last Admin: 01/07/20 21:33 Dose: 2 each Documented by: Sodium Chloride (Saline Flush 2.5 Ml Monoject Prefil Syrin) 2.5 ml IV Q8 [facility] Stop: 01/26/20 21:59 Last Admin: 01/08/20 13:54 Dose: 2.5 ml Documented by: - Allergies Allergies/Adverse Reactions: DRY GAMBRO DIALYZERS Allergy (Unknown, Uncoded 06/22/18 04:07) "BP drop, vomiting" PAPER TAPE Allergy (Uncoded 06/22/18 04:07) Rash Hospital Course Hospital Course: Patient 59-year-old male with end-stage renal disease on maintenance he modialysis, He was initially admitted on October 10, 2019 when he presented with right flank pain, He has been in the healthcare system since that date.He was found to have a large renal mass and a lytic lesion in lumbar vertebra 1 at that time he was also found to have MRSA bacteremia this was complicated with mitral valve endocarditis with vegetation and also septic discitis,C2,C3.He was transfe rred to [facility] where he underwent decompression surgery, he was transferred back on daptomycin for his MRSA septicemia the end date for daptomycin is 01/09/2020. He came back to us [facility] and rehabilitation the plan was for him to follow-up with [facility] urology for the right kidney mass suspicious for a malignant lesion.He was readmitted on December 27, 2019 from the correction when he presented with bilateral groundglass opacities suggestive of pneumonia, COVID-19 was suspected because patient was presently in the correction undergoing rehabilitation, he was admitted in isolation intensive care unit, he never required mechanical ventilation, is breathing was supported nasal cannula oxygen therapy and he maintained adequate arterial oxygenation. The initial SARS-CoV 2 PCR test was negative, the district captain raised the likelihood of a false negative test because of the mode of presentation, the sputum culture was posi tive for Klebsiella this was initially treated with intravenous Levaquin, the Klebsiella was sensitive to all antibiotic.Because of the concern raised regarding possible false negative test he underwent a second PCR test for SARS-CoV-2 again it was negative for SARS-CoV-2 suggesting that .he does not have COVID.A transthoracic echocardiogram was done, it demonstrated a moderate sized vegetation or mass on the posterior leaflet of the mitral valve, it measured 1.3 x 1.4 cm creating aortic valve stenosis also found was a small vegetation on the tricuspid valve, the vegetation of the mitral valve was not appreciated on the TTE because of the initial concern SARS-CoV-2 a NEWTON was not immediately done. 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 ID recommended that the antibiotic be changed from daptomycin to vancomycin. She also recommended that the intravenous Levaquin be changed to intravenous ceftriaxone but because of this moderate size vegetation on the aortic valve there was a consensus among the providers that patient is best in tertiary care with cardiothoracic service.He also had MRI of the cervical spine that was recommended by a neurosurgeon in [facility] when he left the facility, the MRI demonstrated normal alignment of the spine heterogeneous appearance of C2 vertebral body as before there was heterogeneous erosion which may be progressive. Mild endplate changes at C3-C4 There was slight marrow edema at C2.Patient is being transferred to [facility] especially because we do not have cardiothoracic surgery in this facility patient need to have this service in light of the moderate sized vegetation on the aortic valve. Physical Exam Vital Signs: Temp Pulse Resp BP Pulse Ox 97.5 F 89 22 H 125/54 L 100 01/08/20 11:31 01/08/20 14:00 01/08/20 11:31 01/08/20 11:31 01/08/20 11:31 Intake & Output 01/07/20 01/08/20 01/09/20 06:59 06:59 06:59 Intake Total 530 1218 50 Output Total 1900 Balance 530 -752 50 Weight 82.6 kg 81.8 kg General appearance: PRESENT: no acute distress Eye exam: PRESENT: PERRLA Respiratory exam: PRESENT: wheezes Cardiovascular exam: PRESENT: +S1, +S2 GI/Abdominal exam: PRESENT: soft Neurological exam: PRESENT: alert Results Laboratory Results: 01/07/20 04:50 01/07/20 04:50 01/05/20 18:00 Throat Throat Culture - Final C.albicans/C.dubliniensis Greatly Reduced Normal Talia 12/27/19 18:55 Troponin I 0.093 Impressions: Chest CT 01/02/20 00:00 IMPRESSION: 1. BILATERAL PLEURAL EFFUSIONS. EXTENSIVE DIFFUSE GROUND-GLASS OPACITIES THROUGHOUT BOTH LUNGS MAY BE DUE TO MULTIFOCAL PNEUMONIA AND/OR PULMONARY EDEMA. 2. RIGHT AXILLARY ADENOPATHY APPEARS UNCHANGED. MEDIASTINAL ADENOPATHY IS SLIGHTLY WORSE. Cervical Spine MRI 01/03/20 09:00 IMPRESSION: 1. Changes C2, chronic. This C2 changes may be progressive, however with slightly more marrow edema compared to October. Differential is unchanged and includes tumor and infectious/ inflammatory etiology. 2. C3-4 endplate changes are fairly unchanged. Chest X-Ray 01/04/20 00:00 IMPRESSION: STABLE APPEARANCE OF THE CHEST.
[2020-01-08 20:42] VITALS: BP 118/50
== END 2020-01-08 21:15 | disposition short-term general hospital (02) | DRG 177 ==
LOC: ER 17:03 → EH 21:50 → ICU 12-28 00:33 → 5 12-28 13:57 → 3W 12-30 09:35 → 5 01-05 16:51 → 3S 01-06 16:27
PROVIDERS: ADMIT Internal Medicine; ATTEND Internal Medicine
PROC: 5A1D70Z Performance of Urinary Filtration, Intermittent, Less than 6 Hours Per Day (ICD-10-PCS; principal; 2019-12-29)
DX: J15.0 Pneumonia due to Klebsiella pneumoniae (principal); J96.01 Acute respiratory failure with hypoxia; N18.6 End stage renal disease; M86.20 Subacute osteomyelitis, unspecified site; R78.81 Bacteremia; I12.0 Hypertensive chronic kidney disease with stage 5 chronic kidney disease or end stage renal disease; I48.20 Chronic atrial fibrillation, unspecified; E87.1 Hypo-osmolality and hyponatremia; J44.0 Chronic obstructive pulmonary disease with (acute) lower respiratory infection; D63.1 Anemia in chronic kidney disease; A49.02 Methicillin resistant Staphylococcus aureus infection, unspecified site; I35.0 Nonrheumatic aortic (valve) stenosis; M19.90 Unspecified osteoarthritis, unspecified site; L40.9 Psoriasis, unspecified; F41.1 Generalized anxiety disorder; F40.240 Claustrophobia; D41.01 Neoplasm of uncertain behavior of right kidney; I34.8 Other nonrheumatic mitral valve disorders; I51.7 Cardiomegaly; R53.81 Other malaise; I89.0 Lymphedema, not elsewhere classified; E66.9 Obesity, unspecified; R51 Headache; Z79.01 Long term (current) use of anticoagulants; Z79.899 Other long term (current) drug therapy; Z99.2 Dependence on renal dialysis; Z98.1 Arthrodesis status; Z91.048 Other nonmedicinal substance allergy status; Z91.09 Other allergy status, other than to drugs and biological substances; Z86.718 Personal history of other venous thrombosis and embolism; Z87.891 Personal history of nicotine dependence; Z83.42 Family history of familial hypercholesterolemia; Z82.49 Family history of ischemic heart disease and other diseases of the circulatory system; Z03.818 Encounter for observation for suspected exposure to other biological agents ruled out; Z68.28 Body mass index [BMI] 28.0-28.9, adult
CPT/HCPCS: 36415; 36600; 71045; 71046; 71250; 72141; 80048; 80053; 82607; 82728; 82746; 82803; 82962; 83540; 83550; 83615; 83735; 84100; 84145; 84484; 85025; 85027; 85045; 85379; 86140; 87040; 87070; 87077; 87101; 87186; 87205; 87252; 87635; 87804; 87880; 93005; 93010; 93306; 94667; 94668; 94799; 96374; 99233; 99291; 99292; J0696; J0878; J1644; J1956; J2060; J2270; J3370; J3490; J7060; Q5105

== ENCOUNTER 2020-08-25 09:10 | Emergency (ER) | payer MEDICARE ==
--- NOTE | 2020-08-25 09:34 | ER Document Report ---
ED General - General Chief Complaint: Flank Pain Stated Complaint: FLANK PAIN Time Seen by Provider: 08/25/20 09:33 Primary Care Provider: СВЕТЛАНА WHEELER MD [Primary Care Provider] - Follow up in 3-5 days TRAVEL OUTSIDE OF THE [place] IN LAST 30 DAYS: No - HPI Notes: 59-year-old male with past medical history for right kidney mass, end-stage renal disease on hemodialysis every Friday, Friday, Friday, chronic right upper extremity edema to the emergency department with complaints of right flank pain that is been going on for about 1 week. He states that he followed up with [facility] who did his right nephrectomy and they told him to take ibuprofen. He states that does help with his pain but he was concerned because it continues to occur. Denies any chest pain, shortness of breath, nausea, vomiting, diarrhea. He does not make urine. He has been on dialysis under the care of Dr. Benson for 11 years. He currently has an access to his right upper chest and is plann ing to see vascular surgery for placement of another access in his left upper arm in the next coming months. He did have an access in his right upper arm, but it has not been used for two years due to edema. States the right arm is at its baseline edema currently. Denies fevers, chills, or any other complaints. He states the pain seems to get worse with movement. He was supposed to sit for his dialysis this morning at 9:15 am but came to the ER instead. - Related Data Allergies/Adverse Reactions: DRY GAMBRO DIALYZERS Allergy (Unknown, Uncoded 08/25/20 10:10) "BP drop, vomiting" PAPER TAPE Allergy (Unknown, Uncoded 08/25/20 10:09) Rash Past Medical History - General Information source: Patient - Social History Smoking Status: Former Smoker Frequency of alcohol use: None Drug Abuse: None Family History: Hyperlipidemia, Hypertension - Past Medical History Cardiac Medical History: Reports: Hx Atrial Fibrillation - on Eliquis, Hx Congestive Heart Failure, Hx DVT, Hx Hypercholesterolemia, Hx Hypertension, Hx Heart Murmur Denies: Hx Coronary Artery Disease, Hx Heart Attack Pulmonary Medical History: Reports: Hx Asthma, Hx COPD Denies: Hx Bronchitis, Hx Pneumonia Neurological Medical History: Denies: Hx Cerebrovascular Accident, Hx Seizures Renal/ Medical History: Reports: Hx End Stage Renal Disease - On dialysis since 2006, Hx Hemodialysis. Denies: Hx Peritoneal Dialysis Musculoskeletal Medical History: Reports Hx Arthritis - "DAMAGED NERVE TO RIGHT LEG" Skin Medical History: Reports Hx Psoriasis Psychiatric Medical History: Denies: Hx Depression Infectious Medical History: Reports: Hx MRSA - Bacteremia. Denies: Hx C-Diff, Hx HIV, Hx VRE Past Surgical History: Reports: Hx Neurologic Surgery - Benign brain tumor removed 2010, Hx Vascular Surgery - Right IJ and L IJ permacaths, RUE AV fistula, Other - C3-C4 laminectomy, decompression and posterior fusion, November 18, 2019 - Immunizations Hx Diphtheria, Pertussis, Tetanus Vaccination: Yes Hx Pneumococcal Vaccination: 02/07/16 Review of Systems - Review of Systems Constitutional: Chills, Fever EENT: No symptoms reported Cardiovascular: denies: Chest pain, Palpitations, Heart racing, Orthopnea, Dizziness, Lightheaded Respiratory: denies: Cough, Short of breath Gastrointestinal: denies: Diarrhea, Nausea, Vomiting Genitourinary: See HPI, Flank pain. denies: Frequency Male Genitourinary: No symptoms reported Musculoskeletal: No symptoms reported Skin: No symptoms reported Hematologic/Lymphatic: No symptoms reported Neurological/Psychological: No symptoms reported -: Yes All other systems reviewed and negative Physical Exam - Vital signs Vitals: Temp Pulse Resp BP Pulse Ox 97.6 F 73 16 173/100 H 99 08/25/20 09:21 1820 09:21 08/25/20 09:21 08/25/20 09:21 08/25/20 09:21 Interpretation: Hypertensive - Notes Notes: PHYSICAL EXAMINATION: GENERAL: Well-appearing, well-nourished and in no acute distress. HEAD: Atraumatic, normocephalic. EYES: Pupils equal round and reactive to light, extraocular movements intact, sclera anicteric, conjunctiva are normal. ENT: nares patent, oropharynx clear without exudates. Moist mucous membranes. NECK: Normal range of motion, supple without lymphadenopathy LUNGS: Breath sounds clear to auscultation bilaterally and equal. No wheezes rales or rhonchi. Vascular access for hemodialysis to the right upper chest HEART: Regular rate and rhythm without murmurs ABDOMEN: Soft, nontender, normoactive bowel sounds. No guarding, no rebound. No masses appreciated. Mild tenderness to palpation over the right side of the low back, no TTP over the CVA region. EXTREMITIES: Normal range of motion, no pitting or edema. No cyanosis. Patient is able to twist and turn in his back with minimal pain. He is able to ambulate without any difficulties. Noted right upper extremity edema. This is his baseline and has been so for the past 2 years. NEUROLOGICAL: No focal neurological deficits. Moves all extremities spontaneously and on command. PSYCH: Normal mood, normal affect. SKIN: Warm, Dry, normal turgor, no rashes or lesions noted. Course - Re-evaluation Re-evalutation: 08/25/20 16:33 After several attempts, finally able to get CMP back. Noted hyperkalemia. Patient with no CP, SOB, leg swelling. I discussed this result with Dr. Bates. Agrees with the plan for kayexalate, calcium gluconate, insulin, D50 (since patient's initial glucose was 71). We will repeat potassium after he gets all these meds. He has gotten himself a chair for dialysis tomorrow at 11 am. Progress: Was able to get down patient's potassium to 5.8. He did have control of his flank pain with Percocet. We were not able to give him insulin to help with the hyperkalemia because despite feeding him and giving him D50 he continued to have lower end blood sugar. He has a chair for dialysis tomorrow and he would like to be discharged and he will go to dialysis tomorrow. Have encouraged him to follow-up with his primary care physician, [facility], and go to dialysis without fail. I have also encouraged him to return if he is worse at all. Patient agrees with the plan. - Vital Signs Vital signs: Temp Pulse Resp BP Pulse Ox 97.3 F 74 18 174/107 H 99 08/25/20 20:39 08/25/20 13:00 08/25/20 19:01 08/25/20 20:24 08/25/20 20:01 - Laboratory Results Result Diagrams: 08/25/20 09:55 08/25/20 19:09 Laboratory Results Interpreted: 08/25/20 08/25/20 08/25/20 09:55 15:09 17:30 RBC 4.32 L Hgb 12.2 L Hct 37.2 L RDW 22.5 H Plt Count 125 L Potassium 6.3 H* Chloride 97 L BUN 52 H Creatinine 13.71 H Est GFR ( Amer) 4 L Est GFR (MDRD) Non-Af 4 L Glucose 71 L POC Glucose 61 L Direct Bilirubin 0.6 H Total Protein 9.4 H 08/25/20 19:09 RBC Hgb Hct RDW Plt Count Potassium 5.8 H Chloride 97 L BUN 54 H Creatinine 13.81 H Est GFR ( Amer) 4 L Est GFR (MDRD) Non-Af 4 L Glucose POC Glucose Direct Bilirubin Total Protein Critical Laboratory Results Reviewed: Yes Attending or Supervising Physician who Reviewed Labs: KIAN BATES - Radiology Results Critical Radiology Results Reviewed: No Critical Results - EKG Interpretation by Me Additional EKG results interpreted by me: 08/25/20 63 Rhythm sinus Interpretation: No STEMI, n T wave inversion in 1 aVL and V6 which are not new from prior. No significance from prior on 12/27/2019 Discharge - Discharge Clinical Impression: Right flank pain, ESRD (end stage renal disease), Hyperkalemia Hypertension Qualifiers: Hypertension type: essential hypertension Qualified Code(s): I10 - Essential (primary) hypertension Condition: Stable Disposition: HOME, SELF-CARE Additional Instructions: Please follow-up with dialysis tomorrow at 11 AM as scheduled. Return if you have worsening symptoms such as chest pain, shortness of breath, any other concerns. Prescriptions: Oxycodone HCl/Acetaminophen [Percocet 5-325 mg Tablet] 1 tab PO Q6H PRN #12 tablet PRN Reason: Referrals: СВЕТЛАНА WHEELER MD [Primary Care Provider] - Follow up in 3-5 days
[2020-08-25] MEDS ORDERED: HYDROCODONE/ACETAMINOPHEN 5-325 MG TABLET PO ONE (10:45)
[2020-08-25 10:47] LABS: ABSOLUTE BASOPHILS # (AUTO) 0.1 10^3/uL (0.0-0.2); ABSOLUTE EOSINOPHILS # (AUTO) 0.3 10^3/uL (0.0-0.6); ABSOLUTE MONOCYTES (AUTO) 0.4 10^3/uL (0.1-1.4); BASOPHILS % (AUTO) 1.4 % (0-2); EOSINOPHILS % (AUTO) 5.6 % (0-6); HEMATOCRIT 37.2 % (37.9-51.0); HEMOGLOBIN 12.2 g/dL (13.5-17.0); LYMPHOCYTES % (AUTO) 21.5 % (13-45); MEAN CORPUSCULAR HEMOGLOBIN 28.2 pg (27.0-33.4); MEAN CORPUSCULAR HGB CONC 32.7 g/dL (32.0-36.0); MEAN CORPUSCULAR VOLUME 86 fl (80-97); MONOCYTES % (AUTO) 9.4 % (3-13); PLATELET COUNT 125 10^3/uL (150-450); RED BLOOD COUNT 4.32 10^6/uL (4.35-5.55); RED CELL DISTRIBUTION WIDTH 22.5 % (11.5-14.0); SEGMENTED NEUTROPHILS % (AUTO) 62.1 % (42-78); TOTAL CELLS COUNTED % (AUTO) 100 %; WHITE BLOOD COUNT 4.8 10^3/uL (4.0-10.5)
[2020-08-25] MEDS ORDERED: OXYCODONE-ACETAMINOPHEN 5-325 MG TABLET PO ONE ×2 (13:08→18:04)
[2020-08-25 16:09] LABS: ALBUMIN 4.7 g/dL (3.5-5.0); ALKALINE PHOSPHATASE 65 U/L (38-126); ANION GAP 19 (5-19); ASPARTATE AMINO TRANSFERASE 23 U/L (17-59); BILIRUBIN,DIRECT 0.6 mg/dL (0.0-0.4); BILIRUBIN,TOTAL 0.8 mg/dL (0.2-1.3); BLOOD UREA NITROGEN 52 mg/dL (7-20); CALCIUM 9.5 mg/dL (8.4-10.2); CARBON DIOXIDE 22 mmol/L (22-30); CHLORIDE 97 mmol/L (98-107); GLUCOSE 71 mg/dL (75-110); TOTAL PROTEIN 9.4 g/dL (6.3-8.2)
[2020-08-25 16:16] LABS: POTASSIUM 6.3 mmol/L (3.6-5.0)
[2020-08-25] MEDS ORDERED: SODIUM POLYSTYRENE SULFONATE 15 GM/60 ML PO ONE (16:18)
[2020-08-25] MEDS ORDERED: DEXTROSE 50%-WATER 25 GM/50 ML DISP.SYRIN IV ONE (16:19)
[2020-08-25] MEDS ORDERED: CALCIUM GLUCONATE 1000 MG/10 ML INJ IV ONE (16:19)
[2020-08-25] MEDS ORDERED: INSULIN REG, HUMAN 100 UNIT/ML 3 ML VIAL (PYX) IV ONE (16:20)
[2020-08-25] MEDS ORDERED: CLONIDINE HCL 0.1 MG TABLET PO ONE (18:04)
[2020-08-25 19:48] LABS: ANION GAP 17 (5-19); BLOOD UREA NITROGEN 54 mg/dL (7-20); CALCIUM 9.6 mg/dL (8.4-10.2); CARBON DIOXIDE 24 mmol/L (22-30); CHLORIDE 97 mmol/L (98-107); GLUCOSE 88 mg/dL (75-110); POTASSIUM 5.8 mmol/L (3.6-5.0)
[2020-08-25] MEDS ORDERED: ONDANSETRON 4 MG TAB.RAPDIS PO ONE (20:11)
[2020-08-25 20:39] VITALS: BP 174/107
--- NOTE | 2020-08-26 17:20 | EKG REPORT ---
SEVERITY:- ABNORMAL ECG - SINUS RHYTHM PROBABLE LEFT ATRIAL ABNORMALITY LEFT BUNDLE BRANCH BLOCK : Confirmed by: Amanda Dumont MD 26-Aug-2020 17:19:42
== END 2020-08-25 20:39 | disposition home or self-care (01) ==
LOC: ER 09:10
DX: E87.5 Hyperkalemia (principal); R10.9 Unspecified abdominal pain; I13.2 Hypertensive heart and chronic kidney disease with heart failure and with stage 5 chronic kidney disease, or end stage renal disease; N18.6 End stage renal disease; R60.9 Edema, unspecified; I50.9 Heart failure, unspecified; Z99.2 Dependence on renal dialysis; I48.91 Unspecified atrial fibrillation; Z79.01 Long term (current) use of anticoagulants; Z86.14 Personal history of Methicillin resistant Staphylococcus aureus infection; Z86.718 Personal history of other venous thrombosis and embolism
CPT/HCPCS: 93005; 99284; 96374; 96375; 36415; 82962; 85025; 80053; 93010; J0610; A9270 ×4; J3490

== ENCOUNTER 2020-08-28 09:03 | Emergency (ER) | payer MEDICARE ==
--- NOTE | 2020-08-28 10:09 | ER Document Report ---
ED GI/ - General Chief Complaint: Flank Pain Stated Complaint: RIGHT FLANK PAIN Time Seen by Provider: 08/28/20 09:35 Primary Care Provider: СВЕТЛАНА WHEELER MD [Primary Care Provider] - Follow up as needed Mode of Arrival: Ambulatory Information source: Patient Notes: 59-year-old man who has a history of end-stage renal disease recent excision of the right kidney due to a mass. The nephrectomy site is well-healed, the patient has been in the emergency department 3 days ago with a complaint of right flank pain. He also is a dialysis patient and his session for dialysis is being scheduled for tomorrow due to his emergency department visit today regarding pain. Patient states he called his doctor who did the surgery and was told that he could take Tylenol ibuprofen for pain patient states he gets about 1 hour of pain relief from the ibuprofen. His evaluation in the emergency department was limited. He denies fever or associated GI symptoms. He also denies any injury that might have exacerbated the pain. TRAVEL OUTSIDE OF THE [place] IN LAST 30 DAYS: No - Related Data Allergies/Adverse Reactions: DRY GAMBRO DIALYZERS Allergy (Unknown, Uncoded 08/25/20 10:10) "BP drop, vomiting" PAPER TAPE Allergy (Unknown, Uncoded 08/25/20 10:09) Rash Past Medical History - Social History Smoking Status: Unknown if Ever Smoked Family History: Hyperlipidemia, Hypertension - Past Medical History Cardiac Medical History: Reports: Hx Atrial Fibrillation - on Eliquis, Hx Congestive Heart Failure, Hx DVT, Hx Hypercholesterolemia, Hx Hypertension, Hx Heart Murmur Denies: Hx Coronary Artery Disease, Hx Heart Attack Pulmonary Medical History: Reports: Hx Asthma, Hx COPD Denies: Hx Bronchitis, Hx Pneumonia Neurological Medical History: Denies: Hx Cerebrovascular Accident, Hx Seizures Renal/ Medical History: Reports: Hx End Stage Renal Disease - On dialysis since 2006, Hx Hemodialysis. Denies: Hx Peritoneal Dialysis Musculoskeletal Medical History: Reports Hx Arthritis - "DAMAGED NERVE TO RIGHT LEG" Skin Medical History: Reports Hx Psoriasis Psychiatric Medical History: Denies: Hx Depression Infectious Medical History: Reports: Hx MRSA - Bacteremia. Denies: Hx C-Diff, Hx HIV, Hx VRE Past Surgical History: Reports: Hx Neurologic Surgery - Benign brain tumor removed 2010, Hx Vascular Surgery - Right IJ and L IJ permacaths, RUE AV fistula, Other - C3-C4 laminectomy, decompression and posterior fusion, November 18, 2019 - Immunizations Hx Diphtheria, Pertussis, Tetanus Vaccination: Yes Hx Pneumococcal Vaccination: 02/07/16 Review of Systems - Review of Systems Notes: Constitutional: Negative for fever. HENT: Negative for sore throat. Eyes: Negative for visual changes. Cardiovascular: Negative for chest pain. Respiratory: Negative for shortness of breath. Gastrointestinal: Negative for abdominal pain, vomiting or diarrhea. Genitourinary: Negative for dysuria. Musculoskeletal: See HPI Skin: Negative for rash. Neurological: Negative for headaches, weakness or numbness. 10 point ROS negative except as marked above and in HPI. Physical Exam - Vital signs Vitals: Temp Pulse Resp BP Pulse Ox 97.5 F 87 16 186/104 H 99 08/28/20 09:08 08/28/20 09:08 08/28/20 09:08 08/28/20 09:08 08/28/20 09:08 - Notes Notes: PHYSICAL EXAMINATION: Physical Exam: General: Well-nourished well-developed 59-year-old male in no acute distress HEENT: NC/AT, pupils equal round and reactive to light, MM moist,nares clear, oropharynx clear, airway patent Neck: supple, no adenopathy, no masses. Good range of motion Lungs: clear, no wheezing, no rales no rhonchi CVS: Regular rate and rhythm no murmur gallop or rub Abdomen: Soft, active, nontender, no masses, no hepatosplenomegaly Musculoskeletal: + Tenderness in the right flank area, right lateral aspect of the back. Ext: No edema, clubbing or cyanosis. Neuro: Alert and responsive, moving all 4 extremities on command, cranial nerves intact, no focal findings Skin: Intact no open lesions, no rash PSYCH: Normal mood, normal affect. Course - Re-evaluation Re-evalutation: 08/28/20 13:27 I discussed the findings of the CT scan with the patient explained that there are new bone lytic lesion noted on the CT scan. These areas of lytic change may be related to the kidney tumor that was removed. And these areas may represent a metastasis of the renal disease. The patient was given a copy of the report and told to follow-up with his urologist and primary care doctor for possible referral for oncology and radiation therapy. He was given a Dosepak of mary Moncada of 6 tablets in the emergency department. Of also asked him to see his doctor regarding long-term management of the pain. - Vital Signs Vital signs: Temp Pulse Resp BP Pulse Ox 97.2 F 87 13 195/124 H 96 08/28/20 13:31 08/28/20 09:08 08/28/20 13:31 08/28/20 13:31 08/28/20 13:31 - Laboratory Results Result Diagrams: 08/28/20 10:09 08/28/20 10:09 Laboratory Results Interpreted: 08/28/20 08/28/20 10:09 10:09 Hgb 12.7 L RDW 22.9 H Plt Count 113 L Eos % (Auto) 6.3 H Potassium 5.5 H Chloride 95 L BUN 51 H Creatinine 15.21 H Est GFR ( Amer) 4 L Est GFR (MDRD) Non-Af 3 L Direct Bilirubin 0.5 H Total Protein 8.6 H Critical Laboratory Results Reviewed: No Critical Results - BUN and creatinine are elevated, and the potassium is slightly elevated, patient is a dialysis patient is scheduled for dialysis tomorrow. - Radiology Results Radiology Results Interpreted: 08/29/20 13:31 Abdomen/Pelvis CT 08/28/20 10:14 IMPRESSION: 1. Status post right nephrectomy. There is no evidence of local recurrence. 2. New lytic lesions within the T11 and L4 vertebral bodies (image 41 of series 602). The lytic lesion along the superior endplate of the L1 vertebral body is unchanged. Critical Radiology Results Reviewed: Yes Attending or Supervising Physician who Reviewed Radiology: KIAN BATES Discharge - Discharge Clinical Impression: Right flank pain, Lytic lesion of bone on x-ray Condition: Good Disposition: HOME, SELF-CARE Additional Instructions: You were seen in the emergency department today with right flank pain and a CT scan that was performed revealed new bony lesions on the right side. Please share the report with your primary care doctor and your urologist. You are given a prescription for medication for pain. Please take the medication as prescribed. Please drink plenty of water while taking these medications. Please follow-up with your doctor as instructed. HOME CARE INSTRUCTIONS & INFORMATION: Thank you for choosing us for your medical needs. We hope you're satisfied with the care you received. After you leave, you must properly care for your problem and, at the same time, observe its progress. Any condition can change. Some illnesses can change rapidly over hours or days. If your condition worsens, return to the Emergency Department or see your physician promptly. ABOUT YOUR X-RAYS AND EKG'S: If you had an EKG or X-rays taken, they have been read by the Emergency Physician. The X-rays and EKG's will also be read by a Radiologist or Analysis Evaluator within 24 hours. If discrepancies are noted, you will be notified by telephone. Please be certain the ED has a correct telephone number & address where you can be reached. Also, realize that some fractures or abnormalities do not show up on initial X-rays. If your symptoms continue, see your physician. ABOUT YOUR LABORATORY TEST: If you had laboratory tests, the results have been reviewed by the Emergency Physician. Some test results (for example cultures) may not be available for several days. You will be contacted if any test result shows you need additional treatment. Please be certain the ED has a correct telephone number and address where you can be reached. ABOUT YOUR MEDICATIONS: You will receive instructions on how to take your medicine on the prescription label you receive. Additional information may be provided by the Pharmacy. If you have questions afterwards, call the ED for clarification or further instructions. Some prescribed medications may cause drowsiness. Do not perform tasks such as driving a car or operating machinery without consulting your Pharmacist. If you feel you need a refill of pain medication, your condition will need re-evaluation. Please do not call for a refill of any medication. ABOUT YOUR SIGNATURE: Signature of this document acknowledges to followin. Understanding that you received emergency treatment and that you may be released before al medical problems are known or treated. Please be certain the ED has a correct phone number & address where you can be reached. 2. Acknowledgement that you will arrange for follow-up care as recommended. 3. Authorization for the Emergency Physician to provide information to your follow-up Physician in order to maximize your care. AT ANY TIME, IF YOUR SYMPTOMS CHANGE SIGNIFICANTLY OR WORSEN OR YOU DEVELOP NEW SYMPTOMS, RETURN TO THE EMERGENCY DEPARTMENT IMMEDIATELY FOR RE-EVALUATION. OUR GOAL IS TO PROVIDE EXCELLENT MEDICAL CARE! WE HOPE THAT WE HAVE MET YOUR EXPECTATIONS DURING YOUR EMERGENCY DEPARTMENT VISIT AND THAT YOU FEEL YOU HAVE RECEIVED EXCELLENT CARE! Prescriptions: Hydrocodone/Acetaminophen [[place] 5-325 mg Tablet] 1 tab PO Q6 PRN #10 tablet PRN Reason: Referrals: СВЕТЛАНА WHEELER MD [Primary Care Provider] - Follow up as needed
[2020-08-28 10:32] LABS: ABSOLUTE BASOPHILS # (AUTO) 0.1 10^3/uL (0.0-0.2); ABSOLUTE EOSINOPHILS # (AUTO) 0.3 10^3/uL (0.0-0.6); ABSOLUTE LYMPHOCYTES (AUTO) 0.9 10^3/uL (0.5-4.7); ABSOLUTE MONOCYTES (AUTO) 0.4 10^3/uL (0.1-1.4); ABSOLUTE NEUT (AUTO) 2.6 10^3/uL (1.7-8.2); BASOPHILS % (AUTO) 1.2 % (0-2); EOSINOPHILS % (AUTO) 6.3 % (0-6); HEMATOCRIT 38.4 % (37.9-51.0); HEMOGLOBIN 12.7 g/dL (13.5-17.0); LYMPHOCYTES % (AUTO) 22.3 % (13-45); MEAN CORPUSCULAR HEMOGLOBIN 28.5 pg (27.0-33.4); MEAN CORPUSCULAR VOLUME 86 fl (80-97); PLATELET COUNT 113 10^3/uL (150-450); RED BLOOD COUNT 4.45 10^6/uL (4.35-5.55); RED CELL DISTRIBUTION WIDTH 22.9 % (11.5-14.0); SEGMENTED NEUTROPHILS % (AUTO) 61.2 % (42-78); TOTAL CELLS COUNTED % (AUTO) 100 %; WHITE BLOOD COUNT 4.3 10^3/uL (4.0-10.5)
[2020-08-28 10:54] LABS: ALBUMIN 4.4 g/dL (3.5-5.0); ALKALINE PHOSPHATASE 64 U/L (38-126); ANION GAP 18 (5-19); ASPARTATE AMINO TRANSFERASE 22 U/L (17-59); BILIRUBIN,DIRECT 0.5 mg/dL (0.0-0.4); BILIRUBIN,TOTAL 0.7 mg/dL (0.2-1.3); BLOOD UREA NITROGEN 51 mg/dL (7-20); CALCIUM 9.2 mg/dL (8.4-10.2); CARBON DIOXIDE 26 mmol/L (22-30); CHLORIDE 95 mmol/L (98-107); GLUCOSE 83 mg/dL (75-110); POTASSIUM 5.5 mmol/L (3.6-5.0); TOTAL PROTEIN 8.6 g/dL (6.3-8.2)
--- NOTE | 2020-08-28 11:03 | RADIOLOGY REPORT (SQ) ---
EXAM DESCRIPTION: CT ABD/PELVIS NO ORAL OR IV IMAGES COMPLETED DATE/TIME: 08/28/2020 10:41 am REASON FOR STUDY: Right flank pain/status post right nephrectomy COMPARISON: CT of the abdomen and pelvis without contrast from 10/10/2019. TECHNIQUE: CT scan of the abdomen and pelvis performed without intravenous or oral contrast. Images reviewed with lung, soft tissue, and bone windows. Reconstructed coronal and sagittal MPR images revi ewed. All images stored on PACS. All CT scanners at this facility use dose modulation, iterative reconstruction, and/or weight based d osing when appropriate to reduce radiation dose to as low as reasonably achievable (ALARA). [facility]: Dose Right [facility]: CareDose [facility]: Dose Right [facility]: Teradose 4D [facility]: [employer] RADIATION DOSE: CT Rad equipment meets quality standard of care and radiation dose reduction techniq ues were employed. CTDIvol: 7.1 mGy. DLP: 381 mGy-cm. LIMITATIONS: None. FINDINGS: LOWER CHEST: Stable 5 mm nodule in the right lower lobe (image 8 of series 4). There are aortic and mitral valve prostheses. The left ventricle is enlarged and there is atherosclerotic calc ification of the coronary arteries. There is no pericardial effusion. The ground-glass opacities in the dependent portions of the lower lobes are nonspecific and could represent air trapping. NON-CONTRASTED LIVER, SPLEEN, ADRENALS: Evaluation is limited by the absence of intravenous contrast. There is no evidence hepatic steatosis. The spleen is normal in size. There is no adrenal mass. PANCREAS: No acute gross abnormality of the pancreas. GALLBLADDER: No acute gross abnormality of the gallbladder. RIGHT KIDNEY AND URETER: Surgically absent. There is no evidence of local recurrence. LEFT KIDNEY AND URETER: Evaluation is limited by the absence of intravenous contrast. The kidney is atrophic. There is no hydronephrosis, nephrolithiasis, hydroureter ureterolithiasis. AORTA AND RETROPERITONEUM: No aneurysm of the abdominal aorta. No retroperitoneal adenopathy, hemorr alberta or mass. BOWEL AND PERITONEAL CAVITY: Colonic diverticulosis without diverticulitis. There is no bowel obstru ction, bowel wall thickening or pericolonic/ perienteric inflammation. There is no mesenteric adenop athy, free intraperitoneal fluid or mesenteric/ omental inflammation. APPENDIX: Unable to identify the appendix. There is no pericecal inflammation. PELVIS, BLADDER, AND ABDOMINAL WALL:The urinary bladder is contracted. There is no acute gross abnor mality of the prostate gland. There are varicose vessels in the ventral abdominal wall that extend i nferiorly into the right groin. BONES: There are new lytic lesions within the T11 and L4 vertebral bodies (image 41 of series 602). The lytic lesion along the superior endplate of the L1 vertebral body is unchanged. OTHER: No other findings. IMPRESSION: 1. Status post right nephrectomy. There is no evidence of local recurrence. 2. New lytic lesions within the T11 and L4 vertebral bodies (image 41 of series 602). The lytic lesi on along the superior endplate of the L1 vertebral body is unchanged. COMMENT: Quality ID # [id number]: Final reports with documentation of one or more dose reduction techniques (e.g., Automated exposure control, adjustment of the mA and/or kV according to patient size, use of iterative reconstruction technique) TECHNICAL DOCUMENTATION: JOB ID: [id number] 2010 [employer]- All Rights Reserved Reading location - IP/workstation name: [email or web address]
[2020-08-28] MEDS ORDERED: HYDROCODONE/ACETAMINOPHEN 5-325 MG TABLET PO ONE (12:37)
[2020-08-28] MEDS ORDERED: HYDROCODONE/ACETAMINOPHEN 5-325 MG (6 TAB/ER DISP) PO PRN (13:15)
[2020-08-28 13:37] VITALS: BP 195/124
== END 2020-08-28 13:45 | disposition home or self-care (01) ==
LOC: ER 09:03
DX: R10.9 Unspecified abdominal pain (principal); M89.9 Disorder of bone, unspecified; I13.2 Hypertensive heart and chronic kidney disease with heart failure and with stage 5 chronic kidney disease, or end stage renal disease; N18.6 End stage renal disease; I50.9 Heart failure, unspecified; Z99.2 Dependence on renal dialysis; J44.9 Chronic obstructive pulmonary disease, unspecified; Z90.5 Acquired absence of kidney; Z88.8 Allergy status to other drugs, medicaments and biological substances; Z91.048 Other nonmedicinal substance allergy status
CPT/HCPCS: 99284; 36415; 85025; 80053; 74176; A9270 ×2